=== PATIENT | female | born 1940 | race Caucasian/White ===

== ENCOUNTER 2022-04-14 18:50 | Outpatient (CLI) | payer MEDICARE, OTHER, SELFPAY ==
[2022-04-14 19:52] LABS: Chloride* 100 mmol/L (96-114); Sodium* 134 mmol/L (135-149)
[2022-04-14 19:53] LABS: Potassium* 4.1 mmol/L (3.6-5.1)
[2022-04-14 19:55] LABS: Alanine Aminotransferase* 27 U/L (4-35); Alkaline Phosphatase* 158 U/L (40-150); Aspartate Amino Transferase* 36 U/L (12-35); Bilirubin Total* 0.8 mg/dL (0.1-1.5); Blood Urea Nitrogen* 21 mg/dL (7-30); Carbon Dioxide* 28 mmol/L (20-32); Creatinine* 0.9 mg/dL (0.5-1.5); Estimated Glomerular Filt Rate 64.63; Glucose* 101 mg/dL (60-115); Total Protein* 6.2 g/dL (6.0-8.3)
[2022-04-17 05:49] LABS: Cancer Antigen 125 56 U/mL (<=38)
[2022-04-17 16:12] LABS: Hematocrit 25.9 % (33.0-51.0); Hemoglobin* 8.8 gm/dL (12.0-16.0); Mean Corpuscular HGB Conc 34 gm/dL (32-36); Mean Corpuscular Hemoglobin 44 pg (26-34); Mean Corpuscular Volume 130 fL (80-100); Platelet Count* 246 K/uL (140-440); White Blood Count* 3.37 K/uL (4.50-11.00)
[2022-04-17 16:13] LABS: Basophils Percent Auto 1.8 % (0.0-3.0); Eosinophils Percent Auto 1.2 % (0.0-7.0); Lymphocytes Percent Auto 10.7 % (20-44); Monocytes Percent Auto 12.2 % (0.0-11.0); Neutrophils Percent Auto 74.1 % (42.0-72.0); Slide Review Reflex No
== END 2022-04-14 18:51 | disposition home or self-care (01) ==
DX: C56.9 Malignant neoplasm of unspecified ovary (principal)
CPT/HCPCS: 36415; 80053; 85025; 86304

== ENCOUNTER 2022-07-28 12:20 | Outpatient (RCR) | payer MEDICARE, OTHER, SELFPAY ==
[2022-06-05 13:44] LABS: Albumin* 3.7 g/dL (3.3-5.0); Chloride* 100 mmol/L (96-114); Sodium* 134 mmol/L (135-149)
[2022-06-05 13:46] LABS: Bilirubin Total* 0.6 mg/dL (0.1-1.5); Carbon Dioxide* 27 mmol/L (20-32); Creatinine* 0.7 mg/dL (0.5-1.5); Estimated Glomerular Filt Rate 87 ml/min
[2022-06-05 13:47] LABS: Alanine Aminotransferase* 37 U/L (4-35); Alkaline Phosphatase* 164 U/L (40-150); Aspartate Amino Transferase* 45 U/L (12-35); Blood Urea Nitrogen* 18 mg/dL (7-30); Glucose* 92 mg/dL (60-115); Total Protein* 6.3 g/dL (6.0-8.3)
[2022-06-05 14:00] LABS: Basophils Absolute Auto 0.02 K/uL (0.00-0.30); Basophils Percent Auto 0.4 % (0.0-3.0); Eosinophils Absolute Auto 0.02 K/uL (0.00-0.50); Eosinophils Percent Auto 0.4 % (0.0-7.0); Hematocrit 30.9 % (33.0-51.0); Hemoglobin* 10.1 gm/dL (12.0-16.0); Immature Granulocytes Abs Auto 0.02 K/uL (0.00-0.30); Lymphocytes Percent Auto 6.2 % (20-44); Mean Corpuscular HGB Conc 33 gm/dL (32-36); Mean Corpuscular Hemoglobin 43 pg (26-34); Mean Corpuscular Volume 133 fL (80-100); Monocytes Percent Auto 14.6 % (0.0-11.0); Platelet Count* 263 K/uL (140-440); RDW Coefficient of Variation % 16.1 % (11.5-15.5); Red Blood Count 2.33 m/uL (4.00-5.20)
[2022-06-05 14:02] LABS: Slide Review Reflex No
[2022-06-06 22:27] LABS: Cancer Antigen 125 52 U/mL (<=38)
[2022-07-02 13:37] LABS: Basophils Absolute Auto 0.03 K/uL (0.00-0.30); Basophils Percent Auto 0.6 % (0.0-3.0); Eosinophils Absolute Auto 0.06 K/uL (0.00-0.50); Eosinophils Percent Auto 1.2 % (0.0-7.0); Hematocrit 34.8 % (33.0-51.0); Hemoglobin* 11.4 gm/dL (12.0-16.0); Immature Granulocytes Abs Auto 0.01 K/uL (0.00-0.30); Mean Corpuscular HGB Conc 33 gm/dL (32-36); Mean Corpuscular Hemoglobin 41 pg (26-34); Mean Corpuscular Volume 125 fL (80-100); Monocytes Percent Auto 13.1 % (0.0-11.0); Neutrophils Percent Auto 74.9 % (42.0-72.0); Platelet Count* 241 K/uL (140-440); RDW Coefficient of Variation % 15.8 % (11.5-15.5); Red Blood Count 2.78 m/uL (4.00-5.20); White Blood Count* 4.88 K/uL (4.50-11.00)
[2022-07-02 13:40] LABS: Slide Review Reflex No
[2022-07-02 13:52] LABS: Chloride* 102 mmol/L (96-114); Potassium* 4.2 mmol/L (3.6-5.1); Sodium* 137 mmol/L (135-149)
[2022-07-02 13:54] LABS: Creatinine* 0.6 mg/dL (0.5-1.5); Estimated Glomerular Filt Rate 91 ml/min
[2022-07-02 13:55] LABS: Alanine Aminotransferase* 33 U/L (4-35); Alkaline Phosphatase* 205 U/L (40-150); Aspartate Amino Transferase* 43 U/L (12-35); Bilirubin Total* 0.4 mg/dL (0.1-1.5); Blood Urea Nitrogen* 21 mg/dL (7-30); Carbon Dioxide* 28 mmol/L (20-32); Glucose* 105 mg/dL (60-115); Total Protein* 6.3 g/dL (6.0-8.3)
[2022-07-02 13:56] LABS: Calcium* 9.3 mg/dL (8.4-10.6)
[2022-07-03 19:03] LABS: Cancer Antigen 125 51 U/mL (<=38)
[2022-07-28 12:58] LABS: Albumin* 4.1 g/dL (3.3-5.0)
[2022-07-28 12:59] LABS: Chloride* 102 mmol/L (96-114); Potassium* 4.2 mmol/L (3.6-5.1); Sodium* 137 mmol/L (135-149)
[2022-07-28 13:01] LABS: Alanine Aminotransferase* 29 U/L (4-35); Alkaline Phosphatase* 172 U/L (40-150); Aspartate Amino Transferase* 43 U/L (12-35); Bilirubin Total* 0.5 mg/dL (0.1-1.5); Blood Urea Nitrogen* 24 mg/dL (7-30); Carbon Dioxide* 30 mmol/L (20-32); Cholesterol* 130 mg/dL (90-199); Creatinine* 0.7 mg/dL (0.5-1.5); Estimated Glomerular Filt Rate 87 ml/min; Glucose* 78 mg/dL (60-115); Total Protein* 6.5 g/dL (6.0-8.3); Triglycerides* 58 mg/dL (40-149)
[2022-07-28 13:02] LABS: Calcium* 8.3 mg/dL (8.4-10.6); HDL Cholesterol* 57 mg/dL (>=50); LDL Cholesterol Calculated 61 mg/dL (<100); Magnesium* 1.8 mg/dL (1.5-2.6)
== END 2023-07-03 06:26 | disposition home or self-care (01) ==
LOC: LAB 12:20
DX: C56.9 Malignant neoplasm of unspecified ovary (principal); I10 Essential (primary) hypertension
CPT/HCPCS: 36415; 80048; 80053; 80061; 80076; 83735; 84443; 85025; 86304

== ENCOUNTER 2022-07-28 13:18 | Outpatient (REF) | payer MEDICARE, OTHER, SELFPAY ==
--- OUTSIDE RECORDS SUMMARY | 2022-07-28 13:35 | XMS_ITS | Referral Summary ---
:1940 Author Organization [facility] nter Address [address] [place] [address]- Care Team Providers Name Role Phone Carol Ruff MD Primary Care Physician Encounter EVSA_FIN [id number] Date(s): 11/04/19 - 11/05/19 [facility] [address] [address] [address] [phone] Encounter Diagnosis Embolic stroke (Discharge Diagnosis) - 11/04/19 History of CVA (cerebrovascular accident) (Discharge Diagnosis) - 11/04/19 Popliteal DVT (deep venous thrombosis) (Discharge Diagnosis) - 11/04/19 Hypertension (Discharge Diagnosis) - 11/04/19 Headache in front of head (Discharge Diagnosis) - 11/05/19 Elevated troponin (Discharge Diagnosis) - 11/05/19 Vision changes (Discharge Diagnosis) - 11/05/19 Cerebral infarction due to embolism of unspecified cerebral artery (Discharge Diagnosis) - Metabolic encephalopathy (Discharge Diagnosis) - Chronic embolism and thrombosis of left popliteal vein (Discharge Diagnosis) - Embolism and thrombosis of superficial veins of left lower extremity (Discharge Diagnosis) - Unspecified atrial fibrillation (Discharge Diagnosis) - Migraine, unspecified, not intractable, without status migrainosus (Discharge Diagnosis) - Hyperlipidemia, unspecified (Discharge Diagnosis) - Essential (primary) hypertension (Discharge Diagnosis) - Obstructive sleep apnea (adult) (pediatric) (Discharge Diagnosis) - NIHSS score 0 (Discharge Diagnosis) - Other specified abnormal findings of blood chemistry (Discharge Diagnosis) - Atherosclerotic heart disease of [place] coronary artery without angina pectoris (Discharge Diagnosis) - Presence of right artificial knee joint (Discharge Diagnosis) - Personal history of nicotine dependence (Discharge Diagnosis) - Personal history of transient ischemic attack (TIA), and cerebral infarction without residual deficits (Discharge Diagnosis) - 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 (Discharge Diagnosis) - Discharge Disposition: Home/self care Attending Physician: Aaron Delarosa MD Admitting Physician: Tito Saunders MD Vital Signs Most recent to 1 2 3 4 5 6 7 8 9 oldest [Reference Range]: Living Lives alone Lives alone Lives with children Situation (11/05/19 10:43 AM) (11/05/19 12:15 AM) (11/04/19 8:17 PM) Sensory None None Deficits (11/05/19 12:15 AM) (11/04/19 8:17 PM) Eating Self (11/05/19 12:15 AM) Bathing Self (11/05/19 12:15 AM) Dressing Self (11/05/19 12:15 AM) Transferring Self (11/05/19 12:15 AM) Toileting Self (11/05/19 12:15 AM) Walking Self (11/05/19 12:15 AM) Balancing Self (11/05/19 12:15 AM) Bed alarm on No No (11/05/19 12:57 PM) (11/05/19 8:00 AM) Pain Scale Used Numeric Rating Scale Numeric Rating Scale Numeric Rat ing Scale (11/05/19 12:57 PM) (11/05/19 8:00 AM) (11/04/19 8:17 PM) Face NVPS 1 = Occasional grimace, tearing, frowning, wrinkled forehead (11/05/19 8:00 AM) Temperature PO 36.7 deg C 37 deg C 36.9 deg C 36.6 deg C [36-37.5 deg C] (11/05/19 8:05 AM) (11/05/19 3:05 AM) (11/05/19 12:15 AM) (11/04/19 8:17 PM) Heart Rate 91 bpm 90 bpm 89 bpm 82 bpm 80 bpm 86 bpm 80 bpm 82 bpm 79 bpm [51-119 bpm] (11/05/19 5:00 PM) (11/05/19 11:00 AM) (11/05/19 8:05 AM) ( 3:05 AM) (11/05/19 12:15 AM) (11/04/19 11:00 PM) (11/04/19 10:00 PM) (11/04/19 9:00 PM) (11/04/19 8:17 PM) Blood Pressure 148/90 mm Hg 148/80 mm Hg 153/82 mm Hg 146/82 mm Hg 150 /85 mm Hg 148/60 mm Hg 156/81 mm Hg 158/81 mm Hg 159/88 mm Hg [91-139/50-90 *H* *H* *H* *H* *H* *H* *H* *H* *H* mm Hg] (11/05/19 5:00 PM) (11/05/19 11:00 AM) (11/05/19 8:05 AM) ( 0 3:05 AM) (11/05/19 12:15 AM) (11/04/19 11:00 PM) (11/04/19 10:00 PM) (11/04/19 9:00 PM) (11/04/19 8:17 PM) Resp Rate 16 Breaths/Min 16 Breaths/Min 16 Breaths/Min 18 Breaths/Mi n 18 Breaths/Min 16 Breaths/Min 18 Breaths/Min 16 Breaths/Min 16 Breaths/Min (Monitor) (11/05/19 5:00 PM) (11/05/19 11:00 AM) (11/05/19 8:05 AM) ( 0 3:05 AM) (11/05/19 12:15 AM) (11/04/19 11:00 PM) (11/04/19 10:00 PM) (11/04/19 9:00 PM) (11/04/19 8:17 PM) [13-20 Breaths/Min] SPO2 [87-100 %] 98 % 98 % 98 % 98 % 96 % 97 % 99 % 98 % 9 7 % (11/05/19 5:00 PM) (11/05/19 11:00 AM) (11/05/19 8:05 AM) ( 0 3:05 AM) (11/05/19 12:15 AM) (11/04/19 11:00 PM) (11/04/19 10:00 PM) (11/04/19 9:00 PM) (11/04/19 8:1 7 PM) Oxygen Method Room air Room air (11/05/19 5:00 PM) (11/05/19 11:00 AM) Glucose Level 96 mg/dL [70-99 mg/dL] (11/04/19 8:14 PM) Glucose (POCT) 87 mg/dL 1 Automated (11/04/19 7:59 PM) [70-110 mg/dL] Height 165 cm 165.1 cm (11/05/19 12:15 AM) (11/04/19 8:17 PM) Drug Calc 72.9 kg 73 kg Weight (kg) (11/05/19 12:15 AM) (11/04/19 8:17 PM) Weight Method Actual Actual (11/05/19 12:15 AM) (11/04/19 8:17 PM) BMI 26.78 kg/m2 26.78 kg/m2 (11/05/19 12:15 AM) (11/04/19 8:17 PM) 1Result Comment: Manager Banquet: [id number] FRANCINE VALERA Problem List Condition Effective Dates Status Health Status Informant Stroke(Confirmed) Active Acute embolic stroke(Confirmed) Active Shingles(Confirmed) Active Elevated troponin(Confirmed) Active 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(Confirmed) Acute superficial venous thrombosis of Active left lower extremity(Confirmed) Deep venous thrombosis of left Active popliteal vein(Confirmed) Allergies, Adverse Reactions, Alerts No Known Allergies Medications amLODIPine 2.5 mg oral tablet 1 Tab Tab, PO, qDay, 0, Maintenance Start Date: 10/24/19 Status: Orderedatorvastatin 20 mg oral tablet 1 Tab Tab, PO, qDay, 0, Maintenance Start Date: 10/24/19 Status: OrderedCalcium 600 +D Tab 1 Tab Tab, PO, TID, 0, Maintenance Start Date: 10/25/19 Status: OrderedEliquis 5 mg oral tablet 1 Tab Tab, PO, BID, 0, Maintenance Start Date: 11/05/19 Status: OrderedVitamin B12 50 mcg oral tablet 1 Tab Tab, PO, qDay, 0, Maintenance Start Date: 10/25/19 Status: OrderedVitamin D3 5,000 Unit oral capsule 1 Cap Cap, PO, qDay, 0, with food, Maintenance Start Date: 10/25/19 Status: Ordered Results Most recent to oldest 1 2 3 [Reference Range]: CBC Scan Auto Diff (11/04/19 8:14 PM) Lymphs [10.0-55.0 %] 9.7 % *L* (11/04/19 8:14 PM) Monos. [0.0-15.0 %] 9.3 % (11/04/19 8:14 PM) Baso. [0.0-3.0 %] 1.0 % (11/04/19 8:14 PM) Neuts [35.0-80.0 %] 78.9 % (11/04/19 8:14 PM) Eos. [0.0-9.0 %] 1.1 % (11/04/19 8:14 PM) Glucose Level [70-99 mg/dL] 96 mg/dL (11/04/19 8:14 PM) AST [5-34 Units/L] 36 Units/L *H* (11/04/19 8:14 PM) ABS Neut [1.7-8.6 thousand/uL] 8.8 thousand/uL *H* (11/04/19 8:14 PM) eGFR Non- Am >60 mL/min/1.73m2 *NA* (11/04/19 8:14 PM) eGFR Afr/Amer >60 mL/min/1.73m2 *NA* (11/04/19 8:14 PM) A/G Ratio [0.8-1.6] 1.3 (11/04/19 8:14 PM) ABS Baso [0.0-0.3 thousand/uL] 0.1 thousand/uL (11/04/19 8:14 PM) ABS Eos [0.0-1.0 thousand/uL] 0.1 thousand/uL (11/04/19 8:14 PM) ABS Lymph [0.5-5.9 1.1 thousand/uL thousand/uL] (11/04/19 8:14 PM) ABS [place] [0.0-1.6 thousand/uL] 1.0 thousand/uL (11/04/19 8:14 PM) Albumin [3.4-5.0 gm/dL] 3.5 gm/dL (11/04/19 8:14 PM) Alkphos [40-150 Units/L] 110 Units/L (11/04/19 8:14 PM) ALT [0-55 Units/L] 22 Units/L (11/04/19 8:14 PM) Anion Gap [5-15] 15 (11/04/19 8:14 PM) Bili Total [0.2-1.2 mg/dL] 0.6 mg/dL (11/04/19 8:14 PM) BUN [10-20 mg/dL] 9 mg/dL *L* (11/04/19 8:14 PM) Chloride [98-107 mmol/L] 101 mmol/L (11/04/19 8:14 PM) CO2 [23-31 mmol/L] 25 mmol/L (11/04/19 8:14 PM) Creatinine [0.57-1.11 mg/dL] 0.66 mg/dL (11/04/19 8:14 PM) Globulin [2.5-4.1 gm/dL] 2.7 gm/dL (11/04/19 8:14 PM) Hct [37.0-47.0 %] 38.8 % (11/04/19 8:14 PM) Hgb [11.5-16.0 gm/dL] 13.1 gm/dL (11/04/19 8:14 PM) MCH [27.0-34.0 pg] 31.6 pg (11/04/19 8:14 PM) MCHC [32.0-37.0 gm/dL] 33.7 gm/dL (11/04/19 8:14 PM) MCV [80.0-100.0 fL] 93.9 fL (11/04/19 8:14 PM) Mg [1.6-2.6 mg/dL] 1.6 mg/dL (11/05/19 6:14 AM) Plt [130-400 thousand/uL] 154 thousand/uL (11/04/19 8:14 PM) Protein, Total [6.4-8.3 gm/dL] 6.2 gm/dL *L* (11/04/19 8:14 PM) RBC [4.00-5.40 million/uL] 4.14 million/uL (11/04/19 8:14 PM) RDW [11.5-16.0 %] 13.0 % (11/04/19 8:14 PM) Sodium [134-144 mmol/L] 137 mmol/L (11/04/19 8:14 PM) Troponin I [<=0.30 ng/mL] 0.72 ng/mL 1 0.87 ng/mL 2 0.90 n g/mL 3 *CRIT* *CRIT* *CRIT* (11/05/19 11:34 AM) (11/05/19 6:14 AM) (11/04/19 8:14 PM) WBC [4.8-10.8 thousand/uL] 11.2 thousand/uL *H* (11/04/19 8:14 PM) Potassium [3.5-5.1 mmol/L] 3.7 mmol/L 3.7 mmol/L (11/05/19 6:14 AM) (11/04/19 8:14 PM) Calcium [8.4-10.2 mg/dL] 8.8 mg/dL (11/04/19 8:14 PM) 1Result Comment: Previous critical Troponin called.2Result Comment: Previous critical Troponin called.3Result Comment: Patient Name and Critical test results read back for verification. Critical value called to: RO, @ 11/04/2019 20:47:07 [facility], by DEBORAH. Procedures Procedure Date Related Diagnosis Body Site Status Bladder operation Completed Carcinoma Completed Hysterectomy Completed Knee replacement Completed Plantar fascia1 Completed Rectal fistula Completed Sclerotherapy of varicose vein2 Completed 1Left [id number] Social History Social History Type Response Smoking Status Former smoker, quit more tarik n 30 days ago; Stopped at age: [age]; entered on: 11/04/19 Assessment and Plan Extracted from: Title: neurology Author: Gaurav Rod DO Date: 0 Elevated troponin ?? R79.89 Embolic stroke ?? I63.9 ??New acute showered embolic infarcts c learly cardioembolic this is A. fib??or thrombus??we discussed CVA risk factor management the patient is already maximally treated with Eliquis she started about a week ago ?? Transesophageal echo was recommended to rule out possibility of structural cause??patient is already had a very recent echocardiogram showing a PFO ?? Screen for DVT??for paradoxical embolus with known PFO ?? High intensity statin??blood pressure g oal less than 140/90 Long-term monitor recommended??eval for A. fib ?? Outpatient follow-up with neurology wit h SARAH study ?? CVA order set Headache in front of head ?? R51 History of CVA (cerebrovascular acciden t) ?? Z86.73 Hypertension ?? I10 Neurologic problem ?? [id number] Popliteal DVT (deep venous thrombosis) ?? I82.439 Vision changes ?? H53.9 Orders: atorvastatin, 40 mg, PO, Tab, qHS Routi ne, Start: 11/05/19 21:00:00 MST Extracted from: Title: Cardiology Author: Fili Ness MD Date: 0 #[id number] Seen and examined consult dictated. Extracted from: Title: Discharge Summary Note Author: Aaron Delarosa MD Date: 11/05/19 ?Medications to Continue?? 1. apixaban(Eliquis 5 mg oral tablet) 5 mg= 1 Tab By mouth Tab twice daily?? 2. cyclobenzaprine(cyclobenzaprine 10 mg oral tablet) Special Instructions: TK 1 T PO TID PRN?? 3. atorvastatin(atorvastatin 20 mg oral tablet) 20 mg= 1 Tab By mouth Tab once daily?? 4. amLODIPine(amLODIPine 2.5 mg oral tab let) 2.5 mg= 1 Tab By mouth Tab once daily?? 5. SUMAtriptan(SUMAtriptan 25 mg oral ta blet) 25 mg= 1 Tab By mouth Tab once daily as needed for migraine headache Special Instructions: may repeat dose after 2 hours up to a maximum of 200 mg in 24 hours?? 6. cholecalciferol(Vitamin D3 5,000 Unit oral capsule) 5,000 Unit= 1 Cap By mouth Cap once daily Special Instructions: with food?? 7. calcium-vitamin D(Calcium 600 +D Tab) 1 Tab By mouth Tab three times daily?? 8. cyanocobalamin(Vitamin B12 50 mcg ora l tablet) 50 mcg= 1 Tab By mouth Tab once daily?Discontinued Meds ?Discharge ? Order Details: ?11/05/19 10:05:0 0 MST, Today, Home or self care ?Discharge Diet ? Order Details: ?11/05/19 10:05:0 0 MST, Regular diet ?Discharge Activity ? Order Details: ?11/05/19 10:05:0 0 MST, As tolerated ?Follow-Up Details: ?? Provider/Org Name: ??Carol Ruff MD ?? Within: ??1 to 3 days?? Address: ?;[id number]; ? Provider/Org Name: ??Wilson Mccall MD ?? Within: ??1 week?? Address: ?;[id number]; ? Extracted from: Title: Admission H & P Author: Tito Saunders MD Date: 11/04/19 Acute metabolic encephalopathy with rec ent CVA Troponin leak ?Migraine headache Recent CVA Superficial venous thrombosis Left Popliteal DVT PFO ?? PLAN ?? Recent CVA requiring hospitaliz ation, will?continue Eliquis, statin?? \ Given her hx of CAD and elevated tropon ins?? Given her recent stroke will order a re peat MRI and consult neurology Cardiology consult, Cardiology felt tarik t this was a troponin leak and not related to cardiac in nature.?? ER physician spoke with Dr. Ness, who felt this her baseline Fioricet as needed for migraine headach es she has elevated troponins, and takes sumatriptan will need to hold at this time as it is contraindicated if there is underlying CAD Resume home medications once reconciled . ?? Hospital Discharge Instructions Patient Bjpwuvurf38/01/2020 18:50:55Fall Prevention in the Home, AdultFall Prevention in the Home, Adult Falls can cause injuries and can affect people from all age groups. There are many simple things that you can do to make your home safe and to help prevent falls. Ask for help when making these changes, if needed. What actions can I take to prevent falls? General instructions ??? Use good lighting in all rooms. Replace any light bulbs that burn out. ??? Turn on lights if it is dark. Use night-lights. ??? Place frequently used items in [id number]-[id number] places. Lower the shelves around your home if necessary. ??? Set up furniture so that there are clear paths around it. Avoid moving your furniture around. ??? Remove throw rugs and other tripping hazards from the floor. ??? Avoid walking on wet floors. ??? Fix any uneven floor surfaces. ??? Add color or contrast paint or tape to grab bars and handrails in your home. Place contrasting color strips on the first and last steps of stairways. ??? When you use a stepladder, make sure that it is completely opened and that the sides are firmly locked. Have someone hold the ladder while you are using it. Do not climb a closed stepladder. ??? Be aware of any and all pets. What can I do in the bathroom? Keep the floor dry. Immediately clean up any water that spills onto the floor. ??? Remove soap buildup in the tub or shower on a regular basis. ??? Use non-skid mats or decals on the floor of the tub or shower. ??? Attach bath mats securely with double-sided, non-slip rug tape. ??? If you need to sit down while you are in the shower, use a plastic, non-slip stool. ??? Install grab bars by the toilet and in the tub and shower. Do not use towel bars as grab bars. What can I do in the bedroom? Make sure that a bedside light is easy to reach. ??? Do not use oversized bedding that drapes onto the floor. ??? Have a firm chair that has side arms to use for getting dressed. What can I do in the kitchen? Clean up any spills right away. ??? If you need to reach for something above you, use a sturdy step stool that has a grab bar. ??? Keep electrical cables out of the way. ??? Do not use floor czech or wax that makes floors slippery. If you must use wax, make sure that it is non-skid floor wax. What can I do in the stairways? Do not leave any items on the stairs. ??? Make sure that you have a light switch at the top of the stairs and the bottom of the stairs. Have them installed if you do not have them. ??? Make sure that there are handrails on both sides of the stairs. Fix handrails that are broken orloose. Make sure that handrails are as long as the stairways. ??? Install non-slip stair treads on all stairs in your home. ??? Avoid having throw rugs at the top or bottom of stairways, or secure the rugs with carpet tape to prevent them from moving. ??? Choose a carpet design that does not hide the edge of steps on the stairway. ??? Check any carpeting to make sure that it is firmly attached to the stairs. Fix any carpet that is loose or worn. What can I do on the outside of my home? Use bright outdoor lighting. ??? Regularly repair the edges of walkways and driveways and fix any cracks. ??? Remove high doorway thresholds. ??? Trim any shrubbery on the main path into your home. ??? Regularly check that handrails are securely fastened and in good repair. Both sides of any stepsshould have handrails. ??? Install guardrails along the edges of any raised decks or porches. ??? Clear walkways of debris and clutter, including tools and rocks. ??? Have leaves, snow, and ice cleared regularly. ??? Use sand or salt on walkways during winter months. ??? In the garage, clean up any spills right away, including grease or oil spills. What other actions can I take? Wear closed-toe shoes that fit well and support your feet. Wear shoes that have rubber soles or low heels. ??? Use mobility aids as needed, such as canes, walkers, scooters, and crutches. ??? Review your medicines with your health care provider. Some medicines can cause dizziness or changes in blood pressure, which increase your risk of falling. Talk with your health care provider about other ways that you can decrease your risk of falls. This may include working with a physical therapist or show dog trainer to improve your strength, balance, and endurance. Where to find more information ??? Centers for Disease Control and Prevention, [place]: https://www.cdc.gov ??? [employer]: https://zb9ilbm.guzman.nih.gov Contact a health care provider if: ??? You are afraid of falling at home. ??? You feel weak, drowsy, or dizzy at home. ??? You fall at home. Summary ??? There are many simple things that you can do to make your home safe and to help prevent falls. ??? Ways to make your home safe include removing tripping hazards and installing grab bars in the bathroom. ??? Ask for help when making these changes in your home. This information is not intended to replace advice given to you by your health care provider. Make sure you discuss any questions you have with your health care provider. Document Released: 09/10/2003 Document Revised: 05/05/2018 Document Reviewed: 05/05/2018 [employer] Interactive Patient Education ?? 2019 [employer] Hand Washing, [id number] Washing Germs such as bacteria, viruses, and parasites are found everywhere. They can be in the air and water. They can also be on surfaces like food, door handles, and your skin. Every day, your hands touch germs. Many of these germs can make you and your family sick. Washing your hands is one of the best ways to lower your risk of getting and sharing germs. When should I wash my hands? You should wash your hands whenever you think they are dirty. You should also wash your hands: ??? Before: ? Visiting a baby or anyone with a weakened disease-fighting system (immunesystem). ? Putting in and taking out contact lenses. ??? After: ? Using the bathroom or helping someone else use the bathroom. ? Working or playing outside. ? Touching or taking out the garbage. ? Touching anything dirty around your home. ? Sneezing, coughing, or blowing your nose. ? Using a phone, including your mobile phone. ? Touching an animal, animal food, animal poop, or its toys or leash. ? Touching money. ? Using household inside steward/stewardess or poisonous chemicals. ? Handling dirty clothes, bedding, or rags. ? Using public transportation. ? Going shopping, especially if you use a shopping cart or basket. ? Shaking hands. ? Handling livestock, such as cows or sheep. ??? Before and after: ? Preparing food. ? Eating. ? Visiting or taking care of someone who is sick. This includes touching used tissues, toys, and clothes. ? Changing a bandage (dressing). ? Taking care of an injury or wound. ? Giving or taking medicine. ? Preparing a bottle for a baby. ? Feeding a baby or young child. ? Changing a diaper. What is the right way to wash my hands? 1. Wet your hands with clean, running water. Turn off the water or move your hands out of the running water. 2. Apply liquid soap or bar soap to your hands. 3. Rub your hands together quickly to create lather. 4. Keep rubbing your hands together for at least 20 seconds. Thoroughly scrub all parts of your hands. This includes scrubbing under your fingernails and between your fingers. 5. Rinse your hands with clean, running water. Do this until all the soap is gone. 6. Dry your hands using an air dryer or a clean paper or cloth towel, or let your hands air-dry. Do not use your clothing or a dirty towel to dry your hands. If you are in a public restroom, use your towel: ??? To turn off the water faucet. ??? To open the bathroom door. How can I clean my hands if I do not have soap and water? If soap and clean water are not available, use a hand-washing wipe, spray, or gel (hand hog driver). Use one that contains at least 60% alcohol. If you are handling food, gels are not recommended as a replacement for hand washing with soap and water. To use these products, follow the directions on the product, and: ??? Apply enough product to cover your hands. ??? Make sure you wipe, rub, or spray the product so that it reaches every part of your hands and wrists. Include the backs of your hands, between your fingers, and under your fingernails. ??? Rub the product onto your hands until it dries. Summary ??? Every day, your hands touch germs. Many of these germs can make you and your family sick. ??? Washing your hands is one of the best ways to lower your risk of getting and sharing germs. ??? If soap and clean water are not available, use a hand-washing wipe, spray, or gel. This information is not intended to replace advice given to you by your health care provider. Make sure you discuss any questions you have with your health care provider. Document Released: 09/02/2009 Document Revised: 06/29/2018 Document Reviewed: 06/29/2018 [employer] Interactive Patient Education ?? 2019 [employer]. Smoking Tobacco Information, AdultSmoking Tobacco Information, Adult Smoking tobacco can be harmful to your health. Tobacco contains a poisonous (toxic), colorless chemical called nicotine. Nicotine is addictive. It changes the brain and can make it hard to stop smoking. Tobacco also has other toxic chemicals that can hurt your body and raise your risk of many cancers. How can smoking tobacco affect me? Smoking tobacco puts you at risk for: ??? Cancer. Smoking is most commonly associated with lung cancer, but can also lead to cancer in other parts of the body. ??? Chronic obstructive pulmonary disease (COPD). This is a long-term lung condition that makes it hard to breathe. It also gets worse over time. ??? High blood pressure (hypertension), heart disease, stroke, or heart attack. ??? Lung infections, such as pneumonia. ??? Cataracts. This is when the lenses in the eyes become clouded. ??? Digestive problems. This may include peptic ulcers, heartburn, and gastroesophageal reflux disease (GERD). ??? Oral health problems, such as gum disease and tooth loss. ??? Loss of taste and smell. Smoking can affect your appearance by causing: ??? Wrinkles. ??? Yellow or stained teeth, fingers, and fingernails. Smoking tobacco can also affect your social life, because: ??? It may be challenging to find places to smoke when away from home. Many workplaces, restaurants,hotels, and public places are tobacco-free. ??? Smoking is expensive. This is due to the cost of tobacco and the long-term costs of treating health problems from smoking. ??? Secondhand smoke may affect those around you. Secondhand smoke can cause lung cancer, breathing problems, and heart disease. Children of smokers have a higher risk for: ? Sudden infant syndrome (SIDS). ? Ear infections. ? Lung infections. If you currently smoke tobacco, quitting now can help you: ??? Lead a longer and healthier life. ??? Look, smell, breathe, and feel better over time. ??? Save money. ??? Protect others from the harms of secondhand smoke. What actions can I take to prevent health problems? Quit smoking ??? Do not start smoking. Quit if you already do. ??? Make a plan to quit smoking and commit to it. Look for programs to help you and ask your health care provider for recommendations and ideas. ??? Set a date and write down all the reasons you want to quit. ??? Let your friends and family know you are quitting so they can help and support you. Consider finding friends who also want to quit. It can be easier to quit with someone else, so that you can support each other. ??? Talk with your health care provider about using nicotine replacement medicines to help you quit,such as gum, lozenges, patches, sprays, or pills. ??? Do not replace cigarette smoking with electronic cigarettes, which are commonly called e-cigarettes. The safety of e-cigarettes is not known, and some may contain harmful chemicals. ??? If you try to quit but return to smoking, stay positive. It is common to slip up when you first quit, so take it one day at a time. ??? Be prepared for cravings. When you feel the urge to smoke, chew gum or suck on hard candy. Lifestyle ??? Stay busy and take care of your body. ??? Drink enough fluid to keep your urine pale yellow. ??? Get plenty of exercise and eat a healthy diet. This can help prevent weight gain after quitting. ??? Monitor your eating habits. Quitting smoking can cause you to have a larger appetite than when you smoke. ??? Find ways to relax. Go out with friends or family to a movie or a restaurant where people do notsmoke. ??? Ask your health care provider about having regular tests (screenings) to check for cancer. This may include blood tests, imaging tests, and other tests. ??? Find ways to manage your stress, such as meditation, yoga, or exercise. Where to find support To get support to quit smoking, consider: ??? Asking your health care provider for more information and resources. ??? Taking classes to learn more about quitting smoking. ??? Looking for local organizations that offer resources about quitting smoking. ??? Joining a support group for people who want to quit smoking in your local community. ??? Calling the [employer] [place] counselor helpline: 6-518-Lhfl-Now ( ) Where to find more information You may find more information about quitting smoking from: ??? [employer]org: www.[employer].org ??? Smokefree.gov: smokefree.gov ??? [place] [employer] Association: www.lung.org Contact a health care provider if you: ??? Have problems breathing. ??? Notice that your lips, nose, or fingers turn blue. ??? Have chest pain. ??? Are coughing up blood. ??? Feel faint or you pass out. ??? Have other health changes that cause you to worry. Summary ??? Smoking tobacco can negatively affect your health, the health of those around you, your finances, and your social life. ??? Do not start smoking. Quit if you already do. If you need help quitting, ask your health care provider. ??? Think about joining a support group for people who want to quit smoking in your local community.There are many effective programs that will help you to quit this behavior. This information is not intended to replace advice given to you by your health care provider. Make sure you discuss any questions you have with your health care provider. Document Released: 10/05/2017 Document Revised: 11/09/2018 Document Reviewed: 10/05/2017 [employer] Interactive Patient Education ?? 2019 [employer] Stroke Prevention, [id number] Prevention Some medical conditions and lifestyle choices can lead to a higher risk for a stroke. You can help to prevent a stroke by making nutrition, lifestyle, and other changes. What nutrition changes can be made? Eat healthy foods. ? Choose foods that are high in fiber. These include: ? Fresh fruits. ? Fresh vegetables. ? Whole grains. ? Eat at least 5 or more servings of fruits and vegetables each day. Try to fill half of your plate at each meal with fruits and vegetables. ? Choose lean protein foods. These include: ? Lowfat (lean) cuts of meat. ? Chicken without skin. ? Fish. ? Tofu. ? Beans. ? Nuts. ? Eat low-fat dairy products. ? Avoid foods that: ? Are high in salt (sodium). ? Have saturated fat. ? Have trans fat. ? Have cholesterol. ? Are processed. ? Are premade. ??? Follow eating guidelines as told by your doctor. These may include: ? Reducing how many calories you eat and drink each day. ? Limiting how much salt you eat or drink each day to 1,500 milligrams (mg). ? Using only healthy fats for cooking. These include: ? [place] oil. ? Canola oil. ? [place] oil. ? Counting how many carbohydrates you eat and drink each day. What lifestyle changes can be made? Try to stay at a healthy weight. Talk to your doctor about what a good weight is for you. ??? Get at least 30 minutes of moderate physical activity at least 5 days a week. This can include: ? Fast walking. ? Biking. ? Swimming. ??? Do not use any products that have nicotine or tobacco. This includes cigarettes and e-cigarettes. If you need help quitting, ask your doctor. Avoid being around tobacco smoke in general. ??? Limit how much alcohol you drink to no more than 1 drink a day for non women and 2 drinks a day for men. One drink equals 12 oz of beer, 5 oz of wine, or 1?? oz of hard liquor. ??? Do not use drugs. ??? Avoid taking control pills. Talk to your doctor about the risks of taking control pills if: ? You are over 35 years old. ? You smoke. ? You get migraines. ? You have had a blood clot. What other changes can be made? Manage your cholesterol. ? It is important to eat a healthy diet. ? If your cholesterol cannot be managed through your diet, you may also need to take medicines. Takemedicines as told by your doctor. ??? Manage your diabetes. ? It is important to eat a healthy diet and to exercise regularly. ? If your blood sugar cannot be managed through diet and exercise, you may need to take medicines. Take medicines as told by your doctor. ??? Control your high blood pressure (hypertension). ? Try to keep your blood pressure below 130/80. This can help lower your risk of stroke. ? It is important to eat a healthy diet and to exercise regularly. ? If your blood pressure cannot be managed through diet and exercise, you may need to take medicines. Take medicines as told by your doctor. ? Ask your doctor if you should check your blood pressure at home. ? Have your blood pressure checked every year. Do this even if your blood pressure is normal. ??? Talk to your doctor about getting checked for a sleep disorder. Signs of this can include: ? Snoring a lot. ? Feeling very tired. ??? Take [id number]-[id number] and prescription medicines only as told by your doctor. These may include aspirin or blood thinners (antiplatelets or anticoagulants). ??? Make sure that any other medical conditions you have are managed. Where to find more information ??? [place] [employer] Association: www.strokeassociation.org ??? National Stroke Association: www.stroke.org Get help right away if: ??? You have any symptoms of stroke. BE FAST is an easy way to remember the main warning signs: ? B - Balance. Signs are dizziness, sudden trouble walking, or loss of balance. ? E - Eyes. Signs are trouble seeing or a sudden change in how you see. ? F - Face. Signs are sudden weakness or loss of feeling of the face, or the face or eyelid droopingon one side. ? A - Arms. Signs are weakness or loss of feeling in an arm. This happens suddenly and usually on one side of the body. ? S - Speech. Signs are sudden trouble speaking, slurred speech, or trouble understanding what people say. ? T - Time. Time to call emergency services. Write down what time symptoms started. ??? You have other signs of stroke, such as: ? A sudden, very bad headache with no known cause. ? Feeling sick to your stomach (nausea). ? Throwing up (vomiting). ? Jerky movements you cannot control (seizure). These symptoms may represent a serious problem that is an emergency. Do not wait to see if the symptoms will go away. Get medical help right away. Call your local emergency services (911 in the [place] Do not drive yourself to the hospital. Summary ??? You can prevent a stroke by eating healthy, exercising, not smoking, drinking less alcohol, and treating other health problems, such as diabetes, high blood pressure, or high cholesterol. ??? Do not use any products that contain nicotine or tobacco, such as cigarettes and e-cigarettes. ??? Get help right away if you have any signs or symptoms of a stroke. This information is not intended to replace advice given to you by your health care provider. Make sure you discuss any questions you have with your health care provider. Document Released: 03/21/2013 Document Revised: 12/22/2017 Document Reviewed: 12/22/2017 [employer] Interactive Patient Education ?? 2019 [employer]. Follow Up Care11/04/2019 18:50:55With:Wilson Mccall MD Address: [phone] When:1 weekWith:Carol Ruff MD Address: [phone] When:1 to 3 days
--- OUTSIDE RECORDS SUMMARY | 2022-07-28 13:35 | XMS_ITS | Referral Summary ---
:1940 Author Organization [facility] nter Address [address] [place] [address]- Care Team Providers Name Role Phone Carol Ruff MD Primary Care Physician Encounter EVSA_FIN [id number] Date(s): 10/24/19 - 10/26/19 [facility] [address] [place] [address] [phone] Encounter Diagnosis HLD (hyperlipidemia) (Discharge Diagnosis) - 10/25/19 Stroke (Discharge Diagnosis) - 10/25/19 Elevated troponin (Discharge Diagnosis) - 10/25/19 HTN (hypertension) (Discharge Diagnosis) - 10/25/19 Dysarthria (Discharge Diagnosis) - 10/25/19 Acute embolic stroke (Discharge Diagnosis) - 10/25/19 Acute superficial venous thrombosis of left lower extremity (Discharge Diagnosis) - 10/26/19 Deep venous thrombosis of left popliteal vein (Discharge Diagnosis) - 10/26/19 Discharge Disposition: Home/self care Attending Physician: Isaiah Rossi MD Admitting Physician: Isaiah Rossi MD Vital Signs Most recent to 1 2 3 4 5 6 7 8 9 10 oldest [Reference Range]: Living Lives alone Lives alone Lives alone Situation (10/26/19 2:10 PM) (10/25/19 9:45 AM) (10/25/19 1:02 AM) Current Home None Treatments (10/26/19 10:27 AM) Sensory None None None Deficits (10/26/19 10:27 AM) (10/25/19 1:02 AM) (10/24/19 8:08 PM) Eating Self Self (10/26/19 10:27 AM) (10/25/19 1:02 AM) Bathing Self Self (10/26/19 10:27 AM) (10/25/19 1:02 AM) Dressing Self Self (10/26/19 10:27 AM) (10/25/19 1:02 AM) Transferring Self Self (10/26/19 10:27 AM) (10/25/19 1:02 AM) Toileting Self Self (10/26/19 10:27 AM) (10/25/19 1:02 AM) Walking Self Self (10/26/19 10:27 AM) (10/25/19 1:02 AM) Balancing Self Self (10/26/19 10:27 AM) (10/25/19 1:02 AM) Current Living Home/Independent Environment (10/26/19 10:27 AM) Lives In (SW) Single level home (10/26/19 10:27 AM) Lives With (SW) Alone (10/26/19 10:27 AM) Bed alarm on No No No (10/26/19 4:00 AM) (10/26/19 12:00 AM) (10/25/19 8:00 PM) Pain Scale Used Numeric Rating Scale (10/24/19 8:08 PM) Temperature PO 36.5 deg C 36.6 deg C 36.8 deg C 36.5 deg C 36.8 deg C 36.4 deg C 37.0 deg C 36.6 deg C 36.5 deg C 36.7 deg C [36-37.5 deg C] (10/26/19 12:00 PM) (10/26/19 7:00 AM) (10/26/19 3:29 AM) (10/25/19 11:18 PM) (10/25/19 7:54 PM) (10/25/19 5:00 PM) (10/25/19 7:00 AM) (10/25/19 4 :00 AM) (10/25/19 1:00 AM) (10/24/19 8:08 PM) Heart Rate 82 bpm 92 bpm 79 bpm 87 bpm 86 bpm 94 bpm 87 bpm 89 bpm 91 bpm 90 bpm [51-119 bpm] (10/26/19 7:00 AM) (10/26/19 4:00 AM) (10/26/19 3:29 AM) (10/25/19 11:18 PM) (10/25/19 7:54 PM) (10/25/19 5:00 PM) (10/25/19 1:30 PM) (10/25/19 1 :00 PM) (10/25/19 12:30 PM) (10/25/19 12:00 PM) Blood Pressure 132/76 mm Hg 154/82 mm Hg 127/76 mm Hg 141/74 mm Hg 149 /87 mm Hg 167/85 mm Hg 140/86 mm Hg 142/89 mm Hg 145/87 mm Hg 141/83 mm Hg [91-139/50-90 (10/26/19 12:00 PM) *H* (10/26/19 3:29 AM) *H* *H* *H* *H* *H* *H* *H* mm Hg] (10/26/19 7:00 AM) (10/25/19 11:18 PM) ( 7:54 PM) (10/25/19 5:00 PM) (10/25/19 1:30 PM) (10/25/19 1:00 PM) (10/25/19 12:30 PM) (10/25/19 12:00 PM) Resp Rate 18 Breaths/Min 18 Breaths/Min 18 Breaths/Min 18 Breaths/Mi n 18 Breaths/Min 16 Breaths/Min 16 Breaths/Min 18 Breaths/Min 18 Breaths/Min 17 Breaths/Min (Monitor) (10/26/19 12:00 PM) (10/26/19 7:00 AM) (10/26/19 3:29 AM) (10/25/19 11:18 PM) (10/25/19 7:54 PM) (10/25/19 7:00 AM) (10/25/19 4:00 AM) (10/25/19 1:00 AM) (10/24/19 10:38 PM) (10/24/19 9:26 PM) [13-20 Breaths/Min] SPO2 [87-100 %] 97 % 98 % 100 % 96 % 95 % 99 % 96 % 98 % 99 % 98 % (10/26/19 12:00 PM) (10/26/19 7:00 AM) (10/26/19 4:00 AM) ( 3:29 AM) (10/25/19 11:18 PM) (10/25/19 7:54 PM) (10/25/19 5:00 PM) (10/25/19 1:30 PM) (10/25/19 1:00 PM) (10/25/19 12:30 PM) Oxygen Method Room air Room air Room air Room air Room air Room air Room air Room air Room air Room air (10/26/19 12:00 PM) (10/26/19 7:00 AM) (10/26/19 3:29 AM) ( 11:18 PM) (10/25/19 7:54 PM) (10/25/19 5:00 PM) (10/25/19 1:30 PM) (10/25/19 1:00 PM) (10/25/19 12:30 PM) (10/25/19 12:00 PM) Glucose Level 102 mg/dL 86 mg/dL [70-99 mg/dL] *H* (10/24/19 9:47 PM) (10/25/19 1:53 AM) Glucose (POCT) 113 mg/dL 1 101 mg/dL 2 102 mg/dL 3 Automated *H* (10/25/19 4:32 AM) (10/25/19 1:08 AM) [70-110 mg/dL] (10/25/19 9:45 PM) Height 165.1 cm 165.1 cm (10/25/19 1:02 AM) (10/24/19 8:08 PM) Drug Calc 72.93 kg 72.93 kg Weight (kg) (10/25/19 1:02 AM) (10/24/19 8:08 PM) Weight Method Actual Actual (10/25/19 1:02 AM) (10/24/19 8:08 PM) BMI 26.76 kg/m2 26.76 kg/m2 (10/25/19 1:02 AM) (10/24/19 8:08 PM) 1Result Comment: NOTIFIED KIM OCONNOR MD~Pediatric Neurologist: [id number] GIPP [id number] Comment: Pediatric Neurologist: [id number] GIPP [id number] Comment: Pediatric Neurologist: [id number] GIPP SOLITARIO Problem List Condition Effective Dates Status Health Status Informant Stroke(Confirmed) Active Acute embolic stroke(Confirmed) Active Elevated troponin(Confirmed) Active Acute superficial venous thrombosis of Active left lower extremity(Confirmed) Deep venous thrombosis of left Active popliteal vein(Confirmed) Allergies, Adverse Reactions, Alerts No Known Allergies Medications amLODIPine 2.5 mg oral tablet 1 Tab Tab, PO, qDay, Qty: 30 Tab, 0, Maintenance Start Date: 10/24/19 Status: Orderedatorvastatin 20 mg oral tablet 1 Tab Tab, PO, qDay, Qty: 30 Tab, 0, Maintenance Start Date: 10/24/19 Status: OrderedCalcium 600 +D Tab 1 Tab Tab, PO, TID, 90 Tab, 0, Maintenance Start Date: 10/25/19 Status: Orderedcyclobenzaprine 10 mg oral tablet TK 1 T PO TID PRN Start Date: 10/24/19 Status: OrderedEliquis 5 mg oral tablet See Instructions, Tab, Qty: 70 Tab, 0, 2 Tab PO BID x 7 days then 1 PO BID thereafter, Maintenance, Route to Pharmacy Electronically, [id number] Start Date: 10/26/19 Status: OrderedOutpatient ST Outpatient ST, See Instructions, 1 Each, 0, 0, 10/26/19 14:02:00 MST, ST eval and tx for aphasia, cognition 3 x per week for 4 weeks, [id number], Maintenance, Print Requisition Start Date: 10/26/19 Status: OrderedSUMAtriptan 25 mg oral tablet 1 Tab Tab, PO, qDay, PRN, as needed for migraine headache, Qty: 18 Tab, 0, may repeat dose after 2 hours up to a maximum of 200 mg in 24 hours, Maintenance Start Date: 10/24/19 Status: OrderedVitamin B12 50 mcg oral tablet 1 Tab Tab, PO, qDay, Qty: 30 Tab, 0, Maintenance Start Date: 10/25/19 Status: OrderedVitamin D3 5,000 Unit oral capsule 1 Cap Cap, PO, qDay, Qty: 100 Cap, 0, with food, Maintenance Start Date: 10/25/19 Status: Ordered Results Most recent to oldest [Reference Range]: 1 2 CBC Scan Auto Diff Auto Diff (10/25/19 1:53 AM) (10/24/19 9:47 PM) Lymphs [10.0-55.0 %] 17.0 % 17.3 % (10/25/19 1:53 AM) (10/24/19 9:47 PM) Monos. [0.0-15.0 %] 11.8 % 11.9 % (10/25/19 1:53 AM) (10/24/19 9:47 PM) Baso. [0.0-3.0 %] 1.1 % 0.9 % (10/25/19 1:53 AM) (10/24/19 9:47 PM) Neuts [35.0-80.0 %] 67.2 % 67.3 % (10/25/19 1:53 AM) (10/24/19 9:47 PM) Eos. [0.0-9.0 %] 2.9 % 2.6 % (10/25/19 1:53 AM) (10/24/19 9:47 PM) Glucose Level [70-99 mg/dL] 102 mg/dL 86 mg/dL *H* (10/24/19 9:47 PM) (10/25/19 1:53 AM) Estimated Average Glucose 105 mg/dL *NA* (10/25/19 1:53 AM) AST [5-34 Units/L] 30 Units/L (10/24/19 9:47 PM) ABS Neut [1.7-8.6 thousand/uL] 4.5 thousand/uL 4.9 thous and/uL (10/25/19 1:53 AM) (10/24/19 9:47 PM) TSH [0.350-4.940 uIU/mL] 3.569 uIU/mL (10/25/19 1:53 AM) eGFR Non- Am >60 mL/min/1.73m2 >60 mL/min/1.73m2 *NA* *NA* (10/25/19 1:53 AM) (10/24/19 9:47 PM) eGFR Afr/Amer >60 mL/min/1.73m2 >60 mL/min/1.73m2 *NA* *NA* (10/25/19 1:53 AM) (10/24/19 9:47 PM) A/G Ratio [0.8-1.6] 1.1 (10/24/19 9:47 PM) ABS Baso [0.0-0.3 thousand/uL] 0.1 thousand/uL 0.1 thous and/uL (10/25/19 1:53 AM) (10/24/19 9:47 PM) ABS Eos [0.0-1.0 thousand/uL] 0.2 thousand/uL 0.2 thousa nd/uL (10/25/19 1:53 AM) (10/24/19 9:47 PM) ABS Lymph [0.5-5.9 thousand/uL] 1.1 thousand/uL 1.3 thou sand/uL (10/25/19 1:53 AM) (10/24/19 9:47 PM) ABS [place] [0.0-1.6 thousand/uL] 0.8 thousand/uL 0.9 thous and/uL (10/25/19 1:53 AM) (10/24/19 9:47 PM) Albumin [3.4-5.0 gm/dL] 3.4 gm/dL (10/24/19 9:47 PM) Alkphos [40-150 Units/L] 111 Units/L (10/24/19 9:47 PM) ALT [0-55 Units/L] 20 Units/L (10/24/19 9:47 PM) Anion Gap [5-15] 12 13 (10/25/19 1:53 AM) (10/24/19 9:47 PM) Bili Total [0.2-1.2 mg/dL] 0.4 mg/dL (10/24/19 9:47 PM) BUN [10-20 mg/dL] 8 mg/dL 10 mg/dL *L* (10/24/19 9:47 PM) (10/25/19 1:53 AM) Chloride [98-107 mmol/L] 104 mmol/L 101 mmol/L (10/25/19 1:53 AM) (10/24/19 9:47 PM) CO2 [23-31 mmol/L] 25 mmol/L 27 mmol/L (10/25/19 1:53 AM) (10/24/19 9:47 PM) Creatinine [0.57-1.11 mg/dL] 0.59 mg/dL 0.62 mg/dL (10/25/19 1:53 AM) (10/24/19 9:47 PM) Globulin [2.5-4.1 gm/dL] 3.0 gm/dL (10/24/19 9:47 PM) Hct [37.0-47.0 %] 35.9 % 38.9 % *L* (10/24/19 9:47 PM) (10/25/19 1:53 AM) Hgb [11.5-16.0 gm/dL] 12.2 gm/dL 13.3 gm/dL (10/25/19 1:53 AM) (10/24/19 9:47 PM) HgbA1C [4.5-6.2 %] 5.3 % (10/25/19 1:53 AM) MCH [27.0-34.0 pg] 32.0 pg 32.3 pg (10/25/19 1:53 AM) (10/24/19 9:47 PM) MCHC [32.0-37.0 gm/dL] 34.1 gm/dL 34.3 gm/dL (10/25/19 1:53 AM) (10/24/19 9:47 PM) MCV [80.0-100.0 fL] 93.8 fL 94.1 fL (10/25/19 1:53 AM) (10/24/19 9:47 PM) Mg [1.6-2.6 mg/dL] 1.9 mg/dL (10/24/19 9:47 PM) Plt [130-400 thousand/uL] 171 thousand/uL 181 thousand/u L (10/25/19 1:53 AM) (10/24/19 9:47 PM) Protein, Total [6.4-8.3 gm/dL] 6.4 gm/dL (10/24/19 9:47 PM) RBC [4.00-5.40 million/uL] 3.82 million/uL 4.13 million/ uL *L* (10/24/19 9:47 PM) (10/25/19 1:53 AM) RDW [11.5-16.0 %] 13.5 % 13.2 % (10/25/19 1:53 AM) (10/24/19 9:47 PM) Sodium [134-144 mmol/L] 137 mmol/L 137 mmol/L (10/25/19 1:53 AM) (10/24/19 9:47 PM) Troponin I [<=0.30 ng/mL] 0.77 ng/mL 1 0.83 ng/mL 2 *CRIT* *CRIT* (10/25/19 1:53 AM) (10/24/19 9:47 PM) WBC [4.8-10.8 thousand/uL] 6.7 thousand/uL 7.3 thousand/ uL (10/25/19 1:53 AM) (10/24/19 9:47 PM) Potassium [3.5-5.1 mmol/L] 3.9 mmol/L 4.0 mmol/L (10/25/19 1:53 AM) (10/24/19 9:47 PM) Calcium [8.4-10.2 mg/dL] 8.6 mg/dL 9.2 mg/dL (10/25/19 1:53 AM) (10/24/19 9:47 PM) 1Result Comment: Previous critical Troponin called.2Result Comment: Patient Name and Critical test results read back for verification. Critical value called to: Jigna, @ 10/24/2019 22:23:23 MST, by josé. Procedures Procedure Date Related Diagnosis Body Site Status Bladder operation Completed Carcinoma Completed Hysterectomy Completed Knee replacement Completed Plantar fascia1 Completed Rectal fistula Completed Sclerotherapy of varicose vein2 Completed 1Left [id number] Social History Social History Type Response Smoking Status Former smoker, quit more tarik n 30 days ago; Stopped at age: [age]; entered on: 10/24/19 Assessment and Plan Extracted from: Title: Neuro Consultation Author: Gaurav Sharma DO Date: 10/25/19 Patient: JOSEPH VALDIVIA MRN: [id number](EV) Age: 79 years Sex: F : 1940 Associated Diagnoses: None Author: Gaurav Sharma DO Admission Information Date of Service: 10/25/2019 13:48. 10/25/2019 1:02 MST Several strokes in v arious parts of brain. Source of history: Self, nursing, chart review and participating physicians. Analytical Lab Technician: Gaurav Sharma DO. History of Present Illness This is a very pleasant 79 yo RH Cauc[place] an female that presents to the hospital due to an abnormal MRI of the brain. The patient states that she was having some difficulty at the end of last week with w ord finding and fluency of speech. She h ad an outpatient MRI of the brain that showed an embolic stroke in the left MCA territory. Patient states that she had a headache in the bifrontal region that was moderate in intensity. This is been int ermittent she has had most of the time headache free. She denies any chest pain, palpitations, shortness of breath, nausea, vomiting or abdominal pain. She is exp eriencing lightheadedness, vertigo, jacques ges in vision, problems swallowing or any focal weakness, numbness or tingling in her arms or legs. No reports of loss of consciousness or seizure-like activity. No recent sick contacts, fever, chills o r night sweats. She was [facility] by [facility] He recommended for her to come to the emergency room for urgent chelle luation for embolic stroke of undetermin ed source. Histories Past Medical History: Basal cell carcino ma, hypertension, migraine, hyperlipidemia Procedure history: Bladder operation (9509910014). Plantar fascia ([id number]). Comments: 10/25/2019 2:14 Reuben Lomas RN Tr aveler Left foot Sclerotherapy of varicose vein ([id number]). Comments: 10/25/2019 2:15 Reuben Lomas RN Tr aveler Bilateral Knee replacement ([id number]). Rectal fistula ([id number]). Hysterectomy (511387086). Carcinoma (303343760). Family History: Negative for stroke or a ny other neurological disorders Social History Denies alcohol, tobacco and drug use. She quit smoking back in 1979. Health Status Allergies: Allergies (1) Active Reaction NKA None Documented Current medications: Home Meds Home Medications (9) Active amLODIPine 2.5 mg oral tablet 2.5 mg = 1 Tab, PO, qDay atorvastatin 20 mg oral tablet 20 mg = 1 Tab, PO, qDay biotin , PO, Daily Calcium 600 +D Tab 1 Tab, PO, TID cyclobenzaprine 10 mg oral tablet glucosamine hydrochloride 1500 mg oral t ablet 1,500 mg = 1 Tab, PO, qDay SUMAtriptan 25 mg oral tablet 25 mg = 1 Tab, PRN, PO, qDay Vitamin B12 50 mcg oral tablet 50 mcg = 1 Tab, PO, qDay Vitamin D3 5,000 Unit oral capsule 5,000 Unit = 1 Cap, PO, qDay VS/Measurements Last Documented Vital Signs Vital Signs (Most Recent ) Temp PO Heart Rate Resp Rate 37.0 90 16 (10/25 07:00) (10/25 12:00) (10/25 07:00 ) Non Invasive BP NIBP Mean AdmitWeight C urrentWeight BMI 141 / 83 103 72.93 72.93 26.76 (10/25 12:00) (10/25 04:00) (10/24 20:0 8) (10/25 01:02) (10/25 01:02) Ventilation SaO2 97 (10/25 12:00) Review of Systems 10 point review of systems was completed and is negative excluding the ones mentioned in the HPI. Physical Examination General: No acute distress. Orientation: To person, To place, To ti me, situation, Alert. Eye: Fundoscopic examination attempted t issac unable to visualize optic disc OU.. Respiratory: Lungs are clear to ausculta tion. Cardiovascular: Regular rate and rhythm. No carotid bruits auscultated.. Gastrointestinal: Soft, Non-tender, Non- distended, Normal bowel sounds. Musculoskeletal: Full range of motion wi th passive movement in all four extremities.. Neurologic: Mental Status: Memory and la nguage are intact. The patient has a good fund of knowledge and is appropriate. Cranial Nerves: CN 2 - 12 intact excluding slight flattening of the nasolabial fol d on the left. No facial asymmetry with sensory testing. Hearing is intact to conversational tones. Motor: Strength is full and symmetric. Tone and bulk are normal. There is no pronator drift. Sensory: Pinprick and light touch are full and sy mmetric. Coordination: There is no dysmetria or tremor. Reflexes: DTR 1+ upper and lower extremities bilaterally. No abnormal plantar responses. Gait: Normal. Oth er: There are no visual field deficits, nystagmus or dysarthria. Psychiatric: Cooperative, Appropriate mo od & affect, Patient does not appear anxious. . Review / Management Results Review: Lab results 10/25/2019 4:32 MST Glucose (POCT) Automated 101 mg/dL Normal 10/25/2019 1:53 MST WBC 6.7 thousand/uL Normal RBC 3.82 million/uL L Hgb 12.2 gm/dL Normal Hct 35.9 % L MCV 93.8 fL Normal MCH 32.0 pg Normal MCHC 34.1 gm/dL Normal RDW 13.5 % Normal Plt 171 thousand/uL Normal Neuts 67.2 % Normal Lymphs 17.0 % Normal Monos. 11.8 % Normal Eos. 2.9 % Normal Baso. 1.1 % Normal ABS Neut 4.5 thousand/uL Normal ABS Lymph 1.1 thousand/uL Normal ABS [place] 0.8 thousand/uL Normal ABS Eos 0.2 thousand/uL Normal ABS Baso 0.1 thousand/uL Normal CBC Scan Auto Diff Sodium 137 mmol/L Normal Potassium 3.9 mmol/L Normal Chloride 104 mmol/L Normal CO2 25 mmol/L Normal Anion Gap 12 Normal Glucose Level 102 mg/dL H BUN 8 mg/dL L Creatinine 0.59 mg/dL Normal eGFR Non- Am >60 mL/min/1.73m2 NA eGFR Afr/Amer >60 mL/min/1.73m2 NA Calcium 8.6 mg/dL Normal Troponin I 0.77 ng/mL CRIT Cholesterol 198 mg/dL Normal Triglycerides 122 mg/dL Normal HDL 52 mg/dL L LDL 122 mg/dL Normal VLDL 24 mg/dL Normal LDL/HDL 2 NA Chol/Trig 1.62 NA %HDL 26.3 % NA Cholesterol/HDL 4 NA TSH 3.569 uIU/mL Normal HgbA1C 5.3 % Normal Estimated Average Glucose 105 mg/dL NA 10/25/2019 1:08 [facility] Glucose (POCT) Automated 102 mg/dL Normal 10/24/2019 21:47 MST WBC 7.3 thousand/uL Normal RBC 4.13 million/uL Normal Hgb 13.3 gm/dL Normal Hct 38.9 % Normal MCV 94.1 fL Normal MCH 32.3 pg Normal MCHC 34.3 gm/dL Normal RDW 13.2 % Normal Plt 181 thousand/uL Normal Neuts 67.3 % Normal Lymphs 17.3 % Normal Monos. 11.9 % Normal Eos. 2.6 % Normal Baso. 0.9 % Normal ABS Neut 4.9 thousand/uL Normal ABS Lymph 1.3 thousand/uL Normal ABS [place] 0.9 thousand/uL Normal ABS Eos 0.2 thousand/uL Normal ABS Baso 0.1 thousand/uL Normal CBC Scan Auto Diff INR 1.24 NA PT 14.1 sec H PTT 29.9 sec Normal Sodium 137 mmol/L Normal Potassium 4.0 mmol/L Normal Chloride 101 mmol/L Normal CO2 27 mmol/L Normal Anion Gap 13 Normal Glucose Level 86 mg/dL Normal BUN 10 mg/dL Normal Creatinine 0.62 mg/dL Normal eGFR Non- Am >60 mL/min/1.73m2 NA eGFR Afr/Amer >60 mL/min/1.73m2 NA Calcium 9.2 mg/dL Normal Mg 1.9 mg/dL Normal Protein, Total 6.4 gm/dL Normal Albumin 3.4 gm/dL Normal Globulin 3.0 gm/dL Normal A/G Ratio 1.1 Normal Bili Total 0.4 mg/dL Normal ALT 20 Units/L Normal AST 30 Units/L Normal Alkphos 111 Units/L Normal Troponin I 0.83 ng/mL CRIT . Radiology Results Radiologist's interpretation Name: JOSEPH VALDIVIA Account: [id number] : 1940 Result Date: 10/24/19 20:54 Verified By: Des Ace MD at 10/25/19 09:43 Report : XR Chest 1 View Portable IMPRESSION:No acute cardiopulmonary abno rmality. 10/25/19 09:42 ++++++++++++++++++++++++++++++++++++++++ +++++++++++++++ Impression and Plan Diagnosis Acute embolic stroke ([id number] I63.9, Bri escalera, Medical). Plan: The patients history, neurological examination, and neuroimaging are all consistent with an acute embolic stroke from an undetermined source. I discussed the case with the patients outpatient neur ologist last night. He informed me of th e MRI findings. I have ordered a CTA head and neck to evaluate for potential thromboembolic source. The patient had a AMBER. There was no intracardiac thrombus iden tified. She has a small PFO. I have adde d lower extremity venous duplex. The patient does not have a history of PAF but will need to follow with cardiology for prolonged cardiac monitoring if there is n ot any evidence of an arrhythmia during the hospital stay. ESUS alone is not an indication for anticoagulation. The patient will be given ASA 325mg daily for now. She will continue with statin. LDL goal is less then 70. I recommend to treat b lood pressure according to the current JNC guidelines for comorbidities. Blood glucose will need to be tightly monitored. Goal HbA1c < 7. PT, OT, ST evaluate a nd treat. SCDs for DVT prophylaxis. The patient will need to be evaluated by Sleep Medicine for SARAH. This has been shown to be an independent risk factor for ischemic strokes. I discussed the case with admitting physician and nursing. I will continue to follow the patient with serial neurological examinations during her hospital stay. I will review the work up once complete and give further recommenda tions if indicated at that time. I discu ssed the plan in detail with the patient and answered her questions at bedside. Thank you for allowing me to participate in the care of this patient. Gaurav Sharma D.O. Neurohospitalist [facility]. Pt Care Time: [id number]-[id number] time with the patient including history of present illness, physical examination, reviewing labs and neuroimaging, and discussing the options and plan with the patient, flyin g and participating physicians > 65 aliya marcelle. Greater than 50% of this time was spent in direct patient counseling and coordination of care (end time 1355). Problem list: All Problems Stroke / [id number] / Confirmed Elevated troponin / [id number] / Confirme d. Addendum by Gaurav Sharma DO on October The patient has a DVT. I discussed the case 2019 13:58 MST with the admitting physician . I have recommended for her to be di scharge home on a NOAC and discontinue antip latelet therapy. She will follow up with her neurologist Dr. Mccall next week. Extracted from: Title: Cardiology Author: Fili Ness MD Date: #[id number] AMBER today. Extracted from: Title: Admission H & P Author: Sylvia Ackerman NP Date: 1. Acute CVA - asa, statin - MRI brain completed + for multiple ar eas of stroke (concern for embolic in nature) - U/S carotid done as an OP on 10/22/19 - no significant stenosis - lipid panel - check TSH - ECHO + bubble in AM - Neuro checks - NIHSS - Neuro consult in AM - routine - Regular diet - passed swallow exam - PT/OT/ST in am - event occurred 4 days ago- keep systo lic under 150 ?? 2. Migraines - sumatriptan ?? 3. HLD - statin ?? 4. HTN - amlodipine ?? 5. Elevated troponin level - 12 lead EKG - no chest pain - replace lytes.?? Keep K+ 4.0 and Mg 2 .0 - trend troponin - consult cardiology in AM - ECHO in AM - keep NPO after MN ?? 6. VTE - SCDs ? Code status: Full Code 1123F/G8427 ?? ALOS >2 midnights, neuro consult, ca rdiology consult, trend troponins, ECHO in AM.?? May need cath? Addendum by Celso Kee DO on October 25, 2019 04:11:16 MST Pt presented with headache, confusion, and expressive aphasia. Outside MRI by Dr. Mccall confirmed bilateral stroke. PMH: skin cancer A: Bilateral stroke, concern ing for embolic type, elevated trop, HTN/HLP P: Continue aspirin and stat in. Tele monitoring for afib. Cs Neuro. I have read the medical charles rd of this patient. I approve the care and treatment provided to this patient by the Nurse Practitioner. I also approve any history & physical, discharge summary, and all verbal and written orders f or the patient provided by the Nurse Practitioner. Hospital Discharge Instructions Patient Rstnflpno66/21/2020 18:17:57Fall Prevention in the Home, Adult, Sehq-ke-MutvRxeh Prevention in the Home, Adult Falls can cause injuries. They can happen to people of all ages. There are many things you can do tomake your home safe and to help prevent falls. Ask for help when making these changes, if needed. What actions can I take to prevent falls? General Instructions ??? Use good lighting in all rooms. Replace any light bulbs that burn out. ??? Turn on the lights when you go into a dark area. Use night-lights. ??? Keep items that you use often in gfid-ab-rvvgv places. Lower the shelves around your home if necessary. ??? Set up your furniture so you have a clear path. Avoid moving your furniture around. ??? Do not have throw rugs and other things on the floor that can make you trip. ??? Avoid walking on wet floors. ??? If any of your floors are uneven, fix them. ??? Add color or contrast paint or tape to clearly pepe and help you see: ? Any grab bars or handrails. ? First and last steps of stairways. ? Where the edge of each step is. ??? If you use a stepladder: ? Make sure that it is fully opened. Do not climb a closed stepladder. ? Make sure that both sides of the stepladder are locked into place. ? Ask someone to hold the stepladder for you while you use it. ??? If there are any pets around you, be aware of where they are. What can I do in the bathroom? Keep the floor dry. Clean up any water that spills onto the floor as soon as it happens. ??? Remove soap buildup in the tub or shower regularly. ??? Use non-skid mats or decals on the floor of the tub or shower. ??? Attach bath mats securely with double-sided, non-slip rug tape. ??? If you need to sit down in the shower, use a plastic, non-slip stool. ??? Install grab bars by the toilet and in the tub and shower. Do not use towel bars as grab bars. What can I do in the bedroom? Make sure that you have a light by your bed that is easy to reach. ??? Do not use any sheets or blankets that are too big for your bed. They should not hang down onto the floor. ??? Have a firm chair that has side arms. You can use this for support while you get dressed. What can I do in the kitchen? Clean up any spills right away. ??? If you need to reach something above you, use a strong step stool that has a grab bar. ??? Keep electrical cords out of the way. ??? Do not use floor greek or wax that makes floors slippery. If you must use wax, use non-skid floor wax. What can I do with my stairs? Do not leave any items on the stairs. ??? Make sure that you have a light switch at the top of the stairs and the bottom of the stairs. Ifyou do not have them, ask someone to add them for you. ??? Make sure that there are handrails on both sides of the stairs, and use them. Fix handrails thatare broken or loose. Make sure that handrails are as long as the stairways. ??? Install non-slip stair treads on all stairs in your home. ??? Avoid having throw rugs at the top or bottom of the stairs. If you do have throw rugs, attach them to the floor with carpet tape. ??? Choose a carpet that does not hide the edge of the steps on the stairway. ??? Check any carpeting to make sure that it is firmly attached to the stairs. Fix any carpet that is loose or worn. What can I do on the outside of my home? Use bright outdoor lighting. ??? Regularly fix the edges of walkways and driveways and fix any cracks. ??? Remove anything that might make you trip as you walk through a door, such as a raised step or threshold. ??? Trim any bushes or trees on the path to your home. ??? Regularly check to see if handrails are loose or broken. Make sure that both sides of any steps have handrails. ??? Install guardrails along the edges of any raised decks and porches. ??? Clear walking paths of anything that might make someone trip, such as tools or rocks. ??? Have any leaves, snow, or ice cleared regularly. ??? Use sand or salt on walking paths during winter. ??? Clean up any spills in your garage right away. This includes grease or oil spills. What other actions can I take? Wear shoes that: ? Have a low heel. Do not wear high heels. ? Have rubber bottoms. ? Are comfortable and fit you well. ? Are closed at the toe. Do not wear open-toe sandals. ??? Use tools that help you move around (mobility aids) if they are needed. These include: ? Canes. ? Walkers. ? Scooters. ? Crutches. ??? Review your medicines with your doctor. Some medicines can make you feel dizzy. This can increase your chance of falling. Ask your doctor what other things you can do to help prevent falls. Where to find more information ??? Centers for Disease Control and Prevention, [place]: https://cdc.gov ??? National [place] on Aging: https://rx0msli.guzman.nih.gov Contact a doctor if: ??? You are afraid of falling [...] with your health care provider. Document Released: 07/17/2010 Document Revised: 05/05/2018 Document Reviewed: 05/05/2018 [employer] Interactive Patient Education ?? 2019 [employer] Hemorrhagic StrokeHemorrhagic Stroke A hemorrhagic stroke is the sudden of brain tissue that occurs when a blood vessel in the brain leaks or bursts (ruptures). When this happens, certain areas of the brain do not get enough oxygen,and blood builds up and presses on certain areas of the brain (hemorrhage). Lack of oxygen and pressure from hemorrhaging can lead to brain damage. There are two major types of hemorrhagic stroke, depending on where bleeding occurs. If bleeding occurs within the brain tissue, the condition is called an intracerebral hemorrhage. If bleeding occurs in the area between the brain and the membrane that covers the brain (subarachnoid space), the condition is called a subarachnoid hemorrhage. Hemorrhagic stroke is a medical emergency. It can cause temporary or permanent brain damage and loss of brain function. What are the causes? This condition is caused by a blood vessel leaking or rupturing, which may be the result of: ??? Part of a weakened blood vessel wall bulging or ballooning out (cerebral aneurysm). ??? A hardened, thin blood vessel cracking open and allowing blood to leak out. Blood vessels may become hardened and thin due to plaque buildup. ??? Tangled blood vessels in the brain (brain arteriovenous malformation). ??? Protein buildup on artery napier in the brain (amyloid angiopathy). ??? Inflamed blood vessels (vasculitis). ??? A tumor in the brain. ??? High blood pressure (hypertension). What increases the risk? The following factors may make you more likely to develop this condition: ??? Hypertension. ??? Having abnormal blood vessels present since (congenital abnormality). ??? Bleeding disorders, such as hemophilia, sickle cell disease, or liver disease. ??? The blood becoming too thin while taking blood thinners (anticoagulants). ??? Aging. ??? Moderate or heavy alcohol use. ??? Using drugs, such as cocaine or methamphetamines. What are the signs or symptoms? Symptoms of this condition usually appear suddenly, and may include: ??? Weakness or numbness of the face, arm, or leg, especially on one side of the body. ??? Confusion. ??? Difficulty speaking (aphasia) or understanding speech. ??? Difficulty seeing out of one or both eyes. ??? Difficulty walking or moving the arms or legs. ??? Dizziness. ??? Loss of balance or coordination. ??? Seizures. ??? A severe headache with no known cause. This headache may feel like the worst headache ever experienced. How is this diagnosed? This condition may be diagnosed based on: ??? Your symptoms. ??? Your medical history. ??? A physical exam. ??? Tests, including: ? Blood tests. ? CT scan. ? MRI. ??? Angiogram. In this procedure, dye is injected through a long, thin tube (catheter) into one of your arteries. Then, X-rays are taken. The X-rays will show whether there is a blockage or a problem in a blood vessel. How is this treated? This condition is a medical emergency that must be treated in a hospital immediately. The goals of treatment are to stop bleeding, reduce pressure on the brain, and relieve symptoms. Treatment may include: ??? Medicines that: ? Lower blood pressure (antihypertensives). ? Relieve pain (analgesics). ? Relieve nausea or vomiting. ? Stop or prevent seizures (anticonvulsants). ? Relieve fever. ? Prevent blood vessels in the brain from spasming in response to bleeding. ? Control bleeding in the brain. ??? Assisted breathing (ventilation). This involves using a machine to help you breathe (ventilator). ??? Receiving donated blood products through an IV tube (transfusion). You will receive cells that help your blood clot. ??? Placement of a tube (shunt) in the brain to relieve pressure. ??? Physical, speech, or occupational therapy. ??? Surgery to stop bleeding, remove a blood clot or tumor, or reduce pressure. Treatment depends on the cause, severity, and duration of symptoms. Medicines and changes to your diet may be used to help treat and manage risk factors for stroke, such as diabetes and high blood pressure. Follow these instructions at home: Activity ??? Return to your normal activities as told by your health care provider. Ask your health care provider what activities are safe for you. ??? Rest. Rest helps the brain to heal. Make sure you: ? Get plenty of sleep. Avoid staying up late at night. ? Keep a consistent sleep schedule. Try to go to sleep and wake up at about the same time every day. ? Avoid activities that cause physical or mental stress. General instructions ??? Take ukeb-vyo-grczsnp and prescription medicines only as told by your health care provider. ??? Do not drive or operate heavy machinery until your health care provider approves. ??? Limit alcohol intake to no more than 1 drink per day for non women and 2 drinks per day for men. One drink equals 12 oz of beer, 5 oz of wine, or 1?? oz of hard liquor. ??? Use a walker or a cane as told by your health care provider. ??? Keep all follow-up visits as told by your health care provider, including visits with therapists. This is important. How is this prevented? Your risk of stroke can be decreased by working with your health care provider to treat high blood pressure, high cholesterol, diabetes, heart disease, and obesity. Your risk of stroke can also be decreased by quitting smoking, limiting alcohol, and staying physically active. If you take the blood thinner warfarin, have your bloodwork monitored frequently by your health careprovider. Contact a health care provider if: You develop any of the following symptoms: ??? Headaches that keep coming back (chronic headaches). ??? Nausea. ??? Vision problems. ??? Increased sensitivity to noise or light. ??? Depression or mood swings. ??? Anxiety or irritability. ??? Memory problems. ??? Difficulty concentrating or paying attention. ??? Sleep problems. ??? Feeling tired all of the time. Recovery from hemorrhagic stroke varies widely. Talk with your health care provider about what to expect during your recovery. Get help right away if: ??? You develop symptoms of a hemorrhagic stroke. ??? You have a partial or total loss of consciousness. ??? You are taking blood thinners and you fall or you experience minor injury (trauma) to the head. ??? You have a bleeding disorder and you fall or you experience minor trauma to the head. These symptoms may represent a serious problem that is an emergency. Do not wait to see if the symptoms will go away. Get medical help right away. Call your local emergency services (911 in the [place] Do not drive yourself to the hospital. This information is not intended to replace advice given to you by your health care provider. Make sure you discuss any questions you have with your health care provider. Document Released: 03/10/2011 Document Revised: 02/25/2017 Document Reviewed: 09/13/2016 [employer] Interactive Patient Education ?? 2019 [employer] Stroke Prevention, Uisb-cp-ZthbLvcrfu Prevention Some medical conditions and lifestyle choices [...] healthy fats for cooking. These include: ? [place] oil. ? Canola oil. ? Lyman oil. ? Counting how many carbohydrates you [...] lot. ? Feeling very tired. ??? Take zhgy-kad-mvuepsg and prescription medicines only as told by your doctor. These may include aspirin or blood thinners (antiplatelets or anticoagulants). ??? Make sure that any other medical conditions you have are managed. Where to find more information ??? [place] Stroke Association: www.strokeassociation.org ??? National Stroke Association: [...] 03/21/2013 Document Revised: 12/22/2017 Document Reviewed: 12/22/2017 [employer] Interactive Patient Education ?? 2019 [employer] Transesophageal EchocardiogramTransesophageal Echocardiogram Transesophageal echocardiogram (AMBER) is a test that uses sound waves (echocardiogram) to produce very clear, detailed images of the heart. AMBER is done by passing a flexible tube down the esophagus. Theheart is located in front of the esophagus. AMBER may be done: ??? To check how well your heart valves are working. ??? To check for any abnormal growth or tumor ??? To look for blood clots ??? To check for infection of the lining of the heart (endocarditis). ??? To evaluate the dividing wall (septum) of the heart and check for a hole that did not close after (patent foramen ovale or atrial septal defect). ??? To help diagnose a tear in the wall of the blood vessels (aortic dissection). ??? To look at the heart shape, size, and function. Any changes can be associated with certain conditions, including heart failure, aneurysm, and coronary heart disease, CAD. ??? During cardiac valve surgery. This allows the surgeon to assess the valve repair before closing the chest. ??? During a variety of other cardiac procedures to guide positioning of catheters. ??? To monitor your heart's response to IV fluids or medicine. AMBER is usually not a painful procedure. You may feel the probe press against the back of the throat.The probe does not enter the trachea and does not affect your breathing. Tell a health care provider about: ??? Any allergies you have. ??? All medicines you are taking, including vitamins, herbs, eye drops, creams, and duoy-slb-icyvtdiefqhdqouq. ??? Any problems you or family members have had with anesthetic medicines. ??? Any blood disorders you have. ??? Any surgeries you have had. ??? Any medical conditions you have. ??? Any swallowing difficulties. ??? Whether you have or have had a blockage of the esophagus (esophageal obstruction). ??? Whether you are or may be . What are the risks? Generally, this is a safe procedure. However, problems may occur, including: ??? Damage to other structures or organs. ??? A tear of the esophagus (esophageal rupture). ??? Irregular heart beat (arrhythmia). ??? Hoarse voice or difficulty swallowing. ??? Bleeding (hemorrhage). What happens before the procedure? Staying hydrated Follow instructions from your health care provider about hydration, which may include: ??? Up to 3 hours before the procedure ??? you may continue to drink clear liquids, such as water, clear fruit juice, black coffee, and plain tea. Eating and drinking Follow instructions from your health care provider about eating and drinking, which may include: ??? 8 hours before the procedure ??? stop eating heavy meals or foods such as meat, fried foods, or fatty foods. ??? 6 hours before the procedure ??? stop eating light meals or foods, such as toast or cereal. ??? 6 hours before the procedure ??? stop drinking milk or drinks that contain milk. ??? 3 hours before the procedure ??? stop drinking clear liquids. General instructions ??? You will need to remove any dentures or dental retainers. ??? Plan to have someone take you home from the hospital or clinic. ??? Plan to have a responsible adult care for you for at least 24 hours after you leave the hospitalor clinic. This is important. ??? Ask your health care provider about: ? Changing or stopping your normal medicines. This is important if you take diabetes medicines or blood thinners. ? Taking eulk-czo-wgffcaw medicines, vitamins, herbs, and supplements. ? Taking medicines such as aspirin and ibuprofen. These medicines can thin your blood. Do not take these medicines unless your health care provider tells you to take them. What happens during the procedure? To reduce your risk of infection: ? Your health care team will wash or sanitize their hands. ? Hair may be removed from the surgical area. ? Your skin will be washed with soap. ??? An IV will be inserted into one of your veins. ??? You will be given one or both of the following: ? A medicine to help you relax (sedative). ? A medicine to be sprayed or gargled in order to numb the back of your throat (local anesthetic). ??? Your blood pressure, heart rate, and breathing (vital signs) will be monitored during the procedure. ??? You may be asked to lay on your left side. ??? A bite block will be placed in your mouth to keep you from biting the tube during the procedure. ??? The tip of the AMBER probe will be placed into the back of your mouth. You will be asked to swallow. This helps to pass the tip of the probe into the esophagus. ??? Once the tip of the probe is in the correct area, your health care provider will take pictures of the heart. ??? The probe and bite block will be removed when the procedure is done. The procedure may vary among health care providers and hospitals What happens after the procedure? Your blood pressure, heart rate, breathing rate, and blood oxygen level will be monitored until the medicines you were given have worn off. ??? When you first wake up, your throat may feel slightly sore and will probably still feel numb. This will improve slowly over time. You will not be allowed to eat or drink until the numbness has goneaway. ??? Do not drive for 24 hours if you received a sedative. Summary ??? Transesophageal echocardiogram (AMBER) is a test that uses sound waves (echocardiogram) to producevery clear, detailed images of the heart. ??? AMBER is done by passing a flexible tube down the esophagus. ??? Generally, this is a safe procedure. However, problems may occur, including damage to other structures or organs, bleeding, irregular heart beat, and a hoarse voice or trouble swallowing. ??? Tell your health care provider about any medicines and medical conditions you may have, as some conditions may increase your risk of complications. This information is not intended to replace advice given to you by your health care provider. Make sure you discuss any questions you have with your health care provider. Document Released: 12/11/2003 Document Revised: 12/17/2017 Document Reviewed: 12/17/2017 [employer] Interactive Patient Education ?? 2019 [email or web address]. Follow Up Care10/24/2019 18:17:57With:Fili Ness MD Address: [phone] When:As soon as possible Comments:cardiology f/u for loop recorder Call for follow up appointment Take all medications as prescribedWith:Wilson Mccall MD Address: [phone] When:2 to 3 weeks Comments:Call for follow up appointment Take all medications as prescribedWith: Carol Ruff MD Address: [phone] When:1 to 3 days
--- OUTSIDE RECORDS SUMMARY | 2022-07-28 13:35 | XMS_ITS | Continuity of Care Document ---
:1940 Author Organization [facility] Address [address] [place] [address]- Care Team Providers Name Role Phone Carol Ruff MD Primary Care Physician Encounter EVSA_FIN [id number] Date(s): 05/31/20 - 06/03/20 [facility] [address] [place] [address]- [facility] [phone] Encounter Diagnosis Ovarian cancer (Discharge Diagnosis) - 06/03/20 Discharge Disposition: Home/self care Attending Physician: Carrie Franks MD Admitting Physician: Carrie Franks MD Allergies, Adverse Reactions, Alerts No Known Allergies Assessment and Plan Extracted from: Title: Discharge Summary Note Author: Carrie Franks MD Date: 06/03/20 ?Medications to Continue?? 1. amLODIPine(amLODIPine) 2.5 mg By mout h every morning?? 2. famotidine(famotidine) 20 mg By mouth every bedtime?? 3. atorvastatin(atorvastatin) 20 mg By m outh every bedtime?? 4. warfarin.(warfarin) 5 mg By mouth raz ry Wednesday?? 5. aspirin(aspirin) 81 mg By mouth every morning?? 6. carvedilol(carvedilol) 6.25 mg By susi th twice daily with meals?? 7. gabapentin(gabapentin) 100 mg By mout h every bedtime?? 8. melatonin(melatonin) 9 mg By mouth ev amira bedtime?? 9. enoxaparin(enoxaparin) 60 mg subcutan eously twice daily with meals?? 10. multivitamin with minerals(Centrum S ilver Women's oral tablet) 1 Tab By mouth once daily?? 11. warfarin.(warfarin) 10 mg By mouth o nce daily Special Instructions: DAILY EXCEPT WEDNESDAY?? 12. citalopram(citalopram) 10 mg By mout h every morning?? 13. senna(senna) 17.2 mg By mouth once d aily as needed for constipation?? 14. guaiFENesin(guaiFENesin 600 mg oral tablet, extended release) 600 mg= 1 Tab By mouth twice daily with meals as needed for Cough?? 15. saccharomyces boulardii(Florastor) 2 50 mg By mouth twice daily with meals?? 16. cholecalciferol(Vitamin D3 5,000 Uni t oral capsule) 5,000 Unit= 1 Cap By mouth Cap once daily Special Instructions: with food?? 17. calcium-vitamin D(Calcium 600 +D Tab ) 1 Tab By mouth Tab three times daily?? 18. cyanocobalamin(Vitamin B12 50 mcg or al tablet) 50 mcg= 1 Tab By mouth Tab every morning?Discontinued Meds ? Home ?? Reg diet ?? No lifting over 10 lb No baths or swimming Pelvic rest ? 1-[address] Franks Diagnostic Tests PendingPathology Tissue Request SO 05/31/20 Future Scheduled TestsRadiologyXR L Spine 2-3 Views 11/09/19XR Wrist 2 Views Lt 11/21/19IR IVC Filter Placement Percutaneous 11/11/19 Medications acetaminophen-oxycodone 325 mg-5 mg oral tablet 1-2 tab, PO, q4hr Routine PRN Pain Moderate to Severe (4-10), FIRST DOSE INSTRUCTIONS: Start with 1 tab, assess response after 30 minutes., Start: 05/31/20 17:02:00 [facility] Notes: NTE 4 gms of Acetaminophen in 24 hrs. C: Narcotic Pain Medication; I: Pain; SE: constipation;dizziness, drowsiness, nausea. Start Date: 05/31/20 Stop Date: 06/03/20 Status: DiscontinuedamLODIPine 2.5 mg, PO, Tab, Start: 06/02/20 9:00:00 [facility] [place] Start Date: 06/02/20 Stop Date: 06/02/20 Status: Completedaspirin 81 mg, PO, qAM, Refills: 0, Maintenance Start Date: 05/28/20 Status: Orderedatorvastatin 20 mg, PO, qHS, Refills: 0, Maintenance Start Date: 05/28/20 Status: OrderedCalcium 600 +D Tab 1 Tab Tab, PO, TID, 0, Maintenance Start Date: 10/25/19 Status: Orderedcarvedilol 6.25 mg, PO, Tab, Start: 06/02/20 9:00:00 [facility] [place] Start Date: 06/02/20 Stop Date: 06/02/20 Status: Completedcarvedilol 6.25 mg, PO, BID, Refills: 0, Maintenance Start Date: 05/28/20 Status: OrderedCentrum Silver Women's oral tablet 1 Tab, PO, Daily, Refills: 0, Maintenance Start Date: 05/28/20 Status: Orderedcitalopram 10 mg, PO, qAM, Refills: 0, Maintenance Start Date: 11/15/19 Status: Orderedenoxaparin 60 mg, SUBCUT, BID, Refills: 0, Maintenance Start Date: 05/28/20 Status: Orderedfamotidine 20 mg, PO, qHS, Refills: 0, Maintenance Start Date: 05/28/20 Status: OrderedFlorastor 250 mg, PO, BID, 0, Maintenance Start Date: 11/15/19 Status: Orderedgabapentin 100 mg, PO, qHS, Refills: 0, Maintenance Start Date: 05/28/20 Status: OrderedguaiFENesin 600 mg oral tablet, extended release 1 Tab, PO, BID, PRN, Cough, 0, Maintenance Start Date: 11/15/19 Status: Orderedmelatonin 9 mg, PO, qHS, Refills: 0, Maintenance Start Date: 05/28/20 Status: Orderedsenna 17.2 mg, PO, Daily, PRN, as needed for constipation, 0, Maintenance Start Date: 11/15/19 Status: OrderedToradol 15 mg, IV Push, INJ, ATC while awake. For pts greater than 65 yo, less than 50 kg, or renal dysfunction (Scr greater than 1.5 mg/dL), Start: 06/02/20 15:00:00 [facility] [place], Stop: 06/02/20 15:00:00 [facility] [place] Start Date: 06/02/20 Stop Date: 06/02/20 Status: CompletedTylenol oral TABLET 1,000 mg, PO, Tab, q8hr Priority: Routine PRN Pain Mild (1-3), Start: 05/31/20 16:52:00 [facility] Notes: NTE 4 gms of Acetaminophen in 24 hrs C: Pain Medication; I: Pain; SE: hypotension Start Date: 05/31/20 Stop Date: 06/03/20 Status: DiscontinuedVitamin B12 50 mcg oral tablet 1 Tab Tab, PO, qAM, Refills: 0, Maintenance Start Date: 10/25/19 Status: OrderedVitamin D3 5,000 Unit oral capsule 1 Cap Cap, PO, qDay, 0, with food, Maintenance Start Date: 10/25/19 Status: Orderedwarfarin 5 mg, PO, qWed, Refills: 0, Maintenance Start Date: 05/28/20 Status: Orderedwarfarin 10 mg, PO, Daily, Refills: 0, DAILY EXCEPT WEDNESDAY, Maintenance Start Date: 05/28/20 Status: Ordered Problem List Condition Effective Dates Status Health Status Informant ASD (atrial septal Active defect)(Confirmed) Stroke(Confirmed)1 Active Depression(Confirmed) Active Acute embolic stroke(Confirmed)2 Resolved ESBL(Confirmed)3 12/15/19 Active Shingles(Confirmed) Resolved HTN (hypertension)(Confirmed) Active Skin cancer(Confirmed)4 Active Ovarian cancer(Confirmed)5 Active Neuropathy(Confirmed)6 Active Elevated troponin(Confirmed) Resolved 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 PER POLICY, CONSULT YOUR INFECTION CONTROL PRACTITIONER IF YOU FEEL THIS CONDITION SHOULD BE MARKED [id number] CELL AND SQUAMOUS REMOVED5 TREATED WITH CHEMO.6FINGERS AND TOES FROM [id number] Procedures Procedure Date Related Diagnosis Body Site Status ivc filter 11/14/19 Completed Bladder operation1 10/1990 Completed BLEPHROPLASTY Completed Carcinoma2 Completed CATARACTS REMOVED Completed Hysterectomy Completed Knee replacement3 Completed Plantar fascia4 Completed PORTACATH LEFT CHEST Complet ed Rectal fistula Completed Sclerotherapy of varicose vein5 Completed 1BLADDER [id number] SKIN CANCERS [id number] Results Laboratory List Name Date Basic Metabolic Panel (BMP (Lytes, Glucose, Bun, Creat , & CA)) 06/02/20 CBC w/Diff* (man diff if indicated) 06/02/20 [facility] Auto 05/31/20 Antibody Screen AutoSP 05/31/20 Coronavirus Surveillance/Non-PUI COVID19 05/24/20 Most recent to oldest [Reference Range]: 1 CBC Scan Auto Diff (06/02/20 7:02 AM) Lymphs [10.0-55.0 %] 14.9 % (06/02/20 7:02 AM) Monos. [0.0-15.0 %] 11.2 % (06/02/20 7:02 AM) Baso. [0.0-3.0 %] 0.3 % (06/02/20 7:02 AM) Neuts [35.0-80.0 %] 71.0 % (06/02/20 7:02 AM) Eos. [0.0-9.0 %] 2.6 % (06/02/20 7:02 AM) [facility] O POS *Unknown* (05/31/20 9:45 AM) Glucose Level [70-99 mg/dL] 101 mg/dL *H* (06/02/20 7:02 AM) ABS Neut [1.7-8.6 thousand/uL] 3.9 thousand/uL (06/02/20 7:02 AM) eGFR Non- Am >60 mL/min/1.73m2 *NA* (06/02/20 7:02 AM) eGFR Afr/Amer >60 mL/min/1.73m2 *NA* (06/02/20 7:02 AM) COVID19 Source Nasal washing *Unknown* (05/24/20 3:30 PM) COVID19/SARS-CoV-2 Result [Negative] Negative (05/24/20 3:30 PM) Ab Screen Neg (05/31/20 9:45 AM) ABS Baso [0.0-0.3 thousand/uL] 0.0 thousand/uL (06/02/20 7:02 AM) ABS Eos [0.0-1.0 thousand/uL] 0.1 thousand/uL (06/02/20 7:02 AM) ABS Lymph [0.5-5.9 thousand/uL] 0.8 thousand/uL (06/02/20 7:02 AM) ABS [place] [0.0-1.6 thousand/uL] 0.6 thousand/uL (06/02/20 7:02 AM) Anion Gap [5-15] 10 (06/02/20 7:02 AM) BUN [10-20 mg/dL] 13 mg/dL (06/02/20 7:02 AM) Chloride [98-107 mmol/L] 101 mmol/L (06/02/20 7:02 AM) CO2 [23-31 mmol/L] 26 mmol/L (06/02/20 7:02 AM) Creatinine [0.57-1.11 mg/dL] 0.63 mg/dL (06/02/20 7:02 AM) Hct [37.0-47.0 %] 28.2 % *L* (06/02/20 7:02 AM) Hgb [11.5-16.0 gm/dL] 9.2 gm/dL *L* (06/02/20 7:02 AM) MCH [27.0-34.0 pg] 32.7 pg (06/02/20 7:02 AM) MCHC [32.0-37.0 gm/dL] 32.7 gm/dL (06/02/20 7:02 AM) MCV [80.0-100.0 fL] 99.9 fL (06/02/20 7:02 AM) Plt [130-400 thousand/uL] 159 thousand/uL (06/02/20 7:02 AM) RBC [4.00-5.40 million/uL] 2.83 million/uL *L* (06/02/20 7:02 AM) RDW [11.5-16.0 %] 15.8 % (06/02/20 7:02 AM) Sodium [134-144 mmol/L] 133 mmol/L *L* (06/02/20 7:02 AM) WBC [4.8-10.8 thousand/uL] 5.5 thousand/uL (06/02/20 7:02 AM) Potassium [3.5-5.1 mmol/L] 4.1 mmol/L (06/02/20 7:02 AM) Calcium [8.4-10.2 mg/dL] 8.0 mg/dL *L* (06/02/20 7:02 AM) Vital Signs Most recent 1 2 3 4 5 6 7 8 9 10 to oldest [Reference Range]: Pain Scale Numeric Rating Scale Numeric Rating Scale Numeric Rati ng Scale Numeric Rating Scale Numeric Rating Scale Numeric Rating Scale Numeric Rating Scale Numeric Rating Scale Numeric Rating Scale Numeric Rating Sca le Used (06/03/20 10:27 AM) (06/03/20 2:32 AM) (06/03/20 2:02 AM) ( 11:08 PM) (06/02/20 8:00 PM) (06/02/20 6:37 PM) (06/02/20 4:00 PM) (06/02/20 3:45 PM) (06/02/20 1:43 PM) (06/02/20 1:13 PM) Temperature 36.3 deg C 37 deg C 36.5 deg C 36.8 deg C 36.9 deg C 36.7 de g C 36.7 deg C 37.3 deg C 37.1 deg C 37.2 deg C PO [36-37.5 (06/03/20 8:52 AM) (06/02/20 8:57 PM) (06/02/20 8:00 AM) (06/02/20 4:15 AM) (06/01/20 9:06 PM) (06/01/20 4:51 PM) (06/01/20 12:00 PM) (06/01/20 9:0 2 AM) (06/01/20 4:20 AM) (06/01/20 12:24 AM) deg C] Temperature 36.7 deg C 36.2 deg C Temporal (05/31/20 12:25 PM) *L* Artery (05/31/20 8:59 AM) [36.4-37.5 deg C] Heart Rate 66 bpm 63 bpm 63 bpm 63 bpm 63 bpm 68 bpm 70 bpm 63 bpm 74 bpm 65 bpm [51-119 bpm] (06/03/20 8:52 AM) (06/02/20 8:57 PM) (06/02/20 9:35 AM) (06/02/20 9:35 AM) (06/02/20 8:00 AM) (06/02/20 4:15 AM) (06/01/20 9:06 PM) (06/01/20 4:51 PM) (06/01/20 12:00 PM) (06/01/20 9:02 AM) Blood 115/60 mm Hg 97/57 mm Hg 115/66 mm Hg 115/66 mm Hg 115/66 mm Hg 105/57 mm Hg 97/52 mm Hg 109/55 mm Hg 107/50 mm Hg 92/53 mm Hg Pressure (06/03/20 8:52 AM) (06/02/20 8:57 PM) (06/02/20 9:35 AM) (06/02/20 9:35 AM) (06/02/20 8:00 AM) (06/02/20 4:15 AM) (06/01/20 9:06 PM) (06/01/20 4:51 PM) (06/01/20 12:00 PM) (06/01/20 9:02 AM) [91-139/50-90 mm Hg] NIBP Mean 79 mm Hg 77 mm Hg 84 mm Hg 80 mm Hg 75 mm Hg 82 mm Hg 74 mm Hg 95 mm Hg 94 mm Hg 105 mm Hg (05/31/20 2:45 PM) (05/31/20 2:30 PM) (05/31/20 2:00 PM) (05/05 05/23 1:30 PM) (05/31/20 1:15 PM) (05/31/20 1:00 PM) (05/31/20 12:45 PM) (05/31/20 12:35 PM) (05/31/20 12:30 PM) (05/31/20 12:25 PM) Resp Rate 17 Breaths/Min 18 Breaths/Min 17 Breaths/Min 16 Breaths/Mi n 16 Breaths/Min 18 Breaths/Min 16 Breaths/Min 16 Breaths/Min 18 Breaths/Min 18 Breaths/Min (Monitor) (06/03/20 8:52 AM) (06/02/20 8:57 PM) (06/02/20 8:00 AM) (06/02/20 4:15 AM) (06/01/20 9:06 PM) (06/01/20 4:51 PM) (06/01/20 12:00 PM) (06/01/20 9:0 2 AM) (06/01/20 4:20 AM) (06/01/20 12:24 AM) [13-20 Breaths/Min] SPO2 [87-100 91 % 94 % 95 % 95 % 94 % 95 % 95 % 97 % 96 % 97 % %] (06/03/20 8:52 AM) (06/02/20 8:57 PM) (06/02/20 8:00 AM) (05/06 0 4:15 AM) (06/01/20 9:06 PM) (06/01/20 4:51 PM) (06/01/20 12:00 PM) (06/01/20 9:02 AM) (06/01/20 4:20 AM) (06/01/20 12:24 AM) Oxygen Amount 2 L/min 2 L/min 2 L/min 2 L/min 8 L/min (06/01/20 12:00 PM) (06/01/20 9:02 AM) (05/31/20 8:35 PM) ( 12:40 PM) (05/31/20 12:25 PM) Oxygen Method Room air Room air Room air Room air Room air Room air Nasa l cannula Nasal cannula Nasal cannula Nasal cannula (06/03/20 8:52 AM) (06/02/20 8:57 PM) (06/02/20 8:00 AM) (05/06 4:15 AM) (06/01/20 9:06 PM) (06/01/20 4:51 PM) (06/01/20 12:00 PM) (06/01/20 9:02 AM) (05/31/20 8:35 PM) (05/31/20 12:40 PM) Glucose Level 101 mg/dL [70-99 mg/dL] *H* (06/02/20 7:02 AM) Height 165.1 cm 165.1 cm 165.1 cm (05/31/20 3:31 PM) (05/31/20 8:59 AM) (05/28/20 4:33 PM) Drug Calc 63.4 kg 63.447 kg 61.678 kg Weight (kg) (05/31/20 3:31 PM) (05/31/20 8:59 AM) (05/28/20 4:33 PM) Weight Method Stated Actual Stated (05/31/20 3:31 PM) (05/31/20 8:59 AM) (05/28/20 4:33 PM) BMI 23.26 kg/m2 23.28 kg/m2 22.63 kg/m2 (05/31/20 3:31 PM) (05/31/20 8:59 AM) (05/28/20 4:33 PM) Living Lives with children Lives with children Situation (06/03/20 9:35 AM) (05/31/20 3:31 PM) Current Home Home health Treatments (06/03/20 9:35 AM) Sensory None None None Deficits (06/03/20 9:35 AM) (06/03/20 9:35 AM) (05/31/20 3:31 PM) Eating Self Self (06/03/20 9:35 AM) (05/31/20 3:31 PM) Bathing Self With 1 person assist/assistive device (06/03/20 9:35 AM) (05/31/20 3:31 PM) Dressing Self With 1 person assist/assistive device (06/03/20 9:35 AM) (05/31/20 3:31 PM) Transferring Self With 1 person assist/assistive device (06/03/20 9:35 AM) (05/31/20 3:31 PM) Toileting Self With 1 person assist/assistive device (06/03/20 9:35 AM) (05/31/20 3:31 PM) Walking With 1 person assist/assistive device Wi th 1 person assist/assistive device (06/03/20 9:35 AM) (05/31/20 3:31 PM) Balancing With 1 person assist/assistive device Wi th 1 person assist/assistive device (06/03/20 9:35 AM) (05/31/20 3:31 PM) Current Home/Independent Living (06/03/20 9:35 AM) Environment Lives In (SW) Single level home (06/03/20 9:35 AM) Lives With Child(ulises) (SW) (06/03/20 9:35 AM) Bed alarm on No No No (06/03/20 8:52 AM) (06/03/20 3:00 AM) (06/02/20 11:08 PM) Social History Social History Type Response Smoking Status Former smoker, quit more tarik n 30 days ago; Number of years: 8; entered on: 05/31/20 Sex Medical Equipment Implanted Date:11/14/19 Target Site:Unknown Description Quantity MRI Company Model IVC Filter 1 Unknown BONNIE: No Information Assigning Authority: [facility] Hospital Discharge Instructions Patient [id number]/31/2020 12:33:05EV [facility] (Eng) Admission Orientation (CUSTOM) [facility] [address] [place] [address] Admission Orientation Welcome to [facility]. You are a very important part of your care. While you are here, we will work together to get you ready for discharge and teach you how to care for yourself when you are discharged. We will explain what to expect before, during and after your treatments and p rocedures. You will also be receiving education specific to your disease and treatments. Please let us know if you have questions or concerns. Here are some important things that everyone needs to know about upon admission to our unit: CALL LIGHT The call light is located on the TV Remote Control and also on each of the side rails of your bed. ??? Use the call light to call your nurse when you have a question, concern, need help or need pain medication. ??? There is also an Emergency Call Light in the Bathroom next to the toilet that you should use if you need help or assistance. You may also call the nurse caring for you directly. The phone number is written on the white board in your room. BED CONTROLS The bed controls are located on each of the upper side rails of your bed. You can move your head andfeet up or down to make yourself more comfortable. Push the up or down arrow with the picture of thehead to raise or lower the position of the head. Push the up or down arrow with the picture of the foot to raise or lower the position of the foot of the bed. While in the hospital, REMEMBER to change your position frequently to keep your skin healthy. TELEPHONE The telephone is located on the nightstand next to your bed. You must first dial 9 and then the number you wish to call. If you need to make a long distance call, you must dial ?? 0??? for the hospital recovery operator helper to assist you. TELEVISION The TV controls are also located on the TV Remote Control. To turn it on, change channels or turn itoff, press the button with the TV on it or the green on/off button. Use the up and down arrows to change the volume. VISITING HOURS We understand you want to visit your loved ones when it is convenient for you. ??? The hospital is open to visitors 24 hours a day, 7 days a week. ??? In the Intensive Care Units, patient???s health information is discussed by the healthcare team from 10:00 AM to 11:00 AM; visitors must stay in the patient rooms with doors closed due to privacy issues. ??? Family members wishing to be with the patient throughout the night may sleep in the room except in the Intensive Care Units. ??? In the Intensive Care Units, family members wishing to be with the patient throughout the night are asked to sleep in the waiting room and check on the patient through the night. Speak to the patient's nurse for more information. ??? During cold and flu season, we restrict visitors as needed. RAISING CONCERNS/COMPLAINTS REGARDING YOUR CARE OR SAFETY You and your family are encouraged to raise concerns or complaints if you have them. Exercising the right to do this will not affect your healthcare services in any way. ??? If at anytime you have concerns about patient care or safety, please speak to the fabrication operator or Greenhouse Laborer. ??? If they are unable to resolve your concern/complaint, you can call the Customer Communication line at [phone]. ??? If your concerns are not satisfactorily resolved through the hospital, you may contact the [facility] or the Department of Health Services: ?? The Joint Commission: Call or email: complaint@[email or web address] sale to [email or web address] ?? [place] Dept of Health Services: [address] [place] [address] Website: https://[facility].gov/ls/online_complaint/MEDComplaint.aspx FAMILY RAPID RESPONSE is a lifeline to immediate help when a patient or loved one feels the patient???s condition has worsened and immediate medical attention is needed. Dial [phone] from any hospital phone. PREVENTING INFECTION Five things you can do to prevent infection (such as colds, flu and strep throat). A Speak Up safety initiative by Joint Commission on Accreditation of Healthcare Organizations 1. Clean your hands. ??? Use soap and warm water. Wet hands and apply soap. Rub your hands really well for at least 15 seconds. Rinse and dry. Use paper towel to turn water off. ??? Or, if your hands do not look dirty, clean them with alcohol-based hand sanitizers. Rub the brush finisher all over your hands, especially under your nails and between your fingers, until your hands aredry. Children should be supervised when using this product. ??? Clean your hands before touching or eating food. Clean them after you use the bathroom, take outthe trash, change a diaper, visit someone who is ill, or play with a pet. Visitors and family members of patients should wash/clean their hands before entering the room to visit and any time they leavethe room. 2. Make sure health care providers clean their hands and wear gloves. ??? Doctors, nurses, dentists and other health care providers come into contact with lots of bacteria and viruses. So before they treat you, ask them if they've cleaned their hands. ??? Health care providers should wear clean gloves when they perform tasks such as taking throat cultures, pulling teeth, taking blood, touching wounds or body fluids, and examining your private parts.Don't be afraid to gently remind them to wear gloves. 3. In the hospital, health care workers use ???barriers?? like gloves to protect the patients and themselves. ??? While in the hospital a patient may have a specific germ that can be spread to others. These germs can be viruses or bacteria that cause illness. ??? Some diseases and/or conditions require the use of additional barriers, like gowns and/or masks and Isolation Precautions. ??? Comply with additional isolation precautions. ??? Signs are posted on/at patient doors when additional precautions are needed. ??? All patients, visitors and staff are asked to follow the instructions posted on/at the patient door. ??? Please ask your nurse if you have additional questions. ??? Patients and families in isolation should not use the common kitchen area, but should ask healthcare workers for items that they need. 4. Cover your mouth and nose. Many diseases are spread through sneezes and coughs. When you sneeze or cough, the germs can travel 3 feet or more! Cover your mouth and nose to prevent the spread of infection to others. ??? Use a tissue! Keep tissues handy at home, at work and in your pocket. Be sure to throw away usedtissues and then clean your hands. ??? If you don't have a tissue, cover your mouth and nose with the bend of your elbow or hands. If you use your hands, wash/clean them right away. 5. If you are sick, avoid close contact. ??? If you are sick, stay away from other people. Stay home if you have a fever. Call work or schooland tell them you are sick. ??? When you go for medical treatment, call ahead and ask if there's anything you can do to avoid infecting people in the waiting room. These steps can help prevent the spread of colds, the flu, and diseases like pneumonia, and strep throat. Remember to stay current on your immunizations. Fall Prevention Guidelines for Patient & Family As a patient in the hospital, your condition and the treatments you receive can increase your risk for falls. Our desire is to minimize any fall risk for patients. It is important that you learn how todecrease fall risks during your stay at the hospital. Let your caregiver know if you have a history of falls or any conditions that make you feel weak, unsteady or light-headed. Also, let your caregiver know if you have any problems with your vision, or need to put on your glasses before getting up. FALLS MAY OCCUR IN THE HOSPITAL BECAUSE . . . ??? Medications such as tranquilizers, sleeping pills, pain relievers, blood pressure pills, water pills and insulin, among others, all may make you dizzy, dazed and/or confused. ??? Your illness, enemas, laxatives, long periods without food, tests or surgery may leave you weakand unsteady. ??? You may have to use the restroom more than usual while in the hospital. ??? Lying down in bed for long periods of time can cause you to be dizzy and unsteady when you first get up. ??? Your treatment requires medical equipment with electrical cords and tubing, all of which can cause you to get tangled or to trip. ??? The hospital is a new and unfamiliar environment for you. This is worse at night. Falls can cause serious injuries and often can be prevented if fall precautions are observed. If we think you are at a risk for falls, we may place a fall risk band on your wrist. This band immediatelyalerts all staff that you are at a risk for falls. That way, they can work with you to take steps toprevent you from experiencing a fall. We may also place a sign in your room notifying your healthcare team that you have a condition or a past history that increases your risk of falls. If you are at high risk of a fall, or have had a fall before, we may put a bed alarm or ringer on your bed to notifyyour caregiver when you are getting up so that they can come and assist you. Patients with a fall history may also be given hip protectors and/or helmets to prevent fall injuries. Below are the most important steps you can take to prevent a fall: SAFETY GUIDELINES FOR PREVENTING FALLS ??? Your caregiver will tell you if it is safe for you to get out of bed by yourself or if you should always call for help before getting out of bed. Your caregiver may also offer to assist you in getting safely to the toilet whenever he/she is in your room. ??? Call for help if you feel dizzy or weak before getting out of bed. This is usually worse after sitting or lying for long periods. If you must get up without waiting for help, sit up in bed awhile before standing. Then get up carefully, and slowly begin to walk. If you feel dizzy or unsure of yourfooting, return to bed and wait for assistance. ??? Generally, you should remain lying or seated, rather than standing, while waiting for help. Be patient; someone will come to assist you as soon as possible. ??? Wear rubber-soled or crepe-soled slippers or shoes whenever you walk in the hospital. Check with your caregiver if you do not have any. A mat may be placed on the floor next to your bed to reduce the chance of slipping on the floor. ??? Do not remove restraints or tamper with side rails that may be in use. Side rails and restraints are reminders to stay in bed and are used to keep you safe. ??? When you need help, use your call light by your bed or in the bathroom. Wait for one of your caregivers to help you. ??? Walk slowly and carefully when out of bed. Do not lean or support yourself on rolling objects such as intravenous poles or bedside tables. ??? Ask your caregiver for help if your telephone, bedside table or call light are not within your easy reach. Falls can occur when reaching from bed and not just getting up. ??? Ask your caregiver to put the side rails of your bed up to prevent you from accidentally rolling out of bed. ??? If you use a walker, be sure that it is placed right beside your bed before your caregiver leaves your room. ??? If you do not feel you are strong enough to safely make it to the bathroom, ask your caregiver for a bedside commode instead. ??? Let your caregiver know if there is a spill on the floor. ??? If your caregiver determines you can get out of bed by yourself safely, always pay careful attention to the medical equipment, electrical cords and tubes around you. If you cannot get by the equipment, call your caregiver for assistance. ??? Always turn on the light at nighttime before getting out of bed. ??? When getting up from and into bed, avoid being distracted by the TV, telephone, or another person in your room. ? Falls often occur when a person is distracted when moving from the bed or around their room. A SPECIAL NOTE FOR FAMILY MEMBERS AND FRIENDS Hospital staff members cannot remain constantly at a patient's side. If necessary, make arrangementsfor a private-duty nurse, family member, or sitter to stay with your loved one. You may ask your caregivers if they have suggestions for times when a sitter would be most beneficial to the patient's comfort or peace of mind. Pain Management Pain is a sensation that hurts. It can be described as stabbing, pinching or aching, causing discomfort, distress or agony. It may be steady or it may come and go. Pain may be acute or chronic. Acute pain, such as the pain caused by surgery may, at times, be very painful, but will gradually lessen as the body heals. Chronic pain, such as pain caused by arthritis or cancer, may be less painful but maylast for long periods of time. When you are injured, pain warns you to protect yourself and to avoid further injury. However, when your pain is unrelieved it can be harmful, especially when you are sick or after surgery. Pain can make it difficult to take a deep breath and may interfere with your ability to move and walk. It is important to know that with the treatments available today, most pain can be well controlled no matter the type and the amount of pain you feel. When your pain is well controlled, you can be more active, sleep better, eat better, and feel great. If you are recovering from surgery, controlling your pain can help you get well faster. Do the following: Be familiar with the pain scale. A pain scale is a number scale to measure your pain. A rating of 0 means you feel no pain at all, 5 means you feel a moderate amount of pain, and 10 means you feel the worst pain you can imagine. Your nurse or physician will teach you to describe the type and amount ofpain you are having. 0 1 2 3 4 5 6 7 8 9 10 No Moderate Worst Pain Pain Pain If you know your pain may worsen with an activity, take pain medicine first to prevent the pain. If pain does occur, don???t wait for it to get worse before asking for pain medicine. The best time to manage pain is when it first starts. Report any changes in pain or new pain to your physician or nurse. If you have any concerns about addiction, talk to your doctor or nurse. Drug addiction is very rare in a person who is taking pain medicine for pain management. Taking pain medicine for pain managementis not the same thing as addiction. Report the following side effects to your nurse or physician: ??? Itching - Itching is not an allergic reaction but a fairly common side effect of pain medicine. Ask the nurse for medicine to relieve the itching when necessary. ??? Nausea - Nausea can occur from pain medicine, and it can also be treated with medicine. ??? Constipation - Pain medicine slows the bowel and can cause constipation. If your condition allows, the nurse will give you medicine to prevent constipation. ??? Excessive drowsiness and respiratory depression - These are the most serious but least common side effects of pain medicine. Less than 1% of patients experience these effects. These two side effects develop slowly. Nurses will be checking your sedation and breathing frequently. If detected, both are easily treated and corrected by decreasing the dose of pain medicine. Talk to your doctor or nurse if: ??? You are experiencing pain ??? You have questions about controlling your pain ??? You have taken pain medicine and it is not working At [facility], we will work with you and your family to manage your pain. We believe that managing your pain is an important part of your care. PREVENTING BLOOD CLOTS AND VENOUS THOMBOEMBOLISM (VTE) What is thromboembolism? Blood flow is slower when the body is not active. This can cause clots to form in the blood. A bloodclot in a blood vessel is called a thrombus. If the clot breaks loose and plugs another vessel, it is called thromboembolism. The blood clot can cause permanent injury to your body if it is not treated. Deep vein thrombosis (DVT) is a blood clot in one of the deep veins of the body, such as the leg or pelvis. This kind of clot can occur after surgery or long periods of bed rest. What are the signs and symptoms of deep vein thrombosis? Pain felt deep in the leg ??? Swelling and discoloration of the skin ??? Sudden onset of pain ??? Fever Pulmonary embolism (PE) is a serious condition where the arteries from the heart to the lungs are blocked. This happens when a blood clot travels to the lungs. Pulmonary embolism can be deadly, but quick treatment with anti-clotting medications can reduce the risk of . Preventing blood clots in your legs can help protect you against pulmonary embolism. What are the signs and symptoms of pulmonary embolism? Chest pain: May get worse with deep breathing, coughing, eating, and bending. ??? Cough: Begins suddenly, may cough up blood or blood-streaked sputum ??? Rapid breathing ??? Rapid heart rate ??? Shortness of breath, may occur at rest or during activity, starts suddenly Why is prevention important? Preventing clots is easier than treating them after they have happened. A blood clot can break off from the deep vein and travel to the lungs or other important organs. A blood clot can block blood flow to the tissues and ulcers or sores can result. How are deep vein thrombosis (DVT) and pulmonary embolus (PE) prevented? Wear compression stockings (JUDI hose) if your doctor recommends them. These keep blood from pooling in your veins. ??? Wear a sleeve-like device on your legs (SCDs) after surgery to squeeze your legs and keep blood flowing through your veins. The squeezing motion is similar to how your muscles squeeze your veins during normal walking. ??? Elevate the foot of your bed. ??? Get up and move as soon as you can after surgery, or after you've been ill. The quicker you get moving, the less likely blood clots will develop. ??? Take pain medicine as prescribed to make it easier to move around. ??? If you're having surgery, such as orthopedic surgery, you may be given blood thinners or anticoagulant (anti-clotting) medicines. These medicines make the blood less able to clot and are sometimes called ???blood thinners???. They can block the formation of new clots and stop existing clots from getting bigger. ??? Exercise your muscles if you'll be sitting a long time. Whenever possible, get up and walk around. If you can't get up to walk around, try to exercise the feet by flexing, extending and rotating the foot. ??? Make lifestyle changes. Lose weight, quit smoking and control your blood pressure. Obesity, smoking and high blood pressure all increase your risk of deep vein thrombosis. ??? Limit the amount of salt you eat. Eat a high protein, low fat diet. ??? Do not wear constrictive clothing or stockings Call your doctor if you have: ??? Pain in the leg ??? Tenderness in the calf (this is one of the most important signs) ??? Swelling of the leg ??? Increased warmth of the leg ??? Redness in the leg ??? Bluish skin discoloration ??? Discomfort when the foot is pulled upward ??? Chest pain and/or cough ??? Rapid breathing ??? Rapid heart rate ??? Shortness of breath FROM THE MEDICAL CHIEF TECHNICIAN Spiritual Care Services providing emotional and spiritual support At [facility], we are committed to providing comprehensive care by embracing the whole person inbody, mind and spirit. Board certified chaplains are available Wednesday - Wednesday 8 a.m.- 10:30 p.m. and Weekends 8 a.m. ??? 4:30 p.m. to all patients and their families to offer support across a wide array of diverse tracie traditions. Call Spiritual Care Services ??? To help you cope with feelings associated with diagnosis and treatment ??? If you find yourself asking ???why?? questions ??? For Sacramental needs, ritual and prayer ??? For grief and bereavement counseling ??? If you have discovered new possibilities in your life ??? During time of /loss ??? When you are struggling with forgiveness ??? To coordinate and collaborate with your tracie leader ??? To assist in decision making ??? To assist with advanced health care planning To contact a rivet machine operator, ask your nurse to call Spiritual Care Services Department: [facility]: [phone] Director: [phone] We???re here to support your tracie, beliefs and values. STROKE/TIA(TRANSISCHEMIC ATTACK) INFORMATION If you have been diagnosed with a Stroke or TIA: 1. Call 911 immediately if you experience signs or symptoms of stroke as: ??? Sudden weakness or numbness of face, arms and leg usually on one side of the body. ??? Loss of vision, particularly in only one eye. ??? Sudden severe headache with no known cause. ??? Sudden trouble walking, dizziness, loss of balance or coordination, slurred speech. 2. Risk factors for stroke: ??? Age: The older you get the more likely you are to have a stroke. ??? Sex: and English English men have a higher risk. ??? Prior Stroke: Already having a stroke makes you more likely to have another. ??? Family history: Family (parent, grandparents, brother, sister) with a history of stroke increases your risk. ??? You can control, treat or prevent some conditions to reduce your likelihood of stroke. High blood pressure, cigarette smoking, high cholesterol, Lack of regular physical activity, overweight, diabetes are all risk factors that can be changed. Cigarette Smoking Do you or someone you??live with??smoke??? If so, this is one of your??greatest health risk!?? This is a risk that you can control. The facts are clear that cigarette smoking will shorten your life. Smoking can cause many illnesses along the way. If you or someone you live with need help to quit smoking, talk to your regular doctor. Please contact one or more of the following agencies for smoking-cessation information or classes: ??? [facility] Tobacco Use Prevention Program- Telephone number: [phone] ??? [place] Smokers' Helpline:[phone] or access via website: WWW.[employer] ??? [employer] Telephone number: ([phone] ??? [employer] 06/03/2020 11:47:00Ovarian CancerOvarian Cancer Ovarian cancer is an abnormal growth of cells that forms a mass (malignant tumor) on one or both ovaries. The ovaries are the parts of the female reproductive system that produce eggs. Women have two ovaries. They are located on either side of the uterus. What are the causes? The cause of ovarian cancer is not known. What increases the risk? You are more likely to develop this condition if you: ??? Are 50 or older. ??? Have a personal or family history of endometrial, colon, breast, or ovarian cancer. ??? Have the genes associated with breast and ovarian cancer (BRCA1 and BRCA2). ??? Have used fertility medicines. ??? Started menstruating before age 12. ??? Started menopause when you were older than 50. ??? Became for the first time at age 35 or older. ??? Have never been . ??? Have had hormone replacement therapy. ??? Are overweight. ??? Have certain inherited genetic conditions that raise the risk of cancer, such as Pugh syndrome. ??? Have a history of polycystic ovarian syndrome. ??? Have tissues from the uterus growing outside of the uterus (endometriosis). What are the signs or symptoms? In the early stages, ovarian cancer often does not cause symptoms. As the cancer grows, symptoms mayinclude: ??? Unexplained weight loss. ??? Pain, swelling, and bloating in the abdomen. ??? Pain and pressure in your back and pelvis. ??? Abnormal bleeding from the vagina. ??? Loss of appetite. ??? Passing urine often. ??? Pain during sex. ??? Fatigue. How is this diagnosed? This condition may be diagnosed based on: ??? Your medical history and a physical exam. ??? A pelvic and abdominal exam to check your ovaries, uterus, vulva, cervix, vagina, bladder, rectum, and fallopian tubes. ??? Tests, such as: ??? An imaging test that uses sound waves to take pictures of your uterus, bladder, ovaries, and fallopian tubes (transvaginal ultrasound). For this test, a sound wave probe is inserted into your vagina. ??? CT scan, PET scan, or MRI. ??? X-rays of the colon and rectum. ??? Blood tests. ??? Taking a small piece of tissue to examine it under a microscope (biopsy). ??? Removing built-up fluid from the abdomen (ascites) to be examined under a microscope (paracentesis). Your cancer will be assessed (staged) based on how severe it is and how much it has spread. How is this treated? This condition may be treated with one or more of the following: ??? Surgery to remove one ovary and its fallopian tube (oophorectomy). This may be done to treat cancer in its early stages. ??? Surgery to remove the uterus, cervix, fallopian tubes, and ovaries (hysterectomy with bilateral salpingo-oophorectomy). Lymph tissue (lymph nodes) near the tumor and some tissue and fluid from the abdomen may also be removed and analyzed for cancer cells. This is done to treat advanced cancer. ??? Chemotherapy. This uses medicines to kill the cancer cells. Chemotherapy may be used before or after surgery. ??? Intraperitoneal chemotherapy (IP chemotherapy). Chemotherapy is given directly into the abdomen (peritoneum) through a special tube. ??? Targeted therapy. This uses drugs to attack specific areas within cancer cells to kill the cellsor stop them from growing. Follow these instructions at home: Lifestyle ??? Do not use any products that contain nicotine or tobacco, such as cigarettes and e-cigarettes. If you need help quitting, ask your health care provider. ??? Do moderate exercise regularly, as told by your health care provider. ??? Try to eat regular, healthy meals. Some of your treatments might affect your appetite. If you are having problems eating or with your appetite, ask to meet with a food and livestock nutritionist (dietitian). ??? Consider joining a support group with others who have cancer. A support group may help you with resources and information to help you cope with your cancer. General instructions ??? Take kkif-tyj-isuejvb and prescription medicines only as told by your health care provider. ??? Do not drive or use heavy machinery while taking prescription pain medicine. ??? If you are taking prescription pain medicine, take actions to prevent or treat constipation. Your health care provider may recommend that you: ??? Drink enough fluid to keep your urine pale yellow. ??? Eat foods that are high in fiber, such as fresh fruits and vegetables, whole grains, and beans. ??? Limit foods that are high in fat and processed sugars, such as fried or sweet foods. ??? Take an myri-uyn-sioetgd or prescription medicine for constipation. ??? You may need to have regular blood tests and imaging tests to monitor your response to treatment. ??? Keep all follow-up visits as told by your health care provider. This is important. Where to find more information ??? [employer]: www.cancer.org ??? National Cancer [place]: www.cancer.gov Contact a health care provider if you: ??? Are not able to follow a prescribed treatment plan or take a medicine. ??? Have any symptoms or changes that concern you. ??? Have changes in your bowel or bladder habits. Get help right away if you have: ??? A fever or chills. ??? Serious side effects or an allergic reaction to a treatment or medicine. ??? Back pain that is new. ??? Increased pain, swelling, or bloating in your abdomen. Summary ??? Ovarian cancer is an abnormal growth of cells that forms a mass (malignant tumor) on one or bothovaries. ??? Symptoms of ovarian cancer may include pain in the abdomen, back, or pelvis. You may also have aloss of appetite and swelling or bloating in the abdomen. ??? You are more likely to develop ovarian cancer if you are older than 50, but it can affect younger women, particularly those with the BRCA1 or BRCA2 genes. These genes are associated with breast andovarian cancer. ??? Treatment may include a combination of surgery and medicines that kill cancer cells (chemotherapy). ??? You may need to have regular blood tests and imaging tests to monitor your response to treatment. This information is not intended to replace advice given to you by your health care provider. Make sure you discuss any questions you have with your health care provider. Document Released: 08/10/2005 Document Revised: 01/11/2020 Document Reviewed: 10/12/2018 [employer] Patient Education ?? 2019 [employer]. 06/03/2020 11:47:00Bilateral Salpingo-OophorectomyBilateral Salpingo-Oophorectomy Bilateral salpingo-oophorectomy is the surgical removal of both fallopian tubes and both ovaries. The ovaries are reproductive organs that produce eggs in women. The fallopian tubes allow eggs to move from the ovaries to the uterus. You may need this procedure if you: ??? Have had your uterus removed. This procedure is usually done after the uterus is removed. ??? Have cancer of the fallopian tubes or ovaries. ??? Have a high risk of cancer of the fallopian tubes or ovaries. There are three different techniques that can be used for this procedure: ??? Open. One large incision will be made in your abdomen. ??? Laparoscopic. A thin, lighted tube with a small camera on the end (laparoscope) will be used to help perform the procedure. The laparoscope will allow your surgeon to make several small incisions in the abdomen instead of one large incision. ??? Robot-assisted. A computer will be used to control surgical instruments that are attached to robotic arms. A laparoscope may also be used with this technique. As a result of this procedure, you will become sterile (unable to become ), and you will go into menopause (no longer able to have menstrual periods). You may develop symptoms of menopause suchas hot flashes, night sweats, and mood changes. Your sex drive may also be affected. Tell a health care provider about: ??? Any allergies you have. ??? All medicines you are taking, including vitamins, herbs, eye drops, creams, and qaeo-nmv-ixsybgfriadblqoz. ??? Any problems you or family members have had with anesthetic medicines. ??? Any blood disorders you have. ??? Any surgeries you have had. ??? Any medical conditions you have. ??? Whether you are or may be . What are the risks? Generally, this is a safe procedure. However, problems may occur, including: ??? Infection. ??? Bleeding. ??? Allergic reactions to medicines. ??? Damage to other structures or organs. ??? Blood clots in the legs or lungs. What happens before the procedure? Staying hydrated Follow instructions from your health care provider about hydration, which may include: ??? Up to 2 hours before the procedure ??? you may continue to drink clear liquids, such as water, clear fruit juice, black coffee, and plain tea. Eating and drinking restrictions Follow instructions from your health care provider [...] milk or drinks that contain milk. ??? 2 hours before the procedure ??? stop drinking clear liquids. Medicines ??? Ask your health care provider about: ??? Changing or stopping your regular medicines. This is especially important if you are taking diabetes medicines or blood thinners. ??? Taking medicines such as aspirin and ibuprofen. These medicines can thin your blood. Do not takethese medicines before your procedure if your health care provider instructs you not to. ??? You may be given antibiotic medicine to help prevent infection. General instructions ??? Do not smoke for at least 2 weeks before your procedure or as told by your health care provider. ??? You may have an exam or testing. ??? You may have a blood or urine sample taken. ??? Ask your health care provider how your surgical site will be marked or identified. ??? Plan to have someone take you home from the hospital. ??? If you will be going home right after the procedure, plan to have someone with you for 24 hours. What happens during the procedure? To reduce your risk of infection: ??? Your health care team will wash or sanitize their hands. ??? Your skin will be washed with soap. ??? Hair may be removed from the surgical area. ??? An IV tube will be inserted into one of your veins. ??? You will be given one or more of the following: ??? A medicine to help you relax (sedative). ??? A medicine to make you fall asleep (general anesthetic). ??? A thin tube (catheter) will be inserted through your urethra and into your bladder. The catheterdrains urine during your procedure. ??? Depending on the type of surgery you are having, your surgeon will do one of the following: ??? Make one incision in your abdomen (open surgery). ??? Make two small incisions in your abdomen (laparoscopic surgery). The laparoscope will be passed through one incision, and surgical instruments will be passed through the other. ??? Make several small incisions in your abdomen (robot-assisted surgery). A laparoscope and other surgical instruments may be passed through the incisions. ??? Your fallopian tubes and ovaries will be cut away from the uterus and removed. ??? Your blood vessels will be clamped and tied to prevent too much bleeding. ??? The incision(s) in your abdomen will be closed with stitches (sutures) or oma. ??? A bandage (dressing) may be placed over your incision(s). The procedure may vary among health care providers and hospitals. What happens after the procedure? Your blood pressure, heart rate, breathing rate, and blood oxygen level will be monitored until the medicines you were given have worn off. ??? You may continue to receive fluids and medicines through an IV tube. ??? You may continue to have a catheter draining your urine. ??? You may have to wear compression stockings. These stockings help to prevent blood clots and reduce swelling in your legs. ??? You will be given pain medicine as needed. ??? Do not drive for 24 hours if you received a sedative. Summary ??? Bilateral salpingo-oophorectomy is a procedure to remove both fallopian tubes and both ovaries. ??? There are three different techniques that can be used for this procedure, including open, laparoscopic, and robotic. Talk with your health care provider about how your procedure will be done. ??? As a result of this procedure, you will become sterile and you will go into menopause. ??? Plan to have someone take you home from the hospital. This information is not intended to replace advice given to you by your health care provider. Make sure you discuss any questions you have with your health care provider. Document Released: 09/20/2006 Document Revised: 11/24/2019 Document Reviewed: 10/25/2017 Elsevier Patient Education ?? 2019 [employer] 05/31/2020 08:48:03EV (Eng) Preventing Surgical Site Infections (SSI) (CUSTOM) [address] [address] [place] [address] FREQUENTLY ASKED QUESTIONS ABOUT SURGICAL SITE INFECTIONS What is a Surgical Site Infection (SSI)? A surgical site infection is an infection that occurs after surgery in the part of the body where the surgery took place. Most patients who have surgery do not develop an infection. However, infectionsdevelop in about 1 to 3 out of every 100 patients who have surgery. Some of the common symptoms of a surgical site infection are: ??? Redness and pain around the area where you had surgery ??? Drainage of cloudy fluid from your surgical wound ??? Fever Can SSIs be treated? Yes. Most surgical site infections can be treated with antibiotics. The antibiotic given to you depends on the bacteria (germs) causing the infection. Sometimes patients with SSIs also need another surgery to treat the infection. What are some of the things that hospitals are doing to prevent SSIs? To prevent SSIs, doctors, nurses, and other healthcare providers: ??? Clean their hands and arms up to their elbows with an antiseptic agent just before the surgery. ??? Clean their hands with soap and water or an alcohol-based hand rub before and after caring for each patient. ??? May remove some of your hair immediately before your surgery using electric clippers if the hairis in the same area where the procedure will occur. They should not shave you with a razor. ??? Wear special hair covers, masks, gowns, and gloves during surgery to keep the surgery area clean. ??? Give you antibiotics before your surgery starts. In most cases, you should get antibiotics within 60 minutes before the surgery starts and the antibiotics should be stopped within 24 hours after surgery. ??? Clean the skin at the site of your surgery with a special soap that kills germs. What can I do to help prevent SSIs? Before your surgery: ??? Tell your doctor about other medical problems you may have. Health problems such as allergies, diabetes, and obesity could affect your surgery and your treatment. ??? Quit smoking. Patients who smoke get more infections. Talk to your doctor about how you can quitbefore your surgery. ??? Do not shave near the area where you will have surgery. Shaving with a razor can irritate your skin, making it easier to develop an infection. At the time of your surgery: ??? Speak up if someone tries to shave you with a razor before surgery. Ask why you need to be shaved and talk with your surgeon if you have any concerns. ??? Ask if you will receive antibiotics before surgery. After your surgery: ??? Make sure that your healthcare providers clean their hands before examining you, either with soap and water or an alcohol-based hand rub. ??? If you do not see your providers clean their hands, please ask them to do so. ??? Family and friends who visit you should not touch the surgical wound or dressings. ??? Family and friends should clean their hands with soap and water or an alcohol-based hand rub before and after visiting you. If you do not see them clean their hands, ask them to clean their hands. What do I need to do when I go home from the hospital? Before you go home, your doctor or nurse should explain everything you need to know about takingcare of your wound. Make sure you understand how to care for your wound before you leave the hospital. ??? Always clean your hands before and after caring for your wound. ??? Before you go home, make sure you know who to contact if you have questions or problems after you get home. ??? If you have any symptoms of an infection, such as redness and pain at the surgery site, drainage, or fever, call your doctor immediately. If you have questions, please ask your doctor or nurse. 05/31/2020 08:48:03EV (Eng) How we make your Surgery Safe (CUSTOM)[facility] [address] [place] [id number] [place] [address] HOW DO WE MAKE YOUR SURGERY SAFE? Every year millions of people have surgery. Every surgery has risks but we know there are some risksthat can be decreased or prevented. Don???t be afraid to ask about safety. Your health is too important to worry about being embarrassed if you don???t understand something that your surgeon, nurse or other health manager respiratory care tells you. Your care team includes your surgeon, your anesthesiologistand your perioperative nurses. While in the perioperative area, the following topics will be covered with you prior to going into surgery. HOW WE PREVENT INFECTIONS 1. In certain cases, antibiotics can lower chances of infection after surgery. Your surgeon may order an IV antibiotic, to be given prior to the start of your surgery. IV antibiotics may continue for up to 24 hours after surgery. 2. To prevent infection, health team members wash their hands before and after caring for each patient. The surgical team follows sterile technique for all procedures. 3. Depending on the type and location of your surgery, it may be necessary to use a clipper to remove some of your hair in the area surrounding the incision site. Razors are not used as they can leave small cuts on the skin and increase the chance of infection. HOW WE PREVENT BLOOD CLOTS 1. Because your body does not move while under anesthesia you are at greater risk of developing a blood clot. Your surgeon will assess your risk and the appropriate preventative steps will be taken through use of medication, special stockings among others. HOW WE PREVENT SURGICAL ERRORS 1.The surgical team will ask you to state your name and medical record number multiple times and compare your response to the information in your chart. All x-rays, implants and equipmentneeded for your surgery will be verified before and after you enter the operating room. 2.You will be asked to verify what procedure you are having done and where on your body. If the procedure involves a side, left/right or a specific finger or toe, the surgeon will use a marker and write a ???yes?? at the site being operated on. 3.After you have been moved into the operating room and before your surgery begins, the surgical staff will check your identity, verify the procedure and site (if applicable), supplies and equipment needed for your procedure. SPEAK UP if you have questions or concerns, and if you don???t understand something, please ask again. It???s your body and you have a right to know. Follow Up Care05/08/2020 06:23:41With:Carrie Franks MD Address: [address] [place] [address] [place] [id number] [phone] When:1 to 2 weeks
--- OUTSIDE RECORDS SUMMARY | 2022-07-28 13:35 | XMS_ITS | Referral Summary ---
:1940 Author Organization [facility] Address [address] [place] [address]- Care Team Providers Name Role Phone Carol Ruff MD Primary Care Physician Encounter EVSA_FIN [id number] Date(s): 11/17/19 - 11/15/19 [facility] [address] [place] [address]- [facility] Discharge Disposition: Home/self care Attending Physician: Ed Huitron MD Vital Signs Most recent 1 2 3 4 5 6 7 8 9 10 to oldest [Reference Range]: Sensory None Deficits (11/15/19 8:14 AM) Pain Scale Numeric Rating Scale Numeric Rating Scale Numeric Rati ng Scale Numeric Rating Scale Numeric Rating Scale Numeric Rating Scale Numeric Rating Scale Numeric Rating Scale Numeric Rating Scale Numeric Rating Sca le Used (11/15/19 10:51 AM) (11/15/19 10:51 AM) (11/15/19 10:10 A M) (11/15/19 10:05 AM) (11/15/19 10:03 AM) (11/15/19 9:55 AM) (11/15/19 9:50 AM) (11/15/19 9:4 7 AM) (11/15/19 9:40 AM) (11/15/19 8:14 AM) Temperature 36.6 deg C Temporal (11/15/19 8:14 AM) Artery [36.4-38.1 deg C] Heart Rate 76 bpm 74 bpm 76 bpm 78 bpm 80 bpm 78 bpm 78 bpm 78 bpm 78 bpm 82 bpm [51-119 bpm] (11/15/19 11:15 AM) (11/15/19 11:00 AM) (11/15/19 10:45 A M) (11/15/19 10:30 AM) (11/15/19 10:15 AM) (11/15/19 10:10 AM) (11/15/19 10:05 AM) ( 0 10:00 AM) (11/15/19 9:55 AM) (11/15/19 9:50 AM) Blood 149/82 mm Hg 139/83 mm Hg 150/77 mm Hg 148/74 mm Hg 132/75 m m Hg 138/77 mm Hg 139/77 mm Hg 139/77 mm Hg 142/79 mm Hg 166/91 mm Hg Pressure *H* (11/15/19 11:00 AM) *H* *H* (11/15/19 10:15 AM) ( 11/15/19 10:10 AM) (11/15/19 10:05 AM) (11/15/19 10:00 AM) *H* *H* [91-139/50-9 (11/15/19 11:15 AM) (11/15/19 10:45 AM) (11/15/19 10:30 AM) (11/15/19 9:55 AM) (11/15/19 9:50 AM) 0 mm Hg] NIBP Mean 108 mm Hg 106 mm Hg 106 mm Hg 105 mm Hg (11/15/19 11:15 AM) (11/15/19 11:00 AM) (11/15/19 10:45 AM) ( 0 10:30 AM) Resp Rate 20 Breaths/Min 25 Breaths/Min 26 Breaths/Min 16 Breaths/Mi n 14 Breaths/Min 14 Breaths/Min 17 Breaths/Min 17 Breaths/Min 18 Breaths/Min 15 Breaths/Min (Monitor) (11/15/19 11:15 AM) *H* *H* (11/15/19 10:30 AM) ( 10:15 AM) (11/15/19 10:10 AM) (11/15/19 10:05 AM) (11/15/19 10:00 AM) (11/15/19 9:55 AM) (11/15/19 9:50 AM) [13-20 (11/15/19 11:00 AM) (11/15/19 10:45 AM) Breaths/Min] SPO2 [87-100 97 % 97 % 97 % 94 % 94 % 97 % 97 % 97 % 96 % 100 % %] (11/15/19 11:15 AM) (11/15/19 11:00 AM) (11/15/19 10:45 AM) ( 11/15/19 10:30 AM) (11/15/19 10:15 AM) (11/15/19 10:10 AM) (11/15/19 10:05 AM) (11/15/19 10:00 AM) (11/15/19 9:55 AM) (11/15/19 9:50 AM) Oxygen 2 L/min 2 L/min 2 L/min 2 L/min 2 L/min 2 L/min Amount (11/15/19 10:24 AM) (11/15/19 10:10 AM) (11/15/19 10:05 A M) (11/15/19 10:00 AM) (11/15/19 9:55 AM) (11/15/19 9:50 AM) Oxygen Room air Room air Room air Room air Room air Nasal cannula Room air Nasal cannula Nasal cannula Nasal cannula Method (11/15/19 11:15 AM) (11/15/19 11:00 AM) (11/15/19 10:51 A M) (11/15/19 10:45 AM) (11/15/19 10:30 AM) (11/15/19 10:24 AM) (11/15/19 10:15 AM) (11/15/19 1 0:10 AM) (11/15/19 10:05 AM) (11/15/19 10:00 AM) FIO2 - pt 98 % care (11/15/19 9:45 AM) Glucose 112 mg/dL Level *H* [83-110 (11/15/19 8:33 AM) mg/dL] Height 167.64 cm (11/15/19 8:14 AM) Drug Calc 68.027 kg Weight (kg) (11/15/19 8:14 AM) Weight Stated Method (11/15/19 8:14 AM) BMI 24.21 kg/m2 (11/15/19 8:14 AM) Problem List Condition Effective Dates Status Health [...] qDay, 0, Maintenance Start Date: 10/24/19 Status: Orderedamoxicillin-clavulanate 875 mg-125 mg oral tablet 875 mg, PO, q12hr, 0, Maintenance Start Date: 11/15/19 Status: Orderedatorvastatin 20 mg oral tablet 1 Tab Tab, PO, qDay, 0, Maintenance Start Date: 10/24/19 Status: Orderedbethanechol 10 mg, PO, TID, 0, Maintenance Start Date: 11/15/19 Status: OrderedCalcium 600 +D Tab 1 Tab Tab, PO, TID, 0, Maintenance Start Date: 10/25/19 Status: Orderedcitalopram 10 mg, PO, Daily, 0, Maintenance Start Date: 11/15/19 Status: OrderedColace 100 mg, PO, BID, 0, Maintenance Start Date: 11/15/19 Status: OrderedEliquis 5 mg oral tablet 1 Tab Tab, PO, BID, 0, Maintenance Start Date: 11/05/19 Status: OrderedfentaNYL INJ 25-50 mcg, IV Push, INJ, q5min Priority: Routine PRN Sedation, For light (RASS of -2) or moderate (RASS of -3) sedation. Start 25-50mcg/5 min until level of sedation is achieved and/or dose of 250mcg/hr is reached. May redose for longer procedure to... Notes: C: Narcotic Pain Medication; I: Pain; SE: constipation; dizziness, drowsiness, nausea Start Date: 11/15/19 Stop Date: 11/15/19 Status: DiscontinuedFioricet 325/50/40 1 Tab, PO, 0, Maintenance Start Date: 11/15/19 Status: OrderedFlorastor 250 mg, PO, BID, 0, Maintenance Start Date: 11/15/19 Status: OrderedguaiFENesin 600 mg oral tablet, extended release 1 Tab, PO, BID, 0, Maintenance Start Date: 11/15/19 Status: Orderedondansetron 4 mg oral tablet 1 Tab, PO, q4hr, PRN, Nausea, 0, Maintenance Start Date: 11/15/19 Status: OrderedoxyCODONE 5 mg oral capsule 1 Cap, PO, q4hr, PRN, as needed for pain, 0, Maintenance Start Date: 11/15/19 Status: Orderedsenna 17.2 mg, PO, Daily, 0, Maintenance Start Date: 11/15/19 Status: OrderedVitamin B12 50 mcg oral tablet 1 Tab Tab, PO, qDay, 0, Maintenance Start Date: 10/25/19 Status: OrderedVitamin D3 5,000 Unit oral capsule 1 Cap Cap, PO, qDay, 0, with food, Maintenance Start Date: 10/25/19 Status: Ordered Results Most recent to oldest [Reference Range]: 1 CBC Scan Manual Diff (11/15/19 8:33 AM) Glucose Level [83-110 mg/dL] 112 mg/dL *H* (11/15/19 8:33 AM) Neut Abs Man [1.7-8.6 thousand/uL] 12.5 thousand/uL *H* (11/15/19 8:33 AM) Eos Abs Man [0.0-1.0 thousand/uL] 0.2 thousand/uL (11/15/19 8:33 AM) eGFR Non- Am >60 mL/min/1.73m2 *NA* (11/15/19 8:33 AM) Lymph Abs Man [0.5-5.9 thousand/uL] 0.5 thousand/uL (11/15/19 8:33 AM) Rooks Abs Man [0.0-1.6 thousand/uL] 2.1 thousand/uL *H* (11/15/19 8:33 AM) eGFR Afr/Amer >60 mL/min/1.73m2 *NA* (11/15/19 8:33 AM) Anion Gap [10-20] 15 (11/15/19 8:33 AM) BUN [10-20 mg/dL] 13 mg/dL (11/15/19 8:33 AM) Chloride [98-107 mmol/L] 98 mmol/L (11/15/19 8:33 AM) CO2 [23-31 mmol/L] 25 mmol/L (11/15/19 8:33 AM) Creatinine [0.57-1.25 mg/dL] 0.71 mg/dL (11/15/19: AM) Hct [37.0-47.0 %] 35.6 % *L* (11/15/19 AM) Hgb [11.5-16.0 gm/dL] 12.4 gm/dL (11/15/19 AM) MCH [27.0-34.0 pg] 31.0 pg (11/15/19: AM) MCHC [32.0-37.0 gm/dL] 34.8 gm/dL (11/15/19: AM) MCV [80.0-100.0 fL] 89.0 fL (11/15/19 AM) Man Bands [0-5 %] 2 % (11/15/19: AM) Man Eos [0-9 %] 1 % (11/15/19 AM) Man Lymphs [10-55 %] 3 % *L* (11/15/19 AM) Man Monos [0-15 %] 14 % (11/15/19: AM) Man Segs [35-80 %] 80 % (11/15/19: AM) Plt [130-400 thousand/uL] 149 thousand/uL (11/15/19:33 AM) Plt Est [Adequate] Adequate (11/15/19: AM) RBC [4.00-5.40 million/uL] 4.00 million/uL (11/15/19: AM) RBC Morph Normal (11/15/19: AM) RDW [11.5-16.0 %] 13.1 % (11/15/19: AM) Sodium [136-145 mmol/L] 134 mmol/L *L* (11/15/19 AM) WBC [4.8-10.8 thousand/uL] 15.3 thousand/uL *H* (11/15/19 AM) Potassium [3.5-5.1 mmol/L] 3.6 mmol/L (2/12/20 8:33 AM) Calcium [8.4-10.2 mg/dL] 8.8 mg/dL (11/15/19 8:33 AM) Procedures Procedure Date Related Diagnosis Body Site Status Bladder operation Completed Carcinoma Completed Hysterectomy Completed Knee replacement Completed Plantar fascia1 Completed Rectal fistula Completed Sclerotherapy of varicose vein2 Completed 1Left [id number] Social History Social History Type Response Smoking Status Former smoker, quit more tarik n 30 days ago entered on: 11/15/19 Hospital Discharge Instructions Patient Izumfvsbz69/10/2020 08:25:34Inferior Vena Cava Filter Insertion, Care AfterInferior Vena Cava Filter Insertion, Care After This sheet gives you information about how to care for yourself after your procedure. Your health care provider may also give you more specific instructions. If you have problems or questions, contact your health care provider. What can I expect after the procedure? After your procedure, it is common to have: ??? Mild pain in the area where the filter was inserted. ??? Mild bruising in the area where the filter was inserted. Follow these instructions at home: Insertion site care ??? Follow instructions from your health care provider about how to take care of the site where a catheter was inserted at your neck or groin (insertion site). Make sure you: ? Wash your hands with soap and water before you change your bandage (dressing). If soap and water are not available, use hand chief procurement officer. ? Change your dressing as told by your health care provider. ??? Check your insertion site every day for signs of infection. Check for: ? More redness, swelling, or pain. ? More fluid or blood. ? Warmth. ? Pus or a bad smell. ??? Keep the insertion site clean and dry. ??? Do not shower, bathe, use a hot tub, or let the dressing get wet until your health care providerapproves. General instructions ??? Take gyph-mnn-sijotih and prescription medicines only as told by your health care provider. ??? Avoid heavy lifting or hard activities for 48 hours after the procedure or as told by your health care provider. ??? Do not drive for 24 hours if you were given a medicine to help you relax (sedative). ??? Do not drive or use heavy machinery while taking prescription pain medicine. ??? Do not go back to school or work until your health care provider approves. ??? Keep all follow-up visits as told by your health care provider. This is important. Contact a health care provider if: ??? You have more redness, swelling, or pain around your insertion site. ??? You have more fluid or blood coming from your insertion site. ??? Your insertion site feels warm to the touch. ??? You have pus or a bad smell coming from your insertion site. ??? You have a fever. ??? You are dizzy. ??? You have nausea and vomiting. ??? You develop a rash. Get help right away if: ??? You develop chest pain, a cough, or difficulty breathing. ??? You develop shortness of breath, feel faint, or pass out. ??? You cough up blood. ??? You have severe pain in your abdomen. ??? You develop swelling and discoloration or pain in your legs. ??? Your legs become pale and cold or blue. ??? You develop weakness, difficulty moving your arms or legs, or balance problems. ??? You develop problems with speech or vision. These symptoms may represent a serious problem that is an emergency. Do not wait to see if the symptoms will go away. Get medical help right away. Call your local emergency services (911 in the [place] Do not drive yourself to the hospital. Summary ??? After your insertion procedure, it is common to have mild pain and bruising. ??? Do not shower, bathe, use a hot tub, or let the dressing get wet until your health care providerapproves. ??? Every day, check for signs of infection where a catheter was inserted at your neck or groin (insertion site). This information is not intended to replace advice given to you by your health care provider. Make sure you discuss any questions you have with your health care provider. Document Released: 07/11/2014 Document Revised: 08/11/2017 Document Reviewed: 08/11/2017 [employer] Interactive Patient Education ?? 2019 [employer] Monitored Anesthesia CareMonitored Anesthesia Care Anesthesia is a term that refers to techniques, procedures, and medicines that help a person stay safe and comfortable during a medical procedure. Monitored anesthesia care, or sedation, is one type ofanesthesia. Your anesthesia specialist may recommend sedation if you will be having a procedure thatdoes not require you to be unconscious, such as: ??? Cataract surgery. ??? A dental procedure. ??? A biopsy. ??? A colonoscopy. During the procedure, you may receive a medicine to help you relax (sedative). There are three levels of sedation: ??? Mild sedation. At this level, you may feel awake and relaxed. You will be able to follow directions. ??? Moderate sedation. At this level, you will be sleepy. You may not remember the procedure. ??? Deep sedation. At this level, you will be asleep. You will not remember the procedure. The more medicine you are given, the deeper your level of sedation will be. Depending on how you respond to the procedure, the anesthesia specialist may change your level of sedation or the type of anesthesia to fit your needs. An anesthesia specialist will monitor you closely during the procedure. Let your health care provider know about: ??? Any allergies you have. ??? All medicines you are taking, including vitamins, herbs, eye drops, creams, and sfnc-hmx-paiykcdskzknvqtm. ??? Any use of steroids (by mouth or as a cream). ??? Any problems you or family members have had with sedatives and anesthetic medicines. ??? Any blood disorders you have. ??? Any surgeries you have had. ??? Any medical conditions you have, such as sleep apnea. ??? Whether you are or may be . ??? Any use of cigarettes, alcohol, or street drugs. What are the risks? Generally, this is a safe procedure. However, problems may occur, including: ??? Getting too much medicine (oversedation). ??? Nausea. ??? Allergic reaction to medicines. ??? Trouble breathing. If this happens, a breathing tube may be used to help with breathing. It willbe removed when you are awake and breathing on your own. ??? Heart trouble. ??? Lung trouble. Before the procedure Staying hydrated Follow instructions from your health [...] procedure ??? stop drinking clear liquids. Medicines Ask your health care provider about: ??? Changing or stopping your regular medicines. This is especially important if you are taking diabetes medicines or blood thinners. ??? Taking medicines such as aspirin and ibuprofen. These medicines can thin your blood. Do not takethese medicines before your procedure if your health care provider instructs you not to. Tests and exams ??? You will have a physical exam. ??? You may have blood tests done to show: ? How well your kidneys and liver are working. ? How well your blood can clot. General instructions ??? Plan to have someone take you home from the hospital or clinic. ??? If you will be going home right after the procedure, plan to have someone with you for 24 hours. What happens during the procedure? Your blood pressure, heart rate, breathing, level of pain and overall condition will be monitored. ??? An IV tube will be inserted into one of your veins. ??? Your anesthesia specialist will give you medicines as needed to keep you comfortable during the procedure. This may mean changing the level of sedation. ??? The procedure will be performed. After the procedure ??? Your blood pressure, heart rate, breathing rate, and blood oxygen level will be monitored until the medicines you were given have worn off. ??? Do not drive for 24 hours if you received a sedative. ??? You may: ? Feel sleepy, clumsy, or nauseous. ? Feel forgetful about what happened after the procedure. ? Have a sore throat if you had a breathing tube during the procedure. ? Vomit. This information is not intended to replace advice given to you by your health care provider. Make sure you discuss any questions you have with your health care provider. Document Released: 06/16/2006 Document Revised: 02/26/2017 Document Reviewed: 01/10/2017 [employer] Interactive Patient Education ?? 2019 [employer] Surgical Site Infections - Vietnamese (Custom) (DPARRISH)FREQUENTLY ASKED QUESTIONS ABOUT Surgical Site Infections What is a Surgical Site Infection (SSI)? [...] symptoms of a surgical site infection are: ?? Redness and pain around the area where you had surgery ?? Drainage of cloudy fluid from your surgical wound ?? Fever Can SSIs be treated? Yes. Most surgical site infections can be treated with antibiotics. The antibiotic given to you depends on the bacteria (germs) causing the infection. Sometimes patients with SSIs also need another surgery to treat the infection. What are some of the things that hospitals are doing to prevent SSIs? To prevent SSIs, doctors, nurses, and other healthcare providers: ?? Clean their hands and arms up to their elbows with an antiseptic agent just before the surgery. ?? Clean their hands with soap and water or an alcohol-based hand rub before and after caring for each patient. ?? May remove some of your hair immediately before your surgery using electric clippers if the hair is in the same area where the procedure will occur. They should not shave you with a razor. ?? Wear special hair covers, masks, gowns, and gloves during surgery to keep the surgery area clean. ?? Give you antibiotics before your surgery starts. In most cases, you should get antibiotics [id number] minutes before the surgery starts and the antibiotics should be stopped within 24 hours after surgery. ?? Clean the skin at the site of your surgery with a special soap that kills germs. What can I do to help prevent SSIs? Before your surgery: ?? Tell your doctor about other medical problems you may have. Health problems such as allergies, diabetes, and obesity could affect your surgery and your treatment. ?? Quit smoking. Patients who smoke get more infections. Talk to your doctor about how you can quit before your surgery. ?? Do not shave near the area where you will have surgery. Shaving with a razor can irritate your skin, making it easier to develop an infection. At the time of your surgery: ?? Speak up if someone tries to shave you with a razor before surgery. Ask why you need to be shavedand talk with your surgeon if you have any concerns. ?? Ask if you will receive antibiotics before surgery. After your surgery: ?? Make sure that your healthcare providers clean their hands before examining you, either with soapand water or an alcohol-based hand rub. ?? If you do not see your providers clean their hands, please ask them to do so. ?? Family and friends who visit you should not touch the surgical wound or dressings. ?? Family and friends should clean their hands with soap and water or an alcohol-based hand rub before and after visiting you. If you do not see them clean their hands, ask them to clean their hands. What do I need to do when I go home from the hospital? ?? Before you go home, your doctor or nurse should explain everything you need to know about taking care of your wound. Make sure you understand how to care for your wound before you leave the hospital. ?? Always clean your hands before and after caring for your wound. ?? Before you go home, make sure you know who to contact if you have questions or problems after youget home. ?? If you have any symptoms of an infection, such as redness and pain at the surgery site, drainage,or fever, call your doctor immediately. If you have questions, please ask your doctor or nurse. Follow Up Care11/13/2019 08:25:34With:Ed Huitron Address: [address] [place] [address] [phone] Business (1) When:1 to 3 daysWith:Carol Ruff Address:Unknown When:1 to 3 days
--- OUTSIDE RECORDS SUMMARY | 2022-07-28 13:35 | XMS_ITS | Referral Summary ---
:1940 Author Organization [facility] nter Address [address] [place] [address]- Care Team Providers Name Role Phone Carol Ruff MD Primary Care Physician Encounter EVSA_FIN [id number] Date(s): 11/06/19 - 11/08/19 [facility] [address] [place] [address]- [facility] [phone] Encounter Diagnosis Acute embolic stroke (Discharge Diagnosis) - 11/06/19 Deep venous thrombosis of left popliteal vein (Discharge Diagnosis) - 11/06/19 Encephalopathy (Discharge Diagnosis) - 11/06/19 Elevated troponin (Discharge Diagnosis) - 11/06/19 Discharge Disposition: Home/self care Attending Physician: Aaron Delarosa MD Admitting Physician: Aaron Delarosa MD Vital Signs Most recent 1 2 3 4 5 6 7 8 9 10 to oldest [Reference Range]: Living Lives alone Lives alone Lives alone Situation (11/08/19 2:17 PM) (11/07/19 9:46 AM) (11/07/19 9:46 AM) Sensory None Deficits (11/06/19 2:14 PM) Eating Self (11/06/19 2:14 PM) Bathing Self (11/06/19 2:14 PM) Dressing Self (11/06/19 2:14 PM) Transferring Self (11/06/19 2:14 PM) Toileting Self (11/06/19 2:14 PM) Walking Self (11/06/19 2:14 PM) Balancing Self (11/06/19 2:14 PM) Bed alarm on Yes Yes Yes (11/08/19 4:00 PM) (11/08/19 12:00 PM) (11/08/19 8:00 AM) Pain Scale Numeric Rating Scale Numeric Rating Scale Numeric Rati ng Scale Numeric Rating Scale Numeric Rating Scale Numeric Rating Scale Numeric Rating Scale Numeric Rating Scale Numeric Rating Scale Numeric Rating Sca le Used (11/08/19 4:46 PM) (11/08/19 4:31 PM) (11/08/19 4:00 PM) (11/08/19 12:00 PM) (11/08/19 8:03 AM) (11/08/19 8:00 AM) (11/08/19 4:00 AM) (11/07/19 11:00 PM) (11/07/19 8:21 PM) (11/07/19 8:06 PM) Temperature 37.0 deg C 36.9 deg C 37.0 deg C 37 deg C 36.6 deg C 36.4 de g C 36.5 deg C 36.8 deg C 37.1 deg C 36.7 deg C PO [36-37.5 (11/08/19 4:00 PM) (11/08/19 12:00 PM) (11/08/19 8:00 AM) ( 5:00 AM) (11/07/19 11:00 PM) (11/07/19 8:00 PM) (11/07/19 4:00 PM) (11/07/19 11:15 A M) (11/07/19 7:45 AM) (11/07/19 3:00 AM) deg C] Heart Rate 84 bpm 85 bpm 91 bpm 92 bpm 83 bpm 84 bpm 97 bpm 96 bpm 88 bpm 90 bpm [51-119 bpm] (11/08/19 4:00 PM) (11/08/19 12:00 PM) (11/08/19 8:00 AM) ( 5:00 AM) (11/07/19 11:00 PM) (11/07/19 8:00 PM) (11/07/19 4:00 PM) (11/07/19 11:15 A M) (11/07/19 7:45 AM) (11/07/19 3:00 AM) Blood 126/76 mm Hg 130/79 mm Hg 151/79 mm Hg 130/85 mm Hg 132/80 m m Hg 138/83 mm Hg 134/83 mm Hg 135/79 mm Hg 148/82 mm Hg Pressure (11/08/19 4:00 PM) (11/08/19 12:00 PM) *H* (11/08/19 5:00 AM) (11/07/19 11:00 PM) (11/07/19 8:00 PM) (11/07/19 11:15 AM) (11/07/19 7:45 AM) *H* [91-139/50-90 (11/08/19 8:00 AM) ( 11/07/19 3:00 AM) mm Hg] NIBP Systolic 143 mm Hg [91-139 mm *H* Hg] (11/07/19 4:00 PM) NIBP 88 mm Hg Diastolic (11/07/19 4:00 PM) [50-90 mm Hg] Resp Rate 16 Breaths/Min 16 Breaths/Min 16 Breaths/Min 16 Breaths/Mi n 16 Breaths/Min 16 Breaths/Min 16 Breaths/Min 16 Breaths/Min 16 Breaths/Min 16 Breaths/Min (Monitor) (11/08/19 4:00 PM) (11/08/19 12:00 PM) (11/08/19 8:00 AM) ( 0 5:00 AM) (11/07/19 11:00 PM) (11/07/19 8:00 PM) (11/07/19 4:00 PM) (11/07/19 11:15 AM) (11/07/19 7:45 AM) (11/07/19 3:00 AM) [13-20 Breaths/Min] SPO2 [87-100 95 % 96 % 95 % 96 % 94 % 96 % 98 % 98 % 93 % 97 % %] (11/08/19 4:00 PM) (11/08/19 12:00 PM) (11/08/19 8:00 AM) ( 0 5:00 AM) (11/07/19 11:00 PM) (11/07/19 8:00 PM) (11/07/19 4:00 PM) (11/07/19 11:15 AM) (11/07/19 7:45 AM ) (11/07/19 3:00 AM) Oxygen Method Room air Room air Room air Room air Room air Room air Room air Room air Room air Room air (11/08/19 4:00 PM) (11/08/19 12:00 PM) (11/08/19 8:00 AM) ( 0 5:00 AM) (11/07/19 11:00 PM) (11/07/19 8:00 PM) (11/07/19 4:00 PM) (11/07/19 11:15 AM) (11/07/19 7:45 AM ) (11/07/19 3:00 AM) Glucose Level 111 mg/dL [70-99 mg/dL] *H* (11/07/19 7:14 AM) Glucose 114 mg/dL 1 144 mg/dL 2 107 mg/dL 3 114 mg/dL 4 102 mg/dL 5 115 mg/dL 6 94 mg/dL 7 (POCT) *H* *H* (11/07/19 8:01 AM) *H* (11/06/19 11:48 PM) *H* (11/06/19 5:39 PM) Automated (11/07/19 5:06 PM) (11/07/19 11:52 AM) (11/07/19 3:56 AM ) (11/06/19 8:03 PM) [70-110 mg/dL] Height 165.1 cm (11/06/19 2:14 PM) Drug Calc 72.9 kg Weight (kg) (11/06/19 2:14 PM) Weight Method Stated (11/06/19 2:14 PM) BMI 26.74 kg/m2 (11/06/19 2:14 PM) 1Result Comment: Investigator Internal Revenue: [id number] DEMETRIUS [id number] Comment: Investigator Internal Revenue: [id number] DEMETRIUS [id number] Comment: Investigator Internal Revenue: [id number] DEMETRIUS [id number] Result Comment: Investigator Internal Revenue: [id number] COPPLOE [id number] Comment: Investigator Internal Revenue: [id number] COPPLOE [id number] Comment: Investigator Internal Revenue: [id number] COPPLOE [id number] Comment: Investigator Internal Revenue: [id number] DEMETRIUSWANDA DUFF Problem List Condition Effective Dates Status Health [...] Range]: 1 2 CBC Scan Auto Diff (11/07/19 7:14 AM) Lymphs [10.0-55.0 %] 5.1 % *L* (11/07/19 7:14 AM) Monos. [0.0-15.0 %] 10.8 % (11/07/19 7:14 AM) Baso. [0.0-3.0 %] 0.4 % (11/07/19 7:14 AM) Neuts [35.0-80.0 %] 83.6 % *H* (11/07/19 7:14 AM) Eos. [0.0-9.0 %] 0.1 % (11/07/19 7:14 AM) Glucose Level [70-99 mg/dL] 111 mg/dL *H* (11/07/19 7:14 AM) ABS Neut [1.7-8.6 thousand/uL] 14.0 thousand/uL *H* (11/07/19 7:14 AM) eGFR Non- Am >60 mL/min/1.73m2 *NA* (11/07/19 7:14 AM) eGFR Afr/Amer >60 mL/min/1.73m2 *NA* (11/07/19 7:14 AM) ABS Baso [0.0-0.3 thousand/uL] 0.1 thousand/uL (11/07/19 7:14 AM) ABS Eos [0.0-1.0 thousand/uL] 0.0 thousand/uL (11/07/19 7:14 AM) ABS Lymph [0.5-5.9 thousand/uL] 0.9 thousand/uL (11/07/19 7:14 AM) ABS Ray [0.0-1.6 thousand/uL] 1.8 thousand/uL *H* (11/07/19 7:14 AM) Anion Gap [5-15] 14 (11/07/19 7:14 AM) BUN [10-20 mg/dL] 11 mg/dL (11/07/19 7:14 AM) Chloride [98-107 mmol/L] 100 mmol/L (11/07/19 7:14 AM) CO2 [23-31 mmol/L] 22 mmol/L *L* (11/07/19 7:14 AM) Creatinine [0.57-1.11 mg/dL] 0.65 mg/dL (11/07/19 7:14 AM) Hct [37.0-47.0 %] 37.9 % (11/07/19 7:14 AM) Hgb [11.5-16.0 gm/dL] 13.1 gm/dL (11/07/19 7:14 AM) MCH [27.0-34.0 pg] 31.9 pg (11/07/19 7:14 AM) MCHC [32.0-37.0 gm/dL] 34.5 gm/dL (11/07/19 7:14 AM) MCV [80.0-100.0 fL] 92.6 fL (11/07/19 7:14 AM) Mg [1.6-2.6 mg/dL] 2.0 mg/dL 1.9 mg/dL (11/08/19 7:15 AM) (11/07/19 7:14 AM) Plt [130-400 thousand/uL] 113 thousand/uL *L* (11/07/19 7:14 AM) RBC [4.00-5.40 million/uL] 4.09 million/uL (11/07/19 7:14 AM) RDW [11.5-16.0 %] 12.9 % (11/07/19 7:14 AM) Sodium [134-144 mmol/L] 132 mmol/L *L* (11/07/19 7:14 AM) WBC [4.8-10.8 thousand/uL] 16.8 thousand/uL *H* (11/07/19 7:14 AM) Potassium [3.5-5.1 mmol/L] 3.7 mmol/L (11/07/19 7:14 AM) Calcium [8.4-10.2 mg/dL] 8.2 mg/dL *L* (11/07/19 7:14 AM) Procedures Procedure Date Related Diagnosis Body Site Status Bladder operation Completed Carcinoma Completed Hysterectomy Completed Knee replacement Completed Plantar fascia1 Completed Rectal fistula Completed Sclerotherapy of varicose vein2 Completed 1Left [id number] Social History Social History Type Response Smoking Status Former smoker, quit more tarik n 30 days ago; Stopped at age: [age]; entered on: 11/04/19 Assessment and Plan Extracted from: Title: Discharge Summary Author: Aaron Delarosa MD Date: Discharge Information Admit Date: 11/06/19 12:50 Current Date/Time 11/08/2019 14:30 Diagnosis this visit: Acute embolic stroke (I63.9) 11/06/2019 14:39 Discharge Deep venous thrombosis of left popliteal vein (I82.432) 11/06/2019 14:39 Discharge Encephalopathy (G93.40) 11/06/2019 14:39 Discharge Elevated troponin (R79.89) 11/06/2019 14 :39 Discharge Discharge Plan Allergies Allergies (1) Active Reaction NKA None Documented . Discharge Medications Med Reconciliation Medications to Continue 1. apixaban(Eliquis 5 mg oral tablet) 5 mg= 1 Tab By mouth Tab twice daily 2. atorvastatin(atorvastatin 20 mg oral tablet) 20 mg= 1 Tab By mouth Tab once daily 3. amLODIPine(amLODIPine 2.5 mg oral tab let) 2.5 mg= 1 Tab By mouth Tab once daily 4. cholecalciferol(Vitamin D3 5,000 Unit oral capsule) 5,000 Unit= 1 Cap By mouth Cap once daily Special Instructions: with food 5. calcium-vitamin D(Calcium 600 +D Tab) 1 Tab By mouth Tab three times daily 6. cyanocobalamin(Vitamin B12 50 mcg ora l tablet) 50 mcg= 1 Tab By mouth Tab once daily Discontinued Meds cyclobenzaprine (cyclobenzaprine 10 mg oral tablet) SUMAtriptan (SUMAtriptan 25 mg oral tab let) 1 Tab By mouth Tab once daily as needed for migraine headache . Discharge Disposition [facility] facility. Education and Follow-up Counseled: family. Discharge Planning: Follow-Up Details: Provider/Org Name: Carol Ruff MD Within: 2 to 3 weeks Address: ;[id number]; Provider/Org Name: Wilson Mccall MD Within: 2 to 3 weeks Address: ;[id number]; Provider/Org Name: Fili Ness MD Within: 1 to 2 weeks Address: ;[id number]; , . Extracted from: Title: Discharge Summary Author: Aaron Delarosa MD Date: Discharge Information Admit Date: 11/06/19 12:50 Current Date/Time 11/07/2019 10:46 Diagnosis this visit: Acute embolic stroke (I63.9) 11/06/2019 14:39 Discharge Deep venous thrombosis of left popliteal vein (I82.432) 11/06/2019 14:39 Discharge Encephalopathy (G93.40) 11/06/2019 14:39 Discharge Elevated troponin (R79.89) 11/06/2019 14 :39 Discharge Discharge Plan Allergies Allergies (1) Active Reaction NKA None Documented . Education and Follow-up Discharge Planning: Follow-Up Details: Provider/Org Name: Carol Ruff MD Within: 2 to 3 weeks Address: ;[id number]; Provider/Org Name: Wilson Mccall MD Within: 2 to 3 weeks Address: ;[id number]; Provider/Org Name: Fili Ness MD Within: 1 to 2 weeks Address: ;[id number]; , . Extracted from: Title: Admission H & P Author: Aaron Delarosa MD Date: 11/06/19 New??multiple embolic??infarcts Recent CVA??10 days ago Suspect occult arrhythmia History of PFO Chronic left lower extremity DVT Encephalopathy related to CVA Chronic elevation of troponin ?? Plan: [facility] Neurochecks per protocol PT/OT/speech therapy?? Repeat CT of the head MRI of the brain was done yesterday estuardo wing the multiple infarcts AMBER was done on the last admission Roly bowers ??which revealed small PFO??but no thrombus Discussed with cardiology. ??No further work-up needed on their end.?? No intervention needed for the chronic elevation of troponins. Suspect patient need acute rehab Further orders based on clinical course , lab findings, and discussion consultants Ordered: Tylenol oral TABLET, 650 mg, PO, Tab, q 4hr Priority: Routine PRN Pain Mild (1- 3), Start: 11/06/19 13:30:00 MST amLODIPine, 2.5 mg, PO, Tab, qDay Routi ne, Start: 11/06/19 13:31:00 MST Eliquis, 5 mg, PO, Tab, BID Routine, St art: 11/06/19 13:31:00 MST atorvastatin, 20 mg, PO, Tab, qDay Rout ine, Start: 11/06/19 21:00:00 MST cyanocobalamin, 50 mcg, PO, Tab, qDay R outine, Start: 11/06/19 13:31:00 MST hydrALAZINE, 10 mg, IV Push, INJ, q4hr Priority: Routine PRN Other (see Comments), for systolic blood pressure greater than 180, Start: 11/06/19 13:30:00 MST magnesium oxide, 400 mg, PO, Tab, Per P arameter Routine PRN Hypomagnesemia, Start: 11/06/19 13:30:00 MST magnesium sulfate 2gm/50 mL SW, 2 gm, I V, Bag, Per Parameter Routine PRN Hypomagnesemia, Infuse over: 2 hr, Start: 11/06/19 13:30:00 MST magnesium sulfate 4gm/100 mL SW, 4 gm, IV, Bag, Per Parameter Routine PRN Hypomagnesemia, Infuse over: 4 hr, Start: 11/06/19 13:30:00 MST Zofran, 4 mg, IV Push, INJ, q4hr Priori ty: Routine PRN Nausea / Vomiting 1st Choice, Start: 11/06/19 13:30:00 MST Effer-K, 20 mEq, PO, Tab, Per Parameter Priority: Routine PRN Hypokalemia, Per KCl Replacement to 4 Powerplan, Start: 11/06/19 13:30:00 MST Effer-K, 40 mEq, PO, Tab, Per Parameter Priority: Routine PRN Hypokalemia, Per KCl Replacement to 4 Powerplan, Start: 11/06/19 13:30:00 MST KCL 10 mEq/100 mL IVPB, 10 mEq, IV, Bag , Per Parameter Routine PRN Hypokalemia, Per KCl Replacement to 4 Powerplan, Infuse over: 60 min, Start: 11/06/19 13:30:00 MST Senokot, 8.6 mg, PO, Tab, qHS Routine P RN Constipation, Start: 11/06/19 13:30:00 MST temazepam, 7.5 mg, PO, Cap, qHS Routine PRN Insomnia, May repeat x 1 in 1 hr, Start: 11/06/19 13:30:00 MST Advance Activity as Tolerated Assess pain level BMP (Lytes, Glucose, Bun, Creat, & CA) CBC w/Diff* (man diff if indicated) Consulting Physician DVT/VTE reference text Elevate Head of Bed Equianalgesic Dose Chart Reference EV Skin and Wound Care Protocol Extrem Lower Venous Duplx Bilat US Heart Healthy Diet (Cardiac) Magnesium (Mg) Level Magnesium Replacement Monitoring Neuro Check Notify MD if Notify MD if Nursing Communication OT Initial Evaluation & Treatment Oxygen per protocol Patient Placement Patient Placement Potassium Level Potassium Replacement Monitoring to 4.0 Present on Admission PT Initial Evaluation & Treatment Pulse Oximetry Saline Lock Speech Language Cognition Evaluation & Treatment Video Education: Hospital Visit Kristin chou Video Education: Pain Management VTE Moderate Risk Hospital Discharge Instructions Patient Kdrkfvkxr65/03/2020 09:15:14Emotional Health After StrokeEmotional Health After Stroke Your emotional health may change after a stroke. You may have fear, anxiety, anger, sadness, and other feelings. Some of these changes happen because a stroke can damage your brain and nervous system. You may also have these feelings because coping with a change in your health can feel overwhelming. Depression and other emotional changes can slow your recovery after a stroke. It is important to recognize the symptoms so that you can take steps to strengthen your emotional health. What are some common emotions after a stroke? You may have: ??? Fear. ??? Anxiety. ??? Anger. ??? Frustration. ??? Sadness. ??? Feelings of loss or grief. ??? Depression. ??? Crying or laughing at the wrong time or wrong situation (pseudobulbar affect, orPBA). What are the symptoms of depression? Depression after a stroke can happen right away, or it can show up later. Symptoms of depression mayinclude: ??? Sleep problems. ??? Changes in normal eating habits, such as eating too much or too little. ??? Weight gain or weight loss. ??? Not having energy or enthusiasm (lethargy). ??? Feeling very tired (fatigue). ??? Avoiding people and activities (social withdrawal). ??? Irritability. ??? Crying more than usual. ??? Mood swings. ??? Not being able to concentrate. ??? Feeling hopeless. ??? Hating yourself. ??? Having suicidal thoughts. If you ever feel like you may hurt yourself or others, or have thoughts about taking your own life, get help right away. You can go to your nearest emergency department or call: ??? Your local emergency services (911 in the [place] ??? A suicide crisis helpline, such as the National Suicide Prevention Lifeline at . This is open 24 hours a day. What increases my risk of depression? Having a stroke raises the risk of depression. The risk also goes up if you: ??? Are socially isolated. ??? Have a family history of depression. ??? Have a history of depression or other mental health problems before the stroke. ??? Are unable to work or do activities that you previously enjoyed. ??? Need help from others for daily activities. ??? Use drugs or drink alcohol. ??? Take certain medicines, such as sleeping pills or high blood pressure medicines. What are some coping methods I can use? Ask your health care provider for help. Your health care provider may recommend treatments for depression, such as: ??? Talk therapy or counseling with a mental health professional. This may include cognitive behavioral therapy (CBT) to help change your patterns of thinking. ??? Medical therapies, such as brain stimulation or light therapy. ??? Lifestyle changes, such as eating a healthy diet and avoiding alcohol. ??? Antidepressant medicines. ??? Alternative therapies, such as acupuncture, music therapy, or pet therapy. Other coping strategies you may try include: ??? Physical therapy or exercises. Try to do some exercise every day. ??? Writing your thoughts in a journal. An example might be keeping track of unrealistic thoughts orkeeping a log of things you are thankful for. ??? Practicing good sleep habits, such as getting up at the same time every day. ??? Following a predictable routine each day. ??? Participating in activities that make you laugh. ??? Mindfulness therapy. This may include meditation and other techniques to lower your stress. ??? Joining a support group for people who are recovering from a stroke. These groups provide socialinteraction and help you feel connected to others. Your health care team can help you find a supportgroup in your area. Summary ??? Your emotional health may change after a stroke. You may have fear, anxiety, anger, sadness, andother feelings. ??? It is important to recognize the symptoms of depression and other emotional problems. ??? If you experience emotional changes, let your loved ones know and contact your health care provider. This information is not intended to replace advice given to you by your health care provider. Make sure you discuss any questions you have with your health care provider. Document Released: 12/24/2017 Document Revised: 12/24/2017 Document Reviewed: 12/24/2017 [employer] Interactive Patient Education ?? 2019 [employer] EV (Eng) Preventing Infection ([facility])[place] [address] [address] [place] [address] PREVENTING INFECTION Five things you can do [...] them with alcohol-based hand sanitizers. Rub the return clerk all over your hands, especially under your [...] diseases are spread through sneezes and coughs. ??? When you sneeze or cough, the germs [...] Remember to stay current on your immunizations. EV [facility] (Eng) Admission Orientation (Custom)[facility] [address] [place] [address] Admission Orientation Welcome to [facility]. You are a very important part of [...] must dial ?? 0??? for the hospital gas compressor turbine operator to assist you. TELEVISION The TV controls [...] care or safety, please speak to the highway patrol commander or Maintenance Pipefitter. ??? If they are unable to resolve your concern/complaint, you can call the Customer Communication line at [phone]. ??? If your concerns are not satisfactorily resolved through the hospital, you may contact the [facility] or the Department of Health Services: ?? The Joint Commission: Call or email: [email or web address] ?? [place] Dept of Health Services: [address] [place] [address] Website: https://rafi.[facility].gov/ls/online_complaint/MEDComplaint.aspx FAMILY RAPID RESPONSE is a lifeline to immediate help when a patient or loved one feels the patient???s condition has worsened and immediate medical attention is needed. Dial [phone] from any hospital phone. PREVENTING INFECTION Five [...] them with alcohol-based hand sanitizers. Rub the return clerk all over your hands, especially under your [...] medicine and it is not working At [facility], we will work with you and your [...] rate ??? Shortness of breath FROM THE HIGH SPEED PRINTER OPERATOR Spiritual Care Services providing emotional and spiritual support At [facility], we are committed to providing comprehensive care [...] advanced health care planning To contact a discovery guide, ask your nurse to call Spiritual Care Services Department: Gymnastic Teacher: [phone] Director: [phone] We???re here to support your tracie, beliefs and values. Cigarette Smoking Do you or someone you??live [...] agencies for smoking-cessation information or classes: ??? [facility] Tobacco Use Prevention Program- Telephone number: [phone] ??? [place] Smokers' Helpline:275.837.2189 or access via website: WWW.ASHLINE.ORG ??? [place] [employer] Telephone number: (102)-568-6251 ??? [place] [employer] Fall Prevention in the Home, AdultFall Prevention in [...] night-lights. ??? Place frequently used items in mxjp-kj-blfzh places. Lower the shelves around your home [...] the way. ??? Do not use floor lao or wax that makes floors slippery. If [...] include working with a physical therapist or application trainer to improve your strength, balance, and endurance. Where to find more information ??? Centers for Disease Control and Prevention, STEADI: https://www.cdc.gov ??? National [place] on Aging: https://cx6tait.guzman.nih.gov Contact a health care provider if: ??? [...] 09/10/2003 Document Revised: 05/05/2018 Document Reviewed: 05/05/2018 [employer] Interactive Patient Education ?? 2019 [employer] Hand Washing, Kguz-zo-WvxpJrxe Washing Germs such as bacteria, viruses, and [...] leash. ? Touching money. ? Using household phd intern or poisonous chemicals. ? Handling dirty clothes, [...] a hand-washing wipe, spray, or gel (hand return clerk). Use one that contains at least 60% [...] 09/02/2009 Document Revised: 06/29/2018 Document Reviewed: 06/29/2018 [employer] Interactive Patient Education ?? 2019 [employer] Ischemic StrokeIschemic Stroke An ischemic stroke (cerebrovascular accident, or CVA) is the sudden of brain tissue that occurs when an area of the brain does not get enough oxygen. It is a medical emergency that must be treated right away. An ischemic stroke can cause permanent loss of brain function. This can cause problems with how different parts of your body function. What are the causes? This condition is caused by a decrease of oxygen supply to an area of the brain, which may be the result of: ??? A small blood clot (embolus) or a buildup of plaque in the blood vessels (atherosclerosis) that blocks blood flow in the brain. ??? An abnormal heart rhythm (atrial fibrillation). ??? A blocked or damaged artery in the head or neck. Sometimes the cause of stroke is not known (cryptogenic). What increases the risk? Certain factors may make you more likely to develop this condition. Some of these factors are thingsthat you can change, such as: ??? Obesity. ??? Smoking cigarettes. ??? Taking oral control, especially if you also use tobacco. ??? Physical inactivity. ??? Excessive alcohol use. ??? Use of illegal drugs, especially cocaine and methamphetamine. Other risk factors include: ??? High blood pressure (hypertension). ??? High cholesterol. ??? Diabetes mellitus. ??? Heart disease. ??? Being , , , or . ??? Being over age 60. ??? Family history of stroke. ??? Previous history of blood clots, stroke, or transient ischemic attack (TIA). ??? Sickle cell disease. ??? Being a woman with a history of preeclampsia. ??? Migraine headache. ??? Sleep apnea. ??? Irregular heartbeats, such as atrial fibrillation. ??? Chronic inflammatory diseases, such as rheumatoid arthritis or lupus. ??? Blood clotting disorders (hypercoagulable state). What are the signs or symptoms? Symptoms of this condition usually develop suddenly, or you may notice them after waking up from sleep. Symptoms may include sudden: ??? Weakness or numbness in your face, arm, or leg, especially on one side of your body. ??? Trouble walking or difficulty moving your arms or legs. ??? Loss of balance or coordination. ??? Confusion. ??? Slurred speech (dysarthria). ??? Trouble speaking, understanding speech, or both (aphasia). ??? Vision changes???such as double vision, blurred vision, or loss of vision???in one or both eyes. ??? Dizziness. ??? Nausea and vomiting. ??? Severe headache with no known cause. The headache is often described as the worst headache ever experienced. If possible, make note of the exact time that you last felt like your normal self and what time yoursymptoms started. Tell your health care provider. If symptoms come and go, this could be a sign of a warning stroke, or TIA. Get help right away, evenif you feel better. How is this diagnosed? This condition may be diagnosed based on: ??? Your symptoms, your medical history, and a physical exam. ??? CT scan of the brain. ??? MRI. ??? CT angiogram. This test uses a computer to take X-rays of your arteries. A dye may be injected into your blood to show the inside of your blood vessels more clearly. ??? MRI angiogram. This is a type of MRI that is used to evaluate the blood vessels. ??? Cerebral angiogram. This test uses X-rays and a dye to show the blood vessels in the brain and neck. You may need to see a health care provider who specializes in stroke care. A stroke specialist can be seen in person or through communication using telephone or television technology (telemedicine). Other tests may also be done to find the cause of the stroke, such as: ??? Electrocardiogram (ECG). ??? Continuous heart monitoring. ??? Echocardiogram. ??? Transesophageal echocardiogram (AMBER). ??? Carotid ultrasound. ??? A scan of the brain circulation. ??? Blood tests. ??? Sleep study to check for sleep apnea. How is this treated? Treatment for this condition will depend on the duration, severity, and cause of your symptoms and on the area of the brain affected. It is very important to get treatment at the first sign of stroke symptoms. Some treatments work better if they are done within 3???6 hours of the onset of stroke symptoms. These initial treatments may include: ??? Aspirin. ??? Medicines to control blood pressure. ??? Medicine given by injection to dissolve the blood clot (thrombolytic). ??? Treatments given directly to the affected artery to remove or dissolve the blood clot. Other treatment options may include: ??? Oxygen. ??? IV fluids. ??? Medicines to thin the blood (anticoagulants or antiplatelets). ??? Procedures to increase blood flow. Medicines and changes to your diet may be used to help treat and manage risk factors for stroke, such as diabetes, high cholesterol, and high blood pressure. After a stroke, you may work with physical, speech, mental health, or occupational therapists to help you recover. Follow these instructions at home: Medicines ??? Take [id number] and prescription medicines only as told by your health care provider. ??? If you were told to take a medicine to thin your blood, such as aspirin or an anticoagulant, take it exactly as told by your health care provider. ? Taking too much blood-thinning medicine can cause bleeding. ? If you do not take enough blood-thinning medicine, you will not have the protection that you need against another stroke and other problems. ??? Understand the side effects of taking anticoagulant medicine. When taking this type of medicine,make sure you: ? Hold pressure over any cuts for longer than usual. ? Tell your dentist and other health care providers that you are taking anticoagulants before you have any procedures that may cause bleeding. ? Avoid activities that may cause trauma or injury. Eating and drinking ??? Follow instructions from your health care provider about diet. ??? Eat healthy foods. ??? If your ability to swallow was affected by the stroke, you may need to take steps to avoid choking, such as: ? Taking small bites when eating. ? Eating foods that are soft or pureed. Safety ??? Follow instructions from your health care team about physical activity. ??? Use a walker or cane as told by your health care provider. ??? Take steps to create a safe home environment in order to reduce the risk of falls. This may include: ? Having your home looked at by specialists. ? Installing grab bars in the bedroom and bathroom. ? Using safety equipment, such as raised toilets and a seat in the shower. General instructions ??? Do not use any tobacco products, such as cigarettes, chewing tobacco, and e- cigarettes. If you need help quitting, ask your health care provider. ??? Limit alcohol intake to no more than 1 drink a day for non women and 2 drinks a day for men. One drink equals 12 oz of beer, 5 oz of wine, or 1?? oz of hard liquor. ??? If you need help to stop using drugs or alcohol, ask your health care provider about a referral to a program or specialist. ??? Maintain an active and healthy lifestyle. Get regular exercise as told by your health care provider. ??? Keep all follow-up visits as told by your health care provider, including visits with all specialists on your health care team. This is important. How is this prevented? Your risk of another stroke can be decreased by managing high blood pressure, high cholesterol, diabetes, heart disease, sleep apnea, and obesity. It can also be decreased by quitting smoking, limitingalcohol, and staying physically active. Your health care provider will continue to work with you on measures to prevent short-term and long-term complications of stroke. Get help right away if: ??? You have any symptoms of a stroke. BE FAST is an easy way to remember the main warning signs of a stroke: ? B - Balance. Signs are dizziness, sudden trouble walking, or loss of balance. ? E - Eyes. Signs are trouble seeing or a sudden change in vision. ? F - Face. Signs are sudden weakness or numbness of the face, or the face or eyelid drooping on oneside. ? A - Arms. Signs are weakness or numbness in an arm. This happens suddenly and usually on one side of the body. ? S - Speech. Signs are sudden trouble speaking, slurred speech, or trouble understanding what people say. ? T - Time. Time to call emergency services. Write down what time symptoms started. ??? You have other signs of a stroke, such as: ? A sudden, severe headache with no known cause. ? Nausea or vomiting. ? Seizure. ??? These symptoms may represent a serious problem that is an emergency. Do not wait to see if the symptoms will go away. Get medical help right away. Call your local emergency services (911 in the [place] Do not drive yourself to the hospital. Summary ??? An ischemic stroke (cerebrovascular accident, or CVA) is the sudden of brain tissue that occurs when an area of the brain does not get enough oxygen. ??? Symptoms of this condition usually develop suddenly, or you may notice them after waking up fromsleep. ??? It is very important to get treatment at the first sign of stroke symptoms. Stroke is a medical emergency that must be treated right away. This information is not intended to replace advice given to you by your health care provider. Make sure you discuss any questions you have with your health care provider. Document Released: 09/20/2006 Document Revised: 06/09/2019 Document Reviewed: 12/16/2016 [employer] Patient Education ?? 2019 [employer] Preventing Exposure to Secondhand Smoke, AdultPreventing Exposure to Secondhand Smoke, Adult Secondhand smoke is smoke that comes from burning tobacco. It includes smoke from cigarettes, pipes,or cigars. Being exposed to secondhand smoke is as dangerous as smoking. Common places you may be exposed to secondhand smoke include: ??? Work. ??? Public places, like restaurants, shopping centers, and [place]. ??? Home, especially if you live in an apartment building. How can secondhand smoke affect me? There is no safe level of secondhand smoke. Smoke from cigarettes contains thousands of chemicals, including chemicals that are known to cause cancer. Secondhand smoke can cause many health problems, such as: ??? Cancer. ??? Heart disease. ??? Stroke. ??? problems, such as loss (miscarriage), low weight, and early (premature). What actions can I take to prevent exposure to secondhand smoke? Do not smoke. ??? Keep your home smoke-free. ??? Do not allow smoking in your car. ??? Avoid public places where smoking is allowed. ??? Talk to your employer about your company's policies on smoking. ? Your workplace should have a policy smoking areas from nonsmoking areas. ? Smoking areas should have a system for ventilating and cleaning the air. Where to find more information Centers for Disease Control and Prevention (CDC): https://www.cdc.gov/tobacco/ [place] [employer]: https://www.cancer.org [place] [employer]: https://www.heart.org Summary ??? Secondhand smoke is smoke that comes from burning tobacco. Secondhand smoke exposes you to the dangers of smoking, even if you are not the one smoking. ??? There is no safe level of secondhand smoke. Several chemicals in secondhand smoke are known to cause cancer. Secondhand smoke can also cause many other health problems. ??? To prevent exposure to secondhand smoke, do not smoke, discourage others from smoking, keep yourhome and car smoke-free, and avoid places where smoking is allowed. This information is not intended to replace advice given to you by your health care provider. Make sure you discuss any questions you have with your health care provider. Document Released: 10/28/2005 Document Revised: 10/27/2018 Document Reviewed: 10/27/2018 [employer] Patient Education ?? 2019 [employer] Rehabilitation After a Stroke, AdultRehabilitation After a Stroke, Adult A stroke causes damage to the brain cells, which can affect your ability to walk, talk, or remember things. The impact of a stroke is different for everyone, and so is recovery. Some people have progress during the first few days after treatment. Others may take weeks or longer to make progress. Stroke rehabilitation includes a variety of treatments to help you recover and promote your independence after a stroke. You may not be able do everything that you did before the stroke, but you can learn ways to manage your lifestyle and be as independent as possible. Rehabilitation will start as soon as you are able to participate after your stroke, and it involves care from a team that may include: ??? Family and friends. Your loved ones know you best and can be very helpful in your recovery. ??? Physicians. ??? Nurses. ??? Physical and occupational therapists. ??? Speech-language therapists. ??? A cadd drafter. ??? A psychologist. ??? A older adult social work specialist. Keep open communication with all members of your care team. Share your medical records if needed, and take notes about each provider's recommendations. What is physical therapy? Physical therapists (PTs) help you to improve your coordination, balance, and muscle strength. Physical therapy may involve: ??? Range of motion exercises. ??? Help to move between lying, sitting, and standing positions. ??? Walking with a cane or walker, if needed. ??? Help using stairs. What is occupational therapy? Occupational therapists (OTs) help you rebuild your ability to do everyday tasks, such as brushing your teeth, going to the bathroom, eating, and getting dressed. Occupational therapy may also help with: ??? Vision. Visual scanning is a technique that is used to prevent falls. ??? Memory and cognitive training. This therapy includes problem-solving techniques and relearning tasks like making a phone call. ??? Fine muscle movements such as buttoning a shirt or picking up small objects. What is speech therapy? Speech-language therapists help you communicate. After a stroke, you may have problems understandingwhat people are saying, or you may have trouble writing, speaking, or finding the right word for what you want to say. You may also need speech therapy if you have difficulty swallowing while eating and drinking. Examples of speech-language therapies include: ??? Techniques to strengthen muscles used in swallowing. ??? Naming objects or describing pictures. This helps retrain the brain to recognize and remember words. ??? Exercises to strengthen the muscles involved in talking, including your tongue and lips. ??? Exercises to retrain your brain in understanding what you read and hear. How often will I need therapy? Therapy will begin as soon as you are able to participate, which is often within the first few days after a stroke. Sessions will be frequent at first. For example, you may have therapy 2???3 hours a day on most days of the week during the first few months. The intensity depends on the type and severity of your stroke. You may need therapy for several months. Therapy may take place in the hospital, at a rehabilitation center, or in your home. Are there any side effects of therapy? Therapy is safe and is usually well-tolerated. You may feel physically and mentally tired after therapy, especially during the first few weeks. Rest before therapy sessions if you need to so you can get the most out of your rehabilitation. Follow these instructions at home: ??? Involve your family and friends in your recovery, if possible. Having another person to encourage you is beneficial. ??? Follow instructions from your speech-language therapist, cadd drafter, or health care provider about what you can safely eat and drink. Eat healthy foods. If your ability to swallow was affected bythe stroke, you may need to take steps to avoid choking, such as: ? Taking small bites when eating. ? Eating foods that are soft or pureed. ? Drinking liquids that have been thickened. ??? Maintain social connections and interactions with friends, family, and community groups. This isan important part of your recovery. Communication challenges and physical challenges may cause you to feel isolated after a stroke. ??? Consider joining a support group that allows you to talk about the impact of stroke on your life. A psychologist or counselor may be recommended. Your emotional recovery from stroke is just as important as your physical recovery. ??? Keep all follow-up visits as told by your health care providers. This is important. Summary ??? Stroke rehabilitation includes a variety of treatments to help you recover and promote your independence after a stroke. ??? Rehabilitation will start as soon as you are able to participate after your stroke, and it includes care from a team of experts. ??? The intensity of therapy depends on the type and severity of your stroke. You may need therapy for several months. This information is not intended to replace advice given to you by your health care provider. Make sure you discuss any questions you have with your health care provider. Document Released: 10/09/2008 Document Revised: 06/10/2019 Document Reviewed: 09/21/2017 [employer] Patient Education ?? 2019 [employer] Speech-Language Therapy After a StrokeSpeech-Language Therapy After a Stroke You may have many physical changes after a stroke, and some of them may affect your ability to communicate. You may have problems talking, putting your thoughts into words, or using and understanding words. Speech-language therapy is a common treatment after a stroke. How are speech and language affected by a stroke? A stroke can damage your brain and nervous system. In most people, the left side of the brain controls language and speech, so damage to that area can affect those functions. You may have problems with: ??? Understanding spoken or written words. ??? Sharing your thoughts by talking. You may have trouble: ? Speaking clearly. ? Saying what you mean to say. What is aphasia? Aphasia is a condition that affects your ability to communicate with others. A stroke often causes aphasia because of damage to the left side of the brain. This is typically the side that controls the ability to talk and understand language. Symptoms of aphasia include: ??? Struggling to think of words and names of people, places, and objects. ??? Using the wrong words while talking. ??? Making up new words (without knowing it) that do not make sense to other people. ??? Problems putting words together into a sentence. ??? Difficulty understanding others while they talk. ??? Problems with listening, reading, writing, using numbers, or doing math. How can therapy help? Speech-language therapy is a common treatment during stroke recovery. It may include doing communication activities, exercising your speech muscles, and practicing speech. It may help you: ??? Learn to talk and communicate again. ??? Have conversations. ??? Use the right words to express ideas. ??? Put words together into sentences. ??? Learn to speak more clearly so others can understand you. ??? Use gestures, sign language, symbols, or other methods to express yourself (aided communication). These can be used in place of speech or to add to what you are able to say. Some aided communication may involve use of electronic devices. When will therapy start and where will I have therapy? Your health care provider will decide when it is best for you to start therapy. Some people start rehabilitation, including speech-language therapy, as soon as they are medically stable. This may be 24???48 hours after a stroke. Rehabilitation can take place in a few different places, based on your needs. It may take place in: ??? The hospital or an in-patient rehabilitation hospital. ??? An outpatient rehabilitation facility. ??? A long-term care facility. ??? A community rehabilitation clinic. ??? Your home. How can my family and friends support my recovery? Your family and friends can help by: ??? Being open about your problems. ??? Creating or modifying daily routines to make talking and communicating easier. ??? Lowering background noise. ??? Being patient when you are trying to express your thoughts or understand other people. ??? Getting your attention before talking to you. ??? Using short and simple sentences and giving you extra time to talk or to respond to questions. ??? Talking to you in a normal voice. ??? Keeping eye contact with you during conversation. ??? Paying attention to your body language. ??? Using pictures, written words, or symbols to help you understand. ??? Helping you to use aided communication. ??? Asking yes or no questions. ??? Praising your speech and progress. Summary ??? Since a stroke results from damage to your brain and nervous system, it can affect your speech and ability to use and understand language ??? Aphasia is a condition that affects your ability to communicate with others. A stroke often causes aphasia because of damage to the left side of the brain. ??? Speech-language therapy is a common treatment after a stroke. ??? Your family and friends can help by being open about your problems, giving you time to form words and sentences, and speaking in short, simple sentences. This information is not intended to replace advice given to you by your health care provider. Make sure you discuss any questions you have with your health care provider. Document Released: 01/07/2018 Document Revised: 01/07/2018 Document Reviewed: 01/07/2018 [employer] Patient Education ?? 2019 [employer] Follow Up [facility]11/06/2019 09:15:14With:Fili Ness MD Address: [phone] When:1 to 2 weeksWith:Wilson Mccall MD Address: [phone] When:2 to 3 weeksWith:Carol Ruff MD Address: [phone] When:2 to 3 weeks
--- OUTSIDE RECORDS SUMMARY | 2022-07-28 13:35 | XMS_ITS | Referral Summary ---
:1940 Author Organization [facility] nter Address [address] [place] [address]- Care Team Providers Name Role Phone Carol Ruff MD Primary Care Physician Encounter EVSA_FIN [id number] Date(s): 11/13/19 - 11/13/19 [facility] [address] [place], [place] [address] [phone] Discharge Disposition: Home/self care Attending Physician: Ed Huitron MD Problem List Condition Effective Dates Status Health [...] food, Maintenance Start Date: 10/25/19 Status: Ordered Procedures Procedure Date Related Diagnosis Body Site Status Bladder operation Completed Carcinoma Completed Hysterectomy Completed Knee replacement Completed Plantar fascia1 Completed Rectal fistula Completed Sclerotherapy of varicose vein2 Completed 1Left [id number] Social History Social History Type Response Smoking Status Former smoker, quit more tarik n 30 days ago; Stopped at age: 1979; entered on: 11/04/19
--- OUTSIDE RECORDS SUMMARY | 2022-07-28 13:35 | XMS_ITS | Clinical Summary ---
:1940 Author Organization [facility] Address [place] [address] Care Team Providers Name Role Phone Clinic, No Pcp Or Primary Care Provider Unavailable Allergies No known active allergies Medications Medication Sig Dispensed Refills Start Date End Date Status mirabegron Take 50 mg by mouth 0 Active EXTENDED-release once daily. (MYRBETRIQ) 50 mg tablet aspirin (ECOTRIN) 81 0 Active mg enteric coated tablet atorvastatin atorvastatin 20 mg tablet 0 11/17/2021 Active (LIPITOR) 20 mg TAKE 1 TABLET BY MOUTH EVERY DAY FOR 90 DAYS tablet calcium as directed 0 Active carbonate/vitamin D3 (CALCIUM + D ORAL) lidocaine/me-pedro pablo/men as directed 0 Active thol/camph (CBD-KINGS WITH LIDOCAINE TOP) olaparib (Lynparza) Lynparza 150 mg tablet 0 Active 150 mg tablet Take 2 tablets twice a day by oral route. midodrine TAKE 1 TABLET BY 0 01/03/2022 Ac tive (PROAMATINE) 2.5 mg MOUTH TWICE A DAY tablet FOR 90 DAYS multivitamins-minera as directed 0 Active ls-lutein (Complete MV Adult 50 Plus) 0.4 mg-300 mcg- 250 mcg tab Lactobac as directed 0 Active no.41/Bifidobact no.7 (PROBIOTIC-10 ORAL) atracurium 1 tablet 0 Active (TRACRIUM) 10 mg/mL injection warfarin (COUMADIN) Take 10 mg by mouth. 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 12/01/2021 History of cerebrovascular accident 12/01/2021 Orthostatic hypotension 12/01/2021 Peripheral vascular disease 12/01/2021 Malignant tumor of ovary 12/01/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 Senile purpura 12/01/2021 BRCA1 gene mutation positive 11/29/2021 Iron deficiency anemia 11/29/2021 Anxiety state 09/16/2020 Mixed hyperlipidemia 09/16/2020 Malignant essential hypertension 07/03/2020 Cerebellar stroke syndrome 10/24/2019 Cerebrovascular accident 10/04/2019 Encounters Date Type Specialty Care Team Description 06/01/2022 Telephone Alecia Waters PA Form (Faxed summary ) from Last 3 Months Immunizations Name Administration Dates Next Due COVID-19 vaccine (Go Kin Packs 03/20/2021 30mcg/0.3mL) PF, MDV Influenza Virus, Unspecified 06/28/2017 Influenza, High-dose Inactivated 06/30/2014 Influenza, IIV3 (Age >=3 years) 08/07/2013, 08/11/2012, 08/04 Social History Tobacco Use Types Packs/Day Years Used Date Former Smoker Cigarettes Smokeless Tobacco: Never Used Alcohol Use Standard Drinks/Week Comments Not Currently 0 (1 standard drink = 0.6 oz pure alcoho l) Sex Assigned at Date Recorded Not on file Obstetrics History Last Filed Vital Signs Vital Sign Reading Time Taken Comments Blood Pressure 106/68 03/24/2022 4:27 PM CDT Pulse 76 03/24/2022 4:27 PM CDT Temperature 36.4 ??C (97.5 ??F) 04/05/2018 8:22 AM CDT Respiratory Rate 18 04/05/2018 8:22 AM CDT Oxygen Saturation 97% 03/24/2022 4:27 PM CDT Inhaled Oxygen Concentration - - Weight 58.8 kg (129 lb 9.6 oz) 03/24/2022 4:27 PM CDT Height 165.1 cm (5' 5) 04/05/2018 8:22 AM CDT Body Mass Index 21.57 04/05/2018 8:22 AM CDT Plan of Treatment Health Maintenance Due Date Last Done Comments Tdap 1952 Depression screening for age 12+ 1953 BMI (ht and wt on same day) for 1959 age 18+ Zoster (shingles) series for age 1007/14/1960 50+ (1 of 2) Tetanus booster 1961 DEXA/DXA scan for age 65+ 2006 Medicare Wellness for age 65+ 2006 Pneumococcal series for age 65+ (1 2006 - PCV) COVID-19 vaccine series (2 - 04/10/2021 03/20/2021 Pfizer risk series) Influenza for age 65+ 06/04/2022 06/28/2017, 06/30/2014, 08/07/2013, Additional history exists Results Not on filefrom Last 3 Months Insurance Payer Benefit Plan / Subscriber ID Effective Phone Address T ype Group Dates MEDICARE - MEDICARE PB [id number] 2006-Pres ATTN: CLAIMS USE ONLY ONLY ent [address] [place] [address] MEDICARE - PB MEDICARE PB [id number] 2006-Pres ATTN: CLAIMS USE ONLY ONLY ent [address] [place] [address] COMMERCIAL COMMERCIAL [id number] 2018-Prese [phone] [address] [place] [address] Care Teams Crown Blocker Relationship Specialty Start Date End Date Clinic, No Pcp Or PCP - General 04/05/18 .
--- OUTSIDE RECORDS SUMMARY | 2022-07-28 13:35 | XMS_ITS | Referral Summary ---
:1940 Author Organization [facility] nter Address [address] [place] [address]- Care Team Providers Name Role Phone Carol Ruff MD Primary Care Physician Encounter EVSA_FIN [id number] Date(s): 11/06/19 - 11/08/19 [facility] ([facility] [address] 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 (Discharge Diagnosis) - Encephalopathy, unspecified (Discharge Diagnosis) - Chronic embolism and thrombosis of left popliteal vein (Discharge Diagnosis) - Embolism and thrombosis of superficial veins of left lower extremity (Discharge Diagnosis) - Acute embolism and thrombosis of left calf muscular vein (Discharge Diagnosis) - Personal history of transient ischemic attack (TIA), and cerebral infarction without residual deficits (Discharge Diagnosis) - Abnormal levels of other serum enzymes (Discharge Diagnosis) - Unspecified visual disturbance (Discharge Diagnosis) - Pain in left wrist (Discharge Diagnosis) - Other specified disorders of bone density and structure, unspecified site (Discharge Diagnosis) - NIHSS score 2 (Discharge Diagnosis) - 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 (Discharge Diagnosis) - Essential (primary) hypertension (Discharge Diagnosis) - Hyperlipidemia, unspecified (Discharge Diagnosis) - Discharge Disposition: Disch/Transfer to In Rehab Facility Attending Physician: Aaron Delarosa MD Admitting Physician: [...] 26.74 kg/m2 (11/06/19 2:14 PM) 1Result Comment: Spectrographic Analyst: [id number] DEMETRIUS [id number] Comment: Spectrographic Analyst: [id number] DEMETRIUS DUFF3Result Comment: Spectrographic Analyst: [id number] DEMETRIUS DUFF4 Result Comment: Spectrographic Analyst: [id number] COPPLOE [id number] Comment: Spectrographic Analyst: [id number] COPPLOE [id number] Comment: Spectrographic Analyst: [id number] COPPLOE [id number] Comment: Spectrographic Analyst: [id number] DEMETRIUS DUFF Problem List Condition Effective Dates Status [...] BID, 0, Maintenance Start Date: 11/05/19 Status: OrderedFioricet 325/50/40 1 Tab, PO, 0, Maintenance Start [...] Daily, 0, Maintenance Start Date: 11/15/19 Status: OrderedToradol 15 mg, IV Push, INJ, q8hr NOW PRN Pain, pts greater than 65 yo, less than 50 kg, or renal dysfunction (Scr greater than 1.5 mg/dL), for 3 Dose/Time, Start: 11/07/19 19:05:00 MST, Stop: Limited # of times Notes: Note dose, age, renal function, duration C: Anti-inflammatory (NSAID); I: Pain Control; SE: heartburn, nausea Start Date: 11/07/19 Stop Date: 11/08/19 Status: CompletedVitamin B12 50 mcg oral tablet 1 Tab [...] thousand/uL] 0.9 thousand/uL (11/07/19 7:14 AM) [facility] [place] [0.0-1.6 thousand/uL] 1.8 thousand/uL *H* (11/07/19 7:14 [...] Completed Sclerotherapy of varicose vein2 Completed 1Left [id number] Social History Social History Type Response Smoking Status Former smoker, quit more tarik n 30 days ago entered on: 11/15/19 Assessment and Plan Extracted from: Title: Discharge [...] needed for migraine headache . [facility]charge Disposition [facility]. Education and Follow-up Counseled: family. Discharge Planning: Follow-Up Details: Provider/Org Name: Carol Ruff MD Within: 2 to 3 weeks Address: ;[id number]; Provider/Org Name: Wilson Mccall MD Within: 2 to 3 weeks Address: ;[id number]; Provider/Org Name: Fili Ness MD Within: 1 to 2 weeks Address: ;[id number]; , . Extracted from: Title: Discharge Summary [...] MD Within: 2 to 3 weeks Address: ;[id number]; Provider/Org Name: Wilson Mccall MD Within: 2 to 3 weeks Address: ;[id number]; Provider/Org Name: Fili Ness MD Within: 1 to 2 weeks Address: ;[id number]; , . Extracted from: Title: Admission H & P Author: Aaron Delarosa MD Date: 11/06/19 New??multiple embolic??infarcts Recent CVA??10 days ago Suspect occult arrhythmia History of PFO Chronic left lower extremity DVT Encephalopathy related to CVA Chronic elevation of troponin ?? Plan: Continue Eliquis Neurochecks per protocol PT/OT/speech therapy?? Repeat CT of the head MRI of the brain was done yesterday estuardo wing the multiple infarcts AMBER was done on the last admission ??which revealed small PFO??but no thrombus Discussed [...] VTE Moderate Risk Hospital Discharge Instructions Patient Bvlngljtr50/03/2020 09:15:14Emotional Health After StrokeEmotional Health After Stroke [...] 12/24/2017 Document Revised: 12/24/2017 Document Reviewed: 12/24/2017 Elsevier Interactive Patient Education ?? 2019 Elsevier Inc. EV (Eng) Preventing Infection (CUSTOM)[facility] [address] [place] [id number] [place] [address] PREVENTING INFECTION Five things you [...] them with alcohol-based hand sanitizers. Rub the slot editor all over your hands, especially under your [...] to stay current on your immunizations. EV [facility] ([facility]) Admission Orientation (Custom)[facility] [address] [place] [address] Admission Orientation Welcome to [facility] ([facility]). You are a very important part of [...] must dial ?? 0??? for the hospital brim pouncer machine operator to assist you. TELEVISION The TV [...] care or safety, please speak to the charge account clerk or Property Management Supervisor. ??? If they are unable to resolve your concern/complaint, you can call the Customer Communication line at [phone]. ??? If your concerns are not satisfactorily resolved through the hospital, you may contact the [facility] or the Department of Health Services: ?? The Joint Commission: Call or email: [email or web address] ?? [place] [facility] Services: [address] [place] [address] Website: https://rafi.N2N Commerce.gov/ls/online_complaint/MEDComplaint.aspx FAMILY RAPID RESPONSE is a lifeline to immediate help when a patient or loved one feels the patient???s condition has worsened and immediate medical attention is needed. Dial [phone] from any hospital phone. PREVENTING INFECTION Five [...] them with alcohol-based hand sanitizers. Rub the slot editor all over your hands, especially under your [...] medicine and it is not working At [facility] ([facility]), we will work with you and your [...] rate ??? Shortness of breath FROM THE [employer]OT[employer] TIPPER Spiritual Care Services providing emotional and spiritual support At [facility], we are committed to providing comprehensive care by embracing the whole person inbody, mind and spirit. Board certified chaplains are available Wednesday - Wednesday 8 a.m.- 10:30 p.m. and s 8 a.m. ??? 4:30 p.m. to all [...] advanced health care planning To contact a calculation clerk, ask your nurse to call Spiritual Care Services Department: Member Of Technical Staff: [phone] Director: [phone] We???re here to support your tracie, beliefs [...] agencies for smoking-cessation information or classes: ??? [facility] Tobacco Use Prevention Program- Telephone number: (621)-571-3740 ??? [place] Smokers' Helpline:652.375.5545 or access via website: WWW.Youcruit.VDI Laboratory ??? [place] [employer] Telephone number: (912)-051-3811 ??? [place] Cancer Society Fall Prevention in the Home, [...] night-lights. ??? Place frequently used items in ukwh-df-pwdwx places. Lower the shelves around your home [...] the way. ??? Do not use floor paraguayan or wax that makes floors slippery. If [...] include working with a physical therapist or sap trainer to improve your strength, balance, and endurance. Where to find more information ??? Centers for Disease Control and Prevention, STEADI: https://www.cdc.gov ??? National [place] on Aging: https://qg3fdii.guzman.nih.gov Contact a health care provider if: ??? [...] 09/10/2003 Document Revised: 05/05/2018 Document Reviewed: 05/05/2018 Verdezyne Interactive Patient Education ?? 2019 [employer] Inc. Hand Washing, Blsn-su-QgeoZrer Washing Germs such as bacteria, viruses, and [...] leash. ? Touching money. ? Using household tactical air control party manager or poisonous chemicals. ? Handling dirty clothes, [...] a hand-washing wipe, spray, or gel (hand slot editor). Use one that contains at least 60% [...] 09/02/2009 Document Revised: 06/29/2018 Document Reviewed: 06/29/2018 [employer]de[employer]ne Interactive Patient Education ?? 2019 [employer]. Ischemic StrokeIschemic Stroke An ischemic stroke [...] these instructions at home: Medicines ??? Take dhze-qra-bxkkjnp and prescription medicines only as told by [...] 09/20/2006 Document Revised: 06/09/2019 Document Reviewed: 12/16/2016 [employer]ne Interactive Patient Education ?? 2019 [employer]. Preventing Exposure to Secondhand Smoke, AdultPreventing [...] for Disease Control and Prevention (CDC): https://www.cdc.gov/tobacco/ [place] Cancer Society: https://www.cancer.org [place] Heart Association: https://www.heart.org Summary ??? Secondhand smoke [...] 10/28/2005 Document Revised: 10/27/2018 Document Reviewed: 10/27/2018 ElseDome9 Security Interactive Patient Education ?? 2019 [employer]. Rehabilitation After a Stroke, AdultRehabilitation After [...] occupational therapists. ??? Speech-language therapists. ??? A physical education professor. ??? A psychologist. ??? A social media marketing specialist. Keep open communication with all members [...] ??? Follow instructions from your speech-language therapist, physical education professor, or health care provider about what you [...] 10/09/2008 Document Revised: 06/10/2019 Document Reviewed: 09/21/2017 [employer]ne Interactive Patient Education ?? 2019 [employer]. Speech-Language Therapy After a StrokeSpeech-Language Therapy [...] 01/07/2018 Document Revised: 01/07/2018 Document Reviewed: 01/07/2018 [employer] Interactive Patient Education ?? 2019 [employer]. Follow Up Care11/06/2019 09:15:14With:Fili Ness MD Address: [phone] When:1 to 2 weeksWith:Wilson Mccall MD Address: [phone] When:2 to 3 weeksWith:Carol Ruff MD Address: [phone] When:2 to 3 weeks
--- OUTSIDE RECORDS SUMMARY | 2022-07-28 13:35 | XMS_ITS | Referral Summary ---
:1940 Author Organization [facility] Address [address] [place] [address]- Care Team Providers Name Role Phone Carol Ruff MD Primary Care Physician Encounter EVSA_FIN [id number] Date(s): 10/24/19 - 10/26/[address] [address] [phone] Encounter Diagnosis HLD (hyperlipidemia) (Discharge Diagnosis) - 10/25/19 Stroke (Discharge Diagnosis) - 10/25/19 Elevated troponin (Discharge Diagnosis) - 10/25/19 HTN (hypertension) (Discharge Diagnosis) - 10/25/19 Dysarthria (Discharge Diagnosis) - 10/25/19 Acute embolic stroke (Discharge Diagnosis) - 10/25/19 Acute superficial venous thrombosis of left lower extremity (Discharge Diagnosis) - 10/26/19 Deep venous thrombosis of left popliteal vein (Discharge Diagnosis) - 10/26/19 Cerebral infarction, unspecified (Discharge Diagnosis) - Chronic embolism and thrombosis of left popliteal vein (Discharge Diagnosis) - Atrial septal defect (Discharge Diagnosis) - Embolism and thrombosis of superficial veins of left lower extremity (Discharge Diagnosis) - Aphasia (Discharge Diagnosis) - Personal history of malignant neoplasm of bladder (Discharge Diagnosis) - Personal history of nicotine dependence (Discharge Diagnosis) - Migraine, unspecified, not intractable, without status migrainosus (Discharge Diagnosis) - Dysarthria and anarthria (Discharge Diagnosis) - Essential (primary) hypertension (Discharge Diagnosis) - Hyperlipidemia, unspecified (Discharge Diagnosis) - Presence of right artificial knee joint (Discharge Diagnosis) - NIHSS score 1 (Discharge Diagnosis) - Other specified abnormal findings of blood chemistry (Discharge Diagnosis) - Abnormal electrocardiogram [ECG] [EKG] (Discharge Diagnosis) - Personal history of other malignant neoplasm of skin (Discharge Diagnosis) - Discharge Disposition: Home/self care Attending Physician: Celso Kee DO Admitting Physician: Celso Kee DO Vital Signs Most recent to 1 2 [...] 8:08 PM) 1Result Comment: NOTIFIED KIM OCONNOR MD~Food Manager: [id number] GIPP [id number] Comment: Food Manager: [phone] GIPP [id number] Comment: Food Manager: [id number] GIPP SOLITARIO Problem List Condition Effective Dates [...] BID thereafter, Maintenance, Route to Pharmacy Electronically, [id number] Start Date: 10/26/19 Status: OrderedOutpatient ST Outpatient ST, See Instructions, 1 Each, 0, 0, 10/26/19 14:02:00 MST, ST eval and tx for aphasia, cognition 3 x per week for 4 weeks, [id number], Maintenance, Print Requisition Start Date: 10/26/19 Status: [...] (10/25/19 1:53 AM) (10/24/19 9:47 PM) ABS [place] [0.0-1.6 thousand/uL] 0.8 thousand/uL 0.9 thous and/uL [...] Completed Sclerotherapy of varicose vein2 Completed 1Left [id number] Social History Social History Type Response Smoking Status Former smoker, quit more tarik n 30 days ago; Stopped at age: [age]; entered on: 10/24/19 Assessment and Plan Extracted from: Title: Discharge Summary Note Author: Isaiah Rossi MD Date : 10/27/19 ??1. apixaban(Eliquis 5 mg oral tablet) See Instructions Tab Special Instructions: 2 Tab PO BID x 7 days then 1 PO BID thereafter?? New Prescriptions ?? 2. TNF Medication(Outpatient ST) See Ins tructions Special Instructions: ST eval and tx for aphasia, cognition3 x per week for 4 weeks?Medications to Continue?? 3. cyclobenzaprine(cyclobenzaprine 10 mg oral tablet) Special Instructions: TK 1 T PO TID PRN?? 4. atorvastatin(atorvastatin 20 mg oral tablet) 20 mg= 1 Tab By mouth Tab once daily?? 5. amLODIPine(amLODIPine 2.5 mg oral tab let) 2.5 mg= 1 Tab By mouth Tab once daily?? 6. SUMAtriptan(SUMAtriptan 25 mg oral ta blet) 25 mg= 1 Tab By mouth Tab once daily as needed for migraine headache Special Instructions: may repeat dose after 2 hours up to a maximum of 200 mg in 24 hours?? 7. cholecalciferol(Vitamin D3 5,000 Unit oral capsule) 5,000 Unit= 1 Cap By mouth Cap once daily Special Instructions: with food?? 8. calcium-vitamin D(Calcium 600 +D Tab) 1 Tab By mouth Tab three times daily?? 9. cyanocobalamin(Vitamin B12 50 mcg ora l tablet) 50 mcg= 1 Tab By mouth Tab once daily?Discontinued Meds ?glucosamine (glucosamine hydrochloride 1500 mg oral tablet) 1 Tab By mouth Tab once daily?biotin By mouth once daily?Discharge ? Order Details: ?10/26/19 14:01:0 0 MST, Now, Home or self care ?Discharge Diet ? Order Details: ?10/26/19 14:01:0 0 MST, Regular diet ?Discharge Activity ? Order Details: ?10/26/19 14:01:0 0 MST, As tolerated ?Follow-Up Details: ?? Provider/Org Name: ??Carol Ruff MD ?? Within: ??1 to 3 days?? Address: ?;[id number]; ? Provider/Org Name: ??Wilson Mccall MD ?? Within: ??2 to 3 weeks?? Address: ?;[id number]; ?? Comments: ??Call for follow up appointme nt Take all medications as prescribed ? Provider/Org Name: ??Fili Ness ?? Within: ??As soon as possible?? Address: ?;[id number]; ?? Comments: ??cardiology f/u for loop charles rder Call for follow up appointment Take all medications as prescribed ? Extracted from: Title: Neuro Consultation Author: Gaurav Sharma DO Date: 10/25/19 Patient: JOSEPH VALDIVIA MRN: [id number](EV) Age: 79 years Sex: F : 1940 Associated Diagnoses: None Author: Gaurav Sharma DO Admission Information Date of Service: 10/25/2019 13:48. 10/25/2019 1:02 MST Several strokes in v arious parts of brain. Source of history: Self, nursing, chart review and participating physicians. Customer Training Specialist: Gaurav Sharma DO. History of Present Illness [...] hypertension, migraine, hyperlipidemia Procedure history: Bladder operation (4484678984). Plantar fascia (321694259). Comments: 10/25/2019 2:14 Reuben Lomas RN Tr aveler Left foot Sclerotherapy of varicose vein (26613083 6). Comments: 10/25/2019 2:15 Reuben Lomas RN Tr aveler Bilateral Knee replacement (851224817). 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 Hysterectomy (174526875). Carcinoma (800421549). Family History: Negative for stroke or a [...] Normal ABS Lymph 1.1 thousand/uL Normal ABS Haywood 0.8 thousand/uL Normal ABS Eos 0.2 thousand/uL [...] Average Glucose 105 mg/dL NA 10/25/2019 1:08 MST Glucose (POCT) Automated 102 mg/dL Normal 10/24/2019 [...] Normal ABS Lymph 1.3 thousand/uL Normal ABS [place] 0.9 thousand/uL Normal ABS Eos 0.2 thousand/uL [...] Results Radiologist's interpretation Name: JOSEPH VALDIVIA Account: [id number] : 1940 Result Date: 10/24/19 20:54 Verified By: Des Ace MD at 10/25/19 09:43 Report : XR Chest 1 View Portable IMPRESSION:No acute cardiopulmonary abno rmality. 10/25/19 09:42 ++++++++++++++++++++++++++++++++++++++++ +++++++++++++++ Impression and Plan Diagnosis Acute embolic stroke (OBG65-DN I63.9, Symone Piedra). Plan: The patients history, neurological examination, and neuroimaging are all consistent with an acute embolic stroke from an undetermined source. I discussed the case with the patients outpatient neur ologist last night. He informed me of e MRI findings. I have ordered a [...] of this patient. Gaurav Sharma D.O. Neurohospitalist [facility]. Pt Care Time: Zvoc-ff-ipry time with the patient including history of present illness, physical examination, reviewing labs and neuroimaging, and discussing the options and plan with the patient, flyin g and participating physicians > 65 aliya marcelle. Greater than 50% of this time was spent in direct patient counseling and coordination of care (end time 1355). Problem list: All Problems Stroke / [id number] / Confirmed Elevated troponin / [id number] / Confirme d. Addendum by Gaurav Sharma [...] Title: Cardiology Author: Fili Ness MD Date: #[id number] AMBER today. Extracted from: Title: Admission H [...] the Nurse Practitioner. Hospital Discharge Instructions Patient Wpqblqfnx71/21/2020 18:17:57Fall Prevention in the Home, Adult, Uqxp-ek-NiyeEfzy Prevention in the Home, Adult Falls can [...] Keep items that you use often in ppcq-ff-sbyrs places. Lower the shelves around your home [...] the way. ??? Do not use floor british virgin islander or wax that makes floors slippery. If [...] ??? Centers for Disease Control and Prevention, [place]: https://cdc.gov ??? National Prue on Aging: https://oa1tejp.guzman.nih.gov Contact a doctor if: ??? You are [...] 07/17/2010 Document Revised: 05/05/2018 Document Reviewed: 05/05/2018 HowGood Interactive Patient Education ?? 2019 [employer]. Hemorrhagic StrokeHemorrhagic Stroke A hemorrhagic stroke [...] or mental stress. General instructions ??? Take vvnc-sjj-elkqeid and prescription medicines only as told by [...] 03/10/2011 Document Revised: 02/25/2017 Document Reviewed: 09/13/2016 HowGood Interactive Patient Education ?? 2019 [employer]. Stroke Prevention, Havq-so-WhqeAmwonk Prevention Some medical conditions and lifestyle choices [...] healthy fats for cooking. These include: ? [place] oil. ? Canola oil. ? [place] oil. ? Counting how many carbohydrates you [...] lot. ? Feeling very tired. ??? Take ftmg-rxh-vrdaftp and prescription medicines only as told by your doctor. These may include aspirin or blood thinners (antiplatelets or anticoagulants). ??? Make sure that any other medical conditions you have are managed. Where to find more information ??? Indian Stroke Association: www.strokeassociation.org ??? National Stroke Association: [...] 12/22/2017 Elsevier Interactive Patient Education ?? 2019 [employer] Transesophageal EchocardiogramTransesophageal Echocardiogram Transesophageal echocardiogram (AMBER) [...] including vitamins, herbs, eye drops, creams, and qblr-kwc-nmsdvnqmrsdqipcm. ??? Any problems you or family members [...] diabetes medicines or blood thinners. ? Taking njja-zva-bqfljvb medicines, vitamins, herbs, and supplements. ? Taking [...] 12/11/2003 Document Revised: 12/17/2017 Document Reviewed: 12/17/2017 HowGood Interactive Patient Education ?? 2019 [employer]. Follow Up Care10/24/2019 18:17:57With:Fili Ness MD Address: [id number] When:As soon as possible Comments:cardiology f/u for loop recorder Call for follow up appointment Take all medications as prescribedWith:Wilson Mccall MD Address: [phone] When:2 to 3 weeks Comments:Call for follow up appointment Take all medications as prescribedWith: Carol Ruff MD Address: [phone] When:1 to 3 days
--- OUTSIDE RECORDS SUMMARY | 2022-07-28 13:36 | XMS_ITS | Referral Summary ---
:1940 Author Organization [facility] Address [address] [place] [address]- Care Team Providers Name Role Phone Carol Ruff MD Primary Care Physician Encounter EVSA_FIN [id number] Date(s): 11/17/19 - 11/15/19 [facility] [address] [place] [address]- [facility] Encounter Diagnosis Acute embolism and thrombosis of left popliteal vein (Discharge Diagnosis) - Cerebral infarction due to embolism of unspecified cerebral artery (Discharge Diagnosis) - Essential (primary) hypertension (Discharge Diagnosis) - Hyperlipidemia, unspecified (Discharge Diagnosis) - Other encephalopathy (Discharge Diagnosis) - alf (current) use of anticoagulants (Discharge Diagnosis) - Personal history of nicotine dependence (Discharge Diagnosis) - Discharge Disposition: Home/self care Attending Physician: Rolando Ortiz MD Vital Signs Most recent 1 2 [...] [0.5-5.9 thousand/uL] 0.5 thousand/uL (11/15/19 8:33 AM) [place] Abs Man [0.0-1.6 thousand/uL] 2.1 thousand/uL *H* (11/15/19 8:33 AM) eGFR Afr/Amer >60 mL/min/1.73m2 *NA* (11/15/19 AM) Anion Gap [10-20] 15 (11/15/19 8:33 AM) BUN [10-20 mg/dL] 13 mg/dL (11/15/19 AM) Chloride [98-107 mmol/L] 98 mmol/L (11/15/19: AM) CO2 [23-31 mmol/L] 25 mmol/L (11/15/19 AM) Creatinine [0.57-1.25 mg/dL] 0.71 mg/dL (11/15/19 AM) Hct [37.0-47.0 %] 35.6 % *L* (11/15/19 AM) Hgb [11.5-16.0 gm/dL] 12.4 gm/dL (11/15/19 AM) MCH [27.0-34.0 pg] 31.0 pg (11/15/19: AM) MCHC [32.0-37.0 gm/dL] 34.8 gm/dL (11/15/19: AM) MCV [80.0-100.0 fL] 89.0 fL (11/15/19: AM) Man Bands [0-5 %] 2 % (11/15/19 AM) Man Eos [0-9 %] 1 % (11/15/19: AM) Man Lymphs [10-55 %] 3 % *L* (11/15/19 AM) Man Monos [0-15 %] 14 % (11/15/19: AM) Man Segs [35-80 %] 80 % (11/15/19: AM) Plt [130-400 thousand/uL] 149 thousand/uL (11/15/19: AM) Plt Est [Adequate] Adequate (11/15/19 AM) RBC [4.00-5.40 million/uL] 4.00 million/uL (11/15/19: AM) RBC Morph Normal (11/15/19 AM) RDW [11.5-16.0 %] 13.1 % (11/15/19 AM) Sodium [136-145 mmol/L] 134 mmol/L *L* (11/15/19 8:33 AM) WBC [4.8-10.8 thousand/uL] 15.3 thousand/uL *H* (11/15/19 8:33 AM) Potassium [3.5-5.1 mmol/L] 3.6 mmol/L (11/15/19 8:33 AM) Calcium [8.4-10.2 mg/dL] 8.8 mg/dL (11/15/19 8:33 AM) Procedures Procedure Date Related Diagnosis Body Site Status Bladder operation Completed Carcinoma Completed Hysterectomy Completed Knee replacement Completed Plantar fascia1 Completed Rectal fistula Completed Sclerotherapy of varicose vein2 Completed 1Left zbaz4Ngrhcnrvl Social History Social History Type Response Smoking Status Former smoker, quit more tarik n 30 days ago entered on: 11/15/19 Hospital Discharge Instructions Patient Oozpgcmbw61/10/2020 08:25:34Inferior Vena Cava Filter Insertion, Care AfterInferior [...] and water are not available, use hand ornamental metal worker apprentice. ? Change your dressing as told by [...] health care providerapproves. General instructions ??? Take gxwp-uuw-wbzgcvu and prescription medicines only as told by [...] 07/11/2014 Document Revised: 08/11/2017 Document Reviewed: 08/11/2017 [employer] Interactive Patient Education ?? 2019 [employer]. Monitored Anesthesia CareMonitored Anesthesia Care Anesthesia is [...] including vitamins, herbs, eye drops, creams, and hehe-xjd-dbzlpcrqqhcreupg. ??? Any use of steroids (by mouth [...] 06/16/2006 Document Revised: 02/26/2017 Document Reviewed: 01/10/2017 [employer] Interactive Patient Education ?? 2019 [employer]. Surgical Site Infections - Bahraini (Custom) (DPARRISH)FREQUENTLY ASKED QUESTIONS ABOUT Surgical Site [...] In most cases, you should get antibiotics zzwran98 minutes before the surgery starts and the [...] ask your doctor or nurse. [facility] 08:25:34With:Ed Huitron Address: [address] [address] [phone] Business (1) When:1 to 3 daysWith:Carol Ruff Address:Unknown When:1 to 3 days
--- OUTSIDE RECORDS SUMMARY | 2022-07-28 13:36 | XMS_ITS | Referral Summary ---
:1940 Author Organization [facility] Address [address] [facility] [place] [address]- Care Team Providers Name Role Phone Carol Ruff MD Primary Care Physician Encounter EVSA_FIN [id number] Date(s): 11/08/19 - 11/25/[address] [place] [facility] [id number]- [facility] Encounter Diagnosis Acute embolic stroke (Discharge Diagnosis) - 11/19/19 HTN (hypertension) (Discharge Diagnosis) - 11/19/19 Depression (Discharge Diagnosis) - 11/19/19 Deep venous thrombosis of left popliteal vein (Discharge Diagnosis) - 11/19/19 Discharge Disposition: Home/self care Attending Physician: Jonathan Taylor MD Admitting Physician: Jonathan Taylor MD Vital Signs Most recent 1 2 3 4 5 6 7 8 9 10 to oldest [Reference Range]: Bed alarm on Yes Yes Yes (11/25/19 4:00 AM) (11/25/19 2:00 AM) (11/25/19 12:00 AM) Pain Scale Numeric Rating Scale Numeric Rating Scale Non-ve rbal Pain Scale (NVPS) Numeric Rating Scale Numeric Rating Scale Numeric Rating Scale N umeric Rating Scale Numeric Rating Scale Numeric Rating Scale Numeric Rating Sca le Used (11/25/19 1:35 AM) (11/25/19 1:05 AM) (11/23/19 7:00 PM) (11/05 2:00 AM) (11/21/19 8:00 PM) (11/21/19 8:00 AM) (11/20/19 12:00 PM) (11/19/19 8:00 PM) (11/19/19 8:12 AM) (11/15/19 6:00 PM) Temperature 36.4 deg C 36.6 deg C 36.3 deg C 37.1 deg C 36.8 deg C 36.5 deg C 36.6 deg C 35.6 deg C 36.4 deg C 36.8 deg C PO [36-37.5 (11/25/19 4:00 AM) (11/24/19 8:00 PM) (11/24/19 2:00 PM) (11/24/19 4:15 AM) (11/23/19 7:15 PM) (11/23/19 2:00 PM) (11/23/19 4:00 AM) *L* (11/22/19 12:00 PM) (11/22/19 4:00 AM) deg C] (11/22/19 8:00 PM) Temp 35.7 deg C Tympanic *L* [36.2-38.1 (11/19/19 2:20 PM) deg C] Heart Rate 80 bpm 80 bpm 80 bpm 80 bpm 91 bpm 89 bpm 95 bpm 90 bpm 100 bpm 97 bpm [51-119 bpm] (11/25/19 10:40 AM) (11/25/19 7:45 AM) (11/25/19 4:00 AM) (11/24/19 8:00 PM) (11/24/19 2:00 PM) (11/24/19 4:15 AM) (11/23/19 7:15 PM) (11/23/19 2 :00 PM) (11/23/19 4:00 AM) (11/22/19 8:00 PM) Blood 130/72 mm Hg 130/72 mm Hg 130/72 mm Hg 142/85 mm Hg 121/70 m m Hg 114/60 mm Hg 104/62 mm Hg 119/58 mm Hg 128/70 mm Hg 122/63 mm Hg Pressure (11/25/19 10:40 AM) (11/25/19 7:45 AM) (11/25/19 4:00 AM) *H* (11/24/19 2:00 PM) (11/24/19 4:15 AM) (11/23/19 7:15 PM) (11/23/19 2:00 PM) (11/23/19 4 :00 AM) (11/22/19 8:00 PM) [91-139/50-9 (11/24/19 8:00 PM) 0 mm Hg] Resp Rate 18 Breaths/Min 18 Breaths/Min 18 Breaths/Min 18 Breaths/Mi n 18 Breaths/Min 18 Breaths/Min 16 Breaths/Min 16 Breaths/Min 16 Breaths/Min 16 Breaths/Min (Monitor) (11/25/19 4:00 AM) (11/24/19 8:00 PM) (11/24/19 2:00 PM) (11/24/19 4:15 AM) (11/23/19 7:15 PM) (11/23/19 2:00 PM) (11/23/19 4:00 AM) (11/22/19 8:00 PM) (11/22/19 12:00 PM) (11/22/19 4:00 AM) [13-20 Breaths/Min] SPO2 [87-100 96 % 98 % 95 % 92 % 96 % 95 % 93 % 95 % 94 % 91 % %] (11/25/19 4:00 AM) (11/24/19 8:00 PM) (11/24/19 2:00 PM) (11/05 10/23 4:15 AM) (11/23/19 7:15 PM) (11/23/19 2:00 PM) (11/23/19 4:00 AM) (11/22/19 8:00 PM) (11/22/19 12:00 PM) (11/22/19 4:00 AM) Oxygen 99 L/min Amount (11/12/19 2:00 PM) Oxygen Room air Room air Room air Room air Room air Room air Room air Maribeth m air Room air Room air Method (11/25/19 4:00 AM) (11/24/19 8:00 PM) (11/24/19 2:00 PM) (11/05 10/23 4:15 AM) (11/23/19 7:15 PM) (11/23/19 2:00 PM) (11/22/19 8:00 PM) (11/22/19 12:00 PM) (11/21/19 9:00 PM) (11/21/19 1:00 PM) Blood 130 mg/dL 109 mg/dL 111 mg/dL 96 mg/dL 111 mg/dL 152 mg/dL 115 m g/dL 137 mg/dL 122 mg/dL 109 mg/dL Glucose, (11/24/19 8:00 PM) (11/23/19 11:09 PM) (11/22/19 8:00 AM) (11/21/19 7:00 AM) (11/20/19 8:00 AM) *H* (11/18/19 7:00 AM) *H* (11/16/19 7: 10 PM) (11/16/19 8:00 AM) Point of (11/18/19 8:34 PM) (11/17/19 9: 00 AM) Care [70-130 mg/dL] Glucose 95 mg/dL 102 mg/dL 106 mg/dL 91 mg/dL Level [70-99 (11/24/19 4:32 AM) *H* *H* (11/09/19 4:49 AM) mg/dL] (11/23/19 5:13 AM) (11/16/19 5:13 AM) Height 165.1 cm (11/08/19 11:55 PM) Drug Calc 70.5 kg Weight (kg) (11/08/19 11:55 PM) Daily Weight 72.4 kg (11/19/19 11:00 AM) Weight Actual Actual Method (11/19/19 11:00 AM) (11/08/19 11:55 PM) BMI 25.86 kg/m2 (11/08/19 11:55 PM) Problem List Condition Effective Dates Status Health Status Informant Stroke(Confirmed) Active Acute embolic stroke(Confirmed) Active Shingles(Confirmed) Active Elevated troponin(Confirmed) Active 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(Confirmed) Acute superficial venous thrombosis of Active left lower extremity(Confirmed) Deep venous thrombosis of left Active popliteal vein(Confirmed) Allergies, Adverse Reactions, Alerts No Known Allergies Medications acetaminophen oral TABLET 650 mg, PO, Tab, q6hr Priority: Routine PRN Pain Mild (1-3), Start: 11/09/19 15:29:00 MST Notes: NTE 4 gms of Acetaminophen in 24 hrs C: Pain Medication; I: Pain; SE: hypotension Start Date: 11/09/19 Stop Date: 11/25/19 Status: DiscontinuedamLODIPine 5 mg, PO, Tab, Start: 11/25/19 7:00:00 MST Start Date: 11/25/19 Stop Date: 11/25/19 Status: CompletedamLODIPine 2.5 mg oral tablet 1 Tab Tab, PO, qDay, Qty: 30 Tab, 0, Maintenance Start Date: 11/27/19 Status: Orderedatorvastatin 20 mg, PO, qDay, Qty: 90 Tab, 0, Maintenance Start Date: 11/27/19 Status: Orderedbethanechol 10 mg, Tab, PO, TID, Qty: 90 Tab, 0, x14 days (started 11/26/19)[id number]----- , Maintenance Start Date: 11/27/19 Status: OrderedCalcium 600 +D Tab 1 Tab Tab, PO, TID, 0, Maintenance Start Date: 10/25/19 Status: Orderedcitalopram 10 mg, PO, Daily, 0, Maintenance Start Date: 11/15/19 Status: OrderedColace 100 mg, PO, BID, 0, Maintenance Start Date: 11/15/19 Status: OrderedEliquis 5 mg oral tablet 1 Tab Tab, PO, BID, Qty: 60 Tab, 0, Maintenance Start Date: 11/27/19 Status: OrderedFlorastor 250 mg, PO, BID, 0, Maintenance Start Date: 11/15/19 Status: OrderedguaiFENesin 600 mg oral tablet, extended release 1 Tab, PO, BID, PRN, Cough, 0, Maintenance Start Date: 11/15/19 Status: Orderedondansetron 4 mg oral tablet 1 Tab, PO, q4hr, PRN, Nausea, 0, Maintenance Start Date: 11/15/19 Status: Orderedsenna 17.2 mg, PO, Daily, PRN, as needed for constipation, 0, Maintenance Start Date: 11/15/19 Status: OrderedVitamin B12 50 mcg oral tablet 1 Tab Tab, PO, qDay, 0, Maintenance Start Date: 10/25/19 Status: OrderedVitamin D3 5,000 Unit oral capsule 1 Cap Cap, PO, qDay, 0, with food, Maintenance Start Date: 10/25/19 Status: Ordered Results Most recent 1 2 3 4 5 6 7 8 9 10 11 to oldest [Reference Range]: Urine WBCs 5-10 per HPF [None per *ABN* HPF] (11/09/19 12:49 AM) CBC Scan Auto Diff Auto Diff Auto Diff (11/23/19 5:13 AM) (11/16/19 5:13 AM) (11/09/19 4:49 AM) Lymphs 5.9 % 5.4 % 10.4 % [10.0-55.0 %] *L* *L* (11/09/19 4:49 AM) (11/23/19 5:13 AM) (11/16/19 5:13 AM) Monos. 12.9 % 8.7 % 12.3 % [0.0-15.0 %] (11/23/19 5:13 AM) (11/16/19 5:13 AM) (11/09/19 4:49 AM) Baso. 0.7 % 0.5 % 0.8 % [0.0-3.0 %] (11/23/19 5:13 AM) (11/16/19 5:13 AM) (11/09/19 4:49 AM) Neuts 79.3 % 85.1 % 75.3 % [35.0-80.0 %] (11/23/19 5:13 AM) *H* (11/09/19 4:49 AM) (11/16/19 5:13 AM) Eos. [0.0-9.0 1.2 % 0.3 % 1.2 % %] (11/23/19 5:13 AM) (11/16/19 5:13 AM) (11/09/19 4:49 AM) Glucose Level 95 mg/dL 102 mg/dL 106 mg/dL 91 mg/dL [70-99 mg/dL] (11/24/19 4:32 AM) *H* *H* (11/09/19 4:49 AM) (11/23/19 5:13 AM) (11/16/19 5:13 AM) UA Squam 0-10 per HPF Epithelial *NA* [0-10 per (11/09/19 12:49 AM) HPF] Urine Culture Not Indicated 1 if Indicated *NA* (11/09/19 12:49 AM) AST [5-34 71 Units/L 33 Units/L 76 Units/L 196 Units/L Units/L] *H* (11/16/19 5:13 AM) *H* *H* (11/23/19 5:13 AM) (11/10/19 5:17 AM) (11/09/19 4:49 AM) ABS Neut 12.1 thousand/uL 15.0 thousand/uL 8.7 thousand/uL [1.7-8.6 *H* *H* *H* thousand/uL] (11/23/19 5:13 AM) (11/16/19 5:13 AM) (11/09/19 4:49 AM) eGFR >60 mL/min/1.73m2 >60 mL/min/1.73m2 >60 mL/min/1.73m2 >60 mL/min/1.73m2 >60 mL/min/1.73m2 Non- *NA* *NA* *NA* *NA* *NA* Am (11/24/19 4:32 AM) (11/23/19 5:13 AM) (11/16/19 5:13 AM) (11/04 11/23 4:05 AM) (11/09/19 4:49 AM) eGFR Afr/Amer >60 mL/min/1.73m2 >60 mL/min/1.73m2 >60 mL/min/1.73m2 >60 mL/min/1.73m2 >60 mL/min/1.73m2 *NA* *NA* *NA* *NA* *NA* (11/24/19 4:32 AM) (11/23/19 5:13 AM) (11/16/19 5:13 AM) (11/04 11/23 4:05 AM) (11/09/19 4:49 AM) A/G Ratio 0.8 1.0 0.9 [0.8-1.6] (11/23/19 5:13 AM) (11/16/19 5:13 AM) (11/09/19 4:49 AM) ABS Baso 0.1 thousand/uL 0.1 thousand/uL 0.1 thousand/uL [0.0-0.3 (11/23/19 5:13 AM) (11/16/19 5:13 AM) (11/09/19 4:49 AM) thousand/uL] ABS Eos 0.2 thousand/uL 0.1 thousand/uL 0.1 thousand/uL [0.0-1.0 (11/23/19 5:13 AM) (11/16/19 5:13 AM) (11/09/19 4:49 AM) thousand/uL] ABS Lymph 0.9 thousand/uL 0.9 thousand/uL 1.2 thousand/uL [0.5-5.9 (11/23/19 5:13 AM) (11/16/19 5:13 AM) (11/09/19 4:49 AM) thousand/uL] ABS [place] 2.0 thousand/uL 1.5 thousand/uL 1.4 thousand/uL [0.0-1.6 *H* (11/16/19 5:13 AM) (11/09/19 4:49 AM) thousand/uL] (11/23/19 5:13 AM) Albumin 2.4 gm/dL 2.7 gm/dL 2.8 gm/dL [3.4-5.0 *L* *L* *L* gm/dL] (11/23/19 5:13 AM) (11/16/19 5:13 AM) (11/09/19 4:49 AM) Alkphos 290 Units/L 153 Units/L 250 Units/L 285 Units/L [40-150 *H* *H* *H* *H* Units/L] (11/23/19 5:13 AM) (11/16/19 5:13 AM) (11/10/19 5:17 AM) (11/09/19 4:49 AM) ALT [0-55 74 Units/L 28 Units/L 104 Units/L 180 Units/L Units/L] *H* (11/16/19 5:13 AM) *H* *H* (11/23/19 5:13 AM) (11/10/19 5:17 AM) (11/09/19 4:49 AM) Anion Gap 13 14 11 14 [5-15] (11/24/19 4:32 AM) (11/23/19 5:13 AM) (11/16/19 5:13 AM) (11/09/19 4: 49 AM) Appearance Clear [Clear] (11/09/19 12:49 AM) Bili Total 0.5 mg/dL 0.5 mg/dL 0.5 mg/dL [0.2-1.2 (11/23/19 5:13 AM) (11/16/19 5:13 AM) (11/09/19 4:49 AM) mg/dL] BUN [10-20 12 mg/dL 13 mg/dL 14 mg/dL 13 mg/dL 11 mg/dL mg/dL] (11/24/19 4:32 AM) (11/23/19 5:13 AM) (11/16/19 5:13 AM) (11/04 11/23 4:05 AM) (11/09/19 4:49 AM) Chloride 96 mmol/L 95 mmol/L 97 mmol/L 101 mmol/L [98-107 *L* *L* *L* (11/09/19 4:49 AM) mmol/L] (11/24/19 4:32 AM) (11/23/19 5:13 AM) (11/16/19 5:13 AM) CO2 [23-31 29 mmol/L 29 mmol/L 30 mmol/L 25 mmol/L mmol/L] (11/24/19 4:32 AM) (11/23/19 5:13 AM) (11/16/19 5:13 AM) ( 0 4:49 AM) Color Straw [Yellow] (11/09/19 12:49 AM) Creatinine 0.63 mg/dL 0.59 mg/dL 0.71 mg/dL 0.69 mg/dL 0.67 mg/dL [0.57-1.11 (11/24/19 4:32 AM) (11/23/19 5:13 AM) (11/16/19 5:13 AM) (11/15/19 4:05 AM) (11/09/19 4:49 AM) mg/dL] Globulin 2.9 gm/dL 2.7 gm/dL 3.1 gm/dL [2.5-4.1 (11/23/19 5:13 AM) (11/16/19 5:13 AM) (11/09/19 4:49 AM) gm/dL] Hct 30.7 % 33.3 % 36.3 % [37.0-47.0 %] *L* *L* *L* (11/23/19 5:13 AM) (11/16/19 5:13 AM) (11/09/19 4:49 AM) Hgb 10.5 gm/dL 11.3 gm/dL 12.4 gm/dL [11.5-16.0 *L* *L* (11/09/19 4:49 AM) gm/dL] (11/23/19 5:13 AM) (11/16/19 5:13 AM) MCH 30.7 pg 31.1 pg 31.6 pg [27.0-34.0 (11/23/19 5:13 AM) (11/16/19 5:13 AM) (11/09/19 4:49 AM) pg] MCHC 34.1 gm/dL 34.0 gm/dL 34.1 gm/dL [32.0-37.0 (11/23/19 5:13 AM) (11/16/19 5:13 AM) (11/09/19 4:49 AM) gm/dL] MCV 90.0 fL 91.5 fL 92.6 fL [80.0-100.0 (11/23/19 5:13 AM) (11/16/19 5:13 AM) (11/09/19 4:49 AM) fL] Mg [1.6-2.6 1.9 mg/dL 1.7 mg/dL 1.7 mg/dL 2.0 mg/dL mg/dL] (11/24/19 4:32 AM) (11/23/19 5:13 AM) (11/16/19 5:13 AM) (11/09/19 4: 49 AM) Plt [130-400 268 thousand/uL 122 thousand/uL 141 thousand/uL 147 thousan d/uL thousand/uL] (11/23/19 5:13 AM) *L* (11/15/19 4:05 AM) (11/09/19 4:49 AM) (11/16/19 5:13 AM) Protein, 5.3 gm/dL 5.4 gm/dL 5.9 gm/dL Total *L* *L* *L* [6.4-8.3 (11/23/19 5:13 AM) (11/16/19 5:13 AM) (11/09/19 4:49 AM) gm/dL] RBC 3.41 million/uL 3.65 million/uL 3.93 million/uL [4.00-5.40 *L* *L* *L* million/uL] (11/23/19 5:13 AM) (11/16/19 5:13 AM) (11/09/19 4:49 AM) RDW 13.3 % 13.0 % 12.9 % [11.5-16.0 %] (11/23/19 5:13 AM) (11/16/19 5:13 AM) (11/09/19 4:49 AM) Sodium 134 mmol/L 134 mmol/L 134 mmol/L 136 mmol/L [134-144 (11/24/19 4:32 AM) (11/23/19 5:13 AM) (11/16/19 5:13 AM) (11/09 4:49 AM) mmol/L] Specific 1.008 [place] (11/09/19 12:49 AM) [1.008-1.020] UBacteria 1+ per HPF [None per *ABN* HPF] (11/09/19 12:49 AM) UBilirubin Negative [Negative] (11/09/19 12:49 AM) UBlood 1+ [Negative] *ABN* (11/09/19 12:49 AM) UGlucose Negative [Negative] (11/09/19 12:49 AM) UKetones Negative [Negative] (11/09/19 12:49 AM) ULeukocyte Negative Esterase (11/09/19 12:49 AM) [Negative] UMucous Rare per LPF *ABN* (11/09/19 12:49 AM) UNitrite Negative [Negative] (11/09/19 12:49 AM) UpH [5.0-8.0] 6.0 (11/09/19 12:49 AM) UProtein Negative [Negative] (11/09/19 12:49 AM) URBC [0-4 per 0-4 per HPF HPF] *NA* (11/09/19 12:49 AM) WBC [4.8-10.8 15.3 thousand/uL 17.6 thousand/uL 11.5 thousand/uL thousand/uL] *H* *H* *H* (11/23/19 5:13 AM) (11/16/19 5:13 AM) (11/09/19 4:49 AM) Blood 130 mg/dL 109 mg/dL 111 mg/dL 96 mg/dL 111 mg/dL 152 mg/dL 115 m g/dL 137 mg/dL 137 mg/dL 122 mg/dL 109 mg/dL Glucose, (11/24/19 8:00 PM) (11/23/19 11:09 PM) (11/22/19 8:00 AM) (11/21/19 7:00 AM) (11/20/19 8:00 AM) *H* (11/18/19 7:00 AM) *H* *H* (11/04 12/21 7:10 PM) (11/16/19 8:00 AM) Point of Care (11/18/19 8:34 PM) ( 9:00 AM) (11/17/19 9:00 AM) [70-130 mg/dL] Potassium 3.9 mmol/L 3.7 mmol/L 3.8 mmol/L 4.3 mmol/L [3.5-5.1 (11/24/19 4:32 AM) (11/23/19 5:13 AM) (11/16/19 5:13 AM) (11/09 4:49 AM) mmol/L] Calcium 8.3 mg/dL 8.5 mg/dL 8.6 mg/dL 8.5 mg/dL [8.4-10.2 *L* (11/23/19 5:13 AM) (11/16/19 5:13 AM) (11/09/19 4:49 AM) mg/dL] (11/24/19 4:32 AM) 1Result Comment: Urine Culture not ordered as both of the following conditions exist: UA Blood is FEWER THAN 3+ or Large UA WBC < 10 Procedures Procedure Date Related Diagnosis Body Site Status ivc filter 11/14/19 Completed Bladder operation Completed Carcinoma Completed Hysterectomy Completed Knee replacement Completed Plantar fascia1 Completed Rectal fistula Completed Sclerotherapy of varicose vein2 Completed 1Left [id number] Social History Social History Type Response Smoking Status Former smoker, quit more tarik n 30 days ago; Stopped at age: [age]; entered on: 11/27/19 Assessment and Plan Extracted from: Title: Clinical Document Author: Cristofer Morris MD Date: 11/09/19 See consult note Extracted from: Title: Dr. Taylor Acute Rehab History & Author: Estevan Taylor MD Date: 11/09/19 Physical/ASHLEE Impression and Plan Problem list: All Problems Stroke / [id number] / Confirmed Acute embolic stroke / [id number] / Conf irmed Shingles / [id number] / Confirmed Elevated troponin / [id number] / Confirme d 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 / 072156840 / Confirmed Acute superficial venous thrombosis of l eft lower extremity / [id number] / Confirmed Deep venous thrombosis of left popliteal vein / [id number] / Confirmed. Extracted from: Title: Consultation Author: Cristofer Morris MD Date: 11/09/19 Gait instability with ADL dysfunction d ue to recent CVA. New acute multi-embolic cerebrovascular accident. Recent??cognitive impairment secondary to above. Left popliteal vein deep venous thrombo sis Recent Elevated troponin, appears chron ic. Recent cerebrovascular accident 020. Left wrist pain, likely strain from a f all. ?? HTN HLP h/o Migraine Transaminitis PLAN: - Admit under the service of Dr. Diana Dixon in - For PT/OT/ST eval. - Resume atorvastatin for CVA. Also for ??good BP control. Patient is also on e liquis. - Amlodipine for HTN. - Atorvastatin for HLP. - Eliquis for DVT. - Trend AST/ALT/Alk phos levels. - To f/u with Cardio and Neuro as an OP . - DVT ppx - on eliquis. Hospital Discharge Instructions Patient Skaizeaqp10/05/2020 16:52:55Deep Vein ThrombosisDeep Vein Thrombosis Deep vein thrombosis (DVT) is a condition in which a blood clot forms in a deep vein, such as a lower leg, thigh, or arm vein. A clot is blood that has thickened into a gel or solid. This condition is dangerous. It can lead to serious and even life-threatening complications if the clot travels to the lungs and causes a blockage (pulmonary embolism). It can also damage veins in the leg. This can result in leg pain, swelling, discoloration, and sores (post-thrombotic syndrome). What are the causes? This condition may be caused by: ??? A slowdown of blood flow. ??? Damage to a vein. ??? A condition that causes blood to clot more easily, such as an inherited clotting disorder. What increases the risk? The following factors may make you more likely to develop this condition: ??? Being overweight. ??? Being older, especially over age 60. ??? Sitting or lying down for more than four hours. ??? Being in the hospital. ??? Lack of physical activity (sedentary lifestyle). ??? , being in childbirth, or having recently given . ??? Taking medicines that contain estrogen, such as medicines to prevent . ??? Smoking. ??? A history of any of the following: ? Blood clots or a blood clotting disease. ? Peripheral vascular disease. ? Inflammatory bowel disease. ? Cancer. ? Heart disease. ? Genetic conditions that affect how your blood clots, such as Factor V Leiden mutation. ? Neurological diseases that affect your legs (leg paresis). ? A recent injury, such as a car accident. ? Major or lengthy surgery. ? A central line placed inside a large vein. What are the signs or symptoms? Symptoms of this condition include: ??? Swelling, pain, or tenderness in an arm or leg. ??? Warmth, redness, or discoloration in an arm or leg. If the clot is in your leg, symptoms may be more noticeable or worse when you stand or walk. Some people may not develop any symptoms. How is this diagnosed? This condition is diagnosed with: ??? A medical history and physical exam. ??? Tests, such as: ? Blood tests. These are done to check how well your blood clots. ? Ultrasound. This is done to check for clots. ? Venogram. For this test, contrast dye is injected into a vein and X-rays are taken to check for any clots. How is this treated? Treatment for this condition depends on: ??? The cause of your DVT. ??? Your risk for bleeding or developing more clots. ??? Any other medical conditions that you have. Treatment may include: ??? Taking a blood thinner (anticoagulant). This type of medicine prevents clots from forming. It may be taken by mouth, injected under the skin, or injected through an IV (catheter). ??? Injecting clot-dissolving medicines into the affected vein (catheter- directed thrombolysis). ??? Having surgery. Surgery may be done to: ? Remove the clot. ? Place a filter in a large vein to catch blood clots before they reach the lungs. Some treatments may be continued for up to six months. Follow these instructions at home: If you are taking blood thinners: ??? Take the medicine exactly as told by your health care provider. Some blood thinners need to be taken at the same time every day. Do not skip a dose. ??? Talk with your health care provider before you take any medicines that contain aspirin or NSAIDs. These medicines increase your risk for dangerous bleeding. ??? Ask your health care provider about foods and drugs that could change the way the medicine works(may interact). Avoid those things if your health care provider tells you to do so. ??? Blood thinners can cause easy bruising and may make it difficult to stop bleeding. Because of this: ? Be very careful when using knives, scissors, or other sharp objects. ? Use an electric razor instead of a blade. ? Avoid activities that could cause injury or bruising, and follow instructions about how to preventfalls. ??? Wear a medical alert bracelet or carry a card that lists what medicines you take. General instructions ??? Take hhdz-ofh-cazkfos and prescription medicines only as told by your health care provider. ??? Return to your normal activities as told by your health care provider. Ask your health care provider what activities are safe for you. ??? Wear compression stockings if recommended by your health care provider. ??? Keep all follow-up visits as told by your health care provider. This is important. How is this prevented? To lower your risk of developing this condition again: ??? For 30 or more minutes every day, do an activity that: ? Involves moving your arms and legs. ? Increases your heart rate. ??? When traveling for longer than four hours: ? Exercise your arms and legs every hour. ? Drink plenty of water. ? Avoid drinking alcohol. ??? Avoid sitting or lying for a long time without moving your legs. ??? If you have surgery or you are hospitalized, ask about ways to prevent blood clots. These may include taking frequent walks or using anticoagulants. ??? Stay at a healthy weight. ??? If you are a woman who is older than age 35, avoid unnecessary use of medicines that contain estrogen, such as some control pills. ??? Do not use any products that contain nicotine or tobacco, such as cigarettes and e-cigarettes. This is especially important if you take estrogen medicines. If you need help quitting, ask your health care provider. Contact a health care provider if: ??? You miss a dose of your blood thinner. ??? Your menstrual period is heavier than usual. ??? You have unusual bruising. Get help right away if: ??? You have: ? New or increased pain, swelling, or redness in an arm or leg. ? Numbness or tingling in an arm or leg. ? Shortness of breath. ? Chest pain. ? A rapid or irregular heartbeat. ? A severe headache or confusion. ? A cut that will not stop bleeding. ??? There is blood in your vomit, stool, or urine. ??? You have a serious fall or accident, or you hit your head. ??? You feel light-headed or dizzy. ??? You cough up blood. These symptoms may represent a serious problem that is an emergency. Do not wait to see if the symptoms will go away. Get medical help right away. Call your local emergency services (911 in the [place] Do not drive yourself to the hospital. Summary ??? Deep vein thrombosis (DVT) is a condition in which a blood clot forms in a deep vein, such as a lower leg, thigh, or arm vein. ??? Symptoms can include swelling, warmth, pain, and redness in your leg or arm. ??? This condition may be treated with a blood thinner (anticoagulant medicine), medicine that is injected to dissolve blood clots,compression stockings, or surgery. ??? If you are prescribed blood thinners, take them exactly as told. This information is not intended to replace advice given to you by your health care provider. Make sure you discuss any questions you have with your health care provider. Document Released: 09/20/2006 Document Revised: 02/18/2018 Document Reviewed: 02/18/2018 [employer] Interactive Patient Education ?? 2019 [employer] Fall Prevention in the Home, Adult, [id number] Prevention in the Home, Adult Falls can [...] Keep items that you use often in [id number] places. Lower the shelves around your home [...] the way. ??? Do not use floor macedonian or wax that makes floors slippery. If [...] Control and Prevention, [place]AD[place]: https://cdc.gov ??? [place] on Aging: https://ny9slim.guzman.nih.gov Contact a doctor if: ??? You are [...] 07/17/2010 Document Revised: 05/05/2018 Document Reviewed: 05/05/2018 [employer] Interactive Patient Education ?? 2019 [employer] Hand WashingHand Washing Germs such as bacteria, viruses, and parasites are found everywhere. They can be in the air and water, and they can be on surfaces like food, door handles, and your skin. Every day, your hands come into contact with germs. Many of these germs can make you and your family sick. Washing your hands is one of the easiest and most effective ways to lower your risk of getting and sharing germs. When should I wash my hands? You should wash your hands whenever you think they are dirty. You should also wash your hands: ??? Before: ? Visiting a baby or anyone with a weakened disease-fighting system (immunesystem). ? Putting in or taking out contact lenses. ??? After: ? Using the bathroom or helping someone else use the bathroom. ? Working or playing outside. ? Touching or taking out the garbage. ? Touching anything dirty around your home. ? Sneezing, coughing, or blowing your nose. ? Using a phone, including your mobile phone. ? Touching an animal, animal food, animal waste, or its toys or leash. ? Touching money. ? Using household student teaching coordinator or toxic chemicals. ? Handling soiled clothes, bedding, or rags. ? Using public transportation. ? Going shopping, especially if you use a shopping cart or basket. ? Shaking hands. ? Handling livestock. ??? Before and after: ? Preparing food. ? Eating. ? Visiting or taking care of someone who is sick. This includes touching used tissues, toys, and clothes. ? Changing a bandage (dressing) or taking care of an injury or wound. ? Giving or taking medicine. ? Preparing a bottle for a baby. ? Feeding a baby or young child. ? Changing a diaper. What is the correct way to wash my hands? 1. Wet your hands with clean, running water. Turn off the water or move your hands out of the running water. 2. Apply liquid soap or bar soap to your hands. 3. Rub your hands together quickly to create lather. 4. Keep rubbing your hands together for at least 20 seconds. Thoroughly scrub all parts of your hands, including under your fingernails and between your fingers. 5. Rinse your hands with clean, running water until all the soap is gone. 6. Dry your hands using an air dryer or a clean paper or cloth towel, or let your hands air-dry. Do not use your clothing or a soiled towel to dry your hands. If you are in a public restroom, use a paper towel: ??? To turn off the water faucet. ??? To open the bathroom door. How can I clean my hands if I do not have soap and water? If soap and clean water are not available, use an alcohol-based wipe, spray, or hand gel. Use a hand-sanitizing agent that contains at least 60% alcohol. If you are preparing food, hand sanitizers are not recommended as a replacement for hand washing with soap and water. To use a hand record pressman, follow the directions on the product, and: ??? Apply enough product to cover your hands. ??? Make sure you wipe, rub, or spray the product so that it reaches every part of your hands and wrists. Include the backs of your hands, between your fingers, and under your fingernails. ??? Rub the product onto your hands until it dries. Summary ??? Germs such as bacteria, viruses, and parasites are found everywhere. ??? Your hands come into contact with germs every day. Many of these germs can make you and your family sick. ??? Washing your hands is one of the easiest and most effective ways to lower your risk of getting and sharing germs. This information is not intended to replace advice given to you by your health care provider. Make sure you discuss any questions you have with your health care provider. Document Released: 05/11/2006 Document Revised: 06/29/2018 Document Reviewed: 06/29/2018 [employer] Patient Education ?? 2019 [employer] Hypertension, AdultHypertension, Adult High blood pressure (hypertension) is when the force of blood pumping through the arteries is too strong. The arteries are the blood vessels that carry blood from the heart throughout the body. Hypertension forces the heart to work harder to pump blood and may cause arteries to become narrow or stiff.Untreated or uncontrolled hypertension can cause a heart attack, heart failure, a stroke, kidney disease, and other problems. A blood pressure reading consists of a higher number over a lower number. Ideally, your blood pressure should be below 120/80. The first (top) number is called the systolic pressure. It is a measure of the pressure in your arteries as your heart beats. The second (bottom) number is called the diastolic pressure. It is a measure of the pressure in your arteries as the heart relaxes. What are the causes? The exact cause of this condition is not known. There are some conditions that result in or are related to high blood pressure. What increases the risk? Some risk factors for high blood pressure are under your control. The following factors may make youmore likely to develop this condition: ??? Smoking. ??? Having type 2 diabetes mellitus, high cholesterol, or both. ??? Not getting enough exercise or physical activity. ??? Being overweight. ??? Having too much fat, sugar, calories, or salt (sodium) in your diet. ??? Drinking too much alcohol. Some risk factors for high blood pressure may be difficult or impossible to change. Some of these factors include: ??? Having chronic kidney disease. ??? Having a family history of high blood pressure. ??? Age. Risk increases with age. ??? Race. You may be at higher risk if you are . ??? Gender. Men are at higher risk than women before age 45. After age 65, women are at higher risk than men. ??? Having obstructive sleep apnea. ??? Stress. What are the signs or symptoms? High blood pressure may not cause symptoms. Very high blood pressure (hypertensive crisis) may cause: ??? Headache. ??? Anxiety. ??? Shortness of breath. ??? Nosebleed. ??? Nausea and vomiting. ??? Vision changes. ??? Severe chest pain. ??? Seizures. How is this diagnosed? This condition is diagnosed by measuring your blood pressure while you are seated, with your arm resting on a flat surface, your legs uncrossed, and your feet flat on the floor. The cuff of the blood pressure monitor will be placed directly against the skin of your upper arm at the level of your heart. It should be measured at least twice using the same arm. Certain conditions can cause a difference in blood pressure between your right and left arms. Certain factors can cause blood pressure readings to be lower or higher than normal for a short period of time: ??? When your blood pressure is higher when you are in a health care provider's office than when youare at home, this is called white coat hypertension. Most people with this condition do not need medicines. ??? When your blood pressure is higher at home than when you are in a health care provider's office,this is called masked hypertension. Most people with this condition may need medicines to control blood pressure. If you have a high blood pressure reading during one visit or you have normal blood pressure with other risk factors, you may be asked to: ??? Return on a different day to have your blood pressure checked again. ??? Monitor your blood pressure at home for 1 week or longer. If you are diagnosed with hypertension, you may have other blood or imaging tests to help your health care provider understand your overall risk for other conditions. How is this treated? This condition is treated by making healthy lifestyle changes, such as eating healthy foods, exercising more, and reducing your alcohol intake. Your health care provider may prescribe medicine if lifestyle changes are not enough to get your blood pressure under control, and if: ??? Your systolic blood pressure is above 130. ??? Your diastolic blood pressure is above 80. Your personal target blood pressure may vary depending on your medical conditions, your age, and other factors. Follow these instructions at home: Eating and drinking ??? Eat a diet that is high in fiber and potassium, and low in sodium, added sugar, and fat. An example eating plan is called the DASH (Dietary Approaches to Stop Hypertension) diet. To eat this way: ? Eat plenty of fresh fruits and vegetables. Try to fill one half of your plate at each meal with fruits and vegetables. ? Eat whole grains, such as whole-wheat pasta, brown rice, or whole-grain bread. Fill about one fourth of your plate with whole grains. ? Eat or drink low-fat dairy products, such as skim milk or low-fat yogurt. ? Avoid fatty cuts of meat, processed or cured meats, and poultry with skin. Fill about one fourth of your plate with lean proteins, such as fish, chicken without skin, beans, eggs, or tofu. ? Avoid pre-made and processed foods. These tend to be higher in sodium, added sugar, and fat. ??? Reduce your daily sodium intake. Most people with hypertension should eat less than 1,500 mg of sodium a day. ??? Do not drink alcohol if: ? Your health care provider tells you not to drink. ? You are , may be , or are planning to become . ??? If you drink alcohol: ? Limit how much you use to: ? 0???1 drink a day for women. ? 0???2 drinks a day for men. ? Be aware of how much alcohol is in your drink. In the [place] one drink equals one 12 oz bottle of beer (355 mL), one 5 oz glass of wine (148 mL), or one 1?? oz glass of hard liquor (44 mL). Lifestyle ??? Work with your health care provider to maintain a healthy body weight or to lose weight. Ask what an ideal weight is for you. ??? Get at least 30 minutes of exercise most days of the week. Activities may include walking, swimming, or biking. ??? Include exercise to strengthen your muscles (resistance exercise), such as Pilates or lifting weights, as part of your weekly exercise routine. Try to do these types of exercises for 30 minutes at least 3 days a week. ??? Do not use any products that contain nicotine or tobacco, such as cigarettes, e-cigarettes, and chewing tobacco. If you need help quitting, ask your health care provider. ??? Monitor your blood pressure at home as told by your health care provider. ??? Keep all follow-up visits as told by your health care provider. This is important. Medicines ??? Take gutq-hck-ftefbbs and prescription medicines only as told by your health care provider. Follow directions carefully. Blood pressure medicines must be taken as prescribed. ??? Do not skip doses of blood pressure medicine. Doing this puts you at risk for problems and can make the medicine less effective. ??? Ask your health care provider about side effects or reactions to medicines that you should watchfor. Contact a health care provider if you: ??? Think you are having a reaction to a medicine you are taking. ??? Have headaches that keep coming back (recurring). ??? Feel dizzy. ??? Have swelling in your ankles. ??? Have trouble with your vision. Get help right away if you: ??? Develop a severe headache or confusion. ??? Have unusual weakness or numbness. ??? Feel faint. ??? Have severe pain in your chest or abdomen. ??? Vomit repeatedly. ??? Have trouble breathing. Summary ??? Hypertension is when the force of blood pumping through your arteries is too strong. If this condition is not controlled, it may put you at risk for serious complications. ??? Your personal target blood pressure may vary depending on your medical conditions, your age, andother factors. For most people, a normal blood pressure is less than 120/80. ??? Hypertension is treated with lifestyle changes, medicines, or a combination of both. Lifestyle changes include losing weight, eating a healthy, low-sodium diet, exercising more, and limiting alcohol. This information is not intended to replace advice given to you by your health care provider. Make sure you discuss any questions you have with your health care provider. Document Released: 09/20/2006 Document Revised: 05/31/2019 Document Reviewed: 05/31/2019 [employer] Patient Education ?? 2019 [employer] [place]. Ischemic Stroke, Tjhj-cw-JglfXygbfwtl Stroke An ischemic stroke is the sudden of brain tissue. Blood carries oxygen to all areas of the body. This type of stroke happens when your blood does not flow to your brain like normal. Your brain cannot get the oxygen it needs. This is an emergency. It must be treated right away. Symptoms of a stroke usually happen all of a sudden. You may notice them when you wake up. They can include: ??? Weakness or loss of feeling in your face, arm, or leg. This often happens on one side of the body. ??? Trouble walking. ??? Trouble moving your arms or legs. ??? Loss of balance or coordination. ??? Feeling confused. ??? Trouble talking or understanding what people are saying. ??? Slurred speech. ??? Trouble seeing. ??? Seeing two of one object (double vision). ??? Feeling dizzy. ??? Feeling sick to your stomach (nauseous) and throwing up (vomiting). ??? A very bad headache for no reason. Get help as soon as any of these problems start. This is important. Some treatments work better if they are given right away. These include: ??? Aspirin. ??? Medicines to control blood pressure. ??? A shot (injection) of medicine to break up the blood clot. ??? Treatments given in the blood vessel (artery) to take out the clot or break it up. Other treatments may include: ??? Oxygen. ??? Fluids given through an IV tube. ??? Medicines to thin out your blood. ??? Procedures to help your blood flow better. What increases the risk? Certain things may make you more likely to have a stroke. Some of these are things that you can change, such as: ??? Being very overweight (obesity). ??? Smoking. ??? Taking control pills. ??? Not being active. ??? Drinking too much alcohol. ??? Using drugs. Other risk factors include: ??? High blood pressure. ??? High cholesterol. ??? Diabetes. ??? Heart disease. ??? Being , , , or . ??? Being over age 60. ??? Family history of stroke. ??? Having had blood clots, stroke, or warning stroke (transient ischemic attack, TIA) in the past. ??? Sickle cell disease. ??? Being a woman with a history of high blood pressure in (preeclampsia). ??? Migraine headache. ??? Sleep apnea. ??? Having an irregular heartbeat (atrial fibrillation). ??? Long-term (chronic) diseases that cause soreness and swelling (inflammation). ??? Disorders that affect how your blood clots. Follow these instructions at home: Medicines ??? Take ymvl-vzb-qhyueqz and prescription medicines only as told by your doctor. ??? If you were told to take aspirin or another medicine to thin your blood, take it exactly as toldby your doctor. ? Taking too much of the medicine can cause bleeding. ? If you do not take enough, it may not work as well. ??? Know the side effects of your medicines. If you are taking a blood thinner, make sure you: ? Hold pressure over any cuts for longer than usual. ? Tell your dentist and other doctors that you take this medicine. ? Avoid activities that may cause damage or injury to your body. Eating and drinking ??? Follow instructions from your doctor about what you cannot eat or drink. ??? Eat healthy foods. ??? If you have trouble with swallowing, do these things to avoid choking: ? Take small bites when eating. ? Eat foods that are soft or pureed. Safety ??? Follow instructions from your health care team about physical activity. ??? Use a walker or cane as told by your doctor. ??? Keep your home safe so you do not fall. This may include: ? Having experts look at your home to make sure it is safe. ? Putting grab bars in the bedroom and bathroom. ? Using raised toilets. ? Putting a seat in the shower. General instructions ??? Do not use any tobacco products. ? Examples of these are cigarettes, chewing tobacco, and e-cigarettes. ? If you need help quitting, ask your doctor. ??? Limit how much alcohol you drink. This means no more than 1 drink a day for non women and 2 drinks a day for men. One drink equals 12 oz of beer, 5 oz of wine, or 1?? oz of hard liquor. ??? If you need help to stop using drugs or alcohol, ask your doctor to refer you to a program or specialist. ??? Stay active. Exercise as told by your doctor. ??? Keep all follow-up visits as told by your doctor. This is important. Get help right away if: ??? You have any signs of a stroke. BE FAST is an easy way to remember the main warning signs: ? B - Balance. Signs are dizziness, sudden trouble walking, or loss of balance. ? E - Eyes. Signs are trouble seeing or a change in how you see. ? F [...] a stroke, such as: ? A sudden, very bad headache with no known cause. ? Feeling sick to your stomach (nausea). ? Throwing up (vomiting). ? Jerky movements you cannot control (seizure). These symptoms may be an emergency. Do not wait to see if the symptoms will go away. Get medical help right away. Call your local emergency services (911 in the [place] Do not drive yourself to the hospital. Summary ??? An ischemic stroke is the sudden of brain tissue. ??? Symptoms of a stroke usually happen all of a sudden. You may notice them when you wake up. ??? Get help if you have any warning signs of a stroke. This is important. Some treatments work better if they are given right away. This information is not intended to replace advice given to you by your health care provider. Make sure you discuss any questions you have with your health care provider. Document Released: 09/08/2012 Document Revised: 03/01/2019 Document Reviewed: 12/16/2016 [employer] Patient Education ?? 2019 [employer] [place]. Living With DepressionLiving With Depression Everyone experiences occasional disappointment, sadness, and loss in their lives. When you are feeling down, blue, or sad for at least 2 weeks in a row, it may mean that you have depression. Depressioncan affect your thoughts and feelings, relationships, daily activities, and physical health. It is caused by changes in the way your brain functions. If you receive a diagnosis of depression, your health care provider will tell you which type of depression you have and what treatment options are available to you. If you are living with depression, there are ways to help you recover from it and also ways to prevent it from coming back. How to cope with lifestyle changes Coping with stress Stress is your body???s reaction to life changes and events, both good and bad. Stressful situationsmay include: ??? Getting . ??? The of a spouse. ??? Losing a job. ??? Retiring. ??? Having a baby. Stress can last just a few hours or it can be ongoing. Stress can play a major role in depression, so it is important to learn both how to cope with stress and how to think about it differently. Talk with your health care provider or a counselor if you would like to learn more about stress reduction. He or she may suggest some stress reduction techniques, such as: ??? Music therapy. This can include creating music or listening to music. Choose music that you enjoy and that inspires you. ??? Mindfulness-based meditation. This kind of meditation can be done while sitting or walking. It involves being aware of your normal breaths, rather than trying to control your breathing. ??? Centering prayer. This is a kind of meditation that involves focusing on a spiritual word or phrase. Choose a word, phrase, or sacred image that is meaningful to you and that brings you peace. ??? Deep breathing. To do this, expand your stomach and inhale slowly through your nose. Hold your breath for 3???5 seconds, then exhale slowly, allowing your stomach muscles to relax. ??? Muscle relaxation. This involves intentionally tensing muscles then relaxing them. Choose a stress reduction technique that fits your lifestyle and personality. Stress reduction techniques take time and practice to develop. Set aside 5???15 minutes a day to do them. Therapists can offer training in these techniques. The training may be covered by some insurance plans. Other things you can do to manage stress include: ??? Keeping a stress diary. This can help you learn what triggers your stress and ways to control your response. ??? Understanding what your limits are and saying no to requests or events that lead to a schedule that is too full. ??? Thinking about how you respond to certain situations. You may not be able to control everything,but you can control how you react. ??? Adding humor to your life by watching funny films or TV shows. ??? Making time for activities that help you relax and not feeling guilty about spending your time this way. Medicines Your health care provider may suggest certain medicines if he or she feels that they will help improve your condition. Avoid using alcohol and other substances that may prevent your medicines from working properly (may interact). It is also important to: ??? Talk with your pharmacist or health care provider about all the medicines that you take, their possible side effects, and what medicines are safe to take together. ??? Make it your goal to take part in all treatment decisions (shared decision- making). This includes giving input on the side effects of medicines. It is best if shared decision-making with your health care provider is part of your total treatment plan. If your health care provider prescribes a medicine, you may not notice the full benefits of it for 4???8 weeks. Most people who are treated for depression need to be on medicine for at least 6???12 months after they feel better. If you are taking medicines as part of your treatment, do not stop takingmedicines without first talking to your health care provider. You may need to have the medicine slowly decreased (tapered) over time to decrease the risk of harmful side effects. Relationships Your health care provider may suggest family therapy along with individual therapy and drug therapy.While there may not be family problems that are causing you to feel depressed, it is still importantto make sure your family learns as much as they can about your mental health. Having your family???ssupport can help make your treatment successful. How to recognize changes in your condition Everyone has a different response to treatment for depression. Recovery from major depression happens when you have not had signs of major depression for two months. This may mean that you will start to: ??? Have more interest in doing activities. ??? Feel less hopeless than you did 2 months ago. ??? Have more energy. ??? Overeat less often, or have better or improving appetite. ??? Have better concentration. Your health care provider will work with you to decide the next steps in your recovery. It is also important to recognize when your condition is getting worse. Watch for these signs: ??? Having fatigue or low energy. ??? Eating too much or too little. ??? Sleeping too much or too little. ??? Feeling restless, agitated, or hopeless. ??? Having trouble concentrating or making decisions. ??? Having unexplained physical complaints. ??? Feeling irritable, angry, or aggressive. Get help as soon as you or your family members notice these symptoms coming back. How to get support and help from others How to talk with friends and family members about your condition Talking to friends and family members about your condition can provide you with one way to get support and guidance. Reach out to trusted friends or family members, explain your symptoms to them, and let them know that you are working with a health care provider to treat your depression. Financial resources Not all insurance plans cover mental health care, so it is important to check with your insurance carrier. If paying for co-pays or counseling services is a problem, search for a local or [facility] mental[facility] care center. They may be able to offer public mental health care services at low or no cost when you are not able to see a private health care provider. If you are taking medicine for depression, you may be able to get the generic form, which may be less expensive. Some makers of prescription medicines also offer help to patients who cannot afford the medicines they need. Follow these instructions at home: ??? Get the right amount and quality of sleep. ??? Cut down on using caffeine, tobacco, alcohol, and other potentially harmful substances. ??? Try to exercise, such as walking or lifting small weights. ??? Take wdvb-lne-mmcqefi and prescription medicines only as told by your health care provider. ??? Eat a healthy diet that includes plenty of vegetables, fruits, whole grains, low-fat dairy products, and lean protein. Do not eat a lot of foods that are high in solid fats, added sugars, or salt. ??? Keep all follow-up visits as told by your health care provider. This is important. Contact a health care provider if: ??? You stop taking your antidepressant medicines, and you have any of these symptoms: ? Nausea. ? Headache. ? Feeling lightheaded. ? Chills and body aches. ? Not being able to sleep (insomnia). ??? You or your friends and family think your depression is getting worse. Get help right away if: ??? You have thoughts of hurting yourself or others. If you ever feel like you may hurt yourself or others, or have thoughts about taking your own life, get help right away. You can go to your nearest emergency department or call: ??? Your local emergency services (911 in the [place] ??? A suicide crisis helpline, such as the National Suicide Prevention Lifeline at . This is open 24-hours a day. Summary ??? If you are living with depression, there are ways to help you recover from it and also ways to prevent it from coming back. ??? Work with your health care team to create a management plan that includes counseling, stress management techniques, and healthy lifestyle habits. This information is not intended to replace advice given to you by your health care provider. Make sure you discuss any questions you have with your health care provider. Document Released: 08/23/2017 Document Revised: 08/23/2017 Document Reviewed: 08/23/2017 [employer] Interactive Patient Education ?? 2019 [employer] [place]. Smoking Cessation (HYANG)Smoking Cessation This document explains the best ways for you to quit smoking as well as new treatments to help. It lists new medications that can double or triple your chances of quitting and quitting for good. It also tells about ways to avoid relapses and talks about concerns you may have about quitting, including weight gain. NICOTINE: A POWERFUL ADDICTION If you have tried to quit smoking, you know how hard it can be. It is hard because nicotine is a very addictive drug. For some people, it can be as addictive as heroin or cocaine. Quitting is hard. Usually people make 2 or 3 tries, or more, before finally being able to quit. Each time you try to quit,you can learn about what helps and what hurts. Quitting takes hard work and a lot of effort, but youcan quit smoking. QUITTING SMOKING IS ONE OF THE MOST IMPORTANT THINGS YOU WILL EVER DO: ?? You will live longer and live better. ?? Quitting will lower your chance of having a heart attack, stroke, or cancer. ?? If you are , quitting smoking will improve your chances of having a healthy baby. ?? The people you live with, especially your children, will be healthier. ?? You will have extra money to spend on things other than cigarettes. FIVE KEYS FOR QUITTING Studies have shown that these five steps will help you quit and quit for good. You have the best chances of quitting if you use them together: 1. Get ready. 2. Get support. 3. Learn new skills and behaviors. 4. Get medication and use it correctly. 5. Be prepared for relapse or difficult situations. 1. GET READY ?? Set a quit date. ?? Change your environment. l Get rid of ALL cigarettes and ashtrays in your home, car, and place of work. l Do not let people smoke in your home. ?? Review your past attempts to quit. Think about what worked and what did not. ?? Once you quit, do not smoke, NOT EVEN A PUFF! 2. GET SUPPORT AND ENCOURAGEMENT Studies have shown that you have a better chance of being successful if you have help. You can get support in many ways: ?? Tell your family, friends, and coworkers that you are going to quit and need their support. Ask them not to smoke around you. ?? Talk to your health care provider (for example, doctor, dentist, nurse, pharmacist, psychologist,or smoking counselor). ?? Get individual, group or telephone counseling. The more counseling you have, the better your chances are of quitting. Programs are available at local hospitals and health centers. Call your local health department for information about programs in your area. 3. LEARN NEW SKILLS AND BEHAVIORS ?? Try to distract yourself from urges to smoke. Talk to someone, go for a walk, or occupy your timewith a task. ?? When you first try to quit, change your routine; use a different route to work. Drink tea insteadof coffee. Eat breakfast in a different place. ?? Do something to reduce your stress. Take a hot bath, exercise or read a book. ?? Plan something enjoyable to do every day. ?? Drink a lot of water and other fluids. 4. GET MEDICATION AND USE IT CORRECTLY Medications can help you stop smoking and lessen the urge to smoke. ?? The U.S. Food and Drug Administration (FDA) has approved five medications to help you quit smoking: l Bupropion SR - Available by prescription. l Nicotine gum - Available xxlb-syo-cthmmpd. l Nicotine inhaler - Available by prescription. l Nicotine nasal spray - Available by prescription. l Nicotine patch - Available by prescription and rvtl-trt-vgrohrn. ?? Ask your health care provider for advice and carefully read the information on the package. ?? All of these medications will more or less double your chances of quitting and quitting for good. ?? Everyone who is trying to quit may benefit from using a medication. If you are or tryingto become , nursing, under age 18, smoking fewer than 10 cigarettes per day, or have a medical condition, talk to your doctor or other health care provider before taking medications. 5. BE PREPARED FOR RELAPSE OR DIFFICULT SITUATIONS Most relapses occur within the first 3 months after quitting. Do not be discouraged if you start smoking again. Remember, most people try several times before they finally quit. Here are some difficultsituations to watch for: ?? Alcohol. Avoid drinking alcohol. Drinking lowers your chances of success. ?? Other smokers. Being around smoking can make you want to smoke. ?? Weight gain. Many smokers will gain weight when they quit, usually less than 10 pounds. Eat a healthy diet and stay active. Do not let weight gain distract you from your main goal, quitting smoking.Some quit-smoking medications may help delay weight gain. ?? Bad mood or depression. There are a lot of ways to improve your mood other than smoking. If you are having problems with any of these situations, talk to your doctor or other health care provider. SPECIAL SITUATIONS OR CONDITIONS Studies suggest that everyone can quit smoking. Your situation or condition can give you a special reason to quit. ?? women/new mothers: By quitting, you protect your baby's health and your own. ?? Hospitalized patients: By quitting, you reduce health problems and help healing. ?? Heart attack patients: By quitting, you reduce your risk of a second heart attack. ?? Lung, head, and neck cancer patients: By quitting, you reduce your chance of a second cancer. ?? Parents of children and adolescents: By quitting, you protect your children and adolescents from illnesses caused by second-hand smoke. QUESTIONS TO THINK ABOUT Think about the following questions before you try to stop smoking. You may want to talk about your answers with your health care provider. 1. Why do you want to quit? 2. If you tried to quit in the past, what helped and what did not? 3. What will be the most difficult situations for you after you quit? How will you plan to handle them? 4. Who can help you through the tough times? Your family? Friends? Health care provider? 5. What pleasures do you get from smoking? What ways can you still get pleasure if you quit? Here are some questions to ask your health care provider. 1. How can you help me to be successful at quitting? 2. What medication do you think would be best for me and how should I take it? 3. What should I do if I need more help? 4. What is smoking withdrawal like? How can I get information on withdrawal? QUITTING TAKES HARD WORK AND A LOT OF EFFORT, BUT YOU CAN QUIT SMOKING. Additional Resources You may want to contact these organizations for further information on smoking and how to quit. [place] [facility] [employer] [address] [place] [address] (478) [facility] ([phone]) [place] [employer] [address] [place] [address] [place] [employer] [address] [place] [address] [place] [id number] [place] [address] [phone] ([phone]) For women: [place] [employer] [address] [place] [address], [place] [address] FOR MORE INFORMATION The information was taken from Treating Tobacco Use and Dependence, a U.S. Public Health Service-sponsored Clinical Practice Guideline. This guideline was developed by a non-Federal panel of experts sponsored by a consortium consisting of Federal Government and nonprofit organizations: ?? Agency for Healthcare Research and Quality (AHRQ). ?? Centers for Disease Control and Prevention (CDC). ?? National Cancer [place] (NCI). ?? National Heart, Lung, and Blood [place] (NHLBI). ?? National [place] on Drug Abuse (LINDY). ?? [employer] [place] [employer] (RWJF). ?? University of [employer]'s Center for Tobacco Research and Intervention (CTRI). For information about the guideline or to get more copies of this information, call: 918.452.2487, or write: Publications Clearinghouse, [address], [place] [address] U.S. Department of Health and Human Services, Public Health Service Document Released: 09/14/2002 Document Re-Released: 12/17/2009 ExitCare?? Patient Information ??2010 [employer]. Urinary Tract Infection, Adult, Sflc-so-IiiaJnlihsc Tract Infection, Adult A urinary tract infection (UTI) is an infection of any part of the urinary tract. The urinary tract includes: ??? The kidneys. ??? The ureters. ??? The bladder. ??? The urethra. These organs make, store, and get rid of pee (urine) in the body. What are the causes? This is caused by germs (bacteria) in your genital area. These germs grow and cause swelling (inflammation) of your urinary tract. What increases the risk? You are more likely to develop this condition if: ??? You have a small, thin tube (catheter) to drain pee. ??? You cannot control when you pee or poop (incontinence). ??? You are female, and: ? You use these methods to prevent : ? A medicine that kills sperm (spermicide). ? A device that blocks sperm (diaphragm). ? You have low levels of a female hormone (estrogen). ? You are . ??? You have genes that add to your risk. ??? You are sexually active. ??? You take antibiotic medicines. ??? You have trouble peeing because of: ? A prostate that is bigger than normal, if you are male. ? A blockage in the part of your body that drains pee from the bladder (urethra). ? A kidney stone. ? A nerve condition that affects your bladder (neurogenic bladder). ? Not getting enough to drink. ? Not peeing often enough. ??? You have other conditions, such as: ? Diabetes. ? A weak disease-fighting system (immune system). ? Sickle cell disease. ? Gout. ? Injury of the spine. What are the signs or symptoms? Symptoms of this condition include: ??? Needing to pee right away (urgently). ??? Peeing often. ??? Peeing small amounts often. ??? Pain or burning when peeing. ??? Blood in the pee. ??? Pee that smells bad or not like normal. ??? Trouble peeing. ??? Pee that is cloudy. ??? Fluid coming from the vagina, if you are female. ??? Pain in the belly or lower back. Other symptoms include: ??? Throwing up (vomiting). ??? No urge to eat. ??? Feeling mixed up (confused). ??? Being tired and grouchy (irritable). ??? A fever. ??? Watery poop (diarrhea). How is this treated? This condition may be treated with: ??? Antibiotic medicine. ??? Other medicines. ??? Drinking enough water. Follow these instructions at home: Medicines ??? Take gbxv-oxb-fhrwpqb and prescription medicines only as told by your doctor. ??? If you were prescribed an antibiotic medicine, take it as told by your doctor. Do not stop taking it even if you start to feel better. General instructions ??? Make sure you: ? Pee until your bladder is empty.?? ? Do not hold pee for a long time. ? Empty your bladder after sex. ? Wipe from front to back after pooping if you are a female. Use each tissue one time when you wipe. ??? Drink enough fluid to keep your pee pale yellow. ??? Keep all follow-up visits as told by your doctor. This is important. Contact a doctor if: ??? You do not get better after 1???2 days. ??? Your symptoms go away and then come back. Get help right away if: ??? You have very bad back pain. ??? You have very bad pain in your lower belly. ??? You have a fever. ??? You are sick to your stomach (nauseous). ??? You are throwing up. Summary ??? A urinary tract infection (UTI) is an infection of any part of the urinary tract. ??? This condition is caused by germs in your genital area. ??? There are many risk factors for a UTI. These include having a small, thin tube to drain pee and not being able to control when you pee or poop. ??? Treatment includes antibiotic medicines for germs. ??? Drink enough fluid to keep your pee pale yellow. This information is not intended to replace advice given to you by your health care provider. Make sure you discuss any questions you have with your health care provider. Document Released: 03/08/2009 Document Revised: 03/30/2019 Document Reviewed: 03/30/2019 [employer] Interactive Patient Education ?? 2019 [employer] [place]. Follow Up Care11/08/2019 16:52:55With:Fili Ness Address: [address] [place] [phone] Business (1) When:As needed Comments:interventional cardiologistWith:Wilson Mccall Address: [address] [facility] [place] [address] [phone] Business (1) When:1 to 2 weeks Comments:NeurologistWith:Carol Ruff Address: [address] [place] [address] [phone] Business (1) When:1 to 2 weeks Comments:PCP
--- OUTSIDE RECORDS SUMMARY | 2022-07-28 13:36 | XMS_ITS | Referral Summary ---
:1940 Author Organization [facility] nter Address [address] [place] [address]- Care Team Providers Name Role Phone Carol Ruff MD Primary Care Physician Encounter EVSA_FIN [id number] Date(s): 11/13/19 - 11/13/19 [facility] [address] [place] [address]- [facility] [phone] Encounter Diagnosis Cerebral infarction, unspecified (Discharge Diagnosis) - Encephalopathy, unspecified (Discharge Diagnosis) - Headache (Discharge Diagnosis) - Acute embolism and thrombosis of unspecified deep veins of left lower extremity (Discharge Diagnosis) - Discharge Disposition: Home/self care Attending Physician: Ed [...] Completed Sclerotherapy of varicose vein2 Completed 1Left kocv9Uvnlvpgxk Social History Social History Type Response Smoking Status Former smoker, quit more tarik n 30 days ago entered on: 11/15/19
--- OUTSIDE RECORDS SUMMARY | 2022-07-28 13:36 | XMS_ITS | Referral Summary ---
:1940 Author Organization [facility] Address [address] [facility] [place] [address]- Care Team Providers Name Role Phone Carlo Ruff MD Primary Care Physician Encounter EVSA_FIN [id number] Date(s): 11/08/19 - 11/25/[address] [facility] [place]- [facility] Encounter Diagnosis Acute embolic stroke (Discharge Diagnosis) [...] Tab, PO, qDay, Qty: 30 Tab, 0, Maintenance, Route to Pharmacy Electronically, [id number] Start Date: 11/24/19 Status: Orderedatorvastatin 20 mg oral tablet 1 Tab Tab, PO, qDay, Qty: 30 Tab, 0, Maintenance, Route to Pharmacy Electronically, [facility][id number] Start Date: 11/24/19 Status: Orderedbethanechol 10 mg oral tablet 1 Tab Tab, PO, TID, 14 Day, Qty: 42 Tab, 0, 12/08/19 22:27:00 MST, Acute, Route to Pharmacy Electronically, [facility][id number] Start Date: 11/24/19 Stop Date: 12/08/19 Status: OrderedCalcium 600 +D Tab 1 Tab Tab, PO, TID, 0, Maintenance Start Date: 10/25/19 Status: Orderedcitalopram 10 mg, PO, Daily, 0, Maintenance Start Date: 11/15/19 Status: OrderedColace 100 mg, PO, BID, 0, Maintenance Start Date: 11/15/19 Status: OrderedEliquis 5 mg oral tablet 1 Tab Tab, PO, BID, Qty: 60 Tab, 0, Maintenance, Route to Pharmacy Electronically, [facility][id number] Start Date: 11/24/19 Status: OrderedFlorastor 250 mg, PO, BID, 0, Maintenance Start Date: 11/15/19 Status: OrderedguaiFENesin 600 mg oral tablet, extended release 1 Tab, PO, BID, 0, Maintenance Start Date: 11/15/19 Status: Orderedondansetron 4 mg oral tablet 1 Tab, PO, q4hr, PRN, Nausea, 0, Maintenance Start Date: 11/15/19 Status: OrderedoxyCODONE 5 mg oral capsule 1 Cap Cap, PO, q6hr, PRN, as needed for pain, 5 Day, Qty: 10 Cap, 0, 11/29/19 22:27:00 MST, Acute, Route to Pharmacy Electronically, [facility] #[id number] Start Date: 11/24/19 Stop Date: 11/29/19 Status: Orderedsenna 17.2 mg, PO, Daily, 0, [...] 5:13 AM) (11/09/19 4:49 AM) thousand/uL] ABS Gooding 2.0 thousand/uL 1.5 thousand/uL 1.4 thousand/uL [0.0-1.6 [...] AM) (11/09 4:49 AM) mmol/L] Specific 1.008 [place] (11/09/19 12:49 AM) [1.008-1.020] UBacteria 1+ per [...] Completed Sclerotherapy of varicose vein2 Completed 1Left ognb2Tuwopanho Social History Social History Type Response Smoking Status Former smoker, quit more tarik n 30 days ago entered on: 11/15/19 Assessment and Plan Extracted from: Title: Clinical Document Author: Cristofer Morris MD Date: 11/09/19 See consult note Extracted from: Title: Dr. 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 Extracted from: Title: Consultation Author: [...] - on eliquis. Hospital Discharge Instructions Patient Vxbdichxp20/05/2020 16:52:55Deep Vein ThrombosisDeep Vein Thrombosis Deep vein [...] medicines you take. General instructions ??? Take ibxn-onw-becyimr and prescription medicines only as told by [...] 09/20/2006 Document Revised: 02/18/2018 Document Reviewed: 02/18/2018 [employer] Interactive Patient Education ?? 2019 [employer]. Fall Prevention in the Home, Adult, Evxb-io-HomoSqcc Prevention in the Home, Adult Falls can [...] Keep items that you use often in wast-wd-eunpr places. Lower the shelves around your home [...] the way. ??? Do not use floor citizen of [place] or wax that makes floors slippery. If [...] Control and Prevention, STE[place]: https://cdc.gov ??? National [place] on Aging: https://tz2ltjz.guzman.nih.gov Contact a doctor if: ??? You are [...] 07/17/2010 Document Revised: 05/05/2018 Document Reviewed: 05/05/2018 [employer] Interactive Patient Education ?? 2019 [employer]. Hand WashingHand Washing Germs such as bacteria, [...] leash. ? Touching money. ? Using household exchange mechanic or toxic chemicals. ? Handling soiled clothes, [...] soap and water. To use a hand housing officer, follow the directions on the product, and: [...] 05/11/2006 Document Revised: 06/29/2018 Document Reviewed: 06/29/2018 [employer] Interactive Patient Education ?? 2019 [employer]. Hypertension, AdultHypertension, Adult High blood pressure [...] provider. This is important. Medicines ??? Take vblw-uib-lbhpomg and prescription medicines only as told by [...] 09/20/2006 Document Revised: 05/31/2019 Document Reviewed: 05/31/2019 [employer] Interactive Patient Education ?? 2019 [employer]. Ischemic Stroke, Isck-oa-WcuuRplokbfa Stroke An ischemic stroke is the sudden [...] these instructions at home: Medicines ??? Take pupo-uhy-vpzgtyn and prescription medicines only as told by [...] 09/08/2012 Document Revised: 03/01/2019 Document Reviewed: 12/16/2016 [employer] Interactive Patient Education ?? 2019 [employer]. Living With DepressionLiving With Depression Everyone experiences [...] a problem, search for a local or [facility] care center. They may be able to [...] walking or lifting small weights. ??? Take zcif-wzn-xwgsusr and prescription medicines only as told by [...] 08/23/2017 Document Revised: 08/23/2017 Document Reviewed: 08/23/2017 [employer] Interactive Patient Education ?? 2019 [employer]. Smoking Cessation (HYANG)Smoking Cessation This document explains [...] by prescription. l Nicotine gum - Available chnp-agp-nlbsnan. l Nicotine inhaler - Available by prescription. l Nicotine nasal spray - Available by prescription. l Nicotine patch - Available by prescription and gjmv-lfb-icohssh. ?? Ask your health care provider for [...] information on smoking and how to quit. [place] [address] [place] [address] [phone]) AHA-USA1 ([phone]) [employer] [address] [place] [address] [employer] [address] [place] [address] [phone] National [place] [address] [phone] ([phone]) For women: [employer] [address] [place] [phone] FOR MORE INFORMATION The information was taken from Treating Tobacco Use and Dependence, a U.S. Public Health Service-sponsored Clinical Practice Guideline. This guideline was developed by a non-Federal panel of experts sponsored by a consortium consisting of Federal Government and nonprofit organizations: ?? Agency for Healthcare Research and Quality (AHRQ). ?? Centers for Disease Control and Prevention (CDC). ?? National Cancer [place] (NCI). ?? National Heart, Lung, and Blood [place] (NHLBI). ?? National [place] on Drug Abuse (LINDY). ?? [employer] [place] [employer] Foundation (RWF). ?? University of [employer]'s Center for Tobacco Research and Intervention (CTRI). For information about the guideline or to get more copies of this information, call: 163.730.2488, or write: Publications Clearinghouse, [address], [place] [address] U.S. Department of Health and Human Services, Public Health Service Document Released: 09/14/2002 Document Re-Released: 12/17/2009 ExitCare?? Patient Information ??2009 [employer]. Urinary Tract Infection, Adult, Bcou-ae-UjtbRmfcrji Tract Infection, Adult A urinary tract infection [...] these instructions at home: Medicines ??? Take bujz-whh-stoltbz and prescription medicines only as told by [...] 03/08/2009 Document Revised: 03/30/2019 Document Reviewed: 03/30/2019 Else[employer] Interactive Patient Education ?? 2019 [employer]. Follow Up Care11/08/2019 16:52:55With:Fili Ness Address: [address] [place] [phone] Business (1) When:As needed Comments:interventional cardiologistWith:Wilson Mccall Address: [address] [facility] [place] [phone] Business (1) When:1 to 2 weeks Comments:NeurologistWith:Carol Ruff Address: [address] [place] [phone] Business (1) When:1 to 2 weeks Comments:PCP
--- OUTSIDE RECORDS SUMMARY | 2022-07-28 13:36 | XMS_ITS | Referral Summary ---
:1940 Author Organization [facility] nter Address [address] [place] [address]- Care Team Providers Name Role Phone Carol Ruff MD Primary Care Physician Encounter EVSA_FIN [id number] Date(s): 11/27/19 - 12/16/19 [facility] [address] [place] 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 Fever (Discharge Diagnosis) - 12/13/19 Discharge Disposition: Home/self care Attending Physician: Tito Saunders MD Admitting Physician: Tito Saunders MD Vital Signs Most recent 1 2 3 4 5 6 7 8 9 10 to oldest [Reference Range]: Living Lives with family Lives with family Lives with family Situation (12/15/19 3:45 PM) (12/12/19 3:05 PM) (12/12/19 12:20 PM) Current Home None Treatments (11/28/19 3:30 PM) Sensory None None None Deficits (11/28/19 3:30 PM) (11/27/19 9:41 PM) (11/27/19 10:35 AM) Eating With 1 person assist/assistive device Wi th 1 person assist/assistive device (11/28/19 3:30 PM) (11/27/19 9:41 PM) Bathing With 1 person assist/assistive device Wi th 1 person assist/assistive device (11/28/19 3:30 PM) (11/27/19 9:41 PM) Dressing With 1 person assist/assistive device Wi th 1 person assist/assistive device (11/28/19 3:30 PM) (11/27/19 9:41 PM) Transferring With 1 person assist/assistive device Wi th 1 person assist/assistive device (11/28/19 3:30 PM) (11/27/19 9:41 PM) Toileting With 1 person assist/assistive device Wi th 1 person assist/assistive device (11/28/19 3:30 PM) (11/27/19 9:41 PM) Walking With 1 person assist/assistive device Wi th 1 person assist/assistive device (11/28/19 3:30 PM) (11/27/19 9:41 PM) Balancing With 1 person assist/assistive device Wi th 1 person assist/assistive device (11/28/19 3:30 PM) (11/27/19 9:41 PM) Current Home with assistance Living (11/28/19 3:30 PM) Environment Lives In () Single level home (11/28/19 3:30 PM) Lives With Child(ulises) (SW) (11/28/19 3:30 PM) Bed alarm on Yes No No (12/16/19 8:00 AM) (12/16/19 4:00 AM) (12/16/19 3:30 AM) Pain Scale Numeric Rating Scale Numeric Rating Scale Numeric Rati ng Scale Hickman-Epps/FACES Hickman-Epps/FACES Hickman-Epps/FACES Hickman-Epps/FACES Numeric Rating Scale Numeric Rating Scale Numeric Rating Scale Used (12/16/19 4:00 PM) (12/16/19 12:00 PM) (12/16/19 8:00 AM) ( 4:00 PM) (12/15/19 12:00 PM) (12/15/19 8:00 AM) (12/15/19 4:00 AM) (12/15/19 12:00 AM) (12/14/19 8:00 PM) (12/14/19 4:00 PM) Face NVPS 2 = Frequent grimace, tearing, frowning, wrinkled forehead 1 = Occasional grimace, tearing, frowning, wrinkled forehead (12/07/19 8:17 PM) (12/05/19 9:00 PM) Activity NVPS 1 = Seeks attention with movement or slo w cautious movement 1 = Seeks attention with movement or slow cautious movement (12/07/19 8:17 PM) (12/05/19 9:00 PM) Guarding NVPS 0 = Lies quietly, no positioning of hand s over areas of body 1 = Splinting areas of the body, tense (12/07/19 8:17 PM) (12/05/19 9:00 PM) Physiology 0 = Stable vital signs 0 = Stable vital signs NVPS (12/07/19 8:17 PM) (12/05/19 9:00 PM) Respiratory 0 = Baseline RR/Sp02 compliant with vent ilator 0 = Baseline RR/Sp02 compliant with ventilator NVPS (12/07/19 8:17 PM) (12/05/19 9:00 PM) NVPS Score 3 (12/07/19 8:17 PM) Temperature 36.5 deg C 36.4 deg C 36.5 deg C 36.7 deg C 36.7 deg C 36.9 deg C 36.5 deg C 36.9 deg C 36.8 deg C 37.1 deg C PO [36-37.5 (12/16/19 5:00 PM) (12/16/19 12:00 PM) (12/16/19 9:00 AM) (12/16/19 3:30 AM) (12/15/19 10:00 PM) (12/15/19 7:00 PM) (12/15/19 4:00 PM) (12/15/19 12: 00 PM) (12/15/19 7:00 AM) (12/14/19 9:00 PM) deg C] Temperature 37.1 deg C Axillary (12/08/19 5:41 AM) [36.2-38.1 deg C] Heart Rate 72 bpm 77 bpm 84 bpm 82 bpm 77 bpm 79 bpm 83 bpm 77 bpm 78 bpm 78 bpm [51-119 bpm] (12/16/19 5:00 PM) (12/16/19 12:00 PM) (12/16/19 9:00 AM) (12/16/19 3:30 AM) (12/16/19 12:10 AM) (12/15/19 11:30 PM) (12/15/19 11:00 PM) ( 0 10:00 PM) (12/15/19 12:00 PM) (12/15/19 7:00 AM) Blood 125/72 mm Hg 136/79 mm Hg 120/76 mm Hg 125/74 mm Hg 115/70 m m Hg 114/69 mm Hg 102/65 mm Hg 118/75 mm Hg 108/69 mm Hg 119/70 mm Hg Pressure (12/16/19 5:00 PM) (12/16/19 12:00 PM) (12/16/19 9:00 AM) (12/16/19 3:30 AM) (12/16/19 12:10 AM) (12/15/19 11:30 PM) (12/15/19 11:00 PM) (12/15/19 1 0:00 PM) (12/15/19 7:00 PM) (12/15/19 4:00 PM) [91-139/50-90 mm Hg] NIBP Mean 94 mm Hg 105 mm Hg (11/27/19 1:00 PM) (11/27/19 12:00 PM) Resp Rate 18 Breaths/Min 16 Breaths/Min 16 Breaths/Min 18 Breaths/Mi n 16 Breaths/Min 18 Breaths/Min 18 Breaths/Min 18 Breaths/Min 16 Breaths/Min 16 Breaths/Min (Monitor) (12/16/19 5:00 PM) (12/16/19 12:00 PM) (12/16/19 9:00 AM) (12/16/19 3:30 AM) (12/16/19 12:10 AM) (12/15/19 11:30 PM) (12/15/19 11:00 PM) (12/15/19 1 0:00 PM) (12/15/19 7:00 PM) (12/15/19 4:00 PM) [13-20 Breaths/Min] SPO2 [87-100 97 % 98 % 97 % 93 % 93 % 95 % 95 % 97 % 96 % 98 % %] (12/16/19 5:00 PM) (12/16/19 12:00 PM) (12/16/19 9:00 AM) ( 3:30 AM) (12/16/19 12:10 AM) (12/15/19 11:30 PM) (12/15/19 11:00 PM) (12/15/19 10:00 PM) (12/15/19 7:00 PM) (12/15/19 4:00 PM) Oxygen Amount 1 L/min 2 L/min 2 L/min 2 L/min 2 L/min 2 L/min 1 L/min 2 L /min 2 L/min 2 L/min (12/11/19 3:00 AM) (12/10/19 11:11 PM) (12/10/19 7:00 PM) ( 0 3:00 PM) (12/10/19 12:25 PM) (12/10/19 8:14 AM) (12/10/19 12:00 AM) (12/09/19 8:00 PM) (12/07/19 2:30 PM ) (12/07/19 1:45 PM) Oxygen Method Room air Room air Room air Room air Room air Room air Room air Room air Room air Room air (12/16/19 5:00 PM) (12/16/19 12:00 PM) (12/16/19 9:00 AM) ( 3:30 AM) (12/16/19 12:10 AM) (12/15/19 11:30 PM) (12/15/19 11:00 PM) (12/15/19 10:00 PM) (12/15/19 7:00 PM) (12/15/19 4:00 PM) FIO2 - pt 21 % care (11/27/19 11:20 PM) Glucose Level 114 mg/dL 107 mg/dL 102 mg/dL 129 mg/dL 110 mg/dL 102 mg/d L 89 mg/dL 91 mg/dL 94 mg/dL 108 mg/dL [70-99 mg/dL] *H* *H* *H* *H* *H* *H* (12/06/19 4:19 AM) (12/05/19 2:50 AM) (12/04/19 3:55 AM) *H* (12/16/19 2:54 AM) (12/15/19 4:27 AM) (12/14/19 8:34 AM) (12/02 10/23 1:06 PM) (12/12/19 11:23 AM) (12/07/19 5:22 AM) ( 3:13 AM) Glucose 135 mg/dL 1 95 mg/dL 2 98 mg/dL 3 109 mg/dL 4 (POCT) *H* (11/30/19 5:43 AM) (11/30/19 2:13 AM) (11/29/19 10:38 PM) Automated (12/10/19 2:05 PM) [70-110 mg/dL] Height 65.98 Inch (12/14/19 6:29 PM) Height 167.6 cm 167.6 cm 167.6 cm 165 cm 165 cm 167.6 cm 167.64 cm (12/14/19 3:00 PM) (12/12/19 12:16 PM) (12/07/19 3:53 PM) (12/03 2:26 PM) (11/29/19 5:05 PM) (11/27/19 9:41 PM) (11/27/19 10:35 AM) Drug Calc 73.1 kg 72.562 kg Weight (kg) (11/27/19 9:41 PM) (11/27/19 10:35 AM) Daily Weight 70 kg 70.2 kg 70.2 kg 69.4 kg 70.6 kg 69.3 kg 71.8 kg 71.6 kg 73.5 kg 74 kg (12/16/19 3:42 AM) (12/15/19 5:25 AM) (12/15/19 5:00 AM) (12/02 11/23 3:32 AM) (12/11/19 2:00 AM) (12/10/19 3:00 AM) (12/08/19 4:00 AM) (12/07/19 3:00 AM) (12/06/19 5:12 AM) (12/04/19 7:30 AM) Weight Method Actual Actual Actual Stated (12/08/19 4:00 AM) (12/02/19 6:00 AM) (11/27/19 9:41 PM) (11/27/19 10:35 AM) BMI 26.02 kg/m2 25.82 kg/m2 (11/27/19 9:41 PM) (11/27/19 10:35 AM) 1Result Comment: Coil Cleaner: [id number] JONATHAN [id number] Comment: Coil Cleaner: [id number] MATT [id number] Comment: Coil Cleaner: [id number] MATT SETH4Result Comment: Coil Cleaner: [id number] MATT SETH Problem List Condition Effective Dates Status Health Status Informant Stroke(Confirmed) Active Acute embolic stroke(Confirmed) Active ESBL(Confirmed)1 12/15/19 Active Shingles(Confirmed) Active Elevated troponin(Confirmed) Active 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 PER POLICY, CONSULT YOUR INFECTION CONTROL PRACTITIONER IF YOU FEEL THIS CONDITION SHOULD BE MARKED RESOLVED Allergies, Adverse Reactions, Alerts No Known Allergies Medications amLODIPine 5 mg oral tablet 1 Tab Tab, PO, qDay, 0, Maintenance Start Date: 12/16/19 Status: Orderedaspirin 81 mg oral tablet, chewable 1 Tab Tab, Chew, PO, Daily, Qty: 30 Tab, 0, Maintenance, Route to Pharmacy Electronically, [facility] #[id number] Start Date: 12/16/19 Status: Orderedatorvastatin 40 mg oral tablet 1 Tab Tab, PO, qDay, 0, Maintenance Start Date: 12/16/19 Status: OrderedCalcium 600 +D Tab 1 Tab Tab, PO, TID, 0, Maintenance Start Date: 10/25/19 Status: Orderedcitalopram 10 mg, PO, Daily, 0, Maintenance Start Date: 11/15/19 Status: OrderedColace 100 mg, PO, BID, 0, Maintenance Start Date: 11/15/19 Status: OrderedCoreg 6.25 mg oral tablet 1 Tab Tab, PO, BID, Qty: 60 Tab, 0, Maintenance, Route to Pharmacy Electronically, [facility] #[id number] Start Date: 12/16/19 Status: Orderedertapenem 1 gm injection 1 gm, Pwd, IV, qDay, 7 Day, Qty: 1 Kit, 0, 12/23/19 12:54:00 MST, Acute, Print Requisition Start Date: 12/16/19 Stop Date: 12/23/19 Status: OrderedFioricet 325/50/40 1 Tab, PO, q6hr, PRN, Headache, 5 Day, Qty: 24 Tab, 0, 12/21/19 13:02:00 MST, Acute, Route to Pharmacy Electronically, [facility] #[id number], Tab Start Date: 12/16/19 Stop Date: 12/21/19 Status: OrderedFlorastor 250 mg, PO, BID, 0, Maintenance Start Date: 11/15/19 Status: OrderedguaiFENesin 600 mg oral tablet, extended release 1 Tab, PO, BID, PRN, Cough, 0, Maintenance Start Date: 11/15/19 Status: Orderedondansetron 4 mg oral tablet 1 Tab Tab, PO, q4hr, PRN, Nausea, Qty: 20 Tab, 0, Maintenance, Route to Pharmacy Electronically, [facility] #[id number] Start Date: 12/06/19 Stop Date: 12/11/19 Status: Orderedsenna 17.2 mg, PO, Daily, PRN, as needed for constipation, 0, Maintenance Start Date: 11/15/19 Status: OrderedVitamin B12 50 mcg oral tablet 1 Tab Tab, PO, qDay, 0, Maintenance Start Date: 10/25/19 Status: OrderedVitamin D3 5,000 Unit oral capsule 1 Cap Cap, PO, qDay, 0, with food, Maintenance Start Date: 10/25/19 Status: Orderedwarfarin 2.5 mg oral tablet 1 Tab Tab, PO, qDay, Qty: 30 Tab, 0, Maintenance, Route to Pharmacy Electronically, [facility] #[id number] Start Date: 12/16/19 Stop Date: 01/15/20 Status: Ordered Results Most recent to 1 2 3 4 5 6 7 8 9 10 oldest [Reference Range]: Urine WBCs >150 per HPF [None per HPF] *ABN* (12/13/19 7:51 PM) CBC Scan Auto Diff Auto Diff Auto Diff Auto Diff Auto Diff Auto Diff Aut o Diff Auto Diff Auto Diff Auto Diff (12/16/19 2:54 AM) (12/15/19 4:27 AM) (12/14/19 8:34 AM) (12/06 5:22 AM) (12/06/19 4:19 AM) (12/05/19 2:50 AM) (12/04/19 3:55 AM) (12/03/19 3:13 AM) (12/02/19 7:44 AM ) (12/01/19 2:44 AM) Lymphs 4.8 % 9.7 % 7.2 % 7.7 % 12.6 % 16.2 % 12.8 % 8.0 % 10.6 % 12.2 % [10.0-55.0 %] *L* *L* *L* *L* (12/06/19 4:19 AM) (12/05/19 2 :50 AM) (12/04/19 3:55 AM) *L* (12/02/19 7:44 AM) (12/01/19 2:44 AM) (12/16/19 2:54 AM) (12/15/19 4:27 AM) (12/14/19 8:34 AM) (12/07/19 5: 22 AM) (12/03/19 3:13 AM) Monos. 5.6 % 15.0 % 14.4 % 9.3 % 10.0 % 10.4 % 10.1 % 12.4 % 10.5 % 10.6 % [0.0-15.0 %] (12/16/19 2:54 AM) (12/15/19 4:27 AM) (12/14/19 8:34 AM) (12/07/19 5:22 AM) (12/06/19 4:19 AM) (12/05/19 2:50 AM) (12/04/19 3:55 AM) (12/03/19 3:13 AM) (12/02/19 7:44 AM) (12/01/19 2:44 AM) Baso. [0.0-3.0 0.5 % 0.7 % 0.5 % 0.5 % 0.6 % 0.8 % 1.0 % 0.8 % 0.9 % 0.9 % %] (12/16/19 2:54 AM) (12/15/19 4:27 AM) (12/14/19 8:34 AM) (12/06 5:22 AM) (12/06/19 4:19 AM) (12/05/19 2:50 AM) (12/04/19 3:55 AM) (12/03/19 3:13 AM) (12/02/19 7:44 AM) (12/01/19 2:44 AM) Neuts 88.8 % 73.3 % 77.3 % 81.8 % 75.6 % 71.1 % 74.1 % 77.2 % 76.1 % 73.5 % [35.0-80.0 %] *H* (12/15/19 4:27 AM) (12/14/19 8:34 AM) *H* (12/06/19 4:19 AM) (12/05/19 2:50 AM) (12/04/19 3:55 AM) (12/03/19 3:13 AM) (12/02/19 7:44 AM) (12/01/19 2:44 AM) (12/16/19 2:54 AM) (12/07/19 5:22 AM) Eos. [0.0-9.0 0.3 % 1.3 % 0.6 % 0.7 % 1.2 % 1.5 % 2.0 % 1.6 % 1.9 % 2.8 % %] (12/16/19 2:54 AM) (12/15/19 4:27 AM) (12/14/19 8:34 AM) (12/06 5:22 AM) (12/06/19 4:19 AM) (12/05/19 2:50 AM) (12/04/19 3:55 AM) (12/03/19 3:13 AM) (12/02/19 7:44 AM) (12/01/19 2:44 AM) Strep Pneumo Negative 1 Ag, Urine. *NA* [Negative] (11/28/19 12:56 AM) HSV 1/2 Ab <0.34 IV 2 Screen IgG, *NA* CSF. [<=0.89 (11/29/19 1:53 PM) IV] Glucose Level 114 mg/dL 107 mg/dL 102 mg/dL 129 mg/dL 110 mg/dL 102 mg/d L 89 mg/dL 91 mg/dL 94 mg/dL 108 mg/dL [70-99 mg/dL] *H* *H* *H* *H* *H* *H* (12/06/19 4:19 AM) (12/05/19 2:50 AM) (12/04/19 3:55 AM) *H* (12/16/19 2:54 AM) (12/15/19 4:27 AM) (12/14/19 8:34 AM) (12/02 10/23 1:06 PM) (12/12/19 11:23 AM) (12/07/19 5:22 AM) ( 3:13 AM) UA Squam 0-10 per HPF Epithelial *NA* [0-10 per HPF] (12/13/19 7:51 PM) PLT Morph Normal (11/29/19 9:40 AM) Urine Culture Culture Ordered 3 if Indicated *NA* (12/13/19 7:51 PM) AST [5-34 45 Units/L 44 Units/L 64 Units/L 40 Units/L Units/L] *H* *H* *H* *H* (11/30/19 2:54 AM) (11/29/19 9:40 AM) (11/28/19 10:05 AM) (11/27/19 10:4 5 AM) ABS Neut 8.1 thousand/uL 6.9 thousand/uL 8.9 thousand/uL 9.9 thousa nd/uL 7.7 thousand/uL 6.9 thousand/uL 7.1 thousand/uL 7.7 thousand/uL 6.5 thousand/uL 7.1 thousand/uL [1.7-8.6 (12/16/19 2:54 AM) (12/15/19 4:27 AM) *H* *H* (12/05 4:19 AM) (12/05/19 2:50 AM) (12/04/19 3:55 AM) (12/03/19 3:13 AM) (12/02/19 7:44 AM) (12/01/19 2:4 4 AM) thousand/uL] (12/14/19 8:34 AM) (12/07/19 5:22 AM) CSF Volume 8.0 mL 4 *NA* (11/29/19 1:53 PM) CSF Eos [0-0 %] 1 % *H* (11/29/19 1:53 PM) Heparin 0.37 Int Unit/mL 0.33 Int Unit/mL 0.33 Int Unit/mL 0.37 In t Unit/mL 0.42 Int Unit/mL 0.54 Int Unit/mL 0.57 Int Unit/mL Anti-Xa, UFH (12/10/19 5:28 AM) (12/09/19 7:31 AM) (12/09/19 5:50 AM) (12/08/19 4:52 AM) (12/07/19 2:07 AM) (12/06/19 7:37 PM) (12/06/19 2:55 PM) [0.30-0.70 Int Unit/mL] UA WBC Clumps Present per HPF *ABN* (12/13/19 7:51 PM) Procalcitonin 0.08 ng/mL [0.05-0.15 (11/27/19 3:15 PM) ng/mL] CSF Number of 4 Tubes *NA* (11/29/19 1:53 PM) Hepatitis Bs Ag Non-Reactive [Non-Reactive] (11/27/19 3:15 PM) CSF RBC Count, 51661 /uL add [0-5] *NA* (11/29/19 1:53 PM) CSF Source. Lumbar Puncture (11/29/19 1:53 PM) CSF Tube 3 Counted *NA* (11/29/19 1:53 PM) CRP High Sens 62.34 mg/L [0.00-5.00 *H* mg/L] (11/28/19 10:05 AM) Hepatitis Bc Non-Reactive Ab, IgM (11/27/19 3:15 PM) [Non-Reactive] CSF RBC Count 68683 /uL [0-5] *NA* (11/29/19 1:53 PM) CSF Additional 1 Tube Counted *NA* (11/29/19 1:53 PM) CSF Polys. [0-0 99 % %] *H* (11/29/19 1:53 PM) Hepatitis A AB, Non-Reactive IgM (11/27/19 3:15 PM) [Non-Reactive] CSF Lymphs 0 % *NA* (11/29/19 1:53 PM) CSF Nucleated 114 /uL Count [0-5] *NA* (11/29/19 1:53 PM) Hepatitis C Ab Non-Reactive [Non-Reactive] (11/27/19 3:15 PM) Strep A, Rapid Negative Test (11/27/19 2:45 PM) HSV 1 and/or 2 0.24 IV 5 Antibodies IgM, *NA* CSF. [<=0.89 (11/29/19 1:53 PM) IV] Cocci IgG Negative Negative [Negative] (12/16/19 2:54 AM) (11/27/19 3:15 PM) Cocci IgM Negative Negative [Negative] (12/16/19 2:54 AM) (11/27/19 3:15 PM) CSF Color - No Xantho Spun (11/29/19 1:53 PM) RSV, PCR Negative [Negative] (11/27/19 2:45 PM) Influenza A, Negative PCR [Negative] (11/27/19 2:45 PM) Influenza B, Negative PCR [Negative] (11/27/19 2:45 PM) eGFR >60 mL/min/1.73m2 >60 mL/min/1.73m2 >60 mL/min/1.73m2 >60 mL/min/1.73m2 >60 mL/min/1.73m2 >60 mL/min/1.73m2 >60 mL/min/1.73m2 53 mL/min/1.73m2 42 mL/min/1.73m2 54 mL/min/1.73m2 Non- Am *NA* *NA* *NA* *NA* *NA* *NA* *NA* *NA* *NA* *NA* (12/16/19 2:54 AM) (12/15/19 4:27 AM) (12/14/19 8:34 AM) (12/02 10/23 1:06 PM) (12/12/19 11:23 AM) (12/07/19 5:22 AM) (12/06/19 4:19 AM) (12/05/19 2:50 AM) (12/04/19 3:55 AM) (12/03/19 3:13 AM) CSF Slide See Comment 6 Comment (11/29/19 1:53 PM) VZV PCR Source CSF *NA* (11/29/19 1:53 PM) VZV Not Detected 7 Real-TimePCR *NA* (11/29/19 1:53 PM) Degmacytes 1+ (Bite Cells) (11/29/19 9:40 AM) eGFR Afr/Amer >60 mL/min/1.73m2 >60 mL/min/1.73m2 >60 mL/min/1.73m2 >60 mL/min/1.73m2 >60 mL/min/1.73m2 >60 mL/min/1.73m2 >60 mL/min/1.73m2 >60 mL/min/1.73m2 51 mL/min/1.73m2 >60 mL/min/1.73m2 *NA* *NA* *NA* *NA* *NA* *NA* *NA* *NA* *NA* *NA* (12/16/19 2:54 AM) (12/15/19 4:27 AM) (12/14/19 8:34 AM) (12/02 10/23 1:06 PM) (12/12/19 11:23 AM) (12/07/19 5:22 AM) (12/06/19 4:19 AM) (12/05/19 2:50 AM) (12/04/19 3:55 AM) (12/03/19 3:13 AM) A/G Ratio 0.9 0.9 0.9 0.9 [0.8-1.6] (11/30/19 2:54 AM) (11/29/19 9:40 AM) (11/28/19 10:05 AM) (11/27/19 10:45 AM) ABS Baso 0.0 thousand/uL 0.1 thousand/uL 0.1 thousand/uL 0.1 thousa nd/uL 0.1 thousand/uL 0.1 thousand/uL 0.1 thousand/uL 0.1 thousand/uL 0.1 thousand/uL 0.1 thousand/uL [0.0-0.3 (12/16/19 2:54 AM) (12/15/19 4:27 AM) (12/14/19 8:34 AM) (12/06 5:22 AM) (12/06/19 4:19 AM) (12/05/19 2:50 AM) (12/04/19 3:55 AM) (12/03/19 3:13 AM) (12/02/19 7:44 AM) (12/01/19 2:44 AM) thousand/uL] ABS Eos 0.0 thousand/uL 0.1 thousand/uL 0.1 thousand/uL 0.1 thousa nd/uL 0.1 thousand/uL 0.1 thousand/uL 0.2 thousand/uL 0.2 thousand/uL 0.2 thousand/uL 0.3 thousand/uL [0.0-1.0 (12/16/19 2:54 AM) (12/15/19 4:27 AM) (12/14/19 8:34 AM) (12/06 5:22 AM) (12/06/19 4:19 AM) (12/05/19 2:50 AM) (12/04/19 3:55 AM) (12/03/19 3:13 AM) (12/02/19 7:44 AM) (12/01/19 2:44 AM) thousand/uL] ABS Lymph 0.4 thousand/uL 0.9 thousand/uL 0.8 thousand/uL 0.9 thousa nd/uL 1.3 thousand/uL 1.6 thousand/uL 1.2 thousand/uL 0.8 thousand/uL 0.9 thousand/uL 1.2 thousand/uL [0.5-5.9 *L* (12/15/19 4:27 AM) (12/14/19 8:34 AM) (12/07/19 5:2 2 AM) (12/06/19 4:19 AM) (12/05/19 2:50 AM) (12/04/19 3:55 AM) (12/03/19 3:13 AM) (12/02/19 7:44 AM ) (12/01/19 2:44 AM) thousand/uL] (12/16/19 2:54 AM) ABS [place] 0.5 thousand/uL 1.4 thousand/uL 1.6 thousand/uL 1.1 thousa nd/uL 1.0 thousand/uL 1.0 thousand/uL 1.0 thousand/uL 1.2 thousand/uL 0.9 thousand/uL 1.0 thousand/uL [0.0-1.6 (12/16/19 2:54 AM) (12/15/19 4:27 AM) (12/14/19 8:34 AM) (12/06 5:22 AM) (12/06/19 4:19 AM) (12/05/19 2:50 AM) (12/04/19 3:55 AM) (12/03/19 3:13 AM) (12/02/19 7:44 AM) (12/01/19 2:44 AM) thousand/uL] Albumin 2.4 gm/dL 2.6 gm/dL 2.6 gm/dL 2.9 gm/dL [3.4-5.0 gm/dL] *L* *L* *L* *L* (11/30/19 2:54 AM) (11/29/19 9:40 AM) (11/28/19 10:05 AM) (11/27/19 10:4 5 AM) Alkphos [40-150 166 Units/L 186 Units/L 204 Units/L 258 Units/L Units/L] *H* *H* *H* *H* (11/30/19 2:54 AM) (11/29/19 9:40 AM) (11/28/19 10:05 AM) (11/27/19 10:4 5 AM) ALT [0-55 22 Units/L 25 Units/L 28 Units/L 34 Units/L Units/L] (11/30/19 2:54 AM) (11/29/19 9:40 AM) (11/28/19 10:05 AM) (11/27/19 10:45 AM) Anion Gap 12 12 14 14 13 10 10 12 13 12 [5-15] (12/16/19 2:54 AM) (12/15/19 4:27 AM) (12/14/19 8:34 AM) (12/02 10/23 1:06 PM) (12/12/19 11:23 AM) (12/07/19 5:22 AM) (12/06/19 4:19 AM) (12/05/19 2:50 AM) (12/04/19 3:55 AM) (12/03/19 3:13 AM) Appearance Cloudy [Clear] *ABN* (12/13/19 7:51 PM) Bili Total 0.5 mg/dL 0.5 mg/dL 0.5 mg/dL 0.5 mg/dL [0.2-1.2 mg/dL] (11/30/19 2:54 AM) (11/29/19 9:40 AM) (11/28/19 10:05 AM) (11/27/19 10:45 AM) BUN [10-20 8 mg/dL 8 mg/dL 10 mg/dL 9 mg/dL 10 mg/dL 9 mg/dL 10 mg/dL 9 m g/dL 10 mg/dL 9 mg/dL mg/dL] *L* *L* (12/14/19 8:34 AM) *L* (12/12/19 11:23 AM) *L* (12/06/19 4:19 AM) *L* (12/04/19 3:55 AM) *L* (12/16/19 2:54 AM) (12/15/19 4:27 AM) (12/13/19 1:06 PM) (12/07/19 5:22 AM) (12/05/19 2:50 AM) (12/03/19 3:13 AM) CA 125 468.4 Units/mL 496.0 Units/mL [0.0-34.9 *H* *H* Units/mL] (12/03/19 9:13 AM) (12/03/19 3:13 AM) Chloride 103 mmol/L 101 mmol/L 99 mmol/L 98 mmol/L 100 mmol/L 101 mmol/L 102 mmol/L 104 mmol/L 106 mmol/L 106 mmol/L [98-107 mmol/L] (12/16/19 2:54 AM) (12/15/19 4:27 AM) (12/14/19 8:34 A M) (12/13/19 1:06 PM) (12/12/19 11:23 AM) (12/07/19 5:22 AM) (12/06/19 4:19 AM) (12/05/19 2:50 A M) (12/04/19 3:55 AM) (12/03/19 3:13 AM) CK [29-168 243 Units/L 226 Units/L 151 Units/L Units/L] *H* *H* (11/27/19 3:15 PM) (11/28/19 10:05 AM) (11/27/19 9:47 PM) CO2 [23-31 26 mmol/L 28 mmol/L 27 mmol/L 26 mmol/L 26 mmol/L 29 mmol/L 2 9 mmol/L 27 mmol/L 25 mmol/L 23 mmol/L mmol/L] (12/16/19 2:54 AM) (12/15/19 4:27 AM) (12/14/19 8:34 AM) (12/02 10/23 1:06 PM) (12/12/19 11:23 AM) (12/07/19 5:22 AM) (12/06/19 4:19 AM) (12/05/19 2:50 AM) (12/04/19 3:55 AM) (12/03/19 3:13 AM) Color [Yellow] Yellow (12/13/19 7:51 PM) Creatinine 0.63 mg/dL 0.68 mg/dL 0.78 mg/dL 0.78 mg/dL 0.69 mg/dL 0.81 m g/dL 0.82 mg/dL 1.01 mg/dL 1.24 mg/dL 0.99 mg/dL [0.57-1.11 (12/16/19 2:54 AM) (12/15/19 4:27 AM) (12/14/19 8:34 AM) (12/13/19 1:06 PM) (12/12/19 11:23 AM) (12/07/19 5:22 AM) (12/06/19 4:19 AM) (12/05/19 2:50 AM) *H* (12/03/19 3:13 AM) mg/dL] (12/04/19 3:55 AM) CSF Glucose 52 mg/dL [40-70 mg/dL] (11/29/19 1:53 PM) CSF Protein 72 mg/dL [15-45 mg/dL] *H* (11/29/19 1:53 PM) Globulin 2.6 gm/dL 2.8 gm/dL 2.9 gm/dL 3.3 gm/dL [2.5-4.1 gm/dL] (11/30/19 2:54 AM) (11/29/19 9:40 AM) (11/28/19 10:05 AM) (11/27/19 10:45 AM) Hct [37.0-47.0 28.3 % 27.4 % 30.5 % 30.8 % 30.1 % 32.2 % 28.6 % 28.5 % 28. 2 % 28.0 % %] *L* *L* *L* *L* *L* *L* *L* *L* *L* *L* (12/16/19 2:54 AM) (12/15/19 4:27 AM) (12/14/19 8:34 AM) (12/02 10/23 4:28 AM) (12/12/19 8:45 AM) (12/11/19 8:26 AM) (12/10/19 5:28 AM) (12/09/19 5:50 AM) (12/08/19 4:52 AM) (12/07/19 5:22 AM) Hgb [11.5-16.0 9.4 gm/dL 9.0 gm/dL 9.9 gm/dL 10.2 gm/dL 10.2 gm/dL 10.6 gm/dL 9.2 gm/dL 9.5 gm/dL 9.4 gm/dL 9.2 gm/dL gm/dL] *L* *L* *L* *L* *L* *L* *L* *L* *L* *L* (12/16/19 2:54 AM) (12/15/19 4:27 AM) (12/14/19 8:34 AM) (12/02 10/23 4:28 AM) (12/12/19 8:45 AM) (12/11/19 8:26 AM) (12/10/19 5:28 AM) (12/09/19 5:50 AM) (12/08/19 4:52 AM) (12/07/19 5:22 AM) Lactic Acid 1.1 mmol/L 1.0 mmol/L 1.0 mmol/L [0.5-2.0 (12/13/19 11:15 AM) (11/29/19 9:40 AM) (11/28/19 10:05 AM) mmol/L] MCH [27.0-34.0 30.4 pg 30.6 pg 29.5 pg 30.8 pg 30.6 pg 30.7 pg 30.6 pg 31 .3 pg 31.3 pg 29.9 pg pg] (12/16/19 2:54 AM) (12/15/19 4:27 AM) (12/14/19 8:34 AM) (12/02 10/23 4:28 AM) (12/12/19 8:45 AM) (12/11/19 8:26 AM) (12/10/19 5:28 AM) (12/09/19 5:50 AM) (12/08/19 4:52 AM) (12/07/19:22 AM) MCHC [32.0-37.0 33.2 gm/dL 32.8 gm/dL 32.5 gm/dL 33.1 gm/dL 33.7 gm/dL 32.9 gm/dL 32.4 gm/dL 33.2 gm/dL 33.4 gm/dL 33.0 gm/dL gm/dL] (12/16/19 2:54 AM) (12/15/19 4:27 AM) (12/14/19 8:34 AM) (12/02 10/23 4:28 AM) (12/12/19 8:45 AM) (12/11/19 8:26 AM) (12/10/19 5:28 AM) (12/09/19 5:50 AM) (12/08/19 4:52 AM) (12/07/19 5:22 AM) MCV [80.0-100.0 91.4 fL 93.1 fL 90.9 fL 93.1 fL 90.6 fL 93.4 fL 94.5 fL 9 4.2 fL 93.8 fL 90.6 fL fL] (12/16/19 2:54 AM) (12/15/19 4:27 AM) (12/14/19 8:34 AM) (12/02 10/23 4:28 AM) (12/12/19 8:45 AM) (12/11/19 8:26 AM) (12/10/19 5:28 AM) (12/09/19 5:50 AM) (12/08/19 4:52 AM) (12/07/19 5:22 AM) Mg [1.6-2.6 1.8 mg/dL 1.7 mg/dL 1.7 mg/dL 1.8 mg/dL mg/dL] (11/30/19 2:54 AM) (11/29/19 9:40 AM) (11/28/19 10:05 AM) (11/27/19 10:45 AM) Plt [130-400 297 thousand/uL 273 thousand/uL 300 thousand/uL 310 thou sand/uL 327 thousand/uL 377 thousand/uL 283 thousand/uL 270 thousand/uL 265 thousand/uL 307 thousand/uL thousand/uL] (12/16/19 2:54 AM) (12/15/19 4:27 AM) (12/14/19 8:34 AM) (12/13/19 4:28 AM) (12/12/19 8:45 AM) (12/11/19 8:26 AM) (12/10/19 5:28 AM) (12/09/19 5:50 AM ) (12/08/19 4:52 AM) (12/07/19 5:22 AM) Plt Est Adequate [Adequate] (11/29/19 9:40 AM) Protein, Total 5.0 gm/dL 5.4 gm/dL 5.5 gm/dL 6.2 gm/dL [6.4-8.3 gm/dL] *L* *L* *L* *L* (11/30/19 2:54 AM) (11/29/19 9:40 AM) (11/28/19 10:05 AM) (11/27/19 10:4 5 AM) RBC [4.00-5.40 3.09 million/uL 2.95 million/uL 3.36 million/uL 3.30 m illion/uL 3.33 million/uL 3.45 million/uL 3.02 million/uL 3.03 million/uL 3.00 million/uL 3.09 million/uL million/uL] *L* *L* *L* *L* *L* *L* *L* *L* *L* *L* (12/16/19 2:54 AM) (12/15/19 4:27 AM) (12/14/19 8:34 AM) (12/02 10/23 4:28 AM) (12/12/19 8:45 AM) (12/11/19 8:26 AM) (12/10/19 5:28 AM) (12/09/19 5:50 AM) (12/08/19 4:52 AM) (12/07/19 5:22 AM) RBC Morph See Morphology (11/29/19 9:40 AM) RDW [11.5-16.0 15.2 % 15.1 % 15.4 % 14.9 % 14.9 % 14.6 % 14.8 % 14.3 % 14. 1 % 14.2 % %] (12/16/19 2:54 AM) (12/15/19 4:27 AM) (12/14/19 8:34 AM) (12/02 10/23 4:28 AM) (12/12/19 8:45 AM) (12/11/19 8:26 AM) (12/10/19 5:28 AM) (12/09/19 5:50 AM) (12/08/19 4:52 AM) (12/07/19 5:22 AM) Sodium [134-144 137 mmol/L 137 mmol/L 137 mmol/L 134 mmol/L 136 mmol/L 136 mmol/L 137 mmol/L 139 mmol/L 140 mmol/L 138 mmol/L mmol/L] (12/16/19 2:54 AM) (12/15/19 4:27 AM) (12/14/19 8:34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 anxiety, or mood swings. ??? Memory changes. How can I help manage my side effects? Medicines ??? Take ymen-qih-gdwvcaj and prescription medicines only as told by your health care provider. ??? Talk with your health care provider before taking vitamins, supplements, and cxky-taq-hvegeru medicines. Some of these can interfere with chemotherapy. Activity ??? Get plenty of rest. ??? Get regular exercise by doing activities such as walking, gentle yoga, or neno chi. ??? Return to your normal activities as told by your health care provider. Ask your health care provider what activities are safe for you. Eating and drinking ??? Talk to a dietitian about what you should eat and drink during cancer treatment. ??? Drink enough fluid to keep your urine pale yellow. ??? If you have side effects that affect eating, these tips may help: ? Eat smaller meals and snacks often. ? Drink high-nutrition and high-calorie shakes or supplements. ? Eat bland and soft foods that are easy to eat. ? Do not eat foods that are hot, spicy, or hard to swallow. ??? Do not eat raw or undercooked meat, eggs, or seafood. ??? Always wash fresh fruits and vegetables well before eating them. General instructions ??? Learn as much as you can about your condition. ??? Keep all follow-up visits as told by your health care provider. This is important. ??? Use mouth rinse only as told by your health care provider. ??? Protect your skin from the sun by using sunscreen or wearing protective clothing and a hat. ??? If you have sore or itchy skin: ? Wear soft, comfortable clothing. ? Apply creams and ointments to your skin as told by your health care provider. ??? If you lose your hair, wear a wig, hat, or scarf to cover your head. You may want to have someone shave your head as you start to lose hair. ??? Meet with a hair and contract law specialist for makeup and skin care tips. How can I prevent infection and bleeding? Chemotherapy may lower your blood counts and put you at risk for infection and bleeding. Here are some ways to help prevent problems. Vaccines ??? Talk to your health care provider about vaccines. You should not get any live vaccines, such as the polio, MMR, chicken pox, and shingles vaccines. Do not be around people who have had live vaccines. ??? Make sure you get a yearly flu shot. People who will be near you should also get a yearly flu shot. Social activity ??? Stay away from crowded places where you could be exposed to germs. ??? Do not be around people who may be sick. ??? Do not share food or utensils with other people. ??? Wear a mask when outside the home if your blood counts are low. Cleanliness ??? Wash your hands often. Also make sure that other members of your household wash their hands often. ??? [place] your teeth daily using a soft toothbrush. General tips ??? Take your temperature regularly, especially if you have chills or feel warm. ??? Check with your health care provider before you: ? Travel. ? Have a dental procedure. ??? If you get chemotherapy through an IV or port, check the site every day for signs of infection. Check for redness, swelling, pain, fluid, and warmth. ??? Avoid activities that put you at risk for injury. ??? Use an electric razor to shave instead of a blade. Questions to ask your health care provider ??? What are the most common side effects of my treatment? How will they affect my daily life? What can I do to manage them? When can I expect them to end? What are some possible long-term side effects? What are possible complications? What support services are available? When should I contact my cancer care provider? What number can I call with questions or concerns? Where to find support Cancer affects the entire family. Find out what family support resources are available from your cancer treatment center. For more support, turn to: ??? Your cancer care team. ??? Friends and family. ??? Your jainism community. ??? Other people with cancer. ??? Online support groups. Where to find more information ??? National Cancer [place]: www.cancer.gov ??? [place] [employer]: www.cancer.org Contact a health care provider if: ??? You bleed or bruise often. ??? You have: ? A skin rash or dry or itchy skin. ? A headache or stiff neck. ? Cold or flu symptoms. ? A cough. ? Nausea or vomiting. ? Diarrhea. ? Frequent urination, burning when passing urine, or foul-smelling urine. ? Blood in your urine or stool. ??? You cannot eat because of mouth or throat pain. ??? You are sad, confused, anxious, or depressed. Get help right away if: ??? You have: ? A fever. ? Redness, swelling, pain, fluid, or warmth near an IV site. ? Bleeding that you cannot stop. ? A seizure. ??? You cannot swallow. ??? You have chest pain. ??? You have trouble breathing. Summary ??? Chemotherapy is a treatment that uses medicine to kill cancer cells. Chemotherapy causes side effects. The specific side effects depend on the specific medicines used. ??? Learn as much as you can about your condition. Ask about side effects to watch for and how to treat them. ??? Seek out support and resources from others. Find out what family support resources are availablefrom your cancer treatment center. ??? Let your health care provider know if you notice any new or unusual symptoms. This information is not intended to replace advice given to you by your health care provider. Make sure you discuss any questions you have with your health care provider. Document Released: 12/15/2018 Document Revised: 12/15/2018 Document Reviewed: 12/15/2018 [employer] Interactive Patient Education ?? 2019 [employer]. Ovarian CancerOvarian Cancer Ovarian cancer is an abnormal [...] and fallopian tubes. ??? Tests, such as: ? An imaging test that uses sound waves to take pictures of your uterus, bladder, ovaries, and fallopian tubes (transvaginal ultrasound). For this test, a sound wave probe is inserted into your vagina. ? CT scan, PET scan, or MRI. ? X-rays of the colon and rectum. ? Blood tests. ? Taking a small piece of tissue to examine it under a microscope (biopsy). ? Removing built-up fluid from the abdomen (ascites) [...] ask to meet with a food and nutrition helper (dietitian). ??? Consider joining a support group with others who have cancer. A support group may help you with resources and information to help you cope with your cancer. General instructions ??? Take ntdy-voe-xrzirxt and prescription medicines only as told by your health care provider. ??? Do not drive or use heavy machinery while taking prescription pain medicine. ??? If you are taking prescription pain medicine, take actions to prevent or treat constipation. Your health care provider may recommend that you: ? Drink enough fluid to keep your urine pale yellow. ? Eat foods that are high in fiber, such as fresh fruits and vegetables, whole grains, and beans. ? Limit foods that are high in fat and processed sugars, such as fried or sweet foods. ? Take an jyvk-mkr-sctmije or prescription medicine for constipation. ??? You may need to have regular blood tests and imaging tests to monitor your response to treatment. ??? Keep all follow-up visits as told by your health care provider. This is important. Where to find more information ??? [place] [employer]: www.cancer.org ??? National Cancer [place]: www.cancer.gov Contact a health care provider if [...] care provider. Document Released: 08/10/2005 Document Revised: 10/12/2018 Document Reviewed: 10/12/2018 [employer] Interactive Patient Education ?? 2019 [employer]. Follow Up [facility]11/27/2019 09:39:11With:Wilson Mccall MD Address: [address] [place] [address] [phone] When:1 to 2 weeksWith:Shiva Randall MD Address: [address] [facility] [address] [place] [address] [phone] When:1 to 2 weeksWith:Carrie Franks MD Address: [address] [place] [address] [phone] When:1 weekWith:Carol Ruff MD Address: [phone] When:1 to 3 days
--- OUTSIDE RECORDS SUMMARY | 2022-07-28 13:36 | XMS_ITS | Continuity of Care Document ---
:1940 Author Organization [facility] nter Address [address] [place] [address]- Care Team Providers Name Role Phone Carol Ruff MD Primary Care Physician Encounter EVSA_FIN [id number] Date(s): 05/31/20 - 06/03/[address] [facility] [address] [place] [address]- [place] [phone] Encounter Diagnosis Ovarian cancer (Discharge Diagnosis) - 06/03/20 Malignant neoplasm of right ovary (Discharge Diagnosis) - Essential (primary) hypertension (Discharge Diagnosis) - Personal history of transient ischemic attack (TIA), and cerebral infarction without residual deficits (Discharge Diagnosis) - Personal history of other malignant neoplasm of skin (Discharge Diagnosis) - Personal history of antineoplastic chemotherapy (Discharge Diagnosis) - Major depressive disorder, single episode, unspecified (Discharge Diagnosis) - Personal history of other venous thrombosis and embolism (Discharge Diagnosis) - Discharge Disposition: Home/self care Attending Physician: Carrie [...] 4. warfarin.(warfarin) 5 mg By mouth raz wednesday?? 5. aspirin(aspirin) 81 mg By mouth every morning?? 6. carvedilol(carvedilol) 6.25 mg By susi twice daily with meals?? 7. gabapentin(gabapentin) 100 [...] rest ? 1-[address] Franks Future Scheduled TestsRadiologyXR L Spine 2-3 Views 11/09/19XR Wrist 2 Views Lt 11/21/19IR IVC Filter Placement Percutaneous 11/11/19 Medications acetaminophen-oxycodone 325 mg-5 mg oral tablet 1-2 tab, PO, q4hr Routine PRN Pain Moderate to Severe (4-10), FIRST DOSE INSTRUCTIONS: Start with 1 tab, assess response after 30 minutes., Start: 05/31/20 17:02:00 MST Notes: NTE 4 gms of Acetaminophen in 24 hrs. C: Narcotic Pain Medication; I: Pain; SE: constipation;dizziness, drowsiness, nausea. Start Date: 05/31/20 Stop Date: 06/03/20 Status: DiscontinuedamLODIPine 2.5 mg, PO, Tab, Start: 06/02/20 9:00:00 MST Start Date: 06/02/20 Stop Date: 06/02/20 Status: Completedaspirin 81 mg, PO, qAM, Refills: 0, Maintenance Start Date: 05/28/20 Status: Orderedatorvastatin 20 mg, PO, qHS, Refills: 0, Maintenance Start Date: 05/28/20 Status: OrderedCalcium 600 +D Tab 1 Tab Tab, PO, TID, 0, Maintenance Start Date: 10/25/19 Status: Orderedcarvedilol 6.25 mg, PO, Tab, Start: 06/02/20 9:00:00 MST Start Date: 06/02/20 Stop Date: 06/02/20 Status: [...] greater than 1.5 mg/dL), Start: 06/02/20 15:00:00 MST, Stop: 06/02/20 15:00:00 MST Start Date: 06/02/20 Stop Date: 06/02/20 Status: CompletedTylenol oral TABLET 1,000 mg, PO, Tab, q8hr Priority: Routine PRN Pain Mild (1-3), Start: 05/31/20 16:52:00 [facility] Notes: NTE 4 gms of Acetaminophen in [...] vein(Confirmed) 1right sided weakness- uses walker to [id number] WEAKNESS RIGHT SIDE, USES WALKER, MEMORY DEFICITS,3This problem was added by Discern Expert for Lab confirmed ESBL. PER POLICY, CONSULT YOUR INFECTION CONTROL PRACTITIONER IF YOU FEEL THIS CONDITION SHOULD BE MARKED LOJIGYVE4DYPON CELL AND SQUAMOUS REMOVED5 TREATED WITH CHEMO.6FINGERS AND TOES FROM [id number] Procedures Procedure Date Related Diagnosis Body Site Status ivc filter 11/14/19 Completed Bladder operation1 10/1990 Completed BLEPHROPLASTY Completed Carcinoma2 Completed CATARACTS REMOVED Completed Hysterectomy Completed Knee replacement3 Completed Plantar fascia4 Completed PORTACATH LEFT CHEST Complet ed Rectal fistula Completed Sclerotherapy of varicose vein5 Completed 1BLADDER [id number] SKIN CANCERS [id number] Results Laboratory List Name Date Basic Metabolic [...] thousand/uL] 0.8 thousand/uL (06/02/20 7:02 AM) ABS [facility] [0.0-1.6 thousand/uL] 0.6 thousand/uL (06/02/20 7:02 AM) [...] 1 Unknown BONNIE: No Information Assigning Authority: FDA Hospital Discharge Instructions Patient Pxvdkmeum18/31/2020 12:33:05EV [facility] (Eng) Admission Orientation (CUSTOM) [facility] [address] [place] [address] Admission Orientation Welcome to [facility]. You are a very important part [...] must dial ?? 0??? for the hospital sodium methylate operator to assist you. TELEVISION The TV [...] care or safety, please speak to the health administration teacher or Bindery Machine Feeder Offbearer. ??? If they are unable to resolve your concern/complaint, you can call the Customer Communication line at [phone]. ??? If your concerns are not satisfactorily resolved through the hospital, you may contact the [facility] or the Department of Health Services: ?? The Joint Commission: Call or email: ?? [place] Dept of Health Services: [address] [place] [address] Website: https://rafi.[facility].gov/ls/online_complaint/MEDComplaint.aspx FAMILY RAPID RESPONSE is a lifeline to immediate help when a patient or loved one feels the patient???s condition has worsened and immediate medical attention is needed. Dial [phone] from any hospital phone. PREVENTING INFECTION Five [...] them with alcohol-based hand sanitizers. Rub the apron operator all over your hands, especially under your [...] medicine and it is not working At [facility], we will work with you and [...] rate ??? Shortness of breath FROM THE PRINT SUPPORT SPECIALIST Spiritual Care Services providing emotional and spiritual [...] advanced health care planning To contact a mobile architect, ask your nurse to call Spiritual Care Services Department: Processing Engineer: [phone] Director: [phone] We???re here to support your tracie, beliefs [...] to have a stroke. ??? Sex: and [place] Nigerien men have a higher risk. ??? Prior [...] agencies for smoking-cessation information or classes: ??? [facility] Tobacco Use Prevention Program- Telephone number: ([phone] ??? [place] Smokers' Helpline:425.625.2877 or access via website: WWW.Medityplus ??? [place] [employer] Association Telephone number: (090)-197-1720 ??? [place] Cancer Society 06/03/2020 11:47:00Ovarian CancerOvarian Cancer Ovarian [...] to meet with a food and nutrition professor (dietitian). ??? Consider joining a support group with others who have cancer. A support group may help you with resources and information to help you cope with your cancer. General instructions ??? Take jjwd-zxi-gqcgfwm and prescription medicines only as told by [...] fried or sweet foods. ??? Take an weka-swt-mtqkgft or prescription medicine for constipation. ??? You may need to have regular blood tests and imaging tests to monitor your response to treatment. ??? Keep all follow-up visits as told by your health care provider. This is important. Where to find more information ??? [place] Cancer Society: www.cancer.org ??? National Cancer [place]: www.cancer.gov Contact a health care provider if [...] 08/10/2005 Document Revised: 01/11/2020 Document Reviewed: 10/12/2018 [employer] Patient Education ?? 2020 [employer] 06/03/2020 11:47:00Bilateral Salpingo-OophorectomyBilateral Salpingo-Oophorectomy Bilateral salpingo-oophorectomy is [...] including vitamins, herbs, eye drops, creams, and zzak-czh-hlolspnjjupmfrqh. ??? Any problems you or family members [...] Document Reviewed: 10/25/2017 Elsevier Patient Education ?? 2020 [employer]. 05/31/2020 08:48:03EV (Eng) Preventing Surgical Site Infections (SSI) (CUSTOM) [address] [address] [place] [address] FREQUENTLY ASKED QUESTIONS ABOUT SURGICAL [...] (Eng) How we make your Surgery Safe (CUSTOM)[facility] [address] [place] [address] [place] [address] HOW DO WE MAKE YOUR SURGERY SAFE? Every year millions of people have surgery. Every surgery has risks but we know there are some risksthat can be decreased or prevented. Don???t be afraid to ask about safety. Your health is too important to worry about being embarrassed if you don???t understand something that your surgeon, nurse or other health resident care technician tells you. Your care team includes your [...] have a right to know. Follow Up [facility]05/08/2020 06:23:41With:Carrie Franks MD Address: [address] [place] [phone] When:1 to 2 weeks
--- OUTSIDE RECORDS SUMMARY | 2022-07-28 13:37 | XMS_ITS | Continuity of Care Document ---
:1940 Author Organization [facility] Address [address] [place] [address]- Care Team Providers Name Role Phone Carol Ruff MD Primary Care Physician Encounter ABEL_DWIGHT [id number] Date(s): 01/29/21 - 01/29/21 [facility] [address] [place] [address]- [facility] Discharge Disposition: Home/self care Attending Physician: Carrie Franks MD Allergies, Adverse Reactions, Alerts No Known Allergies Medications aspirin 81 mg, PO, qAM, Refills: 0, Maintenance Start Date: 05/28/20 Status: OrderedCalcium 600 +D Tab 1 Tab Tab, PO, TID, 0, Maintenance Start Date: 10/25/19 Status: OrderedCentrum Silver Women's oral tablet 1 Tab, PO, Daily, Refills: 0, Maintenance Start Date: 05/28/20 Status: Orderedenoxaparin 60 mg, SUBCUT, BID, Refills: 0, Maintenance Start Date: 05/28/20 Status: OrderedfentaNYL INJ 25-50 mcg, IV Push, INJ, q5min Priority: Routine PRN Sedation, For light (RASS of -2) or moderate (RASS of -3) sedation. Start 25-50mcg/5 min until level of sedation is achieved and/or dose of 250mcg/hr is reached. May redose for longer procedure to... Notes: C: Narcotic Pain Medication; I: Pain; SE: constipation; dizziness, drowsiness, nausea Start Date: 01/29/21 Stop Date: 01/29/21 Status: DiscontinuedFlorastor 250 mg, PO, BID, 0, Maintenance Start Date: 11/15/19 Status: OrderedLynparza 100 mg oral tablet 2 Tab Tab, PO, BID, Qty: 120 Tab, Refills: 0, Maintenance Start Date: 01/29/21 Status: Orderedmelatonin 9 mg, PO, qHS, Refills: 0, Maintenance Start Date: 05/28/20 Status: OrderedVitamin B12 50 mcg oral tablet [...] vein(Confirmed) 1right sided weakness- uses walker to [id number] WEAKNESS RIGHT SIDE, USES WALKER, MEMORY DEFICITS,3This problem was added by Discern Expert for Lab confirmed ESBL. PER POLICY, CONSULT YOUR INFECTION CONTROL PRACTITIONER IF YOU FEEL THIS CONDITION SHOULD BE MARKED [id number] CELL AND SQUAMOUS REMOVED5 TREATED WITH CHEMO.6FINGERS AND TOES FROM [id number] Procedures Procedure Date Related Diagnosis Body Site Status ivc filter 11/14/19 Completed Bladder operation1 10/1990 Completed BLEPHROPLASTY Completed Carcinoma2 Completed CATARACTS REMOVED Completed Hysterectomy Completed Knee replacement3 Completed Plantar fascia4 Completed PORTACATH LEFT CHEST Complet ed Rectal fistula Completed Sclerotherapy of varicose vein5 Completed 1BLADDER [id number] SKIN CANCERS [id number] [id number] Results Laboratory List Name Date Basic Metabolic Panel (BMP (Lytes, Glucose, Bun, Creat , & CA)) 01/29/21 CBC w/Diff* (man diff if indicated) 01/29/21 Pathologist Review Request GL 01/29/21 Most recent to oldest [Reference Range]: 1 CBC Scan Scan/Morph (01/29/21 8:31 AM) Lymphs [10.0-55.0 %] 11.4 % (01/29/21 8:31 AM) Monos. [0.0-15.0 %] 12.2 % (01/29/21 8:31 AM) Baso. [0.0-3.0 %] 1.3 % (01/29/21 8:31 AM) Neuts [35.0-80.0 %] 72.5 % (01/29/21 8:31 AM) Eos. [0.0-9.0 %] 2.6 % (01/29/21 8:31 AM) Glucose Level [83-110 mg/dL] 98 mg/dL (01/29/21 8:31 AM) ABS Neut [1.7-8.6 thousand/uL] 2.4 thousand/uL (01/29/21 8:31 AM) Teardrop Cell 1+ (01/29/21 8:31 AM) eGFR Non- Am >60 mL/min/1.73m2 *NA* (01/29/21 8:31 AM) Poikilocytosis 2+ (01/29/21 8:31 AM) eGFR Afr/Amer >60 mL/min/1.73m2 *NA* (01/29/21 8:31 AM) Fragmented RBC (Schistocytes) 1+ *ABN* (01/29/21 8:31 AM) ABS Baso [0.0-0.3 thousand/uL] 0.0 thousand/uL (01/29/21 8:31 AM) ABS Eos [0.0-1.0 thousand/uL] 0.1 thousand/uL (01/29/21 8:31 AM) ABS Lymph [0.5-5.9 thousand/uL] 0.4 thousand/uL *L* (01/29/21 8:31 AM) ABS [place] [0.0-1.6 thousand/uL] 0.4 thousand/uL (01/29/21 8:31 AM) Anion Gap [10-20] 14 (01/29/21 8: AM) Anisocytosis 2+ (01/29/21 AM) BUN [10-20 mg/dL] 16 mg/dL (01/29/21: AM) Chloride [98-107 mmol/L] 103 mmol/L (01/29/21 AM) CO2 [23-31 mmol/L] 24 mmol/L (01/29/21 AM) Creatinine [0.57-1.25 mg/dL] 0.85 mg/dL (01/29/21: AM) Hct [37.0-47.0 %] 30.0 % *L* (01/29/21 AM) Hgb [11.5-16.0 gm/dL] 10.3 gm/dL *L* (01/29/21 AM) Macrocytes 3+ (01/29/21 AM) MCH [27.0-34.0 pg] 44.2 pg *H* (01/29/21 AM) MCHC [32.0-37.0 gm/dL] 34.5 gm/dL (01/29/21 8:31 AM) MCV [80.0-100.0 fL] 128.3 fL *H* (01/29/21 8 AM) Ovalocytes 1+ (01/29/21: AM) Plt [130-400 thousand/uL] 220 thousand/uL (01/29/21 831 AM) Plt Est [Adequate] Adequate (01/29/21: AM) Polychromasia 1+ (01/29/21 AM) RBC [4.00-5.40 million/uL] 2.34 million/uL *L* (01/29/21 AM) RBC Morph See Morphology (01/29/21 AM) RDW [11.5-16.0 %] 16.5 % *H* (01/29/21:31 AM) Smear Review RBC, WBC, and platelet morph ology appear normal. Js Monet M.D. *NA* (01/29/21 8:31 AM) Sodium [136-145 mmol/L] 137 mmol/L (01/29/21 8:31 AM) WBC [4.8-10.8 thousand/uL] 3.3 thousand/uL *L* (01/29/21 8:31 AM) Potassium [3.5-5.1 mmol/L] 4.0 mmol/L (01/29/21 8:31 AM) Calcium [8.4-10.2 mg/dL] 9.0 mg/dL (01/29/21 8:31 AM) Vital Signs Most recent 1 2 3 4 5 6 7 8 9 10 to oldest [Reference Range]: Pain Scale Numeric Rating Scale Numeric Rating Scale Non-ve rbal Pain Scale (NVPS) Non-verbal Pain Scale (NVPS) Non-verbal Pain Scale (NVPS) No n-verbal Pain Scale (NVPS) Non-verbal Pain Scale (NVPS) Non-verbal Pain Scale (NVPS) No n- verbal Pain Scale (NVPS) Non-verbal Pain Scale (NVPS) Used (01/29/21 12:30 PM) (01/29/21 11:15 AM) (01/29/21 10:50 A M) (01/29/21 10:45 AM) (01/29/21 10:40 AM) (01/29/21 10:38 AM) (01/29/21 10:30 AM) (01/29/21 1 0:25 AM) (01/29/21 10:24 AM) (01/29/21 10:15 AM) Heart Rate 68 bpm 68 bpm 56 bpm 56 bpm 58 bpm 66 bpm 66 bpm 64 bpm 64 bpm 64 bpm [51-119 bpm] (01/29/21 12:30 PM) (01/29/21 12:00 PM) (01/29/21 11:45 A M) (01/29/21 11:30 AM) (01/29/21 11:15 AM) (01/29/21 11:00 AM) (01/29/21 10:55 AM) ( 1 10:50 AM) (01/29/21 10:45 AM) (01/29/21 10:40 AM) Blood 110/60 mm Hg 108/58 mm Hg 118/58 mm Hg 108/56 mm Hg 97/70 mm Hg 108/56 mm Hg 100/53 mm Hg 103/56 mm Hg 104/55 mm Hg 117/51 mm Hg Pressure (01/29/21 12:30 PM) (01/29/21 12:00 PM) (01/29/21 11:45 A M) (01/29/21 11:30 AM) (01/29/21 11:15 AM) (01/29/21 11:00 AM) (01/29/21 10:55 AM) (01/29/21 1 0:50 AM) (01/29/21 10:45 AM) (01/29/21 10:40 AM) [91-139/50-9 0 mm Hg] NIBP Mean 81 mm Hg 83 mm Hg 79 mm Hg 80 mm Hg (01/29/21 12:00 PM) (01/29/21 11:45 AM) (01/29/21 11:30 AM) ( 1 11:15 AM) Resp Rate 16 Breaths/Min 16 Breaths/Min 16 Breaths/Min 16 Breaths/Mi n 16 Breaths/Min 16 Breaths/Min 16 Breaths/Min 16 Breaths/Min 16 Breaths/Min 16 Breaths/Min (Monitor) (01/29/21 11:00 AM) (01/29/21 10:55 AM) (01/29/21 10:50 A M) (01/29/21 10:45 AM) (01/29/21 10:40 AM) (01/29/21 10:35 AM) (01/29/21 10:30 AM) ( 1 10:25 AM) (01/29/21 10:20 AM) (01/29/21 10:15 AM) [13-20 Breaths/Min] SPO2 [87-100 96 % 96 % 97 % 100 % 94 % 92 % 97 % 97 % 97 % 96 % %] (01/29/21 12:30 PM) (01/29/21 11:45 AM) (01/29/21 11:30 AM) ( 01/29/21 11:15 AM) (01/29/21 11:00 AM) (01/29/21 10:55 AM) (01/29/21 10:50 AM) (01/29/21 10:45 AM) (01/29/21 10:40 AM) (01/29/21 10:35 AM) Oxygen 2 L/min 4 L/min 4 L/min 4 L/min 4 L/min 4 L/min 4 L/min 4 L/min Amount (01/29/21 11:00 AM) (01/29/21 10:40 AM) (01/29/21 10:35 A M) (01/29/21 10:30 AM) (01/29/21 10:25 AM) (01/29/21 10:20 AM) (01/29/21 10:15 AM) (01/29/21 1 0:10 AM) Oxygen Room air Room air Room air Room air Room air Nasal cannula Room air Room air Room air Nasal cannula Method (01/29/21 12:30 PM) (01/29/21 12:00 PM) (01/29/21 11:45 A M) (01/29/21 11:30 AM) (01/29/21 11:15 AM) (01/29/21 11:00 AM) (01/29/21 10:55 AM) (01/29/21 1 0:50 AM) (01/29/21 10:45 AM) (01/29/21 10:40 AM) Glucose 98 mg/dL Level (01/29/21 8:31 AM) [83-110 mg/dL] Height 165.1 cm (01/29/21 8:37 AM) Drug Calc 59.864 kg Weight (kg) (01/29/21 8:37 AM) Weight Stated Method (01/29/21 8:37 AM) BMI 21.96 kg/m2 (01/29/21 8:37 AM) Sensory None Deficits (01/29/21 8:37 AM) Bed alarm on No (01/29/21 11:15 AM) Social History Social History Type Response Smoking Status Former smoker, quit more tarik n 30 days ago entered on: 01/29/21 Sex Medical Equipment Implanted Date:11/14/19 Target Site:Unknown Description Quantity MRI Company Model IVC Filter 1 Unknown BONNIE: No Information Assigning Authority: [facility] Hospital Discharge Instructions Patient Mfnhlzegn78/28/2021 12:36:09MSJ Sedation or Anesthesia, Aftercare, Adult, Surgical Site Infections(CUSTOM)Discharge Instructions After Sedation/Anesthesia, Adult The medicines you received during the procedure or test today can sometimes cause you to be confused, sleepy, dizzy, and clumsy. You need to be extra careful for the next 24 hours. HOME CARE INSTRUCTIONS: Do not engage in any activity that requires you to be alert or coordinated for the next 24 hours. This includes driving, operating heavy machinery, using power tools, cooking, climbing, or riding a bicycle. No swimming, hot tubs, or baths for the next 24 hours. Stay with family, friends, or a caregiver for the next 24 hours. Do not make any important decisions in the next 24 hours such as signing contracts, important commitments, or making expensive purchases. Do not drink alcohol for 24 hours. Avoid solid food if you have nausea (feeling sick to your stomach) or vomiting. Drink plenty of fluids. Take only medications prescribed by your caregiver in the dose prescribed. Call your caregiver for persistent nausea and/or if you vomit more than once. If you cannot reach your caregiver, go to or contact the Emergency Department. FREQUENTLY ASKED QUESTIONS ABOUT Surgical Site Infections What [...] questions, please ask your doctor or nurse. 01/29/2021 12:35:33Implanted Port Removal, Care AfterImplanted Port Removal, Care After This sheet gives you information about how to care for yourself after your procedure. Your health care provider may also give you more specific instructions. If you have problems or questions, contact your health care provider. What can I expect after the procedure? After the procedure, it is common to have: ??? Soreness or pain near your incision. ??? Some swelling or bruising near your incision. Follow these instructions at home: Medicines ??? Take uvub-aqx-qfqzzag and prescription medicines only as told by your health care provider. ??? If you were prescribed an antibiotic medicine, take it as told by your health care provider. Do not stop taking the antibiotic even if you start to feel better. Bathing ??? Do not take baths, swim, or use a hot tub until your health care provider approves. Ask your health care provider if you can take showers. You may only be allowed to take sponge baths. Incision care ??? Follow instructions from your health care provider about how to take care of your incision. Makesure you: ??? Wash your hands with soap and water before you change your bandage (dressing). If soap and waterare not available, use hand informatics consultant. ??? Change your dressing as told by your health care provider. ??? Keep your dressing dry. ??? Leave stitches (sutures), skin glue, or adhesive strips in place. These skin closures may need to stay in place for 2 weeks or longer. If adhesive strip edges start to loosen and curl up, you may trim the loose edges. Do not remove adhesive strips completely unless your health care provider tells you to do that. ??? Check your incision area every day for signs of infection. Check for: ??? More redness, swelling, or pain. ??? More fluid or blood. ??? Warmth. ??? Pus or a bad smell. Driving ??? Do not drive for 24 hours if you were given a medicine to help you relax (sedative) during your procedure. ??? If you did not receive a sedative, ask your health care provider when it is safe to drive. Activity ??? Return to your normal activities as told by your health care provider. Ask your health care provider what activities are safe for you. ??? Do not lift anything that is heavier than 10 lb (4.5 kg), or the limit that you are told, until your health care provider says that it is safe. ??? Do not do activities that involve lifting your arms over your head. General instructions ??? Do not use any products that contain nicotine or tobacco, such as cigarettes and e-cigarettes. These can delay healing. If you need help quitting, ask your health care provider. ??? Keep all follow-up visits as told by your health care provider. This is important. Contact a health care provider if: ??? You have more redness, swelling, or pain around your incision. ??? You have more fluid or blood coming from your incision. ??? Your incision feels warm to the touch. ??? You have pus or a bad smell coming from your incision. ??? You have pain that is not relieved by your pain medicine. Get help right away if you have: ??? A fever or chills. ??? Chest pain. ??? Difficulty breathing. Summary ??? After the procedure, it is common to have pain, soreness, swelling, or bruising near your incision. ??? If you were prescribed an antibiotic medicine, take it as told by your health care provider. Do not stop taking the antibiotic even if you start to feel better. ??? Do not drive for 24 hours if you were given a sedative during your procedure. ??? Return to your normal activities as told by your health care provider. Ask your health care provider what activities are safe for you. This information is not intended to replace advice given to you by your health care provider. Make sure you discuss any questions you have with your health care provider. Document Revised: 11/03/2018 Document Reviewed: 11/03/2018 [employer] Patient Education ?? 2020 [employer] Follow Up [facility]01/21/2021 12:01:44With:Carrie Fransk MD, Med - Oncology, OB - Gynecology / Oncology Address: [facility] [address] [place] [phone] When:As scheduled
--- OUTSIDE RECORDS SUMMARY | 2022-07-28 13:37 | XMS_ITS | Continuity of Care Document ---
:1940 Author Organization [facility] Address [address] [place] [address]- Care Team Providers Name Role Phone Carol Ruff MD Primary Care Physician Encounter ABEL_DWIGHT [id number] Date(s): 01/29/21 - 01/29/21 [facility] [address] [place] [address]- [facility] Discharge Disposition: Home/self care Attending Physician: Carrie [...] vein(Confirmed) 1right sided weakness- uses walker to [id number] WEAKNESS RIGHT SIDE, USES WALKER, MEMORY DEFICITS,3This problem was added by Discern Expert for Lab confirmed ESBL. PER POLICY, CONSULT YOUR INFECTION CONTROL PRACTITIONER IF YOU FEEL THIS CONDITION SHOULD BE MARKED [id number] CELL AND SQUAMOUS REMOVED5 TREATED WITH CHEMO.6FINGERS AND TOES FROM [id number] Procedures Procedure Date Related Diagnosis Body Site Status ivc filter 11/14/19 Completed Bladder operation1 10/1990 Completed BLEPHROPLASTY Completed Carcinoma2 Completed CATARACTS REMOVED Completed Hysterectomy Completed Knee replacement3 Completed Plantar fascia4 Completed PORTACATH LEFT CHEST Complet ed Rectal fistula Completed Sclerotherapy of varicose vein5 Completed 1BLADDER [id number] SKIN CANCERS [id number] yrdw4Eouwovsgr Results Laboratory List Name Date Basic Metabolic [...] 0.4 thousand/uL *L* (01/29/21 8:31 AM) ABS [place] [0.0-1.6 thousand/uL] 0.4 thousand/uL (01/29/21 8:31 AM) [...] 1 Unknown BONNIE: No Information Assigning Authority: [facility] Hospital Discharge Instructions Patient Lndkdxnfg34/28/2021 12:36:09MSJ Sedation or Anesthesia, Aftercare, Adult, Surgical [...] these instructions at home: Medicines ??? Take lekt-adg-jvphmax and prescription medicines only as told by [...] soap and waterare not available, use hand mechanic foreman. ??? Change your dressing as told by [...] provider. Document Revised: 11/03/2018 Document Reviewed: 11/03/2018 [employer] Patient Education ?? 2020 [employer] Follow Up [facility]01/21/2021 12:01:44With:Carrie Franks MD, Med - Oncology, OB - Gynecology / Oncology Address: [facility] [address] [place] [phone] When:As scheduled
--- OUTSIDE RECORDS SUMMARY | 2022-07-28 13:37 | XMS_ITS | Continuity of Care Document ---
:[address] 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 Discharge Disposition: Routine discharge Attending Physician: Js Monet MD Admitting Physician: Js Monet MD Referring Physician: Js Monet MD Allergies, Adverse Reactions, Alerts No Known Allergies Assessment and Plan Future Scheduled TestsRadiologyXR L Spine 2-3 Views 11/09/19XR Wrist 2 Views Lt 11/21/19IR IVC Filter Placement Percutaneous 11/11/19 Medications aspirin 81 mg, PO, qAM, Refills: 0, Maintenance Start Date: 05/28/20 Status: Orderedatorvastatin 20 mg, PO, qHS, Refills: 0, Maintenance Start Date: 05/28/20 Status: OrderedCalcium 600 +D Tab 1 Tab Tab, PO, TID, 0, Maintenance Start Date: 10/25/19 Status: Orderedcarvedilol 6.25 mg, PO, BID, Refills: 0, Maintenance [...] vein(Confirmed) 1right sided weakness- uses walker to [id number] WEAKNESS RIGHT SIDE, USES WALKER, MEMORY DEFICITS,3This problem was added by Discern Expert for Lab confirmed ESBL. PER POLICY, CONSULT YOUR INFECTION CONTROL PRACTITIONER IF YOU FEEL THIS CONDITION SHOULD BE MARKED [id number] CELL AND SQUAMOUS REMOVED5 TREATED WITH CHEMO.6FINGERS AND TOES FROM [id number] Procedures Procedure Date Related Diagnosis Body Site Status ivc filter 11/14/19 Completed Bladder operation1 10/1990 Completed BLEPHROPLASTY Completed Carcinoma2 Completed CATARACTS REMOVED Completed Hysterectomy Completed Knee replacement3 Completed Plantar fascia4 Completed PORTACATH LEFT CHEST Complet ed Rectal fistula Completed Sclerotherapy of varicose vein5 Completed 1BLADDER [id number] SKIN CANCERS [id number] upxl4Diibdhkjx Social History Social History Type Response Smoking Status Former smoker, quit more tarik n 30 days ago; Number of years: 8; entered on: 05/31/20 Sex Medical Equipment Implanted Date:11/14/19 Target Site:Unknown Description Quantity MRI Company Model IVC Filter 1 Unknown BONNIE: No Information Assigning Authority: FDA
--- OUTSIDE RECORDS SUMMARY | 2022-07-28 13:37 | XMS_ITS | Continuity of Care Document ---
:1940 Author Organization [facility] nter Address [address] [place] [address]- Care Team Providers Name Role Phone Carol Ruff MD Primary Care Physician Encounter EVSA_FIN [id number] Date(s): 01/01/22 - 01/01/[address] [facility] [address] [place], [place] [address] [phone] Encounter Diagnosis PAD (peripheral artery disease) (Discharge Diagnosis) - 01/01/22 Discharge Disposition: Home/self care Attending Physician: Jg Frye MD Allergies, Adverse Reactions, Alerts No Known Allergies Medications aspirin 81 mg, PO, Daily, Refills: 0, Maintenance Start Date: 05/28/20 Status: Orderedatorvastatin 20 mg, PO, Daily, Refills: 0, Maintenance Start Date: 12/04/21 Status: [id number] Vitamin Supplement 500 mcg, PO, Daily, Refills: 0, Maintenance Start Date: 12/31/21 Status: OrderedCalcium 600 +D Tab 1 Tab Tab, PO, TID, Refills: 0, Maintenance Start Date: 10/25/19 Status: OrderedCentrum Silver Women's oral tablet 1 Tab, PO, Daily, Refills: 0, Maintenance Start Date: 05/28/20 Status: Ordereddocusate sodium 100 mg, PO, Daily, PRN, as needed for constipation, Refills: 0, Maintenance Start Date: 12/31/21 Status: OrderedLynparza 150 mg oral tablet 300 mg, PO, BID, Refills: 0, Maintenance Start Date: 12/31/21 Status: Orderedmidodrine 2.5 mg, PO, BID, Refills: 0, Maintenance Start Date: 12/04/21 Status: Orderedsaccharomyces boulardii 250 mg, PO, BID, Refills: 0, Maintenance Start Date: 12/31/21 Status: OrderedVitamin D3 125 mcg, PO, Daily, Refills: 0, Maintenance Start Date: 12/31/21 Status: Orderedwarfarin 10 mg, PO, Daily, Refills: 0, DAILY EXCEPT WEDNESDAY, Maintenance Start Date: 05/28/20 Status: Ordered Problem List Condition Effective Dates Status Health Status Informant ASD (atrial septal Active defect)(Confirmed) Stroke(Confirmed)1 Active CAD (coronary artery Active disease)(Confirmed) Depression(Confirmed) Active Carotid artery disease(Confirmed) Active Acute embolic stroke(Confirmed)2 Resolved ESBL(Confirmed)3 12/15/19 Active Shingles(Confirmed) Resolved Hyperlipidemia(Confirmed) Active HTN (hypertension)(Confirmed) Active Hypotension(Confirmed) Active Skin cancer(Confirmed)4 Active Ovarian cancer(Confirmed)5 Active Non-ST elevation SD Active (NSTEMI)(Confirmed) Neuropathy(Confirmed)6 Active PAD (peripheral artery Active disease)(Confirmed) Elevated troponin(Confirmed) Resolved 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 PER POLICY, CONSULT YOUR INFECTION CONTROL PRACTITIONER IF YOU FEEL THIS CONDITION SHOULD BE MARKED [id number] CELL AND SQUAMOUS REMOVED5 TREATED WITH CHEMO.6FINGERS AND TOES FROM [id number] Procedures Procedure Date Related Diagnosis Body Site Status ivc filter 11/14/19 Completed Bladder operation1 10/1990 Completed BLEPHROPLASTY Completed Carcinoma2 Completed CATARACTS REMOVED Completed Hysterectomy Completed Knee replacement3 Completed Plantar fascia4 Completed PORTACATH LEFT CHEST Complet ed Rectal fistula Completed Sclerotherapy of varicose vein5 Completed 1BLADDER [id number] SKIN CANCERS [id number] Results Laboratory List Name Date Activated Clot Time iSTAT (POCT) 01/01/22 Activated Clot Time iSTAT (POCT) 01/01/22 Basic Metabolic Panel (BMP (Lytes, Glucose, Bun, Creat , & CA)) 01/01/22 CBC w/Diff* (man diff if indicated) 01/01/22 PT (PT (includes INR)) 01/01/22 PTT 01/01/22 Coronavirus Surveillance/Non-PUI COVID19 12/30/21 Most recent to oldest [Reference Range]: 1 2 CBC Scan Auto Diff (01/01/22 7:30 AM) Lymphs [10.0-55.0 %] 14.4 % (01/01/22 7:30 AM) Monos. [0.0-15.0 %] 10.8 % (01/01/22 7:30 AM) Baso. [0.0-3.0 %] 2.2 % (01/01/22 7:30 AM) Neuts [35.0-80.0 %] 70.8 % (01/01/22 7:30 AM) Eos. [0.0-9.0 %] 1.8 % (01/01/22 7:30 AM) Glucose Level [70-99 mg/dL] 99 mg/dL (01/01/22 7:30 AM) ABS Neut [1.7-8.6 thousand/uL] 2.3 thousand/uL (01/01/22 7:30 AM) Activated Clot Time iSTAT (POCT) [74-137 sec] 202 sec 1 <50 sec 2 *H* *L* (01/01/22 10:04 AM) (01/01/22 9:53 AM) eGFR Non- Am >60 mL/min/1.73m2 *NA* (01/01/22 7:30 AM) eGFR Afr/Amer >60 mL/min/1.73m2 *NA* (01/01/22 7:30 AM) COVID19 Source Nasal *NA* (12/30/21 10:41 AM) COVID19/SARS-CoV-2 PCR Result [Negative] Negative *NA* (12/30/21 10:41 AM) ABS Baso [0.0-0.3 thousand/uL] 0.1 thousand/uL (01/01/22 7:30 AM) ABS Eos [0.0-1.0 thousand/uL] 0.1 thousand/uL (01/01/22 7:30 AM) ABS Lymph [0.5-5.9 thousand/uL] 0.5 thousand/uL (01/01/22 7:30 AM) ABS Towns [0.0-1.6 thousand/uL] 0.4 thousand/uL (01/01/22 7:30 AM) Anion Gap [5-15] 15 (01/01/22 7:30 AM) BUN [10-20 mg/dL] 12 mg/dL (01/01/22 7:30 AM) Chloride [98-107 mmol/L] 102 mmol/L (01/01/22 7:30 AM) CO2 [23-31 mmol/L] 24 mmol/L (01/01/22 7:30 AM) Creatinine [0.57-1.11 mg/dL] 0.77 mg/dL (01/01/22 7:30 AM) Hct [37.0-47.0 %] 27.4 % *L* (01/01/22 7:30 AM) Hgb [11.5-16.0 gm/dL] 9.4 gm/dL *L* (01/01/22 7:30 AM) INR 1.00 *NA* (01/01/22 7:30 AM) MCH [27.0-34.0 pg] 39.0 pg *H* (01/01/22 7:30 AM) MCHC [32.0-37.0 gm/dL] 34.2 gm/dL (01/01/22 7:30 AM) MCV [80.0-100.0 fL] 114.0 fL *H* (01/01/22 7:30 AM) Plt [130-400 thousand/uL] 288 thousand/uL (01/01/22 7:30 AM) PT [10.0-12.3 sec] 11.5 sec (01/01/22 7:30 AM) PTT [25.5-36.0 sec] 36.0 sec (01/01/22 7:30 AM) RBC [4.00-5.40 million/uL] 2.40 million/uL *L* (01/01/22 7:30 AM) RDW [11.5-16.0 %] 23.4 % *H* (01/01/22 7:30 AM) Sodium [134-144 mmol/L] 137 mmol/L (01/01/22 7:30 AM) WBC [4.8-10.8 thousand/uL] 3.3 thousand/uL *L* (01/01/22 7:30 AM) Potassium [3.5-5.1 mmol/L] 3.7 mmol/L (01/01/22 7:30 AM) Calcium [8.4-10.2 mg/dL] 9.2 mg/dL (01/01/22 7:30 AM) 1Result Comment: Supervisor/Port Director: [id number] SJ KEENE2Result Comment: Supervisor/Port Director: [id number] SJ KEENE Vital Signs Most recent to 1 2 3 4 5 6 7 8 9 10 oldest [Reference Range]: Temperature PO 36.5 deg C 36.5 deg C 36.6 deg C [36-37.5 deg (01/01/22 1:17 PM) (01/01/22 12:28 PM) (01/01/22 7:38 AM) C] Heart Rate 72 bpm 86 bpm 68 bpm 80 bpm 68 bpm 68 bpm 68 bpm 66 bpm 68 bpm 70 bpm [51-119 bpm] (01/01/22 1:17 PM) (01/01/22 12:47 PM) (01/01/22 12:28 PM ) (01/01/22 11:58 AM) (01/01/22 11:28 AM) (01/01/22 11:13 AM) (01/01/22 10:59 AM) ( 2 10:44 AM) (01/01/22 10:28 AM) (01/01/22 7:38 AM) Blood Pressure 98/51 mm Hg 99/53 mm Hg 98/50 mm Hg 90/50 mm Hg 99/63 m m Hg 110/56 mm Hg 115/61 mm Hg 108/58 mm Hg 111/59 mm Hg 110/59 mm Hg [91-139/51-89 (01/01/22 1:17 PM) (01/01/22 12:47 PM) (01/01/22 12:28 PM) *L* (01/01/22 11:28 AM) (01/01/22 11:13 AM) (01/01/22 10:59 AM) (01/01/22 10:44 AM) (01/01/22 10:28 AM) (01/01/22 7:38 AM) mm Hg] (01/01/22 11:58 AM) Resp Rate 20 Breaths/Min 20 Breaths/Min 15 Breaths/Min 20 Breaths/Mi n 17 Breaths/Min 18 Breaths/Min 18 Breaths/Min 20 Breaths/Min 18 Breaths/Min 18 Breaths/Min (Monitor) (01/01/22 1:17 PM) (01/01/22 12:47 PM) (01/01/22 12:28 PM ) (01/01/22 11:58 AM) (01/01/22 11:28 AM) (01/01/22 11:13 AM) (01/01/22 10:59 AM) (01/01/22 1 0:44 AM) (01/01/22 10:28 AM) (01/01/22 7:38 AM) [13-20 Breaths/Min] Oxygen Method Room air Room air Room air Room air Room air Room air Room air Room air Room air Room air (01/01/22 1:17 PM) (01/01/22 12:47 PM) (01/01/22 12:28 PM) ( 11:58 AM) (01/01/22 11:28 AM) (01/01/22 11:13 AM) (01/01/22 10:59 AM) (01/01/22 10:44 AM) (01/01/22 10:28 AM) (01/01/22 7:38 AM) Glucose Level 99 mg/dL [70-99 mg/dL] (01/01/22 7:30 AM) Height 165.1 cm (01/01/22 7:27 AM) Drug Calc 58.05 kg Weight (kg) (01/01/22 7:27 AM) Weight Method Stated (01/01/22 7:27 AM) BMI 21.3 kg/m2 (01/01/22 7:27 AM) Sensory None Deficits (01/01/22 7:27 AM) Bed alarm on Yes Yes (01/01/22 12:40 PM) (01/01/22 10:28 AM) Social History Social History Type Response Smoking Status Former smoker, quit more tarik n 30 days ago1 entered on: 01/01/22 Sex [id number]'s Medical Equipment Implanted Date:11/14/19 Target Site:Unknown Description Quantity MRI Company Model IVC Filter 1 Unknown BONNIE: No Information Assigning Authority: [facility] Hospital Discharge Instructions Patient Sowcjbppk74/31/2022 11:43:53Moderate Conscious Sedation, Adult, Care AfterModerate Conscious Sedation, Adult, Care After This sheet gives you information about how to care for yourself after your procedure. Your health care provider may also give you more specific instructions. If you have problems or questions, contact your health care provider. What can I expect after the procedure? After the procedure, it is common to have: ??? Sleepiness for several hours. ??? Impaired judgment for several hours. ??? Difficulty with balance. ??? Vomiting if you eat too soon. Follow these instructions at home: For the time period you were told by your health care provider: ??? Rest. ??? Do not participate in activities where you could fall or become injured. ??? Do not drive or use machinery. ??? Do not drink alcohol. ??? Do not take sleeping pills or medicines that cause drowsiness. ??? Do not make important decisions or sign legal documents. ??? Do not take care of children on your own. Eating and drinking ??? Follow the diet recommended by your health care provider. ??? Drink enough fluid to keep your urine pale yellow. ??? If you vomit: ??? Drink water, juice, or soup when you can drink without vomiting. ??? Make sure you have little or no nausea before eating solid foods. General instructions ??? Take lerv-mee-okrkpph and prescription medicines only as told by your health care provider. ??? Have a responsible adult stay with you for the time you are told. It is important to have someone help care for you until you are awake and alert. ??? Do not smoke. ??? Keep all follow-up visits as told by your health care provider. This is important. Contact a health care provider if: ??? You are still sleepy or having trouble with balance after 24 hours. ??? You feel light-headed. ??? You keep feeling nauseous or you keep vomiting. ??? You develop a rash. ??? You have a fever. ??? You have redness or swelling around the IV site. Get help right away if: ??? You have trouble breathing. ??? You have new-onset confusion at home. Summary ??? After the procedure, it is common to feel sleepy, have impaired judgment, or feel nauseous if you eat too soon. ??? Rest after you get home. Know the things you should not do after the procedure. ??? Follow the diet recommended by your health care provider and drink enough fluid to keep your urine pale yellow. ??? Get help right away if you have trouble breathing or new-onset confusion at home. This information is not intended to replace advice given to you by your health care provider. Make sure you discuss any questions you have with your health care provider. Document Revised: 01/17/2021 Document Reviewed: 08/15/2020 Elsevier Patient Education ?? 2020 [employer] 01/01/2022 11:43:53EV (Eng) SMC (Suture Medicated Closure) PERCLOSE (Custom) [address] [address] [place] [address] SMC (Suture Medicated Closure) PERCLOSE SMC (Suture Medicated Closure) is a procedure which prevents bleeding from the groin immediately following catheterization procedure. The SMC Device places a surgical stitch in the artery to reliably stop arterial bleeding. After your Procedure: Please talk to your doctor about limitations in your activities and how to take care of your groin area after your procedure. Here are some general guidelines after you leave the hospital: ??? Inspect the site and re-apply a clean, dry band-aid every day for 5 days or until a scab has formed at the site. ??? Keep the site clean and dry. If the bandage becomes wet, remove it and replace it with a new one. ??? You may shower 24 hours after the procedure, but do not bathe or use a pool until the wound has completely closed (at least 5 days). Gently clean your puncture site with soap and water. ??? After showering, gently pat-dry the site with a clean towel, then let the site air-dry before covering with a band-aid. A square adhesive bandage seals well. ??? Limit tight fitting clothes or underwear that may irritate the puncture site until the site has healed. ??? No driving on the day of discharge. ??? You may resume normal activity in 2 days: NO heavy lifting (more than 10 pounds) for a week. NO pushing NO vigorous activity NORMAL OBSERVATIONS: ??? mild oozing from the incision site ??? discomfort or soreness lasting 1 week ??? some bruising lasting 2 weeks ??? a small lump in your groin area lasting up to 6 weeks Please contact your doctor immediately if you experience any of the following signs and symptoms: ??? Persistent tenderness or swelling at the puncture site ??? Significant pain at the puncture site or leg ??? Bleeding/oozing at the puncture site ??? Increasing redness, warmth, bruising or swelling at the puncture site ??? Numbness or tingling in the leg ??? Drainage from the puncture site ??? Non-healing wound ??? Fever or chills ??? Any other unusual symptoms 01/01/2022 11:43:53AngiogramAngiogram An angiogram is a procedure used to examine the blood vessels. In this procedure, contrast dye is injected through a long, thin tube (catheter) into an artery. X-rays are then taken, which show if there is a blockage or problem in a blood vessel. The catheter may be inserted in: ??? The groin area. This is the most common. ??? The fold of the arm, near the elbow. ??? The wrist. Tell a health care provider about: ??? Any allergies you have, including allergies to medicines, shellfish, contrast dye, or iodine. ??? All medicines you are taking, including vitamins, herbs, eye drops, creams, and emtb-zon-tbrkinvgvflwoofl. ??? Any problems you or family members have had with anesthetic medicines. ??? Any blood disorders you have. ??? Any surgeries you have had. ??? Any medical conditions you have or have had, including any kidney problems or kidney failure. ??? Whether you are or may be . ??? Whether you are . What are the risks? Generally, this is a safe procedure. However, problems may occur, including: ??? Infection. ??? Bleeding and bruising. ??? Allergic reactions to medicines or dyes, including the contrast dye used. ??? Damage to nearby structures or organs, including damage to blood vessels and kidney damage from the contrast dye. ??? Blood clots that can lead to a stroke or heart attack. What happens before the procedure? Staying hydrated [...] procedure ??? stop eating heavy meals or foods, such as meat, fried foods, orfatty foods. ??? 6 hours before the procedure ??? stop eating light meals or foods, such as toast or cereal. ??? 2 hours before the procedure ??? stop drinking clear liquids. Medicines Ask your health care provider about: ??? Changing or stopping your regular medicines. This is especially important if you are taking diabetes medicines or blood thinners. ??? Taking medicines such as aspirin and ibuprofen. These medicines can thin your blood. Do not takethese medicines unless your health care provider tells you to take them. ??? Taking dxof-fbe-jpbecqt medicines, vitamins, herbs, and supplements. Surgery safety Ask your health care provider: ??? How your insertion site will be marked. ??? What steps will be taken to help prevent infection. These may include: ??? Removing hair at the insertion site. ??? Washing skin with a germ-killing soap. ??? Taking antibiotic medicine. General instructions ??? Do not use any products that contain nicotine or tobacco for at least 4 weeks before the procedure. These products include cigarettes, e-cigarettes, and chewing tobacco. If you need help quitting, ask your health care provider. ??? You may have blood samples taken. ??? Plan to have someone take you home from the hospital or clinic. ??? If you will be going home right after the procedure, plan to have someone with you for 24 hours. What happens during the procedure? You will lie on your back on an X-ray table. You may be strapped to the table if it is tilted. ??? An IV will be inserted into one of your veins. ??? Electrodes may be placed on your chest to monitor your heart rate during the procedure. ??? You will be given one or both of the following: ??? A medicine to help you relax (sedative). ??? A medicine to numb the area where the catheter will be inserted (local anesthetic). ??? A small incision will be made for catheter insertion. ??? The catheter will be inserted into an artery using a guide wire. An X-ray procedure (fluoroscopy) will be used to help guide the catheter to the blood vessel to be examined. ??? A contrast dye will then be injected into the catheter, and X-rays will be taken. The contrast will help to show where any narrowing or blockages are located in the blood vessels. You may feel flushed as the contrast dye is injected. ??? Tell your health care provider if you develop chest pain or trouble breathing. ??? After the fluoroscopy is complete, the catheter will be removed. ??? A bandage (dressing) will be placed over the site where the catheter was inserted. Pressure willbe applied to help stop any bleeding. ??? The IV will be removed. The procedure may vary among health care providers and hospitals. What happens after the procedure? Your blood pressure, heart rate, breathing rate, and blood oxygen level will be monitored until you leave the hospital or clinic. ??? You will be kept in bed lying flat for 6 hours. If the catheter was inserted through your leg, you will be instructed not to bend or cross your legs. ??? The insertion area and the pulse in your feet or wrist will be checked frequently. ??? You will be instructed to drink plenty of fluids. This will help wash the contrast dye out of your body. ??? You may have more blood tests and X-rays. You may also have a test that records the electrical activity of your heart (electrocardiogram, or ECG). ??? Do not drive for 24 hours if you were given a sedative during your procedure. ??? It is up to you to get the results of your procedure. Ask your health care provider, or the department that is doing the procedure, when your results will be ready. Summary ??? An angiogram is a procedure used to examine the blood vessels. ??? Before the procedure, follow your health care provider's instructions about eating and drinking restrictions. You may be asked to stop eating and drinking several hours before the procedure. ??? During the procedure, contrast dye is injected through a thin tube (catheter) into an artery. X-rays are then taken. ??? After the procedure, you will need to drink plenty of fluids and lie flat for 6 hour. This information is not intended to replace advice given to you by your health care provider. Make sure you discuss any questions you have with your health care provider. Document Revised: 04/03/2020 Document Reviewed: 04/03/2020 [employer] Patient Education ?? 2020 [employer] 12/31/2021 07:56:43EV [facility] (Eng) Admission Orientation (CUSTOM)[facility] [address] [place] [address] Admission Orientation Welcome to [facility]. You are a very important part [...] must dial ?? 0??? for the hospital glue mill operator to assist you. TELEVISION The TV [...] care or safety, please speak to the shipfitter helper or Ironworker Apprentice. ??? If they are unable to resolve your concern/complaint, you can call the Customer Communication line at [phone]. ??? If your concerns are not satisfactorily resolved through the hospital, you may contact the [facility] or the Department of Health Services: ?? The Joint Commission: Call or email: [email or web address] ?? [place] Dept of Health Services: [address] [place] [address] Website: https://rafi.[facility].gov/ls/online_complaint/MEDComplaint.aspx FAMILY RAPID RESPONSE is a lifeline to immediate help when a patient or loved one feels the patient???s condition has worsened and immediate medical attention is needed. Dial [phone] from any hospital phone. PREVENTING INFECTION Five [...] them with alcohol-based hand sanitizers. Rub the spacecraft systems engineer all over your hands, especially under your [...] medicine and it is not working At [facility], we will work with you and [...] rate ??? Shortness of breath FROM THE POLICE COMMUNICATIONS DISPATCHER Spiritual Care Services providing emotional and spiritual support At [facility], we are committed to providing comprehensive care [...] advanced health care planning To contact a jinriksha driver, ask your nurse to call Spiritual Care Services Department: Gum Machine Filler: [phone] Director: [phone] We???re here to support your tracie, beliefs [...] to have a stroke. ??? Sex: and [place] men have a higher risk. ??? Prior [...] agencies for smoking-cessation information or classes: ??? [facility] Tobacco Use Prevention Program- Telephone number: [phone] ??? [place] Smokers' Helpline:[phone] or access via website: WWW.[employer].Frogmetrics ??? [place] [employer] Telephone number: [phone] ??? [place] [employer] Follow Up [facility]12/16/2021 13:15:41With:Jg Frye MD, Card - Interventional Address: [facility] [address] [address]- When:1 to 3 days
--- OUTSIDE RECORDS SUMMARY | 2022-07-28 13:37 | XMS_ITS | Continuity of Care Document ---
:1940 Author Organization [facility] nter Address [address] [place] [address]- Care Team Providers Name Role Phone Carol Ruff MD Primary Care Physician Encounter EVSA_FIN [id number] Date(s): 12/05/21 - 12/05/21 [facility] [address] [place], [place] [address] [phone] Encounter Diagnosis PAD (peripheral artery disease) (Discharge Diagnosis) - 12/05/21 Discharge Disposition: Home/self care Attending Physician: Jg Frye MD Allergies, Adverse Reactions, Alerts No Known Allergies Medications aspirin 81 mg, PO, qAM, Refills: 0, Maintenance Start Date: 05/28/20 Status: Orderedatorvastatin 20 mg, PO, qDay, Refills: 0, Maintenance Start Date: 12/04/21 Status: OrderedCalcium 600 +D Tab 1 Tab Tab, PO, TID, 0, Maintenance Start Date: 10/25/19 Status: OrderedCentrum Silver Women's oral tablet 1 Tab, PO, Daily, Refills: 0, Maintenance Start Date: 05/28/20 Status: OrderedLynparza 100 mg oral tablet 2 Tab Tab, PO, BID, Refills: 0, Maintenance Start Date: 01/29/21 Status: Orderedmidodrine 2.5 mg, PO, Daily, Refills: 0, Maintenance Start Date: 12/04/21 Status: OrderedVitamin B12 50 mcg oral tablet 1 Tab Tab, PO, qAM, Refills: 0, Maintenance Start Date: 10/25/19 Status: OrderedVitamin D3 5,000 Unit oral capsule 1 Cap Cap, PO, qDay, 0, with food, Maintenance Start Date: 10/25/19 Status: Orderedwarfarin 10 mg, PO, Daily, Refills: [...] vein(Confirmed) 1right sided weakness- uses walker to [id number] WEAKNESS RIGHT SIDE, USES WALKER, MEMORY DEFICITS,3This problem was added by Discern Expert for Lab confirmed ESBL. PER POLICY, CONSULT YOUR INFECTION CONTROL PRACTITIONER IF YOU FEEL THIS CONDITION SHOULD BE MARKED [id number] CELL AND SQUAMOUS REMOVED5 TREATED WITH CHEMO.6FINGERS AND TOES FROM [id number] Procedures Procedure Date Related Diagnosis Body Site Status ivc filter 11/14/19 Completed Bladder operation1 10/1990 Completed BLEPHROPLASTY Completed Carcinoma2 Completed CATARACTS REMOVED Completed Hysterectomy Completed Knee replacement3 Completed Plantar fascia4 Completed PORTACATH LEFT CHEST Complet ed Rectal fistula Completed Sclerotherapy of varicose vein5 Completed 1BLADDER [id number] SKIN CANCERS [id number] Results Laboratory List Name Date Activated Clot Time iSTAT (POCT) 12/05/21 Basic Metabolic Panel (BMP (Lytes, Glucose, Bun, Creat , & CA)) 12/05/21 CBC w/Diff* (man diff if indicated) 12/05/21 PT (PT (includes INR)) 12/05/21 PTT 12/05/21 Most recent to oldest [Reference Range]: 1 CBC Scan Auto Diff 1 *NA* (12/05/21 12:55 PM) Lymphs [10.0-55.0 %] 10.9 % (12/05/21 12:55 PM) Monos. [0.0-15.0 %] 16.4 % *H* (12/05/21 12:55 PM) Baso. [0.0-3.0 %] 1.2 % (12/05/21 12:55 PM) Neuts [35.0-80.0 %] 70.4 % (12/05/21 12:55 PM) Eos. [0.0-9.0 %] 1.1 % (12/05/21 12:55 PM) Glucose Level [70-99 mg/dL] 98 mg/dL (12/05/21 12:55 PM) ABS Neut [1.7-8.6 thousand/uL] 2.3 thousand/uL (12/05/21 12:55 PM) Activated Clot Time iSTAT (POCT) [74-137 sec] 225 sec 2 *H* (12/05/21 3:19 PM) eGFR Non- Am >60 mL/min/1.73m2 *NA* (12/05/21 12:55 PM) eGFR Afr/Amer >60 mL/min/1.73m2 *NA* (12/05/21 12:55 PM) ABS Baso [0.0-0.3 thousand/uL] 0.0 thousand/uL (12/05/21 12:55 PM) ABS Eos [0.0-1.0 thousand/uL] 0.0 thousand/uL (12/05/21 12:55 PM) ABS Lymph [0.5-5.9 thousand/uL] 0.4 thousand/uL *L* (12/05/21 12:55 PM) ABS [place] [0.0-1.6 thousand/uL] 0.5 thousand/uL (12/05/21 12:55 PM) Anion Gap [5-15] 14 (12/05/21 12:55 PM) BUN [10-20 mg/dL] 12 mg/dL (12/05/21 12:55 PM) Chloride [98-107 mmol/L] 104 mmol/L (12/05/21 12:55 PM) CO2 [23-31 mmol/L] 24 mmol/L (12/05/21 12:55 PM) Creatinine [0.57-1.11 mg/dL] 0.71 mg/dL (12/05/21 12:55 PM) Hct [37.0-47.0 %] 26.0 % *L* (12/05/21 12:55 PM) Hgb [11.5-16.0 gm/dL] 9.0 gm/dL *L* (12/05/21 12:55 PM) INR 1.08 *NA* (12/05/21 12: PM) MCH [27.0-34.0 pg] 38.9 pg *H* (12/05/21 12:55 PM) MCHC [32.0-37.0 gm/dL] 34.6 gm/dL (12/05/21 12: PM) MCV [80.0-100.0 fL] 112.5 fL *H* (12/05/21 12:55 PM) Plt [130-400 thousand/uL] 291 thousand/uL (12/05/21 12: PM) PT [10.0-12.3 sec] 12.4 sec *H* (12/05/21 12: PM) PTT [25.5-36.0 sec] 30.9 sec (12/05/21 12: PM) RBC [4.00-5.40 million/uL] 2.31 million/uL *L* (12/05/21 12:55 PM) RDW [11.5-16.0 %] 21.2 % *H* (12/05/21 12:55 PM) Sodium [134-144 mmol/L] 138 mmol/L (12/05/21 12:55 PM) WBC [4.8-10.8 thousand/uL] 3.2 thousand/uL *L* (12/05/21 12: PM) Potassium [3.5-5.1 mmol/L] 3.8 mmol/L (12/05/21 12:55 PM) Calcium [8.4-10.2 mg/dL] 9.1 mg/dL (12/05/21 12:55 PM) 1Result Comment: Verified by [id number] Comment: Care Technician: [id number] GISSELLE BRANHAM Vital Signs Most recent to 1 2 3 4 5 6 7 8 9 10 oldest [Reference Range]: Pain Scale Numeric Rating Scale Used (12/05/21 1:06 PM) Heart Rate 76 bpm 74 bpm 76 bpm 72 bpm 76 bpm 70 bpm 76 bpm 72 bpm 68 bpm 74 bpm [51-119 bpm] (12/05/21 8:00 PM) (12/05/21 7:00 PM) (12/05/21 6:00 PM) (12/05/21 5:45 PM) (12/05/21 5:27 PM) (12/05/21 4:57 PM) (12/05/21 4:45 PM) (12/05/21 4:30 PM) (12/05/21 4:27 PM) (12/05/21 4:12 PM) Blood Pressure 99/54 mm Hg 101/54 mm Hg 94/50 mm Hg 95/53 mm Hg 109/51 mm Hg 94/58 mm Hg 96/55 mm Hg 101/53 mm Hg 101/53 mm Hg 108/58 mm Hg [91-139/51-89 (12/05/21 8:00 PM) (12/05/21 7:00 PM) (12/05/21 6:00 PM) ( 5:45 PM) (12/05/21 5:27 PM) (12/05/21 4:57 PM) (12/05/21 4:45 PM) (12/05/21 4:30 PM) (12/05/21 4:27 PM) (12/05/21 4:12 PM) mm Hg] NIBP Mean 70 mm Hg 74 mm Hg 69 mm Hg 71 mm Hg 74 mm Hg 70 mm Hg 73 mm Hg 74 mm Hg 74 mm Hg 80 mm Hg (12/05/21 8:00 PM) (12/05/21 7:00 PM) (12/05/21 6:00 PM) (12/05/21 5:45 PM) (12/05/21 5:27 PM) (12/05/21 4:57 PM) (12/05/21 4:45 PM) (12/05/21 4:30 PM) (12/05/21 4:27 PM) (12/05/21 4:12 PM) Resp Rate 17 Breaths/Min 13 Breaths/Min 18 Breaths/Min 15 Breaths/Mi n 20 Breaths/Min 18 Breaths/Min 14 Breaths/Min 12 Breaths/Min 15 Breaths/Min 14 Breaths/Min (Monitor) (12/05/21 8:00 PM) (12/05/21 7:00 PM) (12/05/21 6:00 PM) (12/05/21 5:45 PM) (12/05/21 5:27 PM) (12/05/21 4:57 PM) (12/05/21 4:45 PM) *L* (12/05/21 4:27 PM) (12/05/21 4:12 PM) [13-20 (12/05/21 4:30 PM) Breaths/Min] SPO2 [92 %] 98 % 97 % 97 % 99 % 98 % 97 % 99 % 98 % 97 % 97 % (12/05/21 8:00 PM) (12/05/21 7:00 PM) (12/05/21 6:00 PM) (12/05/21 5:45 PM) (12/05/21 5:27 PM) (12/05/21 4:57 PM) (12/05/21 4:45 PM) (12/05/21 4:30 PM) (12/05/21 4:27 PM) (12/05/21 4:12 PM) Oxygen Method Room air Room air Room air Room air Room air Room air Room air Room air (12/05/21 7:00 PM) (12/05/21 6:00 PM) (12/05/21 5:45 PM) (12/05/21 4:45 PM) (12/05/21 4:30 PM) (12/05/21 4:15 PM) (12/05/21 4:00 PM) (12/05/21 1:00 PM) Glucose Level 98 mg/dL [70-99 mg/dL] (12/05/21 12:55 PM) Height 165.1 cm (12/05/21 1:06 PM) Drug Calc 58.05 kg Weight (kg) (12/05/21 1:06 PM) Weight Method Stated (12/05/21 1:06 PM) BMI 21.3 kg/m2 (12/05/21 1:06 PM) Sensory None Deficits (12/05/21 1:06 PM) Social History Social History Type Response Smoking Status Former smoker, quit more tarik n 30 days ago; Number of years: 8; entered on: 12/05/21 Sex Medical Equipment Implanted Date:11/14/19 Target Site:Unknown Description Quantity MRI Company Model IVC Filter 1 Unknown BONNIE: No Information Assigning Authority: FDA Hospital Discharge Instructions Patient Poyvftwje13/04/2022 15:31:30EV (Eng) Hemostasis by Angio-Seal (Custom) [facility] [address] [place] [id number] [place] [address] HEMOSTASIS BY ANGIO-SEAL HOME CARE INSTRUCTIONS ??? Do not drive for 24 hours ??? Keep dressing dry. No tub baths. You may take a shower.? Leave small dressing on for the next 24 hours. Tomorrow morning in the shower remove both dressings, wash the area with warm soapy water, pat dry and leave open to air. ??? No heavy lifting for the next 72 hours.? A small amount of bruising is ok, and expected. ??? Read the Angioseal brochure that you received. ??? Carry Angioseal card in your wallet for 60-90 days. ??? If there is any continuous bleeding or swelling at puncture site, apply firm pressure with your hand above the puncture site, and return to the hospital immediately. IF BLEEDING IS PROFUSE, DIAL 911 IMMEDIATELY. You may have a small blood spot (dime to half-dollar size) on your dressing when you leave the hospital, or by the time you get home. This amount is normal. ??? Resume all medications unless otherwise instructed by your Mosaic Tile Maker. If you take Glucophage for diabetes, do not take it for the next 48 hours. If you are concerned about this, please contact your primary care physician. ??? If you have any questions regarding limitations or activities following your procedure please contact your physician. 12/05/2021 15:31:30Femoral Site CareFemoral Site Care This sheet gives you information about how to care for yourself after your procedure. Your health care provider may also give you more specific instructions. If you have problems or questions, contact your health care provider. What can I expect after the procedure? After the procedure, it is common to have: ??? Bruising that usually fades within 1???2 weeks. ??? Tenderness at the site. Follow these instructions at home: Wound care ??? Follow instructions from your health care provider about how to take care of your insertion site. Make sure you: ??? Wash your hands with soap and water before you change your bandage (dressing). If soap and waterare not available, use hand seed mill superintendent. ??? Change your dressing as told by your health care provider. ??? Leave stitches (sutures), skin glue, or adhesive strips in place. These skin closures may need to stay in place for 2 weeks or longer. If adhesive strip edges start to loosen and curl up, you may trim the loose edges. Do not remove adhesive strips completely unless your health care provider tells you to do that. ??? Do not take baths, swim, or use a hot tub until your health care provider approves. ??? You may shower 24-48 hours after the procedure or as told by your health care provider. ??? Gently wash the site with plain soap and water. ??? Pat the area dry with a clean towel. ??? Do not rub the site. This may cause bleeding. ??? Do not apply powder or lotion to the site. Keep the site clean and dry. ??? Check your femoral site every day for signs of infection. Check for: ??? Redness, swelling, or pain. ??? Fluid or blood. ??? Warmth. ??? Pus or a bad smell. Activity ??? For the first 2???3 days after your procedure, or as long as directed: ??? Avoid climbing stairs as much as possible. ??? Do not squat. ??? Do not lift anything that is heavier than 10 lb (4.5 kg), or the limit that you are told, until your health care provider says that it is safe. ??? Rest as directed. ??? Avoid sitting for a long time without moving. Get up to take short walks every 1???2 hours. ??? Do not drive for 24 hours if you were given a medicine to help you relax (sedative). General instructions ??? Take dkzn-ktw-oklegwa and prescription medicines only as told by your health care provider. ??? Keep all follow-up visits as told by your health care provider. This is important. Contact a health care provider if you have: ??? A fever or chills. ??? You have redness, swelling, or pain around your insertion site. Get help right away if: ??? The catheter insertion area swells very fast. ??? You pass out. ??? You suddenly start to sweat or your skin gets clammy. ??? The catheter insertion area is bleeding, and the bleeding does not stop when you hold steady pressure on the area. ??? The area near or just beyond the catheter insertion site becomes pale, cool, tingly, or numb. These symptoms may represent a serious problem that is an emergency. Do not wait to see if the symptoms will go away. Get medical help right away. Call your local emergency services (911 in the [place] Do not drive yourself to the hospital. Summary ??? After the procedure, it is common to have bruising that usually fades within 1???2 weeks. ??? Check your femoral site every day for signs of infection. ??? Do not lift anything that is heavier than 10 lb (4.5 kg), or the limit that you are told, until your health care provider says that it is safe. This information is not intended to replace advice given to you by your health care provider. Make sure you discuss any questions you have with your health care provider. Document Revised: 05/23/2021 Document Reviewed: 05/23/2021 [employer] Patient Education ?? 2020 [employer]. 12/05/2021 15:31:30Moderate Conscious Sedation, Adult, Care AfterModerate Conscious Sedation, [...] eating solid foods. General instructions ??? Take czma-hwp-bbrxdqs and prescription medicines only as told by [...] provider. Document Revised: 01/17/2021 Document Reviewed: 08/15/2020 [employer] Patient Education ?? 2020 [employer]. 12/05/2021 15:31:30Angiogram, Care AfterAngiogram, Care After This sheet gives you information about how to care for yourself after your procedure. Your health care provider may also give you more specific instructions. If you have problems or questions, contact your health care provider. What can I expect after the procedure? After the procedure, it is common to have: ??? Bruising and tenderness at the catheter insertion area. ??? A collection of blood (hematoma) at the insertion area. This may feel like a small lump under the skin at the insertion site. Follow these instructions at home: Insertion site care ??? Follow instructions from your health care provider about how to take care of your insertion site. Make sure you: ??? Wash your hands with soap and water before and after you change your bandage (dressing). If soapand water are not available, use hand seed mill superintendent. ??? Change your dressing as told by your health care provider. ??? Do not take baths, swim, or use a hot tub until your health care provider approves. ??? You may shower 24???48 hours after the procedure, or as told by your health care provider. To clean the insertion site: ??? Gently wash the area with plain soap and water. ??? Pat the area dry with a clean towel. ??? Do not rub the site. This may cause bleeding. ??? Check your insertion site every day for signs of infection. Check for: ??? Redness, swelling, or pain. ??? Fluid or blood. ??? Warmth. ??? Pus or a bad smell. ??? Do not apply powder or lotion to the site. Keep the site clean and dry. Activity ??? Do not drive for 24 hours if you were given a sedative during your procedure. ??? Rest as told by your health care provider, usually for 1???2 days. ??? Do not lift anything that is heavier than 10 lb (4.5 kg), or the limit that you are told, until your health care provider says that it is safe. ??? If the insertion site was in your leg, try to avoid stairs for a few days. ??? Return to your normal activities as told by your health care provider, usually in about a week. Ask your health care provider what activities are safe for you. General instructions ??? If your insertion site starts bleeding, lie flat and put pressure on the site. If the bleeding does not stop, get help right away. This is a medical emergency. ??? Take pnfk-axz-qrryytt and prescription medicines only as told by your health care provider. ??? Drink enough fluid to keep your urine pale yellow. This helps flush the contrast dye from your body. ??? Keep all follow-up visits as told by your health care provider. This is important. Contact a health care provider if: ??? You have a fever or chills. ??? You have redness, swelling, or pain around your insertion site. ??? You have fluid or blood coming from your insertion site. ??? Your insertion site feels warm to the touch. ??? You have pus or a bad smell coming from your insertion site. ??? You have more bruising around the insertion site. Get help right away if you have: ??? A problem with the insertion area, such as: ??? The area swells fast or bleeds even after you apply pressure. ??? The area becomes pale, cool, tingly, or numb. ??? Chest pain. ??? Trouble breathing. ??? A rash. ??? Any symptoms of a stroke. BE FAST is an easy way to remember the main warning signs of a stroke: ??? B - Balance. Signs are dizziness, sudden trouble walking, or loss of balance. ??? E - Eyes. Signs are trouble seeing or a sudden change in vision. ??? F - Face. Signs are sudden weakness or loss of feeling of the face, or the face or eyelid drooping on one side. ??? A - Arms. Signs are weakness or loss of feeling in an arm. This happens suddenly and usually on one side of the body. ??? S - Speech. Signs are sudden trouble speaking, slurred speech, or trouble understanding what people say. ??? T - Time. Time to call emergency services. Write down what time symptoms started. ??? You have other signs of a stroke, such as: ??? A sudden, severe headache with no known cause. ??? Nausea or vomiting. ??? Seizure. These symptoms may represent a serious problem that is an emergency. Do not wait to see if the symptoms will go away. Get medical help right away. Call your local emergency services (911 in the [place] Do not drive yourself to the hospital. Summary ??? It is common to have bruising and tenderness at the catheter insertion area. ??? Do not take baths, swim, or use a hot tub until your health care provider approves. You may shower 24???48 hours after the procedure or as told. ??? It is important to rest and drink plenty of fluids. ??? If the insertion site bleeds, lie flat and put pressure on the site. If the bleeding continues, get help right away. This is a medical emergency. This information is not intended to replace advice given to you by your health care provider. Make sure you discuss any questions you have with your health care provider. Document Revised: 07/24/2020 Document Reviewed: 07/24/2020 [employer] Patient Education ?? 2020 [employer]. 12/04/2021 07:33:18EV [facility] (Eng) Admission Orientation (CUSTOM)[facility] [address] [id number] Admission Orientation Welcome to [facility]. You are a very important part [...] must dial ?? 0??? for the hospital centerless grinder set up operator to assist you. TELEVISION The TV [...] care or safety, please speak to the spring clipper or Plant Operations Coordinator. ??? If they are unable to resolve your concern/complaint, you can call the Customer Communication line at [phone]. ??? If your concerns are not satisfactorily resolved through the hospital, you may contact the [facility] or the Department of Health Services: ?? The PharmMD Commission: Call or email: ?? [place] Dept of Health Services: [address] [place] [address] Website: https://rafi.[employer].gov/ls/online_complaint/MEDComplaint.aspx FAMILY RAPID RESPONSE is a lifeline to immediate help when a patient or loved one feels the patient???s condition has worsened and immediate medical attention is needed. Dial [address] from any hospital phone. PREVENTING INFECTION Five [...] them with alcohol-based hand sanitizers. Rub the seed mill superintendent all over your hands, especially under your [...] medicine and it is not working At [facility], we will work with you and [...] rate ??? Shortness of breath FROM THE [facility] providing emotional and spiritual support At [facility], we are committed to providing comprehensive [...] advanced health care planning To contact a health care attorney, ask your nurse to call Spiritual Care Services Department: Tube Sizer Operator: [phone] Director: [phone] We???re here to support your tracie, beliefs [...] to have a stroke. ??? Sex: and [place] men have a higher risk. ??? Prior [...] agencies for smoking-cessation information or classes: ??? [facility] Tobacco Use Prevention Program- Telephone number: (343)-694-0354 ??? [place] Smokers' Helpline:219.667.2650 or access via website: WWW.[employer].ORG ??? [place] [employer] Telephone number: [phone])-[phone] ??? [place] Follow Up Care11/20/2021 12:45:26With:Jg Frye MD, Card - Interventional Address: [facility] [address] [address]- When:1 to 3 days
--- OUTSIDE RECORDS SUMMARY | 2022-07-28 13:37 | XMS_ITS | Continuity of Care Document ---
:1940 Author Organization [facility] nter Address [address] [place] [address]- Care Team Providers Name Role Phone Carol Ruff MD Primary Care Physician Encounter EVSA_FIN [id number] Date(s): 01/01/22 - 01/01/22 [facility] [address], [place] [address] [phone] Encounter Diagnosis PAD (peripheral artery disease) (Discharge Diagnosis) - 01/01/22 Atherosclerosis of [place] arteries of extremities with rest pain, left leg (Discharge Diagnosis) - Chronic total occlusion of artery of the extremities (Discharge Diagnosis) - Atherosclerotic heart disease of [place] coronary artery without angina pectoris (Discharge Diagnosis) - Old myocardial infarction (Discharge Diagnosis) - Hypotension, unspecified (Discharge Diagnosis) - Hyperlipidemia, unspecified (Discharge Diagnosis) - Personal history of transient ischemic attack (TIA), and cerebral infarction without residual deficits (Discharge Diagnosis) - Personal history of other venous thrombosis and embolism (Discharge Diagnosis) - manager long term care (current) use of anticoagulants (Discharge Diagnosis) - Personal history of nicotine dependence (Discharge Diagnosis) - Contact with and (suspected) exposure to COVID-19 (Discharge Diagnosis) - Discharge Disposition: Home/self care Attending Physician: Jg Frye MD Allergies, Adverse Reactions, Alerts No Known Allergies Medications aspirin 81 mg, PO, Daily, Refills: 0, Maintenance Start Date: 05/28/20 Status: Orderedatorvastatin 20 mg, PO, Daily, Refills: 0, Maintenance Start Date: 12/04/21 Status: [id number] Vitamin Supplement 500 mcg, PO, Daily, Refills: [...] cancer(Confirmed)4 Active Ovarian cancer(Confirmed)5 Active Non-ST elevation HI Active (NSTEMI)(Confirmed) Neuropathy(Confirmed)6 Active PAD (peripheral artery Active disease)(Confirmed) Elevated troponin(Confirmed) Resolved 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 PER POLICY, CONSULT YOUR INFECTION CONTROL PRACTITIONER IF YOU FEEL THIS CONDITION SHOULD BE MARKED [id number] CELL AND SQUAMOUS REMOVED5 TREATED WITH CHEMO.6FINGERS AND TOES FROM [id number] Procedures Procedure Date Related Diagnosis Body Site Status ivc filter 11/14/19 Completed Bladder operation1 10/1990 Completed BLEPHROPLASTY Completed Carcinoma2 Completed CATARACTS REMOVED Completed Hysterectomy Completed Knee replacement3 Completed Plantar fascia4 Completed PORTACATH LEFT CHEST Complet ed Rectal fistula Completed Sclerotherapy of varicose vein5 Completed 1BLADDER [id number] SKIN CANCERS [id number] wrbw6Jgdqeuyfl Results Laboratory List Name Date Activated Clot [...] thousand/uL] 0.5 thousand/uL (01/01/22 7:30 AM) ABS [place] [0.0-1.6 thousand/uL] 0.4 thousand/uL (01/01/22 7:30 AM) [...] 9.2 mg/dL (01/01/22 7:30 AM) 1Result Comment: Manager College: [id number] SJ KEENE2Result Comment: Manager College: [id number] SJ KEENE Vital Signs Most recent to [...] 30 days ago1 entered on: 01/01/22 Sex [id number]'s Medical Equipment Implanted Date:11/14/19 Target Site:Unknown Description Quantity MRI Company Model IVC Filter 1 Unknown BONNIE: No Information Assigning Authority: [facility] Hospital Discharge Instructions Patient Kqzzvnapf58/31/2022 11:43:53Moderate Conscious Sedation, Adult, Care AfterModerate Conscious [...] eating solid foods. General instructions ??? Take ptyz-bcd-mnfvcud and prescription medicines only as told by [...] provider. Document Revised: 01/17/2021 Document Reviewed: 08/15/2020 [employer] Patient Education ?? 2020 Pro Breath MD. 01/01/2022 11:43:53EV (Eng) SMC (Suture Medicated Closure) PERCLOSE (Custom) [address] [address] [place] [address] SMC (Suture Medicated Closure) PERCLOSE [...] including vitamins, herbs, eye drops, creams, and uulk-aha-dybhcjlvhwxrukah. ??? Any problems you or family members [...] tells you to take them. ??? Taking kfyj-rud-tlsfqdt medicines, vitamins, herbs, and supplements. Surgery safety [...] provider. Document Revised: 04/03/2020 Document Reviewed: 04/03/2020 VoiceObjects Patient Education ?? 2020 Pro Breath MD. 12/31/2021 07:56:43EV [facility] (Eng) Admission Orientation (CUSTOM)[facility] [address] [place] [address] Admission Orientation Welcome to [facility]. You are a very important [...] must dial ?? 0??? for the hospital tumbling machine operator to assist you. TELEVISION The [...] care or safety, please speak to the barrel coater or In File Operator. ??? If they are unable to resolve your concern/complaint, you can call the Customer Communication line at [phone]. ??? If your concerns are not satisfactorily resolved through the hospital, you may contact the [facility] or the Department of [facility] Services: ?? The [facility]: Call or email: [email or web address] ?? [place] [facility]: [address], [place] [address] Website: https://rafi.Fieldwire.gov/ls/online_complaint/MEDComplaint.aspx FAMILY RAPID RESPONSE is a lifeline to immediate help when a patient or loved one feels the patient???s condition has worsened and immediate medical attention is needed. Dial [phone] from any hospital phone. PREVENTING INFECTION Five [...] them with alcohol-based hand sanitizers. Rub the surgical rn all over your hands, especially under your [...] medicine and it is not working At [facility], we will work with you [...] rate ??? Shortness of breath FROM THE ENAMEL BUFFER Spiritual Care Services providing emotional and spiritual support At [facility], we are committed to providing comprehensive [...] health care planning To contact a health sciences manager, ask your nurse to call Spiritual Care Services Department: Hydrogen Treater: [phone] Director: [phone] We???re here to support your tracie, beliefs [...] to have a stroke. ??? Sex: and Belgian Iranian men have a higher risk. ??? Prior [...] agencies for smoking-cessation information or classes: ??? [facility] Tobacco Use Prevention Program- Telephone number: [phone])-[phone] ??? [place] Smokers' Helpline:[phone] or access via website: WWW.Frankly.ORG ??? [employer] Telephone number: [phone] ??? [employer] Follow Up [facility]12/16/2021 13:15:41With:Jg Frye MD, Card - Interventional Address: [facility] [address] [address]- When:1 to 3 days
--- OUTSIDE RECORDS SUMMARY | 2022-07-28 13:37 | XMS_ITS | Continuity of Care Document ---
:1940 Author Organization [facility] nter Address [address] [place] [address]- Care Team Providers Name Role Phone Carol Ruff MD Primary Care Physician Encounter EVSA_FIN [id number] Date(s): 12/05/21 - 12/05/21 [facility] [address] [place], [place] [address] [phone] Encounter Diagnosis PAD (peripheral artery disease) (Discharge Diagnosis) - 12/05/21 Atherosclerosis of [place] arteries of extremities with rest pain, bilateral legs (Discharge Diagnosis) - Chronic total occlusion of artery of the extremities (Discharge Diagnosis) - Essential (primary) hypertension (Discharge Diagnosis) - Hyperlipidemia, unspecified (Discharge Diagnosis) - Personal history of transient ischemic attack (TIA), and cerebral infarction without residual deficits (Discharge Diagnosis) - Atherosclerotic heart disease of [place] coronary artery without angina pectoris (Discharge Diagnosis) - FDC (current) use of anticoagulants (Discharge Diagnosis) - Hypotension, unspecified (Discharge Diagnosis) - Personal history of nicotine dependence (Discharge Diagnosis) - Personal history of other venous thrombosis and embolism (Discharge Diagnosis) - Old myocardial infarction (Discharge Diagnosis) - FDC (current) use of aspirin (Discharge Diagnosis) - Discharge Disposition: Home/self care [...] vein(Confirmed) 1right sided weakness- uses walker to [id number] WEAKNESS RIGHT SIDE, USES WALKER, MEMORY DEFICITS,3This problem was added by Discern Expert for Lab confirmed ESBL. PER POLICY, CONSULT YOUR INFECTION CONTROL PRACTITIONER IF YOU FEEL THIS CONDITION SHOULD BE MARKED [id number] CELL AND SQUAMOUS REMOVED5 TREATED WITH CHEMO.6FINGERS AND TOES FROM [id number] Procedures Procedure Date Related Diagnosis Body Site Status ivc filter 11/14/19 Completed Bladder operation1 10/1990 Completed BLEPHROPLASTY Completed Carcinoma2 Completed CATARACTS REMOVED Completed Hysterectomy Completed Knee replacement3 Completed Plantar fascia4 Completed PORTACATH LEFT CHEST Complet ed Rectal fistula Completed Sclerotherapy of varicose vein5 Completed 1BLADDER [id number] SKIN CANCERS [id number] nfzn8Syoxkyhll Results Laboratory List Name Date Activated Clot [...] 0.4 thousand/uL *L* (12/05/21 12:55 PM) ABS [place] [0.0-1.6 thousand/uL] 0.5 thousand/uL (12/05/21 12:55 PM) Anion Gap [5-15] 14 (12/05/21 12:55 PM) BUN [10-20 mg/dL] 12 mg/dL (12/05/21 12 PM) Chloride [98-107 mmol/L] 104 mmol/L (12/05/21 12 PM) CO2 [23-31 mmol/L] 24 mmol/L (12/05/21 PM) Creatinine [0.57-1.11 mg/dL] 0.71 mg/dL (12/05/21 PM) Hct [37.0-47.0 %] 26.0 % *L* (12/05/21 PM) Hgb [11.5-16.0 gm/dL] 9.0 gm/dL *L* (12/05/21 PM) INR 1.08 *NA* (12/05/21 PM) MCH [27.0-34.0 pg] 38.9 pg *H* (12/05/21 PM) MCHC [32.0-37.0 gm/dL] 34.6 gm/dL (12/05/21: PM) MCV [80.0-100.0 fL] 112.5 fL *H* (12/05/21 PM) Plt [130-400 thousand/uL] 291 thousand/uL (12/05/21: PM) PT [10.0-12.3 sec] 12.4 sec *H* (12/05/21 PM) PTT [25.5-36.0 sec] 30.9 sec (12/05/21: PM) RBC [4.00-5.40 million/uL] 2.31 million/uL *L* (12/05/21 PM) RDW [11.5-16.0 %] 21.2 % *H* (12/05/21 PM) Sodium [134-144 mmol/L] 138 mmol/L (12/05/21: PM) WBC [4.8-10.8 thousand/uL] 3.2 thousand/uL *L* (12/05/21 PM) Potassium [3.5-5.1 mmol/L] 3.8 mmol/L (12/05/21 12:55 PM) Calcium [8.4-10.2 mg/dL] 9.1 mg/dL (12/05/21 12:55 PM) 1Result Comment: Verified by [id number] Comment: Horseshoer: [id number] GISSELLE BRANHAM Vital Signs Most recent to [...] 1 Unknown BONNIE: No Information Assigning Authority: [facility] Hospital Discharge Instructions Patient Hzugtyldc77/04/2022 15:31:30EV (Eng) Hemostasis by Angio-Seal (Custom) [facility] [place] [address] [place] [address] [place] [address] HEMOSTASIS BY ANGIO-SEAL HOME CARE [...] all medications unless otherwise instructed by your Stage Setting Painter Apprentice. If you take Glucophage for diabetes, do [...] soap and waterare not available, use hand sterile instrument technician. ??? Change your dressing as told by [...] you relax (sedative). General instructions ??? Take knar-bhs-dwqnltn and prescription medicines only as told by [...] provider. Document Revised: 05/23/2021 Document Reviewed: 05/23/2021 [employer] Patient Education ?? 2020 [employer]. 12/05/2021 15:31:30Moderate Conscious Sedation, Adult, Care AfterModerate [...] eating solid foods. General instructions ??? Take drfs-tdc-vtfobia and prescription medicines only as told by [...] provider. Document Revised: 01/17/2021 Document Reviewed: 08/15/2020 [employer]InVivioLink Patient Education ?? 2020 [employer]. 12/05/2021 15:31:30Angiogram, Care AfterAngiogram, Care After This [...] soapand water are not available, use hand sterile instrument technician. ??? Change your dressing as told by [...] This is a medical emergency. ??? Take mgaw-zrt-foagdbb and prescription medicines only as told by [...] provider. Document Revised: 07/24/2020 Document Reviewed: 07/24/2020 [employer]InVivioLink Patient Education ?? 2020 [employer]. 12/04/2021 07:33:18EV [facility] (Eng) Admission Orientation (CUSTOM)[facility] [address] [place], [place] [id number] Admission Orientation [facility] [...] must dial ?? 0??? for the hospital substation operator transforming to assist you. TELEVISION The TV controls [...] care or safety, please speak to the tour agent or Residential Solar Consultant. ??? If they are unable to resolve your concern/complaint, you can call the Customer Communication line at [phone]. ??? If your concerns are not satisfactorily resolved through the hospital, you may contact the [facility] or the Department of [facility] Services: ?? The [facility]: Call or email: [email or web address] ?? [place] Dept of Health Services: [address] [place] [address] Website: https://rafi.Attivio.gov/ls/online_complaint/MEDComplaint.aspx FAMILY RAPID RESPONSE is a lifeline to immediate help when a patient or loved one feels the patient???s condition has worsened and immediate medical attention is needed. Dial [phone] from any hospital phone. PREVENTING INFECTION Five [...] them with alcohol-based hand sanitizers. Rub the sterile instrument technician all over your hands, especially under your [...] rate ??? Shortness of breath FROM THE FIELD RECORDER Spiritual Care Services providing emotional and spiritual support At [facility], we are committed to providing [...] advanced health care planning To contact a auto mechanic apprentice, ask your nurse to call Spiritual Care Services Department: Private Branch Exchange Operator: [phone] Director: [phone] We???re here to support your tracie, beliefs [...] to have a stroke. ??? Sex: and British Pakistani men have a higher risk. ??? Prior [...] agencies for smoking-cessation information or classes: ??? [facility] Tobacco Use Prevention Program- Telephone number: (318)-[phone] ??? [place] Smokers' Helpline:[phone] or access via website: WWW.GreenBytes.ORG ??? [employer] Telephone number: ([phone])-[phone] ??? [employer] Cancer [employer] Follow Up Care11/20/2021 12:45:26With:Jg Frye MD, Card - Interventional Address: [facility] [address] [address]- When:1 to 3 days
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
--- OUTSIDE RECORDS SUMMARY | 2022-07-28 13:38 | XMS_ITS | Continuity of Care Document ---
:1940 Author Organization [facility] Address [address] [place] [address]- Care Team Providers Name Role Phone PCP, Unknown Primary Care Physician Unavailable [id number] Date(s): 06/18/20 - 06/18/20 [facility] [address] [place] [address] [facility] Allergies, Adverse Reactions, Alerts No Known Allergies [...] vein(Confirmed) 1right sided weakness- uses walker to [id number] WEAKNESS RIGHT SIDE, USES WALKER, MEMORY DEFICITS,3This problem was added by Discern Expert for Lab confirmed ESBL. PER POLICY, CONSULT YOUR INFECTION CONTROL PRACTITIONER IF YOU FEEL THIS CONDITION SHOULD BE MARKED [id number] CELL AND SQUAMOUS REMOVED5 TREATED WITH CHEMO.6FINGERS AND TOES FROM CYATR4HOZGECA Procedures Procedure Date Related Diagnosis Body Site Status ivc filter 11/14/19 Completed Bladder operation1 10/1990 Completed BLEPHROPLASTY Completed Carcinoma2 Completed CATARACTS REMOVED Completed Hysterectomy Completed Knee replacement3 Completed Plantar fascia4 Completed PORTACATH LEFT CHEST Complet ed Rectal fistula Completed Sclerotherapy of varicose vein5 Completed 1BLADDER GWMAR5SFFDKTHP SKIN CANCERS STNOHMA9VWYYF6Crqf fhsr0Jmbczisxt Social History Social History Type Response Smoking Status Former smoker, quit more tarik n 30 days ago; Number of years: 8; entered on: 05/31/20 Sex Medical Equipment Implanted Date:11/14/19 Target Site:Unknown Description Quantity MRI Company Model IVC Filter 1 Unknown BONNIE: No Information Assigning Authority: FDA
--- OUTSIDE RECORDS SUMMARY | 2022-07-28 13:38 | XMS_ITS | Continuity of Care Document ---
:1940 Author Organization [facility] [place] [facility] Address [address] [place] [address]- Care Team Providers Name Role Phone PCP, Unknown Primary Care Physician Unavailable Encounter AZSACLIN_FIN [id number] Date(s): 10/04/99 - 06/28/20 [facility] [place] - [place] [address] [place], [employer] [address]- [facility] Allergies, Adverse Reactions, Alerts No Known Allergies [...] vein(Confirmed) 1right sided weakness- uses walker to [id number] WEAKNESS RIGHT SIDE, USES WALKER, MEMORY DEFICITS,3This problem was added by Discern Expert for Lab confirmed ESBL. PER POLICY, CONSULT YOUR INFECTION CONTROL PRACTITIONER IF YOU FEEL THIS CONDITION SHOULD BE MARKED [id number] CELL AND SQUAMOUS REMOVED5 TREATED WITH CHEMO.6FINGERS AND TOES FROM [id number] Procedures Procedure Date Related Diagnosis Body Site Status ivc filter 11/14/19 Completed Bladder operation1 10/1990 Completed BLEPHROPLASTY Completed Carcinoma2 Completed CATARACTS REMOVED Completed Hysterectomy Completed Knee replacement3 Completed Plantar fascia4 Completed PORTACATH LEFT CHEST Complet ed Rectal fistula Completed Sclerotherapy of varicose vein5 Completed 1BLADDER OUMKV6FKWIMDRS SKIN CANCERS ITTXBHS4IEFCE3Nwxk ohhe5Abgmwcqbg Social History Social History Type Response Smoking Status Former smoker, quit more tarik n 30 days ago; Number of years: 8; entered on: 05/31/20 Sex Medical Equipment Implanted Date:11/14/19 Target Site:Unknown Description Quantity MRI Company Model IVC Filter 1 Unknown BONNIE: No Information Assigning Authority: FDA
--- OUTSIDE RECORDS SUMMARY | 2022-07-28 13:38 | XMS_ITS | Referral Summary ---
:1940 Author Organization [facility] - Internal Medicine - [facility] Address [address] [place] [address]- Care Team Providers Name Role Phone Carol Ruff MD Primary Care Physician Encounter TATUM [id number] Date(s): 10/04/99 - 03/12/20 [facility] - Internal Medicine - [place] [address] [place] [address]- [facility] Problem List Condition Effective Dates Status Health [...] Tab, 0, Maintenance, Route to Pharmacy Electronically, [facility] #[id number] Start Date: 12/16/19 Status: Orderedatorvastatin 40 mg [...] Tab, 0, Maintenance, Route to Pharmacy Electronically, [facility] #[id number] Start Date: 12/16/19 Status: OrderedFlorastor 250 mg, PO, BID, 0, Maintenance Start Date: 11/15/19 Status: OrderedguaiFENesin 600 mg oral tablet, extended release 1 Tab, PO, BID, PRN, Cough, 0, Maintenance Start Date: 11/15/19 Status: Orderedondansetron 4 mg oral tablet 1 Tab Tab, PO, q4hr, PRN, Nausea, Qty: 20 Tab, 0, Maintenance, Route to Pharmacy Electronically, [facility] #[id number] Start Date: 12/06/19 Stop Date: 12/11/19 Status: [...] Tab, 0, Maintenance, Route to Pharmacy Electronically, [facility] #[id number] Start Date: 12/16/19 Stop Date: 01/15/20 Status: Ordered Procedures Procedure Date Related Diagnosis Body Site Status ivc filter 11/14/19 Completed Bladder operation Completed Carcinoma Completed Hysterectomy Completed Knee replacement Completed Plantar fascia1 Completed Rectal fistula Completed Sclerotherapy of varicose vein2 Completed 1Left rpuj2Ckrwwphqj Social History Social History Type Response Smoking Status Former smoker, quit more tarik n 30 days ago; Stopped at age: [age]; entered on: 11/27/19
--- OUTSIDE RECORDS SUMMARY | 2022-07-28 13:38 | XMS_ITS | Continuity of Care Document ---
:1940 Author Organization [facility] [place] - [facility] Address [address] [place] [address]- Care Team Providers Name Role Phone PCP, Unknown Primary Care Physician Unavailable Encounter AZSACLIN_FIN [id number] Date(s): 10/04/99 - 06/13/20 [facility] [place] - [facility] [address] [place] [address]- [facility] Allergies, Adverse Reactions, Alerts No Known Allergies [...] vein(Confirmed) 1right sided weakness- uses walker to [id number] WEAKNESS RIGHT SIDE, USES WALKER, MEMORY DEFICITS,3This problem was added by Discern Expert for Lab confirmed ESBL. PER POLICY, CONSULT YOUR INFECTION CONTROL PRACTITIONER IF YOU FEEL THIS CONDITION SHOULD BE MARKED [id number] CELL AND SQUAMOUS REMOVED5 TREATED WITH CHEMO.6FINGERS AND TOES FROM [id number] Procedures Procedure Date Related Diagnosis Body Site Status ivc filter 11/14/19 Completed Bladder operation1 10/1990 Completed BLEPHROPLASTY Completed Carcinoma2 Completed CATARACTS REMOVED Completed Hysterectomy Completed Knee replacement3 Completed Plantar fascia4 Completed PORTACATH LEFT CHEST Complet ed Rectal fistula Completed Sclerotherapy of varicose vein5 Completed 1BLADDER TGOIK8AEYSUKAM SKIN CANCERS XEJVKRL6YSJVK7Tlhy yiiz9Eladpfzyh Social History Social History Type Response Smoking Status Former smoker, quit more tarik n 30 days ago; Number of years: 8; entered on: 05/31/20 Sex Medical Equipment Implanted Date:11/14/19 Target Site:Unknown Description Quantity MRI Company Model IVC Filter 1 Unknown BONNIE: No Information Assigning Authority: FDA
--- OUTSIDE RECORDS SUMMARY | 2022-07-28 13:38 | XMS_ITS | Continuity of Care Document ---
:1940 Author Organization [facility] [place] [facility] Address [address] [place] [address]- Care Team Providers Name Role Phone PCP, Unknown Primary Care Physician Unavailable Encounter AZSACLIN_FIN [id number] Date(s): 10/04/99 - 06/18/20 [facility] [place] - [facility] [address] [place], [place] [address]- [facility] Allergies, Adverse Reactions, Alerts No Known Allergies [...] vein(Confirmed) 1right sided weakness- uses walker to nlxbbhnx6BLFAAEUM WEAKNESS RIGHT SIDE, USES WALKER, MEMORY DEFICITS,3This problem was added by Discern Expert for Lab confirmed ESBL. PER POLICY, CONSULT YOUR INFECTION CONTROL PRACTITIONER IF YOU FEEL THIS CONDITION SHOULD BE MARKED DDAQRBHE2TGPFM CELL AND SQUAMOUS REMOVED5 TREATED WITH CHEMO.6FINGERS AND TOES FROM [id number] Procedures Procedure Date Related Diagnosis Body Site Status ivc filter 11/14/19 Completed Bladder operation1 10/1990 Completed BLEPHROPLASTY Completed Carcinoma2 Completed CATARACTS REMOVED Completed Hysterectomy Completed Knee replacement3 Completed Plantar fascia4 Completed PORTACATH LEFT CHEST Complet ed Rectal fistula Completed Sclerotherapy of varicose vein5 Completed 1BLADDER EDRMA4WMFPTALD SKIN CANCERS NIBKMJV5GTURB2Tkxe btlq0Aobeqypjr Social History Social History Type Response Smoking Status Former smoker, quit more tarik n 30 days ago; Number of years: 8; entered on: 05/31/20 Sex Medical Equipment Implanted Date:11/14/19 Target Site:Unknown Description Quantity MRI Company Model IVC Filter 1 Unknown BONNIE: No Information Assigning Authority: FDA
--- OUTSIDE RECORDS SUMMARY | 2022-07-28 13:42 | XMS_ITS | Continuity of Care Document ---
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 Embolic stroke Resolved RESIDUAL Bonilla ler (disorder) 2 WEAKNESS Regional RIGHT SIDE, Medical USES WALKER, [place], [facility] [place] - MEMORY Internal DEFICITS, Medicine - [facility], esthela [place] [facility] Herpes zoster Resolved Chandl er (disorder) 2 [facility] - Internal Medicine [facility], esthela [place] [facility] Finding of protein Resolved C handler level (finding) 2 [facility] - Internal Medicine [facility], esthela [place] [facility] Squamous cell Active REMOVED Chandl er carcinoma of skin 2 Re gional of face (disorder) [facility] - Internal Medicine - [facility],Gracie [place]regon Va dical [place],[facility] Thrombosis of Active Chandl er superficial vein 2 Reg ional of lower limb Medica l (disorder) Center,[facility] Internal Medicine - [facility], esthela [place] [facility] dical [place],[facility] 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 Coronary Active Chaptio arteriosclerosis 2 Reg ional (disorder) Medical C enter Depressive Active [place] disorder 2 Regional (disorder) Medical [place],[facility] Internal Medicine [facility],Gracie [facility] 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 PER Medicine - [facility] FrankieGracie CONSULT YOUR [facility] INFECTION Center,[facility] PRACTITIONER Hospita l and IF YOU FEEL Medical THIS Center, CONDITION [facility] SHOULD BE [facility] MARKED Centers RESOLVED Hyperlipidemia Active Bonilla ler (disorder) 2 Regional Medical Ce nter Hypertensive Active Chandle r disorder, systemic 2 R egional arterial Medical (disorder) Center,[facility] - Internal Medicine - [facility], esthela [place] [facility] dical [place],[facility] Low blood pressure Active C handler (disorder) 2 Regional Medical Ce nter Malignant neoplasm Active BASAL CELL [place] of skin (disorder) 2 AND SQUAM S [facility] REMOVED [facility] Internal Medicine [facility], 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 [facility] Internal Medicine [facility] Myocardial Active [place] infarction 2 Regional (disorder) Medical C enter Neuropathy Active FINGERS AND Chandle r (disorder) 2 TOES FROM [facility] CHEMO [facility] Internal Medicine [facility], [facility] Peripheral Active [place] arterial disease 2 Reg ional Medical Ce nter Swelling - edema - Active C handler symptom (finding) 2 Re giatrium health Medical Ce nter Cerebral [place] infarction, 0 Regional unspecified Medical Center Encephalopathy, Jacques dler unspecified 0 Regional Medical Ce nter Headache [place] 0 Regional Medical Ce nter Acute embolism and C handler thrombosis of 0 Region al unspecified deep Med ical Center veins of left lower extremity Acute embolism and [facility] thrombosis of left 0 E ast [place] popliteal vein [facility] Cerebral [facility] ert infarction due to 0 Me dical Center embolism of unspecified cerebral artery Essential [place] (primary) 0 Regional hypertension Medical Center Hyperlipidemia, Jacques dler unspecified 0 Regional Medical Ce nter Other [facility] ert encephalopathy 0 Medic al 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) use of 0 Reg ional anticoagulants Medic al Center Personal history Rachel ndler of nicotine 0 Regional dependence Medical C enter Personal history Rachel ndler of transient 0 Regiona l ischemic attack [facility] (TIA), and cerebral infarction without residual deficits Acute embolism and C handler thrombosis of 0 Region al unspecified Medical Center popliteal vein Other specified Jacques dler abnormal findings 0 Re gional of blood chemistry [facility] Unspecified visual C handler disturbance 0 Regional Medical Ce nter Metabolic [place] encephalopathy 0 Regio nal Medical Ce nter 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 Re gional left popliteal Medic al Center vein Embolism and Chandle r thrombosis of 0 Region al superficial veins Me dical Center of left lower extremities Unspecified atrial C handler fibrillation 0 Regiona l Medical Ce nter Migraine, [place] unspecified, not 0 Reg ional intractable, Medical Center without status migrainosus Obstructive sleep Ch andler apnea (adult) 0 Region al (pediatric) Medical Center NIHSS score 0 Chandl er 0 Regional Medical Ce nter Atherosclerotic Jacques dler heart disease of 0 Reg ional [place] coronary [facility] artery without angina pectoris 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 0 [place] onal joint Medical Ce nter Peripheral [place] vascular disease 2 Reg ional (disorder) Medical C enter Pain at rest of Jacques dler left lower limb 2 [place] onal co-occurrent and Med ical Center due to atherosclerosis (disorder) Chronic occlusion Ch andler of artery of 2 Regiona l extremity Medical Ce nter (disorder) Atherosclerosis of C handler coronary artery 2 [place] onal (disorder) Medical C enter Old myocardial Bonilla ler infarction 2 Regional (disorder) Medical C enter History of - TIA Rachel ndler (context-dependent 2 R egional category) Medical Ce nter History of [place] thromboembolism of 2 R egional vein (situation) [facility] Long-term current Ch andler use of 2 Regional anticoagulant Medica l Center (situation) History of - Chandle r Disorder 2 Regional (context-dependent edical Center category) Exposure to 2019 Rachel ndler novel coronavirus 2 Re gional Medical Ce nter Dysarthria and Bonilla ler anarthria 0 Regional Medical Ce nter Atrial septal [facility] Ce [facility] Aphasia [place] 0 Regional Medical Ce nter Personal history Rachel ndler 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 NIHSS score 1 Chandl er 0 Regional Medical Ce nter Abnormal [place] electrocardiogram 0 Re gional [ECG] [EKG] Medical Center Personal history Rachel ndler of other malignant 0 R egional neoplasm of skin [facility] Cerebral [place] infarction due to 0 Re gional embolism of Medical Center unspecified cerebellar artery Acute embolism and C handler thrombosis of left 0 R egional calf [facility] [place] Abnormal levels of C handler other serum 0 Regional enzymes Medical Ce nter Pain in left wrist C handler 0 Regional Medical Ce nter Other specified Jacques dler disorders of bone 0 Re gional density and Medical Center structure, unspecified site NIHSS score 2 Chandl er 0 Regional Medical Ce nter Essential [place] hypertension 2 Regiona l (disorder) Medical C enter History of [place] malignant neoplasm 0 R egional of skin Medical Ce nter (situation) History of - Chandle r chemotherapy 0 Regiona l (context-dependent edical Center category) Major depression, Ch andler single episode 0 Regio nal (disorder) Medical C enter Major depressive [facility] disorder, single 0 Eas t [place] episode, Rehabilita tion unspecified Hospital Bilateral lower Jacques dler limb 2 Regional atherosclerosis [facility] Center pain at rest co-occurrent and due to atherosclerosis Long-term current Ch andler use of aspirin 2 Regio nal (situation) Medical Center Pain in [place] unspecified lower 0 Re gional leg Medical Ce nter Pain in right Chandl er toe(s) 0 Regional Medical Ce nter Noninfective Chandle r gastroenteritis 0 Conc[place] onal and colitis, Medical Center unspecified Blindness, one Bonilla ler eye, unspecified 0 Reg ional eye Medical Ce nter Visual discomfort, C handler bilateral 0 Regional Medical Ce nter Unspecified [place] abdominal pain 0 Regio nal Medical Ce nter Malignant neoplasm C handler of unspecified 0 Regio nal ovary Medical Ce nter Fever, unspecified C handler 0 Regional Medical Ce nter Cerebral [place] infarction due to 0 Re gional embolism of right Me dical Center cerebellar artery Nonpyogenic [place] meningitis 0 Regional Medical Ce nter NIHSS score 3 Chandl er 0 Regional Medical Ce nter Non-ST elevation Rachel ndler (NSTEMI) 0 Regional myocardial Medical C enter infarction Acute pancreatitis C handler without necrosis 0 Reg ional or infection, Medica l Center unspecified Pleural effusion, Ch andler not elsewhere 0 Region al classified Medical C enter Acute kidney Chandle r failure, 0 Regional unspecified Medical Center Malignant neoplasm C handler of right ovary 0 Regio nal Medical Ce nter Other ascites Chandl er 0 Regional Medical Ce nter Other primary Chandl er thrombophilia 0 Region al Medical Ce nter Other forms of Bonilla ler acute ischemic 0 Regio nal heart disease Medica l Center Celiac artery Chandl er compression 0 Regional syndrome Medical Ce nter Tubulo-interstitia C handler l nephritis, not 0 Reg ional specified as acute [facility] Center or chronic Cerebral [place] infarction due to 0 Re gional embolism of other Va dicnm Center cerebral artery Unspecified [place] atherosclerosis of 0 R egional [place] arteries of [facility] extremities, bilateral legs 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 0 R egional l disease, Medical C enter unspecified Anemia in [place] neoplastic disease 0 R egional Medical Ce nter Anemia in other Jacques dler chronic diseases 0 Reg ional classified Medical C enter elsewhere Unqualified visual C handler loss, right eye, 0 Reg ional normal vision left [facility] eye Infarction of [facility] spleen 0 Regional Medical Ce nter Solitary pulmonary C handler nodule 0 Regional Medical Ce nter Elevated white [facility] blood cell count, 0 Re gional unspecified Medical Center Torticollis [place] 0 Regional Medical Ce nter Ingrowing nail [facility] 0 Regional Medical Ce nter Retention of [facility] r urine, unspecified 0 R egional Medical Ce nter Unspecified [facility] Escherichia coli 0 Reg ional [E. 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 of 0 Reg ional aspirin Medical Ce nter Medications Medication Details Route Status Patient Ordering Order Source Instructions Provider Date docusate sodium 100 mg, PO, Active Jacques dler Daily, PRN, as 2021 Regional needed for Medical constipation, Center Refills: 0, Maintenance Saccharomyces 250 mg, PO, Active [facility] er boulardii BID, Refills: 2021 Regional 0, Maintenance Medical Center olaparib 150 MG 300 mg, PO, Active [facility] dler Oral Tablet BID, Refills: 2021 Region al [Lynparza] 0, Maintenance [facility] Vitamin D3 125 mcg, PO, Active Daily, 2021 Regional Refills: 0, [facility] B-12 Resin 500 mcg, PO, Active Daily, 2021 Regional Refills: 0, [facility] Midodrine 2.5 mg, PO, Active BID, Refills: 2021 [facility] 0, [facility] atorvastatin 20 mg, PO, Active Daily, 2021 Regional Refills: 0, [facility] olaparib 100 MG 2 Tab Tab, PO, Active 01/29/ C handler Oral Tablet BID, Refills: 2020 [facility] [Lynparza] 0, [facility] Fentanyl 25-50 mcg, IV Inactive 01/29/ [facility] Push, INJ, 2020 [place] q5min Medical Priority: Center Routine PRN Sedation, For light (RASS of -2) or moderate (RASS of -3) sedation. Start 25-50mcg/5 min until level of sedation is achieved and/or dose of 250mcg/hr is reached. May redose for longer procedure to...Notes: C: Narcotic Pain Medication; I: Pain; SE: constipation; dizziness, drowsiness, nausea Toradol 15 mg, IV Inactive 06/02/ [place] Push, INJ, ATC 2019 [facility] while awake. Medical For pts Center greater than 65 yo, less than 50 kg, or renal dysfunction (Scr greater than 1.5 mg/dL), Start: 06/02/20 15:00:00 [facility], Stop: 06/02/20 15:00:00 [facility] Amlodipine 2.5 mg, PO, Inactive 06/02/ [place] Tab, Start: 2019 [facility] 06/02/20 Medical 9:00:00 [facility] carvedilol 6.25 mg, PO, Inactive 06/02/ [place] r Tab, Start: 2019 [facility] 06/02/20 Medical 9:00:00 [facility] Acetaminophen 1-2 tab, PO, Inactive 06/01/ Jacques dler 325 MG / q4hr Routine 2019 [facility] Oxycodone PRN Pain Medical Hydrochloride 5 Moderate to Cent er MG Oral Tablet Severe (4-10), FIRST DOSE INSTRUCTIONS: Start with 1 tab, assess response after 30 minutes., Start: 05/31/20 17:02:00 MSTNotes: NTE 4 gms of Acetaminophen in 24 hrs. C: Narcotic Pain Medication; I: Pain; SE: constipation; dizziness, drowsiness, nausea. Tylenol 1,000 mg, PO, Inactive [place] Tab, q8hr 2019 Regional Priority: Medical Routine PRN Center Pain Mild (1-3), Start: 05/31/20 16:52:00 MSTNotes: NTE 4 gms of Acetaminophen in 24 hrs C: Pain Medication; I: Pain; SE: hypotension Enoxaparin 60 mg, SUBCUT, Active Chandl er BID, Refills: [address] Internal [facility] Melatonin 9 mg, PO, qHS, Active [place] r Refills: 2019 [facility] Internal [facility] gabapentin 100 mg, PO, Active [place] qHS, Refills: [address] Internal [facility] and Medical [place],[facility] Warfarin 10 mg, PO, Active [place] Daily, 2019 Regional Refills: 0, Medical DAILY [facility] WEDNESDAY, - Internal Maintenance Medicine [facility] and Medical [place],[facility] Famotidine 20 mg, PO, Active [place] qHS, Refills: [address] Internal Medicine [facility] and Medical [place],[facility] atorvastatin 20 mg, PO, Active [place] qHS, Refills: [address] Internal Medicine - [facility] and [facility] Centrum Silver 1 Tab, PO, Active 05/28/ Chandl er Women's oral Daily, 2020 Regional tablet Refills: 0, [facility] - Internal Medicine - [facility] and [facility] carvedilol 6.25 mg, PO, Active 05/28/ [place] BID, Refills: 2020 Regional 0, [facility] - Internal Medicine - [facility] and [facility] Aspirin 81 mg, PO, Active 05/28/ [place] Daily, 2019 Regional Refills: 0, [facility] - Internal Medicine - [facility] and [facility] carvedilol 6.25 1 Tab Tab, PO, Active 12/15/ C handler MG Oral Tablet BID, Qty: 60 2019 [place] onal [Coreg] Tab, 0, [facility] Route to - Internal Pharmacy Medicine - Electronically [facility] #[id number] Aspirin 81 MG 1 Tab Tab, Active 12/15/ Chandle r Chewable Tablet Chew, PO, 2020 Region al Daily, Qty: 30 Medical Tab, , [facility], - Internal Route to Medicine - Pharmacy [facility] Electronically , [facility][id number] warfarin 2.5 mg 1 Tab Tab, PO, Active 12/15/ C handler oral tablet qDay, Qty: 30 2020 Region al Tab, 0, [facility] Route to - Internal Pharmacy Medicine - Electronically [facility] #[id number] Acetaminophen 1 Tab, PO, Active 12/15/ Chandle r 325 MG / q6hr, PRN, 2019 Regional butalbital 50 MG Headache, 5 Med ical / Caffeine 40 MG Day, Qty: 24 Ce nter Oral Tablet Tab, 0, [Fioricet] 12/21/19 13:02:00 MST, Acute, Route to Pharmacy Electronically , [facility] #[id number], Tab atorvastatin 40 1 Tab Tab, PO, Active 12/15/ C handler mg oral tablet qDay, 02019 [facility] [place] - Internal Medicine - [facility] amLODIPine 5 mg 1 Tab Tab, PO, Active 12/15/ C handler oral tablet qDay, 02019 [facility] - Internal Medicine - [facility] ertapenem 1 gm 1 gm, Pwd, IV, Active 12/15/ Ch andler injection qDay, 7 Day, 2019 [facility] Qty: 1 Kit, 0, Medical 12/23/19 [place] 12:54:00 MST, Acute, Print Requisition ondansetron 4 mg 1 Tab Tab, PO, Active 12/05/ [place] oral tablet q4hr, PRN, 2019 [facility] Nausea, Qty: Medical 20 Tab, 0, [facility] Maintenance, - Internal Route to Medicine - Pharmacy [facility] Electronically , [facility] #[id number] apixaban 5 MG 1 Tab Tab, PO, Active 11/27/ Dig nity Oral Tablet BID, Qty: 60 2019 [facility] [Eliquis] Tab, 0, [place] Maintenance [facility] amLODIPine 2.5 1 Tab Tab, PO, Active 11/27/ Di gnity mg oral tablet qDay, Qty: 30 2019 [facility] Tab, 0, [place] Maintenance Rehabil[facility] on Hospital atorvastatin 20 mg, PO, Active 11/27/ Dignity qDay, Qty: 90 2019 [facility] Tab, 0, [place] Maintenance Rehabil[facility] on Hospital Bethanechol 10 mg, Tab, Active 11/27/ Dignity PO, TID, Qty: 2019 [facility] t 90 Tab, 0, x14 [place] days (started Rehabilita ti 11/26/19)[id number] on Hospit al [id number] , Maintenance Amlodipine 5 mg, PO, Tab, Active 11/25/ Dignit y Start: 2019 [facility] 11/25/19 [place] 7:00:00 [facility] Rehabilitati on Hospital amLODIPine 2.5 1 Tab Tab, PO, Active 11/25/ Di gnity mg oral tablet qDay, Qty: 30 2019 [facility] Tab, 0, [place] Maintenance, Rehabilitat i Route to on Hospital Pharmacy Electronically , [facility] #[id number] atorvastatin 20 1 Tab Tab, PO, Active 11/25/ D ignity mg oral tablet qDay, Qty: 30 2019 [facility] Tab, 0, [place] Maintenance, Rehabilitat i Route to on Hospital Pharmacy Electronically , [facility] #[id number] Oxycodone 1 Cap Cap, PO, Active 11/25/ Dignity Hydrochloride 5 q6hr, PRN, as 2019 [facility] Oral Capsule needed for Olivas y pain, 5 Day, Rehabilitat i Qty: 10 Cap, on Hospital 0, 11/29/19 22:27:00 MST, Acute, Route to Pharmacy Electronically , [facility] #[id number] apixaban 5 MG 1 Tab Tab, PO, Active 11/25/ Dig nity Oral Tablet BID, Qty: 60 2019 [facility] [Eliquis] Tab, 0, [place] Maintenance, Rehabilitat i Route to on Hospital Pharmacy Electronically , [facility] #[id number] bethanechol 10 1 Tab Tab, PO, Active 11/25/ Di gnity mg oral tablet TID, 14 Day, 2019 [facility] Qty: 42 Tab, Valley 0, 12/08/19 Rehabilitati 22:27:00 [facility], on Hospita l Acute, Route to Pharmacy Electronically , [facility] #[id number] Amoxicillin 875 875 mg, PO, Active 11/15/ Jacques dler MG / Clavulanate q12hr, 02019 Regio nal 125 MG Oral Maintenance Medical Tablet Center,[facility] Florastor 250 mg, PO, Active 11/15/ [place] BID, 02019 [facility] [place] - Internal Medicine - [facility],Dig nity [facility] Rehabil[facility]ati on Hospital,[facility] 12 HR 1 Tab, PO, Active [place] Guaifenesin 600 BID, PRN, 2020 Region al MG Extended Cough, 0, Medical Release Tablet Maintenance Cente r,[facility] [place] - Internal Medicine - [facility] and Medical [place],[facility] Oxycodone 1 Cap, PO, Active [place] Hydrochloride 5 q4hr, PRN, as 2019 Re gional MG Oral Capsule needed for Medic al pain, 0, [facility] Colace 100 mg, PO, Active [place] BID, 0, 2019 [facility] Internal Medicine [facility] Bethanechol 10 mg, PO, Active [place] TID, 0, 2019 [facility] ondansetron 4 mg 1 Tab, PO, Active Lalo dler oral tablet q4hr, PRN, 2019 Regional Nausea, 0, Medical [facility]issa [facility] sennosides, HALF-WAY 17.2 mg, PO, Active Rachel ndler Daily, PRN, as 2019 Regional needed for Medical constipation, [place],[facility] G 0, Maintenance - Interna l Medicine [facility] [place] [facility] Acetaminophen 1 Tab, PO, 0, Active Lalo dler 325 MG / Maintenance 2020 Regional butalbital 50 MG Medical / Caffeine 40 MG [facility] Oral Tablet [place] [Fioricet] [facility] Citalopram 10 mg, PO, Active [place] qAM, Refills: [address],[facility] [place] - Internal Medicine - [facility] & [place] [facility] Fentanyl 25-50 mcg, IV Active 11/15/ [facility] Push, INJ, 2019 [place] q5min Medical Priority: Center Routine PRN Sedation, For light (RASS of -2) or moderate (RASS of -3) sedation. Start 25-50mcg/5 min until level of sedation is achieved and/or dose of 250mcg/hr is reached. May redose for longer procedure to...Notes: C: Narcotic Pain Medication; I: Pain; SE: constipation; dizziness, drowsiness, nausea Acetaminophen 650 mg, PO, Active 11/09/ Dignit y Tab, q6hr 2019 [facility] Priority: Benjamin Routine PRN Rehabilitati Pain Mild on Hospital (1-3), Start: 11/09/19 15:29:00 MSTNotes: NTE 4 gms of Acetaminophen in 24 hrs C: Pain Medication; I: Pain; SE: hypotension Toradol 15 mg, IV Active 11/08/ [place] Push, INJ, 2019 [facility] q8hr NOW PRN Medical Pain, pts Center greater than 65 yo, less than 50 kg, or renal dysfunction (Scr greater than 1.5 mg/dL), for 3 Dose/Time, Start: 11/07/19 19:05:00 MST, Stop: Limited # of timesNotes: Note dose, age, renal function, duration C: Anti-inflammat ory (NSAID); I: Pain Control; SE: heartburn, nausea apixaban 5 MG 1 Tab Tab, PO, Active 11/05/ Rachel lee Oral Tablet BID, 0, 2019 [facility] [Eliqu] [facility] Outpatient ST Outpatient ST, Active 10/26/ Rachel lee See 2019 [facility] Instructions, Medical 1 Each, 0, 0, Center 10/26/19 14:02:00 MST, ST eval and tx for aphasia, cognition 3 x per week for 4 weeks, [id number] cure, Maintenance, Print Requisition apixaban 5 MG See Active 10/26/ [place] Oral Tablet Instructions, [address] [place] [address] al [Eliquis] Tab, Qty: 70 Medical Tab, 0, 2 Tab Center PO BID x 7 days then 1 PO BID thereafter, Maintenance, Route to Pharmacy Electronically , [id number] Vitamin D3 5,000 1 Cap Cap, PO, Active [place] Unit oral qDay, 0, with 2020 Regional capsule food, Medical Maintenance Center,[facility] Internal [facility] [place],[facility] Vitamin B12 50 1 Tab Tab, PO, Active andler mcg oral tablet qAM, Refills: 2019 Re gional 0, [facility] Internal [facility] [place],[facility] Calcium 600 +D 1 Tab Tab, PO, Active Ch andler Tab TID, Refills: 2019 [place] [id number], [facility] [place],[facility] atorvastatin 20 1 Tab Tab, PO, Active C handler mg oral tablet qDay, 0, 2019 [facility] amLODIPine 2.5 1 Tab Tab, PO, Active andler mg oral tablet qDay, 0, 2019 [facility] Cyclobenzaprine TK 1 T PO TID Active andler hydrochloride 10 PRN [facility]t [facility] Sumatriptan 25 1 Tab Tab, PO, Active Ch andler MG Oral Tablet qDay, PRN, as 2019 Reg ional needed for Medical migraine Center headache, Qty: 18 Tab, 0, may repeat dose after 2 hours up to a maximum of 200 mg in 24 hours, Maintenance Results Order Name Results Value Reference Date Interpretation Comments Norma rce Range ACT iSTAT Activated 202 74 - 137 01/01 H District Customs Director: [id number] SJ Uriarte (POCT) Clot Time /2021 [facility] iSTA (POCT) [facility] ACT iSTAT Activated <50 74 - 137 01/01 L District Customs Director: [id number] JS Uriarte (POCT) Clot Time /2021 [facility] (POCT) [facility] POC Activated <50 74 - 137 01/01 Result [facility] Coagulatio Clot Time /2021 Comment: [facility] iSTAT (POCT) District Customs Director: Medical [id number] [place] [facility] KEENE BMP Sodium 137 134 - 144 01/01 [place] (Basic) /2021 [facility] BMP Potassium 3.7 3.5 - 5.1 01/01 [place] (Basic) /2021 [facility] BMP Chloride 102 98 - 107 01/01 [place] (Basic) /2021 [facility] BMP CO2 24 23 - 31 01/01 [facility] (Basic) /2021 [facility] BMP Glucose 99 70 - 99 01/01 [place] [employer] (ADA) Guidelines: [facility] (Basic) Level /2021 Optimal fa sting blood glucose is below 100 mg/dL. A person with pre-diabetes has a fasting blood glucose of 100-125. [facility] BMP BUN 12 10 - 20 01/01 [place] (Basic) /2021 [facility] BMP Creatinine 0.77 0.57 - 01/01 Result is ID-GC/MS st andardized [facility] (Basic) 1.11 /2021 [facility] BMP Calcium 9.2 8.4 - 10.2 01/01 [facility] (Basic) /2021 [facility] BMP Anion Gap 15 5 - 15 01/01 [facility] (Basic) /2021 [facility] BMP eGFR >60 01/01 NORMALIZED FOR ID-GC/MS STANDARDIZED CREATININE [facility] (Basic) Non- /2021 (NON-AF AMR=NON-, AF AMR=) Regional Am KIDNEY DAMAGE STAGES FRO [facility] Center STAGE 1 and 2 >60 mL/min /1.73 square meters STAGE 3 30-59 mL/min/1.7 3 square meters STAGE 4 15-29 mL/min/1.7 3 square meters STAGE 5 <14 mL/min/1.73 square meters BMP eGFR >60 01/01 NORMALIZED FOR ID-GC/MS STANDARDIZED CREATININE [place] (Basic) Afr/Amer /2021 (NON-AF AM R=NON-, AF AMR=) Regional KIDNEY DAMAGE STAGES FRO M [facility] Medical Center STAGE 1 and 2 >60 mL/min /1.73 square meters STAGE 3 30-59 mL/min/1.7 3 square meters STAGE 4 15-29 mL/min/1.7 3 square meters STAGE 5 <14 mL/min/1.73 square meters BMP Drug Calc 58.050 01/01 [place] (Basic) Weight (kg) /2021 [facility] BMP Height (cm) 165.100 01/01 [place] (Basic) /2021 [facility] CBC w/Diff WBC 3.3 4.8 - 10.8 01/01 L [place] /2021 [facility] CBC w/Diff RBC 2.40 4.00 - 01/01 L [place] 5.40 /2021 [facility] CBC w/Diff Hgb 9.4 11.5 - 01/01 L [place] 16.0 [facility] CBC w/Diff Hct 27.4 37.0 - 01/01 L [place] 47.0 [facility] CBC w/Diff MCV 114.0 80.0 - 01/01 H [place] 100.0 /2021 [facility] CBC w/Diff MCH 39.0 27.0 - 01/01 H [place] 34.0 /2021 [facility] CBC w/Diff MCHC 34.2 32.0 - 01/01 [place] 37.0 /2021 [facility] CBC w/Diff RDW 23.4 11.5 - 01/01 H [place] 16.0 [facility] CBC w/Diff Plt 288 130 - 400 01/01 [place] /2021 [facility] CBC w/Diff Neuts 70.8 35.0 - 01/01 [place] 80.0 [facility] CBC w/Diff Lymphs 14.4 10.0 - 01/01 [place] 55.0 /2021 [facility] CBC w/Diff Monos. 10.8 0.0 - 15.0 01/01 [place] CBC w/Diff Eos. 1.8 0.0 - 9.0 01/01 [place] CBC w/Diff Baso. 2.2 0.0 - 3.0 01/01 [place] CBC w/Diff ABS Neut 2.3 1.7 - 8.6 01/01 [place] CBC w/Diff ABS Lymph 0.5 0.5 - 5.9 01/01 [place] CBC w/Diff ABS [place] 0.4 0.0 - 1.6 01/01 [place] CBC w/Diff ABS Eos 0.1 0.0 - 1.0 01/01 [place] [facility] CBC w/Diff ABS Baso 0.1 0.0 - 0.3 01/01 [place] [facility] CBC w/Diff CBC Scan Auto Diff 01/01 [facility] CBC w/Diff Instr Flag2 DNV 01/01 ABN [facility] PT PT 11.5 10.0 - 01/01 [facility] 12.3 [facility] PT INR 1.00 01/01 INR THERAPEUTIC RANGE: C handler Use of the INR should b e limited to therapeutic monitoring Regional of patients on stable lo ng-term warfarin therapy. Medical Prophylaxis/treatment of venous thromboembolism .. INR 2-3 Center Prophylaxis/treatment of pulmonary embolism ...... INR 2-3 Prevention of systemic e mbolism from atrial fibrillation, myocardial infarction, t issue heart valves, valvular heart disease, and recurrent s ystemic embolism ...........INR 2-3 Prevention of systemic e mbolism from mechanical prosthetic heart valv es ................................. .........................INR 2.5-3.5 PTT PTT 36.0 25.5 - 01/01 Interpretive data for PT T-APTT: [facility] 36.0 For patien ts receiving unfractionated heparin the therapeutic range is 65.2-86.8 seconds as measured by the APTT which roughly corresponds to the recommended heparin concentration of 0.3-0.7 IU/mL as measured by the anti Xa-assay. Regional For patien ts on direct thrombin inhibitors, the APTT therapeutic range is 46.2-77.0 seconds. Medical Center CBC CBC Scan Auto Diff 01/01 [place] (01/01/22 7:30 AM) /2021 [facility] CBC WBC 3.3 4.8 - 10.8 01/01 [facility] CBC RBC 2.40 4.00 - 01/01 [place] 5.40 /2021 [facility] CBC Hgb 9.4 11.5 - 01/01 [place] 16.0 [facility] CBC Hct 27.4 37.0 - 01/01 [place] 47.0 [facility] CBC MCV 114.0 80.0 - 01/01 [place] 100.0 [facility] CBC MCH 39.0 27.0 - 01/01 [place] 34.0 [facility] CBC MCHC 34.2 32.0 - 01/01 [place] 37.0 [facility] CBC RDW 23.4 11.5 - 01/01 [place] 16.0 [facility] CBC Plt 288 130 - 400 01/01 [place] [facility] CBC Neuts 70.8 35.0 - 01/01 [place] 80.0 [facility] CBC Lymphs 14.4 10.0 - 01/01 [place] 55.0 [facility] CBC Monos. 10.8 0.0 - 15.0 01/01 [place] [facility] CBC Eos. 1.8 0.0 - 9.0 01/01 [place] [facility] CBC Baso. 2.2 0.0 - 3.0 01/01 [place] [facility] CBC ABS Neut 2.3 1.7 - 8.6 01/01 [place] [facility] CBC ABS Lymph 0.5 0.5 - 5.9 01/01 [place] [facility] CBC ABS [place] 0.4 0.0 - 1.6 01/01 [facility] CBC ABS Eos 0.1 0.0 - 1.0 01/01 [facility] CBC ABS Baso 0.1 0.0 - 0.3 01/01 [facility] [address] [place] [address] Coag PTT 36.0 25.5 - 01/01 [facility] 36.0 [facility] Coag PT 11.5 10.0 - 01/01 [facility] 12.3 [facility] Coag INR 1.00 01/01 [facility] [address] [place] [address] General eGFR >60 01/01 [facility] Chemistry Afr/Amer [facility] General eGFR >60 01/01 [facility] Chemistry Non- [facility] General Glucose 99 70 - 99 01/01 [facility] Chemistry Level [facility] General BUN 12 10 - 20 01/01 [facility] [address] [place] [address] General Creatinine 0.77 0.57 - 01/01 [facility] Chemistry 1.11 [facility] General Sodium 137 134 - 144 01/01 [facility] [address] [place] [address] General Potassium 3.7 3.5 - 5.1 01/01 [facility] [address] [place] [address] General Chloride 102 98 - 107 01/01 [facility] [address] [place] [address] General CO2 24 - 01/01 [facility] [address] [place] [address] General Calcium 9.2 8.4 - 10.2 01/01 [facility] [address] [place] [address] General Anion Gap 15 5 - 15 01/01 [facility] [address] [place] [address] COVID19 COVID19 Nasal 12/31 [facility] NonPUI Source [facility] COVID19 COVID19/SARS Negative Negative 12/31 The Apt karolina SARS-CoV-2 Assay combines the technologies of TMA (Care Transitions Manager Mediated Amplification) and DKA (Dual Kinetic Assay). It is a qualitative test used for the detection of nucleic acids from [facility] NonPUI -CoV-2 PCR RS-CoV-2 extracted from nasopharyngeal swabs, throat swabs, nasal and nasal washes. Negative test results may occur in spite of active virus infection. This test was developed by [employer] and its an Regional Result alytical p erformance characteristics have been validated by the [facility] pursuant to CLIA regulations. This test has EUA authorization from the Food and Drug Administrati Medical (Hologic Aptima SARS- CoV-2 Assay on the [place]). Center COVID19 COVID19 Intake 12/31 [place] NonPUI Reason for Screening /2021 Regional Test: (non-PUI) [facility] Microbiolo Microbiology NasalNegative 12/30 jean-pierre gy/Serolog /Serology *NA* /2021 Regional y (12/30/21 10:41 AM)
Medical Center ACT iSTAT Activated 225 74 - 137 12/05 H District Customs Director: [id number] PHOMMAVONGSA CARROL Uriarte (POCT) Clot Time /2021 [facility] iSTAT (POCT) [facility] BMP Sodium 138 134 - 144 12/05 [place] (Basic) /2021 [facility] BMP Potassium 3.8 3.5 - 5.1 12/05 [place] (Basic) /2021 [facility] BMP Chloride 104 98 - 107 12/05 [place] (Basic) /2021 [facility] BMP CO2 24 23 - 31 12/05 [place] (Basic) /2021 [facility] BMP Glucose 98 70 - 99 12/05 [place] [employer] at[employer] (ADA) Guidelines: [place] (Basic) Level /2021 Optimal fa sting blood glucose is below 100 mg/dL. A person with pre-diabetes has a fasting blood glucose of 100-125. [facility] BMP BUN 12 10 - 20 12/05 [place] (Basic) /2021 [facility] BMP Creatinine 0.71 0.57 - 12/05 Result is ID-GC/MS st andardized [place] (Basic) 1.11 /2021 [facility] BMP Calcium 9.1 8.4 - 10.2 12/05 [place] (Basic) /2021 [facility] BMP Anion Gap 14 5 - 15 12/05 [place] (Basic) /2021 [facility] BMP eGFR >60 12/05 NORMALIZED FOR ID-GC/MS STANDARDIZED CREATININE [place] (Basic) Non- /2021 (NON-AF AMR=NON-, AF AMR=) Regional Am KIDNEY DAMAGE STAGES FRO M [facility] Medical Center STAGE 1 and 2 >60 mL/min /1.73 square meters STAGE 3 30-59 mL/min/1.7 3 square meters STAGE 4 15-29 mL/min/1.7 3 square meters STAGE 5 <14 mL/min/1.73 square meters BMP eGFR >60 03/ NORMALIZED FOR ID-GC/MS STANDARDIZED CREATININE [place] (Basic) Afr/Amer (NON-AF AM R=NON-, AF AMR=) Regional KIDNEY DAMAGE STAGES FRO M [facility] Medical Center STAGE 1 and 2 >60 mL/min /1.73 square meters STAGE 3 30-59 mL/min/1.7 3 square meters STAGE 4 15-29 mL/min/1.7 3 square meters STAGE 5 <14 mL/min/1.73 square meters BMP Drug Calc 58.050 12/05 [place] (Basic) Weight (kg) /2021 [facility] BMP Height (cm) 165.100 12/05 [place] (Basic) /2021 [facility] CBC w/Diff WBC 3.2 4.8 - 10.8 03/04 L [place] /2021 [facility] CBC w/Diff RBC 2.31 4.00 - 03/04 L [place] 5.40 /2021 [facility] CBC w/Diff Hgb 9.0 11.5 - 03/04 L [place] 16.0 [facility] CBC w/Diff Hct 26.0 37.0 - 03/04 L [place] 47.0 [facility] CBC w/Diff MCV 112.5 80.0 - 03/04 H [place] 100.0 [facility] CBC w/Diff MCH 38.9 27.0 - 03/04 H [place] 34.0 [facility] CBC w/Diff MCHC 34.6 32.0 - 03/04 [place] 37.0 [facility] CBC w/Diff RDW 21.2 11.5 - 03/04 H [place] 16.0 [facility] CBC w/Diff Plt 291 130 - 400 03 [facility] CBC w/Diff Neuts 70.4 35.0 - 12/05 [place] 80.0 [facility] CBC w/Diff Lymphs 10.9 10.0 - 03/ [place] 55.0 [facility] CBC w/Diff Monos. 16.4 0.0 - 15.0 03/04 H [facility] CBC w/Diff Eos. 1.1 0.0 - 9.0 03 [facility] CBC w/Diff Baso. 1.2 0.0 - 3.0 12/05 [facility] CBC w/Diff ABS Neut 2.3 1.7 - 8.6 12/05 [facility] CBC w/Diff ABS Lymph 0.4 0.5 - 5.9 03/ L [facility] CBC w/Diff ABS [place] 0.5 0.0 - 1.6 12/05 [facility] CBC w/Diff ABS Eos 0.0 0.0 - 1.0 12/05 [facility] CBC w/Diff ABS Baso 0.0 0.0 - 0.3 12/05 [facility] CBC w/Diff CBC Scan Auto Diff 12/05 Verified by Discer n [facility] PT PT 12.4 10.0 - 03/04 H [facility] 12.3 [facility] PT INR 1.08 12/05 INR THERAPEUTIC RANGE: C handler Use of the INR should b e limited to therapeutic monitoring Regional of patients on stable lo ng-term warfarin therapy. Medical Prophylaxis/treatment of venous thromboembolism .. INR 2-3 Center Prophylaxis/treatment of pulmonary embolism ...... INR 2-3 Prevention of systemic e mbolism from atrial fibrillation, myocardial infarction, t issue heart valves, valvular heart disease, and recurrent s ystemic embolism ...........INR 2-3 Prevention of systemic e mbolism from mechanical prosthetic heart valv es ................................. .........................INR 2.5-3.5 PTT PTT 30.9 25.5 - 03/ Interpretive data for PT T-APTT: [place] 36.0 /2021 For patien ts receiving unfractionated heparin the therapeutic range is 65.2-86.8 seconds as measured by the APTT which roughly corresponds to the recommended heparin concentration of 0.3-0.7 IU/mL as measured by the anti Xa-assay. Regional For patien ts on direct thrombin inhibitors, the APTT therapeutic range is 46.2-77.0 seconds. [facility] Reason for MCV > 115 01/29 [facility] Request /2020 [facility] Smear Review RBC, WBC, 01/[address] [facility] [place] platelet Medical morphology Center appear normal. Js Monet M.D. CBC w/Diff WBC 3.3 4.8 - 10.8 01/29 L [facility] /2020 [facility] CBC w/Diff RBC 2.34 4.00 - 01/29 L [facility] 5.40 /2020 [facility] CBC w/Diff Hgb 10.3 11.5 - 01/29 L [facility] 16.0 /2020 [facility] CBC w/Diff Hct 30.0 37.0 - 01/29 L [facility] 47.0 /2020 [facility] CBC w/Diff MCV 128.3 80.0 - 01/29 H [facility] 100.0 /2020 [facility] CBC w/Diff MCH 44.2 27.0 - 01/29 H [facility] 34.0 /2020 [facility] CBC w/Diff MCHC 34.5 32.0 - 01/29 [facility] 37.0 /2020 [facility] CBC w/Diff RDW 16.5 11.5 - 01/29 H [facility] 16.0 /2020 [facility] CBC w/Diff Plt 220 130 - 400 01/29 [facility] /2020 [facility] CBC w/Diff Neuts 72.5 35.0 - 01/29 [facility] 80.0 /2020 [facility] CBC w/Diff Lymphs 11.4 10.0 - 01/29 [facility] 55.0 [facility] CBC w/Diff Monos. 12.2 0.0 - 15.0 01/29 [facility] CBC w/Diff Eos. 2.6 0.0 - 9.0 01/29 [facility] CBC w/Diff Baso. 1.3 0.0 - 3.0 01/29 [facility] CBC w/Diff ABS Neut 2.4 1.7 - 8.6 01/[address] [facility] CBC w/Diff ABS Lymph 0.4 0.5 - 5.9 01/29 L [facility] CBC w/Diff ABS [place] 0.4 0.0 - 1.6 01/29 [facility] CBC w/Diff ABS Eos 0.1 0.0 - 1.0 01/29 [facility] CBC w/Diff ABS Baso 0.0 0.0 - 0.3 01/29 [facility] [address] [place] [address] CBC w/Diff CBC Scan Scan/Morph 01/29 [facility] [address] [place] [address] CBC w/Diff RBC Morph See 01/29 [facility] Morphology [facility] CBC w/Diff Plt Est Adequate Adequate 01/29 [facility] [address] [place] [address] CBC w/Diff Polychromasi 1+ 01/29 [facility] a [address] [place] [address] CBC w/Diff Macrocytes 3+ 01/29 [facility] [address] [place] [address] CBC w/Diff Anisocytosis 2+ 01/29 [facility] [address] [place] [address] CBC w/Diff Ovalocytes 1+ 01/29 [facility] [address] [place] [address] CBC w/Diff Fragmented 1+ 01/29 ABN [facility] RBC [place] ([facility]) [place] CBC w/Diff Teardrop 1+ 01/29 [facility] Cell [address] [place] [address] CBC w/Diff Poikilocytos 2+ 01/29 [facility] is [facility] BMP Sodium 137 136 - 145 01/29 [facility] (Basic) [facility] BMP Potassium 4.0 3.5 - 5.1 01/29 [facility] (Basic) /2020 [facility] BMP Chloride 103 98 - 107 01/29 [facility] (Basic) /2020 [facility] BMP CO2 24 23 - 31 01/29 [facility] (Basic) /2020 [facility] BMP Glucose 98 83 - 110 01/29 [place] [employer] (ADA) Guidelines: [facility] (Basic) Level /2020 Optimal fa sting blood glucose is below 100 mg/dL. A person with pre-diabetes has a fasting blood glucose of 100-125. [facility] BMP BUN 16 10 - 01/29 [facility] (Basic) /2020 [facility] BMP Creatinine 0.85 0.57 - 01/29 Result is ID-GC/MS st andardized [facility] (Basic[facility] 1.25 [facility] BMP Calcium 9.0 8.4 - 10.2 01/29 [facility] (Basic) /2020 [facility] BMP Anion Gap 14 - 01/29 [facility] (Basic) /2020 [facility] BMP eGFR >60 01/29 NORMALIZED FOR ID-GC/MS STANDARDIZED CREATININE [facility] (Basic) Non- (NON-AF AMR=NON-, AF AMR=) [place] KIDNEY DAMAGE STAGES FRO [facility] STAGE 1 and 2 >60 mL/min /1.73 square meters STAGE 3 30-59 mL/min/1.7 3 square meters STAGE 4 15-29 mL/min/1.7 3 square meters STAGE 5 <14 mL/min/1.73 square meters BMP eGFR >60 01/29 NORMALIZED FOR ID-GC/MS STANDARDIZED CREATININE [facility] (Basic) Afr/Amer (NON-AF AM R=NON-, AF AMR=) [place] KIDNEY DAMAGE STAGES FRO [facility] STAGE 1 and 2 >60 mL/min /1.73 square meters STAGE 3 30-59 mL/min/1.7 3 square meters STAGE 4 15-29 mL/min/1.7 3 square meters STAGE 5 <14 mL/min/1.73 square meters BMP Heme Index Negative 01/29 [facility] (Basic) /2020 [facility] BMP Lipemia Negative 01/29 [facility] (Basic) Index /2020 [facility] BMP Drug Calc 59.864 01/29 [facility] (Basic) Weight (kg) /2020 [facility] BMP Height (cm) 165.100 01/29 [facility] (Basic) /2020 [facility] PT PT 12.0 10.0 - 01/29 [facility] 12.3 /2020 [facility] PT INR 1.08 01/29 INR THERAPEUTIC RANGE: M ercy Use of the INR should be limited to therapeutic monitoring [place] of patients on stable lo ng-term warfarin therapy. Medical Prophylaxis/treatment of venous thromboembolism .. INR 2-3 Center Prophylaxis/treatment of pulmonary embolism .......... INR 2-3 Prevention of systemic e mbolism from atrial fibrillation, myocardial infarction, t issue heart valves, valvular heart disease, and recurrent s ystemic embolism .................INR 2-3 Prevention of systemic e mbolism from mechanical prosthetic heart valv es ................................. ............................INR 2.5-3.5 PTT PTT 29.7 25.5 - 01/29 Interpretive data for PT T-APTT: [facility] 36.0 For patien ts receiving unfractionated heparin the therapeutic range is 65.2-86.8 seconds as measured by the APTT which roughly corresponds to the recommended heparin concentration of 0.3-0.7 IU/mL as measured by the anti Xa-assay. [place] For patien ts on direct thrombin inhibitors, the APTT therapeutic range is 46.2-77.0 seconds. [facility] [facility] CBC Smear Review RBC, WBC, 01/29 [facility] and /2020 [facility] Medical morphology Center appear normal. Js Monet M.D. CBC WBC 3.3 4.8 - 10.8 01/29 [facility] [address] [place] [address] CBC RBC 2.34 4.00 - 01/29 [facility] 5.40 /[address] [place] [address] CBC Hgb 10.3 11.5 - 01/29 [facility] 16.[address] [place] [address] CBC Hct 30.0 37.0 - 01/29 [facility] 47.[address] [place] [address] CBC MCV 128.3 80.0 - 01/29 [facility] 100.[address] [place] [address] CBC MCH 44.2 27.0 - 01/29 [facility] 34.0 [facility] CBC MCHC 34.5 32.0 - 01/29 [facility] 37.[address] [place] [address] CBC RDW 16.5 11.5 - 01/29 [facility] 16.[address] [place] [address] CBC Plt 220 130 - 400 01/29 [facility] [address] [place] [address] CBC CBC Scan Scan/Morph 01/29 [facility] (01/29/21 8:31 AM) /2020 [facility] CBC Neuts 72.5 35.0 - 01/29 [facility] 80.[address] [place] [address] CBC Lymphs 11.4 10.0 - 01/29 [facility] 55.[address] [place] [address] CBC Monos. 12.2 0.0 - 15.0 01/29 [facility] [address] [place] [address] CBC Eos. 2.6 0.0 - 9.0 01/29 [facility] [address] [place] [address] CBC Baso. 1.3 0.0 - 3.0 01/29 [facility] [address] [place] [address] CBC ABS Neut 2.4 1.7 - 8.6 01/29 [facility] [address] [place] [address] CBC ABS Lymph 0.4 0.5 - 5.9 01/29 [facility] [address] [place] [address] CBC ABS [place] 0.4 0.0 - 1.6 01/29 [facility] [address] [place] [address] CBC ABS Eos 0.1 0.0 - 1.0 01/29 [facility] [address] [place] [address] CBC ABS Baso 0.0 0.0 - 0.3 01/29 [facility] /2020 [facility] CBC RBC Morph See Morphology 01/29 [facility] (01/29/21 8:31 AM) /2020 [facility] CBC Plt Est Adequate 01/29 [facility] (01/29/21 8:31 AM) /2020 [facility] CBC Anisocytosis 2+ 01/29 [facility] (01/29/21 8:31 AM) /2020 [facility] CBC Poikilocytos 2+ 01/29 [facility] (01/29/21 8:31 AM) /2020 [facility] CBC Polychromasi 1+ 01/29 [facility] (01/29/21 8:31 AM) /2020 [facility] CBC Macrocytes 3+ 01/29 [facility] (01/29/21 8:31 AM) /2020 [facility] CBC Ovalocytes 1+ 01/29 [facility] (01/29/21 8:31 AM) /2020 [facility] CBC Fragmented 1+ 01/[address] [facility] RBC *ABN* /2020 [place] (Schistocyte (01/29/21 8:31 AM) M edical s) [place] CBC Teardrop 1+ 01/29 [facility] Cell (01/29/21 8:31 AM) /2020 [facility] General Glucose 98 83 - 110 01/29 [facility] Chemistry Level /2020 [facility] General BUN 16 10 - 20 01/[address] [facility] Chemistry /2020 [facility] General Creatinine 0.85 0.57 - 01/29 [facility] Chemistry 1.25 /2020 [facility] General eGFR >60 01/29 [facility] Chemistry Non- /2020 [facility] General eGFR >60 01/29 [facility] Chemistry Afr/Amer /2020 [facility] General Sodium 137 136 - 145 01/[address] [facility] Chemistry /2020 [facility] General Potassium 4.0 3.5 - 5.1 01/29 [facility] Chemistry /2020 [facility] General Chloride 103 98 - 107 01/29 [facility] Chemistry /2020 [facility] General CO2 24 23 - 31 01/29 [facility] Chemistry /2020 [facility] General Anion Gap 14 10 - 20 01/29 [facility] Chemistry /2020 [facility] General Calcium 9.0 8.4 - 10.2 01/29 [facility] Chemistry [facility] BMP Sodium 133 134 - 144 06/02 L [place] (Basic) [facility] BMP Potassium 4.1 3.5 - 5.1 06/02 [place] (Basic) [facility] BMP Chloride 101 98 - 107 06/02 [place] (Basic) [facility] BMP CO2 26 23 - 31 06/02 [place] (Basic) [facility] BMP Glucose 101 70 - 99 08/30 [facility] [place] [employer] (ADA) Guidelines: [place] (Basic) Level /2019 Optimal fa sting blood glucose is below 100 mg/dL. A person with pre-diabetes has a fasting blood glucose of 100-125. [facility] BMP BUN 13 10 - 20 06/02 [place] (Basic) [facility] BMP Creatinine 0.63 0.57 - 06/02 Result is ID-GC/MS st andardized [facility] (Basic) 1. [facility] BMP Calcium 8.0 8.4 - 10.2 06/02 L [place] (Basic) [facility] BMP Anion Gap 10 5 - 15 06/02 [place] (Basic) [facility] BMP eGFR >60 30 NA NORMALIZED FOR ID-GC/MS STANDARDIZED CREATININE [place] (Basic) Non- (NON-AF AMR=NON-, AF AMR=) Regional Am KIDNEY DAMAGE STAGES [facility] STAGE 1 and 2 >60 mL/min /1.73 square meters STAGE 3 30-59 mL/min/1.7 3 square meters STAGE 4 15-29 mL/min/1.7 3 square meters STAGE 5 <14 mL/min/1.73 square meters BMP eGFR >60 08/30 NA NORMALIZED FOR ID-GC/MS STANDARDIZED CREATININE [place] (Basic) Afr/Amer (NON-AF AM R=NON-, AF AMR=) Regional KIDNEY DAMAGE STAGES [facility] Medical Center STAGE 1 and 2 >60 mL/min /1.73 square meters STAGE 3 30-59 mL/min/1.7 3 square meters STAGE 4 15-29 mL/min/1.7 3 square meters STAGE 5 <14 mL/min/1.73 square meters BMP Drug Calc 63.400 06/02 [place] (Basic) Weight (kg) [facility] BMP Height (cm) 165.100 06/02 [place] (Basic) Unless david chavira noted, tests performed at the following location: [facility] CBC w/Diff WBC 5.5 4.8 - 10.8 06/02 [facility] CBC w/Diff RBC 2.83 4.00 - 08 L [place] 5.40 [facility] CBC w/Diff Hgb 9.2 11.5 - 0830 L [place] 16.0 [facility] CBC w/Diff Hct 28.2 37.0 - 08 L [place] 47.0 [facility] CBC w/Diff MCV 99.9 80.0 - 06/02 [place] 100.0 [facility] CBC w/Diff MCH 32.7 27.0 - 08 [place] 34.0 [facility] CBC w/Diff MCHC 32.7 32.0 - 08ler 37.0 [facility] CBC w/Diff RDW 15.8 11.5 - 08 [place] 16.0 [facility] CBC w/Diff Plt 159 130 - 400 06/02 [facility] CBC w/Diff Neuts 71.0 35.0 - 06/02ler 80.0 [facility] CBC w/Diff Lymphs 14.9 10.0 - 06/02 [place] 55.0 [facility] CBC w/Diff Monos. 11.2 0.0 - 15.0 06/02 [place] [facility] CBC w/Diff Eos. 2.6 0.0 - 9.0 06/02 [place] [facility] CBC w/Diff Baso. 0.3 0.0 - 3.0 06/02 [facility] CBC w/Diff ABS Neut 3.9 1.7 - 8.6 06/02 [facility] CBC w/Diff ABS Lymph 0.8 0.5 - 5.9 06/02 [place] [facility] CBC w/Diff ABS [place] 0.6 0.0 - 1.6 06/02 [place] [facility] CBC w/Diff ABS Eos 0.1 0.0 - 1.0 06/02 [place] [facility] CBC w/Diff ABS Baso 0.0 0.0 - 0.3 06/02 [place] [facility] CBC w/Diff CBC Scan Auto Diff 06/02 Unless otherwise noted, tests performed at the following location: [facility] PRBC LR Special None 05/31 NA [facility] Re [facility] PRBC LR File Check No 05/3105/31/2020 11:50 ACHU [id number] [place] PRBCs on hold for surge ry [facility] PRBC LR Quantity 2 Units 05/31 NA [place] [facility] PRBC LR Date Needed 05/31/202005/31 [place] [facility] PRBC LR PRBC Surgery/Pr 05/31 NA [place] Indications ocedu Unless o hortenciawise noted, tests performed at the following location: [facility] Spec Chk Spec ID Yes 05/3105/31/2020 11:11 VELVET Ferguson HX checked [facility] Unless otherwise noted, tests performed at the following location: Center ABSC Ab Screen Neg 05/31 [place] Unless oth fan noted, tests performed at the following location: [facility] ABORH Auto ABORH O POS 05/31 --------- Unless otherwise noted, tests performed at the following location: [facility] PT PT 12.5 10.0 - 05/31 H [place] 12. [facility] PT INR 1.09 05/31 NA INR THERAPEUTIC RANGE: C Use of the INR should be limited to therapeutic monitoring Regional of patients on stable lo ng-term warfarin therapy. Medical Prophylaxis/treatment of venous thromboembolism .. INR 2-3 Center Prophylaxis/treatment of pulmonary embolism .......... INR 2-3 Prevention of systemic e mbolism from atrial fibrillation, myocardial infarction, t issue heart valves, valvular heart disease, and recurrent s ystemic embolism .................INR 2-3 Prevention of systemic e mbolism from mechanical prosthetic heart valv es ................................. ............................INR 2.5-3.5 Unless otherwise noted, tests performed at the following location: Blood Bank Interp ABORH O POS 05/31 [facility] Blood Bank Ab Screen Neg 05/31 [place] (05/31/20 9:45 AM) [facility] Type/Scree File Check No 05/31 [place] floyd (RN-O) [facility] Type/Scree Test Wanted ABORH 05/31 [place] floyd (RN-O) Au/ Unless ot herwise noted, tests performed at the following location: Regional w/Flex [facility] COVID19 COVID19 Nasal 05/26 [place] NonPUI Source washing [facility] COVID19 COVID19/SARS Negative Negative 05/26 The Apt karolina SARS-CoV-2 Assay, is a qualitative test used for the detection of nucleic acids from SARS-CoV-2 extracted from nasal pharyngeal swabs, throat swabs, nasal and bronchial washes. Negative test [facility] NonPUI -CoV-2 results y occur in spite of active virus infection. This test was developed by [employer]. and its analytical performance characteristics have been validated by the Molecular Medicine Laboratory, [facility] pursuant to CLIA regulations. This test has EUA authorization from the Food and Drug Administration ([employer] SARS-CoV-2 Assay on the [place]). 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
Negative Medical (05/24/20 3:30 PM)
C enter Cocci Cocci IgG Negative Negative 12/15 Specimens with Positive results for Cocci IgG will be sent to reference laboratory for Cocci Comp Fix Testing. Additional testing may be requested if clinically indicated. [facility] IgM/IgG Specimens with Positive results for Cocci IgM will be sent to Reference Laboratory for Immunodiffusion Testing. Results may not correlate between EIA and Immunodiffusion due to difference in methodology [facility] w[facility] health system . Additional testing may be requested if clinically indicated. Medical It is charles mmended that a new specimen be obtained and retested in 2-3 weeks for a specimen with an indeterminate result. [place] Cocci Cocci IgM Negative Negative 12/15 Specimens with Positive results for Cocci IgG will be sent to reference laboratory for Cocci Comp Fix Testing. Additional testing may be requested if clinically indicated. [facility] IgM/IgG Specimens with Positive results for Cocci IgM will be sent to Reference Laboratory for Immunodiffusion Testing. Results may not correlate between EIA and Immunodiffusion due to difference in methodology [facility] w/[facility] health system . Additional testing may be requested if clinically indicated. Medical It is charles mmended that a new specimen be obtained and retested in 2-3 weeks for a specimen with an indeterminate result. Center Unless otherwise noted, tests performed at the following location: [facility] Sodium 137 134 - 144 12/15 [place] (Basic) [facility] BMP Potassium 4.0 3.5 - 5.1 12/15 [place] (Basic) [facility] BMP Chloride 103 98 - 107 12/15 [facility] (Basic) [facility] BMP CO2 26 23 - 31 12/15 [facility] (Basic) /2019 [facility] Glucose 114 70 - 99 12/15 [facility] [place] [employer] (ADA) Guidelines: [facility] (Basic) /2019 Optimal fa sting blood glucose is below 100 mg/dL. A person with pre-diabetes has a fasting blood glucose of 100-125. [facility] BUN 8 10 - 20 12/15 L [facility] (Basic) /2019 [facility] Creatinine 0.63 0.57 - 12/15 Result is ID-GC/MS st andardized [facility] (Basic) 1.11 [facility] BMP Calcium 8.5 8.4 - 10.2 12/15 [place] (Basic) /2019 [facility] BMP Anion Gap 12 5 - 15 12/15 [place] (Basic) [facility] BMP eGFR >60 12/15 NA NORMALIZED FOR ID-GC/MS STANDARDIZED CREATININE [place] (Basic) Non- (NON-AF AMR=NON-, AF AMR=) Regional Am KIDNEY DAMAGE STAGES FRO M [facility] KIDNEY [facility] Center STAGE 1 and 2 >60 mL/min /1.73 square meters STAGE 3 30-59 mL/min/1.7 3 square meters STAGE 4 15-29 mL/min/1.7 3 square meters STAGE 5 <14 mL/min/1.73 square meters BMP eGFR >60 12/15 NA NORMALIZED FOR ID-GC/MS STANDARDIZED CREATININE [place] (Basic) Afr/Amer (NON-AF AM R=NON-, AF AMR=) Regional KIDNEY DAMAGE STAGES FRO M [facility] KIDNEY [facility] Center STAGE 1 and 2 >60 mL/min /1.73 square meters STAGE 3 30-59 mL/min/1.7 3 square meters STAGE 4 15-29 mL/min/1.7 3 square meters STAGE 5 <14 mL/min/1.73 square meters BMP Drug Calc 73.100 12/15 [place] (Basic) Weight (kg) [facility] BMP Height (cm) 167.600 12/15 [place] (Basic) Unless david chavira noted, tests performed at the following location: [facility] CBC w/Diff WBC 9.1 4.8 - 10.8 03 [facility] [address] [place] [address] CBC w/Diff RBC 3.09 4.00 - 12/15 L [place] 5.40 /2019 [facility] CBC w/Diff Hgb 9.4 11.5 - 03 L [facility] 16.0 [facility] CBC w/Diff Hct 28.3 37.0 - 03 L [facility] 47.0 [facility] CBC w/Diff MCV 91.4 80.0 - 12/15 [place] 100.0 [facility] CBC w/Diff MCH 30.4 27.0 - 03 [facility] 34.0 [facility] CBC w/Diff MCHC 33.2 32.0 - 12/15 [facility] 37.0 [facility] CBC w/Diff RDW 15.2 11.5 - 12/15 [facility] 16.0 [facility] CBC w/Diff Plt 297 130 - 400 12/[address] CBC w/Diff Neuts 88.8 35.0 - 12/15 H [facility] 80.0 [facility] CBC w/Diff Lymphs 4.8 10.0 - 03 L [facility] 55.0 [facility] CBC w/Diff Monos. 5.6 0.0 - 15.0 12/[address] CBC w/Diff Eos. 0.3 0.0 - 9.0 12/[address] CBC w/Diff Baso. 0.5 0.0 - 3.0 12/15 [facility] [address] [place] [address] CBC w/Diff ABS Neut 8.1 1.7 - 8.6 12/[address] CBC w/Diff ABS Lymph 0.4 0.5 - 5.9 12/[address] CBC w/Diff ABS [place] 0.5 0.0 - 1.6 12/[address] CBC w/Diff ABS Eos 0.0 0.0 - 1.0 12/[address] CBC w/Diff ABS Baso 0.0 0.0 - 0.3 12/15 [facility] CBC w/Diff CBC Scan Auto Diff 12/15 Unless otherwise noted, tests performed at the following location: Regional [facility] PT PT 27.0 10.0 - 12/15 H 09.05 [facility] PT INR 2.37 12/15 NA INR THERAPEUTIC RANGE: C Use of the INR should be limited to therapeutic monitoring Regional of patients on stable lo ng-term warfarin therapy. Medical Prophylaxis/treatment of venous thromboembolism .. INR 2-3 Center Prophylaxis/treatment of pulmonary embolism .......... INR 2-3 Prevention of systemic e mbolism from atrial fibrillation, myocardial infarction, t issue heart valves, valvular heart disease, and recurrent s ystemic embolism .................INR 2-3 Prevention of systemic e mbolism from mechanical prosthetic heart valv es ................................. ............................INR 2.5-3.5 Unless otherwise noted, tests performed at the following location: CBC CBC Scan Auto Diff 12/15 [place] (12/16/19 2:54 AM) [facility] CBC WBC 9.1 4.8 - 10.8 03 [facility] [address] [place] [address] CBC RBC 3.09 4.00 - 12/15 [facility] 5.40 [facility] CBC Hgb 9.4 11.5 - 12/15 [facility] 16.0 [facility] CBC Hct 28.3 37.0 - 12/15 [facility] 47.0 [facility] CBC MCV 91.4 80.0 - 12/15 [place] 100.0 [facility] CBC MCH 30.4 27.0 - 12/15 [facility] 34.0 [facility] CBC MCHC 33.2 32.0 - 12/15 [facility] 37.0 [facility] CBC RDW 15.2 11.5 - 12/15 [facility] 16.0 [facility] CBC Plt 297 130 - 400 12/[address] CBC Neuts 88.8 35.0 - 12/15 [facility] 80.0 [facility] CBC Lymphs 4.8 10.0 - 12/15 [place] 55.0 [facility] CBC Monos. 5.6 0.0 - 15.0 12/[address] CBC Eos. 0.3 0.0 - 9.0 12/[address] CBC Baso. 0.5 0.0 - 3.0 12/[address] CBC ABS Neut 8.1 1.7 - 8.6 12/[address] CBC ABS Lymph 0.4 0.5 - 5.9 12/[address] CBC ABS [place] 0.5 0.0 - 1.6 12/[address] CBC ABS Eos 0.0 0.0 - 1.0 12/[address] CBC ABS Baso 0.0 0.0 - 0.3 12/[address] General eGFR >60 12/15 [facility] Chemistry Non- /2019 [facility] General Glucose 114 70 - 99 12/15 [facility] Chemistry Level /[address] [place] [address] General BUN 8 10 - 20 12/15 [facility] Chemistry /[address] [place] [address] General Creatinine 0.63 0.57 - 03 [facility] Chemistry 1.11 [facility] General Sodium 137 134 - 144 12/15 [facility] Chemistry [facility] General Potassium 4.0 3.5 - 5.1 12/15 [facility] Chemistry [facility] General Chloride 103 98 - 107 12/15 [facility] Chemistry [facility] General CO2 26 23 - 31 12/15 [facility] Chemistry [facility] General Calcium 8.5 8.4 - 10.2 12/15 [facility] Chemistry [facility] General Anion Gap 12 5 - 15 12/15 [facility] Chemistry [facility] General eGFR >60 12/15 [facility] Chemistry Afr/Amer [facility] Serology/I Cocci IgM Negative Negative 12/15 [facility] mmunology (12/16/19 2:54 AM) [facility] Serology/I Cocci IgG Negative Negative 12/15 [facility] mmunology (12/16/19 2:54 AM) [facility] CBC w/Diff WBC 9.4 4.8 - 10.8 12/14 [facility] CBC w/Diff RBC 2.95 4.00 - 12/14 L [place] 5.40 /2019 [facility] CBC w/Diff Hgb 9.0 11.5 - 12/14 L [place] 16.0 [facility] CBC w/Diff Hct 27.4 37.0 - 12/14 L [place] 47.0 [facility] CBC w/Diff MCV 93.1 80.0 - 12/14 [place] 100.0 [facility] CBC w/Diff MCH 30.6 27.0 - 12/14 [place] 34.0 [facility] CBC w/Diff MCHC 32.8 32.0 - 12/14 [place] 37.0 [facility] CBC w/Diff RDW 15.1 11.5 - 12/14 [place] 16.0 [facility] CBC w/Diff Plt 273 130 - 400 12/14 [facility] CBC w/Diff Neuts 73.3 35.0 - 12/14 [place] 80.0 [facility] CBC w/Diff Lymphs 9.7 10.0 - 12/14 L [place] 55.0 [facility] CBC w/Diff Monos. 15.0 0.0 - 15.0 12/14 [facility] CBC w/Diff Eos. 1.3 0.0 - 9.0 12/14 [facility] CBC w/Diff Baso. 0.7 0.0 - 3.0 12/14 [facility] CBC w/Diff ABS Neut 6.9 1.7 - 8.6 12/14 [facility] CBC w/Diff ABS Lymph 0.9 0.5 - 5.9 12/14 [facility] CBC w/Diff ABS [place] 1.4 0.0 - 1.6 12/14 [facility] CBC w/Diff ABS Eos 0.1 0.0 - 1.0 12/14 [place] [facility] CBC w/Diff ABS Baso 0.1 0.0 - 0.3 12/14 [place] [facility] CBC w/Diff CBC Scan Auto Diff 12/14 Unless otherwise noted, tests performed at the following location: [facility] BMP Sodium 137 134 - 144 12/[place] (Basic) [facility] BMP Potassium 3.7 3.5 - 5.1 12/14 (Basic) [facility] BMP Chloride 101 98 - 107 12/14 (Basic) [facility] BMP CO2 28 23 - 31 12/14 [facility] (Basic) [facility] BMP Glucose 107 70 - 99 12/14 [facility] [place] [employer] (ADA) Guidelines: [place] (Basic) Optimal fa sting blood glucose is below 100 mg/dL. A person with pre-diabetes has a fasting blood glucose of 100-125. [facility] BMP BUN 8 10 - 20 12/14 L [place] (Basic) [facility] BMP Creatinine 0.68 0.57 - 12/14 Result is ID-GC/MS st andardized [place] (Basic) 1.11 [facility] BMP Calcium 8.3 8.4 - 10.2 12/14 L [place] (Basic) [facility] BMP Anion Gap 12 5 - 15 12/14 [place] (Basic) [facility] BMP eGFR >60 12/14 NA NORMALIZED FOR ID-GC/MS STANDARDIZED CREATININE [facility] [place] (Basic) Non- (NON-AF AMR=NON-, AF AMR=) Regional Am KIDNEY DAMAGE STAGES FRO M [facility] KIDNEY [facility] Center STAGE 1 and 2 >60 mL/min /1.73 square meters STAGE 3 30-59 mL/min/1.7 3 square meters STAGE 4 15-29 mL/min/1.7 3 square meters STAGE 5 <14 mL/min/1.73 square meters BMP eGFR >60 12/14 NA NORMALIZED FOR ID-GC/MS STANDARDIZED CREATININE [facility] (Basic) Afr/Amer (NON-AF AM R=NON-, AF AMR=) Regional KIDNEY DAMAGE STAGES FRO M [facility] KIDNEY [facility] Center STAGE 1 and 2 >60 mL/min /1.73 square meters STAGE 3 30-59 mL/min/1.7 3 square meters STAGE 4 15-29 mL/min/1.7 3 square meters STAGE 5 <14 mL/min/1.73 square meters [facility] Drug Calc 73.100 12/14 [place] (Basic) Weight (kg) [facility] BMP Height (cm) 167.600 12/14 [place] (Basic) Unless oth erwise noted, tests performed at the following location: [facility] [place] PT PT 22.1 10.0 - 12/14 H [place] 12.3 [facility] PT INR 1.94 12/14 NA INR THERAPEUTIC RANGE: C handler Use of the INR should be limited to therapeutic monitoring Regional of patients on stable lo ng-term warfarin therapy. Medical Prophylaxis/treatment of venous thromboembolism .. INR 2-3 Center Prophylaxis/treatment of pulmonary embolism .......... INR 2-3 Prevention of systemic e mbolism from atrial fibrillation, myocardial infarction, t issue heart valves, valvular heart disease, and recurrent s ystemic embolism .................INR 2-3 Prevention of systemic e mbolism from mechanical prosthetic heart valv es ................................. ............................INR 2.5-3.5 Unless otherwise noted, tests performed at the following location: CBC CBC Scan Auto Diff 12/14 [place] (12/15/19 4:27 AM) [facility] CBC WBC 9.4 4.8 - 10.8 12/14 [facility] CBC RBC 2.95 4.00 - 12/14 [place] 5.40 [facility] CBC Hgb 9.0 11.5 - 12/14 [place] 16.0 [facility] CBC Hct 27.4 37.0 - 12/14 [place] 47.0 [facility] CBC MCV 93.1 80.0 - 03 [place] 100.0 [facility] CBC MCH 30.6 27.0 - 03 [place] 34.0 [facility] CBC MCHC 32.8 32.0 - 12/14 [place] 37.0 [facility] CBC RDW 15.1 11.5 - 12/14 [place] 16.0 [facility] CBC Plt 273 130 - 400 03 [place] [facility] CBC Neuts 73.3 35.0 - 03 [place] 80.0 [facility] CBC Lymphs 9.7 10.0 - 12/14 [place] 55.0 [facility] CBC Monos. 15.0 0.0 - 15.0 12/14 [facility] [address] [place] [address] CBC Eos. 1.3 0.0 - 9.0 12/14 [facility] [address] [place] [address] CBC Baso. 0.7 0.0 - 3.0 12/14 [facility] [address] [place] [address] CBC ABS Neut 6.9 1.7 - 8.6 12/14 [place] [facility] CBC ABS Lymph 0.9 0.5 - 5.9 12/14 [facility] [address] [place] [address] CBC ABS [place] 1.4 0.0 - 1.6 12/14 [facility] [address] [place] [address] CBC ABS Eos 0.1 0.0 - 1.0 12/14 [facility] [address] [place] [address] CBC ABS Baso 0.1 0.0 - 0.3 12/14 [facility] [address] [place] [address] General Glucose 107 70 - 99 12/14 [facility] Chemistry Level [facility] General BUN 8 10 - 20 12/14 [facility] Chemistry [facility] General Creatinine 0.68 0.57 - 03 [facility] Chemistry 1.11 [facility] General Sodium 137 134 - 144 12/14 [facility] Chemistry [address] [place] [address] General Potassium 3.7 3.5 - 5.1 12/14 [facility] [address] [place] [address] General Chloride 101 98 - 107 03 [facility] [address] [place] [address] General CO2 28 23 - 31 03 [facility] [address] [place] [address] General Calcium 8.3 8.4 - 10.2 12/14 [facility] Chemistry /[address] [place] [address] General Anion Gap 12 5 - 15 12/14 [facility] Chemistry [facility] General eGFR >60 12/14 [facility] Chemistry Non- [facility] General eGFR >60 12/14 [facility] Chemistry Afr/Amer [facility] BMP Sodium 137 134 - 144 12/13 [facility] (Basic) [facility] BMP Potassium 3.3 3.5 - 5.1 12/13 L [facility] (Basic) [facility] BMP Chloride 99 98 - 107 12/13 [facility] (Basic) [facility] BMP CO2 27 23 - 31 12/13 [facility] (Basic) [facility] BMP Glucose 102 70 - 99 12/13 [facility] [place] [employer] (ADA) Guidelines: [facility] (Basic) Level Optimal fa sting blood glucose is below 100 mg/dL. A person with pre-diabetes has a fasting blood glucose of 100-125. [facility] BMP BUN 10 10 - 20 12/13 [facility] (Basic) [facility] BMP Creatinine 0.78 0.57 - 12/13 Result is ID-GC/MS st andardized [facility] (Basic) 1.11 [facility] BMP Calcium 8.4 8.4 - 10.2 12/13 [facility] (Basic) [facility] BMP Anion Gap 14 5 - 15 12/13 [facility] (Basic) [address] [place] [address] BMP eGFR >60 12/13 NA NORMALIZED FOR ID-GC/MS STANDARDIZED CREATININE [facility] (Basic) Non- (NON-AF AMR=NON-, AF AMR=) [facility] STAGE 1 and 2 >60 mL/min /1.73 square meters STAGE 3 30-59 mL/min/1.7 3 square meters STAGE 4 15-29 mL/min/1.7 3 square meters STAGE 5 <14 mL/min/1.73 square meters BMP eGFR >60 12/13 NA NORMALIZED FOR ID-GC/MS STANDARDIZED CREATININE [facility] (Basic) Afr/Amer (NON-AF AM R=NON-, AF AMR=) [facility] KIDNEY DAMAGE STAGES FRO M [facility] Medical Center STAGE 1 and 2 >60 mL/min /1.73 square meters STAGE 3 30-59 mL/min/1.7 3 square meters STAGE 4 15-29 mL/min/1.7 3 square meters STAGE 5 <14 mL/min/1.73 square meters BMP Drug Calc 73.100 12/13 [place] (Basic) Weight (kg) [facility] BMP Height (cm) 167.600 12/13 [place] ([facility]) Unless david chavira noted, tests performed at the following location: Regional [facility] PT PT 20.5 10.0 - 12/13 H [place] 12. [facility] PT INR 1.80 12/13 NA INR THERAPEUTIC RANGE: C handler Use of the INR should be limited to therapeutic monitoring Regional of patients on stable lo ng-term warfarin therapy. Medical Prophylaxis/treatment of venous thromboembolism .. INR 2-3 Center Prophylaxis/treatment of pulmonary embolism .......... INR 2-3 Prevention of systemic e mbolism from atrial fibrillation, myocardial infarction, t issue heart valves, valvular heart disease, and recurrent s ystemic embolism .................INR 2-3 Prevention of systemic e mbolism from mechanical prosthetic heart valv es ................................. ............................INR 2.5-3.5 Unless otherwise noted, tests performed at the following location: CBC w/Diff WBC 11.5 4.8 - 10.8 03/ H [facility] CBC w/Diff RBC 3.36 4.00 - 12/13 L [place] 5.40 /2019 [facility] CBC w/Diff Hgb 9.9 11.5 - 03 L [place] 16.0 [facility] CBC w/Diff Hct 30.5 37.0 - 03 L [place] 47.0 [facility] CBC w/Diff MCV 90.9 80.0 - 12/13 [place] 100.0 [facility] CBC w/Diff MCH 29.5 27.0 - 03 [place] 34.0 [facility] CBC w/Diff MCHC 32.5 32.0 - 12/13ler 37.0 [facility] CBC w/Diff RDW 15.4 11.5 - 03 [place] 16.0 [facility] CBC w/Diff Plt 300 130 - 400 03 [facility] CBC w/Diff Neuts 77.3 35.0 - 12/13 [place] 80.0 [facility] CBC w/Diff Lymphs 7.2 10.0 - 0312 L [place] 55.0 [facility] CBC w/Diff Monos. 14.4 0.0 - 15.0 12/13 [facility] CBC w/Diff Eos. 0.6 0.0 - 9.0 12/13 [facility] CBC w/Diff Baso. 0.5 0.0 - 3.0 12/13 [facility] CBC w/Diff ABS Neut 8.9 1.7 - 8.6 12/13 H [facility] CBC w/Diff ABS Lymph 0.8 0.5 - 5.9 12/13 [facility] CBC w/Diff ABS [place] 1.6 0.0 - 1.6 12/13 [facility] CBC w/Diff ABS Eos 0.1 0.0 - 1.0 12/13 [facility] CBC w/Diff ABS Baso 0.1 0.0 - 0.3 12/13 [facility] CBC w/Diff CBC Scan Auto Diff 12/13 Unless otherwise noted, tests performed at the following location: [facility] CBC Scan Auto Diff 12/13 (12/14/19 8:34 AM) [facility] CBC WBC 11.5 4.8 - 10.8 12/13 [facility] CBC RBC 3.36 4.00 - 12/13 5.40 [facility] CBC Hgb 9.9 11.5 - 12/13 16.0 [facility] CBC Hct 30.5 37.0 - 12/13 [place] 47.0 [facility] CBC MCV 90.9 80.0 - 12/13 100.0 [facility] CBC MCH 29.5 27.0 - 12/13ler 34.0 [facility] CBC MCHC 32.5 32.0 - 12/13 37.0 [facility] CBC RDW 15.4 11.5 - 12/13 16.0 [facility] CBC Plt 300 130 - 400 12/13 [facility] CBC Neuts 77.3 35.0 - 12/13 [place] 80.0 [facility] CBC Lymphs 7.2 10.0 - 03 [place] 55.0 [facility] CBC Monos. 14.4 0.0 - 15.0 12/13 [facility] [address] [place] [address] CBC Eos. 0.6 0.0 - 9.0 12/13 [facility] [address] [place] [address] CBC Baso. 0.5 0.0 - 3.0 12/[address] CBC ABS Neut 8.9 1.7 - 8.6 12/13 [facility]2019 [facility] CBC ABS Lymph 0.8 0.5 - 5.9 12/13 [facility] CBC ABS [place] 1.6 0.0 - 1.6 12/13 [facility]2019 [facility] CBC ABS Eos 0.1 0.0 - 1.0 12/13 [facility] CBC ABS Baso 0.1 0.0 - 0.3 12/13 [facility] [address] [place] [address] General Glucose 102 70 - 99 12/13 [facility] Chemistry Level [facility] General BUN 10 10 - 20 12/13 [facility] Chemistry [address] [place] [address] General Creatinine 0.78 0.57 - 12/13 [facility] Chemistry 1.11 [facility] General Sodium 137 134 - 144 12/13 [facility] Chemistry [address] General Potassium 3.3 3.5 - 5.1 12/13 [facility] Chemistry [address] [place] [address] General Chloride 99 98 - 107 12/13 [facility] Chemistry [address] [place] [address] General CO2 27 23 - 31 12/[address] General Calcium 8.4 8.4 - 10.2 12/13 [facility] Chemistry [address] [place] [address] General Anion Gap 14 5 - 15 12/13 [facility] [address] [place] [address] General eGFR >60 12/13 [facility] Chemistry Non- /2019 [facility] General eGFR >60 12/13 [facility] Chemistry Afr/Amer [address] [place] [address] UA Appearance CLOUDY Clear 12/13 ABN [facility] RfMicCIF [facility] UA Color YELLOW Yellow 12/13 [facility] RfMicCIF [address] [place] [address] UA Specific 1.043 1.008 - 12/13 H [facility] RfMicCIF [place] 1.020 [facility] UA UpH 6.0 5.0 - 8.0 12/13 [facility] RfMicCIF [facility] UA UBlood 2+ Negative 12/13 ABN [place] RfMicCIF [facility] UA UBilirubin NEG Negative 12/13 [place] RfMicCIF [facility] UA UGlucose NEG Negative 12/13 [facility] RfMicCIF [facility] UA UKetones NEG Negative 12/13 [facility] RfMicCIF [facility] UA ULeukocyte 3+ Negative 12/13 ABN [facility] RfMicCIF [facility] UA UNitrite NEG Negative 12/13 [facility] RfMicCI [facility] UA UProtein 1+ Negative 12/13 ABN [facility] RfMicCIF [facility] UA Urine Culture 12/13 NA Urine Cult ure reflexed as one or more of the following conditions exist: [facility] RfMicCIF Culture if Blood WBC <= 0.4 Re gional Indicated Patient Age < 2 Medic al UA Blood is 3+ or Large Center UA WBC >= 10 Unless otherwise noted, tests performed at the following location: UA URBC 11-40 0-4 12/13 ABN [place] Microscopi [facility] UA Urine WBCs >150 None 12/13 ABN [place] Microscopi [facility] UA UA Squam 0-10 0-10 12/13 NA [place] Microscopi Epithelial [facility] UA UMucous RARE 12/13 ABN [facility] Microscopi [facility] UA UA WBC PRESENT 12/13 ABN [place] Microscopi Clumps Unless ot herwise noted, tests performed at the following location: [facility] Urinalysis URBC 11-40 per 0 - 4 12/13 [place] HPF [facility] Urinalysis Urine WBCs >150 per None per 12/13 [place] HPF HPF [facility] Urinalysis UA WBC Present 12/13 [place] Clumps per HPF [facility] Urinalysis UA Squam 0-10 per 0 - 10 12/13 [place] Epithelial HPF [facility] Urinalysis UMucous Rare per 12/13 [place] LPF [facility] Urinalysis Color Yellow Yellow 12/13 [place] (12/13/19 7:51 PM) [facility] Urinalysis Appearance Cloudy Clear 12/13 [place] *ABN* (12/13/19 7:51 PM) [facility] Urinalysis UGlucose Negative Negative 12/13 [place] (12/13/19 7:51 PM) [facility] Urinalysis UBilirubin Negative Negative 12/13 (12/13/19 7:51 PM) [facility] Urinalysis UKetones Negative Negative 12/13 [place] (12/13/19 7:51 PM) [facility] Urinalysis Specific 1.043 1.008 - 12/13 [place] 1.020 [facility] Urinalysis UBlood 2+ Negative 12/13 [place] *ABN* (12/13/19 7:51 PM) [facility] Urinalysis UpH 6.0 5.0 - 8.0 12/13 [facility] Urinalysis UProtein 1+ Negative 12/13 [place] *ABN* (12/13/19 7:51 PM) [facility] Urinalysis UNitrite Negative Negative 12/13 [place] (12/13/19 7:51 PM) [facility] Urinalysis ULeukocyte 3+ Negative 12/13 [place] Esterase *ABN* (12/13/19 7:51 PM) [facility] Urinalysis UCIF Yes/No Culture Ordered 3 12/13 Result Comment: Urine Culture reflexed as one or more of the following conditions exist: [place] *NA* Blood WBC <= 0.4 Region al (12/13/19 7:51 PM) Patient Age < 2 Medical UA Blood is 3+ or Large Center UA WBC >= 10 Urine Cult Urine Cult 12/13 Lalo rodriges Final: Regional Multi-drug re sistant organism 10,000-49,000 CFU/mL ESBL- Escherichia coli Unusual resistance: Highly Transmissable. This organism produces an extended spectrum beta Lactamase (ESBL) and is Medical resistant to all Pen icillins, first, second and third generation Cephalosporins and Aztreonam. Consider Infectious Disease Consult. Results called to and read back by: VASQUEZ Cote 12/15/2019 13:12:23 [place] ORGANISM: EC ESBL Culture Culture Multi-drug resistant organism 12/02 2 [facility] Urine Urine 10,000-49,000 CFU/mL ESBL-Escherichia coli [facility] Unusual resistance: Highly Transmissable. Medical This organism produc es an extended spectrum beta Lactamase (ESBL) and is resistant to all Penicillins, first, second and third generation Cephalosporins and Aztreonam. Center Consider Infectious Disease Consult. Results called to an d read back by: VASQUEZ Cote 12/15/2019 13:12:23
Multi-drug resistant organism 10,000-49,000 CFU/mL ESBL-Escherichia coli Unusual resistance: Highly Transmissable. This organism produc es an extended spectrum beta Lactamase (ESBL) and is resistant to all Penicillins, first, second and third generation Cephalosporins and Aztreonam. Consider Infectious Disease Consult. Results called to an d read back by: VASQUEZ Cote 12/15/2019 13:12:23
ESBL- Escherichia coli
ESBL-Escherichia coli
Asymptomatic bacteriuria is not an indication for antimicrobial treatment. When performed, MONSE values are reported in mcg/ml.
BMP Sodium 134 134 - 144 12/12 [facility] (Basic) [facility] BMP Potassium 3.5 3.5 - 5.1 12/12 [facility] (Basic) [facility] BMP Chloride 98 98 - 107 12/12 [facility] (Basic) [facility] BMP CO2 26 23 - 31 12/12 [facility] (Basic) [facility] BMP Glucose 129 70 - 99 12/12 [facility] [place] [employer] (ADA) Guidelines: [facility] (Basic) Optimal fa sting blood glucose is below 100 mg/dL. A person with pre-diabetes has a fasting blood glucose of 100-125. [facility] BMP BUN 9 10 - 20 12/12 L [facility] ([facility]) [facility] BMP Creatinine 0.78 0.57 - 12/12 Result is ID-GC/MS st andardized [facility] ([facility]) 1. [facility] BMP Calcium 8.3 8.4 - 10.2 12/12 L [facility] ([facility]) [facility] BMP Anion Gap 14 5 - 15 12/12 [facility] (Basic) [facility] BMP eGFR >60 12/12 NA NORMALIZED FOR ID-GC/MS STANDARDIZED CREATININE [facility] ([facility]) Non- (NON-AF AMR=NON-, AF AMR=) Regional Am KIDNEY DAMAGE STAGES [facility] Center STAGE 1 and 2 >60 mL/min /1.73 square meters STAGE 3 30-59 mL/min/1.7 3 square meters STAGE 4 15-29 mL/min/1.7 3 square meters STAGE 5 <14 mL/min/1.73 square meters BMP eGFR >60 12/12 NA NORMALIZED FOR ID-GC/MS STANDARDIZED CREATININE [facility] (Basic) Afr/Amer (NON-AF AM R=NON-, AF AMR=) Regional KIDNEY DAMAGE STAGES [facility] KIDNEY [facility] [place] STAGE 1 and 2 >60 mL/min /1.73 square meters STAGE 3 30-59 mL/min/1.7 3 square meters STAGE 4 15-29 mL/min/1.7 3 square meters STAGE 5 <14 mL/min/1.73 square meters BMP Drug Calc 73.100 12/12 [place] (Basic) Weight (kg) [facility] Height (cm) 167.600 12/12 [facility] ([facility]) Unless david chavira noted, tests performed at the following location: Regional [facility] General Glucose 129 70 - 99 12/12 [place] Chemistry Level [facility] General BUN 9 10 - 20 12/12 [facility] Chemistry [address] [place] [address] General Creatinine 0.78 0.57 - 12/12 [place] Chemistry 1. [facility] General Sodium 134 134 - 144 12/12 [facility] Chemistry [address] [place] [address] General Potassium 3.5 3.5 - 5.1 12/12 [facility] Chemistry [address] [place] [address] General Chloride 98 98 - 107 12/12 [place] Chemistry 2020 [facility] General CO2 26 23 - 31 12/12 [place] Chemistry 2020 [facility] General Calcium 8.3 8.4 - 10.2 12/12 [place] Chemistry [address] [place] [address] General Anion Gap 14 5 - 15 12/12 [facility] Chemistry 2020 [facility] General eGFR >60 12/12 [place] Chemistry Non- [facility] General eGFR >60 12/12 [place] Chemistry Afr/Amer [address] [place] [address] Lactic Lactic Acid 1.1 0.5 - 2.0 12/12 [facility] Rflx Unless david chavira noted, tests performed at the following location: [facility] Blood Cult Blood Cult 12/12 Lalo rodriges Final: Regional No growth at 5 days. -- Medical Center Culture Culture No growth 12/12 [facility] Blood Blood at Regional days.
N [facility] growth Center at 5 days.
W hen performed, MONSE values are reported in mcg/ml.
General Lactic Acid 1.1 0.5 - 2.0 12/12 [facility] Chemistry [facility] Blood Cult Blood Cult 12/12 Lalo rodriges Final: Regional No growth at 5 days. -- Medical Center Culture Culture No growth 12/12 [facility] Blood Blood at Regional days.
N [facility] o growth Center at 5 days.
W hen performed, MONSE values are reported in mcg/ml.
PT PT 19.3 10.0 - 12/12 H [facility] 12.3 [facility] PT INR 1.69 12/12 NA INR THERAPEUTIC RANGE: C Use of the INR should be limited to therapeutic monitoring Regional of patients on stable lo ng-term warfarin therapy. Medical Prophylaxis/treatment of venous thromboembolism .. INR 2-3 Center Prophylaxis/treatment of pulmonary embolism .......... INR 2-3 Prevention of systemic e mbolism from atrial fibrillation, myocardial infarction, t issue heart valves, valvular heart disease, and recurrent s ystemic embolism .................INR 2-3 Prevention of systemic e mbolism from mechanical prosthetic heart valv es ................................. ............................INR 2.5-3.5 Unless otherwise noted, tests performed at the following location: Hemogram WBC 11.6 4.8 - 10.8 12/12 H [facility] Hemogram RBC 3.30 4.00 - 12/12 L [place] 5.40 [facility] Hemogram Hgb 10.2 11.5 - 12/12 L [place] 16.0 [facility] Hemogram Hct 30.8 37.0 - 12/12 L [place] 47.0 [facility] Hemogram MCV 93.1 80.0 - 12/12 [place] 100.0 [facility] Hemogram MCH 30.8 27.0 - 12/12 [place] 34.0 [facility] Hemogram MCHC 33.1 32.0 - 12/12 [place] 37.0 [facility] Hemogram RDW 14.9 11.5 - 12/12 [place] 16.0 [facility] Hemogram Plt 310 130 - 400 12/12 Unless otherwise noted, tests performed at the following location: [facility] CBC WBC 11.6 4.8 - 10.8 03 [facility] CBC RBC 3.30 4.00 - 12/12 [place] 5.40 /2019 [facility] CBC Hgb 10.2 11.5 - 12/12 [place] 16.0 [facility] CBC Hct 30.8 37.0 - 12/12 [place] 47.0 [facility] CBC MCV 93.1 80.0 - 12/12 [place] 100.0 [facility] CBC MCH 30.8 27.0 - 03 [place] 34.0 [facility] CBC MCHC 33.1 32.0 - 03 [place] 37.0 [facility] CBC RDW 14.9 11.5 - 12/12 [place] 16.0 [facility] CBC Plt 310 130 - 400 12/12 [place] [facility] BMP Sodium 136 134 - 144 12/11 [place] (Basic) [facility] BMP Potassium 3.4 3.5 - 5.1 12/11 L [place] (Basic) [facility] BMP Chloride 100 98 - 107 12/11 [place] (Basic) [facility] BMP CO2 26 23 - 31 12/11 [place] (Basic) [facility] BMP Glucose 110 70 - 99 12/11 [facility] [place] [employer] (ADA) Guidelines: [place] (Basic) Optimal fa sting blood glucose is below 100 mg/dL. A person with pre-diabetes has a fasting blood glucose of 100-125. [facility] BMP BUN 10 10 - 20 12/11 [place] (Basic) [facility] BMP Creatinine 0.69 0.57 - 12/11 Result is ID-GC/MS st andardized [facility] (Basic) 1.11 [facility] BMP Calcium 8.4 8.4 - 10.2 12/11 [place] (Basic) [facility] BMP Anion Gap 13 5 - 15 12/11 [place] (Basic) [facility] BMP eGFR >60 12/11 NA NORMALIZED FOR ID-GC/MS STANDARDIZED CREATININE [place] (Basic) Non- (NON-AF AMR=NON-, AF AMR=) Regional Am KIDNEY DAMAGE STAGES [facility] Center STAGE 1 and 2 >60 mL/min /1.73 square meters STAGE 3 30-59 mL/min/1.7 3 square meters STAGE 4 15-29 mL/min/1.7 3 square meters STAGE 5 <14 mL/min/1.73 square meters BMP eGFR >60 12/11 NA NORMALIZED FOR ID-GC/MS STANDARDIZED CREATININE [place] (Basic) Afr/ (NON-AF AM R=NON-, AF AMR=) Regional KIDNEY DAMAGE STAGES FRO M [facility] Center STAGE 1 and 2 >60 mL/min /1.73 square meters STAGE 3 30-59 mL/min/1.7 3 square meters STAGE 4 15-29 mL/min/1.7 3 square meters STAGE 5 <14 mL/min/1.73 square meters BMP Drug Calc 73.100 12/11 [place] (Basic) Weight (kg) [facility] BMP Height (cm) 167.600 12/11 [place] (Basic) Unless david chavira noted, tests performed at the following location: Regional [facility] General eGFR >60 12/11 [place] Chemistry Non- [facility] General eGFR >60 12/11 [place] Chemistry Afr/Amer [facility] General Glucose 110 70 - 99 12/11 [place] Chemistry Level [facility] General BUN 10 10 - 20 03 Chemistry [facility] General Creatinine 0.69 0.57 - 12/11ler Chemistry 1.11 [facility] General Sodium 136 134 - 144 12/11 [facility] General Potassium 3.4 3.5 - 5.1 12/11 Chemistry [facility] General Chloride 100 98 - 107 03 Chemistry [facility] General CO2 26 23 - 31 12/11 Chemistry [facility] General Calcium 8.4 8.4 - 10.2 12/11 Chemistry [facility] General Anion Gap 13 5 - 15 12/11 Chemistry [facility] Hemogram WBC 11.6 4.8 - 10.8 12/11 H [facility] Hemogram RBC 3.33 4.00 - 12/11 L [place] 5.40 /2019 [facility] Hemogram Hgb 10.2 11.5 - 12/11 L [place] 16.0 [facility] Hemogram Hct 30.1 37.0 - 0310 L [place] 47.0 [facility] Hemogram MCV 90.6 80.0 - 12/11 [place] 100.0 [facility] Hemogram MCH 30.6 27.0 - 12/11 [place] 34.0 [facility] Hemogram MCHC 33.7 32.0 - 12/11 [place] 37.0 [facility] Hemogram RDW 14.9 11.5 - 12/11ler 16.0 [facility] Hemogram Plt 327 130 - 400 12/11 Unless otherwise noted, tests performed at the following location: [facility] Medical [place] PT PT 14.9 10.0 - 12/11 H [place] 12.3 [facility] PT INR 1.31 0310 NA INR THERAPEUTIC RANGE: C Use of the INR should be limited to therapeutic monitoring Regional of patients on stable lo ng-term warfarin therapy. Medical Prophylaxis/treatment of venous thromboembolism .. INR 2-3 Center Prophylaxis/treatment of pulmonary embolism .......... INR 2-3 Prevention of systemic e mbolism from atrial fibrillation, myocardial infarction, t issue heart valves, valvular heart disease, and recurrent s ystemic embolism .................INR 2-3 Prevention of systemic e mbolism from mechanical prosthetic heart valv es ................................. ............................INR 2.5-3.5 Unless otherwise noted, tests performed at the following location: CBC WBC 11.6 4.8 - 10.8 12/11 [facility] CBC RBC 3.33 4.00 - 12/11 [place] 5.40 [facility] CBC Hgb 10.2 11.5 - 12/11ler 16.0 [facility] CBC Hct 30.1 37.0 - 12/11 [place] 47.0 [facility] CBC MCV 90.6 80.0 - 12/11 [place] 100.0 [facility] CBC MCH 30.6 27.0 - 12/11ler 34.0 [facility] CBC MCHC 33.7 32.0 - 12/11 [place] 37.0 [facility] CBC RDW 14.9 11.5 - 12/11 [place] 16.0 [facility] CBC Plt 327 130 - 400 12/11 [facility] Hemogram WBC 12.1 4.8 - 10.8 03/ H [facility] Hemogram RBC 3.45 4.00 - 12/10 L [place] 5.40 /2019 [facility] Hemogram Hgb 10.6 11.5 - / L [place] 16.0 [facility] Hemogram Hct 32.2 37.0 - 12/10 L [place] 47.0 [facility] Hemogram MCV 93.4 80.0 - 12/10 [place] 100.0 [facility] Hemogram MCH 30.7 27.0 - 12/10 [place] 34.0 [facility] Hemogram MCHC 32.9 32.0 - 12/10ler 37.0 [facility] Hemogram RDW 14.6 11.5 - 12/10 16.0 [facility] Hemogram Plt 377 130 - 400 12/10 Unless otherwise noted, tests performed at the following location: Regional [facility] PT PT 13.6 10.0 - 12/10 H 12.3 [facility] PT INR 1.19 12/10 NA INR THERAPEUTIC RANGE: C handler Use of the INR should be limited to therapeutic monitoring Regional of patients on stable lo ng-term warfarin therapy. Medical Prophylaxis/treatment of venous thromboembolism .. INR 2-3 Center Prophylaxis/treatment of pulmonary embolism .......... INR 2-3 Prevention of systemic e mbolism from atrial fibrillation, myocardial infarction, t issue heart valves, valvular heart disease, and recurrent s ystemic embolism .................INR 2-3 Prevention of systemic e mbolism from mechanical prosthetic heart valv es ................................. ............................INR 2.5-3.5 Unless otherwise noted, tests performed at the following location: CBC WBC 12.1 4.8 - 10.8 12/10 [facility] CBC RBC 3.45 4.00 - 12/10 [place] 5.40 [facility] CBC Hgb 10.6 11.5 - 12/10 [place] 16.0 [facility] CBC Hct 32.2 37.0 - 12/10 [place] 47.0 [facility] [facility] CBC MCV 93.4 80.0 - 12/10 [place] 100.0 [facility] CBC MCH 30.7 27.0 - 03 [place] 34.0 [facility] CBC MCHC 32.9 32.0 - 12/10 [place] 37.0 [facility] CBC RDW 14.6 11.5 - 12/10 [place] 16.0 [facility] CBC Plt 377 130 - 400 12/10 [facility] Gluc Glucose 135 70 - 110 03/08 H [employer] Director: [id number] RASHAAD Uriarte (POCT) (POCT) Regional Automated Unless oth erwise noted, tests performed at the following location: [facility] PT PT 15.0 10.0 - 12/09 H [place] 12.3 [facility] PT INR 1.32 12/09 NA INR THERAPEUTIC RANGE: C Use of the INR should be limited to therapeutic monitoring Regional of patients on stable lo ng-term warfarin therapy. Medical Prophylaxis/treatment of venous thromboembolism .. INR 2-3 Center Prophylaxis/treatment of pulmonary embolism .......... INR 2-3 Prevention of systemic e mbolism from atrial fibrillation, myocardial infarction, t issue heart valves, valvular heart disease, and recurrent s ystemic embolism .................INR 2-3 Prevention of systemic e mbolism from mechanical prosthetic heart valv es ................................. ............................INR 2.5-3.5 Unless otherwise noted, tests performed at the following location: Anti-Xa Heparin 0.37 0.30 - 12/09 [place] UFH Anti-Xa, UFH 0.70 Unless otherwise noted, tests performed at the following location: [facility] Center Hemogram WBC 11.0 4.8 - 10.8 12/09 H [facility] Hemogram RBC 3.02 4.00 - 08 L [place] 5.40 [facility] Hemogram Hgb 9.2 11.5 - 12/09 L [place] 16.0 [facility] Hemogram Hct 28.6 37.0 - 12/09 L [place] 47.0 [facility] Hemogram MCV 94.5 80.0 - 12/09ler 100.0 [facility] Hemogram MCH 30.6 27.0 - 12/09ler 34.0 [facility] Hemogram MCHC 32.4 32.0 - 12/09 37.0 [facility] Hemogram RDW 14.8 11. - 12/09 16. [facility] Hemogram Plt 283 130 - 400 12/09 Unless otherwise noted, tests performed at the following location: [facility] CBC WBC 11.0 4.8 - 10.8 12/09 [facility] CBC RBC 3.02 4.00 - 12/09ler .40 [facility] CBC Hgb 9.2 11.5 - 12/09ler 16.0 [facility] CBC Hct 28.6 37.0 - 12/09ler 47.0 [facility] CBC MCV 94.5 80.0 - 12/09ler 100.0 [facility] CBC MCH 30.6 27.0 - 12/09ler 34.0 [facility] CBC MCHC 32.4 32.0 - 12/09 [place] 37.0 [facility] CBC RDW 14.8 11.5 - 12/09 [place] 16.0 [facility] CBC Plt 283 130 - 400 12/09 [facility] Coagulatio Heparin 0.37 0.30 - 12/09 [place] n Anti-Xa, UFH 0. [facility] Anti-Xa Heparin 0.33 0.30 - 12/08 [place] UFH Anti-Xa, UFH 0.70 Unless otherwise noted, tests performed at the following location: [facility] Hemogram WBC 9.8 4.8 - 10.8 12/08 [facility] Hemogram RBC 3.03 4.00 - 12/08 L [place] 5.40 [facility] Hemogram Hgb 9.5 11.5 - 12/08 L [place] 16.0 [facility] Hemogram Hct 28.5 37.0 - 12/08 L [place] 47.0 [facility] Hemogram MCV 94.2 80.0 - 12/08 [place] 100.0 [facility] Hemogram MCH 31.3 27.0 - 12/08 [place] 34.0 [facility] Hemogram MCHC 33.2 32.0 - 12/08 [place] 37.0 [facility] Hemogram RDW 14.3 11.5 - 12/08ler 16.0 [facility] Hemogram Plt 270 130 - 400 12/08 [place] Unless otherwise noted, tests performed at the following location: [facility] Anti-Xa Heparin 0.33 0.30 - 12/08 [place] UFH Anti-Xa, UFH 0.70 Unless otherwise noted, tests performed at the following location: [facility] Coagulatio Heparin 0.33 0.30 - 12/08 [place] n Anti-Xa, UFH 0.70 [facility] CBC WBC 9.8 4.8 - 10.8 12/08 [facility] CBC RBC 3.03 4.00 - 12/08 [place] 5.40 [facility] CBC Hgb 9.5 11.5 - 12/08 [place] 16.0 [facility] CBC Hct 28.5 37.0 - 12/08 [place] 47.0 [facility] CBC MCV 94.2 80.0 - 12/08 [place] 100.0 [facility] CBC MCH 31.3 27.0 - 12/08 [place] 34.0 [facility] CBC MCHC 33.2 32.0 - 12/08 [place] 37.0 [facility] CBC RDW 14.3 11.5 - 12/08 [place] 16.0 [facility] CBC Plt 270 130 - 400 12/08 [facility] Coagulatio Heparin 0.33 0.30 - 12/08 [place] n Anti-Xa, UFH 0.70 [facility] Anti-Xa Heparin 0.37 0.30 - 12/07 [place] UFH Anti-Xa, UFH 0.70 Unless otherwise noted, tests performed at the following location: [facility] Hemogram WBC 10.5 4.8 - 10.8 12/07 [facility] Hemogram RBC 3.00 4.00 - 12/07 L . [facility] Hemogram Hgb 9.4 11.5 - 12/07 L [place] 16. [facility] Hemogram Hct 28.2 37.0 - 12/07 L [place] 47. [facility] Hemogram MCV 93.8 80.0 - 12/07ler 100. [facility] Hemogram MCH 31.3 27.0 - 12/07ler 34. [facility] Hemogram MCHC 33.4 32.0 - 12/07 37. [facility] Hemogram RDW 14.1 11.5 - 12/07 16 [facility] Hemogram Plt 265 130 - 400 12/07 Unless otherwise noted, tests performed at the following location: [facility] CBC WBC 10.5 4.8 - 10.8 12/07 [facility] CBC RBC 3.00 4.00 - 12/07. [facility] CBC Hgb 9.4 11.5 - 12/07ler 16.0 [facility] CBC Hct 28.2 37.0 - 12/07ler 47.0 [facility] CBC MCV 93.8 80.0 - 12/07ler 100. [facility] CBC MCH 31.3 27.0 - 12/07ler 34. [facility] CBC MCHC 33.4 32.0 - 12/07ler 37. [facility] CBC RDW 14.1 11.5 - 03/06 [place] 16.0 /2019 [facility] CBC Plt 265 130 - 400 03/06 [facility] Coagulatio Heparin 0.37 0.30 - 03/06 [place] n Anti-Xa, UFH 0.70 /2019 [facility] CBC w/Diff WBC 12.1 4.8 - 10.8 03/05 H [place] [facility] CBC w/Diff RBC 3.09 4.00 - 03/05 L [place] 5.40 /2019 [facility] CBC w/Diff Hgb 9.2 11.5 - 03/05 L [place] 16.0 /2019 [facility] CBC w/Diff Hct 28.0 37.0 - 03/05 L [place] 47.0 [facility] CBC w/Diff MCV 90.6 80.0 - 03/05 [place] 100.0 [facility] CBC w/Diff MCH 29.9 27.0 - 03/05 [place] 34.0 [facility] CBC w/Diff MCHC 33.0 32.0 - 03/05 [place] 37.0 [facility] CBC w/Diff RDW 14.2 11.5 - 03/05 [place] 16.0 [facility] CBC w/Diff Plt 307 130 - 400 0305 [place] [facility] CBC w/Diff Neuts 81.8 35.0 - 03/05 H [place] 80.0 /2019 [facility] CBC w/Diff Lymphs 7.7 10.0 - 03/05 L [place] 55.0 [facility] CBC w/Diff Monos. 9.3 0.0 - 15.0 03/05 [place] [facility] CBC w/Diff Eos. 0.7 0.0 - 9.0 03/05 [place] /[address] [place] [address] CBC w/Diff Baso. 0.5 0.0 - 3.0 03/ [place] [facility] CBC w/Diff ABS Neut 9.9 1.7 - 8.6 03/05 H [place] [facility] CBC w/Diff ABS Lymph 0.9 0.5 - 5.9 03/ [place] [facility] CBC w/Diff ABS [place] 1.1 0.0 - 1.6 03 [place] [facility] CBC w/Diff ABS Eos 0.1 0.0 - 1.0 12/06 [facility] CBC w/Diff ABS Baso 0.1 0.0 - 0.3 12/06 [place] [facility] CBC w/Diff CBC Scan Auto Diff 12/06 [place] Unless otherwise noted, tests performed at the following location: [facility] BMP Sodium 136 134 - 144 12/06 [facility] (Basic) [facility] BMP Potassium 4.0 3.5 - 5.1 12/06 [facility] (Basic) [facility] BMP Chloride 101 98 - 107 12/06 [facility] (Basic) [facility] BMP CO2 29 23 - 31 12/06 [facility] (Basic) [facility] BMP Glucose 102 70 - 99 12/06 H [place] [employer] (ADA) Guidelines: [facility] (Basic) Level Optimal fa sting blood glucose is below 100 mg/dL. A person with pre-diabetes has a fasting blood glucose of 100-125. [facility] BUN 9 10 - 20 12/06 L [facility] (Basic) [facility] BMP Creatinine 0.81 0.57 - 12/06 Result is ID-GC/MS st andardized [facility] (Basic) 1.11 [facility] BMP Calcium 8.4 8.4 - 10.2 12/06 [facility] (Basic) [facility] BMP Anion Gap 10 5 - 15 12/06 [facility] (Basic) [facility] BMP eGFR >60 12/06 NA NORMALIZED FOR ID-GC/MS STANDARDIZED CREATININE [facility] (Basic) Non- (NON-AF AMR=NON-, AF AMR=) [facility] Am KIDNEY DAMAGE STAGES FRO M [facility] STAGE 1 and 2 >60 mL/min /1.73 square meters STAGE 3 30-59 mL/min/1.7 3 square meters STAGE 4 15-29 mL/min/1.7 3 square meters STAGE 5 <14 mL/min/1.73 square meters BMP eGFR >60 12/06 NA NORMALIZED FOR ID-GC/MS STANDARDIZED CREATININE [place] (Basic) Afr/Amer (NON-AF AM R=NON-, AF AMR=) Regional KIDNEY DAMAGE STAGES FRO M [facility] Medical Center STAGE 1 and 2 >60 mL/min /1.73 square meters STAGE 3 30-59 mL/min/1.7 3 square meters STAGE 4 15-29 mL/min/1.7 3 square meters STAGE 5 <14 mL/min/1.73 square meters BMP Drug Calc 73.100 12/06 [place] (Basic) Weight (kg) [facility] BMP Height (cm) 167.600 12/06 [place] (Basic) Unless oth erwise noted, tests performed at the following location: [facility] PT PT 13.3 10.0 - 12/06 H [place] 12.3 [facility] PT INR 1.17 12/06 NA INR THERAPEUTIC RANGE: C handler Use of the INR should b e limited to therapeutic monitoring Regional of patients on stable lo ng-term warfarin therapy. Medical Prophylaxis/treatment of venous thromboembolism .. INR 2-3 Center Prophylaxis/treatment of pulmonary embolism ...... INR 2-3 Prevention of systemic e mbolism from atrial fibrillation, myocardial infarction, t issue heart valves, valvular heart disease, and recurrent s ystemic embolism ...........INR 2-3 Prevention of systemic e mbolism from mechanical prosthetic heart valv es ................................. .........................INR 2.5-3.5 Unless otherwise noted, tests performed at the following location: PTT PTT 53.4 25.5 - 12/06 H Interpretive data for PT T-APTT: [place] For patien ts receiving unfractionated heparin the therapeutic range is 65.2-86.8 seconds as measured by the APTT which roughly corresponds to the recommended heparin concentration of 0.3-0.7 IU/mL as measured by the anti Xa-assay. Regional For patien ts on direct thrombin inhibitors, the APTT therapeutic range is 46.2-77.0 seconds. Medical Center Unless otherwise noted, tests performed at the following location: CBC CBC Scan Auto Diff 12/06 [place] (12/07/19 5:22 AM) [facility] CBC Neuts 81.8 35.0 - 03/05 [place] 80.0 /2019 [facility] CBC Lymphs 7.7 10.0 - 03/05 [place] 55.0 [facility] CBC Monos. 9.3 0.0 - 15.0 03/ [facility] [address] [place] [address] CBC Eos. 0.7 0.0 - 9.0 03/[address] CBC Baso. 0.5 0.0 - 3.0 03/[address] CBC ABS Neut 9.9 1.7 - 8.6 03/05 [facility] CBC ABS Lymph 0.9 0.5 - 5.9 03 [facility] [address] [place] [address] CBC ABS [place] 1.1 0.0 - 1.6 12/06 [facility] CBC ABS Eos 0.1 0.0 - 1.[address] CBC ABS Baso 0.1 0.0 - 0.3 03 [facility] [address] [place] [address] CBC WBC 12.1 4.8 - 10.8 03/05 [facility] [address] [place] [address] CBC RBC 3.09 4.00 - 0305 [place] 5.40 [facility] CBC Hgb 9.2 11.5 - 0305 [facility] 16.0 [facility] CBC Hct 28.0 37.0 - 03/ [place] 47.0 [facility] CBC MCV 90.6 80.0 - 03/05 [place] 100.0 [facility] CBC MCH 29.9 27.0 - 03/05 [place] 34.0 [facility] CBC MCHC 33.0 32.0 - 03/05 [place] 37.0 [facility] CBC RDW 14.2 11.5 - 0305 [place] 16.0 [facility] CBC Plt 307 130 - 400 03/[address] General eGFR >60 03 [facility] Chemistry Afr/Amer [facility] General Glucose 102 70 - 99 03/ [facility] Chemistry Level /2019 [facility] General BUN 9 10 - 20 03 [facility] Chemistry /2019 [facility] General Creatinine 0.81 0.57 - 03 [facility] Chemistry 1.11 [facility] General Sodium 136 134 - 144 03/05 [place] Chemistry [facility] General Potassium 4.0 3.5 - 5.1 12/06 [place] Chemistry [facility] General Chloride 101 98 - 107 12/06ler Chemistry [facility] General CO2 29 23 - 31 12/06 Chemistry [facility] General Calcium 8.4 8.4 - 10.2 12/06ler Chemistry [facility] General Anion Gap 10 5 - 15 12/06ler Chemistry [facility] General eGFR >60 12/06 [place] Chemistry Non- [facility] Anti-Xa Heparin 0.42 0.30 - 12/06 [place] UFH Anti-Xa, UFH 0.70 Unless otherwise noted, tests performed at the following location: [facility] Coagulatio Heparin 0.42 0.30 12/06 [place] n Anti-Xa, UFH 0. [facility] Anti-Xa Heparin 0.54 0.30 12/06 [place] UFH Anti-Xa, UFH 0.70 Unless otherwise noted, tests performed at the following location: [facility] Medical Center Coagulatio Heparin 0.54 0.30 - 12/06 [place] n Anti-Xa, UFH 0.70 [facility] Anti-Xa Heparin 0.57 0.30 - 12/05 [place] UFH Anti-Xa, UFH 0. Unless otherwise noted, tests performed at the following location: [facility] Coagulatio Heparin 0.57 0.30 - 12/05 [place] n Anti-Xa, UFH 0.70 [facility] [id number] HSV 1/2 Ab <0.34 <=0.89 12/05 NA The CSF specimen shows evidence of blood contamination and is, [place] lx GlycoG Screen IgG, therefor e, likely contaminated with serum antibodies. Antibody Regional IgG/M CSF. testing from this specim en is not recommended, as the blood may Medical [id number] interfere, causing a fal se-positive result that does not represent Center intrathecally produced a ntibodies. False-negative results are also possible. It is highly r ecommended that serum testing for the same analyte also be performe d in order to aid in interpreting the CSF test result. INTERPRETIVE INFORMATION : Herpes Simplex Virus Type 1 and/or 2 Antibodies, IgG CSF 0.89 IV or Less ....... ... Negative: No significant level of detectable HSV IgG antibody. 0.90 - 1.09 IV ........ ... Equivocal: Questionable presence of IgG antibod ies. Repeat testing in 10-14 days may be helpful. 1.10 IV or Greater .... ... Positive: IgG antibody to HSV detected, which may ind icate a current or past HSV infection. The detection of antibod ies to herpes simplex virus in CSF may indicate central nervous system infection. However, consideration must be given to possibl e contamination by blood or transfer of serum antibodies across the blood-brain barrier. Fourfold or greater rise in CSF antibodies to herpes on specimens at least 4 weeks apart a re found in 74-94 % of patients with herpes encephalitis. Spe cificity of the test based on a single CSF testing is not establish ed. Presently PCR is the primary means of establishing a diagnosis of herpes encephalitis. Test developed and arnoldo cteristics determined by [employer]. See Compli ance Statement B: [employer]/CS [id number] HSV 1 and/or 0.24 <=0.89 12/05 NA [place] lx GlycoG 2 Antibodies /2020 The CSF specimen shows evidence of blood contamination and is, Regional IgG/M IgM, CSF. therefore, likely contaminated with serum antibodies. Antibody Medical [id number] testing from this specim en is not recommended, as the blood may Center interfere, causing a fal se-positive result that does not represent intrathecally produced a ntibodies. False-negative results are also possible. It is highly r ecommended that serum testing for the same analyte also be performe d in order to aid in interpreting the CSF test result. INTERPRETIVE INFORMATION : Herpes Simplex Virus Type 1 and/or 2 Antibod ies, IgM by BUNNY, CSF 0.89 IV or Less ....... ... Negative: No significant level of detectable HSV IgM antibody. 0.90 - 1.09 IV ........ ... Equivocal: Questionable presence of IgM antibod ies. Repeat testing in 10-14 days may be helpful. 1.10 IV or Greater .... ... Positive: IgM antibody to HSV detected, which may ind icate a current or recent infec tion. However, low levels of IgM antibodies may occasion ally persist for more than 1 2 months post-infection. The detection of antibod ies to herpes simplex virus in CSF may indicate central nervous system infection. However, consideration must be given to possibl e contamination by blood or transfer of serum antibodies across the blood-brain barrier. Fourfold or greater rise in CSF antibodies to herpes on specimens at least 4 weeks apart a re found in 74-94 % of patients with herpes encephalitis. Spe cificity of the test based on a single CSF testing is not establish ed. Presently PCR is the primary means of establishing a diagnosis of herpes encephalitis. Test developed and arnoldo cteristics determined by [employer]. See Compli ance Statement B: [employer]/CS Performed by [email or web address] Jarrod trevino, [address] [place] [address] [email or web address], Kurt mccoy MD, Lab. Director Unless otherwise noted, tests performed at the following location: BMP Sodium 137 134 - 144 12/05 [place] (Basic) [facility] BMP Potassium 3.7 3.5 - 5.1 12/05 [place] (Basic) [facility] BMP Chloride 102 98 - 107 12/05 [place] (Basic) [facility] BMP CO2 29 23 - 31 12/05 [place] (Basic) [facility] BMP Glucose 89 70 - 99 12/05 [place] [employer] (ADA) Guidelines: [place] (Basic) Level /2019 Optimal fa sting blood glucose is below 100 mg/dL. A person with pre-diabetes has a fasting blood glucose of 100-125. [facility] BMP BUN 10 10 - 20 12/05 [facility] (Basic) [facility] BMP Creatinine 0.82 0.57 - 12/05 Result is ID-GC/MS st andardized [facility] (Basic) 1.11 [facility] BMP Calcium 8.6 8.4 - 10.2 12/05 [facility] (Basic) [facility] BMP Anion Gap 10 5 - 15 12/05 [place] (Basic) /2019 [facility] BMP eGFR >60 12/05 NA NORMALIZED FOR ID-GC/MS STANDARDIZED CREATININE [place] (Basic) Non- (NON-AF AMR=NON-, AF AMR=) [facility] Am KIDNEY DAMAGE STAGES FRO M [facility] Medical Center STAGE 1 and 2 >60 mL/min /1.73 square meters STAGE 3 30-59 mL/min/1.7 3 square meters STAGE 4 15-29 mL/min/1.7 3 square meters STAGE 5 <14 mL/min/1.73 square meters BMP eGFR >60 12/05 NA NORMALIZED FOR ID-GC/MS STANDARDIZED CREATININE [place] (Basic) Afr/Amer (NON-AF AM R=NON-, AF AMR=) Regional KIDNEY DAMAGE STAGES FRO M [facility] Medical Center STAGE 1 and 2 >60 mL/min /1.73 square meters STAGE 3 30-59 mL/min/1.7 3 square meters STAGE 4 15-29 mL/min/1.7 3 square meters STAGE 5 <14 mL/min/1.73 square meters BMP Drug Calc 73.100 12/05 [place] (Basic) Weight (kg) [facility] BMP Height (cm) 167.600 12/05 [place] (Basic) Unless david chavira noted, tests performed at the following location: [facility] CBC w/Diff WBC 10.2 4.8 - 10.8 12/05 [facility] CBC w/Diff RBC 3.01 4.00 - 03/04 L [place] 5.40 [facility] CBC w/Diff Hgb 9.2 11.5 - 03/04 L [place] 16.0 [facility] CBC w/Diff Hct 27.5 37.0 - 03/04 L [place] 47.0 [facility] CBC w/Diff MCV 91.2 80.0 - 12/05 [place] 100.0 [facility] CBC w/Diff MCH 30.6 27.0 - 03 [place] 34.0 [facility] CBC w/Diff MCHC 33.6 32.0 - 12/05 37.0 [facility] CBC w/Diff RDW 13.9 11.5 - 12/05 16.0 [facility] CBC w/Diff Plt 274 130 - 400 12/05 [facility] CBC w/Diff Neuts 75.6 35.0 - 12/05 80.0 [facility] CBC w/Diff Lymphs 12.6 10.0 - 12/05 55.0 [facility] CBC w/Diff Monos. 10.0 0.0 - 15.0 12/05 [facility] CBC w/Diff Eos. 1.2 0.0 - 9.0 12/05 [facility] CBC w/Diff Baso. 0.6 0.0 - 3.0 12/05 [facility] CBC w/Diff ABS Neut 7.7 1.7 - 8.6 12/05 [facility] CBC w/Diff ABS Lymph 1.3 0.5 - 5.9 12/05 [facility] CBC w/Diff ABS [place] 1.0 0.0 - 1.6 12/05 [facility] CBC w/Diff ABS Eos 0.1 0.0 - 1.0 12/05 [facility] CBC w/Diff ABS Baso 0.1 0.0 - 0.3 12/05 [facility] CBC w/Diff CBC Scan Auto Diff 12/05 Unless otherwise noted, tests performed at the following location: [facility] CBC CBC Scan Auto Diff 12/05 [place] (12/06/19 4:19 AM) [facility] CBC Neuts 75.6 35.0 - [place] 80.0 [facility] CBC Lymphs 12.6 10.0 - 03/ [place] 55.0 [facility] CBC Monos. 10.0 0.0 - 15.0 03/ [place] [facility] CBC Eos. 1.2 0.0 - 9.0 03/ [place] [address] [place] [address] CBC Baso. 0.6 0.0 - 3.0 / [place] [facility] CBC ABS Neut 7.7 1.7 - 8.6 03/ [place] [facility] CBC ABS Lymph 1.3 0.5 - 5.9 12/05 [facility] [address] [place] [address] CBC ABS [place] 1.0 0.0 - 1.6 12/05 [place] [facility] CBC ABS Eos 0.1 0.0 - 1.0 12/[address] [place] [address] [place] [address] CBC ABS Baso 0.1 0.0 - 0.3 12/05 [facility] [address] [place] [address] General Glucose 89 70 - 99 03 [facility] Chemistry Level [facility] General BUN 10 10 - 20 03 [facility] Chemistry [address] [place] [address] General Creatinine 0.82 0.57 - 03 [facility] Chemistry 1.11 [facility] General Sodium 137 134 - 144 03 [facility] Chemistry [facility] General Potassium 3.7 3.5 - 5.1 12/05 [facility] Chemistry [address] [place] [address] General Chloride 102 98 - 107 03 [facility] Chemistry [address] [place] [address] General CO2 29 23 - 31 03 [facility] Chemistry [facility] General Calcium 8.6 8.4 - 10.2 12/05 [facility] Chemistry [address] [place] [address] General Anion Gap 10 5 - 15 03/ [facility] Chemistry [address] [place] [address] General eGFR >60 03 [facility] Chemistry Afr/Amer /2019 [facility] General eGFR >60 12/05 [facility] Chemistry Non- [facility] BMP Sodium 139 134 - 144 03 [place] (Basic) [facility] BMP Potassium 4.0 3.5 - 5.1 03 [place] (Basic) /2019 [facility] BMP Chloride 104 98 - 107 12/04 [place] (Basic) [facility] BMP CO2 27 23 - 31 12/04 [place] (Basic) [facility] BMP Glucose 91 70 - 99 12/04 [place] [employer] (ADA) Guidelines: [place] (Basic) Optimal fa sting blood glucose is below 100 mg/dL. A person with pre-diabetes has a fasting blood glucose of 100-125. [facility] BMP BUN 9 10 - 20 12/04 L [facility] (Basic) [facility] BMP Creatinine 1.01 0.57 - 12/04 Result is ID-GC/MS st andardized [place] (Basic) 1.11 [facility] BMP Calcium 8.6 8.4 - 10.2 12/04 [place] (Basic) [facility] BMP Anion Gap 12 5 - 15 12/04 [place] (Basic) [facility] BMP eGFR 53 12/04 NA NORMALIZED FOR ID-GC/MS STANDARDIZED CREATININE [facility] (Basic) Non- (NON-AF AMR=NON-, AF AMR=) Regional Am KIDNEY DAMAGE STAGES FRO M [facility] STAGE 1 and 2 >60 mL/min /1.73 square meters STAGE 3 30-59 mL/min/1.7 3 square meters STAGE 4 15-29 mL/min/1.7 3 square meters STAGE 5 <14 mL/min/1.73 square meters BMP eGFR >60 12/04 NA NORMALIZED FOR ID-GC/MS STANDARDIZED CREATININE [place] (Basic) Afr/Amer (NON-AF AM R=NON-, AF AMR=) Regional KIDNEY DAMAGE STAGES FRO M [facility] STAGE 1 and 2 >60 mL/min /1.73 square meters STAGE 3 30-59 mL/min/1.7 3 square meters STAGE 4 15-29 mL/min/1.7 3 square meters STAGE 5 <14 mL/min/1.73 square meters BMP Drug Calc 73.100 12/04 [place] (Basic) Weight (kg) [facility] BMP Height (cm) 167.600 12/04 [place] (Basic) Unless oth erwise noted, tests performed at the following location: [facility] CBC w/Diff WBC 9.7 4.8 - 10.8 12/04 [facility] CBC w/Diff RBC 3.04 4.00 - 12/04 L [place] 5.40 [facility] CBC w/Diff Hgb 9.2 11.5 - 03 L [place] 16.0 [facility] CBC w/Diff Hct 28.5 37.0 - 03/ L [place] 47.0 [facility] CBC w/Diff MCV 93.9 80.0 - 12/04 [place] 100.0 [facility] CBC w/Diff MCH 30.4 27.0 - 12/04 [place] 34.0 [facility] CBC w/Diff MCHC 32.4 32.0 - 12/04 [place] 37.0 [facility] CBC w/Diff RDW 13.9 11.5 - 12/04 [place] 16.0 [facility] CBC w/Diff Plt 279 130 - 400 03 [facility] CBC w/Diff Neuts 71.1 35.0 - 03 [place] 80.0 [facility] [facility] CBC w/Diff Lymphs 16.2 10.0 - 03 [place] 55.0 [facility] CBC w/Diff Monos. 10.4 0.0 - 15.0 12/04 [facility] CBC w/Diff Eos. 1.5 0.0 - 9.0 12/04 [facility] CBC w/Diff Baso. 0.8 0.0 - 3.0 12/04 [facility] CBC w/Diff ABS Neut 6.9 1.7 - 8.6 12/04 [facility] CBC w/Diff ABS Lymph 1.6 0.5 - 5.9 12/04 [facility] CBC w/Diff ABS [place] 1.0 0.0 - 1.6 12/04 [facility] CBC w/Diff ABS Eos 0.1 0.0 - 1.0 12/04 [facility] CBC w/Diff ABS Baso 0.1 0.0 - 0.3 12/04 [facility] CBC w/Diff CBC Scan Auto Diff 12/04 Unless otherwise noted, tests performed at the following location: [facility] CBC CBC Scan Auto Diff 12/04 (12/05/19 2:50 AM) [facility] CBC Neuts 71.1 35.0 - 12/04 80.0 [facility] CBC Lymphs 16.2 10.0 - 12/04 55.0 [facility] CBC Monos. 10.4 0.0 - 15.0 12/04 [facility] CBC Eos. 1.5 0.0 - 9.0 12/04 [facility] CBC Baso. 0.8 0.0 - 3.0 12/04 [facility] CBC ABS Neut 6.9 1.7 - 8.6 12/04 [facility] CBC ABS Lymph 1.6 0.5 - 5.9 12/04 [facility] CBC ABS [place] 1.0 0.0 - 1.6 12/04 [facility] CBC ABS Eos 0.1 0.0 - 1.0 12/04 [facility] [address] [place] [address] CBC ABS Baso 0.1 0.0 - 0.3 12/[address] General eGFR 53 12/04 [facility] Non- [facility] General eGFR >60 12/04 [facility] Afr/Amer [facility] General Glucose 91 70 - 99 12/04 [facility] Level [address] [place] [address] General BUN 9 10 - 20 12/04 [facility] [address] [place] [address] General Creatinine 1.01 0.57 - 12/04 [facility] Chemistry 1.11 [facility] General Sodium 139 134 - 144 12/[address] General Potassium 4.0 3.5 - 5.1 12/[address] General Chloride 104 98 - 107 12/[address] General CO2 27 23 - 31 12/[address] General Calcium 8.6 8.4 - 10.2 12/[address] General Anion Gap 12 5 - 15 12/[address] VZV PCR VZV PCR CSF 12/03 NA [facility] [id number] Source /[address] [place] [address] VZV PCR VZV Not 12/03 NA This test was developed and its performance [place] [id number] Real-TimePCR charact eristics determined by [facility] Clinical [facility]. It has not been cleared or approved by Medical the FDA. The laboratory is regulated under CLIA as Center qualified to perform hig h-complexity testing. This test is used for clinica l purposes. It should not be regarded as investigatio nal or for research. Test performed at: [facility] Clinical Lab A [facility] of [facility] [address] [address] CLIA # [id number] Grading Supervisor: Yen Howard M.D. Unless otherwise noted, tests performed at the following location: CA 125 CA 125 496.0 0.0 - 34.9 03/02 H Testing p erformed on [employer] [email or web address].Values obtained with different assay methods cannot be used interchangeably due to differences in assay methods and reagent specificity. Regional Unless otherwise noted, tests performed at the following location: Medical Center CA 125 CA 125 468.4 0.0 - 34.9 03/02 H Testing p erformed on [employer] [email or web address].Values obtained with different assay methods cannot be used interchangeably due to differences in assay methods and reagent specificity. [facility] Unless otherwise noted, tests performed at the following location: [facility] Center BMP Sodium 140 134 - 144 12/03 [place] (Basic) [facility] BMP Potassium 3.7 3.5 - 5.1 12/03 [place] (Basic) [facility] BMP Chloride 106 98 - 107 12/03 [place] (Basic) [facility] BMP CO2 25 23 - 31 12/03 [place] (Basic) /2019 [facility] BMP Glucose 94 70 - 99 12/03 [place] [employer] (ADA) Guidelines: [place] (Basic) Optimal fa sting blood glucose is below 100 mg/dL. A person with pre-diabetes has a fasting blood glucose of 100-125. [facility] BMP BUN 10 10 - 20 12/03 [place] (Basic) [facility] BMP Creatinine 1.24 0.57 - 12/03 H Result is ID-GC/MS st andardized [place] (Basic) 1.11 [facility] BMP Calcium 8.2 8.4 - 10.2 12/03 L [place] (Basic) [facility] BMP Anion Gap 13 5 - 15 12/03 [place] (Basic) [facility] BMP eGFR 42 12/03 NA NORMALIZED FOR ID-GC/MS STANDARDIZED CREATININE [place] (Basic) Non- (NON-AF AMR=NON-, AF AMR=) Regional Am KIDNEY DAMAGE STAGES FRO M [facility] STAGE 1 and 2 >60 mL/min /1.73 square meters STAGE 3 30-59 mL/min/1.7 3 square meters STAGE 4 15-29 mL/min/1.7 3 square meters STAGE 5 <14 mL/min/1.73 square meters BMP eGFR 51 12/03 NA NORMALIZED FOR ID-GC/MS STANDARDIZED CREATININE [place] (Basic) Afr/Amer (NON-AF AM R=NON-, AF AMR=) Regional KIDNEY DAMAGE STAGES FRO M [facility] STAGE 1 and 2 >60 mL/min /1.73 square meters STAGE 3 30-59 mL/min/1.7 3 square meters STAGE 4 15-29 mL/min/1.7 3 square meters STAGE 5 <14 mL/min/1.73 square meters BMP Drug Calc 73.100 12/03 [place] (Basic) Weight (kg) [facility] BMP Height (cm) 167.600 12/03 [place] ([facility]) Unless david chavira noted, tests performed at the following location: [facility] CBC w/Diff WBC 9.6 4.8 - 10.8 03 [facility] CBC w/Diff RBC 3.08 4.00 - 03 L [place] 5.40 /2019 [facility] CBC w/Diff Hgb 9.5 11.5 - 03 L [place] 16.0 [facility] CBC w/Diff Hct 28.1 37.0 - 03 L [place] 47.0 [facility] CBC w/Diff MCV 91.1 80.0 - 12/03 [place] 100.0 [facility] CBC w/Diff MCH 30.9 27.0 - 03 [place] 34.0 [facility] CBC w/Diff MCHC 33.9 32.0 - 03 [place] 37.0 [facility] CBC w/Diff RDW 13.8 11.5 - 03 [place] 16.0 [facility] CBC w/Diff Plt 251 130 - 400 03 [place] [facility] CBC w/Diff Neuts 74.1 35.0 - 12/03 [place] 80.0 [facility] CBC w/Diff Lymphs 12.8 10.0 - 03 [place] 55.0 [facility] CBC w/Diff Monos. 10.1 0.0 - 15.0 12/03 [facility] CBC w/Diff Eos. 2.0 0.0 - 9.0 12/03 [facility] CBC w/Diff Baso. 1.0 0.0 - 3.0 12/03 [facility] CBC w/Diff ABS Neut 7.1 1.7 - 8.6 12/03 [facility] CBC w/Diff ABS Lymph 1.2 0.5 - 5.9 12/03 [facility] CBC w/Diff ABS [place] 1.0 0.0 - 1.6 12/03 [facility] CBC w/Diff ABS Eos 0.2 0.0 - 1.0 12/03 [facility] CBC w/Diff ABS Baso 0.1 0.0 - 0.3 12/03 [place] [facility] CBC w/Diff CBC Scan Auto Diff 12/03 Unless otherwise noted, tests performed at the following location: Regional [facility] CBC CBC Scan Auto Diff 12/03 [facility] (12/04/19 3:55 AM) [facility] CBC Neuts 74.1 35.0 - 12/03 [facility] 80.0 [facility] CBC Lymphs 12.8 10.0 - 12/03 [place] 55.0 [facility] CBC Monos. 10.1 0.0 - 15.0 12/03 [facility] [address] [place] [address] CBC Eos. 2.0 0.0 - 9.0 12/[address] CBC Baso. 1.0 0.0 - 3.0 12/03 [place] [facility] CBC ABS Neut 7.1 1.7 - 8.6 12/03 [place] [facility] CBC ABS Lymph 1.2 0.5 - 5.9 12/03 [facility] CBC ABS [place] 1.0 0.0 - 1.6 12/03 [facility] CBC ABS Eos 0.2 0.0 - 1.0 12/03 [facility] CBC ABS Baso 0.1 0.0 - 0.3 12/03 [facility] [address] [place] [address] General eGFR 42 12/03 [facility] Chemistry Non- [facility] General eGFR 51 03 [place] Chemistry Afr/Amer /2019 [facility] General Glucose 94 70 - 99 03 [place] Chemistry Level /2020 [facility] General BUN 10 10 - 20 03 [place] Chemistry /2020 [facility] General Creatinine 1.24 0.57 - 03 [place] Chemistry 1. [facility] General Sodium 140 134 - 144 03 [place] Chemistry /2020 [facility] General Potassium 3.7 3.5 - 5.1 12/03 [place] Chemistry /2020 [facility] General Chloride 106 98 - 107 03 [place] Chemistry /2020 [facility] General CO2 25 23 - 31 12/03 [place] Chemistry /2020 [facility] General Calcium 8.2 8.4 - 10.2 12/03 [place] Chemistry /2020 [facility] General Anion Gap 13 5 - 15 12/03 [place] Chemistry /2020 [facility] Special [place] 125 468.4 0.0 - 34.9 12/02 [place] Chemistry /2020 [facility] BMP Sodium 138 134 - 144 12/02 [place] (Basic) /2019 [facility] BMP Potassium 3.5 3.5 - 5.1 12/02 [place] (Basic) [facility] BMP Chloride 106 98 - 107 12/02 [place] (Basic) /2019 [facility] BMP CO2 23 23 - 31 12/02 [place] (Basic) /2019 [facility] BMP Glucose 108 70 - 99 03/ H [place] [employer] (ADA) Guidelines: [place] (Basic) Level Optimal fa sting blood glucose is below 100 mg/dL. A person with pre-diabetes has a fasting blood glucose of 100-125. [facility] BMP BUN 9 10 - 20 03 L [place] (Basic) [facility] BMP Creatinine 0.99 0.57 - 03 Result is ID-GC/MS st andardized [place] (Basic) 1. [facility] BMP Calcium 8.3 8.4 - 10.2 12/02 L [place] (Basic) [facility] BMP Anion Gap 12 5 - 15 12/02 [place] (Basic) [facility] BMP eGFR 54 03 NA NORMALIZED FOR ID-GC/MS STANDARDIZED CREATININE [place] (Basic) Non- (NON-AF AMR=NON-, AF AMR=) [facility] Am KIDNEY DAMAGE STAGES FRO M [facility] STAGE 1 and 2 >60 mL/min /1.73 square meters STAGE 3 30-59 mL/min/1.7 3 square meters STAGE 4 15-29 mL/min/1.7 3 square meters STAGE 5 <14 mL/min/1.73 square meters BMP eGFR >60 12/02 NA NORMALIZED FOR ID-GC/MS STANDARDIZED CREATININE [place] (Basic) Afr/Amer (NON-AF AM R=NON-, AF AMR=) Regional KIDNEY DAMAGE STAGES FRO M [facility] KIDNEY [facility] Center STAGE 1 and 2 >60 mL/min /1.73 square meters STAGE 3 30-59 mL/min/1.7 3 square meters STAGE 4 15-29 mL/min/1.7 3 square meters STAGE 5 <14 mL/min/1.73 square meters BMP Drug Calc 73.100 12/02 [place] (Basic) Weight (kg) [facility] BMP Height (cm) 167.600 12/02 [place] (Basic) Unless david chavira noted, tests performed at the following location: [facility] Medical [place] CBC w/Diff WBC 10.0 4.8 - 10.8 12/02 [facility] CBC w/Diff RBC 3.03 4.00 - 12/02 L [place] 5.40 [facility] CBC w/Diff Hgb 9.3 11.5 - 03/ L [place] 16.0 /2019 [facility] CBC w/Diff Hct 27.5 37.0 - 03/ L [place] 47.0 [facility] CBC w/Diff MCV 90.7 80.0 - 03 [place] 100.0 /2019 [facility] CBC w/Diff MCH 30.6 27.0 - 03 [place] 34.0 /2019 [facility] CBC w/Diff MCHC 33.7 32.0 - 03 [place] 37.0 [facility] CBC w/Diff RDW 13.7 11.5 - 03 [place] 16.0 [facility] CBC w/Diff Plt 250 130 - 400 03 [place] [facility] CBC w/Diff Neuts 77.2 35.0 - 03 [place] 80.0 /2019 [facility] CBC w/Diff Lymphs 8.0 10.0 - 03 L [place] 55.0 [facility] CBC w/Diff Monos. 12.4 0.0 - 15.0 03 [place] [facility] CBC w/Diff Eos. 1.6 0.0 - 9.0 03 [place] [facility] CBC w/Diff Baso. 0.8 0.0 - 3.0 12/02 [place] [facility] CBC w/Diff ABS Neut 7.7 1.7 - 8.6 12/02 [place] [facility] CBC w/Diff ABS Lymph 0.8 0.5 - 5.9 12/02 [place] [facility] CBC w/Diff ABS [place] 1.2 0.0 - 1.6 12/02 [place] [facility] CBC w/Diff ABS Eos 0.2 0.0 - 1.0 12/02 [facility]2019 [facility] CBC w/Diff ABS Baso 0.1 0.0 - 0.3 12/02 [facility]2019 [facility] CBC w/Diff CBC Scan Auto Diff 12/02 [place] Unless otherwise noted, tests performed at the following location: [facility] CBC CBC Scan Auto Diff 12/02 [place] (12/03/19 3:13 AM) [facility] CBC Neuts 77.2 35.0 - 12/02 80.0 [facility] CBC Lymphs 8.0 10.0 - 03 55.0 [facility] CBC Monos. 12.4 0.0 - 15.0 12/[address] CBC Eos. 1.6 0.0 - 9.0 12/02 [facility] [address] [place] [address] CBC Baso. 0.8 0.0 - 3.0 12/[address] CBC ABS Neut 7.7 1.7 - 8.6 12/[address] CBC ABS Lymph 0.8 0.5 - 5.9 12/02 [facility] [address] [place] [address] CBC ABS [place] 1.2 0.0 - 1.6 12/[address] CBC ABS Eos 0.2 0.0 - 1.0 12/[address] CBC ABS Baso 0.1 0.0 - 0.3 12/[address] General eGFR 54 03 [facility] Chemistry Non- [facility] General eGFR >60 12/02 [facility] Chemistry Afr/Amer [facility] General Glucose 108 70 - 99 12/02 [facility] Chemistry Level [facility] General BUN 9 10 - 20 12/02 [facility] Chemistry [facility] General Creatinine 0.99 0.57 - 03 [facility] Chemistry 1.11 [facility] General Sodium 138 134 - 144 12/02 [facility] General Potassium 3.5 3.5 - 5.1 12/02 [facility] [address] [place] [address] General Chloride 106 98 - 107 12/02 [facility] [address] [place] [address] General CO2 23 23 - 31 12/02 [facility] Chemistry [address] [place] [address] General Calcium 8.3 8.4 - 10.2 0301 [facility] Chemistry [facility] General Anion Gap 12 5 - 15 12/02 [facility] Chemistry [facility] Special [place] 125 496.0 0.0 - 34.9 12/02 [facility] Chemistry [facility] BMP Sodium 139 134 - 144 [facility] (Basic) [facility] BMP Potassium 4.1 3.5 - 5.1 [facility] (Basic) [facility] BMP Chloride 106 98 - 107 [place] (Basic) [facility] BMP CO2 27 23 - 31 [facility] (Basic) [facility] BMP Glucose 95 70 - 99 [place] [employer] (ADA) Guidelines: [facility] (Basic) Level Optimal fa sting blood glucose is below 100 mg/dL. A person with pre-diabetes has a fasting blood glucose of 100-125. [facility] BMP BUN 8 10 - 20 L [facility] (Basic) [facility] BMP Creatinine 0.78 0.57 - Result is ID-GC/MS st andardized [facility] (Basic) 1.11 [facility] BMP Calcium 8.5 8.4 - 10.2 [facility] (Basic) [facility] BMP Anion Gap 10 5 - 15 [facility] (Basic) [facility] BMP eGFR >60 NA NORMALIZED FOR ID-GC/MS STANDARDIZED CREATININE [facility] (Basic) Non- (NON-AF AMR=NON-, AF AMR=) [facility] Am KIDNEY DAMAGE STAGES FRO M [facility] Medical Center STAGE 1 and 2 >60 mL/min /1.73 square meters STAGE 3 30-59 mL/min/1.7 3 square meters STAGE 4 15-29 mL/min/1.7 3 square meters STAGE 5 <14 mL/min/1.73 square meters BMP eGFR >60 NA NORMALIZED FOR ID-GC/MS STANDARDIZED CREATININE [facility] (Basic) Afr/Amer (NON-AF AM R=NON-, AF AMR=) Regional KIDNEY DAMAGE STAGES FRO M [facility] Medical Center STAGE 1 and 2 >60 mL/min /1.73 square meters STAGE 3 30-59 mL/min/1.7 3 square meters STAGE 4 15-29 mL/min/1.7 3 square meters STAGE 5 <14 mL/min/1.73 square meters BMP Drug Calc 73.100 [place] (Basic) Weight (kg) [facility] BMP Height (cm) 167.600 [place] (Basic) Unless david chavira noted, tests performed at the following location: [facility] CBC w/Diff WBC 8.5 4.8 - 10.8 [facility] CBC w/Diff RBC 3.17 4.00 - L [place] 5.40 [facility] CBC w/Diff Hgb 9.6 11.5 - L [place] 16.0 [facility] CBC w/Diff Hct 28.7 37.0 - L [place] 47.0 [facility] CBC w/Diff MCV 90.5 80.0 - [place] 100.0 [facility] CBC w/Diff MCH 30.4 27.0 - [place] 34.0 [facility] CBC w/Diff MCHC 33.5 32.0 - [place] 37.0 [facility] CBC w/Diff RDW 13.7 11.5 - [place] 16.0 [facility] CBC w/Diff Plt 261 130 - 400 [facility] CBC w/Diff Neuts 76.1 35.0 - 80. [facility] CBC w/Diff Lymphs 10.6 10.0 - . [facility] CBC w/Diff Monos. 10.5 0.0 - 15.0 [facility] CBC w/Diff Eos. 1.9 0.0 - 9.0 [facility] CBC w/Diff Baso. 0.9 0.0 - 3.0 [facility] CBC w/Diff ABS Neut 6.5 1.7 - 8.6 [facility] CBC w/Diff ABS Lymph 0.9 0.5 - 5.9 [facility] CBC w/Diff ABS [place] 0.9 0.0 - 1.6 [facility] CBC w/Diff ABS Eos 0.2 0.0 - 1.0 [facility] CBC w/Diff ABS Baso 0.1 0.0 - 0.3 [facility] CBC w/Diff CBC Scan Auto Diff Unless otherwise noted, tests performed at the following location: [facility] CBC CBC Scan Auto Diff (12/02/19 7:44 AM) [facility] CBC Neuts 76.1 35.0 - 80. [facility] CBC Lymphs 10.6 10.0 - . [facility] CBC Monos. 10.5 0.0 - 15.0 [facility] CBC Eos. 1.9 0.0 - 9.0 [place] /[address] [place] [address] CBC Baso. 0.9 0.0 - 3.0 [facility] CBC ABS Neut 6.5 1.7 - 8.6 [place] [facility] CBC ABS Lymph 0.9 0.5 - 5.9 [facility]2019 [facility] CBC ABS [place] 0.9 0.0 - 1.6 [facility]2019 [facility] CBC ABS Eos 0.2 0.0 - 1.0 [facility] CBC ABS Baso 0.1 0.0 - 0.[address] BMP Sodium 136 134 - 144 12/01 [facility] (Basic) [address] BMP Potassium 3.6 3.5 - 5.1 12/01 [facility] ([facility]) [address] BMP Chloride 104 98 - 107 12/01 [facility] ([facility]) [address] BMP CO2 23 23 - 31 12/01 [facility] (Basic) [address] BMP Glucose 105 70 - 99 12/01 H [place] [employer] (ADA) Guidelines: [facility] ([facility]) [facility] Optimal fa sting blood glucose is below 100 mg/dL. A person with pre-diabetes has a fasting blood glucose of 100-125. [facility] BMP BUN 10 10 - 20 12/01 [facility] ([facility]) [address] BMP Creatinine 0.74 0.57 - 12/01 Result is ID-GC/MS st andardized [facility] ([facility]) 1.11 [facility] BMP Calcium 8.0 8.4 - 10.2 12/01 L [facility] (Basic) [address] [place] [address] BMP Anion Gap 13 5 - 15 12/01 [facility] (Basic) [address] BMP eGFR >60 12/01 NA NORMALIZED FOR ID-GC/MS STANDARDIZED CREATININE [facility] ([facility]) Non- (NON-AF AMR=NON-, AF AMR=) [facility] Am KIDNEY DAMAGE STAGES FRO M [facility] Medical Center STAGE 1 and 2 >60 mL/min /1.73 square meters STAGE 3 30-59 mL/min/1.7 3 square meters STAGE 4 15-29 mL/min/1.7 3 square meters STAGE 5 <14 mL/min/1.73 square meters BMP eGFR >60 12/01 NA NORMALIZED FOR ID-GC/MS STANDARDIZED CREATININE [place] (Basic) Afr/Amer (NON-AF AM R=NON-, AF AMR=) [facility] KIDNEY DAMAGE STAGES FRO M [facility] Medical Center STAGE 1 and 2 >60 mL/min /1.73 square meters STAGE 3 30-59 mL/min/1.7 3 square meters STAGE 4 15-29 mL/min/1.7 3 square meters STAGE 5 <14 mL/min/1.73 square meters BMP Drug Calc 73.100 12/01 [place] (Basic) Weight (kg) [facility] BMP Height (cm) 167.600 12/01 [place] (Basic) Unless david chavira noted, tests performed at the following location: [facility] Medical Center CBC w/Diff WBC 9.6 4.8 - 10.8 12/01 [facility] CBC w/Diff RBC 2.95 4.00 - 12/01 L [place] 5.40 [facility] CBC w/Diff Hgb 9.1 11.5 - 12/01 L [place] 16.0 [facility] CBC w/Diff Hct 26.5 37.0 - 12/01 L [place] 47.0 [facility] CBC w/Diff MCV 89.8 80.0 - 12/01 [place] 100.0 [facility] CBC w/Diff MCH 30.8 27.0 - 12/01ler 34.0 [facility] CBC w/Diff MCHC 34.3 32.0 - 12/01ler 37.0 [facility] CBC w/Diff RDW 13.4 11.5 - 12/01ler 16.0 [facility] CBC w/Diff Plt 204 130 - 400 12/01 [facility] CBC w/Diff Neuts 73.5 35.0 - 12/01ler 80.0 [facility] CBC w/Diff Lymphs 12.2 10.0 - 12/01ler 55.0 [facility] CBC w/Diff Monos. 10.6 0.0 - 15.0 12/01 [facility] CBC w/Diff Eos. 2.8 0.0 - 9.0 12/01 [facility] CBC w/Diff Baso. 0.9 0.0 - 3.0 12/01 [facility] CBC w/Diff ABS Neut 7.1 1.7 - 8.6 12/01 [facility] CBC w/Diff ABS Lymph 1.2 0.5 - 5.9 12/01 [facility] CBC w/Diff ABS [place] 1.0 0.0 - 1.6 12/01 [facility] CBC w/Diff ABS Eos 0.3 0.0 - 1.0 12/01 [facility] CBC w/Diff ABS Baso 0.1 0.0 - 0.3 12/01 [facility] CBC w/Diff CBC Scan Auto Diff 12/01 Unless otherwise noted, tests performed at the following location: [facility] CBC CBC Scan Auto Diff 12/01 [place] (12/01/19 2:44 AM) [facility] CBC Neuts 73.5 35.0 - 12/01 80.0 [facility] CBC Lymphs 12.2 10.0 - 12/01 55.0 [facility] CBC Monos. 10.6 0.0 - 15.0 12/01 [facility] [address] [place] [address] CBC Eos. 2.8 0.0 - 9.0 12/01 [place] [facility] CBC Baso. 0.9 0.0 - 3.0 12/01 [facility] [address] [place] [address] CBC ABS Neut 7.1 1.7 - 8.6 12/01 [place] [facility] CBC ABS Lymph 1.2 0.5 - 5.9 12/01 [facility] [address] [place] [address] CBC ABS [place] 1.0 0.0 - 1.6 12/01 [facility] [address] [place] [address] CBC ABS Eos 0.3 0.0 - 1.0 12/01 [place] /[address] [place] [address] CBC ABS Baso 0.1 0.0 - 0.3 12/01 [facility] [address] [place] [address] Gluc Glucose 95 70 - 110 11/30 District Customs Director: [id number] LINDEN Uriarte (POCT) (POCT) [facility] Automated Unless oth erwise noted, tests performed at the following location: [facility] Center CBC w/Diff WBC 11.6 4.8 - 10.8 11/30 H [place] /[address] [place] [address] CBC w/Diff RBC 3.19 4.00 - 11/30 L [place] 5.40 [facility] CBC w/Diff Hgb 9.7 11.5 - 11/30 L [place] 16.0 [facility] CBC w/Diff Hct 29.6 37.0 - 11/30 L [place] 47.0 /2019 [facility] CBC w/Diff MCV 92.7 80.0 - 11/30ler 100.0 [facility] CBC w/Diff MCH 30.3 27.0 - 11/30 34.0 [facility] CBC w/Diff MCHC 32.7 32.0 - 11/30 37.0 [facility] CBC w/Diff RDW 13.5 11.5 - 11/30 16.0 [facility] CBC w/Diff Plt 198 130 - 400 11/30 [facility] CBC w/Diff Neuts 79.9 35.0 - 11/30 80.0 [facility] CBC w/Diff Lymphs 7.8 10.0 - 11/30 L [place] 55.0 /2019 [facility] CBC w/Diff Monos. 9.7 0.0 - 15.0 11/30 [facility] CBC w/Diff Eos. 1.7 0.0 - 9.0 11/30 [facility] CBC w/Diff Baso. 0.9 0.0 - 3.0 11/30 [facility] CBC w/Diff ABS Neut 9.3 1.7 - 8.6 11/30 H [facility] CBC w/Diff ABS Lymph 0.9 0.5 - 5.9 11/30 [facility] CBC w/Diff ABS [place] 1.1 0.0 - 1.6 11/30 [facility] CBC w/Diff ABS Eos 0.2 0.0 - 1.0 11/30 [facility] CBC w/Diff ABS Baso 0.1 0.0 - 0.3 11/30 [facility] CBC w/Diff CBC Scan Auto Diff 11/30 Unless otherwise noted, tests performed at the following location: [facility] [place] Lipid Cholesterol 115 - <=200 11/30 CHOLESTEROL RESULTS : [facility] <200 DESIRABLE Regional 200 - 239 BORDERLINE Me dical >= 240 HIGH Center (The National Cholestero l Education (NCEP) recommendation) Lipid Triglyceride 82 0 - 150 11/30 [facility] s [facility] Lipid HDL 33 >=60 11/30 L National C holesterol Education Program (NCEP) Guidelines: [facility] < 40 mg/dL: low HDL cho lesterol (major risk factor for CHD) Regional >= 60 mg/dL: high HDL c holesterol ('negative' risk factor for CHD) [facility] Lipid LDL 66 0 - 129 11/[address] Lipid VLDL 16 0 - 40 [address] Lipid LDL/HDL 2 11/[address] Lipid Chol/Trig 1.40 11/[address] Lipid %HDL 28.7 11/[address] Lipid Cholesterol/ 3 11/30 NA ------- [facility] HDL /[facility] [place][note 2] Unless david chavira noted, tests performed at the following location: [facility] [place] CMP Sodium 136 134 - 144 11/[address] CMP Potassium 3.9 3.5 - 5.1 11/[address] CMP Chloride 102 98 - 107 11/[address] CMP CO2 28 23 - 31 11/[address] CMP Glucose 98 70 - 99 11/30 [place] [employer]ion (ADA) Guidelines: [facility] Optimal fa sting blood glucose is below 100 mg/dL. A person with pre-diabetes has a fasting blood glucose of 100-125. [facility] CMP BUN 11 10 - 20 11/30 [place] [facility] CMP Creatinine 0.80 0.57 - 11/30 Result is ID-GC/MS st andardized [place] 1. [facility] CMP Anion Gap 10 5 - 15 11/30 [place] [facility] CMP Calcium 8.1 8.4 - 10.2 11/30 L [place] [facility] CMP Protein, 5.0 6.4 - 8.3 11/30 L [place] Total [facility] CMP Albumin 2.4 3.4 - 5.0 11/30 L [place] [facility] CMP Alkphos 166 40 - 150 11/[address] CMP ALT 22 0 - 55 11/[address] CMP AST 45 5 - 34 11/[address] CMP Bili Total 0.5 0.2 - 1.2 11/30 [place] [facility] CMP eGFR >60 11/30 NA NORMALIZED FOR ID-GC/MS STANDARDIZED CREATININE [facility] (NON-AF AMR=NON-, AF AMR=) [facility] Am KIDNEY DAMAGE STAGES FRO [facility] STAGE 1 and 2 >60 mL/min /1.73 square meters STAGE 3 30-59 mL/min/1.7 3 square meters STAGE 4 15-29 mL/min/1.7 3 square meters STAGE 5 <14 mL/min/1.73 square meters CMP eGFR >60 11/30 NA NORMALIZED FOR ID-GC/MS STANDARDIZED CREATININE [facility]/ (NON-AF AMR=NON-, AF AMR=) Regional KIDNEY DAMAGE STAGES FRO [facility] KIDNEY [facility] Center STAGE 1 and 2 >60 mL/min /1.73 square meters STAGE 3 30-59 mL/min/1.7 3 square meters STAGE 4 15-29 mL/min/1.7 3 square meters STAGE 5 <14 mL/min/1.73 square meters CMP Globulin 2.6 2.5 - 4.1 11/30 [facility] CMP A/G Ratio 0.9 0.8 - 1.6 11/30 [facility] CMP Drug Calc 73.100 11/30ler Weight (kg) [facility] Height (cm) 167.600 11/30 [place] Unless otherwise noted, tests performed at the following location: Regional [facility] Mg Mg 1.8 1.6 - 2.6 11/30 [place] Unless otherwise noted, tests performed at the following location: Regional [facility] Gluc Glucose 98 70 - 110 11/30 District Customs Director: [id number] LINDEN Uriarte (POCT) (POCT) Regional Automated Unless oth erwise noted, tests performed at the following location: Medical [place] General Mg 1.8 1.6 - 2.6 11/30 [place] Chemistry [facility] General Protein, 5.0 6.4 - 8.3 11/30 [place] Chemistry Total [facility] General Albumin 2.4 3.4 - 5.0 11/30ler Chemistry [facility] General AST 45 5 - 34 11/30 Chemistry [facility] General ALT 22 0 - 55 11/30ler Chemistry [facility] General Alkphos 166 40 - 150 11/30 [place] Chemistry [facility] General Bili Total 0.5 0.2 - 1.2 11/30 [place] Chemistry [facility] General Globulin 2.6 2.5 - 4.1 11/30[facility] General A/G Ratio 0.9 0.8 - 1.6 11/30 [facility] Gluc Glucose 109 70 - 110 11/30 District Customs Director: [id number] LINDEN Uriarte (POCT) (POCT) Regional Automated Unless oth erwise noted, tests performed at the following location: Medical [place] Troponin-I Troponin I 5.99 - <=0.30 11/30 CRIT Previous critical Troponin called. Regional Unless otherwise noted, tests performed at the following location: Medical Center U SpneumAg Strep Pneumo Negative Negative 11/30 NA INTERP RETIVE INFORMATION: Streptococcus pneumoniae Ag, Urine [place] [id number] Ag, Urine. False-pos itives may occur because of cross-reactivity with other [facility] members of the S. mitis group. Clinical correlation is Medical recommended. Center Performed by [employer], [address] [facility], [place] [address] www.[email or web address], Kurt mccoy MD, Lab. Director Unless otherwise noted, tests performed at the following location: Cardiac Troponin I 5.99 <=0.30 11/30 Result [place] ng/mL Comment: [facility] critical Center Troponin called. CSFCOUNT1 CSF Number 4 11/29 NA [place] of Tubes [facility] CSFCOUNT1 CSF Source. Lumbar 11/29ler Puncture [facility] CSFCOUNT1 CSF Volume 8.0 11/29 NA CSF Volum e: Tube#1 2.5mL Tube #2 2mL Tube #3 1.5mL Tube #4 2.0mL. CSF Color: Tube#1 pink T ube #2 pink Tube #3 pink Tube #4 pink. [facility] CSF Clarity: Tube#1 clou dy Tube #2 cloudy Tube #3 cloudy Tube #[address] [facility] CSFCOUNT1 CSF Color - No Xantho 11/29 [place] Spun [facility] CSFCOUNT1 CSF Tube 3 11/29 NA [place] Counted [facility] CSFCOUNT1 CSF 114 /uL 0 - 5 11/29 NA NUCLEATED CELL COUNT INCLUDES WHITE BLOOD CELLS. [place] Nucleated [facility] CSFCOUNT1 CSF RBC [id number] /uL 0 - 11/29 NA [place] Count [facility] CSFCOUNT1 CSF Polys. 99 0 - 0 11/29 H [facility] CSFCOUNT1 CSF Lymphs 0 11/29 NA [facility] CSFCOUNT1 CSF Eos 1 0 - 0 11/29 H [facility] CSFCOUNT1 Internal QC See 11/29 Ratio of cells on cytospin correlates with cell count. [place] Slide [facility] CSFCOUNT1 CSF Slide See 11/29 No abnorma l cells seen on Cytospin prepared slide. [place] Comment Regional Unless otherwise noted, tests performed at the following location: Medical [place] RBC Cell CSF 1 11/29 NA [place] Cnt CSF Additional Regional Add Tube [facility] RBC Cell CSF RBC 11573 /uL 0 - 5 11/29 NA [place] Cnt CSF Count, Unless ot herwise noted, tests performed at the following location: Regional Add [facility] CSF CSF Glucose 52 40 - 70 11/29 [place] Glucose Unless oth erwise noted, tests performed at the following location: Regional [facility] CSF CSF Protein 72 15 - 45 11/29 H [place] Protein /2019 Unless david chavira noted, tests performed at the following location: Regional [facility] CSF Cult CSF Cult 11/29 [place] Final: [facility] No growth Medical [place] Gram Stain Gram Stain 11/29 Lalo rodriges Gram Stain: [facility] al White Blood Cells seen No organisms seen. Medical [place] Serology/I HSV 1/2 Ab <0.34 <=0.89 IV 11/29 Result C omment: The CSF specimen shows evidence of blood contamination and is, [place] mmunology Screen IgG, therefor e, likely contaminated with serum antibodies. Antibody Regional CSF. testing from this specim en is not recommended, as the blood may Medical interfere, causing a fal se-positive result that does not represent [place] intrathecally produced a ntibodies. False-negative results are also possible. It is highly r ecommended that serum testing for the same analyte also be performe d in order to aid in interpreting the CSF test result. INTERPRETIVE INFORMATION : Herpes Simplex Virus Type 1 and/or 2 Antibodies, IgG CSF 0.89 IV or Less ....... ... Negative: No significant level of detectable HSV IgG antibody. 0.90 - 1.09 IV ........ ... Equivocal: Questionable presence of IgG antibod ies. Repeat testing in 10-14 days may be helpful. 1.10 IV or Greater .... ... Positive: IgG antibody to HSV detected, which may ind icate a current or past HSV infection. The detection of antibod ies to herpes simplex virus in CSF may indicate central nervous system infection. However, consideration must be given to possibl e contamination by blood or transfer of serum antibodies across the blood-brain barrier. Fourfold or greater rise in CSF antibodies to herpes on specimens at least 4 weeks apart a re found in 74-94 % of patients with herpes encephalitis. Spe cificity of the test based on a single CSF testing is not establish ed. Presently PCR is the primary means of establishing a diagnosis of herpes encephalitis. Test developed and arnoldo cteristics determined by [employer]. See Compli ance Statement B: [email or web address] Serology/I HSV 1 and/or 0.24 <=0.89 IV 11/29 Result Comment : [place] mmunology 2 Antibodies /2020 The CSF specimen shows evidence of blood contamination and is, Regional IgM, CSF. therefore, likely cont aminated with serum antibodies. Antibody Medical testing from this specim en is not recommended, as the blood may Center interfere, causing a fal se-positive result that does not represent intrathecally produced a ntibodies. False-negative results are also possible. It is highly r ecommended that serum testing for the same analyte also be performe d in order to aid in interpreting the CSF test result. INTERPRETIVE INFORMATION : Herpes Simplex Virus Type 1 and/or 2 Antibod ies, IgM by BUNNY, CSF 0.89 IV or Less ....... ... Negative: No significant level of detectable HSV IgM antibody. 0.90 - 1.09 IV ........ ... Equivocal: Questionable presence of IgM antibod ies. Repeat testing in 10-14 days may be helpful. 1.10 IV or Greater .... ... Positive: IgM antibody to HSV detected, which may ind icate a current or recent infec tion. However, low levels of IgM antibodies may occasion ally persist for more than 1 2 months post-infection. The detection of antibod ies to herpes simplex virus in CSF may indicate central nervous system infection. However, consideration must be given to possibl e contamination by blood or transfer of serum antibodies across the blood-brain barrier. Fourfold or greater rise in CSF antibodies to herpes on specimens at least 4 weeks apart a re found in 74-94 % of patients with herpes encephalitis. Spe cificity of the test based on a single CSF testing is not establish ed. Presently PCR is the primary means of establishing a diagnosis of herpes encephalitis. Test developed and arnoldo cteristics determined by [employer]. See Compli ance Statement B: [employer]/CS Performed by [employer] Jarrod trevino, [address] [facility] [place] [address] www.[employer], Kurt mccoy MD, Lab. Director Spinal [place] [address] /uL 0 - 5 11/29 [place] Fluids Count, add [facility] Spinal CSF 1 11/29 [place] Fluids Additional [facility] Spinal CSF Source. Lumbar Puncture 11/29 Jacques dler Fluids (11/29/19 1:53 PM) /2019 [facility] Spinal CSF Number 4 11/29 [place] Fluids of Tubes /2019 [facility] Spinal CSF Volume 8.0 11/29 Result Co mment: CSF Volume: Tube#1 2.5mL Tube #2 2mL Tube #3 1.5mL Tube #4 2.0mL. [place] Fluids /2019 CSF Color: Tube#1 pink T ube #2 pink Tube #3 pink Tube #4 pink. [facility] CSF Clarity: Tube#1 clou dy Tube #2 cloudy Tube #3 cloudy Tube #[address] [facility] Spinal CSF Tube 3 11/29 [place] Fluids Counted /2019 [facility] Spinal CSF RBC 94394 /uL 0 - 5 11/29 [place] Fluids Count /2019 [facility] Spinal CSF 114 /uL 0 - 5 11/29 [place] Fluids Nucleated /2019 [facility] Spinal CSF Color - No Xantho 11/29 [place] Fluids Spun (11/29/19 1:53 PM) /2019 [facility] Spinal CSF Polys. 99 0 - 0 11/29 [place] Fluids /2019 [facility] Spinal CSF Eos 1 0 - 0 11/29 [place] Fluids /2019 [facility] Spinal CSF Slide See Comment 6 11/29 Result [place] Fluids Comment (11/29/19 1:53 PM) Comment: No Re gional abnormal Medical cells seen on Center Cytospin prepared slide. Spinal CSF Lymphs 0 11/29 [place] Fluids /2019 [facility] Spinal CSF Glucose 52 40 - 70 11/29 [place] Fluids [facility] Spinal CSF Protein 72 15 - 45 11/29 [place] Fluids [facility] Microbiolo Microbiology CSF 11/29 [place] gy/Serolog /Serology *NA* /2019 [facility] y (11/29/19 1:53 PM)
CSFNot Detected 7 Medical *NA* [place] (11/29/19 1:53 PM)
Not Detected Gram Stain Gram Stain White Blood Cells seen 11/29 [place] No organisms seen.
White Blood Cells seen / [facility] No organisms seen.
[facility] Culture Culture CSF No 11/29 [place] CSF growth
/2019 [facility] No Medical growth
[place] When performed, MONSE values are reported in mcg/ml.
Gram Stain Gram Stain White Blood Cells seen 11/29 [place] No organisms seen.
White Blood Cells seen / [facility] No organisms seen.
[facility] CBC w/Diff WBC 12.6 4.8 - 10.8 11/29 H [place] /2019 [facility] CBC w/Diff RBC 3.35 4.00 - 11/29 L [place] 5.40 [facility] CBC w/Diff Hgb 10.1 11.5 - 11/29 L [place] 16.0 [facility] CBC w/Diff Hct 30.0 37.0 - 11/29 L [place] 47.0 [facility] CBC w/Diff MCV 89.6 80.0 - 11/29 [place] 100.0 [facility] CBC w/Diff MCH 30.2 27.0 - 11/29 [place] 34.0 /2019 [facility] CBC w/Diff MCHC 33.8 32.0 - 11/29 [place] 37.0 [facility] CBC w/Diff RDW 13.6 11.5 - 11/29 [place] 16.0 [facility] CBC w/Diff Plt 198 130 - 400 11/29 [place] /[address] [place] [address] CBC w/Diff Neuts 82.3 35.0 - 11/29 H [place] 80.0 [facility] CBC w/Diff Lymphs 6.2 10.0 - 11/29 L [place] 55.0 [facility] CBC w/Diff Monos. 8.6 0.0 - 15.0 11/[address] CBC w/Diff Eos. 2.0 0.0 - 9.0 11/29 [place] [facility] CBC w/Diff Baso. 0.9 0.0 - 3.0 11/[address] CBC w/Diff ABS Neut 10.4 1.7 - 8.6 11/29 H [place] /[address] [place] [address] CBC w/Diff ABS Lymph 0.8 0.5 - 5.9 11/[address] CBC w/Diff ABS [place] 1.1 0.0 - 1.6 11/[address] CBC w/Diff ABS Eos 0.2 0.0 - 1.0 11/[address] CBC w/Diff ABS Baso 0.1 0.0 - 0.3 11/[address] CBC w/Diff CBC Scan Scan/Morph 11/29 [place] [address] [place] [address] CBC w/Diff RBC Morph See 11/29 [facility] CBC w/Diff PLT Morph Normal 11/[address] CBC w/Diff Plt Est Adequate Adequate 11/[address] CBC w/Diff Degmacytes 1+ 11/29 [place] (Bite Cells) Unless otherwise noted, tests performed at the following location: Regional [facility] CMP Sodium 134 134 - 144 11/29 [place] [address] [place] [address] CMP Potassium 3.7 3.5 - 5.1 11/[address] CMP Chloride 100 98 - 107 11/[address] CMP CO2 26 23 - 31 11/[address] CMP Glucose 100 70 - 99 11/29 H [place] [employer] at[employer] (ADA) Guidelines: [place] Optimal fa sting blood glucose is below 100 mg/dL. A person with pre-diabetes has a fasting blood glucose of 100-125. [facility] CMP BUN 9 10 - 20 11/[address] CMP Creatinine 0.65 0.57 - 11/29 Result is ID-GC/MS st andardized [place] 1. [facility] CMP Anion Gap 12 5 - 15 11/29 [facility]2019 [facility] CMP Calcium 8.0 8.4 - 10.2 11/29 L [facility]2019 [facility] CMP Protein, 5.4 6.4 - 8.3 11/29 L [place] Total [facility] CMP Albumin 2.6 3.4 - 5.0 11/[address] CMP Alkphos 186 40 - 150 11/[address] CMP ALT 25 0 - 55 11/[address] CMP AST 44 5 - 34 11/[address] CMP Bili Total 0.5 0.2 - 1.2 11/[address] CMP eGFR >60 11/29 NA NORMALIZED FOR ID-GC/MS STANDARDIZED CREATININE [facility] (NON-AF AMR=NON-, AF AMR=) [facility] KIDNEY [facility] Center STAGE 1 and 2 >60 mL/min /1.73 square meters STAGE 3 30-59 mL/min/1.7 3 square meters STAGE 4 15-29 mL/min/1.7 3 square meters STAGE 5 <14 mL/min/1.73 square meters CMP eGFR >60 11/29 NA NORMALIZED FOR ID-GC/MS STANDARDIZED CREATININE [place] Afr/Am (NON-AF AMR=NON-, AF AMR=) Regional KIDNEY DAMAGE STAGES FRO [facility] KIDNEY [facility] [place] STAGE 1 and 2 >60 mL/min /1.73 square meters STAGE 3 30-59 mL/min/1.7 3 square meters STAGE 4 15-29 mL/min/1.7 3 square meters STAGE 5 <14 mL/min/1.73 square meters CMP Globulin 2.8 2.5 - 4.1 11/29 [facility] CMP A/G Ratio 0.9 0.8 - 1.6 11/29 [facility] CMP Drug Calc 73.100 11/29ler Weight (kg) [facility] Height (cm) 167.600 11/29 Unless otherwise noted, tests performed at the following location: Regional [facility] Mg Mg 1.7 1.6 - 2.6 11/29 Unless otherwise noted, tests performed at the following location: Regional [facility] Lactic Lactic Acid 1.0 0.5 - 2.0 11/29 [place] Unless oth erwise noted, tests performed at the following location: [facility] CBC RBC Morph See Morphology 11/[facility] 9[facility]40 AM[facility] CBC PLT Morph Normal 11/29 [place] (11/29/19 9:40 AM) [facility] CBC Plt Est Adequate Adequate 11/29 [place] (11/29/19 9:40 AM) [facility] CBC Degmacytes 1+ 11/29 [place] (Bite Cells) (11/29/19 9:40 AM) [facility] General Mg 1.7 1.6 - 2.6 11/29 [place] Chemistry [address] [place] [address] General Protein, 5.4 6.4 - 8.3 11/29 [place] Chemistry Total [facility] General Albumin 2.6 3.4 - 5.0 11/29 [place] Chemistry [address] [place] [address] General AST 44 5 - 34 11/29 [place] Chemistry [address] General ALT 25 0 - 55 11/[address] General Alkphos 186 40 - 150 11/[address] General Bili Total 0.5 0.2 - 1.2 11/[address] General Globulin 2.8 2.5 - 4.1 11/[address] General A/G Ratio 0.9 0.8 - 1.6 11/[address] General Lactic Acid 1.0 0.5 - 2.0 11/[address] Troponin-I Troponin I 9.24 - <=0.30 11/28 CRIT Previous critical Troponin called. [place] [facility] Unless otherwise noted, tests performed at the following location: Medical [place] CK CK 243 29 - 168 02 H [place] Unless otherwise noted, tests performed at the following location: [facility] CMP Sodium 135 134 - 144 11/28 [place] 2019 [facility] CMP Potassium 3.6 3.5 - 5.1 11/[address] CMP Chloride 101 98 - 107 11/[address] CMP CO2 23 23 - 31 11/[address] CMP Glucose 100 70 - 99 11/28 H [place] [employer]ion (ADA) Guidelines: Optimal fa sting blood glucose is below 100 mg/dL. A person with pre-diabetes has a fasting blood glucose of 100-125. [facility] CMP BUN 9 10 - 20 11/[address] CMP Creatinine 0.64 0.57 - 11/28 Result is ID-GC/MS st andardized [place] 1.11 [facility] CMP Anion Gap 15 5 - 15 11/[address] CMP Calcium 8.0 8.4 - 10.2 [address] CMP Protein, 5.5 6.4 - 8.3 25 L [place] [facility] CMP Albumin 2.6 3.4 - 5.0 /[address] CMP Alkphos 204 40 - 150 02/[address] CMP ALT 28 0 - 55 11/[address] CMP AST 64 5 - 34 02/[address] CMP Bili Total 0.5 0.2 - 1.2 02/[address] [place] [address] CMP eGFR >60 11/28 NA NORMALIZED FOR ID-GC/MS STANDARDIZED CREATININE [place] Non- (NON-AF AMR=NON-, AF AMR=) Regional Am KIDNEY DAMAGE STAGES FRO [facility] Center STAGE 1 and 2 >60 mL/min /1.73 square meters STAGE 3 30-59 mL/min/1.7 3 square meters STAGE 4 15-29 mL/min/1.7 3 square meters STAGE 5 <14 mL/min/1.73 square meters CMP eGFR >60 11/28 NA NORMALIZED FOR ID-GC/MS STANDARDIZED [facility] (NON-AF AMR=NON-, AF AMR=) Regional KIDNEY DAMAGE STAGES FRO [facility] Center STAGE 1 and 2 >60 mL/min /1.73 square meters STAGE 3 30-59 mL/min/1.7 3 square meters STAGE 4 15-29 mL/min/1.7 3 square meters STAGE 5 <14 mL/min/1.73 square meters CMP Globulin 2.9 2.5 - 4.1 11/28 [facility] CMP A/G Ratio 0.9 0.8 - 1.6 11/28 [facility] CMP Drug Calc 73.100 11/28 [place] Weight (kg) [facility] Height (cm) 167.600 11/28 [place] Unless otherwise noted, tests performed at the following location: [facility] CRP High CRP High 62.34 0.00 - 11/28 H [place] Sens Sens 5. Unless david chavira noted, tests performed at the following location: [facility] Mg Mg 1.7 1.6 - 2.6 11/28 Unless otherwise noted, tests performed at the following location: [facility] CBC w/Diff WBC 14.2 4.8 - 10.8 11/28 H [facility] CBC w/Diff RBC 3.36 4.00 - 11/28 L [place] 5.40 [facility] CBC w/Diff Hgb 10.1 11.5 - 11/28 L [place] 16.0 [facility] CBC w/Diff Hct 30.5 37.0 - 11/28 L [place] 47.0 [facility] CBC w/Diff MCV 90.7 80.0 - 11/28 [place] 100.0 [facility] CBC w/Diff MCH 30.0 27.0 - 11/28 [place] 34.0 [facility] CBC w/Diff MCHC 33.1 32.0 - 11/28 [place] 37.0 [facility] CBC w/Diff RDW 13.5 11.5 - 11/28 [place] 16.0 [facility] CBC w/Diff Plt 211 130 - 400 11/28 [facility] CBC w/Diff Neuts 84.9 35.0 - 11/28 H 80.0 [facility] CBC w/Diff Lymphs 4.9 10.0 - 11/28 L 55.0 [facility] CBC w/Diff Monos. 8.7 0.0 - 15.0 11/28 [facility] CBC w/Diff Eos. 0.7 0.0 - 9.0 11/28 [facility] CBC w/Diff Baso. 0.8 0.0 - 3.0 11/28 [facility] CBC w/Diff ABS Neut 12.0 1.7 - 8.6 11/28 H [facility] CBC w/Diff ABS Lymph 0.7 0.5 - 5.9 11/28 [facility] CBC w/Diff ABS [place] 1.2 0.0 - 1.6 11/28 [facility] CBC w/Diff ABS Eos 0.1 0.0 - 1.0 11/28 [facility] CBC w/Diff ABS Baso 0.1 0.0 - 0.3 11/28 [facility] CBC w/Diff CBC Scan Auto Diff 11/28 Unless otherwise noted, tests performed at the following location: Regional [facility] Lactic Lactic Acid 1.0 0.5 - 2.0 11/28 Unless oth erwise noted, tests performed at the following location: Regional Medical [place] Cardiac CRP High 62.34 0.00 - 11/28 [place] Sens 5.00 [facility] Cardiac Troponin I 9.24 <=0.30 11/28 Result [place] ng/mL Comment: [facility] Previous [facility] Center Troponin called. Cardiac CK 243 29 - 168 11/28 [place] [facility] General Mg 1.7 1.6 - 2.6 11/28 [place] Chemistry [facility] General Lactic Acid 1.0 0.5 - 2.0 11/28 [place] Chemistry 2019 [facility] General Protein, 5.5 6.4 - 8.3 11/28 [place] Chemistry Total [facility] General Albumin 2.6 3.4 - 5.0 11/28 [place] Chemistry [address] General AST 64 5 - 34 11/28 [place] Chemistry [facility] General ALT 28 0 - 55 11/28 [place] Chemistry [address] [place] [address] General Alkphos 204 40 - 150 11/28 [place] Chemistry [address] General Bili Total 0.5 0.2 - 1.2 11/28 [place] Chemistry [address] General Globulin 2.9 2.5 - 4.1 11/28 [place] Chemistry [address] General A/G Ratio 0.9 0.8 - 1.6 11/[address] Cocci Cocci IgG Negative Negative 11/28 Specimens with Positive results for Cocci IgG will be sent to reference laboratory for Cocci Comp Fix Testing. Additional testing may be requested if clinically indicated. [place] IgM/IgG Specimens with Positive results for Cocci IgM will be sent to Reference Laboratory for Immunodiffusion Testing. Results may not correlate between EIA and Immunodiffusion due to difference in methodology [facility] w/[facility] . Additional testing may be requested if clinically indicated. Medical It is charles mmended that a new specimen be obtained and retested in 2-3 weeks for a specimen with an indeterminate result. [place] Cocci Cocci IgM Negative Negative 11/28 Specimens with Positive results for Cocci IgG will be sent to reference laboratory for Cocci Comp Fix Testing. Additional testing may be requested if clinically indicated. [place] IgM/IgG Specimens with Positive results for Cocci IgM will be sent to Reference Laboratory for Immunodiffusion Testing. Results may not correlate between EIA and Immunodiffusion due to difference in methodology Regional w/rflx . Additional testing may be requested if clinically indicated. Medical It is charles mmended that a new specimen be obtained and retested in 2-3 weeks for a specimen with an indeterminate result. Center Unless otherwise noted, tests performed at the following location: Serology/I Strep Pneumo Negative Negative 11/28 Result Comment: INTERPRETIVE INFORMATION: Streptococcus pneumoniae Ag, Urine [place] mmunology Ag, Urine. False-pos itives may occur because of cross- reactivity with other Regional members of the S. mitis group. Clinical correlation is Medical recommended. Center Performed by KEERTHI trevino, [address] [place] [address] [email or web address], Kurt mccoy MD, Lab. Director Troponin-I Troponin I 5.86 - <=0.30 11/28 CRIT Previous critical Troponin called. Regional Unless otherwise noted, tests performed at the following location: Medical [place] CK CK 226 29 - 168 11/28 H Unless otherwise noted, tests performed at the following location: [facility] Cardiac Troponin I 5.86 <=0.30 11/28 Result ng/mL Comment: [facility] Troponin called. Cardiac CK 226 29 - 168 11/28 [facility] Acute Hepatitis Bs Non-Reacti Non-Reacti 11/28 The u se of the assay is for clinical diagnosis purposes only. Not intended for use in screening blood, plasma, or tissue donors. [facility] Hepatitis Ag ve ve [facility] Acute Hepatitis A Non-Reacti Non-Reacti 11/28 The us e of the assay is for clinical diagnosis purposes only. Not intended for use in screening blood, plasma, or tissue donors. [facility] Hepatitis AB, IgM ve ve It is charles mmended that a new specimen be obtained and tested in one week for a specimen with a Borderline result for Hepatitis A Ab, IgM. [facility] Acute Hepatitis Bc Non-Reacti Non-Reacti 11/28 The u se of the assay is for clinical diagnosis purposes only. Not intended for use in screening blood, plasma, or tissue donors. [facility] Hepatitis Ab, IgM ve ve It is charles mmended that a new specimen be obtained and tested in one week for a specimen with an indeterminate result for Hepatitis Bc Ab, IgM. [facility] Acute Hepatitis C Non-Reacti Non-Reacti 11/28 The us e of this assay is for clinical diagnostic purposes only. Not intended for use in screening blood, plasma, or tissue donors. [facility] Hepatitis Ab ve ve Any ?Preli m Reactive? or ?Reactive? result will be sent to Reference Lab for confirmatory testing. [facility] It is charles mmended that a new specimen be obtained and tested in one week for a specimen with an indeterminate result for Hepatitis C Ab. Medical Center Unless otherwise noted, tests performed at the following location: PCT Procalcitoni 0.08 0.05 - 11/28 Prematu re and infants have different reference ranges. [place] floyd 0. Interpretations below ar e for adult patients only. Regional Medical SYSTEMIC B ACTERIAL INFECTION PCT REFERENCE RANGE/INTERPRETATION FOR ADULTS ONLY: Center <0.50 ng/mL Sepsis not l ikely. Local bacterial infection possible. Low risk of progression . >=0.50-2.0 0 ng/mL Sepsis possible. Correlate with condition. Moderate risk. >=2.00-10.00 ng/mL Sepsi s likely. High risk of progression. >10.00 ng/mL High likeli garay of severe sepsis. DECISION M AKING ON ANTIBIOTIC THERAPY FOR PATIENTS WITH SUSPECTED OR CONFINED LRTI <0.10 ng/mL Antibiotic t herapy strongly discouraged. 0.10-0.25 ng/mL Antibiot ic therapy discouraged. 0.26-0.50 ng/mL Antibiot ic therapy encouraged. >0.50 ng/mL Antibiotic t herapy strongly encouraged. False posi tives include: Trauma, pancreatitis, thyroid cancer, cardiogenic shock, surgery, and receipt of immunomodulatory agents. Patients with liver failure and chronic hemodialysis have higher baseli ne levels. Patient may have false negatives for abscesses or other contained infections. If PCT mayela surement is done early after systemic infection has started (usually <6 hours), these values may still be low. Unless otherwise noted, tests performed at the following location: Troponin-I Troponin I 2.00 - <=0.30 11/28 [facility] Unless otherwise noted, tests performed at the following location: Medical Center FluAB RSV Influenza A, Negative Negative 11/28 [facility] FluAB RSV Influenza B, Negative Negative 11/28 [place] [facility] PCR PCR /2019 [facility] FluAB RSV RSV, PCR Negative Negative 11/28 [place] PCR [facility] FluAB RSV Influ/RSV Valid Valid 11/28 [place] PCR Internal [facility] FluAB RSV Influ/RSV 42006 11/28 NA [place] PCR Kit Lot# [facility] FluAB RSV Influ/RSV [id number] 11/28 NA [place] PCR Kit Exp Unless otherwise noted, tests performed at the following location: Regional [facility] CK CK 151 29 - 168 11/27 Unless otherwise noted, tests performed at the following location: Regional [facility] Rapid Strep A, Negative 11/27 Specimens with negative results should be confirmed by culture. [place] Strep Rapid Test [facility] Rapid Strep A Kit [id number] 11/27 NA [place] Strep Exp Date [facility] Rapid Strep A Kit [id number] 11/27 NA [place] Strep Lot # [facility] Rapid Strep A Neg Negative Negative 11/27 [place] Strep Control [facility] Rapid Strep A Pos Positive Positive 11/27 [place] Strep Control Unless oth erwise noted, tests performed at the following location: [facility] Cardiac Troponin I 2.00 <=0.30 11/27 Result [facility] ng/mL Comment: [facility] Center called. Cardiac CK 151 29 - 168 11/27 [facility] Serology/I Cocci IgM Negative Negative 11/27 [facility] mmunology (11/27/19 3:15 PM) [facility] Serology/I Cocci IgG Negative Negative 11/27 [facility] mmunology (11/27/19 3:15 PM) [facility] Serology/I Hepatitis Bs Non-Reactive 11/27 [facility] Ag (11/27/19 3:15 PM) [facility] Serology/I Hepatitis A Non-Reactive 11/27 Jacques dler mmunology AB, IgM (11/27/19 3:15 PM) [facility] Serology/I Hepatitis Bc Non-Reactive 11/27 Rachel ndler mmunology Ab, IgM (11/27/19 3:15 PM) [facility] Serology/I Hepatitis C Non-Reactive 11/27 Jacques dler mmunology Ab (11/27/19 3:15 PM) [facility] Special Procalcitoni 0.08 0.05 - 11/27 [facility] Chemistry n 0.15 Regional Other Medical Center Serology/I Strep A, Negative 11/27 [facility] mmunology Rapid Test (11/27/19 2:45 PM) R [facility] Microbiolo Microbiology Negative 11/27 [facility] r gy/Serolog /Serology (11/27/19 2:45 PM)
Negative [facility] y (11/27/19 2:45 PM)
Negative Medical (11/27/19 2:45 PM)
Negative [place] (11/27/19 2:45 PM)
Negative (11/27/19 2:45 PM)
Negative (11/27/19 2:45 PM)
Troponin-I Troponin I 1.21 - <=0.30 11/27 CRIT Patient Name and Critical test results read back for verification. Critical value called to: Eulalia Saavedra, @ 11/27/2019 11:33:18 [facility], by Eulalia Vital. Regional Unless otherwise noted, tests performed at the following location: Medical Center CMP Sodium 138 134 - 144 11/27 [place] [facility] CMP Potassium 3.8 3.5 - 5.1 11/27 [facility]2019 [facility] CMP Chloride 101 98 - 107 11/27 [facility] [address] [place] [address] CMP CO2 25 23 - 31 11/[address] CMP Glucose 123 70 - 99 11/27 H [place] [employer]ion (ADA) Guidelines: [place] Optimal fa sting blood glucose is below 100 mg/dL. A person with pre-diabetes has a fasting blood glucose of 100-125. [facility] CMP BUN 9 10 - 20 11/27 L [facility] [address] [place] [address] CMP Creatinine 0.72 0.57 - 11/27 Result is ID-GC/MS st andardized [facility] 1.11 [facility] CMP Anion Gap 16 5 - 15 24 H [place] [facility] CMP Calcium 8.8 8.4 - 10.2 11/27 [facility] CMP Protein, 6.2 6.4 - 8.3 11/27 L [facility] Total [facility] CMP Albumin 2.9 3.4 - 5.0 / L [facility] [address] [place] [address] CMP Alkphos 258 40 - 150 02/24 H [facility] CMP ALT 34 0 - 55 11/27 [place] [facility] CMP AST 40 5 - 34 /24 H [place] [facility] CMP Bili Total 0.5 0.2 - 1.2 11/27 [facility] [address] [place] [address] CMP eGFR >60 11/27 NA NORMALIZED FOR ID-GC/MS STANDARDIZED CREATININE [facility] (NON-AF AMR=NON-, AF AMR=) [facility] Am [facility] Center STAGE 1 and 2 >60 mL/min /1.73 square meters STAGE 3 30-59 mL/min/1.7 3 square meters STAGE 4 15-29 mL/min/1.7 3 square meters STAGE 5 <14 mL/min/1.73 square meters CMP eGFR >60 11/27 NA NORMALIZED FOR ID-GC/MS STANDARDIZED CREATININE [facility] / (NON-AF AMR=NON-, AF AMR=) Regional KIDNEY DAMAGE STAGES [facility] KIDNEY [facility] Center STAGE 1 and 2 >60 mL/min /1.73 square meters STAGE 3 30-59 mL/min/1.7 3 square meters STAGE 4 15-29 mL/min/1.7 3 square meters STAGE 5 <14 mL/min/1.73 square meters CMP Globulin 3.3 2.5 - 4.1 02/24 [place] /2020 [facility] CMP A/G Ratio 0.9 0.8 - 1.6 11/27 [facility] CMP Drug Calc 72.562 11/27ler Weight (kg) [facility] CMP Height (cm) 167.640 11/27 Unless otherwise noted, tests performed at the following location: Regional [facility] Mg Mg 1.8 1.6 - 2.6 11/27 Unless otherwise noted, tests performed at the following location: Regional [facility] CBC w/Diff WBC 14.1 4.8 - 10.8 11/27 H [facility] CBC w/Diff RBC 3.82 4.00 - 11/27 L [place] 5.40 [facility] CBC w/Diff Hgb 11.6 11.5 - 11/27 [place] 16.0 [facility] CBC w/Diff Hct 34.6 37.0 - 11/27 L [place] 47.0 [facility] CBC w/Diff MCV 90.5 80.0 - 11/27ler 100.0 [facility] CBC w/Diff MCH 30.3 27.0 - 11/27 [place] 34.0 [facility] CBC w/Diff MCHC 33.5 32.0 - 11/27 [place] 37.0 [facility] CBC w/Diff RDW 13.5 11.5 - 11/27 16.0 [facility] CBC w/Diff Plt 244 130 - 400 11/27 [facility] CBC w/Diff Neuts 89.9 35.0 - 11/27 H 80.0 [facility] CBC w/Diff Lymphs 4.1 10.0 - 11/27 L [place] 55.0 [facility] CBC w/Diff Monos. 5.3 0.0 - 15.0 11/27 [facility] CBC w/Diff Eos. 0.2 0.0 - 9.0 11/27 [facility] CBC w/Diff Baso. 0.5 0.0 - 3.0 11/27 [facility] CBC w/Diff ABS Neut 12.7 1.7 - 8.6 11/27 H [facility] CBC w/Diff ABS Lymph 0.6 0.5 - 5.9 11/27 [facility] CBC w/Diff ABS [place] 0.8 0.0 - 1.6 11/27 [facility] CBC w/Diff ABS Eos 0.0 0.0 - 1.0 11/27 [facility] CBC w/Diff ABS Baso 0.1 0.0 - 0.3 11/27 [facility] CBC w/Diff CBC Scan Auto Diff 11/27 Unless otherwise noted, tests performed at the following location: Regional [facility] PT PT 16.6 10.0 - 11/27 H 12. [facility] PT INR 1.46 11/27 NA INR THERAPEUTIC RANGE: C Use of the INR should be limited to therapeutic monitoring Regional of patients on stable lo ng-term warfarin therapy. Medical Prophylaxis/treatment of venous thromboembolism .. INR 2-3 Center Prophylaxis/treatment of pulmonary embolism .......... INR 2-3 Prevention of systemic e mbolism from atrial fibrillation, myocardial infarction, t issue heart valves, valvular heart disease, and recurrent s ystemic embolism .................INR 2-3 Prevention of systemic e mbolism from mechanical prosthetic heart valv es ................................. ............................INR 2.5-3.5 Unless otherwise noted, tests performed at the following location: PTT PTT 29.5 25.5 - 11/27 Interpretive data for PT T-APTT: [place] 36.0 For patien ts receiving unfractionated heparin the therapeutic range is 65.2-86.8 seconds as measured by the APTT which roughly corresponds to the recommended heparin concentration of 0.3-0.7 IU/mL as measured by the anti Xa-assay. Regional For patien ts on direct thrombin inhibitors, the APTT therapeutic range is 46.2-77.0 seconds. Medical Center Unless otherwise noted, tests performed at the following location: Cardiac Troponin I 1.21 <=0.30 02/24 Result [place] ng/mL Comment: Regional Patient Name Medical and Critical Center test results read back for verification. Critical value called to: Eulalia Saavedra, @ 11/27/2019 11:33:18 [facility], by Eulalia Vital. General Protein, 6.2 6.4 - 8.3 11/27 [facility] Chemistry Total [facility] General Albumin 2.9 3.4 - 5.0 11/27 [place] [facility] 2020 [facility] General AST 40 5 - 34 11/27 [place] [facility] 2020 [facility] General ALT 34 0 - 55 11/27ler Chemistry 2020 [facility] General Alkphos 258 40 - 150 11/27ler Chemistry 2020 [facility] General Bili Total 0.5 0.2 - 1.2 11/27 [place] Chemistry [facility] General Globulin 3.3 2.5 - 4.1 11/27 [place] Chemistry [facility] General A/G Ratio 0.9 0.8 - 1.6 11/27 [place] Chemistry [facility] General Mg 1.8 1.6 - 2.6 11/27 [place] Chemistry [facility] General Blood 130 70 - 130 11/25 [facility] Chemistry Glucose, [facility] General Mg 1.9 1.6 - 2.6 11/24 [facility] Chemistry [facility] General eGFR >60 11/24 [facility] Chemistry Non- [facility] General eGFR >60 11/24 [facility] Chemistry Afr/Amer /2019 [facility] General Glucose 95 70 - 99 11/24 [facility] Chemistry Level [facility] General BUN 12 10 - 20 11/24 [facility] Chemistry [facility] General Creatinine 0.63 0.57 - 11/24 [facility] Chemistry 1.11 [facility] General Sodium 134 134 - 144 11/24 [facility] Chemistry [facility] General Potassium 3.9 3.5 - 5.1 11/24 [facility] Chemistry [facility] General Chloride 96 98 - 107 11/24 [facility] Chemistry /2019 [facility] General CO2 29 23 - 31 11/24 [facility] Chemistry /2019 [facility] General Calcium 8.3 8.4 - 10.2 11/24 [facility] Chemistry /2019 [facility] General Anion Gap 13 5 - 15 11/24 [facility] Chemistry /2019 [facility] General Blood 109 70 - 130 11/24 [facility] Chemistry Glucose, /2019 [facility] CBC CBC Scan Auto Diff 11/23 [facility] (11/23/19 5:13 AM) /2019 [facility] CBC WBC 15.3 4.8 - 10.8 11/23 [facility] /2019 [facility] CBC RBC 3.41 4.00 - 11/23 [facility] 5.40 /2019 [facility] CBC Hgb 10.5 11.5 - 11/23 [facility] 16.0 /2019 [facility] CBC Hct 30.7 37.0 - 02 [facility] 47.0 /2019 [facility] CBC MCV 90.0 80.0 - 11/23 [facility] 100.0 /2019 [facility] CBC MCH 30.7 27.0 - 11/23 [facility] 34.0 /2019 [facility] CBC MCHC 34.1 32.0 - 11/23 [facility] 37.0 /2019 [facility] CBC RDW 13.3 11.5 - 02 [facility] 16.0 /2020 [facility] CBC Plt 268 130 - 400 11/23 [facility] /2020 [facility] CBC Neuts 79.3 35.0 - 11/23 [facility] 80.0 /2020 [facility] CBC Lymphs 5.9 10.0 - 11/23 [facility] 55.0 /2019 [facility] CBC Monos. 12.9 0.0 - 15.0 11/23 [facility] /2019 [facility] CBC Eos. 1.2 0.0 - 9.0 02/20 [facility] /2019 [facility] CBC Baso. 0.7 0.0 - 3.0 11/23 [facility] /2019 [facility] CBC ABS Neut 12.1 1.7 - 8.6 11/23 [facility] /2019 [facility] CBC ABS Lymph 0.9 0.5 - 5.9 11/23 [facility] CBC ABS [place] 2.0 0.0 - 1.6 11/23 [facility] /2019 [facility] CBC ABS Eos 0.2 0.0 - 1.0 11/23 [facility] /2019 [facility] CBC ABS Baso 0.1 0.0 - 0.3 11/23 [facility] /2019 [facility] General Mg 1.7 1.6 - 2.6 11/23 [facility] Chemistry /2019 [facility] General Glucose 102 70 - 99 11/23 [facility] Chemistry Level /2019 [facility] General BUN 13 10 - 20 11/23 [facility] Chemistry /2019 [facility] General Creatinine 0.59 0.57 - 02 [facility] 1.11 [facility] General Sodium 134 134 - 144 11/23 [facility] Chemistry /2019 [facility] General Potassium 3.7 3.5 - 5.1 11/23 [facility] Chemistry /2019 [facility] General Chloride 95 98 - 107 11/23 [facility] Chemistry /2019 [facility] General CO2 29 23 - 31 20 [facility] Chemistry /2019 [facility] General Calcium 8.5 8.4 - 10.2 11/23 [facility] Chemistry /2019 [facility] General Protein, 5.3 6.4 - 8.3 20 [facility] Total /2019 [facility] General Albumin 2.4 3.4 - 5.0 20 [facility] Chemistry [facility] General AST 71 5 - 34 11/23 [facility] Chemistry [facility] General ALT 74 0 - 55 11/23 [facility] Chemistry [facility] General Alkphos 290 40 - 150 11/23 [facility] Chemistry /2019 [facility] General Bili Total 0.5 0.2 - 1.2 11/23 [facility] Chemistry [facility] General Anion Gap 14 5 - 15 11/23 [facility] Chemistry /2019 [facility] General Globulin 2.9 2.5 - 4.1 11/23 [facility] Chemistry /2019 [facility] General A/G Ratio 0.8 0.8 - 1.6 11/23 [facility] Chemistry [facility] General eGFR >60 11/23 [facility] Afr/Amer /2019 [facility] General eGFR >60 11/23 [facility] Chemistry Non- /2019 [facility] General Blood 111 70 - 130 11/22 [facility] Chemistry Glucose, /2019 [facility] General Blood 96 70 - 130 11/21 [facility] Chemistry Glucose, /2019 [facility] General Blood 111 70 - 130 11/20 [facility] Chemistry Glucose, /2019 [facility] General Blood 152 70 - 130 11/19 [facility] Chemistry Glucose, /2019 [facility] General Blood 115 70 - 130 11/18 [facility] Chemistry Glucose, /2019 [facility] General Blood 137 70 - 130 11/17 [facility] Chemistry Glucose, /2020 [facility] General Blood 122 70 - 130 11/17 [facility] Chemistry Glucose, /2020 [facility] General Blood 109 70 - 130 11/16 [facility] Chemistry Glucose, /2019 [facility] CBC CBC Scan Auto Diff 11/16 [facility] (11/16/19 5:13 AM) /2019 [facility] CBC WBC 17.6 4.8 - 10.8 11/16 [facility] /2019 [facility] CBC RBC 3.65 4.00 - 0213 [facility] 5.40 /2020 [facility] CBC Hgb 11.3 11.5 - 02 [facility] 16.0 /2020 [facility] CBC Hct 33.3 37.0 - 02 [facility] 47.0 /2020 [facility] CBC MCV 91.5 80.0 - 02 [facility] 100.0 /2020 [facility] CBC MCH 31.1 27.0 - 02 [facility] 34.0 /2020 [facility] CBC MCHC 34.0 32.0 - 02 [facility] 37.0 /2020 [facility] CBC RDW 13.0 11.5 - 02 [facility] 16.0 /2020 [facility] CBC Plt 122 130 - 400 11/16 [facility] /2019 [facility] CBC Neuts 85.1 35.0 - 02 [facility] 80.0 /2020 [facility] CBC Lymphs 5.4 10.0 - 02 [facility] 55.0 /2020 [facility] CBC Monos. 8.7 0.0 - 15.0 11/16 [facility] /2019 [facility] CBC Eos. 0.3 0.0 - 9.0 11/16 [facility] /2019 [facility] CBC Baso. 0.5 0.0 - 3.0 11/16 [facility] /2019 [facility] CBC ABS Neut 15.0 1.7 - 8.6 11/16 [facility] /2020 [facility] CBC ABS Lymph 0.9 0.5 - 5.9 11/16 [facility] CBC ABS [place] 1.5 0.0 - 1.6 11/16 [facility] CBC ABS Eos 0.1 0.0 - 1.0 11/16 [facility] CBC ABS Baso 0.1 0.0 - 0.3 0213 [facility] /2019 [facility] General Glucose 106 70 - 99 11/16 [facility] Chemistry Level /2020 [facility] General BUN 14 10 - 20 11/16 [facility] Chemistry /2019 [facility] General Creatinine 0.71 0.57 - 02 [facility] Chemistry 1.11 /2019 [facility] General Sodium 134 134 - 144 11/16 [facility] Chemistry /2019 [facility] General Potassium 3.8 3.5 - 5.1 11/16 [facility] Chemistry /2019 [facility] General Chloride 97 98 - 107 11/16 [facility] Chemistry /2019 [facility] General CO2 30 23 - 31 11/16 [facility] Chemistry /2019 [facility] General Calcium 8.6 8.4 - 10.2 11/16 [facility] Chemistry /2019 [facility] General Protein, 5.4 6.4 - 8.3 11/16 [facility] Chemistry Total /2019 [facility] General Albumin 2.7 3.4 - 5.0 11/16 [facility] Chemistry /2019 [facility] General AST 33 5 - 34 11/16 [facility] Chemistry /2019 [facility] General ALT 28 0 - 55 11/16 [facility] Chemistry /2019 [facility] General Alkphos 153 40 - 150 11/16 [facility] Chemistry /2019 [facility] General Bili Total 0.5 0.2 - 1.2 11/16 [facility] Chemistry /2019 [facility] General Anion Gap 11 5 - 15 11/16 [facility] Chemistry /2019 [facility] General Globulin 2.7 2.5 - 4.1 11/16 [facility] Chemistry /2019 [facility] General A/G Ratio 1.0 0.8 - 1.6 11/16 [facility] Chemistry /2019 [facility] General eGFR >60 11/16 [facility] Chemistry Non- /2019 [facility] General eGFR >60 11/16 [facility] Chemistry Afr/Amer [facility] General Mg 1.7 1.6 - 2.6 11/16 [facility] Chemistry [facility] CBC w/Diff WBC 15.3 4.8 - 10.8 02/[address] [facility] CBC w/Diff RBC 4.00 4.00 - 11/15 [facility] 5.40 /2019 [facility] CBC w/Diff Hgb 12.4 11.5 - 02 [facility] 16.0 [facility] CBC w/Diff Hct 35.6 37.0 - 02 L [facility] 47.0 [facility] CBC w/Diff MCV 89.0 80.0 - 11/[address] [facility] 100.0 [facility] CBC w/Diff MCH 31.0 27.0 - 11/[address] [facility] 34.0 [facility] CBC w/Diff MCHC 34.8 32.0 - 11/[address] [facility] 37.0 [facility] CBC w/Diff RDW 13.1 11.5 - [address] [facility] 16.0 [facility] CBC w/Diff Plt 149 130 - 400 11/[address] [facility] [address] [place] [address] CBC w/Diff CBC Scan Manual 11/15 [facility] Diff [facility] CBC w/Diff Man Bands 2 0 - 5 11/[address] CBC w/Diff Neut Abs Man 12.5 1.7 - 8.6 11/[address] [facility] [address] [place] [address] CBC w/Diff Lymph Abs 0.5 0.5 - 5.9 11/[address] [facility] Man [address] [place] [address] CBC w/Diff [place] Abs Man 2.1 0.0 - 1.6 11/15 H [facility] [address] [place] [address] CBC w/Diff Eos Abs Man 0.2 0.0 - 1.0 11/15 [facility] [address] [place] [address] CBC w/Diff RBC Morph Normal 11/15 [facility] [address] [place] [address] CBC w/Diff Plt Est Adequate Adequate 11/[address] [facility] [address] [place] [address] CBC w/Diff Man Segs 80 35 - 80 11/15 [facility] [address] [place] [address] CBC w/Diff Man Lymphs 3 10 - 55 11/[address] [facility] CBC w/Diff Man Monos 14 0 - 15 11/[address] [facility] CBC w/Diff Man Eos 1 0 - 9 11/15 [facility] Unless otherwise noted, tests performed at the following location: [place] [facility] Sodium 134 136 - 145 11/[address] [facility] (Basic) [facility] BMP Potassium 3.6 3.5 - 5.1 11/[address] [facility] (Basic) [facility] BMP Chloride 98 98 - 107 11/15 [facility] (Basic) [facility] BMP CO2 25 23 - 31 11/[address] [facility] (Basic) [address] [place] [address] BMP Glucose 112 83 - 110 11/15 H [place] D [employer]abetic Association (ADA) Guidelines: [facility] (Basic) Level Optimal fa sting blood glucose is below 100 mg/dL. A person with pre-diabetes has a fasting blood glucose of 100-125. [facility] BMP BUN 13 10 - 20 11/[address] [facility] (Basic) [address] [place] [address] BMP Creatinine 0.71 0.57 - 11/15 Result is ID-GC/MS st andardized [facility] (Basic) 1.25 [facility] BMP Calcium 8.8 8.4 - 10.2 11/15 [facility] (Basic) [address] [place] [address] BMP Anion Gap 15 10 - 20 11/[address] [facility] (Basic) [address] [place] [address] BMP eGFR >60 11/15 NA NORMALIZED FOR ID-GC/MS STANDARDIZED CREATININE [facility] (Basic) Non- (NON-AF AMR=NON-, AF AMR=) [place] Am KIDNEY DAMAGE STAGES FRO [facility] STAGE 1 and 2 >60 mL/min /1.73 square meters STAGE 3 30-59 mL/min/1.7 3 square meters STAGE 4 15-29 mL/min/1.7 3 square meters STAGE 5 <14 mL/min/1.73 square meters BMP eGFR >60 11/15 NA NORMALIZED FOR ID-GC/MS STANDARDIZED CREATININE [facility] ([facility]) Afr/Amer (NON-AF AM R=NON-, AF AMR=) [place] KIDNEY DAMAGE STAGES FRO [facility] STAGE 1 and 2 >60 mL/min /1.73 square meters STAGE 3 30-59 mL/min/1.7 3 square meters STAGE 4 15-29 mL/min/1.7 3 square meters STAGE 5 <14 mL/min/1.73 square meters BMP Drug Calc 68.027 11/15 [facility] (Basic) Weight (kg) [facility] Height (cm) 167.640 11/15 [facility] ([facility]) Unless oth fan noted, tests performed at the following location: [place] [facility] PT PT 15.0 10.0 - 11/15 H [facility] . [facility] PT INR 1.33 11/15 NA INR THERAPEUTIC RANGE: [facility] Use of the INR should be limited to therapeutic monitoring [place] of patients on stable lo ng-term warfarin therapy. Medical Prophylaxis/treatment of venous thromboembolism .. INR 2-3 Center Prophylaxis/treatment of pulmonary embolism .......... INR 2-3 Prevention of systemic e mbolism from atrial fibrillation, myocardial infarction, t issue heart valves, valvular heart disease, and recurrent s ystemic embolism .................INR 2-3 Prevention of systemic e mbolism from mechanical prosthetic heart valv es ................................. ............................INR 2.5-3.5 Unless otherwise noted, tests performed at the following location: PTT PTT 29.3 25.5 - 11/15 Interpretive data for PT T-APTT: [facility] For patien ts receiving unfractionated heparin the therapeutic range is 65.2-86.8 seconds as measured by the APTT which roughly corresponds to the recommended heparin concentration of 0.3-0.7 IU/mL as measured by the anti Xa-assay. [place] For patien ts on direct thrombin inhibitors, the APTT therapeutic range is 46.2-77.0 seconds. Medical Center Unless otherwise noted, tests performed at the following location: CBC WBC 15.3 4.8 - 10.8 11/[address] [facility] CBC RBC 4.00 4.00 - [address] [facility] 5.40 /2019 [facility] CBC Hgb 12.4 11.5 - 02 [facility] 16.0 [facility] CBC Hct 35.6 37.0 - [address] [facility] 47.0 [facility] CBC MCV 89.0 80.0 - 11/[address] [facility] 100.0 [facility] CBC MCH 31.0 27.0 - [address] [facility] 34.0 [facility] CBC MCHC 34.8 32.0 - [address] [facility] 37.0 [facility] CBC RDW 13.1 11.5 - 02 [facility] 16.0 [facility] CBC Plt 149 130 - 400 11/15 [facility] CBC CBC Scan Manual Diff 11/15 [facility] (11/15/19 8:33 AM) [facility] CBC Neut Abs Man 12.5 1.7 - 8.6 11/15 [facility] [address] [place] [address] CBC Lymph Abs 0.5 0.5 - 5.9 11/15 [facility] Man [facility] CBC [place] Abs Man 2.1 0.0 - 1.6 11/15 [facility] [address] [place] [address] CBC Eos Abs Man 0.2 0.0 - 1.0 11/15 [facility] [address] [place] [address] CBC Man Segs 80 35 - 80 11/[address] CBC Man Lymphs 3 10 - 55 11/[address] CBC Man Monos 14 0 - 15 11/15 [facility] /[address] [place] [address] CBC Man Eos 1 0 - 9 11/[address] CBC Man Bands 2 0 - 5 11/15 [facility] /[address] [place] [address] CBC RBC Morph Normal 11/15 [facility] (11/15/19 8:33 AM) [facility] CBC Plt Est Adequate Adequate 11/15 [facility] (11/15/19 8:33 AM) [facility] General Glucose 112 83 - 110 11/15 [facility] Chemistry Level [facility] General BUN 13 10 - 20 11/15 [facility] Chemistry [facility] General Creatinine 0.71 0.57 - 11/15 [facility] 1. [facility] General eGFR >60 11/15 [facility] Non- /2019 [facility] General eGFR >60 11/15 [facility] Afr/Amer /2019 [facility] General Sodium 134 136 - 145 11/15 [facility] /2020 [facility] General Potassium 3.6 3.5 - 5.1 11/15 [facility] /2020 [facility] General Chloride 98 98 - 107 11/15 [facility] /2020 [facility] General CO2 25 23 - 31 11/15 [facility] /2020 [facility] General Anion Gap 15 10 - 20 11/15 [facility] Chemistry [facility] General Calcium 8.8 8.4 - 10.2 11/15 [facility] /2019 [facility] CBC Plt 141 130 - 400 11/15 [facility] General BUN 13 10 - 20 11/15 [facility] Chemistry [facility] General eGFR >60 11/15 [facility] Non- /2019 [facility] General Creatinine 0.69 0.57 - 11/15 [facility] Chemistry 1. [facility] General eGFR >60 11/15 [facility] Chemistry Afr/Amer /2019 [facility] General AST 76 5 - 34 11/10 [facility] Chemistry /2019 [facility] General ALT 104 0 - 55 11/10 [facility] Chemistry [facility] General Alkphos 250 40 - 150 11/10 [facility] Chemistry /2019 [facility] CBC CBC Scan Auto Diff 11/09 [facility] (11/09/19 4:49 AM) /2019 [facility] CBC WBC 11.5 4.8 - 10.8 02 [facility] /2019 [facility] CBC RBC 3.93 4.00 - 02 [facility] 5.40 /2019 [facility] CBC Hgb 12.4 11.5 - 02 [facility] 16.0 /2019 [facility] CBC Hct 36.3 37.0 - 02/06 [facility] 47.0 /2020 [facility] CBC MCV 92.6 80.0 - 02/06 [facility] 100.0 /2020 [facility] CBC MCH 31.6 27.0 - 02/06 [facility] 34.0 /2020 [facility] CBC MCHC 34.1 32.0 - 02/06 [facility] 37.0 /2020 [facility] CBC RDW 12.9 11.5 - 02/06 [facility] 16.0 /2020 [facility] CBC Plt 147 130 - 400 02/06 [facility] /2020 [facility] CBC Neuts 75.3 35.0 - 02/06 [facility] 80.0 /2020 [facility] CBC Lymphs 10.4 10.0 - 02 [facility] 55.0 /2020 [facility] CBC Monos. 12.3 0.0 - 15.0 02/ [facility] /2020 [facility] CBC Eos. 1.2 0.0 - 9.0 02/06 [facility] /2020 [facility] CBC Baso. 0.8 0.0 - 3.0 02/ [facility] /2020 [facility] CBC ABS Neut 8.7 1.7 - 8.6 02 [facility] /2019 [facility] CBC ABS Lymph 1.2 0.5 - 5.9 02 [facility] 2020 [facility] CBC ABS [place] 1.4 0.0 - 1.6 02/06 [facility] /2020 [facility] CBC ABS Eos 0.1 0.0 - 1.0 02/ [facility] 2020 [facility] CBC ABS Baso 0.1 0.0 - 0.3 02 D[facility] 2020 [facility] General Mg 2.0 1.6 - 2.6 11/09 [facility] Chemistry /2019 [facility] General eGFR >60 11/09 [facility] Chemistry Afr/Amer /2019 [facility] General Glucose 91 70 - 99 02 [facility] Chemistry Level /2020 [facility] General BUN 11 10 - 20 02 [facility] Chemistry /2020 [facility] General Creatinine 0.67 0.57 - 02/06 [facility] Chemistry 1.11 /2019 [facility] General Sodium 136 134 - 144 02/ [facility] Chemistry /2019 [facility] General Potassium 4.3 3.5 - 5.1 02 [facility] Chemistry /2020 [facility] General Chloride 101 98 - 107 02 [facility] Chemistry /2020 [facility] General CO2 25 23 - 31 02 [facility] Chemistry /2019 [facility] General Calcium 8.5 8.4 - 10.2 02 [facility] Chemistry /2019 [facility] General Protein, 5.9 6.4 - 8.3 11/09 [facility] Chemistry Total /2019 [facility] General Albumin 2.8 3.4 - 5.0 11/09 [facility] Chemistry /2019 [facility] General AST 196 5 - 34 11/09 [facility] Chemistry /2019 [facility] General ALT 180 0 - 55 02 [facility] Chemistry /2019 [facility] General Alkphos 285 40 - 150 02 [facility] Chemistry /2019 [facility] General Bili Total 0.5 0.2 - 1.2 11/09 [facility] Chemistry /2019 [facility] General Anion Gap 14 5 - 15 11/09 [facility] Chemistry /2020 [facility] General Globulin 3.1 2.5 - 4.1 11/09 [facility] Chemistry /2020 [facility] General A/G Ratio 0.9 0.8 - 1.6 02 [facility] Chemistry /2019 [facility] General eGFR >60 11/09 [facility] Chemistry Non- /2019 [facility] Urinalysis URBC 0-4 per 0 - 4 11/09 [facility] HPF /2019 [facility] Urinalysis Urine WBCs 5-10 per None per 11/09 [facility] HPF HPF /2019 [facility] Urinalysis UBacteria 1+ per HPF None per 11/09 [facility] HPF /2019 [facility] Urinalysis UA Squam 0-10 per 0 - 10 11/09 [facility] Epithelial HPF /2019 [facility] Urinalysis UMucous Rare per 11/09 [facility] LPF /2019 [facility] Urinalysis Color Straw Yellow 11/09 [facility] (11/09/19 12:49 AM) /2019 [facility] Urinalysis Appearance Clear Clear 11/09 [facility] (11/09/19 12:49 AM) /2019 [facility] Urinalysis UGlucose Negative Negative 11/09 [facility] (11/09/19 12:49 AM) /2019 [facility] Urinalysis UBilirubin Negative Negative 11/09 [facility] (11/09/19 12:49 AM) /2019 [facility] Urinalysis UKetones Negative Negative 11/09 [facility] (11/09/19 12:49 AM) /2019 [facility] Urinalysis Specific 1.008 1.008 - 02 [facility] [place] 1.020 /2019 [facility] Urinalysis UBlood 1+ Negative 11/09 [facility] *ABN* /2019 [facility] (11/09/19 12:49 AM) [facility] Urinalysis UpH 6.0 5.0 - 8.0 11/09 [facility] /2019 [facility] Urinalysis UProtein Negative Negative 11/09 [facility] (11/09/19 12:49 AM) /2019 [facility] Urinalysis UNitrite Negative Negative 11/09 [facility] (11/09/19 12:49 AM) /2019 [facility] Urinalysis ULeukocyte Negative Negative 11/09 [facility] Esterase (11/09/19 12:49 AM) /2019 [facility] Urinalysis UCIF Yes/No Not Indicated 1 11/09 Phyllis abbasi Comment: Urine Culture not ordered as both of the following conditions exist: [facility] *NA* UA Blood is FEWER THAN 3+ or [facility] (11/09/19 12:49 AM) UA WBC < 10 E [facility] Mg Mg 2.0 1.6 - 2.6 11/08 Unless otherwise noted, tests performed at the following location: [facility] [place] General Mg 2.0 1.6 - 2.6 11/08 Chemistry [facility] Gluc Glucose 114 70 - 110 /05 H District Customs Director: [id number] ARLINE Uriarte (POCT) (POCT) Regional Automated Unless oth erwise noted, tests performed at the following location: [facility] [place] Gluc Glucose 144 70 - 110 02/04 H District Customs Director: [id number] ARLINE Uriarte (POCT) (POCT) Regional Automated Unless oth erwise noted, tests performed at the following location: [facility] BMP Sodium 132 134 - 144 11/07 L [place] (Basic) [facility] BMP Potassium 3.7 3.5 - 5.1 11/07 [place] (Basic) [facility] BMP Chloride 100 98 - 107 11/07 [place] (Basic) [facility] BMP CO2 22 23 - 31 11/07 L [place] [facility] (Basic) [facility] BMP Glucose 111 70 - 99 11/07 H [place] [employer]abetic Associ ation (ADA) Guidelines: [facility] (Basic) Level /2019 Optimal fa sting blood glucose is below 100 mg/dL. A person with pre-diabetes has a fasting blood glucose of 100-125. [facility] BMP BUN 11 10 - 20 11/07 [facility] (Basic) [facility] BMP Creatinine 0.65 0.57 - 11/07 Result is ID-GC/MS st andardized [place] (Basic) 1.11 [facility] BMP Calcium 8.2 8.4 - 10.2 11/07 L [place] (Basic) [facility] BMP Anion Gap 14 5 - 15 11/07 [facility] (Basic) [address] [place] [address] BMP eGFR >60 11/07 NA NORMALIZED FOR ID-GC/MS STANDARDIZED CREATININE [facility] (Basic) Non- (NON-AF AMR=NON-, AF AMR=) [facility] Am KIDNEY DAMAGE STAGES FRO [facility] [place] STAGE 1 and 2 >60 mL/min /1.73 square meters STAGE 3 30-59 mL/min/1.7 3 square meters STAGE 4 15-29 mL/min/1.7 3 square meters STAGE 5 <14 mL/min/1.73 square meters BMP eGFR >60 /04 NA NORMALIZED FOR ID-GC/MS STANDARDIZED CREATININE [facility] (Basic) Afr/Amer (NON-AF AM R=NON-, AF AMR=) [facility] KIDNEY DAMAGE STAGES [facility]O [facility] STAGE 1 and 2 >60 mL/min /1.73 square meters STAGE 3 30-59 mL/min/1.7 3 square meters STAGE 4 15-29 mL/min/1.7 3 square meters STAGE 5 <14 mL/min/1.73 square meters BMP Drug Calc 72.900 11/07 [place] (Basic) Weight (kg) [facility] BMP Height (cm) 165.100 11/07 [place] ([facility]) Unless oth erwise noted, tests performed at the following location: [facility] [place] Mg Mg 1.9 1.6 - 2.6 11/07 Unless otherwise noted, tests performed at the following location: [facility] CBC w/Diff WBC 16.8 4.8 - 10.8 11/07 H [facility] CBC w/Diff RBC 4.09 4.00 - 11/07 [place] 5.40 [facility] CBC w/Diff Hgb 13.1 11.5 - 11/07 [place] 16.0 [facility] CBC w/Diff Hct 37.9 37.0 - 11/07 [place] 47.0 [facility] CBC w/Diff MCV 92.6 80.0 - 02 [place] 100.0 [facility] CBC w/Diff MCH 31.9 27.0 - 11/07 [place] 34.0 [facility] CBC w/Diff MCHC 34.5 32.0 - 11/07ler 37.0 [facility] CBC w/Diff RDW 12.9 11.5 - 11/07ler 16.0 [facility] CBC w/Diff Plt 113 130 - 400 02/ L [place] /[address] [place] [address] CBC w/Diff Neuts 83.6 35.0 - 02/ H [place] 80.0 [facility] CBC w/Diff Lymphs 5.1 10.0 - 02 L [place] 55.0 [facility] CBC w/Diff Monos. 10.8 0.0 - 15.0 11/[address] [place] [address] [place] [address] CBC w/Diff Eos. 0.1 0.0 - 9.0 11/[address] CBC w/Diff Baso. 0.4 0.0 - 3.0 11/07 [place] /[address] [place] [address] CBC w/Diff ABS Neut 14.0 1.7 - 8.6 / H [address] CBC w/Diff ABS Lymph 0.9 0.5 - 5.9 11/07 [facility] [address] [place] [address] CBC w/Diff ABS [place] 1.8 0.0 - 1.6 / H [address] CBC w/Diff ABS Eos 0.0 0.0 - 1.0 11/[address] CBC w/Diff ABS Baso 0.1 0.0 - 0.3 11/[address] CBC w/Diff CBC Scan Auto Diff 11/07 [place] Unless otherwise noted, tests performed at the following location: Regional [facility] Gluc Glucose 107 70 - 110 11/07 District Customs Director: [id number] ARLINE DUFF [place] (POCT) (POCT) [facility] Automated Unless oth erwise noted, tests performed at the following location: Medical Center CBC CBC Scan Auto Diff 11/07 [place] (11/07/19 7:14 AM) [facility] CBC WBC 16.8 4.8 - 10.8 11/[address] [place] [address] [place] [address] CBC RBC 4.09 4.00 - 11/07 [place] 5.40 [facility] CBC Hgb 13.1 11.5 - 11/07 [place] 16.0 [facility] CBC Hct 37.9 37.0 - 11/07 [place] 47.0 [facility] CBC MCV 92.6 80.0 - 11/07 [place] 100.0 [facility] CBC MCH 31.9 27.0 - 11/07 [place] 34.0 [facility] CBC MCHC 34.5 32.0 - 11/07 [facility] [address] [place] [address] CBC RDW 12.9 11.5 - 11/07 [place] 16.0 [facility] CBC Plt 113 130 - 400 11/07 [facility] [address] [place] [address] CBC Neuts 83.6 35.0 - 11/07 [place] 80.0 [facility] CBC Lymphs 5.1 10.0 - 02 [facility] 55.0 [facility] CBC Monos. 10.8 0.0 - 15.0 11/07 [facility] [address] [place] [address] CBC Eos. 0.1 0.0 - 9.0 11/07 [facility] [address] [place] [address] CBC Baso. 0.4 0.0 - 3.0 11/07 [facility] [address] [place] [address] CBC ABS Neut 14.0 1.7 - 8.6 11/07 [facility] [address] [place] [address] CBC ABS Lymph 0.9 0.5 - 5.9 11/[address] CBC ABS [place] 1.8 0.0 - 1.6 11/[address] CBC ABS Eos 0.0 0.0 - 1.0 11/[address] CBC ABS Baso 0.1 0.0 - 0.3 11/[address] General Glucose 111 70 - 99 11/07 [facility] Chemistry Level [address] [place] [address] General BUN 11 10 - 20 11/07 [facility] [address] [place] [address] General Creatinine 0.65 0.57 - 02 [facility] Chemistry 1.11 [facility] General Sodium 132 134 - 144 11/[address] General Potassium 3.7 3.5 - 5.1 11/[address] General Chloride 100 98 - 107 11/[address] General CO2 22 23 - 31 11/[address] General Calcium 8.2 8.4 - 10.2 11/[address] General Anion Gap 14 5 - 15 11/[address] General eGFR >60 11/07 [facility] Non- [facility] General eGFR >60 11/07 [facility] Chemistry Afr/Amer [address] [place] [address] General Mg 1.9 1.6 - 2.6 11/[address] Gluc Glucose 114 70 - 110 02 H District Customs Director: [id number] [employer] LISA Uriarte (POCT) (POCT) [facility] Autom[facility] Unless oth erwise noted, tests performed at the following location: [facility] [place] Gluc Glucose 102 70 - 110 02 District Customs Director: [id number] STEFANIE EVERETTCHI LEANA [place] (POCT) (POCT) [facility] Automated Unless ot fan noted, tests performed at the following location: Medical Center Gluc Glucose 115 70 - 110 / H District Customs Director: [id number] STEFANIE EVERETTCHI LEANA [place] (POCT) (POCT) [facility] Autom[facility] Unless oth fan noted, tests performed at the following location: [facility] Center Gluc Glucose 94 70 - 110 11/07 District Customs Director: [id number] ARLINE Uriarte (POCT) (POCT) [facility] Automated Unless ot fan noted, tests performed at the following location: Medical Center Troponin-I Troponin I 0.72 - <=0.30 11/05 [facility] Previous critical Troponin called. [place] [facility] Unless otherwise noted, tests performed at the following location: [facility] [place] Cardiac Troponin I 0.72 <=0.30 11/05 Result [place] ng/mL Comment: Regional Previous Medical critical Center Troponin called. Troponin-I Troponin I 0.87 - <=0.30 11/05 [facility] Previous critical Troponin called. Regional Unless otherwise noted, tests performed at the following location: [facility] [place] Mg Mg 1.6 1.6 - 2.6 11/05 Unless otherwise noted, tests performed at the following location: [facility] Potassium Potassium 3.7 3.5 - 5.1 11/05 Unless otherwise noted, tests performed at the following location: [facility] Cardiac Troponin I 0.87 <=0.30 11/05 Result [facility] ng/mL Comment: [facility] Previous [facility] critical Center Troponin called. General Potassium 3.7 3.5 - 5.1 11/05 [facility] Chemistry [facility] General Mg 1.6 1.6 - 2.6 11/05 [facility] Chemistry [address] [place] [address] Troponin-I Troponin I 0.90 - <=0.30 11/05 [facility] Patient Name and Critical test results read back for verification. Critical value called to: RO, @ 11/04/2019 20:47:07 [facility], by DEBORAH. Regional Unless otherwise noted, tests performed at the following location: Medical Center CMP Sodium 137 134 - 144 11/[address] CMP Potassium 3.7 3.5 - 5.1 11/[address] CMP Chloride 101 98 - 107 11/[address] CMP CO2 25 23 - 31 11/[address] CMP Glucose 96 70 - 99 11/05 [place] [employer] (ADA) Guidelines: [facility] Optimal fa sting blood glucose is below 100 mg/dL. A person with pre-diabetes has a fasting blood glucose of 100-125. [facility] CMP BUN 9 10 - 20 11/[address] CMP Creatinine 0.66 0.57 - 11/05 Result is ID-GC/MS st andardized [facility] 1.11 [facility] CMP Anion Gap 15 5 - 15 11/[address] CMP Calcium 8.8 8.4 - 10.2 11/[address] CMP Protein, 6.2 6.4 - 8.3 02 L [facility] Total [facility] CMP Albumin 3.5 3.4 - 5.0 11/05 [facility] [address] [place] [address] CMP Alkphos 110 40 - 150 11/[address] CMP ALT 22 0 - 55 11/[address] CMP AST 36 5 - 34 11/[address] CMP Bili Total 0.6 0.2 - 1.2 11/[address] CMP eGFR >60 11/05 NA NORMALIZED FOR ID-GC/MS STANDARDIZED CREATININE [facility] Non- (NON-AF AMR=NON-, AF AMR=) Regional Am KIDNEY DAMAGE STAGES FR[facility] K[facility] STAGE 1 and 2 >60 mL/min /1.73 square meters STAGE 3 30-59 mL/min/1.7 3 square meters STAGE 4 15-29 mL/min/1.7 3 square meters STAGE 5 <14 mL/min/1.73 square meters CMP eGFR >60 11/05 NA NORMALIZED FOR ID-GC/MS STANDARDIZED CREATININE [facility] Afr/Am (NON-AF AMR=NON-, AF AMR=) Regional KIDNEY DAMAGE STAGES FRO [facility] STAGE 1 and 2 >60 mL/min /1.73 square meters STAGE 3 30-59 mL/min/1.7 3 square meters STAGE 4 15-29 mL/min/1.7 3 square meters STAGE 5 <14 mL/min/1.73 square meters CMP Globulin 2.7 2.5 - 4.1 11/05 [facility] [address] [place] [address] CMP A/G Ratio 1.3 0.8 - 1.6 11/[address] CMP Drug Calc 73.000 11/05 [facility] Weight (kg) [facility] Height (cm) 165.100 11/05 Unless otherwise noted, tests performed at the following location: Regional [facility] PT PT 20.1 10.0 - 11/05 H [place] 12. [facility] PT INR 1.76 11/05 NA INR THERAPEUTIC RANGE: C handle Use of the INR should b e limited to therapeutic monitoring Regional of patients on stable lo ng-term warfarin therapy. Medical Prophylaxis/treatment of venous thromboembolism .. INR 2-3 Center Prophylaxis/treatment of pulmonary embolism ...... INR 2-3 Prevention of systemic e mbolism from atrial fibrillation, myocardial infarction, t issue heart valves, valvular heart disease, and recurrent s ystemic embolism ...........INR 2-3 Prevention of systemic e mbolism from mechanical prosthetic heart valv es ................................. .........................INR 2.5-3.5 Unless otherwise noted, tests performed at the following location: PTT PTT 31.8 25.5 - 11/05 Interpretive data for PT T-APTT: [place] 36.0 For patien ts receiving unfractionated heparin the therapeutic range is 65.2-86.8 seconds as measured by the APTT which roughly corresponds to the recommended heparin concentration of 0.3-0.7 IU/mL as measured by the anti Xa-assay. Regional For patien ts on direct thrombin inhibitors, the APTT therapeutic range is 46.2-77.0 seconds. Medical Center Unless otherwise noted, tests performed at the following location: CBC w/Diff WBC 11.2 4.8 - 10.8 02/ H [facility] CBC w/Diff RBC 4.14 4.00 - 02 [place] 5.40 [facility] CBC w/Diff Hgb 13.1 11.5 - 02 [place] 16.0 [facility] CBC w/Diff Hct 38.8 37.0 - 02 [place] 47.0 [facility] CBC w/Diff MCV 93.9 80.0 - 02 [place] 100.0 [facility] CBC w/Diff MCH 31.6 27.0 - 02 [place] 34.0 [facility] CBC w/Diff MCHC 33.7 32.0 - 02ler 37.0 [facility] CBC w/Diff RDW 13.0 11.5 - 02 [place] 16.0 [facility] CBC w/Diff Plt 154 130 - 400 02 [facility] CBC w/Diff Neuts 78.9 35.0 - 02 [place] 80.0 [facility] CBC w/Diff Lymphs 9.7 10.0 - 02 L [place] 55.0 [facility] CBC w/Diff Monos. 9.3 0.0 - 15.0 02 [place] /[address] [place] [address] CBC w/Diff Eos. 1.1 0.0 - 9.0 02 [facility] CBC w/Diff Baso. 1.0 0.0 - 3.0 11/05 [facility] CBC w/Diff ABS Neut 8.8 1.7 - 8.6 11/05 H [facility] CBC w/Diff ABS Lymph 1.1 0.5 - 5.9 11/05 [facility] CBC w/Diff ABS [place] 1.0 0.0 - 1.6 11/05 [facility] CBC w/Diff ABS Eos 0.1 0.0 - 1.0 11/05 [facility] CBC w/Diff ABS Baso 0.1 0.0 - 0.3 11/05 [facility] CBC w/Diff CBC Scan Auto Diff 11/05 Unless otherwise noted, tests performed at the following location: [facility] Gluc Glucose 87 70 - 110 11/05 District Customs Director: [id number] MEREDITH Uriarte (POCT) (POCT) Regional Automated Unless oth erwise noted, tests performed at the following location: Medical Center Cardiac Troponin I 0.90 <=0.30 11/05 Result [place] ng/mL Comment: Regional Patient Name Medical and Critical Center test results read back for verification. Critical value called to: RO, @ 11/04/2019 20:47:07 [facility], by C.LEONARD. CBC CBC Scan Auto Diff 11/05 [facility] (11/04/19 8:14 PM) [facility] CBC WBC 11.2 4.8 - 10.[address] CBC RBC 4.14 4.00 - 02/ [facility] 5.40 [facility] CBC Hgb 13.1 11.5 - 02/ [facility] 16.0 [facility] CBC Hct 38.8 37.0 - 02 [place] 47.0 [facility] CBC MCV 93.9 80.0 - 02 [facility] 100.0 [facility] CBC MCH 31.6 27.0 - 02 [facility] 34.0 [facility] CBC MCHC 33.7 32.0 - 02 [facility] 37.0 [facility] CBC RDW 13.0 11.5 - 02 [facility] 16.0 [facility] CBC Plt 154 130 - [address] CBC Neuts 78.9 35.0 - 02 [facility] 80.0 [facility] CBC Lymphs 9.7 10.0 - 02 [facility] 55.0 [facility] CBC Monos. 9.3 0.0 - 15.[address] CBC Eos. 1.1 0.0 - 9.[address] CBC Baso. 1.0 0.0 - 3.[address] CBC ABS Neut 8.8 1.7 - 8.6 11/[address] CBC ABS Lymph 1.1 0.5 - 5.[address] CBC ABS [place] 1.0 0.0 - 1.6 11/[address] CBC ABS Eos 0.1 0.0 - 1.0 11/[address] CBC ABS Baso 0.1 0.0 - 0.[address] General Glucose 96 70 - 99 02 [facility] Chemistry Level [facility] General BUN 9 10 - 20 02 [facility] Chemistry /[address] [place] [address] General Creatinine 0.66 0.57 - 02 [place] Chemistry 1.11 [facility] General Sodium 137 134 - 144 11/05 [facility] [address] [place] [address] General Potassium 3.7 3.5 - 5.1 11/05 [place] [facility] [address] [place] [address] General Chloride 101 98 - 107 11/05 [facility] [address] [place] [address] General CO2 25 23 - 31 11/05 [facility] [address] [place] [address] General Calcium 8.8 8.4 - 10.2 11/05 [facility] Chemistry [facility] General Protein, 6.2 6.4 - 8.3 11/05 [place] Chemistry Total [facility] General Albumin 3.5 3.4 - 5.0 11/05 [place] Chemistry [facility] General AST 36 5 - 34 11/05 [place] Chemistry [facility] General ALT 22 0 - 55 11/05 [facility] [address] [place] [address] General Alkphos 110 40 - 150 11/05 [facility] [address] [place] [address] General Bili Total 0.6 0.2 - 1.2 11/05 [facility] [address] [place] [address] General Anion Gap 15 5 - 15 11/05 [facility] [address] [place] [address] General Globulin 2.7 2.5 - 4.1 11/05 [facility] [address] [place] [address] General A/G Ratio 1.3 0.8 - 1.6 11/05 [facility] [address] [place] [address] General eGFR >60 11/05 [place] Chemistry Afr/Amer [facility] General eGFR >60 11/05 [facility] Non- [facility] Gluc Glucose 113 70 - 110 10/26 H NOTIFIED Phyllis OCONNOR MD~District Customs Director: [id number] FRANCINE Uriarte (POCT) (POCT) Regional Automated Unless oth erwise noted, tests performed at the following location: Medical [place] Gluc Glucose 101 70 - 110 10/25 District Customs Director: [id number] JONNY Barron SOLITARIO [place] (POCT) (POCT) Regional Automated Unless oth erwise noted, tests performed at the following location: Medical Center BMP Sodium 137 134 - 144 10/25 [place] (Basic) /2019 [facility] BMP Potassium 3.9 3.5 - 5.1 10/25 [place] (Basic) /2019 [facility] BMP Chloride 104 98 - 107 10/25 [place] (Basic) /2019 [facility] BMP CO2 25 23 - 31 10/25 [place] (Basic) /2019 [facility] BMP Glucose 102 70 - 99 10/25 H [place] Diabetic Associ ation (ADA) Guidelines: [place] (Basic) Level Optimal fa sting blood glucose is below 100 mg/dL. A person with pre-diabetes has a fasting blood glucose of 100-125. [facility] BMP BUN 8 10 - 20 10/25 L [place] (Basic) [facility] BMP Creatinine 0.59 0.57 - 10/25 Result is ID-GC/MS st andardized [facility] (Basic) 1.11 [facility] BMP Calcium 8.6 8.4 - 10.2 10/25 [place] (Basic) [facility] BMP Anion Gap 12 5 - 15 10/25 [place] (Basic) /[address] [place] [address] BMP eGFR >60 10/25 NA NORMALIZED FOR ID-GC/MS STANDARDIZED CREATININE [facility] (Basic) Non- (NON-AF AMR=NON-, AF AMR=) Regional Am KIDNEY DAMAGE STAGES FRO M [facility] Medical Center STAGE 1 and 2 >60 mL/min /1.73 square meters STAGE 3 30-59 mL/min/1.7 3 square meters STAGE 4 15-29 mL/min/1.7 3 square meters STAGE 5 <14 mL/min/1.73 square meters BMP eGFR >60 10/25 NA NORMALIZED FOR ID-GC/MS STANDARDIZED CREATININE [place] Em) Afr/Amer (NON-AF AM R=NON-, AF AMR=) Regional KIDNEY DAMAGE STAGES FRO M [facility] Medical [place] STAGE 1 and 2 >60 mL/min /1.73 square meters STAGE 3 30-59 mL/min/1.7 3 square meters STAGE 4 15-29 mL/min/1.7 3 square meters STAGE 5 <14 mL/min/1.73 square meters BMP Drug Calc 72.930 10/25 [place] (Basic) Weight (kg) [facility] BMP Height (cm) 165.100 10/25 [place] (Basic) Unless david chavira noted, tests performed at the following location: [facility] TSH TSH 3.569 0.350 - 10/25 [place] 4.940 Unless david chavira noted, tests performed at the following location: Regional [facility] Lipid Cholesterol 198 - <=200 10/25 CHOLESTEROL RESULTS : [place] <200 DESIRABLE Regional 200 - 239 BORDERLINE Me dical >= 240 HIGH Center (The National Cholestero l Education (NCEP) recommendation) Lipid Triglyceride 122 0 - 150 10/25 [facility] s [facility] Lipid HDL 52 >=60 10/25 L National C holesterol Education Program (NCEP) Guidelines: [place] Panel < 40 mg/dL: low HDL cho lesterol (major risk factor for CHD) Regional >= 60 mg/dL: high HDL c holesterol ('negative' risk factor for CHD) [facility] Lipid LDL 122 0 - 129 10/25 [facility] Panel [facility] Lipid VLDL 24 0 - 40 10/25 [facility] Lipid LDL/HDL 2 10/[address] Lipid Chol/Trig 1.62 10/[address] Lipid %HDL 26.3 10/25 [facility] Lipid Cholesterol/ 4 10/25 NA ------- [facility] Unless oth bluewise noted, tests performed at the following location: Regional [facility] Troponin-I Troponin I 0.77 - <=0.30 10/25 CRIT Previous critical Troponin called. Regional Unless otherwise noted, tests performed at the following location: Medical [place] HgbA1C HgbA1C 5.3 4.5 - 6.2 10/25 [facility] HgbA1C Estimated 105 10/25 NA Estimated Mean Blood Glucose reported per the recommendation of the [place] D iabetes Association. Not a measured value. Result reflects an Regional Glucose average glucose over bonilla e. Medical Center Unless otherwise noted, tests performed at the following location: CBC w/Diff WBC 6.7 4.8 - 10.8 10/25 [facility] CBC w/Diff RBC 3.82 4.00 - 10/25 L [place] 5.40 [facility] CBC w/Diff Hgb 12.2 11.5 - 10/25 [place] 16.0 [facility] CBC w/Diff Hct 35.9 37.0 - 10/25 L [place] 47.0 [facility] CBC w/Diff MCV 93.8 80.0 - 10/25ler 100.0 [facility] CBC w/Diff MCH 32.0 27.0 - 10/25ler 34.0 [facility] CBC w/Diff MCHC 34.1 32.0 - 10/25 [place] 37.0 [facility] CBC w/Diff RDW 13.5 11.5 - 10/25 [place] 16.0 [facility] CBC w/Diff Plt 171 130 - 400 10/25 [facility] CBC w/Diff Neuts 67.2 35.0 - 10/25 [place] 80.0 [facility] CBC w/Diff Lymphs 17.0 10.0 - 10/25 [place] 55.0 [facility] CBC w/Diff Monos. 11.8 0.0 - 15.0 10/25 [facility] CBC w/Diff Eos. 2.9 0.0 - 9.0 10/25 [facility] CBC w/Diff Baso. 1.1 0.0 - 3.0 10/25 [facility] CBC w/Diff ABS Neut 4.5 1.7 - 8.6 10/25 [facility] CBC w/Diff ABS Lymph 1.1 0.5 - 5.9 10/25 [facility] CBC w/Diff ABS [place] 0.8 0.0 - 1.6 10/25 [facility] CBC w/Diff ABS Eos 0.2 0.0 - 1.0 10/25 [facility] CBC w/Diff ABS Baso 0.1 0.0 - 0.3 10/25 [facility] CBC w/Diff CBC Scan Auto Diff 10/25 Unless otherwise noted, tests performed at the following location: Regional [facility] Mg Mg 1.9 1.6 - 2.6 10/25 Unless otherwise noted, tests performed at the following location: Regional [facility] Lab Add Add on Test magnesium 10/25 MARY Uriarte On* [facility] Lab Add Lab Add On* Yes 10/25 [place] On Unless oth fan noted, tests performed at the following location: [facility] Gluc Glucose 102 70 - 110 10/25 District Customs Director: [id number] JONNY Uriarte (POCT) (POCT) Regional Automated Unless oth erwise noted, tests performed at the following location: Medical Center Cardiac Troponin I 0.77 <=0.30 10/25 Result [place] ng/mL Comment: [facility] critical Center Troponin called. CBC CBC Scan Auto Diff 10/25 (10/25/19 1:53 AM) [facility] CBC WBC 6.7 4.8 - 10.8 10/25 [facility] CBC RBC 3.82 4.00 - 10/25 [place] 5.40 [facility] CBC Hgb 12.2 11.5 - 10/25 [place] 16.0 [facility] CBC Hct 35.9 37.0 - 10/25 [place] 47.0 [facility] CBC MCV 93.8 80.0 - 10/25 [place] 100.0 [facility] CBC MCH 32.0 27.0 - 10/25 [place] 34.0 [facility] CBC MCHC 34.1 32.0 - 10/25 [place] 37.0 [facility] CBC RDW 13.5 11.5 - 10/25 [place] 16.0 [facility] CBC Plt 171 130 - 400 10/25 [facility] CBC Neuts 67.2 35.0 - 10/25 [place] 80.0 [facility] CBC Lymphs 17.0 10.0 - 10/25 [place] 55.0 [facility] CBC Monos. 11.8 0.0 - 15.0 10/[address] CBC Eos. 2.9 0.0 - 9.0 10/[address] CBC Baso. 1.1 0.0 - 3.0 10/[address] CBC ABS Neut 4.5 1.7 - 8.6 10/[address] CBC ABS Lymph 1.1 0.5 - 5.9 10/25 [facility] [address] [place] [address] CBC ABS [place] 0.8 0.0 - 1.6 10/[address] CBC ABS Eos 0.2 0.0 - 1.0 10/[address] CBC ABS Baso 0.1 0.0 - 0.3 10/[address] General eGFR >60 10/25 [facility] Chemistry Non- [facility] General Glucose 102 70 - 99 10/25 [facility] Chemistry Level [address] [place] [address] General BUN 8 10 - 20 10/25 [facility] Chemistry [address] [place] [address] General Creatinine 0.59 0.57 - 10/25 [facility] Chemistry 1.11 [facility] General Sodium 137 134 - 144 10/[address] General Potassium 3.9 3.5 - 5.1 10/[address] General Chloride 104 98 - 107 10/[address] General CO2 25 23 - 31 10/[address] General Calcium 8.6 8.4 - 10.2 10/25 [facility] Chemistry [address] General Anion Gap 12 5 - 15 10/25 [facility] Chemistry [address] General eGFR >60 10/25 [facility] Chemistry Afr/Amer [facility] Special HgbA1C 5.3 4.5 - 6.2 10/25 [facility] Chemistry /[address] [place] [address] Special Estimated 105 10/25 [facility] Chemistry Average [facility] Special TSH 3.569 0.350 - 10/25 [facility] Chemistry 4.940 [facility] Troponin-I Troponin I 0.83 - <=0.30 10/25 CRIT Patient Name and Critical test results read back for verification. Critical value called to: Jigna, @ 10/24/2019 22:23:23 [facility], by josé. Regional Unless otherwise noted, tests performed at the following location: Medical Center CMP Sodium 137 134 - 144 10/[address] CMP Potassium 4.0 3.5 - 5.1 10/[address] CMP Chloride 101 98 - 107 10/[address] CMP CO2 27 23 - 31 10/[address] CMP Glucose 86 70 - 99 10/25 [place] [employer]abetic [employer]ion (ADA) Guidelines: Optimal fa sting blood glucose is below 100 mg/dL. A person with pre-diabetes has a fasting blood glucose of 100-125. [facility] CMP BUN 10 10 - 20 10/[address] CMP Creatinine 0.62 0.57 - 10/25 Result is ID-GC/MS st andardized [facility] 1. [facility] CMP Anion Gap 13 5 - 15 10/[address] CMP Calcium 9.2 8.4 - 10.2 10/[address] CMP Protein, 6.4 6.4 - 8.3 10/25 [facility] Total [facility] CMP Albumin 3.4 3.4 - 5.0 10/[address] CMP Alkphos 111 40 - 150 10/[address] CMP ALT 20 0 - 55 10/[address] CMP AST 30 5 - 34 10/[address] CMP Bili Total 0.4 0.2 - 1.2 10/[address] CMP eGFR >60 10/25 NA NORMALIZED FOR ID-GC/MS STANDARDIZED CREATININE [facility] Non- (NON-AF AMR=NON-, AF AMR=) [facility] KIDNEY DAMAGE STAGES FRO M [facility] KIDNEY [facility] Center STAGE 1 and 2 >60 mL/min /1.73 square meters STAGE 3 30-59 mL/min/1.7 3 square meters STAGE 4 15-29 mL/min/1.7 3 square meters STAGE 5 <14 mL/min/1.73 square meters CMP eGFR >60 10/25 NA NORMALIZED FOR ID-GC/MS STANDARDIZED CREATININE [facility] (NON-AF AMR=NON-, AF AMR=) Regional KIDNEY DAMAGE STAGES FRO M [facility] Center STAGE 1 and 2 >60 mL/min /1.73 square meters STAGE 3 30-59 mL/min/1.7 3 square meters STAGE 4 15-29 mL/min/1.7 3 square meters STAGE 5 <14 mL/min/1.73 square meters CMP Globulin 3.0 2.5 - 4.1 10/25 [facility] CMP A/G Ratio 1.1 0.8 - 1.6 10/25 [facility] CMP Drug Calc 72.930 10/25 [facility] Weight (kg) [facility] Height (cm) 165.100 10/25 [place] Unless otherwise noted, tests performed at the following location: Regional [facility] PT PT 14.1 10.0 - 10/25 H [place] 12. [facility] PT INR 1.24 10/25 NA INR THERAPEUTIC RANGE: C handle Use of the INR should b e limited to therapeutic monitoring Regional of patients on stable lo ng-term warfarin therapy. Medical Prophylaxis/treatment of venous thromboembolism .. INR 2-3 Center Prophylaxis/treatment of pulmonary embolism ...... INR 2-3 Prevention of systemic e mbolism from atrial fibrillation, myocardial infarction, t issue heart valves, valvular heart disease, and recurrent s ystemic embolism ...........INR 2-3 Prevention of systemic e mbolism from mechanical prosthetic heart valv es ................................. .........................INR 2.5-3.5 Unless otherwise noted, tests performed at the following location: PTT PTT 29.9 25.5 10/25 Interpretive data for PT T-APTT: [place] . For patien ts receiving unfractionated heparin the therapeutic range is 65.2-86.8 seconds as measured by the APTT which roughly corresponds to the recommended heparin concentration of 0.3-0.7 IU/mL as measured by the anti Xa-assay. [facility] For patien ts on direct thrombin inhibitors, the APTT therapeutic range is 46.2-77.0 seconds. Medical Center Unless otherwise noted, tests performed at the following location: CBC w/Diff WBC 7.3 4.8 - 10.8 10/25 [place] [facility] CBC w/Diff RBC 4.13 4.00 - 10/25 [place] 5.40 [facility] CBC w/Diff Hgb 13.3 11.5 - 10/25 [place] 16.0 [facility] CBC w/Diff Hct 38.9 37.0 - 10/25 [place] 47.0 [facility] CBC w/Diff MCV 94.1 80.0 - 10/25 [place] 100.0 [facility] CBC w/Diff MCH 32.3 27.0 - 10/25 [facility] 34.0 [facility] CBC w/Diff MCHC 34.3 32.0 - 10/25 [place] 37.0 [facility] CBC w/Diff RDW 13.2 11.5 - 10/25 [place] 16.0 [facility] CBC w/Diff Plt 181 130 - 400 10/[address] CBC w/Diff Neuts 67.3 35.0 - 10/25 [place] 80.0 [facility] CBC w/Diff Lymphs 17.3 10.0 - 10/25 [place] 55.0 [facility] CBC w/Diff Monos. 11.9 0.0 - 15.0 10/25 [place] [facility] CBC w/Diff Eos. 2.6 0.0 - 9.0 10/25 [place] [facility] CBC w/Diff Baso. 0.9 0.0 - 3.0 10/25 [place] [facility] CBC w/Diff ABS Neut 4.9 1.7 - 8.6 10/25 [place] 2019 [facility] CBC w/Diff ABS Lymph 1.3 0.5 - 5.9 10/25 [place] [facility] CBC w/Diff ABS [place] 0.9 0.0 - 1.6 10/25 [place] [facility] CBC w/Diff ABS Eos 0.2 0.0 - 1.0 10/25 [facility] CBC w/Diff ABS Baso 0.1 0.0 - 0.3 10/25 [facility] CBC w/Diff CBC Scan Auto Diff 10/25 Unless otherwise noted, tests performed at the following location: Regional [facility] Cardiac Troponin I 0.83 <=0.30 10/25 Result ng/mL Comment: Regional Patient Name Medical and Critical Center test results read back for verification. Critical value called to: Jigna, @ 10/24/2019 22:23:23 [facility], by josé. CBC CBC Scan Auto Diff 10/25 (10/24/19 9:47 PM) [facility] CBC WBC 7.3 4.8 - 10.8 10/25 [facility] CBC RBC 4.13 4.00 - 10/25 [place] 5.40 [facility] CBC Hgb 13.3 11.5 - 10/25ler 16.0 [facility] CBC Hct 38.9 37.0 - 10/25 [place] 47.0 [facility] CBC MCV 94.1 80.0 - 10/25 [place] 100.0 [facility] CBC MCH 32.3 27.0 - 10/25 [place] 34.0 [facility] CBC MCHC 34.3 32.0 - 10/25 [place] 37.0 [facility] CBC RDW 13.2 11.5 - 10/25 [place] 16.0 [facility] CBC Plt 181 130 - 400 10/25 [facility] CBC Neuts 67.3 35.0 - 10/25 [place] 80.0 [facility] CBC Lymphs 17.3 10.0 - 10/25 [place] 55.0 [facility] CBC Monos. 11.9 0.0 - 15.0 10/25 [facility] /2020 [facility] CBC Eos. 2.6 0.0 - 9.0 10/25 [facility] CBC Baso. 0.9 0.0 - 3.0 10/25 [facility]2019 [facility] CBC ABS Neut 4.9 1.7 - 8.6 10/25 [facility] /[address] [place] [address] CBC ABS Lymph 1.3 0.5 - 5.9 10/25 [facility] CBC ABS [place] 0.9 0.0 - 1.6 10/[address] CBC ABS Eos 0.2 0.0 - 1.0 10/[address] CBC ABS Baso 0.1 0.0 - 0.3 10/25 [facility] [address] [place] [address] General Glucose 86 70 - 99 10/25 [facility] Chemistry Level [facility] General BUN 10 10 - 20 10/25 [facility] Chemistry /[address] [place] [address] General Creatinine 0.62 0.57 - 10/25 [facility] Chemistry 1. [facility] General Sodium 137 134 - 144 10/25 [facility] Chemistry /[address] [place] [address] General Potassium 4.0 3.5 - 5.1 10/25 [facility] Chemistry /[address] [place] [address] General Chloride 101 98 - 107 10/25 [facility] Chemistry /[address] [place] [address] General CO2 27 23 - 31 10/25 [facility] Chemistry [address] General Calcium 9.2 8.4 - 10.2 10/25 [facility] Chemistry [address] General Protein, 6.4 6.4 - 8.3 10/25 [facility] Chemistry Total [facility] General Albumin 3.4 3.4 - 5.0 10/25 [facility] Chemistry /[address] [place] [address] General AST 30 5 - 34 10/25 [facility] Chemistry /2020 [facility] General ALT 20 0 - 55 10/25 [facility] Chemistry /[address] [place] [address] General Alkphos 111 40 - 150 10/25 [facility] Chemistry /[address] [place] [address] General Bili Total 0.4 0.2 - 1.2 10/25 [facility] Chemistry /[address] [place] [address] General Anion Gap 13 5 - 15 10/25 [facility] Chemistry /[address] [place] [address] General Globulin 3.0 2.5 - 4.1 10/25 [facility] General A/G Ratio 1.1 0.8 - 1.6 10/25 [facility] General eGFR >60 10/25 [facility] Afr/Amer [facility] General eGFR >60 10/25 [facility] Non- [facility] General Mg 1.9 1.6 - 2.6 10/25 [facility] [address] [place] [address] Pathology Reports Report Value Date Source Pathology Tissue SEE REPORT FOR MORE INFORMATION 05/31/2020 [facility] Request [facility] Surgical Pathology . 05/31/2020 [facility] Report and Medical Cent er COLLECTED DATE/TIME: RECEIVED DATE/TIME: ACCESS ION NUMBER: 05/31/2020 09:28 MST 06/13/2020 09:28 [facility] [id number] Surgical Pathology Report Diagnosis 1. [id number] - Right ovarian biopsies: - Ovarian mucinous adenocarcinoma 2. [id number]: - Omentum, omentectomy: - Negative for neoplasm - Irregular lobular adipose tissue consistent w ith omentum - Ovary and fallopian tube, right salpingo-ooph orectomy: - Ovarian poorly differentiated mucinous adenoc arcinoma - Maximal tumor diameter 1.6 cm - Treatment effect with nucleocytomegaly, CRS s core 1-2 - Prominent lymphovascular invasion - Focal fallopian tube involvement by poorly di fferentiated mucinous ovarian adenocarcinoma - Tumor positive for MLH1, PMS2, MSH2 and MSH6 - No loss of nuclear expression of MMR proteins : Low probability of microsatellite instability-high - Pathologic stage (pTNM[FIGO]): pT3[III], pN0 - Ovary and fallopian tube, left salpingo-oopho rectomy: - Atrophic ovary negative for neoplasm - Multiple ovarian benign glandular inclusions - Atrophic fallopian tube, negative for neoplas m - Lymph node, left pelvic, lymphadenectomy: - One lymph node negative for neoplasm Comment: Additional special stains are performed on the paraffin block received. A mucicarmine stain is negative for mucin . A PAS with diastase highlights focal cytoplasmic mucin. The neoplasm is negative for vi mentin. The neoplasm has variable positivity for PAX8 and CEA. A microsatellite instability panel has results as listed above. Special stains received from the referring institution demon strated negativity for WT-1 antigen, Napsin A, estrogen receptor, progesterone receptor, SATB 2 and CK 20. P53 was expressed in greater than 50 percent of cells as was a Ki-67 labeling ind ex. P16 was only expressed focally and was mottled where positive. The tumor was also positive for CK7 and CDX-2. Clinical consultation is held with Dr. Black who relates a history of a BRCA 1 mutation and interval chemotherapy. While most ovarian carcinomas in this setting are those o f a high grade serous variety, borderline mucinous neoplasms as well as mucinous carcinomas have also been described in this setting. 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 are 44 glass slides and a paraffin block with 19 slides numbered [id number] a nd 25 slides numbered [id number]. Also received is a paraffin block, [id number] and copies of c orresponding surgical pathology reports. The slides are designated as right ovarian needle cor e biopsies, omental resection, right fallopian tube and ovary, left fallopian tube and ovary and left pelvic lymph node. . COLLECTED DATE/TIME: RECEIVED DATE/TIME: ACCESS ION NUMBER: 05/31/2020 09:28 MST 06/13/2020 09:28 [facility] [id number] Microscopic Description Microscopic performed CYTO NG SO See Report 12/07/2019 [facility] Diagnostic Reports Report Value Date Source Electrocardiogram Stationary ECG Study 01/01/[address] [address] Test Date: 2022-01-01 Pat Name: JOSEPH VALDIVIA Department: Room: 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 : 1940 Requested By: Jg Frye Order Number: [id number] Reading MD: Jesús reddy MD Measurements Intervals [place] Rate: 68 P: 72 OH: 175 QRS: -26 QRSD: 74 T: 25 QT: 351 QTc: 369 Severity: Abnormal ECG Interpretive Statements SINUS RHYTHM LOW QRS VOLTAGE SEPTAL MYOCARDIAL INFARCTION , PROBABLY OLD Abnormal ECG Compared to ECG 12/05/2021 14:36:27 Myocardial infarct finding now present Electronically Signed On 01-01-2022 18:42:25 MST by Jesús Lopez MD Electrocardiogram Stationary ECG Study 12/05/2021 [address] [place] [address] Test Date: 2021-12-05 Pat Name: JOSEPH VALDIVIA Department: Room: [facility] Gender: F Chief Airport Guide: Stephanie : 1940 Requested By: Jg Frye Order Number: [id number] Reading MD: Frank Dwyer MD Measurements Intervals [place] Rate: 68 P: 76 OH: 166 QRS: -4 QRSD: 86 T: 60 QT: 374 QTc: 392 Severity: Borderline ECG Interpretive Statements SINUS RHYTHM WITH OCCASIONAL ECTOPIC PREMATURE C OMPLEXES LOW QRS VOLTAGE IN EXTREMITY LEADS Borderline ECG Compared to ECG 11/27/2019 10:39:52 Low QRS voltage now present Sinus tachycardia no longer present Electronically Signed On 12-07-2021 9:22:52 MST by Frank Dwyer MD IR Remove Tunneled CVAD w Reason For Exam 01/29/2021 [facility] Port/Pump [facility] EXAM: IR Remove Tunneled CVAD w Port/Pump CLINICAL HISTORY: ADENOCARCINOMA a port line tod coarl needed PROCEDURE: Removal of left chest port line Discussion: Consent was obta ined after examination of the procedure, risks, benefits, and alternatives. The left upper chest was prepped in usual sterile fashion. Local anesthetic was used. A small inci gurpreet was made. The subcutane ous tissues were bluntly dissected. The port line and port reservoir were successfully removed without complication. There were no immediate complications. The patient was tr ansferred to the recovery room in stable conditi on. The procedure was performed utilizing universal sterile technique which includes sterile gloves and gown, surgical hat and mask. The procedure was performed utilizing IV conscious sedation which included 2 mg IV Versed, 100 mg IV fentanyl and 50 mg IV Benadryl. Procedure start time of 1005 hours with an end t cy at 1050 hours. The total fluoroscopy time for the procedures 0. 1 minutes. DAP- [id number] IMPRESSION: 1. Successful removal of the right chest port francoise bella. * * * F I N A L * * * Dictated by: Gaurav Talbot MD Electronically signed by: Gaurav Talbot MD Transcribed by:PU , D: 01/29 15:40, , S: 01/29/2021 15:42 * * * F I N A L * * * IR Retr IVC Filter Reason For Exam 01/29/2021 [place] [facility] EXAM: IR Retr IVC Filter [facility] CLINICAL HISTORY: ADENOCARCINOMA resolved DVT, r equest removal IVC filter PROCEDURE: Removal of IVC filter and inferior ve nacavogram Discussion: Consent was obta ined after explanation of the procedure, risks, benefits, and alternatives. A right jugular approach was used. The right lower neck was prepped in usual sterile fashion. Loca l anesthetic was used. A monse ropuncture needle was inserted into the right internal jugular vein utilizing ultrasound guidance. The right internal jugular vein is patent. An ultrasound image was obtained . A micropuncture wire and s giuliana were inserted. The micropuncture wire was exchanged for a Glidewire. The Glidewire was inserted and directed into the inferior vena cava utilized fluoroscopic guidance. The tract was dilated over the Glidewire. A 10 Citizen [place] sheath was inserted over the Glidewire and directed over the Glidewire into the lower aspects of the inferior vena cava. An inferior venacavogram w as performed. This demonstra jose a the IVC to be patent. The IVC filter is visualized in the mid to lower IVC. An inferior vena cava filter removal snare was inserted. The hook of the IVC filter was snared and the sheath was brought over the IVC filter. The IVC filter was successfully removed without complication. A post IVC gram demonstrated the IVC to be patent and intact. The patient tolerated procedu re well. There were no immed iate complications. The patient was transferred to the recovery room in stable condition. The procedure was performed utilizing universal sterile technique which includes sterile gloves and gown, surgical hat and mask. The procedure was performed utilizing IV conscious sedation which included 2 mg IV Versed, 100 mg IV fentanyl and 50 mg IV Benadryl. Procedure sedation start time at 1005 hours with an end time at 1050 hours. The total fluoroscopy time for the proce dure was 6.5 minutes. DAP- [id number] IMPRESSION: 1. Successful removal of the IVC filter utilizing ultrasound and fluoroscopic guidance as discussed. 2. Pre and post inferior matteo acavograms demonstrated the inferior vena cava be patent with no evidence of thrombus. * * * F I N A L * * * Dictated by: Gaurav Talbot MD Electronically signed by: Gaurav Talbot MD Transcribed by:MERRILL , D: 01/29 14:23, , S: 01/29/2021 14:26 * * * F I N A L * * * XR Chest 2 Views Reason For Exam 05/24/2020 [place] [facility] PRE [facility]: XR Chest 2 Views Center CLINICAL HISTORY: PRE OP TECHNIQUE: PA and lateral view(s) of the chest COMPARISON : November 27, 2019 FINDINGS: LUNGS: 1.3 cm left lower lob e pulmonary nodule is again demonstrated. 8 mm left upper lobe pulmonary nodule projecting left posterior sixth rib. No regional airspace consolidation. Decreased pulmonary vascular congestion compared to the previous exam PLEURA: Sharp costophrenic sulci. HEART: Normal size cardiac silhouette MEDIASTINUM: Normal contours . Left subclavian Mediport catheter terminates at the distal superior vena cava. BONES: Generalized degenerative disc disease in the thoracic spine OTHER: Negative. IMPRESSION: There is a new 8 mm left upp er lobe pulmonary nodule that was not clearly demonstrated on prior exams. Differential diagnosis includes developing granuloma versus soft tissue mass. Consider chest CT for further evaluation 1.3 cm previously seen left lower lobe pulmonary nodule appears similar to reference exam Interval placement of left subclavian Mediport * * * F I N A L * * * Dictated by: Rolando Ortiz MD, MD Electronically signed by: Rolando Ortiz MD Transcribed by:MERRILL , D: 05/24 15:26, , S: 05/24/2020 15:34 * * * F I N A L * * * BRAIN W & W/O CONTRAST MR - BRAIN W and W/O CONTRAST 05/02/2020 [facility] Patient Name: Shea Hemphill Patient : 1940 DOS: May 02, 2020 Patient Ref. Physician: Cathleen Almonte [facility] Exam # [id number] - May 02 2020 - MRI 3T - BRAIN W and W/O CONTRAST Exam Performed at [facility] CLINICAL HISTORY: Stroke. TECHNIQUE: Sagittal T1, Axial diffusion, FLAIR, GRE and T2-weighted images were obtained of the brain. Additional a xial and coronal T1 post contrast sequences were obtained following the intravenous administration of 10 mL of Dotarem (0.5 mmol/mL ) single-use vial with 0 mL discarded. COMPARISON: MRI of the brain from October 23. FINDINGS: Global cerebral volume loss, with pro minence of the ventricles and sulci, is within normal limits f or patient's age. The degree of ventricular enlargement is commensura te with the degree of volume loss. Multifocal bilateral periventricul ar, central pontine, and subcortical white matter T2/FLAIR hyperintensit ies are likely the result of chronic white matter microvascular ischemia. Scattered foci of susceptibility artifact within the frontal lobe s and basal ganglia. Chronic appearing infarcts within the cerebella r hemispheres, the posterior aspect of the left temporal lobe, and left occipital lobe, involves from prior. The cerebellar tonsils are in normal position. There are no masses, mass effect or midline joann ft. No abnormal enhancement. The pituitary gland is normal in s ize. There is no evidence for intracranial hemorrhage or acute c erebral, brainstem or cerebellar infarction. No diffusion-weighted ab normalities are identified. There are no extra-axial fluid anna ections or subdural hematomas. Flow voids are present within the ma ashwini vessels indicating patency. Peripherally enhancing T1 hyperintense lesion within the right frontoethmoid recess is unchanged from prior. IMPRESSION: Interval evolution of previously seen subacute infarcts within the cerebellar hemispheres, left temporal lobe, and left occipital lobe, now demonstrating multiple small areas of encephalo malacia and gliosis. Unchanged right frontoethmoid mucocele and righ t maxillary sinus mucosal thickening. Unchanged age-appropriate global cerebral volum e loss. Multiple scattered foci of susceptibility artif act within the supratentorial brain, likely representing hemos iderin staining from chronic hypertensive microhemorrhages. ELECTRONICALLY SIGNED BY: Acacia Almonte M.D. on May 06, 2020 CT Abdomen+Pelvis w IV Con Reason For Exam 12/13/2019 [place] abdominal pain [facility]AM: CT Abdomen+Pelvis w IV Con Center CLINICAL HISTORY: abdominal pain. Nausea vomitin g diarrhea. TECHNIQUE:Axial CT Images of the abdomen and pelvis were obtained. 100 cc Isovue 370 intravenous contrast was administered. Data was reconstructed in the coronal and sagittal planes. All CT scans at [facility] employ automatic and/or manual dose reduction techniques to keep radiation dose as low as reasonably achievable. COMPARISON: 11/28/2019 FINDINGS: Lung bases: Moderate right p leural effusion. Trace left pleural effusion. Associated atelectasis of the bilateral lower lobes. Liver: The liver is slightly lobulated contour w ithout underlying gross mass. Gallbladder: Slight wall thi ckening noted which is nonspecific with slight increased enhancement of the napier. The gallbladder does not appear to be dilated. No pericholecystic fluid is seen. Pancreas: Mild process of th e pancreatic head and uncinate process which could relate to underlying acute pancreatitis. 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 Prior infarct seen of the left kidney. There is mild prominence the right renal collectin g system with slight uroepithelial thickening wh ich is nonspecific.. Adrenal Glands: Mildly thickened on the left as well as on the right. Spleen: Multiple infarcts or contusion noted of the spleen which have been involvement since the prior exam. There is no active bleeding associated with these lesions. Bowel: No evidence for bowel obstruction. There is mild thickening of the colon especially of the right which is felt most likely to represent colitis. The appendix is not well-visualized. No significan t pericecal inflammatory rachel nges demonstrated to suggest acute appendicitis. No significant colonic diverticulosis is demonstrated. Urinary Bladder: Mildly thickened. Pelvis: Trace ascites noted. There is a large multicompartmentalized cystic mass seen within the right adnexa as seen on the prior exam with felt most likely to represent an ovarian cystic neoplasm. The uterus is surgically absent. Bones:The visualized osseous structures appear intact without destructive lesions. Soft Tissues:The soft tissue s appear unremarkable. The aorta is normal in caliber. No significant lymphadenopathy. IVC filter noted within the infrarenal IVC. IMPRESSION: Mild colitis may present. Th ere also appears be mild cystitis with findings concerning for involvement of the right renal collecting system is well. Interval evolution of bilate ral renal infarcts as well as the splenic infarcts. Likely a large right ovarian complex cystic neop lasm again noted. Small amount abdominal ascit es.. Increased enhancement of the gallbladder which may be related to varices. Trace abdominal ascites as well as small right pleural effusion trace left pleural effusion. Mild prominence of the pancr eatic head and uncinate process which may represent mild acute pancreatitis. Consider follow-up in 6 months to ensure resolution/stability. * * * F I N A L * * * Dictated by: Nelson Hurt MD, Physician Electronically signed by: Nelson Hurt MD Transcribed by:PU , D: 12/12 12:11, , S: 12/13/2019 12:26 * * * F I N A L * * * MR Brain wo+w Con Reason For Exam 12/12/2019 [place] aphasia, neoplasia [facility] Final Report Clinical History and Study Details: aphasia, lauren plasia Contrast Information: 15CC PROHANCE TECHNIQUE: Clinical Event : Neuro follo wing. 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 No associated hemor rhage.' S/p lumbar puncture 11/29. CSF fluid negative. ID following. VZV was negative, HSV negative. Acyclovir stopped. Patient has been having waxing and waning expressive aphasia 12/09. Will follow up MRI results -Gastroenteritis. supportive care. Multiplanar multisequence MR imaging of the brain obtained with and without contrast administration. 15 mL ProHance contrast was intravenously administered. FINDINGS: Comparison made to previous study dated 12/10/2019 Multifocal scattered punctat e multiple scattered punctate subcentimeter acute infarcts within the watershed regions of the cerebral hemispheres, right greater than left, and cerebellum. There is also focal infarction of the left hippocampus. Interval development of T2/F LAIR hyperintensity of the left medial temporal lobe. Scattered punctate low signa l foci of the cerebral hemispheres on gradient echo imaging suggestive for cerebral amyloid angiopathy. Focal encephalomalacia of th e left cerebellar hemisphere consistent with encephalomalacia. No abnormal contrast enhancement of the cerebrum or cerebellum. Generalized cerebral volume loss. Chronic white matter microvascular ischemic change. No extra-axial collections. No midline shift. Th e basal cisterns are patent. Expansile mucous retention cyst of the right fro ntal sinus noted. IMPRESSION: Multifocal punctate acute in farcts of the cerebral anterior middle cerebral arterymiddle cerebral artery watershed regions which may be related to significant carotid disease. Punctate infarcts of the c erebellum are also noted.Foc al infarction of the left hippocampus. Signal change of the mesial left temporal lobe region may be related to edema from infarction but this presentation can also be associa jose a with herpes encephalitis . Clinical correlation is recommended.Chronic white matter microvascular ischemic change.Focal encephalomalacia of the left cerebral hemisphere related to remote infarct. Scattered punctate low signa l foci of the cerebral hemispheres on gradient echo imaging suggestive for cerebral amyloid angiopathy.Expansile mucous retention cyst of the right frontal sinus. Findings were discussed with Nurse Pop 0 9:58 pm. CALLBACK at Dec 11 2019 11:02 PM PST by teressa:IN Patient: Dr Zepeda discussed with Nurse Peace HOWE at 10:58 PM PDT Report Dictated by Radiologist: GRAHAM DIAZ M.D. Diplomate [place] [employer] [facility] Requisition#: [id number] Electronically Signed by MEENA DIAZ 2019-12-11 23:07:07.22Transcribed by: [id number] * * * F I N A L * * * Dictated by: Graham Diaz MD, Electronically signed by: Graham Diaz MD Transcribed by:CHAN , D: 12/10 23:07, , S: 12/11/2019 23:07 * * * F I N A L * * * CT Head wo Con Reason For Exam 12/10/2019 [place] recent strokes, aphasia, on AC, check for [facility]AM: CT Head wo Con Center CLINICAL HISTORY: recent strokes, aphasia, on AC , check for [facility] Volumetric axial acquisition was obtained noncontrast. Correlation is made with the study dated 05 December 2019. Widening and deepening of th e cortical sulci is seen diffusely in association with prominence of the lateral and third ventricles. Some periventricular white matter low density is seen. No hyperdense ar eas are seen to suggest an a cute hemorrhage. No midline shift or mass effect is seen. Focal encephalomalacia is seen in the left cerebellum posteriorly. No abnormal extracerebral fluid collections are i dentified. Some vascular nilo cifications are present. The calvarium is unremarkable. Some fluid and/or mucosal thickening is seen in the frontal, ethmoid, and sphenoid sinuses. There does appear to be so me thinning of the bone in the right frontal sin us region. IMPRESSION: 1. Probable old left cerebellar infarct 2. Atrophy 3. Nonspecific white matter changes 4. Atherosclerosis 5. Probable sinusitis of the frontal, ethmoid, and sphenoid sinuses. The thinning of the bone in the frontal region should be assessed to exclude an underlying neoplasia. * * * F I N A L * * * Dictated by: Daren Richard DO Electronically signed by: Daren Richard DO Transcribed by:MERRILL , D: 12/09 12:04, , S: 12/10/2019 12:11 * * * F I N A L * * * CT Drainage Visceral/Organ Reason For Exam 12/07/2019 [place] ovarian mass [facility] EXAM: CT Drainage Visceral/Organ Center CLINICAL HISTORY: ovarian ma ss. History of multiple CVAs. Appearance concerning for malignancy with possible metastatic disease. Patient is a poor operative candidate. Request biopsy PROCEDURE: CT guided right ovarian cystic mass b iopsy INTERVENTIONAL RADIOLOGIST: Rolando Ortiz MD COMPLICATIONS: No immediate or apparent ESTIMATED BLOOD LOSS: None MEDICATIONS: 1 mg intravenou s Versed, 25 mcg intravenous fentanyl . 4 mL local 1% lidocaine DLP: 818.32 mGy*cm CTDI: 15.6 mGy START TIME/END TIME: 30 minutes TECHNIQUE: Following discuss ion of risks, benefits, and alternatives, the patient provide written informed consent. Dose reduction techniques in cluding iterative reconstruction, Automated exposure control, adjustment of mA and/or kV according to patient size, and dose modulation utilizing ALARA (As low as reasonably achievable) exposure principles. 1 mg IV Versed and 25 mcg IV Fentanyl were used for moderate sedation monitored under my direct supervision and the interventional radiology nurse who had no other clinical responsibilities. Total intra service time of sedation was approximately 30 minutes. The patient's vital signs were monitored throughout the procedure and recorded in the patient's medical record by the nurse. CT localized the lesion. A 1 7 gauge guide needle was advanced under CT guidance to the margin of the lesion. 4 x 18 gauge core biopsy specimens were obtained and provided to the pathologist. The biopsy was considered completed whe n the pathologist indicated a satisfactory specimen. As the guide needle was withdrawn, manual hemostasis was obtained. Repeat CT of the abdomen was performed to evaluate for any complication. The patient tolerated the pr ocedure well. There were no immediate or apparent complications. Following a period of observation, the patient was discharged from the department in good condition FINDINGS: CT images confirm satisfacto ry needle placement at the margin of the lesion. No periprocedural hematoma following guiding needle removal IMPRESSION: Uncomplicated CT-guided right ovarian cystic mas s biopsy. Final pathology results pending at the time of t his dictation * * * F I N A L * * * Dictated by: Rolando Ortiz MD, MD Electronically signed by: Rolando Oritz MD Transcribed by:MERRILL , D: 12/06 14:16, , S: 12/07/2019 14:20 * * * F I N A L * * * CT Head wo Con Reason For Exam 12/06/2019 [place] severe [facility]OZ- previous strokes [facility]: CT head without IV contrast Center CLINICAL HISTORY: Severe headache and previous s trokes. COMPARISON: MRI brain 11/29/2019 TECHNIQUE: Serial axial CT s can of the head are obtained without intravenous contrast. Coronal reconstructed images were submitted. The protocol utilizes one or more the following dose reduction techniq ues: Automated exposure cont rol, adjustment of the mA and/or kV according to patient size, and/or use of iterative reconstruction technique. FINDINGS: Normal connelly-white matter differentiation. No abnormal shift of the midline structures. Basal cisterns are patent. Mild to moderate periventricular white matter hypodensities are seen most sugg estive of chronic microvascular ischemic changes . Mild to moderate generalized cerebral volume loss, central and peripheral. No hydrocephalus is seen. No focal mass, mass effect, hemorrhage, infarct or abnormal extra-axial fluid collections are noted r ight frontal sinus marked op acification again seen.. Included rest of the paranasal sinuses and mastoids appear clear. Calvarium intact. IMPRESSION: 1. No acute intracranial abn ormality. No CT evidence of intracranial hemorrhage. No CT evidence of acute intracranial injury. 2. Generalized cerebral volu me loss and chronic microvascular ischemic changes as above. * * * F I N A L * * * Dictated by: Otoniel Martin MD, Physician Electronically signed by: Otoniel Martin MD Transcribed by:MERRILL D: 12/04 17:39, , S: 12/05/2019 17:43 * * * F I N A L * * * US Pelvic Non OB Reason For Exam 12/02/2019 [place] ovarian cyst [facility]AM: US Pelvic Non OB Center CLINICAL HISTORY: ovarian cyst Pelvic sonogram was performed. Note is a prior C T examination of 11/28/2019 A complex mass is seen in th e pelvis with diffuse cystic components and multiple irregular internal soft tissue densities. This mass measures 14.5 x 9.1 x 14.8 cm. There is evidence of vascular flow within this mass on Doppler exam. There also may be some free fluid in the pelvis. IMPRESSION: Complex primarily cystic mass pelvis. Neoplasm m ust be excluded. * * * F I N A L * * * Dictated by: Greg Turpin MD Electronically signed by: Greg Turpin MD Transcribed by:MERRILL D: 12/02 07:38, , S: 12/03/2019 07:40 * * * F I N A L * * * XR Lumbar Puncture Reason For Exam 11/29/2019 [place] Diagnostic w Guide [facility] light sensitive [facility]: XR Lumbar Puncture Diagnostic w Guide Center CLINICAL HISTORY: Headache, light sensitive COMPARISONS: None. FINDINGS: Informed consent was obtaine d from the the patient after discussing procedure, risks, benefits and alternatives. Sterile technique, local ane sthesia and fluoroscopic guidance was utilized to place a 22 gauge spinal needle posteriorly at the L3-4 level. Approximately 8 ml of clear CSF fluid is obtained. The patient tolerated proced ure without immediate complications. The fluid sample was sent for laboratory analysis as per request of the ordering physician. Fluoroscopy time: 8 seconds. DAP 121.6 IMPRESSION: Technically successful fluor oscopic guided lumbar puncture without immediate postprocedural complications. * * * F I N A L * * * Dictated by: Otoniel Martin MD, Physician Electronically signed by: Otoniel Martin MD Transcribed by:MERRILL D: 11/29 15:18, , S: 11/29/2019 15:21 * * * F I N A L * * * MR Brain wo Con Reason For Exam 11/29/2019 [facility] Medical EXAM: MR Brain wo Con, MR Orb/Face/Neck wo Con Center CLINICAL HISTORY: blindness. Acute embolic strok e. COMPARISON: MRI brain 11/05/2019, CT head 0 TECHNIQUE: Multiplanar, mult isequence imaging of the brain was performed without contrast. In addition, multiplanar noncontrast thin section imaging through the orbits was performed. FINDINGS: Innumerable scattered foci r estricted diffusion are present, many are new compared to the prior exam throughout the brain. A few of the foci are residual restriction from the prior embolic infarcts from 11/23/2019. The largest area s of new infarct involves the right occipital lobe (although there are some of the left occipital lobe as well) and patchy areas of restriction within bilateral cerebellar he mispheres. In addition, ther e is a new infarct within the right caudate head. There is no associated hemorrhage. Scattered areas of T2 prolon gation are probably due to chronic small vessel ischemic change and partly due to edema from the infarcts. The rest of the signal within the brain parenchyma has a normal rafi earance. The ventricles and sulci are mildly enlarged consistent with volume loss. No evidence of hemorrhage. No abnormal extra-axial fluid collections. Normal-appearing major vascular flow voids. Midline structures are intact. Soft tissues have a normal a ppearance. Inspissated mucus within the right frontal sinus with mild to moderate mucoperiosteal thickening in the rest the paranasal sinuses. Mastoids are clear. No calvarial lesions are seen. Orbits have a normal symmetr ic appearance bilaterally. Optic nerves are symmetric. Extraocular muscles have a normal appearance. No evidence of a mass. Normal signal within the globes. IMPRESSION: 1. Innumerable acute embolic infarcts most prominent in the right occipital lobe and bilateral cerebellum, new compared to 11/05/2019. No associated hemorrhage. 2. Normal MRI orbits. * * * F I N A L * * * Dictated by: Barbra Calvert DO Electronically signed by: Barbra Calvert DO Transcribed by:MERRILL , D: 11/29 08:47, , S: 11/29/2019 09:02 * * * F I N A L * * * MR Orb/Face/Neck wo Con Reason For Exam 11/29/2019 [facility] Medical EXAM: MR Brain wo Con, MR Orb/Face/Neck wo Con Center CLINICAL HISTORY: blindness. Acute embolic strok e. COMPARISON: MRI brain 11/05/2019, CT head 0 TECHNIQUE: Multiplanar, mult isequence imaging of the brain was performed without contrast. In addition, multiplanar noncontrast thin section imaging through the orbits was performed. FINDINGS: Innumerable scattered foci r estricted diffusion are present, many are new compared to the prior exam throughout the brain. A few of the foci are residual restriction from the prior embolic infarcts from 11/23/2019. The largest area s of new infarct involves the right occipital lobe (although there are some of the left occipital lobe as well) and patchy areas of restriction within bilateral cerebellar he mispheres. In addition, ther e is a new infarct within the right caudate head. There is no associated hemorrhage. Scattered areas of T2 prolon gation are probably due to chronic small vessel ischemic change and partly due to edema from the infarcts. The rest of the signal within the brain parenchyma has a normal rafi earance. The ventricles and sulci are mildly enlarged consistent with volume loss. No evidence of hemorrhage. No abnormal extra-axial fluid collections. Normal-appearing major vascular flow voids. Midline structures are intact. Soft tissues have a normal a ppearance. Inspissated mucus within the right frontal sinus with mild to moderate mucoperiosteal thickening in the rest the paranasal sinuses. Mastoids are clear. No calvarial lesions are seen. Orbits have a normal symmetr ic appearance bilaterally. Optic nerves are symmetric. Extraocular muscles have a normal appearance. No evidence of a mass. Normal signal within the globes. IMPRESSION: 1. Innumerable acute embolic infarcts most prominent in the right occipital lobe and bilateral cerebellum, new compared to 11/05/2019. No associated hemorrhage. 2. Normal MRI orbits. * * * F I N A L * * * Dictated by: Barbra Calvert DO Electronically signed by: Barbra Calvert DO Transcribed by:MERRILL , D: 11/29 08:47, , S: 11/29/2019 09:02 * * * F I N A L * * * Vasc Dplx Matteo Low Ext Reason For Exam 11/28/2019 [facility]: US Vas Dplx Matteo Low Ext [facility] HISTORY: Bilateral leg swelling. COMPARISON: 11/06/2019. TECHNIQUE: Duplex venous ult rasound examination of both lower extremities was performed using color Doppler imaging. Evaluation of flow dynamics, compressibility and augmentation. FINDINGS: Right lower extremity venous system real-time imaging performed and static images were reviewed. Images demonstrate no filling defects within the common femoral, femoral, saphenofemoral junction, poplit eal, peroneal or posterior t ibial venous systems. Spontaneous phasic waveforms were demonstrated. Vessels were also compressed. Left lower extremity venous system real-time imaging performed and static images were reviewed. Images demonstrate no filling defects within the common femoral, femoral, saphenofemoral junction, poplite al, peroneal or posterior ti bial venous systems. Spontaneous phasic waveforms were demonstrated. Vessels were also compressed. IMPRESSION: No evidence of deep venous thrombosis within the bilateral lower extremities. * * * F I N A L * * * Dictated by: Javi Rangel DO Electronically signed by: Javi Rangel DO Transcribed by:MERRILL , D: 11/28 16:07, , S: 11/28/2019 16:10 * * * F I N A L * * * [facility] Dplx Art Low Ext Reason For Exam 11/28/2019 [place] [facility] calf [facility] EXAM: US [facility] Dplx Art Low Ext [facility] HISTORY: Bilateral leg/calf pain. COMPARISON: None. TECHNIQUE: Sonographic asses sment of the arterial system right and left lower extremity performed using connelly scale, duplex and color Doppler imaging. FINDINGS: Mild scattered bilateral arterial atherotic calc ifications noted. RIGHT LEG: Common femoral artery = 82 cm/sec, triphasic wav eform Origin profunda femoris artery = 17 cm/sec, mono phasic Proximal femoral artery = 54 cm/sec, triphasic Mid femoral artery = 62 cm/sec, triphasic Distal femoral artery = 70 cm/sec, triphasic Popliteal artery = 60 cm/sec, triphasic Posterior tibial artery = 25 cm/sec, monophasic Dorsalis pedis artery = 38 cm/sec, monophasic LEFT LEG: Common femoral artery = 73 cm/sec, triphasic wav eform Origin profunda femoris artery = 29 cm/sec, trip hasic Proximal femoral artery = 87 cm/sec, triphasic Mid femoral artery = 80 cm/sec, triphasic Distal femoral artery = 57 cm/sec, triphasic Popliteal artery = 66 cm/sec, monophasic Posterior tibial artery = 15 cm/sec, monophasic Dorsalis pedis artery = 18 cm/sec, monophasic IMPRESSION: Arterial findings compatible with bilateral mild peripheral arterial disease. No evidence of high-grade stenosis or occlusion. * * * F I N A L * * * Dictated by: Jaiv Rangel DO Electronically signed by: Javi Rangel DO Transcribed by:MERRILL , D: 11/28 16:18, , S: 11/28/2019 16:22 * * * F I N A L * * * CT Abdomen+Pelvis w IV Con Reason For Exam 11/28/2019 [facility] abdominal pain [facility] EXAM: CT Abdomen+Pelvis w IV Con Center CLINICAL HISTORY: All quadrant abdominal pain wi th nausea and vomiting. COMPARISON: CT abdomen pelvis 11/27/2019 TECHNIQUE: CT of the abdomen and pelvis with IV contrast. 100 ml Isovue 370 IV was administered. Transaxial images were obtained from the lung bases through the pubic symphysis with reformatted images i n the coronal and sagittal p jailene. All CT scans at this hospital employ automatic and/or manual dose reduction techniques to keep radiation dose as low as reasonably achievable. FINDINGS: Redemonstration of a large o varian complex cystic neoplasm with multiple septations and apparent eccentric solid nodular components are appreciated, highly concerning for malignancy. This appears overall stable in size. There is mild ascites seen w ithin the peritoneal cavity more pronounced at the pelvis. No free intraperitoneal air. Infrarenal IVC filter again seen in place. The appears of the kidneys i s overall stable with several triangular and striated areas of hypoattenuation similar to the prior exam. Again differential considerations includes bilateral changes of pyel onephritis versus sequela of bilateral renal infarcts. No perinephric mass- producing collections are seen. The rest of the kidneys appear otherwise unremarkable with normal enhancement. No hydronephrosis in bilaterally. No abdominal aortic aneurysm . Atherosclerosis again seen. The SMA appears patent. The liver appears unremarkab le and stable. Portal vein appears patent. Spleen again demonstrates several peripheral hypodensities consistent with areas of hypoattenuation. Again this could represent foc al splenic infarcts, however underlying infiltrative lesions cannot be excluded. The stomach is decompressed limiting its evaluation. Pancreas appears grossly unremarkable. Adrenal glands appear grossly unremarkable. Gallbladder appears unremarkable. No hydronephrosis in bilaterally . The bladder is partially d ecompressed limiting its evaluation. Bladder wall thickening is seen which could be artifactual or suggestive of cystitis or other mucosal abnormality. No jorge alberto lymphadenopat hy appreciated. Adrenal glands appear unremarkab le. The appendix appears within normal limits. No CT evidence of appendicitis. Portions of the left splenic flexure and the left descending colon demonstrates areas of underlying mucosal thickening which co uld be suggestive of nonspec ific colitis. Similar findings are seen also within the sigmoid colon as well as the rectosigmoid. No focal osseous aggressive lesions. Small bowel loops appear unremarkable with no inflammatory nor obstructive changes. No abdominal aortic aneurysm. IMPRESSION: 1. Redemonstration of large ovarian complex cystic lesion which appears overall stable in size measuring up to 12 x 11 cm. This is indeterminate and a malignancy cannot be excluded. 2. Changes of nonspecific co litis are seen about the left colon and sigmoid colon down to the rectosigmoid. Mild ascites. 3. Stable abnormal appearanc e of the kidneys without evidence of hydronephrosis. Differential considerations again include the sequela of pyelonephritis versus bilateral renal infarcts. 4. Appendix appears within normal limits. No CT evidence of appendicitis. 5.Other findings as detailed above. ER CT 11/27/2019 12:59:30 MST 18 g ac started po @ 11/28/2019 09:06:38 MST * * * F I N A L * * * Dictated by: Otoniel Martin MD, Physician Electronically signed by: Otoniel Martin MD Transcribed by:MERRILL D: 11/28 15:36, , S: 11/28/2019 15:53 * * * F I N A L * * * CT Angio Abdomen+Pelvis w Reason For Exam 11/28/2019 [facility] er Con abdominal pain [facility] Exam: CTA Abdomen and pelvis with IV contrast. Center INDICATION: abdominal pain r ight lower quadrant left lower quadrant abdominal pain distention claudication to the lower extremities. COMPARISON: No TECHNIQUE: Axial images acqu ired from of the abdomen and pelvis following 100ml [id number] cc Isovue 370 intravenous contrast with sagittal and coronal reconstruction imaging. 3-D multirotational MIP recons truction imaging performed o f the aortic vasculature, generated at a separate workstation by technologist. All CT scans at this hospital employ automatic and/or manual dose reduction techniques to keep radiation dose as low as reasonably achievable. FINDINGS: The abdominal aort a is normal in caliber and contour with moderate atherosclerotic calcifications. No underlying dissection is demonstrated. The aortic bifurcation is normal in caliber without underlying stenosis. 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 The celiac artery branch vessels appear grossly patent. The SMA demonstrates coarse calcifications without significant stenosis. The S MA branch vessels appear grossly patent throughout. The [place] appears to be moderately narrowed at its origin but otherwise appears grossly unremarkable. The bilateral renal ar teries appear to be grossly patent with mild to mild atherosclerotic calcifications. Mild peribronchial thickenin g noted within the bilateral lower lobes which could be chronic in nature with diffuse interlobular septal thickening as well as underlying emphysematous changes. The liver appears grossly un remarkable. As a part from slightly nodular appearance. Gallbladder is unremarkable as well. There is a focal low- attenuation lesion at the lower pole of the spleen which dem onstrates wedge-shaped appea osman with preservation of the capsule which may represent prior infarct. Additional areas of decreased attenuation seen at the upper pole likely related to additional areas of infarcts probable scarrin g related to the inferior pole of the spleen. Mild thickening of bilateral adrenal glands. There is decreased attenuation the right kidney with moderate surrounding fat stran ding. Striated appearance th e bilateral kidneys with more wedge-shaped appearance of decreased attenuation the right kidney which may be related to pyelonephritis without jorge alberto focal collection. Especia lly on the left. However, un derlying infarct could also be of consideration no hydronephrosis is demonstrated. No structural caval left renal vein noted. The IVC filter is seen with low the renal veins in place. There are bladder appears to be mildly thickened anteriorly. Trace free fluid within the pelvis. Mild colonic diverticulosis is noted without evidence for diverticulitis. Mild thickening of th e transverse colon as well a s the right colon is noted. The appendix is unremarkable. There is a right adnexal cystic mass noted measuring 11.9 x 12.6 cm with thickened napier and nodular components jose angel uring up to 1.6 x 2.4 cm lik kenji related to a cystic neoplasm arising from the right ovary. The uterus is surgically absent. There is a dense lesion seen within a small bowel loop within the midabdomen a t the midline which appears to be somewhat stable on delayed imaging seen in the loop further beyond and may be related to enteric material. Rather than hemorrhage. The visualized osseous struc tures demonstrate mild diffuse osteopenia. There is slight heterogeneity of the bones. Which could be due to osteopenia. However, infiltrating process cannot be entirely excluded. IMPRESSION: No aortic aneurysm or dissec tion. 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 Additionally, there is moderate narrowing of the SMA at the origin and proximally without jorge alberto stenosis. There are striated appearanc e the bilateral kidneys which may reflect pyelonephritis. However, underlying infarct could also be of consideration especially on the right side. No focal collection identif ied. 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 * * * F I N A L * * * Dictated by: Nelson Hurt MD, Physician Electronically signed by: Nelson Hurt MD Transcribed by:PU , D: 11/27 19:54, , S: 11/27/2019 20:10 * * * F I N A L * * * XR Foot 3+ Views Rt Reason For Exam 11/27/2019 [place] toe pain [facility] EXAM: XR Foot 3+ Views Rt Center CLINICAL HISTORY: toe pain TECHNIQUE: 3 views of the right foot COMPARISON: None FINDINGS: No acute fracture or subluxa tion. Congruent forefoot and midfoot junction is noted. Cystic change at the base of the second metatarsal. Degenerative changes throughout the right foot are noted. Prominent plantar calcaneal spur. No sig nificant soft tissue swelling is seen. IMPRESSION: Degenerative changes. No acute fracture or sublu xation. * * * F I N A L * * * Dictated by: Osbaldo Everett DO Electronically signed by: Osbaldo Everett DO Transcribed by:MERRILL , D: 11/28 09:10, , S: 11/28/2019 09:11 * * * F I N A L * * * XR Chest 1 View Portable Reason For Exam 11/27/2019 [place] [facility] Atypical Chest Pain [facility] EXAM: XR Chest 1 View Portable C enter INDICATION: Atypical Chest Pain TECHNIQUE: Single projection of the chest. COMPARISON: CT 11/04/2019 FINDINGS: The heart size is normal. The hilar shadows are normal Lungs show no consolidation or effusion 1.8 cm nodular density in the left lower lung is noted Hemidiaphragms are unremarka ble. Costophrenic angles are sharp. Osseous structures show no acute abnormalities. IMPRESSION: Nodular density in the left lower lung measuring 1.5 cm. Findings are present on prior CT from 11/04/2019. Continued follow-up is recommended. 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 : 1940 Requested By: Vikas Holley Order Number: [id number] Reading MD: Jimmie johnson MD Measurements Intervals [place] Rate: 103 P: 60 [place]: 152 QRS: -2 QRSD: 86 T: 36 QT: 326 QTc: 428 Severity: No Severity Defined Interpretive Statements SINUS TACHYCARDIA No Severity Defined Electronically Signed On 11-27-2019 18:22:02 MST by Jimmie Coe MD IR IVC Filter Placement Reason For Exam 11/15/2019 [place] [facility] Percutaneous PARADOXYCAL THROMBOEMBOLISM DESPITE ANTICOAGULAT [facility] EXAM: IR IVC Filter Placement Percutaneous CLINICAL HISTORY: PARADOXYCAL THROMBOEMBOLISM DE SPITE ANTICOAGULATION PROCEDURES: Ultrasound of the right internal jugular vein Ultrasound guided access right internal jugular vein Guidewire and catheter selection of the inferio r vena cava Inferior venacavography Inferior vena cava filter placement. Manual compression.hemostasis Conscious sedation INDICATION: Pulmonary emboli sm prophylaxis. History of patent foramen ovale and stroke and DVT. INTERVENTIONAL RADIOLOGIST: Rolando Ortiz MD FLUOROSCOPY TIME: 0.9 Minutes DAP: 2.735 mGy*cm^2 AIR KERMA: 104 mGy CONTRAST: 25 mL Isovue-370. SEDATION: None ESTIMATED BLOOD LOSS: Scant COMPLICATIONS: None START TIME/END TIME: 6008-7459 TECHNIQUE: Following discussion of risk s, benefits, and alternatives the patient by written informed consent for the procedure. The patient was brought into the procedure suite and appropriately identified. The pr ocedure was reviewed with th e patient and the team per standard timeout protocol. 2 mg IV Versed and 100 mcg I V Fentanyl were used for moderate sedation monitored under my direct supervision and the interventional radiology nurse who had no other clinical responsibilities. Total intr aservice time of sedation wa s approximately 30 minutes. The patient's vital signs were monitored throughout the procedure and recorded in the patient's medical record by the nurse. Right internal jugular vein was sonographically localized and deemed appropriate for venipuncture. The overlying skin was sterilely dressed and prepped in the usual fashion including 2% chlorhexidine an d a sterile drape. Maximal s terile precautions were utilized including sterile gloves, hat, mask, and gown. 1% lidocaine was subcutaneously infused. Utilizing real-time ultrasound, micropuncture access was obtained into the right internal jugular vein. An 0.35 guidewire was passed followed by advancement of a 6 [place] sheath. Inferior venacavography was performed through the 6 [place] sheath. The sheath was positioned be low the renal veins in the inferior vena cava and an Argon IVC filter was uneventfully deployed and appropriately positioned in the infrarenal IVC. Repeat inferior venacavography was then performed. The sheath was subsequently removed. Manual compression was applied for approximately 5 minutes and hemostasis was achieved. The patient tolerated the procedure well. There were no immediate or apparent complications. The patient was subseque ntly discharged without further event. FINDINGS: Right internal jugular vein is compressible with out thrombus. The inferior vena cava is pa tent with a gentle left convex curvature. There is an accessory left renal vein inserting at the level of the mid L3 vertebral body.. Final image confirms inferio r vena cava filter placement below the renal vein inflow. IMPRESSION: UNCOMPLICATED INFERIOR VENA CAVA FILTER PLACEME NT. * * * F I N A L * * * Dictated by: Rolando Ortiz MD, MD Electronically signed by: Rolando Ortiz MD Transcribed by:MERRILL , D: 11/15 15:43, , S: 11/15/2019 15:47 * * * F I N A L * * * CT Head wo Con Reason For Exam 11/14/2019 [facility] F/U CVA, severe headache [facility] Medical CLINICAL HISTORY: Center F/U CVA, severe headache COMPARISON: 11/07/2019 TECHNIQUE: Unenhanced helical CT images were acquired throu gh the head. All CT scans at [facility] automatic and/or manual dose reduction techniques to keep radiation dose as low as reasonably achievable. FINDINGS: Generalized atrophy. No midl ine shift or mass effect. No intra or extra-axial mass, fluid collection, or hemorrhage. Subacute infarct in the left occipital and tempo ral lobe is seen. Mild nonspecific low-density periventricular whi te matter changes are noted. Remote left cerebellar infarct. Connelly-white differentiation is well preserved. The mastoid air cells are cl ear. Mucosal thickening in the left sphenoid right maxillary sinus. Complete opacification of the right frontal sinus is seen. The bony calvarium is intact. IMPRESSION: Subacute infarcts in the left occipital and temp oral lobes. Stable sinus disease as discussed. * * * F I N A L * * * Dictated by: Osbaldo Everett DO Electronically signed by: Osbaldo Everett DO Transcribed by:MERRILL , D: 11/13 17:02, , S: 11/13/2019 17:07 * * * F I N A L * * * CT Head wo Con Reason For Exam 11/07/2019 [place] [facility] Medical EXAM: CT Head wo Con Center CLINICAL HISTORY: Visual changes. Multiple cereb ral infarcts, follow-up exam. COMPARISON: MRI 11/05/2019. CT 11/04/2019. TECHNIQUE: Transaxial images were obtained from the skull base to the vertex without contrast. All CT scans at this hospital employ automatic and/or manual dose reduction techniques to keep radiation dose as low as reasonably achievable. FINDINGS: Scattered left occipital lob e and left posterior medial temporal lobe hypodense changes are now present (not visualized on CT 11/04/2019) compatible with subacute infarctions identified on MRI to 0. There is no evidence of a cute intracranial hemorrhage, midline shift, abnormal extra-axial fluid collection, or mass lesion. The ventricles are nondilated. The cortical sulci are normal for patient's age. Right frontal sinus opacific ation again noted. Remaining visualized paranasal sinuses and mastoid air cells are unremarkable. Calvarium is grossly intact. IMPRESSION: Scattered small hypodense ch anges present compatible with multiple subacute infarcts (described above), as identified on MRI 11/23/2019. * * * F I N A L * * * Dictated by: Javi Rangel DO Electronically signed by: Javi Rangel DO Transcribed by:MERRILL , D: 11/07 09:28, , S: 11/07/2019 09:37 * * * F I N A L * * * US Vasc Dplx Matteo Low Ext Reason For Exam 11/07/2019 [place] [facility] dvt, pfo, new cva [facility] EXAM: US Vasc Dplx Matteo Low Ext [facility]at Center HISTORY: New CVA, stroke. Calf tenderness. Histo ry of DVT. COMPARISON: Duplex venous ultrasound lower extre mities 10/25/2019 TECHNIQUE: Duplex venous exa mination of both lower extremities was performed from the groin through the calf using color Doppler imaging. Evaluation of flow dynamics, compressibility and augmentation. FINDINGS: Left leg peroneal veins demo nstrate abnormal echo pattern most suggestive of small DVT. The right and left leg deep venous systems appear otherwise patent. The left popliteal vein appears patent on this exam with no evidence of DVT. IMPRESSION: The exam is POSITIVE for lef t calf DVT on this patient with history of recent DVT. No additional DVTs about the left leg as above. The right deep venous system is patent with no a pparent DVT. * * * F I N A L * * * Dictated by: Otoniel Martin MD, Physician Electronically signed by: Otoniel Martin MD Transcribed by:MERRILL , D: 11/06 22:35, , S: 11/06/2019 22:39 * * * F I N A L * * * XR Wrist 3+ Views Lt Reason For Exam 11/07/2019 [place] pain [facility] Medical EXAM: XR Wrist 3+ Views Lt Cente r CLINICAL HISTORY: Left wrist pain FINDINGS: Frontal, lateral, and obliqu e views of the left wrist were performed without prior exams for comparison. There is no evidence of fracture or malalignment. Soft tissues are unremarkable. No osseous lesio ns are seen. The bones are o steopenic. Well-corticated osseous fragment distal to the ulnar styloid may be from remote trauma. Mild first carpal metacarpal degenerative changes with mild hypertrophic changes. Atherosclerotic calcifications. IMPRESSION: No evidence of acute fracture or malalignment of the left wrist. Osteopenia. * * * F I N A L * * * Dictated by: Barbra Calvert DO Electronically signed by: Barbra Calvert DO Transcribed by:MERRILL , D: 11/07 07:29, , S: 11/07/2019 07:31 * * * F I N A L * * * MR Brain wo Con Reason For Exam 11/05/2019 [place] [facility] EXAM: MR Brain wo Con Center CLINICAL HISTORY: Worsening headache, light sensitivity, memory difficulties, Stroke COMPARISON: CT head 11/04/2019 TECHNIQUE: Multiplanar and m ultisequence MRI of the brain was performed without IV gadolinium contrast. FINDINGS: Mild T2/FLAIR hyperintense f oci are seen within the periventricular white matter most suggestive of chronic microvascular ischemic changes. The brain demonstrates no ev idence of intracranial hemorrhage, mass, mass effect, hydrocephalus, or extra-axial fluid collections. No abnormal shift of the midline structures. Several multiple small mainl y punctate foci of restricted diffusion are seen within both cerebellar hemispheres infratentorially and supratentorially about both cerebral hemispheres at the frontal, evan etal and bilateral occipital lobes, most consistent with multiple small acute infarcts. The largest area of involvement about the mesial left temporal lobe measures approximately 1.1 x 1.7 cm on image 1 7 series 304. The rest of th e punctate foci are mainly subcentimeter. There is a conglomerate of cortical based curvilinear restricted diffusion by the left occipital lobe consistent with additional acu te infarct. The distribution and multiplicity of abnormalities suggests a potential embolic etiology. Correlate clinically. Normal connelly-white matter differentiation is note d. The normal expected flow-voids are seen. No MR evidence of segmental infarct. The basal cisterns are patent. The sella/pituitary area appears unremarkable. The mastoids appear clear by MRI. Right frontal and anterior ethmoid mucosal thickening and opacities are seen. Moderate right maxillary sinus opacities. The marrow signal intensity is unremarkable. IMPRESSION: 1. Several multiple supra an d infratentorial small mainly punctate areas of restricted diffusion most consistent WITH MULTIPLE ACUTE INFARCTS are seen within the cerebellar hemispheres and as well as sanjuanita th cerebral lobes as detaile d above. The largest of these foci measures up to 1.1 x 1.7 cm about the left mesial temporal lobe. The rest of the punctate foci are mainly subcentimeter. Given the multipli city and distribution of acu te infarcts, this suggests a potential embolic etiology. 2. No MR evidence of intracranial hemorrhage or extra-axial hematomas. 3. Minimal chronic microvascular ischemic change s. 4. No midline shift. No mass effect. * * * F I N A L * * * Dictated by: Otoniel Martin MD, Physician Electronically signed by: Otoniel Martin MD Transcribed by:PU , D: 11/05 18:10, , S: 11/05/2019 18:21 * * * F I N A L * * * CT Angio Chest w Con Reason For Exam 11/05/2019 [place] elevated trop, SOB [facility] Final Report Clinical History and Study Details: elevated tro p, SOB Contrast Information: isovue 370 75cc's TECHNIQUE: Clinical Event : ELEVATED TROP, SOB HX STROKE Thin section axial images fr om thoracic inlet to upper abdomen during injection of intravenous contrast. 3D reformatted MIP images obtained. FINDINGS: Comparison made to previous study dated 0 Evaluation of pulmonary prachi asher and distal branches show no evidence of pulmonary embolus. The thoracic aorta shows no dissection or aneurysm. 1.4 cm nodule in superior segment of LLL with central calc ification. Micronodular infi ltrates in RUL and RLL adjacent to major fissure. No axillary or mediastinal adenopathy seen. Visualized portion of upper abdomen show no significant abnormalities. IMPRESSION: No PE. No aortic dissection. Micronodular infiltrates in RUL and RLL. Follow up. Probable granuloma or hamartoma in LLL. Report Dictated by Radiologist: ACACIA HADDAD M.D. 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: : 1940 Requested By: Lalit Wilson Order Number: [id number] Reading MD: Jesús reddy MD Measurements Intervals [place] Rate: 78 P: 73 OH: 161 QRS: -24 QRSD: 85 T: 12 QT: 356 QTc: 407 Severity: Abnormal ECG Interpretive Statements SINUS RHYTHM INFERIOR MYOCARDIAL INFARCTION , PROBABLY OLD Reviewed by Abnormal ECG Compared to ECG 10/24/2019 20:29:31 No significant changes Electronically Signed On 11-05-2019 12:29:[address] Code Stroke Head Reason For Exam 11/05/2019 [place] 2/Bleed MUNOZ, recent cva, vision changes [facility] EXAM: CT Code Stroke Head 2/Bleed Center CLINICAL HISTORY: MUNOZ, recent cva, vision changes . COMPARISON: 10/25/2019 TECHNIQUE: Transaxial images were obtained from the skull base to the vertex without contrast. All CT scans at this hospital employ automatic and/or manual dose reduction techniques to keep radiation dose as low as reasonably achievable. FINDINGS: There is no evidence of acut e intracranial hemorrhage, midline shift, abnormal extra-axial fluid collection, or mass lesion. The ventricles and sulci are normal for patient's age. The connelly-white matter differentiation is preserved. Mild mucosal thickening of t he right maxillary sinus with sclerotic appearance of the right maxillary sinus napier. Mild mucosal thickening the ethmoid air cells. Near-complete opacification the right fr ontal sinus with thinning of the right lateral wall. Mastoid air cells appear well aerated. Calvarium is grossly intact. IMPRESSION: No radiographic acute intrac ranial abnormality. Possible mucocele within the right frontal sinus. * * * F I N A L * * * Dictated by: Nelson Hurt MD, Physician Electronically signed by: Nelson Hurt MD Transcribed by:PU , D: 11/04 20:14, , S: 11/04/2019 20:16 * * * F I N A L * * * CT Head wo Con Reason For Exam 10/26/2019 [place] embolic acute stroke. [facility] EXAM: CT Head wo Con Center CLINICAL HISTORY: embolic acute stroke. COMPARISON: None TECHNIQUE: Transaxial images were obtained from the skull base to the vertex without contrast. Coronal reconstruction imaging is generated. The technique utilizes dose reduction adjustment of the mA and/or kV optimized per protocol for the targeted examination and matched to the indication. Dose reduction techniques to keep radiation dose as low as reasonably achievable. FINDINGS: The ventricles, sulci, and cisterns are age appr opriate. There is prominent patchy hy podensity involving the periventricular and subcortical white matter. In the peripheral aspect of the left cerebellum inferiorly is a small area of encephalomalacia has the appearance of old infarct. No focal mass, mass effect, hemorrhage, infarct or abnormal extra-axial fluid collections are noted. The bony calvarium is intact . Mucosal thickening and prominent hyperostosis involves the visualized portions of the right maxillary sinus. Complete opacification of the right frontal sinus, somewhat exp anded with smooth bony remod eling. No soft tissue extension beyond the sinus. The mastoid air cells are relatively clear. IMPRESSION: Prominent patchy hypodensity involving the periventricular and subcortical white matter most compatible with small vessel ischemic change. No acute infarct or bleed identified on current examination. Chronic appearing small left inferior cerebellar infarct. Chronic appearing right fron jenna and right maxillary sinus disease. The right frontal sinus is somewhat expansile with smooth bony remodeling. Could represent mucocele. There is thickening of the wall though no extension beyond the wall. * * * F I N A L * * * Dictated by: Cristofer Sanchez DO, DO Electronically signed by: Cristofer Sanchez DO Transcribed by:MERRILL , D: 10/25 19:32, , S: 10/25/2019 19:35 * * * F I N A L * * * CT Angio Head+Neck w Reason For Exam 10/26/2019 [place] Contrast embolic acute stroke on outside neuroimaging [facility] Exam: CTA Neck and head with IV contrast. Center INDICATION: embolic acute stroke on outside neur oimaging COMPARISON: Noncontrast head CT from the same da y TECHNIQUE: Axial CT images w ere acquired through the neck and head following intravenous contrast with multiplanar reconstruction imaging. 3-D multirotational MIP reconstruction imaging was performed of the aortic arch, neck and h ead vasculature was generated at a separate workstation by a technologist to aid in evaluation. CT dose reduction technique utilized: Automated exposure control and/or manual dose reduction techniques to keep radiation dose as low as reasonably achievable. Estimation of percent mba internship al carotid arterial stenosis, when present, takes into account estimated diameter at the point of maximum narrowing compared to the diameter of the more distal, normal ICA (based on NASCET criteria). Intravenous contrast: 75CC ISOVUE 370 cc Isovue 370 Findings: Aortic arch and origins cephalic vessels is unre markable. Patent right common carotid artery. The right internal carotid a rtery bulb demonstrates mild intimal thickening and plaque with less than 20 % stenosis. Antegrade flow right internal carotid artery wit hout stenosis or occlusion. Patent cavernous portion right distal internal c arotid artery. Normal antegrade flow into a patent [place]. Patent left common carotid artery. The left internal carotid ar abdirizak bulb demonstrates mild calcified and noncalcified plaque with estimated stenosis of 20-30%. Antegrade flow patent left internal carotid prachi ry. Patent cavernous portion right distal internal c arotid artery. Normal antegrade flow into a patent [place]. The right vertebral artery i s dominant and shows no areas of atherosclerosis or narrowing. The left vertebral artery is hypoplastic. Portions of the lower left vertebral artery are obscured by the venou s contamination. Along the c ourse of the cervical spine it maintains a normal caliber without visualized narrowing. The distal left vertebral ar abdirizak as it enters the foramen magnum appears to predominantly terminate as the posterior inferior cerebellar artery. A small branch continues on to join the dominant right ve rtebral artery. Basilar prachi ry is normal in caliber without stenosis or aneurysm. The left posterior cerebral artery is intact without narrowing. The right originates from the anterior circulation, norm al variant also without sten osis. Tiny posterior communicating artery seen on the left. The middle and anterior cerebral arteries are intact. Mild hypoplastic right A1 segment likely normal variant. Ant erior communicating artery i s intact without aneurysm. Draining venous sinuses are intact. Degenerative changes of the cervical spine with mild bony encroachment seen onto the right C6-C7 neural foramen. Unremarkable appearance to the skull and skull b ases. Complete opacification of th e right frontal sinus with surrounding bony thinning but without visualized extension beyond the sinus. Chronic appearance to the right maxillary sinus IMPRESSION: Right and left carotid arteries with mild plaque and less than 30% stenosis. Intact intracranial circulat ion without evidence of any arterial occlusion, stenosis, dissection or aneurysm. Normal antegrade flow in bot h vertebral and the basilar artery. Normal posterior fossa circulation. Normal variant partial termi nation of the right vertebral artery is the posterior inferior cerebellar artery normal variant origin of the right posterior cerebral artery. * * * F I N A L * * * Dictated by: Cristofer Sanchez DO, DO Electronically signed by: Cristofer Sanchez DO Transcribed by:MERRILL , D: 10/25 19:22, , S: 10/25/2019 19:32 * * * F I N A L * * * Vas Dplx Matteo Low Ext Reason For Exam 10/26/2019 [facility] thromboembolic event [facility] EXAM: Vas Dplx Matteo Low Ext Bilat Center CLINICAL HISTORY: thromboembolic event TECHNIQUE: Duplex venous exa mination of both lower extremities was performed using color Doppler imaging. Evaluation of flow dynamics, compressibility and augmentation. FINDINGS: The right leg deep venous systems appear patent. Normal compressibility and flow dynamics are seen bilaterally. No evidence of intraluminal thrombus. The greater saphenous veins bilaterally appear patent. In the left popliteal vein t here is an echogenic area of thrombus. The vein wall appears thickened. There appears to be some flow along the distal aspect of the thrombus which is nonocclusive. Occlusive superficial thrombophlebitis is seen within the saphenous vein. IMPRESSION: 1. Nonocclusive small focus of deep venous thrombosis in the left popliteal vein. The findings suggest chronic deep venous thrombosis though there may be superimposed small focus of free floating thrombus along the cephalad portion. 2. Occlusive superficial thrombophlebitis in the left saphenous vein. The patient's nurse will be contacted regarding the above findings. * * * F I N A L * * * Dictated by: Cristofer Sanchez DO, DO Electronically signed by: Cristofer Sanchez DO Transcribed by:MERRILL D: 10/25 17:40, , S: 10/25/2019 17:52 * * * F I N A L * * * XR Chest 1 View Portable Reason For Exam 10/25/2019 [facility] TIA / Stroke [facility] Medical EXAM: Center XR Chest 1 View Portable CLINICAL HISTORY: TIA / Stroke; mental status changes. COMPARISON: No previous studies for comparison TECHNIQUE: Frontal View of the Chest FINDINGS: Heart size is normal. Pulmon elissa vasculature is within normal limits. No confluent pneumonia. No pleural effusion. No pneumothorax. IMPRESSION: No acute cardiopulmonary abnormality. 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: : 1940 Requested By: Yariel Jeffrey Order Number: [id number] Zechariah MD: Luc green MD Measurements Intervals [place] Rate: 74 P: 63 OH: 167 QRS: -25 QRSD: 77 T: -7 QT: 329 QTc: 367 Severity: Abnormal ECG Interpretive Statements SINUS RHYTHM POSSIBLE LEFT ATRIAL ENLARGEMENT LOW QRS VOLTAGE IN PRECORDIAL LEADS SEPTAL MYOCARDIAL INFARCTION , OF INDETERMINATE AGE INFERIOR MYOCARDIAL INFARCTION , OF INDETERMINAT E AGE Reviewed by Abnormal ECG No previous ECG available for comparison Electronically Signed On 10-24-2019 22:17:09 [facility] by Luc Irving MD Consultation Notes Results Value Date Source Discharge Instructions [facility] 01/02/20 [facility] Document [address] [place] [address] SHEA JOSEPH MOR :1940 (EV) Visit Date:01/01/2022 Inpatient Discharge Instructions Your Care Team Attending Physician - Jg Frye MD Lifetime Physician(PCP) - Carol Ruff MD Your Diagnosis PAD (peripheral artery disease) Discharge Vitals Temperature 36.5 ?C (Oral) TMIN 36.5 ?C (Oral) TMAX 36.6 ?C (Oral) Heart Rate 72 Respiratory Rate 20 Blood Pressure 98/51 Height 165.1 cm Weight 58.05 kg BMI 21.3 What to do next You May Need to Schedule the Following Appointm ents Follow Up with Sharif Frye MD, Card - Interventional When Within 1 to 3 days Where: [address] [place] [address]- We encourage you to sign up for My Portal, where you can easily access your medical records and test results from all [facility]. Please sign up in one of the following ways: 1. Email invitation. You ma y have a message in your inbox. Please click the link provided to create an account. OR 2. Request an invitation at your next clinic or hospital visit. Please ask a staff member and they will be happy to assist you. Medications What How Much When Instructions Next Dose Unchanged aspirin 81 Milligram By mouth Once da pascale 01/02/2022 at 8 am Unchanged atorvastatin 20 Milligram By mouth On ce daily 01/01/2022 at 9 pm Unchanged calcium-vitamin D (Calcium 600 +D Tab) 1 tab(s) By mouth Three times daily 01/01/2022 at 3 pm Unchanged cholecalciferol ( Vitamin D3) 125 Microgram By mouth Once daily 01/01/2022 at 9 pm Unchanged cyanocobalamin (B 12 Vitamin Supplement) 500 Microgram By mouth Once daily 01/01/2022 at 9 pm Unchanged docusate (docusat e sodium) 100 Milligram By mouth Once daily as needed for as needed for constipation Unchanged midodrine 2.5 Milligram By mouth Twic e daily 01/01/2022 at 9 pm Unchanged multivitamin with minerals (Centrum Silver Women's oral tablet) 1 tab(s) By mouth Once daily Unchanged olaparib (Lynparz a 150 mg oral tablet) 300 Milligram By mouth Twice daily 01/01/2022 at 9 pm Unchanged saccharomyces tahir lardii 250 Milligram By mouth Twice daily 01/01/2022 at 9 pm Unchanged warfarin. (warfar in) 10 Milligram By mouth Once daily DAILY EXCEPT Wednesday01/01/2022 at 9 pm Discharge Orders Discharge Orders: Discharge Today, Home or self care Education Materials Moderate Conscious Sedation, Adult, Care After This sheet gives you inform ation about how to care for yourself after your procedure. Your health care provider may also give you more specific instructions. If you have problems or questions, contact your health care provider. What can I expect after the procedure After the procedure, it is common to have: ? Sleepiness for several hours. ? Impaired judgment for several hours. ? Difficulty with balance. ? Vomiting if you eat too soon. Follow these instructions at home: For the time period you were told by your [facility] care provider: ? Rest. ? Do not participate in activities where you coul d fall or become injured. ? Do not drive or use machinery. ? Do not drink alcohol. ? Do not take sleeping pills or medicines that ca use drowsiness. ? Do not make important decisions or sign legal d ocuments. ? Do not take care of children on your own. Eating and drinking ? Follow the diet recommended by your health care provider. ? Drink enough fluid to keep your urine pale yell ow. ? If you vomit: Drink water, juice, or soup when you can drink without vomiting. Make sure you have little or no nausea before e ating solid foods. General instructions ? Take ushe-fxz-cecfurf and p rescription medicines only as told by your health care provider. ? Have a responsible adult st ay with you for the time you are told. It is important to have someone help care for you until you are awake and alert. ? Do not smoke. ? Keep all follow-up visits a s told by your health care provider. This is important. Contact a health care provider if: ? You are still sleepy or having trouble with bal ance after 24 hours. ? You feel light-headed. ? You keep feeling nauseous or you keep vomiting. ? You develop a rash. ? You have a fever. ? You have redness or swelling around the IV site . Get help right away if: ? You have trouble breathing. ? You have new-onset confusion at home. Summary ? After the procedure, it is common to feel sleepy, have impaired judgment, or feel nauseous if you eat too soon. ? Rest after you get home. Kn ow the things you should not do after the procedure. ? Follow the diet recommended by your health care provider and drink enough fluid to keep your urine pale yellow. ? Get help right away if you have trouble breathing or new-onset confusion at home. This information is not int ended to replace advice given to you by your health care provider. Make sure you discuss any questions you have with your health care provider. Document Revised: 1 Document Reviewed: 08/15/2020 [employer] Patient Education ? 2020 [employer]. [address] [address] [place] [address] SMC (Suture Medicated Closure) PERCLOSE SMC (Suture Medicated Closu re) is a procedure which prevents bleeding from the groin immediately following catheterization procedure. The SMC Device places a surgical stitch in the artery to reliably stop arterial bleeding. After your Procedure: Please talk to your doctor about limitations in your activities and how to take care of your groin area after your procedure. Here are some general guidelines after you leave the hospital: ? Inspect the site and re-a pply a clean, dry band-aid every day for 5 days or until a scab has formed at the site. ? Keep the site clean and d ry. If the bandage becomes wet, remove it and replace it with a new one. ? You may shower 24 hours a fter the procedure, but do not bathe or use a pool until the wound has completely closed (at least 5 days). Gently clean your puncture site with soap and water. ? After showering, gently p at-dry the site with a clean towel, then let the site air-dry before covering with a band-aid. A square adhesive bandage seals well. ? Limit tight fitting cloth es or underwear that may irritate the puncture site until the site has healed. ? No driving on the day of discharge. ? You may resume normal activity in 2 days: NO heavy lifting (more than 10 pounds) for a we ek. NO pushing NO vigorous activity NORMAL OBSERVATIONS: ? mild oozing from the incision site ? discomfort or soreness lasting 1 week ? some bruising lasting 2 weeks ? a small lump in your groin area lasting up to 6 weeks Please contact your doctor immediately if you experience any of the following signs and symptoms: ? Persistent tenderness or swelling at the punc ture site ? Significant pain at the puncture site or leg ? Bleeding/oozing at the puncture site ? Increasing redness, warmth, bruising or swell ing at the puncture site ? Numbness or tingling in the leg ? Drainage from the puncture site ? Non-healing wound ? Fever or chills ? Any other unusual symptoms Angiogram An angiogram is a procedure used to examine the blood vessels. In this procedure, contrast dye is injected through a long, thin tube (catheter) into an artery. X-rays are then taken, which show if there is a blockage or problem in a blood vessel. The catheter may be inserted in: ? The groin area. This is the most common. ? The fold of the arm, near the elbow. ? The wrist. Tell a health care provider about: ? Any allergies you have, inc luding allergies to medicines, shellfish, contrast dye, or iodine. ? All medicines you are takin g, including vitamins, herbs, eye drops, creams, and xhtj-ygt-nozsrnj medicines. ? Any problems you or family members have had wit h anesthetic medicines. ? Any blood disorders you have. ? Any surgeries you have had. ? Any medical conditions you have or have had, including any kidney problems or kidney failure. ? Whether you are or may be . ? Whether you are . What are the risks Generally, this is a safe procedure. However, p roblems may occur, including: ? Infection. ? Bleeding and bruising. ? Allergic reactions to medicines or dyes, includ ing the contrast dye used. ? Damage to nearby structures or organs, including damage to blood vessels and kidney damage from the contrast dye. ? Blood clots that can lead to a stroke or heart attack. What happens before the procedure Staying hydrated Follow instructions from [facility] health care provider about hydration, which may include: ? Up to 2 hours before the pr ocedure ? you may continue to drink clear liquids, such as water, clear fruit juice, black coffee, and plain tea. Eating and drinking restrictions Follow instructions from [facility] health care provider about eating and drinking, which may include: ? 8 hours before the procedur e ? stop eating heavy meals or foods, such as meat, fried foods, or fatty foods. ? 6 hours before the procedur e ? stop eating light meals or foods, such as toast or cereal. ? 2 hours before the procedure ? stop drinking cl ear liquids. Medicines Ask your health care provider about: ? Changing or stopping your r egular medicines. This is especially important if you are taking diabetes medicines or blood thinners. ? Taking medicines such as as pirin and ibuprofen. These medicines can thin your blood. Do not take these medicines unless your health care provider tells you to take them. ? Taking xfuw-xnw-kktpdzi medicines, vitamins, he rbs, and supplements. Surgery safety Ask your health care provider: ? How your insertion site will be marked. ? What steps will be taken to help prevent infect ion. These may include: Removing hair at the insertion site. Washing skin with a germ-killing soap. Taking antibiotic medicine. General instructions ? Do not use any products tarik t contain nicotine or tobacco for at least 4 weeks before the procedure. These products include cigarettes, e-cigarettes, and chewing tobacco. If you need help quitting, ask your health care provider. ? You may have blood samples taken. ? Plan to have someone take you home from the [facility] or clinic. ? If you will be going home r ight after the procedure, plan to have someone with you for 24 hours. What happens during the procedure ? You will lie on your back o n an X-ray table. You may be strapped to the table if it is tilted. ? An IV will be inserted into one of your veins. ? Electrodes may be placed on your chest to monitor your heart rate during the procedure. ? You will be given one or both of the following: A medicine to help you relax (sedative). A medicine to numb the area where the catheter will be inserted (local anesthetic). ? A small incision will be made for catheter inse rtion. ? The catheter will be insert ed into an artery using a guide wire. An X-ray procedure (fluoroscopy) will be used to help guide the catheter to the blood vessel to be examined. ? A contrast dye will then be injected into the catheter, and X-rays will be taken. The contrast will help to show where any narrowing or blockages are located in the blood vessels. You may feel flushed as the contrast dye is injected. ? Tell your health care provi aruna if you develop chest pain or trouble breathing. ? After the fluoroscopy is complete, the catheter will be removed. ? A bandage (dressing) will b e placed over the site where the catheter was inserted. Pressure will be applied to help stop any bleeding. ? The IV will be removed. The procedure may vary among health care provid ers and hospitals. What happens after the procedure ? Your blood pressure, heart rate, breathing rate, and blood oxygen level will be monitored until you leave the hospital or clinic. ? You will be kept in bed lyi ng flat for 6 hours. If the catheter was inserted through your leg, you will be instructed not to bend or cross your legs. ? The insertion area and the pulse in your feet or wrist will be checked frequently. ? You will be instructed to d rink plenty of fluids. This will help wash the contrast dye out of your body. ? You may have more blood marcelle ts and X-rays. You may also have a test that records the electrical activity of your heart (electrocardiogram, or ECG). ? Do not drive for 24 hours if you were g iven a sedative during your procedure. ? It is up to you to get the results of your procedure. Ask your health care provider, or the department that is doing the procedure, when your results will be ready. Summary ? An angiogram is a procedure used to examine the blood vessels. ? Before the procedure, citlali w your health care provider's instructions about eating and drinking restrictions. You may be asked to stop eating and drinking several hours before the procedure. ? During the procedure, contr ast dye is injected through a thin tube (catheter) into an artery. X-rays are then taken. ? After the procedure, you wi ll need to drink plenty of fluids and lie flat for 6 hour. This information is not int ended to replace advice given to you by your health care provider. Make sure you discuss any questions you have with your health care provider. Document Revised: 0 Document Reviewed: 04/03/2020 [employer] Patient Education ? 2020 [employer]. [address] [place] [address] Admission Orientation Welcome to [facility]. You are a very important part of your care. While you are here, we will work together to get you ready for discharge and teach you how to care for yourself when you are discharged. We will explain what to expect before, during and after your treatments and procedures. You will also be receiving education specific to your disease and treatments. Please let us know if you have questions or concerns. Here are some important thi ngs that everyone needs to know about upon admission to our unit: CALL LIGHT The call light is located o n the TV Remote Control and also on each of the side rails of your bed. ? Use the call light to nilo l your nurse when you have a question, concern, need help or need pain medication. ? There is also an Emergenc y Call Light in the Bathroom next to the toilet that you should use if you need help or assistance. You may also call the nurse caring for you directly. The phone number is written on the white board in your room. BED CONTROLS The bed controls are locate d on each of the upper side rails of your bed. You can move your head and feet up or down to make yourself more comfortable. Push the up or down arrow with the picture of the head to raise or lower the position of the head. Push the up or down arrow with the picture of the foot to raise or lower the position of the foot of the bed. While in the hospital, REMEMBER to change your position frequently to keep your skin healt hy. TELEPHONE The telephone is located on the nightstand next to your bed. You must first dial '9' and then the number you wish to call. If you need to make a long distance call, you must dial ?[id number] for the hospital bin operator to assist you. TELEVISION The TV controls are also lo cated on the TV Remote Control. To turn it on, change channels or turn it off, press the button with the TV on it or the green on/off button. Use the up and down arrows to change the volume. VISITING HOURS We understand you want to v isit your loved ones when it is convenient for you. ? The hospital is open to visitors 24 hours a d ay, 7 days a week. ? In the Intensive Care [facility], patient?s health information is discussed by the healthcare team from 10:00 AM to 11:00 AM; visitors must stay in the patient rooms with doors closed due to privacy issues. ? Family members wishing to be with the patient throughout the night may sleep in the room except in the Intensive Care Units. ? In the Intensive Care Uni , family members wishing to be with the patient throughout the night are asked to sleep in the waiting room and check on the patient through the night. Speak to the patient's nurse for more information. ? During cold and flu season, we restrict visit ors as needed. RAISING CONCERNS/COMPLAINTS REGARDING YOUR CARE OR SAFETY You and your family are enc ouraged to raise concerns or complaints if you have them. Exercising the right to do this will not affect your healthcare services in any way. ? If at anytime you have co ncerns about patient care or safety, please speak to the echo vasc tech or [employer] Specialist. ? If they are unable to res olve your concern/complaint, you can call the Customer Communication line at [phone]. ? If your concerns are not satisfactorily resolved through the hospital, you may contact the Joint Commission or the Department of Health Services: The Joint Commission: Call or email: [place] Dept of Health Services: [address] [place] [address] Website: https://rafi.[employer].gov/ls/online_compla int/MEDComplaint.aspx FAMILY RAPID RESPONSE is a lifeline to immediate help when a patient or loved one feels the patients condition has worsened and immediate medical attention is needed. Dial [phone] from any hospital phone. PREVENTING INFECTION Five things you can do to p revent infection (such as colds, flu and strep throat). A 'Speak Up' safety initiative by Joint Commission on Accreditation of Healthcare Organizations 1. Clean your hands. ? Use soap and warm water. Wet hands and apply soap. Rub your hands really well for at least 15 seconds. Rinse and dry. Use paper towel to turn water off. ? Or, if your hands do not look dirty, clean them with alcohol-based hand sanitizers. Rub the documentation liaison all over your hands, especially under your nails and between your fingers, until your hands are dry. Children should be supervised whe n using this product. ? Clean your hands before t ouching or eating food. Clean them after you use the bathroom, take out the trash, change a diaper, visit someone who is ill, or play with a pet. Visitors and fami ly members of patients shoul d wash/clean their hands before entering the room to visit and any time they leave the room. 2. Make sure health care providers clean their hands and wear gloves. ? Doctors, nurses, dentists and other health care providers come into contact with lots of bacteria and viruses. So before they treat you, ask them if they've cleaned their hands. ? Health care providers estuardo uld wear clean gloves when they perform tasks such as taking throat cultures, pulling teeth, taking blood, touching wounds or body fluids, and examining your priva te parts. Don't be afraid to gently remind them to wear gloves. 3. In the hospital, health care workers use ?barriers? like gloves to protect the patients and themselves. ? While in the hospital a p atient may have a specific germ that can be spread to others. These germs can be viruses or bacteria that cause illness. ? Some diseases and/or cond itions require the use of additional barriers, like gowns and/or masks and Isolation Precautions. ? Comply with additional isolation precautions. ? Signs are posted on/at pa tient doors when additional precautions are needed. ? All patients, visitors an d staff are asked to follow the instructions posted on/at the patient door. ? Please ask your nurse if you have additional questions. ? Patients and families in isolation should not use the common kitchen area, but should ask health care workers for items that they need. 4. Cover your mouth and nos e. Many diseases are spread through sneezes and coughs. When you sneeze or cough, the germs can travel 3 feet or more! Cover your mouth and nose to prevent the spread of infection to others. ? Use a tissue! Keep tissue s handy at home, at work and in your pocket. Be sure to throw away used tissues and then clean your hands. ? If you don't have a tissu e, cover your mouth and nose with the bend of your elbow or hands. If you use your hands, wash/clean them right away. 5. If you are sick, avoid close contact. ? If you are sick, stay bonita y from other people. Stay home if you have a fever. Call work or school and tell them you are sick. ? When you go for medical t reatment, call ahead and ask if there's anything you can do to avoid infecting people in the waiting room. These steps can help preven t the spread of colds, the flu, and diseases like pneumonia, and strep throat. Remember to stay current on your immunizations. Fall Prevention Guidelines for Patient and Fami ly As a patient in the [facility], your condition and the treatments you receive can increase your risk for falls. Our desire is to minimize any fall risk for patients. It is important that you learn how to decrease fall risks during your stay at the hospital. Let your caregiver know if you have a history of falls or any conditions that make you feel weak, unsteady or light-headed. Also, let your caregive r know if you have any probl ems with your vision, or need to put on your glasses before getting up. FALLS MAY OCCUR IN THE HOSPITAL BECAUSE . . . ? Medications such as tranq uilizers, sleeping pills, pain relievers, blood pressure pills, water pills and insulin, among others, all may make you dizzy, dazed and/or confused. ? Your illness, enemas, lax atives, long periods without food, tests or surgery may leave you weak and unsteady. ? You may have to use the restroom more than us ual while in the hospital. ? Lying down in bed for tod g periods of time can cause you to be dizzy and unsteady when you first get up. ? Your treatment requires m edical equipment with electrical cords and tubing, all of which can cause you to get tangled or to trip. ? The hospital is a new and unfamiliar environment for you. This is worse at night. Falls can cause serious inj uries and often can be prevented if fall precautions are observed. If we think you are at a risk for falls, we may place a fall risk band on your wrist. This band immediately alerts all staff that you a re at a risk for falls. That way, they can work with you to take steps to prevent you from experiencing a fall. We may also place a sign in your room notifying your healthcar e team that you have a condi tion or a past history that increases your risk of falls. If you are at high risk of a fall, or have had a fall before, we may put a bed alarm or ringer on your bed to notify your caregiver when you are getting up so that they can come and assist you. Patients with a fall history may also be given hip protectors and/or helmets to prevent fall injuries. Below are the most important steps you can take to prevent a fall: SAFETY GUIDELINES FOR PREVENTING FALLS ? Your caregiver will tell you if it is safe for you to get out of bed by yourself or if you should always call for help before getting out of bed. Your caregiver may also offer to assist yo u in getting safely to the toilet whenever he/sh e is in your room. ? Call for help if you feel dizzy or weak before getting out of bed. This is usually worse after sitting or lying for long periods. If you must get up without waiting for help, sit up in bed awhile before standing. The n get up carefully, and slowly begin to walk. If you feel dizzy or unsure of your footing, return to bed and wait for assistance. ? Generally, you should rem ain lying or seated, rather than standing, while waiting for help. Be patient; someone will come to assist you as soon as possible. ? Wear rubber-soled or crep e-soled slippers or shoes whenever you walk in the hospital. Check with your caregiver if you do not have any. A mat may be placed on the floor next to your bed to reduce the chance of slipping on the floor. ? Do not remove restraints or tamper with side rails that may be in use. Side rails and restraints are reminders to stay in bed and are used to keep you safe. ? When you need help, use y our call light by your bed or in the bathroom. Wait for one of your caregivers to help you. ? Walk slowly and carefully when out of bed. Do not lean or support yourself on rolling objects such as intravenous poles or bedside tables. ? Ask your caregiver for he lp if your telephone, bedside table or call light are not within your easy reach. Falls can occur when reaching from bed and not just getting up. ? Ask your caregiver to put the side rails of your bed up to prevent you from accidentally rolling out of bed. ? If you use a walker, be s ure that it is placed right beside your bed before your caregiver leaves your room. ? If you do not feel you ar e strong enough to safely make it to the bathroom, ask your caregiver for a bedside commode instead. ? Let your caregiver know if there is a spill o n the floor. ? If your caregiver determi jen you can get out of bed by yourself safely, always pay careful attention to the medical equipment, electrical cords and tubes around you. If you cannot get by the equipment, call your caregiver for assistance. ? Always turn on the light at nighttime before getting out of bed. ? When getting up from and into bed, avoid being distracted by the TV, telephone, or another person in your room. ? ? Falls often occur when a person is distracted when moving from the bed or around their room. A SPECIAL NOTE FOR FAMILY MEMBERS AND FRIENDS Hospital staff members mckayla ot remain constantly at a patient's side. If necessary, make arrangements for a private-duty nurse, family member, or sitter to stay with your loved one. You may ask your caregivers if they hav e suggestions for times when a sitter would be most beneficial to the patient's comfort or peace of mind. Pain Management Pain is a sensation that hu rts. It can be described as stabbing, pinching or aching, causing discomfort, distress or agony. It may be steady or it may come and go. Pain may be acute or chronic. Acute p ain, such as the pain caused by surgery may, at times, be very painful, but will gradually lessen as the body heals. Chronic pain, such as pain caused by arthritis or cancer, may be less painful but may last for long periods of time. When you are injured, pain warns you to protect yourself and to avoid further injury. However, when your pain is unrelieved it can be harmful, especially when you are sick or after surgery. Pain can ma ke it difficult to take a de ep breath and may interfere with your ability to move and walk. It is important to know that with the treatments available today, most pain can be well controlled no matter t he type and the amount of pa in you feel. When your pain is well controlled, you can be more active, sleep better, eat better, and feel great. If you are recovering from surgery, controlling your pain can help you get well faster. Do the following: Be familiar with the pain s alethea. A pain scale is a number scale to measure your pain. A rating of 0 means you feel no pain at all, 5 means you feel a moderate amount of pain, and 10 means you feel the worst pain you can imagine. Your nurse or physician will teach you to describe the type and amount of pain you are having. 0 1 2 3 4 5 6 7 8 9 10 No Moderate Worst Pain Pain Pain If you know your pain may w orsen with an activity, take pain medicine first to prevent the pain. If pain does occur, don?t wait for it to get worse before asking for pain medicine. The best time to manage pain is when it first starts. Report any changes in pain or new pain to your physician or nurse. If you have any concerns ab out addiction, talk to your doctor or nurse. Drug addiction is very rare in a person who is taking pain medicine for pain management. Taking pain medicine for pain management is not the same thing as addiction. Report the following side effects to your nurse or physician: ? Itching - Itching is not an allergic reaction but a fairly common side effect of pain medicine. Ask the nurse for medicine to relieve the itching when necessary. ? Nausea - Nausea can occur from pain medicine, and it can also be treated with medicine. ? Constipation - Pain medic ine slows the bowel and can cause constipation. If your condition allows, the nurse will give you medicine to prevent constipation. ? Excessive drowsiness and respiratory depression - These are the most serious but least common side effects of pain medicine. Less than 1% of patients experience these effects. These two si de effects develop slowly. N urses will be checking your sedation and breathing frequently. If detected, both are easily treated and corrected by decreasing the dose of pain medicine. Talk to your doctor or nurse if: ? You are experiencing pain ? You have questions about controlling your zandra n ? You have taken pain medicine and it is not wo rking At [facility], we will work with you and your family to manage your pain. We believe that managing your pain is an important part of your care. PREVENTING BLOOD CLOTS AND VENOUS THOMBOEMBOLIS M (VTE) What is thromboembolism Blood flow is slower when t he body is not active. This can cause clots to form in the blood. A blood clot in a blood vessel is called a thrombus. If the clot breaks loose and plugs another vessel, it i s called thromboembolism. Th e blood clot can cause permanent injury to your body if it is not treated. Deep vein thrombosis (DVT) is a blood clot in one of the deep veins of the body, such as the leg or pelvis. This kind of clot can occur after surgery or long periods of bed rest. What are the signs and symptoms of deep vein th rombosis ? Pain felt deep in the leg ? Swelling and discoloration of the skin ? Sudden onset of pain ? Fever Pulmonary embolism (PE) is a serious condition where the arteries from the heart to the lungs are blocked. This happens when a blood clot travels to the lungs. Pulmonary embolism can be deadly, but michaelle ck treatment with anti-clott ing medications can reduce the risk of . Preventing blood clots in your legs can help protect you against pulmonary embolism. What are the signs and symptoms of pulmonary em bolism ? Chest pain: May get worse with deep breathing, coughing, eating, and bending. ? Cough: Begins suddenly, may cough up blood or blood-streaked sputum ? Rapid breathing ? Rapid heart rate ? Shortness of breath, may occur at rest or dur ing activity, starts suddenly Why is prevention important Preventing clots is easier than treating them after they have happened. A blood clot can break off from the deep vein and travel to the lungs or other important organs. A blood clot can block blood flow to the tissues and ulcers or sores can result. How are deep vein thrombosis (DVT) and pulmonar y embolus (PE) prevented ? Wear compression stocking s (JOSE A hose) if your doctor recommends them. These keep blood from pooling in your veins. ? Wear a sleeve-like device on your legs (SCDs) after surgery to squeeze your legs and keep blood flowing through your veins. The squeezing motion is similar to how your muscles squeeze your veins during normal walking. ? Elevate the foot of your bed. ? Get up and move as soon a s you can after surgery, or after you've been ill. The quicker you get moving, the less likely blood clots will develop. ? Take pain medicine as prescribed to make it e asier to move around. ? If you're having surgery, such as orthopedic surgery, you may be given blood thinners or anticoagulant (anti-clotting) medicines. These medicines make the blood less able to clot and are sometimes called ?bl ood thinners?. They can block the formation of new clots and stop existing clots from getting bigger. ? Exercise your muscles if you'll be sitting a long time. Whenever possible, get up and walk around. If you can't get up to walk around, try to exercise the feet by flexing, extending and rotating the foot. ? Make lifestyle changes. L ose weight, quit smoking and control your blood pressure. Obesity, smoking and high blood pressure all increase your risk of deep vein thrombosis. ? Limit the amount of salt you eat. Eat a high protein, low fat diet. ? Do not wear constrictive clothing or stocking s Call your doctor if you have: ? Pain in the leg ? Tenderness in the calf (this is one of the mo st important signs) ? Swelling of the leg ? Increased warmth of the leg ? Redness in the leg ? Bluish skin discoloration ? Discomfort when the foot is pulled upward ? Chest pain and/or cough ? Rapid breathing ? Rapid heart rate ? Shortness of breath FROM THE SOIL SURVEYOR Spiritual Care Services providing emotional and spiritual support At [facility], we are c ommitted to providing comprehensive care by embracing the whole person in body, mind and spirit. Board certified chaplains are available Wednesday - Wednesday 8 a.m.- 10:30 p.m. an d s 8 a.m. ? 4:30 p.m . to all patients and their families to offer support across a wide array of diverse tracie traditions. Call Spiritual Care Services ? To help you cope with feelings associated wit h diagnosis and treatment ? If you find yourself asking ?why? questions ? For Sacramental needs, ritual and prayer ? For grief and bereavement counseling ? If you have discovered new possibilities in y our life ? During time of /loss ? When you are struggling with forgiveness ? To coordinate and collaborate with your tracie leader ? To assist in decision making ? To assist with advanced health care planning To contact a marketing information analyst, ask your nurse to call Spiritual Care Services Department: Story Teller: [phone] Director: [phone] We?re here to support your tracie, beliefs and v alues. STROKE/TIA(TRANSISCHEMIC ATTACK) INFORMATION If you have been diagnosed with a Stroke or TIA : 1. Call 911 immediately if you experience signs or symptoms of stroke as: ? Sudden weakness or numbne ss of face, arms and leg usually on one side of the body. ? Loss of vision, particularly in only one eye. ? Sudden severe headache with no known cause. ? Sudden trouble walking, d izziness, loss of balance or coordination, slurred speech. 2. Risk factors for stroke: ? Age: The older you get the more likely you ar e to have a stroke. ? Sex: and [place]ese [place] me n have a higher risk. ? Prior Stroke: Already hav ing a stroke makes you more likely to have another. ? Family history: Family (p arent, grandparents, brother, sister) with a history of stroke increases your risk. ? You can control, treat or prevent some conditions to reduce your likelihood of stroke. High blood pressure, cigarette smoking, high cholesterol, Lack of regular physical activity, overweight, diabetes are all risk factors that can be changed. Cigarette Smoking Do you or someone you live with smoke If so, this is one of your greatest health risk! This is a risk that you can control. The facts are clear that cigarette smoking will shorten your life. Smoking ca n cause many illnesses along the way. If you or someone you live with need help to quit smoking, talk to your regular doctor. Please contact one or more of the following agencies for smoking-cessation information or classes: ? [facility] Tobacco U se Prevention Program- Telephone number: (431)-390-3072 ? [place] Smokers' Helpline :354.111.8929 or access via website: WWW.[employer].ORG ? [place] [employer] Telephone number: ? [place] Telephone Number: Medication Education Clothes at Bedside: Pants, Shirt, Slippers Clothes Sent Home: Pants, Shirt, Slippers Electronics at Bedside: Cell phone Electronics Sent Home: Cell phone Jewelry at Bedside: Earring(s) Jewelry Sent Home: Earring(s) Miscellaneous Items at Bedside: None Miscellaneous Items Sent Home: None Personal Devices at Bedside: Dentures, lower, D entures, upper Personal Devices Sent Home: Dentures, lower, De ntures, upper I understand that [facility] not [facility] for any personal belongings/effects or valuables that have not been identified on the valuables and belongings list. Any personal effects brought int o the facility and not recor ded on the valuables and belongings form are the responsibility of the patient/family/significant other.I have received the indicated patient education materials/instructions and medication list and have verbalized underst anding. 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 [address] JOSEPH VALDIVIA :1940 (EV) Visit Date:01/01/2022 Inpatient Discharge Instructions Your Care Team Attending Physician - Jg Frye MD Lifetime Physician(PCP) - Carol Ruff MD Your Diagnosis PAD (peripheral artery disease) Discharge Vitals Temperature 36.5 ?C (Oral) TMIN 36.5 ?C (Oral) TMAX 36.6 ?C (Oral) Heart Rate 86 Respiratory Rate 20 Blood Pressure 99/53 Height 165.1 cm Weight 58.05 kg BMI 21.3 What to do next You May Need to Schedule the Following Appointme nts Follow Up with Sharif Frye MD, Card - Interventional When Within 1 to 3 days Where: [address] [place] [address]- We encourage you to sign up for My Portal, where you can easily access your medical records and test results from all [facility]. Please sign up in one of the following ways: 1. Email invitation. You may have a message in your inbox. Please click the link provided to create an account. OR 2. Request an invitation at your next clinic or hospital visit. Please ask a staff member and they will be happy to assist you. Medications What How Much When Instructions Next Dose Unchanged aspirin 81 Milligram By mouth Once da pascale Unchanged atorvastatin 20 Milligram By mouth On ce daily Unchanged calcium-vitamin D (Calcium 600 +D Tab) 1 tab(s) By mouth Three times daily Unchanged cholecalciferol (Vitamin D3) 125 Micr ogram By mouth Once daily Unchanged cyanocobalamin (B 12 Vitamin Supplement) 500 Microgram By mouth Once daily Unchanged docusate (docusat e sodium) 100 Milligram By mouth Once daily as needed for as needed for constipation Unchanged midodrine 2.5 Milligram By mouth Twic e daily Unchanged multivitamin with minerals (Centrum Silver Women's oral tablet) 1 tab(s) By mouth Once daily Unchanged olaparib (Lynparz a 150 mg oral tablet) 300 Milligram By mouth Twice daily Unchanged saccharomyces boulardii 250 Milligram By mouth Twice daily Unchanged warfarin. (warfar in) 10 Milligram By mouth Once daily DAILY EXCEPT WEDNESDAY Discharge Orders Discharge Orders: Discharge Today, Home or self care Education Materials Moderate Conscious Sedation, Adult, Care After This sheet gives you inform ation about how to care for yourself after your procedure. Your health care provider may also give you more specific instructions. If you have problems or questions, contact your health care provider. What can I expect after the procedure After the procedure, it is common to have: ? Sleepiness for several hours. ? Impaired judgment for several hours. ? Difficulty with balance. ? Vomiting if you eat too soon. Follow these instructions at home: For the time period you were told by your [facility] care provider: ? Rest. ? Do not participate in activities where you coul d fall or become injured. ? Do not drive or use machinery. ? Do not drink alcohol. ? Do not take sleeping pills or medicines that ca use drowsiness. ? Do not make important decisions or sign legal d ocuments. ? Do not take care of children on your own. Eating and drinking ? Follow the diet recommended by your health care provider. ? Drink enough fluid to keep your urine pale yell ow. ? If you vomit: Drink water, juice, or soup when you can drink without vomiting. Make sure you have little or no nausea before e ating solid foods. General instructions ? Take yhfz-cax-haeiaej and p rescription medicines only as told by your health care provider. ? Have a responsible adult st ay with you for the time you are told. It is important to have someone help care for you until you are awake and alert. ? Do not smoke. ? Keep all follow-up visits a s told by your health care provider. This is important. Contact a health care provider if: ? You are still sleepy or having trouble with bal ance after 24 hours. ? You feel light-headed. ? You keep feeling nauseous or you keep vomiting. ? You develop a rash. ? You have a fever. ? You have redness or swelling around the IV site . Get help right away if: ? You have trouble breathing. ? You have new-onset confusion at home. Summary ? After the procedure, it is common to feel sleepy, have impaired judgment, or feel nauseous if you eat too soon. ? Rest after you get home. Kn ow the things you should not do after the procedure. ? Follow the diet recommended by your health care provider and drink enough fluid to keep your urine pale yellow. ? Get help right away if you have trouble breathing or new-onset confusion at home. This information is not int ended to replace advice given to you by your health care provider. Make sure you discuss any questions you have with your health care provider. Document Revised: Document Reviewed: 08/15/2020 [employer] Patient Education ? 2020 [employer]. [address] [address] [place] [address] SMC (Suture Medicated Closure) PERCLOSE SMC (Suture Medicated Closu re) is a procedure which prevents bleeding from the groin immediately following catheterization procedure. The SMC Device places a surgical stitch in the artery to reliably stop arterial bleeding. After your Procedure: Please talk to your doctor about limitations in your activities and how to take care of your groin area after your procedure. Here are some general guidelines after you leave the hospital: ? Inspect the site and re-a pply a clean, dry band-aid every day for 5 days or until a scab has formed at the site. ? Keep the site clean and d ry. If the bandage becomes wet, remove it and replace it with a new one. ? You may shower 24 hours a fter the procedure, but do not bathe or use a pool until the wound has completely closed (at least 5 days). Gently clean your puncture site with soap and water. ? After showering, gently p at-dry the site with a clean towel, then let the site air-dry before covering with a band-aid. A square adhesive bandage seals well. ? Limit tight fitting cloth es or underwear that may irritate the puncture site until the site has healed. ? No driving on the day of discharge. ? You may resume normal activity in 2 days: NO heavy lifting (more than 10 pounds) for a we ek. NO pushing NO vigorous activity NORMAL OBSERVATIONS: ? mild oozing from the incision site ? discomfort or soreness lasting 1 week ? some bruising lasting 2 weeks ? a small lump in your groin area lasting up to 6 weeks Please contact your doctor immediately if you experience any of the following signs and symptoms: ? Persistent tenderness or swelling at the punc ture site ? Significant pain at the puncture site or leg ? Bleeding/oozing at the puncture site ? Increasing redness, warmth, bruising or swell ing at the puncture site ? Numbness or tingling in the leg ? Drainage from the puncture site ? Non-healing wound ? Fever or chills ? Any other unusual symptoms Angiogram An angiogram is a procedure used to examine the blood vessels. In this procedure, contrast dye is injected through a long, thin tube (catheter) into an artery. X-rays are then taken, which show if there is a blockage or problem in a blood vessel. The catheter may be inserted in: ? The groin area. This is the most common. ? The fold of the arm, near the elbow. ? The wrist. Tell a health care provider about: ? Any allergies you have, inc luding allergies to medicines, shellfish, contrast dye, or iodine. ? All medicines you are takin g, including vitamins, herbs, eye drops, creams, and jldd-jqm-xfkctne medicines. ? Any problems you or family members have had wit h anesthetic medicines. ? Any blood disorders you have. ? Any surgeries you have had. ? Any medical conditions you have or have had, including any kidney problems or kidney failure. ? Whether you are or may be . ? Whether you are . What are the risks Generally, this is a safe procedure. However, p roblems may occur, including: ? Infection. ? Bleeding and bruising. ? Allergic reactions to medicines or dyes, includ ing the contrast dye used. ? Damage to nearby structures or organs, including damage to blood vessels and kidney damage from the contrast dye. ? Blood clots that can lead to a stroke or heart attack. What happens before the procedure Staying hydrated Follow instructions from yo health care provider about hydration, which may include: ? Up to 2 hours before the pr ocedure ? you may continue to drink clear liquids, such as water, clear fruit juice, black coffee, and plain tea. Eating and drinking restrictions Follow instructions from yo ur health care provider about eating and drinking, which may include: ? 8 hours before the procedur e ? stop eating heavy meals or foods, such as meat, fried foods, or fatty foods. ? 6 hours before the procedur e ? stop eating light meals or foods, such as toast or cereal. ? 2 hours before the procedure ? stop drinking cl ear liquids. Medicines Ask your health care provider about: ? Changing or stopping your r egular medicines. This is especially important if you are taking diabetes medicines or blood thinners. ? Taking medicines such as as pirin and ibuprofen. These medicines can thin your blood. Do not take these medicines unless your health care provider tells you to take them. ? Taking kpat-kco-jskykcq medicines, vitamins, he rbs, and supplements. Surgery safety Ask your health care provider: ? How your insertion site will be marked. ? What steps will be taken to help prevent infect ion. These may include: Removing hair at the insertion site. Washing skin with a germ-killing soap. Taking antibiotic medicine. General instructions ? Do not use any products tarik t contain nicotine or tobacco for at least 4 weeks before the procedure. These products include cigarettes, e-cigarettes, and chewing tobacco. If you need help quitting, ask your health care provider. ? You may have blood samples taken. ? Plan to have someone take you home from the [facility] or clinic. ? If you will be going home r ight after the procedure, plan to have someone with you for 24 hours. What happens during the procedure ? You will lie on your back o n an X-ray table. You may be strapped to the table if it is tilted. ? An IV will be inserted into one of your veins. ? Electrodes may be placed on your chest to monitor your heart rate during the procedure. ? You will be given one or both of the following: A medicine to help you relax (sedative). A medicine to numb the area where the catheter will be inserted (local anesthetic). ? A small incision will be made for catheter inse rtion. ? The catheter will be insert ed into an artery using a guide wire. An X-ray procedure (fluoroscopy) will be used to help guide the catheter to the blood vessel to be examined. ? A contrast dye will then be injected into the catheter, and X-rays will be taken. The contrast will help to show where any narrowing or blockages are located in the blood vessels. You may feel flushed as the contrast dye is injected. ? Tell your health care provi aruna if you develop chest pain or trouble breathing. ? After the fluoroscopy is complete, the catheter will be removed. ? A bandage (dressing) will b e placed over the site where the catheter was inserted. Pressure will be applied to help stop any bleeding. ? The IV will be removed. The procedure may vary among health care provid ers and hospitals. What happens after the procedure ? Your blood pressure, heart rate, breathing rate, and blood oxygen level will be monitored until you leave the hospital or clinic. ? You will be kept in bed lyi ng flat for 6 hours. If the catheter was inserted through your leg, you will be instructed not to bend or cross your legs. ? The insertion area and the pulse in your feet or wrist will be checked frequently. ? You will be instructed to d rink plenty of fluids. This will help wash the contrast dye out of your body. ? You may have more blood marcelle ts and X-rays. You may also have a test that records the electrical activity of your heart (electrocardiogram, or ECG). ? Do not drive for 24 hours if you were g iven a sedative during your procedure. ? It is up to you to get the results of your procedure. Ask your health care provider, or the department that is doing the procedure, when your results will be ready. Summary ? An angiogram is a procedure used to examine the blood vessels. ? Before the procedure, citlali w your health care provider's instructions about eating and drinking restrictions. You may be asked to stop eating and drinking several hours before the procedure. ? During the procedure, contr ast dye is injected through a thin tube (catheter) into an artery. X-rays are then taken. ? After the procedure, you wi ll need to drink plenty of fluids and lie flat for 6 hour. This information is not int ended to replace advice given to you by your health care provider. Make sure you discuss any questions you have with your health care provider. Document Revised: 0 Document Reviewed: 04/03/2020 Elsevier Patient Education ? 2020 [employer] Clothes at Bedside: Pants, Shirt, Slippers Clothes Sent Home: Pants, Shirt, Slippers Electronics at Bedside: Cell phone Electronics Sent Home: Cell phone Jewelry at Bedside: Earring(s) Jewelry Sent Home: Earring(s) Miscellaneous Items at Bedside: None Miscellaneous Items Sent Home: None Personal Devices at Bedside: Dentures, lower, D entures, upper Personal Devices Sent Home: Dentures, lower, De ntures, upper I understand that [facility] is not responsible for any personal belongings/effects or valuables that have not been identified on the valuables and belongings list. Any personal effects brought into the facility and not record ed on the valuables and belongings form are the responsibility of the patient/family/significant other.I have received the indicated patient education materials/instructions and medication list and have verbalized understa nding. 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 [facility] [place] [address] JOSEPH VALDIVIA :1940 (EV) Visit Date:01/01/2022 Inpatient Discharge Instructions Your Care Team Attending Physician - Jg Frye MD Lifetime Physician(PCP) - Carol Ruff MD Your Diagnosis PAD (peripheral artery disease) What to do next You May Need to Schedule the Following Appointm ents Follow Up with Sharif Frye MD, Card - Interventional When Within 1 to 3 days Where: [address] [place] [address]- We encourage you to sign up for My Portal, where you can easily access your medical records and test results from all [facility]. Please sign up in one of the following ways: 1. Email invitation. You ma y have a message in your inbox. Please click the link provided to create an account. OR 2. Request an invitation at your next clinic or hospital visit. Please ask a staff member and they will be happy to assist you. Medications What How Much When Instructions Next Dose Unchanged aspirin 81 Milligram By mouth Once da pascale 01/02/2022 at 8 am Unchanged atorvastatin 20 Milligram By mouth On ce daily 01/01/2022 at 9 pm Unchanged calcium-vitamin D (Calcium 600 +D Tab) 1 tab(s) By mouth Three times daily 01/01/2022 at 3 pm Unchanged cholecalciferol ( Vitamin D3) 125 Microgram By mouth Once daily at 9 pm Unchanged cyanocobalamin (B 12 Vitamin Supplement) 500 Microgram By mouth Once daily 01/01/2022 at 9 pm Unchanged docusate (docusat e sodium) 100 Milligram By mouth Once daily as needed for as needed for constipation Unchanged midodrine 2.5 Milligram By mouth Twic e daily 01/01/2022 at 9 pm Unchanged multivitamin with minerals (Centrum Silver Women's oral tablet) 1 tab(s) By mouth Once daily 01/01/2022 at 9 pm Unchanged olaparib (Lynparz a 150 mg oral tablet) 300 Milligram By mouth Twice daily 01/01/2022 at 9 pm Unchanged saccharomyces tahir lardii 250 Milligram By mouth Twice daily 01/01/2022 at 9 pm Unchanged warfarin. (warfar in) 10 Milligram By mouth Once daily DAILY EXCEPT Wednesday01/01/2022 at 9 pm Discharge Orders Discharge Orders: Discharge Today, Home or self care Medication Education Clothes at Bedside: Pants, Shirt, Slippers Clothes Sent Home: Pants, Shirt, Slippers Electronics at Bedside: Cell phone Electronics Sent Home: Cell phone Jewelry at Bedside: Earring(s) Jewelry Sent Home: Earring(s) Miscellaneous Items at Bedside: None Miscellaneous Items Sent Home: None Personal Devices at Bedside: Dentures, lower, D entures, upper Personal Devices Sent Home: Dentures, lower, De ntures, upper I understand that [facility] is not responsible for any personal belongings/effects or valuables that have not been identified on the valuables and belongings list. Any personal effects brought int o the facility and not recor ded on the valuables and belongings form are the responsibility of the patient/family/significant other.I have received the indicated patient education materials/instructions and medication list and have verbalized underst anding. 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 Signature: Relationship to Patient: Witness Signature: Date/Time: [facility] [place] [place] [facility] [address] [place] [address] Patient Discharge Instructions Name: JOSEPH VALDIVIA Current Date: 01/01/2022 11:44:03 : 1940 (EV) [facility]: [id number] Patient Address: [address] [place] [address] Patient Primary Care Provider Name: Carol Ruff MD Phone: [phone] Reason for Visit: Discharge Diagnosis: 1:PAD (peripheral artery disease) [facility] nter would like to thank you for allowing us to assist with your healthcare needs. Advance Directive: POLST Tracking: In EMR Patient has an Advance Directive: At home Follow-up Instructions: With: Address: When: Jg Frye MD, Card - Interventional [address] [place] [address] Within 1 to 3 days No Prescheduled Appointments Found Immunizations No Immunizations Documented This Visit Additional Patient Instructions: No qualifying d layton available Comment: Medication Information: Continue Home Meds Other Medications aspirin 81 Milligram By mouth once daily. Last Dose Given: Next Dose Du e: atorvastatin 20 Milligram By mouth once daily. Last Dose Given: Next Dose Du e: calcium-vitamin D (Calcium 600 +D Tab) 1 tab(s) By mouth three times daily. Last Dose Given: Next Dose Du e: cholecalciferol (Vitamin D3) 125 Microgram By mo uth once daily. Last Dose Given: Next Dose Du e: cyanocobalamin (B12 Vitamin Supplement) 500 Micr ogram By mouth once daily. Last Dose Given: Next Dose Du e: docusate (docusate sodium) 1 00 Milligram By mouth once daily as needed as needed for constipation. Last Dose Given: Next Dose Du e: midodrine 2.5 Milligram By mouth twice daily. Last Dose Given: Next Dose Du e: multivitamin with minerals ( Centrum Silver Women's oral tablet) 1 tab(s) By mouth once daily. Last Dose Given: Next Dose Du e: olaparib (Lynparza 150 mg oral tablet) 300 Raina gram By mouth twice daily. Last Dose Given: Next Dose Du e: saccharomyces boulardii 250 Milligram By mouth t wice daily. Last Dose Given: Next Dose Du e: warfarin. (warfarin) 10 Milligram By susi once daily. DAILY EXCEPT WEDNESDAY. Last Dose Given: Next Dose Du e: Discharge Information (if applicable): Discharge Comment: The patient/caregiver has be en advised to give the list of medications to his or her primary care physician. Weight at Discharge: K.05 kg JOSEPH VALDIVIA has b een given the following list of follow-up instructions, prescriptions, patient education materials, and valuables/belongings: Discharge Checklist: Education Topics: Valuables and Belongings: Clothes at Bedside: Pants, Shirt, Slippers Clothes Sent Home: Clothes Description: Electronics at Bedside:Cell phone Electronics Sent Home: Jewelry at Bedside: Earring(s) Jewelry Sent Home: Jewelry Description: Miscellaneous Items:None Miscellaneous Items Sent Home: Personal Devices:Dentures, lower, Dentures, uppe r Personal Devices Sent Home: Additional Discharge Instructions: Level of daily activity - yo u may need to change your daily routine to avoid behavior that will make your symptoms worse. Follow your doctor?s recommendations regarding your activity level. Diet - follow your doctors r ecommended diet. If no restrictions apply you may improve your condition by eating more healthful foods. Moderate restrictions on salt, for example, sometimes apply. Instruction about medication s - Take your medications as prescribed. Do not stop taking prescribed medicines even if you start to feel better, unless your doctor tells you to. Give a copy of the medicat ion information you received to your primary care physician. Carry a medication list with you and keep the list up-to-date. An appointment for a follow- up exam - Schedule a follow-up appointment, where you can confirm that your medications are working and detect early warning signs of new problems. If you have been diagnosed with heart failure - 1. Call your doctor, or seek immediate medical attention if your symptoms worsen: - Your ankles or feet swell more than usual. - You start coughing at night or have a frequent dry cough. - Breathing becomes difficult. 2. At home, you should weigh yourself every morning at the same time on the same scale. Keep a daily record of your weight. Call your doctor if you gain two or more pounds overnight or five pounds in a week. If you have been diagnosed with a stroke or TIA - Call 911 immediately for: - Sudden weakness or numbnes s of face, arm and leg usually on one side of the body. - Loss of vision, particularly in only one eye. - Sudden severe headache with no known cause. - Sudden trouble walking, di zziness, loss of balance or coordination, slurred speech. Risk factors for stroke: - Age: the older you get, the more likely you ar e to have a stroke. - Men, -Americans and [place]yanese-Americans h ave a higher risk. - Already having had a stroke makes you more lik kenji to have another. - Family history of stroke ( parent, grandparent, brother/sister) increases your risk. - You can control, treat or prevent some conditions to reduce your likelihood of stroke. High blood pressure, cigaret te smoking, high cholesterol, lack of regular physical activity, overweight, diabetes are all risk factors that can be changed. Additional information for s ruthkers - STOP SMOKING. Tobacco product use in any form can be hazardous to your health and to the health of those around you. If you smoke or chew tobacco consider quitting. Smoking cessation is particu larly important if you were hospitalized for pneumonia, congestive heart failure, stroke or heart attack. Refer to admission packet for more information. Patient Education and Medication Handouts, if an y, will display below Moderate Conscious Sedation, Adult, Care After This sheet gives you informa tion about how to care for yourself after your procedure. Your health care provider may also give you more specific instructions. If you have problems or questions, contact your health care provider. What can I expect after the procedure After the procedure, it is common to have: ? Sleepiness for several hours. ? Impaired judgment for several hours. ? Difficulty with balance. ? Vomiting if you eat too soon. Follow these instructions at home: For the time period you were told by your health care provider: ? Rest. ? Do not participate in activities where you cou ld fall or become injured. ? Do not drive or use machinery. ? Do not drink alcohol. ? Do not take sleeping pills or medicines that c ause drowsiness. ? Do not make important decisions or sign legal documents. ? Do not take care of children on your own. Eating and drinking ? Follow the diet recommended by your health car e provider. ? Drink enough fluid to keep your urine pale yel low. ? If you vomit: Drink water, juice, or soup when you can drink without vomiting. Make sure you have little or no nausea before e ating solid foods. General instructions ? Take bagw-kpt-vazfmnq and prescription medicines only as told by your health care provider. ? Have a responsible adult s iron with you for the time you are told. It is important to have someone help care for you until you are awake and alert. ? Do not smoke. ? Keep all follow-up visits as told by your health care provider. This is important. Contact a health care provider if: ? You are still sleepy or having trouble with ba catalina after 24 hours. ? You feel light-headed. ? You keep feeling nauseous or you keep vomiting . ? You develop a rash. ? You have a fever. ? You have redness or swelling around the IV sit e. Get help right away if: ? You have trouble breathing. ? You have new-onset confusion at home. Summary ? After the procedure, it is common to feel sleepy, have impaired judgment, or feel nauseous if you eat too soon. ? Rest after you get home. K now the things you should not do after the procedure. ? Follow the diet recommende d by your health care provider and drink enough fluid to keep your urine pale yellow. ? Get help right away if you have trouble breathing or new-onset confusion at home. This information is not inte nded to replace advice given to you by your health care provider. Make sure you discuss any questions you have with your health care provider. Document Revised: 01/17/2021 Document Reviewed: 08/15/2020 [employer] Patient Education 2020 [employer]. [address] [address] [place] [address] SMC (Suture Medicated Closure) PERCLOSE SMC (Suture Medicated Closur e) is a procedure which prevents bleeding from the groin immediately following catheterization procedure. The SMC Device places a surgical stitch in the artery to reliably stop arterial bleeding. After your Procedure: Please talk to your doctor a bout limitations in your activities and how to take care of your groin area after your procedure. Here are some general guidelines after you leave the hospital: ? Inspect the site and re-ap ply a clean, dry band-aid every day for 5 days or until a scab has formed at the site. ? Keep the site clean and dr y. If the bandage becomes wet, remove it and replace it with a new one. ? You may shower [address] the procedure, but do not bathe or use a pool until the wound has completely closed (at least 5 days). Gently clean your puncture site with soap and water. ? After showering, gently pa t-dry the site with a clean towel, then let the site air-dry before covering with a band-aid. A square adhesive bandage seals well. ? Limit tight fitting clothe s or underwear that may irritate the puncture site until the site has healed. ? No driving on the day of discharge. ? You may resume normal activity in 2 days: NO heavy lifting (more than 10 pounds) for a we ek. NO pushing NO vigorous activity NORMAL OBSERVATIONS: ? mild oozing from the incision site ? discomfort or soreness lasting 1 week ? some bruising lasting 2 weeks ? a small lump in your groin area lasting up to 6 weeks Please contact your doctor i mmediately if you experience any of the following signs and symptoms: ? Persistent tenderness or swelling at the punct ure site ? Significant pain at the puncture site or leg ? Bleeding/oozing at the puncture site ? Increasing redness, warmth, bruising or swelli ng at the puncture site ? Numbness or tingling in the leg ? Drainage from the puncture site ? Non-healing wound ? Fever or chills ? Any other unusual symptoms Angiogram An angiogram is a procedure used to examine the blood vessels. In this procedure, contrast dye is injected through a long, thin tube (catheter) into an artery. X-rays are then taken, which show if there is a blockage or problem in a blood vessel. The catheter may be inserted in: ? The groin area. This is the most common. ? The fold of the arm, near the elbow. ? The wrist. Tell a health care provider about: ? Any allergies you have, in cluding allergies to medicines, shellfish, contrast dye, or iodine. ? All medicines you are taki ng, including vitamins, herbs, eye drops, creams, and xnfm-vdo-ctpclwp medicines. ? Any problems you or family members have had wi th anesthetic medicines. ? Any blood disorders you have. ? Any surgeries you have had. ? Any medical conditions you have or have had, including any kidney problems or kidney failure. ? Whether you are or may be . ? Whether you are . What are the risks Generally, this is a safe procedure. However, pr oblems may occur, including: ? Infection. ? Bleeding and bruising. ? Allergic reactions to medicines or dyes, inclu ding the contrast dye used. ? Damage to nearby structure s or organs, including damage to blood vessels and kidney damage from the contrast dye. ? Blood clots that can lead to a stroke or heart attack. What happens before the procedure Staying hydrated Follow instructions from you r health care provider about hydration, which may include: ? Up to 2 hours before the p rocedure you may continue to drink clear liquids, such as water, clear fruit juice, black coffee, and plain tea. Eating and drinking restrictions Follow instructions from you r health care provider about eating and drinking, which may include: ? 8 hours before the procedu re stop eating heavy meals or foods, such as meat, fried foods, or fatty foods. ? 6 hours before the procedu re stop eating light meals or foods, such as toast or cereal. ? 2 hours before the procedure stop drinking akil ar liquids. Medicines Ask your health care provider about: ? Changing or stopping your regular medicines. This is especially important if you are taking diabetes medicines or blood thinners. ? Taking medicines such as a spirin and ibuprofen. These medicines can thin your blood. Do not take these medicines unless your health care provider tells you to take them. ? Taking bkhd-jzw-gnopzbi medicines, vitamins, h erbs, and supplements. Surgery safety Ask your health care provider: ? How your insertion site will be marked. ? What steps will be taken to help prevent infec tion. These may include: Removing hair at the insertion site. Washing skin with a germ-killing soap. Taking antibiotic medicine. General instructions ? Do not use any products th at contain nicotine or tobacco for at least 4 weeks before the procedure. These products include cigarettes, e-cigarettes, and chewing tobacco. If you need help quitting, ask your health care provider. ? You may have blood samples taken. ? [facility] ? If you will be going home right after the procedure, plan to have someone with you for 24 hours. What happens during the procedure ? You will lie on your back on an X-ray table. You may be strapped to the table if it is tilted. ? An IV will be inserted into one of your veins. ? Electrodes may be placed o n your chest to monitor your heart rate during the procedure. ? You will be given one or both of the following : A medicine to help you relax (sedative). A medicine to numb the area where the catheter will be inserted (local anesthetic). ? A small incision will be made for catheter ins ertion. ? The catheter will be inser jose a into an artery using a guide wire. An X-ray procedure (fluoroscopy) will be used to help guide the catheter to the blood vessel to be examined. ? A contrast dye will then b e injected into the catheter, and X-rays will be taken. The contrast will help to show where any narrowing or blockages are located in the blood vessels. You may feel flushed as the contrast dye is injected. ? Tell your health care prov ider if you develop chest pain or trouble breathing. ? After the fluoroscopy is complete, the cathete r will be removed. ? A bandage (dressing) will be placed over the site where the catheter was inserted. Pressure will be applied to help stop any bleeding. ? The IV will be removed. The procedure may vary among health care provide rs and hospitals. What happens after the procedure ? Your blood pressure, heart rate, breathing rate, and blood oxygen level will be monitored until you leave the hospital or clinic. ? You will be kept in bed ly ing flat for 6 hours. If the catheter was inserted through your leg, you will be instructed not to bend or cross your legs. ? The insertion area and the pulse in your feet or wrist will be checked frequently. ? You will be instructed to drink plenty of fluids. This will help wash the contrast dye out of your body. ? You may have more blood te sts and X-rays. You may also have a test that records the electrical activity of your heart (electrocardiogram, or ECG). ? Do not drive for 24 hours if you were given a sedative during your procedure. ? It is up to you to get the results of your procedure. Ask your health care provider, or the department that is doing the procedure, when your results will be ready. Summary ? An angiogram is a procedure used to examine th e blood vessels. ? Before the procedure, foll ow your health care provider's instructions about eating and drinking restrictions. You may be asked to stop eating and drinking several hours before the procedure. ? During the procedure, cont rast dye is injected through a thin tube (catheter) into an artery. X-rays are then taken. ? After the procedure, you w ill need to drink plenty of fluids and lie flat for 6 hour. This information is not inte nded to replace advice given to you by your health care provider. Make sure you discuss any questions you have with your health care provider. Document Revised: 04/03/2020 Document Reviewed: 04/03/2020 [employer] Patient Education 2020 [employer]. [facility] [address] [id number] Admission Orientation Welcome to [facility]. You are a very important part of your care. While you are here, we will work together to get you ready for discharge and teach you how to care for yourself w hen you are discharged. We w ill explain what to expect before, during and after your treatments and procedures. You will also be receiving education specific to your disease and treatments. Please let us know if you have questions or concerns. Here are some important thin gs that everyone needs to know about upon admission to our unit: CALL LIGHT The call light is located on the TV Remote Control and also on each of the side rails of your bed. ? Use the call light to call your nurse when you have a question, concern, need help or need pain medication. ? There is also an Emergency Call Light [...] your bed. You can move your head and feet up or down to make yourself more comfortable. Push the up or down arrow with the picture of the head to raise or lower the p osition of the head. Push the up or down arrow with the picture of the foot to raise or lower the position of the foot of the bed. While in the hospital, REMEMBER to change y our position frequently to keep your skin health y. TELEPHONE The telephone is located on the nightstand next to your bed. You must first dial '9' and then the number you wish to call. If you need to make a long distance call, you must dial ?[id number] for the hospital bin operator to assist you. TELEVISION The TV controls are also loc ated on the TV Remote Control. To turn it on, change channels or turn it off, press the button with the TV on it or the green on/off button. Use the up and down arrows to change the volume. VISITING HOURS We understand you want to visit your starr ed ones when it is convenient for you. ? The hospital is open to visitors 24 hours a da y, 7 days a week. ? In the Intensive Care Unit s, patient?s health information is discussed by the healthcare team from 10:00 AM to 11:00 AM; visitors must stay in the patient rooms with doors closed due to privacy issues. ? Family members wishing to be with the patient throughout the night may sleep in the room except in the Intensive Care Units. ? In the Intensive Care Unit s, family members wishing to be with the patient throughout the night are asked to sleep in the waiting room and check on the patient through the night. Speak to the patient's nurse for more information. ? During cold and flu season, we restrict visito rs as needed. RAISING CONCERNS/COMPLAINTS REGARDING YOUR CARE OR SAFETY You and your family are enco uraged to raise concerns or complaints if you have them. Exercising the right to do this will not affect your healthcare services in any way. ? If at anytime you have con cerns about patient care or safety, please speak to the echo vasc tech or Micro[employer] Specialist. ? If they are unable to reso lve your concern/complaint, you can call the Customer Communication line at [phone]. ? If your concerns are not s atisfactorily resolved through the hospital, you may contact the Joint Commission or the Department of Health Services: ? The Joint Commission: Call or email: ? [place] Dept of Health Services : [address] [place] [address] Website: https://rafi.[employer].gov/ls/online_compla int/MEDComplaint.aspx FAMILY RAPID RESPONSE is a l ifeline to immediate help when a patient or loved one feels the patientᛵs condition has worsened and immediate medical attention is needed. Dial [phone] from any hospital phone. PREVENTING INFECTION Five things you can do to pr event infection (such as colds, flu and strep throat). A 'Speak Up' safety initiative by Joint Commission on Accreditation of Healthcare Organizations 1. Clean your hands. ? Use soap and warm water. W et hands and apply soap. Rub your hands really well for at least 15 seconds. Rinse and dry. Use paper towel to turn water off. ? Or, if your hands do not l ook dirty, clean them with alcohol-based hand sanitizers. Rub the documentation liaison all over your hands, especially under your nails and between your fingers, until your h ands are dry. Children should be supervised when using this product. ? Clean your hands before to uching or eating food. Clean them after you use the bathroom, take out the trash, change a diaper, visit someone who is ill, or play with a pet. Visitors and famil y members of patients should wash/clean their hands before entering the room to visit and any time they leave the room. 2. Make sure health care providers clean their h ands and wear gloves. ? Doctors, nurses, dentists and other health care providers come into contact with lots of bacteria and viruses. So before they treat you, ask them if they've cleaned their hands. ? Health care providers shou ld wear clean gloves when they perform tasks such as taking throat cultures, pulling teeth, taking blood, touching wounds or body fluids, and examining your privat e parts. Don't be afraid to gently remind them t o wear gloves. 3. In the hospital, health c are workers use ?barriers? like gloves to protect the patients and themselves. ? While in the hospital a pa tient may have a specific germ that can be spread to others. These germs can be viruses or bacteria that cause illness. ? Some diseases and/or condi tions require the use of additional barriers, like gowns and/or masks and Isolation Precautions. ? Comply with additional isolation precautions. ? Signs are posted on/at patient doors w hen additional precautions are needed. ? All patients, visitors and staff are asked to follow the instructions posted on/at the patient door. ? Please ask your nurse if you have additional q uestions. ? Patients and families in i solation should not use the common kitchen area, but should ask health care workers for items that they need. 4. Cover your mouth and nose . Many diseases are spread through sneezes and coughs. When you sneeze or cough, the germs can travel 3 feet or more! Cover your mouth and nose to prevent the spread of infection to others. ? Use a tissue! Keep tissues handy at home, at work and in your pocket. Be sure to throw away used tissues and then clean your hands. ? If you don't have a tissue , cover your mouth and nose with the bend of your elbow or hands. If you use your hands, wash/clean them right away. 5. If you are sick, avoid close contact. ? If you are sick, stay away from other people. Stay home if you have a fever. Call work or school and tell them you are sick. ? When you go for medical tr eatment, call ahead and ask if there's anything you can do to avoid infecting people in the waiting room. These steps can help prevent the spread of colds, the flu, and diseases like pneumonia, and strep throat. Remember to stay current on your immunizations. Fall Prevention Guidelines for Patient and Famil y As a patient in the hospital , your condition and the treatments you receive can increase your risk for falls. Our desire is to minimize any fall risk for patients. It is important that you learn how to decrease fall risks during y our stay at the hospital. Let your caregiver know if you have a history of falls or any conditions that make you feel weak, unsteady or light-headed. Also, let your caregiver know if you have any proble ms with your vision, or need to put on your glasses before getting up. FALLS MAY OCCUR IN THE HOSPITAL BECAUSE . . . ? Medications such as tranq uilizers, sleeping pills, pain relievers, blood pressure pills, water pills and insulin, among others, all may make you dizzy, dazed and/or confused. ? Your illness, enemas, lax atives, long periods without food, tests or surgery may leave you weak and unsteady. ? You may have to use the restroom more than us ual while in the hospital. ? Lying down in bed for tod g periods of time can cause you to be dizzy and unsteady when you first get up. ? Your treatment requires m edical equipment with electrical cords and tubing, all of which can cause you to get tangled or to trip. ? The hospital is a new and unfamiliar environment for you. This is worse at night. Falls can cause serious inju asher and often can be prevented if fall precautions are observed. If we think you are at a risk for falls, we may place a fall risk band on your wrist. This band immediately alerts all staff that you ar e at a risk for falls. That way, they can work with you to take steps to prevent you from experiencing a fall. We may also place a sign in your room notifying your healthcare team that you have a condit ion or a past history that increases your risk of falls. If you are at high risk of a fall, or have had a fall before, we may put a bed alarm or ringer on your bed to notify your caregiver when you are getting up so that they can come and assist you. Patients with a fall history may also be given hip protectors and/or helmets to prevent fall injuries. Below are the most important steps you can take to prevent a fall: SAFETY GUIDELINES FOR PREVENTING FALLS ? Your caregiver will tell you if it is safe for you to get out of bed by yourself or if you should always call for help before getting out of bed. Your caregiver may also offer to assist yo u in getting safely to the toilet whenever he/sh e is in your room. ? Call for help if you feel dizzy or weak before getting out of bed. This is usually worse after sitting or lying for long periods. If you must get up without waiting for help, sit up in bed awhile before standing. The n get up carefully, and slowly begin to walk. If you feel dizzy or unsure of your footing, return to bed and wait for assistance. ? Generally, you should rem ain lying or seated, rather than standing, while waiting for help. Be patient; someone will come to assist you as soon as possible. ? Wear rubber-soled or crep e-soled slippers or shoes whenever you walk in the hospital. Check with your caregiver if you do not have any. A mat may be placed on the floor next to your bed to reduce the chance of slipping on the floor. ? Do not remove restraints or tamper with side rails that may be in use. Side rails and restraints are reminders to stay in bed and are used to keep you safe. ? When you need help, use y our call light by your bed or in the bathroom. Wait for one of your caregivers to help you. ? Walk slowly and carefully when out of bed. Do not lean or support yourself on rolling objects such as intravenous poles or bedside tables. ? Ask your caregiver for he lp if your telephone, bedside table or call light are not within your easy reach. Falls can occur when reaching from bed and not just getting up. ? Ask your caregiver to put the side rails of your bed up to prevent you from accidentally rolling out of bed. ? If you use a walker, be s ure that it is placed right beside your bed before your caregiver leaves your room. ? If you do not feel you ar e strong enough to safely make it to the bathroom, ask your caregiver for a bedside commode instead. ? Let your caregiver know if there is a spill o n the floor. ? If your caregiver determi jen you can get out of bed by yourself safely, always pay careful attention to the medical equipment, electrical cords and tubes around you. If you cannot get by the equipment, call your caregiver for assistance. ? Always turn on the light at nighttime before getting out of bed. ? When getting up from and into bed, avoid being distracted by the TV, telephone, or another person in your room. ? ? Falls often occur when a person is distracted when moving from the bed or around their room. A SPECIAL NOTE FOR FAMILY MEMBERS AND FRIENDS Hospital staff members canno t remain constantly at a patient's side. If necessary, make arrangements for a private-duty nurse, family member, or sitter to stay with your loved one. You may ask your caregivers if they have suggestions for times when a sitter would be most beneficial to the patient's comfort or peace of mind. Pain Management Pain is a sensation that pauline ts. It can be described as stabbing, pinching or aching, causing discomfort, distress or agony. It may be steady or it may come and go. Pain may be acute or chronic. Acute pa in, such as the pain caused by surgery may, at times, be very painful, but will gradually lessen as the body heals. Chronic pain, such as pain caused by arthritis or cancer, may be less painful but may last for long periods of time. When you are injured, pain w arns you to protect yourself and to avoid further injury. However, when your pain is unrelieved it can be harmful, especially when you are sick or after surgery. Pain can madeleine e it difficult to take a marguerite p breath and may interfere with your ability to move and walk. It is important to know that with the treatments available today, most pain can be well controlled no matter th e type and the amount of zandra n you feel. When your pain is well controlled, you can be more active, sleep better, eat better, and feel great. If you are recovering from surgery, controlling your pain can help you get well faster. Do the following: Be familiar with the pain sc tavares. A pain scale is a number scale to measure your pain. A rating of 0 means you feel no pain at all, 5 means you feel a moderate amount of pain, and 10 means you feel the w orst pain you can imagine. Y our nurse or physician will teach you to describe the type and amount of pain you are having. 0 1 2 3 4 5 6 7 8 9 10 No Moderate Worst Pain Pain Pain If you know your pain may wo rsen with an activity, take pain medicine first to prevent the pain. If pain does occur, don?t wait for it to get worse before asking for pain medicine. The best time to manage pain is when it first starts. Report any changes in pain or new pain to your p hysician or nurse. If you have any concerns abo ut addiction, talk to your doctor or nurse. Drug addiction is very rare in a person who is taking pain medicine for pain management. Taking pain medicine for pain management is not the same thing as addiction. Report the following side effects to your nurse or physician: ? Itching - Itching is not a n allergic reaction but a fairly common side effect of pain medicine. Ask the nurse for medicine to relieve the itching when necessary. ? Nausea - Nausea can occur from pain medicine, and it can also be treated with medicine. ? Constipation - Pain medici ne slows the bowel and can cause constipation. If your condition allows, the nurse will give you medicine to prevent constipation. ? Excessive drowsiness and r espiratory depression - These are the most serious but least common side effects of pain medicine. Less than 1% of patients experience these effects. These two antonio e effects develop slowly. Nu rses will be checking your sedation and breathing frequently. If detected, both are easily treated and corrected by decreasing the dose of pain medicine. Talk to your doctor or nurse if: ? You are experiencing pain ? You have questions about controlling your pain ? You have taken pain medicine and it is not wor barry At [facility], we will work with you and your family to manage your pain. We believe that managing your pain is an important part of your care. PREVENTING BLOOD CLOTS AND VENOUS THOMBOEMBOLISM (VTE) What is thromboembolism Blood flow is slower when th e body is not active. This can cause clots to form in the blood. A blood clot in a blood vessel is called a thrombus. If the clot breaks loose and plugs another vessel, it is called thromboembolism. The blood clot can cause permanent injury to your body if it is not treated. Deep vein thrombosis (DVT) i s a blood clot in one of the deep veins of the body, such as the leg or pelvis. This kind of clot can occur after surgery or long periods of bed rest. What are the signs and symptoms of deep vein thr ombosis ? Pain felt deep in the leg ? Swelling and discoloration of the skin ? Sudden onset of pain ? Fever Pulmonary embolism (PE) is a serious condition where the arteries from the heart to the lungs are blocked. This happens when a blood clot travels to the lungs. Pulmonary embolism can be deadly, but quic k treatment with anti-clotti ng medications can reduce the risk of . Preventing blood clots in your legs can help protect you against pulmonary embolism. What are the signs and symptoms of pulmonary emb olism ? Chest pain: May get worse with deep breathing, coughing, eating, and bending. ? Cough: Begins suddenly, may cough up blood or blood-streaked sputum ? Rapid breathing ? Rapid heart rate ? Shortness of breath, may occur at rest or duri ng activity, starts suddenly Why is prevention important Preventing clots is easier t garza treating them after they have happened. A blood clot can break off from the deep vein and travel to the lungs or other important organs. A blood clot can block blood flow to the tissues and ulcers or sores can result. How are deep vein thrombosis (DVT) and pulmonary embolus (PE) prevented ? Wear compression stockings (JOSE A hose) if your doctor recommends them. These keep blood from pooling in your veins. ? Wear a sleeve-like device on your legs (SCDs) after surgery to squeeze your legs and keep blood flowing through your veins. The squeezing motion is similar to how your muscles squeeze your veins during normal walking. ? Elevate the foot of your bed. ? Get up and move as soon as you can after surgery, or after you've been ill. The quicker you get moving, the less likely blood clots will develop. ? Take pain medicine as prescribed to make it ea sier to move around. ? If you're having surgery, such as orthopedic surgery, you may be given blood thinners or anticoagulant (anti-clotting) medicines. These medicines make the blood less able to clot a nd are sometimes called ?blo od thinners?. They can block the formation of new clots and stop existing clots from getting bigger. ? Exercise your muscles if y ou'll be sitting a long time. Whenever possible, get up and walk around. If you can't get up to walk around, try to exercise the feet by flexing, extending and rotating the foot. ? Make lifestyle changes. Lo se weight, quit smoking and control your blood pressure. Obesity, smoking and high blood pressure all increase your risk of deep vein thrombosis. ? Limit the amount of salt you eat. Eat a high p rotein, low fat diet. ? Do not wear constrictive clothing or stockings Call your doctor if you have: ? Pain in the leg ? Tenderness in the calf (this is one of the mos t important signs) ? Swelling of the leg ? Increased warmth of the leg ? Redness in the leg ? Bluish skin discoloration ? Discomfort when the foot is pulled upward ? Chest pain and/or cough ? Rapid breathing ? Rapid heart rate ? Shortness of breath FROM THE SOIL SURVEYOR Spiritual Care Services providing emotional and spiritual support At [facility], we are co mmitted to providing comprehensive care by embracing the whole person in body, mind and spirit. Board certified chaplains are available Wednesday - Wednesday 8 a.m.- 10:30 p.m. and Weekends 8 a.m. ? 4:30 p.m. to all patients and their families to offer support across a wide array of diverse tracie traditions. Call Spiritual Care Services ? To help you cope with feelings associated with diagnosis and treatment ? If you find yourself asking ?why? questions ? For Sacramental needs, ritual and prayer ? For grief and bereavement counseling ? If you have discovered new possibilities in yo ur life ? During time of /loss ? When you are struggling with forgiveness ? To coordinate and collaborate with your tracie leader ? To assist in decision making ? To assist with advanced health care planning To contact a marketing information analyst, ask y our nurse to call Spiritual Care Services Department: Story Teller: [phone] Director: [phone] We?re here to support your tracie, beliefs and va lues. STROKE/TIA(TRANSISCHEMIC ATTACK) INFORMATION If you have been diagnosed with a Stroke or TIA: 1. Call 911 immediately if you experience signs or symptoms of stroke as: ? Sudden weakness or numbne ss of face, arms and leg usually on one side of the body. ? Loss of vision, particularly in only one eye. ? Sudden severe headache with no known cause. ? Sudden trouble walking, d izziness, loss of balance or coordination, slurred speech. 2. Risk factors for stroke: ? Age: The older you get the more likely you are to have a stroke. ? Sex: and [place]ese [place] men have a higher risk. ? Prior Stroke: Already having a stroke makes you more likely to have another. ? Family history: Family (pa rent, grandparents, brother, sister) with a history of stroke increases your risk. ? You can control, treat or prevent some conditions to reduce your likelihood of stroke. High blood pressure, cigarette smoking, high cholesterol, Lack of regular physical activity, overweight, diabetes are all risk factors that can be changed. Cigarette Smoking Do you or someone you live w ith smoke If so, this is one of your greatest health risk! This is a risk that you can control. The facts are clear that cigarette smoking will shorten your life. Smoking can cause many illnesses along the way. If you or someone you live with need help to quit smoking, talk to your regular doctor. Please contact one or more of the following agencies for smoking-cessation information or classes: ? [facility] Tobacco U se Prevention Program- Telephone number: (403)-052-5954 ? [place] Smokers' Helpline :302.426.8249 or access via website: WWW.[employer].ORG ? [place] [employer] Telephone number: ( 295)-183-4885 ? [place] [employer] Telephone Number: IJOSEPH underst and that [facility] is not responsible for any personal belongings/effects or valuables that have not been identified on the valuable and belonging list . Any personal effects broug ht into the facility and not recorded on the valuables and belongings form are the responsibility of the patient/family/significant other. Discharge Education: Education Handouts: Moderate Conscious Sedation, Adult, Care After; EV (Eng) SMC (Suture Medicated Closure) PERCLOSE (Custom); Angiogram; EV [facility] (Eng) Admission Orientation (CUSTOM) Medication Handouts: I have received the indicate d patient education materials/instructions and medication list and have verbalized understanding. _ Patient Signature Provider Signature Date and Time Date and Time Clinical Summary [facility] 01/01/2022 Chapito tillman [facility] [address] [place] [address] Transfer of Care Summary Please take with you to your follow-up appointment with your regular physician. Person Information Name:SHEAWILBERTJOSEPHMAYRA BARRETO :1940 81 Ye ars SEX:F (EV) Address and Phone:[address] [place] [address] Language:Tunisian Race:White Ethnicity:Non-Hispan ic Visit Information Date of Discharge: LOS:000 11:44 Reason for Visit: Diagnosis:1:PAD (peripheral artery disease) Comment: Providers Primary Care Provider:Carol Ruff [id number] Care Team Providers: Attending Physician: Jg Frye MD MEDICAL INFORMATION Height 165.1 cm Weight 58.05 kg BMI 21.3 kg/m2 Smoking Status Blood Pressure 99 mm Hg / 63 mm Hg Cognitive and Functional Status Allergies NKA The following Tests Were Performed During Your V isit: Laboratory or Other Results This Visit (last charted value for your 01/01/2022 visit) WBC 01/01/2022 7:30 AM WBC: 3.3 thousand/uL -- Normal range between ( 4.8 and 10.8 ) RBC 01/01/2022 7:30 AM RBC: 2.40 million/uL -- Normal range between ( 4.00 and 5.40 ) Hgb 01/01/2022 7:30 AM Hgb: 9.4 gm/dL -- Normal range between ( 11.5 a nd 16.0 ) Hct 01/01/2022 7:30 AM Hct: 27.4 % -- Normal range between ( 37.0 and 47.0 ) Platelets 01/01/2022 7:30 AM Plt: 288 thousand/uL -- Normal range between ( 130 and 400 ) MCV 01/01/2022 7:30 AM MCV: 114.0 fL -- Normal range between ( 80.0 an d 100.0 ) MCH 01/01/2022 7:30 AM MCH: 39.0 pg -- Normal range between ( 27.0 and 34.0 ) MCHC 01/01/2022 7:30 AM MCHC: 34.2 gm/dL -- Normal range between ( 32.0 and 37.0 ) RDW 01/01/2022 7:30 AM RDW: 23.4 % -- Normal range between ( 11.5 and 16.0 ) ABS Neut 01/01/2022 7:30 AM ABS Neut: 2.3 thousand/uL -- Normal range betwe en ( 1.7 and 8.6 ) ABS Lymph 01/01/2022 7:30 AM ABS Lymph: 0.5 thousand/uL -- Normal range betw een ( 0.5 and 5.9 ) ABS [place] 01/01/2022 7:30 AM ABS [place]: 0.4 thousand/uL -- Normal range betwe en ( 0.0 and 1.6 ) ABS Eos 01/01/2022 7:30 AM ABS Eos: 0.1 thousand/uL -- Normal range betwee n ( 0.0 and 1.0 ) ABS Baso 01/01/2022 7:30 AM ABS Baso: 0.1 thousand/uL -- Normal range betwe en ( 0.0 and 0.3 ) Neuts 01/01/2022 7:30 AM Neuts: 70.8 % -- Normal range between ( 35.0 an d 80.0 ) Lymphs 01/01/2022 7:30 AM Lymphs: 14.4 % -- Normal range between ( 10.0 a nd 55.0 ) Monos 01/01/2022 7:30 AM Monos.: 10.8 % -- Normal range between ( 0.0 an d 15.0 ) Eos 01/01/2022 7:30 AM Eos.: 1.8 % -- Normal range between ( 0.0 and 9 .0 ) Baso 01/01/2022 7:30 AM Baso.: 2.2 % -- Normal range between ( 0.0 and 3.0 ) CBC Scan 01/01/2022 7:30 AM CBC Scan: Auto Diff Sodium 01/01/2022 7:30 AM Sodium: 137 mmol/L -- Normal range between ( 13 4 and 144 ) Potassium 01/01/2022 7:30 AM Potassium: 3.7 mmol/L -- Normal range between ( 3.5 and 5.1 ) Chloride 01/01/2022 7:30 AM Chloride: 102 mmol/L -- Normal range between ( 98 and 107 ) CO2 01/01/2022 7:30 AM CO2: 24 mmol/L -- Normal range between ( 23 and 31 ) BUN 01/01/2022 7:30 AM BUN: 12 mg/dL -- Normal range between ( 10 and 20 ) Creatinine 01/01/2022 7:30 AM Creatinine: 0.77 mg/dL -- Normal range between ( 0.57 and 1.11 ) Calcium 01/01/2022 7:30 AM Calcium: 9.2 mg/dL -- Normal range between ( 8. 4 and 10.2 ) Anion Gap 01/01/2022 7:30 AM Anion Gap: 15 -- Normal range between ( 5 and 1 5 ) Glucose 01/01/2022 7:30 AM Glucose Level: 99 mg/dL -- Normal range between ( 70 and 99 ) eGFR Non- Am 01/01/2022 7:30 AM eGFR Non- Am: >60 mL/min/1.73m2 eGFR Am 01/01/2022 7:30 AM eGFR Afr/Amer: >60 mL/min/1.73m2 COVID19 Source 12/30/2021 10:41 AM COVID19 Source: Nasal COVID19/SARS-CoV-2 PCR Result 12/30/2021 10:41 AM COVID19/SARS-CoV-2 PCR Result: Negative Activated Clot Time iSTAT (POCT) 01/01/2022 10:04 AM Activated Clot Time iSTAT ( POCT): 202 sec -- Normal range between ( 74 and 137 ) PT 01/01/2022 7:30 AM PT: 11.5 sec -- Normal range between ( 10.0 and 12.3 ) INR 01/01/2022 7:30 AM INR: 1.00 PTT 01/01/2022 7:30 AM PTT: 36.0 sec -- Normal range between ( 25.5 an d 36.0 ) Medication List: aspirin 81 Milligram By mouth once daily. atorvastatin 20 Milligram By mouth once daily. calcium-vitamin D (Calcium 600 +D Tab) 1 tab(s) By mouth three times daily. cholecalciferol (Vitamin D3) 125 Microgram By mo uth once daily. cyanocobalamin (B12 Vitamin Supplement) 500 Micr ogram By mouth once daily. docusate (docusate sodium) 1 00 Milligram By mouth once daily as needed as needed for constipation. midodrine 2.5 Milligram By mouth twice daily. multivitamin with minerals ( Centrum Silver Women's oral tablet) 1 tab(s) By mouth once daily. olaparib (Lynparza 150 mg oral tablet) 300 Raina gram By mouth twice daily. saccharomyces boulardii 250 Milligram By mouth t wice daily. warfarin. (warfarin) 10 Milligram By susi th once daily. DAILY EXCEPT WEDNESDAY. 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 ( 7) ESBL (12/15/2019) Deep venous thrombosis of left popliteal vein Acute superficial venous thrombosis of left low er extremity Resolved Shingles Elevated troponin Acute embolic stroke Procedures No Procedures Documented Immunizations No Immunizations Documented This Visit Additional Patient Instructions: No qualifying d layton available Patient Education Information: Instructions Assigned: Moderate Conscious Sedation, Adult, Care After; EV (Eng) SMC (Suture Medicated Closure) PERCLOSE (Custom); Angiogram; EV [facility] (Eng) Admission Orientation (CUSTOM) Prescription List: Continue Home Meds Other Medications aspirin 81 Milligram By mouth once daily. Last Dose Given: Next Dose Du e: atorvastatin 20 Milligram By mouth once daily. Last Dose Given: Next Dose Du e: calcium-vitamin D (Calcium 600 +D Tab) 1 tab(s) By mouth three times daily. Last Dose Given: Next Dose Du e: cholecalciferol (Vitamin D3) 125 Microgram By mo uth once daily. Last Dose Given: Next Dose Du e: cyanocobalamin (B12 Vitamin Supplement) 500 Micr ogram By mouth once daily. Last Dose Given: Next Dose Du e: docusate (docusate sodium) 1 00 Milligram By mouth once daily as needed as needed for constipation. Last Dose Given: Next Dose Du e: midodrine 2.5 Milligram By mouth twice daily. Last Dose Given: Next Dose Du e: multivitamin with minerals ( Centrum Silver Women's oral tablet) 1 tab(s) By mouth once daily. Last Dose Given: Next Dose Du e: olaparib (Lynparza 150 mg oral tablet) 300 Raina gram By mouth twice daily. Last Dose Given: Next Dose Du e: saccharomyces boulardii 250 Milligram By mouth t wice daily. Last Dose Given: Next Dose Du e: warfarin. (warfarin) 10 Milligram By susi th once daily. DAILY EXCEPT WEDNESDAY. Last Dose Given: Next Dose Du e: Advance Directive: POLST Tracking: In EMR Patient has an Advance Directive: At home Follow up: With: Address: When: Jg Frye MD, Card - Interventional [address] [place] [address] Within 1 to 3 days No Prescheduled Appointments Found Physician Documentation/Notes: Procedure Note Patient: JOSEPH VALDIVIA MRN: [id number] 01/01/2022 [facility] Age: 81 years Sex: F : 1940 Active Insu osman: MEDICARE [phone] [facility] Center Admitting MD: Location: [facility] A2: OFA2: 14 PCP: Carol Godinez MD Author: Jg Frye MD Procedure: Left leg Peripheral Angiogram IVUS And Angioplasty of the Popliteal artery. Indication for the procedure: Rest claudication Procedure: The patient underwent aortog tanmay with peripheral angiogram. Informed consent was obtained prior to the procedure. The patient was brought to the Catheterization lab and placed on the table in supine position. Right groin was prepped and draped in sterile fashion. Arterial access was obtained under fluoroscopy using micropuncture catheter. Angiogram was performed which showed stick in the common femoral arter y. 5F sheath was then placed using modified Seld marie technique. Advantage pro glide wire was then placed using RIM catheter over the iliac arteries and in to the contralateral SFA. Angiogram was then performed. Intervention: Using 0.018' N avicross, Popliteal artery occlusion was crossed using V-18 wire (command wire failed initially).. Angioplasty was performed with a 2.5 x 80 mm balloon. IVUS was then performed. Angioplasty of the left popl iteal artery was then performed with 4.0 x60 mm followed by 5.0 x 100 mm Lutonix PERRI. Final angiogram showed excellent results with lesion reduced to < 10%. non-flow limiting dissection noted At the end of the procedure, Perclose was used t o achieve local hemostasis. complications: none EBL: < 10 cc Conscious Sedation time: The patient was monitored with RN during and after the procedure for respiratory status. Conscious sedation was administered. Total monitoring time is: 60 minutes Findings: Left: Superficial femoral artery: patent without any significant stenosis. distal focal 80% disease noted Profunda femoris artery: patent with distal 50% disease Popliteal artery: Mid 100% occluded Anterior tibialis artery: Patent. TPT trunk: Patent Posterior tibial artery: Patent Peroneal artery: Patent Impression: Left popliteal artery occlus ion s/p Successful angioplasty of the left popliteal artery with lesion reduced to less than 10%. Plan: maximize medical management Lifestyle modifications Dual antiplatelet therapy High intensity statin Electronically Signed By: Jg Frye MD On 01/01/22 10:22 Co Signature By: Modify Signature By: Non Cardiac AO with RO 01/01/[address] [facility] l Catheterization PATIENT INFORMATION Medical Betito ter Patient Name JOSEPH VALDIVIA Study Date 01/01/2022 Study Number [id number] Date of 1940 Age 81 Years Gender Female Race Unknown Height 165.00 cm (5 ft. 5 in.) Weight 58.00 kg (128 lbs) BSA 1.63 m2 STAFF Duty Name IN OUT -- -------- -------- Dia Production Assembly Supervisor Jg Frye MD 08:35:57 Cell Stripper Barbra Cristobal RN 08:35:58 Monitor Barbra Cristobal RN 08:35:59 Scrub Gaurav Ramirez, 08:36:05 X-Ray Tech irina mcgill, 08:36:06 PROCEDURES Time Procedure -------- 08:59:14 Case done by Anisha EDWARDS Code 1: [id number] Code 2: Code 3: Code 4: :59:14 Scheduled Code 1: Code 2: Code 3: Code 4: 08:59:16 Out Patient Code 1: Code 2: Code 3: Code 4: :59:17 Moderate Sedation, initial 30 min Code 1: [id number] Code 2: Code 3: Code 4: 08:59:19 Art Access - R femoral artery* Code 1: Code 2: Code 3: Code 4: 10:15:44 Long leg runoff to feet Code 1: [id number] Code 2: Code 3: Code 4: 10:16:33 CEPHALOMETRIC ANALYST Fem/Pop Code 1: [id number] Code 2: Code 3: Code 4: Pressure Summary (mmHg) Baseline Time Site Sys Marshall End Mean A Wave V Wave Max dp /dt HR (BPM) -------- ---- ---- ---- ---- ---- ------ ------ --------- ------- 09:31:01 AO 123 41 0 66 62 09:37:09 AO 107 50 0 70 71 Pressures Used in Calculation (mmHg) Baseline Time Site Sys Marshall End Mean A Wave V Wave Max dp /dt HR (BPM) -------- ---- ---- ---- ---- ---- ------ ------ --------- ------- 09:37:09 AO 107 50 0 70 71 Cardiac Output Results-M Phase Manual C.O. Manual C.I. TDCO TDCI Manuela C.O . Manuela C.I. HR (l/min) (l/min/m2) (l/min) (l/min/m2) (l/min) ( l/min/m2)(BPM) -------- ------- ------- --- --------- ---- Baseline Blood Flow Results-M Baseline Group Sat (%) Content (ml/dl) ----- ------- PV SA PA MV VO2 VO2 (ml/min): VO2 Source: Manuela CO (l/min): Manuela CI (l/min/m2): A-VO2 Diff (ml/dl): Shunt Results Indexed Indexed Values Values (l/min/m2) (l/min/m2) Qp per Qs: EPBF (l/min): L->R Flow (l/min): Qp (l/min): R->L Flow (l/min): Qs (l/min): Resistance Results (Metric Units) Phase PVR SVR PVR-I SVR-I TPR TVR TPR-I TVR-I PV R/ TPR/ SVR TVR -------- ---- ----- ----- ----- ---- ----- ----- ----- ---- ---- Baseline Resistance Results (Wood Units) Phase PVR SVR PVR-I SVR-I TPR TVR TPR-I TVR-I PV R/ TPR/ SVR TVR -------- ---- ----- ----- ----- ---- ----- ----- ----- ---- ---- Baseline Stroke Work Results-M Phase RVSW LVSW RVSW-I LVSW-I (gm*m) (gm*m) (gm*m/m2) (gm*m/m2) -------- ----- ----- --------- --------- Baseline Intervention Summary Intervention Type:Peripheral Lesion Number: 1 Coronary Segment: Popliteal Initial Stenosis (%): Residual Stenosis (%): Pre JAYDEN Flow: Post JAYDEN Flow: Previously Treated Lesion: Lesion Complexity: In graft to cited segment: Perforation: Significant Dissection: No Acute Closure: Guidewire Crossing: Successful Reopening: Treatment: 1 Treatment Type: Balloon Primary Indication: Success Indication: Time Attempt Attributes Duration -------- -------- 09:48:23 Reggie: 10 120 Supply Name Usage ----- MONI SL [id number] OTW, 2.5X80X1 Treatment: 2 Treatment Type: IVUS Primary Indication: Success Indication: Time Attempt Attributes Duration -------- -------- 09:49:51 Reggie: 0 -1 Supply Name Usage ----- [employer] L[employer] PINE, Treatment: 3 Treatment Type: Balloon Primary Indication: Success Indication: Time Attempt Attributes Duration -------- -------- 09:54:04 Reggie: 10 120 Supply Name Usage ----- COYOTE [id number] OTW, [id number] Treatment: 4 Treatment Type: Balloon Primary Indication: Success Indication: Time Attempt Attributes Duration -------- -------- 10:02:30 Reggie: 8 300 Supply Name Usage ----- Lutonix 018 Drug Coated Balloon 5 X Conscious Sedation Pre-Study Conscious Sedation Assessments Activity: 2 - Able to move 4 extremities volunt arily or on command Respirations: 2 - Able to breathe deeply and co ugh freely Circulation: 2 - BP +/- 20% of pre-anesthetic l evel Consciousness: 2 - Fully Awake O2 Saturation: 2 - Able to maintain O2 saturati on greater than 92% on room air Pre-study Totals: 10 Comment: Post-Study Conscious Sedation Assessments Activity: 2 - Able to move 4 extremities volunt arily or on command Respirations: 2 - Able to breathe deeply and co ugh freely Circulation: 2 - BP +/- 20% of pre-anesthetic l evel Consciousness: 2 - Fully Awake O2 Saturation: 2 - Able to maintain O2 saturati on greater than 92% on room air Post-study Totals: 10 Comment: Medication Events-M Start Stop Medication Amount Route -------- -------- ------ ----- 09:08:00 Fentanyl 25 mcg IV Ordered By: Jg Frye MD Given By: Barbra Cristobal RN Type: Opioid Billing Code: 09:08:06 Versed 1 mg IV Ordered By: Jg Frye MD Given By: Barbra Cristobal RN Type: Sedative Billing Code: 09:09:17 1% Lidocaine 5 ml Subcut Ordered By: Jg Frye MD Given By: Jg Frye MD Type: Local Anesthetic Billing Code: 09:24:03 1% Lidocaine 10 ml Subcut Ordered By: Jg Frye MD Given By: Jg Frye MD Type: Local Anesthetic Billing Code: 09:25:21 Fentanyl 25 mcg IV Ordered By: Jg Frye MD Given By: Barbra Cristobal RN Type: Opioid Billing Code: 09:25:26 Versed 1 mg IV Ordered By: Jg Frye MD Given By: Barbra Cristobal RN Type: Sedative Billing Code: 09:32:34 Heparin 4000 units IV Ordered By: Jg Frye MD Given By: Barbra Cristobal RN Type: Anticoagulant Billing Code: 09:42:58 Fentanyl 25 mcg IV Ordered By: Jg Frye MD Given By: Barbra Cristobal RN Type: Opioid Billing Code: 10:06:36 Fentanyl 25 mcg IV Ordered By: Jg Frye MD Given By: Barbra Cristobal RN Type: Opioid Billing Code: 10:11:08 Aspirin 243 mg PO Ordered By: Jg Frye MD Given By: Barbra Cristobal RN Type: Antiplatelet Billing Code: 10:11:20 Plavix 300 mg PO Ordered By: Jg Frye MD Given By: Jg Frye MD Type: Antiplatelet Billing Code: VITALS Insp Exp SpO2 HR BP CO2 CO2 RR Temp Time (%) (BPM) (mmHg) (mmHg) (mmHg) (/min) (deg C) LOC -------- ----- ----- ----- ----- --- -- ------ ----- 09:00:13 100 76 137/62/89 0.0 31. 18 2 09:05:12 100 65 123/60/86 0.0 26. 23 2 09:10:10 100 66 113/54/78 0.0 27. 10 2 09:15:12 100 67 105/61/78 0.0 27. 16 2 09:19:52 100 64 102/55/74 0.0 28. 16 2 09:24:49 100 64 102/55/73 0.0 31. 13 2 09:29:46 99 66 100/56/73 0.0 31. 15 2 09:34:59 100 70 100/57/75 0.0 30. 10 2 09:39:49 100 69 104/56/76 0.0 27. 15 1 09:44:47 100 66 108/57/79 0.0 29. 12 2 09:49:48 100 69 113/59/82 0.0 27. 15 1 09:54:53 100 66 106/56/78 0.0 31. 17 1 09:59:48 100 64 105/55/75 0.0 33. 14 10:05:01 100 64 115/53/77 0.0 29. 16 2 10:10:08 100 66 119/56/81 0.0 29. 13 2 10:15:17 100 70 130/60/86 0.0 29. 16 Event Log-M Time Summary/Comment -------- 08:35:44 Phase: Baseline 08:35:53 Pre Case Documentation 08:36:08 Case Event Type:Diagnostic PV,Physician :Jg Frye A 08:36:14 Pre-Procedure Immediately Prior to [facility] Room 08:36:14 Verify Patient's Identity Using Two Pat ient Identifiers 08:36:14 Consent Signed and On Chart 08:36:14 Verbally Verify Site and Side with the Patient or Designee 08:36:14 Verify All Relevant Documentation prese nt, i.e. H&P 08:36:14 Verify Availability of Properly Labeled drugs and Radiology Resu 08:36:14 Verify Availability of blood/products, Devices, Equipment Neede 08:36:14 Pre-procedure Teaching Performed Includ ing Conscious Sedation 08:36:14 Pre-procedure Teaching Performed Includ ing Invasive Line Placeme 08:36:14 Patient Verbalized Understanding Of Pro cedure 08:36:14 Pre-Procedure Immediately Prior to Proc edure Room 08:36:14 Verbally Verify Site and Side with the Patient or Designee 08:36:14 Armband Checked and On Patient 08:59:12 Patient Arrives From 08:59:14 Procedure: Case done by Cath 08:59:14 Procedure: Scheduled 08:59:16 Procedure: Out Patient 08:59:17 Procedure: Moderate Sedation, initial 3 0 min 08:59:19 Procedure: Art Access - R femoral arter y* 08:59:25 Patient on Table 08:59:26 Patient Placed on 02 by NC at 3L 08:59:32 pre case ekg 08:59:59 Pre-Case: Conscious Sedation/Ignacio 09:00:06 ETCO2 Waveform Assessment wnl +0ss +sr 09:00:13 SpO2 100%; HR 76 bpm; 137/62/89 NBP; LO C 2; RR 18/min INSP: 0 mmHg; EXP: 31 mmHg; 09:00:52 Patient Allergies: See Custom Form. 09:01:02 Stop Bang Score = 1 09:01:03 MD informed of STOP BANG Score 09:01:03 Fire Risk Assessment= 1 09:01:08 Lab Results Checked and Documented 09:01:42 Pre-Procedure Pulses Checked and Docume nted 09:01:50 Heparinized Saline 2units/ml 500mls 09:01:50 Patient educated re: groin/wrist prepar ation. 09:01:50 Patient states understanding of prep an d agrees to proceed 09:01:50 Patient prepped using sterile technique 09:01:50 ___Heparinized saline added to sterile field 09:01:53 Physician Arrived 09:01:53 ASA ASSESSMENT FORM 09:05:12 SpO2 100%; HR 65 bpm; 123/60/86 NBP; LO C 2; RR 23/min INSP: 0 mmHg; EXP: 26 mmHg; 09:07:52 Time Out Taken 09:07:52 Pre Procedural Pause with all staff and Physician present 09:07:52 Correct Patient Name Verified 09:07:52 Correct Patient Birthdate Identified 09:07:[birth year] Correct Procedure Verified 09:07:52 Correct Physician Verified 09:07:52 Correct Site Verified 09:08:00 Fentanyl IV 25 mcg 09:08:06 Versed IV 1 mg 09:08:07 MANIFOLD KIT ANGIO CUSTOM 09:08:07 Case Start 09:09:13 1% Lidocaine Administered To: left peda l 09:09:17 1% Lidocaine Subcut 5 ml 09:09:21 Percutaneous Puncture To: left pedal 09:10:10 SpO2 100%; HR 66 bpm; 113/54/78 NBP; LO C 2; RR 10/min INSP: 0 mmHg; EXP: 27 mmHg; 09:15:12 SpO2 100%; HR 67 bpm; 105/61/78 NBP; LO C 2; RR 16/min INSP: 0 mmHg; EXP: 27 mmHg; 09:19:52 SpO2 100%; HR 64 bpm; 102/55/74 NBP; LO C 2; RR 16/min INSP: 0 mmHg; EXP: 28 mmHg; 09:23:47 unable to access pedal artery 09:23:58 1% Lidocaine Administered To: right michel in 09:24:03 1% Lidocaine Subcut 10 ml 09:24:04 Percutaneous Puncture To: rfa 09:24:40 Sheath Inserted Into: rfa 09:24:49 SpO2 100%; HR 64 bpm; 102/55/73 NBP; LO C 2; RR 13/min INSP: 0 mmHg; EXP: 31 mmHg; 09:25:21 Fentanyl IV 25 mcg 09:25:26 Versed IV 1 mg 09:27:59 [id number] 5Fr Micro Puncture Kit 09:28:03 Guidewire Inserted 09:29:04 Catheter Inserted 09:29:37 5F X 65CM OMNI FLUSH 09:29:40 omniflush removed 09:29:46 SpO2 99%; HR 66 bpm; 100/56/73 NBP; LOC 2; RR 15/min INSP: 0 mmHg; EXP: 31 mmHg; 09:29:48 glidewire inserted 09:29:55 PV Intervention 09:29:56 Case Event Type:Interventional PV,Physi neil:Jg Frye A 09:30:01 INDEFLATOR KIT 09:30:07 Sheath Exchanged By Guidewire 09:30:15 RSR13 6Fr x 45cm DESTINATION GUIDING [facility] 09:31:01 AO : 123//66, HR = 62, aVL 09:31:01 Snapshot: AO : 123/41/66 09:32:34 Heparin IV 4,000 units 09:34:35 0.014 x 300cm Command ES Guidewire 0.01 4 x 300cm 09:34:39 .018 NAVICROSS 150CM 09:34:59 SpO2 100%; HR 70 bpm; 100/57/75 NBP; LO C 2; RR 10/min INSP: 0 mmHg; EXP: 30 mmHg; 09:35:06 Power Injection Of: left leg 09:35:38 Guidewire Inserted 09:37:08 Catheter Inserted 09:37:09 AO : 107/50/70, HR = 71, aVL 09:37:09 Snapshot: AO : 107/50/70 09:39:49 SpO2 100%; HR 69 bpm; 104/56/76 NBP; LO C 1; RR 15/min INSP: 0 mmHg; EXP: 27 mmHg; 09:40:07 V18 CONTROL WIRE [id number] STRAIGHT TIP 09:40:11 wire removed, v18 inserted 09:42:58 Fentanyl IV 25 mcg 09:43:56 PTA Balloon 09:43:59 navicross removed 09:44:31 [id number] OTW MONI SL [id number] O TW 09:44:36 Balloon Catheter Inserted 09:44:47 SpO2 100%; HR 66 bpm; 108/57/79 NBP; LO C 2; RR 12/min INSP: 0 mmHg; EXP: 29 mmHg; 09:48:23 Balloon inflated for 120 sec @ 10 reggie i n the Popliteal. 09:48:31 Post Injection 09:48:32 CEPHALOMETRIC ANALYST Balloon Removed 09:48:34 command wire remvoed 09:48:44 [employer] 09:49:23 IVUS 09:49:30 IVUS Catheter Flushed and Prepped 09:49:31 Wire Across Target Lesion 09:49:31 IVUS Catheter Inserted 09:49:48 SpO2 100%; HR 69 bpm; 113/59/82 NBP; LO C 1; RR 15/min INSP: 0 mmHg; EXP: 27 mmHg; 09:49:51 IVUS. 09:49:53 Coronary Vessel Visualized 09:49:53 IVUS Pullback Initiated 09:49:53 IVUS Images Recorded 09:49:54 Physician Reviewing IVUS Images 09:49:58 IVUS Catheter Removed 09:49:59 Coronary/Peripheral Vessel Visualized 09:53:04 [id number] COYOTE [id number] OTW 09:53:18 act running 09:53:24 BALLOON ANGIOPLASTY 09:53:24 PTCA Balloon Inserted 09:54:04 Balloon inflated for 120 sec @ 10 reggie i n the Popliteal. 09:54:53 SpO2 100%; HR 66 bpm; 106/56/78 NBP; LO C 1; RR 17/min INSP: 0 mmHg; EXP: 31 mmHg; 09:58:46 Post Injection 09:58:47 CEPHALOMETRIC ANALYST Balloon Removed 09:58:48 Artery Visualized 09:59:48 SpO2 100%; HR 64 bpm; 105/55/75 NBP; RR 14/min INSP: 0 mmHg; EXP: 33 mmHg; 10:02:16 5 x 100 x 130cm Lutonix 018 Drug Coated Balloon 5 X 100 X130cm 10:02:21 Balloon Catheter Inserted 10:02:30 Balloon inflated for 300 sec @ 8 reggie in the Popliteal. 10:05:01 SpO2 100%; HR 64 bpm; 115/53/77 NBP; LO C 2; RR 16/min INSP: 0 mmHg; EXP: 29 mmHg; 10:06:36 Fentanyl IV 25 mcg 10:08:02 act 202 md aware 10:08:23 Post Injection 10:08:24 CEPHALOMETRIC ANALYST Balloon Removed 10:09:29 Guidecath and Guidewire Removed 10:10:08 SpO2 100%; HR 66 bpm; 119/56/81 NBP; LO C 2; RR 13/min INSP: 0 mmHg; EXP: 29 mmHg; 10:11:08 Aspirin PO 243 mg 10:11:20 Plavix PO 300 mg 10:11:33 Groin Management 10:11:33 Injection Of Iliac For Possible Closure Device 10:11:36 [id number] PERCLOSE PROGLIDE 10:11:41 Sheath removed, manual pressure applied for 5 minutes 10:11:48 Post Procedure Pulses Checked and Docum ented 10:13:32 Contrast: Isovue 300 65 ml 10:13:46 Complication: No complications 10:13:47 Complication: No Sedation Complications 10:15:17 SpO2 100%; HR 70 bpm; 130/60/86 NBP; RR 16/min INSP: 0 mmHg; EXP: 29 mmHg; 10:15:44 Procedure: Long leg runoff to feet 10:16:28 post case ekg 10:16:33 Procedure: CEPHALOMETRIC ANALYST Fem/Pop 10:16:59 Post Case Ignacio 10:17:05 Case End 10:17:06 Post Case Documentation ____ 10:17:07 Hemostasis Obtained 10:17:07 Sterile Dressing Applied To Site 10:17:07 Post Procedure Teaching Performed 10:17:07 Patient Verbalizes Understanding Of Tea kike 10:17:07 Final EtCO2 Waveform Assessment same as Baseline 10::07 . 10:17:08 SBAR Report Called To: rn 10:17:08 Discharge Conscious Sedation/Ignacio Pr ior to Transfer 10:17:23 Patient Transferred to: [facility] 14 Supplies Summary Time Product Line Manager Item Name (Model) -------- 09:01:50 Heparinized Saline 2units/ml 500mls Size: Serial #: Lot #: Part Number: [id number] Billing Code: 09:08:07 [employer] MANIFOLD KIT ANGIO CUSTOM Size: Serial #: Lot #: Part Number: [id number] Billing Code: [id number] 09:27:59 [employer] 5Fr Micro Puncture Kit Size: [id number] Serial #: Lot #: Part Number: [id number] Billing Code: [id number] 09:29:37 [employer] OMNI FLUSH Size: 5F X 65CM Serial #: Lot #: Part Number: [id number] Billing Code: [id number] 09:30:01 [facility] Medical INDEFLATOR KIT Size: Serial #: Lot #: Part Number: [id number] Billing Code: [id number] 09:30:15 [employer] 6Fr x 45cm DESTINATION G UIDING SHEATH Size: [id number] Serial #: Lot #: Part Number: [id number] Billing Code: [id number] 09:34:35 [employer] Command ES Guidewire 0. 014 x 300cm Size: 0.014 x 300cm Serial #: Lot #: Part Number: [id number] Billing Code: [id number] 09:34:39 .018 NAVICROSS 150CM Size: Serial #: Lot #: Part Number: [id number] Billing Code: [id number] 09:40:07 [employer] V18 CONTROL WIRE [id number] STRAIGHT TIP Size: Serial #: Lot #: Part Number: [id number] Billing Code: [id number] 09:44:31 MONI SL [id number] OTW Size: [id number] OTW Serial #: Lot #: Part Number: [id number] Billing Code: [id number] 09:48:44 [place] [employer] LONE PINE Size: Serial #: Lot #: Part Number: [id number] Billing Code: [id number] 09:53:04 COYOTE [id number] OTW Size: [id number] Serial #: Lot #: Part Number: [id number] Billing Code: [id number] 10:02:16 Bard Peripheral Vas cular Lutonix 018 Drug Coated Balloon 5 X 100 X130cm Size: 5 x 100 x 130cm Serial #: Lot #: Part Number: [id number] Billing Code: [id number] 10:11:36 [employer] PERCLOSE PROGLIDE Size: [id number] Serial #: Lot #: Part Number: [id number] Billing Code: [id number] Contrast-M Time Contrast Amount (ml) -------- 10:13:32 Isovue 300 65 Radiology Summary Total Runs: 68 Total Cine Frames: Cine Archive CD Identification (ID): Diagnostic Interventional Total Fluoro Time (minutes): 8.60 Exam Record Exam Fluoro Exam Total DAP DAP DAP Dose Area Product (cGycm2): 238.31 274.82 513.13 Complications Time Complication -------- - 10:13:46 No complications 10:13:47 No Sedation Complications Custom Forms Pre Procedure Labs -- WBC: 3.3 Pre Procedure Labs -- Platelets: 288 Pre Procedure Labs -- Max Con: 212 Pre Procedure Labs -- Time of Labwork 09:01:08 Pre Procedure Labs -- Potassium 3.7 Pre Procedure Labs -- Cr Cl: 53 Pre Procedure Labs -- Date of Labwork 01/01/2022 Pre Procedure Labs -- Hct: 9.4 Pre Procedure Labs -- Bun: 12 Pre Procedure Labs -- Creatinine .77 Pre Procedure Labs -- Hgb: 9.4 Discharge Ignacio -- Time: 10:17:08 Discharge Ignacio -- Total 12 Discharge Ignacio -- O2 Saturation: 2: Has level >90% when breathing room air Discharge Ignacio -- Activity: 2:Moves 4 extremities Voluntarily/Comm and Discharge Ignacio -- Consciousness: 2: Fully awake, alert and orienta jose a Discharge Ignacio -- Circulation: 2: BP is 0-20mmHG from pre-sedation level Discharge Ignacio -- Resirations: 2: Breathes deeply and coughs freel y Discharge Ignacio -- Pain Level: 2:None, or minimal Discharge Ignacio -- Date: 01/01/2022 Pre/Post Procedure Pulses -- RDP: Doppler Pre/Post Procedure Pulses -- RDP: Doppler Pre/Post Procedure Pulses -- LDP: Doppler Pre/Post Procedure Pulses -- R Radial: Normal Pre/Post Procedure Pulses -- R Radial: Normal Pre/Post Procedure Pulses -- Date 01/01/2022 Pre/Post Procedure Pulses -- LDP: Doppler Pre/Post Procedure Pulses -- L Radial: Normal Pre/Post Procedure Pulses -- L Radial: Normal Pre/Post Procedure Pulses -- Time Pre- Pulses Checked 09:01:42 IV Information -- IV Location #1 right fa IV Information -- Rate (ml per hour) 100 IV Information -- IV Fluids ns Allergies -- Allergies: NKDA ASA Form -- Mallampati Airway Class Class II ASA Form -- Pain Assessment per pain scale 0-10 0 ASA Form -- NPO Since 000 ASA Form -- Time 09:01:53 ASA Form -- Allergies: nkda ASA Form -- Plan for Sedation Moderate ASA Form -- History on Chart Between 1-30 days with updated signature, date and time ASA Form -- ASA SCORE ASA II - Mild systemic disease that do es not limit function ASA Form -- Airway Assessment Normal ASA Form -- Date 01/01/2022 Discharge Instructions [facility] 12/07/19 [facility] Document [address] [place] [address] SHEA JOSEPH BARRETO :1940 (EV) Visit Date:12/05/2021 Inpatient Discharge Instructions Your Care Team Attending Physician - Jg Frye MD Lifetime Physician(PCP) - Carol Ruff MD Your Diagnosis PAD (peripheral artery disease) Discharge Vitals Heart Rate 72 Respiratory R ate 15 Blood Pressure 95/53 Height 165.1 cm Weight 58.05 kg BMI 21.3 What to do next You May Need to Schedule the Following Appointme nts Follow Up with Sharif Frye MD, Card - Interventional When Within 1 to 3 days Where: [address] [place] [address]- We encourage you to sign up for My Portal, where you can easily access your medical records and test results from all [facility]. Please sign up in one of the following ways: 1. Email invitation. You may have a message in your inbox. Please click the link provided to create an account. OR 2. Request an invitation at your next clinic or hospital visit. Please ask a staff member and they will be happy to assist you. Medications What How Much When Instructions Next Dose Unchanged aspirin 81 Milligram By mouth Every m orning Unchanged atorvastatin 20 Milligram By mouth On ce daily Unchanged calcium-vitamin D (Calcium 600 +D Tab) 1 tab(s) By mouth Three times daily Unchanged cholecalciferol ( Vitamin D3 5,000 Unit oral capsule) 1 cap By mouth Once daily with food Unchanged cyanocobalamin (V itamin B12 50 mcg oral tablet) 1 tab(s) By mouth Every morning Unchanged midodrine 2.5 Milligram By mouth Once daily Unchanged multivitamin with minerals (Centrum Silver Women's oral tablet) 1 tab(s) By mouth Once daily Unchanged olaparib (Lynparz a 100 mg oral tablet) 2 tab(s) By mouth Twice daily Unchanged warfarin. (warfar in) 10 Milligram By mouth Once daily DAILY EXCEPT WEDNESDAY Discharge Orders Discharge Orders: Discharge Today, Home or self care, home at 200 0 if HD stable [employer] [facility] [address] [place] [address] [place] [address] HEMOSTASIS BY ANGIO-SEAL HOME CARE INSTRUCTIONS ? Do not drive for 24 hours ?Keep dressing dry. No tub baths. You may take a shower.? ?Leave small dressing on fo r the next 24 hours. Tomorrow morning in the shower remove both dressings, wash the area with warm soapy water, pat dry and leave open to air. ?No heavy lifting for the next 72 hours.? ?A small amount of bruising is ok, and expected . ?Read the Angioseal brochure that you received. ?Carry Angioseal card in your wallet for 60-90 days. ?If there is any continuou s bleeding or swelling at puncture site, apply firm pressure with your hand above the puncture site, and return to the hospital immediately. IF BLEEDING IS PROFUSE , DIAL 911 IMMEDIATELY. You may have a small blood spot (dime to half-dollar size) on your dressing when you leave the hospital, or by the time you get home. This amount is normal. ?Resume all medications unl ess otherwise instructed by your Production Assembly Supervisor. If you take Glucophage for diabetes, do not take it for the next 48 hours. If you are concerned about this, please contact your primary care physician. ?If you have any questions regarding limitations or activities following your procedure please contact your physician. Femoral Site Care This sheet gives you inform ation about how to care for yourself after your procedure. Your health care provider may also give you more specific instructions. If you have problems or questions, contact your health care provider. What can I expect after the procedure After the procedure, it is common to have: ? Bruising that usually fades within 1?2 weeks. ? Tenderness at the site. Follow these instructions at home: Wound care ? Follow instructions from yo health care provider about how to take care of your insertion site. Make sure you: Wash your hands with soap a nd water before you change your bandage (dressing). If soap and water are not available, use hand documentation liaison. Change your dressing as told by your health car e provider. Leave stitches (sutures), s kin glue, or adhesive strips in place. These skin closures may need to stay in place for 2 weeks or longer. If adhesive strip edges start to loosen and curl up, you may trim the loose edges. Do not mitali ve adhesive strips completely unless your health care provider tells you to do that. ? Do not take baths, swim, or use a hot tub until your health care provider approves. ? You may shower 24-48 hours after the procedure or as told by your health care provider. Gently wash the site with plain soap and water. Pat the area dry with a clean towel. Do not rub the site. This may cause bleeding. ? Do not apply powder or lotion to the site. Keep the site clean and dry. ? Check your femoral site every day for signs of infection. Check for: Redness, swelling, or pain. Fluid or blood. Warmth. Pus or a bad smell. Activity ? For the first 2?3 days after your procedure, or as long as directed: Avoid climbing stairs as much as possible. Do not squat. ? Do not lift anything that i s heavier than 10 lb (4.5 kg), or the limit that you are told, until your health care provider says that it is safe. ? Rest as directed. Avoid sitting for a long ti me without moving. Get up to take short walks every 1?2 hours. ? Do not drive for 24 hours i f you were given a medicine to help you relax (sedative). General instructions ? Take [id number] and p rescription medicines only as told by your health care provider. ? Keep all follow-up visits a s told by your health care provider. This is important. Contact a health care provider if you have: ? A fever or chills. ? You have redness, swelling, or pain around your insertion site. Get help right away if: ? The catheter insertion area swells very fast. ? You pass out. ? You suddenly start to sweat or your skin gets c lammy. ? The catheter insertion area is bleeding, and the bleeding does not stop when you hold steady pressure on the area. ? The area near or just beyon d the catheter insertion site becomes pale, cool, tingly, or numb. These symptoms may represen t a serious problem that is an emergency. Do not wait to see if the symptoms will go away. Get medical help right away. Call your local emergency services (911 in the [place] Do not drive yourself to the hospital. Summary ? After the procedure, it is common to have bruising that usually fades within 1?2 weeks. ? Check your femoral site every day for signs of infection. ? Do not lift anything that i s heavier than 10 lb (4.5 kg), or the limit that you are told, until your health care provider says that it is safe. This information is not int ended to replace advice given to you by your health care provider. Make sure you discuss any questions you have with your health care provider. Document Revised: Document Reviewed: 05/23/2021 [employer] Patient Education ? 2020 [employer] Moderate Conscious Sedation, Adult, Care After This sheet gives you inform ation about how to care for yourself after your procedure. Your health care provider may also give you more specific instructions. If you have problems or questions, contact your health care provider. What can I expect after the procedure After the procedure, it is common to have: ? Sleepiness for several hours. ? Impaired judgment for several hours. ? Difficulty with balance. ? Vomiting if you eat too soon. Follow these instructions at home: For the time period you were told by your [facility] care provider: ? Rest. ? Do not participate in activities where you coul d fall or become injured. ? Do not drive or use machinery. ? Do not drink alcohol. ? Do not take sleeping pills or medicines that ca use drowsiness. ? Do not make important decisions or sign legal d ocuments. ? Do not take care of children on your own. Eating and drinking ? Follow the diet recommended by your health care provider. ? Drink enough fluid to keep your urine pale yell ow. ? If you vomit: Drink water, juice, or soup when you can drink without vomiting. Make sure you have little or no nausea before e ating solid foods. General instructions ? Take wfnv-bcg-vgpnhwh and p rescription medicines only as told by your health care provider. ? Have a responsible adult st ay with you for the time you are told. It is important to have someone help care for you until you are awake and alert. ? Do not smoke. ? Keep all follow-up visits a s told by your health care provider. This is important. Contact a health care provider if: ? You are still sleepy or having trouble with bal ance after 24 hours. ? You feel light-headed. ? You keep feeling nauseous or you keep vomiting. ? You develop a rash. ? You have a fever. ? You have redness or swelling around the IV site . Get help right away if: ? You have trouble breathing. ? You have new-onset confusion at home. Summary ? After the procedure, it is common to feel sleepy, have impaired judgment, or feel nauseous if you eat too soon. ? Rest after you get home. Kn ow the things you should not do after the procedure. ? Follow the diet recommended by your health care provider and drink enough fluid to keep your urine pale yellow. ? Get help right away if you have trouble breathing or new-onset confusion at home. This information is not int ended to replace advice given to you by your health care provider. Make sure you discuss any questions you have with your health care provider. Document Revised: 1 Document Reviewed: 08/15/2020 [employer] Patient Education ? 2020 [employer] Angiogram, Care After This sheet gives you inform ation about how to care for yourself after your procedure. Your health care provider may also give you more specific instructions. If you have problems or questions, contact your health care provider. What can I expect after the procedure After the procedure, it is common to have: ? Bruising and tenderness at the catheter inserti on area. ? A collection of blood (candice giovanny) at the insertion area. This may feel like a small lump under the skin at the insertion site. Follow these instructions at home: Insertion site care ? Follow instructions from yo health care provider about how to take care of your insertion site. Make sure you: Wash your hands with soap a nd water before and after you change your bandage (dressing). If soap and water are not available, use hand documentation liaison. Change your dressing as told by your health car e provider. ? Do not take baths, swim, or use a hot tub until your health care provider approves. ? You may shower 24?48 hours after the procedure, or as told by your health care provider. To clean the insertion site: Gently wash the area with plain soap and water. Pat the area dry with a clean towel. Do not rub the site. This may cause bleeding. ? Check your insertion site every day for signs o f infection. Check for: Redness, swelling, or pain. Fluid or blood. Warmth. Pus or a bad smell. ? Do not apply powder or lotion to the site. Keep the site clean and dry. Activity ? Do not drive for 24 hours if you were g iven a sedative during your procedure. ? Rest as told by your health care provider, kaye lly for 1?2 days. ? Do not lift anything that i s heavier than 10 lb (4.5 kg), or the limit that you are told, until your health care provider says that it is safe. ? If the insertion site was in your leg, try to a void stairs for a few days. ? Return to your normal activ ities as told by your health care provider, usually in about a week. Ask your health care provider what activities are safe for you. General instructions ? If your insertion site star ts bleeding, lie flat and put pressure on the site. If the bleeding does not stop, get help right away. This is a medical emergency. ? Take dqws-fhf-ydfqczv and p rescription medicines only as told by your health care provider. ? Drink enough fluid to keep your urine pale yellow. This helps flush the contrast dye from your body. ? Keep all follow-up visits a s told by your health care provider. This is important. Contact a health care provider if: ? You have a fever or chills. ? You have redness, swelling, or pain around your insertion site. ? You have fluid or blood coming from your insert ion site. ? Your insertion site feels warm to the touch. ? You have pus or a bad smell coming from your in sertion site. ? You have more bruising around the insertion sit e. Get help right away if you have: ? A problem with the insertion area, such as: The area swells fast or bleeds even after you a pply pressure. The area becomes pale, cool, tingly, or numb. ? Chest pain. ? Trouble breathing. ? A rash. ? Any symptoms of a stroke. ' BE FAST' is an easy way to remember the main warning signs of a stroke: B - Balance. Signs are dizziness, sudde n trouble walking, or loss of balance. E - Eyes. Signs are trouble seeing or a sudden change in vision. F - Face. Signs are sudden weakness or loss of feeling of the face, or the face or eyelid drooping on one side. A - Arms. Signs are weaknes s or loss of feeling in an arm. This happens suddenly and usually on one side of the body. S - Speech. Signs are sudde n trouble speaking, slurred speech, or trouble understanding what people say. T - Time. [facility]. Write down what time symptoms started. ? You have other signs of a stroke, such as: A sudden, severe headache with no known cause. Nausea or vomiting. Seizure. These symptoms may represen t a serious problem that is an emergency. Do not wait to see if the symptoms will go away. Get medical help right away. Call your local emergency services (911 in the [place] Do not drive yourself to the hospital. Summary ? It is common to have bruising and tenderness at the catheter insertion area. ? Do not take baths, swim, or use a hot tub until your health care provider approves. You may shower 24?48 hours after the procedure or as told. ? It is important to rest and drink plenty of flu ids. ? If the insertion site bleed s, lie flat and put pressure on the site. If the bleeding continues, get help right away. This is a medical emergency. This information is not int ended to replace advice given to you by your health care provider. Make sure you discuss any questions you have with your health care provider. Document Revised: 0 Document Reviewed: 07/24/2020 [employer] Patient Education ? 2020 [employer] Clothes at Bedside: Pants, Shirt, Shoes, Socks, Undergarments Clothes Sent Home: Pants, Shirt, Shoes, Socks, Undergarments Electronics at Bedside: None Electronics Sent Home: None Jewelry at Bedside: None Jewelry Sent Home: None Miscellaneous Items at Bedside: None Miscellaneous Items Sent Home: None Personal Devices at Bedside: Dentures, lower, D entures, upper Personal Devices Sent Home: Dentures, lower, De ntures, upper I understand that [facility] is not responsible for any personal belongings/effects or valuables that have not been identified on the valuables and belongings list. Any personal effects brought into the facility and not record ed on the valuables and belongings form are the responsibility of the patient/family/significant other.I have received the indicated patient education materials/instructions and medication list and have verbalized understa nding. 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 Signature: Relationship to Patient: Witness Signature: Date/Time: Procedure Note Patient: JOSEPH VALDIVIA MRN: [id number] 12/05/2021 [facility] Age: 81 years Sex: F : 1940 Active Insu osman: MEDICARE [phone] [facility] Admitting MD: Location: [facility] A2: OFA2: 15 PCP: Carol Godinez MD Author: Jg Frye MD Procedure: Peripheral Angiogram Angioplasty of the right ant erior tibialis artery, popliteal artery, posterior tibialis artery and tibioperoneal trunk. Indication for the procedure: Rest claudication Procedure: The patient underwent aortog tanmay with peripheral angiogram. Informed consent was obtained prior to the procedure. The patient was brought to the Catheterization lab and placed on the table in supine position. Left groin was prepped and d raped in sterile fashion. Arterial access was obtained under fluoroscopy using micropuncture catheter. Angiogram was performed which showed stick in the common femoral artery . 5F sheath was then placed using modified Seldi nger technique. Left lower extremity selective angiogram was per formed from the sheath. Advantage pro glide wire was then placed using RIM catheter over the iliac arteries and in to the contralateral SFA. Angiogram was then performed. Intervention: Once occluded vessels were identified. Pedal access approach was applied. Right anterior tibialis artery pedal access was obtained using ultrasound and a 4/5 Citizen Of [place] sheath was placed. Usin g command wire and 018 [place] cross, lesion was crossed. Angioplasty was performed with a 3.0 x 100 mm balloon. Angiogram after the new plasty showed excellent result with lesion reduced to less than 10%. Posterior tibialis artery a ccess within obtained using ultrasound. Same wire and balloon were advanced. Lesion was crossed and angioplasty was performed. Lesion was reduced to less than 10%. Intra-prachi rial nitroglycerin was used prior to final angio gram. Angioplasty of the right dis jenna popliteal artery, anterior tibialis artery, TP trunk and posterior tibialis artery were performed. At the end of the procedure, Angio-Seal was used to achieve local hemostasis. complications: none EBL: < 10 cc Conscious Sedation time: The patient was monitored with RN during and after the procedure for respiratory status. Conscious sedation was administered. Total monitoring time is: 60 minutes Findings: Right: Common femoral artery: patent without any signif icant stenosis Superficial femoral artery: patent without any s ignificant stenosis Profunda femoris artery: patent without any sign ificant stenosis Popliteal artery: patent without any sig nificant stenosis distal 100% occluded Anterior tibialis artery: Pr oximal 100% occluded, mid to distal patent without any significant stenosis TPT trunk: 100% occluded Posterior tibial artery: Proximal to 100% occlud ed mid to distal is patent Peroneal artery: Proximal 100% occluded Left: Common Iliac artery: patent without any signific ant stenosis External Iliac artery: patent without any signif icant stenosis Internal Iliac artery: patent without any signif icant stenosis Common femoral artery: patent without any signif icant stenosis Superficial femoral artery: patent without any significant stenosis. distal focal 80% disease noted Profunda femoris artery: patent without any sign ificant stenosis Popliteal artery: Mid 100% occluded Anterior tibialis artery: Patent. 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 Successful angioplasty of the right distal popliteal artery, anterior tibia lis artery, TP trunk and pos terior tibialis artery with lesion reduced to less than 10%. Plan: maximize medical management Lifestyle modifications Dual antiplatelet therapy High intensity statin Staged angioplasty/intervention of the left lowe r extremity. Electronically Signed By: Jg Frye MD On 12/05/21 15:49 Co Signature By: Modify Signature By: Non Cardiac AO with RO - RIGHT LEG INTERVENTION VIA LEFT MICHEL IN 12/05/2021 [facility] Catheterization PATIENT INFORMATION Medical Bet[address] ter Patient Name JOSEPH VALDIVIA Study Date 12/05/2021 Study Number [id number] Date of 1940 Age 81 Years Gender Female Race Height 165.00 cm (5 ft. 5 in.) Weight 58.00 kg (128 lbs) BSA 1.63 m2 STAFF Duty Name IN OUT -- -------- -------- Smith Production Assembly Supervisor Jg Frye MD 13:51:44 Cell Stripper Leroy Crum RN 13:51:47 Monitor Leroy Crum RN 13:51:49 Scrub Juan Antonio Pacheco, FINANCIAL QUANTITATIVE ANALYST 13:52:02 X-Ray Tech Rafael Ye, RT 13:52:05 PROCEDURES Time Procedure -------- 13:52:07 Case done by Cath Code 1: [id number] Code 2: Code 3: Code 4: 13:52:09 Scheduled Code 1: Code 2: Code 3: Code 4: 13:52:10 Out Patient Code 1: Code 2: Code 3: Code 4: 13:52:11 Moderate Sedation, initial 30 min Code 1: [id number] Code 2: Code 3: Code 4: 14:40:16 US guidance for access Code 1: [id number] Code 2: Code 3: Code 4: 14:40:18 Art Access - L femoral artery* Code 1: Code 2: Code 3: Code 4: 14:58:39 Art Access - R pedal Artery Code 1: Code 2: Code 3: Code 4: 14:58:40 US guidance for access Code 1: [id number] Code 2: Code 3: Code 4: 15:45:15 Long leg runoff to feet Code 1: [id number] Code 2: Code 3: Code 4: 15:45:17 Closure Device Placement Code 1: [id number] Code 2: Code 3: Code 4: 15:45:20 Angio, selective, add'l vessel study Code 1: [id number] Code 2: Code 3: Code 4: 15:45:49 CEPHALOMETRIC ANALYST Tib Trunk Code 1: [id number] Code 2: Code 3: Code 4: Pressure Summary (mmHg) Baseline Time Site Sys Marshall End Mean A Wave V Wave Max dp /dt HR (BPM) -------- ---- ---- ---- ---- ---- ------ ------ --------- ------- 14:43:59 AO 128 52 0 80 71 Pressures Used in Calculation (mmHg) Baseline Time Site Sys Marshall End Mean A Wave V Wave Max dp /dt HR (BPM) -------- ---- ---- ---- ---- ---- ------ ------ --------- ------- 14:43:59 AO 128 52 0 80 71 Cardiac Output Results-M Phase Manual C.O. Manual C.I. TDCO TDCI Manuela C.O . Manuela C.I. HR (l/min) (l/min/m2) (l/min) (l/min/m2) (l/min) ( l/min/m2)(BPM) -------- ------- ------- --- --------- ---- Baseline Blood Flow Results-M Baseline Group Sat (%) Content (ml/dl) ----- ------- PV SA PA MV VO2 VO2 (ml/min): VO2 Source: Manuela CO (l/min): Manuela CI (l/min/m2): A-VO2 Diff (ml/dl): Shunt Results Indexed Indexed Values Values (l/min/m2) (l/min/m2) Qp per Qs: EPBF (l/min): L->R Flow (l/min): Qp (l/min): R->L Flow (l/min): Qs (l/min): Resistance Results (Metric Units) Phase PVR SVR PVR-I SVR-I TPR TVR TPR-I TVR-I PV R/ TPR/ SVR TVR -------- ---- ----- ----- ----- ---- ----- ----- ----- ---- ---- Baseline Resistance Results (Wood Units) Phase PVR SVR PVR-I SVR-I TPR TVR TPR-I TVR-I PV R/ TPR/ SVR TVR -------- ---- ----- ----- ----- ---- ----- ----- ----- ---- ---- Baseline Stroke Work Results-M Phase RVSW LVSW RVSW-I LVSW-I (gm*m) (gm*m) (gm*m/m2) (gm*m/m2) -------- ----- ----- --------- --------- Baseline Intervention Summary Intervention Type:Peripheral Lesion Number: 1 Coronary Segment: Anterior tibial Initial Stenosis (%): Residual Stenosis (%): Pre JAYDEN Flow: Post JAYDEN Flow: Previously Treated Lesion: Lesion Complexity: In graft to cited segment: Perforation: Significant Dissection: No Acute Closure: Guidewire Crossing: Successful Reopening: Treatment: 1 Treatment Type: Balloon Primary Indication: Success Indication: Time Attempt Attributes Duration -------- -------- 15:13:24 Reggie: 12 120 15:14:07 Reggie: 12 60 15:28:49 Reggie: 12 180 15:37:16 Reggie: 10 240 Supply Name Usage ----- COYOTE [id number] OTW, [id number] OTW Conscious Sedation Pre-Study Conscious Sedation Assessments Activity: 2 - Able to move 4 extremities volunt arily or on command Respirations: 2 - Able to breathe deeply and co ugh freely Circulation: 2 - BP +/- 20% of pre-anesthetic l evel Consciousness: 2 - Fully Awake O2 Saturation: 2 - Able to maintain O2 saturati on greater than 92% on room air Pre-study Totals: 10 Comment: Post-Study Conscious Sedation Assessments Activity: 2 - Able to move 4 extremities volunt arily or on command Respirations: 2 - Able to breathe deeply and co ugh freely Circulation: 2 - BP +/- 20% of pre-anesthetic l evel Consciousness: 2 - Fully Awake O2 Saturation: 2 - Able to maintain O2 saturati on greater than 92% on room air Post-study Totals: 10 Comment: Medication Events-M Start Stop Medication Amount Route -------- -------- ------ ----- 14:36:30 Fentanyl 25 mcg IV Ordered By: Jg Frye MD Given By: Leroy Crum RN Type: Opioid Billing Code: 14:36:36 Versed 1 mg IV Ordered By: Jg Frye MD Given By: Leroy Crum RN Type: Sedative Billing Code: 14:37:59 1% Lidocaine 20 ml Subcut Ordered By: Jg Frye MD Given By: Jg Frye MD Type: Local Anesthetic Billing Code: 14:48:08 Fentanyl 25 mcg IV Ordered By: Jg Frye MD Given By: Leroy Crum RN Type: Opioid Billing Code: 14:48:18 Versed 1 mg IV Ordered By: Jg Frye MD Given By: Leroy Crum RN Type: Sedative Billing Code: 14:57:20 1% Lidocaine 2 ml Subcut Ordered By: Jg Frye MD Given By: Jg Frye MD Type: Local Anesthetic Billing Code: 15:02:43 Heparin 5000 units IV Ordered By: Jg Frye MD Given By: Leroy Crum RN Type: Anticoagulant Billing Code: 15:32:38 Nitroglycerin 500 mcg IA Ordered By: Jg Frye MD Given By: Jg Frye MD Type: Direct Vasodilator Billing Code: 15:36:21 Heparin 2000 units IV Ordered By: Jg Frye MD Given By: Leroy Crum RN Type: Anticoagulant Billing Code: 15:36:45 Fentanyl 25 mcg IV Ordered By: Jg Frye MD Given By: Leroy Crum RN Type: Opioid Billing Code: 15:37:35 Nitroglycerin 500 mcg IA Ordered By: Jg Frye MD Given By: Jg Frye MD Type: Direct Vasodilator Billing Code: 15:47:01 Aspirin 325 mg PO Ordered By: Jg Frye MD Given By: Leroy Crum RN Type: Antiplatelet Billing Code: 15:47:09 Plavix 300 mg PO Ordered By: Jg Frye MD Given By: Leroy Crum RN Type: Antiplatelet Billing Code: VITALS Insp Exp SpO2 HR BP CO2 CO2 RR Temp Time (%) (BPM) (mmHg) (mmHg) (mmHg) (/min) (deg C) LOC -------- ----- ----- ----- ----- --- -- ------ ----- 14:35:09 100 72 125/58/84 0.0 0.0 22 2 14:39:59 100 73 109/54/78 0.0 0.0 10 2 14:44:56 99 71 122/58/83 0.0 0.0 14 1 14:50:01 96 72 104/52/74 0.0 0.0 14 1 14:54:41 99 77 110/58/79 0.0 0.0 16 1 14:59:41 100 72 109/57/79 0.0 0.0 16 1 15:04:56 99 74 113/56/80 0.0 0.0 19 1 15:09:48 100 75 103/55/75 0.0 0.0 18 1 15:14:43 100 72 100/56/74 0.0 0.0 17 1 15:19:53 100 78 115/55/79 0.0 0.0 15 1 15:24:43 100 72 117/58/81 0.0 0.0 16 1 15:29:55 100 72 118/58/83 0.0 0.0 17 1 15:34:56 100 78 99/58/76 0.0 0.0 20 1 15:39:43 100 77 98/53/73 0.0 0.0 19 2 15:44:54 99 79 101/55/74 0.0 0.0 16 2 15:48:01 100 76 95/57/72 0.0 0.0 10 2 15:50:22 100 69 99/57/75 0.0 0.0 16 2 Event Log-M Time Summary/Comment -------- 13:46:22 Phase: Baseline 13:51:37 Pre Case Documentation 13:52:07 Procedure: Case done by Anisha EDWARDS 13:52:09 Procedure: Scheduled 13:52:10 Procedure: Out Patient 13:52:11 Procedure: Moderate Sedation, initial 3 0 min 13:52:15 Case Event Type:Diagnostic PV,Physician :Jg Frye A 13:52:22 [facility] 13:52:22 Verify Patient's Identity Using Two Pat ient Identifiers 13:: Consent Signed and On Chart 13:52:22 Verbally Verify Site and Side with the Patient or Designee 13:52:22 Verify All Relevant Documentation prese nt, i.e. H&P 13::22 Verify Availability of Properly Labeled drugs and Radiology Resu 13:52:22 Verify Availability of blood/products, Devices, Equipment Neede 13:52:22 Pre-procedure Teaching Performed Includ ing Conscious Sedation 13:52:22 Pre-procedure Teaching Performed Includ ing Invasive Line Placeme 13:52:22 Patient Verbalized Understanding Of Pro cedure 13:52:22 Pre-Procedure Immediately Prior to [facility] Room 13:52:22 Verbally Verify Site and Side with the Patient or Designee 13:52:22 Armband Checked and On Patient 13:52:25 Lab Results Checked and Documented 14:34:21 Patient on Table 14:34:22 Patient Placed on 02 by NC at 3L 14:34:34 Physician Arrived 14:34:35 ASA ASSESSMENT FORM 14:35:04 PRE CASE EKG 14:35:09 SpO2 100%; HR 72 bpm; 125/58/84 NBP; LO C 2; RR 22/min INSP: 0 mmHg; EXP: 0 mmHg; 14:36:24 Time Out Taken 14:36:24 Pre Procedural Pause with all staff and Physician present 14:36:24 Correct Patient Name Verified 14:36:24 Correct Patient Birthdate Identified 14:36:24 Correct Procedure Verified 14:36:24 Correct Physician Verified 14:36:24 Correct Site Verified 14:36:30 Fentanyl IV 25 mcg 14:36:36 Versed IV 1 mg 14:37:54 Case Start 14:37:54 MANIFOLD KIT ANGIO CUSTOM 14:37:55 1% Lidocaine Administered To: LEFT GROI N 14:37:59 1% Lidocaine Subcut 20 ml 14:39:31 Pre-Case: Conscious Sedation/Ignacio 14:39:36 ETCO2 Waveform Assessment + 14:39:38 Patient Allergies: See Custom Form. 14:39:51 Stop Bang Score = 1 14:39:53 MD informed of STOP BANG Score 14:39:53 Fire Risk Assessment= 3 14:39:59 SpO2 100%; HR 73 bpm; 109/54/78 NBP; LO C 2; RR 10/min INSP: 0 mmHg; EXP: 0 mmHg; 14:40:01 Patient educated re: groin/wrist prepar ation. 14:40:02 Heparinized Saline 2units/ml 500mls 14:40:02 Patient states understanding of prep an d agrees to proceed 14:40:02 Patient prepped using sterile technique 14:40:02 ___Heparinized saline added to sterile field 14:40:13 Percutaneous Puncture To: 14:40:16 Procedure: US guidance for access 14:40:18 Procedure: Art Access - L femoral arter y* 14:43:41 Sheath Inserted Into: 14:43:51 DES099 5Fr x 10cm [place] 14:43:59 AO : 128/52/80, HR = 71, II 14:43:59 Snapshot: AO : 128/52/80 14:44:04 Hand Injection of: LLE 14:44:16 5F X 65CM OMNI FLUSH 14:44:20 GLIDEWIRE ADVANTAGE ANGLED .[id number] 14:44:56 SpO2 99%; HR 71 bpm; 122/58/83 NBP; LOC 1; RR 14/min INSP: 0 mmHg; EXP: 0 mmHg; 14:45:53 OMNI FLUSH Catheter Inserted 14:46:56 GLIDEWIRE ADVANTAGE Guidewire Inserted 14:48:08 Fentanyl IV 25 mcg 14:48:18 Versed IV 1 mg 14:48:24 Hand Injection of: RLE 14:50:01 SpO2 96%; HR 72 bpm; 104/52/74 NBP; LOC 1; RR 14/min INSP: 0 mmHg; EXP: 0 mmHg; 14:54:41 SpO2 99%; HR 77 bpm; 110/58/79 NBP; LOC 1; RR 16/min INSP: 0 mmHg; EXP: 0 mmHg; 14:55:55 RIGHT FOOT PREPPED AND DRAPED 14:57:14 1% Lidocaine Administered To: R DP 14:57:20 1% Lidocaine Subcut 2 ml 14:58:36 Percutaneous Puncture To: 14:58:39 Procedure: Art Access - R pedal Artery 14:58:40 Procedure: US guidance for access 14:59:41 SpO2 100%; HR 72 bpm; 109/57/79 NBP; LO C 1; RR 16/min INSP: 0 mmHg; EXP: 0 mmHg; 15:01:41 0.014 x 300 AimetisORBramasol Command Guidewire 0. [id number] 15:02:43 Heparin IV 5,000 units 15:02:53 Sheath Inserted Into: 15:02:59 4Fr x 10cm [place] Sheath 15:03:06 .018 NAVICROSS 150CM 15:03:16 NAVICROSS INSERTED OVER THE COMMAND WIR E 15:04:56 SpO2 99%; HR 74 bpm; 113/56/80 NBP; LOC 1; RR 19/min INSP: 0 mmHg; EXP: 0 mmHg; 15:09:48 SpO2 100%; HR 75 bpm; 103/55/75 NBP; LO C 1; RR 18/min INSP: 0 mmHg; EXP: 0 mmHg; 15:12:27 Balloon Catheter Inserted 15:13:16 [id number] OTW COYOTE [id number] OTW 15:13:24 Balloon inflated for 120 sec @ 12 reggie i n the Anterior tibial. 15:14:07 Balloon inflated for 60 sec @ 12 reggie in the Anterior tibial. 15:14:43 SpO2 100%; HR 72 bpm; 100/56/74 NBP; LO C 1; RR 17/min INSP: 0 mmHg; EXP: 0 mmHg; 15:16:23 Post Injection 15:17:12 CEPHALOMETRIC ANALYST Balloon Removed 15:17:56 ACT DRAWN 15:19:53 SpO2 100%; HR 78 bpm; 115/55/79 NBP; LO C 1; RR 15/min INSP: 0 mmHg; EXP: 0 mmHg; 15:22:42 ACT 225 15:24:43 SpO2 100%; HR 72 bpm; 117/58/81 NBP; LO C 1; RR 16/min INSP: 0 mmHg; EXP: 0 mmHg; 15:28:31 Balloon Catheter Inserted 15:28:49 Balloon inflated for 180 sec @ 12 reggie i n the Anterior tibial. 15:29:55 SpO2 100%; HR 72 bpm; 118/58/83 NBP; LO C 1; RR 17/min INSP: 0 mmHg; EXP: 0 mmHg; 15:32:38 Nitroglycerin IA 500 mcg 15:34:56 SpO2 100%; HR 78 bpm; 99/58/76 NBP; LOC 1; RR 20/min INSP: 0 mmHg; EXP: 0 mmHg; 15:36:21 Heparin IV 2,000 units 15:36:45 Fentanyl IV 25 mcg 15:37:16 Balloon inflated for 240 sec @ 10 reggie i n the Anterior tibial. 15:37:35 Nitroglycerin IA 500 mcg 15:38:17 CEPHALOMETRIC ANALYST Balloon Removed 15:38:18 Artery Visualized 15:39:08 GUIDEWIRE REMOVED 15:39:14 Guidecath and Guidewire Removed 15:39:43 SpO2 100%; HR 77 bpm; 98/53/73 NBP; LOC 2; RR 19/min INSP: 0 mmHg; EXP: 0 mmHg; 15:41:01 Groin Management 15:44:15 Closure Device Deployed in: 15:44:18 ANGIOSEAL VIP 6FR 15:44:54 SpO2 99%; HR 79 bpm; 101/55/74 NBP; LOC 2; RR 16/min INSP: 0 mmHg; EXP: 0 mmHg; 15:44:58 TR Band Applied __10___cc's 15:45:01 TR BAND REG 15:45:15 Procedure: Long leg runoff to feet 15:45:17 Procedure: Closure Device Placement 15:45:20 Procedure: Angio, selective, add'l vess el study 15:45:49 Procedure: CEPHALOMETRIC ANALYST Tib Trunk 15:45:53 Complication: No complications 15:45:53 Complication: No Sedation Complications 15:45:57 Contrast: Isovue 300 45 ml 15:46:35 POST CASE EKG 15:47:01 Aspirin PO 325 mg 15:47:09 Plavix PO 300 mg 15:47:20 Case End 15:48:01 SpO2 100%; HR 76 bpm; 95/57/72 NBP; LOC 2; RR 10/min INSP: 0 mmHg; EXP: 0 mmHg; 15:50:22 SpO2 100%; HR 69 bpm; 99/57/75 NBP; LOC 2; RR 16/min INSP: 0 mmHg; EXP: 0 mmHg; 15:50:35 Post Case Documentation ____ 15:50:36 Hemostasis Obtained 15:50:36 Sterile Dressing Applied To Site 15:50:36 Post Procedure Teaching Performed 15:50:36 Patient Verbalizes Understanding Of Tea kike 15:50:36 Final EtCO2 Waveform Assessment same as Baseline 15:50:36 . 15:51:34 SBAR Report Called To: FERNANDO 15:51:34 Discharge Conscious Sedation/Ignacio Pr ior to Transfer 15:55:45 Patient Transferred to: [facility] 4 Supplies Summary Time Product Line Manager Item Name (Model) -------- 14:37:54 [facility] Headstrong MANIFOLD KIT ANGIO CUSTOM Size: Serial #: Lot #: Part Number: [id number] Billing Code: [id number] 14:40:02 Heparinized Saline 2units/ml 500mls Size: Serial #: Lot #: Part Number: [id number] Billing Code: 14:43:51 sailsquare 5Fr x 10cm [place] Size: [id number] Serial #: Lot #: Part Number: [id number] Billing Code: [id number] 14:44:16 [employer] OMNI FLUSH Size: 5F X 65CM Serial #: Lot #: Part Number: [id number] Billing Code: [id number] 14:44:20 sailsquare GLIDEWIRE ADVANTAGE ANGL ED .[id number] Size: Serial #: Lot #: Part Number: [id number] Billing Code: [id number] 15:01:41 [employer] HITORQ Command Guidewir e [id number] Size: 0.014 x 300 Serial #: Lot #: Part Number: [id number] Billing Code: [id number] 15:02:59 [employer] 4Fr x 10cm [place] Queen th Size: Serial #: Lot #: Part Number: [id number] Billing Code: [id number] 15:03:06 .018 NAVICROSS 150CM Size: Serial #: Lot #: Part Number: [id number] Billing Code: [id number] 15:13:16 COYOTE [id number] OTW Size: [id number] OTW Serial #: Lot #: Part Number: [id number] Billing Code: [id number] 15:44:18 [employer] ANGIOSEAL VIP 6FR Size: Serial #: Lot #: Part Number: [id number] Billing Code: [id number] 15:45:01 [employer] TR BAND REG Size: Serial #: Lot #: Part Number: [id number] Billing Code: [id number] Contrast-M Time Contrast Amount (ml) -------- 15:45:57 Isovue 300 45 Radiology Summary Total Runs: Total Cine Frames: Cine Archive CD Identification (ID): Diagnostic Interventional Total Fluoro Time (minutes): 4.00 4.00 Exam Record Exam Fluoro Exam Total DAP DAP DAP Dose Area Product (cGycm2): 24618.00 92110.00 Complications Time Complication -------- - 15:45:53 No complications 1545:53 No Sedation Complications Custom Forms Pre Procedure Labs -- WBC: 3.2 Pre Procedure Labs -- Platelets: 291 Pre Procedure Labs -- PT: 12.4 Pre Procedure Labs -- Max Con: 272 Pre Procedure Labs -- Potassium 3.8 Pre Procedure Labs -- Cr Cl: 68 Pre Procedure Labs -- Date of Labwork 12/05/2021 Pre Procedure Labs -- Hct: 26 Pre Procedure Labs -- Bun: 12 Pre Procedure Labs -- INR: 1.08 Pre Procedure Labs -- Creatinine 0.71 Pre Procedure Labs -- Hgb: 9 Pre Procedure Labs -- PTT: 30.9 Discharge Ignacio -- Time: 15:51:35 Discharge Ignacio -- Total 12 Discharge Ignacio -- O2 Saturation: 2: Has level >90% when breathing room air Discharge Ignacio -- Activity: 2:Moves 4 extremities Voluntarily/Comm and Discharge Ignacio -- Consciousness: 2: Fully awake, alert and orienta jose a Discharge Ignacio -- Circulation: 2: BP is 0-20mmHG from pre-sedation level Discharge Ignacio -- Resirations: 2: Breathes deeply and coughs freel y Discharge Ignacio -- Pain Level: 2:None, or minimal Discharge Ignacio -- Date: 12/05/2021 IV Information -- IV Location #1 R AC IV Information -- Rate (ml per hour) 100 IV Information -- IV Fluids NS Allergies -- Allergies: NKDA ASA Form -- Mallampati Airway Class Class II ASA Form -- Pain Assessment per pain scale 0-10 0 ASA Form -- NPO Since MIDNIGT ASA Form -- Time 14:34:35 ASA Form -- Allergies: NKDA ASA Form -- Plan for Sedation Moderate ASA Form -- History on Chart Between 1-30 days with updated signature, date and time ASA Form -- ASA SCORE ASA II - Mild systemic disease that do es not limit function ASA Form -- Airway Assessment Normal ASA Form -- Date 12/05/2021 Discharge Instructions [facility] 01/29/2021 [facility] Document [address] [place] [address] JOSEPH VALDIVIA :1940 (EV) Visit Date:01/29/2021 Inpatient Discharge Instructions Your Care Team Attending Physician - Helen Black MD Lifetime Physician(PCP) - Devineni, Carol J MD Discharge Vitals Heart Rate 68 Respiratory R ate 16 Blood Pressure 108/58 Height 165.1 cm Weight 59.864 kg BMI 21.96 What to do next You May Need to Schedule the Following Appointme nts Follow Up with Helen Black MD, Med - Oncology, OB - Gynecology / Oncology When Within As scheduled Where: [address] [place] [address] [phone] We encourage you to sign up for My Portal, where you can easily access your medical records and test results from all [facility]. Please sign up in one of the following ways: 1. Email invitation. You may have a message in your inbox. Please click the link provided to create an account. OR 2. Request an invitation at your next clinic or hospital visit. Please ask a staff member and they will be happy to assist you. Medications What How Much When Instructions Next Dose Unchanged aspirin 81 Milligram By mouth Every m orning Unchanged calcium-vitamin D (Calcium 600 +D Tab) 1 tab(s) By mouth Three times daily Unchanged cholecalciferol ( Vitamin D3 5,000 Unit oral capsule) 1 cap By mouth Once daily with food Unchanged cyanocobalamin (V itamin B12 50 mcg oral tablet) 1 tab(s) By mouth Every morning Unchanged enoxaparin 60 Milligram subcutaneousl y Twice daily Unchanged melatonin 9 Milligram By mouth Every bedtime Unchanged multivitamin with minerals (Centrum Silver Women's oral tablet) 1 tab(s) By mouth Once daily Unchanged olaparib (Lynparz a 100 mg oral tablet) 2 tab(s) By mouth Twice daily Unchanged saccharomyces tahir lardii (Florastor) 250 Milligram By mouth Twice daily Unchanged warfarin. (warfarin) 5 Milligram By m outh Every Wednesday Unchanged warfarin. (warfar in) 10 Milligram By mouth Once daily DAILY EXCEPT WEDNESDAY Discharge Orders Discharge Orders: Discharge Today, Home or self care, may dc in 1 -2 hours if stable Education Materials Discharge Instructions After Sedation/Anesthesia, Adult The medicines you received during the procedure or test today can sometimes cause you to be confused, sleepy, dizzy, and clumsy. You need to be extra careful for the next 24 hours. HOME CARE INSTRUCTIONS: Do not engage in any activi ty that requires you to be alert or coordinated for the next 24 hours. This includes driving, operating heavy machinery, using power tools, cooking, climbing, or riding a bicycle. No swimming, hot tubs, or baths for the next 24 hours. Stay with family, friends, or a caregiver for t he next 24 hours. Do not make any important d ecisions in the next 24 hours such as signing contracts, important commitments, or making expensive purchases. Do not drink alcohol for 24 hours. Avoid solid food if you hav e nausea (feeling sick to your stomach) or vomiting. Drink plenty of fluids. Take only medications prescribed by your caregi tamara in the dose prescribed. Call your caregiver for persistent naus ea and/or if you vomit more than once. If you cannot reach your ca regiver, go to or contact the Emergency Department. FREQUENTLY ASKED QUESTIONS ABOUT Surgical Site Infections What is a Surgical Site Infection (SSI) A surgical site infection i s an infection that occurs after surgery in the part of the body where the surgery took place. Most patients who have surgery do not develop an infection. However, infections develop in about 1 to 3 out of every 100 patien ts who have surgery. Some of the common symptoms of a surgical site infection are: ? Redness and pain around the area where you had surgery ? Drainage of cloudy fluid from your surgical wou nd ? Fever Can SSIs be treated Yes. Most surgical site inf ections can be treated with antibiotics. The antibiotic given to you depends on the bacteria (germs) causing the infection. Sometimes patients with SSIs also need another surgery to treat the infection. What are some of the things that hospitals are doing to prevent SSIs To prevent SSIs, doctors, nurses, and other [facility] lthcare providers: ? Clean their hands and arms up to their elbows with an antiseptic agent just before the surgery. ? Clean their hands with soap and water or an alcohol-based hand rub before and after caring for each patient. ? May remove some of your saundra r immediately before your surgery using electric clippers if the hair is in the same area where the procedure will occur. They should not shave you with a razor. ? Wear special hair covers, m asks, gowns, and gloves during surgery to keep the surgery area clean. ? Give you antibiotics before your surgery starts. In most cases, you should get antibiotics within 60 minutes before the surgery starts and the antibiotics should be stopped within 24 hours after surgery. ? Clean the skin at the site of your surgery with a special soap that kills germs. What can I do to help prevent SSIs Before your surgery: ? Tell your doctor about othe r medical problems you may have. Health problems such as allergies, diabetes, and obesity could affect your surgery and your treatment. ? Quit smoking. Patients who smoke get more infections. Talk to your doctor about how you can quit before your surgery. ? Do not shave near the area where you will have surgery. Shaving with a razor can irritate your skin, making it easier to develop an infection. At the time of your surgery: ? Speak up if someone tries t o shave you with a razor before surgery. Ask why you need to be shaved and talk with your surgeon if you have any concerns. ? Ask if you will receive antibiotics before surg amira. After your surgery: ? Make sure that your healthc are providers clean their hands before examining you, either with soap and water or an alcohol-based hand rub. ? If you do not see your providers clean their hands, please ask them to do so. ? Family and friends who visi t you should not touch the surgical wound or dressings. ? Family and friends should c lean their hands with soap and water or an alcohol- based hand rub before and after visiting you. If you do not see them clean their hands, ask them to clean their hands. What do I need to do when I go home from the [facility] ? Before you go home, your do ctor or nurse should explain everything you need to know about taking care of your wound. Make sure you understand how to care for your wound before you leave the hospital. ? Always clean your hands before and after caring for your wound. ? Before you go home, make vela re you know who to contact if you have questions or problems after you get home. ? If you have any symptoms of an infection, such as redness and pain at the surgery site, drainage, or fever, call your doctor immediately. If you have questions, please ask your doctor o r nurse. Implanted Port Removal, Care After This sheet gives you inform ation about how to care for yourself after your procedure. Your health care provider may also give you more specific instructions. If you have problems or questions, contact your health care provider. What can I expect after the procedure After the procedure, it is common to have: ? Soreness or pain near your incision. ? Some swelling or bruising near your incision. Follow these instructions at home: Medicines ? Take jrtb-lom-wvralfr and p rescription medicines only as told by your health care provider. ? If you were prescribed an a ntibiotic medicine, take it as told by your health care provider. Do not stop taking the antibiotic even if you start to feel better. Bathing ? Do not take baths, swim, or use a hot tub until your health care provider approves. Ask your health care provider if you can take showers. You may only be allowed to take sponge baths. Incision care ? Follow instructions from yo health care provider about how to take care of your incision. Make sure you: Wash your hands with soap a nd water before you change your bandage (dressing). If soap and water are not available, use hand documentation liaison. Change your dressing as told by your health car e provider. Keep your dressing dry. Leave stitches (sutures), s kin glue, or adhesive strips in place. These skin closures may need to stay in place for 2 weeks or longer. If adhesive strip edges start to loosen and curl up, you may trim the loose edges. Do not mitali ve adhesive strips completely unless your health care provider tells you to do that. ? Check your incision area every day for signs of infection. Check for: More redness, swelling, or pain. More fluid or blood. Warmth. Pus or a bad smell. Driving ? Do not drive for 24 hours i f you were given a medicine to help you relax (sedative) during your procedure. ? If you did not receive a se dative, ask your health care provider when it is safe to drive. Activity ? Return to your normal activ ities as told by your health care provider. Ask your health care provider what activities are safe for you. ? Do not lift anything that i s heavier than 10 lb (4.5 kg), or the limit that you are told, until your health care provider says that it is safe. ? Do not do activities that involve lifting your arms over your head. General instructions ? Do not use any products tarik t contain nicotine or tobacco, such as cigarettes and e-cigarettes. These can delay healing. If you need help quitting, ask your health care provider. ? Keep all follow-up visits a s told by your health care provider. This is important. Contact a health care provider if: ? You have more redness, swelling, or pain around your incision. ? You have more fluid or blood coming from your i ncision. ? Your incision feels warm to the touch. ? You have pus or a bad smell coming from your in cision. ? You have pain that is not relieved by your pain medicine. Get help right away if you have: ? A fever or chills. ? Chest pain. ? Difficulty breathing. Summary ? After the procedure, it is common to have pain, soreness, swelling, or bruising near your incision. ? If you were prescribed an a ntibiotic medicine, take it as told by your health care provider. Do not stop taking the antibiotic even if you start to feel better. ? Do not drive for 24 hours if you were g iven a sedative during your procedure. ? Return to your normal activ ities as told by your health care provider. Ask your health care provider what activities are safe for you. This information is not int ended to replace advice given to you by your health care provider. Make sure you discuss any questions you have with your health care provider. Document Revised: 11/03/2018 Document Reviewed: 11/03/2018 [employer] Patient Education ? 2020 [employer]. Clothes at Bedside: Pants, Shirt, Shoes, Socks, Undergarments Electronics at Bedside: Cell phone Jewelry at Bedside: None Miscellaneous Items at Bedside: None Personal Devices at Bedside: Dentures, lower, D entures, upper I understand that [facility] is not responsible for any personal belongings/effects or valuables that have not been identified on the valuables and belongings list. Any personal effects brought into the facility and not record ed on the valuables and belongings form are the responsibility of the patient/family/significant other.I have received the indicated patient education materials/instructions and medication list and have verbalized understa nding. 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 Signature: Relationship to Patient: Witness Signature: Date/Time: Operative Report 01/29/2021 [place] Patient: JOSEPH VALDIVIA ( EV) [facility] Age: 80 years Sex: F : 1940 Associated Diagnoses: None Author: Gaurav Talbot MD Operative Information Procedure: Procedure: removal of IVC filter and left chest port line. Preoperative Diagnosis: resolved DVT, port line no longer needed. Postoperative Diagnosis: Same. Performed by: Gaurav Talbot MD. Process Improvement Engineer: N/A. Findings: successful removal of the IVC filter,, and left chest port line. Specimens Removed: None. Estimated Blood Loss: None. Anesthesia Type: Local, IV Sedation. Complications: None. Notes: observe for 1-2 hours, full report to [facility]. Disposition: PACU. Patient status at the end of procedure:: Stable. Electronically Signed By: Gaurav Talbot MD On 01/29/21 10:48 Co Signature By: Modify Signature By: Discharge Instructions [facility] 06/03/20 [facility] Document [address] [facility] [place] [address] JOSEPH VALDIVIA :1940 (EV) Visit Date:05/31/2020 Inpatient Discharge Instructions Your Care Team Admitting Physician - Helen Black MD Attending Physician - Helen Black MD Lifetime Physician(PCP) - Carol Ruff MD Your Diagnosis Ovarian cancer Discharge Vitals Temperature 36.3 C (Oral) T MIN 36.3 C (Oral) TMAX 37 C (Oral) Heart Rate 66 Respiratory Rate 17 Blood Pressure 115/60 What to do next You May Need to Schedule the Following Appointm ents Follow Up with Helen Black MD When Within 1 t o 2 weeks Where: [address] [place] [address] [phone] We encourage you to sign up for My Portal, where you can easily access your medical records and test results from all [facility]. Please sign up in one of the following ways: 1. Email invitation. You ma y have a message in your inbox. Please click the link provided to create an account. OR 2. Self-enrollment. Please go to [email or web address] and fill out your information. Well send you a verification code to complete the process. OR 3. Request an invitation at your next clinic or hospital visit. Please ask a staff member and they will be happy to assist you. Medications What How Much When Instructions Next Dose Unchanged aspirin 81 Milligram By mouth Every m orning Unchanged atorvastatin 20 Milligram By mouth Ev amira bedtime Unchanged calcium-vitamin D (Calcium 600 +D Tab) 1 tab(s) By mouth Three times daily Unchanged carvedilol 6.25 Milligram By mouth Tw ice daily with meals Unchanged cholecalciferol ( Vitamin D3 5,000 Unit oral capsule) 1 cap By mouth Once daily with food Unchanged citalopram 10 Milligram By mouth Ever y morning Unchanged cyanocobalamin (V itamin B12 50 mcg oral tablet) 1 tab(s) By mouth Every morning Unchanged enoxaparin 60 Milligram subcutaneousl y Twice daily with meals Unchanged famotidine 20 Milligram By mouth Ever y bedtime Unchanged gabapentin 100 Milligram By mouth Fátima ry bedtime Unchanged guaiFENesin (guai FENesin 600 mg oral tablet, extended release) 1 tab(s) By mouth Twice daily with meals as needed for Cough Unchanged melatonin 9 Milligram By mouth Every bedtime Unchanged multivitamin with minerals (Centrum Silver Women's oral tablet) 1 tab(s) By mouth Once daily Unchanged saccharomyces tahir lardii (Florastor) 250 Milligram By mouth Twice daily with meals Unchanged senna 17.2 Millig tanmay By mouth Once daily as needed for as needed for constipation Unchanged warfarin. (warfarin) 5 Milligram By m outh Every Wednesday Unchanged warfarin. (warfar in) 10 Milligram By mouth Once daily DAILY EXCEPT WEDNESDAY Discharge Orders Discharge Orders: Discharge Today, Home or self care Discharge Activity Lifting limit < 10 lbs Discharge Diet Regular diet Education Materials [facility] [address] [place] [address] Admission Orientation Welcome to [facility]. You are a very important part of your care. While you are here, we will work together to get you ready for discharge and teach you how to care for yourself when you are discharged. We will explain what to expect before, during and after your treatments and procedures. You will also be receiving education specific to your disease and treatments. Please let us know if you have questions or concerns. Here are some important thi ngs that everyone needs to know about upon admission to our unit: CALL LIGHT The call light is located o n the TV Remote Control and also on each of the side rails of your bed. Use the call light to call your nurse when you have a question, concern, need help or need pain medication. There is also an Emergency Call Light in the Bathroom next to the toilet that you should use if you need help or assistance. You may also call the nurse caring for you directly. The phone number is written on the white board in your room. BED CONTROLS The bed controls are locate d on each of the upper side rails of your bed. You can move your head and feet up or down to make yourself more comfortable. Push the up or down arrow with the picture of the head to raise or lower the position of the head. Push the up or down arrow with the picture of the foot to raise or lower the position of the foot of the bed. While in the hospital, REMEMBER to change your position frequently to keep your skin healt hy. TELEPHONE The telephone is located on the nightstand next to your bed. You must first dial '9' and then the number you wish to call. If you need to make a long distance call, you must dial 0 for the hospital bin operator to assist you. TELEVISION The TV controls are also lo cated on the TV Remote Control. To turn it on, change channels or turn it off, press the button with the TV on it or the green on/off button. Use the up and down arrows to change the volume. VISITING HOURS We understand you want to v isit your loved ones when it is convenient for you. The hospital is open to visitors 24 hours a day , 7 days a week. In the Intensive Care Units , patients health information is discussed by the healthcare team from 10:00 AM to 11:00 AM; visitors must stay in the patient rooms with doors closed due to privacy issues. Family members wishing to b e with the patient throughout the night may sleep in the room except in the Intensive Care Units. In the Intensive Care Units , family members wishing to be with the patient throughout the night are asked to sleep in the waiting room and check on the patient through the night. Speak to the patient's nurse for more information. During cold and flu season, we restrict visitor s as needed. RAISING CONCERNS/COMPLAINTS REGARDING YOUR CARE OR SAFETY You and your family are enc ouraged to raise concerns or complaints if you have them. Exercising the right to do this will not affect your healthcare services in any way. If at anytime you have conc erns about patient care or safety, please speak to the echo vasc tech or Microarray Specialist. If they are unable to resol ve your concern/complaint, you can call the Customer Communication line at [phone]. If your concerns are not sa tisfactorily resolved through the hospital, you may contact the Joint Commission or the Department of Health Services: The Joint Commission: Call or email: [facility]: [address] [place] [address] Website: https://rafi.[place].gov/ls/online_compla int/MEDComplaint.aspx FAMILY RAPID RESPONSE is a lifeline to immediate help when a patient or loved one feels the patients condition has worsened and immediate medical attention is needed. Dial [id number] from any hospital phone. PREVENTING INFECTION Five things you can do to p revent infection (such as colds, flu and strep throat). A 'Speak Up' safety initiative by [employer] of [employer] Organizations 1. Clean your hands. Use soap and warm water. We t hands and apply soap. Rub your hands really well for at least 15 seconds. Rinse and dry. Use paper towel to turn water off. Or, if your hands do not lo ok dirty, clean them with alcohol-based hand sanitizers. Rub the documentation liaison all over your hands, especially under your nails and between your fingers, until your hands are dry . Children should be supervised when using this product. Clean your hands before ford kike or eating food. Clean them after you use the bathroom, take out the trash, change a diaper, visit someone who is ill, or play with a pet. Visitors and family members of patients should wash/clean their hands before entering the room to visit and any time they leave the room. 2. Make sure health care providers clean their hands and wear gloves. Doctors, nurses, dentists a nd other health care providers come into contact with lots of bacteria and viruses. So before they treat you, ask them if they've cleaned their hands. Health care providers shoul d wear clean gloves when they perform tasks such as taking throat cultures, pulling teeth, taking blood, touching wounds or body fluids, and examining your private parts. Don 't be afraid to gently remind them to wear glove s. 3. In the hospital, health care workers use barriers like gloves to protect the patients and themselves. While in the hospital a pat ient may have a specific germ that can be spread to others. These germs can be viruses or bacteria that cause illness. Some diseases and/or condit ions require the use of additional barriers, like gowns and/or masks and Isolation Precautions. Comply with additional isolation precautions. Signs are posted on/at patient doors when addit ional precautions are needed. All patients, visitors and staff are asked to follow the instructions posted on/at the patient door. Please ask your nurse if you have additional qu estions. Patients and families in [facility] should not use the common kitchen area, but should ask health care workers for items that they need. 4. Cover your mouth and nos e. Many diseases are spread through sneezes and coughs. When you sneeze or cough, the germs can travel 3 feet or more! Cover your mouth and nose to prevent the spread of infection to others. Use a tissue! Keep tissues handy at home, at work and in your pocket. Be sure to throw away used tissues and then clean your hands. If you don't have a tissue, cover your mouth and nose with the bend of your elbow or hands. If you use your hands, wash/clean them right away. 5. If you are sick, avoid close contact. If you are sick, stay away from other people. Stay home if you have a fever. Call work or school and tell them you are sick. When you go for medical ida atment, call ahead and ask if there's anything you can do to avoid infecting people in the waiting room. These steps can help preven t the spread of colds, the flu, and diseases like pneumonia, and strep throat. Remember to stay current on your immunizations. Fall Prevention Guidelines for Patient and Noei ly As a patient in the [facility], your condition and the treatments you receive can increase your risk for falls. Our desire is to minimize any fall risk for patients. It is important that you learn how to decrease fall risks during your stay at the hospital. Let your caregiver know if you have a history of falls or any conditions that make you feel weak, unsteady or light-headed. Also, let your caregive r know if you have any probl ems with your vision, or need to put on your glasses before getting up. FALLS MAY OCCUR IN THE HOSPITAL BECAUSE . . . Medications such as tranqui lizers, sleeping pills, pain relievers, blood pressure pills, water pills and insulin, among others, all may make you dizzy, dazed and/or confused. Your illness, enemas, laxat clint, long periods without food, tests or surgery may leave you weak and unsteady. You may have to use the restroom more than usua l while in the hospital. Lying down in bed for long periods of time can cause you to be dizzy and unsteady when you first get up. Your treatment requires med ical equipment with electrical cords and tubing, all of which can cause you to get tangled or to trip. The hospital is a new and u nfamiliar environment for you. This is worse at night. Falls can cause serious inj uries and often can be prevented if fall precautions are observed. If we think you are at a risk for falls, we may place a fall risk band on your wrist. This band immediately alerts all staff that you a re at a risk for falls. That way, they can work with you to take steps to prevent you from experiencing a fall. We may also place a sign in your room notifying your healthcar e team that you have a condi tion or a past history that increases your risk of falls. If you are at high risk of a fall, or have had a fall before, we may put a bed alarm or ringer on your bed to notify your caregiver when you are getting up so that they can come and assist you. Patients with a fall history may also be given hip protectors and/or helmets to prevent fall injuries. Below are the most important steps you can take to prevent a fall: SAFETY GUIDELINES FOR PREVENTING FALLS Your caregiver will tell yo u if it is safe for you to get out of bed by yourself or if you should always call for help before getting out of bed. Your caregiver may also offer to assist you in getting safely to the toilet whenever he/she is in your room. Call for help if you feel d princess or weak before getting out of bed. This is usually worse after sitting or lying for long periods. If you must get up without waiting for help, sit up in bed awhile befor e standing. Then get up care fully, and slowly begin to walk. If you feel dizzy or unsure of your footing, return to bed and wait for assistance. Generally, you should remai n lying or seated, rather than standing, while waiting for help. Be patient; someone will come to assist you as soon as possible. Wear rubber-soled or crepe- soled slippers or shoes whenever you walk in the hospital. Check with your caregiver if you do not have any. A mat may be placed on the floor next to your bed to reduce the chance of slipping on the floor. Do not remove restraints or tamper with side rails that may be in use. Side rails and restraints are reminders to stay in bed and are used to keep you safe. When you need help, use you r call light by your bed or in the bathroom. Wait for one of your caregivers to help you. Walk slowly and carefully w hen out of bed. Do not lean or support yourself on rolling objects such as intravenous poles or bedside tables. Ask your caregiver for help if your telephone, bedside table or call light are not within your easy reach. Falls can occur when reaching from bed and not just getting up. Ask your caregiver to put t he side rails of your bed up to prevent you from accidentally rolling out of bed. If you use a walker, be erin e that it is placed right beside your bed before your caregiver leaves your room. If you do not feel you are strong enough to safely make it to the bathroom, ask your caregiver for a bedside commode instead. Let your caregiver know if there is a spill on the floor. If your caregiver determine s you can get out of bed by yourself safely, always pay careful attention to the medical equipment, electrical cords and tubes around you. If you cannot get by the equipment, call your caregiver for assistance. Always turn on the light at nighttime before ge tting out of bed. When getting up from and in to bed, avoid being distracted by the TV, telephone, or another person in your room. Falls often occur when a person is distracted when moving from the bed or around their room. A SPECIAL NOTE FOR FAMILY MEMBERS AND FRIENDS Hospital staff members mckayla ot remain constantly at a patient's side. If necessary, make arrangements for a private-duty nurse, family member, or sitter to stay with your loved one. You may ask your caregivers if they hav e suggestions for times when a sitter would be most beneficial to the patient's comfort or peace of mind. Pain Management Pain is a sensation that hu rts. It can be described as stabbing, pinching or aching, causing discomfort, distress or agony. It may be steady or it may come and go. Pain may be acute or chronic. Acute p ain, such as the pain caused by surgery may, at times, be very painful, but will gradually lessen as the body heals. Chronic pain, such as pain caused by arthritis or cancer, may be less painful but may last for long periods of time. When you are injured, pain warns you to protect yourself and to avoid further injury. However, when your pain is unrelieved it can be harmful, especially when you are sick or after surgery. Pain can ma ke it difficult to take a de ep breath and may interfere with your ability to move and walk. It is important to know that with the treatments available today, most pain can be well controlled no matter t he type and the amount of pa in you feel. When your pain is well controlled, you can be more active, sleep better, eat better, and feel great. If you are recovering from surgery, controlling your pain can help you get well faster. Do the following: Be familiar with the pain s alethea. A pain scale is a number scale to measure your pain. A rating of 0 means you feel no pain at all, 5 means you feel a moderate amount of pain, and 10 means you feel the worst pain you can imagine. Your nurse or physician will teach you to describe the type and amount of pain you are having. 0 1 2 3 4 5 6 7 8 9 10 No Moderate Worst Pain Pain Pain If you know your pain may w orsen with an activity, take pain medicine first to prevent the pain. If pain does occur, dont wait for it to get worse before asking for pain medicine. The best time to manage pain is when it first starts. Report any changes in pain or new pain to your physician or nurse. If you have any concerns ab out addiction, talk to your doctor or nurse. Drug addiction is very rare in a person who is taking pain medicine for pain management. Taking pain medicine for pain management is not the same thing as addiction. Report the following side effects to your nurse or physician: Itching - Itching is not an allergic reaction but a fairly common side effect of pain medicine. Ask the nurse for medicine to relieve the itching when necessary. Nausea - Nausea can occur f rom pain medicine, and it can also be treated with medicine. Constipation - Pain medicin e slows the bowel and can cause constipation. If your condition allows, the nurse will give you medicine to prevent constipation. Excessive drowsiness and re spiratory depression - These are the most serious but least common side effects of pain medicine. Less than 1% of patients experience these effects. These two side effects de velop slowly. Nurses will be checking your sedation and breathing frequently. If detected, both are easily treated and corrected by decreasing the dose of pain medicine. Talk to your doctor or nurse if: You are experiencing pain You have questions about controlling your pain You have taken pain medicine and it is not work ing At [facility], we will work with you and your family to manage your pain. We believe that managing your pain is an important part of your care. PREVENTING BLOOD CLOTS AND VENOUS THOMBOEMBOLIS M (VTE) What is thromboembolism Blood flow is slower when t he body is not active. This can cause clots to form in the blood. A blood clot in a blood vessel is called a thrombus. If the clot breaks loose and plugs another vessel, it i s called thromboembolism. Th e blood clot can cause permanent injury to your body if it is not treated. Deep vein thrombosis (DVT) is a blood clot in one of the deep veins of the body, such as the leg or pelvis. This kind of clot can occur after surgery or long periods of bed rest. What are the signs and symptoms of deep vein th rombosis Pain felt deep in the leg Swelling and discoloration of the skin Sudden onset of pain Fever Pulmonary embolism (PE) is a serious condition where the arteries from the heart to the lungs are blocked. This happens when a blood clot travels to the lungs. Pulmonary embolism can be deadly, but michaelle ck treatment with anti-clott ing medications can reduce the risk of . Preventing blood clots in your legs can help protect you against pulmonary embolism. What are the signs and symptoms of pulmonary em bolism Chest pain: May get worse with deep bartolome athing, coughing, eating, and bending. Cough: Begins suddenly, may cough up blood or b lood-streaked sputum Rapid breathing Rapid heart rate Shortness of breath, may occur at rest or durin g activity, starts suddenly Why is prevention important Preventing clots is easier than treating them after they have happened. A blood clot can break off from the deep vein and travel to the lungs or other important organs. A blood clot can block blood flow to the tissues and ulcers or sores can result. How are deep vein thrombosis (DVT) and pulmonar y embolus (PE) prevented Wear compression stockings (JOSE A hose) if your doctor recommends them. These keep blood from pooling in your veins. Wear a sleeve-like device o n your legs (SCDs) after surgery to squeeze your legs and keep blood flowing through your veins. The squeezing motion is similar to how your muscles squeeze your veins during normal walking. Elevate the foot of your bed. Get up and move as soon as you can after surgery, or after you've been ill. The quicker you get moving, the less likely blood clots will develop. Take pain medicine as prescribed to make it eas ier to move around. If you're having surgery, s uch as orthopedic surgery, you may be given blood thinners or anticoagulant (anti-clotting) medicines. These medicines make the blood less able to clot and are somet imes called blood thinners. They can block the formation of new clots and stop existing clots from getting bigger. Exercise your muscles if yo u'll be sitting a long time. Whenever possible, get up and walk around. If you can't get up to walk around, try to exercise the feet by flexing, extending and rotating the foot. Make lifestyle changes. Los e weight, quit smoking and control your blood pressure. Obesity, smoking and high blood pressure all increase your risk of deep vein thrombosis. Limit the amount of salt you eat. Eat a high pr otein, low fat diet. Do not wear constrictive clothing or stockings Call your doctor if you have: Pain in the leg Tenderness in the calf (this is one of the most important signs) Swelling of the leg Increased warmth of the leg Redness in the leg Bluish skin discoloration Discomfort when the foot is pulled upward Chest pain and/or cough Rapid breathing Rapid heart rate Shortness of breath FROM THE SOIL SURVEYOR Spiritual Care Services providing emotional and spiritual support At [facility], we are c ommitted to providing comprehensive care by embracing the whole person in body, mind and spirit. Board certified chaplains are available Wednesday - Wednesday 8 a.m.- 10:30 p.m. an d 8 a.m. 4:30 p.m. to all patients and their families to offer support across a wide array of diverse tracie traditions. Call Spiritual Care Services To help you cope with feelings associated with diagnosis and treatment If you find yourself asking why questions For Sacramental needs, ritual and prayer For grief and bereavement counseling If you have discovered new possibilities in you r life During time of /loss When you are struggling with forgiveness To coordinate and collaborate with your tracie rupa baldwin To assist in decision making To assist with advanced health care planning To contact a marketing information analyst, ask your nurse to call Spiritual Care Services Department: Story Teller: [phone] Director: [phone] Were here to support your tracie, beliefs and va lues. STROKE/TIA(TRANSISCHEMIC ATTACK) INFORMATION If you have been diagnosed with a Stroke or TIA : 1. Call 911 immediately if you experience signs or symptoms of stroke as: Sudden weakness or numbness of face, arms and leg usually on one side of the body. Loss of vision, particularly in only one eye. Sudden severe headache with no known cause. Sudden trouble walking, diz ziness, loss of balance or coordination, slurred speech. 2. Risk factors for stroke: Age: The older you get the more likely you are to have a stroke. Sex: and [place] men have a higher risk. Prior Stroke: Already having a stroke makes you more likely to have another. Family history: Family (par ent, grandparents, brother, sister) with a history of stroke increases your risk. You can control, treat or p revent some conditions to reduce your likelihood of stroke. High blood pressure, cigarette smoking, high cholesterol, Lack of regular physical activity, overweight, diabetes are all risk factors that can be changed. Cigarette Smoking Do you or someone you live with smoke If so, this is one of your greatest health risk! This is a risk that you can control. The facts are clear that cigarette smoking will shorten your life. Smoking ca n cause many illnesses along the way. If you or someone you live with need help to quit smoking, talk to your regular doctor. Please contact one or more of the following agencies for smoking-cessation information or classes: [facility] Tobacco Use Prevention Program- Telephone number: [phone] [place] Smokers' Helpline:[phone] or access via website: WWW.ASHLINE.ORG [place] [employer] Telephone number: [place] [employer] Ovarian Cancer Ovarian cancer is an abnorm al growth of cells that forms a mass (malignant tumor) on one or both ovaries. The ovaries are the parts of the female reproductive system that produce eggs. Women have two o varies. They are located on either side of the u terus. What are the causes The cause of ovarian cancer is not known. What increases the risk You are more likely to develop this condition i f you: Are 50 or older. Have a personal or family h istory of endometrial, colon, breast, or ovarian cancer. Have the genes associated with breast and ovari an cancer (BRCA1 and BRCA2). Have used fertility medicines. Started menstruating before age 12. Started menopause when you were older than 50. Became for the first time at age 35 or older. Have never been . Have had hormone replacement therapy. Are overweight. Have certain inherited gene tic conditions that raise the risk of cancer, such as Pugh syndrome. Have a history of polycystic ovarian syndrome. Have tissues from the uterus growing outside of the uterus (endometriosis). What are the signs or symptoms In the early stages, ovaria n cancer often does not cause symptoms. As the cancer grows, symptoms may include: Unexplained weight loss. Pain, swelling, and bloating in the abdomen. Pain and pressure in your back and pelvis. Abnormal bleeding from the vagina. Loss of appetite. Passing urine often. Pain during sex. Fatigue. How is this diagnosed This condition may be diagnosed based on: Your medical history and a physical exam. A pelvic and abdominal exam to check your ovaries, uterus, vulva, cervix, vagina, bladder, rectum, and fallopian tubes. Tests, such as: An imaging test that uses s ound waves to take pictures of your uterus, bladder, ovaries, and fallopian tubes (transvaginal ultrasound). For this test, a sound wave probe is inserted into your vagina. CT scan, PET scan, or MRI. X-rays of the colon and rectum. Blood tests. Taking a small piece of tissue to examine it un aruna a microscope (biopsy). Removing built-up fluid fro m the abdomen (ascites) to be examined under a microscope (paracentesis). Your cancer will be assesse d (staged) based on how severe it is and how much it has spread. How is this treated This condition may be treated with one or more of the following: Surgery to remove one ovary and its fallopian tube (oophorectomy). This may be done to treat cancer in its early stages. Surgery to remove the uteru s, cervix, fallopian tubes, and ovaries (hysterectomy with bilateral salpingo-oophorectomy). Lymph tissue (lymph nodes) near the tumor and some tissue and fluid from the abdo men may also be removed and analyzed for cancer cells. This is done to treat advanced cancer. Chemotherapy. This uses med icines to kill the cancer cells. Chemotherapy may be used before or after surgery. Intraperitoneal chemotherap y (IP chemotherapy). Chemotherapy is given directly into the abdomen (peritoneum) through a special tube. Targeted therapy. This uses drugs to attack specific areas within cancer cells to kill the cells or stop them from growing. Follow these instructions at home: Lifestyle Do not use any products tarik t contain nicotine or tobacco, such as cigarettes and e-cigarettes. If you need help quitting, ask your health care provider. Do moderate exercise regularly, as told by your health care provider. Try to eat regular, healthy meals. Some of your treatments might affect your appetite. If you are having problems eating or with your appetite, ask to meet with a food and rehabilitation specialist (dietitian). Consider joining a support group with others who have cancer. A support group may help you with resources and information to help you cope with your cancer. General instructions Take lavz-vkw-diygogz and p rescription medicines only as told by your health care provider. Do not drive or use heavy machinery while takin g prescription pain medicine. If you are taking prescript ion pain medicine, take actions to prevent or treat constipation. Your health care provider may recommend that you: Drink enough fluid to keep your urine pale yell ow. Eat foods that are high in fiber, such as fresh fruits and vegetables, whole grains, and beans. Limit foods that are high i n fat and processed sugars, such as fried or sweet foods. Take an dedu-myr-nsyzysi or prescription medici ne for constipation. You may need to have regula r blood tests and imaging tests to monitor your response to treatment. Keep all follow-up visits a s told by your health care provider. This is important. Where to find more information [place] [employer]: www.cancer.org National Cancer [place]: www.cancer.gov Contact a health care provider if you: Are not able to follow a prescribed treatment p feder[place] or take a medicine. Have any symptoms or changes that concern you. Have changes in your bowel or bladder habits. Get help right away if you have: A fever or chills. Serious side effects or an allergic reaction to a treatment or medicine. Back pain that is new. Increased pain, swelling, or bloating in your a bdomen. Summary Ovarian cancer is an abnorm al growth of cells that forms a mass (malignant tumor) on one or both ovaries. Symptoms of ovarian cancer may include pain in the abdomen, back, or pelvis. You may also have a loss of appetite and swelling or bloating in the abdomen. You are more likely to deve lop ovarian cancer if you are older than 50, but it can affect younger women, particularly those with the BRCA1 or BRCA2 genes. These genes are associated with breast and ovarian cancer. Treatment may include a com bination of surgery and medicines that kill cancer cells (chemotherapy). You may need to have regula r blood tests and imaging tests to monitor your response to treatment. This information is not int ended to replace advice given to you by your health care provider. Make sure you discuss any questions you have with your health care provider. Document Released: 08/10/20 Document Revised: 01/11/2020 Document Reviewed: 10/12/2018 [employer] Patient Education 2020 [employer]. Bilateral Salpingo-Oophorectomy Bilateral salpingo-oophorec josselyn is the surgical removal of both fallopian tubes and both ovaries. The ovaries are reproductive organs that produce eggs in women. The fallopian tubes allow eggs to move from the ovaries to the uterus. You may need this procedure if you: Have had your uterus remove d. This procedure is usually done after the uterus is removed. Have cancer of the fallopian tubes or ovaries. Have a high risk of cancer of the fallopian tub es or ovaries. There are three different techniques that can b e used for this procedure: Open. One large incision will be made in your a bdomen. Laparoscopic. A thin, light ed tube with a small camera on the end (laparoscope) will be used to help perform the procedure. The laparoscope will allow your surgeon to make several small incisions in the abdomen instead of one large incision. Robot-assisted. A computer will be used to control surgical instruments that are attached to robotic arms. A laparoscope may also be used with this technique. As a result of this procedu re, you will become sterile (unable to become ), and you will go into menopause (no longer able to have menstrual periods). You may develop symptoms of menopause such as hot flashes, night sweat s, and mood changes. Your sex drive may also be affected. Tell a health care provider about: Any allergies you have. All medicines you are takin g, including vitamins, herbs, eye drops, creams, and ncak-zlj-reluywi medicines. Any problems you or family members have had wit h anesthetic medicines. Any blood disorders you have. Any surgeries you have had. Any medical conditions you have. Whether you are or may be . What are the risks Generally, this is a safe procedure. However, p roblems may occur, including: Infection. Bleeding. Allergic reactions to medicines. Damage to other structures or organs. Blood clots in the legs or lungs. What happens before the procedure Staying hydrated Follow instructions from [facility] health care provider about hydration, which may include: Up to 2 hours before the pr ocedure you may continue to drink clear liquids, such as water, clear fruit juice, black coffee, and plain tea. Eating and drinking restrictions Follow instructions from [facility] health care provider about eating and drinking, which may include: 8 hours before the procedur e stop eating heavy meals or foods such as meat, fried foods, or fatty foods. 6 hours before the procedur e stop eating light meals or foods, such as toast or cereal. 6 hours before the procedure stop drinking milk or drinks that contain milk. 2 hours before the procedure stop drinking emmanuel r liquids. Medicines Ask your health care provider about: Changing or stopping your r egular medicines. This is especially important if you are taking diabetes medicines or blood thinners. Taking medicines such as as pirin and ibuprofen. These medicines can thin your blood. Do not take these medicines before your procedure if your health care provider instructs you not to. You may be given antibiotic medicine to help pr event infection. General instructions Do not smoke for at least 2 weeks before your procedure or as told by your health care provider. You may have an exam or testing. You may have a blood or urine sample taken. Ask your health care provid er how your surgical site will be marked or identified. Plan to have someone take you home from the [facility]. If you [facility], plan to have someone with you for 24 hours. What happens during the procedure To reduce your risk of infection: Your health care team will wash or sanitize the ir hands. Your skin will be washed with soap. Hair may be removed from the surgical area. An IV tube will be inserted into one of your ve ins. You will be given one or more of the following: A medicine to help you relax (sedative). A medicine to make you fall asleep (general ane sthetic). A thin tube (catheter) will be inserted through your urethra and into your bladder. The catheter drains urine during your procedure. Depending on the type of vela rgery you are having, your surgeon will do one of the following: Make one incision in your abdomen (open surgery ). Make two small incisions in your abdomen (laparoscopic surgery). The laparoscope will be passed through one incision, and surgical instruments will be passed through the other. Make several small incision s in your abdomen (robot-assisted surgery). A laparoscope and other surgical instruments may be passed through the incisions. Your fallopian tubes and ov pito will be cut away from the uterus and removed. Your blood vessels will be clamped and tied to prevent too much bleeding. The incision(s) in your abd omen will be closed with stitches (sutures) or oma. A bandage (dressing) may be placed over your in cision(s). The procedure may vary among health care [facility] and hospitals. What happens after the procedure Your blood pressure, heart rate, breathing rate, and blood oxygen level will be monitored until the medicines you were given have worn off. You may continue to receive fluids and medicine s through an IV tube. You may continue to have a catheter draining yo ur urine. You may have to wear compre ssion stockings. These stockings help to prevent blood clots and reduce swelling in your legs. You will be given pain medicine as needed. Do not drive for 24 hours if you received a sed ative. Summary Bilateral salpingo-oophorec josselyn is a procedure to remove both fallopian tubes and both ovaries. There are three different t echniques that can be used for this procedure, including open, laparoscopic, and robotic. Talk with your health care provider about how your procedure will be done. As a result of this procedu re, you will become sterile and you will go into menopause. Plan to have someone take you home from the [facility]. This information is not int ended to replace advice given to you by your health care provider. Make sure you discuss any questions you have with your health care provider. Document Released: 09/20/20 06 Document Revised: 11/24/2019 Document Reviewed: 10/25/2017 [employer] Patient Education 2019 [employer]. [facility] [address] [place] [id number] [place] [address] FREQUENTLY ASKED QUESTIONS ABOUT SURGICAL SITE INFECTIONS What is a Surgical Site Infection (SSI) A surgical site infection i s an infection that occurs after surgery in the part of the body where the surgery took place. Most patients who have surgery do not develop an infection. However, infections develop in about 1 to 3 out of every 100 patien ts who have surgery. Some of the common symptoms of a surgical site infection are: Redness and pain around the area where you had surgery Drainage of cloudy fluid from your surgical wou nd Fever Can SSIs be treated Yes. Most surgical site inf ections can be treated with antibiotics. The antibiotic given to you depends on the bacteria (germs) causing the infection. Sometimes patients with SSIs also need another surgery to treat the infection. What are some of the things that hospitals are doing to prevent SSIs To prevent SSIs, doctors, nurses, and other [facility]: Clean their hands and arms up to their elbows with an antiseptic agent just before the surgery. Clean their hands with soap and water or an alcohol-based hand rub before and after caring for each patient. May remove some of your saundra r immediately before your surgery using electric clippers if the hair is in the same area where the procedure will occur. They should not shave you with a razor. Wear special hair covers, m asks, gowns, and gloves during surgery to keep the surgery area clean. Give you antibiotics before your surgery starts. In most cases, you should get antibiotics within 60 minutes before the surgery starts and the antibiotics should be stopped within 24 hours after surgery. Clean the skin at the site of your surgery with a special soap that kills germs. What can I do to help prevent SSIs Before your surgery: Tell your doctor about othe r medical problems you may have. Health problems such as allergies, diabetes, and obesity could affect your surgery and your treatment. Quit smoking. Patients who smoke get more infections. Talk to your doctor about how you can quit before your surgery. Do not shave near the area where you will have surgery. Shaving with a razor can irritate your skin, making it easier to develop an infection. At the time of your surgery: Speak up if someone tries t o shave you with a razor before surgery. Ask why you need to be shaved and talk with your surgeon if you have any concerns. Ask if you will receive antibiotics before surg amira. After your surgery: Make sure that your healthc are providers clean their hands before examining you, either with soap and water or an alcohol-based hand rub. If you do not see your providers clean their hands, please ask them to do so. Family and friends who visi t you should not touch the surgical wound or dressings. Family and friends should c lean their hands with soap and water or an alcohol- based hand rub before and after visiting you. If you do not see them clean their hands, ask them to clean their hands. What do I need to do when I go home from the [facility] Before you go home, your do ctor or nurse should explain everything you need to know about taking care of your wound. Make sure you understand how to care for your wound before you leave the hospital. Always clean your hands before and after caring for your wound. Before you go home, make vela re you know who to contact if you have questions or problems after you get home. If you have any symptoms of an infection, such as redness and pain at the surgery site, drainage, or fever, call your doctor immediately. If you have questions, please ask your doctor o r nurse. [address] [address] [place] [address] HOW DO WE MAKE YOUR SURGERY SAFE Every year millions of peop le have surgery. Every surgery has risks but we know there are some risks that can be decreased or prevented. Dont be afraid to ask about safety. Your health is too important to worry about being embarr assed if you dont understand something that your surgeon, nurse or other health post anesthesia care unit nurse tells you. Your care team includes your surgeon, your anesthesiologist and your perioperative nurses. While in the perioperative area, the following topics will be covered with you prior to going into surgery. HOW WE PREVENT INFECTIONS 1. In certain cases, antibi otics can lower chances of infection after surgery. Your surgeon may order an IV antibiotic, to be given prior to the start of your surgery. IV antibiotics may continue for up to 24 hours after surgery. 2. To prevent infection, he alth team members wash their hands before and after caring for each patient. The surgical team follows sterile technique for all procedures. 3. Depending on the type an d location of your surgery, it may be necessary to use a clipper to remove some of your hair in the area surrounding the incision site. Razors are not used as they can leave small cuts on the skin and increase the chance o f infection. HOW WE PREVENT BLOOD CLOTS 1. Because your body does n ot move while under anesthesia you are at greater risk of developing a blood clot. Your surgeon will assess your risk and the appropriate preventative steps will be taken thr ough use of medication, special stockings among others. HOW WE PREVENT SURGICAL ERRORS 1.The surgical team will as k you to state your name and medical record number multiple times and compare your resp onse to the information in your chart. All x-rays, implants and equipment needed for your surgery will be verified before and after you enter the operating room. 2.You will be asked to veri fy what procedure you are having done and where on your body. If the procedure involves a side, left/right or a specific finger or toe, the surgeon will use a marker and write a yes at the site being operated on. 3.After you have been moved into the operating room and before your surgery begins, the surgical staff will check your identity, verify the procedure and site (if applicable), supplies and equipment needed for your procedure. SPEAK UP if you have questi ons or concerns, and if you dont understand something, please ask again. Its your body and you have a right to know. Medication Education [Image Removed: page] [Image Removed: page] [Image Removed: page] Clothes at Bedside: Pants, Shirt, Shoes, Underg arments Electronics at Bedside: None Jewelry at Bedside: None Miscellaneous Items at Bedside: None Personal Devices at Bedside: Dentures, lower, D entures, upper I understand that [facility] is not responsible for any personal belongings/effects or valuables that have not been identified on the valuables and belongings list. Any personal effects brought int o the facility and not recor ded on the valuables and belongings form are the responsibility of the patient/family/significant other.I have received the indicated patient education materials/instructions and medication list and have verbalized underst anding. 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 A: 1. left hallux- Per patient, has ingrown toenail. Nails were trimmed by his son days ago. Medial side slightly swollen and with very mild erythema. No active drainage noted. (+) tenderness when stepping on it. R: - left hallux: Recommend painting with Betadine daily. 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 Son arrived at bedside and agreed with instructions and wound recommendations. Informed Laureen ALVAREZ. Electronically Signed By: Zheng Gutierres RN On 06/03/20 12:21 Co Signature By: Modify Signature By: Transition Planning Readmission risk moderate 4. Interview completed with patient at bedside. Lives with son in a H. Demographics verified. PLOF ADL/I, ambulates with a FWW, drives. Son provides assistance as needed and 06/03/2020 [facility]. Patient reports that she was on service with a HH company, cannot recall name. [facility] ADC home with son and resumption of HH. HH order sent via [employer] to [facility] per last visit patient was on staff with HH agency. [facility] is currently not on service with patient. Clerk Carrier called patients son, per son the patient is on service with [facility]. [facility] is accepting and booked for resumption of care. SOC 06/04. Staff notified Progress Note Patient: JOSEPH VALDIVIA MRN: [id number] 06/02/2020 [facility] Age: 79 years Sex: F : 1940 Active Ins urance: MEDICARE [phone] [facility] Admitting MD: Helen Black MD Location: [facility] C5A: C528: 01 PCP: Carol Ruff MD Author: Skylar Bentley BALANCE ENGINEER Subjective Ms. Valdivia reports doing well this morning. Has some pain but overall feels pain pills are helping. Tolerating oral intake without nausea and vomiting. Ambulating. Voiding, denies BM and still not passing gas yet. Objective Vitals and Measurements T: 36.8 C (Oral) TMIN: 36.7 C (Oral) TMAX: 37.3 C (Oral) HR: 68 RR: 16 BP: 105/57 SpO2: 95% Oxygen Amount: 2 Oxygen Method: Room air Physical Exam GEN: No acute distress, alert and oriented x 3 HEENT: oropharynx clear, mucous membranes moist NECK: supple, no jugular venous distention CV: regular rate and rhythm, no rubs or gallops PULM: clear to auscultation bilaterally, normal respiratory excursion ABD: soft, nontender, nondi stended, hypoactive bowel sounds, no guarding or rebound. ecchymosis to upper right quadrant; incision c/d/i EXTR: no cyanosis, clubbing or edema; swollen l eft great toe NEURO: Non-focal, moves all extremities Lab Results Common Labs - This Encounter, Most Recent, Last 24 hours Last 24 Hours Hematology-CBC 06/02/20 WBC: 5.5 RBC:2.83 (L) Hgb:9.2 (L) Hct:28.2 (L) MCV: 99.9 MCH: 32.7 MCHC: 32.7 RDW: 15.8 Plt: 159 Neuts: 71.0 Lymphs: 14.9 Monos.: 11.2 Eos.: 2.6 Baso.: 0.3 ABS Neut: 3.9 ABS Lymph: 0.8 ABS [place]: 0.6 ABS Eos: 0.1 ABS Baso: 0.0 CBC Scan: Auto Diff Assessment/Plan is a 79 y/o G2P 2 with R ovarian high grade mullarian adenocarcinoma. Completed 6 cycles of carbo/taxol (last given 03/29/20. Now POD 2 s/p exploratory laparotomy, bilateral salpingo-oophore ctomy, omentectomy, lysis of adhesions and lymph node biopsy (patient had a prior hysterectomy). Previously on warfarin however Lovenox to continue then bridge to warfarin. Patient was started on NS due to low urine output and dec lining blood pressure. Will d/c IVF. Encouraged IS use and ambulation. Will continue with current pain regimen and docusate. Simethicone added to help relief gas pain. Will call son (Pepe) to review plan of care. Electronically Signed By: Skylar Bentley NP On 06/02/20 07:58 Co Signature By: Modify Signature By: Attending Note Pt seen and examined. Agree with above assessmen t and plan. Electronically Signed By: Sigrid Chappell MD On 06/02/20 13:24 Co Signature By: Modify Signature By: Sigrid Chappell MD On 06/02/20 13:24 Progress Note Patient: JOSEPH VALDIVIA MRN: [id number] 06/01/2020 [facility] Age: 79 years Sex: F : 1940 Active Ins urance: MEDICARE [phone] [facility] Admitting MD: Helen Black MD Location: [facility] C5A: C528: 01 PCP: Carol Ruff MD Author: Skylar Benltey NP Subjective Ms. Valdivia reports doing well this morning. Has some pain but overall feels ok. Drinking without nausea and vomiting. Ambulating. Not passing gas yet. Objective Vitals and Measurements T: 37.1 C (Oral) TMIN: 36.2 C (Temporal Artery) TMAX: 37.7 C (Oral) HR: 61 RR: 18 BP: 99/58 SpO2: 96% Oxygen Amount: 2 Oxygen Method: Nasal cannula WT: 63.4 kg Physical Exam GEN: No acute distress, alert and oriented x 3 HEENT: oropharynx clear, mucous membranes moist NECK: supple, no jugular venous distention CV: regular rate and rhythm, no rubs or gallops PULM: clear to auscultation bilaterally, normal respiratory excursion ABD: soft, nontender, nondi stended, hypoactive bowel sounds, no guarding or rebound. ecchymosis to upper right quadrant; incision c/d/i : Taylor with clear yellow urine output. EXTR: no cyanosis, clubbing or edema; swollen l eft great toe NEURO: Non-focal, moves all extremities Lab Results Common Labs - This Encounter, Most Recent, Last 24 hours Last 24 Hours Coag 06/01/20 Blood Bank 06/01/20 INR: 1.09 ABORH: O POS PT:12.5 (H) Ab Screen: Neg XM Interp: Compatible Crossmatch Performed: Performed Additional IS: 0 B Cells Auto: 3+ File Check: No Previous History Assessment/Plan is a 79 y/o G2P 2 with R ovarian high grade mullarian adenocarcinoma. Completed 6 cycles of carbo/taxol (last given 03/29/20. Now POD 1 s/p exploratory laparotomy, bilateral salpingo-oophore ctomy, omentectomy, lysis of adhesions and lymph node biopsy (patient had a prior hysterectomy). Previously on warfarin however lovenox to continue then bridge to warfarin. Will plan to d/c Taylor. Encou raged IS use and ambulation. Will continue with current pain regimen and docusate. Electronically Signed By: Skylar Bentley NP On 06/01/20 08:32 Co Signature By: Modify Signature By: Agree with above assessment and plan. Attending Note Electronically Signed By: Sigrid Chappell MD On 06/02/20 13:24 Co Signature By: Modify Signature By: Sigrid Chappell MD On 06/02/20 13:24 Patient Placement Prefer C5 05/31/2020 [facility] Infection Control/Safety Education Topics Enter ed On: 05/31/2020 17:20 [facility] Performed On: 05/31/2020 17:20 [facility] by Hannah Woody RN Infection Control Education Infection Control/Safety [facility] Topics : Hand hygiene, Respiratory hygiene, Surgical/invasive procedure site infection prevention, Fall prevention, Oral Care Hannah Woodall RN - 05/31/2020 17:2 0 [facility] Post-Op Note 05/31/2020 [facility] Patient: JOSEPH VALDIVIA ( EV) [facility] Age: 79 years Sex: F : 1940 Associated Diagnoses: None Author: Elsa Sanchez MD Postoperative Information Procedure: Exploratory laparotomy, bila teral salpingo-oophorectomy, omentectomy, lysis of adhesions and lymph node biopsy Preoperative Diagnosis: Right ovarian high grade mullarian adenocarcinoma. Postoperative Diagnosis: Right ovarian high grad e mullarian adenocarcinoma Adhesive disease. Performed by: Helen Black MD. Process Improvement Engineer: Elsa Sanchez MD. Process Improvement Engineer: Teddy Oh. Anesthesiologist: Nelson Feliciano MD. Findings: Enlarged right ova ry, with adhesive disease between colon and abdominal side napier, pelvic side napier.. Specimens Removed: Right ovary and fallopian tub e Left fallopian tube and ovary Omentum Omental adhesion Left pelvic lymph node . Estimated Blood Loss: 100 ml. Anesthesia Type: General. Complications: None. Procedure Details: Surgical pause per universal protocol. Intake and Output: OR Intake: IV lactated ringers 1300 ml. Operating Room Output: Urinary catheter 100 ml. Medications: Medication List (ST) Medication List Active Medications Ordered acetaminophen-HYDROcodone: 1 Tab, PO, x1, PRN: Pain Scale (See Comments). acetaminophen-oxyCODONE: 1 Tab, PO, x1, PRN: Pa in Scale (See Comments). albuterol: 5 mg, 1 mL, NEB - inhalation, q4hwa. ceFAZolin: 2 gm, IV Push, oncall. fentaNYL: 25 mcg, IV Push, q3min, PRN: PACU Zandra n 1st Choice. hydrALAZINE: 5 mg, IV Push, q10min, PRN: Other (see Comments). HYDROmorphone: 0.4 mg, IV Push, q3min, PRN: PAC U Pain 2nd Choice. ipratropium: 0.5 mg, 2.5 mL, NEB - inhalation, q4hwa. labetalol: 5 mg, IV Push, q5min, PRN: Other (se e Comments). Lactated Ringers Injection 1,000 mL: 50 mL/hr, IV, Stop: 06/30/20 8:48:00 MST. Lactated Ringers Injection 1,000 mL: 50 mL/hr, IV, Stop: 05/31/20 22:38:00 MST. meperidine: 12.5 mg, IV Push, q10min, PRN: Shiv ering. metoclopramide: 10 mg, IV Push, once, PRN: Naus ea / Vomiting 3rd Choice. metoclopramide: 10 mg, IV Push, once, PRN: Naus ea / Vomiting 4th Choice. morphine: 1 mg, IV Push, q5min, PRN: PACU Pain 3rd Choice. oxyCODONE: 5 mg, PO, x1, PRN: Pain Scale (See C omments). prochlorperazine: 5 mg, IV Push, q10min, PRN: N ausea / Vomiting 2nd Choice. Sodium Chloride 0.9% 250 mL: 20 mL/hr, IV, Stop : 06/03/20 8:49:00 MST. Documented amLODIPine: 2.5 mg, PO, qAM, 0 Refill(s). aspirin: 81 mg, PO, qAM, 0 Refill(s). atorvastatin: 20 mg, PO, qHS, 0 Refill(s). calcium-vitamin D: 1 Tab, PO, TID, 0 Refill(s). carvedilol: 6.25 mg, PO, BID, 0 Refill(s). cholecalciferol: 1 Cap, PO, qDay, with food, 0 Refill(s). citalopram: 10 mg, PO, qAM, 0 Refill(s). cyanocobalamin: 1 Tab, PO, qAM, 0 Refill(s). enoxaparin: 60 mg, SUBCUT, BID, 0 Refill(s). famotidine: 20 mg, PO, qHS, 0 Refill(s). gabapentin: 100 mg, PO, qHS, 0 Refill(s). guaiFENesin: 1 Tab, PO, BID, PRN: Cough, 0 Refi ll(s). melatonin: 9 mg, PO, qHS, 0 Refill(s). multivitamin with minerals: 1 Tab, PO, Daily, 0 Refill(s). saccharomyces boulardii: 250 mg, PO, BID, 0 Ref ill(s). senna: 17.2 mg, PO, Daily, PRN: as needed for c onstipation, 0 Refill(s). warfarin.: 5 mg, PO, qWed, 0 Refill(s). warfarin.: 10 mg, PO, Daily, DAILY EXCEPT SDAY, 0 Refill(s). Medications Inactivated in the Last 72 Hours amLODIPine: 1 Tab, PO, qDay, 0 Refill(s). aspirin: 1 Tab, PO, Daily, 30 Tab, 0 Refill(s). atorvastatin: 1 Tab, PO, qDay, 0 Refill(s). bupivacaine: ADM, x1. bupivacaine liposome: ADM, x1. carvedilol: 1 Tab, PO, BID, 60 Tab, 0 Refill(s) . docusate: 100 mg, PO, BID, 0 Refill(s). fentaNYL: ADM, x1. fibrinolysis inhibitor-thrombin topical: ADM, x 1. Lactated Ringers Injection: ADM, x1. ondansetron: 1 Tab, PO, q4hr, for 5 Day, PRN: N ausea, 20 Tab, 0 Refill(s). ondansetron: 4 mg, IV Push, once, PRN: PACU Rigoberto sea / Vomiting 1st Choice. warfarin.: 1 Tab, PO, qDay, for 30 Day, 30 Tab, 0 Refill(s). . Correct Counts: Yes. Disposition: PACU. Patient status at the end of procedure:: Stable. Electronically Signed By: Elsa Sanchez MD On 05/31/20 12:59 Co Signature By: Helen Black MD On 06/03/20 10:36 Modify Signature By: Anesthesia Physician Note 05/31/2020 [facility] Patient: JOSEPH VALDIVIA ( EV) [facility] Age: 79 years Sex: F : 1940 Associated Diagnoses: None Author: Nelson Feliciano MD Postoperative Information Post Operative Note: Post Anesthesia Care Unit. Anesthetic utilized: General. Health Status Intake and Output Allergies: Allergic Reactions (All) NKA Current medications: Antibiotic Info Ordered ceFAZolin: 2 gm, IV Push, oncal 05/31/20 08:48 - Active ( 1 days ) , Scheduled albuterol (0.5%) 2.5 mg/ 0.5mL 5 mg, 1 mL, NEB - inhalation, q4hwa ipratropium 0.02% 2.5mL Inh So 0.5 mg, 2.5 mL, N EB - inhalation, q4hwa PRN Meds fentaNYL 50 mcg/mL 2 mL Inj: 25 mcg, IV Push, q3min, PRN: PACU Pain 1st Choice hydrALAZINE 20 mg/mL 1mL Inj: 5 mg, IV P ush, q10min, PRN: Other (see Comments) HYDROcod/acetamin (5/325) mg T 1 Tab, PO, x1, OH N: Pain Scale (See Comments) HYDROmorphone 0.5 mg/0.5 mL In 0.4 mg, IV Push, q3min, PRN: PACU Pain 2nd Choice labetalol 5 mg/mL 4mL Inj: 5 mg, IV Push, q5min, PRN: Other (see Comments) meperidine 25 mg/mL 1mL Inj: 12.5 mg, IV Push, q 10min, PRN: Shivering metoclopramide 5 mg/mL 2mL I nj 10 mg, IV Push, once, PRN: Nausea / Vomiting 3rd Choice metoclopramide 5 mg/mL 2mL I nj 10 mg, IV Push, once, PRN: Nausea / Vomiting 4th Choice morphine 2 mg/mL 1mL Inj: 1 mg, IV Push, q5min, PRN: PACU Pain 3rd Choice ondansetron 2 mg/mL Inj 2mL: 4 mg, IV Push, once, PRN: PACU Nausea / Vomiting 1st Choice oxyCODONE 5 mg Tab Immediate R 5 mg, PO, x1, PRN : Pain Scale (See Comments) oxyCODONE/acetaminophen (5/325 1 Tab, PO, x1, OH N: Pain Scale (See Comments) prochlorperazine 5 mg/mL 2 m L 5 mg, IV Push, q10min, PRN: Nausea / Vomiting 2nd Choice Unscheduled ceFAZolin 1,000 mg Inj: 2 gm, IV Push, oncall IV Medications lactated ringers: 50 mL/hr, IV, Stop: 06/30/20 8 :48:00 MST lactated ringers: 50 mL/hr, IV, Stop: 05/31/20 2 2:38:00 MST NaCl 0.9%: 20 mL/hr, IV, Stop: 06/03/20 8:49:00 MST . VS/Measurements 24 hr vital signs (All documented values resulted over the prior 24 hours) Low High Last 36.2 36.7 36.7 (05/31 08:59) (05/31 12:25) (05/31 12:25) Temperature Temporal Artery Temperature Temporal Artery Temperature Temporal Artery HR 52 68 52 (05/31 12:35) (05/31 08:59) (05/31 12:35) RR 14 17 17 (05/31 12:30) (05/31 12:35) (05/31 12:35) NIBP 110/77 157/73 145/61 (05/31 08:59) (05/31 12:25) (05/31 12:35) NIBP Mean 94 105 95 (05/31 12:30) (05/31 12:25) (05/31 12:35) Weight (kg) Admit 61.68 (05/28 16:33) Current 63.45 (05/31 08:59) Previous 61.68 (05/28 16:33) Gain/Loss 1.77 BMI = 23.28 05/31/20 08:59 BMI Ventilation Low High Last SaO2 95 100 99 (05/31 08:59) (05/31 12:30) (05/31 12:35) == Physical Examination Respiratory Function: Airway patent, Respiratory rate within expected parameters, Oxygenation within expected parameters. Cardiovascular Function: Pul se within expected parameters, Blood pressure within expected parameters. Mental Status: Arousable and able to follow simple commands or returned to pre-status. Temperature: Within expected parameters. Pain: Within expected parameters. Nausea and Vomiting: No acute nausea or vomiting . Hydration: Appears adequately hydrated. Review / Management Results Review: 24 hr Labs Labs (All documented values resulted over the p rior 24 hours..) Coagulation PT 12.50H INR 1.09 . Condition: Stable. Assessment Anesthetic outcome No anesthetic complications noted. Plan Transfer/ Discharge: Patient can be discharged f [facility] PACU when criteria met. Condition good. Electronically Signed By: Nelson Feliciano MD On 05/31/20 12:40 Co Signature By: Modify Signature By: Operative Report 05/31/2020 [facility] DATE OF PROCEDURE: 05/31/2020 [facility] PREOPERATIVE DIAGNOSES: Ovarian cancer, status p ost neoadjuvant chemotherapy. POSTOPERATIVE DIAGNOSES: Ovarian cancer, status post neoadjuvant chemotherapy. PROCEDURE: Exploratory lapar otomy, bilateral salpingo-oophorectomy, omentectomy, tumor debulking with lysis of adhesions for 30 minutes. SURGEON: Helen Black MD. CUPROUS CHLORIDE OPERATOR: Nydia Tamez. ANESTHESIA: General endotracheal anesthesia with Dr. Fleiciano. FINDINGS: There was an ovari an mass approximately 10 cm in size which was adherent to the small bowel mesentery and right pelvic sidewall. There were no obvious tumor implants in any part of the abdomen . There was some scarring in volving the epiploic of the descending colon where it was attached to the omentum. This was debulked, but did not appear to be active cancer. COMPLICATIONS: None. CONDITION: Stable. ESTIMATED BLOOD LOSS: 100. IV FLUIDS: 1300 mL. URINE OUTPUT: 500 mL. DESCRIPTION OF PROCEDURE: patient was taken to the operating room where general endotracheal anesthesia was placed. The patient was placed in dorsal lithotomy position using Valdo stirrups. The arianne ent was then prepped and pacheco ped in usual sterile fashion. We began the procedure by making a vertical skin incision with the scalpel and carrying it down to the underlying layer of fascia with the Bovie . The fascia was incised and the incision carried superiorly and inferiorly using the Bovie. We entered the peritoneal cavity bluntly and extended the incision superiorly and inferiorly using the Bovie. At this point, we assembled Bookwalter retractor and began lysis of adhesions. There was adhesion noted between the omentum and several areas of the epiploica and bowel mesentery. These adhesions were taken down with gentle tract ion and the Bovie as well as the LigaSure device. We then completed an omentectomy infracolic using the Bovie and the LigaSure device with care to avoid the transverse colon serosa at all times. There w ere some adhesions that needed to be taken down. We additionally developed an area of nodularity where it was attached to the omentum and the epiploica of the descending colo n. No active tumor appeared to be present. At this point, after doing a complete infracolic omentectomy, we turned our attention to the pelvis. There was a small bowel loop that was adherent to the righ t pelvic mass. These adhesio ns were taken down using the Bovie and gentle traction. There was no nodularity noted within the small bowel mesentery. We entered the retroperitoneal space on the right. We identified the ureter deep w ithin the medial leaf of the broad ligament and came across the IP ligament on the right using LigaSure device above the pelvic brim. The ureter was identified and noted at a ll times. We then skeletoniz ed the adnexa where it was adherent to the right pelvic sidewall. We did have to debulk some of the right pelvic sidewall in order to get the right adnexa removed. Once this was complete, we did also of note take down some adhesions between the bladder peritoneum and the small bowel mesentery. Once this was complete, we entered the retroperitoneal space on the left. We iden tified the ureter deep withi n the broad ligament and took the IP ligament above the pelvic brim using LigaSure device. The adnexa was then skeletonized. It was adherent to the mesentery of the rectosigm oid, but we did remove the a dnexa with care to avoid the ureter at all times and skeletonized it from its attachments to the peritoneal surfaces in the bladder peritoneum. At this point, we reexamined t he ureter which was vermicul ating and intact. We noted some lymphadenopathy overlying the external iliac vein. We removed this lymph node using the Bovie and gentle traction. At this point, we irrigated the abdomen and cleared of all clots and debris. We did place Exparel within all layers of the abdominal wall closure. The fascia was closed with #1 looped PDS in a modified Smead-Davis manner. The ski n was closed with 3-0 PDS, 4 -0 Monocryl and Dermabond. The patient tolerated the procedure well. Sponge, lap, needle counts correct x2. The patient was taken to recovery room in stable condition. Dictated by: HELEN BLACK MD /[facility] Doc: [id number] Job: [id number] cc: Electronically Signed By: Helen Black MD On 06/03/20 10:35 Co Signature By: Modify Signature By: Anesthesia Physician Note 05/31/2020 [facility] Patient: JOSEPH VALDIVIA ( EV) [facility] Age: 79 years Sex: F : 1940 Associated Diagnoses: None Author: Nelson Feliciano MD Basic Information Proposed Surgery: Ex-Lap, tumor debulking, BSO . 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 Cardiovascular: Negative. Pulmonary: Negative. Gastrointestinal: Negative. Renal: Negative. Metabolic: Negative. Neurologic: Negative. Illness/Bleeding: Negative. Reproductive: Noncontributory. Social History Procedure History: Procedure Hx Bladder operation 10/14/1990 Knee replacement Sclerotherapy of varicose vein Plantar fascia Carcinoma Rectal fistula Hysterectomy ivc filter 11/15/2019 PORTACATH LEFT CHEST CATARACTS REMOVED BLEPHROPLASTY Prior Anesthetics Family History Anesthesia: Relevant Family History: Health Status Current medications: Antibiotic Info Ordered ceFAZolin: 2 gm, IV Push, oncal 05/31/20 08:48 - Active ( 1 days ) , Current Medications by History : citalopram 10 mg, PO, qAM, Refills: 0, Maintenan ce Last Dose(home): amLODIPine 2.5 mg, PO, qAM, Refills: 0, Maintena nce Last Dose(home): enoxaparin 60 mg, SUBCUT, BID, Refills: 0, Maint enance Last Dose(home): aspirin 81 mg, PO, qAM, Refills: 0, Maintenance Last Dose(home): carvedilol 6.25 mg, PO, BID, Refills: 0, Mainten ance Last Dose(home): atorvastatin 20 mg, PO, qHS, Refills: 0, Mainten ance Last Dose(home): famotidine 20 mg, PO, qHS, Refills: 0, Maintenan ce Last Dose(home): gabapentin 100 mg, PO, qHS, Refills: 0, Maintena nce Last Dose(home): melatonin 9 mg, PO, qHS, Refills: 0, Maintenance Last Dose(home): senna 17.2 mg, PO, Daily, OH N, as needed for constipation, 0, Maintenan Last Dose(home): guaiFENesin 600 mg oral tabl et 1 Tab, PO, BID, PRN, Cough, 0, Maintenance Last Dose(home): Vitamin B12 50 mcg oral tabl et 1 Tab Tab, PO, qAM, Refills: 0, Maintenance Last Dose(home): Florastor 250 mg, PO, BID, 0, Maintenance Last D ose(home): Calcium 600 +D Tab 1 Tab Tab, PO, TID, 0, Mainte nance Last Dose(home): Centrum Silver Women's oral ta 1 Tab, PO, Daily, Refills: 0, Maintenance Last Dose(home): Vitamin D3 5,000 Unit oral c ap 1 Cap Cap, PO, qDay, 0, with food, Maintenance Last Dose(home): warfarin 5 mg, PO, qWed, Refills: 0, Maintenance Last Dose(home): Current ABX Orders and Last Documented Doses ceFAZolin (Ancef) for IV Pus h Ordered 2 gm, IV Push, INJ, oncall Routine, Indication: Prophylaxis (medi Last Given: Allergies: Allergic Reactions (All) NKA VS/Measurements 24 hr vital signs (All documented values resulted over the prior 24 hours) Low High Last 36.2 36.2 36.2 (05/31 08:59) (05/31 08:59) (05/31 08:59) Temperature Temporal Artery Temperature Temporal Artery Temperature Temporal Artery HR 68 68 68 (05/31 08:59) (05/31 08:59) (05/31 08:59) RR 17 17 17 (05/31 08:59) (05/31 08:59) (05/31 08:59) NIBP 110/77 110/77 110/77 (05/31 08:59) (05/31 08:59) (05/31 08:59) Weight (kg) Admit 61.68 (05/28 16:33) Current 63.45 (05/31 08:59) Previous 61.68 (05/28 16:33) Gain/Loss 1.77 BMI = 23.28 05/31/20 08:59 BMI Ventilation Low High Last SaO2 95 95 95 (05/31 08:59) (05/31 08:59) (05/31 08:59) == , Last Documented Vital Signs Vital Signs (Most Recent ) Temp TA Heart Rate Resp Rate 36.2 68 17 (05/31 08:59) (05/31 08:59) (05/31 08:59) Non Invasive BP AdmitWeight CurrentWeight BMI 110 / 77 61.68 63.45 23.28 (05/31 08:59) (05/28 16:33) (05/31 08:59) (05/05 08:59) Ventilation SaO2 95 (05/31 08:59) , BMI: 23.28 (05/31/20 08:59) Physical Examination NPO Status: Greater than 8 hours. General: No acute distress. Airway: Mallampati classification: II-soft palate, fauc es, portion of uvula. Teeth: Normal. Mouth Opening: Good. Neck: Within normal limits. Heart: Within normal limits. Lungs: Within normal limits. Neurologic: Awake. Review / Management Results Review: Current Labs Current Lab Results (with date and time): Coagulation , 2 wk Labs Labs (All documented values resulted over the l ast two weeks ) Coagulation PT 12.50 INR 1.09 . Radiology Results Radiologist's interpretation Name: JOSEPH VALDIVIA Account: [id number] : 1940 Result Date: 05/24/20 15:21 Verified By: Rolando Ortiz MD at 05/24/20 15: 34 Report : XR Chest 2 Views IMPRESSION: There is a new 8 mm left upper lobe pulmonary nodule that was not clearly demonstrated on prior exams. Differential diagnosis includes developing granuloma versus soft tissue mass. Consider chest CT for further evaluat ion 1.3 cm previously seen left lower lobe pulmonary nodule appears similar to reference exam Interval placement of left subclavian Mediport 05/24/20 15:26 ++++++++++++++++++++++++++++++++++++++++++++++++ +++++++ Assessment Pain and Nausea Pain Intensity: 0 . [place] [employer] Anesthesiologists (ASA) phys ical status classification Class 3. Plan Anesthesia Plan Anesthesia: General. The ris ks, benefits, and alternatives of anesthetic plan and post op pain plan have been discussed and consent has been obtained. All questions answered. Electronically Signed By: Nelson Feliciano MD On 05/31/20 11:01 Co Signature By: Modify Signature By: Discharge Instructions [facility] 12/17/19 [facility] Document [address] [place] [address] JOSEPH VALDIVIA :1940 (EV) Visit Date:11/27/2019 Inpatient Discharge Instructions Your Care Team Admitting Physician - Tito Saunders MD Attending Physician - Tito Saunders MD Consulting Physician - Kaley, Kamaljit Bardales MD, Dana M MD Ghandhari, Vanousheh S DPM Shiva Echeverria MD, Mustafa MD Markabawi, Bashar MD Nguyen, Jimmy D MD Reynolds, David K DO Segireddy, Madhuri MD Lifetime Physician(PCP) - Carol Ruff MD Your Diagnosis Abdominal pain Fever Adenocarcinoma (epithelial) of ovary Aphasia Blindness of right eye Calf pain CVA (cerebral vascular accident) Elevated troponin I level Gastroenteritis Headache Photophobia of both eyes Toe pain, right Discharge Vitals Temperature 36.4 C (Oral) T MIN 36.4 C (Oral) TMAX 36.9 C (Oral) Heart Rate 77 Respiratory Rate 16 Blood Pressure 136/79 Weight 70 kg What to do next You May Need to Schedule the Following Appointm ents Follow Up with Wilson Mccall MD When Within 1 to 2 weeks Where: [address] [place] [address] [phone] Follow Up with Shiva Echeverria MD When Within 1 t o 2 weeks Where: [address] [place] [address]- [phone] Follow Up with Helen Black MD When Within 1 w tonto apache Where: [address] [place] [address]- [phone] Follow Up with Carol Ruff MD When Within 1 to 3 days Where: [phone] We encourage you to sign up for My Portal, where you can easily access your medical records and test results from all [facility]. Please sign up in one of the following ways: 1. Email invitation. You ma y have a message in your inbox. Please click the link provided to create an account. OR 2. Self-enrollment. Please go to [email or web address] and fill out your information. Well send you a verification code to complete the process. OR 3. Request an invitation at your next clinic or hospital visit. Please ask a staff member and they will be happy to assist you. Medications What How Much When Instructions Next Dose New APAP/ butalbital/ caffe ine (Fioricet 325/ 50/ 40) 1 tab(s) By mouth Every 6 hours as needed for Headache Duration: 5 Days Pickup at [facility] #[id number] NEEDED New aspirin (aspirin 81 mg oral tablet, chewable) 1 tab(s) By mouth Once daily Pickup at [facility] #[id number] 12/16 AM New carvedilol (Coreg 6.25 mg oral tablet) 1 tab(s) By mouth Twice daily Pickup at [email or web address][id number] 12/15 PM New ertapenem (ertapenem 1 gm injection) 1 gram Intravenous Once daily Duration: 7 Days Printed Prescription 12/16 AM New warfarin. (warfarin 2.5 mg oral tablet) 1 tab(s) By mouth Once daily Duration: 30 Days Pickup at [email or web address] #[id number] 12/16 PM Changed amLODIPine (amLODIP ine 5 mg oral tablet) 1 tab(s) By mouth Once daily 12/16 AM Changed atorvastatin (atorv astatin 40 mg oral tablet) 1 tab(s) By mouth Once daily 12/15 PM Changed guaiFENesin (guaiFE Nesin 600 mg oral tablet, extended release) 1 tab(s) By mouth Twice daily as needed for Cough NEEDED Changed ondansetron (ondans etron 4 mg oral tablet) 1 tab(s) By mouth Every 4 hours as needed for Nausea Duration: 5 Days Pickup at [email or web address] #[id number] NEEDED Changed senna 17.2 Milligra m By mouth Once daily as needed for as needed for constipation NEEDED Unchanged calcium-vitamin D (Calcium 600 +D Tab) 1 tab(s) By mouth Three times daily 12/15 PM Unchanged cholecalciferol ( Vitamin D3 5,000 Unit oral capsule) 1 cap By mouth Once daily with food 12/16 AM Unchanged citalopram 10 Milligram By mouth Once daily 12/16 AM Unchanged cyanocobalamin (V itamin B12 50 mcg oral tablet) 1 tab(s) By mouth Once daily 12/16 AM Unchanged docusate (Colace) 100 Milligram By mo uth Twice daily 12/15 PM Unchanged saccharomyces tahir lardii (Florastor) 250 Milligram By mouth Twice daily 12/15 PM Pharmacy Information [email or web address] #[id number] : [address] [place], [place] [phone] What How Much When Comments Stop Taking apixaban (Eliquis 5 mg oral tablet) 1 tab(s) By mouth Twice daily Stop Taking bethanechol 10 Milligram By mouth Three times daily x14 days (started )[id number] Discharge Orders Discharge Orders: Discharge Today, Home with Home Health, once picc and IV abx therapy arranged Case Management Instructions Final Transition Plan Additional Discharge Detail s: [facility] will service your needs after discharge from hospital, start of care requested date 12/11/2019. Please call [phone]. Discharge Arrangements: Patient Post-Acute Information Patient Name: JOSEPH VALDIVIA (EV) Gender: F : [birth year] Age: 79 Years Juan Referral(s): Service: Organization: Business Address: Phone Number: [facility] [employer] [facility] [place] [facility] [address], [facility] [address], [place], [address] [facility] [address], [phone] Education Materials Managing Chemotherapy Side Effects, Adult Chemotherapy is a [...] your side effects. What are common side effects Tiredness (fatigue). Increased risk of infections, bruising, or blee ding. Nausea and vomiting. Constipation or diarrhea. Appetite loss. Hair loss. Mouth or throat sores. Tingling, pain, or numbness in the hands and fe et. Dry, sensitive, itchy, or sore skin. Confusion, anxiety, or mood swings. Memory changes. How can I help manage my side effects Medicines Take bzgv-qxh-lnwzvnn and p rescription medicines only as told by your health care provider. Talk with your health care provider before taking vitamins, supplements, and bqno-aqw-llbbqvi medicines. Some of these can interfere with chemotherapy. Activity Get plenty of rest. Get regular exercise by doi ng activities such as walking, gentle yoga, or neno chi. Return to your normal activ ities as told by your health care provider. Ask your health care provider what activities are safe for you. Eating and drinking Talk to a dietitian about w hat you should eat and drink during cancer treatment. Drink enough fluid to keep your urine pale yell ow. If you have side effects that affect eating, th robi tips may help: Eat smaller meals and snacks often. Drink high-nutrition and high-calorie shakes or supplements. Eat bland and soft foods that are easy to eat. Do not eat foods that are hot, spicy, or hard t o swallow. Do not eat raw or undercooked meat, eggs, or se afood. Always wash fresh fruits and vegetables well be fore eating them. General instructions Learn as much as you can about your condition. Keep all follow-up visits a s told by your health care provider. This is important. Use mouth rinse only as told by your health car e provider. Protect your skin from the sun by using sunscreen or wearing protective clothing and a hat. If you have sore or itchy skin: Wear soft, comfortable clothing. Apply creams and ointments to your skin as told by your health care provider. If you lose your hair, wear a wig, hat, or scarf to cover your head. You may want to have someone shave your head as you start to lose hair. Meet with a hair and lean manufacturing specialist for m akeup and skin care tips. How can I prevent infection and bleeding Chemotherapy may lower your blood counts and put you at risk for infection and bleeding. Here are some ways to help prevent problems. Vaccines Talk to your health care pr ovider about vaccines. You should not get any live vaccines, such as the polio, MMR, chicken pox, and shingles vaccines. Do not be around people who have had live vaccines. Make sure you get a yearly flu shot. People who will be near you should also get a yearly flu shot. Social activity Stay away from crowded places where you could b e exposed to germs. Do not be around people who may be sick. Do not share food or utensils with other people . Wear a mask when outside the home if your blood counts are low. Cleanliness Wash your hands often. Also make sure that other members of your household wash their hands often. Minturn your teeth daily using a soft toothbrush. General tips Take your temperature regularly, especially if you have chills or feel warm. Check with your health care provider before you : Travel. Have a dental procedure. If you get chemotherapy thr ough an IV or port, check the site every day for signs of infection. Check for redness, swelling, pain, fluid, and warmth. Avoid activities that put you at risk for injur y. Use an electric razor to shave instead of a matilda de. Questions to ask your health care provider What are the most common side effects of my ida atment How will they affect my daily life What can I do to manage them When can I expect them to end What are some possible long-term side effects What are possible complications What support services are available When should I contact my cancer care provider What number can I call with questions or concer ns Where to find support Cancer affects the entire f amily. Find out what family support resources are available from your cancer treatment center. For more support, turn to: Your cancer care team. Friends and family. Your congregational community. Other people with cancer. Online support groups. Where to find more information National Cancer [place]: www.cancer.gov [place] [employer]: www.cancer.org Contact a health care provider if: You bleed or bruise often. You have: A skin rash or dry or itchy skin. A headache or stiff neck. Cold or flu symptoms. A cough. Nausea or vomiting. Diarrhea. Frequent urination, burning when passing urine, or foul-smelling urine. Blood in your urine or stool. You cannot eat because of mouth or throat pain. You are sad, confused, anxious, or depressed. Get help right away if: You have: A fever. Redness, swelling, pain, fluid, or warmth near an IV site. Bleeding that you cannot stop. A seizure. You cannot swallow. You have chest pain. You have trouble breathing. Summary Chemotherapy is a treatment that uses medicine to kill cancer cells. Chemotherapy causes side effects. The specific side effects depend on the specific medicines used. Learn as much as you can ab out your condition. Ask about side effects to watch for and how to treat them. Seek out support and resour indy from others. Find out what family support resources are available from your cancer treatment center. Let your health care provider know if y ou notice any new or unusual symptoms. This information is not int ended to replace advice given to you by your health care provider. Make sure you discuss any questions you have with your health care provider. Document Released: 12/16/19 Document Revised: 12/15/2018 Document Reviewed: 12/15/2018 [employer] Interactive Patient Education 2019 [employer]. Chemotherapy Chemotherapy is a cancer tr eatment. It uses medicines to slow down or stop the growth of cancer. You may have chemotherapy to: Cure your cancer. Prevent the cancer from growing or spreading (m etastasizing). Ease symptoms and improve your quality of life (palliative care). Improve the effects of radiation treatment. Shrink a tumor before surgery. Rid the body of cancer cell s that remain after having a tumor surgically removed. The length of chemotherapy treatment depends on many factors, including: The type and stage of your cancer. How you respond to the chemotherapy. Your side effects. What are the risks Generally, this is a safe treatment. However, p roblems may occur, including: Infection. Bleeding at the IV site. Allergic reactions to medicines. You may have side effects f rom chemotherapy. What side effects you have depends on a variety of factors, including: The type of chemotherapy medicine used. Your dosage. How long the medicine is used for. Your overall health. What happens before treatment You will meet with your cancer care team to dis cuss: How your chemotherapy medicine will be given. Common side effects and how to manage them. Your treatment schedule. You may have blood tests. You may be given medicine to help prevent commo n side effects. What happens during treatment Chemotherapy may be given c ontinuously over time, or it may be given in cycles. Some common ways chemotherapy may be given include: As a pill or capsule. As an injection. As a skin (topical) cream. As a special wafer that is put in your body whe re the cancer is. As an injection into the ce rebrospinal fluid (CSF) in the brain or spinal cord (intraventricular or intrathecal chemotherapy). Through a small, thin tube (catheter). There are different kinds of catheters. You might have one that: Goes into a vein (intravenous catheter). Connects to a device (port) that is inserted under the skin of your chest (port catheter). A port catheter connects the port to a large vein in your chest or upper arm. The port may stay in place for many weeks or months. Goes into a vein near your elbow (PICC line). This may be used for weeks or months. Goes into a vein in your ne ck that leads to your heart (non-tunneled catheter). This catheter has a risk of infection, so it is used for only a short time. Goes through the skin of yo ur chest and into a large vein that leads to your heart (tunneled catheter). This catheter can stay in your body for months or years. While you are receiving you r medicine, your cancer care team will monitor your blood pressure, heart rate, breathing rate, and blood oxygen level (vital signs) and watch for any problems. Some types of chemotherapy medicine are given only one time. Others are given for months, years, or for life. What can I expect after treatment After chemotherapy, you may have side effects, such as: Nausea and vomiting. Appetite loss. Constipation or diarrhea. Fatigue. Increased risk of infections, bruising, or blee ding. Hair loss. Mouth or throat sores. Tingling, pain, or numbness in the hands and fe et. Dry, sensitive, itchy, or sore skin. Memory changes. Follow these instructions at home: General instructions If you get chemotherapy thr ough an IV, PICC line, or port, check the site every day for signs of infection. Check for redness, swelling, pain, fluid, or warmth. Wash your hands frequently with soap and water. If soap and water are not available, use hand documentation liaison. Have other members of your household wash their hands often. Chemotherapy medicines leav e the body through urine, but they can also be present in other body fluids including stool (feces), saliva, sweat, tears, vaginal fluids, and semen. You must carefully follo w some safety precautions to prevent harm to others while you are taking these medicines: Wash any clothes, towels, a nd linens that may have your bodily fluids on them twice in a washing machine. Use very hot water. Use a condom during vaginal , anal, and oral sex while you are taking chemotherapy medicines and for 48 hours after your last dose. Practice good bathroom hygiene: Always sit when using the toilet. Close the toilet seat lid before you flush. Wash your hands thoroughly with soap and water after each time you use the toilet. Keep all follow-up visits a s told by your cancer care team. This is important. Eating and drinking Talk with a dietitian about what you should eat and drink during cancer treatment. Always wash fresh fruits and vegetables well be fore eating them. Drink enough fluid to keep urine pale yellow. Do not share food or utensils with others. Medicines Take pwly-bgh-iatgdvl and p rescription medicines only as told by your health care provider. Talk with your health care provider before taking vitamins and supplements. Some can interfere with chemotherapy. Activity Get plenty of rest. Get regular exercise such as walking, gentle yo ga, or neno chi. Return to your normal activ ities as told by your health care provider. Ask your health care provider what activities are safe for you. Contact a health care provider if: You have: A skin rash that does not go away. A headache. A stiff neck. A cough. Cold or flu symptoms. A burning feeling when urinating. Urine that smells bad. Diarrhea. Nausea. Vomiting. Blood in your urine or stool. You bleed or bruise often. You urinate more frequently than usual. You cannot eat because of mouth or throat pain. Get help right away if: You have: A fever. Redness, swelling, pain, fluid, or warmth near your IV site. Bleeding that does not stop. A seizure. Chest pain. Difficulty breathing. You cannot swallow. Summary Chemotherapy is a way to tr eat cancer. It uses medicines to slow down or stop the growth of cancer. Before treatment, you and y our cancer care team will discuss common side effects and how to manage them. The way that you will get chemotherapy medicine s depends on your condition. Take gtgw-gao-sgcszuq and p rescription medicines only as told by your health care provider. This information is not int ended to replace advice given to you by your health care provider. Make sure you discuss any questions you have with your health care provider. Document Released: 07/17/20 08 Document Revised: 07/07/2018 Document Reviewed: 07/07/2018 [employer] Interactive Patient Education 2019 Danielle Lara. Ovarian Cancer Ovarian cancer is an abnorm al growth of cells that forms a mass (malignant tumor) on one or both ovaries. The ovaries are the parts of the female reproductive system that produce eggs. Women have two o varies. They are located on either side of the u terus. What are the causes The cause of ovarian cancer is not known. What increases the risk You are more likely to develop this condition i f you: Are 50 or older. Have a personal or family h istory of endometrial, colon, breast, or ovarian cancer. Have the genes associated with breast and ovari an cancer (BRCA1 and BRCA2). Have used fertility medicines. Started menstruating before age 12. Started menopause when you were older than 50. Became for the first time at age 35 or older. Have never been . Have had hormone replacement therapy. Are overweight. Have certain inherited gene tic conditions that raise the risk of cancer, such as Pugh syndrome. Have a history of polycystic ovarian syndrome. Have tissues from the uterus growing outside of the uterus (endometriosis). What are the signs or symptoms In the early stages, ovaria n cancer often does not cause symptoms. As the cancer grows, symptoms may include: Unexplained weight loss. Pain, swelling, and bloating in the abdomen. Pain and pressure in your back and pelvis. Abnormal bleeding from the vagina. Loss of appetite. Passing urine often. Pain during sex. Fatigue. How is this diagnosed This condition may be diagnosed based on: Your medical history and a physical exam. A pelvic and abdominal exam to check your ovaries, uterus, vulva, cervix, vagina, bladder, rectum, and fallopian tubes. Tests, such as: An imaging test that uses s ound waves to take pictures of your uterus, bladder, ovaries, and fallopian tubes (transvaginal ultrasound). For this test, a sound wave probe is inserted into your vagina. CT scan, PET scan, or MRI. X-rays of the colon and rectum. Blood tests. Taking a small piece of tissue to examine it un aruna a microscope (biopsy). Removing built-up fluid fro m the abdomen (ascites) to be examined under a microscope (paracentesis). Your cancer will be assesse d (staged) based on how severe it is and how much it has spread. How is this treated This condition may be treated with one or more of the following: Surgery to remove one ovary and its fallopian tube (oophorectomy). This may be done to treat cancer in its early stages. Surgery to remove the uteru s, cervix, fallopian tubes, and ovaries (hysterectomy with bilateral salpingo-oophorectomy). Lymph tissue (lymph nodes) near the tumor and some tissue and fluid from the abdo men may also be removed and analyzed for cancer cells. This is done to treat advanced cancer. Chemotherapy. This uses med icines to kill the cancer cells. Chemotherapy may be used before or after surgery. Intraperitoneal chemotherap y (IP chemotherapy). Chemotherapy is given directly into the abdomen (peritoneum) through a special tube. Targeted therapy. This uses drugs to attack specific areas within cancer cells to kill the cells or stop them from growing. Follow these instructions at home: Lifestyle Do not use any products tarik t contain nicotine or tobacco, such as cigarettes and e-cigarettes. If you need help quitting, ask your health care provider. Do moderate exercise regularly, as told by your health care provider. Try to eat regular, healthy meals. Some of your treatments might affect your appetite. If you are having problems eating or with your appetite, ask to meet with a food and rehabilitation specialist (dietitian). Consider joining a support group with others who have cancer. A support group may help you with resources and information to help you cope with your cancer. General instructions Take izhr-hoi-zzfspkt and p rescription medicines only as told by your health care provider. Do not drive or use heavy machinery while takin g prescription pain medicine. If you are taking prescript ion pain medicine, take actions to prevent or treat constipation. Your health care provider may recommend that you: Drink enough fluid to keep your urine pale yell ow. Eat foods that are high in fiber, such as fresh fruits and vegetables, whole grains, and beans. Limit foods that are high i n fat and processed sugars, such as fried or sweet foods. Take an dsdl-yen-fdhqiff or prescription medici ne for constipation. You may need to have regula r blood tests and imaging tests to monitor your response to treatment. Keep all follow-up visits a s told by your health care provider. This is important. Where to find more information [place] [employer]: www.cancer.org National Cancer [place]: www.cancer.gov Contact a health care provider if you: Are not able to follow a prescribed treatment p [place] or take a medicine. Have any symptoms or changes that concern you. Have changes in your bowel or bladder habits. Get help right away if you have: A fever or chills. Serious side effects or an allergic reaction to a treatment or medicine. Back pain that is new. Increased pain, swelling, or bloating in your a bdomen. Summary Ovarian cancer is an abnorm al growth of cells that forms a mass (malignant tumor) on one or both ovaries. Symptoms of ovarian cancer may include pain in the abdomen, back, or pelvis. You may also have a loss of appetite and swelling or bloating in the abdomen. You are more likely to deve lop ovarian cancer if you are older than 50, but it can affect younger women, particularly those with the BRCA1 or BRCA2 genes. These genes are associated with breast and ovarian cancer. Treatment may include a com bination of surgery and medicines that kill cancer cells (chemotherapy). You may need to have regula r blood tests and imaging tests to monitor your response to treatment. This information is not int ended to replace advice given to you by your health care provider. Make sure you discuss any questions you have with your health care provider. Document Released: 08/10/20 Document Revised: 10/12/2018 Document Reviewed: 10/12/2018 [employer] Interactive Patient Education 2019 [employer]. Medication Education [Image Removed: page] [Image Removed: page] ondansetron (ondansetron 4 mg oral tablet) Use as needed for nausea. How to take medicine Take the medicine by mouth every 4 hours. Take one (1) pill each time. Use the medicine for a total of 5 days. IMPORTANT: These are your s pecific instructions. If they differ from any other information you receive, including the instructions below, talk to your prescriber or pharmacist. Instructions Keep the medicine at room temperature. Avoid he at and direct light. If you are using this medic ine regularly, it is important to take each dose of medicine on time. Keep taking the medicine even if you feel well. If you forget to take a dos e on time, take it as soon as you remember. If it is almost time for the next dose, do not take the missed dose. Return to your normal dosing schedule. Do not take 2 doses of this medicine at one time. Please tell your doctor and pharmacist about all the medicines you take. Include both prescription and giwn-rrk-bdhuudh medicines. Also tell them about any vitamins, herbal medicines, or anything else you take for your health. If your symptoms do not imp rove or they worsen while on this medicine, contact your doctor. It is very important that y ou keep all appointments for medical exams and tests while on this medicine. Cautions Tell your doctor and pharma cist if you ever had an allergic reaction to a medicine. Symptoms of an allergic reaction can include trouble breathing, skin rash, itching, swelling, or severe dizziness. Some patients taking this m edicine have experienced serious side effects. Please speak with your doctor to understand the risks and benefits associated with this medicine. Do not use the medication any more than instruc jose a. Please check with your doctor before dr inking alcohol while on this medicine. Call the doctor if there ar e any signs of confusion or unusual changes in behavior. Tell the doctor or pharmaci st if you are , planning to be , or . Do not take [place]'s wort while on this medic ine. Ask your pharmacist if this medicine can interact with any of your other medicines. Be sure to tell them about all the medicines you take. Please tell all your doctor s and dentists that you are on this medicine before they provide care. Do not start or stop any ot her medicines without first speaking to your doctor or pharmacist. Do not share this medicine with anyone who has not been prescribed this medicine. Always keep medicine out of reach of children a nd pets. Side Effects The following is a list of some common side effects from this medicine. Please speak with your doctor about what you should do if you experience these or other side effects. constipation dizziness drowsiness or sedation lack of energy and tiredness headaches Call your doctor or get med ical help right away if you notice any of these more serious side effects: agitated feeling or trouble sleeping loss of balance diarrhea fever hallucinations (unusual thoughts, seein g or hearing things that are not real) fast or irregular heart beats muscle aches, spasms or abnormal movements muscle trembling stomach pain blurring or changes of vision severe or persistent vomiting A few people may have an al lergic reactions to this medicine. Symptoms can include difficulty breathing, skin rash, itching, swelling, or severe dizziness. If you notice any of these symptoms, seek medical help quickly. Please speak with your doct or, nurse, or pharmacist if you have any questions about this medicine. [Image Removed: qrurl=[email or web address] [email or web address]&Type=V2.0] IMPORTANT NOTE: This docume nt tells you briefly how to take your medicine, but it does not tell you all there is to know about it. Your doctor or pharmacist may give you other documents about your medi cine. Please talk to them if you have any questions. Always follow their advice. There is a more complete description of this medicine available in [place]. Scan this code on your smartphone or tablet o r use the web address below. You can also ask your pharmacist for a printout. If you have any questions, please ask your pharmacist. [email or web address] aspirin (aspirin 81 mg oral tablet, chewable) This medicine is used for the following purpose s: prevent stroke prevent blood clots prevent heart attack How to take medicine Take the medicine by mouth once a day. Take one (1) pill each time. [Image Removed: sunrise_L.[email or web address]] Morning [Image Removed: noon_L.png] Noon [Image Removed: sunset_L.png] Evening [Image Removed: moonrise_L.png] Bedtime 1 pill IMPORTANT: These are your s pecific instructions. If they differ from any other information you receive, including the instructions below, talk to your prescriber or pharmacist. Instructions Chew the pill and swallow. Take the medicine with 250 mL (1 cup) of water. Sit or stand upright for 10 minutes after taking the medicine. Do not lie down. Keep the medicine at room temperature. Avoid he at and direct light. If you are using this medic ine regularly, it is important to take each dose of medicine on time. Keep taking the medicine even if you feel well. If you forget to take a dos e on time, take it as soon as you remember. If it is almost time for the next dose, do not take the missed dose. Return to your normal dosing schedule. Do not take 2 doses of this medicine at one time. Please tell your doctor and pharmacist about all the medicines you take. Include both prescription and aols-ztb-unjuaud medicines. Also tell them about any vitamins, herbal medicines, or anything else you take for your health. Cautions IMPORTANT: Children and amber nagers should not use medications containing aspirin for cold and flu symptoms or chickenpox. Tell your doctor and pharma cist if you ever had an allergic reaction to a medicine. Symptoms of an allergic reaction can include trouble breathing, skin rash, itching, swelling, or severe dizziness. There is an increased risk of bleeding while on this medicine, please tell your doctor or nurse if you notice any excessive bleeding or bruising. Do not use the medication any more than instruc jose a. If you drink more than a fe w alcoholic beverages each day, ask your doctor whether you should be on this medicine. Contact your doctor if you notice a change in the amount or darkening of your urine. Tell the doctor or pharmaci st if you are , planning to be , or . This medicine can hurt a ne w baby in the womb. If you become while on this medicine, tell your doctor immediately. Your doctor may switch you to a different medicine. Ask your pharmacist if this medicine can interact with any of your other medicines. Be sure to tell them about all the medicines you take. Please tell all your doctor s and dentists that you are on this medicine before they provide care. Do not start or stop any ot her medicines without first speaking to your doctor or pharmacist. Always keep medicine out of reach of children a nd pets. Side Effects The following is a list of some common side effects from this medicine. Please speak with your doctor about what you should do if you experience these or other side effects. drowsiness or sedation headaches nausea stomach upset or abdominal pain vomiting If you have any of the foll owing side effects, you may be getting too much medicine. Please contact your doctor to let them know about these side effects. ringing in the ears Call your doctor or get med ical help right away if you notice any of these more serious side effects: increased risk of bleeding coughing up blood or vomit that looks like coff ee grounds shortness of breath dark, tarry stool A few people may have an al lergic reactions to this medicine. Symptoms can include difficulty breathing, skin rash, itching, swelling, or severe dizziness. If you notice any of these symptoms, seek medical help quickly. Please speak with your doct or, nurse, or pharmacist if you have any questions about this medicine. [Image Removed: qrurl=[email or web address] Fpem&Type=[email or web address]] IMPORTANT NOTE: This docume nt tells you briefly how to take your medicine, but it does not tell you all there is to know about it. Your doctor or pharmacist may give you other documents about your medi cine. Please talk to them if you have any questions. Always follow their advice. There is a more complete description of this medicine available in [place]. Scan this code on your smartphone or tablet o r use the web address below. You can also ask your pharmacist for a printout. If you have any questions, please ask your pharmacist. [email or web address]/is/[email or web address]/[email or web address] carvedilol (Coreg 6.25 mg oral tablet) This medicine is used for the following purpose s: high blood pressure irregular heart beat heart failure How to take medicine Take the medicine by mouth twice a day. Take one (1) pill each time. [Image Removed: sunrise_L.png] Morning [Image Removed: noon_L.png] Noon [Image Removed: sunset_L.png] Evening [Image Removed: moonrise_L.png] Bedtime 1 pill 1 pill IMPORTANT: These are your s pecific instructions. If they differ from any other information you receive, including the instructions below, talk to your prescriber or pharmacist. Instructions Take the medicine with food. It is very important that y ou take the medicine at about the same time every day. It will work best if you do this. Keep the medicine at room temperature. Avoid he at and direct light. It is important that you ke ep taking each dose of this medicine on time even if you are feeling well. If you forget to take a dos e on time, take it as soon as you remember. If it is almost time for the next dose, do not take the missed dose. Return to your normal dosing schedule. Do not take 2 doses of this medicine at one time. Please tell your doctor and pharmacist about all the medicines you take. Include both prescription and yiuw-kkm-jrsrkwf medicines. Also tell them about any vitamins, herbal medicines, or anything else you take for your health. If you have diabetes, this medicine may hide some signs of low blood sugar, such as fast heartbeat. Check your blood sugar regularly and for other signs of low blood sugar. Symptoms of low blood sugar may include nausea, shaking, sweating, cold skin, fast heartbeat, hunger, and irritability. Do not suddenly stop taking this medicine. Check with your doctor before stopping. Cautions Tell your doctor and pharma cist if you ever had an allergic reaction to a medicine. Symptoms of an allergic reaction can include trouble breathing, skin rash, itching, swelling, or severe dizziness. Do not use the medication any more than instruc jose a. Your ability to stay alert or to react quickly may be impaired by this medicine. Do not drive or operate machinery until you know how this medicine will affect you. Contact your doctor if you notice a change in the amount or darkening of your urine. Tell the doctor or pharmaci st if you are , planning to be , or . Ask your pharmacist if this medicine can interact with any of your other medicines. Be sure to tell them about all the medicines you take. Please tell all your doctor s and dentists that you are on this medicine before they provide care. Do not start or stop any ot her medicines without first speaking to your doctor or pharmacist. Do not share this medicine with anyone who has not been prescribed this medicine. Always keep medicine out of reach of children a nd pets. Side Effects The following is a list of some common side effects from this medicine. Please speak with your doctor about what you should do if you experience these or other side effects. diarrhea dizziness drowsiness or sedation impotence Call your doctor or get med ical help right away if you notice any of these more serious side effects: swelling of the legs, feet, and hands lack of energy and tiredness slow heartbeat low blood pressure shortness of breath sudden or unexplained weight gain A few people may have an al lergic reactions to this medicine. Symptoms can include difficulty breathing, skin rash, itching, swelling, or severe dizziness. If you notice any of these symptoms, seek medical help quickly. Please speak with your doct or, nurse, or pharmacist if you have any questions about this medicine. [Image Removed: qrurl=[email or web address]%[email or web address]%[email or web address]-api.[email or web address] Fpem&Type=V2.0] IMPORTANT NOTE: This docume nt tells you briefly how to take your medicine, but it does not tell you all there is to know about it. Your doctor or pharmacist may give you other documents about your medi cine. Please talk to them if you have any questions. Always follow their advice. There is a more complete description of this medicine available in [place]. Scan this code on your smartphone or tablet o r use the web address below. You can also ask your pharmacist for a printout. If you have any questions, please ask your pharmacist. [email or web address]/[email or web address]/is/[email or web address]/pem warfarin. (warfarin 2.5 mg oral tablet) This medicine is used for the following purpose s: blood clot prevent blood clots How to take medicine Take the medicine by mouth once a day. Take one (1) pill each time. [Image Removed: sunrise_L.png] Morning [Image Removed: noon_L.png] Noon [Image Removed: sunset_L.png] Evening [Image Removed: moonrise_L.png] Bedtime 1 pill Use the medicine for a total of 30 days. IMPORTANT: These are your s pecific instructions. If they differ from any other information you receive, including the instructions below, talk to your prescriber or pharmacist. Instructions This medicine may be taken with or without food . It is very important that y ou take the medicine at about the same time every day. It will work best if you do this. Keep the medicine at room temperature. Avoid he at and direct light. It is important that you ke ep taking each dose of this medicine on time even if you are feeling well. If you forget to take a dos e on time, take it as soon as you remember. If you don't remember until the next day, please call your doctor for instructions. Never take a double dose or skip a dose unless your provider tells you to do so. Please tell your doctor and pharmacist about all the medicines you take. Include both prescription and nsnj-qjd-razfoyz medicines. Also tell them about any vitamins, herbal medicines, or anything else you take for your health. Information about Coumadin / Jantoven / Warfari n Coumadin and Jantoven are t he brand names for the generic drug warfarin. The names Coumadin, Jantoven and warfarin refer to the same medication. Warfarin is used to reduce the risk of harm cau sed by blood clots. Blood clots can sometimes c ause heart attacks, strokes, and other serious conditions. Warfarin belongs to a group of drugs called anti-coagulants. This means that the drug keeps the blood from thickening and forming clots. Anti-coagulants are often called blood thinners. Reducing the th ickening of the blood helps the blood to flow mo re freely through the body. Taking warfarin requires a careful balance because too much medication can cause bruising, bleeding that wont stop, and even . Taking too little will reduce its benefits. Follow-up and Lab Tests There is a simple blood marcelle t called INR (International Normalized Ratio) that checks to see how quickly your blood takes to form a clot. Your doctor will adjust the amount of medication you take based on this test result. You will need to follow you r doctors recommendations and have the INR test regularly. The INR will need to be checked more often when you first start taking warfarin to make sure that you are on the right amount of medication. If you are being discharged from the hospital, its very important to follow up with your primary care doctor immediately to schedule your next INR test. Foods and Alcohol Different foods can interac t with warfarin and change how well the medication works. Foods containing high amounts of vitamin K can work against warfarin and affect your INR. Your doctor or nurse can p rovide a list of foods that can affect this medi cation. Some of these foods include asparagus, broccoli, brussel sprouts, cabbage, plums, rhubarb, and dark green leafy vegetables. Dark green leafy vegetables include collards, turnip greens, mustard greens, spinach and salad greens. Some vegetable oils, such a s soybean and canola oil, can also affect warfarin. You can still eat these foods but try to eat the same amount of these foods regularly. Try to be consistent with y our intake of vitamin K containing foods. Do not eat a lot at one time and not at all at other times. This will cause the INR levels to go up and down. Alcohol can also affect war farin. Avoid drinking more than usual during holiday parties or weekends. Do not make any major mccrary es in your diet. Talk with your doctor before starting a weight loss plan. Other Medicines When warfarin is taken with other medicines, it can change the way other medicines work or the way warfarin works and change your INR. It is very important to jenna k with your healthcare provider about all the other medications you are taking including ljiy-xfh-jnrepwf medicines, antibiotics, vitamins, and herbal products. Some common noqi-tyo-ohgizj r medicines (such as aspirin) can interact with warfarin. Safety Tips You are at increased risk f or bleeding. Its important to remember that you can bleed inside your body without seeing any blood. If you fall, you may bleed inside and just see a purple bruise or no brui se at all. Its important tarik t you see a doctor right away if you fall and hurt yourself. Here are some simple safety tips: Use a soft toothbrush. Use an electric razor. Do not use open razor wi th a sharp blade. Avoid activities/sports where you can hurt your self. Use wax dental floss. Do not use toothpicks. Be careful near knives, scissors or sharp tools . Before your appointment, al ways tell your dentist or doctor that you are taking a blood thinner. Wear shoes or slippers with non-slip soles. Be careful when trimming your toe nails. Do not trim corns or calluses yourself. Call your doctor or go to [facility] immediately if you have taken a bad fall, even if you are not bleeding. Cautions Tell your doctor and pharma cist if you ever had an allergic reaction to a medicine. Symptoms of an allergic reaction can include trouble breathing, skin rash, itching, swelling, or severe dizziness. Do not use the medication any more than instruc jose a. Contact your doctor if you notice a change in the amount or darkening of your urine. Tell the doctor or pharmaci st if you are , planning to be , or . Women who are or i n their childbearing years should not touch or handle this medicine. This medicine can be absorbed through the woman's skin and harm the unborn baby. Call your doctor right away if you notice any u nusual bleeding or bruising. Do not share this medicine with anyone who has not been prescribed this medicine. Always keep medicine out of reach of children a nd pets. Side Effects The following is a list of some common side effects from this medicine. Please speak with your doctor about what you should do if you experience these or other side effects. increased risk of bruising and bleeding liver problems nausea skin irritation such as redness, itching, rash, or burning stomach upset or abdominal pain Call your doctor or get med ical help right away if you notice any of these more serious side effects: loss of balance bleeding that is severe or takes longer to stop unusual bruising or discoloration on skin chest pain coughing up blood or vomit that looks like coff ee grounds dizziness fainting severe or persistent headache sudden leg pain, swelling, warmth or redness symptoms of liver damage (s uch as yellowing of skin or eyes, dark urine, unusual tiredness or weakness; severe stomach or back pain) pale or blue skin, lips or fingernails blood in stool light colored stool dark, tarry stool symptoms of stroke (such as one-sided weakness, slurred speech, confusion) blood in urine A few people may have an al lergic reactions to this medicine. Symptoms can include difficulty breathing, skin rash, itching, swelling, or severe dizziness. If you notice any of these symptoms, seek medical help quickly. Please speak with your doct or, nurse, or pharmacist if you have any questions about this medicine. [Image Removed: qrurl=[email or web address]%3A%2F%2F[employer].[email or web address] Fpem&Type=V2.0] IMPORTANT NOTE: This docume nt tells you briefly how to take your medicine, but it does not tell you all there is to know about it. Your doctor or pharmacist may give you other documents about your medi cine. Please talk to them if you have any questions. Always follow their advice. There is a more complete description of this medicine available in [place]. Scan this code on your smartphone or tablet o r use the web address below. You can also ask your pharmacist for a printout. If you have any questions, please ask your pharmacist. https://[employer].[facility]/V2.0/is/42CE [email or web address]/pem ertapenem (ertapenem 1 gm injection) This medicine is used to treat an infection cau sed by bacteria. How to take medicine This medicine is used by injecting directly int o the vein. Use the medicine once a day. Use 1 gram each time. [Image Removed: sunrise_L.png] Morning [Image Removed: noon_L.png] Noon [Image Removed: sunset_L.png] Evening [Image Removed: moonrise_L.png] Bedtime 1 g Use the medicine for a total of 7 days. IMPORTANT: These are your s pecific instructions. If they differ from any other information you receive, including the instructions below, talk to your prescriber or pharmacist. Instructions Carefully follow the instru ctions for preparing this medicine before injection. The medicine needs to be mixed before being inj ected. Do not dilute the medicine until ready to use. If using the vial, do not r emove the medicine from the vial until ready to use. Do not mix this medicine with other solutions. Do not mix this medicine with solutions contain ing dextrose. Check the medicine before e ach use. If the liquid medicine has any particles in it, appears discolored, or if the vial appears damaged, do not use it. Keep at room temperature un til mixing. Refrigerate any extra mixed medicine until ready to use it. Store this medicine at room temperature - below 77 degrees F (25 degrees C). Protect medicine from light. Inject the medicine immediately after mixing. Never use any medicine that has . Ask your doctor, nurse or p harmacist to show you how to use this medicine correctly. It is important that you ke ep taking each dose of this medicine on time even if you are feeling well. If you miss a dose, contact your doctor for ins tructions. Please tell your doctor and pharmacist about all the medicines you take. Include both prescription and stcd-ihj-cjyblro medicines. Also tell them about any vitamins, herbal medicines, or anything else you take for your health. If your symptoms do not imp rove or they worsen while on this medicine, contact your doctor. Do not suddenly stop taking this medicine. Check with your doctor before stopping. It is very important that y ou continue using this medicine for the full number of days that it is prescribed. Please do not stop the medicine even if you start to feel better after the first few days. It is very important that y ou follow your doctor's instructions for all blood tests. It is very important that y ou keep all appointments for medical exams and tests while on this medicine. Cautions Tell your doctor and pharma cist if you ever had an allergic reaction to a medicine. Symptoms of an allergic reaction can include trouble breathing, skin rash, itching, swelling, or severe dizziness. Do not use the medication a ny more than instructed. Please tell your doctor if you have moderate to severe diarrhea while on this medicine. Do not treat the diarrhea with pyhw-njd-rjwzgga diarrhea medicine. Tell the doctor or pharmaci st if you are , planning to be , or . Ask your pharmacist if this medicine can interact with any of your other medicines. Be sure to tell them about all the medicines you take. Please tell all your doctor s and dentists that you are on this medicine before they provide care. Do not start or stop any ot her medicines without first speaking to your doctor or pharmacist. Used needles and syringes s hould be thrown away properly in a medical waste container. Ask your doctor or pharmacist if you need help. Do not share this medicine with anyone who has not been prescribed this medicine. Always keep medicine out of reach of children a nd pets. Side Effects The following is a list of some common side effects from this medicine. Please speak with your doctor about what you should do if you experience these or other side effects. diarrhea headaches reaction at the area of the injection (pain, re dness, swelling) nausea pain near injection site stomach upset or abdominal pain yeast infection of mouth vaginal itching or yeast infection vomiting Call your doctor or get med ical help right away if you notice any of these more serious side effects: severe allergic reaction severe, watery or bloody diarrhea swelling of the face, mouth, tongue or throat seizures severe stomach or bowel pain blood in stool symptoms of stroke (such as one-sided weakness, slurred speech, confusion) unusual or unexplained tiredness or weakness A few people may have an al lergic reactions to this medicine. Symptoms can include difficulty breathing, skin rash, itching, swelling, or severe dizziness. If you notice any of these symptoms, seek medical help quickly. Please speak with your doct or, nurse, or pharmacist if you have any questions about this medicine. [Image Removed: qrurl=https%3A%2F%2Fdignity-api.[facility]%[email or web address] Fpem&Type=V2.0] IMPORTANT NOTE: This docume nt tells you briefly how to take your medicine, but it does not tell you all there is to know about it. Your doctor or pharmacist may give you other documents about your medi cine. Please talk to them if you have any questions. Always follow their advice. There is a more complete description of this medicine available in [place]. Scan this code on your smartphone or tablet o r use the web address below. You can also ask your pharmacist for a printout. If you have any questions, please ask your pharmacist. [email or web address]://[email or web address].[facility]/V2.0/is/42CE [email or web address]/pem APAP/butalbital/caffeine (Fioricet 325/50/40) Use as needed for headaches. How to take medicine Take the medicine by mouth every 6 hours. Take one (1) pill each time. Use the medicine for a total of 5 days. IMPORTANT: These are your s pecific instructions. If they differ from any other information you receive, including the instructions below, talk to your prescriber or pharmacist. Instructions This medicine may be taken with or without food . Keep the medicine at room temperature. Avoid he at and direct light. Please tell your doctor and pharmacist about all the medicines you take. Include both prescription and upoq-abj-lfozrus medicines. Also tell them about any vitamins, herbal medicines, or anything else you take for your health. This medicine may decrease the effectiveness of some controls which use hormones (such as control pills and patches). Use an extra form of control, such as condoms, while on this medicine. Do not take more than 6 pills in a day. Cautions This medicine can be habit- forming. If you use this medicine regularly for a long time, it can lead to withdrawal symptoms when you stop. Please use this medicine only as directed. Tell your doctor and pharma cist if you ever had an allergic reaction to a medicine. Symptoms of an allergic reaction can include trouble breathing, skin rash, itching, swelling, or severe dizziness. Do not use the medication any more than instruc jose a. Your ability to stay alert or to react quickly may be impaired by this medicine. Do not operate machinery or drive while on this medicine. Do not drink beverages with alcohol while on th is medicine. Tell the doctor or pharmaci st if you are , planning to be , or . Ask your pharmacist if this medicine can interact with any of your other medicines. Be sure to tell them about all the medicines you take. Please tell all your doctor s and dentists that you are on this medicine before they provide care. Do not start or stop any ot her medicines without first speaking to your doctor or pharmacist. Do not share this medicine with anyone who has not been prescribed this medicine. This medicine contains acet aminophen. There are many medicines with acetaminophen. Taking these medicines together can cause you to get too much acetaminophen. This can cause serious liver problems. Lo ok carefully on the package of all your medicines to see if acetaminophen is included. Ask your pharmacist which medicines you can take safely. Always keep medicine out of reach of children a nd pets. Side Effects The following is a list of some common side effects from this medicine. Please speak with your doctor about what you should do if you experience these or other side effects. constipation dizziness drowsiness or sedation dry mouth nausea shortness of breath stomach upset or abdominal pain vomiting If you have any of the foll owing side effects, you may be getting too much medicine. Please contact your doctor to let them know about these side effects. decreased appetite lack of energy and tiredness Call your doctor or get med ical help right away if you notice any of these more serious side effects: changes in memory, mood, or thinking depression or feeling sad symptoms of liver damage (s uch as yellowing of skin or eyes, dark urine, unusual tiredness or weakness; severe stomach or back pain) A few people may have an al lergic reactions to this medicine. Symptoms can include difficulty breathing, skin rash, itching, swelling, or severe dizziness. If you notice any of these symptoms, seek medical help quickly. Please speak with your doct or, nurse, or pharmacist if you have any questions about this medicine. [Image Removed: qrurl=https%3A%2F%2Fdignity-api.[facility]%[email or web address]%[email or web address] Fpem&Type=V2.0] IMPORTANT NOTE: This docume nt tells you briefly how to take your medicine, but it does not tell you all there is to know about it. Your doctor or pharmacist may give you other documents about your medi cine. Please talk to them if you have any questions. Always follow their advice. There is a more complete description of this medicine available in [place]. Scan this code on your smartphone or tablet o r use the web address below. You can also ask your pharmacist for a printout. If you have any questions, please ask your pharmacist. [email or web address]/is/[email or web address]/pem Clothes at Bedside: Undergarments Jewelry at Bedside: None Miscellaneous Items at Bedside: None Personal Devices at Bedside: None I understand that [facility] is not responsible for any personal belongings/effects or valuables that have not been identified on the valuables and belongings list. Any personal effects brought int o the facility and not recor ded on the valuables and belongings form are the responsibility of the patient/family/significant other.I have received the indicated patient education materials/instructions and medication list and have verbalized underst anding. 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 Signature: Relationship to Patient: Witness Signature: Date/Time: Physical Therapy Daily Patient: JOSEPH VALDIVIA MA 12/15/2019 [facility] Progress Note Age: 79 years Sex: F : 1 Active Insurance: MEDICARE [id number] [facility] Admitting MD: Tito Saunders MD Location: [facility] B3A: [id number]: [id number] PCP: Carol Ruff MD Author: Bisi Taylor PT, DPT Rehab Potential and Diagnosis Assessment Precautions/Contraindicatio ns: Fall risk - supervision with [facility] Contact Isolation - ESBL Rehabilitation Potential: Good Treatment Diagnosis for PT: unsteadiness on fee t Medical Necessity Justification (PT): weakness, deconditioning Narratives Subjective Patient awake, supine in be d upon arrival, identified with 2-person identification, and agreeable to participate with therapy; 'My legs cramp up if I walk too far'. Patient sitting in bedside chair at end of session, call light within reach, son present, and RN aware of status. Objective Chart reviewed, spoke with RN and reported patient stable to participate, and pt. seen bedside from 1545 to 1610 for gait training. Assessment Patient is very pleasant an d cooperative; upon arrival she states, 'I guess I rested so I can walk now'. She tolerated increased ambulation this date however demonstrates a flexed trunk posture requiri ng frequent verbal/tactile c ues to remain upright. After second bout of 100 feet she complained of 'pain and cramping' in bilateral lower legs and requires a standing rest break. Once recovered she walk ed a short distance to her r oom and recovered in sitting; she tolerated static stretches of lower leg and demonstrated understanding to complete on own (son present to ensure compliance). Patient will b e safe to discharge home whe n medically ready with family supervision for high- level balance activities. Home health PT recommended for continued mobility and high-level balance training. 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 Historical Rehab Info Historic Info (rehab) Primary Diagnosis: nausea, vomiting History of Present Illness: Pt is a 79 year old female admitted to [facility] for nausea, vomiting, and diarrhea. Pt with recent hx of multiple infarcts. Past Medical History - Reha b: 1. Hypertension. 2. Hyperlipidemia. 3. Migraine headaches. 4. Cerebrovascular accident, recent. Multiple surgeries includin. Total right knee replacement. 2. Hernia repair. 3. Hysterectomy. Date/Onset of Injury/Limitation: 11/27/2019 00: 00 Social History (rehab) Patient's Responsibilities: Driving, Hobbies, Housework, Laundry, Meal preparation, Yardwork Lives In: Single level home Living Situation: Lives with family Preferred Language for Healthcare: Tunisian Objective Assessments Functional Mobility Bed Mobility: Modified independent Bed Mobility Assistive Device: Bed rails Bed Mobility Details: HOB elevated to 60 degree s supine to sitting left EOB. General Transfers: Supervision General Transfers Assistive Device: Front wheel walker General Transfer Details: Sit to/from stand. Toilet Transfers: Supervision Toilet Transfers Assistive Device: Front wheel walker Toilet Transfer Details: Sit to/from stand. Ambulation (PT): Supervision Ambulation Assistive Devices: Front wheel walke r Ambulation Details: Pt. amb ulated 2 bouts of 100 feet and 1 bout of 20 feet with FWW; mechanics include decreased speed, flexed trunk/hip posture, short/inconsistent step lengths, minimal single-limb s upport time, and limited foot clearance during s wing phase. Ambulation Ambulation Distance: 100 ft Ambulation Time (RT): 5 min Functional Balance Functional Sitting Balance (Static): Independen t Functional Sitting Balance (Dynamic): Supervisi on Functional Standing Balance (Static): Supervisi on Functional Standing Balance (Dynamic): Supervis ion Dynamic Standing Balance Details: Bilat UE on F WW. Balance Details: No losses of balance noted as pt. depended on UE support of FWW. Wide base of support noted and narrow center of balance as she was limited in reach outside frame of FWW. Activity Tolerance: Activit y limited by fatigue/decreased endurance and bilateral LE 'cramping' and pain. Treatment Treatment PT TX Plan/Goals Est w Patient/Caregiver: Yes PT Treatment Frequency: 4 days per week PT Treatment Duration: Two weeks Pt/Caregiver Expressed Goal for PT: Improve mobility/balance and return to PLOF. Patient Family Preferences PT: Discharge home w ith HHPT. PT Intervention(s): Balance training, Bed mobility training, Body mechanics training, Caregiver training, Energy conservation, Ergonomics training, Gait training, Heat, Individual instruction, Neuromus cular re-education, Pain man agement, Patient education, Safety education, Therapeutic activity, Therapeutic exercise, Transfer training Plan for Next Session Increase functional mobilit y; standing balance activities without FWW. LE strengthening exercises standing. 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 PT Senior Care Goal Goal: Pt to perform ambulat ion c FWW 50' Mod I by 01/12/2020 00:00. Status: Progressing PT Short Term Goal Goal: Pt to perform bed mobility Mod I by 12/14 00:00. Status: Goal Met Goal: Pt to perform transfers c FWW SPV by 12/15/2019 00:00. Status: Goal Met Goal: Pt to perform ambulat ion c FWW ~50' SPV by 12/15/2019 00:00. Status: Goal Met Goal: Pt. will perform all bed mobility from flat surface indepdently. by 12/22/2019 00:00. Status: Active Goal: Pt. will perform all transfers from multiple height surfaces modified independently. by 12/22/2019 00:00. Status: Active PT Exercise Exercise: Long-sitting PROM gastroc stretch with gait belt. Sets: 1 Reps: 2 Notes: 30 second holds; each LE. Education PT Education Provided For: Activity precautions, Assistive devices, Body mechanics, Energy conservation, Ergonomics, Functional mobility training, Home exercise program, Joint protection, Positioning, Posture, Safety, Symptom management, Therapy carmen n of care Individuals Taught by PT: Patient Teaching Method: Demonstration, Explanation Response to Teaching: Communicated understandin g, Demonstrated understanding Preferences to Learning: Any/all Readiness to Learn: Accepting Barriers to Learning: Acuity of Illness, Cognit gisella deficit, Physical Teach Back: Yes Additional PT Education Inf ormation: Discussed importance of mobility during hospital stay and recovery including progressive/frequent out of bed activity and ambulation. Reviewed discharge recommendations including home with home health PT. This note contains the most recent documentation, from this therapist, over the last 12 hours. It may contain documentation from multiple sessions documented independently. Electronically Signed By: Bisi Taylor PT, DPT On 12/15/19 16:31 Co Signature By: Modify Signature By: Progress Note Patient: JOSEPH VALDIVIA MRN: [id number] 12/12/2019 [facility] Age: 79 years Sex: F : 1940 Active Insu osman: MEDICARE [id number] [facility] Admitting MD: Saad Yoo DO Location: [facility] B3A: B331: 01 PCP: Carol Ruff MD Author: Helen Black MD Reviewed path report. Malign shankar noted. Patient will need chemo. Need to discuss with family and patient. Could give first dose in hospital depending on family wishes. Dr Helen Black Posting Clerk Onc Attending [facility] [phone] (cell) Electronically Signed By: Helen Black MD On 12/12/19 16:08 Co Signature By: Modify Signature By: Physical Therapy Initial Patient: JOSEPH VALDIVIA MA 12/12/2019 [facility] Age: 79 years Sex: F : 1 Active Insurance: MEDICARE [id number] [facility] Admitting MD: Dennys Yoo DO Location: [facility] B3A: B331: 01 PCP: Carol Ruff MD Author: Alvaro Guillermo PT Rehab Potential and Diagnosis Assessment Precautions/Contraindications: fall risk Treatment Diagnosis for PT: unsteadiness on fee t Medical Necessity Justification (PT): weakness, deconditioning Narratives Subjective Pt is identified by MRN and . RN Dayami permits treatment. Pt states, 'I'm just upset because I have cancer.' Pt consents to PT evaluation. Private caregiver is present in room for duration of session. Caregiver reporting this is her 1st day with patient. Objective Orders received, chart revi ewed, PT eval complete. OT present to maximize safety and for optimal therapeutic intervention. Face evaluation time from 1220- 1300with total minutes for entire evaluation in cluding documentation and co mmunication with RN of 70minutes. Pt is in room B331. Pt is found supine in bed and left up in chair. Call light is left in reach and RN made aware of patient status. Pt presents to PT as a mode rate complexity evaluation due to at least 2 personal factors and/or comorbidities that impact the plan of care, the clinical presentation is evolving and changing characteri stics as described in assess ment, and examinations of body systems using standardized tests and measures addressed 3 or greater elements involving the body structures and functions, activity limitations , and participation restrictions affecting safe functional mobility. Assessment Patient is a 79 year old fe male admitted to [facility] with nausea, vomiting, and diarrhea. Patient recently admitted at [facility] for multiple infarcts. She had been at rehab and then discharged home for a few d ays prior to returning to [facility]. Patient currently demonstrating some intermittent expressive aphasia, deconditioning, and impulsive decision making. PT spoke to son on this date who has arranged 26/04 ca regiving assistance at home in combination with home health therapies. Educated patient on safety while caregiver present. Patient would benefit from more rehab in the home setting to address safety at home and address all limitat ions to allow for safe return to prior level of function. We will continue to progress patient mobility to tolerance. RN aware. Historical Rehab Info Historic Info (rehab) Primary Diagnosis: nausea, vomiting History of Present Illness: Pt is a 79 year old female admitted to [facility] for nausea, vomiting, and diarrhea. Pt with recent hx of multiple infarcts. Past Medical History - Reha b: PAST MEDICAL HISTORY: 1. Hypertension. 2. Hyperlipidemia. 3. Migraine headaches. 4. Cerebrovascular accident, recent. PAST SURGICAL HISTORY: Multiple surgeries includin. Total right knee replacement. 2. Hernia repai r. 3. Hysterectomy. Date/Onset of Injury/Limitation: 11/27/2019 00: 00 Social History (rehab) Patient's Responsibilities: Driving, Hobbies, Housework, Laundry, Meal preparation, Yardwork Lives In: Single level home Living Situation: Lives with family Preferred Language for Healthcare: Tunisian PLOF (rehab) Bed Mobility-PLOF: Mod independent General Transfers-PLOF: Mod independent Car Transfers-PLOF: Mod independent Toilet Transfers-PLOF: Mod independent Tub/Shower Transfer-PLOF: Mod independent Ambulation at Home-PLOF: Mod independent Community Ambulation-PLOF: Mod independent Stairs-PLOF: Mod independent Bathing-PLOF: Mod independent Dressing-PLOF: Mod independent Toileting-PLOF: Mod independent Grooming-PLOF: Mod independent Kepv-Ziebhdk-ECGW: Mod independent Swallowing-PLOF: Mod independent Communication-PLOF: Mod independent Objective Assessments Functional Mobility Bed Mobility: Minimal assistance Bed Mobility Details: supine>sit Chente. cues for sequencing. General Transfers: Minimal assistance General Transfers Assistive Device: Front wheel walker General Transfer Details: s it>stand c FWW CGA. transfer c FWW to toilet. sit>stand c FWW. transfer to chair CGA. Cues for sequencing. Ambulation (PT): Minimal assistance Ambulation Assistive Devices: Front wheel walke r Ambulation Details: CGA; 20' x 2 Ambulation Ambulation Distance: 20 ft Functional Balance Functional Sitting Balance (Static): Supervisio n Functional Sitting Balance (Dynamic): Minimal a ssistance Functional Standing Balance (Static): Minimal a ssistance Static Standing Balance Details: CGA c FWW Functional Standing Balance (Dynamic): Minimal assistance Dynamic Standing Balance Details: CGA c FWW Balance Details: No LOB Activity Tolerance: decreased Cognition/Vision/Perception Cognitive Status: Impaired orientation, Impaired problem solving and reasoning, Impaired safety and judgment, Impaired sequencing, Impaired sustained attention, Impaired divided attention, Easily distracted UE Status UE Status: Intact BUE, Other: L wrist painful LE Status LE Status: Intact BLE, ROM WFL, MMT WFL LE MMT Right Right Hip Flexion Strength: 3+ Right Hip Abduction Strength: 4- Right Hip Adduction Strength: 4- Right Knee Flexion Strength: 4+ Right Knee Extension Strength: 5 LE MMT Left Left Hip Flexion Strength: 4 Left Hip Abduction Strength: 4+ Left Hip Adduction Strength: 4+ Left Knee Flexion Strength: 4 Left Knee Extension Strength: 4+ Treatment Treatment PT TX Plan/Goals Est w Patient/Caregiver: Yes PT Treatment Frequency: 4 days per week PT Treatment Duration: Two weeks PT Intervention(s): Balance training, Bed mobility training, Body mechanics training, Gait training, Neuromuscular re-education, Pain management, Patient education, Safety education, Therapeutic activity, Therapeutic exercise, Transfer training Plan for Next Session PT or CEPHALOMETRIC ANALYST may treat. Address increasing all fun ctional mobility. Therapy Discharge Recommendations PT DC Recommendations: home with HHPT and 26/04 caregiving PT Senior Care Goal Goal: Pt to perform ambulat ion c FWW 50' Mod I by 01/12/2020 00:00. Status: Active PT Short Term Goal Goal: Pt to perform bed mobility Mod I. Status: Active Goal: Pt to perform transfers c FWW SPV. Status : Active Goal: Pt to perform ambulation c FWW ~50' SPV. Status: Active Education PT Education Provided For: Anatomy, Assistive devices, Body mechanics, Energy conservation, Functional mobility training, Safety, Symptom management, Therapy plan of care Individuals Taught by PT: Patient Teaching Method: Demonstration, Explanation Response to Teaching: Communicated understandin g, Needs reinforcement Preferences to Learning: Any/all Readiness to Learn: Accepting Barriers to Learning: Acuity of Illness, Cognit gisella deficit Teach Back: Yes Pain Pain Intensity: 0 This note contains the most recent documentation, from this therapist, over the last 12 hours. It may contain documentation from multiple sessions documented independently. Electronically Signed By: Alvaro Guillermo PT On 12/12/19 15:34 Co Signature By: Modify Signature By: Palliative Care Note Chart reviewed, spoke with Phyllis Bass, met with pt. and pt.'s son Pepe at bedside for follow up. Clerk Carrier introduced self and role to Pepe. Pt. alert, pleasant, and denied discomfort and denied h 12/11/2019 [facility] any interventions requ ests at time of visit. Pepe explained plan is for pt. to have an MRI (MRI Brain order noted), voiced they are waiting for biopsy results, and continued plan will be to follow [facility] up with Dr. Black out patie nt for further treatment options based on biopsy results. Education provided regarding community palliative care including philosophy and services. Printed resources provided . Pepe voiced understanding and spoke of pt. already having PT, OT, home health, and private duty caregivers 'lined up.' Clerk Carrier acknowledged and encouraged [facility] for extra layer of support. Pepe voiced un derstanding and explained he would further review at a later time. Pt. and Pepe voiced appreciation for visit. Electronically Signed By: Andreas Morris RN On 12/11/19 17:07 Co Signature By: Modify Signature By: Andreas Morris RN On 12/11/19 17:07 Cardiology Report 12/10/2019 [facility] DATE OF PROCEDURE: 12/09/2019 [facility] PROCEDURE: Nuclear portion of Lexiscan nuclear s tress test. INDICATION: Abnormal troponin. PROCEDURE DETAILS: Lexiscan stress nuclear was performed per protocol. The patient received 11 mCi of Cardiolite at rest followed by 33 mCi of Cardiolite at stress. The SPECT and gated SPECT imaging wer e obtained. EKG portion has been dictated separa janice. FINDINGS: The quality of the study is good. There is no evidence of abnormal lung activity. SPECT imaging showed moderate in size, severe in intensity, mid and apical inferior wall fixed defect. No sign ificant reversible defect wa s seen. Gated SPECT imaging showed mid and apical inferior wall hypokinesis. EKG portion has been dictated separately. CONCLUSION: 1. No significant reversible defect was seen. 2. Moderate in size, severe in intensity, mid and apical inferior wall fixed defect was seen. 3. Gated SPECT imaging showed hypokinesis of mid and apical inferior wall. 4. EKG portion has been dictated separately. Dictated by: JONATHAN GORE MD PHD /[facility] /[facility] Doc: [id number] Job: [id number] cc: Electronically Signed By: Jonathan Gore MD PHD On 01/17/20 08:12 Co Signature By: Modify Signature By: Cardiology Report 12/09/2019 [facility] DATE OF PROCEDURE: 12/09/2019 [facility] EKG PORTION OF LEXISCAN STRESS TEST INDICATION: Abnormal troponin. PROCEDURE: Lexiscan stress n uclear was performed per protocol. Baseline heart rate was 77 beats per minute and pankaj to a maximum of 99 beats per minute. Baseline blood pressure was 147/87 mmHg, at the t cy of the maximum stress wa s 119/73 mmHg. Baseline EKG was sinus rhythm. It did not show any ST-T segment changes indicating of ischemia. No significant arrhythmia noted. Very short period of abdominal discomfort reported that re solved by itself. Nuclear portion will be dictated separately. CONCLUSIONS: 1. No ST-T segment changes indicating of ischemi a was seen. 2. No significant arrhythmia noted. 3. Very mild epigastric discomfort reported that resolved by itself. 4. Normal blood pressure response. 5. Nuclear portion will be dictated separately. Dictated by: JONATHAN GORE MD PHD /[facility] /[facility] Doc: [id number] Job: [id number] cc: Electronically Signed By: Jonathan Gore MD PHD On 01/17/20 08:11 Co Signature By: Modify Signature By: Procedure Note Patient: JOSEPH VALDIVIA MRN: [id number] 12/07/2019 [facility] Age: 79 years Sex: F : 1940 Active Insu osman: MEDICARE [id number] [facility] Admitting MD: Saad Yoo DO Location: [facility] B3A: B331: 01 PCP: Carol Ruff MD Author: Rolando Ortiz MD Postoperative Information Procedure: Imaging Guided Cystic Ovarian Mass biopsy Modality: CT Preoperative Diagnosis: Malignancy Postoperative Diagnosis: Same. Performed by: Rolando Ortiz MD. Process Improvement Engineer: N/A. Findings: 17 G Biopsy needle localizing mid pelvis mass. No post procedural hematoma Anesthesiologist: N/A. Specimens Removed: 4 x 18 G cores, 5 ml aspirate d blood-tinged fluid Estimated Blood Loss: scant. Anesthesia Type: 5 ml 1% Local lidocaine. Sedation:1mgIV Versed, 25 mcg IV Fentanyl Complications: None. Patient status at the end of procedure: Stable. Disposition: Patient returne d to hospital room for continued monitoring, recovery, and care. (Please see dictated Radiology Report for proced ural details) Electronically Signed By: Rolando Ortiz MD On 12/07/19 14:08 Co Signature By: Modify Signature By: Palliative Care Note Chart reviewed, spoke with Phyllis Oreilly about plan, cardiology consult for cardiac clearance noted to be pending, and met with pt. and pt.'s caregiver Emilee at bedside for follow up. Emilee repor 12/05/2019 [facility] pt.'s son Pepe had recen tly left to knot picker cloth dinner for all of them and would be returning later tonight. Pt. did not remember health technical writer from previous visit 12/01/2019. Clerk Carrier asked pt. about co Medical Betito ter mfort. Pt. stated 'I feel ok ' and denied pain and denied having any interventions requests at time of visit. This RN asked about plan with pt. stating 'I guess a procedure later' and noted to have rathe r flat affect. Clerk Carrier acknow ledged and spoke words of encouragement and normalized feelings. Pt. smiled and voiced appreciation for visit. Palliative care contact information provided at bedside and Lesvia na reported she would give u pdate to pt.'s son Pepe. Pt. and Emilee voiced appreciation for visit. Palliative care will continue to follow to provide support. Electronically Signed By: Andreas Morris RN On 12/04/19 18:12 Co Signature By: Modify Signature By: Consultation Patient: JOSEPH VALDIVIA MRN: [id number] 12/03/2019 [facility] Age: 79 years Sex: F : 1940 Active Ins urance: MEDICARE [phone] Medical Center Admitting MD: Tito Saunders MD Location: [facility] B3A: B331: 01 PCP: Carol Ruff MD Author: Jael Rzio NP Reason for Consultation Pelvic mass Chief Complaint Abdominal pain, weakness. History of Present Illness Ms Valdivia is a pleasant [age] year old female who has a history of CVA, DVT s/p IVC filter who was in her normal state of health when she developed increased abdominal pain and weakness. She currently l clint at home with a caregive r and her son, Pepe due to recent CVA, ongoing in nature. She was brought to the ED via EMS where she had a II, III and AVF ST elevation with positive troponin. She underwent abdominal imaging, both CT and US, and was found to have a 14cm x 14cm pelvic mass with associated free fluid. Per patient, who is mildly confused, she had no symptoms of nausea, emesis or abdominal pa in. She does report early sa tiety, but is having daily bowel movements and urination. She also reports a history of hysterectomy, but is unaware if she still had her ovaries. Review of Systems Constitutional: No fevers, chills, sweats Eye: No recent visual problems ENMT: No ear pain, nasal congestion, sore throa t Respiratory: No shortness of breath,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 Body surface area: BSA: 1.82m^2. Body mass index: BMI: 26kg/m^2. Cardiac Anatomy Left ventricle: The cavity size was normal. Wall thickness was normal. Systolic function was normal. The estima jose a ejection fraction was 55%. Regional wall motion abnormali ties: Mild hypokinesis of the inferior myocardium. Doppler parameters are consistent with abnormal left ventricular relaxa tion (grade 1 diastolic dysfunction). Right ventricle: The cavity size was normal. Wal l thickness was normal. Systolic function was normal. Left atrium: The LA volume normal. The atrium wa s normal in size. Right atrium: The atrium was normal in size. Mitral valve: Moderately thickened leaflets. . M obility was not restricted. Doppler: Transvalvular velocity was within the normal range. There was no evidence for stenosis. Mild regurgitation. Tricuspid valve: Structurally normal valve. Dopp ler: Transvalvular velocity was within the normal ran ge. Trivial regurgitation. Aortic valve: Trileaflet; mildly thickened, mild ly calcified leaflets. Mobility was not restricted. Doppler: Transvalvular velocity was within the normal range. There was no stenosis. Mild regurgitation. Pulmonic valve: Structurally normal valve. Doppl er: Transvalvular velocity was within the normal ran ge. There was no evidence for stenosis. Aorta: Aortic root: The aortic root was normal i n size. Pulmonary artery: Systolic pressure was within t he normal range, estimated to be 30mm Hg. Systemic veins: Inferior vena cava: The vessel was normal in siz e. The respirophasic diameter changes were in the diamond l range (>= 50%), consistent with normal central venous pressure. Pericardium: The pericardium was normal in appea osman. There was no pericardial effusion. Measurements Left ventricle Value Reference LV ID, ED, PLAX (L) 3.6 cm 3.8 - 5.2 LV ID, ES, PLAX 2.7 cm 2.2 - 3.5 LV fx shortening, PLAX (L) 25 % 27 - 45 LV ID, major axis, ED, A4C 8.2 cm --------- LV ID, major axis, ES, A4C 6.9 cm --------- LV area, ED, A4C 29 cm^2 --------- LV area, ES, A4C 19 cm^2 --------- LV fx area change, A4C 35 % --------- LV ID, major axis, ED, A2C 7.0 cm --------- LV ID, major axis, ES, A2C 7.3 cm --------- LV area, ED, A2C 26 cm^2 --------- LV area, ES, A2C 18 cm^2 --------- LV fx area change, A2C 30 % --------- LV PW thickness, ED 0.9 cm 0.6 - 0.9 IVS/LV PW ratio, ED 0.71 --------- LV ejection fraction (L) 51 % 54 - 74 LV end-diastolic volume, 1-p A2C 80 ml 41 - 133 LV end-systolic volume, 1-p A2C 38 ml 10 - 54 LV ejection fraction, 1-p A2C 52 % 52 - 76 LV end-diastolic volume, 1-p A4C 87 ml 48 - 140 LV end-systolic volume, 1-p A4C 45 ml 12 - 60 LV ejection fraction, 1-p A4C 48 % 46 - 78 Stroke volume, 1-p A4C 42 ml --------- LV end-diastolic volume/bsa, 1-p 48 ml/m^2 30 - 82 A4C LV end-systolic volume/bsa, 1-p 25 ml/m^2 7 - 3 5 A4C Stroke volume/bsa, 1-p A4C 23 ml/m^2 --------- LV end-diastolic volume, 2-p 90 ml 46 - 106 LV end-systolic volume, 2-p 42 ml 14 - 42 LV ejection fraction, 2-p (L) 53 % 54 - 74 LV end-diastolic volume/bsa, 2-p 49 ml/m^2 29 - 61 LV end-systolic volume/bsa, 2-p 23 ml/m^2 8 - 2 4 Stroke volume/bsa, 2-p 23 ml/m^2 --------- LV end-diastolic volume, (L) 55 ml 56 - 104 Teichholz MM LV end-diastolic volume/bsa, (L) 30 ml/m^2 35 - 75 Teichholz MM LV e', lateral 0.086 m/sec --------- LV E/e', lateral 15 --------- LV e', medial 0.049 m/sec --------- LV E/e', medial 26 --------- LV e', average 0.067 m/sec --------- LV E/e', average 19 --------- Ventricular septum Value Reference IVS thickness, ED 0.7 cm 0.6 - 0.9 LVOT Value Reference LVOT ID, S 2.0 cm --------- LVOT area 3 cm^2 --------- LVOT peak velocity, S 1.08 m/sec --------- LVOT mean velocity, S 0.69 m/sec --------- LVOT VTI, S 26.4 cm --------- LVOT peak gradient, S 5 mm Hg --------- LVOT mean gradient, S 2 mm Hg --------- Aortic valve Value Reference Aortic valve peak velocity, S 1.6 m/sec ------- -- Aortic valve mean velocity, S 1.32 m/sec ------ --- Aortic valve VTI, S 33.8 cm --------- Aortic mean gradient, S 7 mm Hg --------- Aortic peak gradient, S 10 mm Hg --------- VTI ratio, LVOT/AV 0.78 --------- Aortic valve area, VTI 2.45 cm^2 --------- Aortic valve area/bsa, VTI 1.35 cm^2/m^2 ------ --- Velocity ratio, peak, LVOT/AV 0.69 --------- Aortic valve area, peak velocity 2.17 cm^2 ---- ----- Aortic valve area/bsa, peak 1.19 cm^2/m^2 ----- ---- velocity Velocity ratio, mean, LVOT/AV 0.52 --------- Aortic valve area, mean velocity 1.64 cm^2 ---- ----- Aortic valve area/bsa, mean 0.9 cm^2/m^2 ------ --- velocity Aortic regurg peak velocity 3.82 m/sec -------- - Aortic regurg deceleration 20377 cm/s^2 ------- -- Aortic regurg pressure half-time 455 ms ------- -- Aortic regurg peak gradient 58 mm Hg --------- Aorta Value Reference Aortic root ID 2.3 cm <4.0 Ascending aorta ID, A-P, S 2.7 cm 1.9 - 3.5 Left atrium Value Reference LA ID, A-P, ES 3.0 cm 2.7 - 3.8 LA ID/bsa, A-P 1.6 cm/m^2 1.5 - 2.3 LA area, ES, A4C 14 cm^2 <=20 LA area, ES, A2C 10 cm^2 --------- LA ID, S-I, A2C 3.5 cm --------- LA volume, ES, 1-p A4C 33 ml 22 - 52 LA volume/bsa, ES, 1-p A4C 18 ml/m^2 11 - 40 LA volume, ES, 1-p A2C 25 ml 22 - 52 LA volume/bsa, ES, 1-p A2C 14 ml/m^2 13 - 40 LA volume, ES, 2-p 31 ml --------- LA volume/bsa, ES, 2-p 17 ml/m^2 16 - 34 LA/aortic root ratio 1.3 --------- Mitral valve Value Reference Mitral E-wave peak velocity 1.25 m/sec -------- - Mitral A-wave peak velocity 1.51 m/sec -------- - Mitral mean velocity, D 1.04 m/sec --------- Mitral deceleration slope 413 cm/s^2 --------- Mitral deceleration time 176 ms --------- Mitral pressure half-time 88 ms --------- Mitral mean gradient, D 5 mm Hg --------- Mitral peak gradient, D 11 mm Hg --------- Mitral E/A ratio, peak 0.8 --------- Mitral E-wave VTI 30.8 cm --------- Mitral valve area, PHT, DP 2.5 cm^2 --------- Mitral valve area/bsa, PHT, DP 1.37 cm^2/m^2 -- ------- Mitral valve area, LVOT 2.7 cm^2 --------- continuity Mitral valve area/bsa, LVOT 1.48 cm^2/m^2 ----- ---- continuity Mitral annulus VTI, D 30.8 cm --------- Pulmonary arteries Value Reference PA pressure, S, DP 27 mm Hg --------- PA pressure, ED, DP 14 mm Hg --------- Tricuspid valve Value Reference Tricuspid regurg peak velocity 2.6 m/sec ------ --- Tricuspid peak RV-RA gradient 27 mm Hg -------- - Systemic veins Value Reference Estimated CVP 5 mm Hg --------- Right ventricle Value Reference RV ID, ED, PLAX 3.4 cm --------- RV ID, ED 3.4 cm --------- RV pressure, S, DP 32 mm Hg --------- Pulmonic valve Value Reference Pulmonic valve peak velocity, S 1 m/sec ------- -- Pulmonic acceleration time 127 ms --------- Pulmonic regurg velocity, ED 1.47 m/sec ------- -- Pulmonic regurg gradient, ED 9 mm Hg --------- Legend: (L) and (H) pepe values outside specified refere nce range. SHIVA ECHEVERRIA MD [id number] Post-Op Note 11/29/2019 [place] gooed Patient: JOSEPH VALDIVIA ( EV) [facility] Age: 79 years Sex: F : 1940 Associated Diagnoses: None Author: Otoniel Martin MD Postoperative Information Procedure: Lumbar Puncture Preoperative Diagnosis: Headaches. Postoperative Diagnosis: Same. Performed by: Otoniel Martin MD. Process Improvement Engineer: N/A. Anesthesiologist: N/A. Findings (Not documented) Specimens Removed: Clear CSF was obtained. , Please see dictated report for volume .. Estimated Blood Loss: None. Anesthesia Type: Local. Complications: None. Patient status at the end of procedure:: Stable. Electronically Signed By: Otoniel Martin MD On 11/29/19 14:12 Co Signature By: Modify Signature By: MR Orb/Face/Neck wo Con MRI Metal Screening V2 Entered On: 0 11/27/2019 15:34 MST 11/28/2019 [facility] Performed On: 11/27/2019 15:29 MST by Lisa Stringer RN [facility] MRI Screening V2 Additional Information MRI : Screening sheet rev iewed and clear Verified by Technologist : Yes Claribel Mili - 11/28/2019 7:10 [facility] Mili Sanford - 11/28/2019 7:10 [facility] DCP GENERIC CODE Respiratory Problems : No Is patient claustrophobic : Yes Is patient in pain : No Sedation Medication Ordered : No Does patient have Sleep Apnea : No Is patient on a Ventilator : No Is the patient NPO : No Can the patient lie flat : Yes Lisa Stringer RN - 11/27/2019 15:29 [facility] IV Patent : Yes Lisa Stringer RN - 11/27/2019 15:29 [facility] DCP GENERIC CODE NeuroPace RNS System : No PA Catheter (aka Soper-Carly) : No Pacemaker wires : No Pill Cam (M2A) Capsule : No Lisa Stringer RN - 11/27/2019 15:29 [facility] Status : N/A Todays Date : 11/27/2019 MST Has patient ever worked with metal : No Treated medically for metal or FB in eye : No Bullets, shrapnel, pellets, BB's : No Phone number Person Providing Info : joseph Name of Person Providing Information : joseph Nursing Unit Extension : [id number] Lisa Stringer RN - 11/27/2019 15:29 [facility] MRI Implants and Devices V2 DCP GENERIC CODE Aortic stents/Graft : No Bone Stimulator : No Brain Aneurysm Clips : No Brain Aneurysm Coils : No Breast Tissue Secured Entrance Monitor : No Carotid Stents/Graft : No Cardiac Loop Recorder : No Cochlear Implant/other inner ear implant : No Deep Brain Stimulator : No Internal Cardiac Defibrillator : No Internal Cardiac Pacemaker : No Internal Continuous Glucose Monitor : No Internal Drug Infusion Pump : No Intrauterine Device : No IVC Filter : Yes Joint Replacement : Yes Mechanical Heart Valve : No Non programmable EXECUTIVE MEETING MANAGER shunt : No Ocular device or implant : No Orthopedic device or implant : Yes Penile Implant : No Port-a-cath : No Programmable EXECUTIVE MEETING MANAGER Shunt : No Retained Acupuncture Needle : No Spinal Stimulator : No Vagal Nerve Stimulator : No Vascular Embolization Coils : Lisa Montanez - 11/27/2019 15:29 MST DCP GENERIC CODE Codman Microsensor ICP Monitor : No External Cardiac pacemaker : No External Drug Infusion Pump : No External Fixator or Traction : No External Glucose Monitor : No Halo Vest : No Surgical Stpls, Clips, Metallic Sutures : Lisa Montanez - 11/27/2019 15:29 MST Ventricular Drain Closed : Lisa Montanez RN - 11/27/2019 15:29 MST Health History (v5) New 11/20 Previous Medical History : Patient Has Medical H istory History of mental illness : Lisa Montanez - 11/27/2019 15:29 MST (As Of: 11/28/2019 07:12:07 MST) Problems(Active) Acute embolic stroke (SNOMED CT :6585981360 ) Name of Proble m: Acute embolic stroke ; Recorder: Lindsay Bautista RN Traveler; Confirmation: Confirmed ; Classification: Medical ; Code: 3379147201 ; Contributor System: UlaolaChart ; Last Updated: 10/26/2019 15:[address] ; Life Cycle Date: 10/26/2019 ; Life Cycle Status: Active ; Responsible Provider: Lindsay Bautista RN Traveler; Vocabulary: SNOMED CT Acute superficial venous thrombosis of left lowe r extremity (SNOMED CT :1515842476 ) Name of Proble m: Acute superficial venous thrombosis of left lower extremity ; Recorder: Lindsay Bautista RN Traveler; Confirmation: Confirmed ; Classification: Medical ; Code: 5296391751 ; Contributor System: Colto ; Last Updated: 10/26/2019 15:37 MST ; Life Cycle Date: 10/26/2019 ; Life Cycle Status: Active ; Responsible Provider: Lindsay Bautista RN Traveler; Vocabulary: SNOMED CT Deep venous thrombosis of left popliteal vein (S NOMED CT :1675981964 ) Name of Proble m: Deep venous thrombosis of left popliteal vein ; Recorder: Lindsay Bautista RN Traveler; Confirmation: Confirmed ; Classification: Medical ; Code: 3070630165 ; Contributor System: PowerChart ; Last Up dated: 10/26/2019 15:37 MST ; Life Cycle Date: 10/26/2019 ; Life Cycle Status: Active ; Responsible Provider: Lindsay Bautista RN Traveler; Vocabulary: SNOMED CT Elevated troponin (SNOMED CT :649657540 ) Name of Problem : Elevated troponin ; Recorder: Sylvia Ackerman BALANCE ENGINEER; Confirmation: Confirmed ; Classification: Medical ; Code: [id number] ; Contributor System: PowerChart ; Last Updated: 3:58 MST ; Life Cycl e Date: 10/25/2019 ; Life Cycle Status: Active ; Responsible Provider: Sylvia Ackerman BALANCE ENGINEER; Vocabulary: SNOMED CT Shingles (SNOMED CT :8507107 ) Name of Problem: Shingles ; Recorder: Loni Bill RN; Confirmation: Confirmed ; Classification: Medical ; Code: 3409402 ; Contributor System: PowerChart ; Last Updated: 11/06/2019 14:17 MST ; Life Cycle Date: 11/06/19 20 ; Life Cycle Status: Active ; Vocabulary: SNOMED CT 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 (SNOMED CT :5407499591 ) Name of Proble m: 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 ; Onset Date: 01/02/1997 ; Recorder: Loni Bill RN; Confirmation: Confirmed ; Classification: Medical ; Code: 7472877237 ; Contribu tor System: PowerChart ; Las t Updated: 11/06/2019 14:16 MST ; Life Cycle Date: 11/06/2019 ; Life Cycle Status: Active ; Vocabulary: SNOMED CT Stroke (SNOMED CT :035533595 ) Name of Problem : Stroke ; Recorder: Sylvia Ackerman BALANCE ENGINEER; Confirmation: Confirmed ; Classification: Medical ; Code: 713543452 ; Contributor System: PowerChart ; Last Updated: 10/25/2019 3:5 8 MST ; Life Cycle Date: ; Life Cycle Status: Active ; Responsible Provider: Sylvia Ackerman NP; Vocabulary: SNOMED CT Diagnoses(Active) Blindness of right eye Date: 11/27/2019 ; Diagnosis Type: Discharge ; Confirmation: Confirmed ; Clinical Dx: Blindness of right eye ; Classification: Medical ; Clinical Service: Non-Specified ; Code: IC D-10-CM ; Probability: 0 ; Diagnosis Code: H54.4 0 Calf pain Date: 11/27/2019 ; Diagnosis Type: Discharge ; Confirmation: Confirmed ; Clinical Dx: Calf pain ; Classification: Medical ; Clinical Service: Non-Specified ; Code: ICD-10-CM ; Probability: 0 ; Diagnosis Code: M79.669 Elevated troponin I level Da te: 11/27/2019 ; Diagnosis Type: Discharge ; Confirmation: Confirmed ; Clinical Dx: Elevated troponin I level ; Classification: Medical ; Clinical Service: Non-Specified ; Co de: ICD-10-CM ; Probability: 0 ; Diagnosis Code: R79.89 Gastroenteritis Date: 2019 ; Diagnosis Type: Discharge ; Confirmation: Confirmed ; Clinical Dx: Gastroenteritis ; Classification: Medical ; Clinical Service: Non-Specified ; Code: ICD-10-CM ; Probability: 0 ; Diagnosis Code: K52.9 Headache Date: 11/27/2019 ; Diagnosis Type: Discharge ; Confirmation: Confirmed ; Clinical Dx: Headache ; Classification: Medical ; Clinical Service: Non- Specified ; Code: ICD-10-CM ; Probability: 0 ; Diagnosis Code: R51 Photophobia of both eyes Jasper e: 11/27/2019 ; Diagnosis Type: Discharge ; Confirmation: Confirmed ; Clinical Dx: Photophobia of both eyes ; Classification: Medical ; Clinical Service: Non-Specified ; Code : ICD-10-CM ; Probability: 0 ; Diagnosis Code: H 53.143 Toe pain, right Date: 2019 ; Diagnosis Type: Discharge ; Confirmation: Confirmed ; Clinical Dx: Toe pain, right ; Classification: Medical ; Clinical Service: Non-Specified ; Code: ICD-10-CM ; Probability: 0 ; Diagnosis Code: M79.674 - Procedure History (As Of: 11/28/2019 07:12:07 [facility]) Anesthesia Minutes: 0 ; Pro cedure Name: Bladder operation ; Procedure Minutes: 0 Anesthesia Minutes: 0 ; Pro cedure Name: Knee replacement ; Procedure Minutes: 0 Anesthesia Minutes: 0 ; Pro cedure Name: Sclerotherapy of varicose vein ; Procedure Minutes: 0 ; Comments: 10/25/2019 2:15 Reuben Lomas RN Traveler Bilateral Anesthesia Minutes: 0 ; Pro cedure Name: Plantar fascia ; Procedure Minutes: 0 ; Comments: 10/25/2019 2:14 Reuben Lomas RN Traveler Left foot Anesthesia Minutes: 0 ; Procedure Name: Carcino ma ; Procedure Minutes: 0 Anesthesia Minutes: 0 ; Procedure Name: Rectal fistula ; Procedure Minutes: 0 Anesthesia Minutes: 0 ; Procedure Name: Hystere ctomy ; Procedure Minutes: 0 Procedure Dt/Tm: 11/15/2019 ; Anesthesia Minutes: 0 ; Procedure Name: ivc filter ; Procedure Minutes: 0 Consultation Patient: JOSEPH VALDIVIA MRN: [id number] 11/28/2019 [facility] Age: 79 years Sex: F : 1940 Active Ins urance: MEDICARE [phone] [facility] Admitting MD: Contreras Pepe DO Location: [facility] EDIP: 07: 01 PCP: Carol Ruff MD Author: Gaurav Rod DO Chief Complaint Headache light sensitivity neck stiffness nause a vomiting History of Present Illness Patient is a 79-year-old fe male history of stroke just seen on the here with multiple embolic shower emboli has a PFO was put on Eliquis has had placement of Varun filter was at home he just returned from rehab had been doing fairly well this morning woke and was lethargic vomiting nauseated and light sensitive complaining of a headache and neck stiffness which she is not had prior reports some emotional lability sinc e her strokes but otherwise was recovering well had visual deficits which were known of those have not changed some blurriness of vision notes new no new focal weakness senso ry loss change in speech or vision otherwise has not had any belly pains no shortness of breath some chest pain is been evaluated by cardiology for possible coronary syndrome pt has no migraine hx per son and pt Review of Systems Constitutional: No fevers, chills, sweats Eye: As above ENMT: No ear pain, nasal congestion, sore throa t Respiratory: No shortness of breath, cough Cardiovascular: Chest pain Gastrointestinal: nausea, vomiting, diarrhea Genitourinary: No hematuria Candice/Lymph: Negative for bruising tendency, swo llen lymph glands Endocrine: Negative for excessive thirst, exces sive hunger Musculoskeletal: Neck pain as above Integumentary: No rash, pruritus, abrasions Psychiatric: No anxiety, emotional lability lik e above Objective Vitals and Measurements T: 36.9 C (Oral) TMIN: 36.7 C (Oral) TMAX: 36.9 C (Oral) HR: 90 RR: 18 BP: 143/77 SpO2: 96% Oxygen Method: Room air, OxyMask WT: 72.562 kg WT: 160 lbs Physical Exam MS awake aware alert and responsive appropriate 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 recent remote poor attention span and concentration somewhat impai red names repeats fund of knowledge normal Obviously light sensitive k eeps her eyes shut during exam when she opens them quickly shuts them No involuntary movements or tremor. F-N intact, no dysmetria no drift no hand rolling asymmetry. Motor: 5/5 proximal and distal upper and lower ext. DTR: 1/4 throughout prox and distal uppers and lowers Sensory : pin to [address] no sensory level intact vibratory at ankles compared to sternum. CN tested serially: PERRLA EOMI facial intact V123 to pin, face symmetric, tongue midline palate symmetric, shoulder shrug 5/5. Hearing intact to finger rub. Cabezas mildly restricted to the right carotids no bruit no bruit at confucianist heart no abn regular rate Gait and station not tested due to safety TMs clear panophthalmoscope exam no papilledema Gen no distress alert Heent oropharynx clear mucous membranes moist neck supple no JVD CV RRR pulm no distress resp, normal excursion abd soft NT no guarding ext no cyanosis clubbing Lab Results Common Labs - All Encounters, All Results, Last 1 month Last Month Basic Metabolic Panel: Hematology: Sodium: 138 (11/27/19) Hgb: 11.6 (11/27/19) Potassium: 3.8 (11/27/19) HgbA1C: ------ Phosphorus: ------ WBC: 14.1 (11/27/19) M.8 (11/27/19) Plt: 244 (11/27/19) BUN: 9 (11/27/19) INR: 1.46 (11/27/19) Creatinine: 0.72 (11/27/19) Creatinine Clearance: ------ Additional - Last Month A/G Ratio: 0.9 (11/27/19) ABS Baso: 0.1 (11/27/19) ABS Eos: 0.0 (11/27/19) ABS Lymph: 0.6 (11/27/19) ABS Macon: 0.8 (11/27/19) ABS Neut: 12.7 (11/27/19) Albumin: 2.9 (11/27/19) Alkphos: 258 (11/27/19) ALT: 34 (11/27/19) Anion Gap: 16 (11/27/19) Appearance: Clear (11/09/19) AST: 40 (11/27/19) Baso.: 0.5 (11/27/19) Bili Total: 0.5 (11/27/19) Blood Glucose, Point of Care: 130 mg/dL () Calcium: 8.8 (11/27/19) CBC Scan: Auto Diff (11/27/19) Chloride: 101 (11/27/19) CK: 151 (11/27/19) CO2: 25 (11/27/19) Color: Straw (11/09/19) eGFR Afr/Amer: >60 (11/27/19) eGFR Non- Am: >60 (11/27/19) Eos Abs Man: 0.2 (11/15/19) Eos.: 0.2 (11/27/19) Globulin: 3.3 (11/27/19) Glucose (POCT) Automated: 114 (11/07/19) Glucose Level: 123 (11/27/19) Hct: 34.6 (11/27/19) Hepatitis A AB, IgM: Non-Reactive (11/27/19) Hepatitis Bc Ab, IgM: Non-Reactive (11/27/19) Hepatitis Bs Ag: Non-Reactive (11/27/19) Hepatitis C Ab: Non-Reactive (11/27/19) Influenza A, PCR: Negative (11/27/19) Influenza B, PCR: Negative (11/27/19) Lymph Abs Man: 0.5 (11/15/19) Lymphs: 4.1 (11/27/19) Man Bands: 2 (11/15/19) Man Eos: 1 (11/15/19) Man Lymphs: 3 (11/15/19) Man Monos: 14 (11/15/19) Man Segs: 80 (11/15/19) MCH: 30.3 (11/27/19) MCHC: 33.5 (11/27/19) MCV: 90.5 (11/27/19) Macon Abs Man: 2.1 (11/15/19) Monos.: 5.3 (11/27/19) Neut Abs Man: 12.5 (11/15/19) Neuts: 89.9 (11/27/19) Plt Est: Adequate (11/15/19) Procalcitonin: 0.08 (11/27/19) Protein, Total: 6.2 (11/27/19) PT: 16.6 (11/27/19) PTT: 29.5 (11/27/19) RBC: 3.82 (11/27/19) RBC Morph: Normal (11/15/19) RDW: 13.5 (11/27/19) RSV, PCR: Negative (11/27/19) Specific Jasper: 1.008 (11/09/19) Strep A, Rapid Test: Negative (11/27/19) Troponin I: 2.00 (11/27/19) UA Squam Epithelial: 0-10 (11/09/19) UBacteria: 1+ (11/09/19) UBilirubin: Negative (11/09/19) UBlood: 1+ (11/09/19) UGlucose: Negative (11/09/19) UKetones: Negative (11/09/19) ULeukocyte Esterase: Negative (11/09/19) UMucous: Rare (11/09/19) UNitrite: Negative (11/09/19) UpH: 6.0 (11/09/19) UProtein: Negative (11/09/19) URBC: 0-4 (11/09/19) Urine Culture if Indicated: Not Indicated ( 03/23) Urine WBCs: 5-10 (11/09/19) Diagnostic Results Radiology - Full Interpretation, Last 24 hrs Name: JOSEPH VALDIVIA Account: [id number] : 1940 Result Date: 11/27/19 11:21 Verified By: Osbaldo Everett DO at 11/27/19 14:45 Report : XR Chest 1 View Portable EXAM: XR Chest 1 View Portable INDICATION: Atypical Chest Pain TECHNIQUE: Single projection of the chest. COMPARISON: CT 11/04/2019 FINDINGS: The heart size is normal. The hilar shadows are normal Lungs show no consolidation or effusion 1.8 cm nodular density in the left lower lung i s noted Hemidiaphragms are unremark able. Costophrenic angles are sharp. Osseous structures show no acute abnormalities. IMPRESSION: Nodular density in the left lower lung measuring 1.5 cm. Findings are present on prior CT from 11/04/2019. Continued follow-up is recommended. Over read 11/27/19 14:42 +++++++++++++++++++++++++++++++++++++++++++++++ ++++++++ Assessment/Plan Acute headache photophobia neck stiffness nausea vomiting recent stroke embolic in nature MRI is pending to rule out additional CVA CT is already been completed no acute changes are seen meningitis estuardo uld be ruled out we discusse d risks and benefits of LP patient is on Eliquis and at reasonably high risk of stroke we discussed those risks with family and the patient they are all in agreement LP shoul d be completed even with hol ding the Eliquis until such time as IR agreed to do the study risks again were discussed at length however in agreement we discussed case also with Dr. Pepe CVA risk factor management patient is a non-smoker non-diabetic she should have her blood pressure control less than 140/90 is a goal she is already on high intensity statin aspirin and anticoagulation Possible paradoxical emboli as a source Greenfi eld filter now in place 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 Calf pain M79.669 Elevated troponin I level R79.89 Gastroenteritis K52.9 Toe pain, right M79.674 Orders: Cell Count w/ Diff, CSF CSF Glucose CSF Protein Culture CSF Gram Stain XR Lumbar Puncture Diagnostic w Guide Problem List/Past Medical History Ongoing Acute embolic stroke Acute superficial venous thrombosis of left low er extremity Deep venous thrombosis of left popliteal vein Elevated troponin Shingles 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 Stroke Historical No qualifying data Procedure/Surgical History ivc filter (11/15/2019) Bladder operation Carcinoma Hysterectomy Knee replacement Plantar fascia Rectal fistula Sclerotherapy of varicose vein Medications Inpatient albuterol 0.083% NEB, 2.5 mg= 3 mL, NEB - inhal ation, q4hr, PRN aspirin, 81 mg= 1 Tab, PO, qDay Ativan, 0.5 mg= 0.25 mL, IV Push, once atorvastatin, 40 mg= 1 Tab, PO, qDay calcium carbonate/vit D (500mg/200 unit) Tab, 1 Tab, PO, BID citalopram, 10 mg= 1 Tab, PO, Daily Compazine, 5 mg= 1 mL, IV Push, q4hr, PRN Coreg, 3.125 mg= 1 Tab, PO, BID cyanocobalamin, 50 mcg= 0.5 Tab, PO, qDay docusate-senna 50/8.6, 2 Tab, PO, qHS Effer-K, 20 mEq= 1 Tab, PO, Per Parameter, PRN Effer-K, 40 mEq= 2 Tab, PO, Per Parameter, PRN hydrALAZINE, 5 mg= 0.25 mL, IV Push, q4hr, PRN Isovue-370, 100 mL, IV Push, x1 KCL 10 mEq/100 mL IVPB, 10 mEq= 100 mL, IV, Per Parameter, PRN magnesium oxide, 400 mg= 1 Tab, PO, Per Paramet er, PRN magnesium sulfate 2gm/50 mL SW, 2 gm= 50 mL, IV , Per Parameter, PRN magnesium sulfate 4gm/100 mL SW, 4 gm= 100 mL, IV, Per Parameter, PRN morphine INJ, 2 mg= 1 mL, IV Push, q4hr, PRN nalOXone, 0.2 mg= 0.5 mL, IV Push, q2min, PRN oxyCODONE immediate release tablet, 5 mg= 1 Tab , PO, q6hr, PRN Pepcid, 20 mg= 1 Tab, PO, Daily Restoril, 7.5 mg= 1 Cap, PO, qHS, PRN saline flush 0.9%, 10 mL, IV Push, q12hr saline flush 0.9%, 10 mL, IV Push, Per Paramete r, PRN Sodium Chloride 0.9% 1,000 mL, 1000 mL, IV Tylenol oral TABLET, 500 mg= 1 Tab, PO, q6hr, P RN Zofran, 4 mg= 2 mL, IV Push, q4hr, PRN Home amLODIPine 2.5 mg oral tablet, 2.5 mg= 1 Tab, P O, qDay atorvastatin, 20 mg, PO, qDay bethanechol, 10 mg, PO, TID , x14 days (started 11/26/19)[id number] Calcium 600 +D Tab, 1 Tab, PO, TID citalopram, 10 mg, PO, Daily Colace, 100 mg, PO, BID Eliquis 5 mg oral tablet, 5 mg= 1 Tab, PO, BID Florastor, 250 mg, PO, BID guaiFENesin 600 mg oral tablet, extende d release, 600 mg= 1 Tab, PO, BID, PRN ondansetron 4 mg oral tablet, 4 mg= 1 Tab, PO, q4hr, PRN senna, 17.2 mg, PO, Daily, PRN Vitamin B12 50 mcg oral tablet, 50 mcg= 1 Tab, PO, qDay Vitamin D3 5,000 Unit oral capsule, 5000 Unit= 1 Cap, PO, qDay, with food Allergies NKA Reaction: None Documented Social History Alcohol Current, Wine, 1-2 times per month, 11/27/2019 Home/Environment Congregation restrictions/conc erns: None. Lives with Alone. Living situation: Home/Independent., 11/27/2019 Substance Abuse Denies, 11/27/2019 Tobacco Former smoker, quit more th an 30 days ago, Stopped age [age] Years., 11/27/2019 Electronically Signed By: Gaurav Rod DO On 11/27/19 17:32 Co Signature By: Modify Signature By: Consultation 11/27/2019 [place] goode DATE OF CONSULTATION: 11/27/[address] [facility] REASON FOR CONSULTATION: Elevated troponin, leg cramps. REQUESTING PHYSICIAN: Dr. Kamaljit Pepe. PRIMARY [employer]ADEM[employer] AFFAIRS DEAN: Dr. Shiva Echeverria. HISTORY OF PRESENT ILLNESS: I am seeing Mrs. Valdivia upon the request of Dr. Pepe. Joseph is a 79-year-old lady with established history of hypertension, hyperlipidemia, migraine headaches who had ce rebellar infarcts recently a nd has been in rehab. She has been having significant lower extremity cramps, but recently developed significant diarrhea with nausea and vomiting. The patient was brought to the hospital for further as sessment. EKG was suspicious for the paramedics; however, upon arrival, was nonconclusive. The patient's troponin was elevated at 1.2 which is known to have some zunilda vation in troponin for all h er prior admissions, around 0.7. The patient denies any chest discomfort or heaviness. She has some mild shortness of breath, but unchanged from last admission. Denies any sy ncope or passing out, mainly complaining of lower extremity cramps and the abdominal pain with some diarrhea without blood. Occasional nausea and vomiting. REVIEW OF SYSTEMS: Review of all other 14 system s otherwise unremarkable. PAST MEDICAL HISTORY: 1. Hypertension. 2. Hyperlipidemia. 3. Migraine headache. 4. Cerebrovascular accident. 5. Cerebellar infarcts. PAST SURGICAL HISTORY: 1. Total right knee replacement. 2. Hernia repair and hysterectomy. 3. Inferior vena cava filter for DVT. ALLERGIES: She has no known allergies to medicat ions. MEDICATIONS: At home reviewe d and reconciled at the rehab including amlodipine 5 mg daily, atorvastatin 20 mg daily, oxycodone, apixaban, Eliquis 5 mg b.i.d., cholecalciferol, citalopram 10 mg daily, guaifenesin and Zofran. FAMILY HISTORY: No history o f premature coronary artery disease or sudden cardiac . SOCIAL HISTORY: She used to live independently in [facility] and currently was in rehabilitation. She quit smoking in the . PHYSICAL EXAMINATION: GENERAL: Elderly, in no apparent respiratory dis tress. VITAL SIGNS: Temperature of 36.7 degrees centigrade, heart rate of 94, blood pressure 141/75, earlier was 166/97. HEENT: Normocephalic, atraumatic. HEART: Regular with normal S 1, S2. There is an S4 at the apex. No gallops. There is I-II/ apical murmur. LUNGS: Clear. ABDOMEN: Somewhat tender. Bowel sounds present. EXTREMITIES: Trace pitting e emilie. There is calf tenderness bilaterally. Unable to detect tibialis posterior pulses bilaterally. NEUROLOGICAL: Awake, alert, oriented. De tailed exam was deferred to neurology. LABORATORY TESTS: White cell s of 14,100, hemoglobin 11.6, hematocrit of 34. Sodium of 138, potassium 3.8, BUN 9, creatinine of 0.72, AST 40, alkaline phosphatase of 258. Troponin of 1.2. EKG showed no ST elevations. ASSESSMENT AND PLAN: 1. Elevated troponin, nonspecific, and most like ly demand ischemia. 2. Acute cerebrovascular accident with multiple location, possibly embolic. 3. History of PFO present. 4. DVT with prior inferior vena cava. 5. Hypertension, reasonably well controlled. RECOMMENDATIONS: 1. Evaluate lower extremity for arterial occlusions unlikely. May consider ultrasound for venous system. 2. Continue anticoagulation with Eliquis. 3. May repeat echocardiogram for wall motion abnormalities. At this point, there is no indication for angiography or further aggressive treatment. The family agrees on this as well. I would like to thank Dr. Pepe for consultatio n. Dictated by: KRISTIE CARLISLE MD /BM T : 11/27/2019 21:05:47 /NTS Doc: [id number] Job: [id number] cc: Electronically Signed By: Kristie Carlisle MD On 11/28/19 06:36 Co Signature By: Modify Signature By: Consultation #[id number] 11/27/2019 Chapito goode D/W Dr Pepe [facility] Electronically Signed By: Kristie Carlisle MD On 11/27/19 13:02 Co Signature By: Modify Signature By: Patient Placement Infection Control/Safety Edu cation Topics Entered On: 11/27/2019 17:53 MST 11/27/2019 Chapito [facility] Performed On: 11/27/2019 17:53 MST by Lisa Stringer RN [facility] Infection Control Education Infection Control/Safety Edu cation Topics : Hand hygiene, Respiratory hygiene, How to report safety concerns, How to request additional assistance when concerned about worsening condition, Fall prevention Lisa Stringer RN - 11/27/2019 17:53 MST ED Physician Notes 11/27/2019 Chapito courtney Patient: [facility] Age: 79 years Sex: F : 1940 Associated Diagnoses: None Author: Vikas Holley DO Basic Information Time seen: Provider Initial Contact Time 11/27/2019 10:40. History source: Patient, EMS. Arrival mode: Ambulance. History limitation: None. Additional information: Arianne ent's physician(s): Shiva Echeverria MD (cardiology), Chief Complaint (ST) nausea, vomiting, and diarrhea. History of Present Illness The patient presents with nausea, vomiting, and diarrhea. This patient is a 79 year-ol d female with a history of strokes, who presents to the emergency department via EMS for evaluation of nausea, vomiting, and diarrhea. Patient's family reportedly co ntacted EMS this morning aft er a sudden onset of generalized weakness, nausea, vomiting, and diarrhea about 3 hours ago. Per EMS, her field EKG showed ST elevations in 2, 3, and aVF. She is currently ta barry Eliquisand was given As pirin and Zofran en route which fully alleviated her nausea. Her service station equipment mechanic is Dr. Echeverria. Denies any chest pain or shortness fo breath. No abdominal pain. Upon initial evaluation, she is complaining of lightheadedness. Review of Systems Constitutional symptoms: No fever, no chills. Skin symptoms: No jaundice, no rash. Eye symptoms: No icterus, ENMT symptoms: No sore throat, Respiratory symptoms: No shortness of breath, no cough. Cardiovascular symptoms: No chest pain, no synco pe. Gastrointestinal symptoms: Nausea, vomiting, lesvia rrhea, No abdominal pain, Genitourinary symptoms: No dysuria, Neurologic symptoms: No altered level of conscio usness, Psychiatric symptoms: No anxiety, no depression. Hematologic/Lymphatic symptoms: Bleeding tendenc y negative, no swollen nodes. Health Status Allergies: Allergic Reactions (All) NKA. Medications: (Selected) Prescriptions Prescribed Eliquis 5 mg oral tablet: 1 Tab, PO, BID, 60 Tab , 0 Refill(s) amLODIPine 2.5 mg oral tablet: 1 Tab, PO, qDay, 30 Tab, 0 Refill(s) atorvastatin 20 mg oral tablet: 1 Tab, PO, qDay, 30 Tab, 0 Refill(s) bethanechol 10 mg oral tablet: 1 Tab, PO , TID, for 14 Day, 42 Tab, 0 Refill(s) oxyCODONE 5 mg oral capsule: 1 Cap, PO, q6hr, for 5 Day, PRN: as needed for pain, 10 Cap, 0 Refill(s) Documented Medications Documented Calcium 600 +D Tab: 1 Tab, PO, TID, 0 Refill(s) Colace: 100 mg, PO, BID, 0 Refill(s) Florastor: 250 mg, PO, BID, 0 Refill(s) Vitamin B12 50 mcg oral tablet: 1 Tab, PO, qDay, 0 Refill(s) Vitamin D3 5,000 Unit oral capsule: 1 Cap, PO, q Day, with food, 0 Refill(s) citalopram: 10 mg, PO, Daily, 0 Refill(s) guaiFENesin 600 mg oral tablet, extended release : 1 Tab, PO, BID, 0 Refill(s) ondansetron 4 mg oral tablet: 1 Tab, PO, q4hr, P RN: Nausea, 0 Refill(s) senna: 17.2 mg, PO, Daily, 0 Refill(s), per nurs e's notes. 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 Surgical history: Bladder operation (3310400145). Plantar fascia ([id number]). Comments: 10/25/2019 2:14 Reuben Lomas RN Travel[employer] Left foot Sclerotherapy of varicose vein ([id number]). Comments: 10/25/2019 2:15 Reuben Lomas RN Travel[employer] Bilateral Knee replacement ([id number]). 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 Hysterectomy ([id number]). Carcinoma ([id number]).. Social history: Family/socia l situation: Lives with relative(s) (son), Alcohol use: Occasionally, Tobacco use: former smoker, Drug use: Denies. Medical history Surgical history. Physical Examination Vital Signs Vital-Signs 11/27/2019 10:35 MST Pain Intensity 0 Pain Scale Used Numeric Rating Scale Temperature PO 36.7 deg C Normal Heart Rate 94 bpm Normal NIBP Systolic 166 mm Hg H NIBP Diastolic 97 mm Hg H Resp Rate (Monitor) 16 Breaths/Min Normal SPO2 99 % Normal Oxygen Method Room air . Oxygen saturation. General: Alert, moderate distress. Skin: Warm, dry, pale, Petechiae bilateral lower extremities. Head: Normocephalic, atraumatic. Neck: Trachea midline, no JVD, No Meningismus. Eye: Extraocular movements are intact, normal co njunctiva. Ears, nose, mouth and throat: Oral mucosa moist. Cardiovascular: Regular rate and rhythm, Normal peripheral perfusion, Edema: Bilateral, pedal, 2+. Respiratory: Lungs are clear to auscultation, respirations are non-labored, breath sounds are equal. Chest wall: No tenderness. Back: Nontender. Musculoskeletal: Normal ROM, Moving all extremit ies with coordination. Gastrointestinal: Soft, Nontender, Normal bowel sounds. Neurological: Alert and orie nted to person, place, time, and situation, No focal neurological deficit observed, CN II-XII intact, normal motor observed, normal speech observed, normal coordination observed, Tearful, emotional. Psychiatric: Cooperative, appropriate mood and a ffect. Medical Decision Making Differential Diagnosis: Dehy dration, electrolyte imbalance, Acute coronary syndrome, cardiac ischemia, gastritis, gastroenteritis. Electrocardiogram: EP Interp , Sinus rhythm 103 bpm. Irregular baseline appears to be nonpathologic ST elevation in leads II, III, aVF without reciprocal changes.. Results review: Lab results : Laboratory 11/27/2019 10:45 MST WBC 14.1 thousand/uL H RBC 3.82 million/uL L Hgb 11.6 gm/dL Normal Hct 34.6 % L MCV 90.5 fL Normal MCH 30.3 pg Normal MCHC 33.5 gm/dL Normal RDW 13.5 % Normal Plt 244 thousand/uL Normal Neuts 89.9 % H Lymphs 4.1 % L Monos. 5.3 % Normal Eos. 0.2 % Normal Baso. 0.5 % Normal ABS Neut 12.7 thousand/uL H ABS Lymph 0.6 thousand/uL Normal ABS [place] 0.8 thousand/uL Normal ABS Eos 0.0 thousand/uL Normal ABS Baso 0.1 thousand/uL Normal CBC Scan Auto Diff INR 1.46 NA PT 16.6 sec H PTT 29.5 sec Normal Sodium 138 mmol/L Normal Potassium 3.8 mmol/L Normal Chloride 101 mmol/L Normal CO2 25 mmol/L Normal Anion Gap 16 H Glucose Level 123 mg/dL H BUN 9 mg/dL L Creatinine 0.72 mg/dL Normal eGFR Non- Am >60 mL/min/1.73m2 NA eGFR Afr/Amer >60 mL/min/1.73m2 NA Calcium 8.8 mg/dL Normal Mg 1.8 mg/dL Normal Protein, Total 6.2 gm/dL L Albumin 2.9 gm/dL L Globulin 3.3 gm/dL Normal A/G Ratio 0.9 Normal Bili Total 0.5 mg/dL Normal ALT 34 Units/L Normal AST 40 Units/L H Alkphos 258 Units/L H Troponin I 1.21 ng/mL CRIT . Chest X-Ray: Normal cardiac and mediastinal silhouettes, no signs of cardiomegaly, no effusions pneumonia or pneumothorax. Perihilar lymph node predominance of unknown significance. Will send to radiologist to read. Radiology results: Procedure Critical care note Total time: 30-74 minutes sp ent engaged in work directly related to patient care and/ or available for direct patient care, exclusive of procedure time, 40 minutes. Critical condition(s) addres sed for impending deterioration include: cardiovascular, central nervous system. Associated risk factors: EKG changes. Management: bedside assessme nt, supervision of care, Interpretation (chest x- ray, electrocardiogram, blood pressure), Case review medical science liaison, Alternate history emergency medical services. Treatment response: ER cours e: EMS had past regarding this patient prior to arrival. Was able to review the field EKG there was some subtle ischemic changes in the inferior leads but no signs of acute S T elevation PA. Discussed ca se with Dr. Echeverria patient's service station equipment mechanic who evaluated the EKG and elected not to move forward with a STEMI activation. On patient arrival she was noted to be feelin g much better, EKG on arriva l is unchanged from the field EKG that had been performed. Continues to show borderline ST elevation has been reviewed by cardiology. Patient is currently on Eliquis, has sandra en aspirin, added nitroglyce rin paste. She is feeling much better after receiving the Zofran. Laboratories evaluated CBC showing leukocytosis white count 14 hemoglobin 11.6 hematocrit 34.6 platelets are 244 slight neutrophilic pre dominance 89.9%. The PT is 16.6 INR is 1.46 PTT of 29.5 CMP sodium 138 potassium 3.8 chloride of 101 CO2 is 25 BUN and creatinine normal at 9 and 0.72 with a glucose bumped a t 123. Patient also was note d to have bumped alk phos at 258 AST is 40 ALT and bilirubin are normal. Troponin is elevated at 1.21. Patient's previous records have been evaluated patient showing a baseline troponin somewhe re around 0.7. She has bumped slightly at 1.21 today, she has been seen by Dr. Pepe bower in the emergency department. Current plan is to continue current management, IV fluids for the fluid los ses secondary to her nausea and vomiting, I will admit to telemetry floor, suspect troponins. Today's EKG showed borderline ST elevation inferiorly, this was compare d to a October 23 EKG shows inverted T waves in leads III and aVF. Possible ischemic changes today secondary to a demand ischemia with her nausea, vomiting and diarrhea.. Impression and Plan 1. Nausea and vomiting 2. Diarrhea suspect gastroenteritis 3. Abnormal EKG with clear ischemic changes 4. Troponin bumped above bas michi-suspect indeterminate value secondary to demand ischemia and patient on Eliquis nitro and aspirin Plan Counseled: Patient. Notes: Zainab Boucher sc ribe, halie scribing for, and in the presence of, Vikas Holley DO. This chart is electronically signed by myself, Zainab Hassan, Vikas Sosa DO, personall y performed the services described in this documentation, as scribed by Zainab Hassan in my presence, and it is accurate and complete. Electronically Signed By: Vikas Holley DO On 12/05/19 13:07 Co Signature By: Modify Signature By: Vikas Holley DO On 11/27/19 12:10 [facility] [address] [address] Patient Discharge Instructions Name: SHEA JOSEPH MOR Current Date: 11/15/2019 14:02:53 : 1940 ([id number]) [id number] Patient Address: [address] [place] [address] Patient Primary Care Provider Name: Carol Ruff MD Phone: [phone] Reason for Visit: Discharge Diagnosis: [facility] would like to thank you for allowing us to assist with your healthcare needs. Advance Directive: Follow-up Instructions: With: Address: When: Ed Huitron [address], [address] [place] [phone] Business (1) Within 1 to 3 days With: Address: When: Carol Ruff Within 1 to 3 days No Prescheduled Appointments Found Immunizations No Immunizations Documented This Visit Additional Patient Instructions: No qualifying d layton available Comment: Medication Information: Continue Home Meds Other Medications amLODIPine (amLODIPine 2.5 mg oral tablet) 1 tab (s) By mouth once daily. Last Dose Given: Next Dose Du e: amoxicillin-clavulanate (anthony xicillin-clavulanate 875 mg-125 mg oral tablet) 875 Milligram By mouth every 12 hours. Last Dose Given: Next Dose Du e: APAP/butalbital/caffeine (Fioricet 325/50/40) 1 tab(s) By mouth. Last Dose Given: Next Dose Du e: apixaban (Eliquis 5 mg oral tablet) 1 tab(s) By mouth twice daily. Last Dose Given: Next Dose Du e: atorvastatin (atorvastatin 20 mg oral tablet) 1 tab(s) By mouth once daily. Last Dose Given: Next Dose Du e: bethanechol 10 Milligram By mouth three times da pascale. Last Dose Given: Next Dose Du e: calcium-vitamin D (Calcium 600 +D Tab) 1 tab(s) By mouth three times daily. Last Dose Given: Next Dose Du e: cholecalciferol (Vitamin D3 5,000 Unit oral capsule) 1 cap By mouth once daily. with food. Last Dose Given: Next Dose Du e: citalopram 10 Milligram By mouth once daily. Last Dose Given: Next Dose Du e: cyanocobalamin (Vitamin B12 50 mcg oral tablet) 1 tab(s) By mouth once daily. Last Dose Given: Next Dose Du e: docusate (Colace) 100 Milligram By mouth twice d aily. Last Dose Given: Next Dose Du e: guaiFENesin (guaiFENesin 600 mg oral tablet, extended release) 1 tab(s) By mouth twice daily. Last Dose Given: Next Dose Du e: ondansetron (ondansetron 4 m g oral tablet) 1 tab(s) By mouth every 4 hours as needed Nausea. Last Dose Given: Next Dose Du e: oxyCODONE (oxyCODONE 5 mg or al capsule) 1 cap By mouth every 4 hours as needed as needed for pain. Last Dose Given: Next Dose Du e: saccharomyces boulardii (Florastor) 250 Milligra m By mouth twice daily. Last Dose Given: Next Dose Du e: senna 17.2 Milligram By mouth once daily. Last Dose Given: Next Dose Du e: Discharge Information (if applicable): Discharge MAY DISCHARGE IN 1-2 HOURS WHEN STABLE Comment: The patient/caregiver has be en advised to give the list of medications to his or her primary care physician. Weight at Discharge: K.027 kg JOSEPH VALDIVIA has ratna barrientos given the following list of follow-up instructions, prescriptions, patient education materials, and valuables/belongings: Discharge Checklist: Education Topics: Valuables and Belongings: Clothes at Bedside: Pants, Shirt, Shoes, Socks, Undergarments Clothes Sent Home:Pants, Shirt, Shoes, Socks, Un dergarments Clothes Description: Electronics at Bedside: Electronics Sent Home:None Jewelry at Bedside: Jewelry Sent Home:None Jewelry Description: Miscellaneous Items: Miscellaneous Items Sent Home: None Personal Devices: Personal Devices Sent Home:None Additional Discharge Instructions: Level of daily activity - yo u may need to change your daily routine to avoid behavior that will make your symptoms worse. Follow your doctors recommendations regarding your activity level. Diet - follow your doctors r ecommended diet. If no restrictions apply you may improve your condition by eating more healthful foods. Moderate restrictions on salt, for example, sometimes apply. Instruction about medication s - Take your medications as prescribed. Do not stop taking prescribed medicines even if you start to feel better, unless your doctor tells you to. Give a copy of the medicat ion information you received to your primary care physician. Carry a medication list with you and keep the list up-to-date. An appointment for a follow- up exam - Schedule a follow-up appointment, where you can confirm that your medications are working and detect early warning signs of new problems. If you have been diagnosed with heart failure - 1. Call your doctor, or seek immediate medical attention if your symptoms worsen: - Your ankles or feet swell more than usual. - You start coughing at night or have a frequent dry cough. - Breathing becomes difficult. 2. At home, you should weigh yourself every morning at the same time on the same scale. Keep a daily record of your weight. Call your doctor if you gain two or more pounds overnight or five pounds in a week. If you have been diagnosed with a stroke or TIA - Call 911 immediately for: - Sudden weakness or numbnes s of face, arm and leg usually on one side of the body. - Loss of vision, particularly in only one eye. - Sudden severe headache with no known cause. - Sudden trouble walking, di zziness, loss of balance or coordination, slurred speech. Risk factors for stroke: - Age: the older you get, the more likely you ar e to have a stroke. - Men, -Americans and Guyanese-Americans h ave a higher risk. - Already having had a stroke makes you more lik kenji to have another. - Family history of stroke ( parent, grandparent, brother/sister) increases your risk. - You can control, treat or prevent some conditions to reduce your likelihood of stroke. High blood pressure, cigaret te smoking, high cholesterol, lack of regular physical activity, overweight, diabetes are all risk factors that can be changed. Additional information for s mokers - STOP SMOKING. Tobacco product use in any form can be hazardous to your health and to the health of those around you. If you smoke or chew tobacco consider quitting. Smoking cessation is particu larly important if you were hospitalized for pneumonia, congestive heart failure, stroke or heart attack. Refer to admission packet for more information. Patient Education and Medication Handouts, if an y, will display below Inferior Vena Cava Filter Insertion, Care After This sheet gives you informa tion about how to care for yourself after your procedure. Your health care provider may also give you more specific instructions. If you have problems or questions, contact your health care provider. What can I expect after the procedure After your procedure, it is common to have: Mild pain in the area where the filter was inse rted. Mild bruising in the area where the filter was inserted. Follow these instructions at home: Insertion site care Follow instructions from [facility] health care provider about how to take care of the site where a catheter was inserted at your neck or groin (insertion site). Make sure you: Wash your hands with soap a nd water before you change your bandage (dressing). If soap and water are not available, use hand documentation liaison. Change your dressing as told by your health car e provider. Check your insertion site every day for signs o f infection. Check for: More redness, swelling, or pain. More fluid or blood. Warmth. Pus or a bad smell. Keep the insertion site clean and dry. Do not shower, bathe, use a hot tub, or let the dressing get wet until your health care provider approves. General instructions Take vmxo-trm-saolzuh and p rescription medicines only as told by your health care provider. Avoid heavy lifting or hard activities for 48 hours after the procedure or as told by your health care provider. Do not drive for 24 hours i f you were given a medicine to help you relax (sedative). Do not drive or use heavy machinery while takin g prescription pain medicine. Do not go back to school or work until your [facility] care provider approves. Keep all follow-up visits a s told by your health care provider. This is important. Contact a health care provider if: You have more redness, swelling, or pain around your insertion site. You have more fluid or blood coming from your i nsertion site. Your insertion site feels warm to the touch. You have pus or a bad smell coming from your in sertion site. You have a fever. You are dizzy. You have nausea and vomiting. You develop a rash. Get help right away if: You develop chest pain, a cough, or difficulty breathing. You develop shortness of breath, feel faint, or pass out. You cough up blood. You have severe pain in your abdomen. You develop swelling and discoloration or pain in your legs. Your legs become pale and cold or blue. You develop weakness, diffi culty moving your arms or legs, or balance problems. You develop problems with speech or vision. These symptoms may represent a serious problem that is an emergency. Do not wait to see if the symptoms will go away. Get medical help right away. Call your local emergency services (911 in the [place] Do not drive yourself to the hospital. Summary After your insertion procedure, it is common to have mild pain and bruising. Do not shower, bathe, use a hot tub, or let the dressing get wet until your health care provider approves. Every day, check for signs of infection where a catheter was inserted at your neck or groin (insertion site). This information is not inte nded to replace advice given to you by your health care provider. Make sure you discuss any questions you have with your health care provider. Document Released: 4 Document Revised: 08/11/2017 Document Reviewed: 08/11/2017 [employer] Interactive Patient Education 2019 Virtual View App. Monitored Anesthesia Care Anesthesia is a term that re fers to techniques, procedures, and medicines that help a person stay safe and comfortable during a medical procedure. Monitored anesthesia care, or sedation, is one type of anesthesia. Your anesthesia specialist may recommend sedation if you will be having a procedure that does not require you to be unconscious, such as: Cataract surgery. A dental procedure. A biopsy. A colonoscopy. During the procedure, you ma y receive a medicine to help you relax (sedative). There are three levels of sedation: Mild sedation. At this leve l, you may feel awake and relaxed. You will be able to follow directions. Moderate sedation. At this level, you will be sleepy. You may not remember the procedure. Deep sedation. At this leve l, you will be asleep. You will not remember the procedure. The more medicine you are gi matteo, the deeper your level of sedation will be. Depending on how you respond to the procedure, the anesthesia specialist may change your level of sedation or the type of anes thesia to fit your needs. An anesthesia specialist will monitor you closely during the procedure. Let your health care provider know about: Any allergies you have. All medicines you are takin g, including vitamins, herbs, eye drops, creams, and soes-fos-rgpzoxp medicines. Any use of steroids (by mouth or as a cream). Any problems you or family members have had with sedatives and anesthetic medicines. Any blood disorders you have. Any surgeries you have had. Any medical conditions you have, such as sleep apnea. Whether you are or may be . Any use of cigarettes, alcohol, or street drugs . What are the risks Generally, this is a safe procedure. However, pr oblems may occur, including: Getting too much medicine (oversedation). Nausea. Allergic reaction to medicines. Trouble breathing. If this happens, a breathing tube may be used to help with breathing. It will be removed when you are awake and breathing on your own. Heart trouble. Lung trouble. Before the procedure Staying hydrated Follow instructions from you r health care provider about hydration, which may include: Up to 2 hours before the pr ocedure you may continue to drink clear liquids, such as water, clear fruit juice, black coffee, and plain tea. Eating and drinking restrictions Follow instructions from you r health care provider about eating and drinking, which may include: 8 hours before the procedur e stop eating heavy meals or foods such as meat, fried foods, or fatty foods. 6 hours before the procedur e stop eating light meals or foods, such as toast or cereal. 6 hours before the procedure stop drinking milk or drinks that contain milk. 2 hours before the procedure stop drinking emmanuel r liquids. Medicines Ask your health care provider about: Changing or stopping your r egular medicines. This is especially important if you are taking diabetes medicines or blood thinners. Taking medicines such as as pirin and ibuprofen. These medicines can thin your blood. Do not take these medicines before your procedure if your health care provider instructs you not to. Tests and exams You will have a physical exam. You may have blood tests done to show: How well your kidneys and liver are working. How well your blood can clot. General instructions Plan to have someone take you home from the [facility] or clinic. If you will be going home r ight after the procedure, plan to have someone with you for 24 hours. What happens during the procedure Your blood pressure, heart rate, breathing, level of pain and overall condition will be monitored. An IV tube will be inserted into one of your ve ins. Your anesthesia specialist will give you medicines as needed to keep you comfortable during the procedure. This may mean changing the level of sedation. The procedure will be performed. After the procedure Your blood pressure, heart rate, breathing rate, and blood oxygen level will be monitored until the medicines you were given have worn off. Do not drive for 24 hours if you received a sed ative. You may: Feel sleepy, clumsy, or nauseous. Feel forgetful about what happened after the pr ocedure. Have a sore throat if you had a breathing tube during the procedure. Vomit. This information is not inte nded to replace advice given to you by your health care provider. Make sure you discuss any questions you have with your health care provider. Document Released: 6 Document Revised: 02/26/2017 Document Reviewed: 01/10/2017 [employer] Interactive Patient Education 2019 Virtual View App. FREQUENTLY ASKED QUESTIONS ABOUT Surgical Site Infections What is a Surgical Site Infection (SSI) A surgical site infection is an infection that occurs after surgery in the part of the body where the surgery took place. Most patients who have surgery do not develop an infection. However, infections develop in about 1 to 3 out of every 100 patient s who have surgery. Some of the common symptoms of a surgical site i nfection are: Redness and pain around the area where you had surgery Drainage of cloudy fluid from your surgical wou nd Fever Can SSIs be treated Yes. Most surgical site infe ctions can be treated with antibiotics. The antibiotic given to you depends on the bacteria (germs) causing the infection. Sometimes patients with SSIs also need another surgery to treat the infection. What are some of the things that hospitals are d oing to prevent SSIs To prevent SSIs, doctors, nurses, and other heal thcare providers: Clean their hands and arms up to their elbows with an antiseptic agent just before the surgery. Clean their hands with soap and water or an alcohol-based hand rub before and after caring for each patient. May remove some of your saundra r immediately before your surgery using electric clippers if the hair is in the same area where the procedure will occur. They should not shave you with a razor. Wear special hair covers, m asks, gowns, and gloves during surgery to keep the surgery area clean. Give you antibiotics before your surgery starts. In most cases, you should get antibiotics within 60 minutes before the surgery starts and the antibiotics should be stopped within 24 hours after surgery. Clean the skin at the site of your surgery with a special soap that kills germs. What can I do to help prevent SSIs Before your surgery: Tell your doctor about othe r medical problems you may have. Health problems such as allergies, diabetes, and obesity could affect your surgery and your treatment. Quit smoking. Patients who smoke get more infections. Talk to your doctor about how you can quit before your surgery. Do not shave near the area where you will have surgery. Shaving with a razor can irritate your skin, making it easier to develop an infection. At the time of your surgery: Speak up if someone tries t o shave you with a razor before surgery. Ask why you need to be shaved and talk with your surgeon if you have any concerns. Ask if you will receive antibiotics before surg amira. After your surgery: Make sure that your healthc are providers clean their hands before examining you, either with soap and water or an alcohol-based hand rub. If you do not see your providers clean their hands, please ask them to do so. Family and friends who visi t you should not touch the surgical wound or dressings. Family and friends should c lean their hands with soap and water or an alcohol- based hand rub before and after visiting you. If you do not see them clean their hands, ask them to clean their hands. What do I need to do when I go home from the [facility] Before you go home, your do ctor or nurse should explain everything you need to know about taking care of your wound. Make sure you understand how to care for your wound before you leave the hospital. Always clean your hands before and after caring for your wound. Before you go home, make vela re you know who to contact if you have questions or problems after you get home. If you have any symptoms of an infection, such as redness and pain at the surgery site, drainage, or fever, call your doctor immediately. If you have questions, please ask your doctor or nurse. IJOSEPH SHEA maci and that [facility] is not responsible for any personal belongings/effects or valuables that have not been identified on the valuable and belonging list. An y personal effects brought i nto the facility and not recorded on the valuables and belongings form are the responsibility of the patient/family/significant other. Discharge Education: Education Handouts: Inferior Vena Cava Filter Insertion, Care After; Monitored Anesthesia Care; Surgical Site Infections - Tunisian (Custom) (DPARRISH) Medication Handouts: I have received the indicate d patient education materials/instructions and medication list and have verbalized understanding. _ Patient Signature Provider Signature Date and Time Date and Time Clinical Summary [facility] 11/15/2019 [facility] [address] [address] Transfer of Care Summary Please take with you to your follow-up appointment with your regular physician. Person Information Name:JOSEPH VALDIVIA :1940 79 Ye ars SEX:F (EV) Address and Phone:[address] [place] [address] Language:Tunisian Race: Ethnicity:Non-Hi spanic Visit Information Date of Discharge: LOS:0 Reason for Visit: Diagnosis: Comment: Providers Primary Care Provider:Carol Ruff [id number] Care Team Providers: Attending Physician: Ed Huitron MD MEDICAL INFORMATION Height 167.64 cm Weight 68.027 kg BMI 24.21 kg/m2 Smoking Status Blood Pressure 149 mm Hg / 82 mm Hg Cognitive and Functional Status Allergies NKA The following Tests Were Performed During Your V isit: Laboratory or Other Results This Visit (last charted value for your 11/15/2019 visit) WBC 11/15/2019 8:33 AM WBC: 15.3 thousand/uL -- Normal range between ( 4.8 and 10.8 ) RBC 11/15/2019 8:33 AM RBC: 4.00 million/uL -- Normal range between ( 4.00 and 5.40 ) Hgb 11/15/2019 8:33 AM Hgb: 12.4 gm/dL -- Normal range between ( 11.5 and 16.0 ) Hct 11/15/2019 8:33 AM Hct: 35.6 % -- Normal range between ( 37.0 and 47.0 ) Platelets 11/15/2019 8:33 AM Plt: 149 thousand/uL -- Normal range between ( 130 and 400 ) MCV 11/15/2019 8:33 AM MCV: 89.0 fL -- Normal range between ( 80.0 and 100.0 ) MCH 11/15/2019 8:33 AM MCH: 31.0 pg -- Normal range between ( 27.0 and 34.0 ) MCHC 11/15/2019 8:33 AM MCHC: 34.8 gm/dL -- Normal range between ( 32.0 and 37.0 ) RDW 11/15/2019 8:33 AM RDW: 13.1 % -- Normal range between ( 11.5 and 16.0 ) Man Neut 11/15/2019 8:33 AM Man Segs: 80 % -- Normal range between ( 35 and 80 ) Man Bands 11/15/2019 8:33 AM Man Bands: 2 % -- Normal range between ( 0 and 5 ) Man Lymphs 11/15/2019 8:33 AM Man Lymphs: 3 % -- Normal range between ( 10 an d 55 ) Man Macon 11/15/2019 8:33 AM Man Monos: 14 % -- Normal range between ( 0 and 15 ) Man Eos 11/15/2019 8:33 AM Man Eos: 1 % -- Normal range between ( 0 and 9 ) Plt Est 11/15/2019 8:33 AM Plt Est: Adequate RBC Morph 11/15/2019 8:33 AM RBC Morph: Normal Neut Abs Man 11/15/2019 8:33 AM Neut Abs Man: 12.5 thousand/uL -- Normal range between ( 1.7 and 8.6 ) Eos Abs Man 11/15/2019 8:33 AM Eos Abs Man: 0.2 thousand/uL -- Normal range be tween ( 0.0 and 1.0 ) CBC Scan 11/15/2019 8:33 AM CBC Scan: Manual Diff Macon Abs Man 11/15/2019 8:33 AM [place]on Abs Man: 2.1 thousand/uL -- Normal range b etween ( 0.0 and 1.6 ) Lymph Abs Man 11/15/2019 8:33 AM Lymph Abs Man: 0.5 thousand/uL -- Normal range between ( 0.5 and 5.9 ) Sodium 11/15/2019 8:33 AM Sodium: 134 mmol/L -- Normal range between ( 13 6 and 145 ) Potassium 11/15/2019 8:33 AM Potassium: 3.6 mmol/L -- Normal range between ( 3.5 and 5.1 ) Chloride 11/15/2019 8:33 AM Chloride: 98 mmol/L -- Normal range between ( 9 8 and 107 ) CO2 11/15/2019 8:33 AM CO2: 25 mmol/L -- Normal range between ( 23 and 31 ) BUN 11/15/2019 8:33 AM BUN: 13 mg/dL -- Normal range between ( 10 and 20 ) Creatinine 11/15/2019 8:33 AM Creatinine: 0.71 mg/dL -- Normal range between ( 0.57 and 1.25 ) Calcium 11/15/2019 8:33 AM Calcium: 8.8 mg/dL -- Normal range between ( 8. 4 and 10.2 ) Anion Gap 11/15/2019 8:33 AM Anion Gap: 15 -- Normal range between ( 10 and 20 ) Glucose 11/15/2019 8:33 AM Glucose Level: 112 mg/dL -- Normal range betwee n ( 83 and 110 ) eGFR Non- Am 11/15/2019 8:33 AM eGFR Non- Am: >60 mL/min/1.73m2 eGFR Am 11/15/2019 8:33 AM eGFR Afr/Amer: >60 mL/min/1.73m2 PT 11/15/2019 8:33 AM PT: 15.0 sec -- Normal range between ( 10.0 and 12.3 ) INR 11/15/2019 8:33 AM INR: 1.33 PTT 11/15/2019 8:33 AM PTT: 29.3 sec -- Normal range between ( 25.5 an d 36.0 ) Medication List: amLODIPine (amLODIPine 2.5 mg oral tablet) 1 tab (s) By mouth once daily. amoxicillin-clavulanate (anthony xicillin-clavulanate 875 mg-125 mg oral tablet) 875 Milligram By mouth every 12 hours. APAP/butalbital/caffeine (Fioricet 325/50/40) 1 tab(s) By mouth. apixaban (Eliquis 5 mg oral tablet) 1 tab(s) By mouth twice daily. atorvastatin (atorvastatin 20 mg oral tablet) 1 tab(s) By mouth once daily. bethanechol 10 Milligram By mouth three times da pascale. calcium-vitamin D (Calcium 600 +D Tab) 1 tab(s) By mouth three times daily. cholecalciferol (Vitamin D3 5,000 Unit oral capsule) 1 cap By mouth once daily. with food. citalopram 10 Milligram By mouth once daily. cyanocobalamin (Vitamin B12 50 mcg oral tablet) 1 tab(s) By mouth once daily. docusate (Colace) 100 Milligram By mouth twice d aily. guaiFENesin (guaiFENesin 600 mg oral tablet, extended release) 1 tab(s) By mouth twice daily. ondansetron (ondansetron 4 m g oral tablet) 1 tab(s) By mouth every 4 hours as needed Nausea. oxyCODONE (oxyCODONE 5 mg or al capsule) 1 cap By mouth every 4 hours as needed as needed for pain. saccharomyces boulardii (Florastor) 250 Milligra m By mouth twice daily. senna 17.2 Milligram By mouth once daily. 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 ( 7) Deep venous thrombosis of left popliteal vein Acute superficial venous thrombosis of left low er extremity Acute embolic stroke Elevated troponin Stroke Procedures No Procedures Documented Immunizations No Immunizations Documented This Visit Additional Patient Instructions: No qualifying d layton available Patient Education Information: Instructions Assigned: Inferior Vena Cava Filter In sertion, Care After; Monitored Anesthesia Care; Surgical Site Infections - Tunisian (Custom) (DPARRISH) Prescription List: Continue Home Meds Other Medications amLODIPine (amLODIPine 2.5 mg oral tablet) 1 tab (s) By mouth once daily. Last Dose Given: Next Dose Du e: amoxicillin-clavulanate (anthony xicillin-clavulanate 875 mg-125 mg oral tablet) 875 Milligram By mouth every 12 hours. Last Dose Given: Next Dose Du e: APAP/butalbital/caffeine (Fioricet 325/50/40) 1 tab(s) By mouth. Last Dose Given: Next Dose Du e: apixaban (Eliquis 5 mg oral tablet) 1 tab(s) By mouth twice daily. Last Dose Given: Next Dose Du e: atorvastatin (atorvastatin 20 mg oral tablet) 1 tab(s) By mouth once daily. Last Dose Given: Next Dose Du e: bethanechol 10 Milligram By mouth three times da pascale. Last Dose Given: Next Dose Du e: calcium-vitamin D (Calcium 600 +D Tab) 1 tab(s) By mouth three times daily. Last Dose Given: Next Dose Du e: cholecalciferol (Vitamin D3 5,000 Unit oral capsule) 1 cap By mouth once daily. with food. Last Dose Given: Next Dose Du e: citalopram 10 Milligram By mouth once daily. Last Dose Given: Next Dose Du e: cyanocobalamin (Vitamin B12 50 mcg oral tablet) 1 tab(s) By mouth once daily. Last Dose Given: Next Dose Du e: docusate (Colace) 100 Milligram By mouth twice d aily. Last Dose Given: Next Dose Du e: guaiFENesin (guaiFENesin 600 mg oral tablet, extended release) 1 tab(s) By mouth twice daily. Last Dose Given: Next Dose Du e: ondansetron (ondansetron 4 m g oral tablet) 1 tab(s) By mouth every 4 hours as needed Nausea. Last Dose Given: Next Dose Du e: oxyCODONE (oxyCODONE 5 mg or al capsule) 1 cap By mouth every 4 hours as needed as needed for pain. Last Dose Given: Next Dose Du e: saccharomyces boulardii (Florastor) 250 Milligra m By mouth twice daily. Last Dose Given: Next Dose Du e: senna 17.2 Milligram By mouth once daily. Last Dose Given: Next Dose Du e: Advance Directive: Follow up: With: Address: When: Ed Huitron [address], [facility] [address] [place] [address] [phone] Business (1) Within 1 to 3 days With: Address: When: Carol Ruff Within 1 to 3 days No Prescheduled Appointments Found Physician Documentation/Notes: Inpatient Discharge Note - Inpatient Discharge/Transfe r Note (v3) Entered On: 11/15/2019 14:02 MST 11/15/2019 [place] Text Performed On: 11/15/2019 14:01 MST by Daily, Renetta Sales RN [facility] Inpatient Discharge Note Date/Time Discharged : 11/15/2019 12:18 MST Disposition : Home/Self care Via : Wheelchair Accompanied By : Patient, Other: son Discharge From SNF : No Escorted to Exit By : Other: [place] Transportation : Medical Transport Valuables/Belongings signed by patient : Yes Sent With : Belongings Equipment : None Community Resource Information : None Daily, Hannah Sales RN - 11/15/2019 14:01 MST Procedure Note Patient: JOSEPH VALDIVIA MRN: [id number] 11/15/2019 Zurinegrito Marlonisaac Age: 79 years Sex: F : Active Insurance: CLIENT BILLING [id number] [facility] Admitting MD: [place] [facility] [place] : PCP: Carol Mason i, MD Author: Rolando Ortiz MD Postoperative Information Procedure: IVC Filter Placement Modality: Fluoroscopy/Ultrasound Preoperative Diagnosis: _DVT_. Postoperative Diagnosis: Same. Performed by: Rolando Ortiz MD. 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 Estimated Blood Loss: scant. Anesthesia Type: 2 ml Local 1% lidocaine. Sedation: 2 mg IV Versed, 100 mcg IV Fentanyl. Meds: 1 Gm IV Ancef Complications: No immediate or apparent Patient status at the end of procedure:: Stable. Disposition: _ Patient returned to [facility] for recov amira prior to discharge home. (Please see dictated Radiology Report for proced ural details) Electronically Signed By: Rolando Ortiz MD On 11/15/19 10:16 Co Signature By: Modify Signature By: Discharge Instructions [facility] 11/08/19 [facility] Document [address] [place] [address] JOSEPH VALDIVIA :1940 (EV) Visit Date:11/06/2019 Discharge to External Facility Patient Information Name:JOSEPH VALDIVIA Address: [address] [place] [address] Sex:F Date of :1940 Emergency Contact:LAMAR GONZÁLES Your Care Team Admitting Physician - Aaron Miller MD Attending Physician - Aaron Miller MD Consulting Physician - Aaron Miller MD, Jimmy D MD Lifetime Physician(PCP) - Carol Ruff MD Discharge Diagnosis Acute embolic stroke Deep venous thrombosis of left popliteal vein Elevated troponin Encephalopathy Follow-up Instructions We would like to thank you for allowing us to assist you with your healthcare needs. The following includes follow-up information and discharge to external facility order information. You May Need to Schedule the Following Appointm ents Follow Up with Kristie Carlisle MD When Within 1 to 2 weeks Where: [phone] Follow Up with Wilson Mccall MD When Within 2 to 3 weeks Where: [phone] Follow Up with Carol Ruff MD When Within 2 to 3 weeks Where: [phone] External Facility Discharge Orders Discharge Orders: Discharge: Electronically S igned By: Aaron Miller MD, When: Today, Disposition: Half-Way Facility, vs Acute Rehab Discharge TB Status: Electr onically Signed By: Aaron Miller MD, Special Instructions: The patient is free from signs of active pulmonary TB Discharge Communication: El ectronically Signed By: Aaron Miller MD, Enter verbatim order: Provide written instructions specific to diagnosis Order Comments: angely edwards to follow at [facility] External Facility Discharge Diet: Electronically Signed By: Aaron Miller MD, Diet Type: Cardiac Order Comments: see speech tx recs Discharge Lab Orders: Elect ronically Signed By: Aaron Miller MD, Labs to be ordered: Other Discharge Therapies: Electr onically Signed By: Aaron Miller MD, Physical Therapy Eval and Treat, ST/OT eval and treat Discharge Planning-Case Man agement Consult: Electronically Signed By: Aaron Miller MD, Reason for Case Mgmt Consult: SNF Placement Allergies NKA Medications Patient has received the in dicated patient education materials/instructions and medication list and has verbalized understanding. Education Materials Ischemic Stroke An ischemic stroke (cerebro vascular accident, or CVA) is the sudden of brain tissue that occurs when an area of the brain does not get enough oxygen. It is a medical emergency that must be treate d right away. An ischemic st roke can cause permanent loss of brain function. This can cause problems with how different parts of your body function. What are the causes This condition is caused by a decrease of oxygen supply to an area of the brain, which may be the result of: A small blood clot (embolus ) or a buildup of plaque in the blood vessels (atherosclerosis) that blocks blood flow in the brain. An abnormal heart rhythm (atrial fibrillation). A blocked or damaged artery in the head or neck . Sometimes the cause of stroke is not known (cry ptogenic). What increases the risk Certain factors may make yo u more likely to develop this condition. Some of these factors are things that you can change, such as: Obesity. Smoking cigarettes. Taking oral control, especially if you al so use tobacco. Physical inactivity. Excessive alcohol use. Use of illegal drugs, especially cocaine and me thamphetamine. Other risk factors include: High blood pressure (hypertension). High cholesterol. Diabetes mellitus. Heart disease. Being , , Hispan ic, or . Being over age 60. Family history of stroke. Previous history of blood clots, stroke, or tra nsient ischemic attack (TIA). Sickle cell disease. Being a woman with a history of preeclampsia. Migraine headache. Sleep apnea. Irregular heartbeats, such as atrial fibrillati on. Chronic inflammatory diseases, such as rheumato id arthritis or lupus. Blood clotting disorders (hypercoagulable state ). What are the signs or symptoms Symptoms of this condition usually develop suddenly, or you may notice them after waking up from sleep. Symptoms may include sudden: Weakness or numbness in you r face, arm, or leg, especially on one side of your body. Trouble walking or difficulty moving your arms or legs. Loss of balance or coordination. Confusion. Slurred speech (dysarthria). Trouble speaking, understanding speech, or both (aphasia). Vision changessuch as doubl e vision, blurred vision, or loss of visionin one or both eyes. Dizziness. Nausea and vomiting. Severe headache with no kno wn cause. The headache is often described as the worst headache ever experienced. If possible, make note of t he exact time that you last felt like your normal self and what time your symptoms started. Tell your health care provider. If symptoms come and go, th is could be a sign of a warning stroke, or TIA. Get help right away, even if you feel better. How is this diagnosed This condition may be diagnosed based on: Your symptoms, your medical history, and a phys ical exam. CT scan of the brain. MRI. CT angiogram. This test use s a computer to take X-rays of your arteries. A dye may be injected into your blood to show the inside of your blood vessels more clearly. MRI angiogram. This is a ty pe of MRI that is used to evaluate the blood vessels. Cerebral angiogram. This te st uses X-rays and a dye to show the blood vessels in the brain and neck. You may need to see a [facility] care provider who specializes in stroke care. A stroke specialist can be seen in person or through communication using telephone or television technology (telemedicine). Other tests may also be done to find the cause of the stroke, such as: Electrocardiogram (ECG). Continuous heart monitoring. Echocardiogram. Transesophageal echocardiogram (AMBER). Carotid ultrasound. A scan of the brain circulation. Blood tests. Sleep study to check for sleep apnea. How is this treated Treatment for this conditio n will depend on the duration, severity, and cause of your symptoms and on the area of the brain affected. It is very important to get treatment at the first sign of stroke s ymptoms. Some treatments wor k better if they are done within 36 hours of the onset of stroke symptoms. These initial treatments may include: Aspirin. Medicines to control blood pressure. Medicine given by injection to dissolve the blo od clot (thrombolytic). Treatments given directly t o the affected artery to remove or dissolve the blood clot. Other treatment options may include: Oxygen. IV fluids. Medicines to thin the blood (anticoagulants or antiplatelets). Procedures to increase blood flow. Medicines and changes to yo ur diet may be used to help treat and manage risk factors for stroke, such as diabetes, high cholesterol, and high blood pressure. After a stroke, you may wor k with physical, speech, mental health, or occupational therapists to help you recover. Follow these instructions at home: Medicines Take dccp-mot-gyqufsv and p rescription medicines only as told by your health care provider. If you were told to take a medicine to thin your blood, such as aspirin or an anticoagulant, take it exactly as told by your health care provider. Taking too much blood-thinning medicine can cau se bleeding. If you do not take enough b lood-thinning medicine, you will not have the protection that you need against another stroke and other problems. Understand the side effects of taking anticoagulant medicine. When taking this type of medicine, make sure you: Hold pressure over any cuts for longer than usu al. Tell your dentist and other health care providers that you are taking anticoagulants before you have any procedures that may cause bleeding. Avoid activities that may cause trauma or injur y. Eating and drinking Follow instructions from your health care provi aruna about diet. Eat healthy foods. If your ability to swallow was affected by the stroke, you may need to take steps to avoid choking, such as: Taking small bites when eating. Eating foods that are soft or pureed. Safety Follow instructions from your health care team about physical activity. Use a walker or cane as told by your health car e provider. Take steps to create a safe home environment in order to reduce the risk of falls. This may include: Having your home looked at by specialists. Installing grab bars in the bedroom and bathroo m. Using safety equipment, such as raised toilets and a seat in the shower. General instructions Do not use any tobacco prod ucts, such as cigarettes, chewing tobacco, and e- cigarettes. If you need help quitting, ask your health care provider. Limit alcohol intake to no more than 1 drink a day for non women and 2 drinks a day for men. One drink equals 12 oz of beer, 5 oz of wine, or 1 oz of hard liquor. If you need help to stop us ing drugs or alcohol, ask your health care provider about a referral to a program or specialist. Maintain an active and heal thy lifestyle. Get regular exercise as told by your health care provider. Keep all follow-up visits a s told by your health care provider, including visits with all specialists on your health care team. This is important. How is this prevented Your risk of another stroke can be decreased by managing high blood pressure, high cholesterol, diabetes, heart disease, sleep apnea, and obesity. It can also be decreased by quitting smoking, limiting alcohol, and staying physically active. Your health care provider w ill continue to work with you on measures to prevent short-term and long-term complications of stroke. Get help right away if: You have any symptoms of a stroke. 'BE FAST' is an easy way to remember the main warning signs of a stroke: B - Balance. Signs are dizziness, sudde n trouble walking, or loss of balance. E - Eyes. Signs are trouble seeing or a sudden change in vision. F - Face. Signs are sudden weakness or numbness of the face, or the face or eyelid drooping on one side. A - Arms. Signs are weaknes s or numbness in an arm. This happens suddenly and usually on one side of the body. S - Speech. Signs are sudde n trouble speaking, slurred speech, or trouble understanding what people say. T - Time. Time to call [facility] services. Write down what time symptoms started. You have other signs of a stroke, such as: A sudden, severe headache with no known cause. Nausea or vomiting. Seizure. These symptoms may represen t a serious problem that is an emergency. Do not wait to see if the symptoms will go away. Get medical help right away. Call your local emergency services (911 in the [place] Do not drive yourself to the hospital. Summary An ischemic stroke (cerebro vascular accident, or CVA) is the sudden of brain tissue that occurs when an area of the brain does not get enough oxygen. Symptoms of this condition usually develop suddenly, or you may notice them after waking up from sleep. It is very important to get treatment at the first sign of stroke symptoms. Stroke is a medical emergency that must be treated right away. This information is not int ended to replace advice given to you by your health care provider. Make sure you discuss any questions you have with your health care provider. Document Released: 09/20/20 Document Revised: 06/09/2019 Document Reviewed: 12/16/2016 [employer] Interactive Patient Education 2019 [employer]. Emotional Health After Stroke Your emotional health may c hange after a stroke. You may have fear, anxiety, anger, sadness, and other feelings. Some of these changes happen because a stroke can damage your brain and nervous system. You may also have these feel ings because coping with a change in your health can feel overwhelming. Depression and other emotio nal changes can slow your recovery after a stroke. It is important to recognize the symptoms so that you can take steps to strengthen your emotional health. What are some common emotions after a stroke You may have: Fear. Anxiety. Anger. Frustration. Sadness. Feelings of loss or grief. Depression. Crying or laughing at the w jasiel time or wrong situation (pseudobulbar affect, orPBA). What are the symptoms of depression Depression after a stroke c an happen right away, or it can show up later. Symptoms of depression may include: Sleep problems. Changes in normal eating habits, such as eating too much or too little. Weight gain or weight loss. Not having energy or enthusiasm (lethargy). Feeling very tired (fatigue). Avoiding people and activities (social withdraw al). Irritability. Crying more than usual. Mood swings. Not being able to concentrate. Feeling hopeless. Hating yourself. Having suicidal thoughts. If you ever feel like you m ay hurt yourself or others, or have thoughts about taking your own life, get help right away. You can go to your nearest emergency department or call: Your local emergency services (911 in the [place] . A suicide crisis helpline, such as the National Suicide Prevention Lifeline at . This is open 24 hours a day. What increases my risk of depression Having a stroke raises the risk of depression. The risk also goes up if you: Are socially isolated. Have a family history of depression. Have a history of depressio n or other mental health problems before the stroke. Are unable to work or do activities that you pr eviously enjoyed. Need help from others for daily activities. Use drugs or drink alcohol. Take certain medicines, suc h as sleeping pills or high blood pressure medicines. What are some coping methods I can use Ask your health care provid er for help. Your health care provider may recommend treatments for depression, such as: Talk therapy or counseling with a mental health professional. This may include cognitive behavioral therapy (CBT) to help change your patterns of thinking. Medical therapies, such as brain stimulation or light therapy. Lifestyle changes, such as eating a healthy t and avoiding alcohol. Antidepressant medicines. Alternative therapies, such as acupuncture, mus ic therapy, or pet therapy. Other coping strategies you may try include: Physical therapy or exercises. Try to do some e xercise every day. Writing your thoughts in a journal. An example might be keeping track of unrealistic thoughts or keeping a log of things you are thankful for. Practicing good sleep habits, such as getting u p at the same time every day. Following a predictable routine each day. Participating in activities that make you laugh . Mindfulness therapy. This m ay include meditation and other techniques to lower your stress. Joining a support group for people who are recovering from a stroke. These groups provide social interaction and help you feel connected to others. Your health care team can help you find a support group in your area. Summary Your emotional health may c hange after a stroke. You may have fear, anxiety, anger, sadness, and other feelings. It is important to recogniz e the symptoms of depression and other emotional problems. If you experience emotional changes, let your loved ones know and contact your health care provider. This information is not int ended to replace advice given to you by your health care provider. Make sure you discuss any questions you have with your health care provider. Document Released: 12/25/19 18 Document Revised: 12/24/2017 Document Reviewed: 12/24/2017 [employer] Interactive Patient Education 2019 Danielle Eric Fall Prevention in the Home, Adult Falls can cause injuries an d can affect people from all age groups. There are many simple things that you can do to make your home safe and to help prevent falls. Ask for help when making these changes, if needed. What actions can I take to prevent falls General instructions Use good lighting in all rooms. Replace any lig ht bulbs that burn out. Turn on lights if it is dark. Use night-lights. Place frequently used items in [id number] places. Lower the shelves around your home if necessary. Set up furniture so that th ere are clear paths around it. Avoid moving your furniture around. Remove throw rugs and other tripping hazards fr om the floor. Avoid walking on wet floors. Fix any uneven floor surfaces. Add color or contrast paint or tape to grab bars and handrails in your home. Place contrasting color strips on the first and last steps of stairways. When you use a stepladder, make sure that it is completely opened and that the sides are firmly locked. Have someone hold the ladder while you are using it. Do not climb a closed stepladder. Be aware of any and all pets. What can I do in the bathroom Keep the floor dry. Immedia tely clean up any water that spills onto the floor. Remove soap buildup in the tub or shower on a r egular basis. Use non-skid mats or decals on the floor of the tub or shower. Attach bath mats securely with double-sided, no n-slip rug tape. If you need to sit down whi le you are in the shower, use a plastic, non-slip stool. Install grab bars by the to ilet and in the tub and shower. Do not use towel bars as grab bars. What can I do in the bedroom Make sure that a bedside light is easy to reach . Do not use oversized bedding that drapes onto t he floor. Have a firm chair that has side arms to use for getting dressed. What can I do in the kitchen Clean up any spills right away. If you need to reach for so mething above you, use a sturdy step stool that has a grab bar. Keep electrical cables out of the way. Do not use floor [place] or wax that makes floors slippery. If you must use wax, make sure that it is non-skid floor wax. What can I do in the stairways Do not leave any items on the stairs. Make sure that you have a l ight switch at the top of the stairs and the bottom of the stairs. Have them installed if you do not have them. Make sure that there are munoz ndrails on both sides of the stairs. Fix handrails that are broken or loose. Make sure that handrails are as long as the stairways. Install non-slip stair treads on all stairs in your home. Avoid having throw rugs at the top or bottom of stairways, or secure the rugs with carpet tape to prevent them from moving. Choose a carpet design that does not hide the e dge of steps on the stairway. Check any carpeting to make sure that it is firmly attached to the stairs. Fix any carpet that is loose or worn. What can I do on the outside of my home Use bright outdoor lighting. Regularly repair the edges of walkways and driv eways and fix any cracks. Remove high doorway thresholds. Trim any shrubbery on the main path into your h ome. Regularly check that handra ils are securely fastened and in good repair. Both sides of any steps should have handrails. Install guardrails along the edges of any raise d decks or porches. Clear walkways of debris and clutter, including tools and rocks. Have leaves, snow, and ice cleared regularly. Use sand or salt on walkways during winter abi hs. In the garage, clean up any spills right away, including grease or oil spills. What other actions can I take Wear closed-toe shoes that fit well and support your feet. Wear shoes that have rubber soles or low heels. Use mobility aids as needed, such as canes, wal kers, scooters, and crutches. Review your medicines with your health care provider. Some medicines can cause dizziness or changes in blood pressure, which increase your risk of falling. Talk with your health care provider about other ways that you can decrease your risk of falls. This may include working with a physical therapist or review trainer to improve your strength, balance, and endurance. Where to find more information Centers for Disease Control and Prevention, JJ MICHAEL: https://www.cdc.gov [employer] [place] [employer]: https://ka2wxyi.ni a.nih.gov Contact a health care provider if: You are afraid of falling at home. You feel weak, drowsy, or dizzy at home. You fall at home. Summary There are many simple thing s that you can do to make your home safe and to help prevent falls. Ways to make your home safe include removing tripping hazards and installing grab bars in the bathroom. Ask for help when making these changes in your home. This information is not int ended to replace advice given to you by your health care provider. Make sure you discuss any questions you have with your health care provider. Document Released: 09/10/20 03 Document Revised: 05/05/2018 Document Reviewed: 05/05/2018 [employer] Interactive Patient Education 2019 [facility] [employer] [facility]. Preventing Exposure to Secondhand Smoke, Adult Secondhand smoke is smoke t hat comes from burning tobacco. It includes smoke from cigarettes, pipes, or cigars. Being exposed to secondhand smoke is as dangerous as smoking. Common places you may be exposed to secondhand smoke include: Work. Public places, like restaurants, shopping cente rs, and [place]. Home, especially if you live [facility] an [facility]. How can secondhand smoke affect me There is no safe level of s econdhand smoke. Smoke from cigarettes contains thousands of chemicals, including chemicals that are known to cause cancer. Secondhand smoke can cause many health problems, such as: Cancer. Heart disease. Stroke. problems, such as loss (miscarriage), low weight, and early (premature). What actions can I take to prevent exposure to secondhand smoke Do not smoke. Keep your home smoke-free. Do not allow smoking in your car. Avoid public places where smoking is allowed. Talk to your employer about your company's kenia cies on smoking. Your workplace should have a policy smoking areas from nonsmoking areas. Smoking areas should have a system for ventilat ing and cleaning the air. Where to find more information Centers for Disease Control and Prevention (CDC): https://www.cdc.gov/tobacco/ [place] [employer]: https://www.cancer.org [place] [employer]: https://www.heart.o rg Summary Secondhand smoke is smoke t hat comes from burning tobacco. Secondhand smoke exposes you to the dangers of smoking, even if you are not the one smoking. There is no safe level of s econdhand smoke. Several chemicals in secondhand smoke are known to cause cancer. Secondhand smoke can also cause many other health problems. To prevent exposure to seco ndhand smoke, do not smoke, discourage others from smoking, keep your home and car smoke-free, and avoid places where smoking is allowed. This information is not int ended to replace advice given to you by your health care provider. Make sure you discuss any questions you have with your health care provider. Document Released: 10/28/19 06 Document Revised: 10/27/2018 Document Reviewed: 10/27/2018 [employer] Interactive Patient Education 2019 [facility] [employer]. Hand Washing Germs such as bacteria, vir uses, and parasites are found everywhere. They can be in the air and water. They can also be on surfaces like food, door handles, and your skin. Every day, your hands touch g erms. Many of these germs ca n make you and your family sick. Washing your hands is one of the best ways to lower your risk of getting and sharing germs. When should I wash my hands You should wash your hands whenever you think they are dirty. You should also wash your hands: Before: Visiting a baby or anyone w ith a weakened disease-fighting system (immunesystem). Putting in and taking out contact lenses. After: Using the bathroom or helping someone else use the bathroom. Working or playing outside. Touching or taking out the garbage. Touching anything dirty around your home. Sneezing, coughing, or blowing your nose. Using a phone, including your mobile phone. Touching an animal, animal food, animal poop, o r its toys or leash. Touching money. Using household rn pediatric [facility] or poisonous chemicals . Handling dirty clothes, bedding, or rags. Using public transportation. Going shopping, especially if you use a shoppin g cart or basket. Shaking hands. Handling livestock, such as cows or sheep. Before and after: Preparing food. Eating. Visiting or taking care of someone who is sick. This includes touching used tissues, toys, and clothes. Changing a bandage (dressing). Taking care of an injury or wound. Giving or taking medicine. Preparing a bottle for a baby. Feeding a baby or young child. Changing a diaper. What is the right way to wash my hands 1. Wet your hands with clean, running water. Turn off the water or move your hands out of the running water. 2. Apply liquid soap or bar soap to your hands. 3. Rub your hands together quickly to create lathe r. 4. Keep rubbing your hands tog ether for at least 20 seconds. Thoroughly scrub all parts of your hands. This includes scrubbing under your fingernails and between your fingers. 5. Rinse your hands with clean , running water. Do this until all the soap is gone. 6. Dry your hands using an air dryer or a clean paper or cloth towel, or let your hands air-dry. Do not use your clothing or a dirty towel to dry your hands. If you are in a public restroom, use your towel : To turn off the water faucet. To open the bathroom door. How can I clean my hands if I do not have soap and water If soap and clean water are not available, use a hand-washing wipe, spray, or gel (hand documentation liaison). Use one that contains at least 60% alcohol. If you are handling food, gels are not recommended as a replacement for hand washing with soap and water. To use these products, follow the directions on the product, and: Apply enough product to cover your hands. Make sure you wipe, rub, or spray the product so that it reaches every part of your hands and wrists. Include the backs of your hands, between your fingers, and under your fingernails. Rub the product onto your hands until it dries. Summary Every day, your hands touch germs. Many of these germs can make you and your family sick. Washing your hands is one o f the best ways to lower your risk of getting and sharing germs. If soap and clean water are not available, use a hand-washing wipe, spray, or gel. This information is not int ended to replace advice given to you by your health care provider. Make sure you discuss any questions you have with your health care provider. Document Released: 09/02/20 Document Revised: 06/29/2018 Document Reviewed: 06/29/2018 [employer] Interactive Patient Education 2019 [facility] [employer]. [address] [address] [place] [address] PREVENTING INFECTION Five things you can do to p revent infection (such as colds, flu and strep throat). A 'Speak Up' safety initiative by [employer] of Healthcare Organizations 1. Clean your hands. Use soap and warm water. We t hands and apply soap. Rub your hands really well for at least 15 seconds. Rinse and dry. Use paper towel to turn water off. Or, if your hands do not lo ok dirty, clean them with alcohol-based hand sanitizers. Rub the documentation liaison all over your hands, especially under your nails and between your fingers, until your hands are dry . Children should be supervised when using this product. Clean your hands before ford kike or eating food. Clean them after you use the bathroom, take out the trash, change a diaper, visit someone who is ill, or play with a pet. Visitors and family members of patients should wash/clean their hands before entering the room to visit and any time they leave the room. 2. Make sure health care providers clean their hands and wear gloves. Doctors, nurses, dentists a nd other health care providers come into contact with lots of bacteria and viruses. So before they treat you, ask them if they've cleaned their hands. Health care providers shoul d wear clean gloves when they perform tasks such as taking throat cultures, pulling teeth, taking blood, touching wounds or body fluids, and examining your private parts. Don 't be afraid to gently remind them to wear glove s. 3. In the hospital, health care workers use barriers like gloves to protect the patients and themselves. While in the hospital a pat ient may have a specific germ that can be spread to others. These germs can be viruses or bacteria that cause illness. Some diseases and/or condit ions require the use of additional barriers, like gowns and/or masks and Isolation Precautions. Comply with additional isolation precautions. Signs are posted on/at patient doors when addit ional precautions are needed. All patients, visitors and staff are asked to follow the instructions posted on/at the patient door. Please ask your nurse if you have additional qu estions. Patients and families in [facility] should not use the common kitchen area, but should ask health care workers for items that they need. 4. Cover your mouth and nos e. Many diseases are spread through sneezes and coughs. When you sneeze or cough, t he germs can travel 3 feet or more! Cover your mouth and nose to prevent the spread of infection to others. Use a tissue! Keep tissues handy at home, at work and in your pocket. Be sure to throw away used tissues and then clean your hands. If you don't have a tissue, cover your mouth and nose with the bend of your elbow or hands. If you use your hands, wash/clean them right away. 5. If you are sick, avoid close contact. If you are sick, stay away from other people. Stay home if you have a fever. Call work or school and tell them you are sick. When you go for medical ida atment, call ahead and ask if there's anything you can do to avoid infecting people in the waiting room. These steps can help preven t the spread of colds, the flu, and diseases like pneumonia, and strep throat. Remember to stay current on your immunizations. Rehabilitation After a Stroke, Adult A stroke causes damage to t he brain cells, which can affect your ability to walk, talk, or remember things. The impact of a stroke is different for everyone, and so is recovery. Some people have progre ss during the first few days after treatment. Others may take weeks or longer to make progress. Stroke rehabilitation includes a variety of treatments to help you recover and promote your independence a fter a stroke. You may not b e able do everything that you did before the stroke, but you can learn ways to manage your lifestyle and be as independent as possible. Rehabilitation will start as soon as y ou are able to participate a fter your stroke, and it involves care from a team that may include: Family and friends. Your lo jud ones know you best and can be very helpful in your recovery. Physicians. Nurses. Physical and occupational therapists. Speech-language therapists. A engineer technician. A psychologist. A social problems specialist. Keep open communication wit h all members of your care team. Share your medical records if needed, and take notes about each provider's recommendations. What is physical therapy Physical therapists (PTs) h elp you to improve your coordination, balance, and muscle strength. Physical therapy may involve: Range of motion exercises. Help to move between lying, sitting, and standi ng positions. Walking with a cane or walker, if needed. Help using stairs. What is occupational therapy Occupational therapists (OT s) help you rebuild your ability to do everyday tasks, such as brushing your teeth, going to the bathroom, eating, and getting dressed. Occupational therapy may also help with: Vision. Visual scanning is a technique that is used to prevent falls. Memory and cognitive traini ng. This therapy includes problem-solving techniques and relearning tasks like making a phone call. Fine muscle movements such as buttoning a shirt or picking up small objects. What is speech therapy Speech-language therapists help you communicate. After a stroke, you may have problems understanding what people are saying, or you may have trouble writing, speaking, or finding the right word for wha t you want to say. You may a lso need speech therapy if you have difficulty swallowing while eating and drinking. Examples of speech-language therapies include: Techniques to strengthen muscles used in sw[place] wing. Naming objects or describin g pictures. This helps retrain the brain to recognize and remember words. Exercises to strengthen the muscles involved in talking, including your tongue and lips. Exercises to retrain your brain in understandin g what you read and hear. How often will I need therapy Therapy will begin as soon as you are able to participate, which is often within the first few days after a stroke. Sessions will be frequent at first. For example, you may have therapy 23 hours a day on most days of the week dur ing the first few months. The intensity depends on the type and severity of your stroke. You may need therapy for several months. Therapy may take place in the hospital, at a rehabilitation center, or in your home. Are there any side effects of therapy Therapy is safe and is usua lly well-tolerated. You may feel physically and mentally tired after therapy, especially during the first few weeks. Rest before therapy sessions if you need to so you can get the most out of your rehabilitation. Follow these instructions at home: Involve your family and fri ends in your recovery, if possible. Having another person to encourage you is beneficial. Follow instructions from [facility] speech-language therapist, engineer technician, or health care provider about what you can safely eat and drink. Eat healthy foods. If your ability to swallow was affected by the stroke, you may need to take steps to avoid cho barry, such as: Taking small bites when eating. Eating foods that are soft or pureed. Drinking liquids that have been thickened. Maintain social connections and interactions with friends, family, and community groups. This is an important part of your recovery. Communication challenges and physical challenges may cause you to feel isolated after a stroke. Consider joining a support group that allows you to talk about the impact of stroke on your life. A psychologist or counselor may be recommended. Your emotional recovery from stroke is just as important as your physical recovery. Keep all follow-up visits a s told by your health care providers. This is important. Summary Stroke rehabilitation inclu twan a variety of treatments to help you recover and promote your independence after a stroke. Rehabilitation will start a s soon as you are able to participate after your stroke, and it includes care from a team of experts. The intensity of therapy de pends on the type and severity of your stroke. You may need therapy for several months. This information is not int ended to replace advice given to you by your health care provider. Make sure you discuss any questions you have with your health care provider. Document Released: 10/09/19 09 Document Revised: 06/10/2019 Document Reviewed: 09/21/2017 [employer] Interactive Patient Education 2019 [employer]. Speech-Language Therapy After a Stroke You may have many physical changes after a stroke, and some of them may affect your ability to communicate. You may have problems talking, putting your thoughts into words, or using and understanding w ords. Speech-language therapy is a common treatm ent after a stroke. How are speech and language affected by a strok e A stroke can damage your br ain and nervous system. In most people, the left side of the brain controls language and speech, so damage to that area can affect those functions. You may have problems with: Understanding spoken or written words. Sharing your thoughts by talking. You may have trouble: Speaking clearly. Saying what you mean to say. What is aphasia Aphasia is a condition that affects your ability to communicate with others. A stroke often causes aphasia because of damage to the left side of the brain. This is typically the side that controls the ability to talk and understand language. Symptom s of aphasia include: Struggling to think of words and names of peopl e, places, and objects. Using the wrong words while talking. Making up new words (withou t knowing it) that do not make sense to other people. Problems putting words together into a sentence . Difficulty understanding others while they talk . Problems with listening, reading, writing, usin g numbers, or doing math. How can therapy help Speech-language therapy is a common treatment during stroke recovery. It may include doing communication activities, exercising your speech muscles, and practicing speech. It may help you: Learn to talk and communicate again. Have conversations. Use the right words to express ideas. Put words together into sentences. Learn to speak more clearly so others can under stand you. Use gestures, sign language , symbols, or other methods to express yourself (aided communication). These can be used in place of speech or to add to what you are able to say. Some aided communication may involve use of electronic devices. When will therapy start and where will I have t herapy Your health care provider w ill decide when it is best for you to start therapy. Some people start rehabilitation, including speech-language therapy, as soon as they are medically stable. This may be 2448 hours after a stroke. Rehabilitation can take carmen ce in a few different places, based on your needs. It may take place in: The hospital or an in-patient rehabilitation [facility]. An outpatient rehabilitation facility. A long-term care facility. A community rehabilitation clinic. Your home. How can my family and friends support my recove ry Your family and friends can help by: Being open about your problems. Creating or modifying daily routines to make talking and communicating easier. Lowering background noise. Being patient when you are trying to express your thoughts or understand other people. Getting your attention before talking to you. Using short and simple sent ences and giving you extra time to talk or to respond to questions. Talking to you in a normal voice. Keeping eye contact with you during conversatio n. Paying attention to your body language. Using pictures, written words, or symbols to he lp you understand. Helping you to use aided communication. Asking 'yes' or 'no' questions. Praising your speech and progress. Summary Since a stroke results from damage to your brain and nervous system, it can affect your speech and ability to use and understand language Aphasia is a condition that affects your ability to communicate with others. A stroke often causes aphasia because of damage to the left side of the brain. Speech-language therapy is a common treatment a fter a stroke. Your family and friends can help by being open about your problems, giving you time to form words and sentences, and speaking in short, simple sentences. This information is not int ended to replace advice given to you by your health care provider. Make sure you discuss any questions you have with your health care provider. Document Released: 01/08/20 18 Document Revised: 01/07/2018 Document Reviewed: 01/07/2018 [employer] Interactive Patient Education 2019 [facility] [employer]. apixaban (a PIX a ban) Iris What is the most important information I should know about apixaban Apixaban increases your ris k of severe or fatal bleeding, especially if you take certain medicines at the same time (including some zcuu-jpp-nhgdkrh medicines). It is very important to tell your doctor about all medicines you have recently used. Call your doctor at once if you have signs of bleeding such as: swelling, pain, feeling very weak or dizzy, bleeding gums, nosebleeds, heavy menstrual periods or abnormal vaginal bleeding, blood in you r urine, bloody or tarry sto ols, coughing up blood or vomit that looks like coffee grounds, or any bleeding that will not stop. Apixaban can cause a very s erious blood clot around your spinal cord if you undergo a spinal tap or receive spinal anesthesia (epidural), especially if you have a genetic spinal defect, if you have a s elizabet catheter in place, if you have a history of spinal surgery or repeated spinal taps, or if you are also using other drugs that can affect blood clotting. This type of blood clot can lead to long-term or permanent paralysis. Get emergency medical help if you have symptoms of a spinal cord blood clot such as back pain, numbness or muscle weakness in your lower body, or loss of bladder or bowel control. Do not stop taking apixaban unless your doctor tells you to. Stopping suddenly can increase your risk of blood clot or stroke. What is apixaban Apixaban is used to lower t he risk of stroke caused by a blood clot in people with a heart rhythm disorder called atrial fibrillation. Apixaban is also used after hip or knee replacement surgery to prevent a type of blood clot called deep vein thrombosis (DVT), which can lead to blood clots in the lungs (pulmonary embolism). Apixaban is also used to tr eat DVT or pulmonary embolism (PE), and to lower your risk of having a repeat DVT or PE. Apixaban may also be used for purposes not list ed in this medication guide. What should I discuss with my healthcare provid er before taking apixaban You should not take apixaba n if you are allergic to it, or if you have active bleeding from a surgery, injury, or other cause. Apixaban may cause you to b leed more easily, especially if you have a bleeding disorder that is inherited or caused by disease. Tell your doctor if you hav e an artificial heart valve, or if you have ever had: liver or kidney disease; if you are older than 80; or if you weigh less than 132 pounds (60 kilograms ). Apixaban can cause a very s erious blood clot around your spinal cord if you undergo a spinal tap or receive spinal anesthesia (epidural). This type of blood clot could cause long-term paralysis, and may be more likely to occur if: you have a spinal catheter in place or if a catheter has been recently removed; you have a history of spinal surgery or repeate d spinal taps; you have recently had a spinal tap or epidural anesthesia; you are taking an NSAID (no nsteroidal anti-inflammatory drug)--aspirin, ibuprofen (Advil, Motrin), naproxen (Aleve), diclofenac, indomethacin, meloxicam, and others; or you are using other medicines to treat or preve nt blood clots. Taking apixaban may increas e the risk of bleeding while you are or during your delivery. Tell your doctor if you are or plan to become . You should not breast-feed while using this med icine. How should I take apixaban Follow all directions on yo ur prescription label and read all medication guides or instruction sheets. Your doctor may occasionally change your dose. Use the medicine exactly as directed. You may take apixaban with or without food. If you cannot swallow a tab let whole, crush and mix it with water, apple juice, or a spoonful of applesauce. Swallow the mixture right away without chewing. Do not save it for later use. A crushed tablet mixture ma y also be given through a nasogastric (NG) feeding tube. Read and carefully follow any Instructions for Use provided with your medicine. Ask your doctor or pharmacist if you do not understand these instructions. Apixaban can make it easier for you to bleed, even from a minor injury. Seek medical attention if you have bleeding that will not stop. If you need surgery or dent al work, tell the doctor or dentist ahead of time if you have taken apixaban within the past 24 hours. You may need to stop taking apixaban for a short time. Do not stop taking apixaban unless your doctor tells you to. Stopping suddenly can increase your risk of blood clot or stroke. If you stop taking apixaban for any reason, your doctor may prescribe another medication to prevent blood clots until you start taking apixaban again. Store at room temperature away from moisture an d heat. What happens if I miss a dose Take the missed dose on the same day you remember it. Take your next dose at the regular time and stay on your twice-daily schedule. Do not take two doses at one time. Get your prescription refilled before you run o ut of medicine completely. What happens if I overdose Seek emergency medical atte ntion or call the Poison Help line at . What should I avoid while taking apixaban Avoid activities that may i ncrease your risk of bleeding or injury. Use extra care to prevent bleeding while shaving or brushing your teeth. What are the possible side effects of apixaban Get emergency medical help if you have signs of an allergic reaction: hives; chest pain, wheezing, difficult breathing; feeling light-headed; swelling of your face, lips, tongue, or throat. Also seek emergency medical attention if you have symptoms of a spinal blood clot: back pain, numbness or muscle weakness in your lower body, or loss of bladder or bowel control. Call your doctor at once if you have: easy bruising, unusual blee ding (nose, mouth, vagina, or rectum), bleeding from wounds or needle injections, any bleeding that will not stop; heavy menstrual periods; headache, dizziness, weakness, feeling like you might pass out; urine that looks red, pink, or brown; or black or bloody stools, cou ghing up blood or vomit that looks like coffee grounds. This is not a complete list of side effects and others may occur. Call your doctor for medical advice about side effects. You may report side effects to FDA at 1-319-ZHR-7987. What other drugs will affect apixaban Sometimes it is not safe to use certain medications at the same time. Some drugs can affect your blood levels of other drugs you take, which may increase side effects or make the medications less effective. Many other drugs (including some fosn-yvk-sdkalur medicines) can increase your risk of bleeding or blood clots, or your risk of developing blood clots around the brain or spinal cord during a spinal ta p or epidural. It is very im portant to tell your doctor about all medicines you have recently used, especially: any other medicines to treat or prevent blood c lots; a blood thinner such as heparin or warfarin (Co umadin, Jantoven); an antidepressant; or an NSAID (nonsteroidal anti-inflammatory drug) used half-way. This list is not complete a nd many other drugs may affect apixaban. This includes prescription and ejcw-zby-fvfowav medicines, vitamins, and herbal products. Not all possible drug interactions are listed here. Where can I get more information Your pharmacist can provide more information ab out apixaban. Remember, keep this and all other medicines out of the reach of children, never share your medicines with others, and use this medication only for the indication prescribed. Every effort has been made to ensure that the information provided by [employer]. ('[employer]') is accurate, up-to-date, and complete, but no guarantee is made to that effect. Dr whitehead information contained her ein may be time sensitive. [employer] information has been compiled for use by healthcare practitioners and consumers in the [place] and therefore [employer] does not warrant t hat uses outside of the [facility] States are appropriate, unless specifically indicated otherwise. [employer]'s drug information does not endorse drugs, diagnose patients or recommend therapy. [employer] amp;ap[employer];s drug information is an informational resource designed to assist licensed healthcare practitioners in caring for their patients and/or to serve consumers viewing this service as a supplement to, and not a substitute for , the expertise, skill, knowledge and judgment of healthcare practitioners. The absence of a warning for a given drug or drug combination in no way should be construed to ind icate that the drug or drug combination is safe, effective or appropriate for any given patient. [employer] does not assume any responsibility for any aspect of healthcare administered with the aid of infor enid [employer] provides. The information contained herein is not intended to cover all possible uses, directions, precautions, warnings, drug interactions, allergic reactions, or adverse effects. If you have questions about the jerrell gs you are taking, check with your doctor, nurse or pharmacist. Copyright 5835-2358 [employer] Version: 4.01. Revision Date: 03/24/2019. Valuables and Belongings Clothes at Bedside: None Clothes Sent Home: None Electronics at Bedside: Cell phone, Other: Cell phone hospital admitting clerk Electronics Sent Home: Cell phone, Other: cell phone hospital admitting clerk Jewelry at Bedside: None Jewelry Sent Home: None Miscellaneous Items at Bedside: Cosmetic bag, O ther: clear backpack Miscellaneous Items Sent Home: Cosmetic bag Personal Devices at Bedside : Dentures, lower, Dentures, upper, Other: sunglasses Personal Devices Sent Home: Dentures, lower, Dentures, upper, Other: sunglasses I understand that [facility] is not responsible for any personal belongings/effects or valuables that have not been identified on the valuables and belongings list. Any personal effects brought int o the facility and not recor ded on the valuables and belongings form are the responsibility of the patient/family/significant other. I have received the indicated patient education materials/instructions and have verbalized understanding. 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 [address] Patient Discharge Inst[facility] Facility Name: JOSEPH VALDIVIA Current Date: 11/08/2019 10:03:16 : 1940 (EV) [facility] [id number] Patient Address: [address] [place] [address] [place] [address] Patient Primary Care Provider Name: Carol Ruff MD Phone: [phone] Discharge Diagnosis: Acute embolic stroke; Deep v enous thrombosis of left popliteal vein; Elevated troponin; Encephalopathy [facility] nter would like to thank you for allowing us to assist with your healthcare needs. The following includes foll ow-up information and discharge to external facility order information. Follow-up Instructions: With: Address: When: Kristie Carlisle MD [phone] Within 1 to 2 weeks With: Address: When: Wilson Mccall MD [phone] Within 2 to 3 weeks With: Address: When: Carol Ruff MD [phone] Within 2 to 3 weeks Comment: External Discharge Orders: Discharge Lab Orders Electronically Signed by:Aaron Colby am, MD Labs to be ordered Other External Facility Discharge Diet Electronically Signed by:Aaron Miller MD Diet Type Cardiac Order Comment: see speech tx recs Discharge Therapies Electronically Signed by:Aaron Sutton MD Physical Therapy Eval and Treat ST/OT eval and treat Discharge Communication Electronically Signed by :Aaron Miller MD Provide written instructions specific to diagnos is Order Comment: angely edwards to follow at facility Discharge TB Status Electronically Signed by:Aaron Sutton MD The patient is free from signs of active pulmona ry TB Medication Information Provided Separately Clinical Summary [facility] 11/08/2019 Chapito tillman [facility] [address] [place] [address] Transfer of Care Summary Please take with you to your follow-up appointment with your regular physician. Person Information Name:JOSEPH VALDIVIA :1940 79 Ye ars SEX:F (EV) Address and Phone:[address] [place] [address] Language:Tunisian Race: Ethnicity:Non-Hi spanic Visit Information Date of Discharge: LOS:002 10:03 Reason for Visit: Diagnosis:Acute embolic stro ke; Deep venous thrombosis of left popliteal vein; Elevated troponin; Encephalopathy Comment: Providers Primary Care Provider:Carol Ruff [id number] Care Team Providers: Admitting Physician: Aaron Miller MD Attending Physician: Aaron Miller MD Consulting Physician: Kevin Kee MD; Aaron Miller MD MEDICAL INFORMATION Height 165.1 cm Weight 72.9 kg BMI 26.74 kg/m2 Smoking Status Blood Pressure 151 mm Hg / 79 mm Hg Cognitive and Functional Status Allergies NKA The following Tests Were Performed During Your V isit: Laboratory or Other Results This Visit (last charted value for your 11/06/2019 visit) Micro - Misc 11/07/2019 9:28 AM Report: Report CT Head wo Con 11/07/2019 5:[address] Head wo Con: CT Head wo Con US Vasc Dplx Matteo Low Ext Bilat 11/06/2019 10:31 PM US Vasc Dplx Matteo Low Ext Bilat: US Vasc Dplx Ve n Low Ext Bilat WBC 11/07/2019 7:14 AM WBC: 16.8 thousand/uL -- Normal range between ( 4.8 and 10.8 ) RBC 11/07/2019 7:14 AM RBC: 4.09 million/uL -- Normal range between ( 4.00 and 5.40 ) Hgb 11/07/2019 7:14 AM Hgb: 13.1 gm/dL -- Normal range between ( 11.5 and 16.0 ) Hct 11/07/2019 7:14 AM Hct: 37.9 % -- Normal range between ( 37.0 and 47.0 ) Platelets 11/07/2019 7:14 AM Plt: 113 thousand/uL -- Normal range between ( 130 and 400 ) MCV 11/07/2019 7:14 AM MCV: 92.6 fL -- Normal range between ( 80.0 and 100.0 ) MCH 11/07/2019 7:14 AM MCH: 31.9 pg -- Normal range between ( 27.0 and 34.0 ) MCHC 11/07/2019 7:14 AM MCHC: 34.5 gm/dL -- Normal range between ( 32.0 and 37.0 ) RDW 11/07/2019 7:14 AM RDW: 12.9 % -- Normal range between ( 11.5 and 16.0 ) ABS Neut 11/07/2019 7:14 AM ABS Neut: 14.0 thousand/uL -- Normal range betw een ( 1.7 and 8.6 ) ABS Lymph 11/07/2019 7:14 AM ABS Lymph: 0.9 thousand/uL -- Normal range betw een ( 0.5 and 5.9 ) ABS [place] 11/07/2019 7:14 AM ABS [place]: 1.8 thousand/uL -- Normal range betwe en ( 0.0 and 1.6 ) ABS Eos 11/07/2019 7:14 AM ABS Eos: 0.0 thousand/uL -- Normal range betwee n ( 0.0 and 1.0 ) ABS Baso 11/07/2019 7:14 AM ABS Baso: 0.1 thousand/uL -- Normal range betwe en ( 0.0 and 0.3 ) Neuts 11/07/2019 7:14 AM Neuts: 83.6 % -- Normal range between ( 35.0 an d 80.0 ) Lymphs 11/07/2019 7:14 AM Lymphs: 5.1 % -- Normal range between ( 10.0 an d 55.0 ) Monos 11/07/2019 7:14 AM Monos.: 10.8 % -- Normal range between ( 0.0 an d 15.0 ) Eos 11/07/2019 7:14 AM Eos.: 0.1 % -- Normal range between ( 0.0 and 9 .0 ) Baso 11/07/2019 7:14 AM Baso.: 0.4 % -- Normal range between ( 0.0 and 3.0 ) CBC Scan 11/07/2019 7:14 AM CBC Scan: Auto Diff Sodium 11/07/2019 7:14 AM Sodium: 132 mmol/L -- Normal range between ( 13 4 and 144 ) Potassium 11/07/2019 7:14 AM Potassium: 3.7 mmol/L -- Normal range between ( 3.5 and 5.1 ) Chloride 11/07/2019 7:14 AM Chloride: 100 mmol/L -- Normal range between ( 98 and 107 ) CO2 11/07/2019 7:14 AM CO2: 22 mmol/L -- Normal range between ( 23 and 31 ) BUN 11/07/2019 7:14 AM BUN: 11 mg/dL -- Normal range between ( 10 and 20 ) Creatinine 11/07/2019 7:14 AM Creatinine: 0.65 mg/dL -- Normal range between ( 0.57 and 1.11 ) Calcium 11/07/2019 7:14 AM Calcium: 8.2 mg/dL -- Normal range between ( 8. 4 and 10.2 ) Magnesium 11/08/2019 7:15 AM M.0 mg/dL -- Normal range between ( 1.6 and 2.6 ) Anion Gap 11/07/2019 7:14 AM Anion Gap: 14 -- Normal range between ( 5 and 1 5 ) Glucose 11/07/2019 7:14 AM Glucose Level: 111 mg/dL -- Normal range betwee n ( 70 and 99 ) eGFR Non- Am 11/07/2019 7:14 AM eGFR Non- Am: >60 mL/min/1.73m2 eGFR Am 11/07/2019 7:14 AM eGFR Afr/Amer: >60 mL/min/1.73m2 XR Wrist 3+ Views Lt 11/06/2019 6:13 PM XR Wrist 3+ Views Lt: XR Wrist 3+ Views Lt Medication List: amLODIPine (amLODIPine 2.5 mg oral tablet) 1 tab (s) By mouth once daily. apixaban (Eliquis 5 mg oral tablet) 1 tab(s) By mouth twice daily. atorvastatin (atorvastatin 20 mg oral tablet) 1 tab(s) By mouth once daily. calcium-vitamin D (Calcium 600 +D Tab) 1 tab(s) By mouth three times daily. cholecalciferol (Vitamin D3 5,000 Unit oral capsule) 1 cap By mouth once daily. with food. cyanocobalamin (Vitamin B12 50 mcg oral tablet) 1 tab(s) By mouth once daily. 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 (Eng) Admission Orientation (Custom) Prescription List: Continue Home Meds Other Medications amLODIPine (amLODIPine 2.5 mg oral tablet) 1 tab (s) By mouth once daily. Last Dose Given: Next Dose Du e: apixaban (Eliquis 5 mg oral tablet) 1 tab(s) By mouth twice daily. Last Dose Given: Next Dose Du e: atorvastatin (atorvastatin 20 mg oral tablet) 1 tab(s) By mouth once daily. Last Dose Given: Next Dose Du e: calcium-vitamin D (Calcium 600 +D Tab) 1 tab(s) By mouth three times daily. Last Dose Given: Next Dose Du e: cholecalciferol (Vitamin D3 5,000 Unit oral capsule) 1 cap By mouth once daily. with food. Last Dose Given: Next Dose Du e: cyanocobalamin (Vitamin B12 50 mcg oral tablet) 1 tab(s) By mouth once daily. Last Dose Given: Next Dose Du e: Stop Meds cyclobenzaprine (cyclobenzaprine 10 mg oral tabl et) TK 1 T PO TID PRN. SUMAtriptan (SUMAtriptan 25 mg oral tablet) 1 tab(s) By mouth once daily as needed as needed for migraine headache. may repeat dose after 2 hours up to a maximum of 200 mg in 24 hours. Medication Leaflet Names: apixaban Advance Directive: Follow up: With: Address: When: Kristie Carlisle MD [phone] Within 1 to 2 weeks With: Address: When: Wilson Mccall MD [phone] Within 2 to 3 weeks With: Address: When: Carol Ruff MD [phone] Within 2 to 3 weeks No Prescheduled Appointments Found Physician Documentation/Notes: Physical Therapy Initial Patient: JOSEPH VALDIVIA MA 11/07/2019 [facility] Age: 79 years Sex: F : 1 Active Insurance: MEDICARE [id number] [facility] Center Admitting MD: Aaron Miller MD Location: [facility] B3B: B302: 01 PCP: Carol Ruff MD Author: Camden Hensley PT Rehab Potential and Diagnosis Assessment Precautions/Contraindicatio ns: Fall Risk, L wrist pain, L LE DVT cleared to work with PT/OT per Dr Miller. Rehabilitation Potential: Good Treatment Diagnosis for PT: impaired mobility Medical Necessity Justifica tion (PT): Impaired mobility d/t Acute Cerebellar infarcts Narratives Subjective Pt agreeable to PT assessme nt. 'I haven't been up much and this left wrist hurts if I move it at all.' Objective PT consult received, pt rachel rt reviewed. Pt cleared for initial PT evaluation by KIM Ivey. Pt ID'd by name and . PT evaluation completed in room with direct contact from [phone] and [facility] [phone] with session s plit to discuss DVT with RN prior to initiation of mobility and await clarification orders, and total evaluation time of 74 minutes to include extensive chart review to [facility] for clarification of DVT, documentation and care coordination. RN consults Dr Miller and pt is cleared for mobility per Dr Miller 'OK to work with PT/OT with DVE on Eliquis.' PT/OT co-evaluation. Co-evalu ation completed to optimize pt's functional mobility and safety. Pt supine in bed with bed alarm activated with needs in reach and RN aware. Vitals seated: 101 BPM, 96% on room air, 139/82 . Assessment Pt presents with decreased functional strength, balance and cardiovascular endurance which limits bed mobility, transfers and ambulation performance. Pt requires skilled PT to address deficits while at [facility]. Pt will require Post Acute Rehab services and multidisciplinary Therapy to address functional limitations in order to maximize functional limitations once D/C'd from Acute Hospitalizatio n. Pt can reasonably be expe cted to actively participate in, and benefit significantly from, 3 hrs/day intensive rehabilitation therapy program. CEPHALOMETRIC ANALYST appropriate per PT plan of Care. Pt presents to PT as a mode rate complexity evaluation due to at least 2 personal factors and/or comorbidities that impact the plan of care, the clinical presentation is evolving and changing characteri stics as described in assess ment, and examinations of body systems using standardized tests and measures addressed 3 or greater elements involving the body structures and functions, activity limitations , and participation restrictions affecting safe functional mobility. Historical Rehab Info Historic Info (rehab) Primary Diagnosis: Acute Cerebellar infarcts History of Present Illness: Patient is a 79 year old female with PMHx significant for recent CVA 2 weeks ago requiring hospitalization started on Eliquis, HTN and hyperlipidemia who presented to the ED on 11/04/2019 with complaints of increased fatigue and worsening headache, blurry vision beginning the morning of 11/06. Past Medical History - Rehab: CVA, HTN, Hyperli pidemia Date/Onset of Injury/Limitation: 11/06/2019 00: 00 Social History (rehab) Patient's Responsibilities: Driving, Hobbies, Housework, Laundry, Meal preparation, Yardwork Lives In: Single level home Living Situation: Lives alone Preferred Language for Healthcare: Tunisian PLOF (rehab) Additional PLOF Info (Rehab ): Pt had been living alone and has A FWW, but was not able to specifically state functional level Objective Assessments Functional Mobility Bed Mobility: Minimal assistance General Transfers: Minimal assistance Ambulation (PT): Minimal assistance Ambulation Details: Attempt ed FWW, but L wrist pain negates proper use. Used HEATING REPAIR TECHNICIAN with R hand. Cognition/Vision/Perception Cognitive Status: Able to follow 1-2 step comma nds LE Status LE Sensory Status Right: Intact LE Sensory Status: Intact Additional Lower Extremity Status Info: Bilateral ankle proprioception intact LE General ROM Lower Extremity ROM: Full AROM bilateral hips, knees and ankles LE MMT Right Right Hip Flexion Strength: 4+ Right Hip Extension Strength: 4+ Right Hip Abduction Strength: 4+ Right Knee Flexion Strength: 4+ Right Knee Extension Strength: 4+ Right Ankle Dorsiflexion Strength: 4+ LE MMT Left Left Hip Flexion Strength: 4+ Left Hip Extension Strength: 4+ Left Hip Abduction Strength: 4+ Left Knee Flexion Strength: 4+ Left Knee Extension Strength: 4+ Left Ankle Dorsiflexion Strength: 4+ Treatment Treatment PT TX Plan/Goals Est w Patient/Caregiver: Yes PT Treatment Frequency: Other: 5-6x/wk PT Treatment Duration: Length of stay PT Intervention(s): Patient education, Safety education, Therapeutic activity, Therapeutic exercise, Transfer training Plan for Next Session Bed mobility, Transfers, Functional mobility, G ait and Therapeutic Exercise. Therapy Discharge Recommendations PT DC Recommendations: Post Acute Rehab X 3 hrs/day multidisciplinary Therapy to address functional mobility impairment PT Senior Care Goal Goal: Pt demo bed mob, func tional transfer and gait of 80' with LRAD or HEATING REPAIR TECHNICIAN and SBA by 12/05/2019 00:00. Status: Active PT Short Term Goal Goal: Pt demo bed mob with CGA by 11/21/2019 00 :00. Status: Active Goal: Pt demo functional tr ansfers with CGA by 11/21/2019 00:00. Status: Active Goal: Pt demo gait of 50' w ith LRAD or HEATING REPAIR TECHNICIAN and CGA by 11/21/2019 00:00. Status: Active Education PT Education Provided For: Activity precautions, Assistive devices, Functional mobility training, Positioning, Posture, Safety, Therapy plan of care Individuals Taught by PT: Patient Response to Teaching: Communicated ethanin g, Needs reinforcement Preferences to Learning: Any/all Readiness to Learn: Accepting Barriers to Learning: None evident Pain Acceptable Pain Intensity: 3 Pain OT Additional Info - Pain: Pt wearing L wrist splint upon arrival of PT. Pt has significant L wrist pain with movement or attempted wt bearing. Attempted use of FWW, but pain prevents and transitioned to HEATING REPAIR TECHNICIAN with R hand for gait d/t L wrist pain. L wri st X ray on 11/07 w/ no Fx. This note contains the most recent documentation, from this therapist, over the last 12 hours. It may contain documentation from multiple sessions documented independently. Electronically Signed By: Camden Hensley PT On 11/07/19 11:47 Co Signature By: Modify Signature By: Consultation Patient: JOSEPH VALDIVIA MRN: [id number] 11/06/2019 [facility] Age: 79 years Sex: F : 1940 Active Ins urance: MEDICARE [id number] [facility] Admitting MD: Aaron Miller MD Location: [facility] EDIP: 52: 01 PCP: Carol Ruff MD Author: Gaurav Rod DO Chief Complaint Confusion History of Present Illness Patient is a 79-year-old fe male history of stroke about 1 week ago seen in this facility embolic eval did not reveal any etiology but CVA appeared to be cardioembolic and Eliquis was started reasonably she has a history of DVT an d screening tests were negative at the time she has a known PFO consideration was given the paradoxical embolus as it is now Patient was reportedly at h ome preparing meals and became confused family brought her and MRI showing multiple cerebral ischemic infarcts in different vascular distributions new from last study patient has no complaints of focal weakness changing vision she says she is had some difficulty concentrating and with word finding no numbness is reported no recent falls trauma headaches fevers rashes Review of Systems 14 item review of systems otherwise negative Objective Vitals and Measurements T: 36.7 C (Oral) TMIN: 36.6 C (Oral) TMAX: 37 C (Oral) HR: 91 RR: 16 BP: 148/90 SpO2: 98% Oxygen Method: Room air WT: 72.9 kg Physical Exam MS awake aware alert and responsive appropriate 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 recent remote poor attention span and concentration somewhat impai red names repeats fund of knowledge normal No involuntary movements or tremor. F-N intact, no dysmetria no drift no hand rolling asymmetry. Motor: 5/5 proximal and distal upper and lower ext. DTR: 1/4 throughout prox and distal uppers and lowers Sensory : pin to [address] no sensory level intact vibratory at ankles compared to sternum. CN tested serially: PERRLA EOMI facial intact V123 to pin, face symmetric, tongue midline palate symmetric, shoulder shrug 5/5. Hearing intact to finger rub. cabezas are full carotids no bruit no bruit at confucianist heart no abn regular rate Gait and station not tested due to safety TMs clear panophthalmoscope exam no papilledema Gen no distress alert Heent oropharynx clear mucous membranes moist neck supple no JVD CV RRR pulm no distress resp, normal excursion abd soft NT no guarding ext no cyanosis clubbing Lab Results Common Labs - All Encounters, All Results, Last 1 month Last Month Lipid Profile: Basic Metabolic Panel: Hematology: Triglyceride: ------ Sodium: 137 (11/04/19) Hgb: 13.1 (11/04/19) Cholesterol Total: ------ Potassium: 3.7 (11/05/19) HgbA1C: 5.3 (10/25/19) HDL Cholesterol: ------ Phosphorus: ------ WBC: 11.2 (11/04/19) LDL Ca (10/25/19) M.6 (11/05/19) Plt: 154 (11/04/19) BUN: 9 (11/04/19) INR: 1.76 (11/04/19) Creatinine: 0.66 (11/04/19) Creatinine Clearance: ------ Additional - Last Month %HDL: 26.3 (10/25/19) A/G Ratio: 1.3 (11/04/19) ABS Baso: 0.1 (11/04/19) ABS Eos: 0.1 (11/04/19) ABS Lymph: 1.1 (11/04/19) ABS [place]: 1.0 (11/04/19) ABS Neut: 8.8 (11/04/19) Albumin: 3.5 (11/04/19) Alkphos: 110 (11/04/19) ALT: 22 (11/04/19) Anion Gap: 15 (11/04/19) AST: 36 (11/04/19) Baso.: 1.0 (11/04/19) Bili Total: 0.6 (11/04/19) Calcium: 8.8 (11/04/19) CBC Scan: Auto Diff (11/04/19) Chloride: 101 (11/04/19) Chol/Tri.62 (10/25/19) Cholesterol: 198 (10/25/19) Cholesterol/HDL: 4 (10/25/19) CO2: 25 (11/04/19) eGFR Afr/Amer: >60 (11/04/19) eGFR Non- Am: >60 (11/04/19) Eos.: 1.1 (11/04/19) Estimated Average Glucose: 105 (10/25/19) Globulin: 2.7 (11/04/19) Glucose (POCT) Automated: 87 (11/04/19) Glucose Level: 96 (11/04/19) Hct: 38.8 (11/04/19) HDL: 52 (10/25/19) LDL/HDL: 2 (10/25/19) Lymphs: 9.7 (11/04/19) MCH: 31.6 (11/04/19) MCHC: 33.7 (11/04/19) MCV: 93.9 (11/04/19) Monos.: 9.3 (11/04/19) Neuts: 78.9 (11/04/19) Protein, Total: 6.2 (11/04/19) PT: 20.1 (11/04/19) PTT: 31.8 (11/04/19) RBC: 4.14 (11/04/19) RDW: 13.0 (11/04/19) Triglycerides: 122 (10/25/19) Troponin I: 0.72 (11/05/19) TSH: 3.569 (10/25/19) VLDL: 24 (10/25/19) Diagnostic Results Radiology - Full Interpretation, Last 24 hrs Name: JOSEPH VALDIVIA Account: [id number] : 1940 Result Date: 11/05/19 16:23 Verified By: Otoniel Martin MD at 11/05/19 18 :21 Report : MR Brain wo Con EXAM: MR Brain wo Con CLINICAL HISTORY: Worsening headache, light sensitivity, memory difficulties, Stroke COMPARISON: CT head 11/04/2019 TECHNIQUE: Multiplanar and multisequence MRI of the brain was performed without IV gadolinium contrast. FINDINGS: Mild T2/FLAIR hyperintense foci are seen within the periventricular white matter most suggestive of chronic microvascular ischemic changes. The brain demonstrates no e vidence of intracranial hemorrhage, mass, mass effect, hydrocephalus, or extra-axial fluid collections. No abnormal shift of the midline structures. Several multiple small main ly punctate foci of restricted diffusion are seen within both cerebellar hemispheres infratentorially and supratentorially about both cerebral hemispheres at the frontal, par ietal and bilateral occipita l lobes, most consistent with multiple small acute infarcts. The largest area of involvement about the mesial left temporal lobe measures approximately 1.1 x 1.7 cm on image 17 series 304. The rest of t he punctate foci are mainly subcentimeter. There is a conglomerate of cortical based curvilinear restricted diffusion by the left occipital lobe consistent with additional ac [place] infarct. The distributio n and multiplicity of abnormalities suggests a potential embolic etiology. Correlate clinically. Normal connelly-white matter differentiation is not ed. The normal expected flow-voids are seen. No MR evidence of segmental infarct. The basal cisterns are patent. The sella/pituitary area appears unremarkable. The mastoids appear clear b y MRI. Right frontal and anterior ethmoid mucosal thickening and opacities are seen. Moderate right maxillary sinus opacities. The marrow signal intensity is unremarkable. IMPRESSION: 1. Several multiple supra a nd infratentorial small mainly punctate areas of restricted diffusion most consistent WITH MULTIPLE ACUTE INFARCTS are seen within the cerebellar hemispheres and as well as b oth cerebral lobes as detail ed above. The largest of these foci measures up to 1.1 x 1.7 cm about the left mesial temporal lobe. The rest of the punctate foci are mainly subcentimeter. Given the multipl icity and distribution of ac [place] infarcts, this suggests a potential embolic etiology. 2. No MR evidence of intracranial hemorrhage or extra-axial hematomas. 3. Minimal chronic microvascular ischemic mccrary es. 4. No midline shift. No mass effect. 11/05/19 1 8:10 +++++++++++++++++++++++++++++++++++++++++++++++ ++++++++ Result Date: 11/04/19 21:35 Verified By: Acacia Haddad MD at 11/04/19 21:20 Report : CT Angio Chest w Con [facility] Final Report Clinical History and Study Details: elevated tr op, SOB Contrast Information: isovue 370 75cc's TECHNIQUE: Clinical Event : ELEVATED TROP, SOB HX STROKE Thin section axial images f rom thoracic inlet to upper abdomen during injection of intravenous contrast. 3D reformatted MIP images obtained. FINDINGS: Comparison made to previous study dated 10/24/19 Evaluation of pulmonary art eries and distal branches show no evidence of pulmonary embolus. The thoracic aorta shows no dissection or aneurysm. 1.4 cm nodule in superior segment of LLL with central nilo cification. Micronodular inf iltrates in RUL and RLL adjacent to major fissure. No axillary or mediastinal adenopathy seen. Visualized portion of upper abdomen show no significant abnormalities. IMPRESSION: No PE. No aortic dissection. Micronodular infiltrates in RUL and RLL. Follow up. Probable granuloma or hamartoma in LLL. Report Dictated by Radiologist: ACACIA HADDAD M.D. Diplomate [place] [employer] [facility] Requisition#: [id number] Electronically Signed by FOUZIA HADDAD 2019-11-04 21:20:48.33Transcribed by: [email or web address] 11/04/19 21:20 +++++++++++++++++++++++++++++++++++++++++++++++ ++++++++ Result Date: 11/04/19 20:07 Verified By: Nelson Hurt MD at 11/04/19 20:16 Report : CT Code Stroke Head 2/Bleed EXAM: CT Code Stroke Head 2/Bleed CLINICAL HISTORY: MUNOZ, recent cva, vision change s . COMPARISON: 10/25/2019 TECHNIQUE: Transaxial image s were obtained from the skull base to the vertex without contrast. All CT scans at this hospital employ automatic and/or manual dose reduction techniques to keep radiation dose as low as reasonably achievable. FINDINGS: There is no evidence of acu te intracranial hemorrhage, midline shift, abnormal extra-axial fluid collection, or mass lesion. The ventricles and sulci are normal for patient's age. The connelly-white matter differentiation is preserved. Mild mucosal thickening of the right maxillary sinus with sclerotic appearance of the right maxillary sinus napier. Mild mucosal thickening the ethmoid air cells. Near-complete opacification the right f rontal sinus with thinning o f the right lateral wall. Mastoid air cells appear well aerated. Calvarium is grossly intact. IMPRESSION: No radiographic acute intra cranial abnormality. Possible mucocele within the right frontal sinus. 11/04/19 20:14 +++++++++++++++++++++++++++++++++++++++++++++++ ++++++++ Assessment/Plan Elevated troponin R79.89 Embolic stroke I63.9 New acute showered embolic infarcts clearly cardioembolic this is A. fib or thrombus we discussed CVA risk factor management the patient is already maximally treated with Eliquis she started about a week ago Transesophageal echo was re commended to rule out possibility of structural cause patient is already had a very recent echocardiogram showing a PFO Screen for DVT for paradoxical embolus with kno wn PFO High intensity statin blood pressure goal less than 140/90 Long-term monitor recommended eval for A. fib Outpatient follow-up with neurology with SARAH st udy CVA order set Headache in front of head R51 History of CVA (cerebrovascular accident) Z86.7 3 Hypertension I10 Neurologic problem [id number] Popliteal DVT (deep venous thrombosis) I82.439 Vision changes H53.9 Orders: atorvastatin, 40 mg, PO, Tab, qHS Routine, Star t: 11/05/19 21:00:00 [facility] Problem List/Past Medical History Ongoing Acute embolic stroke Acute superficial venous thrombosis of left low er extremity Deep venous thrombosis of left popliteal vein Elevated troponin Stroke Historical No qualifying data Procedure/Surgical History Bladder operation Carcinoma Hysterectomy Knee replacement Plantar fascia Rectal fistula Sclerotherapy of varicose vein Medications Inpatient atorvastatin, 40 mg= 1 Tab, PO, qHS Effer-K, 20 mEq= 1 Tab, PO, Per Parameter, PRN Effer-K, 40 mEq= 2 Tab, PO, Per Parameter, PRN Eliquis, 5 mg= 1 Tab, PO, BID Fioricet 325/50/40, 1 Tab, PO, q4hr, PRN hydrALAZINE, 10 mg= 0.5 mL, IV Push, q20min, OH N KCL 10 mEq/100 mL IVPB, 10 mEq= 100 mL, IV, Per Parameter, PRN magnesium oxide, 400 mg= 1 Tab, PO, Per Paramet er, PRN magnesium sulfate 2gm/50 mL SW, 2 gm= 50 mL, IV , Per Parameter, PRN magnesium sulfate 4gm/100 mL SW, 4 gm= 100 mL, IV, Per Parameter, PRN saline flush 0.9%, 10 mL, IV Push, q12hr saline flush 0.9%, 10 mL, IV Push, Per Paramete r, PRN Home amLODIPine 2.5 mg oral tablet, 2.5 mg= 1 Tab, P O, qDay atorvastatin 20 mg oral tablet, 20 mg= 1 Tab, P O, qDay Calcium 600 +D Tab, 1 Tab, PO, TID cyclobenzaprine 10 mg oral tablet, TK 1 T PO TI D PRN Eliquis 5 mg oral tablet, 5 mg= 1 Tab, PO, BID SUMAtriptan 25 mg oral tabl et, 25 mg= 1 Tab, PO, qDay, PRN, may repeat dose after 2 hours up to a maximum of 200 mg in 24 hours Vitamin B12 50 mcg oral tablet, 50 mcg= 1 Tab, PO, qDay Vitamin D3 5,000 Unit oral capsule, 5000 Unit= 1 Cap, PO, qDay, with food Allergies NKA Reaction: None Documented Social History Alcohol Current, Wine, 1-2 times per month, 11/04/2019 Home/Environment Congregation restrictions/conc erns: None. Lives with Alone. Living situation: Home/Independent., 11/04/2019 Substance Abuse Denies, 11/04/2019 Tobacco Former smoker, quit more th an 30 days ago, Stopped age [age] Years., 11/04/2019 Electronically Signed By: Gaurav Rod DO On 11/05/19 18:52 Co Signature By: Modify Signature By: Discharge Instructions [facility] 11/06/19 [facility] Document [address] [facility] [place] [address] JOSEPH VALDIVIA MOR :1940 (EV) Visit Date:11/05/2019 Inpatient Discharge Instructions Your Care Team Admitting Physician - Aaron Miller MD, Mustafa MD Attending Physician - Aaron Miller MD, Rebecca J DO Khan, Mustafa MD Consulting Physician - Tito Saunders MD, Bashar MD Salvatore, David DO Lifetime Physician(PCP) - Carol Ruff MD Your Diagnosis Elevated troponin Embolic stroke Headache in front of head History of CVA (cerebrovascular accident) Hypertension Popliteal DVT (deep venous thrombosis) Vision changes Discharge Vitals Temperature 36.7 C (Oral) T MIN 36.6 C (Oral) TMAX 37 C (Oral) Heart Rate 90 Respiratory Rate 16 Blood Pressure 148/80 Height 165 cm Weight 72.9 kg BMI 26.78 What to do next You May Need to Schedule the Following Appointme nts Follow Up with Wilson Mccall MD When Within 1 week Where: [phone] Follow Up with Carol Ruff MD When Within 1 to 3 days Where: [phone] We encourage you to sign up for My Portal, where you can easily access your medical records and test results from all [facility]. Please sign up in one of the following ways: 1. Email invitation. You may have a message in your inbox. Please click the link provided to create an account. OR 2. Self-enrollment. Please g o to [email or web address] and fill out your information. Well send you a verification code to complete the process. OR 3. Request an invitation at your next clinic or hospital visit. Please ask a staff member and they will be happy to assist you. Medications What How Much When Instructions Next Dose Unchanged amLODIPine (amLOD IPine 2.5 mg oral tablet) 1 tab(s) By mouth Once daily tomorrow AM Unchanged apixaban (Eliquis 5 mg oral tablet) 1 tab(s) By mouth Twice daily Tonight Unchanged atorvastatin (alice rvastatin 20 mg oral tablet) 1 tab(s) By mouth Once daily Tomorrow AM Unchanged calcium-vitamin D (Calcium 600 +D Tab) 1 tab(s) By mouth Three times daily Tonight Unchanged cholecalciferol ( Vitamin D3 5,000 Unit oral capsule) 1 cap By mouth Once daily with food Tomorrow AM Unchanged cyanocobalamin (V itamin B12 50 mcg oral tablet) 1 tab(s) By mouth Once daily Tomorrow AM Unchanged cyclobenzaprine ( cyclobenzaprine 10 mg oral tablet) TK 1 T PO TID PRN needed Unchanged SUMAtriptan (PRERNA triptan 25 mg oral tablet) 1 tab(s) By mouth Once daily as needed for as needed for migraine headache may repeat dose after 2 hours up to a maximum of 200 mg in 24 hours As needed Discharge Orders Discharge Orders: Discharge Today, Home or self care Order Comments: if mri brain negative for acute findings Discharge Activity As tolerated Discharge Diet Regular diet Education Materials Stroke Prevention Some medical conditions and lifestyle choices can lead to a higher risk for a stroke. You can help to prevent a stroke by making nutrition, lifestyle, and other changes. What nutrition changes can be made Eat healthy foods. Choose foods that are high in fiber. These incl ude: Fresh fruits. Fresh vegetables. Whole grains. Eat at least 5 or more serv ings of fruits and vegetables each day. Try to fill half of your plate at each meal with fruits and vegetables. Choose lean protein foods. These include: Lowfat (lean) cuts of meat. Chicken without skin. Fish. Tofu. Beans. Nuts. Eat low-fat dairy products. Avoid foods that: Are high in salt (sodium). Have saturated fat. Have trans fat. Have cholesterol. Are processed. Are premade. Follow eating guidelines as told by your doctor . These may include: Reducing how many calories you eat and drink ea ch day. Limiting how much salt you eat or drink each da y to 1,500 milligrams (mg). Using only healthy fats for cooking. These incl ude: [place] oil. Canola oil. Loving oil. Counting how many carbohydrates you eat and dri nk each day. What lifestyle changes can be made Try to stay at a healthy we ight. Talk to your doctor about what a good weight is for you. Get at least 30 minutes of moderate physical activity at least 5 days a week. This can include: Fast walking. Biking. Swimming. Do not use any products tarik t have nicotine or tobacco. This includes cigarettes and e-cigarettes. If you need help quitting, ask your doctor. Avoid being around tobacco smoke in general. Limit how much alcohol you drink to no more than 1 drink a day for non women and 2 drinks a day for men. One drink equals 12 oz of beer, 5 oz of wine, or 1 oz of hard liquor. Do not use drugs. Avoid taking control pills. Talk to your doctor about the risks of taking control pills if: You are over 35 years old. You smoke. You get migraines. You have had a blood clot. What other changes can be made Manage your cholesterol. It is important to eat a healthy diet. If your cholesterol cannot be managed through your diet, you may also need to take medicines. Take medicines as told by your doctor. Manage your diabetes. It is important to eat a healthy diet and to ex ercise regularly. If your blood sugar cannot be managed through diet and exercise, you may need to take medicines. Take medicines as told by your doctor. Control your high blood pressure (hypertension) . Try to keep your blood pres sure below 130/80. This can help lower your risk of stroke. It is important to eat a healthy diet and to ex ercise regularly. If your blood pressure mckayla ot be managed through diet and exercise, you may need to take medicines. Take medicines as told by your doctor. Ask your doctor if you should check your blood pressure at home. Have your blood pressure ch ecked every year. Do this even if your blood pressure is normal. Talk to your doctor about g etting checked for a sleep disorder. Signs of this can include: Snoring a lot. Feeling very tired. Take aobr-ixh-jtgrysu and p rescription medicines only as told by your doctor. These may include aspirin or blood thinners (antiplatelets or anticoagulants). Make sure that any other medical conditions you have are managed. Where to find more information [place] St[employer] Association: www.strokeassociat ion.org National Stroke Association: www.stroke.org Get help right away if: You have any symptoms of st roke. 'BE FAST' is an easy way to remember the main warning signs: B - Balance. Signs are dizziness, sudde n trouble walking, or loss of balance. E - Eyes. Signs are trouble seeing or a sudden change in how you see. F - Face. Signs are sudden weakness or loss of feeling of the face, or the face or eyelid drooping on one side. A - Arms. Signs are weaknes s or loss of feeling in an arm. This happens suddenly and usually on one side of the body. S - Speech. Signs are sudde n trouble speaking, slurred speech, or trouble understanding what people say. T - Time. Time to call [facility] services. Write down what time symptoms started. You have other signs of stroke, such as: A sudden, very bad headache with no known cause . Feeling sick to your stomach (nausea). Throwing up (vomiting). Jerky movements you cannot control (seizure). These symptoms may represen t a serious problem that is an emergency. Do not wait to see if the symptoms will go away. Get medical help right away. Call your local emergency services (911 in the [place] Do not drive yourself to the hospital. Summary You can prevent a stroke by eating healthy, exercising, not smoking, drinking less alcohol, and treating other health problems, such as diabetes, high blood pressure, or high cholesterol. Do not use any products tarik t contain nicotine or tobacco, such as cigarettes and e-cigarettes. Get help right away if you have any signs or sy mptoms of a stroke. This information is not int ended to replace advice given to you by your health care provider. Make sure you discuss any questions you have with your health care provider. Document Released: 03/21/20 13 Document Revised: 12/22/2017 Document Reviewed: 12/22/2017 [employer] Interactive Patient Education 2019 [facility] [employer]. Hand Washing Germs such as bacteria, vir uses, and parasites are found everywhere. They can be in the air and water. They can also be on surfaces like food, door handles, and your skin. Every day, your hands touch g erms. Many of these germs ca n make you and your family sick. Washing your hands is one of the best ways to lower your risk of getting and sharing germs. When should I wash my hands You should wash your hands whenever you think they are dirty. You should also wash your hands: Before: Visiting a baby or anyone w ith a weakened disease-fighting system (immunesystem). Putting in and taking out contact lenses. After: Using the bathroom or helping someone else use the bathroom. Working or playing outside. Touching or taking out the garbage. Touching anything dirty around your home. Sneezing, coughing, or blowing your nose. Using a phone, including your mobile phone. Touching an animal, animal food, animal poop, o r its toys or leash. Touching money. Using household rn pediatric icu or poisonous chemicals . Handling dirty clothes, bedding, or rags. Using public transportation. Going shopping, especially if you use a [employer] g cart or basket. Shaking hands. Handling livestock, such as cows or sheep. Before and after: Preparing food. Eating. Visiting or taking care of someone who is sick. This includes touching used tissues, toys, and clothes. Changing a bandage (dressing). Taking care of an injury or wound. Giving or taking medicine. Preparing a bottle for a baby. Feeding a baby or young child. Changing a diaper. What is the right way to wash my hands 1. Wet your hands with clean, running water. Turn off the water or move your hands out of the running water. 2. Apply liquid soap or bar soap to your hands. 3. Rub your hands together quickly to create lathe r. 4. Keep rubbing your hands tog ether for at least 20 seconds. Thoroughly scrub all parts of your hands. This includes scrubbing under your fingernails and between your fingers. 5. Rinse your hands with clean , running water. Do this until all the soap is gone. 6. Dry your hands using an air dryer or a clean paper or cloth towel, or let your hands air-dry. Do not use your clothing or a dirty towel to dry your hands. If you are in a public restroom, use your towel : To turn off the water faucet. To open the bathroom door. How can I clean my hands if I do not have soap and water If soap and clean water are not available, use a hand-washing wipe, spray, or gel (hand documentation liaison). Use one that contains at least 60% alcohol. If you are handling food, gels are not recommended as a replacement for hand washing with soap and water. To use these products, follow the directions on the product, and: Apply enough product to cover your hands. Make sure you wipe, rub, or spray the product so that it reaches every part of your hands and wrists. Include the backs of your hands, between your fingers, and under your fingernails. Rub the product onto your hands until it dries. Summary Every day, your hands touch germs. Many of these germs can make you and your family sick. Washing your hands is one o f the best ways to lower your risk of getting and sharing germs. If soap and clean water are not available, use a hand-washing wipe, spray, or gel. This information is not int ended to replace advice given to you by your health care provider. Make sure you discuss any questions you have with your health care provider. Document Released: 09/02/20 09 Document Revised: 06/29/2018 Document Reviewed: 06/29/2018 [employer] Interactive Patient Education 2019 [facility] [employer] [facility]. Smoking Tobacco Information, Adult Smoking tobacco can be harm ful to your health. Tobacco contains a poisonous (toxic), colorless chemical called nicotine. Nicotine is addictive. It changes the brain and can make it hard to stop smoking . Tobacco also has other tox ic chemicals that can hurt your body and raise your risk of many cancers. How can smoking tobacco affect me Smoking tobacco puts you at risk for: Cancer. Smoking is most com monly associated with lung cancer, but can also lead to cancer in other parts of the body. Chronic obstructive pulmona ry disease (COPD). This is a long-term lung condition that makes it hard to breathe. It also gets worse over time. High blood pressure (hypertension), heart disea se, stroke, or heart attack. Lung infections, such as pneumonia. Cataracts. This is when the lenses in the eyes become clouded. Digestive problems. This ma y include peptic ulcers, heartburn, and gastroesophageal reflux disease (GERD). Oral health problems, such as gum disease and t ooth loss. Loss of taste and smell. Smoking can affect your appearance by causing: Wrinkles. Yellow or stained teeth, fingers, and fingernai ls. Smoking tobacco can also affect your social lif e, because: It may be challenging to fi nd places to smoke when away from home. Many workplaces, restaurants, hotels, and public places are tobacco-free. Smoking is expensive. This is due to the cost of tobacco and the long-term costs of treating health problems from smoking. Secondhand smoke may affect those around you. Secondhand smoke can cause lung cancer, breathing problems, and heart disease. Children of smokers have a higher risk for: Sudden syndrome (SIDS). Ear infections. Lung infections. If you currently smoke tobacco, quitting now ca n help you: Lead a longer and healthier life. Look, smell, breathe, and feel better over time . Save money. Protect others from the harms of secondhand smo ke. What actions can I take to prevent health probl ems Quit smoking Do not start smoking. Quit if you already do. Make a plan to quit smoking and commit to it. Look for programs to help you and ask your health care provider for recommendations and ideas. Set a date and write down all the reasons you w ant to quit. Let your friends and family know you are quitting so they can help and support you. Consider finding friends who also want to quit. It can be easier to quit with someone else, so that you can support each other. Talk with your health care provider about using nicotine replacement medicines to help you quit, such as gum, lozenges, patches, sprays, or pills. Do not replace cigarette sm oking with electronic cigarettes, which are commonly called e-cigarettes. The safety of e-cigarettes is not known, and some may contain harmful chemicals. If you try to quit but retu rn to smoking, stay positive. It is common to slip up when you first quit, so take it one day at a time. Be prepared for cravings. W hen you feel the urge to smoke, chew gum or suck on hard candy. Lifestyle Stay busy and take care of your body. Drink enough fluid to keep your urine pale yell ow. Get plenty of exercise and eat a healthy diet. This can help prevent weight gain after quitting. Monitor your eating habits. Quitting smoking can cause you to have a larger appetite than when you smoke. Find ways to relax. Go out with friends or family to a movie or a restaurant where people do not smoke. Ask your health care provid er about having regular tests (screenings) to check for cancer. This may include blood tests, imaging tests, and other tests. Find ways to manage your stress, such as medita tion, yoga, or exercise. Where to find support To get support to quit smoking, consider: Asking your health care provider for more infor mation and resources. Taking classes to learn more about quitting smo barry. Looking for local organizations that offer reso urces about quitting smoking. Joining a support group for people who want to quit smoking in your local community. Calling the smokefree.gov counselor rosario saleem: 9-677-Vauj-Now ( ) Where to find more information You may find more information about quitting sm oking from: HelpGuide.org: www.helpguide.org Smokefree.gov: smokefree.gov [place] Lung Association: www.lung.org Contact a health care provider if you: Have problems breathing. Notice that your lips, nose, or fingers turn bl ue. Have chest pain. Are coughing up blood. Feel faint or you pass out. Have other health changes that cause you to wor ry. Summary Smoking tobacco can negativ kenji affect your health, the health of those around you, your finances, and your social life. Do not start smoking. Quit if you already do. If you need help quitting, ask your health care provider. Think about joining a suppo rt group for people who want to quit smoking in your local community. There are many effective programs that will help you to quit this behavior. This information is not int ended to replace advice given to you by your health care provider. Make sure you discuss any questions you have with your health care provider. Document Released: 10/05/19 18 Document Revised: 11/09/2018 Document Reviewed: 10/05/2017 [employer] Interactive Patient Education 2019 [facility] [employer]. Fall Prevention in the Home, Adult Falls can cause injuries an d can affect people from all age groups. There are many simple things that you can do to make your home safe and to help prevent falls. Ask for help when making these changes, if needed. What actions can I take to prevent falls General instructions Use good lighting in all rooms. Replace any lig ht bulbs that burn out. Turn on lights if it is dark. Use night-lights. Place frequently used items in dteb-ow-wnimx places. Lower the shelves around your home if necessary. Set up furniture so that th ere are clear paths around it. Avoid moving your furniture around. Remove throw rugs and other tripping hazards fr om the floor. Avoid walking on wet floors. Fix any uneven floor surfaces. Add color or contrast paint or tape to grab bars and handrails in your home. Place contrasting color strips on the first and last steps of stairways. When you use a stepladder, make sure that it is completely opened and that the sides are firmly locked. Have someone hold the ladder while you are using it. Do not climb a closed stepladder. Be aware of any and all pets. What can I do in the bathroom Keep the floor dry. Immedia tely clean up any water that spills onto the floor. Remove soap buildup in the tub or shower on a r egular basis. Use non-skid mats or decals on the floor of the tub or shower. Attach bath mats securely with double-sided, no n-slip rug tape. If you need to sit down whi le you are in the shower, use a plastic, non-slip stool. Install grab bars by the to ilet and in the tub and shower. Do not use towel bars as grab bars. What can I do in the bedroom Make sure that a bedside light is easy to reach . Do not use oversized bedding that drapes onto t he floor. Have a firm chair that has side arms to use for getting dressed. What can I do in the kitchen Clean up any spills right away. If you need to reach for so mething above you, use a sturdy step stool that has a grab bar. Keep electrical cables out of the way. Do not use floor costa rican or wax that makes floors slippery. If you must use wax, make sure that it is non-skid floor wax. What can I do in the stairways Do not leave any items on the stairs. Make sure that you have a l ight switch at the top of the stairs and the bottom of the stairs. Have them installed if you do not have them. Make sure that there are munoz ndrails on both sides of the stairs. Fix handrails that are broken or loose. Make sure that handrails are as long as the stairways. Install non-slip stair treads on all stairs in your home. Avoid having throw rugs at the top or bottom of stairways, or secure the rugs with carpet tape to prevent them from moving. Choose a carpet design that does not hide the e dge of steps on the stairway. Check any carpeting to make sure that it is firmly attached to the stairs. Fix any carpet that is loose or worn. What can I do on the outside of my home Use bright outdoor lighting. Regularly repair the edges of walkways and driv eways and fix any cracks. Remove high doorway thresholds. Trim any shrubbery on the main path into your h ome. Regularly check that handra ils are securely fastened and in good repair. Both sides of any steps should have handrails. Install guardrails along the edges of any raise d decks or porches. Clear walkways of debris and clutter, including tools and rocks. Have leaves, snow, and ice cleared regularly. Use sand or salt on walkways during winter abi hs. In the garage, clean up any spills right away, including grease or oil spills. What other actions can I take Wear closed-toe shoes that fit well and support your feet. Wear shoes that have rubber soles or low heels. Use mobility aids as needed, such as canes, wal kers, scooters, and crutches. Review your medicines with your health care provider. Some medicines can cause dizziness or changes in blood pressure, which increase your risk of falling. Talk with your health care provider about other ways that you can decrease your risk of falls. This may include working with a physical therapist or review trainer to improve your strength, balance, and endurance. Where to find more information Centers for Disease Control and Prevention, JJ MICHAEL: https://www.cdc.gov [place] [employer]: https://rq0psxc.ni a.nih.gov Contact a health care provider if: You are afraid of falling at home. You feel weak, drowsy, or dizzy at home. You fall at home. Summary There are many simple thing s that you can do to make your home safe and to help prevent falls. Ways to make your home safe include removing tripping hazards and installing grab bars in the bathroom. Ask for help when making these changes in your home. This information is not int ended to replace advice given to you by your health care provider. Make sure you discuss any questions you have with your health care provider. Document Released: 09/10/20 Document Revised: 05/05/2018 Document Reviewed: 05/05/2018 [employer] Interactive Patient Education 2019 [facility] [employer] 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 Any personal effects brought into the facility and not record ed on the valuables and belongings form are the responsibility of the patient/family/significant other.I have received the indicated patient education materials/instructions and medication list and have verbalized understa nding. 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 [facility] Electronically Signed By: Kristie Carlisle MD On 11/05/19 12:19 Co Signature By: Modify Signature By: Consultation 11/05/2019 Chapito goode DATE OF CONSULTATION: 11/05/[address] [facility] REASON FOR CONSULTATION: Prior multiple stroke, cardioembolic hypertension. REQUESTING PHYSICIAN: Dr. Tito Saunders. [facility] DEAN: Dr. Shiva Echeverria. HISTORY OF PRESENT ILLNESS: I am seeing Mrs. Valdivia upon the request of Dr. Saunders. 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 The patient's AMBER showed small PFO, no other abnorma lities. The patient was at home, was found to have some headaches. Her son who is visiting from [place] was concerned and brought her to the Emergency Room. The patient d enies any chest discomfort o r heaviness or breathing difficulty. She was noticed by the nurses that she has significant memory lapses, although she was aware and oriented to time and place. REVIEW OF SYSTEMS: Review of all other 14 systems are unchanged from last evaluation of 10/25/2019. PAST MEDICAL HISTORY: 1. Hypertension. 2. Hyperlipidemia. 3. Migraine headaches. 4. Cerebrovascular accident, recent. PAST SURGICAL HISTORY: Multiple surgeries includ in. Total right knee replacement. 2. Hernia repair. 3. Hysterectomy. ALLERGIES: She has no known allergies to medicat ions. MEDICATIONS AT HOME: Reviewe d and reconciled including apixaban 5 mg b.i.d., atorvastatin-amlodipine 10 mg-2.5, sumatriptan 25 mg daily, cholecalciferol, calcium with vitamin D, cyanocobalamin, vitamin B12. ALLERGIES: No known allergies to medicines. FAMILY HISTORY: No history o f premature coronary artery disease, sudden cardiac . SOCIAL HISTORY: She lives in [facility]. Her son was visiting from [place], [place]. She quit smoking in the . PHYSICAL EXAMINATION: GENERAL: Elderly, in no apparent respiratory dis tress. VITAL SIGNS: Temperature of 36.7 degrees centigrade, heart rate of 90, blood pressure of 148/80. HEENT: Normocephalic, atraumatic. NECK: No thyromegaly. CARDIOVASCULAR: Carotid upst roke normal. Distal pulse symmetrical. The heart is regular with a normal S1, normally split S2. There is an S4 at the apex and apical systolic murmur of I/. LUNGS: Clear to auscultation. ABDOMEN: Benign. No masses. EXTREMITIES: No edema, cyanosis or clubbing. NEUROLOGICAL: Deferred to neurology. DIAGNOSTIC DATA: The ECG upo n presentation 11/04/2019 showed sinus rhythm, no significant ST elevation or depression, left atrial fascicular block was seen. The recent echocardiogram as mentioned showed no vegetations, there is sm all PFO. CT angio of the chest showed no pulmonary embolism, showed micronodular infiltrates of the right upper lung and right lower lung, probably a granuloma or hamartoma in the left lower lung seen. The code neuro upon presenta tion showed to have no significant abnormalities except for mucocele of the right frontal sinus. LABORATORY TESTS: Showed whi te cells of 11,200, hemoglobin 13.1. Sodium and potassium are normal. BUN and creatinine were normal. Troponin mildly elevated at 0.9 and 0.87. ASSESSMENT AND PLAN: 1. Elevated troponin, nonspe cific, possibly related to recent thromboembolic stroke. 2. Acute cerebrovascular accident with multiple locations, probably embolic. 3. PFO present. 4. Possible embolic event wi th anticoagulation of Eliquis, AFib has not been evaluated. 5. Hypertension, reasonably well controlled. 6. Headaches, multifactorial including migraine. 7. Elevated troponin, is at the same level as prior admission, unchanged. No ischemic changes on EKG and no anginal symptoms. RECOMMENDATIONS: 1. Continue current care wit h anticoagulation, specifically Eliquis. Keep LDL below 70 with atorvastatin. 2. Continue hypertension medication with amlodip ine. 3. Memory issues being addressed with neurology. From cardiac point of view, the patient can be discharged and follow up with Dr. Echeverria for outpatient Holter monitor for assessment of AFib. Dictated by: KRISTIE CARLISLE MD /BM T : 11/05/2019 12:52:49 /NTS Doc: [id number] Job: [id number] cc: Electronically Signed By: Kristie Carlisle MD On 11/05/19 13:22 Co Signature By: Modify Signature By: ED Physician Notes 11/05/2019 Chapitogertrudis courtney Patient: JOSEPH VALDIVIA ( EV) [facility] Age: 79 years Sex: F : 1940 Associated Diagnoses: None Author: Pierre Ceballos DO Basic Information Time seen: Provider Initial Contact Time 11/04/2019 20:46. History of Present Illness The patient presents with headache. This is a 79 year female wit h a history of stroke, presenting to the emergency department for evaluation of a worsening headache. Her son says that she has had a mild headache, which worsened today. She notes light sensitivity, he r son note that she slept most of the day, and upon waking was having difficulty using her phone and remote. Her son also notes that she has had some mild memory difficulties this past week, which also worsened tonight. She was seen here about 1 week ago for a stroke and was seen by neurology. She was put on Eliquis. She denies numbness or tingling to her legs. She denies c hest pain or shortness of br eath. No nausea, vomiting, or diarrhea. Her last dose of Eliquis was at 1820 this evening. Stated that she did go to a chiropractor but had no working on her neck. Leg swelling no chest pain no shortness of breath.. Review of Systems ROS Info: Greater than 10 re view of systems reviewed and otherwise negative unless as stated in HPI. Health Status Allergies: Allergic Reactions (Selected) NKA. Medications: Include Documented Meds (Selected) Prescriptions Prescribed Eliquis 5 mg oral tablet: Se e Instructions, 2 Tab PO BID x 7 days then 1 PO BID thereafter, 70 Tab, 0 Refill(s) Outpatient ST: See Instructi ons, ST eval and tx for aphasia, cognition 3 x per week for 4 weeks, 1 Each, 0 Refill(s) Documented Medications Documented Calcium 600 +D Tab: 1 Tab, PO, TID, 90 Tab, 0 Re fill(s) SUMAtriptan 25 mg oral table t: 1 Tab, PO, qDay, may repeat dose after 2 hours up to a maximum of 200 mg in 24 hours, PRN: as needed for migraine headache, 18 Tab, 0 Refill(s) Vitamin B12 50 mcg oral tablet: 1 Tab, PO, qDay, 30 Tab, 0 Refill(s) Vitamin D3 5,000 Unit oral c apsule: 1 Cap, PO, qDay, with food, 100 Cap, 0 Refill(s) amLODIPine 2.5 mg oral tablet: 1 Tab, PO, qDay, 30 Tab, 0 Refill(s) atorvastatin 20 mg oral tablet: 1 Tab, PO, qDay, 30 Tab, 0 Refill(s) cyclobenzaprine 10 mg oral tablet: TK 1 T PO TID PRN. Past Medical/ Family/ Social History Medical history Reviewed as documented in chart. Medical history: All Problems Stroke / [id number] / Confirmed Acute embolic stroke / [id number] / Confirmed Elevated troponin / [id number] / Confirmed Acute superficial venous thr ombosis of left lower extremity / [id number] / Confirmed Deep venous thrombosis of left popliteal vein / [id number] / Confirmed. Surgical history: Reviewed as documented in ney t. Surgical history: Bladder operation ([id number]). Plantar fascia ([id number]). Comments: 10/25/2019 2:14 Reuben Lomas RN Traveler Left foot Sclerotherapy of varicose vein ([id number]). Comments: 10/25/2019 2:15 Reuben Lomas RN Traveler Bilateral Knee replacement ([id number]). 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 Hysterectomy ([id number]). Carcinoma ([id number]).. Social history: Alcohol use: Occasionally, Tobacco use: Denies, former smoker, Drug use: Denies. Physical Examination Vital Signs Vital-Signs 11/04/2019 20:17 MST Pain Intensity 6 Pain Scale Used Numeric Rating Scale Temperature PO 36.6 deg C Normal Heart Rate 79 bpm Normal NIBP Systolic 159 mm Hg H NIBP Diastolic 88 mm Hg Normal Resp Rate (Monitor) 16 Breaths/Min Normal SPO2 97 % Normal . Oxygen saturation. General: Alert, no acute distress. Skin: Warm, dry, intact, no pallor, no rash. Head: Normocephalic, atraumatic. Neck: Supple, trachea midline, no tenderness. Eye: Normal conjunctiva. Ears, nose, mouth and throat : Oral mucosa moist, no pharyngeal erythema or exudate, No pain over the temporal arteries. Cardiovascular: Regular rate and rhythm, No murm ur. Respiratory: Lungs are clear to auscultation, respirations are non-labored, breath sounds are equal. Chest wall: No tenderness. Back: Nontender, Normal range of motion. Musculoskeletal: Normal ROM, no tenderness, no s welling. Gastrointestinal: Soft, Nontender, Non distended . Genitourinary Neurological: Alert and orie nted to person, place, time, and situation, No focal neurological deficit observed, normal motor observed, normal speech observed, Patient's face symmetrical. Extrao cular muscles are intact. To ngue is midline. Normal shoulder shrug. Negative pronator drift. Sensation grossly intact. Muscle strength 5 out of 5.. Lymphatics Psychiatric: Cooperative. Medical Decision Making Differential Diagnosis: Migr colt, tension headache, cerebral vascular accident, dehydration. Electrocardiogram: Time 10/2019 20:55:00, rate 78, normal sinus rhythm, No ST-T changes, normal OH and QRS intervals, EP Interp, Patient heart rate is 78 a OH 161 QRS 85 QTC of [address] elevations.. Results review: Lab results : Laboratory 11/04/2019 20:14 MST WBC 11.2 thousand/uL H RBC 4.14 million/uL Normal Hgb 13.1 gm/dL Normal Hct 38.8 % Normal MCV 93.9 fL Normal MCH 31.6 pg Normal MCHC 33.7 gm/dL Normal RDW 13.0 % Normal Plt 154 thousand/uL Normal Neuts 78.9 % Normal Lymphs 9.7 % L Monos. 9.3 % Normal Eos. 1.1 % Normal Baso. 1.0 % Normal ABS Neut 8.8 thousand/uL H ABS Lymph 1.1 thousand/uL Normal ABS [place] 1.0 thousand/uL Normal ABS Eos 0.1 thousand/uL Normal ABS Baso 0.1 thousand/uL Normal CBC Scan Auto Diff INR 1.76 NA PT 20.1 sec H PTT 31.8 sec Normal Sodium 137 mmol/L Normal Potassium 3.7 mmol/L Normal Chloride 101 mmol/L Normal CO2 25 mmol/L Normal Anion Gap 15 Normal Glucose Level 96 mg/dL Normal BUN 9 mg/dL L Creatinine 0.66 mg/dL Normal eGFR Non- Am >60 mL/min/1.73m2 NA eGFR Afr/Amer >60 mL/min/1.73m2 NA Calcium 8.8 mg/dL Normal Protein, Total 6.2 gm/dL L Albumin 3.5 gm/dL Normal Globulin 2.7 gm/dL Normal A/G Ratio 1.3 Normal Bili Total 0.6 mg/dL Normal ALT 22 Units/L Normal AST 36 Units/L H Alkphos 110 Units/L Normal Troponin I 0.90 ng/mL CRIT 11/04/2019 19:59 MST Glucose (POCT) Automated 87 mg/dL Normal . Chest X-Ray: Time reported 0 11/04/2019 23:49:00, no acute disease process, interpretation by Emergency Physician. Radiology results: Radiologist's interpretation Name: JOSEPH VALDIVIA Account: [id number] : 1940 Result Date: 11/04/19 20:07 Verified By: Nelson Hurt MD at 11/04/19 20:16 Report : CT Code Stroke Head 2/Bleed IMPRESSION:No radiographic a cute intracranial abnormality. Possible mucocele within the right frontal sinus. 11/04/19 20:14 ++++++++++++++++++++++++++++++++++++++++++++++++ +++++++ , Radiologist's interpretation Name: JOSEPH VALDIVIA Account: [id number] : 1940 Result Date: 11/04/19 21:35 Verified By: Acacia Haddad MD at 11/04/19 21:20 Report : CT Angio Chest w Con IMPRESSION:No PE. No aortic dissection.Micronodular infiltrates in RUL and RLL. Follow up.Probable granuloma or hamartoma in LLL.Report Dictated by Radiologist:ACACIA HADDAD M.D.Diplomate [place] [employer] o f RadiologyNexxRad Requisiti on#: [id number] Signed by ACACIA HADDAD 2019-11-04 21:20:48.33Transcribed by: [email or web address] 11/04/19 21:20 ++++++++++++++++++++++++++++++++++++++++++++++++ +++++++ Result Date: 11/04/19 20:07 Verified By: Nelson Hurt MD at 11/04/19 20:16 Report : CT Code Stroke Head 2/Bleed IMPRESSION:No radiographic a cute intracranial abnormality. Possible mucocele within the right frontal sinus. 11/04/19 20:14 ++++++++++++++++++++++++++++++++++++++++++++++++ +++++++ . Notes: Patient with a dull h eadache is not worse headache of life she has had some memory changes she has no pain over her temporal arteries normal neuro exam there is no focal abnormalities CT is negat gisella she had a recent CTA of the head and neck as well as her recent MRI she has an elevated troponin I did touch base with Dr. Pepe Olivas who is her service station equipment mechanic states that troponin is at her baseline no acute changes was seen. T roponin is mildly elevated she has no shortness of breath no chest pain a CT was done yesterday of the chest just rule out underlying PE that may cause a troponin leak there is no acute PE. She is on El iquis there is no signs of any head bleed patient will be admitted for continued evaluation she may need more help at home. Will have neurology consult again I did talk to Dr. Saba about in no acute change at this time.. Impression and Plan Headache Memory changes Elevated troponin Recent CVA Plan Counseled: Patient, Cierra g diagnosis, Regarding diagnostic results, Regarding treatment plan, Patient indicated understanding of instructions. Notes: Fei Boucher scri be, am scribing for, and in the presence of, Pierre Ceballos DO. This chart is electronically signed by myself, yayo Baeza. I, Pierre Ceballos DO, pe rsonally performed the services described in this documentation, as scribed by Fei Mason in my presence, and it is both accurate and complete , Patient was informed of t he reason for admission. Questions were answered. She verbalizes an understanding.. Electronically Signed By: Pierre Ceballos DO On 11/05/19 18:05 Co Signature By: Modify Signature By: Fei Mason On 11/04/19 21:08 Discharge Instructions [facility] 10/26/19 [facility] Document [address] [facility] [place] [address] SHEA JOSEPH MOR :1940 (EV) Visit Date:10/24/2019 Inpatient Discharge Instructions Your Care Team Admitting Physician - Rneata Vera MD, Steven P DO Nissen, Dustin MD Attending Physician - Renata Vera MD, Steven P DO Nissen, Dustin MD Wolff, Andrea MD Consulting Physician - Jg Frye MD, Ramprakash MD Kirvaitis, Kristie Hughes MD, MD, Georges Y MD Pandey, Hemant K MD Salvatore, David DO Lifetime Physician(PCP) - Carol Ruff MD Your Diagnosis Acute embolic stroke, Stroke Acute superficial venous thrombosis of left low er extremity Deep venous thrombosis of left popliteal vein Dysarthria Elevated troponin HLD (hyperlipidemia) HTN (hypertension) Discharge Vitals Temperature 36.5 C (Oral) T MIN 36.4 C (Oral) TMAX 36.8 C (Oral) Heart Rate 82 Respiratory Rate 18 Blood Pressure 132/76 What to do next You May Need to Schedule the Following Appointm ents Follow Up with Kristie Carlisle MD When Within As soon as possible Why: cardiology f/u for loop rec order Call for follow up appointment Take all medications as prescribed Where: [id number] Follow Up with Wilson Mccall MD When Within 2 to 3 weeks Why: Call for follow up appointment Take all medicat ions as prescribed Where: [id number] Follow Up with Carol Ruff MD When Within 1 to 3 days Where: [phone] We encourage you to sign up for My Portal, where you can easily access your medical records and test results from all [facility]. Please sign up in one of the following ways: 1. Email invitation. You sindy mahan have a message in your inbox. Please click the link provided to create an account. OR 2. Self-enrollment. Please go to [email or web address] and fill out your information. Well send you a verification code to complete the process. OR 3. Request an invitation at your next clinic or hospital visit. Please ask a staff member and they will be happy to assist you. Medications What How Much When Instructions Next Dose New apixaban (Eliquis 5 mg oral tablet) See instructions 2 Tab PO BID x 7 days then 1 PO BID thereafter Pickup at [id number] New TNF Medication (Outpati ent ST) See instructions ST eval and tx for aphasia, cognition 3 x per week for 4 weeks Printed Prescription Unchanged amLODIPine (amLOD IPine 2.5 mg oral tablet) 1 tab(s) By mouth Once daily Unchanged atorvastatin (alice rvastatin 20 mg oral tablet) 1 tab(s) By mouth Once daily Unchanged calcium-vitamin D (Calcium 600 +D Tab) 1 tab(s) By mouth Three times daily Unchanged cholecalciferol ( Vitamin D3 5,000 Unit oral capsule) 1 cap By mouth Once daily with food Unchanged cyanocobalamin (V itamin B12 50 mcg oral tablet) 1 tab(s) By mouth Once daily Unchanged cyclobenzaprine ( cyclobenzaprine 10 mg oral tablet) TK 1 T PO TID PRN Unchanged SUMAtriptan (PRERNA triptan 25 mg oral tablet) 1 tab(s) By mouth Once daily as needed for as needed for migraine headache may repeat dose after 2 hours up to a maximum of 200 mg in 24 hours Pharmacy Information [facility] #[id number] : [address], [place] [phone] What How Much When Comments Stop Taking biotin By mouth Once daily Stop Taking glucosamine (gl ucosamine hydrochloride 1500 mg oral tablet) 1 tab(s) By mouth Once daily Discharge Orders Discharge Orders: Discharge Now, Home or self care Discharge Activity As tolerated Discharge Diet Regular diet Education Materials Hemorrhagic Stroke A hemorrhagic stroke is the sudden of brain tissue that occurs when a blood vessel in the brain leaks or bursts (ruptures). When this happens, certain areas of the brain do not get enough oxygen, and blood builds up and pre sses on certain areas of the brain (hemorrhage). Lack of oxygen and pressure from hemorrhaging can lead to brain damage. There are two major types o f hemorrhagic stroke, depending on where bleeding occurs. If bleeding occurs within the brain tissue, the condition is called an intracerebral hemorrhage. If bleeding occurs in the area between the brai n and the membrane that covers the brain (subarachnoid space), the condition is called a subarachnoid hemorrhage. Hemorrhagic stroke is a medical emergency. It can cause temp orary or permanent brain damage and loss of brai n function. What are the causes This condition is caused by a blood vessel leaking or rupturing, which may be the result of: Part of a weakened blood ve ssel wall bulging or ballooning out (cerebral aneurysm). A hardened, thin blood vess el cracking open and allowing blood to leak out. Blood vessels may become hardened and thin due to plaque buildup. Tangled blood vessels in the brain (brain arter iovenous malformation). Protein buildup on artery napier in the brain (a myloid angiopathy). Inflamed blood vessels (vasculitis). A tumor in the brain. High blood pressure (hypertension). What increases the risk The following factors may make you more likely to develop this condition: Hypertension. Having abnormal blood vessels present since bir (congenital abnormality). Bleeding disorders, such as hemophilia, sickle cell disease, or liver disease. The blood becoming too thin while taking blood thinners (anticoagulants). Aging. Moderate or heavy alcohol use. Using drugs, such as cocaine or methamphetamine s. What are the signs or symptoms Symptoms of this condition usually appear sudde nly, and may include: Weakness or numbness of the face, arm, or leg, especially on one side of the body. Confusion. Difficulty speaking (aphasia) or understanding speech. Difficulty seeing out of one or both eyes. Difficulty walking or moving the arms or legs. Dizziness. Loss of balance or coordination. Seizures. A severe headache with no k nown cause. This headache may feel like the worst headache ever experienced. How is this diagnosed This condition may be diagnosed based on: Your symptoms. Your medical history. A physical exam. Tests, including: Blood tests. CT scan. MRI. Angiogram. In this procedur e, dye is injected through a long, thin tube (catheter) into one of your arteries. Then, X-rays are taken. The X-rays will show whether there is a blockage or a problem in a blood vessel. How is this treated This condition is a medical emergency that must be treated in a hospital immediately. The goals of treatment are to stop bleeding, reduce pressure on the brain, and relieve symptoms. Treatment may include: Medicines that: Lower blood pressure (antihypertensives). Relieve pain (analgesics). Relieve nausea or vomiting. Stop or prevent seizures (anticonvulsants). Relieve fever. Prevent blood vessels in the brain from spasmin g in response to bleeding. Control bleeding in the brain. Assisted breathing (ventila tion). This involves using a machine to help you breathe (ventilator). Receiving donated blood pro ducts through an IV tube (transfusion). You will receive cells that help your blood clot. Placement of a tube (shunt) in the brain to rel ieve pressure. Physical, speech, or occupational therapy. Surgery to stop bleeding, remove a blood clot o r tumor, or reduce pressure. Treatment depends on the cause, severity, and d uration of symptoms. Medicines and changes to yo ur diet may be used to help treat and manage risk factors for stroke, such as diabetes and high blood pressure. Follow these instructions at home: Activity Return to your normal activ ities as told by your health care provider. Ask your health care provider what activities are safe for you. Rest. Rest helps the brain to heal. Make sure y ou: Get plenty of sleep. [facility] Keep a consistent sleep pacheco edule. Try to go to sleep and wake up at about the same time every day. Avoid activities that cause physical or mental stress. General instructions Take obiz-awd-snawpvt and p rescription medicines only as told by your health care provider. Do not drive or operate Recombine machinery until your health care provider approves. Limit alcohol intake to no more than 1 drink per day for non women and 2 drinks per day for men. One drink equals 12 oz of beer, 5 oz of wine, or 1 oz of hard liquor. Use a walker or a cane as told by your health c are provider. Keep all follow-up visits a s told by your health care provider, including visits with therapists. This is important. How is this prevented Your risk of stroke can be decreased by working with your health care provider to treat high blood pressure, high cholesterol, diabetes, heart disease, and obesity. Your risk of stroke can also be decr eased by quitting smoking, limiting alcohol, and staying physically active. If you take the blood thinn er warfarin, have your bloodwork monitored frequently by your health care provider. Contact a health care provider if: You develop any of the following symptoms: Headaches that keep coming back (chronic headac hes). Nausea. Vision problems. Increased sensitivity to noise or light. Depression or mood swings. Anxiety or irritability. Memory problems. Difficulty concentrating or paying attention. Sleep problems. Feeling tired all of the time. Recovery from hemorrhagic s troke varies widely. Talk with your health care provider about what to expect during your recovery. Get help right away if: You develop symptoms of a hemorrhagic stroke. You have a partial or total loss of consciousne ss. You are taking blood thinne rs and you fall or you experience minor injury (trauma) to the head. You have a bleeding disorde r and you fall or you experience minor trauma to the head. These symptoms may represen t a serious problem that is an emergency. Do not wait to see if the symptoms will go away. Get medical help right away. Call your local emergency services (911 in the [place] Do not drive yourself to the hospital. This information is not int ended to replace advice given to you by your health care provider. Make sure you discuss any questions you have with your health care provider. Document Released: 03/10/20 11 Document Revised: 02/25/2017 Document Reviewed: 09/13/2016 [employer] Interactive Patient Education 2019 [facility] [employer]. Stroke Prevention Some medical conditions and lifestyle choices can lead to a higher risk for a stroke. You can help to prevent a stroke by making nutrition, lifestyle, and other changes. What nutrition changes can be made Eat healthy foods. Choose foods that are high in fiber. These incl ude: Fresh fruits. Fresh vegetables. Whole grains. Eat at least 5 or more serv ings of fruits and vegetables each day. Try to fill half of your plate at each meal with fruits and vegetables. Choose lean protein foods. These include: Lowfat (lean) cuts of meat. Chicken without skin. Fish. Tofu. Beans. Nuts. Eat low-fat dairy products. Avoid foods that: Are high in salt (sodium). Have saturated fat. Have trans fat. Have cholesterol. Are processed. Are premade. Follow eating guidelines as told by your doctor . These may include: Reducing how many calories you eat and drink ea ch day. Limiting how much salt you eat or drink each da y to 1,500 milligrams (mg). Using only healthy fats for cooking. These incl ude: [place] oil. Canola oil. Loving oil. Counting how many carbohydrates you eat and dri nk each day. What lifestyle changes can be made Try to stay at a healthy we ight. Talk to your doctor about what a good weight is for you. Get at least 30 minutes of moderate physical activity at least 5 days a week. This can include: Fast walking. Biking. Swimming. Do not use any products tarik t have nicotine or tobacco. This includes cigarettes and e-cigarettes. If you need help quitting, ask your doctor. Avoid being around tobacco smoke in general. Limit how much alcohol you drink to no more than 1 drink a day for non women and 2 drinks a day for men. One drink equals 12 oz of beer, 5 oz of wine, or 1 oz of hard liquor. Do not use drugs. Avoid taking control pills. Talk to your doctor about the risks of taking control pills if: You are over 35 years old. You smoke. You get migraines. You have had a blood clot. What other changes can be made Manage your cholesterol. It is important to eat a healthy diet. If your cholesterol cannot be managed through your diet, you may also need to take medicines. Take medicines as told by your doctor. Manage your diabetes. It is important to eat a healthy diet and to ex ercise regularly. If your blood sugar cannot be managed through diet and exercise, you may need to take medicines. Take medicines as told by your doctor. Control your high blood pressure (hypertension) . Try to keep your blood pres sure below 130/80. This can help lower your risk of stroke. It is important to eat a healthy diet and to ex ercise regularly. If your blood pressure mckayla ot be managed through diet and exercise, you may need to take medicines. Take medicines as told by your doctor. Ask your doctor if you should check your blood pressure at home. Have your blood pressure ch ecked every year. Do this even if your blood pressure is normal. Talk to your doctor about g etting checked for a sleep disorder. Signs of this can include: Snoring a lot. Feeling very tired. Take japo-tdu-oudkqpb and p rescription medicines only as told by your doctor. These may include aspirin or blood thinners (antiplatelets or anticoagulants). Make sure that any other medical conditions you have are managed. Where to find more information [place] [employer]: www.strokeassociat ion.org National Stroke Association: www.stroke.org Get help right away if: You have any symptoms of st roke. 'BE FAST' is an easy way to remember the main warning signs: B - Balance. Signs are dizziness, sudde n trouble walking, or loss of balance. E - Eyes. Signs are trouble seeing or a sudden change in how you see. F - Face. Signs are sudden weakness or loss of feeling of the face, or the face or eyelid drooping on one side. A - Arms. Signs are weaknes s or loss of feeling in an arm. This happens suddenly and usually on one side of the body. S - Speech. Signs are sudde n trouble speaking, slurred speech, or trouble understanding what people say. T - Time. Time to call [facility] services. Write down what time symptoms started. You have other signs of stroke, such as: A sudden, very bad headache with no known cause . Feeling sick to your stomach (nausea). Throwing up (vomiting). Jerky movements you cannot control (seizure). These symptoms may represen t a serious problem that is an emergency. Do not wait to see if the symptoms will go away. Get medical help right away. Call your local emergency services (911 in the [place] Do not drive yourself to the hospital. Summary You can prevent a stroke by eating healthy, exercising, not smoking, drinking less alcohol, and treating other health problems, such as diabetes, high blood pressure, or high cholesterol. Do not use any products tarik t contain nicotine or tobacco, such as cigarettes and e-cigarettes. Get help right away if you have any signs or sy mptoms of a stroke. This information is not int ended to replace advice given to you by your health care provider. Make sure you discuss any questions you have with your health care provider. Document Released: 03/21/20 13 Document Revised: 12/22/2017 Document Reviewed: 12/22/2017 [employer] Interactive Patient Education 2019 [facility] [employer]. Fall Prevention in the Home, Adult Falls can cause injuries. T hey can happen to people of all ages. There are many things you can do to make your home safe and to help prevent falls. Ask for help when making these changes, if needed. What actions can I take to prevent falls General Instructions Use good lighting in all rooms. Replace any lig ht bulbs that burn out. Turn on the lights when you go into a dark area . Use night-lights. Keep items that you use oft en in ikbc-dt-gbieo places. Lower the shelves around your home if necessary. Set up your furniture so yo u have a clear path. Avoid moving your furniture around. Do not have throw rugs and other things on the floor that can make you trip. Avoid walking on wet floors. If any of your floors are uneven, fix them. Add color or contrast paint or tape to clearly pepe and help you see: Any grab bars or handrails. First and last steps of stairways. Where the edge of each step is. If you use a stepladder: Make sure that it is fully opened. Do not climb a closed stepladder. Make sure that both sides of the stepladder are locked into place. Ask someone to hold the stepladder for you whil e you use it. If there are any pets around you, be aware of w here they are. What can I do in the bathroom Keep the floor dry. Clean u p any water that spills onto the floor as soon as it happens. Remove soap buildup in the tub or shower regula rly. Use non-skid mats or decals on the floor of the tub or shower. Attach bath mats securely with double-sided, no n-slip rug tape. If you need to sit down in the shower, use a pl astic, non-slip stool. Install grab bars by the to ilet and in the tub and shower. Do not use towel bars as grab bars. What can I do in the bedroom Make sure that you have a light by your bed tarik t is easy to reach. Do not use any sheets or bl ankets that are too big for your bed. They should not hang down onto the floor. Have a firm chair that has side arms. You can use this for support while you get dressed. What can I do in the kitchen Clean up any spills right away. If you need to reach someth ing above you, use a strong step stool that has a grab bar. Keep electrical cords out of the way. Do not use floor costa rican or wax that makes floors slippery. If you must use wax, use non-skid floor wax. What can I do with my stairs Do not leave any items on the stairs. Make sure that you have a l ight switch at the top of the stairs and the bottom of the stairs. If you do not have them, ask someone to add them for you. Make sure that there are munoz ndrails on both sides of the stairs, and use them. Fix handrails that are broken or loose. Make sure that handrails are as long as the stairways. Install non-slip stair treads on all stairs in your home. Avoid having throw rugs at the top or bottom of the stairs. If you do have throw rugs, attach them to the floor with carpet tape. Choose a carpet that does not hide the edge of the steps on the stairway. Check any carpeting to make sure that it is firmly attached to the stairs. Fix any carpet that is loose or worn. What can I do on the outside of my home Use bright outdoor lighting. Regularly fix the edges of walkways and drivewa ys and fix any cracks. Remove anything that might make you trip as you walk through a door, such as a raised step or threshold. Trim any bushes or trees on the path to your ho me. Regularly check to see if h andrails are loose or broken. Make sure that both sides of any steps have handrails. Install guardrails along the edges of any raise d decks and porches. Clear walking paths of anyt aaliyah that might make someone trip, such as tools or rocks. Have any leaves, snow, or ice cleared regularly . Use sand or salt on walking paths during winter . Clean up any spills in your garage right away. This includes grease or oil spills. What other actions can I take Wear shoes that: Have a low heel. Do not wear high heels. Have rubber bottoms. Are comfortable and fit you well. Are closed at the toe. Do not wear open-toe sandoval dals. Use tools that help you mov e around (mobility aids) if they are needed. These include: Canes. Walkers. Scooters. Crutches. Review your medicines with your doctor. Some medicines can make you feel dizzy. This can increase your chance of falling. Ask your doctor what other things you can do to help prevent falls. Where to find more information Centers for Disease Control and Prevention, JJ MICHAEL: https://cdc.gov [employer] [place] [employer]: https://px9xxmw.ni a.nih.gov Contact a doctor if: You are afraid of falling at home. You feel weak, drowsy, or dizzy at home. You fall at home. Summary There are many simple thing s that you can do to make your home safe and to help prevent falls. Ways to make your home safe include removing tripping hazards and installing grab bars in the bathroom. Ask for help when making these changes in your home. This information is not int ended to replace advice given to you by your health care provider. Make sure you discuss any questions you have with your health care provider. Document Released: 07/17/20 10 Document Revised: 05/05/2018 Document Reviewed: 05/05/2018 [employer] Interactive Patient Education 2019 [facility] [employer]. Transesophageal Echocardiogram Transesophageal echocardiog tanmay (AMBER) is a test that uses sound waves (echocardiogram) to produce very clear, detailed images of the heart. AMBER is done by passing a flexible tube down the esophagus. The heart is located in front of the esophagus. AMBER may be done: To check how well your heart valves are working . To check for any abnormal growth or tumor To look for blood clots To check for infection of the lining of the hea rt (endocarditis). To evaluate the dividing wa ll (septum) of the heart and check for a hole that did not close after (patent foramen ovale or atrial septal defect). To help diagnose a tear in the wall of the blood vessels (aortic dissection). To look at the heart shape, size, and function. Any changes can be associated with certain conditions, including heart failure, aneurysm, and coronary heart disease, CAD. During cardiac valve surger y. This allows the surgeon to assess the valve repair before closing the chest. During a variety of other c ardiac procedures to guide positioning of catheters. To monitor your heart's response to IV fluids o r medicine. AMBER is usually not a painfu l procedure. You may feel the probe press against the back of the throat. The probe does not enter the trachea and does not affect your breathing. Tell a health care provider about: Any allergies you have. All medicines you are takin g, including vitamins, herbs, eye drops, creams, and ugau-kmr-qpkjkge medicines. Any problems you or family members have had wit h anesthetic medicines. Any blood disorders you have. Any surgeries you have had. Any medical conditions you have. Any swallowing difficulties. Whether you have or have munoz d a blockage of the esophagus (esophageal obstruction). Whether you are or may be . What are the risks Generally, this is a safe procedure. However, p roblems may occur, including: Damage to other structures or organs. A tear of the esophagus (esophageal rupture). Irregular heart beat (arrhythmia). Hoarse voice or difficulty swallowing. Bleeding (hemorrhage). What happens before the procedure Staying hydrated Follow instructions from [facility] health care provider about hydration, which may include: Up to 3 hours before the pr ocedure you may continue to drink clear liquids, such as water, clear fruit juice, black coffee, and plain tea. Eating and drinking Follow instructions from [facility] health care provider about eating and drinking, which may include: 8 hours before the procedur e stop eating heavy meals or foods such as meat, fried foods, or fatty foods. 6 hours before the procedur e stop eating light meals or foods, such as toast or cereal. 6 hours before the procedure stop drinking milk or drinks that contain milk. 3 hours before the procedure stop drinking emmanuel r liquids. General instructions You will need to remove any dentures or dental retainers. Plan to have someone take you home from the hos pital or clinic. Plan to have a responsible adult care for you for at least 24 hours after you leave the hospital or clinic. This is important. Ask your health care provider about: Changing or stopping your n ormal medicines. This is important if you take diabetes medicines or blood thinners. Taking otpp-unv-zeetres medicines, vitamins, he rbs, and supplements. Taking medicines such as as pirin and ibuprofen. These medicines can thin your blood. Do not take these medicines unless your health care provider tells you to take them. What happens during the procedure To reduce your risk of infection: Your health care team will wash or sanitize the ir hands. Hair may be removed from the surgical area. Your skin will be washed with soap. An IV will be inserted into one of your veins. You will be given one or both of the following: A medicine to help you relax (sedative). A medicine to be sprayed or gargled in order to numb the back of your throat (local anesthetic). Your blood pressure, heart rate, and breathing (vital signs) will be monitored during the procedure. You may be asked to lay on your left side. A bite block will be placed in your mouth to keep you from biting the tube during the procedure. The tip of the AMBER probe wi ll be placed into the back of your mouth. You will be asked to swallow. This helps to pass the tip of the probe into the esophagus. Once the tip of the probe i s in the correct area, your health care provider will take pictures of the heart. The probe and bite block will be removed when t he procedure is done. The procedure may vary among health care provid ers and hospitals What happens after the procedure Your blood pressure, heart rate, breathing rate, and blood oxygen level will be monitored until the medicines you were given have worn off. When you first wake up, you r throat may feel slightly sore and will probably still feel numb. This will improve slowly over time. You will not be allowed to eat or drink until the numbness has gone away. Do not drive for 24 hours if you received a sed ative. Summary Transesophageal echocardiog tanmay (AMBER) is a test that uses sound waves (echocardiogram) to produce very clear, detailed images of the heart. AMBER is done by passing a flexible tube down the esophagus. Generally, this is a safe p rocedure. However, problems may occur, including damage to other structures or organs, bleeding, irregular heart beat, and a hoarse voice or trouble swallowing. Tell your health care provi aruna about any medicines and medical conditions you may have, as some conditions may increase your risk of complications. This information is not int ended to replace advice given to you by your health care provider. Make sure you discuss any questions you have with your health care provider. Document Released: 12/11/19 04 Document Revised: 12/17/2017 Document Reviewed: 12/17/2017 [employer] Interactive Patient Education 2019 [facility] [employer]. enoxaparin (ee NOX a PAR rin) Lovenox What is the most important information I should know about enoxaparin Enoxaparin can cause a very serious blood clot around your spinal cord if you undergo a spinal tap or receive spinal anesthesia (epidural), especially if you have a genetic spinal defect, a history of spinal surgery or repeated s elizabet taps, or if you are using other drugs that can affect blood clotting, including blood thinners or NSAIDs (ibuprofen, Advil, Aleve, and others). This type of blood clot can lead to long-term or permanent paralysis. Get emergency medical help if you have symptoms of a spinal cord blood clot such as back pain, numbness or muscle weakness in your lower body, or loss of bladder or bowel control. What is enoxaparin Enoxaparin is an anticoagul ant that helps prevent the formation of blood clots. Enoxaparin is used to treat or prevent a type of blood clot called deep vein thrombosis (DVT), which can lead to blood clots in the lungs (pulmonary embolism). A DVT can occur after certain types of vela rgery, or in people who are bed-ridden due to a prolonged illness. Enoxaparin is also used to prevent blood vessel complications in people with certain types of angina (chest pain) or heart attack. Enoxaparin may also be used for purpose s not listed in this medication guide. What should I discuss with my healthcare provid er before using enoxaparin You should not use this med icine if you are allergic to enoxaparin, heparin, benzyl alcohol, or pork products, or if you have: active or uncontrolled bleeding; or if you had decreased platel ets in your blood after testing positive for a certain antibody while using enoxaparin within the past 100 days. Enoxaparin may cause you to bleed more easily, especially if you have: a bleeding disorder that is inherited or caused by disease; hemorrhagic stroke; an infection of the lining of your heart (also called bacterial endocarditis); stomach or intestinal bleeding or ulcer; or recent brain, spine, or eye surgery. Enoxaparin can cause a very serious blood clot around your spinal cord if you undergo a spinal tap or receive spinal anesthesia (epidural). This type of blood clot could cause long-term or permanent paralysis, and may be more likely to occur if: you have a spinal cord injury; you have a spinal catheter in place or if a catheter has been recently removed; you have a history of spinal surgery or repeate d spinal taps; you have recently had a spinal tap or epidural anesthesia; you take aspirin or an NSAI D (nonsteroidal anti-inflammatory drug)--ibuprofen (Advil, Motrin), naproxen (Aleve), diclofenac, indomethacin, meloxicam, and others; or you are using a blood thinn er (warfarin, Coumadin) or other medicines to treat or prevent blood clots. Tell your doctor if you have ever had: a bleeding disorder such as hemophilia; kidney or liver disease; uncontrolled high blood pressure; eye problems caused by diabetes; a stomach ulcer; or low blood platelets after receiving heparin. Tell your doctor if you are . If you use enoxaparin during , make sure your doctor knows if you have a mechanical heart valve. It may not be safe to breas t-feed while using this medicine. Ask your doctor about any risk. How should I use enoxaparin Follow all directions on yo ur prescription label and read all medication guides or instruction sheets. Use the medicine exactly as directed. Enoxaparin is injected unde r the skin, or as an infusion into a vein. A healthcare provider may teach you how to properly use the medication by yourself. Read and carefully follow a ny Instructions for Use provided with your medicine. Do not use enoxaparin if you don't understand all instructions for proper use. Ask your doctor or pharmacist if you have questions. Prepare your injection only when you are ready to give it. Do not use if the medicine has changed colors, or has particles in it. Call your pharmacist for new medicine. You should be sitting or ly ing down during the injection. Do not inject enoxaparin into a muscle. Your care provider will estuardo dominik you where on your body to inject enoxaparin. Use a different place each time you give an injection. Do not inject into the same place two times in a row. You will need frequent medi nilo tests to help your doctor determine how long to treat you with enoxaparin. If you need surgery or dent al work, tell your surgeon or dentist you currently use this medicine. You may need to stop for a short time. Store at room temperature away from moisture an d heat. Each single-use prefilled s yringe is for one use only. Throw it away after one use, even if there is still medicine left inside. After your first use of an enoxaparin vial (bottle), you must use the medicine within 28 days. Throw away the vial after 28 days. Use a needle and syringe on ly once and then place them in a puncture-proof 'sharps' container. Follow state or local laws about how to dispose of this container. Keep it out of the reach of children and pets. What happens if I miss a dose Use the medicine as soon as you can, but skip the missed dose if it is almost time for your next dose. Do not use two doses at one time. What happens if I overdose Seek emergency medical atte ntion or call the Poison Help line at . Overdose may cause excessive bleeding. What should I avoid while using enoxaparin Avoid activities that may i ncrease your risk of bleeding or injury. Use extra care to prevent bleeding while shaving or brushing your teeth. What are the possible side effects of enoxapari n Get emergency medical help if you have signs of an allergic reaction: hives; itching or burning skin; difficult breathing; swelling of your face, lips, tongue, or throat. Also seek emergency medical attention if you have symptoms of a spinal blood clot: back pain, numbness or muscle weakness in your lower body, or loss of bladder or bowel control. Call your doctor at once if you have: unusual bleeding, or any bleeding that will not stop; easy bruising, purple or red spots under your s kin; nosebleeds, bleeding gums; abnormal vaginal bleeding, blood in your urine or stools; coughing up blood or vomit that looks like coff ee grounds; signs of bleeding in the br ain--sudden weakness (especially on one side of the body), sudden severe headache, problems with speech or vision; or low red blood cells (anemia )--pale skin, unusual tiredness, feeling light- headed or short of breath, cold hands and feet. Common side effects may include: nausea, diarrhea; anemia; confusion; or pain, bruising, redness, or irritation where th e medicine was injected. This is not a complete list of side effects and others may occur. Call your doctor for medical advice about side effects. You may report side effects to FDA at 2-109-NEU-8922. What other drugs will affect enoxaparin Tell your doctor about all your other medicines, especially other medicines to treat or prevent blood clots, such as: abciximab, anagrelide, cilo stazol, clopidogrel, dipyridamole, eptifibatide, ticlopidine, tirofiban; alteplase, reteplase, tenecteplase, urokinase; apixaban, argatroban, bival irudin, dabigatran, desirudin, fondaparinux, lepirudin, rivaroxaban, tinzaparin; or heparin. This list is not complete. Other drugs may affect enoxaparin, including prescription and yobj-ioj-gufxhug medicines, vitamins, and herbal products. Not all possible drug interactions are listed here. Where can I get more information Your doctor or pharmacist can provide more info rmation about enoxaparin. Remember, keep this and all other medicines out of the reach of children, never share your medicines with others, and use this medication only for the indication prescribed. Every effort has been made to ensure that the information provided by [employer]. ('[employer]') is accurate, up-to-date, and complete, but no guarantee is made to that effect. Dr whitehead information contained her ein may be time sensitive. [employer] information has been compiled for use by healthcare practitioners and consumers in the [place] and therefore [employer] does not warrant t hat uses outside of the [facility] States are appropriate, unless specifically indicated otherwise. [employer]'s drug information does not endorse drugs, diagnose patients or recommend therapy. [employer] amp;apos;s drug information is an informational resource designed to assist licensed healthcare practitioners in caring for their patients and/or to serve consumers viewing this service as a supplement to, and not a substitute for , the expertise, skill, knowledge and judgment of healthcare practitioners. The absence of a warning for a given drug or drug combination in no way should be construed to ind icate that the drug or drug combination is safe, effective or appropriate for any given patient. [employer] does not assume any responsibility for any aspect of healthcare administered with the aid of infor enid Jensen provides. The information contained herein is not intended to cover all possible uses, directions, precautions, warnings, drug interactions, allergic reactions, or adverse effects. If you have questions about the jerrell gs you are taking, check with your doctor, nurse or pharmacist. Copyright 4022-9177 [employer] Version: 08.06. Revision Date: 04/17/2019. Medication Education [Image Removed: page] [Image Removed: page] apixaban (Eliquis 5 mg oral tablet) This medicine is used for the following purpose s: blood clot prevent blood clots How to take medicine Take the medicine by mouth twice a day - mornin g and evening. Take two (2) pills each time. [Image Removed: sunrise_L.png] Morning [Image Removed: noon_L.png] Noon [Image Removed: sunset_L.png] Evening [Image Removed: moonrise_L.png] Bedtime 2 pills 2 pills IMPORTANT: These are your s pecific instructions. If they differ from any other information you receive, including the instructions below, talk to your prescriber or pharmacist. Instructions This medicine may be taken with or without food . It is very important that y ou take the medicine at about the same time every day. It will work best if you do this. Store at room temperature in a dry place. Do no t keep in the bathroom. Keep the medicine away from heat and light. Avoid grapefruit juice while on this medicine. It is important that you ke ep taking each dose of this medicine on time even if you are feeling well. If you forget to take a dos e on time, take it as soon as you remember. If it is almost time for the next dose, do not take the missed dose. Return to your normal dosing schedule. Do not take 2 doses of this medicine at one time. Please tell your doctor and pharmacist about all the medicines you take. Include both prescription and jgmg-trz-hqcvmdf medicines. Also tell them about any vitamins, herbal medicines, or anything else you take for your health. Do not suddenly stop taking this medicine. Check with your doctor before stopping. It is very important that y ou follow your doctor's instructions for all blood tests. Cautions This medicine may cause ser ious bleeding problems in patients taking blood thinner medications. Follow your doctor's instructions carefully to monitor your blood lab tests if you are on blood thinners. Tell your doctor and pharma cist if you ever had an allergic reaction to a medicine. Symptoms of an allergic reaction can include trouble breathing, skin rash, itching, swelling, or severe dizziness. Some patients taking this m edicine have experienced serious side effects. Please speak with your doctor to understand the risks and benefits associated with this medicine. This medicine may cause ser ious bleeding from the stomach or bowels. Stop this medicine and call your doctor immediately if you see any signs of bleeding. Bleeding can cause pain in the stomach, vomiti ng up liquid that looks like coffee grounds, and red or dark tarry stools. There is an increased risk of bleeding while on this medicine, please tell your doctor or nurse if you notice any excessive bleeding or bruising. Do not use the medication any more than instruc jose a. Speak with your doctor before taking any medici ne with aspirin. Please check with your doctor before dr inking alcohol while on this medicine. Tell the doctor or pharmaci st if you are , planning to be , or . Do not breastfeed while on this medicine. This medicine can hurt a ne w baby in the womb. If you become while on this medicine, tell your doctor immediately. Your doctor may switch you to a different medicine. Do not take Larissa's wort while on this medic ine. Ask your pharmacist if this medicine can interact with any of your other medicines. Be sure to tell them about all the medicines you take. Please tell all your doctor s and dentists that you are on this medicine before they provide care. Do not start or stop any ot her medicines without first speaking to your doctor or pharmacist. Call your doctor right away if you notice any u nusual bleeding or bruising. Do not share this medicine with anyone who has not been prescribed this medicine. This medicine can cause ser ious side effects in some patients. Important information from the U.S. Food and Drug Administration (FDA) is available from your pharmacist. Please review it carefully with your pharmacist to understand the risks associat ed with this medicine. Always refill this medicine before it runs out. Always keep medicine out of reach of children a nd pets. Side Effects The following is a list of some common side effects from this medicine. Please speak with your doctor about what you should do if you experience these or other side effects. increased risk of bleeding nosebleeds Call your doctor or get med ical help right away if you notice any of these more serious side effects: bleeding that is severe or takes longer to stop unusual bruising or discoloration on skin coughing up blood or vomit that looks like coff ee grounds fainting severe or persistent headache sudden leg pain, swelling, warmth or redness loss of movement anywhere on the body feeling of numbness or tingling in your hands a nd feet shortness of breath blood in stool dark, tarry stool symptoms of stroke (such as one-sided weakness, slurred speech, confusion) difficulty swallowing unusual or unexplained tiredness or weakness blood in urine blurring or changes of vision A few people may have an al lergic reactions to this medicine. Symptoms can include difficulty breathing, skin rash, itching, swelling, or severe dizziness. If you notice any of these symptoms, seek medical help quickly. Please speak with your doct or, nurse, or pharmacist if you have any questions about this medicine. [Image Removed: qrurl=[email or web address]%3A%2F%2F[employer].[email or web address] Fpem&Type=V2.0] IMPORTANT NOTE: This docume nt tells you briefly how to take your medicine, but it does not tell you all there is to know about it. Your doctor or pharmacist may give you other documents about your medi cine. Please talk to them if you have any questions. Always follow their advice. There is a more complete description of this medicine available in Tunisian. Scan this code on your smartphone or tablet o r use the web address below. You can also ask your pharmacist for a printout. If you have any questions, please ask your pharmacist. [email or web address] Clothes at Bedside: Pants, Shirt, Shoes, Socks, Undergarments Clothes Sent Home: None Electronics at Bedside: Cell phone Electronics Sent Home: None Jewelry at Bedside: Earring(s), Ring(s) Jewelry Sent Home: None Miscellaneous Items at Bedside: Purse/Wallet Miscellaneous Items Sent Home: None Personal Devices at Bedside: Dentures, lower, D entures, upper Personal Devices Sent Home: None I understand that [facility] is not responsible for any personal belongings/effects or valuables that have not been identified on the valuables and belongings list. Any personal effects brought int o the facility and not recor ded on the valuables and belongings form are the responsibility of the patient/family/significant other.I have received the indicated patient education materials/instructions and medication list and have verbalized underst anding. 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 Signature: Relationship to Patient: Witness Signature: Date/Time: Consultation 10/25/2019 Chapito goode Patient: JOSEPH VALDIVIA ( EV) [facility] Age: 79 years Sex: F : 1940 Associated Diagnoses: None Author: Gaurav Sharma DO Admission Information Date of Service: 10/25/2019 13:48. 10/25/2019 1:02 [facility] Several strokes in various p arts of brain. Source of history: Self, nursing, chart review a nd participating physicians. Accounting Instructor: Gaurav Sharam DO. History of Present Illness This is a very pleasant 79 y o RH female that presents to the hospital due to an abnormal MRI of the brain. The patient states that she was having some difficulty at the end of last week with w ord finding and fluency of s peech. 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 Patient states that she had a headache in the bifrontal region that was moderate in intensity. This is been intermittent she has had most of the time headache free. She denies any chest pain, palpitations, shortness of breath, nausea, vomiting or abdominal pain. She is exp eriencing lightheadedness, v ertigo, changes in vision, problems swallowing or any focal weakness, numbness or tingling in her arms or legs. No reports of loss of consciousness or seizure-like activity. No recent sick contacts, fev er, chills or night sweats. She was contacted by [facility] He recommended for her to come to the emergency room for urgent chelle luation for embolic stroke of undetermined sourc e. Histories Past Medical History: Basal cell carcinoma, hypertension, migraine, hyperlipidemia Procedure history: Bladder operation (7531303988). Plantar fascia ([id number]). Comments: 10/25/2019 2:14 Reuben Lomas RN Traveler Left foot Sclerotherapy of varicose vein ([id number]). Comments: 10/25/2019 2:15 Reuben Lomas RN Traveler Bilateral Knee replacement ([id number]). 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 Hysterectomy ([id number]). Carcinoma (710454553). Family History: Negative for stroke or any other neurological disorders Social History Denies alcohol, tobacco and drug use. She quit smoking back in 1979. Health Status Allergies: Allergies (1) Active Reaction NKA None Documented Current medications: Home Meds Home Medications (9) Active amLODIPine 2.5 mg oral tablet 2.5 mg = 1 Tab, PO , qDay atorvastatin 20 mg oral tablet 20 mg = 1 Tab, PO , qDay biotin , PO, Daily Calcium 600 +D Tab 1 Tab, PO, TID cyclobenzaprine 10 mg oral tablet glucosamine hydrochloride 1500 mg oral tablet 1, 500 mg = 1 Tab, PO, qDay SUMAtriptan 25 mg oral tablet 25 mg = 1 Tab, PRN , PO, qDay Vitamin B12 50 mcg oral tablet 50 mcg = 1 Tab, P O, qDay Vitamin D3 5,000 Unit oral capsule 5,000 Unit = 1 Cap, PO, qDay VS/Measurements Last Documented Vital Signs Vital Signs (Most Recent ) Temp PO Heart Rate Resp Rate 37.0 90 16 (10/25 07:00) (10/25 12:00) (10/25 07:00) Non Invasive BP NIBP Mean AdmitWeight CurrentWe ight BMI 141 / 83 103 72.93 72.93 26.76 (10/25 12:00) (10/25 04:00) (10/24 20:08) (10/05 01:02) (10/25 01:02) Ventilation SaO2 97 (10/25 12:00) Review of Systems 10 point review of systems w as completed and is negative excluding the ones mentioned in the HPI. Physical Examination General: No acute distress. Orientation: To person, To place, To time, situ ation, Alert. Eye: Fundoscopic examination attempted though unable to visualize optic disc OU.. Respiratory: Lungs are clear to auscultation. Cardiovascular: Regular rate and rhythm. No erazo tid bruits auscultated.. Gastrointestinal: Soft, Non-tender, Non-distende d, Normal bowel sounds. Musculoskeletal: Full range of motion with passive movement in all four extremities.. Neurologic: Mental Status: M jacquelin and language are intact. The patient has a good fund of knowledge and is appropriate. Cranial Nerves: CN 2 - 12 intact excluding slight flattening of the nasolabial fol d on the left. No facial asy mmetry with sensory testing. Hearing is intact to conversational tones. Motor: Strength is full and symmetric. Tone and bulk are normal. There is no pronator drift. Sensory: Pinprick and light touch are full and symmetric. Coordination: There is no dysmetria or tremor. Reflexes: DTR 1+ upper and lower extremities bilaterally. No abnormal plantar responses. Gait: Normal. Oth er: There are no visual field deficits, nystagmu s or dysarthria. Psychiatric: Cooperative, Ap propriate mood and affect, Patient does not appear anxious. . [...] Normal ABS Lymph 1.1 thousand/uL Normal ABS [place] 0.8 thousand/uL Normal ABS Eos 0.2 thousand/uL [...] Normal ABS Lymph 1.3 thousand/uL Normal ABS [place] 0.9 thousand/uL Normal ABS Eos 0.2 thousand/uL [...] Results Radiologist's interpretation Name: JOSEPH VALDIVIA Account: [id number] : 1940 Result Date: 10/24/19 20:54 Verified By: Des Ace MD at 10/25/19 09:43 Report : XR Chest 1 View Portable IMPRESSION:No acute cardiopulmonary abnormality. 10/25/19 09:42 ++++++++++++++++++++++++++++++++++++++++++++++++ +++++++ Impression and Plan Diagnosis Acute embolic stroke (JAO45-OH I63.9, Discharge, Medical). Plan: The patients history, neurological examination, and neuroimaging are all consistent with an acute embolic stroke from an undetermined source. I discussed the case with the patients outpatient neur ologist last night. He infor med me of the MRI findings. I have ordered a CTA head and neck to evaluate for potential thromboembolic source. The patient had a AMBER. There was no intracardiac thrombus iden tified. She has a small PFO. I have added lower extremity venous duplex. The patient does not have a history of PAF but will need to follow with cardiology for prolonged cardiac monitoring if there is n ot any evidence of an arrhyt hmia during the hospital stay. ESUS alone is not an indication for anticoagulation. The patient will be given ASA 325mg daily for now. She will continue with statin. LDL goal is less then 70. I recommen d to treat blood pressure according to the current [facility]NC guidelines for comorbidities. Blood glucose will need to be tightly monitored. Goal HbA1c < 7. PT, OT, ST evalua te and treat. SCDs for DVT p rophylaxis. The patient will need to be evaluated by Sleep Medicine for SARAH. This has been shown to be an independent risk factor for ischemic strokes. I discussed the case w [facility] admitting physician and nursing. I will continue to follow the patient with serial neurological examinations during her hospital stay. I will review the work up once complete and give further recomm endations if indicated at th at time. I discussed the plan in detail with the patient and answered her questions at bedside. Thank you for allowing me to participate in the care of this patient. Gaurav Sharma D.O. Neurohospitalist [facility]. Pt Care Time: Evea-ao-jksy t cy with the patient including history of present illness, physical examination, reviewing labs and neuroimaging, and discussing the options and plan with the patient, ab armstrong and participating physicia ns > 65 minutes. Greater than 50% of this time was spent in direct patient counseling and coordination of care (end time 1355). Problem list: All Problems Stroke / [id number] / Confirmed Elevated troponin / [id number] / Confirmed. Electronically Signed By: Gaurav Sharma DO On 10/25/19 14:06 Co Signature By: Modify Signature By: The patient has a DVT. I di scussed the case with the admitting physician. I have recommended for her to be discharge home on a NOAC and discontinue antiplatelet therapy. She will follow up with her neurologist Dr. Mccall next week. Electronically Signed By: Gaurav Sharma DO On 10/26/19 13:58 Co Signature By: Modify Signature By: Gaurav Sharma DO On 10/26/19 13:58 Echocardiogram amber 10/25/2019 [facility] *[facility]* Cardiopulmonary Services [address] [place] [address] Transesophageal Echocardiogram Patient: Joseph Valdivia MR #: [id number] Study Date: 10/25/2019 Age: 79 : 1940 Gender: F Height: 165.1cm Weight: 72.7kg BP: 189 / 82 Ordering MD: Kristie Carlisle MD Quality Engineer Medical Device: Bertha Beckham - [facility] Study Conclusions 1. Left ventricle: Systolic function was normal. Wall motion was normal; there were no regional wall motion abno rmalities. 2. Aortic valve: No evidence of vegetation. Mild regurgitation. 3. Mitral valve: No evidence of vegetation. Mild regurgitation. 4. Left atrium: No evidence of thrombus in the a trial cavity or appendage. 5. Right atrium: No evidence of thrombus in the atrial cavity or appendage. 6. Atrial septum: Agitated saline bubble study p ositive for PFO/ASD. 7. Tricuspid valve: No evidence of vegetation. 8. Pulmonic valve: No evidence of vegetation. Indications: stroke;amber STROKE. History: PMH: DYSARTHRIA,EMBOLIC STROKE. Study data: Study status: Routine. Patient statu s: Inpatient. Location: [facility]. Procedure: BUBBLE STUDY DONE. Transesophageal echocardiography was performed. Topical anesthes ia was obtained using viscous lidocaine. A transesophageal probe was inserted by the attending service station equipment mechanic. Image quality was ad equate. Intravenous contrast (agitated saline) was administered. Tony dy completion: The patient tolerated the procedure well. Body s urface area: BSA: 1.84m^2. Body mass index: BMI: 26.7kg/m^2. Cardiac Anatomy Left ventricle: Systolic function was normal. Wa ll motion was normal; there were no regional wall motion abnor malities. Wall motion score: 1.00. Right ventricle: The cavity size was normal. Wal l thickness was normal. Systolic function was normal. Left atrium: The atrium was normal in size. No e vidence of thrombus in the atrial cavity or appendage. The appendage was morphologically a left appendage, multilobulated , and of normal size. Emptying velocity was normal. Right atrium: The atrium was normal in size. No evidence of thrombus in the atrial cavity or appendage. The appendage was morphologically a right appendage. Atrial septum: Agitated saline bubble study posi tive for PFO/ASD. Mitral valve: Structurally normal valve. annulus . Structurally normal valve. Leaflet separation was normal. No evidence of vegetation. Doppler: Mild regurgitation. Tricuspid valve: Structurally normal valve. [place] let separation was normal. No evidence of vegetation. Doppler: No significant regurgitation. Aortic valve: Structurally normal valve. Trileaf let; normal thickness leaflets. Cusp separation was normal. No evidence of vegetation. Doppler: Mild regurgitation. Pulmonic valve: Structurally normal valve. No ev idence of vegetation. Aorta: There was no atheroma. There was no evide nce for dissection. Aortic root: The aortic root was not dilated. Ascending aorta: The ascending aorta was normal in size. Aortic arch: The aortic arch was normal in size. Descending aorta: The descending aorta was diamond l in size. Pulmonary artery: The main pulmonary artery was normal-sized. Pericardium: There was no pericardial effusion. Kristie Carlisle MD [id number] Post-Op Note 10/25/2019 Chapito goode Patient: JOSEPH VALDIVIA ( EV) [facility] Age: 79 years Sex: F : 1940 Associated Diagnoses: None Author: Kristie Carlisle MD Postoperative Information Procedure: AMBER Preoperative Diagnosis: CVA. Postoperative Diagnosis: Same. Performed by: Kristie Carlisle MD. Process Improvement Engineer: N/A. Anesthesiologist: N/A. Findings: AMBER: Mild MR. Very small PFO. Otherwise unremarkable. Specimens Removed: None. Estimated Blood Loss: minimal.. Anesthesia Type: Local, IV Sedation. Complications: None. Correct Counts: Yes. Patient status at the end of procedure:: Stable. Electronically Signed By: Kristie Carlisle MD On 10/25/19 11:28 Co Signature By: Modify Signature By: AMBER Cathlab Use Only amber 10/25/2019 Chapito Navarro [facility] PATIENT INFORMATION Medical [facility] Patient Name JOSEPH VALDIVIA Study Date 10/25/2019 Study Number [id number] Date of 1940 Age 79 Years Gender Female Race Height 165.00 cm (5 ft. 5 in.) Weight 72.60 kg (160 lbs) BSA 1.80 m2 STAFF Duty Name IN OUT -- -------- -------- Underwater Photographer Kristie Carlisle MD 10:39:26 RN Holding Room Syed Martinez RN 10:39:31 PROCEDURES Time Procedure -------- 10:39:42 Holding room count Code 1: [id number] Code 2: Code 3: Code 4: 10:39:43 Moderate Sedation, initial 30 min Code 1: [id number] Code 2: Code 3: Code 4: 10:39:46 Transesophageal Echocardiogram Code 1: [id number] Code 2: Code 3: Code 4: Cardiac Output Results-M Phase Manual C.O. Manual C.I. TDCO TDCI [place] C.O . Manuela C.I. HR (l/min) (l/min/m2) (l/min) (l/min/m2) (l/min) ( l/min/m2)(BPM) -------- ------- ------- --- --------- ---- Baseline Blood Flow Results-M Baseline Group Sat (%) Content (ml/dl) ----- ------- PV SA PA MV VO2 VO2 (ml/min): VO2 Source: Manuela CO (l/min): Manuela CI (l/min/m2): A-VO2 Diff (ml/dl): Shunt Results Indexed Indexed Values Values (l/min/m2) (l/min/m2) Qp per Qs: EPBF (l/min): L->R Flow (l/min): Qp (l/min): R->L Flow (l/min): Qs (l/min): Resistance Results (Metric Units) Phase PVR SVR PVR-I SVR-I TPR TVR TPR-I TVR-I PV R/ TPR/ SVR TVR -------- ---- ----- ----- ----- ---- ----- ----- ----- ---- ---- Baseline Resistance Results (Wood Units) Phase PVR SVR PVR-I SVR-I TPR TVR TPR-I TVR-I PV R/ TPR/ SVR TVR -------- ---- ----- ----- ----- ---- ----- ----- ----- ---- ---- Baseline Stroke Work Results-M Phase RVSW LVSW RVSW-I LVSW-I (gm*m) (gm*m) (gm*m/m2) (gm*m/m2) -------- ----- ----- --------- --------- Baseline Conscious Sedation Pre-Study Conscious Sedation Assessments Activity: 2 - Able to move 4 extremities volunt arily or on command Respirations: 2 - Able to breathe deeply and co ugh freely Circulation: 2 - BP +/- 20% of pre-anesthetic l evel Consciousness: 2 - Fully Awake O2 Saturation: 2 - Able to maintain O2 saturati on greater than 92% on room air Pre-study Totals: 10 Comment: Post-Study Conscious Sedation Assessments Activity: 2 - Able to move 4 extremities volunt arily or on command Respirations: 2 - Able to breathe deeply and co ugh freely Circulation: 2 - BP +/- 20% of pre-anesthetic l evel Consciousness: 2 - Fully Awake O2 Saturation: 2 - Able to maintain O2 saturati on greater than 92% on room air Post-study Totals: 10 Comment: Medication Events-M Start Stop Medication Amount Route -------- -------- ------ ----- 11:14:49 Versed 2 mg IV Ordered By: Kristie Carlisle MD Given By: Syed Martinez RN Type: Sedative Billing Code: 11:14:53 Fentanyl 25 mcg IV Ordered By: Kristie Carlisle MD Given By: Syed Martinez RN Type: Opioid Billing Code: VITALS Insp Exp SpO2 HR BP CO2 CO2 RR Temp Time (%) (BPM) (mmHg) (mmHg) (mmHg) (/min) (deg C) LOC -------- ----- ----- ----- ----- --- -- ------ ----- 10:44:56 98 77 189/82/118 11:16:04 97 83 179/86/124 16 11:19:02 96 79 171/89/122 16 11:24:55 96 80 156/85/113 16 11:30:47 96 76 150/79/108 16 1 11:45:47 96 73 148/74/103 16 1 11:48:49 96 73 143/71/101 16 Event Log-M Time Summary/Comment -------- 10:38:34 Phase: Baseline 10:38:51 Pre Case Documentation 10:38:51 Pre-Procedure Immediately Prior to Proc edure Room 10:38:51 Verify Patient's Identity Using 2 Pt Id entifiers 10:38:51 Consent Signed And On Chart 10:38:51 Verbally Verify Site and Side with the Patient or Designee 10:38:51 Verify All Relevant Documentation prese nt, i.e. H&P 10:38:51 Verify Availability of Properly Labeled Drugs and Radiology Resu 10:38:51 Verify Availability of blood/products, Devices, Equipment Needed 10:38:51 Pre-procedure Teaching Performed Includ ing Conscious Sedation 10:38:51 Patient Verbalized Understanding Of Pro cedure 10:39:33 Case Event Type:AMBER,Physician:Kristie Carlisle 10:39:38 Patient Arrives From 10:39:42 Procedure: Holding room count 10:39:43 Procedure: Moderate Sedation, initial 3 0 min 10:39:46 Procedure: Transesophageal Echocardiogr am 10:39:48 Patient Placed on 02 by NC at 3L 10:39:48 Suction Set up and ready at bedside 10:39:49 Patient Nursing Assessment 10:42:17 Pre-Case: Conscious Sedation/Ignacio 10:42:25 Stop Bang Score = 10:43:01 Physician informed of STOP BANG Score 10:43:28 ETCO2 Waveform + 10:43:29 Patient Allergies: See Custom Form 10:44:56 SpO2 98%; HR 77 bpm; 189/82/118 NBP; 11:12:18 Apparel Cutter at bedside: 11:12:19 Physician Called 11:12:19 TEE 11:12:20 Physician Arrived 11:12:20 ASA ASSESSMENT FORM 11:14:41 Viscous Lidocaine gargled by Patient 11:14:42 Cetacaine/Hurricaine [place] to Throat 11:14:43 Time Out Taken 11:14:43 Pre Procedural Pause with all staff and Physician present 11:14:43 Correct Patient Name Verified 11:14:43 Correct Patient Birthdate Verified 11:14:43 Correct Procedure Verified 11:14:43 Correct Physician Verified 11:14:43 Correct Site Verified 11:14:49 Versed IV 2 mg 11:14:53 Fentanyl IV 25 mcg 11:16:04 SpO2 97%; HR 83 bpm; 179/86/124 NBP; RR 16/min 11:17:21 Case Start 11:17:[address] 11:17:23 Patient Placed in Left Semi-Leblanc's Po sition 11:17:24 AMBER Probe Inserted 11:17:24 Multiple Views Taken and Recorded 11:19:02 SpO2 96%; HR 79 bpm; 171/89/122 NBP; RR 16/min 11:22:27 BP: 161/82 11:22:27 HR: 78 11:22:28 RESP RATE: 16 11:22:28 SPO2: 96 11:22:29 ETCO2 Waveform + 11:24:03 Bubble Study 11:24:03 8cc's IV Normal Saline afitated with 2c c's Air Injected IVP 11:24:03 Valsalva Maneuver Performed by Patient 11:24:03 Multiple Views Taken and Recorded 11:24:42 AMBER Probe removed 11:24:43 Patient Tolerated Procedure Well 11:24:55 SpO2 96%; HR 80 bpm; 156/85/113 NBP; RR 16/min 11:26:31 Case End 11:30:47 SpO2 96%; HR 76 bpm; 150/79/108 NBP; LO C 1; RR 16/min 11:45:47 SpO2 96%; HR 73 bpm; 148/74/103 NBP; LO C 1; RR 16/min 11:48:49 SpO2 96%; HR 73 bpm; 143/71/101 NBP; RR 16/min 12:26:25 Post Procedure 12:26:26 Vitals Set to Required Intervals: 12:26:27 Discharge Plan of Care/Goals 12:35:26 Walk Test Performed 12:35:37 SBAR Report Called to: RN 12:35:38 Patient Transferred by RN on monitor to : IPOA 8 12:35:38 Transferring RN Initials: JS Radiology Summary Total Runs: Total Cine Frames: Cine Archive CD Identification (ID): Diagnostic Interventional Total Fluoro Time (minutes): Exam Record Exam Fluoro Exam Total DAP DAP DAP Dose Area Product (cGycm2): Custom Forms Pre-Procedure Record 1 -- Color Normal Pre-Procedure Record 1 -- GI/ WNL Pre-Procedure Record 1 -- Circulation/Perfusion Skin Normal Pre-Procedure Record 1 -- Circulation/Perfusion Skin Warm Pre-Procedure Record 1 -- Respirations WNL Pre-Procedure Record 1 -- Abdomen WNL Pre-Procedure Record 1 -- Turgor Normal Pre-Procedure Record 1 -- Rhythm NSR Pre-Procedure Record 1 -- Comfort/Pain 0 Pre-Procedure Record 1 -- Temperature Warm Pre-Procedure Record 1 -- Cognition/Behavior A/O Pre-Procedure Record 1 -- Cognition/Behavior Cooperative Stop Bang -- 4: Blood Pressure: Do you munoz ve or are you being treated for high blood pressure No Stop Bang -- 5: BMI: BMI more than 32kg/m2 No Stop Bang -- 8: Gender: Gender Male No Stop Bang -- 3: Observed: Has Anyone ever observed you stop b reathing during your sleep No Stop Bang -- 6: Age: Age over 60 Yes Stop Bang -- MD notified of Score: 1 Stop Bang -- Total: 1 Stop Bang -- 1: Snoring: Do you snore loudly No Stop Bang -- 2: Tired: Do you often feel tired, fatigued, or fall asleep during the daytime No Stop Bang -- 7: Neck Circumference: Neck Circumference >40cm No Pre-Procedure Record 2 -- Barriers to Learning: None Pre-Procedure Record 2 -- Nickel: No Pre-Procedure Record 2 -- Permission to speak with Next of Kin: Yes Pre-Procedure Record 2 -- From: [email or web address] Pre-Procedure Record 2 -- Location: right knee Pre-Procedure Record 2 -- Procedure Scheduled: AMBER Pre-Procedure Record 2 -- Accompanied By: transport Pre-Procedure Record 2 -- Patient Teaching: Yes Pre-Procedure Record 2 -- Date: 10/25/2019 Pre-Procedure Record 2 -- NPO Status: mn Pre-Procedure Record 2 -- Beef Products: No Pre-Procedure Record 2 -- All Learning/Teaching and Pr ocedural Information given in Patient's Preferred Language for Learning; Tunisian Pre-Procedure Record 2 -- Side Rails Up: Yes Pre-Procedure Record 2 -- Safe at Home: Yes Pre-Procedure Record 2 -- Time 10:40:07 Pre-Procedure Record 2 -- Mode: bed Pre-Procedure Record 2 -- Metal In Body: Yes Pre-Procedure Record 2 -- Latex Reaction: No Pre-Procedure Record 2 -- Identiband on and Verified: Yes Pre-Procedure Record 2 -- Sleep Apnea No Pre-Procedure Record 2 -- Collagen Reaction No Pre-Procedure Record 2 -- Dept: [facility] Pre-Procedure Record 2 -- Pt: verbalizes Understanding: Yes Pre-Procedure Record 2 -- Pt. Status: In Patient Pre-Procedure Record 2 -- Physician: Ratna Carlisle Pre-Procedure Record 2 -- Loose Teeth Yes Pre-Procedure Record 2 -- Consent signed/ No Further Questions: Yes Pre-Procedure Record 3 -- Previous PCI No Pre-Procedure Record 3 -- Alcohol Hx Yes Pre-Procedure Record 3 -- Tobacco Hx Yes Pre-Procedure Record 3 -- CHF (Current Status) No Pre-Procedure Record 3 -- HTN No Pre-Procedure Record 3 -- Dyslipidemia No Pre-Procedure Record 3 -- Prev Cardiac Transplant No Pre-Procedure Record 3 -- Prev CABG No Pre-Procedure Record 3 -- Renal Failure No Pre-Procedure Record 3 -- Previous Valve Surgery No Pre-Procedure Record 3 -- CHF - Prev Hx No Pre-Procedure Record 3 -- PA (>7Days) No Pre-Procedure Record 3 -- Chronic Lung Disease No Pre-Procedure Record 3 -- Drug Hx No Pre-Procedure Record 3 -- CV Disease No Pre-Procedure Record 3 -- Comment quit 1980 Pre-Procedure Record 3 -- PVD No Pre-Procedure Record 3 -- Diabetes No Pre-Procedure Record 3 -- Cardiogenic Shock No Pre-Procedure Record 3 -- Family Hx No IV Information -- IV Location #1 left ac existing IV Information -- IV Fluids ns Allergies -- Allergies: NKDA Out Pt POC DC -- Goals: Met Out Pt POC DC -- Goals: Met Out Pt POC DC -- Goals: Met Out Pt POC DC -- Goals: Met Out Pt POC DC -- Goals: Met Out Pt POC DC -- Goals: Met ASA Form -- Mallampati Airway Class Class I ASA Form -- Pain Assessment per pain scale 0-10 0 ASA Form -- NPO Since mn ASA Form -- Time 11:12:21 ASA Form -- Allergies: nka ASA Form -- Plan for Sedation Mild ASA Form -- History on Chart Inpatient H&P on Chart ASA Form -- ASA SCORE ASA II - Mild systemic disease that do es not limit function ASA Form -- Airway Assessment Normal ASA Form -- Date 10/25/2019 Consultation #[id number] 10/25/2019 [facility] Electronically Signed By: Kristie Carlisle MD On 10/25/19 09:12 Co Signature By: Modify Signature By: Consultation 10/25/2019 [facility] DATE OF CONSULTATION: 10/25/[address] [facility] REASON FOR CONSULTATION: Mul tiple strokes, possible cardiac source of thromboembolism. REQUESTING PHYSICIAN: Renata Vera M.D. PRIMARY ACADEMIC AFFAIRS DEAN: Dr. Shiva Echeverria. HISTORY OF PRESENT ILLNESS: I am seeing Ms. Valdivia upon the request of Dr. Vera. Joseph Barreto is a 79-year-old lady with established history of hypertension, hyperlipidemia and migraine who has been having difficulty expressing herself with problem with speech and also have some balance problem. The patient was evaluated by Dr. Mccall neurologist who sent her to the hospital for further assessment since the MRI showed cerebel lar infarcts and posterior lobe infarct that seemed to be relatively recent. The patient denied any palpitation or fluttering. Denies any chest discomfort or heaviness. Denies any orthopnea or PND and no ankle edema. REVIEW OF SYSTEMS: Review of all other 14 systems relatively otherwise unremarkable. PAST MEDICAL HISTORY: 1. Hypertension. 2. Hyperlipidemia. 3. Migraine headaches. PAST SURGICAL HISTORY: Multi ple surgeries including hysterectomy, hernia repair, and total right knee replacement. ALLERGIES: She has no known allergies to medicat ions. MEDICATIONS: At home include amlodipine 2.5 mg daily, atorvastatin 20 mg daily, calcium with vitamin D, cyclobenzaprine and sumatriptan, vitamin B12 and vitamin D3. FAMILY HISTORY: Noncontributory to this admissio n. SOCIAL HISTORY: She lives [facility]. Son is visiting from [place]. She quit smoking in the . PHYSICAL EXAMINATION: GENERAL: This is an elderly lady in no apparent respiratory distress. VITAL SIGNS: Temperature of 37 degrees centigrade, heart rate of 78, blood pressure /81. HEENT: Normocephalic, atraumatic. NECK: No thyromegaly. CARDIOVASCULAR: Carotid upst roke normal. The heart is regular with a normal S1 and normally split S2. Loud S4 at the apex. Apical systolic murmur of I-II/. No S3 gallop. LUNGS: Clear. ABDOMEN: Benign. No masses. EXTREMITIES: No edema, cyanosis, or clubbing. NEUROLOGICAL: Deferred to neurology. LABORATORY TESTS: White cell s of 6700, hemoglobin 12.2, hematocrit 35.9. Sodium of 137, potassium 3.9, BUN 18, creatinine of 0.59. Troponin of 0.77. Cholesterol of 198, triglyceride of 122, HDL of 52, LDL of 122. TSH of 3.5 and hemoglobin A1c 5.3. MRI done on the outside showing multiple cerebel lar infarcts. ASSESSMENT AND PLAN: 1. Acute cerebrovascular acc ident at multiple locations raising the concern about possible cardiac source of thromboembolism. 2. Hyperlipidemia, uncontrolled. 3. Vascular disease. LDL needs to be below 70. 4. Hypertension, not optimally treated at this p oint. 5. Migraine headaches raises the concern that patient may have atrial septal defect/PFO. 6. Elevated troponin, nonspe cific, consistent with recent cerebrovascular accident. RECOMMENDATIONS: 1. Transesophageal echocardi ogram was recommended. Risks, benefits, and alternative discussed. It will have a better yield than a regular echocardiogram. 2. Dual antiplatelets. 3. Increase atorvastatin. 4. Increase amlodipine to 5 mg daily for hypertension management. Further recommendation depends on the findings of the AMBER outpatient. MCT will be necessary for assessment of atrial fibrillation. I would like to thank Dr. Vera for consultation . Dictated by: KRISTIE CARLISLE MD /BM T : 10/25/2019 10:03:21 /NTS Doc: [id number] Job: [id number] cc: CAROL RUFF MD Electronically Signed By: Kristie Carlisle MD On 10/25/19 10:47 Co Signature By: Modify Signature By: Physical Therapy Daily Patient: JOSEPH VALDIVIA MA 10/25/2019 [facility] Progress Note Age: 79 years Sex: F : Active Insurance: MEDICARE [id number] [facility] Admitting MD: Renata Vera MD Location: [facility] IPOA: IPOA: 08 PCP: Carol Ruff MD Author: Rudy Schilling PT Spoke with RN, Didi, pt w ith possible NSTEMI and elevated trops with pending cardiology consult. Pt schedule for AMBER at 11A. PT to hold until cards consult and per POC. PT to attempt later in PM as able or 10/26. Thank you. Electronically Signed By: Rduy Schilling PT On 10/25/19 11:35 Co Signature By: Modify Signature By: ED Physician Notes 10/25/2019 [facility] Patient: JOSEPH VALDIVIA ( EV) [facility] Age: 79 years Sex: F : 1940 Associated Diagnoses: None Author: Yariel Jeffrey MD Basic Information Time seen: Provider Initial Contact Time 10/24/2019 19:42. History source: Patient. Arrival mode: Private vehicle. History limitation: None. Additional information: Arianne ent's physician(s): Shiva Echeverria MD (Production Assembly Supervisor), Wilson Mccall MD (Neurologist), Carol Ruff MD (primary care provider), Chief Complaint (ST) Chief Complaint ED: speech problem and head pain 10/24/19 20:08, Subjective Nursing Assessme nt: pt reports intermittent expressive aphasia, confusion, and head pain x 4 days. pt has seen neurologist and was sent here for admission. pt denies hx of CVA or blood thinners. 10/24/19 20:08 . History of Present Illness The patient presents with neurological problems. This is a 79 year old female who presents to the emergency department with intermittent confusion, headache, memory loss, abnormal balance, and altered speech that started 4 days ago. She describes her speech problem as 'speaking gibberish.' The patient was evaluated by her primary care provider who ordered an ultra sound and an MRI for her which she received 1 day ago. The bilateral carotid duplex in dicated no hemodynamically s ignificant stenosis. The MRI indicated multiple bilateral punctate lesions suggestive of embolic strokes. The MRI was sent to her neurologist, Dr. Mccall, who instructed [facility]. She further reports that her speech has gradually improved for the past 2 days. She reports taking Aspirin today. She denies a history of cardiac p roblems. She denies numbness or weakness. She denies current problems with ambulation.. Review of Systems Constitutional symptoms: No fever, Skin symptoms: No jaundice, no rash. Eye symptoms: No icterus, ENMT symptoms: No ear pain, no sore throat. Respiratory symptoms: No shortness of breath, no cough. Cardiovascular symptoms: No chest pain, Gastrointestinal symptoms: No abdominal pain, Genitourinary symptoms: No dysuria, Musculoskeletal symptoms: No back pain, Neurologic symptoms: Headache, speech problem, m jacquelin loss. Psychiatric symptoms: No anxiety, Additional review of system s information: All other systems reviewed and otherwise negative. Health Status Allergies: Allergic Reactions (Selected) NKA. Medications: Multi vitamins, calcium, B-12, D3, Glucosamine, probiotics, Biotin, antihistamines as needed, Aleve as needed, Systane eye drops. Past Medical/ Family/ Social History Medical history Reviewed as documented in chart. Medical history: Squamous cell carcinoma, Basal cell carcinoma. Surgical history: Rectal vag inal fistula, Rectal repairs, hysterectomy, bladder repair, left foot plantar fascia release, bilateral tributary varicosities sclerotherapy, eye lid surgery, right knee repl acement, bilateral cataract surgery, carcinoma r emoval. Social history: Social and Psychosocial Habits Alcohol 10/24/2019 Use: Current Type: Wine Frequency: 1-2 times per month Home/Environment 10/24/2019 Congregation restrictions/concerns: None Lives with: Alone Living situation: Home/Independent Substance Abuse 10/24/2019 Use: Denies Tobacco 10/24/2019 Tobacco Use: Former smoker, quit more Stopped at age: [age] Years , Reviewed as documented in chart. Physical Examination Vital Signs Vital-Signs 10/24/2019 20:08 MST Pain Intensity 5 Pain Scale Used Numeric Rating Scale Temperature PO 36.7 deg C Normal Heart Rate 88 bpm Normal NIBP Systolic 161 mm Hg H NIBP Diastolic 94 mm Hg H Resp Rate (Monitor) 18 Breaths/Min Normal SPO2 97 % Normal Oxygen Method Room air . Oxygen saturation. General: Alert, no acute distress. Skin: Warm, dry, intact. Head: Normocephalic, atraumatic. Neck: Supple, trachea midline. Eye: Pupils are equal, round and reactive to light, extraocular movements are intact, normal conjunctiva. Ears, nose, mouth and throat: Oral mucosa moist. Cardiovascular: Regular rate and rhythm. Respiratory: Lungs are clear to auscultation. Chest wall: No tenderness. Back: Nontender, Normal range of motion. Musculoskeletal: Normal ROM, normal strength. Gastrointestinal: Soft, Nont jo, Non distended, Normal bowel sounds, No organomegaly. Neurological: Alert and orie nted to person, place, time, and situation, Mild dysarthria. See NIH stroke scale.. Lymphatics: No lymphadenopathy. Psychiatric: Cooperative, appropriate mood and a ffect. Medical Decision Making Electrocardiogram: Time 10/05 20:29:00, rate 74, normal sinus rhythm, No ST-T changes, no ectopy, normal OH and QRS intervals, EP Interp, Low QRS voltage in the precordial leads. Poor R wave progre ssion. Inferior Q waves. This is an abnormal EKG .. Results review: Lab results : Laboratory 10/24/2019 21:47 MST WBC 7.3 thousand/uL Normal [...] Normal ABS Lymph 1.3 thousand/uL Normal ABS [place] 0.9 thousand/uL Normal ABS Eos 0.2 thousand/uL [...] >60 mL/min/1.73m2 NA Calcium 9.2 mg/dL Normal Protein, Total 6.4 gm/dL Normal Albumin 3.4 gm/dL Normal Globulin 3.0 gm/dL Normal A/G Ratio 1.1 Normal Bili Total 0.4 mg/dL Normal ALT 20 Units/L Normal AST 30 Units/L Normal Alkphos 111 Units/L Normal Troponin I 0.83 ng/mL CRIT . Head Computed Tomography: Radiology results: Notes: Chest x-ray does not show any evidence of infiltrate, effusion or pneumothorax.. Procedure NIH Stroke Scale Time: 10/25/2019 19:45:00 . Level of consciousness: Alert = 0. Current month and age: Answers both correctly = 0. Open and close eyes/preforming machine operator release hand: Obeys bot h correctly = 0. Best gaze: Normal = 0. Visual field testing: No visual field loss = 0. Facial paresis: Normal symmetric movement = 0. Motor function left arm: Normal = 0. Motor function right arm: Normal = 0. Motor function left leg: Normal = 0. Motor function right leg: Normal = 0. Limb ataxia: No ataxia = 0. Sensory: Normal = 0. Best language: No aphasia = 0. Dysarthria: Mild to moderate slurring of words = 1. Extinction and inattention: Normal = 0. Total score: 1 . Notes: This patient is not a TPA candidate given duration of symptoms of greater than 24 hours.. Impression and Plan This patient had a work-up d one that included labs. Labs are most difficult for positive troponin of 0.83. I reviewed her outpatient MRI. It showed multiple lesions consistent with probable embolic stro kes. I placed a call to our neurologist corporate operations compliance manager and discussed the case with him. He will see the patient in consultation. I also discussed the case with Dr. Echeverria, the patient's service station equipment mechanic. T he patient will not be start ed on heparin given risk of bleeding. She reports no chest pain or discomfort of any type and has otherwise been hemodynamically stable here. Clinical impression: Embolic strokes Dysarthria Positive troponin, possible ACS Calls-Consults - Neurology, Dr. Sharma, recommends Hold Heparin for now to minimize risk. He will consult on patient.. Plan Notes: I yayo Pool, am scribing for, and in the presence of, Yariel Jeffrey MD. This chart is electronically signed by myself, yayo Pool Antonio Davila, MD person ally performed the services described in this documentation, as scribed by Jasper Chapman in my presence, and it is accurate and complete.. Electronically Signed By: Yariel Jeffrey MD On 10/25/19 01:48 Co Signature By: Modify Signature By: Jasper Chapman On 10/24/19 20:39 Discharge Summaries Results Value Date Source Discharge Summary Patient: JOSEPH VALDIVIA MA 06/03/2020 [facility] Age: 79 years Sex: F : 1940 Active Ins urance: MEDICARE [id number] [facility] Admitting MD: Helen Black MD Location: [facility] C5A: C528: 01 PCP: Carol Ruff MD Author: Helen Black MD Admission Information Admit Date: 05/31/20 08:15 Discharge/Transfer Date: Discharge Diagnosis Diagnosis this visit: Consultants None Procedures and Studies Ex lap BSO, omentectomy Reason for Admission ovarian cancer Hospital Course Tolerated procedure well. Significant Findings Common Labs - This Encounter, Most Recent, Last 24 hours No qualifying data available. Procedures and Treatment Provided surgery per above Objective Vitals and Measurements T: 36.3 C (Oral) TMIN: 36.3 C (Oral) TMAX: 37 C (Oral) HR: 66 RR: 17 BP: 115/60 SpO2: 91% Oxygen Method: Room air Physical Exam Gen NAD, AAO Abd NTND, incision cdi Ex no edema, NT Lab Results Common Labs - All Encounters, All Results, Last 1 month Last Month Basic Metabolic Panel: Hematology: Sodium: 133 (06/02/20) Hgb: 9.2 (06/02/20) Potassium: 4.1 (06/02/20) HgbA1C: ------ Phosphorus: ------ WBC: 5.5 (06/02/20) Mg: ------ Plt: 159 (06/02/20) BUN: 13 (06/02/20) INR: 1.09 (05/31/20) Creatinine: 0.63 (06/02/20) Creatinine Clearance: ------ Additional - Last Month Ab Screen: Neg (05/31/20) ABORH: O POS (05/31/20) ABS Baso: 0.0 (06/02/20) ABS Eos: 0.1 (06/02/20) ABS Lymph: 0.8 (06/02/20) ABS Macon: 0.6 (06/02/20) ABS Neut: 3.9 (06/02/20) Anion Gap: 10 (06/02/20) Baso.: 0.3 (06/02/20) Calcium: 8.0 (06/02/20) CBC Scan: Auto Diff (06/02/20) Chloride: 101 (06/02/20) CO2: 26 (06/02/20) COVID19 Source: Nasal washing (05/25/20) COVID19/SARS-CoV-2 Result: Negative (05/25/20) Crossmatch Performed: Performed (05/31/20) eGFR Afr/Amer: >60 (06/02/20) eGFR Non- Am: >60 (06/02/20) Eos.: 2.6 (06/02/20) Glucose Level: 101 (06/02/20) Hct: 28.2 (06/02/20) Lymphs: 14.9 (06/02/20) MCH: 32.7 (06/02/20) MCHC: 32.7 (06/02/20) MCV: 99.9 (06/02/20) Monos.: 11.2 (06/02/20) Neuts: 71.0 (06/02/20) PT: 12.5 (05/31/20) RBC: 2.83 (06/02/20) RDW: 15.8 (06/02/20) XM Interp: Compatible (05/31/20) Condition on Discharge stable Discharge Plan Discharge Medications Medications to Continue 1. amLODIPine(amLODIPine) 2.5 mg By mouth every morning 2. famotidine(famotidine) 20 mg By mouth every bedtime 3. atorvastatin(atorvastatin) 20 mg By mouth ev amira bedtime 4. warfarin.(warfarin) 5 mg By mouth every Wedn esday 5. aspirin(aspirin) 81 mg By mouth every mornin g 6. carvedilol(carvedilol) 6.25 mg By mouth twic e daily with meals 7. gabapentin(gabapentin) 100 mg By mouth every bedtime 8. melatonin(melatonin) 9 mg By mouth every bed time 9. enoxaparin(enoxaparin) 60 mg subcutaneously twice daily with meals 10. multivitamin with polygraph examiner als(Centrum Silver Women's oral tablet) 1 Tab By mouth once daily 11. warfarin.(warfarin) 10 mg By mouth once daily Special Instructions: DAILY EXCEPT WEDNESDAY 12. citalopram(citalopram) 10 mg By mouth every morning 13. senna(senna) 17.2 mg By mouth once daily as needed for constipation 14. guaiFENesin(guaiFENesin 600 mg oral tablet, extended release) 600 mg= 1 Tab By mouth twice daily with meals as needed for Cough 15. saccharomyces boulardii(Florastor) 250 mg By mouth twice daily with meals 16. cholecalciferol(Vitamin D3 5,000 Unit oral capsule) 5,000 Unit= 1 Cap By mouth Cap once daily Special Instructions: with food 17. calcium-vitamin D(Calci um 600 +D Tab) 1 Tab By mouth Tab three times daily 18. cyanocobalamin(Vitamin B12 50 mcg oral tablet) 50 mcg= 1 Tab By mouth Tab every morning Discontinued Meds Discharge Disposition Home Discharge Diet Reg diet Discharge Activity No lifting over 10 lb No baths or swimming Pelvic rest Discharge Follow-up Instructions 1-[address] Black Time spent with Patient 15 min Electronically Signed By: Helen Black MD On 06/03/20 10:46 Co Signature By: Modify Signature By: Discharge Summary Patient: JOSEPH VALDIVIA MA 12/16/2019 [facility] Age: 79 years Sex: F : 1940 Active Ins urance: MEDICARE [phone] 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 Black ID - Dr. Ibis marsh Neurology - Dr. Rod Cardiology - Dr. Carlisle Procedures and Studies Ovarian Mass Biopsy - 12/07/2019 Radiology - Full Interpretation, This Encounter Name: JOSEPH VALDIVIA Account: [id number] : 1940 Result Date: 12/13/19 12:02 Verified By: Nelson Hurt MD at 12/13/19 12:26 Report : CT Abdomen+Pelvis w IV Con EXAM: CT Abdomen+Pelvis w IV Con IMPRESSION: Mild colitis may present. T here also appears be mild cystitis with findings concerning for involvement of the right renal collecting system is well. Interval evolution of bilat eral renal infarcts as well as the splenic infarcts. Likely a large right ovarian complex cystic lauren plasm again noted. Small amount abdominal asci marcelle.. Increased enhancement of the gallbladder which may be related to varices. Trace abdominal ascites as well as small right pleural effusion trace left pleural effusion. Mild prominence of the panc reatic head and uncinate process which may represent mild acute pancreatitis. Consider follow-up in 6 months to ensure resolution/stability. 12/13/19 12:11 +++++++++++++++++++++++++++++++++++++++++++++++ ++++++++ Result Date: 12/11/19 22:09 Verified By: Graham Diaz MD at 12/11/19 23: 07 Report : MR Brain wo+w Con IMPRESSION: Multifocal punctate acute i nfarcts of the cerebral anterior middle cerebral arterymiddle cerebral artery watershed regions which may be related to significant carotid disease. Punctate infarcts of the cerebellum are also noted.Fo nilo infarction of the left hippocampus. Signal change of the mesial left temporal lobe region may be related to edema from infarction but this presentation can also be associ ated with herpes encephaliti s. Clinical correlation is recommended.Chronic white matter microvascular ischemic change.Focal encephalomalacia of the left cerebral hemisphere related to remote infarct. Scattered punctate low sign al foci of the cerebral hemispheres on gradient echo imaging suggestive for cerebral amyloid angiopathy.Expansile mucous retention cyst of the right frontal sinus. Findings were discussed with Nurse Pop 12/11/19 20 9:58 pm. CALLBACK at Dec 11 2019 11:0 2PM PST by teressa:IN Patient: Dr Zepeda discussed with Nurse Peace HOWE at 10:58 PM PDT Report Dictated by Radiologist: GRAHAM DIAZ M.D. Diplomate [place] [employer] Requisition#: [id number] Electronically Signed by WILBERT DIAZ 2019-12-11 23:07:07.22Transcribed by: [email or web address] 12/11/19 23:07 +++++++++++++++++++++++++++++++++++++++++++++++ ++++++++ Result Date: 12/10/19 11:58 Verified By: Daren Richard DO at 12/10/19 12:11 Report : CT Head wo Con EXAM: CT Head wo Con IMPRESSION: 1. Probable old left cerebellar infarct 2. Atrophy 3. Nonspecific white matter changes 4. Atherosclerosis 5. Probable sinusitis of th e frontal, ethmoid, and sphenoid sinuses. The thinning of the bone in the frontal region should be assessed to exclude an underlying neoplasia. 12/10/19 12:04 +++++++++++++++++++++++++++++++++++++++++++++++ ++++++++ Result Date: 12/05/19 17:33 Verified By: Rolando Ortiz MD at 12/07/19 14 :20 Report : CT Drainage Visceral/Organ EXAM: CT Drainage Visceral/Organ CLINICAL HISTORY: ovarian m ass. History of multiple CVAs. Appearance concerning for malignancy with possible metastatic disease. Patient is a poor operative candidate. Request biopsy PROCEDURE: CT guided right ovarian cystic mass biopsy INTERVENTIONAL RADIOLOGIST: Rolando Ortiz MD COMPLICATIONS: No immediate or apparent ESTIMATED BLOOD LOSS: None MEDICATIONS: 1 mg intraveno us Versed, 25 mcg intravenous fentanyl . 4 mL local 1% lidocaine DLP: 818.32 mGy*cm CTDI: 15.6 mGy START TIME/END TIME: 30 minutes IMPRESSION: Uncomplicated CT-guided right ovarian cystic ma ss biopsy. Final pathology results pending at the time of this dictation 12/07/19 14:16 +++++++++++++++++++++++++++++++++++++++++++++++ ++++++++ Result Date: 12/05/19 17:08 Verified By: Otoniel Martin MD at 12/05/19 17 :43 Report : CT Head wo Con EXAM: CT head without IV contrast IMPRESSION: 1. No acute intracranial ab normality. No CT evidence of intracranial hemorrhage. No CT evidence of acute intracranial injury. 2. Generalized cerebral vol ume loss and chronic microvascular ischemic changes as above. 12/05/19 17:39 +++++++++++++++++++++++++++++++++++++++++++++++ ++++++++ Result Date: 12/02/19 15:24 Verified By: Greg Turpin MD at 12/03/19 07 :40 Report : US Pelvic Non OB EXAM: US Pelvic Non OB IMPRESSION: Complex primarily cystic ma ss pelvis. Neoplasm must be excluded. 12/03/19 07:38 +++++++++++++++++++++++++++++++++++++++++++++++ ++++++++ Result Date: 11/29/19 14:10 Verified By: Otoniel Martin MD at 11/29/19 15 :21 Report : XR Lumbar Puncture Diagnostic w Guide EXAM: XR Lumbar Puncture Diagnostic w Guide Fluoroscopy time: 8 seconds. DAP 121.6 IMPRESSION: Technically successful fluo roscopic guided lumbar puncture without immediate postprocedural complications. 11/29/19 15:18 +++++++++++++++++++++++++++++++++++++++++++++++ ++++++++ Result Date: 11/29/19 08:25 Verified By: Barbra Calvert DO at 11/29/19 09:02 Report : MR Orb/Face/Neck wo Con EXAM: MR Brain wo Con, MR Orb/Face/Neck wo Con IMPRESSION: 1. Innumerable acute emboli c infarcts most prominent in the right occipital lobe and bilateral cerebellum, new compared to 11/05/2019. No associated hemorrhage. 2. Normal MRI orbits. 11/29/19 08:47 +++++++++++++++++++++++++++++++++++++++++++++++ ++++++++ Result Date: 11/29/19 08:25 Verified By: Barbra Calvert DO at 11/29/19 09:02 Report : MR Brain wo Con EXAM: MR Brain wo Con, MR Orb/Face/Neck wo Con IMPRESSION: 1. Innumerable acute emboli c infarcts most prominent in the right occipital lobe and bilateral cerebellum, new compared to 11/05/2019. No associated hemorrhage. 2. Normal MRI orbits. 11/29/19 08:47 +++++++++++++++++++++++++++++++++++++++++++++++ ++++++++ Result Date: 11/28/19 15:36 Verified By: Javi Rangel DO at 11/28/19 16:1 0 Report : US Vasc Dplx Matteo Low Ext Bilat EXAM: US Vasc Dplx Matteo Low Ext Bilat IMPRESSION: No evidence of deep venous thrombosis within the bilateral lower extremities. 11/28/19 16:07 +++++++++++++++++++++++++++++++++++++++++++++++ ++++++++ Result Date: 11/28/19 15:35 Verified By: Javi Rangel DO at 11/28/19 16:2 2 Report : US Vasc Dplx Art Low Ext Bilat EXAM: US Vasc Dplx Art Low Ext Bilat IMPRESSION: Arterial findings compatibl e with bilateral mild peripheral arterial disease. No evidence of high-grade stenosis or occlusion. 11/28/19 16:18 +++++++++++++++++++++++++++++++++++++++++++++++ ++++++++ Result Date: 11/28/19 13:56 Verified By: Otoniel Martin MD at 11/28/19 15 :53 Report : CT Abdomen+Pelvis w IV Con EXAM: CT Abdomen+Pelvis w IV Con IMPRESSION: 1. Redemonstration of large ovarian complex cystic lesion which appears overall stable in size measuring up to 12 x 11 cm. This is indeterminate and a malignancy cannot be excluded. 2. Changes of nonspecific c olitis are seen about the left colon and sigmoid colon down to the rectosigmoid. Mild ascites. 3. Stable abnormal appearan ce of the kidneys without evidence of hydronephrosis. Differential considerations again include the sequela of pyelonephritis versus bilateral renal infarcts. 4. Appendix appears within normal limits. No CT evidence of appendicitis. 5.Other findings as detailed above. 11/28/19 15 :36 +++++++++++++++++++++++++++++++++++++++++++++++ ++++++++ Result Date: 11/27/19 19:46 Verified By: Nelson Hurt MD at 11/27/19 20:10 Report : CT Angio Abdomen+Pelvis w Con Exam: CTA Abdomen and pelvis with IV contrast. IMPRESSION: No aortic aneurysm or disse ction. 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 Additionally, there is moderate narrowing of the SMA at t he origin and proximally without jorge alberto stenosis. There are striated appearan ce the bilateral kidneys which may reflect pyelonephritis. However, underlying infarct could also be of consideration especially on the right side. No focal collection identi fied. 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 11/27/19 19:54 +++++++++++++++++++++++++++++++++++++++++++++++ ++++++++ Result Date: 11/27/19 13:34 Verified By: Osbaldo Everett DO at 11/28/19 09:11 Report : XR Foot 3+ Views Rt EXAM: XR Foot 3+ Views Rt IMPRESSION: Degenerative changes. No acute fracture or subl uxation. 11/28/19 09:10 +++++++++++++++++++++++++++++++++++++++++++++++ ++++++++ Result Date: 11/27/19 11:21 Verified By: Osbaldo Everett DO at 11/27/19 14:45 Report : XR Chest 1 View Portable EXAM: XR Chest 1 View Portable IMPRESSION: Nodular density in the left lower lung measuring 1.5 cm. Findings are present on prior CT from 11/04/2019. Continued follow-up is recommended. Over read 11/27/19 14:42 +++++++++++++++++++++++++++++++++++++++++++++++ ++++++++ Reason for Admission CVA Hospital Course Patient is a 79 year old fe male with PMHx significant for previous stroke and DVT currently on Eliquis who presented to the ED on 11/27/2019 with complaints of generalized weakness, nausea, vomiting, an d diarrhea. Per EMS, her fie ld EKG showed ST elevations in 2, 3, and aVF. EMS administered Aspirin and Zofran with some relief. Patient follows with Dr. Echeverria as outpatient. She denies chest pain, abdom inal pain, sor hortness of b reath. Upon arrival patient was hypertensive 166/97. Labs showed WBC 14.1, PT 16.6, AST 40, Alkphos 258, troponin elevated, influenza negative. CTA abd on 11/27/19 showed 'No aortic aneurysm or dissectio n. 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 Additionally, there is moderate narrowing of the SMA at the o rigin and proximally without jorge alberto stenosis. There are striated appearance the bilateral kidneys which may reflect pyelonephritis. However, underlying infarct could also be of consideration especially o n the right side. No focal c ollection identified. Multiple probable infarcts are seen of the spleen which are of indeterminate age but may be chronic. Large cystic ovarian neoplasm noted arising from th e right.' Cardiology saw the patient and there was no indication for angiography or aggressive treatment, including cardiac cath as patient is high risk for repeat stroke. Venous US on 11/28/2019 was neg ative for DVT but there was mild bilateral PAD seen on the arterial doppler on 11/28/19. Neurology was consulted. Brain MRI on 11/29/2019 showed 'Innumerable acute embolic infarcts most prominent in the r ight occipital lobe and bila teral cerebellum, new compared to 11/05/2019. No associated hemorrhage.' There was concern for possible aseptic meningitis, therefore patient underwent lumbar puncture on and ID saw her. CT abd/pe lvis on 11/28/19 revealing large ovarian mass. Reviewed with ID. Posting Clerk onc saw the patient, there was some consideration for surgical debulking, but Cardiology recommended percu taneous biopsy of the mass p yakov to surgical intervention due to her cardiac risk. Follow-up pelvic US on 12/02/19 showed 'Complex primarily cystic mass pelvis. Neoplasm must be excluded'. [id number] measure d at 496. Patient underwent ovarian mass biopsy on 12/07/2019. Pathology revealing high grade mullerian adenocarcinoma. On 12/12 she spiked fevers overnight and had abdominal pain, with tenderness to palpa tion, and difficulty urinati ng. Repeat CT abdomen showing 'Mild colitis present. There also appears be mild cystitis with findings concerning for involvement of the right renal collecting system is well . Interval evolution of bila teral renal infarcts as well as the splenic infarcts. Likely a large right ovarian complex cystic neoplasm again noted. Small amount abdominal ascites. Increased enhancement of the gallbladder which may be related to varices. Trace abdominal ascites as well as small right pleural effusion and trace left pleural effusion. Mild prominence of the pancreatic head and uncinate p rocess which may represent m ild acute pancreatitis.' She was started on Zosyn, with initial improvement in her symptoms. The Patient and patient's sons ultimately decided to proceed with chemot herapy and she underwent her first round on 12/15/19, and tolerated it well, her next round will be in 3 weeks and she will need close follow-up with cytogenetic technician onc. She has remained afebrile but her urine cult ures did show ESBL and ID pl aced the patient on IV Envanz. PICC line was placed on 12/16/19 and she will need to continue IV antibiotics for 1 week as outpatient. Her Anticoagulation were changed from El iquis to To coumadin and her INR was therapeutic at discharge. Patient and patient's family verbalize understanding and are in agreement of discharge plan. She will follow up with Oncology as dominik beasley as cardiology and neurol tabitha as outpt. Family has arranged 24 hour care for the patient. Objective Vitals and Measurements T: 36.4 C (Oral) TMIN: 36.4 C (Oral) TMAX: 36.9 C (Oral) HR: 77 RR: 16 BP: 136/79 SpO2: 98% Oxygen Method: Room air WT: 70 kg Physical Exam GENERAL: Nontoxic HEENT: Normocephalic NECK: supple, no rigidity. LUNGS: No crackles or wheezes. CV: RRR, normal S1/S2, GI: soft, normoactive bowel sounds : no suprapubic or flank tenderness. BACK: no spinal or paraspinal tenderness EXT: no edema SKIN: warm and dry, no ulcerations. NEURO: Cranial nerves 2-12 grossly intact Lab Results Common Labs - All Encounters, All Results, Last 1 month Last Month Lipid Profile: Basic Metabolic Panel: Hematology: Triglyceride: ------ Sodium: 137 (12/16/19) Hgb: 9.4 (12/16/19) Cholesterol Total: ------ Potassium: 4.0 (12/16/19) HgbA1C: ------ HDL Cholesterol: ------ Phosphorus: ------ WBC: 9.1 (12/16/19) LDL Ca (11/30/19) M.8 (11/30/19) Plt: 297 (12/16/19) BUN: 8 (12/16/19) INR: 2.37 (12/16/19) Creatinine: 0.63 (12/16/19) Creatinine Clearance: ------ Additional - Last Month %HDL: 28.7 (11/30/19) A/G Ratio: 0.9 (11/30/19) ABS Baso: 0.0 (12/16/19) ABS Eos: 0.0 (12/16/19) ABS Lymph: 0.4 (12/16/19) ABS Mac[place]: 0.5 (12/16/19) ABS Neut: 8.1 (12/16/19) Albumin: 2.4 (11/30/19) Alkphos: 166 (11/30/19) ALT: 22 (11/30/19) Anion Gap: 12 (12/16/19) Appearance: Cloudy (12/13/19) AST: 45 (11/30/19) Baso.: 0.5 (12/16/19) Bili Total: 0.5 (11/30/19) Blood Glucose, Point of Care: 130 mg/dL () CA 125: 496.0 (12/04/19) Calcium: 8.5 (12/16/19) CBC Scan: Auto Diff (12/16/19) Chloride: 103 (12/16/19) Chol/Tri.40 (11/30/19) Cholesterol: 115 (11/30/19) Cholesterol/HDL: 3 (11/30/19) CK: 243 (11/28/19) CO2: 26 (12/16/19) Cocci IgG: Negative (12/16/19) Cocci IgM: Negative (12/16/19) Color: Yellow (12/13/19) CRP High Sens: 62.34 (11/28/19) CSF Additional Tube Counted: 1 (11/29/19) CSF Color - Spun: No Xantho (11/29/19) CSF Eos: 1 (11/29/19) CSF Glucose: 52 (11/29/19) CSF Lymphs: 0 (11/29/19) CSF Nucleated Count: 114 /uL (11/29/19) CSF Number of Tubes: 4 (11/29/19) CSF Polys.: 99 (11/29/19) CSF Protein: 72 (11/29/19) CSF RBC Count: 80747 /uL (11/29/19) CSF RBC Count, add: 42555 /uL (11/29/19) CSF Slide Comment: See Comment (11/29/19) CSF Source.: Lumbar Puncture (11/29/19) CSF Tube Counted: 3 (11/29/19) CSF Volume: 8.0 (11/29/19) Degmacytes (Bite Cells): 1+ (11/29/19) eGFR Afr/Amer: >60 (12/16/19) eGFR Non- Am: >60 (12/16/19) Eos.: 0.3 (12/16/19) Globulin: 2.6 (11/30/19) Glucose (POCT) Automated: 135 (12/10/19) Glucose Level: 114 (12/16/19) Hct: 28.3 (12/16/19) HDL: 33 (11/30/19) Heparin Anti-Xa, UFH: 0.37 (12/10/19) Hepatitis A AB, IgM: Non-Reactive (11/27/19) Hepatitis Bc Ab, IgM: Non-Reactive (11/27/19) Hepatitis Bs Ag: Non-Reactive (11/27/19) Hepatitis C Ab: Non-Reactive (11/27/19) HSV 1 and/or 2 Antibodies IgM, CSF.: 0.24 ( 01/21) HSV 1/2 Ab Screen IgG, CSF.: <0.34 (12/06/19) Influenza A, PCR: Negative (11/27/19) Influenza B, PCR: Negative (11/27/19) Lactic Acid: 1.1 (12/13/19) LDL/HDL: 2 (11/30/19) Lymphs: 4.8 (12/16/19) MCH: 30.4 (12/16/19) MCHC: 33.2 (12/16/19) MCV: 91.4 (12/16/19) Monos.: 5.6 (12/16/19) Neuts: 88.8 (12/16/19) Plt Est: Adequate (11/29/19) PLT Morph: Normal (11/29/19) Procalcitonin: 0.08 (11/27/19) Protein, Total: 5.0 (11/30/19) PT: 27.0 (12/16/19) PTT: 53.4 (12/07/19) RBC: 3.09 (12/16/19) RBC Morph: See Morphology (11/29/19) RDW: 15.2 (12/16/19) RSV, PCR: Negative (11/27/19) Specific Jasper: 1.043 (12/13/19) Strep A, Rapid Test: Negative (11/27/19) Strep Pneumo Ag, Urine.: Negative (11/29/19) Triglycerides: 82 (11/30/19) Troponin I: 5.99 (11/29/19) UA Squam Epithelial: 0-10 (12/13/19) UA WBC Clumps: Present (12/13/19) UBilirubin: Negative (12/13/19) UBlood: 2+ (12/13/19) UGlucose: Negative (12/13/19) UKetones: Negative (12/13/19) ULeukocyte Esterase: 3+ (12/13/19) UMucous: Rare (12/13/19) UNitrite: Negative (12/13/19) UpH: 6.0 (12/13/19) UProtein: 1+ (12/13/19) URBC: 11-40 (12/13/19) Urine Culture if Indicated: Culture Ordered () Urine WBCs: >150 (12/13/19) VLDL: 16 (11/30/19) VZV PCR Source: CSF (12/04/19) VZV Real-TimePCR: Not Detected (12/04/19) Condition on Discharge stable Discharge Plan Discharge Medications 1. ondansetron(ondansetron 4 mg oral tablet) 4 mg= 1 Tab By mouth Tab every 4 hours as needed for Nausea 5 Day Continued Prescriptions 2. ertapenem(ertapenem 1 gm injection) 1 gm Int ravenous Pwd once daily 7 Day 3. carvedilol(Coreg 6.25 mg oral tablet) 6.25 mg= 1 Tab By mouth Tab twice daily 4. APAP/butalbital/caffeine (Fioricet 325/50/40) 1 Tab By mouth Tab every 6 hours as needed for Headache 5 Day 5. aspirin(aspirin 81 mg or al tablet, chewable) 81 mg= 1 Tab By mouth Tab, Chew once daily 6. warfarin.(warfarin 2.5 m g oral tablet) 2.5 mg= 1 Tab By mouth Tab once daily 30 Day Medications to Continue 7. amLODIPine(amLODIPine 5 mg oral tablet) 5 mg= 1 Tab By mouth Tab once daily 8. atorvastatin(atorvastati n 40 mg oral tablet) 40 mg= 1 Tab By mouth Tab once daily 9. citalopram(citalopram) 10 mg By mouth once d aily 10. senna(senna) 17.2 mg By mouth once daily as needed for constipation 11. docusate(Colace) 100 mg By mouth twice mary jane y 12. guaiFENesin(guaiFENesin 600 mg oral tablet, extended release) 600 mg= 1 Tab By mouth twice daily as needed for Cough 13. saccharomyces boulardii(Florastor) 250 mg B y mouth twice daily 14. cholecalciferol(Vitamin D3 5,000 Unit oral capsule) 5,000 Unit= 1 Cap By mouth Cap once daily Special Instructions: with food 15. calcium-vitamin D(Calci um 600 +D Tab) 1 Tab By mouth Tab three times daily 16. cyanocobalamin(Vitamin B12 50 mcg oral tablet) 50 mcg= 1 Tab By mouth Tab once daily Discontinued Meds apixaban (Eliquis 5 mg oral tablet) 1 Tab By mo uth Tab twice daily bethanechol By mouth Tab three times daily amLODIPine (amLODIPine 2.5 mg oral tablet) 1 Ta b By mouth Tab once daily atorvastatin By mouth once daily Discharge Disposition Discharge Order Details: 12/16/19 13: 08:00 MST, Today, Home with Home Health, once picc and IV abx therapy arranged Discharge Diet Regular Diet Discharge Activity As tolerated Discharge Follow-up Instructions Follow-Up Details: Provider/Org Name: Carol Ruff MD Within: 1 to 3 days Address: ;[id number]; Provider/Org Name: Helen Black MD Within: 1 week Address: [address] [facility] [address] [place] [address];[id number]; Provider/Org Name: Shiva Echeverria MD Within: 1 to 2 weeks Address: [address] [facility] [phone];[phone]; Provider/Org Name: Wilson Mccall MD Within: 1 to 2 weeks Address: [address] [place] [address] [place] [address];[phone]; Time spent with Patient Greater than 34 minutes was spent on coordinating patient's discharge, including med reconciliation, discussing with hospital staff and face to face conversation with the patient and over 50% was spent on face to face with the patient. This document was transcrib ed by neginibbart Ramirez for Provider: Dr. Saunders on 12/16/19. ITito, have revie wed and agree with all documentation in this transcribed note. Electronically Signed By: Tito Saunders MD On 12/16/19 17:04 Co Signature By: Modify Signature By: Zee Ramirez On 12/16/19 13:08 Discharge Summary 11/08/2019 [place] her[place] Patient: JOSEPH VALDIVIA ( EV) [facility] Age: 79 years Sex: F : 1940 Associated Diagnoses: None Author: Aaron Miller MD Discharge Information Admit Date: 11/06/19 12:50 Current Date/Time 11/08/2019 14:30 Diagnosis this visit: Acute embolic stroke (I63.9) 11/06/2019 14:39 Di jw Deep venous thrombosis of le ft popliteal vein (I82.432) 11/06/2019 14:39 Discharge Encephalopathy (G93.40) 11/06/2019 14:39 Dischar ge Elevated troponin (R79.89) 11/06/2019 14:39 [facility] Hospital Course Condition on Discharge Stable. Chief Complaint/Reason for Hospitalization 11/07: DC SUMMARY DICTATED JOB# [id number] 11/08: ok for dc once ins. aut h complete. pt/ot/st recommend acute rehab. cognition still poor. please refer to dc summary from 11/07. please refer to final dc med rec. . Results Review 24 hr Labs Labs (All documented values resulted over the p rior 24 hours..) Chemistry . Objective VS/Measurements Last Documented Vital Signs Vital Signs (Most Recent ) Temp PO Heart Rate Resp Rate 36.9 85 16 (11/08 12:00) (11/08 12:00) (11/08 12:00) Non Invasive BP AdmitWeight CurrentWeight BMI 130 / 79 72.90 72.90 26.74 (11/08 12:00) (11/06 14:14) (11/06 14:14) ( 14:14) Ventilation SaO2 96 (11/08 12:00) General: No acute distress. Eye: Pupils are equal, round and reactive to light, Extraocular movements are intact. HENT: Normocephalic, Oral mucosa is moist. Neck: Supple, Non-tender, No jugular venous dist ention. Respiratory: Lungs are clear to auscultation, Respirations are non-labored, Breath sounds are equal. Cardiovascular: Normal rate, Regular rhythm, No murmur. Gastrointestinal: Soft, Non-tender, Non-distende d, Normal bowel sounds. Neurologic: Alert, Normal se nsory, Normal motor function, No focal defects, Cranial Nerves II-XII are grossly intact. Orientation: To person, To place, To time, poor cognition and short term memory. Psychiatric: Cooperative, Appropriate mood and a ffect. Discharge Plan Allergies Allergies (1) Active Reaction NKA None Documented . Discharge Medications Med Reconciliation Medications to Continue 1. apixaban(Eliquis 5 mg oral tablet) 5 mg= 1 Ta b By mouth Tab twice daily 2. atorvastatin(atorvastatin 20 mg oral tablet) 20 mg= 1 Tab By mouth Tab once daily 3. amLODIPine(amLODIPine 2.5 mg oral tablet) 2.5 mg= 1 Tab By mouth Tab once daily 4. cholecalciferol(Vitamin D 3 5,000 Unit oral capsule) 5,000 Unit= 1 Cap By mouth Cap once daily Special Instructions: with food 5. calcium-vitamin D(Calcium 600 +D Tab) 1 Tab B y mouth Tab three times daily 6. cyanocobalamin(Vitamin B1 2 50 mcg oral tablet) 50 mcg= 1 Tab By mouth Tab once daily Discontinued Meds cyclobenzaprine (cyclobenzaprine 10 mg oral tab let) SUMAtriptan (SUMAtriptan 25 mg oral tablet) 1 Tab By mouth Tab once daily as needed for migraine headache . Discharge Disposition half-way facility. Education and Follow-up Counseled: family. Discharge Planning: Follow-Up Details: Provider/Org Name: Carol Ruff MD Within: 2 to 3 weeks Address: ;[id number]; Provider/Org Name: Wilson Mccall MD Within: 2 to 3 weeks Address: ;[id number]; Provider/Org Name: Kristie Carlisle MD Within: 1 to 2 weeks Address: ;[id number]; , . Comments Time:: More than 30 minutes on discharge day man agement. Electronically Signed By: Aaron Miller MD On 11/08/19 14:32 Co Signature By: Modify Signature By: Discharge Summary 11/07/2019 [place] [facility] DATE OF ADMISSION: 11/06/2019 [facility] DATE OF DISCHARGE: DISCHARGE DIAGNOSES: 1. New acute multi-embolic cerebrovascular accid ent. 2. Acute cognitive impairment secondary to above . 3. Left popliteal vein deep venous thrombosis, a cute. 4. Elevated troponin, appears chronic. 5. Recent cerebrovascular accident 10/23/2019. 6. Left wrist pain, likely strain from a fall. CONSULTANTS: 1. Neurology, Kevin Kee MD. 2. Cardiology, Kristie Carlisle MD. DIAGNOSTIC STUDIES: 1. MRI of the brain without contrast. 2. Bilateral lower extremity venous ultrasound. 3. X-ray of the left wrist. 4. CT of the head without contrast. HOSPITAL COURSE: This is a enrico yanez 79-year-old female who was recently admitted on 10/24/2019 to [facility] for stroke-like symptoms and was diagnosed with acute CVA. She was seen by neurology and cardiology . She was diagnosed with embolic cerebrovascular accident. She had a AMBER, which showed a small PFO, no thrombus and initially lower extremity Doppler showed a chronic left po pliteal DVT and the left sap henous vein thrombus. She was started on Eliquis and discharged home on 10/27. She followed up with Dr. Mccall as an outpatient. She apparently had been doing better with her memory and vision; however, she started having vision issues and cognitive issues on 11/04, again was brought back into the hospital. Troponin was still mildly elevated. Cardiology saw the patient and felt this is a chronic issue and no acute intervention needed. She had a CT angiogram of the chest on 11/04, which was negative. CT of the head was unremarkable. MRI of the brain was done again on 11/05 , which showed several multi ple supra and infratentorial small punctate areas consistent with multiple acute infarcts seen within the cerebellar area. No evidence of hemorrhage or shift. Patient, after these findings for some reas on, was actually discharged home; following morning, we readmitted the patient as a direct admit to telemetry floor. She was having wrist pain. We obtained an x-ray of the wr ist that was negative for fr acture or malalignment, shows osteopenia. She likely had it on prior fall before this admission. Recommend a splint and rest, elevation. Lower extremity venous Dopplers were repeated, which showed posit gisella left calf DVT. Repeat CT of the head without contrast shows no new hemorrhage and stable infarcts. Discussed with neurology and cardiology. Cardiology does not feel that these new strokes were relat ed to a paradoxical embolus from the DVT in the PFO. They feel likely it is related to occult arrhythmia, such as atrial fibrillation. They did not feel it is failure of Eliq uis since she has been on it less than 5 days according to cardiology. At this point, we will continue her on the Eliquis, continue her on the statin, continue low-dose lisinopril. She was not doing wel l at home and she lives at [facility] alone. She has cognitive issues. I would recommend acute rehab for aggressive speech therapy for cognition, as well as continued PT and OT therapy. She will need outpatie nt followup with Dr. Chyna quiñonez from cardiology, as well as neurology, Dr. Wilson Mccall. PHYSICAL EXAMINATION: VITAL SIGNS: Today, temperat ure 37.1, pulse 88, respirations 16, blood pressure 135/79, O2 sat 92% on room air. CARDIOVASCULAR: S1, S2. PULMONARY: Clear to ausculta tion bilaterally. No wheezes, rales, or rhonchi noted. GASTROINTESTINAL: Soft, nontender, positive quang l sounds. NEUROLOGIC: She does have co gnitive impairment and short-term memory issues. Outpatient with cardiology, she will need a Holter monitor to evaluate for occult arrhythmia. Please refer to final discharge medication reconciliation list. Please refer to final discha rge instructions. Please note that greater than 30 minutes was spent in the coordination of this patient's discharge. Case discussed with the patient's son over the phone. Dictated by: AARON MILLER MD /FAA /NTS Doc: [id number] Job: [id number] cc: Electronically Signed By: Aaron Miller MD On 11/08/19 07:15 Co Signature By: Modify Signature By: Discharge Summary 11/07/2019 [place] her[place] Patient: JOSEPH VALDIVIA ( EV) [facility] Age: 79 years Sex: F : 1940 Associated Diagnoses: None Author: Aaron Miller MD Discharge Information Admit Date: 11/06/19 12:50 Current Date/Time 11/07/2019 10:46 Diagnosis this visit: Acute embolic stroke (I63.9) 11/06/2019 14:39 Di scharge Deep venous thrombosis of le ft popliteal vein (I82.432) 11/06/2019 14:39 Discharge Encephalopathy (G93.40) 11/06/2019 14:39 Dischar ge Elevated troponin (R79.89) 11/06/2019 14:39 Disc harge Hospital Course Chief Complaint/Reason for Hospitalization DC SUMMARY DICTATED JOB# [id number] . Results Review 24 hr Labs Labs (All documented values resulted over the p rior 24 hours..) Hematology WBC 16.80H Hgb 13.10 Hct 37.90 Plt 113.00L Chemistry Na 132.00L K 3.70 Cl 100.00 CO2 22.00L Gluc 111.00H Bun 11.00 Cr 0.65 Ca 8.20L Anion Anion Gap 14.00 (11/07 07:14) . Objective VS/Measurements Last Documented Vital Signs Vital Signs (Most Recent ) Temp PO Heart Rate Resp Rate 37.1 88 16 (11/07 07:45) (11/07 07:45) (11/07 07:45) Non Invasive BP AdmitWeight CurrentWeight BMI 135 / 79 72.90 72.90 26.74 (11/07 07:45) (11/06 14:14) (11/06 14:14) ( 3 14:14) Ventilation SaO2 93 (11/07 07:45) Discharge Plan Allergies Allergies (1) Active Reaction NKA None Documented . Education and Follow-up Discharge Planning: Follow-Up Details: Provider/Org Name: Carol Ruff MD Within: 2 to 3 weeks Address: ;[id number]; Provider/Org Name: Wilson Mccall MD Within: 2 to 3 weeks Address: ;[id number]; Provider/Org Name: Kristie Carlisle MD Within: 1 to 2 weeks Address: ;[id number]; , . Electronically Signed By: Aaron Miller MD On 11/07/19 10:46 Co Signature By: Modify Signature By: Discharge Summary Patient: JOSEPH VALDIVIA MA 11/05/2019 [facility] Age: 79 years Sex: F : 1940 Active Ins urance: MEDICARE [phone] 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) 11/04/2019 23:38 Dischar ge History of CVA (cerebrovascular acciden t) (Z86.73) 11/04/2019 23:33 Discharge Popliteal DVT (deep venous thrombosis) (I82.439 ) 11/04/2019 23:38 Discharge Hypertension (I10) 11/04/2019 23:33 Discharge Elevated troponin (R79.89) 11/05/2019 02:54 Dis charge Procedures and Studies MRI of the brain without contrast CT angiogram of the chest with contrast CT of the head without contrast Reason for Admission Headache and vision disturbances Hospital Course Patient is a 79 year old fe male with PMHx significant for recent CVA 2 weeks ago requiring hospitalization started on Eliquis, HTN and hyperlipidemia who presented to the ED on 11/04/2019 with complaints of increased fatigue and wo rsening headache, blurry vision beginning this morning. Patient was admitted by my partner on 10/24/2019 for stroke like symptoms and diagnosed with CVA. During that admission she was seen by Dr. Linnea navarro and Dr. Carlisle. She was diagnosed with Embolic stroke, PFO, chronic left popliteal DVT and left saphenous venous thrombosis and started on Eliquis. Pt was discharged on the 10/27/19 and followed up with Dr. Mccall since discharge. Family member reports since discharge on 10/27/2019 patient had been doing well with memory and vision up until this morning. Patients family member at bedside to assist with additional history. Patient was having vision changes and was unable to see the clock in her bedroom, difficulty using household items including the TV remote. Patient also notes decreased appetit e, as well as a headache. She states she usually doesnt get headaches but noticed this headache was worse with lights and better in the dark. Denies fever, chills, cough or s putum production. patient sa id she went to the chiropractor the day prior to admission, but states no manipulations were done. Upon arrival to ED, patient was hypertensive at 159/88. She had an elevated troponin of 0.90. She appea rs to have had elevated troponins during her last admission, she was seen by cardiology who felt it was not an NSTEMI but a noncardiac trop leak. The ER physician spoke with Dr. Carlisle, who felt this was likely her baseline. a CTA chest was ordered to rule out any PE or dissection which was negative. [1] 11/05/2019: Patient states he r vision is fine. No chest pain or shortness of breath. MRI of the brain is pending. If unremarkable for acute findings she can likely be discharged home. 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 Cardiology does not feel she is having acute cardiac event. Suspect residual troponin leak. Clinically stable. Please refer to final discharge medication recon ciliation list. Please for final discharge instr uctions below. Objective Vitals and Measurements T: 36.7 C (Oral) TMIN: 36.6 C (Oral) TMAX: 37 C (Oral) HR: 89 RR: 16 BP: 153/82 SpO2: 98% WT: 72.9 kg Physical Exam GEN: No acute distress, alert and oriented x 3 HEENT: oropharynx clear, mucous membranes moist NECK: supple, no jugular venous distention CV: regular rate and rhythm, no rubs or gallops PULM: clear to auscultation bilaterally, normal respiratory excursion ABD: soft, nontender, nondi stended, normoactive bowel sounds, no guarding or rebound. EXTR: no cyanosis, clubbing or edema NEURO: Non-focal, moves all extremities Lab Results Common Labs - This Encounter, Most Recent, Last 24 hours Last 24 Hours Hematology-CBC 11/05/19 Coag 11/05/19 General Chemistry 11/05/19 WBC:11.2 (H) INR: 1.76 Sodium: 137 RBC: 4.14 PT:20.1 (H) Potassium: 3.7 Hgb: 13.1 PTT: 31.8 Chloride: 101 Hct: 38.8 CO2: 25 MCV: 93.9 Anion Gap: 15 MCH: 31.6 Glucose Level: 96 MCHC: 33.7 BUN:9 (L) RDW: 13.0 Creatinine: 0.66 Plt: 154 eGFR Non- Am: >60 Neuts: 78.9 eGFR Afr/Amer: >60 Lymphs:9.7 (L) Calcium: 8.8 Monos.: 9.3 M.6 Eos.: 1.1 Protein, Total:6.2 (L) Baso.: 1.0 Albumin: 3.5 ABS Neut:8.8 (H) Globulin: 2.7 ABS Lymph: 1.1 A/G Ratio: 1.3 ABS [place]: 1.0 Bili Total: 0.6 ABS Eos: 0.1 ALT: 22 ABS Baso: 0.1 AST:36 (H) CBC Scan: Auto Diff Alkphos: 110 POC Glucose 11/05/19 Cardiac 11/05/19 Glucose (POCT) Automated: 87 Troponin I:0.87 (!) Additional No qualifying data available. Diagnostic Results Radiology - Full Interpretation, This Encounter Name: JOSEPH VALDIVIA Account: [id number] : 1940 Result Date: 11/04/19 21:35 Verified By: Acacia Haddad MD at 11/04/19 21:20 Report : CT Angio Chest w Con [facility] Final Report Clinical History and Study Details: elevated tr op, SOB Contrast Information: isovue 370 75cc's TECHNIQUE: Clinical Event : ELEVATED TROP, SOB HX STROKE Thin section axial images f rom thoracic inlet to upper abdomen during injection of intravenous contrast. 3D reformatted MIP images obtained. FINDINGS: Comparison made to previous study dated 10/24/19 20 Evaluation of pulmonary art eries and distal branches show no evidence of pulmonary embolus. The thoracic aorta shows no dissection or aneurysm. 1.4 cm nodule in superior segment of LLL with central nilo cification. Micronodular inf iltrates in RUL and RLL adjacent to major fissure. No axillary or mediastinal adenopathy seen. Visualized portion of upper abdomen show no significant abnormalities. IMPRESSION: No PE. No aortic dissection. Micronodular infiltrates in RUL and RLL. Follow up. Probable granuloma or hamartoma in LLL. Report Dictated by Radiologist: ACACIA HADDAD M.D. Diplomate [place] [employer] [facility] Requisition#: [id number] Electronically Signed by FOUZIA HADDAD 2019-11-04 21:20:48.33Transcribed by: [email or web address] 11/04/19 21:20 +++++++++++++++++++++++++++++++++++++++++++++++ ++++++++ Result Date: 02/01/20 20:07 Verified By: Nelson Hurt MD at 11/04/19 20:16 Report : CT Code Stroke Head 2/Bleed EXAM: CT Code Stroke Head 2/Bleed CLINICAL HISTORY: MUNOZ, recent cva, vision change s . COMPARISON: 10/25/2019 TECHNIQUE: Transaxial image s were obtained from the skull base to the vertex without contrast. All CT scans at this hospital employ automatic and/or manual dose reduction techniques to keep radiation dose as low as reasonably achievable. FINDINGS: There is no evidence of acu te intracranial hemorrhage, midline shift, abnormal extra-axial fluid collection, or mass lesion. The ventricles and sulci are normal for patient's age. The connelly-white matter differentiation is preserved. Mild mucosal thickening of the right maxillary sinus with sclerotic appearance of the right maxillary sinus napier. Mild mucosal thickening the ethmoid air cells. Near-complete opacification the right f rontal sinus with thinning o f the right lateral wall. Mastoid air cells appear well aerated. Calvarium is grossly intact. IMPRESSION: No radiographic acute intra cranial abnormality. Possible mucocele within the right frontal sinus. 11/04/19 20:14 +++++++++++++++++++++++++++++++++++++++++++++++ ++++++++ Condition on Discharge Stable Discharge Plan Discharge Medications Medications to Continue 1. apixaban(Eliquis 5 mg oral tablet) 5 mg= 1 T ab By mouth Tab twice daily 2. cyclobenzaprine(cycloben zaprine 10 mg oral tablet) Special Instructions: TK 1 T PO TID PRN 3. atorvastatin(atorvastati n 20 mg oral tablet) 20 mg= 1 Tab By mouth Tab once daily 4. amLODIPine(amLODIPine 2. 5 mg oral tablet) 2.5 mg= 1 Tab By mouth Tab once daily 5. SUMAtriptan(SUMAtriptan 25 mg oral tablet) 25 mg= 1 Tab By mouth Tab once daily as needed for migraine headache Special Instructions: may repeat dose after 2 hours up to a maximum of 200 mg in 24 hours 6. cholecalciferol(Vitamin D3 5,000 Unit oral capsule) 5,000 Unit= 1 Cap By mouth Cap once daily Special Instructions: with food 7. calcium-vitamin D(Calcium 600 +D Tab ) 1 Tab By mouth Tab three times daily 8. cyanocobalamin(Vitamin B 12 50 mcg oral tablet) 50 mcg= 1 Tab By mouth Tab once daily Discontinued Meds Discharge Disposition Discharge Order Details: 11/05/19 10:05:00 MST, Today, Ho me or self care Discharge Diet Discharge Diet Order Details: 11/05/19 10:05:00 MST, Regular d iet Discharge Activity Discharge Activity Order Details: 11/05/19 10:05:00 MST, Faina thompson jose a Discharge Follow-up Instructions Follow-Up Details: Provider/Org Name: Carol Ruff MD Within: 1 to 3 days Address: ;[id number]; Provider/Org Name: Wilson Mccall MD Within: 1 week Address: ;[id number]; Time spent with Patient Greater than 30 minutes [1] Admission H and P; Tito Saunders MD 11/04/19 23:17 MST Electronically Signed By: Aaron Miller MD On 11/05/19 10:51 Co Signature By: Modify Signature By: Discharge Summary Patient: JOSEPH VALDIVIA MA 10/27/2019 [facility] Age: 79 years Sex: F : 1940 Active Ins urance: MEDICARE [phone] [facility] Admitting MD: Cleopatra Larkin MD Location: [facility] IPOA: IPOA: 08 PCP: Carol Ruff MD Author: Isaiah Larkin MD Admission Information Admit Date: 10/24/19 22:47 Discharge/Transfer Date: 10/26/19 18:40 Discharge Diagnosis Diagnosis this visit: HLD (hyperlipidemia) (E78.5) 10/25/2019 03:58 D ischarge Stroke (I63.9) 10/25/2019 03:58 Discharge Elevated troponin (R79.89) 10/25/2019 03:58 Dis charge HTN (hypertension) (I10) 10/25/2019 03:58 Disch arge Dysarthria (R47.1) 10/25/2019 03:59 Discharge Acute embolic stroke (I63.9) 10/25/2019 13:56 D ischarge Acute superficial venous th rombosis of left lower extremity (I82.812) 10/26/2019 13:55 Discharge Deep venous thrombosis of l eft popliteal vein (I82.432) 10/26/2019 13:54 Discharge Consultants Cardiology: Dr. Thi Frye Neurology: Dr. Sharma Procedures and Studies Study Conclusions 1. Left ventricle: Systolic function was normal . Wall motion was normal; there were no regional wall motion abno rmalities. 2. Aortic valve: No evidence of vegetation. Mil d regurgitation. 3. Mitral valve: No evidence of vegetation. Mil d regurgitation. 4. Left atrium: No evidence of thrombus in the atrial cavity or appendage. 5. Right atrium: No evidence of thrombus in the atrial cavity or appendage. 6. Atrial septum: Agitated saline bubble study positive for PFO/ASD. 7. Tricuspid valve: No evidence of vegetation. 8. Pulmonic valve: No evidence of vegetation. [ 1] Reason for Admission Stroke Hospital Course This is a very pleasant 79- year-old female with a PMH of migraines, hypertension, and HLD. She reports that 4 days ago she was having some difficulty with word finding, and so she went to her PCP who o rdered a MRI of her brain as well as carotid ultrasound. Her carotid ultrasound showed no significant stenosis on the right or the left, her MRI brain showed positive for stroke in a couple of different areas. Her MRI brain was se nt to Dr. Mccall who is her neurologist, and he advised that she come into the hospital to [facility] for further evaluation as well as a head CT. The patient reports that she has had gradual improvement in h er speech and improvement with word finding. She denies any weakness on one side of her body or the other, facial droop, slurred speech, any changes in vision, any recent fal ls or head trauma. She state s that she was a smoker for about 20 years but quit in 1979. She also reports that her grandmother had a stroke. The patient reports that she did take a full aspirin at home today, but has not taken her statin. Course: Patient was evaluated by ne urology requested a cardiology evaluation for possible AMBER. This was performed and there was a PFO. Patient was also evaluated for DVTs which in the presence of the PFO could cause this multifocal embol ic stroke. There was a chronic appearing left popliteal DVT but with a question of superimposed small area of free-floating thrombus per radiology read. There is also left sa phenous superficial venous t hrombosis. Given the embolic appearance of her stroke, the presence of the PFO, and the presence of deep and superficial venous thromboses it was decided that her risk of fut ure stroke was best mitigate d via anticoagulation as opposed to antiplatelet treatment only. The patient was started on Eliquis and was discharged home in stable condition after evaluation by physical o ccupational and speech thera py. Speech therapy did recommend ongoing therapy as an outpatient for cognition as well as aphasia. The aphasia was probably significant lasting deficit related to the stroke that by the time of dischar ge. She will follow-up outpatient with cardiology for implanted loop recorder due to concern for paroxysms of A. fib and she will follow-up with her primary neurologist Dr. Mccall as well. Objective Vitals and Measurements T: 36.5 C (Oral) RR: 18 BP: 132/76 SpO2: 97% Ox ygen Method: Room air Physical Exam GEN: No acute distress, alert and oriented x 3 HEENT: oropharynx clear, mucous membranes moist NECK: supple, no jugular venous distention CV: regular rate and rhythm, no rubs or gallops PULM: clear to auscultation bilaterally, normal respiratory excursion ABD: soft, nontender, nondi stended, normoactive bowel sounds, no guarding or rebound. EXTR: no cyanosis, clubbing or edema NEURO: Subtle drooping at t he left side of the mouth, mild word finding difficulties, no other focal neurologic deficits Lab Results Common Labs - All Encounters, All Results, Last 1 month Last Month Lipid Profile: Basic Metabolic Panel: Hematology: Triglyceride: ------ Sodium: 137 (10/25/19) Hgb: 12.2 (10/25/19) Cholesterol Total: ------ Potassium: 3.9 (10/25/19) HgbA1C: 5.3 (10/25/19) HDL Cholesterol: ------ Phosphorus: ------ WBC: 6.7 (10/25/19) LDL Ca (10/25/19) M.9 (10/25/19) Plt: 171 (10/25/19) BUN: 8 (10/25/19) INR: 1.24 (10/24/19) Creatinine: 0.59 (10/25/19) Creatinine Clearance: ------ Additional - Last Month %HDL: 26.3 (10/25/19) A/G Ratio: 1.1 (10/24/19) ABS Baso: 0.1 (10/25/19) ABS Eos: 0.2 (10/25/19) ABS Lymph: 1.1 (10/25/19) ABS [place]: 0.8 (10/25/19) ABS Neut: 4.5 (10/25/19) Albumin: 3.4 (10/24/19) Alkphos: 111 (10/24/19) ALT: 20 (10/24/19) Anion Gap: 12 (10/25/19) AST: 30 (10/24/19) Baso.: 1.1 (10/25/19) Bili Total: 0.4 (10/24/19) Calcium: 8.6 (10/25/19) CBC Scan: Auto Diff (10/25/19) Chloride: 104 (10/25/19) Chol/Tri.62 (10/25/19) Cholesterol: 198 (10/25/19) Cholesterol/HDL: 4 (10/25/19) CO2: 25 (10/25/19) eGFR Afr/Amer: >60 (10/25/19) eGFR Non- Am: >60 (10/25/19) Eos.: 2.9 (10/25/19) Estimated Average Glucose: 105 (10/25/19) Globulin: 3.0 (10/24/19) Glucose (POCT) Automated: 113 (10/25/19) Glucose Level: 102 (10/25/19) Hct: 35.9 (10/25/19) HDL: 52 (10/25/19) LDL/HDL: 2 (10/25/19) Lymphs: 17.0 (10/25/19) MCH: 32.0 (10/25/19) MCHC: 34.1 (10/25/19) MCV: 93.8 (10/25/19) Monos.: 11.8 (10/25/19) Neuts: 67.2 (10/25/19) Protein, Total: 6.4 (10/24/19) PT: 14.1 (10/24/19) PTT: 29.9 (10/24/19) RBC: 3.82 (10/25/19) RDW: 13.5 (10/25/19) Triglycerides: 122 (10/25/19) Troponin I: 0.77 (10/25/19) TSH: 3.569 (10/25/19) VLDL: 24 (10/25/19) Diagnostic Results Radiology - Full Interpretation, This Encounter Name: JOSEPH VALDIVIA Account: [id number] : 1940 Result Date: 10/25/19 18:11 Verified By: Cristofer Sanchez DO at 10/25/19 19: 32 Report : CT Angio Head+Neck w Contrast Exam: CTA Neck and head with IV contrast. INDICATION: embolic acute stroke on outside juan roimaging COMPARISON: Noncontrast head CT from the same d ay TECHNIQUE: Axial CT images were acquired through the neck and head following intravenous contrast with multiplanar reconstruction imaging. 3-D multirotational MIP reconstruction imaging was performed o f the aortic arch, neck and head vasculature was generated at a separate workstation by a technologist to aid in evaluation. CT dose reduction technique utilized: Automated exposure control and/or manual dose reduction techniques to keep radiation dose as low as reasonably achievable. Estimation of percent inter nal carotid arterial stenosis, when present, takes into account estimated diameter at the point of maximum narrowing compared to the diameter of the more distal, normal ICA (based on NASCET criteria). Intravenous contrast: 75CC ISOVUE 370 cc Isovue 370 Findings: Aortic arch and origins cephalic vessels is unr emarkable. Patent right common carotid artery. The right internal carotid artery bulb demonstrates mild intimal thickening and plaque with less than 20 % stenosis. Antegrade flow right internal carotid artery wi thout stenosis or occlusion. Patent cavernous portion right distal internal carotid artery. Normal antegrade flow into a patent [place]. Patent left common carotid artery. The left internal carotid a rtery bulb demonstrates mild calcified and noncalcified plaque with estimated stenosis of 20-30%. Antegrade flow patent left internal carotid art amira. Patent cavernous portion right distal internal carotid artery. Normal antegrade flow into a patent [place]. The right vertebral artery is dominant and shows no areas of atherosclerosis or narrowing. The left vertebral artery is hypoplastic. Portions of the lower left vertebral artery are obscured by the veno us contamination. Along the course of the cervical spine it maintains a normal caliber without visualized narrowing. The distal left vertebral a rtery as it enters the foramen magnum appears to predominantly terminate as the posterior inferior cerebellar artery. A small branch continues on to join the dominant right v ertebral artery. Basilar art amira is normal in caliber without stenosis or aneurysm. The left posterior cerebral artery is intact without narrowing. The right originates from the anterior circulation, nor mal variant also without jj nosis. Tiny posterior communicating artery seen on the left. The middle and anterior cerebral arteries are intact. Mild hypoplastic right A1 segment likely normal variant. An terior communicating artery is intact without aneurysm. Draining venous sinuses are intact. Degenerative changes of the cervical spine with mild bony encroachment seen onto the right C6-C7 neural foramen. Unremarkable appearance to the skull and skull bases. Complete opacification of t he right frontal sinus with surrounding bony thinning but without visualized extension beyond the sinus. Chronic appearance to the right maxillary sinus IMPRESSION: Right and left carotid arteries with mild plaqu e and less than 30% stenosis. Intact intracranial circula tion without evidence of any arterial occlusion, stenosis, dissection or aneurysm. Normal antegrade flow in sanjuanita th vertebral and the basilar artery. Normal posterior fossa circulation. Normal variant partial term ination of the right vertebral artery is the posterior inferior cerebellar artery normal variant origin of the right posterior cerebral artery. 10/25/19 19:22 +++++++++++++++++++++++++++++++++++++++++++++++ ++++++++ Result Date: 10/25/19 18:04 Verified By: Cristofer Sanchez DO at 10/25/19 19: 35 Report : CT Head wo Con EXAM: CT Head wo Con CLINICAL HISTORY: embolic acute stroke. COMPARISON: None TECHNIQUE: Transaxial image s were obtained from the skull base to the vertex without contrast. Coronal reconstruction imaging is generated. The technique utilizes dose reduction adjustment of the mA and/or kV optimized per protocol for the targeted examination and matched to the indication. Dose reduction techniques to keep radiation dose as low as reasonably achievable. FINDINGS: The ventricles, sulci, and cisterns are age rafi ropriate. There is prominent patchy h ypodensity involving the periventricular and subcortical white matter. In the peripheral aspect of the left cerebellum inferiorly is a small area of encephalomalacia has the appearance of old infarct. No focal mass, mass effect, hemorrhage, infarct or abnormal extra-axial fluid collections are noted. The bony calvarium is intac t. Mucosal thickening and prominent hyperostosis involves the visualized portions of the right maxillary sinus. Complete opacification of the right frontal sinus, somewhat ex panded with smooth bony mitali deling. No soft tissue extension beyond the sinus. The mastoid air cells are relatively clear. IMPRESSION: Prominent patchy hypodensit y involving the periventricular and subcortical white matter most compatible with small vessel ischemic change. No acute infarct or bleed identified on current examination. Chronic appearing small left inferior cerebella r infarct. Chronic appearing right fro ntal and right maxillary sinus disease. The right frontal sinus is somewhat expansile with smooth bony remodeling. Could represent mucocele. There is thickening of the wall t issac no extension beyond the wall. 10/25/19 19: 32 +++++++++++++++++++++++++++++++++++++++++++++++ ++++++++ Result Date: 10/25/19 17:28 Verified By: Cristofer Sanchez DO at 10/25/19 17: 52 Report : US Vasc Dplx Matteo Low Ext Bilat EXAM: US Vasc Dplx Matteo Low Ext Bilat CLINICAL HISTORY: thromboembolic event TECHNIQUE: Duplex venous ex amination of both lower extremities was performed using color Doppler imaging. Evaluation of flow dynamics, compressibility and augmentation. FINDINGS: The right leg marguerite p venous systems appear patent. Normal compressibility and flow dynamics are seen bilaterally. No evidence of intraluminal thrombus. The greater saphenous veins bilaterally appear patent. In the left popliteal vein there is an echogenic area of thrombus. The vein wall appears thickened. There appears to be some flow along the distal aspect of the thrombus which is nonocclusive. Occlusiv e superficial thrombophlebitis is seen within th e saphenous vein. IMPRESSION: 1. Nonocclusive small focus of deep venous thrombosis in the left popliteal vein. The findings suggest chronic deep venous thrombosis though there may be superimposed small focus of free floating thrombus along the cephalad portion. 2. Occlusive superficial thrombophlebitis in th e left saphenous vein. The patient's nurse will be contacted regarding the above findings. 10/25/19 17:40 +++++++++++++++++++++++++++++++++++++++++++++++ ++++++++ Result Date: 10/24/19 20:54 Verified By: Des Ace MD at 10/25/19 09:43 Report : XR Chest 1 View Portable EXAM: XR Chest 1 View Portable CLINICAL HISTORY: TIA / Stroke; mental status changes. COMPARISON: No previous studies for comparison TECHNIQUE: Frontal View of the Chest FINDINGS: Heart size is normal. Pulmo nary vasculature is within normal limits. No confluent pneumonia. No pleural effusion. No pneumothorax. IMPRESSION: No acute cardiopulmonary abnormality. 10/25/19 09:42 +++++++++++++++++++++++++++++++++++++++++++++++ ++++++++ Condition on Discharge Stable Discharge Plan Discharge Medications 1. apixaban(Eliquis 5 mg or al tablet) See Instructions Tab Special Instructions: 2 Tab PO BID x 7 days then 1 PO BID thereafter New Prescriptions 2. TNF Medication(Outpatien t ST) See Instructions Special Instructions: ST eval and tx for aphasia, cognition3 x per week for 4 weeks Medications to Continue 3. cyclobenzaprine(cycloben zaprine 10 mg oral tablet) Special Instructions: TK 1 T PO TID PRN 4. atorvastatin(atorvastati n 20 mg oral tablet) 20 mg= 1 Tab By mouth Tab once daily 5. amLODIPine(amLODIPine 2. 5 mg oral tablet) 2.5 mg= 1 Tab By mouth Tab once daily 6. SUMAtriptan(SUMAtriptan 25 mg oral tablet) 25 mg= 1 Tab By mouth Tab once daily as needed for migraine headache Special Instructions: may repeat dose after 2 hours up to a maximum of 200 mg in 24 hours 7. cholecalciferol(Vitamin D3 5,000 Unit oral capsule) 5,000 Unit= 1 Cap By mouth Cap once daily Special Instructions: with food 8. calcium-vitamin D(Calcium 600 +D Tab ) 1 Tab By mouth Tab three times daily 9. cyanocobalamin(Vitamin B 12 50 mcg oral tablet) 50 mcg= 1 Tab By mouth Tab once daily Discontinued Meds glucosamine (glucosamine hy drochloride 1500 mg oral tablet) 1 Tab By mouth Tab once daily biotin By mouth once daily Discharge Disposition Discharge Order Details: 10/26/19 14:01:00 MST, Now, Home or self care Discharge Diet Discharge Diet Order Details: 10/26/19 14:01:00 MST, Regular d iet Discharge Activity Discharge Activity Order Details: 10/26/19 14:01:00 MST, As tolera jose a Discharge Follow-up Instructions Follow-Up Details: Provider/Org Name: Carol Ruff MD Within: 1 to 3 days Address: ;[id number]; Provider/Org Name: Wilson Mccall MD Within: 2 to 3 weeks Address: ;[id number]; Comments: Call for follow up appointment Take a ll medications as prescribed Provider/Org Name: Kristie Carlisle MD Within: As soon as possible Address: ;[id number]; Comments: cardiology f/u fo r loop recorder Call for follow up appointment Take all medications as prescribed Time spent with Patient 35 minutes spent day of discharge [1] Echocardiogram Transesophageal; Ratna Carlisle MD 10/25/2019 11:06 MST Electronically Signed By: Isaiah Larkin MD On 10/27/19 08:49 Co Signature By: Modify Signature By: Isaiah Larkin MD On 10/27/19 08:43 History and Physicals Results Value Date Source History and Physical Patient: JOSEPH VALDIVIA MRN: [id number] 06/18/2020 [facility] Age: 79 years Sex: F : 1940 Active Insu osman: [facility] Admitting MD: Location: [facility] Posting Clerk Onc: : PCP: PCP , Unknown Center Author: Bernice Reese MD Treatment Planning Conference Patient: Joseph Valdivia Date: 06/18/20 Attending Physician: Dr. Black Resident Physician: Dr. Reese Primary Site: Ovarian Histology: Mucinous Grade: Poorly differentiated, high grade Stage: III Pathological: 1.Right ovarian biopsies: - Ovarian mucinous adenocarcinoma 2. Omentum, omentectomy: - Negative for neoplasm - Irregular lobular adipose tissue consistent w ith omentum - Ovary and fallopian tube, right salpingo-ooph orectomy: - Ovarian poorly differentiated mucinous adenoc arcinoma - Maximal tumor diameter 1.6 cm - Treatment effect with nucleocytomegaly, CRS s core 1-2 - Prominent lymphovascular invasion - Focal fallopian tube involvement by poorly di fferentiated mucinous ovarian adenocarcinoma - Tumor positive for MLH1, PMS2, MSH2 and MSH6 - No loss of nuclear expression of MMR proteins : Low probability of microsatellite instability-high - Pathologic stage (pTNM[FIGO]): pT3[III], pN0 - Ovary and fallopian tube, left salpingo-oopho rectomy: - Atrophic ovary negative for neoplasm - Multiple ovarian benign glandular inclusions - Atrophic fallopian tube, negative for neoplas m - Lymph node, left pelvic, lymphadenectomy: - One lymph node negative for neoplasm Comment: Additional special stains are performed on the paraffin block received. A mucicarmine stain is negative for mucin. A PAS with diastase highlights focal cytoplasmic mucin. The neoplasm is negati ve for vimentin. The neoplas m has variable positivity for PAX8 and CEA. A microsatellite instability panel has results as listed above. Special stains received from the referring institution demonstrate d negativity for WT-1 antige n, Napsin A, estrogen receptor, progesterone receptor, SATB2 and CK 20. P53 was expressed in greater than 50 percent of cells as was a Ki-67 labeling index. P16 was only expr essed focally and was mottle d where positive. The tumor was also positive for CK7 and CDX-2. Clinical consultation is held with Dr. Black who relates a history of a BRCA1 mutation and interval chemother apy. While most ovarian carc inomas in this setting are those of a high grade serous variety, borderline mucinous neoplasms as well as mucinous carcinomas have also been described in this setting. Presenting Issues: 79yo who was found to have large complex cystic ovarian neoplasm on CT 12/2019 however due to poor performance status and recent thrombotic events, patient was offered neoadjuvant chemo with carbo/taxo. 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 Underwent e xploratory laparotomy, bilat eral salpingo-ophorectomy, omentecomy, tumor debulking at [facility] on 05/31/20. Notes: Patient had multiple thrombotic events and was unable to obtain medical clearance for sometime and thus neoadjuvant chemo was offered. CA 125 was initially 496>>> mostly rece ntly 33.2. Echo EF 55%, infe rior hypokinesis, mild AI/MR CT 04/19 with multiple new centrilobular nodules in upper lung lobes, right middle lobe and right lower lobe, more consistent with infectious etio logy versus metastatic. Mult ilocular cystic pelvic mass7.3x5.5cm. MRI Brain with multfocal punctate lacunar infarcts. Underwent hysterectomy in 1985 for benign reasons. Has BRCA1 gene deletion Recommendations: Because of BRCA1 gene deletion her genetic testing recommended PARP inhibitor (inhibitors of the enzyme poly ADP ribose polymerase) therapy with olaparib for enhanced progression disease-free survival. Will be placed on olaparib Electronically Signed By: Bernice Reese MD On 06/18/20 08:05 Co Signature By: Modify Signature By: History and Physical 12/16/2019 Chapito alvarez Patient: JOSEPH VALDIVIA ( EV) [facility] Age: 79 years Sex: F : 1940 Associated Diagnoses: None Author: Audra Villarreal MD Basic Information Date of Service: 12/16/2019 22:08, 12/16/2019 22:08. Admission Information: Admit Days = 20, Patient Type = Inpatient . Impression and Plan Diagnosis .. Subjective: Covering for . ID reconsulted because of ESBL E.coli UTI. Patient is feeling better. No fever or chills to day. She denies burning with urination, flank pain. Objective: Vital Signs reviewed and afebrile General: comfortable, non-toxic. HEENT: Anicteric, moist oral mucosa Cardiovascular: RRR, S1, S2 Chest: CTA bilaterally, no wheezing, no labored breathing at rest Abdomen: +BS, Nontender, nondistended, Soft. Extremities: no edema or cyanosis. Skin: no rash/petechia CBC,BMP, radiology and cultures were reviewed IMPRESSION: ESBL E.coli UTI Fever, secondary to above. Resolved. Leukocytosis Recurrent CVA. -elevated troponin -Hx of DVT -Large ovarian mass with zunilda vated cancer markers, path revealing high grade mullerian adenocarcinoma,on chemo, immunocompromised patient Aseptic meningitis PLAN: Recommend iv Ertapenem for 7 days. Ok to discharge from ID perspective. D/w . place picc for iv antibiotics. contact isolation Patient agreed with above plan. Also d/w her sons. D/w RN at bedside. Thank you. Will follow. Please call if any quest ions. . Health Status Allergies: Allergic Reactions (Selected) NKA Current medications: Antibiotic Info Ordered ertapenem: 1 gm, IV, qDay 12/16/19 12:54 - Acti ve ( 1 days ) ertapenem: 1,000 mg, IV Push, qDay 12/16/19 12: 51 - Active ( 1 days ) Inactive acyclovir: 720 mg, IV, q8hr 11/27/19 17:25 - 08:57 ( 8 days ) acyclovir: 370 mg, IV, q12hr 12/04/19 08:57 - 0 12/05/19 15:26 ( 2 days ) meropenem: 1,000 mg, IV, q8 hr(inter 12/15/19 18:04 - 12/16/19 12:51 ( 2 days ) piperacillin-tazobactam: 3. 375 gm, IV, q8hr 12/13/19 10:16 - 12/15/19 18:04 ( 3 days ) , Scheduled amLODIPine 2.5 mg Tab: 5 mg, PO, qDay aspirin 81 mg Chew Tab: 81 mg, PO, Daily atorvastatin 40 mg Tab: 40 mg, PO, qDay ca carb/vit D 500mg rosebud/200 I 1 Tab, PO, BID carvedilol 3.125 mg Tab: 6.25 mg, PO, BID citalopram 10 mg tab: 10 mg, PO, Daily cyanocobalamin 100 mcg Tab: 50 mcg, PO, qDay ertapenem: 1,000 mg, IV Push, qDay famotidine 20 mg Tab: 20 mg, PO, Daily sodium chloride: 10 mL, IV Push, q12hr warfarin 5 mg Tab: 2.5 mg, PO, qDay PRN Meds acetamin/butal/caff (325-50-40 1 Tab, PO, q6hr, PRN: Headache acetaminophen 325 mg Tab: 650 mg, PO, q4hr, PRN: Pain Mild (1-3) acetaminophen 500 mg Tab: 500 mg, PO, q6hr, PRN: Pain/Temperature albuterol (0.083%) 2.5 mg/3 mL 2.5 mg, 3 mL, NEB - inhalation, q4hr, PRN: Shortness of breath or wheezing diphenhydrAMINE 50 mg/mL 1mL I 50 mg, IV Push, Per Parameter, PRN: Other (see Comments) docusate/senna (50/8.6) mg Tab 2 Tab, PO, qHS, P RN: Constipation EPINEPHrine 1mg/mL 1mL Inj: 0.3 mg, IM, Per Parameter, PRN: Other (see Comments) fentaNYL 50 mcg/mL 2 mL Inj: 25 mcg, IV Push, once, PRN: Pain Moderate to Severe (4-10) hydrALAZINE 20 mg/mL 1mL Inj: 5 mg, IV Push, q4h r, PRN: Other (see Comments) HYDROcod/acetamin (5/325) mg T 1 - 2 Tab, PO, q4hr, PRN: Pain Moderate to Severe (4-10) hydrocortisone 100 mg/2 mL I nj 100 mg, IV Push, Per Parameter, PRN: Other (see Comments) lidocaine 1% MPF 5mL Inj: 50 mg, 5 mL, Subcut, Per Parameter, PRN: Other (see Comments) magnesium oxide 400 mg Tab: 400 mg, PO, Per Para meter, PRN: Hypomagnesemia magnesium sulf /SW: 2 gm, 50 mL, 25 mL/hr, IV, Per Parameter, PRN: Hypomagnesemia magnesium sulf /SW: 4 gm, 10 0 mL, 25 mL/hr, IV, Per Parameter, PRN: Hypomagnesemia methylPREDNISolone Na succ P F 125 mg, IV Push, Per Parameter, PRN: Other (see Comments) morphine 2 mg/mL 1mL Inj: 2 mg, IV Push, q4hr, P RN: Pain Scale (See Comments) nalOXone 0.4 mg/mL 1mL Inj: 0.2 mg, IV Push, q2min, PRN: Respiratory depression ondansetron 2 mg/mL Inj 2mL: 4 mg, IV Push, q4hr, PRN: Nausea / Vomiting 1st Choice oxyCODONE 5 mg Tab Immediate R 5 mg, PO, q6hr, P RN: Pain potassium bicarbonate 20 mEq E 20 mEq, PO, Per P arameter, PRN: Hypokalemia potassium bicarbonate 20 mEq E 40 mEq, PO, Per P arameter, PRN: Hypokalemia potassium Cl / SW Premix: 10 mEq, 100 mL, 100 mL/hr, IV, Per Parameter, PRN: Hypokalemia prochlorperazine 5 mg/mL 2 m L 5 mg, IV Push, q4hr, PRN: Nausea / Vomiting 2nd Choice sodium chloride: 10 mL, IV Push, Per Parameter, PRN: Other (see Comments) temazepam 7.5 mg Cap: 7.5 mg, PO, qHS, PRN: Inso mnia IV Medications NaCl 0.9%: 20 mL/hr, IV, Stop: 12/30/19 11:07:00 MST . VS/Measurements 24 hr vital signs (All documented values resulted over the prior 24 hours) Low High Last 36.4 36.7 36.5 (12/15 12:00) (12/14 22:00) (12/15 17:00) Temperature PO Temperature PO Temperature PO HR 72 84 72 (12/15 17:00) (12/15 09:00) (12/15 17:00) RR 16 18 18 (12/15 12:00) (12/15 17:00) (12/15 17:00) NIBP 102/65 136/79 125/72 (12/14 23:00) (12/15 12:00) (12/15 17:00) NIBP Mean 90 90 90 (12/15 17:00) (12/15 17:00) (12/15 17:00) Weight (kg) Admit 72.56 (11/27 10:35) Current 70.00 (12/15 03:42) Previous 70.20 (12/14 05:25) Gain/Loss -0.20 Ventilation Low High Last SaO2 93 98 97 (12/15 03:30) (12/15 12:00) (12/15 17:00) == , Last Documented Vital Signs Temperature PO: 36.5 deg C Heart Rate: 72 bpm Monitored Cardiac Rhythm: Other: medical Resp Rate (Monitor): 18 Breaths/Min Mean Arterial Pressure: 90 mm Hg NIBP Systolic: 125 mm Hg NIBP Diastolic: 72 mm Hg Oxygen Method: Room air SPO2: 97 % Review / Management Results Review: 24 hr Labs Labs (All documented values resulted over the p rior 24 hours..) Hematology WBC 9.10 Hgb 9.40L Hct 28.30L Plt 297.00 Chemistry Na 137.00 K 4.00 Cl 103.00 CO2 26.00 Gluc 114.00H Bun 8.00L Cr 0.63 Ca 8.50 Coagulation PT 27.00H INR 2.37 Anion Anion Gap 12.00 (12/15 02:54) . Electronically Signed By: Audra Villarreal MD On 12/16/19 22:11 Co Signature By: Modify Signature By: History and Physical Patient: JOSEPH VALDIVIA MA 12/16/2019 [facility] Age: 79 years Sex: F : 1940 Active Ins urance: MEDICARE [id number] [facility] Admitting MD: Tito Saunders MD Location: [facility] B3A: B331: 01 PCP: Carol Ruff MD Author: Sigrid Navarro NP Subjective sleeping soundly this am, easily arousable. no family at bedside tolerated chemo last evening. denies N/V tolerating PO voiding without issue reports BM a day or two ago no acute events overnight Objective Vitals and Measurements T: 36.7 C (Oral) TMIN: 36.5 C (Oral) TMAX: 36.9 C (Oral) HR: 82 RR: 18 BP: 125/74 SpO2: 93% Oxygen Method: Room air WT: 70 kg Physical Exam GEN: No acute distress, alert and oriented x 3 HEENT: oropharynx clear, mucous membranes moist NECK: supple, no jugular venous distention CV: regular rate and rhythm, no rubs or gallops PULM: clear to auscultation bilaterally, normal respiratory excursion ABD: soft, mild distention, palpable mass to LLQ, mild tenderness with palpation of bilateral lower quadrants EXTR: no cyanosis, clubbing. 2+BLE edema ( luciana ing ) NEURO: Non-focal, moves all extremities Lab Results Common Labs - This Encounter, Most Recent, Last 24 hours Last 24 Hours Hematology-CBC 12/16/19 Coag 12/16/19 General Chemistry 12/16/19 WBC: 9.1 INR: 2.37 Sodium: 137 RBC:3.09 (L) PT:27.0 (H) Potassium: 4.0 Hgb:9.4 (L) Chloride: 103 Hct:28.3 (L) CO2: 26 MCV: 91.4 Anion Gap: 12 MCH: 30.4 Glucose Level:114 (H) MCHC: 33.2 BUN:8 (L) RDW: 15.2 Creatinine: 0.63 Plt: 297 eGFR Non- Am: >60 Neuts:88.8 (H) eGFR Afr/Amer: >60 Lymphs:4.8 (L) Calcium: 8.5 Monos.: 5.6 Eos.: 0.3 Baso.: 0.5 ABS Neut: 8.1 ABS Lymph:0.4 (L) ABS [place]: 0.5 ABS Eos: 0.0 ABS Baso: 0.0 CBC Scan: Auto Diff Additional No qualifying data available. Antibiotics Ordered meropenem: 1,000 mg, IV, q8hr(inter 12/15/19 18 :04 - Active ( 2 days ) Inactive acyclovir: 720 mg, IV, q8hr 11/27/19 17:25 - 08:57 ( 8 days ) acyclovir: 370 mg, IV, q12hr 12/04/19 08:57 - 0 12/05/19 15:26 ( 2 days ) piperacillin-tazobactam: 3. 375 gm, IV, q8hr 12/13/19 10:16 - 12/15/19 18:04 ( 3 days ) Assessment/Plan Ms Valdivia is a pleasant [age] year old female admitted initially for abdominal pain and weakness, found to have a pelvic mass, 14.[address] and US imaging with CT-guided biopsy results showing high grade adenocarcinoma of ovarian origin. -s/p guided biopsy and rajiv wall of cystic contents with cytology which revealed the above diagnosis. -given her current clinical status she is not a stable candidate for surgery. She is a candidate for chemotherapy. 1. High grade adenocarcimona of ovarian origin: - Pelvic US findings: Compl ex, diffuse cystic components; multiple irregular internal soft tissue densities. 14.5 x 9.1 x 14.8 cm. +vascular flow. +free fluid. Origin R ovary from CT. - No lymphadenopathy noted on CT C/A/P during admission although there is mild ascites, primarily in the pelvis. -Potential (but very unlike ly) metastasis with 1.5 cm nodular density in the left lower lung and within the spleen and kidneys with notable hypodensities (but also read as potentially infarcts). - [id number] 496 on 12/03/19 -C1D1 Carbo/Taxol 12/15/2019 at 1900 -subsequent chemo planned as outpatient given q 3 weeks. 2. Anemia - Chronic VS malignancy related - Continue to trend labs - Transfuse if less than 7. Today hgb is 9.4g/d L 3. Recent NSTEMI - Cardiology following. Appreciative of recomme ndations. 4. 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 - Neurology following - Expressive aphasia as seq uelae- difficulty communication emotions and understanding of plan 5. Recent h/o DVT - IVC filter in place - Eliquis transitioned to l ovenox on 12/03/19 (80mg q12 hrs), warfarin 5 mg, ASA -on bridge. INR today 2.3 Plan: - Tentative discharge plann ed after administration per primary team's discretion - Will follow up for subsequent chemo cycles as out patient at [facility]. Electronically Signed By: Sigrid Navarro NP On 12/16/19 07:53 Co Signature By: Modify Signature By: Posting Clerk Oncology Patient tolerated chemotherapy cycle#1 last even ing without difficulty. Plans are in progress for d/c to home with [facility] w graeme [facility] plans are finalized. Ryley Ashraf md cell: [phone] Electronically Signed By: Ryley Ashraf MD On 12/16/19 13:20 Co Signature By: Modify Signature By: Ryley Ashraf MD On 12/16/19 13:20 History and Physical 12/15/2019 Chapito alvarez Patient[facility] Age: 79 years Sex: F : 1940 Associated Diagnoses: None Author: Audra Villarreal MD Basic Information Date of Service: 12/15/2019 20:46, 12/15/2019 20:46. Admission Information: Admit Days = 19, Patient Type = Inpatient . Impression and Plan Diagnosis .. Subjective: Covering for . ID reconsulted because of ESBL E.coli UTI. Patient is feeling better. N o fever or chills today but had fever couple of days ago. She denies burning with urination, flank pain. Objective: Vital Signs reviewed and afebrile General: comfortable, non-toxic. HEENT: Anicteric, moist oral mucosa Cardiovascular: RRR, S1, S2 Chest: CTA bilaterally, no wheezing, no labored breathing at rest Abdomen: +BS, Nontender, nondistended, Soft. Extremities: no edema or cyanosis. Skin: no rash/petechia CBC,BMP, radiology and cultures were reviewed IMPRESSION: ESBL E.coli UTI Fever, secondary to above Leukocytosis Recurrent CVA. -elevated troponin -Hx of DVT -Large ovarian mass with zunilda vated cancer markers, path revealing high grade mullerian adenocarcinoma,on chemo, immunocompromised patient Aseptic meningitis PLAN: stop Zosyn Start iv Meropenem to cover ESBL E.coli, patient is on chemo contact isolation Patient agreed with above plan. Also d/w her sons. D/w RN at bedside. Thank you. Will follow. Please call if any quest ions. . Review of Systems Constitutional: No fever, No chills. Respiratory: No shortness of breath, No cough. Cardiovascular: No chest pain, No peripheral caro ma. Gastrointestinal: No vomiting, No diarrhea. Genitourinary: No dysuria, No hematuria. Integumentary: No rash, No skin lesion. Neurologic: No confusion, No headache. Review / Management Results Review: 24 hr Labs Labs (All documented values resulted over the p rior 24 hours..) Hematology WBC 9.40 Hgb 9.00L Hct 27.40L Plt 273.00 Chemistry Na 137.00 K 3.70 Cl 101.00 CO2 28.00 Gluc 107.00H Bun 8.00L Cr 0.68 Ca 8.30L Coagulation PT 22.10H INR 1.94 Anion Anion Gap 12.00 (12/14 04:27) . Health Status Intake and Output VS/Measurements 24 hr vital signs (All documented values resulted over the prior 24 hours) Low High Last 36.5 37.1 36.5 (12/14 16:00) (12/13 21:00) (12/14 16:00) Temperature PO Temperature PO Temperature PO HR 77 83 78 (12/14 00:00) (12/13 21:00) (12/14 12:00) RR 16 20 16 (12/14 16:00) (12/14 12:00) (12/14 16:00) NIBP 90/56 119/70 119/70 (12/13 21:00) (12/14 16:00) (12/14 16:00) Weight (kg) Admit 72.56 (11/27 10:35) Current 70.20 (12/14 05:25) Previous 70.20 (12/14 05:00) Gain/Loss 0.00 Ventilation Low High Last SaO2 94 98 98 (12/14 00:00) (12/14 16:00) (12/14 16:00) == , Last Documented Vital Signs Vital Signs (Most Recent ) Temp PO Heart Rate Resp Rate 36.5 78 16 (12/14 16:00) (12/14 12:00) (12/14 16:00) Non Invasive BP NIBP Mean AdmitWeight CurrentWe ight BMI 119 / 70 79 72.56 70.20 26.02 (12/14 16:00) (12/13 00:00) (11/27 10:35) (12/02 3 05:25) (11/27 21:41) Ventilation SaO2 FiO2 98 21 (12/14 16:00) (11/27 23:20) Allergies: Allergic Reactions (All) NKA Current medications: Antibiotic Info Ordered meropenem: 1,000 mg, IV, q8hr(inter 12/15/19 18 :04 - Active ( 1 days ) Inactive acyclovir: 720 mg, IV, q8hr 11/27/19 17:25 - 08:57 ( 8 days ) acyclovir: 370 mg, IV, q12hr 12/04/19 08:57 - 0 12/05/19 15:26 ( 2 days ) piperacillin-tazobactam: 3. 375 gm, IV, q8hr 12/13/19 10:16 - 12/15/19 18:04 ( 3 days ) , Scheduled amLODIPine 2.5 mg Tab: 5 mg, PO, qDay aprepitant 130 mg/18 mL Inj: 130 mg, IV Push, on ce aspirin 81 mg Chew Tab: 81 mg, PO, Daily atorvastatin 40 mg Tab: 40 mg, PO, qDay ca carb/vit D 500mg rosebud/200 I 1 Tab, PO, BID CARBOplatin + NaCl 0.9%: 430 mg, 43 mL, 293 mL/h r, IV, once carvedilol 3.125 mg Tab: 6.25 mg, PO, BID citalopram 10 mg tab: 10 mg, PO, Daily cyanocobalamin 100 mcg Tab: 50 mcg, PO, qDay diphenhydrAMINE 50 mg/mL 1mL I 25 mg, IV Push, o nce enoxaparin 80 mg/0.8 mL Inj: 70 mg, SUBCUT, q12h r famotidine 10 mg/mL 2 mL Inj: 20 mg, IV Push, on ce famotidine 20 mg Tab: 20 mg, PO, Daily meropenem + NS for Premix: 1,000 mg, 33.33 mL/hr , IV, q8hr(interval) ondansetron + dexamethasone + 8 mg, 4 mL, 220 mL /hr, IV, once sodium chloride: 10 mL, IV Push, q12hr warfarin 5 mg Tab: 5 mg, PO, qDay PRN Meds acetamin/butal/caff (325-50-40 1 Tab, PO, q6hr, PRN: Headache acetaminophen 325 mg Tab: 650 mg, PO, q4hr, PRN: Pain Mild (1-3) acetaminophen 500 mg Tab: 500 mg, PO, q6hr, PRN: Pain/Temperature albuterol (0.083%) 2.5 mg/3 mL 2.5 mg, 3 mL, NEB - inhalation, q4hr, PRN: Shortness of breath or wheezing diphenhydrAMINE 50 mg/mL 1mL I 50 mg, IV Push, Per Parameter, PRN: Other (see Comments) docusate/senna (50/8.6) mg Tab 2 Tab, PO, qHS, P RN: Constipation EPINEPHrine 1mg/mL 1mL Inj: 0.3 mg, IM, Per Parameter, PRN: Other (see Comments) fentaNYL 50 mcg/mL 2 mL Inj: 25 mcg, IV Push, once, PRN: Pain Moderate to Severe (4-10) hydrALAZINE 20 mg/mL 1mL Inj: 5 mg, IV Push, q4h r, PRN: Other (see Comments) HYDROcod/acetamin (5/325) mg T 1 - 2 Tab, PO, q4hr, PRN: Pain Moderate to Severe (4-10) hydrocortisone 100 mg/2 mL I nj 100 mg, IV Push, Per Parameter, PRN: Other (see Comments) magnesium oxide 400 mg Tab: 400 mg, PO, Per Para meter, PRN: Hypomagnesemia magnesium sulf /SW: 2 gm, 50 mL, 25 mL/hr, IV, Per Parameter, PRN: Hypomagnesemia magnesium sulf /SW: 4 gm, 10 0 mL, 25 mL/hr, IV, Per Parameter, PRN: Hypomagnesemia methylPREDNISolone Na succ P F 125 mg, IV Push, Per Parameter, PRN: Other (see Comments) morphine 2 mg/mL 1mL Inj: 2 mg, IV Push, q4hr, P RN: Pain Scale (See Comments) nalOXone 0.4 mg/mL 1mL Inj: 0.2 mg, IV Push, q2min, PRN: Respiratory depression ondansetron 2 mg/mL Inj 2mL: 4 mg, IV Push, q4hr, PRN: Nausea / Vomiting 1st Choice oxyCODONE 5 mg Tab Immediate R 5 mg, PO, q6hr, P RN: Pain potassium bicarbonate 20 mEq E 20 mEq, PO, Per P arameter, PRN: Hypokalemia potassium bicarbonate 20 mEq E 40 mEq, PO, Per P arameter, PRN: Hypokalemia potassium Cl / SW Premix: 10 mEq, 100 mL, 100 mL/hr, IV, Per Parameter, PRN: Hypokalemia prochlorperazine 5 mg/mL 2 m L 5 mg, IV Push, q4hr, PRN: Nausea / Vomiting 2nd Choice sodium chloride: 10 mL, IV Push, Per Parameter, PRN: Other (see Comments) temazepam 7.5 mg Cap: 7.5 mg, PO, qHS, PRN: Inso mnia Unscheduled PACLitaxel *generic* + NaCl 0. 240 mg, 40.01 mL, 96.67 mL/hr, IV, oncall IV Medications NaCl 0.9%: 20 mL/hr, IV, Stop: 12/30/19 11:07:00 [facility] . Electronically Signed By: Audra Villarreal MD On 12/15/19 20:58 Co Signature By: Modify Signature By: History and Physical Patient: JOSEPH VALDIVIA MA 12/15/2019 [facility] Age: 79 years Sex: F : 1940 Active Ins urance: MEDICARE [id number] [facility] Admitting MD: Tito Saunders MD Location: [facility] B3A: B331: 01 PCP: Carol Ruff MD Author: Zee Ramirez Subjective Patient is a 79 year old fe male with PMHx significant for previous stroke and DVT currently on Eliquis who presented to the ED on 11/27/2019 with complaints of generalized weakness, nausea, vomiting, an d diarrhea. Per EMS, her fie ld EKG showed ST elevations in 2, 3, and aVF. EMS administered Aspirin and Zofran with some relief. Patient follows with Dr. Echeverria as outpatient. She denies chest pain, abdom inal pain, sor hortness of b reath. Upon arrival patient was hypertensive 166/97. Labs showed WBC 14.1, PT 16.6, AST 40, Alkphos 258, troponin elevated, influenza negative. CTA abd on 11/27/19 showed 'No aortic aneurysm or dissectio n. 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 Additionally, there is moderate narrowing of the SMA at the o rigin and proximally without jorge alberto stenosis. There are striated appearance the bilateral kidneys which may reflect pyelonephritis. However, underlying infarct could also be of consideration especially o n the right side. No focal c ollection identified. Multiple probable infarcts are seen of the spleen which are of indeterminate age but may be chronic. Large cystic ovarian neoplasm noted arising from th e right.' Cardiology saw the patient and there was no indication for angiography or aggressive treatment, including cardiac cath as patient is high risk for repeat stroke. Venous US on 11/28/2019 was neg ative for DVT but there was mild bilateral PAD seen on the arterial doppler on 11/28/19. Neurology was consulted. Brain MRI on 11/29/2019 showed 'Innumerable acute embolic infarcts most prominent in the r ight occipital lobe and bila teral cerebellum, new compared to 11/05/2019. No associated hemorrhage.' There was concern for possible aseptic meningitis, therefore patient underwent lumbar puncture on and ID saw her. CT abd/pe lvis on 11/28/19 revealing large ovarian mass. Reviewed with ID. Posting Clerk onc saw the patient, there was some consideration for surgical debulking. Follow-up pelvic US on 12/02/19 s howed 'Complex primarily cys tic mass pelvis. Neoplasm must be excluded'. [id number] measured at 496. Cardiology recommended percutaneous biopsy of the mass prior to surgical intervention due to her cardiac risk. Patient underwent ovar demetrius mass biopsy on 12/07/2019. Pathology revealing high grade mullerian adenocarcinoma. Posting Clerk onc saw the patient and discussed her diagnosis and treatment options going forward. We had a long discussion wi th patient's son and other family members via phone call. They are aware of the results and expectations as well as future care. PT/OT evaluated the patient and are recommending home health PT and 24 hour care. She was to discharge on 12/12 but spiked fevers overnight and had abdominal pain, tenderness to palpation, and difficulty urinating. CT abdomen showing 'Mild colitis may present. There also appears be mild cystitis with findings concerning for involvement of the right renal collecting system is well. Interval evolution of bilateral renal infarcts as well as the splenic infarcts. Likel y a large right ovarian complex cystic neoplasm again noted. Small amount abdominal ascites.. Increased enhancement of the gallbladder which may be related to varices. Trace abdominal ascites as well as small right pleural effusion and trace left pleural effusion. Mild prominence of the pancreatic head and uncinate process which may represent mild acute pancreatitis.' Patie nt and patient's sons have d ecided to proceed with chemotherapy. First round to be later today. Patient seen and examined, case discussed with RN and son's at bedside. Patient to go for first round of chemotherapy t oswaldo. No acute concerns or compla ints from patient although she does appear slightly confused. Objective Vitals and Measurements T: 36.8 C (Oral) TMIN: 36.7 C (Oral) TMAX: 37.1 C (Oral) HR: 78 RR: 20 BP: 118/70 SpO2: 96% Oxygen Method: Room air WT: 70.2 kg Physical Exam GENERAL: Nontoxic HEENT: Normocephalic NECK: supple, no rigidity. LUNGS: No crackles or wheezes. CV: RRR, normal S1/S2, GI: soft, normoactive bowel sounds : no suprapubic or flank tenderness. BACK: no spinal or paraspinal tenderness EXT: no edema SKIN: warm and dry, no ulcerations. NEURO: Cranial nerves 2-12 grossly intact Lab Results Common Labs - This Encounter, Most Recent, Last 24 hours Last 24 Hours Hematology-CBC 12/15/19 Coag 12/15/19 General Chemistry 12/15/19 WBC: 9.4 INR: 1.94 Sodium: 137 RBC:2.95 (L) PT:22.1 (H) Potassium: 3.7 Hgb:9.0 (L) Chloride: 101 Hct:27.4 (L) CO2: 28 MCV: 93.1 Anion Gap: 12 MCH: 30.6 Glucose Level:107 (H) MCHC: 32.8 BUN:8 (L) RDW: 15.1 Creatinine: 0.68 Plt: 273 eGFR Non- Am: >60 Neuts: 73.3 eGFR Afr/Amer: >60 Lymphs:9.7 (L) Calcium:8.3 (L) Monos.: 15.0 Eos.: 1.3 Baso.: 0.7 ABS Neut: 6.9 ABS Lymph: 0.9 ABS [place]: 1.4 ABS Eos: 0.1 ABS Baso: 0.1 CBC Scan: Auto Diff Additional No qualifying data available. Antibiotics Ordered piperacillin-tazobactam: 3. 375 gm, IV, q8hr 12/13/19 10:16 - Active ( 3 days ) Inactive acyclovir: 720 mg, IV, q8hr 11/27/19 17:25 - 08:57 ( 8 days ) acyclovir: 370 mg, IV, q12hr 12/04/19 08:57 - 0 12/05/19 15:26 ( 2 days ) Medications - This Encounter, All Results, Last 6 months Scheduled amLODIPine 2.5 mg Tab: 5 mg, PO, qDay aspirin 81 mg Chew Tab: 81 mg, PO, Daily atorvastatin 40 mg Tab: 40 mg, PO, qDay ca carb/vit D 500mg rosebud/200 I 1 Tab, PO, BID carvedilol 3.125 mg Tab: 6.25 mg, PO, BID citalopram 10 mg tab: 10 mg, PO, Daily cyanocobalamin 100 mcg Tab: 50 mcg, PO, qDay enoxaparin 80 mg/0.8 mL Inj: 70 mg, SUBCUT, q12 hr famotidine 20 mg Tab: 20 mg, PO, Daily piperacillin/tazobactam + NS f 3.375 gm, 25 mL/ hr, IV, q8hr sodium chloride: 10 mL, IV Push, q12hr warfarin 5 mg Tab: 5 mg, PO, qDay PRN acetamin/butal/caff (325-50-40 1 Tab, PO, q6hr, PRN: Headache acetaminophen 325 mg Tab: 650 mg, PO, q4hr, PRN : Pain Mild (1-3) acetaminophen 500 mg Tab: 500 mg, PO, q6hr, PRN : Pain/Temperature albuterol (0.083%) 2.5 mg/3 mL 2.5 mg, 3 mL, NEB - inhalation, q4hr, PRN: Shortness of breath or wheezing diphenhydrAMINE 50 mg/mL 1m L I 50 mg, IV Push, oncall, PRN: Other (see Comments) docusate/senna (50/8.6) mg Tab 2 Tab, PO, qHS, PRN: Constipation EPINEPHrine 1mg/mL 1mL Inj: 0.3 mg, IM, oncall, PRN: Other (see Comments) fentaNYL 50 mcg/mL 2 mL Inj : 25 mcg, IV Push, once, PRN: Pain Moderate to Severe (4-10) hydrALAZINE 20 mg/mL 1mL Inj: 5 mg, IV Push, q4 hr, PRN: Other (see Comments) HYDROcod/acetamin (5/325) m g T 1 - 2 Tab, PO, q4hr, PRN: Pain Moderate to Severe (4-10) hydrocortisone 100 mg/2 mL Inj 100 mg, IV Push, oncall, PRN: Other (see Comments) magnesium oxide 400 mg Tab: 400 mg, PO, Per Par ameter, PRN: Hypomagnesemia magnesium sulf /SW: 2 gm, 5 0 mL, 25 mL/hr, IV, Per Parameter, PRN: Hypomagnesemia magnesium sulf /SW: 4 gm, 1 00 mL, 25 mL/hr, IV, Per Parameter, PRN: Hypomagnesemia methylPREDNISolone Na succ PF 125 mg, IV Push, oncall, PRN: Other (see Comments) morphine 2 mg/mL 1mL Inj: 2 mg, IV Push , q4hr, PRN: Pain Scale (See Comments) nalOXone 0.4 mg/mL 1mL Inj: 0.2 mg, IV Push, q2min, PRN: Respiratory depression ondansetron 2 mg/mL Inj 2mL : 4 mg, IV Push, q4hr, PRN: Nausea / Vomiting 1st Choice oxyCODONE 5 mg Tab Immediate R 5 mg, PO, q6hr, PRN: Pain potassium bicarbonate 20 mEq E 20 mEq, PO, Per Parameter, PRN: Hypokalemia potassium bicarbonate 20 mEq E 40 mEq, PO, Per Parameter, PRN: Hypokalemia potassium Cl / SW Premix: 1 0 mEq, 100 mL, 100 mL/hr, IV, Per Parameter, PRN: Hypokalemia prochlorperazine 5 mg/mL 2 mL 5 mg, IV Push, q4hr, PRN: Nausea / Vomiting 2nd Choice sodium chloride: 10 mL, IV Push, Per Parameter, PRN: Other (see Comments) temazepam 7.5 mg Cap: 7.5 mg, PO, qHS, PRN: Ins omnia IV NaCl 0.9%: 20 mL/hr, IV, Stop: 12/30/19 11:07:0 0 MST Assessment/Plan -Recurrent CVA. -elevated troponin -Hx of DVT -Large ovarian mass with el evated cancer markers, path revealing high grade mullerian adenocarcinoma -high grade fevers suspect from UTI with gnr in urine cultures awaiting sensitivities Plan CT scan revealing large ova murali mass. Reviewed with cytogenetic technician onc. Pelvic US showing 'Complex primarily cystic mass pelvis. Neoplasm must be excluded'. Patient was ineligible for surgical intervention due to cardiac risk. Her CEA level was elevated at 496. Biopsy on 12/07/2019 revealing high grade mullerian adenocarcinoma. Round 1 of chemo to begin today, 12/15/19. Continue Lovenox and bridge to Coumadin anticia pte one more day Urine growing gram negative rods. On Zosyn awai ting sensitivities PT/OT recommending home with home health PT. This document was transcrib ed by yayo Ramirez for Provider: Dr. Saunders on 12/15/19. I, Tito Saunders, have revie wed and agree with all documentation in this transcribed note. Electronically Signed By: Tito Saunders MD On 12/15/19 18:29 Co Signature By: Modify Signature By: Zee Ramirez On 12/15/19 12:06 History and Physical Patient: JOSEPH VALIDVIA MA 12/15/2019 [facility] Age: 79 years Sex: F : 1940 Active Ins urance: MEDICARE [id number] [facility] Admitting MD: Tito Saunders MD Location: [facility] B3A: B331: 01 PCP: Carol Ruff MD Author: Elsie Velasco MD Jose Eduardo Hemphill is doing well today. She was seated upright having breakfast. A patient accounting representative from [employer] ([employer] [facility] was in the room, and excused themselves for a private interview. She continues to deny pain. She denies nausea or vomiting. She was tolerating a couple bites of an omelette and an Ensure drink. She believes she has had a BM within the last day or two. She is voiding without difficulty. She rep orts ambulating from the restroom and back without difficulty. Today I asked if she could explain her best understanding of her situation. She stated 'healthy people do not need chemotherapy.' When prompted about what she wants to do she stated 'I want to fight'. She is currently scheduled for cycle 1 of chemotherapy to begin today at 1200. Tentative plan for discharge after this. Review of Systems Constitutional: No fevers, chills, sweats Eye: No recent visual problems ENMT: No ear pain, nasal congestion, sore throa t Respiratory: No shortness of breath, cough Cardiovascular: No Chest pain, palpitations, sy ncope Gastrointestinal: No nausea, vomiting, diarrhea Genitourinary: No hematuria Candice/Lymph: Negative for bruising tendency, swo llen lymph glands Endocrine: Negative for excessive thirst, exces sive hunger Musculoskeletal: No back pa in, neck pain, joint pain, muscle pain, decreased range of motion Integumentary: No rash, pruritus, abrasions Neurologic: Alert and oriented X 4 Psychiatric: No anxiety, depression Objective Vitals and Measurements T: 36.8 C (Oral) TMIN: 36.7 C (Oral) TMAX: 37.1 C (Oral) HR: 78 RR: 20 BP: 118/70 SpO2: 96% Oxygen Method: Room air WT: 70.2 kg Vital Signs - Low/High/Last - This Encounter, M ost Recent, Last 24 hours (All documented values resulted over the prior 24 hours) Temperature Low: 36.7 (12/13 15:53) Temperature PO High: 37.1 (12/13 21:00) Temperature PO Last: 36.8 (12/14 07:00) Temperature PO HR Low: 77 (12/14 00:00) High: 83 (12/13 21:00) Last: 78 (12/14 07:00) Respiratory Rate Low: 16 (12/13 21:00) High: 20 (12/14 07:00) Last: 20 (12/14 07:00) NIBP Low: 90/56 L (12/13 21:00) High: 118/70 (12/14 07:00) Last: 118/70 (12/14 07:00) Weight (kg) Admit: 72.56 (11/27 10:35) Current: 70.20 (12/14 05:25) Previous: 70.20 (12/14 05:00) Gain/Loss: 0.00 Ventilation SaO2 Low: 94 (12/14 00:00) High: 96 (12/14 07:00) Last: 96 (12/14 07:00) Physical Exam GENERAL: Nontoxic, no acute distress, alert and oriented to self and situation. HEENT: Normocephalic, atrau matic, no scleral icterus or conjunctival injection. NECK: supple, no rigidity. LUNGS: Normal respiratory effort. CV: RRR, on tele GI: soft, mild distention, palpable mass to LLQ, mild tenderness with palpation of bilateral lower quadrants : no suprapubic or flank tenderness. EXT: 2+ pitting edema to BLE SKIN: warm and dry, no ulcerations. PSYCH: Appropriate mood and affect, difficulty with expressing emotion Lab Results Common Labs - This Encounter, Most Recent, Last 24 hours Last 24 Hours Hematology-CBC 12/15/19 Coag 12/15/19 General Chemistry 12/15/19 WBC: 9.4 INR: 1.94 Sodium: 137 RBC:2.95 (L) PT:22.1 (H) Potassium: 3.7 Hgb:9.0 (L) Chloride: 101 Hct:27.4 (L) CO2: 28 MCV: 93.1 Anion Gap: 12 MCH: 30.6 Glucose Level:107 (H) MCHC: 32.8 BUN:8 (L) RDW: 15.1 Creatinine: 0.68 Plt: 273 eGFR Non- Am: >60 Neuts: 73.3 eGFR Afr/Amer: >60 Lymphs:9.7 (L) Calcium:8.3 (L) Monos.: 15.0 Eos.: 1.3 Baso.: 0.7 ABS Neut: 6.9 ABS Lymph: 0.9 ABS [place]: 1.4 ABS Eos: 0.1 ABS Baso: 0.1 CBC Scan: Auto Diff Additional No qualifying data available. Antibiotics Ordered piperacillin-tazobactam: 3. 375 gm, IV, q8hr 12/13/19 10:16 - Active ( 3 days ) Inactive acyclovir: 720 mg, IV, q8hr 11/27/19 17:25 - 08:57 ( 8 days ) acyclovir: 370 mg, IV, q12hr 12/04/19 08:57 - 0 12/05/19 15:26 ( 2 days ) Diagnostic Results Radiology - Full Interpretation, Last 24 hrs Name: JOSEPH VALDIVIA Account: [id number] : 1940 Result Date: Verified By: at : +++++++++++++++++++++++++++++++++++++++++++++++ ++++++++ Assessment/Plan Ms Valdivia is a pleasant [age] year old female admitted initially for abdominal pain and weakness, found to have a pelvic mass, 14.[address] and US imaging with CT-guided biopsy results showing high grade adenocarcinoma of ovarian origin. 1. High grade adenocarcimona of ovarian origin: - Pelvic US findings: Compl ex, diffuse cystic components; multiple irregular internal soft tissue densities. 14.5 x 9.1 x 14.8 cm. +vascular flow. +free fluid. Origin R ovary from CT. - No lymphadenopathy noted on CT C/A/P during admission although there is mild ascites, primarily in the pelvis. Potential (but very unlikely) metastasis with 1.5 cm nodular density in the left lower l sreedhar and within the spleen an d kidneys with notable hypodensities (but also read as potentially infarcts). - [id number] on 12/03/19 - We previously reviewed th at the mass is most likely ovarian in etiology. We reviewed there is no definitive way to exclude malignancy without surgical removal. Given her moderate cardiac risk and the cardiology evaluation, we r ecommended proceeding forward with an CT-guided biopsy and drainage of cystic contents with cytology which revealed the above running diagnosis. - After results confirmed rupa daigle malignancy of ovarian origin- we discussed that given her current clinical status she is not a stable candidate for surgery. She is a candidate for chemotherapy. We hav e discussed this with the viry buenrostro, and her son Pepe. They have decided to initiate the first dose of chemo as in patient. - Will proceed with Cycle 1 of chemotherapy with carbo/taxol today (verified orders are in) at 1200. - Patient is candidate for discharge today following administration of chemo, per primary teams recommendations - Will continue on out patient basis q 3 weeks at [facility] 2. Anemia - Chronic VS malignancy related - Continue to trend labs - Transfuse if less than 7. Today hgb is 9. 3. Recent NSTEMI - Cardiology following. Appreciative of recomme ndations. 4. 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 - Neurology following - Expressive aphasia as seq uelae- difficulty communication emotions and understanding of plan 5. Recent h/o DVT - IVC filter in place - Eliquis transitioned to l ovenox on 12/03/19 (80mg q12 hrs), warfarin 5 mg, ASA Plan: - Proceed with Cycle 1 of chemo today - Tentative discharge plann ed after administration per primary team's discretion - Will follow up for subsequent chemo cycles as out patient at [facility] To be d/w Dr. Black. Elsie Velasco MD INFORMATION SYSTEMS TECHNICIAN PGY3 Patient seen and examined. Agree with above assessment and plan. Discussed chemo with patient and family. Discussed r/b/a including but not limited to alopecia, N/V, fatigue, hematologic changes, neuropathy. Discussed outpatient f/u. Dr Helen Black Posting Clerk Onc Attending [facility] [phone] (cell) Electronically Signed By: Helen Black MD On 12/15/19 15:10 Co Signature By: Modify Signature By: Elsie Velasco MD On 12/15/19 08:20 History and Physical Patient: JOSEPH VALDIVIA MA 12/14/2019 [facility] Age: 79 years Sex: F : 1940 Active Ins urance: MEDICARE [phone] Admitting MD: Tito Saunders MD Location: [facility] B3A: B331: 01 PCP: Carol Ruff MD Author: Nathalie Landrum Subjective Patient is a 79 year old fe male with PMHx significant for previous stroke and DVT currently on Eliquis who presented to the ED on 11/27/2019 with complaints of generalized weakness, nausea, vomiting, an d diarrhea. Per EMS, her fie ld EKG showed ST elevations in 2, 3, and aVF. EMS administered Aspirin and Zofran with some relief. Patient follows with Dr. Echeverria as outpatient. She denies chest pain, abdom inal pain, sor hortness of b reath. Upon arrival patient was hypertensive 166/97. Labs showed WBC 14.1, PT 16.6, AST 40, Alkphos 258, troponin elevated, influenza negative. CTA abd on 11/27/19 showed 'No aortic aneurysm or dissectio n. 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 Additionally, there is moderate narrowing of the SMA at the o rigin and proximally without jorge alberto stenosis. There are striated appearance the bilateral kidneys which may reflect pyelonephritis. However, underlying infarct could also be of consideration especially o n the right side. No focal c ollection identified. Multiple probable infarcts are seen of the spleen which are of indeterminate age but may be chronic. Large cystic ovarian neoplasm noted arising from th e right.' Cardiology saw the patient and there was no indication for angiography or aggressive treatment, including cardiac cath as patient is high risk for reapeat stroke. Venous US on 11/28/2019 was ne gative for DVT but there was mild bilateral PAD seen on the arterial doppler on 11/28/19. Neurology was consulted. Brain MRI on 11/29/2019 showed 'Innumerable acute embolic infarcts most prominent in the right occipital lobe and navya ateral cerebellum, new compared to 11/05/2019. No associated hemorrhage.' There was concern for possible aseptic meningitis, therefore patient underwent lumbar puncture on 11/29 and ID saw her. CT abd/p vera on 11/28/19 revealing large ovarian mass. Reviewed with ID. Posting Clerk onc saw the patient, there was some consideration for surgical debulking. Follow-up pelvic US on 12/02/19 showed 'Complex primarily cy stic mass pelvis. Neoplasm must be excluded'. [id number] measured at 496. Cardiology recommended percutaneous biopsy of the mass prior to surgical intervention due to her cardiac risk. Patient underwent ova murali mass biopsy on 12/07/2019. Pathology revealing high grade mullerian adenocarcinoma. Posting Clerk onc saw the patient and discussed her diagnosis and treatment options going forward . We had a long discussion w ith patient's son and other family members via phone call. They are aware of the results and expectations as well as future care. PT/OT evaluated the patient and are recommending home health PT and 24 hour care. She was to discharge on 12/12 but spiked fevers overnight and had abdominal pain, tenderness to palpation, and difficulty urinating. CT abdomen showing 'Mil d colitis may present. There also appears be mild cystitis with findings concerning for involvement of the right renal collecting system is well. Interval evolution of bilateral renal infarcts as well a s the splenic infarcts. Like ly a large right ovarian complex cystic neoplasm again noted. Small amount abdominal ascites.. Increased enhancement of the gallbladder which may be related to varices. Trace abdominal ascites as well a s small right pleural effusion trace left pleural effusion. Mild prominence of the pancreatic head and uncinate process which may represent mild acute pancreatitis.' Patient and her son have spoken with oncology, Dr. Black, and are aware of their options regarding chemotherapy. They are to discuss and make a decision today, we will follow up once they have had time to discuss. Patient seen and examined, case discussed with RN and son . Had a long discussion with patient and her son at bedside. TThey were speaking with Dr Black over the phone prior to us entering They are aware of their opt ions moving forward with chemotherapy and would like to proceed with first round of chemotherapy here Objective Vitals and Measurements T: 36.8 C (Oral) TMIN: 36.2 C (Oral) TMAX: 36.8 C (Oral) HR: 78 RR: 16 BP: 108/60 SpO2: 96% Oxygen Method: Room air WT: 69.4 kg Physical Exam GENERAL: Nontoxic HEENT: Normocephalic NECK: supple, no rigidity. LUNGS: No crackles or wheezes. CV: RRR, normal S1/S2, GI: soft, normoactive bowel sounds : no suprapubic or flank tenderness. BACK: no spinal or paraspinal tenderness EXT: no edema SKIN: warm and dry, no ulcerations. NEURO: Cranial nerves 2-12 grossly intact Lab Results Common Labs - This Encounter, Most Recent, Last 24 hours Last 24 Hours Hematology-CBC 12/14/19 Coag 12/14/19 General Chemistry 12/14/19 WBC:11.5 (H) INR: 1.80 Sodium: 137 RBC:3.36 (L) PT:20.5 (H) Potassium:3.3 (L) Hgb:9.9 (L) Chloride: 99 Hct:30.5 (L) CO2: 27 MCV: 90.9 Anion Gap: 14 MCH: 29.5 Glucose Level:102 (H) MCHC: 32.5 BUN: 10 RDW: 15.4 Creatinine: 0.78 Plt: 300 eGFR Non- Am: >60 Neuts: 77.3 eGFR Afr/Amer: >60 Lymphs:7.2 (L) Calcium: 8.4 Monos.: 14.4 Eos.: 0.6 Baso.: 0.5 ABS Neut:8.9 (H) ABS Lymph: 0.8 ABS [place]: 1.6 ABS Eos: 0.1 ABS Baso: 0.1 CBC Scan: Auto Diff Urinalysis 12/14/19 Color: Yellow Appearance:Cloudy (A) Specific Jasper:1.043 (H) UpH: 6.0 UGlucose: Negative UBilirubin: Negative UKetones: Negative UBlood:2+ (A) UProtein:1+ (A) UNitrite: Negative ULeukocyte Esterase:3+ (A) Urine Culture if Indicated: Culture Ordered UA Squam Epithelial: 0-10 Urine WBCs:>150 (A) URBC:11-40 (A) UMucous:Rare (A) UA WBC Clumps:Present (A) Additional No qualifying data available. Antibiotics Ordered piperacillin-tazobactam: 3. 375 gm, IV, q8hr 12/13/19 10:16 - Active ( 2 days ) Inactive acyclovir: 720 mg, IV, q8hr 11/27/19 17:25 - 08:57 ( 8 days ) acyclovir: 370 mg, IV, q12hr 12/04/19 08:57 - 0 12/05/19 15:26 ( 2 days ) Medications - This Encounter, All Results, Last 6 months Scheduled amLODIPine 2.5 mg Tab: 5 mg, PO, qDay aspirin 81 mg Chew Tab: 81 mg, PO, Daily atorvastatin 40 mg Tab: 40 mg, PO, qDay ca carb/vit D 500mg rosebud/200 I 1 Tab, PO, BID carvedilol 3.125 mg Tab: 6.25 mg, PO, BID citalopram 10 mg tab: 10 mg, PO, Daily cyanocobalamin 100 mcg Tab: 50 mcg, PO, qDay enoxaparin 80 mg/0.8 mL Inj: 70 mg, SUBCUT, q12 hr famotidine 20 mg Tab: 20 mg, PO, Daily piperacillin/tazobactam + NS f 3.375 gm, 25 mL/ hr, IV, q8hr sodium chloride: 10 mL, IV Push, q12hr warfarin 5 mg Tab: 5 mg, PO, qDay PRN acetamin/butal/caff (325-50-40 1 Tab, PO, q6hr, PRN: Headache acetaminophen 325 mg Tab: 650 mg, PO, q4hr, PRN : Pain Mild (1-3) acetaminophen 500 mg Tab: 500 mg, PO, q6hr, PRN : Pain/Temperature albuterol (0.083%) 2.5 mg/3 mL 2.5 mg, 3 mL, NEB - inhalation, q4hr, PRN: Shortness of breath or wheezing docusate/senna (50/8.6) mg Tab 2 Tab, PO, qHS, PRN: Constipation fentaNYL 50 mcg/mL 2 mL Inj : 25 mcg, IV Push, once, PRN: Pain Moderate to Severe (4-10) hydrALAZINE 20 mg/mL 1mL Inj: 5 mg, IV Push, q4 hr, PRN: Other (see Comments) HYDROcod/acetamin (5/325) m g T 1 - 2 Tab, PO, q4hr, PRN: Pain Moderate to Severe (4-10) magnesium oxide 400 mg Tab: 400 mg, PO, Per Par ameter, PRN: Hypomagnesemia magnesium sulf /SW: 2 gm, 5 0 mL, 25 mL/hr, IV, Per Parameter, PRN: Hypomagnesemia magnesium sulf /SW: 4 gm, 1 00 mL, 25 mL/hr, IV, Per Parameter, PRN: Hypomagnesemia morphine 2 mg/mL 1mL Inj: 2 mg, IV Push , q4hr, PRN: Pain Scale (See Comments) nalOXone 0.4 mg/mL 1mL Inj: 0.2 mg, IV Push, q2min, PRN: Respiratory depression ondansetron 2 mg/mL Inj 2mL : 4 mg, IV Push, q4hr, PRN: Nausea / Vomiting 1st Choice oxyCODONE 5 mg Tab Immediate R 5 mg, PO, q6hr, PRN: Pain potassium bicarbonate 20 mEq E 20 mEq, PO, Per Parameter, PRN: Hypokalemia potassium bicarbonate 20 mEq E 40 mEq, PO, Per Parameter, PRN: Hypokalemia potassium Cl / SW Premix: 1 0 mEq, 100 mL, 100 mL/hr, IV, Per Parameter, PRN: Hypokalemia prochlorperazine 5 mg/mL 2 mL 5 mg, IV Push, q4hr, PRN: Nausea / Vomiting 2nd Choice sodium chloride: 10 mL, IV Push, Per Parameter, PRN: Other (see Comments) temazepam 7.5 mg Cap: 7.5 mg, PO, qHS, PRN: Ins omnia IV NaCl 0.9%: 20 mL/hr, IV, Stop: 12/30/19 11:07:0 0 MST Diagnostic Results (12/13/2019 12:[address] Abdomen+Pelvis w IV Co n) IMPRESSION: Mild colitis may present. T here also appears be mild cystitis with findings concerning for involvement of the right renal collecting system is well. Interval evolution of bilat eral renal infarcts as well as the splenic infarcts. Likely a large right ovarian complex cystic lauren plasm again noted. Small amount abdominal asci marcelle.. Increased enhancement of the gallbladder which may be related to varices. Trace abdominal ascites as well as small right pleural effusion trace left pleural effusion. Mild prominence of the panc reatic head and uncinate process which may represent mild acute pancreatitis. Consider follow-up in 6 months to ensure resolution/stability. [1] Assessment/Plan -Recurrent CVA. -elevated troponin -Hx of DVT- -Large ovarian mass with el evated cancer markers, path revealing high grade mullerian adenocarcinoma -high grade fevers suspect from UTI Plan CT scan revealing large ova murali mass. Reviewed with cytogenetic technician onc. Pelvic US showing 'Complex primarily cystic mass pelvis. Neoplasm must be excluded'. Posting Clerk onc considering surgical debulking. Her CEA level was elevated at 496. Continue Lovenox and bridge to Coumadin PT/OT recommending home with home health PT. Patient has been afebrile n ow. Long discussion at bedside today with patient and her son. They have spoken with Dr. Black, and are aware of the options regarding chemotherapy. and agree with starting chemotherapy in patient Follow up urine cultures on Zosyn This document was transcrib ed by yayo Landrum for Provider: Dr. Saunders on 12/14/2019. I, Tito Saunders, have revie wed and agree with all documentation in this transcribed note. [1] CT Abdomen+Pelvis w IV Con; Nelson Hurt MD 12/13/2019 12:02 PDT Electronically Signed By: Tito Saunders MD On 12/14/19 20:16 Co Signature By: Modify Signature By: Nathalie Landrum On 12/14/19 14:58 History and Physical Patient: JOSEPH VALDIVIA MA 12/14/2019 [facility] Age: 79 years Sex: F : 1940 Active Ins urance: MEDICARE [id number] [facility] Admitting MD: Dennys Yoo DO Location: [facility] B3A: B331: 01 PCP: Carol Ruff MD Author: Elsie Velasco MD Subjective Patient states she is again doing 'okay' today. States she had a conversation with her son yesterday about POC, but she is unsure what exactly was discussed. She does not know whether or not she plans to proceed with chemo. We wi ll touch base with her son, Pepe, today for clarification. Of note she denies fever, c hills, pain, nausea, vomiting, diarrhea. she reports she is ambulating, got a little unsteady when she got out of bed last night around 0200. Review of Systems Constitutional: No fevers, chills, sweats Eye: No recent visual problems ENMT: No ear pain, nasal congestion, sore throa t Respiratory: No shortness of breath, cough Cardiovascular: No Chest pain, palpitations, sy ncope Gastrointestinal: No nausea, vomiting, diarrhea Genitourinary: No hematuria Candice/Lymph: Negative for bruising tendency, swo llen lymph glands Endocrine: Negative for excessive thirst, exces sive hunger Musculoskeletal: No back pa in, neck pain, joint pain, muscle pain, decreased range of motion Integumentary: No rash, pruritus, abrasions Neurologic: Alert and oriented X 4 Psychiatric: No anxiety, depression Objective Vitals and Measurements T: 36.8 C (Oral) TMIN: 36.2 C (Oral) TMAX: 38.9 C (Oral) HR: 71 RR: 16 BP: 109/67 SpO2: 93% Oxygen Method: Room air WT: 69.4 kg Vital Signs - Low/High/Last - This Encounter, M ost Recent, Last 24 hours (All documented values resulted over the prior 24 hours) Temperature Low: 36.2 (12/12 21:00) Temperature PO High: 38.9 ! (12/12 08:23) Temperature PO Last: 36.8 (12/13 05:00) Temperature PO HR Low: 63 (12/12 16:00) High: 96 (12/12 08:23) Last: 71 (12/13 05:00) Respiratory Rate Low: 12 L (12/13 04:00) High: 22 H (12/12 08:23) Last: 16 (12/13 05:00) NIBP Low: 93/57 (12/12 11:36) High: 109/67 (12/13 05:00) Last: 109/67 (12/13 05:00) NIBP Mean Low: 62 (12/12 11:36) High: 79 (12/13 00:00) Last: 79 (12/13 00:00) Weight (kg) Admit: 72.56 (11/27 10:35) Current: 69.40 (12/13 03:32) Previous: 70.60 (12/10 02:00) Gain/Loss: -1.20 Ventilation SaO2 Low: 91 (12/12 08:23) High: 94 (12/12 21:00) Last: 93 (12/13 05:00) Physical Exam GENERAL: Nontoxic, no acute distress, alert and oriented to self and situation. HEENT: Normocephalic, atrau matic, no scleral icterus or conjunctival injection. NECK: supple, no rigidity. LUNGS: Normal respiratory effort. CV: RRR, on tele GI: soft, mild distention, palpable mass to LLQ, mild tenderness with palpation of bilateral lower quadrants : no suprapubic or flank tenderness. EXT: 2+ pitting edema to BLE SKIN: warm and dry, no ulcerations. Lab Results Common Labs - This Encounter, Most Recent, Last 24 hours Last 24 Hours General Chemistry 12/14/19 Urinalysis 12/14/19 Sodium: 134 Color: Yellow Potassium: 3.5 Appearance:Cloudy (A) Chloride: 98 Specific Jasper:1.043 (H) CO2: 26 UpH: 6.0 Anion Gap: 14 UGlucose: Negative Glucose Level:129 (H) UBilirubin: Negative BUN:9 (L) UKetones: Negative Creatinine: 0.78 UBlood:2+ (A) eGFR Non- Am: >60 UProtein:1+ (A) eGFR Afr/Amer: >60 UNitrite: Negative Calcium:8.3 (L) ULeukocyte Esterase:3+ (A) Lactic Acid: 1.1 Urine Culture if Indicated: Culture Ordered UA Squam Epithelial: 0-10 Urine WBCs:>150 (A) URBC:11-40 (A) UMucous:Rare (A) UA WBC Clumps:Present (A) Additional No qualifying data available. Antibiotics Ordered piperacillin-tazobactam: 3. 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 1. High grade adenocarcimona: - Pelvic US findings: Compl ex, diffuse cystic components; multiple irregular internal soft tissue densities. 14.5 x 9.1 x 14.8 cm. +vascular flow. +free fluid. Origin R ovary from CT. - No lymphadenopathy noted on CT C/A/P during admission although there is mild ascites, primarily in the pelvis. Potential (but very unlikely) metastasis with 1.5 cm nodular density in the left lower l sreedhar and within the spleen an d kidneys with notable hypodensities (but also read as potentially infarcts). - [id number] on 12/03/19 - We previously reviewed th at the mass is most likely ovarian in etiology. We reviewed there is no definitive way to exclude malignancy without surgical removal. Given her moderate cardiac risk and the cardiology evaluation, we r ecommend proceeding forward with an CT-guided biopsy and drainage of cystic contents with cytology prior. - After results confirmed m alignancy of ovarian origin- we discussed that given her current clinical status she is not a stable candidate for surgery. She is a candidate for chemotherapy. We have discu ssed this with the patient, and her son Pepe. They were undecided as to how to proceed. We could try to give first dose of chemo as in patient, versus start treatment outpatient in a couple months. We w ill touch base with the family, and primary team for POC today. 2. Anemia - Chronic VS malignancy related - Continue to trend labs - Transfuse if less than 7. 3. Recent NSTEMI - Cardiology following. Appreciative of recomme ndations. 4. 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 - Neurology following 5. Recent h/o DVT - IVC filter in place - Eliquis transitioned to lovenox on 12/03/19 (80 mg q12 hrs), warfarin 5 mg Time spent with Patient Patient seen and examined. Agree with above assessment and plan. Spent about 30 min on the phone with the son and the patient. Discussed chemo with poss surgery versus hospice. Discussed 20% cure rate but 80% chance of remission with primary treatment. Discussed treatment planning schedule. DIscussed benefit of chemo versus hospice. Dr Helen Black Posting Clerk Onc Attending [facility] [phone] (cell) Electronically Signed By: Helen Black MD On 12/15/19 15:12 Co Signature By: Modify Signature By: Elsie Velasco MD On 12/14/19 07:14 History and Physical Patient: JOSEPH VALDIVIA MA 12/13/2019 [facility] Age: 79 years Sex: F : 1940 Active Ins urance: MEDICARE [phone] [facility] Admitting MD: Dennys Yoo DO Location: [facility] B3A: B331: 01 PCP: Carol Ruff MD Author: Nathalie Landrum Assessment/Plan 1. Abdominal pain R10.9 2. Fever R50.9 -Recurrent CVA. Neuro follo wing. 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 No associated hemor rhage.' S/p lumbar puncture 11/29. CSF fluid negative. ID following. VZV was negative, HSV negative. Acyclovir stopped. Patient has been having waxing and waning expressive aphasia 12/09. neurology following -Gastroenteritis. supportive care. -elevated trop. Stress test showed inf wall PA, with no reversible defect. med management -Hx of DVT. s/p IVC filter. No evidence of DVT on US. Cardiology following. No plan for inpatient cardiac cath due to risk for stroke. 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 CT scan revealing large ovarian mass. Reviewed with cytogenetic technician onc. Pelvic US showing 'Complex primarily cystic mass pelvis. Neoplasm must be excluded'. Posting Clerk o nc considering surgical debu lking. Her CEA level was elevated at 496. Eliquis held, on heparin gtt. 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 Stress test showed in f wall PA, with no reversible defect. Continue ASA, Coreg, Statin. Continue Lovenox and Warfarin. - PT/OT recommending home w [facility] PT. She was to discharge today 12/12 but developed fevers overnight. Improved slightly with Tylenol. Continue to monitor. - ovarian mass bx revealing high grade mullerian adenocarcinoma. Patient will need to follow up with cytogenetic technician/oncology as outpatient upon discharge. - Developed fevers overnigh t 12/11. Now with lower abdominal pain with tenderness to palpation, and difficulty urinating. Will check urinalysis and get CT abdomen. Start empiric antibiotics. Spoke with patient's son via phone call today and updated h im with this information. DVT Prophy: SCDs, Lovenox and Warfarin Code status: Full code Dispo: Discharge held as viry buenrostro developed fever overnight. at least 1-2 more days inpatient. Subjective Patient feeling 'clammy'. H ad abdominal pain this morning, has since resided. Difficulty urinating. Denies cp, sob, n/v, d/c. Patient developed fevers overnight, given Tylenol with some improvement Interim Summary Patient is a 79 year old fe male with PMHx significant for previous stroke and DVT currently on Eliquis who presented to the ED on 11/27/2019 with complaints of generalized weakness, nausea, vomiting, an d diarrhea. Per EMS, her fie ld EKG showed ST elevations in 2, 3, and aVF. EMS administered Aspirin and Zofran with some relief. Patient follows with Dr. Echeverria as outpatient. She denies chest pain, abdom inal pain, shortness of eboni th. Upon arrival patient was hypertensive 166/97. Labs showed WBC 14.1, PT 16.6, AST 40, Alkphos 258, troponin elevated, influenza negative. CTA abd on 11/27/19 showed 'No aor tic aneurysm or dissection. 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 Additionally, there is moderate narrowing of the SMA at the orig in and proximally without fr ank stenosis. There are striated appearance the bilateral kidneys which may reflect pyelonephritis. However, underlying infarct could also be of consideration especially on t he right side. No focal anna ection identified. Multiple probable infarcts are seen of the spleen which are of indeterminate age but may be chronic. Large cystic ovarian neoplasm noted arising from the r ight.' Cardiology was consul jose a and there was no indication for angiography or aggressive treatment. including cardiac cath as patient is high risk for reat stroke. Venous US on 11/28/2019 was negative f or DVT but there was mild bi lateral PAD seen on the arterial doppler on 11/28/19. Neurology was consulted. Brain MRI on 11/29/2019 showed 'Innumerable acute embolic infarcts most prominent in the right oc cipital lobe and bilateral c erebellum, new compared to 11/05/2019. No associated hemorrhage.' There was concern for possible aseptic meningitis, therefore patient underwent lumbar puncture on 11/29/19 and ID was consulted. CT abd/pel vis on 11/28/19 revealing large ovarian mass. Reviewed with ID. Posting Clerk onc following and is considering surgical debulking, follow-up pelvic US on 12/02/19 showing 'Complex primar pascale cystic mass pelvis. Neop lasm must be excluded'. [id number] measured at 496. Cardiology recommended percutaneous biopsy of the mass prior to surgical intervention due to her cardiac risk. Patient underwe nt ovarian mass biopsy on 12/07/2019. Pathology revealing high grade mullerian adenocarcinoma. Posting Clerk onc saw the patient and discussed her diagnosis and treatment options going forward. We had a long discus gurpreet with patient's son and other family members via phone call. They are aware of the results and expectations as well as future care. PT/OT evaluated the patient and are recommending home [facility] PT and 24 hour care. She was to discharge on 12/12 but spiked fevers overnight and is now having abdominal pain, tenderness to palpation, and difficulty urinating. We will check a UA and get CT abdomen as well. Review of Systems A 12 point review of system s was completed and the positives and pertinent negatives were included in the history of present illness/subjective. The remainder of review of systems was negative. Objective Vitals and Measurements T: 38.9 C (Oral) TMIN: 36.6 C (Oral) TMAX: 38.9 C (Oral) HR: 96 RR: 22 BP: 104/66 SpO2: 91% Oxygen Method: Room air Physical Exam GEN: No acute distress, well nourished. pleasan t. HEENT: Oropharynx clear, mucous membranes moist , PERRL NECK: Supple, no jugular venous distention, tra [place] midline. CV: Regular rate and rhythm. no murmurs, rubs, or gallops. PULM: Clear to auscultation bilaterally. No whe ezes or crackles. ABD: Soft, nontender, nondistended, normoactive bowel sounds. EXT: No clubbing, cyanosis, or edema. Pedal pul ses present. NEURO: Non-focal, moves all extremities. Alert and oriented x 4. Lab Results Common Labs - This Encounter, Most Recent, Last 24 hours Last 24 Hours Hematology-CBC 12/13/19 Coag 12/13/19 General Chemistry 12/13/19 WBC:11.6 (H) INR: 1.69 Sodium: 136 RBC:3.30 (L) PT:19.3 (H) Potassium:3.4 (L) Hgb:10.2 (L) Chloride: 100 Hct:30.8 (L) CO2: 26 MCV: 93.1 Anion Gap: 13 MCH: 30.8 Glucose Level:110 (H) MCHC: 33.1 BUN: 10 RDW: 14.9 Creatinine: 0.69 Plt: 310 eGFR Non- Am: >60 eGFR Afr/Amer: >60 Calcium: 8.4 Additional No qualifying data available. This document was transcrib ed by yayo Landrum for Provider: Dr. Yoo on 12/13/2019. ISaad, have revi ewed and agree with all documentation in this transcribed note. Electronically Signed By: Saad Yoo DO On 12/13/19 20:24 Co Signature By: Modify Signature By: Nathalie Landrum On 12/13/19 10:05 History and Physical Patient: JOSEPH VALDIVIA MA 12/13/2019 [facility] Age: 79 years Sex: F : 1940 Active Ins urance: MEDICARE [id number] [facility] Admitting MD: Dennys Yoo DO Location: [facility] B3A: B331: 01 PCP: Carol Ruff MD Author: Elsie Velasco MD Subjective Ms Valdivia is a pleasant 8 8 year old female admitted initially for abdominal pain and weakness, found to have a pelvic mass with CT-guided biopsy results indicative of adenocarcinoma. Patient states she is doing 'okay' today. She denies feeling any pain. She continues to tolerate a regular diet without nausea or vomiting. She reports she is urinating without difficulty, and having r egular bowel movements witho ut any constipation or diarrhea. She denies fever or chills. She denies numbness or tingling, or pain in her extremities. She denies chest pain, and shortness of breath. Of note, she did have one e levated temperature of 38.1 overnight around 0400. It was not sustained this morning at 0650. No tachycardia. Per RN report no acute issu es overnight. She continues on Warfarin bridge, INR today 1.69. Her son is primary caretake r and contact, RN recommends phoning him into discussion today. 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 ) ENMT: No nasal congestion or sore throat Respiratory: No shortness of breath, wheezing, or cough Cardiovascular: No chest pain, palpitations, or syncope Gastrointestinal: No nausea, vomiting, diarrhea , or constipation Genitourinary: No hematuria or genital pruritus Candice/Lymph: No excessive bruising or lymphadeno travon Musculoskeletal: No joint pain or muscular pain Integumentary: No rash, pruritus, or abrasions Psychiatric: No depression or excessive anxiety Objective Vitals and Measurements T: 36.8 C (Oral) TMIN: 36.6 C (Oral) TMAX: 38.1 C (Oral) HR: 89 RR: 18 BP: 124/72 SpO2: 94% Oxygen Method: Room air Vital Signs - Low/High/Last - This Encounter, M ost Recent, Last 24 hours (All documented values resulted over the prior 24 hours) Temperature Low: 36.6 (12/11 12:00) Temperature PO High: 38.1 H (12/12 04:00) Temperature PO Last: 36.8 (12/12 06:50) Temperature PO HR Low: 65 (12/11 15:00) High: 92 (12/12 00:00) Last: 89 (12/12 04:00) Respiratory Rate Low: 18 (12/12 04:00) High: 18 (12/11 07:45) Last: 18 (12/12 04:00) NIBP Low: 110/64 (12/12 00:00) High: 148/75 H (12/11 07:45) Last: 124/72 (12/12 04:00) NIBP Mean Low: 79 (12/12 00:00) High: 89 (12/12 04:00) Last: 89 (12/12 04:00) Weight (kg) Admit: 72.56 (11/27 10:35) Current: 70.60 (12/10 02:00) Previous: 69.30 (12/09 03:00) Gain/Loss: 1.30 Ventilation SaO2 Low: 91 (12/11 15:00) High: 94 (12/12 04:00) Last: 94 (12/12 04:00) Physical Exam GENERAL: Nontoxic, no acute distress, alert and oriented to self and situation. HEENT: Normocephalic, atrau matic, no scleral icterus or conjunctival injection. NECK: supple, no rigidity. LUNGS: Normal respiratory effort. CV: RRR, on tele GI: soft, mild distention, palpable mass to LLQ, mild tenderness with palpation of bilateral lower quadrants : no suprapubic or flank tenderness. EXT: 2+ pitting edema to BLE SKIN: warm and dry, no ulcerations. Lab Results Common Labs - This Encounter, Most Recent, Last 24 hours Last 24 Hours Hematology-CBC 12/13/19 Coag 12/13/19 General Chemistry 12/13/19 WBC:11.6 (H) INR: 1.69 Sodium: 136 RBC:3.30 (L) PT:19.3 (H) Potassium:3.4 (L) Hgb:10.2 (L) Chloride: 100 Hct:30.8 (L) CO2: 26 MCV: 93.1 Anion Gap: 13 MCH: 30.8 Glucose Level:110 (H) MCHC: 33.1 BUN: 10 RDW: 14.9 Creatinine: 0.69 Plt: 310 eGFR Non- Am: >60 eGFR Afr/Amer: >60 Calcium: 8.4 Additional No qualifying data available. Antibiotics Inactive acyclovir: 720 mg, IV, q8hr 11/27/19 17:25 - 08:57 ( 8 days ) acyclovir: 370 mg, IV, q12hr 12/04/19 08:57 - 0 12/05/19 15:26 ( 2 days ) Medications - This Encounter, All Results, Last 6 months Scheduled amLODIPine: 5 mg, PO, qDay aspirin 81 mg Chew Tab: 81 mg, PO, Daily atorvastatin 40 mg Tab: 40 mg, PO, qDay ca carb/vit D 500mg rosebud/200 I 1 Tab, PO, BID carvedilol 3.125 mg Tab: 6.25 mg, PO, BID citalopram 10 mg tab: 10 mg, PO, Daily cyanocobalamin 100 mcg Tab: 50 mcg, PO, qDay enoxaparin 80 mg/0.8 mL Inj: 70 mg, SUBCUT, q12 hr famotidine 20 mg Tab: 20 mg, PO, Daily sodium chloride: 10 mL, IV Push, q12hr warfarin 5 mg Tab: 5 mg, PO, qDay PRN acetamin/butal/caff (325-50-40 1 Tab, PO, q6hr, PRN: Headache acetaminophen 325 mg Tab: 650 mg, PO, q4hr, PRN : Pain Mild (1-3) acetaminophen 500 mg Tab: 500 mg, PO, q6hr, PRN : Pain/Temperature albuterol (0.083%) 2.5 mg/3 mL 2.5 mg, 3 mL, NEB - inhalation, q4hr, PRN: Shortness of breath or wheezing docusate/senna (50/8.6) mg Tab 2 Tab, PO, qHS, PRN: Constipation fentaNYL 50 mcg/mL 2 mL Inj : 25 mcg, IV Push, once, PRN: Pain Moderate to Severe (4-10) hydrALAZINE 20 mg/mL 1mL Inj: 5 mg, IV Push, q4 hr, PRN: Other (see Comments) HYDROcod/acetamin (5/325) m g T 1 - 2 Tab, PO, q4hr, PRN: Pain Moderate to Severe (4-10) magnesium oxide 400 mg Tab: 400 mg, PO, Per Par ameter, PRN: Hypomagnesemia magnesium sulf /SW: 2 gm, 5 0 mL, 25 mL/hr, IV, Per Parameter, PRN: Hypomagnesemia magnesium sulf /SW: 4 gm, 1 00 mL, 25 mL/hr, IV, Per Parameter, PRN: Hypomagnesemia morphine 2 mg/mL 1mL Inj: 2 mg, IV Push , q4hr, PRN: Pain Scale (See Comments) nalOXone 0.4 mg/mL 1mL Inj: 0.2 mg, IV Push, q2min, PRN: Respiratory depression ondansetron 2 mg/mL Inj 2mL : 4 mg, IV Push, q4hr, PRN: Nausea / Vomiting 1st Choice oxyCODONE 5 mg Tab Immediate R 5 mg, PO, q6hr, PRN: Pain potassium bicarbonate 20 mEq E 20 mEq, PO, Per Parameter, PRN: Hypokalemia potassium bicarbonate 20 mEq E 40 mEq, PO, Per Parameter, PRN: Hypokalemia potassium Cl / SW Premix: 1 0 mEq, 100 mL, 100 mL/hr, IV, Per Parameter, PRN: Hypokalemia prochlorperazine 5 mg/mL 2 mL 5 mg, IV Push, q4hr, PRN: Nausea / Vomiting 2nd Choice sodium chloride: 10 mL, IV Push, Per Parameter, PRN: Other (see Comments) temazepam 7.5 mg Cap: 7.5 mg, PO, qHS, PRN: Ins omnia IV NaCl 0.9%: 20 mL/hr, IV, Stop: 12/30/19 11:07:0 0 [facility] Diagnostic Results Radiology - Full Interpretation, Last 24 hrs Name: JOSEPH VALDIVIA Account: [id number] : 1940 Result Date: Verified By: at : +++++++++++++++++++++++++++++++++++++++++++++++ ++++++++ Assessment/Plan Ms Valdivia is a pleasant [age] year old female admitted initially for abdominal pain and weakness, found to have a pelvic mass, 14.[address] and US imaging with CT-guided biopsy results showing hi gh grade adenocarcinoma (primary source ovarian) . 1. High grade adenocarcimona: - Pelvic US findings: Compl ex, diffuse cystic components; multiple irregular internal soft tissue densities. 14.5 x 9.1 x 14.8 cm. +vascular flow. +free fluid. Origin R ovary from CT. - No lymphadenopathy noted on CT C/A/P during admission although there is mild ascites, primarily in the pelvis. Potential (but very unlikely) metastasis with 1.5 cm nodular density in the left lower l sreedhar and within the spleen an d kidneys with notable hypodensities (but also read as potentially infarcts). - CA125 496 on 12/03/19 - We previously reviewed th at the mass is most likely ovarian in etiology. We reviewed there is no definitive way to exclude malignancy without surgical removal. Given her moderate cardiac risk and the cardiology evaluation, we r ecommend proceeding forward with an CT-guided biopsy and drainage of cystic contents with cytology prior 2. Anemia - Chronic VS malignancy related - Continue to trend labs - Transfuse if less than 7. 3. Recent NSTEMI - Cardiology following. Appreciative of recomme ndations. 4. 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 - Neurology following 5. Recent h/o DVT - IVC filter in place - Eliquis transitioned to lovenox on 12/03/19 (80 mg q12 hrs), warfarin 5 mg Patient seen and examined. Agree with above assessment and plan. Discussed briefly with patient the diagnosis and chemo but she preferred that I speak with her son. I tried to call him but no answer, left message. Hope to have a plan today. Dr Helen Black Posting Clerk Onc Attending [facility] [phone] (cell) Electronically Signed By: Helen Black MD On 12/13/19 08:01 Co Signature By: Modify Signature By: Elsie Velasco MD On 12/13/19 07:54 History and Physical Patient: JOSEPH VALDIVIA MA 12/12/2019 [facility] Age: 79 years Sex: F : 1940 Active Ins urance: MEDICARE [phone] [facility] Admitting MD: Dennys Yoo DO Location: [facility] B3A: B331: 01 PCP: Carol Ruff MD Author: Gaurav Rod DO Subjective called re MR result d/w Dr. Yoo face to face at length pt reports language diff pr ior to last MR has improved since to baseline per son and pt no MUNOZ Review of Systems 14 item ros otherwise negative Objective Vitals and Measurements T: 37.0 C (Oral) TMIN: 36.4 C (Oral) TMAX: 37.3 C (Oral) HR: 65 RR: 18 BP: 134/77 SpO2: 91% Oxygen Method: Room air Physical Exam const - lying in bed nad neuro - ms awake and alert, speech and lang fluent spontaneous neg dysarthria, she was able to name and repeat without any difficulty. No hesitation orientation: Person place month year cn - perrl, face symmetric eomi, no gaze deviat ion motor -non focal HEENT: oropharynx clear, mucous membranes moist NECK: supple, no jugular venous distention CV: regular rate and rhythm, no rubs or gallops PULM: normal respiratory excursion EXTR: no cyanosis, clubbing or edema Lab Results Common Labs - All Encounters, All Results, Last 1 month Last Month Lipid Profile: Basic Metabolic Panel: Hematology: Triglyceride: ------ Sodium: 136 (12/12/19) Hgb: 10.2 (12/12/19) Cholesterol Total: ------ Potassium: 3.4 (12/12/19) HgbA1C: ------ HDL Cholesterol: ------ Phosphorus: ------ WBC: 11.6 (12/12/19) LDL Ca (11/30/19) M.8 (11/30/19) Plt: 327 (12/12/19) BUN: 10 (12/12/19) INR: 1.31 (12/12/19) Creatinine: 0.69 (12/12/19) Creatinine Clearance: ------ Additional - Last Month %HDL: 28.7 (11/30/19) A/G Ratio: 0.9 (11/30/19) ABS Baso: 0.1 (12/07/19) ABS Eos: 0.1 (12/07/19) ABS Lymph: 0.9 (12/07/19) ABS [place]: 1.1 (12/07/19) ABS Neut: 9.9 (12/07/19) Albumin: 2.4 (11/30/19) Alkphos: 166 (11/30/19) ALT: 22 (11/30/19) Anion Gap: 13 (12/12/19) AST: 45 (11/30/19) Baso.: 0.5 (12/07/19) Bili Total: 0.5 (11/30/19) Blood Glucose, Point of Care: 130 mg/dL () CA 125: 496.0 (12/04/19) Calcium: 8.4 (12/12/19) CBC Scan: Auto Diff (12/07/19) Chloride: 100 (12/12/19) Chol/Tri.40 (11/30/19) Cholesterol: 115 (11/30/19) Cholesterol/HDL: 3 (11/30/19) CK: 243 (11/28/19) CO2: 26 (12/12/19) Cocci IgG: Negative (11/28/19) Cocci IgM: Negative (11/28/19) CRP High Sens: 62.34 (11/28/19) CSF Additional Tube Counted: 1 (11/29/19) CSF Color - Spun: No Xantho (11/29/19) CSF Eos: 1 (11/29/19) CSF Glucose: 52 (11/29/19) CSF Lymphs: 0 (11/29/19) CSF Nucleated Count: 114 /uL (11/29/19) CSF Number of Tubes: 4 (11/29/19) CSF Polys.: 99 (11/29/19) CSF Protein: 72 (11/29/19) CSF RBC Count: 94401 /uL (11/29/19) CSF RBC Count, add: 83821 /uL (11/29/19) CSF Slide Comment: See Comment (11/29/19) CSF Source.: Lumbar Puncture (11/29/19) CSF Tube Counted: 3 (11/29/19) CSF Volume: 8.0 (11/29/19) Degmacytes (Bite Cells): 1+ (11/29/19) eGFR Afr/Amer: >60 (12/12/19) eGFR Non- Am: >60 (12/12/19) Eos Abs Man: 0.2 (11/15/19) Eos.: 0.7 (12/07/19) Globulin: 2.6 (11/30/19) Glucose (POCT) Automated: 135 (12/10/19) Glucose Level: 110 (12/12/19) Hct: 30.1 (12/12/19) HDL: 33 (11/30/19) Heparin Anti-Xa, UFH: 0.37 (12/10/19) Hepatitis A AB, IgM: Non-Reactive (11/27/19) Hepatitis Bc Ab, IgM: Non-Reactive (11/27/19) Hepatitis Bs Ag: Non-Reactive (11/27/19) Hepatitis C Ab: Non-Reactive (11/27/19) HSV 1 and/or 2 Antibodies IgM, CSF.: 0.24 ( 01/21) HSV 1/2 Ab Screen IgG, CSF.: <0.34 (12/06/19) Influenza A, PCR: Negative (11/27/19) Influenza B, PCR: Negative (11/27/19) Lactic Acid: 1.0 (11/29/19) LDL/HDL: 2 (11/30/19) Lymph Abs Man: 0.5 (11/15/19) Lymphs: 7.7 (12/07/19) Man Bands: 2 (11/15/19) Man Eos: 1 (11/15/19) Man Lymphs: 3 (11/15/19) Man Monos: 14 (11/15/19) Man Segs: 80 (11/15/19) MCH: 30.6 (12/12/19) MCHC: 33.7 (12/12/19) MCV: 90.6 (12/12/19) [place] Abs Man: 2.1 (11/15/19) Monos.: 9.3 (12/07/19) Neut Abs Man: 12.5 (11/15/19) Neuts: 81.8 (12/07/19) Plt Est: Adequate (11/29/19) PLT Morph: Normal (11/29/19) Procalcitonin: 0.08 (11/27/19) Protein, Total: 5.0 (11/30/19) PT: 14.9 (12/12/19) PTT: 53.4 (12/07/19) RBC: 3.33 (12/12/19) RBC Morph: See Morphology (11/29/19) RDW: 14.9 (12/12/19) RSV, PCR: Negative (11/27/19) Strep A, Rapid Test: Negative (11/27/19) Strep Pneumo Ag, Urine.: Negative (11/29/19) Triglycerides: 82 (11/30/19) Troponin I: 5.99 (11/29/19) VLDL: 16 (11/30/19) VZV PCR Source: CSF (12/04/19) VZV Real-TimePCR: Not Detected (12/04/19) Antibiotics Inactive acyclovir: 720 mg, IV, q8hr 11/27/19 17:25 - 08:57 ( 8 days ) acyclovir: 370 mg, IV, q12hr 12/04/19 08:57 - 0 12/05/19 15:26 ( 2 days ) Diagnostic Results Radiology - Full Interpretation, Last 24 hrs Name: JOSEPH VALDIVIA Account: [id number] : 1940 Result Date: 12/11/19 22:09 Verified By: Graham Diaz MD at 12/11/19 23: 07 Report : MR Brain wo+w Con [facility] Final Report Clinical History and Study Details: aphasia, ne oplasia Contrast Information: 15CC PROHANCE TECHNIQUE: Clinical Event : Neuro foll owing. 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 No associated hemo rrhage.' S/p lumbar puncture 11/29. CSF fluid negative. ID following. VZV was negative, HSV negative. Acyclovir stopped. Patient has been having waxing and waning expressive aphasia 12/09. Will follow up MRI results -Gastroenteritis. supportive care. Multiplanar multisequence M R imaging of the brain obtained with and without contrast administration. 15 mL ProHance contrast was intravenously administered. FINDINGS: Comparison made to previous study dated 0 Multifocal scattered puncta te multiple scattered punctate subcentimeter acute infarcts within the watershed regions of the cerebral hemispheres, right greater than left, and cerebellum. There is also focal infarction of the left hippocampus. Interval development of T2/ FLAIR hyperintensity of the left medial temporal lobe. Scattered punctate low sign al foci of the cerebral hemispheres on gradient echo imaging suggestive for cerebral amyloid angiopathy. Focal encephalomalacia of t he left cerebellar hemisphere consistent with encephalomalacia. No abnormal contrast enhancement of the cerebru m or cerebellum. Generalized cerebral volume loss. Chronic white matter microvascular ischemic change. No extra-axial collections. No midline shift. T he basal cisterns are patent. Expansile mucous retention cyst of the right fr ontal sinus noted. IMPRESSION: Multifocal punctate acute i nfarcts of the cerebral anterior middle cerebral arterymiddle cerebral artery watershed regions which may be related to significant carotid disease. Punctate infarcts of the cerebellum are also noted.Fo nilo infarction of the left hippocampus. Signal change of the mesial left temporal lobe region may be related to edema from infarction but this presentation can also be associ ated with herpes encephaliti s. Clinical correlation is recommended.Chronic white matter microvascular ischemic change.Focal encephalomalacia of the left cerebral hemisphere related to remote infarct. Scattered punctate low sign al foci of the cerebral hemispheres on gradient echo imaging suggestive for cerebral amyloid angiopathy.Expansile mucous retention cyst of the right frontal sinus. Findings were discussed with Nurse Lord 12/11/19 9:58 pm. CALLBACK at Dec 11 2019 11:0 2PM PST by teressa:IN Patient: Dr Zepeda discussed with Nurse Peace HOWE at 10:58 PM PDT Report Dictated by Radiologist: GRAHAM DIAZ M.D. Diplomate [place] [employer] [facility] Requisition#: [id number] Electronically Signed by WILBERT DIAZ 2019-12-11 23:07:07.22Transcribed by: [email or web address] 12/11/19 23:07 +++++++++++++++++++++++++++++++++++++++++++++++ ++++++++ Assessment/Plan Aphasia R47.01 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 Calf pain M79.669 CVA (cerebral vascular accident) I63.9 New cerebral ischemic infar ction patient at high risk suspect underlying cancer likely hypercoagulable plus prior risk patient is on Coumadin and aspirin we discussed bleeding risk with the patient and son at length patient has a myloid angiopathy suspected on MR also which will raise her bleed risk given the risks and benefits recommended patient stay on anticoagulation feel that her risk of future stroke is extremely high Blood pressure recommendati ons less than 140/90 high intensity statin CVA risk factor management discussed at length outpatient follow-up recommended nothing further from neurology at this point patient is maximally treated >35 min with HPI exam imaging discussion with Ankur Yoo face to face Elevated troponin I level R79.89 Gastroenteritis K52.9 Headache R51 Photophobia of both eyes H53.143 Toe pain, right M79.674 Electronically Signed By: Gaurav Rod DO On 12/12/19 16:33 Co Signature By: Modify Signature By: History and Physical Patient: JOSEPH VALDIVIA MA 12/12/2019 [facility] Age: 79 years Sex: F : 1940 Active Ins urance: MEDICARE [phone] [facility] Admitting MD: Dennys Yoo DO Location: [facility] B3A: B331: 01 PCP: Carol Ruff MD Author: Nathalie Landrum Assessment/Plan Aphasia R47.01 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 Calf pain M79.669 CVA (cerebral vascular accident) I63.9 Elevated troponin I level R79.89 Gastroenteritis K52.9 Headache R51 Photophobia of both eyes H53.143 Toe pain, right M79.674 -Recurrent CVA. Neuro follo wing. 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 No associated hemor rhage.' S/p lumbar puncture 11/29. CSF fluid negative. ID following. VZV was negative, HSV negative. Acyclovir stopped. Patient has been having waxing and waning expressive aphasia 12/09. follow up MRI results. Neurology to evaluate -Gastroenteritis. supportive care. -elevated trop. Stress test showed inf wall PA, with no reversible defect. med management -Hx of DVT. s/p IVC filter. No evidence of DVT on US. Cardiology following. No plan for inpatient cardiac cath due to risk for stroke. 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 CT scan revealing large ovarian mass. Reviewed with cytogenetic technician onc. Pelvic US showing 'Complex primarily cystic mass pelvis. Neoplasm must be excluded'. Posting Clerk o nc considering surgical debu lking. Her CEA level was elevated at 496. Eliquis held, on heparin gtt. 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 Stress test showed in f wall PA, with no reversible defect. Continue ASA, Coreg, Statin. Continue Lovenox and Warfarin. - PT/OT to re-evaluate. 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 Patient will need to follow up with cytogenetic technician/oncology as outpatient upon discharge. DVT Prophy: SCDs, Lovenox and Warfarin Code status: Full code Dispo: Discharge in am pending neurology and PT /OT recs Subjective No new complaints. Denies f /c, cp, sob, n/v, d/c. Nurse reports no events overnight. Review of Systems A 12 point review of system s was completed and the positives and pertinent negatives were included in the history of present illness/subjective. The remainder of review of systems was negative. Objective Vitals and Measurements T: 36.6 C (Oral) TMIN: 36.4 C (Oral) TMAX: 37.3 C (Oral) HR: 76 RR: 18 BP: 128/76 SpO2: 94% Oxygen Method: Room air Physical Exam GEN: No acute distress, well nourished. pleasan t. HEENT: Oropharynx clear, mucous membranes moist , PERRL NECK: Supple, no jugular venous distention, tra wellington midline. CV: Regular rate and rhythm. no murmurs, rubs, or gallops. PULM: Clear to auscultation bilaterally. No whe ezes or crackles. ABD: Soft, nontender, nondistended, normoactive bowel sounds. EXT: No clubbing, cyanosis, or edema. Pedal pul ses present. NEURO: Non-focal, moves all extremities. Alert and oriented x 4. Lab Results Common Labs - This Encounter, Most Recent, Last 24 hours Last 24 Hours Hematology-CBC 12/12/19 Coag 12/12/19 General Chemistry 12/12/19 WBC:11.6 (H) INR: 1.31 Sodium: 136 RBC:3.33 (L) PT:14.9 (H) Potassium:3.4 (L) Hgb:10.2 (L) Chloride: 100 Hct:30.1 (L) CO2: 26 MCV: 90.6 Anion Gap: 13 MCH: 30.6 Glucose Level:110 (H) MCHC: 33.7 BUN: 10 RDW: 14.9 Creatinine: 0.69 Plt: 327 eGFR Non- Am: >60 eGFR Afr/Amer: >60 Calcium: 8.4 Additional No qualifying data available. Diagnostic Results Radiology - Full Interpretation, Last 24 hrs Name: JOSEPH VALDIVIA Account: [id number] : 1940 Result Date: 12/11/19 22:09 Verified By: Graham Diaz MD at 12/11/19 23: 07 Report : MR Brain wo+w Con [facility] Final Report Clinical History and Study Details: aphasia, ne oplasia Contrast Information: 15CC PROHANCE TECHNIQUE: Clinical Event : Neuro foll owing. 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 No associated hemo rrhage.' S/p lumbar puncture 11/29. CSF fluid negative. ID following. VZV was negative, HSV negative. Acyclovir stopped. Patient has been having waxing and waning expressive aphasia 12/09. Will follow up MRI results -Gastroenteritis. supportive care. Multiplanar multisequence M R imaging of the brain obtained with and without contrast administration. 15 mL ProHance contrast was intravenously administered. FINDINGS: Comparison made to previous study dated 0 Multifocal scattered puncta te multiple scattered punctate subcentimeter acute infarcts within the watershed regions of the cerebral hemispheres, right greater than left, and cerebellum. There is also focal infarction of the left hippocampus. Interval development of T2/ FLAIR hyperintensity of the left medial temporal lobe. Scattered punctate low sign al foci of the cerebral hemispheres on gradient echo imaging suggestive for cerebral amyloid angiopathy. Focal encephalomalacia of t he left cerebellar hemisphere consistent with encephalomalacia. No abnormal contrast enhancement of the cerebru m or cerebellum. Generalized cerebral volume loss. Chronic white matter microvascular ischemic change. No extra-axial collections. No midline shift. T he basal cisterns are patent. Expansile mucous retention cyst of the right fr ontal sinus noted. IMPRESSION: Multifocal punctate acute i nfarcts of the cerebral anterior middle cerebral arterymiddle cerebral artery watershed regions which may be related to significant carotid disease. Punctate infarcts of the cerebellum are also noted.Fo nilo infarction of the left hippocampus. Signal change of the mesial left temporal lobe region may be related to edema from infarction but this presentation can also be associ ated with herpes encephaliti s. Clinical correlation is recommended.Chronic white matter microvascular ischemic change.Focal encephalomalacia of the left cerebral hemisphere related to remote infarct. Scattered punctate low sign al foci of the cerebral hemispheres on gradient echo imaging suggestive for cerebral amyloid angiopathy.Expansile mucous retention cyst of the right frontal sinus. Findings were discussed with Nurse Lord 12/11/19 9:58 pm. CALLBACK at Dec 11 2019 11:0 2PM PST by teressa:IN Patient: Dr Zepeda discussed with Nurse Peace HOWE at 10:58 PM PDT Report Dictated by Radiologist: GRAHAM DIAZ M.D. Diplomate [place] [employer] [facility] Requisition#: [id number] Electronically Signed by WILBERT DIAZ 2019-12-11 23:07:07.22Transcribed by: [email or web address] 12/11/19 23:07 +++++++++++++++++++++++++++++++++++++++++++++++ ++++++++ This document was transcrib ed by yayo Landrum for Provider: Dr. Yoo on 12/12/2019. I, Saad Yoo, have revi ewed and agree with all documentation in this transcribed note. Electronically Signed By: Saad Yoo DO On 12/13/19 08:02 Co Signature By: Modify Signature By: Nathalie Landrum On 12/12/19 13:03 History and Physical Patient: JOSEPH VALDIVIA MA 12/11/2019 [facility] Age: 79 years Sex: F : 1940 Active Ins urance: MEDICARE [phone] [facility] Admitting MD: Dennys Yoo DO Location: [facility] B3A: B331: 01 PCP: Carol Ruff MD Author: Nathalie Landrum Assessment/Plan Aphasia R47.01 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 Calf pain M79.669 CVA (cerebral vascular accident) I63.9 Elevated troponin I level R79.89 Gastroenteritis K52.9 Headache R51 Photophobia of both eyes H53.143 Toe pain, right M79.674 -Recurrent CVA. Neuro follo wing. 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 No associated hemor rhage.' S/p lumbar puncture 11/29. CSF fluid negative. ID following. VZV was negative, HSV negative. Acyclovir stopped. Patient has been having waxing and waning expressive aphasia 12/09. Will follow up MRI results -Gastroenteritis. supportive care. -elevated trop. Stress test showed inf wall PA, with no reversible defect. med management -Hx of DVT. s/p IVC filter. No evidence of DVT on US. Cardiology following. No plan for inpatient cardiac cath due to risk for stroke. 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 CT scan revealing large ovarian mass. Reviewed with cytogenetic technician onc. Pelvic US showing 'Complex primarily cystic mass pelvis. Neoplasm must be excluded'. Posting Clerk o nc considering surgical debu lking. Her CEA level was elevated at 496. Eliquis held, on heparin gtt. She is s/p percutaneous biopsy on 12/06, pending pathology report. May consider switching anticoagulatio n to warfarin due to breakth rough strokes on Eliquis. Stress test showed inf wall PA, with no reversible defect. Continue ASA, Coreg, Statin. Continue Lovenox and Warfarin. - PT/OT to re-evaluate. Follow up recs for disc harge DVT Prophy: SCDs, Lovenox and Warfarin Code status: Full code Dispo: Possible dc tomorrow pending MRI results and PT/OT recs Subjective No new complaints. Denies f /c, cp, sob, n/v, d/c. Nurse reports no events overnight. Review of Systems A 12 point review of system s was completed and the positives and pertinent negatives were included in the history of present illness/subjective. The remainder of review of systems was negative. Objective Vitals and Measurements T: 37.0 C (Oral) TMIN: 36.7 C (Oral) TMAX: 37.0 C (Oral) HR: 86 RR: 16 BP: 127/70 SpO2: 92% Oxygen Amount: 1 Oxygen Method: Room air WT: 70.6 kg Physical Exam GEN: No acute distress, well nourished. pleasan t. HEENT: Oropharynx clear, mucous membranes moist , PERRL NECK: Supple, no jugular venous distention, tra wellington midline. CV: Regular rate and rhythm. no murmurs, rubs, or gallops. PULM: Clear to auscultation bilaterally. No whe ezes or crackles. ABD: Soft, nontender, nondistended, normoactive bowel sounds. EXT: No clubbing, cyanosis, or edema. Pedal pul ses present. NEURO: Non-focal, moves all extremities. Alert and oriented x 4. Lab Results Common Labs - This Encounter, Most Recent, Last 24 hours Last 24 Hours Hematology-CBC 12/11/19 Coag 12/11/19 POC Glucose 12/11/19 WBC:12.1 (H) INR: 1.19 Glucose (POCT) Automated:135 (H) RBC:3.45 (L) PT:13.6 (H) Hgb:10.6 (L) Hct:32.2 (L) MCV: 93.4 MCH: 30.7 MCHC: 32.9 RDW: 14.6 Plt: 377 Additional No qualifying data available. Diagnostic Results Radiology - Full Interpretation, Last 24 hrs Name: JOSEPH VALDIVIA Account: [id number] : 1940 Result Date: 12/10/19 11:58 Verified By: Daren Richard DO at 12/10/19 12:11 Report : CT Head wo Con EXAM: CT Head wo Con CLINICAL HISTORY: recent strokes, aphasia, on A C, check for ICH Volumetric axial acquisitio n was obtained noncontrast. Correlation is made with the study dated 05 December 2019. Widening and deepening of t he cortical sulci is seen diffusely in association with prominence of the lateral and third ventricles. Some periventricular white matter low density is seen. No hyperdense a reas are seen to suggest an acute hemorrhage. No midline shift or mass effect is seen. Focal encephalomalacia is seen in the left cerebellum posteriorly. No abnormal extracerebral fluid collections are identified. Some vascular ca lcifications are present. The calvarium is unremarkable. Some fluid and/or mucosal thickening is seen in the frontal, ethmoid, and sphenoid sinuses. There does appear to be s ome thinning of the bone in the right frontal si nus region. IMPRESSION: 1. Probable old left cerebellar infarct 2. Atrophy 3. Nonspecific white matter changes 4. Atherosclerosis 5. Probable sinusitis of th e frontal, ethmoid, and sphenoid sinuses. The thinning of the bone in the frontal region should be assessed to exclude an underlying neoplasia. 12/10/19 12:04 +++++++++++++++++++++++++++++++++++++++++++++++ ++++++++ This document was transcrib ed by yayo Landrum for Provider: Dr. Yoo on 12/11/2019. ISaad, have revi ewed and agree with all documentation in this transcribed note. Electronically Signed By: Saad Yoo DO On 12/12/19 11:05 Co Signature By: Modify Signature By: Nathalie Landrum On 12/11/19 11:25 History and Physical Patient: JOSEPH VALDIVIA MA 12/11/2019 [facility] Age: 79 years Sex: F : 1940 Active Ins urance: MEDICARE [phone] [facility] Admitting MD: Dennys Yoo DO Location: [facility] B3A: B331: 01 PCP: Carol Ruff MD Author: Kevin Kee MD cc aphasia Subjective Discussed case with Dr. Anthony reeves. Apparently patient has been having waxing and waning expressive aphasia in which it appears she cannot get her words out. By the time I saw her this afternoon she had ret urned to baseline. Concern for new stroke by [facility] team. Objective Vitals and Measurements T: 36.9 C (Oral) TMIN: 36.3 C (Oral) TMAX: 37.2 C (Oral) HR: 77 RR: 16 BP: 123/70 SpO2: 96% Oxygen Amount: 2 Oxygen Method: Nasal cannula WT: 69.3 kg Physical Exam const - lying in bed nad neuro - ms awake and alert, speech and lang fluent spont neg dysarthria, she was able to name and repeat without any difficulty. Able to name animals. No hesitation orientation: Person cn - perrl, face symmetric eomi, no gaze deviat ion motor -handgrips appear equal but poor effort Lab Results Common Labs - All Encounters, All Results, Last 1 month Last Month Lipid Profile: Basic Metabolic Panel: Hematology: Triglyceride: ------ Sodium: 136 (12/07/19) Hgb: 9.2 (12/10/19) Cholesterol Total: ------ Potassium: 4.0 (12/07/19) HgbA1C: ------ HDL Cholesterol: ------ Phosphorus: ------ WBC: 11.0 (12/10/19) LDL Ca (11/30/19) M.8 (11/30/19) Plt: 283 (12/10/19) BUN: 9 (12/07/19) INR: 1.32 (12/10/19) Creatinine: 0.81 (12/07/19) Creatinine Clearance: ------ Additional - Last Month %HDL: 28.7 (11/30/19) A/G Ratio: 0.9 (11/30/19) ABS Baso: 0.1 (12/07/19) ABS Eos: 0.1 (12/07/19) ABS Lymph: 0.9 (12/07/19) ABS [place]: 1.1 (12/07/19) ABS Neut: 9.9 (12/07/19) Albumin: 2.4 (11/30/19) Alkphos: 166 (11/30/19) ALT: 22 (11/30/19) Anion Gap: 10 (12/07/19) AST: 45 (11/30/19) Baso.: 0.5 (12/07/19) Bili Total: 0.5 (11/30/19) Blood Glucose, Point of Care: 130 mg/dL () CA 125: 496.0 (12/04/19) Calcium: 8.4 (12/07/19) CBC Scan: Auto Diff (12/07/19) Chloride: 101 (12/07/19) Chol/Tri.40 (11/30/19) Cholesterol: 115 (11/30/19) Cholesterol/HDL: 3 (11/30/19) CK: 243 (11/28/19) CO2: 29 (12/07/19) Cocci IgG: Negative (11/28/19) Cocci IgM: Negative (11/28/19) CRP High Sens: 62.34 (11/28/19) CSF Additional Tube Counted: 1 (11/29/19) CSF Color - Spun: No Xantho (11/29/19) CSF Eos: 1 (11/29/19) CSF Glucose: 52 (11/29/19) CSF Lymphs: 0 (11/29/19) CSF Nucleated Count: 114 /uL (11/29/19) CSF Number of Tubes: 4 (11/29/19) CSF Polys.: 99 (11/29/19) CSF Protein: 72 (11/29/19) CSF RBC Count: 29210 /uL (11/29/19) CSF RBC Count, add: 67246 /uL (11/29/19) CSF Slide Comment: See Comment (11/29/19) CSF Source.: Lumbar Puncture (11/29/19) CSF Tube Counted: 3 (11/29/19) CSF Volume: 8.0 (11/29/19) Degmacytes (Bite Cells): 1+ (11/29/19) eGFR Afr/Amer: >60 (12/07/19) eGFR Non- Am: >60 (12/07/19) Eos Abs Man: 0.2 (11/15/19) Eos.: 0.7 (12/07/19) Globulin: 2.6 (11/30/19) Glucose (POCT) Automated: 135 (12/10/19) Glucose Level: 102 (12/07/19) Hct: 28.6 (12/10/19) HDL: 33 (11/30/19) Heparin Anti-Xa, UFH: 0.37 (12/10/19) Hepatitis A AB, IgM: Non-Reactive (11/27/19) Hepatitis Bc Ab, IgM: Non-Reactive (11/27/19) Hepatitis Bs Ag: Non-Reactive (11/27/19) Hepatitis C Ab: Non-Reactive (11/27/19) HSV 1 and/or 2 Antibodies IgM, CSF.: 0.24 ( 01/21) HSV 1/2 Ab Screen IgG, CSF.: <0.34 (12/06/19) Influenza A, PCR: Negative (11/27/19) Influenza B, PCR: Negative (11/27/19) Lactic Acid: 1.0 (11/29/19) LDL/HDL: 2 (11/30/19) Lymph Abs Man: 0.5 (11/15/19) Lymphs: 7.7 (12/07/19) Man Bands: 2 (11/15/19) Man Eos: 1 (11/15/19) Man Lymphs: 3 (11/15/19) Man Monos: 14 (11/15/19) Man Segs: 80 (11/15/19) MCH: 30.6 (12/10/19) MCHC: 32.4 (12/10/19) MCV: 94.5 (12/10/19) [place] Abs Man: 2.1 (11/15/19) Monos.: 9.3 (12/07/19) Neut Abs Man: 12.5 (11/15/19) Neuts: 81.8 (12/07/19) Plt Est: Adequate (11/29/19) PLT Morph: Normal (11/29/19) Procalcitonin: 0.08 (11/27/19) Protein, Total: 5.0 (11/30/19) PT: 15.0 (12/10/19) PTT: 53.4 (12/07/19) RBC: 3.02 (12/10/19) RBC Morph: See Morphology (11/29/19) RDW: 14.8 (12/10/19) RSV, PCR: Negative (11/27/19) Strep A, Rapid Test: Negative (11/27/19) Strep Pneumo Ag, Urine.: Negative (11/29/19) Triglycerides: 82 (11/30/19) Troponin I: 5.99 (11/29/19) VLDL: 16 (11/30/19) VZV PCR Source: CSF (12/04/19) VZV Real-TimePCR: Not Detected (12/04/19) Antibiotics Inactive acyclovir: 720 mg, IV, q8hr 11/27/19 17:25 - 08:57 ( 8 days ) acyclovir: 370 mg, IV, q12hr 12/04/19 08:57 - 0 12/05/19 15:26 ( 2 days ) Diagnostic Results (12/10/2019 11:[address] Head wo Con) CLINICAL HISTORY: recent strokes, aphasia, on A C, check for ICH Volumetric axial acquisitio n was obtained noncontrast. Correlation is made with the study dated 05 December 2019. Widening and deepening of t he cortical sulci is seen diffusely in association with prominence of the lateral and third ventricles. Some periventricular white matter low density is seen. No hyperdense a reas are seen to suggest an acute hemorrhage. No midline shift or mass effect is seen. Focal encephalomalacia is seen in the left cerebellum posteriorly. No abnormal extracerebral fluid collections are identified. Some vascular ca lcifications are present. The calvarium is unremarkable. Some fluid and/or mucosal thickening is seen in the frontal, ethmoid, and sphenoid sinuses. There does appear to be s ome thinning of the bone in the right frontal si nus region. IMPRESSION: 1. Probable old left cerebellar infarct 2. Atrophy 3. Nonspecific white matter changes 4. Atherosclerosis 5. Probable sinusitis of th e frontal, ethmoid, and sphenoid sinuses. The thinning of the bone in the frontal region should be assessed to exclude an underlying neoplasia. [1] Assessment/Plan Aphasia R47.01 CVA (cerebral vascular accident) I63.9 Headache R51 Orders: MRI Brain wo+w Contrast Patient was seen previously by Dr. Rod this admission. She had imaging this visit showing small acute infarcts most prominent in the right occipital and bilateral cerebellum. She is currently on a nticoagulants. Has had waxin g waning language aphasia. CT scan of the head was completed and did not show any hemorrhage. MRI ordered for further evaluation for possible new strokes. Dr. Rod will be following patient tomorrow Thank you for allowing me to participate in the care of this patient. Kevin Kee MD Neurohospitalist [facility]. This note was prepared tye armstrong [employer] voice recognition program, as well as pre-populated templates and macros. Despite best efforts at rev iewing and proofreading the note, some inadvertent errors may be present. Please contact the author if any clarif ications or corrections are requested. [1] CT Head wo Con; Daren Richard DO 12/10/2019 11:58 MST Electronically Signed By: Kevin Kee MD On 12/10/19 18:18 Co Signature By: Modify Signature By: History and Physical 12/10/2019 Chapitogertrudis mahajanroz Patient: JOSEPH VALDIVIA ( EV) [facility] Age: 79 years Sex: F : 1940 Associated Diagnoses: None Author: Jonathan Gore MD PHD Basic Information Date of Service: 12/10/2019 11:16. Admission Information: Admit Days = 13, Patient Type = Inpatient . Impression and Plan Plan Covering Dr. Echeverria: - Abn troponin - Multifocal stroke - DVT - Abdominal mass Plan: No CP. Stress test showed inf wall PA, with no reversible defect, plan for med management. Cont with aspirin, coreg and statin. Cont with lovenox and warfarin. Stable from cardiac stand point. Discussed with Dr. Yoo.. No CP Subjective Patient Complaint: No CP.. Review of Systems Constitutional: Negative. Respiratory: Negative. Cardiovascular: Negative. Gastrointestinal: Negative. Health Status Intake and Output 24 hour I&O data 24hr I&O Intake Output Balance Yesterday: 428.41 0.00 428.41 Today: 46.22 0.00 46.22 Allergies: Allergic Reactions (Selected) NKA Current medications: Antibiotic Info Inactive acyclovir: 720 mg, IV, q8hr 11/27/19 17:25 - 08:57 ( 8 days ) acyclovir: 370 mg, IV, q12hr 12/04/19 08:57 - 0 12/05/19 15:26 ( 2 days ) , Scheduled amLODIPine 2.5 mg Tab: 5 mg, PO, qDay aspirin 81 mg Chew Tab: 81 mg, PO, Daily atorvastatin 40 mg Tab: 40 mg, PO, qDay ca carb/vit D 500mg rosebud/200 I 1 Tab, PO, BID carvedilol 3.125 mg Tab: 6.25 mg, PO, BID citalopram 10 mg tab: 10 mg, PO, Daily cyanocobalamin 100 mcg Tab: 50 mcg, PO, qDay enoxaparin 80 mg/0.8 mL Inj: 70 mg, SUBCUT, q12h r famotidine 20 mg Tab: 20 mg, PO, Daily sodium chloride: 10 mL, IV Push, q12hr warfarin 5 mg Tab: 5 mg, PO, qDay Discontinued enoxaparin 80 mg/0.8 mL Inj: 73.1 mg, SUBCUT, q1 2hr PRN Meds acetamin/butal/caff (325-50-40 1 Tab, PO, q6hr, PRN: Headache acetaminophen 325 mg Tab: 650 mg, PO, q4hr, PRN: Pain Mild (1-3) acetaminophen 500 mg Tab: 500 mg, PO, q6hr, PRN: Pain/Temperature albuterol (0.083%) 2.5 mg/3 mL 2.5 mg, 3 mL, NEB - inhalation, q4hr, PRN: Shortness of breath or wheezing docusate/senna (50/8.6) mg Tab 2 Tab, PO, qHS, P RN: Constipation fentaNYL 50 mcg/mL 2 mL Inj: 25 mcg, IV Push, once, PRN: Pain Moderate to Severe (4-10) hydrALAZINE 20 mg/mL 1mL Inj: 5 mg, IV Push, q4h r, PRN: Other (see Comments) HYDROcod/acetamin (5/325) mg T 1 - 2 Tab, PO, q4hr, PRN: Pain Moderate to Severe (4-10) magnesium oxide 400 mg Tab: 400 mg, PO, Per Para meter, PRN: Hypomagnesemia magnesium sulf /SW: 2 gm, 50 mL, 25 mL/hr, IV, Per Parameter, PRN: Hypomagnesemia magnesium sulf /SW: 4 gm, 10 0 mL, 25 mL/hr, IV, Per Parameter, PRN: Hypomagnesemia morphine 2 mg/mL 1mL Inj: 2 mg, IV Push, q4hr, P RN: Pain Scale (See Comments) nalOXone 0.4 mg/mL 1mL Inj: 0.2 mg, IV Push, q2min, PRN: Respiratory depression ondansetron 2 mg/mL Inj 2mL: 4 mg, IV Push, q4hr, PRN: Nausea / Vomiting 1st Choice oxyCODONE 5 mg Tab Immediate R 5 mg, PO, q6hr, P RN: Pain potassium bicarbonate 20 mEq E 20 mEq, PO, Per P arameter, PRN: Hypokalemia potassium bicarbonate 20 mEq E 40 mEq, PO, Per P arameter, PRN: Hypokalemia potassium Cl / SW Premix: 10 mEq, 100 mL, 100 mL/hr, IV, Per Parameter, PRN: Hypokalemia prochlorperazine 5 mg/mL 2 m L 5 mg, IV Push, q4hr, PRN: Nausea / Vomiting 2nd Choice sodium chloride: 10 mL, IV Push, Per Parameter, PRN: Other (see Comments) temazepam 7.5 mg Cap: 7.5 mg, PO, qHS, PRN: Inso mnia IV Medications NaCl 0.9%: 20 mL/hr, IV, Stop: 12/30/19 11:07:00 MST ., VS/Measurements 24 hr vital signs (All documented values resulted over the prior 24 hours) Low High Last 36.3 37.2 37.0 (12/09 00:00) (12/09 03:00) (12/09 08:14) Temperature PO Temperature PO Temperature PO HR 74 98 80 (12/08 20:00) (12/09 08:14) (12/09 10:06) RR 16 20 18 (12/09 03:00) (12/08 20:00) (12/09 08:14) NIBP 120/71 151/79 138/76 (12/08 20:00) (12/09 08:14) (12/09 10:06) NIBP Mean 88 88 88 (12/09 00:00) (12/09 00:00) (12/09 00:00) Weight (kg) Admit 72.56 (11/27 10:35) Current 69.30 (12/09 03:00) Previous 71.80 (12/07 04:00) Gain/Loss -2.50 Ventilation Low High Last SaO2 93 97 93 (12/09 08:14) (12/08 20:00) (12/09 08:14) == , Last Documented Vital Signs Temperature PO: 37 deg C Heart Rate: 80 bpm Monitored Cardiac Rhythm: Normal sinus rhythm Resp Rate (Monitor): 18 Breaths/Min Mean Arterial Pressure: 88 mm Hg NIBP Systolic: 138 mm Hg NIBP Diastolic: 76 mm Hg Oxygen Amount: 2 L/min Oxygen Method: Nasal cannula SPO2: 93 % Objective General: No acute distress. Neck: No jugular venous distention. Respiratory: Lungs are clear to auscultation. Cardiovascular: Regular rhythm. Gastrointestinal: Soft. Review / Management Results Review: 24 hr Labs Labs (All documented values resulted over the p rior 24 hours..) Hematology WBC 11.00H Hgb 9.20L Hct 28.60L Plt 283.00 Coagulation PT 15.00H INR 1.32 , Microbiology Studies Recently Resulted [id number] CSF Culture Status: Final 11/29/2019 Lumbar Culture Report: No growth [id number] Gram Stain Status: Gram Stain 11/29/2019 Cerebrospinal Fluid Gram Stain: White Blood Cells seen No organisms seen. Culture Report: . hospital monitor: SR. Electronically Signed By: Jonathan Gore MD PHD On 12/10/19 11:18 Co Signature By: Modify Signature By: History and Physical 12/09/2019 Chapito alvarez Patient: JOSEPH VALDIVIA ( EV) [facility] Age: 79 years Sex: F : 1940 Associated Diagnoses: None Author: Jonathan Gore MD PHD Basic Information Date of Service: 12/09/2019 10:03. Admission Information: Admit Days = 12, Patient Type = Inpatient . Impression and Plan Plan Covering Dr. Echeverria: - Abn troponin - Multifocal stroke - DVT - Abdominal mass Plan: No CP. Plan for stress test today. Cont with aspirin, coreg and statin. Cont with heparin drip, need to change to lovenox and warfarin if no plan for any procedure. Tele monitoring. Discussed with RN.. No CP Subjective Patient Complaint: No CP.. Review of Systems Constitutional: Negative. Respiratory: Negative. Cardiovascular: Negative. Gastrointestinal: Negative. Health Status Intake and Output 24 hour I&O data 24hr I&O Intake Output Balance Yesterday: 125.27 0.00 125.27 Today: 10.00 0.00 10.00 Allergies: Allergic Reactions (Selected) NKA Current medications: Antibiotic Info Inactive acyclovir: 720 mg, IV, q8hr 11/27/19 17:25 - 08:57 ( 8 days ) acyclovir: 370 mg, IV, q12hr 12/04/19 08:57 - 0 12/05/19 15:26 ( 2 days ) , Scheduled amLODIPine 2.5 mg Tab: 2.5 mg, PO, qDay aspirin 81 mg Chew Tab: 81 mg, PO, Daily atorvastatin 40 mg Tab: 40 mg, PO, qDay ca carb/vit D 500mg rosebud/200 I 1 Tab, PO, BID carvedilol 3.125 mg Tab: 6.25 mg, PO, BID citalopram 10 mg tab: 10 mg, PO, Daily cyanocobalamin 100 mcg Tab: 50 mcg, PO, qDay famotidine 20 mg Tab: 20 mg, PO, Daily sodium chloride: 10 mL, IV Push, q12hr PRN Meds acetamin/butal/caff (325-50-40 1 Tab, PO, q6hr, PRN: Headache acetaminophen 325 mg Tab: 650 mg, PO, q4hr, PRN: Pain Mild (1-3) acetaminophen 500 mg Tab: 500 mg, PO, q6hr, PRN: Pain/Temperature albuterol (0.083%) 2.5 mg/3 mL 2.5 mg, 3 mL, NEB - inhalation, q4hr, PRN: Shortness of breath or wheezing docusate/senna (50/8.6) mg Tab 2 Tab, PO, qHS, P RN: Constipation fentaNYL 50 mcg/mL 2 mL Inj: 25 mcg, IV Push, once, PRN: Pain Moderate to Severe (4-10) hydrALAZINE 20 mg/mL 1mL Inj: 5 mg, IV Push, q4h r, PRN: Other (see Comments) HYDROcod/acetamin (5/325) mg T 1 - 2 Tab, PO, q4hr, PRN: Pain Moderate to Severe (4-10) magnesium oxide 400 mg Tab: 400 mg, PO, Per Para meter, PRN: Hypomagnesemia magnesium sulf /SW: 2 gm, 50 mL, 25 mL/hr, IV, Per Parameter, PRN: Hypomagnesemia magnesium sulf /SW: 4 gm, 10 0 mL, 25 mL/hr, IV, Per Parameter, PRN: Hypomagnesemia morphine 2 mg/mL 1mL Inj: 2 mg, IV Push, q4hr, P RN: Pain Scale (See Comments) nalOXone 0.4 mg/mL 1mL Inj: 0.2 mg, IV Push, q2min, PRN: Respiratory depression ondansetron 2 mg/mL Inj 2mL: 4 mg, IV Push, q4hr, PRN: Nausea / Vomiting 1st Choice oxyCODONE 5 mg Tab Immediate R 5 mg, PO, q6hr, P RN: Pain potassium bicarbonate 20 mEq E 20 mEq, PO, Per P arameter, PRN: Hypokalemia potassium bicarbonate 20 mEq E 40 mEq, PO, Per P arameter, PRN: Hypokalemia potassium Cl / SW Premix: 10 mEq, 100 mL, 100 mL/hr, IV, Per Parameter, PRN: Hypokalemia prochlorperazine 5 mg/mL 2 m L 5 mg, IV Push, q4hr, PRN: Nausea / Vomiting 2nd Choice sodium chloride: 10 mL, IV Push, Per Parameter, PRN: Other (see Comments) temazepam 7.5 mg Cap: 7.5 mg, PO, qHS, PRN: Inso mnia IV Medications heparin sodium + D5W for Premi 8.77 mL/hr, IV, S top: 01/05/20 8:11:00 MST NaCl 0.9%: 20 mL/hr, IV, Stop: 12/30/19 11:07:00 MST ., VS/Measurements 24 hr vital signs (All documented values resulted over the prior 24 hours) Low High Last 36.6 37.1 36.8 (12/08 04:00) (12/07 19:47) (12/08 08:49) Temperature PO Temperature PO Temperature PO HR 76 86 77 (12/07 19:47) (12/07 16:00) (12/08 08:49) RR 16 18 18 (12/08 04:00) (12/08 08:49) (12/08 08:49) NIBP 120/73 154/86 154/86 (12/07 19:47) (12/08 08:49) (12/08 08:49) NIBP Mean 91 93 93 (12/08 00:00) (12/08 04:00) (12/08 04:00) Weight (kg) Admit 72.56 (11/27 10:35) Current 71.80 (12/07 04:00) Previous 71.60 (12/06 03:00) Gain/Loss 0.20 Ventilation Low High Last SaO2 92 95 93 (12/08 04:00) (12/08 00:00) (12/08 08:49) == , Last Documented Vital Signs Temperature PO: 36.8 deg C Heart Rate: 77 bpm Monitored Cardiac Rhythm: Normal sinus rhythm Resp Rate (Monitor): 18 Breaths/Min Mean Arterial Pressure: 93 mm Hg NIBP Systolic: 154 mm Hg High NIBP Diastolic: 86 mm Hg Oxygen Method: Room air SPO2: 93 % Objective General: No acute distress. Neck: No jugular venous distention. Respiratory: Lungs are clear to auscultation. Cardiovascular: Regular rhythm. Gastrointestinal: Soft. Review / Management Results Review: 24 hr Labs Labs (All documented values resulted over the p rior 24 hours..) Hematology WBC 9.80 Hgb 9.50L Hct 28.50L Plt 270.00 , Microbiology Studies Recently Resulted [id number] CSF Culture Status: Final 11/29/2019 Lumbar Culture Report: No growth [id number] Gram Stain Status: Gram Stain 11/29/2019 Cerebrospinal Fluid Gram Stain: White Blood Cells seen No organisms seen. Culture Report: . hospital monitor: SR. Electronically Signed By: Jonathan Gore MD PHD On 12/09/19 10:08 Co Signature By: Modify Signature By: History and Physical Patient: JOSEPH VALDIVIA MA 12/09/2019 [facility] Age: 79 years Sex: F : 1940 Active Ins urance: MEDICARE [phone] [facility] Admitting MD: Dennys Yoo DO Location: [facility] B3A: B331: 01 PCP: Carol Ruff MD Author: Lorena Lay Subjective pt is resting comfortably i n bed this morning. She A&O to person and time. She is aware she will be going for stress test today. She remains on hep gtt. Denies nausea or pain. Review of Systems Constitutional: No fevers, chills, sweats Eye: repots change in vision Respiratory: No shortness of breath, cough Cardiovascular: No Chest pain, palpitations, Gastrointestinal: No nausea, vomiting, diarrhea Genitourinary: No hematuria Objective Vitals and Measurements T: 36.6 C (Oral) TMIN: 36.6 C (Oral) TMAX: 37.1 C (Oral) HR: 81 RR: 16 BP: 122/79 SpO2: 92% Oxygen Method: Room air Physical Exam GEN: No acute distress, alert and oriented x 2 HEENT: oropharynx clear, mucous membranes moist NECK: supple, no jugular venous distention CV: regular rate and rhythm, on tele NSR PULM: clear to auscultation bilaterally, normal respiratory excursion ABD: soft, nontender,mild distention, LLQ palpa ble mass EXTR: 1+ pitting edema BLE NEURO: moves all extremities Lab Results Common Labs - This Encounter, Most Recent, Last 24 hours Last 24 Hours Hematology-CBC 12/09/19 Coagulation 12/09/19 WBC: 9.8 Heparin Anti-Xa, UFH: 0.33 RBC:3.03 (L) Hgb:9.5 (L) Hct:28.5 (L) MCV: 94.2 MCH: 31.3 MCHC: 33.2 RDW: 14.3 Plt: 270 Additional No qualifying data available. Antibiotics Inactive acyclovir: 720 mg, IV, q8hr 11/27/19 17:25 - 08:57 ( 8 days ) acyclovir: 370 mg, IV, q12hr 12/04/19 08:57 - 0 12/05/19 15:26 ( 2 days ) Assessment/Plan Ms Valdivia is a pleasant [age] year old female who presented to the ED for abdominal pain and weakness and was found to have a pelvic mass, 14.[address] and US imaging. She will be going down for nuclear stress test today. Pathology from CT jarad ded biopsy pending 1. Pelvic mass: - Pelvic US: Complex, diffu se cystic components; multiple irregular internal soft tissue densities. 14.5 x 9.1 x 14.8 cm. +vascular flow. +free fluid. Origin R ovary from CT. - No lymphadenopathy noted on CT C/A/P during admission although there is mild ascites, primarily in the pelvis. Potential (but very unlikely) metastasis with 1.5 cm nodular density in the left lower l sreedhar and within the spleen an d kidneys with notable hypodensities (but also read as potentially infarcts). - CA125 496 on 12/03/19 - We reviewed that the mass is most likely ovarian in etiology. We reviewed there is no definitive way to exclude malignancy without surgical removal. However, given her moderate cardiac risk and the c ardiology evaluation, we rec ommend proceeding forward with an CT-guided biopsy and drainage of cystic contents with cytology. All questions were answered to her satisfaction. Pathology pending from CT guided biopsy 2. Anemia - Chronic VS malignancy related - Continue to trend labs - Transfuse if less than 7. 3. Recent NSTEMI - Cardiology following. Appreciative of recomme ndations. 4. 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 - Neurology following. Appreciative of recommen dations. 5. Recent h/o DVT - IVC filter in place - Eliquis transitioned to lovenox on 12/03/19 pen ding procedures. -- Per Cardiology recommend ations - patient will ttransition to warfarin due to multiple breakthrough strokes PLAN --Pending pathology of CT-g uided biopsy and drainage of cystic contents with cytology on 12/07/19. --Treatment will be guided based on results Will discuss case with Dr. Helen Black, [facility] Gynecologic Oncologist. Electronically Signed By: Lorena Lay On 12/09/19 08:18 Co Signature By: Modify Signature By: Patient seen and examined. Agree with above ass essment and plan. 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 Neuro follo wing. 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 No associated hemor rhage.' S/p lumbar puncture 11/29. CSF fluid negative. ID following. VZV was negative, HSV negative. Acyclovir stopped. -Gastroenteritis. supportive care. -elevated trop. plan for stress test today per cardiology. -Hx of DVT. s/p IVC filter. No evidence of DVT on US. Cardiology following. No plan for inpatient cardiac cath due to risk for stroke. 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 CT scan revealing large ovarian mass. Reviewed with cytogenetic technician onc. Pelvic US showing 'Complex primarily cystic mass pelvis. Neoplasm must be excluded'. Posting Clerk o nc considering surgical debu lking. Her CEA level was elevated at 496. Eliquis held, on heparin gtt. She is s/p percutaneous biopsy on 12/06, pending pathology report. May consider switching anticoagulatio n to warfarin due to breakth rough strokes on Eliquis. Patient will go for stress test today to determine anticoagulation course. - PT/OT recommends home with home health PT. DVT Prophy: SCDs, on heparin Code status: Full code Dispo: At least 1-2 more days inpatient Subjective No new complaints. Denies f /c, cp, sob, n/v, d/c. Nurse reports no events overnight. Review of Systems A 12 point review of system s was completed and the positives and pertinent negatives were included in the history of present illness/subjective. The remainder of review of systems was negative. Objective Vitals and Measurements T: 36.6 C (Oral) TMIN: 36.6 C (Oral) TMAX: 37.1 C (Oral) HR: 81 RR: 16 BP: 122/79 SpO2: 92% Oxygen Method: Room air Physical Exam GEN: No acute distress, well nourished. pleasan t. HEENT: Oropharynx clear, mucous membranes moist , PERRL NECK: Supple, no jugular venous distention, tra wellington midline. CV: Regular rate and rhythm. no murmurs, rubs, or gallops. PULM: Clear to auscultation bilaterally. No whe ezes or crackles. ABD: Soft, nontender, nondistended, normoactive bowel sounds. EXT: No clubbing, cyanosis, or edema. Pedal pul ses present. NEURO: Non-focal, moves all extremities. Alert and oriented x 4. Lab Results Common Labs - This Encounter, Most Recent, Last 24 hours Last 24 Hours Hematology-CBC 12/09/19 Coagulation 12/09/19 WBC: 9.8 Heparin Anti-Xa, UFH: 0.33 RBC:3.03 (L) Hgb:9.5 (L) Hct:28.5 (L) MCV: 94.2 MCH: 31.3 MCHC: 33.2 RDW: 14.3 Plt: 270 Additional No qualifying data available. Antibiotics Inactive acyclovir: 720 mg, IV, q8hr 11/27/19 17:25 - 08:57 ( 8 days ) acyclovir: 370 mg, IV, q12hr 12/04/19 08:57 - 0 12/05/19 15:26 ( 2 days ) This document was transcrib ed by scribbart Ramirez for Provider: Dr. Yoo on 12/09/19. ISaad, have revi ewed and agree with all documentation in this transcribed note. 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 Neuro follo wing. 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 No associated hemor rhage.' Patient is s/p lumba r puncture 11/29. CSF fluid negative. ID following. VZV was negative, HSV negative. Acyclovir stopped. cardiology recommend Warfarin due to failed eliquis. -Gastroenteritis. supportive care. -elevated trop. plan for stress test today per cardiology. -Hx of DVT. s/p IVC filter. No evidence of DVT on US. Cardiology following. No plan for inpatient cardiac cath due to risk for stroke. 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 CT scan revealing large ovarian mass. Reviewed with cytogenetic technician onc. Pelvic US showing 'Complex primarily cystic mass pelvis. Neoplasm must be excluded'. Posting Clerk o nc considering surgical debu lking. Her CEA level was elevated at 496. Eliquis held, on heparin gtt. Cardiology recommends proceeding with conservative percutaneous biopsy for evaluation as the patient i s moderate risk for surgical intervention. She is s/p percutaneous biopsy on 12/06, pending pathology report. Per cardiology, restart heparin gtt post procedure. May consider switching anticoagulation to warfarin due to breakthrough strokes on Eliquis. Stress test today 12/07. - PT/OT Eval DVT Prophy: SCDs, on heparin Code status: Full code Dispo: At least 1-2 more days inpatient Subjective No new complaints. Denies f /c, cp, sob, n/v, d/c. Nurse reports no events overnight. Review of Systems A 12 point review of system s was completed and the positives and pertinent negatives were included in the history of present illness/subjective. The remainder of review of systems was negative. Objective Vitals and Measurements T: 37.1 C (Axillary) TMIN: 36.6 C (Oral) TMAX: 37.1 C (Axillary) HR: 77 RR: 18 BP: 139/79 SpO2: 92% Oxygen Amount: 2 Oxygen Method: Room air WT: 71.8 kg Physical Exam GEN: No acute distress, well nourished. pleasan t. HEENT: Oropharynx clear, mucous membranes moist , PERRL NECK: Supple, no jugular venous distention, tra wellington midline. CV: Regular rate and rhythm. no murmurs, rubs, or gallops. PULM: Clear to auscultation bilaterally. No whe ezes or crackles. ABD: Soft, nontender, nondistended, normoactive bowel sounds. EXT: No clubbing, cyanosis, or edema. Pedal pul ses present. NEURO: Non-focal, moves all extremities. Alert and oriented x 4. Lab Results Common Labs - This Encounter, Most Recent, Last 24 hours Last 24 Hours Hematology-CBC 12/08/19 Coagulation 12/08/19 WBC: 10.5 Heparin Anti-Xa, UFH: 0.37 RBC:3.00 (L) Hgb:9.4 (L) Hct:28.2 (L) MCV: 93.8 MCH: 31.3 MCHC: 33.4 RDW: 14.1 Plt: 265 Additional No qualifying data available. Diagnostic Results Radiology - Full Interpretation, Last 24 hrs Name: JOSEPH VALDIVIA Account: [id number] : 1940 Result Date: 12/05/19 17:33 Verified By: Rolando Ortiz MD at 12/07/19 14 :20 Report : CT Drainage Visceral/Organ EXAM: CT Drainage Visceral/Organ CLINICAL HISTORY: ovarian m ass. History of multiple CVAs. Appearance concerning for malignancy with possible metastatic disease. Patient is a poor operative candidate. Request biopsy PROCEDURE: CT guided right ovarian cystic mass biopsy INTERVENTIONAL RADIOLOGIST: Rolando Ortiz MD COMPLICATIONS: No immediate or apparent ESTIMATED BLOOD LOSS: None MEDICATIONS: 1 mg intraveno us Versed, 25 mcg intravenous fentanyl . 4 mL local 1% lidocaine DLP: 818.32 mGy*cm CTDI: 15.6 mGy START TIME/END TIME: 30 minutes TECHNIQUE: Following discus gurpreet of risks, benefits, and alternatives, the patient provide written informed consent. Dose reduction techniques i ncluding iterative reconstruction, Automated exposure control, adjustment of mA and/or kV according to patient size, and dose modulation utilizing ALARA (As low as reasonably achievable) exposure principles. 1 mg IV Versed and 25 mcg I V Fentanyl were used for moderate sedation monitored under my direct supervision and the interventional radiology nurse who had no other clinical responsibilities. Total intr aservice time of sedation wa s approximately 30 minutes. The patient's vital signs were monitored throughout the procedure and recorded in the patient's medical record by the nurse. CT localized the lesion. A 17 gauge guide needle was advanced under CT guidance to the margin of the lesion. 4 x 18 gauge core biopsy specimens were obtained and provided to the pathologist. The biopsy was considered completed wh en the pathologist indicated a satisfactory specimen. As the guide needle was withdrawn, manual hemostasis was obtained. Repeat CT of the abdomen was performed to evaluate for any complication. The patient tolerated the p rocedure well. There were no immediate or apparent complications. Following a period of observation, the patient was discharged from the department in good condition FINDINGS: CT images confirm satisfact ory needle placement at the margin of the lesion. No periprocedural hematoma following guiding needle removal IMPRESSION: Uncomplicated CT-guided right ovarian cystic ma ss biopsy. Final pathology results pending at the time of this dictation 12/07/19 14:16 +++++++++++++++++++++++++++++++++++++++++++++++ ++++++++ This document was transcrib ed by yayo Landrum for Provider: Dr. Yoo on 12/08/2019. Saad Boucher, have revi ewed and agree with all documentation in this transcribed note. 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 Neuro follo wing. 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 No associated hemor rhage.' Patient is s/p lumba r puncture 11/29. CSF fluid negative for meningitis. ID following. VZV was negative, HSV negative. Acyclovir stopped.. R eye blurry vision improving. -Gastroenteritis. supportive care. -Hx of DVT. s/p IVC filter. No evidence of DVT on US. Cardiology following. No plan for inpatient cardiac cath due to risk for stroke. 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 CT scan revealing large ovarian mass. Reviewed with cytogenetic technician onc. Pelvic US showing 'Complex primarily cystic mass pelvis. Neoplasm must be excluded'. Posting Clerk o nc considering surgical debu lking. Her CEA level was elevated at 496. Eliquis held, on heparin gtt. Cardiology recommends proceeding with conservative percutaneous biopsy for evaluation as the patient i s moderate risk for surgical intervention. Percutaneous biopsy today 12/06. Will switch back to Eliquis after procedure. Stress test tomorrow 12/07. - PT/OT Eval DVT Prophy: SCDs, on heparin Code status: Full code Dispo: At least 1-2 more days inpatient Subjective No new complaints. Denies f /c, cp, sob, n/v, d/c. Nurse reports no events overnight. Review of Systems A 12 point review of system s was completed and the positives and pertinent negatives were included in the history of present illness/subjective. The remainder of review of systems was negative. Objective Vitals and Measurements T: 36.8 C (Oral) TMIN: 36.7 C (Oral) TMAX: 37.3 C (Oral) HR: 80 RR: 18 BP: 144/81 SpO2: 97% Oxygen Method: Room air WT: 71.6 kg Physical Exam GEN: No acute distress, well nourished. pleasan t. HEENT: Oropharynx clear, mucous membranes moist , PERRL NECK: Supple, no jugular venous distention, tra wellington midline. CV: Regular rate and rhythm. no murmurs, rubs, or gallops. PULM: Clear to auscultation bilaterally. No whe ezes or crackles. ABD: Soft, nontender, nondistended, normoactive bowel sounds. EXT: No clubbing, cyanosis, or edema. Pedal pul ses present. NEURO: Non-focal, moves all extremities. Alert and oriented x 4. Lab Results Common Labs - This Encounter, Most Recent, Last 24 hours Last 24 Hours Hematology-CBC 12/07/19 Coag 12/07/19 Coagulation 12/07/19 WBC:12.1 (H) INR: 1.17 Heparin Anti-Xa, UFH: 0.42 RBC:3.09 (L) PT:13.3 (H) Hgb:9.2 (L) PTT:53.4 (H) Hct:28.0 (L) MCV: 90.6 MCH: 29.9 MCHC: 33.0 RDW: 14.2 Plt: 307 Neuts:81.8 (H) Lymphs:7.7 (L) Monos.: 9.3 Eos.: 0.7 Baso.: 0.5 ABS Neut:9.9 (H) ABS Lymph: 0.9 ABS [place]: 1.1 ABS Eos: 0.1 ABS Baso: 0.1 CBC Scan: Auto Diff General Chemistry 12/07/19 Sodium: 136 Potassium: 4.0 Chloride: 101 CO2: 29 Anion Gap: 10 Glucose Level:102 (H) BUN:9 (L) Creatinine: 0.81 eGFR Non- Am: >60 eGFR Afr/Amer: >60 Calcium: 8.4 Additional No qualifying data available. This document was transcrib ed by yayo Landrum for Provider: Dr. Yoo on 12/07/2019. Saad Boucher, have revi ewed and agree with all documentation in this transcribed note. Electronically Signed By: Saad Yoo DO On 12/07/19 17:52 Co Signature By: Modify Signature By: Nathalie Landrum On 12/07/19 10:19 History and Physical 12/07/2019 [facility] Patient: JOSEPH VALDIVIA ( EV) [facility] Age: 79 years Sex: F : 1940 Associated Diagnoses: None Author: Shiva Echeverria MD Basic Information Date of Service: 12/07/2019 09:08. Admission Information: Admit Days = 10, Patient Type = Inpatient . Impression and Plan Diagnosis SUBJECTIVE: F/u +Trop: denies CP, SOB, ambulating with walke r ROS: no abd pain, hematochezia, vomiting, hemat uria OBJECTIVE: NAD CTAB RRR no m/r/g SOFT NT/ND No c/c/e Tele: SR IMPRESSION: 1. +Troponin, WMA in the inferior wall. No angin a. 2. Innumerable multifocal CV As, being on Eliquis, suspect 2/2 hypercoagulable state from abd mass 3. Recent 2 admissions for m ultifocal CVA, on Eliquis, known PFO; AMBER unremarkable 4. LLE DVT s/p IVC filter while at [facility] 5. Right adnexal mass (ovarian cancer). PLAN: 1. asa/statin/coreg 2. Ovarian mass biposy today. 3. Lexiscan nuclear stress test tomorrow 4. resume heparin drip after biopsy > would consider switching OAC to warfarin due to breakthrough strokes on Eliquis . Health Status Intake and Output 24 hour I&O data 24hr I&O Intake Output Balance Yesterday: 295.92 0.00 295.92 Today: 0.00 0.00 0.00 Allergies: Allergic Reactions (All) NKA Current medications: Antibiotic Info Inactive acyclovir: 720 mg, IV, q8hr 11/27/19 17:25 - 08:57 ( 8 days ) acyclovir: 370 mg, IV, q12hr 12/04/19 08:57 - 0 12/05/19 15:26 ( 2 days ) , Scheduled amLODIPine 2.5 mg Tab: 2.5 mg, PO, qDay aspirin 81 mg Chew Tab: 81 mg, PO, Daily atorvastatin 40 mg Tab: 40 mg, PO, qDay ca carb/vit D 500mg rosebud/200 I 1 Tab, PO, BID carvedilol 3.125 mg Tab: 6.25 mg, PO, BID citalopram 10 mg tab: 10 mg, PO, Daily cyanocobalamin 100 mcg Tab: 50 mcg, PO, qDay famotidine 20 mg Tab: 20 mg, PO, Daily sodium chloride: 10 mL, IV Push, q12hr PRN Meds acetaminophen 325 mg Tab: 650 mg, PO, q4hr, PRN: Pain Mild (1-3) acetaminophen 500 mg Tab: 500 mg, PO, q6hr, PRN: Pain/Temperature albuterol (0.083%) 2.5 mg/3 mL 2.5 mg, 3 mL, NEB - inhalation, q4hr, PRN: Shortness of breath or wheezing docusate/senna (50/8.6) mg Tab 2 Tab, PO, qHS, P RN: Constipation hydrALAZINE 20 mg/mL 1mL Inj: 5 mg, IV Push, q4h r, PRN: Other (see Comments) magnesium oxide 400 mg Tab: 400 mg, PO, Per Para meter, PRN: Hypomagnesemia magnesium sulf /SW: 2 gm, 50 mL, 25 mL/hr, IV, Per Parameter, PRN: Hypomagnesemia magnesium sulf /SW: 4 gm, 10 0 mL, 25 mL/hr, IV, Per Parameter, PRN: Hypomagnesemia morphine 2 mg/mL 1mL Inj: 2 mg, IV Push, q4hr, P RN: Pain Scale (See Comments) nalOXone 0.4 mg/mL 1mL Inj: 0.2 mg, IV Push, q2min, PRN: Respiratory depression ondansetron 2 mg/mL Inj 2mL: 4 mg, IV Push, q4hr, PRN: Nausea / Vomiting 1st Choice oxyCODONE 5 mg Tab Immediate R 5 mg, PO, q6hr, P RN: Pain potassium bicarbonate 20 mEq E 20 mEq, PO, Per P arameter, PRN: Hypokalemia potassium bicarbonate 20 mEq E 40 mEq, PO, Per P arameter, PRN: Hypokalemia potassium Cl / SW Premix: 10 mEq, 100 mL, 100 mL/hr, IV, Per Parameter, PRN: Hypokalemia prochlorperazine 5 mg/mL 2 m L 5 mg, IV Push, q4hr, PRN: Nausea / Vomiting 2nd Choice sodium chloride: 10 mL, IV Push, Per Parameter, PRN: Other (see Comments) temazepam 7.5 mg Cap: 7.5 mg, PO, qHS, PRN: Inso mnia IV Medications heparin sodium + D5W for Premi 8.77 mL/hr, IV, S top: 01/05/20 8:11:00 MST NaCl 0.9%: 20 mL/hr, IV, Stop: 12/30/19 11:07:00 MST ., VS/Measurements 24 hr vital signs (All documented values resulted over the prior 24 hours) Low High Last 36.7 37.3 36.8 (12/05 23:31) (12/06 03:00) (12/06 08:00) Temperature PO Temperature PO Temperature PO HR 73 86 80 (12/05 17:14) (12/05 22:) (12/06 08:00) RR 16 18 18 (12/05 22:31) (12/06 08:00) (12/06 08:00) NIBP 124/81 158/88 144/81 (12/05 22:) (12/05 18:29) (12/06 08:00) NIBP Mean 95 95 95 (12/05 23:31) (12/05 23:31) (12/05 23:31) Weight (kg) Admit 72.56 (11/27 10:35) Current 71.60 (12/06 03:00) Previous 73.50 (12/05 05:12) Gain/Loss -1.90 Ventilation Low High Last SaO2 93 97 97 (12/05 20:00) (12/06 08:00) (12/06 08:00) == , Last Documented Vital Signs Vital Signs (Most Recent ) Temp PO Heart Rate Resp Rate 36.8 80 18 (12/06 08:00) (12/06 08:00) (12/06 08:00) Non Invasive BP NIBP Mean AdmitWeight CurrentWe ight BMI 144 / 81 95 72.56 71.60 26.02 (12/06 08:00) (12/05 23:31) (11/27 10:35) ( 5 03:00) (02/24 21:41) Ventilation SaO2 FiO2 97 21 (12/06 08:00) (11/27 23:20) Review / Management Results Review: 24 hr Labs Labs (All documented values resulted over the p rior 24 hours..) Hematology WBC 12.10H Hgb 9.20L Hct 28.00L Plt 307.00 Chemistry Na 136.00 K 4.00 Cl 101.00 CO2 29.00 Gluc 102.00H Bun 9.00L Cr 0.81 Ca 8.40 Coagulation PT 13.30H INR 1.17 PTT 53.40H Anion Anion Gap 10.00 (12/06 05:22) , Microbiology Studies Recently Resulted [id number] CSF Culture Status: Final 11/29/2019 Lumbar Culture Report: No growth [id number] Gram Stain Status: Gram Stain 11/29/2019 Cerebrospinal Fluid Gram Stain: White Blood Cells seen No organisms seen. Culture Report: . Radiology Results Radiologist's interpretation 24hrs Name: JOSEPH VALDIVIA Account: [id number] : 1940 Result Date: Verified By: at : ++++++++++++++++++++++++++++++++++++++++++++++++ +++++++ hospital monitor Electronically Signed By: Shiva Echeverria MD On 12/07/19 09:10 Co Signature By: Modify Signature By: History and Physical Patient: JOSEPH VALDIVIA MA 12/07/2019 [facility] Age: 79 years Sex: F : 1940 Active Ins urance: MEDICARE [phone] [facility] Admitting MD: Dennys Yoo DO Location: [facility] B3A: B331: 01 PCP: Carol Ruff MD Author: Jessica Mirza MD Subjective History of Present Illness Ms Valdivia is a pleasant [age] year old female who has a history of CVA, DVT s/p IVC filter who was in her normal state of health when she developed increased abdominal pain and weakness. She currently l clint at home with a caregive r and her son, Pepe due to recent CVA, ongoing in nature. She was brought to the ED via EMS where she had a II, III and AVF ST elevation with positive troponin. She underwent abdominal imaging, both CT and US, and was found to have a 14cm x 14cm pelvic mass with associated free fluid. Per patient, who is mildly confused, she had no symptoms of nausea, emesis or abdominal pa in. She does report early sa tiety, but is having daily bowel movements and urination. She also reports a history of hysterectomy, but is unaware if she still had her ovaries. 24h Events: No acute events overnight per pt and her compan ion who is bedside. Ovarian mass CT-guided bx o n 12/07/19 as transitioning from lovenox to heparin yesterday. Cardiology plans for nuclear stress test on 12/07. Review of Systems Constitutional: No fevers, chills, sweats Eye: +loss of vision or change in vision ENMT: No nasal congestion or sore throat Respiratory: No shortness of breath, wheezing, or cough Cardiovascular: No chest pain, palpitations, or syncope Gastrointestinal: No nausea, vomiting, diarrhea , or constipation Genitourinary: No hematuria or genital pruritus Candice/Lymph: No excessive bruising or lymphadeno travon Musculoskeletal: No joint pain or muscular pain Integumentary: No rash, pruritus, or abrasions Psychiatric: No depression or excessive anxiety Objective Vitals and Measurements T: 37.3 C (Oral) TMIN: 36.7 C (Oral) TMAX: 37.3 C (Oral) HR: 80 RR: 18 BP: 136/82 SpO2: 94% Oxygen Method: Room air WT: 71.6 kg Physical Exam GENERAL: Nontoxic, no acute distress, alert and oriented to self and situation. HEENT: Normocephalic, atrau matic, no scleral icterus or conjunctival injection. NECK: supple, no rigidity. LUNGS: Normal respiratory effort. CV: RRR, on tele GI: soft, nontender. Mild distention, palpable mass to LLQ. : no suprapubic or flank tenderness. EXT: 2+ pitting edema to BLE SKIN: warm and dry, no ulcerations. Antibiotics Inactive acyclovir: 720 mg, IV, q8hr 11/27/19 17:25 - 08:57 ( 8 days ) acyclovir: 370 mg, IV, q12hr 12/04/19 08:57 - 0 12/05/19 15:26 ( 2 days ) Assessment/Plan Ms Valdivia is a pleasant [age] year old female who presented to the ED for abdominal pain and weakness and was found to have a pelvic mass, 14.[address] and US imaging. 1. Pelvic mass: - Pelvic US: Complex, diffu se cystic components; multiple irregular internal soft tissue densities. 14.5 x 9.1 x 14.8 cm. +vascular flow. +free fluid. Origin R ovary from CT. - No lymphadenopathy noted on CT C/A/P during admission although there is mild ascites, primarily in the pelvis. Potential (but very unlikely) metastasis with 1.5 cm nodular density in the left lower l sreedhar and within the spleen an d kidneys with notable hypodensities (but also read as potentially infarcts). - [id number] 496 on 12/03/19 - We reviewed that the mass is most likely ovarian in etiology. We reviewed there is no definitive way to exclude malignancy without surgical removal. However, given her moderate cardiac risk and the c ardiology evaluation, we rec ommend proceeding forward with an CT-guided biopsy and drainage of cystic contents with cytology. All questions were answered to her satisfaction. 2. Anemia - Chronic VS malignancy related - Continue to trend labs - Transfuse if less than 7. 3. Recent NSTEMI - Cardiology following. Appreciative of recomme ndations. 4. 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 - Neurology following. Appreciative of recommen dations. 5. Recent h/o DVT - IVC filter in place - Eliquis transitioned to l ovenox on 12/03/19 pending procedures. Cardiology recommendations to transition to warfarin. Plan: CT-guided biopsy and drainage of cystic content s with cytology on 12/07/19. Case discussed with and POC approved by Dr. Helen Black, attending Gynecologic Oncologist. Jessica Mirza MD, PhD INFORMATION SYSTEMS TECHNICIAN PGY3 Pager: [1] MOBILE APPLICATION ENGINEER ONC Progress/SOAP Note; Jessica Mirza MD 12/06/2019 12:38 MST Electronically Signed By: Jessica Mirza MD On 12/07/19 11:56 Co Signature By: Modify Signature By: Jessica Mirza MD On 12/07/19 11:56 History and Physical Patient: JOSEPH VALDIVIA MA 12/06/2019 [facility] Age: 79 years Sex: F : 1940 Active Ins urance: MEDICARE [phone] [facility] Admitting MD: Tito Saunders MD Location: [facility] B3A: B331: 01 PCP: Carol Ruff MD Author: Nathalie Landrum Subjective Patient is a 79 year old fe male with PMHx significant for previous stroke and DVT currently on Eliquis who presented to the ED on 11/27/2019 with complaints of generalized weakness, nausea, vomiting, an d diarrhea. Per EMS, her fie ld EKG showed ST elevations in 2, 3, and aVF. EMS administered Aspirin and Zofran with some relief. Patient follows with Dr. Echeverria as outpatient. She denies chest pain, abdom inal pain, shortness of eboni th. Upon arrival patient was hypertensive 166/97. Labs showed WBC 14.1, PT 16.6, AST 40, Alkphos 258, troponin elevated, influenza negative. CTA abd on 11/27/19 showed 'No aor tic aneurysm or dissection. 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 Additionally, there is moderate narrowing of the SMA at the orig in and proximally without fr ank stenosis. There are striated appearance the bilateral kidneys which may reflect pyelonephritis. However, underlying infarct could also be of consideration especially on t he right side. No focal anna ection identified. Multiple probable infarcts are seen of the spleen which are of indeterminate age but may be chronic. Large cystic ovarian neoplasm noted arising from the r ight.' Cardiology was consul jose a and there was no indication for angiography or aggressive treatment. including cardiac cath as patient is high risk for reat stroke. Venous US on 11/28/2019 was negative f or DVT but there was mild bi lateral PAD seen on the arterial doppler on 11/28/19. Neurology was consulted. Brain MRI on 11/29/2019 showed 'Innumerable acute embolic infarcts most prominent in the right oc cipital lobe and bilateral c erebellum, new compared to 11/05/2019. No associated hemorrhage.' There was concern for possible aseptic meningitis, therefore patient underwent lumbar puncture on 11/29/19 and ID was consulted. CT abd/pel vis on 11/28/19 revealing large ovarian mass. Reviewed with ID. Posting Clerk onc following and is considering surgical debulking, follow-up pelvic US on 12/02/19 showing 'Complex primar pascale cystic mass pelvis. Neop lasm must be excluded'. [id number] measured at 496. Cardiology recommends percutaneous biopsy of the mass prior to surgical intervention due to her cardiac risk. VZV and HSV negative, we have stopped acyclovir. Patient seen and examined, case discussed with RN and son on the phone Patient had headache overnight, denies headache today.head ct was negative Will go for percutaneous bi opsy mass tomorrow 12/06 on heparin gtt previously on lovenox BID, but needed to hold for 24 hours prior to bx felt she was high risk and swithed to IV heparin Objective Vitals and Measurements T: 36.9 C (Oral) TMIN: 36.6 C (Oral) TMAX: 36.9 C (Oral) HR: 77 RR: 18 BP: 130/79 SpO2: 96% Oxygen Method: Room air WT: 73.5 kg Physical Exam GENERAL: Nontoxic HEENT: Normocephalic NECK: supple, no rigidity. LUNGS: No crackles or wheezes. CV: RRR, normal S1/S2, GI: soft, normoactive bowel sounds : no suprapubic or flank tenderness. BACK: no spinal or paraspinal tenderness EXT: no edema SKIN: warm and dry, no ulcerations. NEURO: Cranial nerves 2-12 grossly intact. Lab Results Common Labs - This Encounter, Most Recent, Last 24 hours Last 24 Hours Hematology-CBC 12/06/19 General Chemistry 12/06/19 WBC: 10.2 Sodium: 137 RBC:3.01 (L) Potassium: 3.7 Hgb:9.2 (L) Chloride: 102 Hct:27.5 (L) CO2: 29 MCV: 91.2 Anion Gap: 10 MCH: 30.6 Glucose Level: 89 MCHC: 33.6 BUN: 10 RDW: 13.9 Creatinine: 0.82 Plt: 274 eGFR Non- Am: >60 Neuts: 75.6 eGFR Afr/Amer: >60 Lymphs: 12.6 Calcium: 8.6 Monos.: 10.0 Eos.: 1.2 Baso.: 0.6 ABS Neut: 7.7 ABS Lymph: 1.3 ABS [place]: 1.0 ABS Eos: 0.1 ABS Baso: 0.1 CBC Scan: Auto Diff Additional No qualifying data available. Antibiotics Inactive acyclovir: 720 mg, IV, q8hr 11/27/19 17:25 - 08:57 ( 8 days ) acyclovir: 370 mg, IV, q12hr 12/04/19 08:57 - 0 12/05/19 15:26 ( 2 days ) Medications - This Encounter, All Results, Last 6 months Scheduled amLODIPine 2.5 mg Tab: 2.5 mg, PO, qDay aspirin 81 mg Chew Tab: 81 mg, PO, Daily atorvastatin 40 mg Tab: 40 mg, PO, qDay ca carb/vit D 500mg rosebud/200 I 1 Tab, PO, BID carvedilol 3.125 mg Tab: 6.25 mg, PO, BID citalopram 10 mg tab: 10 mg, PO, Daily cyanocobalamin 100 mcg Tab: 50 mcg, PO, qDay famotidine 20 mg Tab: 20 mg, PO, Daily sodium chloride: 10 mL, IV Push, q12hr PRN acetaminophen 325 mg Tab: 650 mg, PO, q4hr, PRN : Pain Mild (1-3) acetaminophen 500 mg Tab: 500 mg, PO, q6hr, PRN : Pain/Temperature albuterol (0.083%) 2.5 mg/3 mL 2.5 mg, 3 mL, NEB - inhalation, q4hr, PRN: Shortness of breath or wheezing docusate/senna (50/8.6) mg Tab 2 Tab, PO, qHS, PRN: Constipation hydrALAZINE 20 mg/mL 1mL Inj: 5 mg, IV Push, q4 hr, PRN: Other (see Comments) magnesium oxide 400 mg Tab: 400 mg, PO, Per Par ameter, PRN: Hypomagnesemia magnesium sulf /SW: 2 gm, 5 0 mL, 25 mL/hr, IV, Per Parameter, PRN: Hypomagnesemia magnesium sulf /SW: 4 gm, 1 00 mL, 25 mL/hr, IV, Per Parameter, PRN: Hypomagnesemia morphine 2 mg/mL 1mL Inj: 2 mg, IV Push , q4hr, PRN: Pain Scale (See Comments) nalOXone 0.4 mg/mL 1mL Inj: 0.2 mg, IV Push, q2min, PRN: Respiratory depression ondansetron 2 mg/mL Inj 2mL : 4 mg, IV Push, q4hr, PRN: Nausea / Vomiting 1st Choice oxyCODONE 5 mg Tab Immediate R 5 mg, PO, q6hr, PRN: Pain potassium bicarbonate 20 mEq E 20 mEq, PO, Per Parameter, PRN: Hypokalemia potassium bicarbonate 20 mEq E 40 mEq, PO, Per Parameter, PRN: Hypokalemia potassium Cl / SW Premix: 1 0 mEq, 100 mL, 100 mL/hr, IV, Per Parameter, PRN: Hypokalemia prochlorperazine 5 mg/mL 2 mL 5 mg, IV Push, q4hr, PRN: Nausea / Vomiting 2nd Choice sodium chloride: 10 mL, IV Push, Per Parameter, PRN: Other (see Comments) temazepam 7.5 mg Cap: 7.5 mg, PO, qHS, PRN: Ins omnia IV heparin sodium + D5W for Premi 8.77 mL/hr, IV, Stop: 01/05/20 8:11:00 [facility] NaCl 0.9%: 20 mL/hr, IV, Stop: 12/30/19 11:07:0 0 [facility] Diagnostic Results (12/05/2019 17:[address] [facility] [address] Head wo Con) IMPRESSION: 1. No acute intracranial ab normality. No CT evidence of intracranial hemorrhage. No CT evidence of acute intracranial injury. 2. Generalized cerebral vol ume loss and chronic microvascular ischemic changes as above. [1] Assessment/Plan -Recurrent CVA -R eye blurry vision. -Gastroenteritis -Hx of DVT -Large ovarian mass with elevated CEA 125 Plan - Neuro following. Brain MR I showing 'Innumerable acute embolic infarcts most prominent in the right occipital lobe and bilateral cerebellum, new compared to 11/05/2019. No associated hemorrhage.' Patien t is s/p lumbar puncture 11/05 6. CSF fluid pending. R eye blurry vision improving. - CT scan revealing large o varian mass. Reviewed with cytogenetic technician onc. Pelvic US showing 'Complex primarily cystic mass pelvis. Neoplasm must be excluded'. Posting Clerk onc considering surgical debulking. Her CEA level was elevated at 496. Eliqui s held, patient given full dose Lovenox. Switched to heparin gtt. - Cardiology recommends pro ceeding with conservative percutaneous biopsy for evaluation as the patient is moderate risk for surgical intervention, I also concur that biopsy would be favorable at this t cy. Will stop heparin drip tomorrow morning 12/06 and patient will go for percutaneous biopsy. - No evidence of DVT on US. Cardiology following. No plan for inpatient cardiac cath due to risk for stroke. - Concern for possible asep tic meningitis. ID following. VZV was negative, HSV negative. Stop acyclovir. - Discussed with patients s on over the phone. He would like to be updated daily by the hospitalist physician daily - Son has 24 hour care at home My partner will be assuming care beginning saurabh . This document was transcrib ed by yayo Landrum for Provider: Dr. Saunders on 12/06/2019. I, Tito Saunders, have revie wed and agree with all documentation in this transcribed note. [1] CT Head wo Con; Otoniel Martin MD 12/05/19 20 17:08 [facility] Electronically Signed By: Tito Saunders MD On 12/06/19 15:18 Co Signature By: Modify Signature By: Nathalie Landrum On 12/06/19 12:44 History and Physical Patient: JOSEPH VALDIVIA MA 12/06/2019 [facility] Age: 79 years Sex: F : 1940 Active Ins urance: MEDICARE [phone] [facility] Admitting MD: Tito Saunders MD Location: [facility] B3A: B331: 01 PCP: Carol Ruff MD Author: Jessica Mirza MD Subjective History of Present Illness Ms Valdivia is a pleasant 8 8 year old female who has a history of CVA, DVT s/p IVC filter who was in her normal state of health when she developed increased abdominal pain and weakness. She currently l clint at home with a caregive r and her son, Pepe due to recent CVA, ongoing in nature. She was brought to the ED via EMS where she had a II, III and AVF ST elevation with positive troponin. She underwent abdominal imaging, both CT and US, and was found to have a 14cm x 14cm pelvic mass with associated free fluid. Per patient, who is mildly confused, she had no symptoms of nausea, emesis or abdominal pa in. She does report early sa tiety, but is having daily bowel movements and urination. She also reports a history of hysterectomy, but is unaware if she still had her ovaries. 24h Events: No acute events overnight per pt and her compan ion who is bedside. Ovarian mass CT-guided bx o n 12/07/19 as transitioning from lovenox to heparin today. Cardiology plans for another procedure on 0. Review of Systems Constitutional: No fevers, chills, sweats Eye: +loss of vision or change in vision ENMT: No nasal congestion or sore throat Respiratory: No shortness of breath, wheezing, or cough Cardiovascular: No chest pain, palpitations, or syncope Gastrointestinal: No nausea, vomiting, diarrhea , or constipation Genitourinary: No hematuria or genital pruritus Candice/Lymph: No excessive bruising or lymphadeno travon Musculoskeletal: No joint pain or muscular pain Integumentary: No rash, pruritus, or abrasions Psychiatric: No depression or excessive anxiety Objective Vitals and Measurements T: 36.9 C (Oral) TMIN: 36.6 C (Oral) TMAX: 36.9 C (Oral) HR: 77 RR: 18 BP: 130/79 SpO2: 96% Oxygen Method: Room air WT: 73.5 kg Physical Exam GENERAL: Nontoxic, no acute distress, alert and oriented to self and situation. HEENT: Normocephalic, atrau matic, no scleral icterus or conjunctival injection. NECK: supple, no rigidity. LUNGS: Normal respiratory effort. CV: RRR, on tele GI: soft, nontender. Mild distention, palpable mass to LLQ. : no suprapubic or flank tenderness. EXT: 2+ pitting edema to BLE SKIN: warm and dry, no ulcerations. Lab Results Common Labs - This Encounter, Most Recent, Last 24 hours Last 24 Hours Hematology-CBC 12/06/19 General Chemistry 12/06/19 WBC: 10.2 Sodium: 137 RBC:3.01 (L) Potassium: 3.7 Hgb:9.2 (L) Chloride: 102 Hct:27.5 (L) CO2: 29 MCV: 91.2 Anion Gap: 10 MCH: 30.6 Glucose Level: 89 MCHC: 33.6 BUN: 10 RDW: 13.9 Creatinine: 0.82 Plt: 274 eGFR Non- Am: >60 Neuts: 75.6 eGFR Afr/Amer: >60 Lymphs: 12.6 Calcium: 8.6 Monos.: 10.0 Eos.: 1.2 Baso.: 0.6 ABS Neut: 7.7 ABS Lymph: 1.3 ABS [place]: 1.0 ABS Eos: 0.1 ABS Baso: 0.1 CBC Scan: Auto Diff Additional No qualifying data available. Antibiotics Inactive acyclovir: 720 mg, IV, q8hr 11/27/19 17:25 - 08:57 ( 8 days ) acyclovir: 370 mg, IV, q12hr 12/04/19 08:57 - 0 12/05/19 15:26 ( 2 days ) Diagnostic Results Radiology - Full Interpretation, Last 24 hrs Name: JOSEPH VALDIVIA Account: [id number] : 1940 Result Date: 12/05/19 17:08 Verified By: Otoniel Martin MD at 12/05/19 17 :43 Report : CT Head wo Con EXAM: CT head without IV contrast CLINICAL HISTORY: Severe headache and previous strokes. COMPARISON: MRI brain 11/29/2019 TECHNIQUE: Serial axial CT scan of the head are obtained without intravenous contrast. Coronal reconstructed images were submitted. The protocol utilizes one or more the following dose reduction techni ques: Automated exposure con trol, adjustment of the mA and/or kV according to patient size, and/or use of iterative reconstruction technique. FINDINGS: Normal connelly-white matter differentiation. No abnormal shift of the midline structures. Basal cisterns are patent. Mild to moderate periventricular white matter hypodensities are seen most sug gestive of chronic microvascular ischemic change s. Mild to moderate generalize d cerebral volume loss, central and peripheral. No hydrocephalus is seen. No focal mass, mass effect, hemorrhage, infarct or abnormal extra-axial fluid collections are noted right frontal sinus marked o pacification again seen.. Included rest of the paranasal sinuses and mastoids appear clear. Calvarium intact. IMPRESSION: 1. No acute intracranial ab normality. No CT evidence of intracranial hemorrhage. No CT evidence of acute intracranial injury. 2. Generalized cerebral vol ume loss and chronic microvascular ischemic changes as above. 12/05/19 17:39 +++++++++++++++++++++++++++++++++++++++++++++++ ++++++++ Assessment/Plan Ms Valdivia is a pleasant [age] year old female who presented to the ED for abdominal pain and weakness and was found to have a pelvic mass, 14.[address] and US imaging. 1. Pelvic mass: - Pelvic US: Complex, diffu se cystic components; multiple irregular internal soft tissue densities. 14.5 x 9.1 x 14.8 cm. +vascular flow. +free fluid. Origin R ovary from CT. - No lymphadenopathy noted on CT C/A/P during admission although there is mild ascites, primarily in the pelvis. Potential (but very unlikely) metastasis with 1.5 cm nodular density in the left lower l sreedhar and within the spleen an d kidneys with notable hypodensities (but also read as potentially infarcts). - [id number] on 12/03/19 - We reviewed that the mass is most likely ovarian in etiology. We reviewed there is no definitive way to exclude malignancy without surgical removal. However, given her moderate cardiac risk and the c ardiology evaluation, we rec ommend proceeding forward with an CT-guided biopsy and drainage of cystic contents with cytology. All questions were answered to her satisfaction. 2. Anemia - Chronic VS malignancy related - Continue to trend labs - Transfuse if less than 7. 3. Recent NSTEMI - Cardiology following. Appreciative of recomme ndations. 4. 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 - Neurology following 5. Recent h/o DVT - IVC filter in place - Eliquis transitioned to lovenox on 12/03/19 Plan: CT-guided biopsy and drainage of cystic content s with cytology on 12/07/19. Case discussed with and POC approved by Dr. Helen Black, attending Gynecologic Oncologist. Jessica Mirza MD, PhD INFORMATION SYSTEMS TECHNICIAN PGY3 Pager: [[phone]] MOBILE APPLICATION ENGINEER ONC Progress/SOAP Note; Jessica Mirza MD 12/05/2019 08:12 MST Electronically Signed By: Jessica Mirza MD On 12/06/19 14:36 Co Signature By: Modify Signature By: Jessica Mirza MD On 12/06/19 14:36 History and Physical 12/06/2019 [place] Melanie alvarez Patient: JOSEPH VALDIVIA ( EV) [facility] Age: 79 years Sex: F : 1940 Associated Diagnoses: None Author: Kristie Carlisle MD Basic Information Date of Service: 12/06/2019 11:11. Admission Information: Admit Days = 9, Patient T ype = Inpatient . Impression and Plan Diagnosis SUBJECTIVE: F/u +Trop: denies CP, SOB Overall feeling improved ROS: no abd pain, hematochezia, vomiting, hemat uria OBJECTIVE: NAD CTAB RRR no m/r/g SOFT NT/ND No c/c/e Tele: SR IMPRESSION: 1. +Troponin, WMA in the inferior wall. No angin a. 2. Innumerable multifocal CV As, unclear why she is having recurrence despite being on Eliquis 3. Recent 2 admissions for m ultifocal CVA, on Eliquis, known PFO; AMBER unremarkable 4. LLE DVT s/p IVC filter while at [facility] 5. Right adnexal mass ( ovarian cancer). PLAN: 1. asa/statin/coreg 2. Ovarian mass biposy tomorrow. 3. Lexiscan nuclear stress test on Wednesday. 4. High risk for ovarian surgery consider needle biopsy for diagnosis. 5. D/W grand daughter at bedside . Health Status Intake and Output 24 hour I&O data 24hr I&O Intake Output Balance Yesterday: 20.00 350.00 -330.00 Today: 10.00 0.00 10.00 Allergies: Allergic Reactions (All) NKA Current medications: Antibiotic Info Inactive acyclovir: 720 mg, IV, q8hr 11/27/19 17:25 - 03 /02/20 08:57 ( 8 days ) acyclovir: 370 mg, IV, q12hr 12/04/19 08:57 - 0 12/05/19 15:26 ( 2 days ) , Scheduled amLODIPine 2.5 mg Tab: 2.5 mg, PO, qDay aspirin 81 mg Chew Tab: 81 mg, PO, Daily atorvastatin 40 mg Tab: 40 mg, PO, qDay ca carb/vit D 500mg rosebud/200 I 1 Tab, PO, BID carvedilol 3.125 mg Tab: 6.25 mg, PO, BID citalopram 10 mg tab: 10 mg, PO, Daily cyanocobalamin 100 mcg Tab: 50 mcg, PO, qDay famotidine 20 mg Tab: 20 mg, PO, Daily sodium chloride: 10 mL, IV Push, q12hr PRN Meds acetaminophen 325 mg Tab: 650 mg, PO, q4hr, PRN: Pain Mild (1-3) acetaminophen 500 mg Tab: 500 mg, PO, q6hr, PRN: Pain/Temperature albuterol (0.083%) 2.5 mg/3 mL 2.5 mg, 3 mL, NEB - inhalation, q4hr, PRN: Shortness of breath or wheezing docusate/senna (50/8.6) mg Tab 2 Tab, PO, qHS, P RN: Constipation hydrALAZINE 20 mg/mL 1mL Inj: 5 mg, IV Push, q4h r, PRN: Other (see Comments) magnesium oxide 400 mg Tab: 400 mg, PO, Per Para meter, PRN: Hypomagnesemia magnesium sulf /SW: 2 gm, 50 mL, 25 mL/hr, IV, Per Parameter, PRN: Hypomagnesemia magnesium sulf /SW: 4 gm, 10 0 mL, 25 mL/hr, IV, Per Parameter, PRN: Hypomagnesemia morphine 2 mg/mL 1mL Inj: 2 mg, IV Push, q4hr, P RN: Pain Scale (See Comments) nalOXone 0.4 mg/mL 1mL Inj: 0.2 mg, IV Push, q2min, PRN: Respiratory depression ondansetron 2 mg/mL Inj 2mL: 4 mg, IV Push, q4hr, PRN: Nausea / Vomiting 1st Choice oxyCODONE 5 mg Tab Immediate R 5 mg, PO, q6hr, P RN: Pain potassium bicarbonate 20 mEq E 20 mEq, PO, Per P arameter, PRN: Hypokalemia potassium bicarbonate 20 mEq E 40 mEq, PO, Per P arameter, PRN: Hypokalemia potassium Cl / SW Premix: 10 mEq, 100 mL, 100 mL/hr, IV, Per Parameter, PRN: Hypokalemia prochlorperazine 5 mg/mL 2 m L 5 mg, IV Push, q4hr, PRN: Nausea / Vomiting 2nd Choice sodium chloride: 10 mL, IV Push, Per Parameter, PRN: Other (see Comments) temazepam 7.5 mg Cap: 7.5 mg, PO, qHS, PRN: Inso mnia IV Medications heparin sodium + D5W for Premi 8.77 mL/hr, IV, S top: 01/05/20 8:11:00 MST NaCl 0.9%: 20 mL/hr, IV, Stop: 12/30/19 11:07:00 MST ., VS/Measurements 24 hr vital signs (All documented values resulted over the prior 24 hours) Low High Last 36.6 36.9 36.9 (12/04 15:02) (12/05 09:00) (12/05 09:00) Temperature PO Temperature PO Temperature PO HR 71 85 82 (12/04 12:08) (12/05 04:00) (12/05 09:00) RR 18 20 18 (12/05 09:00) (12/05 00:00) (12/05 09:00) NIBP 132/81 150/77 143/82 (12/04 12:08) (12/05 04:00) (12/05 09:00) NIBP Mean 97 101 101 (12/05 00:00) (12/05 04:00) (12/05 04:00) Weight (kg) Admit 72.56 (11/27 10:35) Current 73.50 (12/05 05:12) Previous 74.00 (12/03 07:30) Gain/Loss -0.50 Ventilation Low High Last SaO2 93 95 95 (12/05 00:00) (12/05 09:00) (12/05 09:00) == , Last Documented Vital Signs Vital Signs (Most Recent ) Temp PO Heart Rate Resp Rate 36.9 82 18 (12/05 09:00) (12/05 09:00) (12/05 09:00) Non Invasive BP NIBP Mean AdmitWeight CurrentWe ight BMI 143 / 82 101 72.56 73.50 26.02 (12/05 09:00) (12/05 04:00) (11/27 10:35) ( 4 05:12) (11/27 21:41) Ventilation SaO2 FiO2 95 21 (12/05 09:00) (11/27 23:20) Review / Management Results Review: 24 hr Labs Labs (All documented values resulted over the p rior 24 hours..) Hematology WBC 10.20 Hgb 9.20L Hct 27.50L Plt 274.00 Chemistry Na 137.00 K 3.70 Cl 102.00 CO2 29.00 Gluc 89.00 Bun 10.00 Cr 0.82 Ca 8.60 Anion Anion Gap 10.00 (12/05 04:19) , Microbiology Studies Recently Resulted [id number] CSF Culture Status: Final 11/29/2019 Lumbar Culture Report: No growth [id number] Gram Stain Status: Gram Stain 11/29/2019 Cerebrospinal Fluid Gram Stain: White Blood Cells seen No organisms seen. Culture Report: . Radiology Results Radiologist's interpretation 24hrs Name: JOSEPH VALDIVIA Account: [id number] : 1940 Result Date: 12/05/19 17:08 Verified By: Otoniel Martin MD at 12/05/19 17: 43 Report : CT Head wo Con IMPRESSION:1. No acute intra cranial abnormality. No CT evidence of intracranial hemorrhage. No CT evidence of acute intracranial injury.2. Generalized cerebral volume loss and chronic microvascular ischemic changes as above. 12/05/19 17:39 ++++++++++++++++++++++++++++++++++++++++++++++++ +++++++ hospital monitor Electronically Signed By: Kristie Carlisle MD On 12/06/19 11:12 Co Signature By: Modify Signature By: History and Physical Patient: JOSEPH VALDIVIA MA 12/05/2019 [facility] Age: 79 years Sex: F : 1940 Active Ins urance: MEDICARE [phone] [facility] Admitting MD: Tito Saunders MD Location: [facility] B3A: B331: 01 PCP: Carol Ruff MD Author: Jasper Roche MD Subjective Seen today with no new complaints Waiting for decision by front window cashier regarding the next treatment plan All medications have been reviewed Objective Vitals and Measurements T: 36.6 C (Oral) TMIN: 36.6 C (Oral) TMAX: 37.1 C (Oral) HR: 77 RR: 18 BP: 135/83 SpO2: 95% Oxygen Method: Room air Physical Exam GEN: No acute distress, alert and oriented x 3 HEENT: No facial asymmetry, pale but no jaundice, oropharynx clear, mucous membranes moist NECK: supple, no jugular venous distention CV: S1 and S2 with no S3 or S4, regular rate an d rhythm, no rubs or gallops PULM: clear to auscultation bilaterally, normal respiratory excursion ABD: Palpable suprapubic ma ss extending to the umbilicus with smooth surface, no tenderness but discomfort, normoactive bowel sounds, no guarding or rebound. EXTR: no cyanosis, clubbing or edema, stable bilateral lower extremity hyperpigmented patches. NEURO: Non-focal, moves all extremities Lab Results BMP - All Encounters, Most Recent, Last 7 days Basic Metabolic Panel (BMP) Anion Gap: 12 BUN: 9 mg/dL Low Calcium: 8.6 mg/dL Chloride: 104 mmol/L CO2: 27 mmol/L Creatinine: 1.01 mg/dL Glucose Level: 91 mg/dL Potassium: 4 mmol/L Sodium: 139 mmol/L CBC - All Encounters, Most Recent, Last 7 days CBC WBC: 9.7 thousand/uL RBC: 3.04 million/uL Low Hgb: 9.2 gm/dL Low Hct: 28.5 % Low MCV: 93.9 fL MCH: 30.4 pg MCHC: 32.4 gm/dL Plt: 279 thousand/uL RDW: 13.9 % Antibiotics Inactive acyclovir: 720 mg, IV, q8hr 11/27/19 17:25 - 08:57 ( 8 days ) acyclovir: 370 mg, IV, q12hr 12/04/19 08:57 - 0 12/05/19 15:26 ( 2 days ) Assessment/Plan > Abdominal CSF analysis wi differentials of possible reactive abnormality from the multiple CVAs. > Incomplete emptying of the bladder and no uri nary retention > Recurrent acute embolic i nfarcts most prominent in the right occipital lobe and bilateral cerebellum, No associated hemorrhage. > Large ovarian cyst of abo ut 12 cm in diameter: Concerning for ovarian malignant neoplasm > Lower extremity deep vein thrombosis > Acute renal failure: Prog ressively increasing creatinine which could be multifactorial including medication possible urinary retention > Ingrown right foot second toenail > Normocytic anemia > Low abdominal distention due to ovarian cyst > Discontinue acyclovir since the PCR for herpe s is negative > Social Insurance Administrator recommended IR for biopsy > I have discussed this evangelina e with patient, her caregiver at the bedside, as well as nurse Electronically Signed By: Jasper Rcohe MD On 12/05/19 15:42 Co Signature By: Modify Signature By: History and Physical 12/05/2019 [place] alvarez Patient: JOSEPH VALDIVIA ( EV) [facility] Age: 79 years Sex: F : 1940 Associated Diagnoses: None Author: Kristie Carlisle MD Basic Information Date of Service: 12/05/2019 14:53. Admission Information: Admit Days = 9, Patient T ype = Inpatient . Impression and Plan Diagnosis SUBJECTIVE: F/u +Trop: denies CP, SOB Overall feeling improved ROS: no abd pain, hematochezia, vomiting, hemat uria OBJECTIVE: NAD CTAB RRR no m/r/g SOFT NT/ND No c/c/e Tele: SR IMPRESSION: 1. +Troponin, WMA in the inferior wall. No angin a. 2. Innumerable multifocal CV As, unclear why she is having recurrence despite being on Eliquis 3. Recent 2 admissions for m ultifocal CVA, on Eliquis, known PFO; AMBER unremarkable 4. LLE DVT s/p IVC filter while at [facility] 5. Right adnexal mass ( ovarian cancer). PLAN: 1. asa/statin/coreg 2. Continue lovenoc Q12 hours. 3. no plan for inpt cath > will do oupt stress a nd address from there 4. High risk for ovarian surgery consider needle biopsy for diagnosis. 5. D/W sister at bedside and son Pepe over the p lamar. . Health Status Intake and Output 24 hour I&O data 24hr I&O Intake Output Balance Yesterday: 170.00 800.00 -630.00 Today: 10.00 350.00 -340.00 Allergies: Allergic Reactions (All) NKA Current medications: Antibiotic Info Ordered acyclovir: 370 mg, IV, q12hr 12/04/19 08:57 - A ctive ( 2 days ) Inactive acyclovir: 720 mg, IV, q8hr 11/27/19 17:25 - 08:57 ( 8 days ) , Scheduled acyclovir + NaCl 0.9%: 370 mg, 7.4 mL, 100 mL/hr , IV, q12hr amLODIPine 2.5 mg Tab: 2.5 mg, PO, qDay aspirin 81 mg Chew Tab: 81 mg, PO, Daily atorvastatin 40 mg Tab: 40 mg, PO, qDay ca carb/vit D 500mg rosebud/200 I 1 Tab, PO, BID carvedilol 3.125 mg Tab: 6.25 mg, PO, BID citalopram 10 mg tab: 10 mg, PO, Daily cyanocobalamin 100 mcg Tab: 50 mcg, PO, qDay enoxaparin 80 mg/0.8 mL Inj: 70 mg, SUBCUT, q12h r famotidine 20 mg Tab: 20 mg, PO, Daily sodium chloride: 10 mL, IV Push, q12hr PRN Meds acetaminophen 325 mg Tab: 650 mg, PO, q4hr, PRN: Pain Mild (1-3) acetaminophen 500 mg Tab: 500 mg, PO, q6hr, PRN: Pain/Temperature albuterol (0.083%) 2.5 mg/3 mL 2.5 mg, 3 mL, NEB - inhalation, q4hr, PRN: Shortness of breath or wheezing docusate/senna (50/8.6) mg Tab 2 Tab, PO, qHS, P RN: Constipation hydrALAZINE 20 mg/mL 1mL Inj: 5 mg, IV Push, q4h r, PRN: Other (see Comments) magnesium oxide 400 mg Tab: 400 mg, PO, Per Para meter, PRN: Hypomagnesemia magnesium sulf /SW: 2 gm, 50 mL, 25 mL/hr, IV, Per Parameter, PRN: Hypomagnesemia magnesium sulf /SW: 4 gm, 10 0 mL, 25 mL/hr, IV, Per Parameter, PRN: Hypomagnesemia morphine 2 mg/mL 1mL Inj: 2 mg, IV Push, q4hr, P RN: Pain Scale (See Comments) nalOXone 0.4 mg/mL 1mL Inj: 0.2 mg, IV Push, q2min, PRN: Respiratory depression ondansetron 2 mg/mL Inj 2mL: 4 mg, IV Push, q4hr, PRN: Nausea / Vomiting 1st Choice oxyCODONE 5 mg Tab Immediate R 5 mg, PO, q6hr, P RN: Pain potassium bicarbonate 20 mEq E 20 mEq, PO, Per P arameter, PRN: Hypokalemia potassium bicarbonate 20 mEq E 40 mEq, PO, Per P arameter, PRN: Hypokalemia potassium Cl / SW Premix: 10 mEq, 100 mL, 100 mL/hr, IV, Per Parameter, PRN: Hypokalemia prochlorperazine 5 mg/mL 2 m L 5 mg, IV Push, q4hr, PRN: Nausea / Vomiting 2nd Choice sodium chloride: 10 mL, IV Push, Per Parameter, PRN: Other (see Comments) temazepam 7.5 mg Cap: 7.5 mg, PO, qHS, PRN: Inso mnia IV Medications NaCl 0.9%: 20 mL/hr, IV, Stop: 12/30/19 11:07:00 MST ., VS/Measurements 24 hr vital signs (All documented values resulted over the prior 24 hours) Low High Last 36.6 37.1 36.6 (12/04 12:08) (12/04 04:00) (12/04 12:08) Temperature PO Temperature PO Temperature PO HR 71 87 71 (12/04 12:08) (12/03 16:00) (12/05 11:08) RR 18 20 18 (12/04 12:08) (12/03 16:00) (12/05 11:08) NIBP 125/74 148/82 132/81 (12/04 04:00) (12/04 08:27) (12/05 11:) NIBP Mean 91 101 91 (12/04 04:00) (12/04 00:00) (12/04 04:00) Weight (kg) Admit 72.56 (11/27 10:35) Current 74.00 (12/03 07:30) Previous 73.50 (12/02 02:30) Gain/Loss 0.50 Ventilation Low High Last SaO2 93 96 93 (12/05 11:08) (12/03 16:00) (12/05 11:) == , Last Documented Vital Signs Vital Signs (Most Recent ) Temp PO Heart Rate Resp Rate 36.6 71 18 (12/04 12:08) (12/04 12:08) (12/05 11:08) Non Invasive BP NIBP Mean AdmitWeight CurrentWe ight BMI 132 / 81 91 72.56 74.00 26.02 (12/04 12:08) (12/04 04:00) (11/27 10:35) ( 2 07:30) (11/27 21:41) Ventilation SaO2 FiO2 93 21 (12/04 12:08) (11/27 23:20) Review / Management Results Review: 24 hr Labs Labs (All documented values resulted over the p rior 24 hours..) Hematology WBC 9.70 Hgb 9.20L Hct 28.50L Plt 279.00 Chemistry Na 139.00 K 4.00 Cl 104.00 CO2 27.00 Gluc 91.00 Bun 9.00L Cr 1.01 Ca 8.60 Anion Anion Gap 12.00 (03/03 02:50) , Microbiology Studies Recently Resulted [id number] CSF Culture Status: Final 11/29/2019 Lumbar Culture Report: No growth [id number] Gram Stain Status: Gram Stain 11/29/2019 Cerebrospinal Fluid Gram Stain: White Blood Cells seen No organisms seen. Culture Report: . Radiology Results Radiologist's interpretation 24hrs Name: JOSEPH VALDIVIA Account: [id number] : 1940 Result Date: Verified By: at : ++++++++++++++++++++++++++++++++++++++++++++++++ +++++++ hospital monitor Electronically Signed By: Kristie Carlisle MD On 12/05/19 14:58 Co Signature By: Modify Signature By: History and Physical Patient: JOSEPH VALDIVIA MA 12/05/2019 [facility] Age: 79 years Sex: F : 1940 Active Ins urance: MEDICARE [phone] [facility] Center Admitting MD: Tito Saunders MD Location: [facility] B3A: B331: 01 PCP: Carol Ruff MD Author: Zee Ramirez Subjective Patient is a 79 year old fe male with PMHx significant for previous stroke and DVT currently on Eliquis who presented to the ED on 11/27/2019 with complaints of generalized weakness, nausea, vomiting, an d diarrhea. Per EMS, her fie ld EKG showed ST elevations in 2, 3, and aVF. EMS administered Aspirin and Zofran with some relief. Patient follows with Dr. Echeverria as outpatient. She denies chest pain, abdom inal pain, shortness of eboni th. Upon arrival patient was hypertensive 166/97. Labs showed WBC 14.1, PT 16.6, AST 40, Alkphos 258, troponin elevated, influenza negative. CTA abd on 11/27/19 showed 'No aor tic aneurysm or dissection. 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 Additionally, there is moderate narrowing of the SMA at the orig in and proximally without fr ank stenosis. There are striated appearance the bilateral kidneys which may reflect pyelonephritis. However, underlying infarct could also be of consideration especially on t he right side. No focal anna ection identified. Multiple probable infarcts are seen of the spleen which are of indeterminate age but may be chronic. Large cystic ovarian neoplasm noted arising from the r ight.' Cardiology was consul jose a and there was no indication for angiography or aggressive treatment. including cardiac cath as patient is high risk for reat stroke. Venous US on 11/28/2019 was negative f or DVT but there was mild bi lateral PAD seen on the arterial doppler on 11/28/19. Neurology was consulted. Brain MRI on 11/29/2019 showed 'Innumerable acute embolic infarcts most prominent in the right oc cipital lobe and bilateral c erebellum, new compared to 11/05/2019. No associated hemorrhage.' There was concern for possible aseptic meningitis, therefore patient underwent lumbar puncture on 11/29/19 and ID was consulted. CT abd/pel vis on 11/28/19 revealing large ovarian mass. Reviewed with ID. Posting Clerk onc following and is considering surgical debulking, follow-up pelvic US on 12/02/19 showing 'Complex primar pascale cystic mass pelvis. Neop lasm must be excluded'. [id number] measured at 496. Cardiology recommends percutaneous biopsy of the mass prior to surgical intervention due to her cardiac risk. Patient seen and examined, case discussed with RN. No new complaints today. Cardiology placed the patie nt at moderate risk for surgical intervention, recommending percutaneous biopsy. I also concur that biopsy would be favorable at this time. Objective Vitals and Measurements T: 37.1 C (Oral) TMIN: 36.5 C (Oral) TMAX: 37.1 C (Oral) HR: 78 RR: 18 BP: 125/74 SpO2: 93% Oxygen Method: Room air WT: 74 kg Physical Exam GENERAL: Nontoxic HEENT: Normocephalic NECK: supple, no rigidity. LUNGS: No crackles or wheezes. CV: RRR, normal S1/S2, GI: soft, normoactive bowel sounds : no suprapubic or flank tenderness. BACK: no spinal or paraspinal tenderness EXT: no edema SKIN: warm and dry, no ulcerations. NEURO: Cranial nerves 2-12 grossly intact. Lab Results Common Labs - This Encounter, Most Recent, Last 24 hours Last 24 Hours Hematology-CBC 12/05/19 General Chemistry 12/05/19 WBC: 9.7 Sodium: 139 RBC:3.04 (L) Potassium: 4.0 Hgb:9.2 (L) Chloride: 104 Hct:28.5 (L) CO2: 27 MCV: 93.9 Anion Gap: 12 MCH: 30.4 Glucose Level: 91 MCHC: 32.4 BUN:9 (L) RDW: 13.9 Creatinine: 1.01 Plt: 279 eGFR Non- Am: 53 Neuts: 71.1 eGFR Afr/Amer: >60 Lymphs: 16.2 Calcium: 8.6 Monos.: 10.4 Eos.: 1.5 Baso.: 0.8 ABS Neut: 6.9 ABS Lymph: 1.6 ABS [place]: 1.0 ABS Eos: 0.1 ABS Baso: 0.1 CBC Scan: Auto Diff Additional No qualifying data available. Antibiotics Ordered acyclovir: 370 mg, IV, q12hr 12/04/19 08:57 - A ctive ( 2 days ) Inactive acyclovir: 720 mg, IV, q8hr 11/27/19 17:25 - 08:57 ( 8 days ) Medications - This Encounter, All Results, Last 6 months Scheduled acyclovir + NaCl 0.9%: 370 mg, 7.4 mL, 100 mL/h r, IV, q12hr amLODIPine 2.5 mg Tab: 2.5 mg, PO, qDay aspirin 81 mg Chew Tab: 81 mg, PO, Daily atorvastatin 40 mg Tab: 40 mg, PO, qDay ca carb/vit D 500mg rosebud/200 I 1 Tab, PO, BID carvedilol 3.125 mg Tab: 6.25 mg, PO, BID citalopram 10 mg tab: 10 mg, PO, Daily cyanocobalamin 100 mcg Tab: 50 mcg, PO, qDay enoxaparin 80 mg/0.8 mL Inj: 70 mg, SUBCUT, q12 hr famotidine 20 mg Tab: 20 mg, PO, Daily sodium chloride: 10 mL, IV Push, q12hr PRN acetaminophen 325 mg Tab: 650 mg, PO, q4hr, PRN : Pain Mild (1-3) acetaminophen 500 mg Tab: 500 mg, PO, q6hr, PRN : Pain/Temperature albuterol (0.083%) 2.5 mg/3 mL 2.5 mg, 3 mL, NEB - inhalation, q4hr, PRN: Shortness of breath or wheezing docusate/senna (50/8.6) mg Tab 2 Tab, PO, qHS, PRN: Constipation hydrALAZINE 20 mg/mL 1mL Inj: 5 mg, IV Push, q4 hr, PRN: Other (see Comments) magnesium oxide 400 mg Tab: 400 mg, PO, Per Par ameter, PRN: Hypomagnesemia magnesium sulf /SW: 2 gm, 5 0 mL, 25 mL/hr, IV, Per Parameter, PRN: Hypomagnesemia magnesium sulf /SW: 4 gm, 1 00 mL, 25 mL/hr, IV, Per Parameter, PRN: Hypomagnesemia morphine 2 mg/mL 1mL Inj: 2 mg, IV Push , q4hr, PRN: Pain Scale (See Comments) nalOXone 0.4 mg/mL 1mL Inj: 0.2 mg, IV Push, q2min, PRN: Respiratory depression ondansetron 2 mg/mL Inj 2mL : 4 mg, IV Push, q4hr, PRN: Nausea / Vomiting 1st Choice oxyCODONE 5 mg Tab Immediate R 5 mg, PO, q6hr, PRN: Pain potassium bicarbonate 20 mEq E 20 mEq, PO, Per Parameter, PRN: Hypokalemia potassium bicarbonate 20 mEq E 40 mEq, PO, Per Parameter, PRN: Hypokalemia potassium Cl / SW Premix: 1 0 mEq, 100 mL, 100 mL/hr, IV, Per Parameter, PRN: Hypokalemia prochlorperazine 5 mg/mL 2 mL 5 mg, IV Push, q4hr, PRN: Nausea / Vomiting 2nd Choice sodium chloride: 10 mL, IV Push, Per Parameter, PRN: Other (see Comments) temazepam 7.5 mg Cap: 7.5 mg, PO, qHS, PRN: Ins omnia IV NaCl 0.9%: 20 mL/hr, IV, Stop: 12/30/19 11:07:0 0 MST Assessment/Plan -Recurrent CVA -R eye blurry vision. -Gastroenteritis -Hx of DVT -Large ovarian mass with elevated CEA 125 Plan - Neuro following. Brain MR I showing 'Innumerable acute embolic infarcts most prominent in the right occipital lobe and bilateral cerebellum, new compared to 11/05/2019. No associated hemorrhage.' Patien t is s/p lumbar puncture 11/05 6. CSF fluid pending. R eye blurry vision improving. - CT scan revealing large o varian mass. Reviewed with cytogenetic technician onc. Pelvic US showing 'Complex primarily cystic mass pelvis. Neoplasm must be excluded'. Posting Clerk onc considering surgical debulking. Her CEA level was elevated at 496. Continue to hold Eliquis a nd give full dose Lovenox. - Cardiology recommends pro ceeding with conservative percutaneous biopsy for evaluation as the patient is moderate risk for surgical intervention, I also concur that biopsy would be favorable at this time. - No evidence of DVT on US. Cardiology following. No plan for inpatient cardiac cath due to risk for stroke. - Concern for possible asep tic meningitis. ID following. Continue acyclovir for now. Waiting on HSV, VZV was negative - Discussed with patients son over the phone This document was transcrib ed by yayo Ramirez for Provider: Dr. Saunders on 12/05/19. I, Tito Saunders, have revie wed and agree with all documentation in this transcribed note. Electronically Signed By: Tito Saunders MD On 12/05/19 19:13 Co Signature By: Modify Signature By: Zee Ramirez On 12/05/19 07:26 History and Physical Patient: JOSEPH VALDIVIA MA 12/05/2019 [facility] Age: 79 years Sex: F : 1940 Active Ins urance: MEDICARE [phone] [facility] Admitting MD: Tito Saunders MD Location: [facility] B3A: B331: 01 PCP: Carol Ruff MD Author: Jessica Mirza MD Subjective History of Present Illness Ms Valdivia is a pleasant 8 8 year old female who has a history of CVA, DVT s/p IVC filter who was in her normal state of health when she developed increased abdominal pain and weakness. She currently l clint at home with a caregive r and her son, Pepe due to recent CVA, ongoing in nature. She was brought to the ED via EMS where she had a II, III and AVF ST elevation with positive troponin. She underwent abdominal imaging, both CT and US, and was found to have a 14cm x 14cm pelvic mass with associated free fluid. Per patient, who is mildly confused, she had no symptoms of nausea, emesis or abdominal pa in. She does report early sa tiety, but is having daily bowel movements and urination. She also reports a history of hysterectomy, but is unaware if she still had her ovaries. 24h Events: No acute events overnight. Preoperative evaluation [facility] Cardiology recommended consideration of percutaneous sampling as opposed to major surgery given her moderate cardiac risk. Review of Systems Constitutional: No fevers, chills, sweats Eye: +loss of vision or change in vision ENMT: No nasal congestion or sore throat Respiratory: No shortness of breath, wheezing, or cough Cardiovascular: No chest pain, palpitations, or syncope Gastrointestinal: No nausea, vomiting, diarrhea , or constipation Genitourinary: No hematuria or genital pruritus Candice/Lymph: No excessive bruising or lymphadeno travon Musculoskeletal: No joint pain or muscular pain Integumentary: No rash, pruritus, or abrasions Psychiatric: No depression or excessive anxiety Objective Vitals and Measurements T: 37.1 C (Oral) TMIN: 36.5 C (Oral) TMAX: 37.1 C (Oral) HR: 78 RR: 18 BP: 125/74 SpO2: 93% Oxygen Method: Room air Physical Exam GENERAL: Nontoxic, no acute distress, alert and oriented to self and situation. HEENT: Normocephalic, atrau matic, no scleral icterus or conjunctival injection. NECK: supple, no rigidity. LUNGS: Normal respiratory effort. CV: RRR, on tele GI: soft, nontender. Mild distention, palpable mass to LLQ. : no suprapubic or flank tenderness. EXT: 2+ pitting edema to BLE SKIN: warm and dry, no ulcerations. [1] Lab Results Common Labs - This Encounter, Most Recent, Last 24 hours Last 24 Hours Hematology-CBC 12/05/19 General Chemistry 12/05/19 WBC: 9.7 Sodium: 139 RBC:3.04 (L) Potassium: 4.0 Hgb:9.2 (L) Chloride: 104 Hct:28.5 (L) CO2: 27 MCV: 93.9 Anion Gap: 12 MCH: 30.4 Glucose Level: 91 MCHC: 32.4 BUN:9 (L) RDW: 13.9 Creatinine: 1.01 Plt: 279 eGFR Non- Am: 53 Neuts: 71.1 eGFR Afr/Amer: >60 Lymphs: 16.2 Calcium: 8.6 Monos.: 10.4 Eos.: 1.5 Baso.: 0.8 ABS Neut: 6.9 ABS Lymph: 1.6 ABS [place]: 1.0 ABS Eos: 0.1 ABS Baso: 0.1 CBC Scan: Auto Diff Additional No qualifying data available. Antibiotics Ordered acyclovir: 370 mg, IV, q12hr 12/04/19 08:57 - A ctive ( 2 days ) Inactive acyclovir: 720 mg, IV, q8hr 11/27/19 17:25 - 08:57 ( 8 days ) Assessment/Plan Ms Valdivia is a pleasant 8 8 year old female who presented to the ED for abdominal pain and weakness and was found to have a pelvic mass, 14.[address] and US imaging. 1. Pelvic mass: - Pelvic US: Complex, diffu se cystic components; multiple irregular internal soft tissue densities. 14.5 x 9.1 x 14.8 cm. +vascular flow. +free fluid. Origin R ovary from CT. - No lymphadenopathy noted on CT C/A/P during admission although there is mild ascites, primarily in the pelvis. Potential metastasis with 1.5 cm nodular density in the left lower lung and within the s pleen and kidneys with notab le hypodensities (but also read as potentially infarcts). - CA125 496 on 12/03/19 - We reviewed that the mass is most likely ovarian in etiology. We reviewed there is no definitive way to exclude malignancy without surgical removal. However, given her moderate cardiac risk and the c ardiology evaluation, we rec ommend proceeding forward with an US-guided biopsy and drainage of cystic contents with cytology. All questions were answered to her satisfaction. 2. Anemia - Chronic VS malignancy related - Continue to trend labs - Transfuse if less than 7. 3. Recent NSTEMI - Cardiology following. Appreciative of recomme ndations. 4. 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 - Neurology following 5. R/O Meningitis - Continues on acyclovir for potential aseptic meningitis. - Cultures pending. ID following. Appreciative of recommendations. 6. Recent h/o DVT - IVC filter in place - Iris transitioned to lovenox on 12/03/19 Plan: US-guided biopsy and drainage of cystic content s with cytology Case discussed with and POC approved by Dr. Helen Black, attending Gynecologic Oncologist. Jessica Mirza MD, PhD INFORMATION SYSTEMS TECHNICIAN PGY3 Pager: [1] MOBILE APPLICATION ENGINEER ONC Progress/SOAP Note; Jessica Mirza MD 12/04/2019 13:13 MST Electronically Signed By: Jessica Mirza MD On 12/05/19 17:08 Co Signature By: Modify Signature By: Jessica Mirza MD On 12/05/19 17:08 Patient seen and examined. Agree with above assessment and plan. CT guided biopsy. Plan to f/u on path. Dr Helen Black Posting Clerk Onc Attending [facility] [phone] (cell) Electronically Signed By: Helen Black MD On 12/07/19 08:22 Co Signature By: Modify Signature By: Helen Black MD On 12/07/19 08:22 History and Physical Patient: JOSEPH VALDIVIA MA 12/05/2019 [facility] Age: 79 years Sex: F : 1940 Active Insu osman: MEDICARE [phone] [facility] Admitting MD: Tito Saunders MD Location: [facility] B3A: B331: 01 PCP: Carol Ruff MD Author: Shiva Echeverria MD Received notice that pt needs cardiac clearance, notes reviewed. Given recent NSTEMI this adm ission (cath not performed due to recent stroke), pt is at least moderate cardiac risk. Would favor percutaneous biopsy first if possibl e. Electronically Signed By: Shiva Echeverria MD On 12/04/19 17:51 Co Signature By: Modify Signature By: History and Physical Patient: JOSEPH VALDIVIA MA 12/04/2019 [facility] Age: 79 years Sex: F : 1940 Active Ins urance: MEDICARE [phone] [facility] Admitting MD: Tito Saunders MD Location: [facility] B3A: B331: 01 PCP: Carol Ruff MD Author: Jessica Mirza MD Subjective History of Present Illness Ms Valdivia is a pleasant 8 8 year old female who has a history of CVA, DVT s/p IVC filter who was in her normal state of health when she developed increased abdominal pain and weakness. She currently l clint at home with a caregive r and her son, Pepe due to recent CVA, ongoing in nature. She was brought to the ED via EMS where she had a II, III and AVF ST elevation with positive troponin. She underwent abdominal imaging, both CT and US, and was found to have a 14cm x 14cm pelvic mass with associated free fluid. Per patient, who is mildly confused, she had no symptoms of nausea, emesis or abdominal pa in. She does report early sa tiety, but is having daily bowel movements and urination. She also reports a history of hysterectomy, but is unaware if she still had her ovaries. 24h Events: No acute events overnight. Review of Systems Constitutional: No fevers, chills, sweats Eye: +loss of vision or change in vision ENMT: No nasal congestion or sore throat Respiratory: No shortness of breath, wheezing, or cough Cardiovascular: No chest pain, palpitations, or syncope Gastrointestinal: No nausea, vomiting, diarrhea , or constipation Genitourinary: No hematuria or genital pruritus Candice/Lymph: No excessive bruising or lymphadeno travon Musculoskeletal: No joint pain or muscular pain Integumentary: No rash, pruritus, or abrasions Psychiatric: No depression or excessive anxiety Objective Vitals and Measurements T: 36.6 C (Oral) TMIN: 36.3 C (Oral) TMAX: 37.0 C (Oral) HR: 75 RR: 18 BP: 127/75 SpO2: 94% Oxygen Method: Room air WT: 74 kg Physical Exam GENERAL: Nontoxic, no acute distress, alert and oriented to self and situation. HEENT: Normocephalic, atrau matic, no scleral icterus or conjunctival injection. NECK: supple, no rigidity. LUNGS: Normal respiratory effort. CV: RRR, on tele GI: soft, nontender. Mild distention, palpable mass to LLQ. : no suprapubic or flank tenderness. EXT: 2+ pitting edema to BLE SKIN: warm and dry, no ulcerations. Lab Results Common Labs - This Encounter, Most Recent, Last 24 hours Last 24 Hours Hematology-CBC 12/04/19 General Chemistry 12/04/19 WBC: 9.6 Sodium: 140 RBC:3.08 (L) Potassium: 3.7 Hgb:9.5 (L) Chloride: 106 Hct:28.1 (L) CO2: 25 MCV: 91.1 Anion Gap: 13 MCH: 30.9 Glucose Level: 94 MCHC: 33.9 BUN: 10 RDW: 13.8 Creatinine:1.24 (H) Plt: 251 eGFR Non- Am: 42 Neuts: 74.1 eGFR Afr/Amer: 51 Lymphs: 12.8 Calcium:8.2 (L) Monos.: 10.1 Eos.: 2.0 Baso.: 1.0 ABS Neut: 7.1 ABS Lymph: 1.2 ABS [place]: 1.0 ABS Eos: 0.2 ABS Baso: 0.1 CBC Scan: Auto Diff Additional No qualifying data available. Antibiotics Ordered acyclovir: 370 mg, IV, q12hr 12/04/19 08:57 - A ctive ( 1 days ) Inactive acyclovir: 720 mg, IV, q8hr 11/27/19 17:25 - 08:57 ( 8 days ) Diagnostic Results Radiology - Full Interpretation, This Encounter Name: JOSEPH VALDIVIA Account: [id number] : 1940 Result Date: 12/02/19 15:24 Verified By: Grge Turpin MD at 12/03/19 07 :40 Report : US Pelvic Non OB EXAM: US Pelvic Non OB CLINICAL HISTORY: ovarian cyst Pelvic sonogram was performed. Note is a prior CT examination of 11/28/2019 A complex mass is seen in t he pelvis with diffuse cystic components and multiple irregular internal soft tissue densities. This mass measures 14.5 x 9.1 x 14.8 cm. There is evidence of vascular flow within this mass on Doppler exam. There also may be some free fluid in the pelvis . IMPRESSION: Complex primarily cystic ma ss pelvis. Neoplasm must be excluded. 12/03/19 07:38 +++++++++++++++++++++++++++++++++++++++++++++++ ++++++++ Result Date: 11/29/19 14:10 Verified By: Otoniel Martin MD at 11/29/19 15 :21 Report : XR Lumbar Puncture Diagnostic w Guide EXAM: XR Lumbar Puncture Diagnostic w Guide CLINICAL HISTORY: Headache, light sensitive COMPARISONS: None. FINDINGS: Informed consent was obtain ed from the the patient after discussing procedure, risks, benefits and alternatives. Sterile technique, local an esthesia and fluoroscopic guidance was utilized to place a 22 gauge spinal needle posteriorly at the L3-4 level. Approximately 8 ml of clear CSF fluid is obtained. The patient tolerated proce dure without immediate complications. The fluid sample was sent for laboratory analysis as per request of the ordering physician. Fluoroscopy time: 8 seconds. DAP 121.6 IMPRESSION: Technically successful fluo roscopic guided lumbar puncture without immediate postprocedural complications. 11/29/19 15:18 +++++++++++++++++++++++++++++++++++++++++++++++ ++++++++ Result Date: 11/29/19 08:25 Verified By: Barbra Calvert DO at 11/29/19 09:02 Report : MR Orb/Face/Neck wo Con EXAM: MR Brain wo Con, MR Orb/Face/Neck wo Con CLINICAL HISTORY: blindness. Acute embolic stro ke. COMPARISON: MRI brain 11/05/2019, CT head 11/13/19 TECHNIQUE: Multiplanar, mul tisequence imaging of the brain was performed without contrast. In addition, multiplanar noncontrast thin section imaging through the orbits was performed. FINDINGS: Innumerable scattered foci restricted diffusion are present, many are new compared to the prior exam throughout the brain. A few of the foci are residual restriction from the prior embolic infarcts fro m 11/23/2019. The largest are as of new infarct involves the right occipital lobe (although there are some of the left occipital lobe as well) and patchy areas of restriction within bilateral cerebellar h emispheres. In addition, the re is a new infarct within the right caudate head. There is no associated hemorrhage. Scattered areas of T2 prolo ngation are probably due to chronic small vessel ischemic change and partly due to edema from the infarcts. The rest of the signal within the brain parenchyma has a normal ap pearance. The ventricles and sulci are mildly enlarged consistent with volume loss. No evidence of hemorrhage. No abnormal extra-axial fluid collections. Normal-appearing major vascular flow voids. Midline structures are intact. Soft tissues have a normal appearance. Inspissated mucus within the right frontal sinus with mild to moderate mucoperiosteal thickening in the rest the paranasal sinuses. Mastoids are clear. No calvarial lesions are seen. Orbits have a normal symmet jennifer appearance bilaterally. Optic nerves are symmetric. Extraocular muscles have a normal appearance. No evidence of a mass. Normal signal within the globes. IMPRESSION: 1. Innumerable acute emboli c infarcts most prominent in the right occipital lobe and bilateral cerebellum, new compared to 11/05/2019. No associated hemorrhage. 2. Normal MRI orbits. 11/29/19 08:47 +++++++++++++++++++++++++++++++++++++++++++++++ ++++++++ Result Date: 11/29/19 08:25 Verified By: Barbra Calvert DO at 11/29/19 09:02 Report : MR Brain wo Con EXAM: MR Brain wo Con, MR Orb/Face/Neck wo Con CLINICAL HISTORY: blindness. Acute embolic stro ke. COMPARISON: MRI brain 11/05/2019, CT head 11/13/19 TECHNIQUE: Multiplanar, mul tisequence imaging of the brain was performed without contrast. In addition, multiplanar noncontrast thin section imaging through the orbits was performed. FINDINGS: Innumerable scattered foci restricted diffusion are present, many are new compared to the prior exam throughout the brain. A few of the foci are residual restriction from the prior embolic infarcts fro m 11/23/2019. The largest are as of new infarct involves the right occipital lobe (although there are some of the left occipital lobe as well) and patchy areas of restriction within bilateral cerebellar h emispheres. In addition, the re is a new infarct within the right caudate head. There is no associated hemorrhage. Scattered areas of T2 prolo ngation are probably due to chronic small vessel ischemic change and partly due to edema from the infarcts. The rest of the signal within the brain parenchyma has a normal ap pearance. The ventricles and sulci are mildly enlarged consistent with volume loss. No evidence of hemorrhage. No abnormal extra-axial fluid collections. Normal-appearing major vascular flow voids. Midline structures are intact. Soft tissues have a normal appearance. Inspissated mucus within the right frontal sinus with mild to moderate mucoperiosteal thickening in the rest the paranasal sinuses. Mastoids are clear. No calvarial lesions are seen. Orbits have a normal symmet jennifer appearance bilaterally. Optic nerves are symmetric. Extraocular muscles have a normal appearance. No evidence of a mass. Normal signal within the globes. IMPRESSION: 1. Innumerable acute emboli c infarcts most prominent in the right occipital lobe and bilateral cerebellum, new compared to 11/05/2019. No associated hemorrhage. 2. Normal MRI orbits. 11/29/19 08:47 +++++++++++++++++++++++++++++++++++++++++++++++ ++++++++ Result Date: 11/28/19 15:36 Verified By: Javi Rangel DO at 11/28/19 16:1 0 Report : US Vasc Dplx Matteo Low Ext Bilat EXAM: US Vasc Dplx Matteo Low Ext Bilat HISTORY: Bilateral leg swelling. COMPARISON: 11/06/2019. TECHNIQUE: Duplex venous ul trasound examination of both lower extremities was performed using color Doppler imaging. Evaluation of flow dynamics, compressibility and augmentation. FINDINGS: Right lower extremity venou s system real-time imaging performed and static images were reviewed. Images demonstrate no filling defects within the common femoral, femoral, saphenofemoral junction, popli teal, peroneal or posterior tibial venous systems. Spontaneous phasic waveforms were demonstrated. Vessels were also compressed. Left lower extremity venous system real-time imaging performed and static images were reviewed. Images demonstrate no filling defects within the common femoral, femoral, saphenofemoral junction, poplit eal, peroneal or posterior t ibial venous systems. Spontaneous phasic waveforms were demonstrated. Vessels were also compressed. IMPRESSION: No evidence of deep venous thrombosis within the bilateral lower extremities. 11/28/19 16:07 +++++++++++++++++++++++++++++++++++++++++++++++ ++++++++ Result Date: 11/28/19 15:35 Verified By: Javi Rangel DO at 11/28/19 16:2 2 Report : US Vasc Dplx Art Low Ext Bilat EXAM: US Vasc Dplx Art Low Ext Bilat HISTORY: Bilateral leg/calf pain. COMPARISON: None. TECHNIQUE: Sonographic asse ssment of the arterial system right and left lower extremity performed using connelly scale, duplex and color Doppler imaging. FINDINGS: Mild scattered bilateral arterial atherotic nilo cifications noted. RIGHT LEG: Common femoral artery = 82 cm/sec, triphasic wa veform Origin profunda femoris artery = 17 cm/sec, mon ophasic Proximal femoral artery = 54 cm/sec, triphasic Mid femoral artery = 62 cm/sec, triphasic Distal femoral artery = 70 cm/sec, triphasic Popliteal artery = 60 cm/sec, triphasic Posterior tibial artery = 25 cm/sec, monophasic Dorsalis pedis artery = 38 cm/sec, monophasic LEFT LEG: Common femoral artery = 73 cm/sec, triphasic wa veform Origin profunda femoris artery = 29 cm/sec, tri phasic Proximal femoral artery = 87 cm/sec, triphasic Mid femoral artery = 80 cm/sec, triphasic Distal femoral artery = 57 cm/sec, triphasic Popliteal artery = 66 cm/sec, monophasic Posterior tibial artery = 15 cm/sec, monophasic Dorsalis pedis artery = 18 cm/sec, monophasic IMPRESSION: Arterial findings compatibl e with bilateral mild peripheral arterial disease. No evidence of high-grade stenosis or occlusion. 11/28/19 16:18 +++++++++++++++++++++++++++++++++++++++++++++++ ++++++++ Result Date: 11/28/19 13:56 Verified By: Otoniel Martin MD at 11/28/19 15 :53 Report : CT Abdomen+Pelvis w IV Con EXAM: CT Abdomen+Pelvis w IV Con CLINICAL HISTORY: All quadrant abdominal pain w ith nausea and vomiting. COMPARISON: CT abdomen pelvis 11/27/2019 TECHNIQUE: CT of the abdome n and pelvis with IV contrast. 100 ml Isovue 370 IV was administered. Transaxial images were obtained from the lung bases through the pubic symphysis with reformatted images in the coronal and sagittal plane. All CT scans at this hospital employ automatic and/or manual dose reduction techniques to keep radiation dose as low as reasonably achievable. 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 This appears overall stable in size. There is mild ascites seen within the peritoneal cavity more pronounced at the pelvis. No free intraperitoneal air. Infrarenal IVC filter again seen in place. The appears of the kidneys is overall stable with several triangular and striated areas of hypoattenuation similar to the prior exam. Again differential considerations includes bilateral changes of roxie lonephritis versus sequela o f bilateral renal infarcts. No perinephric mass- producing collections are seen. The rest of the kidneys appear otherwise unremarkable with normal enhancement. No hydronephrosis in bilaterally. No abdominal aortic aneurys m. Atherosclerosis again seen. The SMA appears patent. The liver appears unremarka ble and stable. Portal vein appears patent. Spleen again demonstrates several peripheral hypodensities consistent with areas of hypoattenuation. Again this could represent fo nilo splenic infarcts, howeve r underlying infiltrative lesions cannot be excluded. The stomach is decompressed limiting its evaluation. Pancreas appears grossly unremarkable. Adrenal glands appear grossly unremarkable. Gallbladder appears unremarkable. No hydronephrosis in bilaterall y. The bladder is partially decompressed limiting its evaluation. Bladder wall thickening is seen which could be artifactual or suggestive of cystitis or other mucosal abnormality. No jorge alberto lymphadenopa thy appreciated. Adrenal glands appear unremarka ble. The appendix appears within normal limits. No CT evidence of appendicitis. Portions of the left splenic flexure and the left descending colon demonstrates areas of underlying mucosal thickening which c ould be suggestive of nonspe cific colitis. Similar findings are seen also within the sigmoid colon as well as the rectosigmoid. No focal osseous aggressive lesions. Small bowel loops appear unremarkable with no inflammatory nor obstructive changes. N o abdominal aortic aneurysm. IMPRESSION: 1. Redemonstration of large ovarian complex cystic lesion which appears overall stable in size measuring up to 12 x 11 cm. This is indeterminate and a malignancy cannot be excluded. 2. Changes of nonspecific c olitis are seen about the left colon and sigmoid colon down to the rectosigmoid. Mild ascites. 3. Stable abnormal appearan ce of the kidneys without evidence of hydronephrosis. Differential considerations again include the sequela of pyelonephritis versus bilateral renal infarcts. 4. Appendix appears within normal limits. No CT evidence of appendicitis. 5.Other findings as detailed above. 11/28/19 15 :36 +++++++++++++++++++++++++++++++++++++++++++++++ ++++++++ Result Date: 11/27/19 19:46 Verified By: Nelson Hurt MD at 11/27/19 20:10 Report : CT Angio Abdomen+Pelvis w Con Exam: CTA Abdomen and pelvis with IV contrast. INDICATION: abdominal pain right lower quadrant left lower quadrant abdominal pain distention claudication to the lower extremities. COMPARISON: No TECHNIQUE: Axial images acq uired from of the abdomen and pelvis following 100ml [id number] cc Isovue 370 intravenous contrast with sagittal and coronal reconstruction imaging. 3-D multirotational MIP recon struction imaging performed of the aortic vasculature, generated at a separate workstation by technologist. All CT scans at this hospital employ automatic and/or manual dose reduction techniques to keep radiation dose as low as reasonably achievable. FINDINGS: The abdominal aor ta is normal in caliber and contour with moderate atherosclerotic calcifications. No underlying dissection is demonstrated. The aortic bifurcation is normal in caliber withou t underlying stenosis. 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 The celiac artery branch vessels appear grossly patent. The SMA demonstrates coarse calcifications withou t significant stenosis. The SMA branch vessels appear grossly patent throughout. The KAROLINA appears to be moderately narrowed at its origin but otherwise appears grossly unremarkable. The bilateral renal a rteries appear to be grossly patent with mild to mild atherosclerotic calcifications. Mild peribronchial thickeni ng noted within the bilateral lower lobes which could be chronic in nature with diffuse interlobular septal thickening as well as underlying emphysematous changes. The liver appears grossly u nremarkable. As a part from slightly nodular appearance. Gallbladder is unremarkable as well. There is a focal low- attenuation lesion at the lower pole of the spleen which de monstrates wedge-shaped appe arance with preservation of the capsule which may represent prior infarct. Additional areas of decreased attenuation seen at the upper pole likely related to additional areas of infarcts probable scarri ng related to the inferior pole of the spleen. Mild thickening of bilateral adrenal glands. There is decreased attenuation the right kidney with moderate surrounding fat stra nding. Striated appearance t he bilateral kidneys with more wedge-shaped appearance of decreased attenuation the right kidney which may be related to pyelonephritis without jorge alberto focal collection. Especi ally on the left. However, u nderlying infarct could also be of consideration no hydronephrosis is demonstrated. No structural caval left renal vein noted. The IVC filter is seen with low the renal veins in place. There are bladder appears to be mildly thickened anteriorly. Trace free fluid within the pelvis. Mild colonic diverticulosis is noted without evidence for diverticulitis. Mild thickening of t he transverse colon as well as the right colon is noted. The appendix is unremarkable. 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 The uterus is surgically absent. There is a dense lesion seen within a small bowel loop within the midabdomen at the midline which appears to be somewhat stable on delayed imaging seen in the loop further beyond and may be related to enteric material. Rather than hemorrhage. The visualized osseous stru ctures demonstrate mild diffuse osteopenia. There is slight heterogeneity of the bones. Which could be due to osteopenia. However, infiltrating process cannot be entirely excluded. IMPRESSION: No aortic aneurysm or disse ction. 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 Additionally, there is moderate narrowing of the SMA at t he origin and proximally without jorge alberto stenosis. There are striated appearan ce the bilateral kidneys which may reflect pyelonephritis. However, underlying infarct could also be of consideration especially on the right side. No focal collection identi fied. 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 11/27/19 19:54 +++++++++++++++++++++++++++++++++++++++++++++++ ++++++++ Result Date: 11/27/19 13:34 Verified By: Osbaldo Everett DO at 11/28/19 09:11 Report : XR Foot 3+ Views Rt EXAM: XR Foot 3+ Views Rt CLINICAL HISTORY: toe pain TECHNIQUE: 3 views of the right foot COMPARISON: None FINDINGS: No acute fracture or sublux ation. Congruent forefoot and midfoot junction is noted. Cystic change at the base o f the second metatarsal. Degenerative changes throughout the right foot are noted. Prominent plantar calcaneal spur. No significant soft tissue swelling is seen. IMPRESSION: Degenerative changes. No acute fracture or subl uxation. 11/28/19 09:10 +++++++++++++++++++++++++++++++++++++++++++++++ ++++++++ Result Date: 11/27/19 11:21 Verified By: Osbaldo Everett DO at 11/27/19 14:45 Report : XR Chest 1 View Portable EXAM: XR Chest 1 View Portable INDICATION: Atypical Chest Pain TECHNIQUE: Single projection of the chest. COMPARISON: CT 11/04/2019 FINDINGS: The heart size is normal. The hilar shadows are normal Lungs show no consolidation or effusion 1.8 cm nodular density in the left lower lung i s noted Hemidiaphragms are unremark able. Costophrenic angles are sharp. Osseous structures show no acute abnormalities. IMPRESSION: Nodular density in the left lower lung measuring 1.5 cm. Findings are present on prior CT from 11/04/2019. Continued follow-up is recommended. Over read 11/27/19 14:42 +++++++++++++++++++++++++++++++++++++++++++++++ ++++++++ Assessment/Plan Ms Valdivia is a pleasant [age] year old female who presented to the ED for abdominal pain and weakness and was found to have a pelvic mass, 14.[address] and US imaging. 1. Pelvic mass: - Pelvic US: Complex, diffu se cystic components; multiple irregular internal soft tissue densities. 14.5 x 9.1 x 14.8 cm. +vascular flow. +free fluid. Origin R ovary from CT. - No lymphadenopathy noted on CT C/A/P during admission although there is mild ascites, primarily in the pelvis. Potential metastasis with 1.5 cm nodular density in the left lower lung and within the s pleen and kidneys with notab le hypodensities (but also read as potentially infarcts). - CA125 496 on 12/03/19 - We reviewed that the mass is most likely ovarian in etiology. We reviewed there is no definitive way to exclude malignancy without surgical removal. Given the patient's symptoms and the inab ility to exclude malignancy, I believe surgical removal is warranted. We discussed removal of the pelvic mass via a midline vertical incision and probable salpingo-oophorectomy with utilization of intra operative frozen section. If frozen section were to suggest malignancy, I would recommend proceeding with a ovarian cancer staging procedure to include a bilateral salpingo-oophorectomy, pelvic and aort ic lymph node biopsies, and omentectomy. If the frozen section is negative for malignancy, we did discuss removing the patient's contralateral ovary to decrease her risk of future malignancy, i n addition to removal of the pelvic mass. The patient is amenable to this plan. We reviewed the risks benefits alternatives and indications of surgery including but not limited to bleeding, infection, d amage to nearby organs, need for further procedures, prolonged hospitalization, and reoperation. All questions were answered to her and her family's satisfaction. - Absolutely need evaluatio n and clearance for surgery prior to scheduling by IM, Cards, and ID. - If surgical clearance can not be obtained, recommend US-guided drainage of cyst and biopsy with cytology. 2. Anemia - Chronic VS malignancy related - Continue to trend labs - Transfuse if less than 7. If surgical intervention is planned, recommend transfusion to preop Hgb 10.0. 3. Recent NSTEMI - Cardiology following. Appreciative of recomme ndations. 4. 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 - Neurology following 5. R/O Meningitis - Continues on acyclovir for potential aseptic meningitis. - Cultures pending. 6. Recent h/o DVT - IVC filter in place - Eliquis transitioned to lovenox on 12/03/19 PLAN: Follow up cardiac and IM clearance for XLAP and SANJUANITA. Case discussed with and POC approved by Dr. Helen Black, attending Gynecologic Oncologist. Jessica Mirza MD, PhD INFORMATION SYSTEMS TECHNICIAN PGY3 Pager: Electronically Signed By: Jessica Mirza MD On 12/04/19 14:53 Co Signature By: Modify Signature By: Jessica Mirza MD On 12/04/19 14:53 Patient seen and examined. Agree with above assessment and plan. Discussed possible surgery with patient and family. Also reasonable to do CT guided drainage to assess for malignancy given poor perfromance status. Dr Helen Black Posting Clerk Onc Attending [facility] [phone] (cell) Electronically Signed By: Helen Black MD On 12/04/19 18:04 Co Signature By: Modify Signature By: Helen Black MD On 12/04/19 18:04 History and Physical Patient: JOSEPH VALDIVIA MA 12/04/2019 [facility] Age: 79 years Sex: F : 1940 Active Ins urance: MEDICARE [phone] [facility] Admitting MD: Tito Saunders MD Location: [facility] B3A: B331: 01 PCP: Carol Ruff MD Author: Jasper Roche MD Subjective No new complaints or today Awaiting for front window cashier decision regarding vela rgical intervention Objective Vitals and Measurements T: 36.6 C (Oral) TMIN: 36.3 C (Oral) TMAX: 37.0 C (Oral) HR: 75 RR: 18 BP: 127/75 SpO2: 94% Oxygen Method: Room air WT: 74 kg Physical Exam GEN: No acute distress, calm and relaxed, diffi culty finding words at times, HEENT: oropharynx clear, mucous membranes moist NECK: supple, no jugular venous distention CV: S1 and S2 with no S3 or S4, regular rate an d rhythm, no rubs or gallops PULM: clear to auscultation bilaterally, normal respiratory excursion ABD: Palpable suprapubic ca th nurse extending up to the umbilicus, firm, smooth surface, associated discomfort on palpating, nondistended, normoactive bowel sounds, no guarding or rebound. EXTR: no cyanosis, clubbing or edema NEURO: Non-focal, moves all extremities, poor memory, difficulty finding words Lab Results Microbiology - All Encounters, All Results, Las t 90 days Microbiology Studies Recently Resulted [id number] CSF Culture Status: Final 11/29/2019 Lumbar Culture Report: No growth [id number] Gram Stain Status: Gram Stain 11/29/2019 Cerebrospinal Fluid Gram Stain: White Blood Cells seen No organisms seen. Culture Report: BMP - All Encounters, Most Recent, Last 7 days Basic Metabolic Panel (BMP) Anion Gap: 13 BUN: 10 mg/dL Calcium: 8.2 mg/dL Low Chloride: 106 mmol/L CO2: 25 mmol/L Creatinine: 1.24 mg/dL High Glucose Level: 94 mg/dL Potassium: 3.7 mmol/L Sodium: 140 mmol/L CBC - All Encounters, Most Recent, Last 7 days CBC WBC: 9.6 thousand/uL RBC: 3.08 million/uL Low Hgb: 9.5 gm/dL Low Hct: 28.1 % Low MCV: 91.1 fL MCH: 30.9 pg MCHC: 33.9 gm/dL Plt: 251 thousand/uL RDW: 13.8 % Antibiotics Ordered acyclovir: 370 mg, IV, q12hr 12/04/19 08:57 - A ctive ( 1 days ) Inactive acyclovir: 720 mg, IV, q8hr 11/27/19 17:25 - 08:57 ( 8 days ) Assessment/Plan > Abdominal [facility] differentials of possible aseptic meningitis from a viral etiology versus reactive abnormality from the multiple CVAs. > Incomplete emptying of the bladder and no uri nary retention > Recurrent acute embolic i nfarcts most prominent in the right occipital lobe and bilateral cerebellum, No associated hemorrhage. > Large ovarian cyst of abo ut 12 cm in diameter: Concerning for ovarian malignant neoplasm > Lower extremity deep vein thrombosis > Acute renal failure: Prog ressively increasing creatinine which could be multifactorial including medication possible urinary retention > Ingrown right foot second toenail > Normocytic anemia > Low abdominal distention due to ovarian cyst > Change the dose of acyclovir to 5 mg/ kg body weight pending HSV and VZV PCR > Follow-up on HSV and VZV CSF PCR if negative will discontinue acyclovir > Social Insurance Administrator/oncologist have been consulted. > Repeat bladder scan due to worsening renal fu nction > I have discussed this evangelina e with patient, her caregiver at the bedside, as well as nurse nd Dr. Saunders Orders: acyclovir, 370 mg, IV, q12hr, Infuse over: 1 hr , Start: 12/04/19 9:00:00 MST Rx Monitoring Electronically Signed By: Jasper Rohce MD On 12/04/19 14:15 Co Signature By: Modify Signature By: Jasper Roche MD On 12/04/19 14:15 History and Physical Patient: JOSEPH VALDIVIA MA 12/04/2019 [facility] Age: 79 years Sex: F : 1940 Active Ins urance: MEDICARE [phone] [facility] Admitting MD: Tito Saunders MD Location: [facility] B3A: B331: 01 PCP: Carol Ruff MD Author: Zee Ramirez Patient is a 79 year old fe male with PMHx significant for previous stroke and DVT who presented to the ED on 11/27/2019 with complaints of generalized weakness, nausea, vomiting, and diarrhea. Per EMS, her field EKG showed ST elev ations in 2, 3, and aVF. She is currently on Eliquis. EMS administered Aspirin and Zofran with some relief. Patient follows with Dr. Echeverria. She denies chest pain, abdominal p ain, shortness of breath. Up on arrival patient hypertensive 166/97. Labs showed WBC 14.1, PT 16.6, AST 40, Alkphos 258, troponin elevated, influenza negative. CTA abdomen showed 'No aortic aneurysm or d issection. There is mild jj nosis at the proximal celiac artery which can be seen with median arcuate ligament syndrome. Additionally, there is moderate narrowing of the SMA at the origin and proximally without jorge alberto stenosis. The re are striated appearance the bilateral kidneys which may reflect pyelonephritis. However, underlying infarct could also be of consideration especially on the right side. No focal collection identified . Multiple probable infarcts are seen of the spleen which are of indeterminate age but may be chronic. 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 At this time the re is no indication for angiography or aggressive treatment. Venous US negative for DVT. Neurology was consulted. Brain MRI showed 'Innumerable acute embolic infarcts most pr ominent in the right occipit al lobe and bilateral cerebellum, new compared to 11/05/2019. No associated hemorrhage.' Cardiology following. There is no plan for cardiac cath now due to repeat stroke risk. Patient is s/p lumbar punctu re on 11/29. There is some concern for aseptic meningitis for which ID was consulted. CT scan revealing large ovarian mass. Reviewed with ID. Posting Clerk onc following and is consider ing surgical debulking, pelv ic US showing 'Complex primarily cystic mass pelvis. Neoplasm must be excluded'. [id number] measured at 496. Patient seen and examined, case discussed with RN, Dr. Black, and multiple family members at bedside. CEA 125 measured at 496. pending cardiology pre-op c learance. if patient unable to proceed with surgical intervention, cytogenetic technician onc will proceed with biopsy. Continue to hold Eliquis and now on full dose L ovenox. Objective Vitals and Measurements T: 36.5 C (Oral) TMIN: 36.3 C (Oral) TMAX: 37.0 C (Oral) HR: 79 RR: 18 BP: 153/92 SpO2: 95% Oxygen Method: Room air WT: 74 kg Physical Exam GENERAL: Nontoxic HEENT: Normocephalic NECK: supple, no rigidity. LUNGS: No crackles or wheezes. CV: RRR, normal S1/S2, GI: soft, normoactive bowel sounds : no suprapubic or flank tenderness. BACK: no spinal or paraspinal tenderness EXT: no edema SKIN: warm and dry, no ulcerations. NEURO: Cranial nerves 2-12 grossly intact. Lab Results Common Labs - This Encounter, Most Recent, Last 24 hours Last 24 Hours Hematology-CBC 12/04/19 General Chemistry 12/04/19 WBC: 9.6 Sodium: 140 RBC:3.08 (L) Potassium: 3.7 Hgb:9.5 (L) Chloride: 106 Hct:28.1 (L) CO2: 25 MCV: 91.1 Anion Gap: 13 MCH: 30.9 Glucose Level: 94 MCHC: 33.9 BUN: 10 RDW: 13.8 Creatinine:1.24 (H) Plt: 251 eGFR Non- Am: 42 Neuts: 74.1 eGFR Afr/Amer: 51 Lymphs: 12.8 Calcium:8.2 (L) Monos.: 10.1 Eos.: 2.0 Baso.: 1.0 ABS Neut: 7.1 ABS Lymph: 1.2 ABS [place]: 1.0 ABS Eos: 0.2 ABS Baso: 0.1 CBC Scan: Auto Diff Additional No qualifying data available. Antibiotics Ordered acyclovir: 370 mg, IV, q12hr 12/04/19 08:57 - A ctive ( 1 days ) Inactive acyclovir: 720 mg, IV, q8hr 11/27/19 17:25 - 08:57 ( 8 days ) Medications - This Encounter, All Results, Last 6 months Scheduled acyclovir + NaCl 0.9%: 370 mg, 7.4 mL, 100 mL/h r, IV, q12hr amLODIPine 2.5 mg Tab: 2.5 mg, PO, qDay aspirin 81 mg Chew Tab: 81 mg, PO, Daily atorvastatin 40 mg Tab: 40 mg, PO, qDay ca carb/vit D 500mg rosebud/200 I 1 Tab, PO, BID carvedilol 3.125 mg Tab: 6.25 mg, PO, BID citalopram 10 mg tab: 10 mg, PO, Daily cyanocobalamin 100 mcg Tab: 50 mcg, PO, qDay enoxaparin 80 mg/0.8 mL Inj: 70 mg, SUBCUT, q12 hr famotidine 20 mg Tab: 20 mg, PO, Daily sodium chloride: 10 mL, IV Push, q12hr PRN acetaminophen 325 mg Tab: 650 mg, PO, q4hr, PRN : Pain Mild (1-3) acetaminophen 500 mg Tab: 500 mg, PO, q6hr, PRN : Pain/Temperature albuterol (0.083%) 2.5 mg/3 mL 2.5 mg, 3 mL, NEB - inhalation, q4hr, PRN: Shortness of breath or wheezing docusate/senna (50/8.6) mg Tab 2 Tab, PO, qHS, PRN: Constipation hydrALAZINE 20 mg/mL 1mL Inj: 5 mg, IV Push, q4 hr, PRN: Other (see Comments) magnesium oxide 400 mg Tab: 400 mg, PO, Per Par ameter, PRN: Hypomagnesemia magnesium sulf /SW: 2 gm, 5 0 mL, 25 mL/hr, IV, Per Parameter, PRN: Hypomagnesemia magnesium sulf /SW: 4 gm, 1 00 mL, 25 mL/hr, IV, Per Parameter, PRN: Hypomagnesemia morphine 2 mg/mL 1mL Inj: 2 mg, IV Push , q4hr, PRN: Pain Scale (See Comments) nalOXone 0.4 mg/mL 1mL Inj: 0.2 mg, IV Push, q2min, PRN: Respiratory depression ondansetron 2 mg/mL Inj 2mL : 4 mg, IV Push, q4hr, PRN: Nausea / Vomiting 1st Choice oxyCODONE 5 mg Tab Immediate R 5 mg, PO, q6hr, PRN: Pain potassium bicarbonate 20 mEq E 20 mEq, PO, Per Parameter, PRN: Hypokalemia potassium bicarbonate 20 mEq E 40 mEq, PO, Per Parameter, PRN: Hypokalemia potassium Cl / SW Premix: 1 0 mEq, 100 mL, 100 mL/hr, IV, Per Parameter, PRN: Hypokalemia prochlorperazine 5 mg/mL 2 mL 5 mg, IV Push, q4hr, PRN: Nausea / Vomiting 2nd Choice sodium chloride: 10 mL, IV Push, Per Parameter, PRN: Other (see Comments) temazepam 7.5 mg Cap: 7.5 mg, PO, qHS, PRN: Ins omnia IV NaCl 0.9%: 20 mL/hr, IV, Stop: 12/30/19 11:07:0 0 MST Assessment/Plan -Recurrent CVA -R eye blurry vision. -Gastroenteritis -Hx of DVT -Large ovarian mass with elevated CEA 125 Plan - Neuro following. Brain MR I showing 'Innumerable acute embolic infarcts most prominent in the right occipital lobe and bilateral cerebellum, new compared to 11/05/2019. No associated hemorrhage.' Patien t is s/p lumbar puncture 11/05 6. CSF fluid pending. R eye blurry vision improving. - No evidence of DVT on US. Cardiology following. No plan for inpatient cardiac cath due to risk for stroke. - Concern for possible asep tic meningitis. ID following. Continue acyclovir for now. Waiting on HSV as well as varicella to determine antiviral medications. - CT scan revealing large o varian mass. Reviewed with cytogenetic technician onc. Pelvic US showing 'Complex primarily cystic mass pelvis. Neoplasm must be excluded'. Posting Clerk onc considering surgical debulking. Will need car diac clearance before any pr ocedure. Hold Eliquis and give full dose Lovenox again in anticipation for surgical procedure. If she is not cleared for surgical intervention, will proceed with biopsy for f urther evaluation. Her CEA level was elevated at 496 - If she is to proceed with surgery, she is at high risk as she had multiple strokes while being on blood thinners, she also had an NSTEMI on this admission Lengthy discussion with Dr. Black, patient and patient's family members in the room and on the phone. All questions answered. This document was transcrib ed by neginibbart Ramirez for Provider: Dr. Saunders on 12/04/19. I, Tito Saunders, have revie wed and agree with all documentation in this transcribed note. Electronically Signed By: Tito Saunders MD On 12/04/19 16:10 Co Signature By: Modify Signature By: Zee Ramirez On 12/04/19 11:34 History and Physical Patient: JOSEPH VALDIVIA MA 12/03/2019 [facility] Age: 79 years Sex: F : 1940 Active Ins urance: MEDICARE [phone] [facility] Admitting MD: Tito Saunders MD Location: [facility] B3A: B331: 01 PCP: Carol Ruff MD Author: Nathalie Landrum Subjective Patient is a 79 year old fe male with PMHx significant for previous stroke and DVT who presented to the ED on 11/27/2019 with complaints of generalized weakness, nausea, vomiting, and diarrhea. Per EMS, her field EKG showed ST elev ations in 2, 3, and aVF. She is currently on Eliquis. EMS administered Aspirin and Zofran with some relief. Patient follows with Dr. Echeverria. She denies chest pain, abdominal p ain, shortness of breath. Up on arrival patient hypertensive 166/97. Labs showed WBC 14.1, PT 16.6, AST 40, Alkphos 258, troponin elevated, influenza negative. CTA chest showed 'No aortic aneurysm or dis section. 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 Additionally, there is moderate narrowing of the SMA at the origin and proximally w ithout jorge alberto stenosis. There are striated appearance the bilateral kidneys which may reflect pyelonephritis. However, underlying infarct could also be of consideration especially on the right side. No f ocal collection identified. Multiple probable infarcts are seen of the spleen which are of indeterminate age but may be chronic. 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 At this time there is no indication for angiography or aggressive treatment. Venous US negative for DVT. Neurology was consulted. Brain MRI showed 'Innumerable acute embolic infarcts most prom inent in the right occipital lobe and bilateral cerebellum, new compared to 11/05/2019. No associated hemorrhage.' Cardiology following. There is no plan for cardiac cath now due to repeat stroke risk. Pa tient is s/p lumbar puncture on 11/29. There is some concern for aseptic meningitis, ID consulted. CT scan revealing large ovarian mass. Reviewed with ID. Posting Clerk onc has been consulted, pelvic US showing 'C omplex primarily cystic mass pelvis. Neoplasm must be excluded'. Posting Clerk onc considering surgical debulking. Will need cardiac clearance before any procedure. Patient seen and examined, case discussed with RN, friend, and son on the phone Patient and friend at bedside made aware of the plan Mass is large on US, ordering CA 125 Objective Vitals and Measurements T: 36.5 C (Oral) TMIN: 36.5 C (Oral) TMAX: 37.1 C (Oral) HR: 77 RR: 22 BP: 144/84 SpO2: 95% Oxygen Method: Room air WT: 73.5 kg Physical Exam GENERAL: Nontoxic more awake today than yesterd ay, tearful today HEENT: Normocephalic NECK: supple, no rigidity. LUNGS: No crackles or wheezes. CV: RRR, normal S1/S2, GI: soft, normoactive bowel sounds : no suprapubic or flank tenderness. BACK: no spinal or paraspinal tenderness EXT: no edema SKIN: warm and dry, no ulcerations. NEURO: Cranial nerves 2-12 grossly intact. Lab Results Common Labs - This Encounter, Most Recent, Last 24 hours Last 24 Hours Hematology-CBC 12/03/19 General Chemistry 12/03/19 WBC: 10.0 Sodium: 138 RBC:3.03 (L) Potassium: 3.5 Hgb:9.3 (L) Chloride: 106 Hct:27.5 (L) CO2: 23 MCV: 90.7 Anion Gap: 12 MCH: 30.6 Glucose Level:108 (H) MCHC: 33.7 BUN:9 (L) RDW: 13.7 Creatinine: 0.99 Plt: 250 eGFR Non- Am: 54 Neuts: 77.2 eGFR Afr/Amer: >60 Lymphs:8.0 (L) Calcium:8.3 (L) Monos.: 12.4 Eos.: 1.6 Baso.: 0.8 ABS Neut: 7.7 ABS Lymph: 0.8 ABS [place]: 1.2 ABS Eos: 0.2 ABS Baso: 0.1 CBC Scan: Auto Diff Additional No qualifying data available. Antibiotics Ordered acyclovir: 720 mg, IV, q8hr 11/27/19 17:25 - Ac tive ( 7 days ) Medications - This Encounter, All Results, Last 6 months Scheduled acyclovir: 720 mg, 14.4 mL, 264.4 mL/hr, IV, q8 hr amLODIPine 2.5 mg Tab: 2.5 mg, PO, qDay apixaban 5 mg Tab: 5 mg, PO, BID aspirin 81 mg Chew Tab: 81 mg, PO, Daily atorvastatin 40 mg Tab: 40 mg, PO, qDay ca carb/vit D 500mg rosebud/200 I 1 Tab, PO, BID carvedilol 3.125 mg Tab: 6.25 mg, PO, BID citalopram 10 mg tab: 10 mg, PO, Daily cyanocobalamin 100 mcg Tab: 50 mcg, PO, qDay famotidine 20 mg Tab: 20 mg, PO, Daily sodium chloride: 10 mL, IV Push, q12hr PRN acetaminophen 325 mg Tab: 650 mg, PO, q4hr, PRN : Pain Mild (1-3) acetaminophen 500 mg Tab: 500 mg, PO, q6hr, PRN : Pain/Temperature albuterol (0.083%) 2.5 mg/3 mL 2.5 mg, 3 mL, NEB - inhalation, q4hr, PRN: Shortness of breath or wheezing docusate/senna (50/8.6) mg Tab 2 Tab, PO, qHS, PRN: Constipation hydrALAZINE 20 mg/mL 1mL Inj: 5 mg, IV Push, q4 hr, PRN: Other (see Comments) magnesium oxide 400 mg Tab: 400 mg, PO, Per Par ameter, PRN: Hypomagnesemia magnesium sulf /SW: 2 gm, 5 0 mL, 25 mL/hr, IV, Per Parameter, PRN: Hypomagnesemia magnesium sulf /SW: 4 gm, 1 00 mL, 25 mL/hr, IV, Per Parameter, PRN: Hypomagnesemia morphine 2 mg/mL 1mL Inj: 2 mg, IV Push , q4hr, PRN: Pain Scale (See Comments) nalOXone 0.4 mg/mL 1mL Inj: 0.2 mg, IV Push, q2min, PRN: Respiratory depression ondansetron 2 mg/mL Inj 2mL : 4 mg, IV Push, q4hr, PRN: Nausea / Vomiting 1st Choice oxyCODONE 5 mg Tab Immediate R 5 mg, PO, q6hr, PRN: Pain potassium bicarbonate 20 mEq E 20 mEq, PO, Per Parameter, PRN: Hypokalemia potassium bicarbonate 20 mEq E 40 mEq, PO, Per Parameter, PRN: Hypokalemia potassium Cl / SW Premix: 1 0 mEq, 100 mL, 100 mL/hr, IV, Per Parameter, PRN: Hypokalemia prochlorperazine 5 mg/mL 2 mL 5 mg, IV Push, q4hr, PRN: Nausea / Vomiting 2nd Choice sodium chloride: 10 mL, IV Push, Per Parameter, PRN: Other (see Comments) temazepam 7.5 mg Cap: 7.5 mg, PO, qHS, PRN: Ins omnia IV NaCl 0.9%: 20 mL/hr, IV, Stop: 12/30/19 11:07:0 0 MST Diagnostic Results (12/02/2019 15:24 MST US Pelvic Non OB) IMPRESSION: Complex primarily cystic mass pelvis. Neoplasm must be excluded. [1] Assessment/Plan -Recurrent CVA -R eye blurry vision. -Gastroenteritis -Hx of DVT -Large ovarian mass Plan Neuro following. 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 No associated hemorrhage.' Patient is s/p lumbar puncture 11/29. Follow up LP analysis when available. R eye blurry vision improving. No evidence of DVT on US. C ardiology following. No plan for inpatient cardiac cath due to risk for stroke. Eliquis held for LP and patient was given full dose Lovenox and later resumed, However given M ass and possible excision wi ll hold her Eliquis last dose was 12/02. Switch to full dose Lovenox Concern for possible asepti c meningitis. ID following. Continue acyclovir for now. Waiting on hsv as well as varicella to determine antiviral meds. Continue Statin CT scan revealing large ova murali mass. Reviewed with ID. Posting Clerk onc consulted for further recs. Pelvic US showing 'Complex primarily cystic mass pelvis. Neoplasm must be excluded'. Check CA125. Posting Clerk onc con sidering surgical debulking. Will need cardiac clearance before any procedure. Hold Eliquis and give full dose Lovenox again in anticipation for surgical procedure. I spoke with the patients son and upd ated him on the plan. He will be here tomorrow . If she is to proceed with s urgery, she is at high risk as he had multiple strokes while being on blood thinners, she also had an NSTEMI while she was heree, her EF is around 50%, awaiting cards recs This document was transcrib ed by yayo Landrum for Provider: Dr. Saunders on 12/03/2019. I, Tito Saunders, have revie wed and agree with all documentation in this transcribed note. [1] US Pelvic Non OB; Greg Turpin MD 2019 15:24 MST Electronically Signed By: Tito Saunders MD On 12/03/19 15:22 Co Signature By: Modify Signature By: Nathalie Landrum On 12/03/19 11:32 History and Physical Patient: JOSEPH VALDIVIA MA 12/02/2019 [facility] Age: 79 years Sex: F : 1940 Active Ins urance: MEDICARE [phone] [facility] Admitting MD: Tito Saunders MD Location: [facility] B3A: B331: 01 PCP: Carol Ruff MD Author: Jasper Roche MD Subjective Mild headache, no photophobia, no nausea or vom iting. Post void bladder scan show ed about 497 mls however on straight catheterization at 100 mils were obtained She has no abdominal pain, no dysuria urgency o r incontinent of urine Objective Vitals and Measurements T: 36.6 C (Oral) TMIN: 36.6 C (Oral) TMAX: 37.1 C (Oral) HR: 87 RR: 20 BP: 124/76 SpO2: 94% Oxygen Method: Room air WT: 72.5 kg Physical Exam GEN: Not anxious looking at today, no acute distress, awake and alert, poor memory, HEENT: Symmetrical face, cl ear conjunctiva, no nystagmus, oropharynx clear, mucous membranes moist NECK: supple no rigidity, no jugular venous dis tention CV: regular rate and rhythm, no rubs or gallops PULM: clear to auscultation bilaterally, normal respiratory excursion ABD: Persistent fullness in the suprapubic area extending up to the umbilicus level with associated dull percussion note, no associated tenderness, normoactive bowel sounds, no guarding or rebound. EXTR: no cyanosis, clubbing or edema NEURO: Non-focal, moves all extremities Lab Results BMP - All Encounters, Most Recent, Last 7 days Basic Metabolic Panel (BMP) Anion Gap: 10 BUN: 8 mg/dL Low Calcium: 8.5 mg/dL Chloride: 106 mmol/L CO2: 27 mmol/L Creatinine: 0.78 mg/dL Glucose Level: 95 mg/dL Potassium: 4.1 mmol/L Sodium: 139 mmol/L CBC - All Encounters, Most Recent, Last 7 days CBC WBC: 8.5 thousand/uL RBC: 3.17 million/uL Low Hgb: 9.6 gm/dL Low Hct: 28.7 % Low MCV: 90.5 fL MCH: 30.4 pg MCHC: 33.5 gm/dL Plt: 261 thousand/uL RDW: 13.7 % Antibiotics Ordered acyclovir: 720 mg, IV, q8hr 11/27/19 17:25 - Ac tive ( 6 days ) Assessment/Plan > Abdominal CSF analysis wi differentials of possible aseptic meningitis from a viral etiology versus reactive abnormality from the multiple CVAs. > Incomplete emptying of the bladder and no uri nary retention > Recurrent acute embolic i nfarcts most prominent in the right occipital lobe and bilateral cerebellum, No associated hemorrhage. > Large ovarian cyst of abo ut 12 cm in diameter: Concerning for ovarian malignant neoplasm > Lower extremity deep vein thrombosis > Ingrown right foot second toenail > Normocytic anemia > Low abdominal distention due to ovarian cyst > I do agree with continuing the acyclovir pend ing HSV and VZV PCR > Follow-up on HSV and VZV CSF PCR if negative will discontinue acyclovir > Social Insurance Administrator/oncologist have been consulted. > No further straight cath > I have discussed this evangelina e with patient, her caregiver at the bedside, as well as nurse ari Saunders Orders: Straight Cath Electronically Signed By: Jasper Roche MD On 12/02/19 14:10 Co Signature By: Modify Signature By: History and Physical Patient: JOSEPH VALDIVIA MA 12/02/2019 [facility] Age: 79 years Sex: F : 1940 Active Ins urance: MEDICARE [phone] [facility] Admitting MD: Tito Saunders MD Location: [facility] B3A: B331: 01 PCP: Carol Ruff MD Author: Nathalie Landrum Subjective Patient is a 79 year old fe male with PMHx significant for previous stroke and DVT who presented to the ED on 11/27/2019 with complaints of generalized weakness, nausea, vomiting, and diarrhea. Per EMS, her field EKG showed ST elev ations in 2, 3, and aVF. She is currently on Eliquis. EMS administered Aspirin and Zofran with some relief. Patient follows with Dr. Echeverria. She denies chest pain, abdominal p ain, shortness of breath. Up on arrival patient hypertensive 166/97. Labs showed WBC 14.1, PT 16.6, AST 40, Alkphos 258, troponin elevated, influenza negative. CTA chest showed 'No aortic aneurysm or dis section. 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 Additionally, there is moderate narrowing of the SMA at the origin and proximally w ithout jorge alberto stenosis. There are striated appearance the bilateral kidneys which may reflect pyelonephritis. However, underlying infarct could also be of consideration especially on the right side. No f ocal collection identified. Multiple probable infarcts are seen of the spleen which are of indeterminate age but may be chronic. 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 At this time there is no indication for angiography or aggressive treatment. Venous US negative for DVT. Neurology was consulted. Brain MRI showed 'Innumerable acute embolic infarcts most prom inent in the right occipital lobe and bilateral cerebellum, new compared to 11/05/2019. No associated hemorrhage.' Cardiology following. There is no plan for cardiac cath now due to repeat stroke risk. Viry buenrostro is s/p lumbar puncture on 11/29. There is some concern for aseptic meningitis, ID consulted. CT scan revealing large ovarian mass. Reviewed with ID. Posting Clerk onc has been consulted for further recs. Patient seen and examined, case discussed with RN. Patient reports feeling fatigued today. Has been having loose stools. again Labs still pending Posting Clerk onc will evaluate the patient tomorrow orde red pelvic us Objective Vitals and Measurements T: 36.6 C (Oral) TMIN: 36.6 C (Oral) TMAX: 37.1 C (Oral) HR: 87 RR: 20 BP: 124/76 SpO2: 94% Oxygen Method: Room air WT: 72.5 kg Physical Exam GENERAL: Nontoxic more awake today than yesterd ay HEENT: Normocephalic NECK: supple, no rigidity. LUNGS: No crackles or wheezes. CV: RRR, normal S1/S2, GI: soft, normoactive bowel sounds : no suprapubic or flank tenderness. BACK: no spinal or paraspinal tenderness EXT: no edema SKIN: warm and dry, no ulcerations. NEURO: Cranial nerves 2-12 grossly intact. Aler t and oriented x2. Lab Results Common Labs - This Encounter, Most Recent, Last 24 hours Last 24 Hours Hematology-CBC 12/02/19 General Chemistry 12/02/19 WBC: 8.5 Sodium: 139 RBC:3.17 (L) Potassium: 4.1 Hgb:9.6 (L) Chloride: 106 Hct:28.7 (L) CO2: 27 MCV: 90.5 Anion Gap: 10 MCH: 30.4 Glucose Level: 95 MCHC: 33.5 BUN:8 (L) RDW: 13.7 Creatinine: 0.78 Plt: 261 eGFR Non- Am: >60 Neuts: 76.1 eGFR Afr/Amer: >60 Lymphs: 10.6 Calcium: 8.5 Monos.: 10.5 Eos.: 1.9 Baso.: 0.9 ABS Neut: 6.5 ABS Lymph: 0.9 ABS [place]: 0.9 ABS Eos: 0.2 ABS Baso: 0.1 CBC Scan: Auto Diff Additional No qualifying data available. Antibiotics Ordered acyclovir: 720 mg, IV, q8hr 11/27/19 17:25 - Ac tive ( 6 days ) Medications - This Encounter, All Results, Last 6 months Scheduled acyclovir: 720 mg, 14.4 mL, 264.4 mL/hr, IV, q8 hr amLODIPine 2.5 mg Tab: 2.5 mg, PO, qDay apixaban 5 mg Tab: 5 mg, PO, BID aspirin 81 mg Chew Tab: 81 mg, PO, Daily atorvastatin 40 mg Tab: 40 mg, PO, qDay ca carb/vit D 500mg rosebud/200 I 1 Tab, PO, BID carvedilol 3.125 mg Tab: 6.25 mg, PO, BID citalopram 10 mg tab: 10 mg, PO, Daily cyanocobalamin 100 mcg Tab: 50 mcg, PO, qDay famotidine 20 mg Tab: 20 mg, PO, Daily sodium chloride: 10 mL, IV Push, q12hr PRN acetaminophen 325 mg Tab: 650 mg, PO, q4hr, PRN : Pain Mild (1-3) acetaminophen 500 mg Tab: 500 mg, PO, q6hr, PRN : Pain/Temperature albuterol (0.083%) 2.5 mg/3 mL 2.5 mg, 3 mL, NEB - inhalation, q4hr, PRN: Shortness of breath or wheezing docusate/senna (50/8.6) mg Tab 2 Tab, PO, qHS, PRN: Constipation hydrALAZINE 20 mg/mL 1mL Inj: 5 mg, IV Push, q4 hr, PRN: Other (see Comments) magnesium oxide 400 mg Tab: 400 mg, PO, Per Par ameter, PRN: Hypomagnesemia magnesium sulf /SW: 2 gm, 5 0 mL, 25 mL/hr, IV, Per Parameter, PRN: Hypomagnesemia magnesium sulf /SW: 4 gm, 1 00 mL, 25 mL/hr, IV, Per Parameter, PRN: Hypomagnesemia morphine 2 mg/mL 1mL Inj: 2 mg, IV Push , q4hr, PRN: Pain Scale (See Comments) nalOXone 0.4 mg/mL 1mL Inj: 0.2 mg, IV Push, q2min, PRN: Respiratory depression ondansetron 2 mg/mL Inj 2mL : 4 mg, IV Push, q4hr, PRN: Nausea / Vomiting 1st Choice oxyCODONE 5 mg Tab Immediate R 5 mg, PO, q6hr, PRN: Pain potassium bicarbonate 20 mEq E 20 mEq, PO, Per Parameter, PRN: Hypokalemia potassium bicarbonate 20 mEq E 40 mEq, PO, Per Parameter, PRN: Hypokalemia potassium Cl / SW Premix: 1 0 mEq, 100 mL, 100 mL/hr, IV, Per Parameter, PRN: Hypokalemia prochlorperazine 5 mg/mL 2 mL 5 mg, IV Push, q4hr, PRN: Nausea / Vomiting 2nd Choice sodium chloride: 10 mL, IV Push, Per Parameter, PRN: Other (see Comments) temazepam 7.5 mg Cap: 7.5 mg, PO, qHS, PRN: Ins omnia IV NaCl 0.9%: 20 mL/hr, IV, Stop: 12/30/19 11:07:0 0 MST Assessment/Plan -Recurrent CVA -R eye blurry vision. -Gastroenteritis -Hx of DVT Plan Neuro following. 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 No associated hemorrhage.' Patient is s/p lumbar puncture 11/29. Follow up LP analysis when available. R eye blurry vision improving. No evidence of DVT on US. C ardiology following. No plan for inpatient cardiac cath due to risk for stroke. Eliquis held for LP and patient was given full dose Lovenox. Will discontinue Lovenox now and resume Eliquis Concern for possible asepti c meningitis. ID following. Continue acyclovir for now. Waiting on hsv as well as varicella to determine antiviral meds. If negative, may discontinue Acyclovir. Continue Statin PT/OT eval recommending rehab but family would like her to go home CT scan revealing large ova murali mass. Reviewed with ID. Posting Clerk onc has been consulted for further recs. They will see her tomorrow 12/02. ordered pelvic us Called son to update him left a message This document was transcrib ed by yayo Landrum for Provider: Dr. Saunders on 12/02/2019. I, Tito Saunders, have revie wed and agree with all documentation in this transcribed note. Electronically Signed By: Tito Saunders MD On 12/02/19 14:57 Co Signature By: Modify Signature By: Nathalie Landrum On 12/02/19 13:30 History and Physical 12/02/2019 [facility] Patient: JOSEPH VALDIVIA ( EV) [facility] Age: 79 years Sex: F : 1940 Associated Diagnoses: None Author: Kristie Carlisle MD Basic Information Date of Service: 12/02/2019 09:35. Admission Information: Admit Days = 5, Patient T ype = Inpatient . Impression and Plan Diagnosis SUBJECTIVE: F/u +Trop: denies CP, SOB Overall feeling improved ROS: no abd pain, hematochezia, vomiting, hemat uria OBJECTIVE: NAD CTAB RRR no m/r/g SOFT NT/ND No c/c/e Tele: SR IMPRESSION: 1. +Troponin, demand ischemia. No angina. 2. Innumerable multifocal CV As, unclear why she is having recurrence despite being on Eliquis 3. Recent 2 admissions for m ultifocal CVA, on Eliquis, known PFO; AMBER unremarkable 4. LLE DVT s/p IVC filter while at [facility] 5. S/p LP. ( eLEVATED PROPTEIN SEEN) PLAN: 1. asa/statin/coreg 2. pls resume Eliquis if ok w/Neurology 3. no plan for inpt cath > will do oupt stress a nd address from there 4. OK to DC from cardiac view. 5. F/U with Dr Echeverria in 2 weeks. . Health Status Intake and Output 24 hour I&O data 24hr I&O Intake Output Balance Yesterday: 550.80 500.00 50.80 Today: 430.00 0.00 430.00 Allergies: Allergic Reactions (All) NKA Current medications: Antibiotic Info Ordered acyclovir: 720 mg, IV, q8hr 11/27/19 17:25 - Ac tive ( 6 days ) , Scheduled acyclovir: 720 mg, 14.4 mL, 264.4 mL/hr, IV, q8h r amLODIPine 2.5 mg Tab: 2.5 mg, PO, qDay apixaban 5 mg Tab: 5 mg, PO, BID aspirin 81 mg Chew Tab: 81 mg, PO, Daily atorvastatin 40 mg Tab: 40 mg, PO, qDay ca carb/vit D 500mg rosebud/200 I 1 Tab, PO, BID carvedilol 3.125 mg Tab: 6.25 mg, PO, BID citalopram 10 mg tab: 10 mg, PO, Daily cyanocobalamin 100 mcg Tab: 50 mcg, PO, qDay famotidine 20 mg Tab: 20 mg, PO, Daily sodium chloride: 10 mL, IV Push, q12hr PRN Meds acetaminophen 325 mg Tab: 650 mg, PO, q4hr, PRN: Pain Mild (1-3) acetaminophen 500 mg Tab: 500 mg, PO, q6hr, PRN: Pain/Temperature albuterol (0.083%) 2.5 mg/3 mL 2.5 mg, 3 mL, NEB - inhalation, q4hr, PRN: Shortness of breath or wheezing docusate/senna (50/8.6) mg Tab 2 Tab, PO, qHS, P RN: Constipation hydrALAZINE 20 mg/mL 1mL Inj: 5 mg, IV Push, q4h r, PRN: Other (see Comments) magnesium oxide 400 mg Tab: 400 mg, PO, Per Para meter, PRN: Hypomagnesemia magnesium sulf /SW: 2 gm, 50 mL, 25 mL/hr, IV, Per Parameter, PRN: Hypomagnesemia magnesium sulf /SW: 4 gm, 10 0 mL, 25 mL/hr, IV, Per Parameter, PRN: Hypomagnesemia morphine 2 mg/mL 1mL Inj: 2 mg, IV Push, q4hr, P RN: Pain Scale (See Comments) nalOXone 0.4 mg/mL 1mL Inj: 0.2 mg, IV Push, q2min, PRN: Respiratory depression ondansetron 2 mg/mL Inj 2mL: 4 mg, IV Push, q4hr, PRN: Nausea / Vomiting 1st Choice oxyCODONE 5 mg Tab Immediate R 5 mg, PO, q6hr, P RN: Pain potassium bicarbonate 20 mEq E 20 mEq, PO, Per P arameter, PRN: Hypokalemia potassium bicarbonate 20 mEq E 40 mEq, PO, Per P arameter, PRN: Hypokalemia potassium Cl / SW Premix: 10 mEq, 100 mL, 100 mL/hr, IV, Per Parameter, PRN: Hypokalemia prochlorperazine 5 mg/mL 2 m L 5 mg, IV Push, q4hr, PRN: Nausea / Vomiting 2nd Choice sodium chloride: 10 mL, IV Push, Per Parameter, PRN: Other (see Comments) temazepam 7.5 mg Cap: 7.5 mg, PO, qHS, PRN: Inso mnia IV Medications NaCl 0.9%: 20 mL/hr, IV, Stop: 12/30/19 11:07:00 MST ., VS/Measurements 24 hr vital signs (All documented values resulted over the prior 24 hours) Low High Last 36.5 37.1 36.6 (12/01 11:00) ( 04:18) ( 08:27) Temperature PO Temperature PO Temperature PO HR 77 87 87 ( 00:00) ( 08:27) ( 08:27) RR 16 20 20 (12/01 15:00) ( 08:27) ( 08:27) NIBP 115/73 132/77 124/76 (12/01 15:00) (12/01 17:22) ( 08:) NIBP Mean 85 87 87 (12/01 11:00) (12/01 15:00) (12/01 15:00) Weight (kg) Admit 72.56 (11/27 10:35) Current 72.50 ( 06:07) Previous 73.10 (11/27 21:41) Gain/Loss -0.60 Ventilation Low High Last SaO2 93 95 94 (12/01 20:31) (12/01 15:00) ( 08:) == , Last Documented Vital Signs Vital Signs (Most Recent ) Temp PO Heart Rate Resp Rate 36.6 87 20 ( 08:27) ( 08:27) ( 08:27) Non Invasive BP NIBP Mean AdmitWeight CurrentWe ight BMI 124 / 76 87 72.56 72.50 26.02 ( 08:27) (12/01 15:00) (11/27 10:35) (11/05 9 06:07) (11/27 21:41) Ventilation SaO2 FiO2 94 21 (12/02 07:) (11/27 23:20) Review / Management Results Review: 24 hr Labs Labs (All documented values resulted over the p rior 24 hours..) Hematology WBC 8.50 Hgb 9.60L Hct 28.70L Plt 261.00 Chemistry Na 139.00 K 4.10 Cl 106.00 CO2 27.00 Gluc 95.00 Bun 8.00L Cr 0.78 Ca 8.50 Anion Anion Gap 10.00 ( 07:44) , Microbiology Studies Recently Resulted [id number] CSF Culture Status: Prelim 11/29/2019 Lumbar Culture Report: No growth to date [id number] Gram Stain Status: Gram Stain 11/29/2019 Cerebrospinal Fluid Gram Stain: White Blood Cells seen No organisms seen. Culture Report: . Radiology Results Radiologist's interpretation 24hrs Name: JOSEPH VALDIVIA Account: [id number] : 1940 Result Date: Verified By: at : ++++++++++++++++++++++++++++++++++++++++++++++++ +++++++ hospital monitor Electronically Signed By: Kristie Carlisle MD On 12/02/19 09:36 Co Signature By: Modify Signature By: History and Physical Patient: JOSEPH VALDIVIA MA 12/02/2019 [facility] Age: 79 years Sex: F : 1940 Active Ins urance: MEDICARE [phone] [facility] Admitting MD: Tito Saunders MD Location: [facility] B3A: B331: 01 PCP: Carol Ruff MD Author: Nathalie Landrum Subjective Patient is a 79 year old fe male with PMHx significant for previous stroke and DVT who presented to the ED on 11/27/2019 with complaints of generalized weakness, nausea, vomiting, and diarrhea. Per EMS, her field EKG showed ST elev ations in 2, 3, and aVF. She is currently on Eliquis. EMS administered Aspirin and Zofran with some relief. Patient follows with Dr. Echeverria. She denies chest pain, abdominal p ain, shortness of breath. Up on arrival patient hypertensive 166/97. Labs showed WBC 14.1, PT 16.6, AST 40, Alkphos 258, troponin elevated, influenza negative. CTA chest showed 'No aortic aneurysm or dis section. 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 Additionally, there is moderate narrowing of the SMA at the origin and proximally w ithout jorge alberto stenosis. There are striated appearance the bilateral kidneys which may reflect pyelonephritis. However, underlying infarct could also be of consideration especially on the right side. No f ocal collection identified. Multiple probable infarcts are seen of the spleen which are of indeterminate age but may be chronic. 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 At this time there is no indication for angiography or aggressive treatment. Venous US negative for DVT. Neurology was consulted. Brain MRI showed 'Innumerable acute embolic infarcts most prom inent in the right occipital lobe and bilateral cerebellum, new compared to 11/05/2019. No associated hemorrhage.' Cardiology following. There is no plan for cardiac cath now due to repeat stroke risk. Viry buenrostro is s/p lumbar puncture on 11/29. There is some concern for aseptic meningitis, ID consulted. Patient seen and examined, case discussed with RN. Still with mild photophobia. Denies neck stiffn ess. Objective Vitals and Measurements T: 37.1 C (Oral) TMIN: 36.5 C (Oral) TMAX: 37.2 C (Oral) HR: 79 RR: 16 BP: 115/73 SpO2: 95% Oxygen Method: Room air Physical Exam GENERAL: Nontoxic HEENT: Normocephalic NECK: supple, no rigidity. LUNGS: No crackles or wheezes. CV: RRR, normal S1/S2, GI: soft, normoactive bowel sounds : no suprapubic or flank tenderness. BACK: no spinal or paraspinal tenderness EXT: no edema SKIN: warm and dry, no ulcerations. NEURO: Cranial nerves 2-12 grossly intact. Aler t and oriented x2. Lab Results Common Labs - This Encounter, Most Recent, Last 24 hours Last 24 Hours Hematology-CBC 12/01/19 General Chemistry 12/01/19 WBC: 9.6 Sodium: 136 RBC:2.95 (L) Potassium: 3.6 Hgb:9.1 (L) Chloride: 104 Hct:26.5 (L) CO2: 23 MCV: 89.8 Anion Gap: 13 MCH: 30.8 Glucose Level:105 (H) MCHC: 34.3 BUN: 10 RDW: 13.4 Creatinine: 0.74 Plt: 204 eGFR Non- Am: >60 Neuts: 73.5 eGFR Afr/Amer: >60 Lymphs: 12.2 Calcium:8.0 (L) Monos.: 10.6 Eos.: 2.8 Baso.: 0.9 ABS Neut: 7.1 ABS Lymph: 1.2 ABS [place]: 1.0 ABS Eos: 0.3 ABS Baso: 0.1 CBC Scan: Auto Diff Additional No qualifying data available. Antibiotics Ordered acyclovir: 720 mg, IV, q8hr 11/27/19 17:25 - Ac tive ( 5 days ) Medications - This Encounter, All Results, Last 6 months Scheduled acyclovir: 720 mg, 14.4 mL, 264.4 mL/hr, IV, q8 hr amLODIPine 2.5 mg Tab: 2.5 mg, PO, qDay aspirin 81 mg Chew Tab: 81 mg, PO, Daily atorvastatin 40 mg Tab: 40 mg, PO, qDay ca carb/vit D 500mg rosebud/200 I 1 Tab, PO, BID carvedilol 3.125 mg Tab: 6.25 mg, PO, BID citalopram 10 mg tab: 10 mg, PO, Daily cyanocobalamin 100 mcg Tab: 50 mcg, PO, qDay docusate/senna (50/8.6) mg Tab 2 Tab, PO, qHS famotidine 20 mg Tab: 20 mg, PO, Daily sodium chloride: 10 mL, IV Push, q12hr PRN acetaminophen 325 mg Tab: 650 mg, PO, q4hr, PRN : Pain Mild (1-3) acetaminophen 500 mg Tab: 500 mg, PO, q6hr, PRN : Pain/Temperature albuterol (0.083%) 2.5 mg/3 mL 2.5 mg, 3 mL, NEB - inhalation, q4hr, PRN: Shortness of breath or wheezing hydrALAZINE 20 mg/mL 1mL Inj: 5 mg, IV Push, q4 hr, PRN: Other (see Comments) magnesium oxide 400 mg Tab: 400 mg, PO, Per Par ameter, PRN: Hypomagnesemia magnesium sulf /SW: 2 gm, 5 0 mL, 25 mL/hr, IV, Per Parameter, PRN: Hypomagnesemia magnesium sulf /SW: 4 gm, 1 00 mL, 25 mL/hr, IV, Per Parameter, PRN: Hypomagnesemia morphine 2 mg/mL 1mL Inj: 2 mg, IV Push , q4hr, PRN: Pain Scale (See Comments) nalOXone 0.4 mg/mL 1mL Inj: 0.2 mg, IV Push, q2min, PRN: Respiratory depression ondansetron 2 mg/mL Inj 2mL : 4 mg, IV Push, q4hr, PRN: Nausea / Vomiting 1st Choice oxyCODONE 5 mg Tab Immediate R 5 mg, PO, q6hr, PRN: Pain potassium bicarbonate 20 mEq E 20 mEq, PO, Per Parameter, PRN: Hypokalemia potassium bicarbonate 20 mEq E 40 mEq, PO, Per Parameter, PRN: Hypokalemia potassium Cl / SW Premix: 1 0 mEq, 100 mL, 100 mL/hr, IV, Per Parameter, PRN: Hypokalemia prochlorperazine 5 mg/mL 2 mL 5 mg, IV Push, q4hr, PRN: Nausea / Vomiting 2nd Choice sodium chloride: 10 mL, IV Push, Per Parameter, PRN: Other (see Comments) temazepam 7.5 mg Cap: 7.5 mg, PO, qHS, PRN: Ins omnia IV NaCl 0.9%: 20 mL/hr, IV, Stop: 12/30/19 11:07:0 0 MST Assessment/Plan -Recurrent CVA -R eye blurry vision. -Gastroenteritis -Hx of DVT Plan Neuro following. 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 No associated hemorrhage.' Patient is s/p lumbar puncture 11/29. Follow up LP analysis when available. R eye blurry vision improving. No evidence of DVT on US. C ardiology following. No plan for inpatient cardiac cath due to risk for stroke. Eliquis held for LP and patient was given full dose Lovenox. Will discontinue Lovenox now and resume Eliquis Concern for possible asepti c meningitis. Continue acyclovir for now. Waiting on hsv as well as varicella to determine antiviral meds. Consult ID for further recs. Continue Statin PT/OT eval recommending rehab but family would like her to go home This document was transcrib ed by yayo Landrum for Provider: Dr. Saunders on 12/01/2019. ITito, have revie wed and agree with all documentation in this transcribed note. Electronically Signed By: Tito Saunders MD On 12/01/19 18:22 Co Signature By: Modify Signature By: Nathalie Landrum On 12/01/19 16:32 Large ovarian mass Reviewed CT scan findings wi th ID, patients son says the mass was discovered in August during a wellness exam however unsure of size but given her dvt despite be ing on anticoag and patient recurrent strokes will consult cytogenetic technician onc for further recommendations discussed with son and updated him on care of pl an Electronically Signed By: Tito Saunders MD On 12/01/19 19:50 Co Signature By: Modify Signature By: Tito Saunders MD On 12/01/19 19:50 History and Physical 12/01/2019 Chapito alvarez Patient: JOSEPH VALDIVIA ( EV) [facility] Age: 79 years Sex: F : 1940 Associated Diagnoses: None Author: Kristie Carlisle MD Basic Information Date of Service: 12/01/2019 10:03. Admission Information: Admit Days = 4, Patient T ype = Inpatient . Impression and Plan Diagnosis SUBJECTIVE: F/u +Trop: denies CP, SOB Overall feeling improved ROS: no abd pain, hematochezia, vomiting, hemat uria OBJECTIVE: NAD CTAB RRR no m/r/g SOFT NT/ND No c/c/e Tele: SR IMPRESSION: 1. +Troponin, demand ischemia. No angina. 2. Innumerable multifocal CV As, unclear why she is having recurrence despite being on Eliquis 3. Recent 2 admissions for m ultifocal CVA, on Eliquis, known PFO; AMBER unremarkable 4. LLE DVT s/p IVC filter while at Acute Rehab 5. S/p LP PLAN: 1. asa/statin/coreg 2. pls resume Eliquis if ok w/Neurology 3. no plan for inpt cath > will do oupt stress a nd address from there 4. OK to DC from cardiac view. D/W RN . Health Status Intake and Output 24 hour I&O data 24hr I&O Intake Output Balance Yesterday: 1135.77 0.00 1135.77 Today: 12.00 0.00 12.00 Allergies: Allergic Reactions (All) NKA Current medications: Antibiotic Info Ordered acyclovir: 720 mg, IV, q8hr 11/27/19 17:25 - Ac tive ( 5 days ) , Scheduled acyclovir: 720 mg, 14.4 mL, 264.4 mL/hr, IV, q8h r amLODIPine 2.5 mg Tab: 2.5 mg, PO, qDay aspirin 81 mg Chew Tab: 81 mg, PO, Daily atorvastatin 40 mg Tab: 40 mg, PO, qDay ca carb/vit D 500mg rosebud/200 I 1 Tab, PO, BID carvedilol 3.125 mg Tab: 6.25 mg, PO, BID citalopram 10 mg tab: 10 mg, PO, Daily cyanocobalamin 100 mcg Tab: 50 mcg, PO, qDay docusate/senna (50/8.6) mg Tab 2 Tab, PO, qHS enoxaparin 80 mg/0.8 mL Inj: 70 mg, SUBCUT, q12h r famotidine 20 mg Tab: 20 mg, PO, Daily sodium chloride: 10 mL, IV Push, q12hr PRN Meds acetaminophen 325 mg Tab: 650 mg, PO, q4hr, PRN: Pain Mild (1-3) acetaminophen 500 mg Tab: 500 mg, PO, q6hr, PRN: Pain/Temperature albuterol (0.083%) 2.5 mg/3 mL 2.5 mg, 3 mL, NEB - inhalation, q4hr, PRN: Shortness of breath or wheezing hydrALAZINE 20 mg/mL 1mL Inj: 5 mg, IV Push, q4h r, PRN: Other (see Comments) magnesium oxide 400 mg Tab: 400 mg, PO, Per Para meter, PRN: Hypomagnesemia magnesium sulf /SW: 2 gm, 50 mL, 25 mL/hr, IV, Per Parameter, PRN: Hypomagnesemia magnesium sulf /SW: 4 gm, 10 0 mL, 25 mL/hr, IV, Per Parameter, PRN: Hypomagnesemia morphine 2 mg/mL 1mL Inj: 2 mg, IV Push, q4hr, P RN: Pain Scale (See Comments) nalOXone 0.4 mg/mL 1mL Inj: 0.2 mg, IV Push, q2min, PRN: Respiratory depression ondansetron 2 mg/mL Inj 2mL: 4 mg, IV Push, q4hr, PRN: Nausea / Vomiting 1st Choice oxyCODONE 5 mg Tab Immediate R 5 mg, PO, q6hr, P RN: Pain potassium bicarbonate 20 mEq E 20 mEq, PO, Per P arameter, PRN: Hypokalemia potassium bicarbonate 20 mEq E 40 mEq, PO, Per P arameter, PRN: Hypokalemia potassium Cl / SW Premix: 10 mEq, 100 mL, 100 mL/hr, IV, Per Parameter, PRN: Hypokalemia prochlorperazine 5 mg/mL 2 m L 5 mg, IV Push, q4hr, PRN: Nausea / Vomiting 2nd Choice sodium chloride: 10 mL, IV Push, Per Parameter, PRN: Other (see Comments) temazepam 7.5 mg Cap: 7.5 mg, PO, qHS, PRN: Inso mnia IV Medications NaCl 0.9%: 20 mL/hr, IV, Stop: 12/30/19 11:07:00 MST ., VS/Measurements 24 hr vital signs (All documented values resulted over the prior 24 hours) Low High Last 36.6 37.2 37.2 (12/01 04:10) (12/01 07:00) (12/01 07:00) Temperature PO Temperature PO Temperature PO HR 83 91 83 (12/01 07:00) (11/30 15:00) (12/01 07:00) RR 16 20 18 (12/01 04:10) (11/30 15:00) (12/01 07:00) NIBP 117/71 158/91 144/82 (11/30 20:26) (11/30 08:00) (12/01 07:00) NIBP Mean 95 103 103 (11/30 15:00) (12/01 07:00) (12/01 07:00) Weight (kg) Admit 72.56 (11/27 10:35) Current 73.10 (11/27 21:41) Previous 72.56 (11/27 10:35) Gain/Loss 0.54 Ventilation Low High Last SaO2 95 97 97 (11/30 20:26) (12/01 07:00) (12/01 07:00) == , Last Documented Vital Signs Vital Signs (Most Recent ) Temp PO Heart Rate Resp Rate 37.2 83 18 (12/01 07:00) (12/01 07:00) (12/01 07:00) Non Invasive BP NIBP Mean AdmitWeight CurrentWe ight BMI 144 / 82 103 72.56 73.10 26.02 (12/01 07:00) (12/01 07:00) (11/27 10:35) (11/05 4 21:41) (11/27 21:41) Ventilation SaO2 FiO2 97 21 (12/01 07:00) (11/27 23:20) Review / Management Results Review: 24 hr Labs Labs (All documented values resulted over the p rior 24 hours..) Hematology WBC 9.60 Hgb 9.10L Hct 26.50L Plt 204.00 Chemistry Na 136.00 K 3.60 Cl 104.00 CO2 23.00 Gluc 105.00H Bun 10.00 Cr 0.74 Ca 8.00L Anion Anion Gap 13.00 (12/01 02:44) , Microbiology Studies Recently Resulted [id number] CSF Culture Status: Prelim 11/29/2019 Lumbar Culture Report: No growth at 2 days. [id number] Gram Stain Status: Gram Stain 11/29/2019 Cerebrospinal Fluid Gram Stain: White Blood Cells seen No organisms seen. Culture Report: . Radiology Results Radiologist's interpretation 24hrs Name: SHEA JOSEPH MOR Account: [id number] : 1940 Result Date: Verified By: at : ++++++++++++++++++++++++++++++++++++++++++++++++ +++++++ hospital monitor Electronically Signed By: Kristie Carlisle MD On 12/01/19 10:04 Co Signature By: Modify Signature By: History and Physical Patient: SHEA JOSEPHMAYRA MILLER FUAD 12/01/2019 [facility] Age: 79 years Sex: F : 1940 Active Ins urance: MEDICARE [id number] [facility] Admitting MD: Tito Saunders MD Location: [facility] B3A: B331: 01 PCP: Carol Ruff MD Author: Gaurav Rod DO Subjective still photophobic MUNOZ 11/13 and some parts of day went away no new weakness numbness Review of Systems Constitutional: No fevers, chills, sweats Eye: No recent visual problems ENMT: No ear pain, nasal congestion, sore throa t Respiratory: No shortness of breath, cough Cardiovascular: No Chest pain, palpitations, sy ncope Gastrointestinal: No nausea, vomiting, diarrhea Genitourinary: No hematuria Objective Vitals and Measurements T: 36.9 C (Oral) TMIN: 36.4 C (Oral) TMAX: 36.9 C (Oral) HR: 91 RR: 20 BP: 142/72 SpO2: 97% Oxygen Method: Room air Physical Exam GEN: No acute distress, alert and oriented x 3 HEENT: oropharynx clear, mucous membranes moist NECK: supple, no jugular venous distention CV: regular rate and rhythm, no rubs or gallops PULM: clear to auscultation bilaterally, normal respiratory excursion ABD: soft, nontender, nondi stended, normoactive bowel sounds, no guarding or rebound. 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 recent remote poor attention span and concentration somewhat impai red names repeats fund of knowledge normal less light sensitive No involuntary movements or tremor. F-N intact, no dysmetria no drift no hand rolling asymmetry. Motor: 5/5 proximal and distal upper and lower ext. DTR: 1/4 throughout prox and distal uppers and lowers Sensory : pin to [address] no sensory level intact vibratory at ankles compared to sternum. CN tested serially: PERRLA EOMI facial intact V123 to pin, face symmetric, tongue midline palate symmetric, shoulder shrug 5/5. Hearing intact to finger rub. Cabezas mildly restricted to the right Lab Results Lab Results Common Labs - All Encounters, All Results, Last 1 month Last Month Lipid Profile: Basic Metabolic Panel: Hematology: Triglyceride: ------ Sodium: 136 (11/30/19) Hgb: 9.7 (11/30/19) Cholesterol Total: ------ Potassium: 3.9 (11/30/19) HgbA1C: ------ HDL Cholesterol: ------ Phosphorus: ------ WBC: 11.6 (11/30/19) LDL Ca (11/30/19) M.8 (11/30/19) Plt: 198 (11/30/19) BUN: 11 (11/30/19) INR: 1.46 (11/27/19) Creatinine: 0.80 (11/30/19) Creatinine Clearance: ------ Additional - Last Month %HDL: 28.7 (11/30/19) A/G Ratio: 0.9 (11/30/19) ABS Baso: 0.1 (11/30/19) ABS Eos: 0.2 (11/30/19) ABS Lymph: 0.9 (11/30/19) ABS Macon: 1.1 (11/30/19) ABS Neut: 9.3 (11/30/19) Albumin: 2.4 (11/30/19) Alkphos: 166 (11/30/19) ALT: 22 (11/30/19) Anion Gap: 10 (11/30/19) Appearance: Clear (11/09/19) AST: 45 (11/30/19) Baso.: 0.9 (11/30/19) Bili Total: 0.5 (11/30/19) Blood Glucose, Point of Care: 130 mg/dL () Calcium: 8.1 (11/30/19) CBC Scan: Auto Diff (11/30/19) Chloride: 102 (11/30/19) Chol/Tri.40 (11/30/19) Cholesterol: 115 (11/30/19) Cholesterol/HDL: 3 (11/30/19) CK: 243 (11/28/19) CO2: 28 (11/30/19) Cocci IgG: Negative (11/28/19) Cocci IgM: Negative (11/28/19) Color: Straw (11/09/19) CRP High Sens: 62.34 (11/28/19) CSF Additional Tube Counted: 1 (11/29/19) CSF Color - Spun: No Xantho (11/29/19) CSF Eos: 1 (11/29/19) CSF Glucose: 52 (11/29/19) CSF Lymphs: 0 (11/29/19) CSF Nucleated Count: 114 /uL (11/29/19) CSF Number of Tubes: 4 (11/29/19) CSF Polys.: 99 (11/29/19) CSF Protein: 72 (11/29/19) CSF RBC Count: 49638 /uL (11/29/19) CSF RBC Count, add: 38318 /uL (11/29/19) CSF Slide Comment: See Comment (11/29/19) CSF Source.: Lumbar Puncture (11/29/19) CSF Tube Counted: 3 (11/29/19) CSF Volume: 8.0 (11/29/19) Degmacytes (Bite Cells): 1+ (11/29/19) eGFR Afr/Amer: >60 (11/30/19) eGFR Non- Am: >60 (11/30/19) Eos Abs Man: 0.2 (11/15/19) Eos.: 1.7 (11/30/19) Globulin: 2.6 (11/30/19) Glucose (POCT) Automated: 95 (11/30/19) Glucose Level: 98 (11/30/19) Hct: 29.6 (11/30/19) HDL: 33 (11/30/19) Hepatitis A AB, IgM: Non-Reactive (11/27/19) Hepatitis Bc Ab, IgM: Non-Reactive (11/27/19) Hepatitis Bs Ag: Non-Reactive (11/27/19) Hepatitis C Ab: Non-Reactive (11/27/19) Influenza A, PCR: Negative (11/27/19) Influenza B, PCR: Negative (11/27/19) Lactic Acid: 1.0 (11/29/19) LDL/HDL: 2 (11/30/19) Lymph Abs Man: 0.5 (11/15/19) Lymphs: 7.8 (11/30/19) Man Bands: 2 (11/15/19) Man Eos: 1 (11/15/19) Man Lymphs: 3 (11/15/19) Man Monos: 14 (11/15/19) Man Segs: 80 (11/15/19) MCH: 30.3 (11/30/19) MCHC: 32.7 (11/30/19) MCV: 92.7 (11/30/19) Macon Abs Man: 2.1 (11/15/19) Monos.: 9.7 (11/30/19) Neut Abs Man: 12.5 (11/15/19) Neuts: 79.9 (11/30/19) Plt Est: Adequate (11/29/19) PLT Morph: Normal (11/29/19) Procalcitonin: 0.08 (11/27/19) Protein, Total: 5.0 (11/30/19) PT: 16.6 (11/27/19) PTT: 29.5 (11/27/19) RBC: 3.19 (11/30/19) RBC Morph: See Morphology (11/29/19) RDW: 13.5 (11/30/19) RSV, PCR: Negative (11/27/19) Specific Jasper: 1.008 (11/09/19) Strep A, Rapid Test: Negative (11/27/19) Strep Pneumo Ag, Urine.: Negative (11/29/19) Triglycerides: 82 (11/30/19) Troponin I: 5.99 (11/29/19) UA Squam Epithelial: 0-10 (11/09/19) UBacteria: 1+ (11/09/19) UBilirubin: Negative (11/09/19) UBlood: 1+ (11/09/19) UGlucose: Negative (11/09/19) UKetones: Negative (11/09/19) ULeukocyte Esterase: Negative (11/09/19) UMucous: Rare (11/09/19) UNitrite: Negative (11/09/19) UpH: 6.0 (11/09/19) UProtein: Negative (11/09/19) URBC: 0-4 (11/09/19) Urine Culture if Indicated: Not Indicated ( 03/23) Urine WBCs: 5-10 (11/09/19) VLDL: 16 (11/30/19) Antibiotics Ordered acyclovir: 720 mg, IV, q8hr 11/27/19 17:25 - Ac tive ( 4 days ) Diagnostic Results Radiology - Full Interpretation, Last 24 hrs Name: JOSEPH VALDIVIA Account: [id number] : 1940 Result Date: Verified By: at : +++++++++++++++++++++++++++++++++++++++++++++++ ++++++++ Assessment/Plan 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 Calf pain M79.669 CVA (cerebral vascular accident) I63.9 can re start AC from neuro standpoint Elevated troponin I level R79.89 Gastroenteritis K52.9 Headache R51 CSF WBC count high corrected for 31k rbc prot high poss aseptic meningitis stay on acyclovir for now pending hsv vzv >35 min with HPI exam imagi ng and long discussion with son and patient many many questions discussed test results at length and plan Photophobia of both eyes H53.143 Toe pain, right M79.674 Orders: Culture CSF Herpes Simplex HSV1/2 G/M Rfx CSF [id number] Varicella Zoster (VZV) by PCR [id number] Electronically Signed By: Gaurav Rod DO On 11/30/19 20:04 Co Signature By: Modify Signature By: History and Physical Patient: JOSEPH VALDIVIA MA 11/30/2019 [facility] Age: 79 years Sex: F : 1940 Active Ins urance: MEDICARE [phone] [facility] Admitting MD: Tito Saunders MD Location: [facility] B3A: B331: 01 PCP: Carol Ruff MD Author: Nathalie Landrum Subjective Patient is a 79 year old fe male with PMHx significant for previous stroke and DVT who presented to the ED on 11/27/2019 with complaints of generalized weakness, nausea, vomiting, and diarrhea. Per EMS, her field EKG showed ST elev ations in 2, 3, and aVF. She is currently on Eliquis. EMS administered Aspirin and Zofran with some relief. Patient follows with Dr. Echeverria. She denies chest pain, abdominal p ain, shortness of breath. Up on arrival patient hypertensive 166/97. Labs showed WBC 14.1, PT 16.6, AST 40, Alkphos 258, troponin elevated, influenza negative. CTA chest showed 'No aortic aneurysm or dis section. 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 Additionally, there is moderate narrowing of the SMA at the origin and proximally w ithout jorge alberto stenosis. There are striated appearance the bilateral kidneys which may reflect pyelonephritis. However, underlying infarct could also be of consideration especially on the right side. No f ocal collection identified. Multiple probable infarcts are seen of the spleen which are of indeterminate age but may be chronic. 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 At this time there is no indication for angiography or aggressive treatment. Venous US negative for DVT. Neurology was consulted. Brain MRI showed 'Innumerable acute embolic infarcts most prom inent in the right occipital lobe and bilateral cerebellum, new compared to 11/05/2019. No associated hemorrhage.' Cardiology following. There is no plan for cardiac cath now due to repeat stroke risk. Patient is s/p lumbar puncture on 11/29. Patient seen and examined, case discussed with RN. She is doing better today. Eager to go home. Objective Vitals and Measurements T: 36.7 C (Oral) TMIN: 36.4 C (Oral) TMAX: 36.9 C (Oral) HR: 90 RR: 16 BP: 158/91 SpO2: 96% Oxygen Method: Room air Physical Exam GENERAL: Nontoxic HEENT: Normocephalic NECK: supple, no rigidity. LUNGS: No crackles or wheezes. CV: RRR, normal S1/S2, GI: soft, normoactive bowel sounds : no suprapubic or flank tenderness. BACK: no spinal or paraspinal tenderness EXT: no edema SKIN: warm and dry, no ulcerations. NEURO: Cranial nerves 2-12 grossly intact. Aler t and oriented x2. Lab Results Common Labs - This Encounter, Most Recent, Last 24 hours Last 24 Hours Hematology-CBC 11/30/19 General Chemistry 11/30/19 POC Glucose 11/30/19 WBC:11.6 (H) Sodium: 136 Glucose (POCT) Automated: 95 RBC:3.19 (L) Potassium: 3.9 Hgb:9.7 (L) Chloride: 102 Hct:29.6 (L) CO2: 28 MCV: 92.7 Anion Gap: 10 MCH: 30.3 Glucose Level: 98 MCHC: 32.7 BUN: 11 RDW: 13.5 Creatinine: 0.80 Plt: 198 eGFR Non- Am: >60 Neuts: 79.9 eGFR Afr/Amer: >60 Lymphs:7.8 (L) Calcium:8.1 (L) Monos.: 9.7 M.8 Eos.: 1.7 Protein, Total:5.0 (L) Baso.: 0.9 Albumin:2.4 (L) ABS Neut:9.3 (H) Globulin: 2.6 ABS Lymph: 0.9 A/G Ratio: 0.9 ABS Macon: 1.1 Bili Total: 0.5 ABS Eos: 0.2 ALT: 22 ABS Baso: 0.1 AST:45 (H) CBC Scan: Auto Diff Alkphos:166 (H) Cardiac 11/30/19 Lipid Tests 11/30/19 Spinal Fluids 11/30/19 Troponin I:5.99 (!) Cholesterol: 115 CSF Glucose: 52 Triglycerides: 82 CSF Protein:72 (H) HDL:33 (L) CSF Number of Tubes: 4 LDL: 66 CSF Source.: Lumbar Puncture VLDL: 16 CSF Volume: 8.0 LDL/HDL: 2 CSF Color - Spun: No Xantho Chol/Tri.40 CSF Tube Counted: 3 %HDL: 28.7 CSF Nucleated Count: 114 /uL Cholesterol/HDL: 3 CSF RBC Count: 66689 /uL CSF Polys.:99 (H) CSF Lymphs: 0 CSF Eos:1 (H) CSF Slide Comment: See Comment CSF Additional Tube Counted: 1 CSF RBC Count, add: 42747 /uL Additional Antibiotics Ordered acyclovir: 720 mg, IV, q8hr 11/27/19 17:25 - Ac tive ( 4 days ) Medications - This Encounter, All Results, Last 6 months Scheduled acyclovir: 720 mg, 14.4 mL, 264.4 mL/hr, IV, q8 hr amLODIPine 2.5 mg Tab: 2.5 mg, PO, qDay aspirin 81 mg Chew Tab: 81 mg, PO, Daily atorvastatin 40 mg Tab: 40 mg, PO, qDay ca carb/vit D 500mg rosebud/200 I 1 Tab, PO, BID carvedilol 3.125 mg Tab: 6.25 mg, PO, BID citalopram 10 mg tab: 10 mg, PO, Daily cyanocobalamin 100 mcg Tab: 50 mcg, PO, qDay docusate/senna (50/8.6) mg Tab 2 Tab, PO, qHS enoxaparin 80 mg/0.8 mL Inj: 73.1 mg, SUBCUT, q 12hr famotidine 20 mg Tab: 20 mg, PO, Daily sodium chloride: 10 mL, IV Push, q12hr PRN acetaminophen 325 mg Tab: 650 mg, PO, q4hr, PRN : Pain Mild (1-3) acetaminophen 500 mg Tab: 500 mg, PO, q6hr, PRN : Pain/Temperature albuterol (0.083%) 2.5 mg/3 mL 2.5 mg, 3 mL, NEB - inhalation, q4hr, PRN: Shortness of breath or wheezing hydrALAZINE 20 mg/mL 1mL Inj: 5 mg, IV Push, q4 hr, PRN: Other (see Comments) magnesium oxide 400 mg Tab: 400 mg, PO, Per Par ameter, PRN: Hypomagnesemia magnesium sulf /SW: 2 gm, 5 0 mL, 25 mL/hr, IV, Per Parameter, PRN: Hypomagnesemia magnesium sulf /SW: 4 gm, 1 00 mL, 25 mL/hr, IV, Per Parameter, PRN: Hypomagnesemia morphine 2 mg/mL 1mL Inj: 2 mg, IV Push , q4hr, PRN: Pain Scale (See Comments) nalOXone 0.4 mg/mL 1mL Inj: 0.2 mg, IV Push, q2min, PRN: Respiratory depression ondansetron 2 mg/mL Inj 2mL : 4 mg, IV Push, q4hr, PRN: Nausea / Vomiting 1st Choice oxyCODONE 5 mg Tab Immediate R 5 mg, PO, q6hr, PRN: Pain potassium bicarbonate 20 mEq E 20 mEq, PO, Per Parameter, PRN: Hypokalemia potassium bicarbonate 20 mEq E 40 mEq, PO, Per Parameter, PRN: Hypokalemia potassium Cl / SW Premix: 1 0 mEq, 100 mL, 100 mL/hr, IV, Per Parameter, PRN: Hypokalemia prochlorperazine 5 mg/mL 2 mL 5 mg, IV Push, q4hr, PRN: Nausea / Vomiting 2nd Choice sodium chloride: 10 mL, IV Push, Per Parameter, PRN: Other (see Comments) temazepam 7.5 mg Cap: 7.5 mg, PO, qHS, PRN: Ins omnia IV NaCl 0.9%: 20 mL/hr, IV, Stop: 12/30/19 11:07:0 0 [facility] Diagnostic Results (11/29/2019 08:25 MST MR Brain wo Con) IMPRESSION: 1. Innumerable acute emboli c infarcts most prominent in the right occipital lobe and bilateral cerebellum, new compared to 11/05/2019. No associated hemorrhage. 2. Normal MRI orbits. [1] (11/29/2019 08:25 MST MR Orb/Face/Neck wo Con) IMPRESSION: 1. Innumerable acute emboli c infarcts most prominent in the right occipital lobe and bilateral cerebellum, new compared to 11/05/2019. No associated hemorrhage. 2. Normal MRI orbits. [2] (11/29/2019 14:10 MST XR Lumbar Puncture Diagno stic w Guide) IMPRESSION: Technically successful fluo roscopic guided lumbar puncture without immediate postprocedural complications. [3] Assessment/Plan -Recurrent CVA -R eye blurry vision. -Gastroenteritis -Hx of DVT Plan Neuro following. 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 No associated hemorrhage.' Patient is s/p lumbar puncture 11/29. Follow up LP analysis when available. R eye blurry vision improving. No evidence of DVT on US. C ardiology following. No plan for inpatient cardiac cath due to risk for stroke. Eliquis held for LP, will give full dose Lovenox and resume Eliquis per cardiology recs. On IV acyclovir will discuss with neurology abo ut stopping Continue Statin PT/OT eval She is having diarrhea will check c.diff This document was transcrib ed by yayo Landrum for Provider: Dr. Saunders on 11/30/2019. ITito, have revie wed and agree with all documentation in this transcribed note. [1] MR Brain wo Con; Barbra Calvert E DO 11/05 08:25 MST [2] MR Orb/Face/Neck wo Con; Joshua Calvertie E DO 11/29/2019 08:25 MST [3] XR Lumbar Puncture Diagn ostic w Guide; Otoniel Martin MD 11/29/2019 14:10 MST Electronically Signed By: Tito Saunders MD On 11/30/19 15:25 Co Signature By: Modify Signature By: Nathalie Landrum On 11/30/19 11:39 History and Physical 11/30/2019 [facility] Patient: JOSEPH VALDIVIA ( EV) [facility] Age: 79 years Sex: F : 1940 Associated Diagnoses: None Author: Shiva Echeverria MD Basic Information Date of Service: 11/30/2019 10:54. Admission Information: Admit Days = 3, Patient T ype = Inpatient . Impression and Plan Diagnosis SUBJECTIVE: F/u +Trop: denies CP, SOB Overall feeling improved ROS: no abd pain, hematochezia, vomiting, hemat uria OBJECTIVE: NAD CTAB RRR no m/r/g SOFT NT/ND No c/c/e Tele: SR IMPRESSION: 1. +Troponin, unclear if nstemi vs demand 2. Innumerable multifocal CV As, unclear why she is having recurrence despite being on Eliquis 3. Recent 2 admissions for m ultifocal CVA, on Eliquis, known PFO; AMBER unremarkable 4. LLE DVT s/p IVC filter while at Acute [facility] 5. S/p LP PLAN: 1. asa/statin/coreg 2. pls resume Eliquis if ok w/Neurology 3. no plan for inpt cath > will do oupt stress a nd address from there 4. d/c per IM . Health Status Intake and Output 24 hour I&O data 24hr I&O Intake Output Balance Yesterday: 1029.05 0.00 1029.05 Today: 10.00 0.00 10.00 Allergies: Allergic Reactions (All) NKA Current medications: Antibiotic Info Ordered acyclovir: 720 mg, IV, q8hr 11/27/19 17:25 - Ac tive ( 4 days ) , Scheduled acyclovir: 720 mg, 14.4 mL, 264.4 mL/hr, IV, q8h r aspirin 81 mg Chew Tab: 81 mg, PO, Daily atorvastatin 40 mg Tab: 40 mg, PO, qDay ca carb/vit D 500mg rosebud/200 I 1 Tab, PO, BID carvedilol 3.125 mg Tab: 3.125 mg, PO, BID citalopram 10 mg tab: 10 mg, PO, Daily cyanocobalamin 100 mcg Tab: 50 mcg, PO, qDay docusate/senna (50/8.6) mg Tab 2 Tab, PO, qHS famotidine 20 mg Tab: 20 mg, PO, Daily sodium chloride: 10 mL, IV Push, q12hr PRN Meds acetaminophen 325 mg Tab: 650 mg, PO, q4hr, PRN: Pain Mild (1-3) acetaminophen 500 mg Tab: 500 mg, PO, q6hr, PRN: Pain/Temperature albuterol (0.083%) 2.5 mg/3 mL 2.5 mg, 3 mL, NEB - inhalation, q4hr, PRN: Shortness of breath or wheezing hydrALAZINE 20 mg/mL 1mL Inj: 5 mg, IV Push, q4h r, PRN: Other (see Comments) magnesium oxide 400 mg Tab: 400 mg, PO, Per Para meter, PRN: Hypomagnesemia magnesium sulf /SW: 2 gm, 50 mL, 25 mL/hr, IV, Per Parameter, PRN: Hypomagnesemia magnesium sulf /SW: 4 gm, 10 0 mL, 25 mL/hr, IV, Per Parameter, PRN: Hypomagnesemia morphine 2 mg/mL 1mL Inj: 2 mg, IV Push, q4hr, P RN: Pain Scale (See Comments) nalOXone 0.4 mg/mL 1mL Inj: 0.2 mg, IV Push, q2min, PRN: Respiratory depression ondansetron 2 mg/mL Inj 2mL: 4 mg, IV Push, q4hr, PRN: Nausea / Vomiting 1st Choice oxyCODONE 5 mg Tab Immediate R 5 mg, PO, q6hr, P RN: Pain potassium bicarbonate 20 mEq E 20 mEq, PO, Per P arameter, PRN: Hypokalemia potassium bicarbonate 20 mEq E 40 mEq, PO, Per P arameter, PRN: Hypokalemia potassium Cl / SW Premix: 10 mEq, 100 mL, 100 mL/hr, IV, Per Parameter, PRN: Hypokalemia prochlorperazine 5 mg/mL 2 m L 5 mg, IV Push, q4hr, PRN: Nausea / Vomiting 2nd Choice sodium chloride: 10 mL, IV Push, Per Parameter, PRN: Other (see Comments) temazepam 7.5 mg Cap: 7.5 mg, PO, qHS, PRN: Inso mnia ., VS/Measurements 24 hr vital signs (All documented values resulted over the prior 24 hours) Low High Last 36.4 36.9 36.7 (11/30 00:00) (11/30 04:00) (11/30 08:00) Temperature PO Temperature PO Temperature PO HR 84 99 90 (11/29 11:37) (11/29 19:57) (11/30 08:00) RR 16 16 16 (11/30 08:00) (11/29 11:37) (11/30 08:00) NIBP 131/75 158/91 158/91 (11/29 19:57) (11/30 08:00) (11/30 08:00) NIBP Mean 103 105 105 (11/30 00:00) (11/30 04:00) (11/30 04:00) Weight (kg) Admit 72.56 (11/27 10:35) Current 73.10 (11/27 21:41) Previous 72.56 (11/27 10:35) Gain/Loss 0.54 Ventilation Low High Last SaO2 94 96 96 (11/30 04:00) (11/30 08:00) (11/30 08:00) == , Last Documented Vital Signs Vital Signs (Most Recent ) Temp PO Heart Rate Resp Rate 36.7 90 16 (11/30 08:00) (11/30 08:00) (11/30 08:00) Non Invasive BP NIBP Mean AdmitWeight CurrentWe ight BMI 158 / 91 105 72.56 73.10 26.02 (11/30 08:00) (11/30 04:00) (11/27 10:35) (11/05 21:41) (11/27 21:41) Ventilation SaO2 FiO2 96 21 (11/30 08:00) (11/27 23:20) Review / Management Results Review: 24 hr Labs Labs (All documented values resulted over the p rior 24 hours..) Hematology WBC 11.60H Hgb 9.70L Hct 29.60L Plt 198.00 Chemistry Na 136.00 K 3.90 Cl 102.00 CO2 28.00 Gluc 98.00 Bun 11.00 Cr 0.80 Ca 8.10L T Bili 0.50 Enzymes Alkphos 166.00H ALT 22 Trop.I. 5.99C AST 45H Proteins Alb 2.40L (11/30 02:54) Anion Anion Gap 10.00 (11/30 02:54) Lipid Panel Cholesterol 115.00 (11/30 02:54) HDL 33.00 (11/30 02:54) LDL 66.00 (11/30 02:54) Triglycerides 82.00 (11/30 02:54) VLDL 16.00 (11/30 02:54) %HDL 28.70 (11/30 02:54) Chol/Trig 1.40 (11/30 02:54) LDL/HDL 2.00 (11/30 02:54) Cholesterol/HDL 3.00 (11/30 02:54) , Microbiology Studies Recently Resulted [id number] CSF Culture Status: Prelim 11/29/2019 Lumbar Culture Report: No growth at 1 day. [id number] Gram Stain Status: Gram Stain 11/29/2019 Cerebrospinal Fluid Gram Stain: White Blood Cells seen No organisms seen. Culture Report: . Radiology Results Radiologist's interpretation 24hrs Name: JOSEPH VALDIVIA Account: [id number] : 1940 Result Date: 11/29/19 14:10 Verified By: Otoniel Martin MD at 11/29/19 15: 21 Report : XR Lumbar Puncture Diagnostic w Guide IMPRESSION:Technically succe ssful fluoroscopic guided lumbar puncture without immediate postprocedural complications. 11/29/19 15:18 ++++++++++++++++++++++++++++++++++++++++++++++++ +++++++ hospital monitor Electronically Signed By: Shiva Echeverria MD On 11/30/19 10:57 Co Signature By: Modify Signature By: History and Physical Patient: JOSEPH VALDIVIA MA 11/30/2019 [facility] Age: 79 years Sex: F : 1940 Active Insu osman: MEDICARE [phone] [facility] Admitting MD: Rosemary Pepe DO Location: [facility] B3A: B331: 01 PCP: Carol Ruff MD Author: Jg Frye MD SUBJECTIVE: F/u +Trop: denies CP, SOB She's having some forgetfulness LP done today ROS: no abd pain, hematochezia, vomiting, hematu emigdio OBJECTIVE: NAD CTAB RRR no m/r/g SOFT NT/ND No c/c/e Tele: SR Echo: EF appears to be normal Trop: 5---> 9 IMPRESSION: 1. +Troponin, unclear if nstemi vs demand 2. Headache, neck stiffness, lethargy, vomiting, r/o meningitis 3. Recent 2 admissions for m ultifocal CVA, on Eliquis, known PFO; AMBER unremarkable 4. LLE DVT s/p IVC filter while at [facility] PLAN: 1. asa/statin/coreg 2. Eliquis on hold for LP > will give Lovenox to day x2 doses 3. LHC tomorrow. P/R/B explained 4. 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, outpt watchman eval is warranted D/w RN Electronically Signed By: Jg Frye MD On 11/29/19 18:15 Co Signature By: Modify Signature By: History and Physical Patient: JOSEPH VALDIVIA MA 11/30/2019 [facility] Age: 79 years Sex: F : 1940 Active Ins urance: MEDICARE [phone] [facility] Admitting MD: Contreras Pepe DO Location: [facility] B3A: B331: 01 PCP: Carol Ruff MD Author: Kamaljit Pepe DO Subjective Patient states she is feeling 'better' Objective Vitals and Measurements T: 36.6 C (Oral) TMIN: 36.4 C (Oral) TMAX: 36.9 C (Oral) HR: 89 RR: 16 BP: 138/80 SpO2: 95% Oxygen Method: Room air Physical Exam 24hr I&O Intake Output Balance Yesterday: 1753.20 200.00 1553.20 Today: 130.25 0.00 130.25 GEN: nontoxic, no acute distress NECK: supple HEART: RRR LUNGS: breath sounds equal bilateral, non-labor ed GI: soft, nontender, normoactive bowel sounds, no rebound, no guarding EXT: no edema NEURO: no gross motor deficits, non-focal SKIN: warm, no rash tele-->sinus Lab Results Common Labs - All Encounters, All Results, Last 1 month Last Month Basic Metabolic Panel: Hematology: Sodium: 134 (11/29/19) Hgb: 10.1 (11/29/19) Potassium: 3.7 (11/29/19) HgbA1C: ------ Phosphorus: ------ WBC: 12.6 (11/29/19) M.7 (11/29/19) Plt: 198 (11/29/19) BUN: 9 (11/29/19) INR: 1.46 (11/27/19) Creatinine: 0.65 (11/29/19) Creatinine Clearance: ------ Additional - Last Month A/G Ratio: 0.9 (11/29/19) ABS Baso: 0.1 (11/29/19) ABS Eos: 0.2 (11/29/19) ABS Lymph: 0.8 (11/29/19) ABS Macon: 1.1 (11/29/19) ABS Neut: 10.4 (11/29/19) Albumin: 2.6 (11/29/19) Alkphos: 186 (11/29/19) ALT: 25 (11/29/19) Anion Gap: 12 (11/29/19) Appearance: Clear (11/09/19) AST: 44 (11/29/19) Baso.: 0.9 (11/29/19) Bili Total: 0.5 (11/29/19) Blood Glucose, Point of Care: 130 mg/dL () Calcium: 8.0 (11/29/19) CBC Scan: Scan/Morph (11/29/19) Chloride: 100 (11/29/19) CK: 243 (11/28/19) CO2: 26 (11/29/19) Cocci IgG: Negative (11/28/19) Cocci IgM: Negative (11/28/19) Color: Straw (11/09/19) CRP High Sens: 62.34 (11/28/19) CSF Additional Tube Counted: 1 (11/29/19) CSF Color - Spun: No Xantho (11/29/19) CSF Eos: 1 (11/29/19) CSF Glucose: 52 (11/29/19) CSF Lymphs: 0 (11/29/19) CSF Nucleated Count: 114 /uL (11/29/19) CSF Number of Tubes: 4 (11/29/19) CSF Polys.: 99 (11/29/19) CSF Protein: 72 (11/29/19) CSF RBC Count: 99536 /uL (11/29/19) CSF RBC Count, add: 12822 /uL (11/29/19) CSF Slide Comment: See Comment (11/29/19) CSF Source.: Lumbar Puncture (11/29/19) CSF Tube Counted: 3 (11/29/19) CSF Volume: 8.0 (11/29/19) Degmacytes (Bite Cells): 1+ (11/29/19) eGFR Afr/Amer: >60 (11/29/19) eGFR Non- Am: >60 (11/29/19) Eos Abs Man: 0.2 (11/15/19) Eos.: 2.0 (11/29/19) Globulin: 2.8 (11/29/19) Glucose (POCT) Automated: 114 (11/07/19) Glucose Level: 100 (11/29/19) Hct: 30.0 (11/29/19) Hepatitis A AB, IgM: Non-Reactive (11/27/19) Hepatitis Bc Ab, IgM: Non-Reactive (11/27/19) Hepatitis Bs Ag: Non-Reactive (11/27/19) Hepatitis C Ab: Non-Reactive (11/27/19) Influenza A, PCR: Negative (11/27/19) Influenza B, PCR: Negative (11/27/19) Lactic Acid: 1.0 (11/29/19) Lymph Abs Man: 0.5 (11/15/19) Lymphs: 6.2 (11/29/19) Man Bands: 2 (11/15/19) Man Eos: 1 (11/15/19) Man Lymphs: 3 (11/15/19) Man Monos: 14 (11/15/19) Man Segs: 80 (11/15/19) MCH: 30.2 (11/29/19) MCHC: 33.8 (11/29/19) MCV: 89.6 (11/29/19) Macon Abs Man: 2.1 (11/15/19) Monos.: 8.6 (11/29/19) Neut Abs Man: 12.5 (11/15/19) Neuts: 82.3 (11/29/19) Plt Est: Adequate (11/29/19) PLT Morph: Normal (11/29/19) Procalcitonin: 0.08 (11/27/19) Protein, Total: 5.4 (11/29/19) PT: 16.6 (11/27/19) PTT: 29.5 (11/27/19) RBC: 3.35 (11/29/19) RBC Morph: See Morphology (11/29/19) RDW: 13.6 (11/29/19) RSV, PCR: Negative (11/27/19) Specific Jasper: 1.008 (11/09/19) Strep A, Rapid Test: Negative (11/27/19) Troponin I: 9.24 (11/28/19) UA Squam Epithelial: 0-10 (11/09/19) UBacteria: 1+ (11/09/19) UBilirubin: Negative (11/09/19) UBlood: 1+ (11/09/19) UGlucose: Negative (11/09/19) UKetones: Negative (11/09/19) ULeukocyte Esterase: Negative (11/09/19) UMucous: Rare (11/09/19) UNitrite: Negative (11/09/19) UpH: 6.0 (11/09/19) UProtein: Negative (11/09/19) URBC: 0-4 (11/09/19) Urine Culture if Indicated: Not Indicated ( 03/23) Urine WBCs: 5-10 (11/09/19) Antibiotics Ordered acyclovir: 720 mg, IV, q8hr 11/27/19 17:25 - Ac tive ( 3 days ) Medications - This Encounter, All Results, Last 6 months Scheduled acyclovir: 720 mg, 14.4 mL, 264.4 mL/hr, IV, q8 hr apixaban 5 mg Tab: 5 mg, PO, BID aspirin 81 mg Chew Tab: 81 mg, PO, Daily atorvastatin 40 mg Tab: 40 mg, PO, qDay ca carb/vit D 500mg rosebud/200 I 1 Tab, PO, BID carvedilol 3.125 mg Tab: 3.125 mg, PO, BID citalopram 10 mg tab: 10 mg, PO, Daily cyanocobalamin 100 mcg Tab: 50 mcg, PO, qDay docusate/senna (50/8.6) mg Tab 2 Tab, PO, qHS famotidine 20 mg Tab: 20 mg, PO, Daily sodium chloride: 10 mL, IV Push, q12hr PRN acetaminophen 325 mg Tab: 650 mg, PO, q4hr, PRN : Pain Mild (1-3) acetaminophen 500 mg Tab: 500 mg, PO, q6hr, PRN : Pain/Temperature albuterol (0.083%) 2.5 mg/3 mL 2.5 mg, 3 mL, NEB - inhalation, q4hr, PRN: Shortness of breath or wheezing hydrALAZINE 20 mg/mL 1mL Inj: 5 mg, IV Push, q4 hr, PRN: Other (see Comments) magnesium oxide 400 mg Tab: 400 mg, PO, Per Par ameter, PRN: Hypomagnesemia magnesium sulf /SW: 2 gm, 5 0 mL, 25 mL/hr, IV, Per Parameter, PRN: Hypomagnesemia magnesium sulf /SW: 4 gm, 1 00 mL, 25 mL/hr, IV, Per Parameter, PRN: Hypomagnesemia morphine 2 mg/mL 1mL Inj: 2 mg, IV Push , q4hr, PRN: Pain Scale (See Comments) nalOXone 0.4 mg/mL 1mL Inj: 0.2 mg, IV Push, q2min, PRN: Respiratory depression ondansetron 2 mg/mL Inj 2mL : 4 mg, IV Push, q4hr, PRN: Nausea / Vomiting 1st Choice oxyCODONE 5 mg Tab Immediate R 5 mg, PO, q6hr, PRN: Pain potassium bicarbonate 20 mEq E 20 mEq, PO, Per Parameter, PRN: Hypokalemia potassium bicarbonate 20 mEq E 40 mEq, PO, Per Parameter, PRN: Hypokalemia potassium Cl / SW Premix: 1 0 mEq, 100 mL, 100 mL/hr, IV, Per Parameter, PRN: Hypokalemia prochlorperazine 5 mg/mL 2 mL 5 mg, IV Push, q4hr, PRN: Nausea / Vomiting 2nd Choice sodium chloride: 10 mL, IV Push, Per Parameter, PRN: Other (see Comments) temazepam 7.5 mg Cap: 7.5 mg, PO, qHS, PRN: Ins omnia Diagnostic Results Radiology - Full Interpretation, This Encounter Name: JOSEPH VALDIVIA Account: [id number] : 1940 Result Date: 11/29/19 14:10 Verified By: Otoniel Martin MD at 11/29/19 15 :21 Report : XR Lumbar Puncture Diagnostic w Guide EXAM: XR Lumbar Puncture Diagnostic w Guide CLINICAL HISTORY: Headache, light sensitive COMPARISONS: None. FINDINGS: Informed consent was obtain ed from the the patient after discussing procedure, risks, benefits and alternatives. Sterile technique, local an esthesia and fluoroscopic guidance was utilized to place a 22 gauge spinal needle posteriorly at the L3-4 level. Approximately 8 ml of clear CSF fluid is obtained. The patient tolerated proce dure without immediate complications. The fluid sample was sent for laboratory analysis as per request of the ordering physician. Fluoroscopy time: 8 seconds. DAP 121.6 IMPRESSION: Technically successful fluo roscopic guided lumbar puncture without immediate postprocedural complications. 11/29/19 15:18 +++++++++++++++++++++++++++++++++++++++++++++++ ++++++++ Result Date: 11/29/19 08:25 Verified By: Barbra Calvert DO at 11/29/19 09:02 Report : MR Orb/Face/Neck wo Con EXAM: MR Brain wo Con, MR Orb/Face/Neck wo Con CLINICAL HISTORY: blindness. Acute embolic stro ke. COMPARISON: MRI brain 11/05/2019, CT head 11/13/19 TECHNIQUE: Multiplanar, mul tisequence imaging of the brain was performed without contrast. In addition, multiplanar noncontrast thin section imaging through the orbits was performed. FINDINGS: Innumerable scattered foci restricted diffusion are present, many are new compared to the prior exam throughout the brain. A few of the foci are residual restriction from the prior embolic infarcts fro 11/23/2019. The largest are as of new infarct involves the right occipital lobe (although there are some of the left occipital lobe as well) and patchy areas of restriction within bilateral cerebellar h emispheres. In addition, the re is a new infarct within the right caudate head. There is no associated hemorrhage. Scattered areas of T2 prolo ngation are probably due to chronic small vessel ischemic change and partly due to edema from the infarcts. The rest of the signal within the brain parenchyma has a normal ap pearance. The ventricles and sulci are mildly enlarged consistent with volume loss. No evidence of hemorrhage. No abnormal extra-axial fluid collections. Normal-appearing major vascular flow voids. Midline structures are intact. Soft tissues have a normal appearance. Inspissated mucus within the right frontal sinus with mild to moderate mucoperiosteal thickening in the rest the paranasal sinuses. Mastoids are clear. No calvarial lesions are seen. Orbits have a normal symmet jennifer appearance bilaterally. Optic nerves are symmetric. Extraocular muscles have a normal appearance. No evidence of a mass. Normal signal within the globes. IMPRESSION: 1. Innumerable acute emboli c infarcts most prominent in the right occipital lobe and bilateral cerebellum, new compared to 11/05/2019. No associated hemorrhage. 2. Normal MRI orbits. 11/29/19 08:47 +++++++++++++++++++++++++++++++++++++++++++++++ ++++++++ Result Date: 11/29/19 08:25 Verified By: Barbra Calvert DO at 11/29/19 09:02 Report : MR Brain wo Con EXAM: MR Brain wo Con, MR Orb/Face/Neck wo Con CLINICAL HISTORY: blindness. Acute embolic stro ke. COMPARISON: MRI brain 11/05/2019, CT head 11/13/19 TECHNIQUE: Multiplanar, mul tisequence imaging of the brain was performed without contrast. In addition, multiplanar noncontrast thin section imaging through the orbits was performed. FINDINGS: Innumerable scattered foci restricted diffusion are present, many are new compared to the prior exam throughout the brain. A few of the foci are residual restriction from the prior embolic infarcts fro m 11/23/2019. The largest are as of new infarct involves the right occipital lobe (although there are some of the left occipital lobe as well) and patchy areas of restriction within bilateral cerebellar h emispheres. In addition, the re is a new infarct within the right caudate head. There is no associated hemorrhage. Scattered areas of T2 prolo ngation are probably due to chronic small vessel ischemic change and partly due to edema from the infarcts. The rest of the signal within the brain parenchyma has a normal ap pearance. The ventricles and sulci are mildly enlarged consistent with volume loss. No evidence of hemorrhage. No abnormal extra-axial fluid collections. Normal-appearing major vascular flow voids. Midline structures are intact. Soft tissues have a normal appearance. Inspissated mucus within the right frontal sinus with mild to moderate mucoperiosteal thickening in the rest the paranasal sinuses. Mastoids are clear. No calvarial lesions are seen. Orbits have a normal symmet jennifer appearance bilaterally. Optic nerves are symmetric. Extraocular muscles have a normal appearance. No evidence of a mass. Normal signal within the globes. IMPRESSION: 1. Innumerable acute emboli c infarcts most prominent in the right occipital lobe and bilateral cerebellum, new compared to 11/05/2019. No associated hemorrhage. 2. Normal MRI orbits. 11/29/19 08:47 +++++++++++++++++++++++++++++++++++++++++++++++ ++++++++ Result Date: 11/28/19 15:36 Verified By: Jaiv Rangel DO at 11/28/19 16:1 0 Report : US Vasc Dplx Matteo Low Ext Bilat EXAM: US Vasc Dplx Matteo Low Ext Bilat HISTORY: Bilateral leg swelling. COMPARISON: 11/06/2019. TECHNIQUE: Duplex venous ul trasound examination of both lower extremities was performed using color Doppler imaging. Evaluation of flow dynamics, compressibility and augmentation. FINDINGS: Right lower extremity venou s system real-time imaging performed and static images were reviewed. Images demonstrate no filling defects within the common femoral, femoral, saphenofemoral junction, popli teal, peroneal or posterior tibial venous systems. Spontaneous phasic waveforms were demonstrated. Vessels were also compressed. Left lower extremity venous system real-time imaging performed and static images were reviewed. Images demonstrate no filling defects within the common femoral, femoral, saphenofemoral junction, poplit eal, peroneal or posterior t ibial venous systems. Spontaneous phasic waveforms were demonstrated. Vessels were also compressed. IMPRESSION: No evidence of deep venous thrombosis within the bilateral lower extremities. 11/28/19 16:07 +++++++++++++++++++++++++++++++++++++++++++++++ ++++++++ Result Date: 11/28/19 15:35 Verified By: Javi Rangel DO at 11/28/19 16:2 2 Report : US Vasc Dplx Art Low Ext Bilat EXAM: US Vasc Dplx Art Low Ext Bilat HISTORY: Bilateral leg/calf pain. COMPARISON: None. TECHNIQUE: Sonographic asse ssment of the arterial system right and left lower extremity performed using connelly scale, duplex and color Doppler imaging. FINDINGS: Mild scattered bilateral arterial atherotic nilo cifications noted. RIGHT LEG: Common femoral artery = 82 cm/sec, triphasic wa veform Origin profunda femoris artery = 17 cm/sec, mon ophasic Proximal femoral artery = 54 cm/sec, triphasic Mid femoral artery = 62 cm/sec, triphasic Distal femoral artery = 70 cm/sec, triphasic Popliteal artery = 60 cm/sec, triphasic Posterior tibial artery = 25 cm/sec, monophasic Dorsalis pedis artery = 38 cm/sec, monophasic LEFT LEG: Common femoral artery = 73 cm/sec, triphasic wa veform Origin profunda femoris artery = 29 cm/sec, tri phasic Proximal femoral artery = 87 cm/sec, triphasic Mid femoral artery = 80 cm/sec, triphasic Distal femoral artery = 57 cm/sec, triphasic Popliteal artery = 66 cm/sec, monophasic Posterior tibial artery = 15 cm/sec, monophasic Dorsalis pedis artery = 18 cm/sec, monophasic IMPRESSION: Arterial findings compatibl e with bilateral mild peripheral arterial disease. No evidence of high-grade stenosis or occlusion. 11/28/19 16:18 +++++++++++++++++++++++++++++++++++++++++++++++ ++++++++ Result Date: 11/28/19 13:56 Verified By: Otoniel Martin MD at 11/28/19 15 :53 Report : CT Abdomen+Pelvis w IV Con EXAM: CT Abdomen+Pelvis w IV Con CLINICAL HISTORY: All quadrant abdominal pain w ith nausea and vomiting. COMPARISON: CT abdomen pelvis 11/27/2019 TECHNIQUE: CT of the abdome n and pelvis with IV contrast. 100 ml Isovue 370 IV was administered. Transaxial images were obtained from the lung bases through the pubic symphysis with reformatted images in the coronal and sagittal plane. All CT scans at this hospital employ automatic and/or manual dose reduction techniques to keep radiation dose as low as reasonably achievable. 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 This appears overall stable in size. There is mild ascites seen within the peritoneal cavity more pronounced at the pelvis. No free intraperitoneal air. Infrarenal IVC filter again seen in place. The appears of the kidneys is overall stable with several triangular and striated areas of hypoattenuation similar to the prior exam. Again differential considerations includes bilateral changes of roxie lonephritis versus sequela o f bilateral renal infarcts. No perinephric mass- producing collections are seen. The rest of the kidneys appear otherwise unremarkable with normal enhancement. No hydronephrosis in bilaterally. No abdominal aortic aneurys m. Atherosclerosis again seen. The SMA appears patent. The liver appears unremarka ble and stable. Portal vein appears patent. Spleen again demonstrates several peripheral hypodensities consistent with areas of hypoattenuation. Again this could represent fo nilo splenic infarcts, howeve r underlying infiltrative lesions cannot be excluded. The stomach is decompressed limiting its evaluation. Pancreas appears grossly unremarkable. Adrenal glands appear grossly unremarkable. Gallbladder appears unremarkable. No hydronephrosis in bilaterall y. The bladder is partially decompressed limiting its evaluation. Bladder wall thickening is seen which could be artifactual or suggestive of cystitis or other mucosal abnormality. No jorge alberto lymphadenopa thy appreciated. Adrenal glands appear unremarka ble. The appendix appears within normal limits. No CT evidence of appendicitis. Portions of the left splenic flexure and the left descending colon demonstrates areas of underlying mucosal thickening which c ould be suggestive of nonspe cific colitis. Similar findings are seen also within the sigmoid colon as well as the rectosigmoid. No focal osseous aggressive lesions. Small bowel loops appear unremarkable with no inflammatory nor obstructive changes. N o abdominal aortic aneurysm. IMPRESSION: 1. Redemonstration of large ovarian complex cystic lesion which appears overall stable in size measuring up to 12 x 11 cm. This is indeterminate and a malignancy cannot be excluded. 2. Changes of nonspecific c olitis are seen about the left colon and sigmoid colon down to the rectosigmoid. Mild ascites. 3. Stable abnormal appearan ce of the kidneys without evidence of hydronephrosis. Differential considerations again include the sequela of pyelonephritis versus bilateral renal infarcts. 4. Appendix appears within normal limits. No CT evidence of appendicitis. 5.Other findings as detailed above. 11/28/19 15 :36 +++++++++++++++++++++++++++++++++++++++++++++++ ++++++++ Result Date: 11/27/19 19:46 Verified By: Nelson Hurt MD at 11/27/19 20:10 Report : CT Angio Abdomen+Pelvis w Con Exam: CTA Abdomen and pelvis with IV contrast. INDICATION: abdominal pain right lower quadrant left lower quadrant abdominal pain distention claudication to the lower extremities. COMPARISON: No TECHNIQUE: Axial images acq uired from of the abdomen and pelvis following 100ml [id number] cc Isovue 370 intravenous contrast with sagittal and coronal reconstruction imaging. 3-D multirotational MIP recon struction imaging performed of the aortic vasculature, generated at a separate workstation by technologist. All CT scans at this hospital employ automatic and/or manual dose reduction techniques to keep radiation dose as low as reasonably achievable. FINDINGS: The abdominal aor ta is normal in caliber and contour with moderate atherosclerotic calcifications. No underlying dissection is demonstrated. The aortic bifurcation is normal in caliber withou t underlying stenosis. 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 The celiac artery branch vessels appear grossly patent. The SMA demonstrates coarse calcifications withou t significant stenosis. The SMA branch vessels appear grossly patent throughout. The KAROLINA appears to be moderately narrowed at its origin but otherwise appears grossly unremarkable. The bilateral renal a rteries appear to be grossly patent with mild to mild atherosclerotic calcifications. Mild peribronchial thickeni ng noted within the bilateral lower lobes which could be chronic in nature with diffuse interlobular septal thickening as well as underlying emphysematous changes. The liver appears grossly u nremarkable. As a part from slightly nodular appearance. Gallbladder is unremarkable as well. There is a focal low- attenuation lesion at the lower pole of the spleen which de monstrates wedge-shaped appe arance with preservation of the capsule which may represent prior infarct. Additional areas of decreased attenuation seen at the upper pole likely related to additional areas of infarcts probable scarri ng related to the inferior pole of the spleen. Mild thickening of bilateral adrenal glands. There is decreased attenuation the right kidney with moderate surrounding fat stra nding. Striated appearance t he bilateral kidneys with more wedge-shaped appearance of decreased attenuation the right kidney which may be related to pyelonephritis without jorge alberto focal collection. Especi ally on the left. However, u nderlying infarct could also be of consideration no hydronephrosis is demonstrated. No structural caval left renal vein noted. The IVC filter is seen with low the renal veins in place. There are bladder appears to be mildly thickened anteriorly. Trace free fluid within the pelvis. Mild colonic diverticulosis is noted without evidence for diverticulitis. Mild thickening of t he transverse colon as well as the right colon is noted. The appendix is unremarkable. 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 The uterus is surgically absent. There is a dense lesion seen within a small bowel loop within the midabdomen at the midline which appears to be somewhat stable on delayed imaging seen in the loop further beyond and may be related to enteric material. Rather than hemorrhage. The visualized osseous stru ctures demonstrate mild diffuse osteopenia. There is slight heterogeneity of the bones. Which could be due to osteopenia. However, infiltrating process cannot be entirely excluded. IMPRESSION: No aortic aneurysm or disse ction. 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 Additionally, there is moderate narrowing of the SMA at t he origin and proximally without jorge alberto stenosis. There are striated appearan ce the bilateral kidneys which may reflect pyelonephritis. However, underlying infarct could also be of consideration especially on the right side. No focal collection identi fied. 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 11/27/19 19:54 +++++++++++++++++++++++++++++++++++++++++++++++ ++++++++ Result Date: 11/27/19 13:34 Verified By: Osbaldo Everett DO at 11/28/19 09:11 Report : XR Foot 3+ Views Rt EXAM: XR Foot 3+ Views Rt CLINICAL HISTORY: toe pain TECHNIQUE: 3 views of the right foot COMPARISON: None FINDINGS: No acute fracture or sublux ation. Congruent forefoot and midfoot junction is noted. Cystic change at the base o f the second metatarsal. Degenerative changes throughout the right foot are noted. Prominent plantar calcaneal spur. No significant soft tissue swelling is seen. IMPRESSION: Degenerative changes. No acute fracture or subl uxation. 11/28/19 09:10 +++++++++++++++++++++++++++++++++++++++++++++++ ++++++++ Result Date: 11/27/19 11:21 Verified By: Osbaldo Everett DO at 11/27/19 14:45 Report : XR Chest 1 View Portable EXAM: XR Chest 1 View Portable INDICATION: Atypical Chest Pain TECHNIQUE: Single projection of the chest. COMPARISON: CT 11/04/2019 FINDINGS: The heart size is normal. The hilar shadows are normal Lungs show no consolidation or effusion 1.8 cm nodular density in the left lower lung i s noted Hemidiaphragms are unremark able. Costophrenic angles are sharp. Osseous structures show no acute abnormalities. IMPRESSION: Nodular density in the left lower lung measuring 1.5 cm. Findings are present on prior CT from 11/04/2019. Continued follow-up is recommended. 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 Calf pain M79.669 CVA (cerebral vascular accident) I63.9 Elevated troponin I level R79.89 Gastroenteritis K52.9 Headache R51 Photophobia of both eyes H53.143 Toe pain, right M79.674 -resume Eliquis this evening -- d.w Neurology -IV Acyclovir for now -- f/u on LP analysis whe n available -add low dose ASA to already maximized regime -patient to f/u cardiology regarding any furthe r interventions (Watchman) -PT/OT -anticipate able to dispo to ecf ~ 24-48 hours Electronically Signed By: Kamaljit Pepe DO On 11/29/19 16:36 Co Signature By: Modify Signature By: History and Physical Patient: JOSEPH VALDIVIA MA 11/29/2019 [facility] Age: 79 years Sex: F : 1940 Active Ins urance: MEDICARE [phone] Admitting MD: Contreras Pepe DO Location: [facility] B3A: B331: 01 PCP: Carol Ruff MD Author: Gaurav Rod DO Subjective Patient says she is feeling much better than when she was first noted headache is there but low-grade 2 out of 10 no new weakness sensory loss vision problems are noted photophobia is about the same LP was just completed Review of Systems Constitutional: No fevers, chills, sweats Eye: No recent visual problems ENMT: No ear pain, nasal congestion, sore throa t Respiratory: No shortness of breath, cough Cardiovascular: No Chest pain, palpitations, sy ncope Gastrointestinal: No nausea, vomiting, diarrhea Genitourinary: No hematuria Objective Vitals and Measurements T: 36.9 C (Oral) TMIN: 36.4 C (Oral) TMAX: 36.9 C (Oral) HR: 84 RR: 16 BP: 138/84 SpO2: 96% Oxygen Method: Room air Physical Exam GEN: No acute distress, alert and oriented x 3 HEENT: oropharynx clear, mucous membranes moist NECK: supple, no jugular venous distention CV: regular rate and rhythm, no rubs or gallops PULM: clear to auscultation bilaterally, normal respiratory excursion ABD: soft, nontender, nondi stended, normoactive bowel sounds, no guarding or rebound. 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 recent remote poor attention span and concentration somewhat impai red names repeats fund of knowledge normal less light sensitive No involuntary movements or tremor. F-N intact, no dysmetria no drift no hand rolling asymmetry. Motor: 5/5 proximal and distal upper and lower ext. DTR: 1/4 throughout prox and distal uppers and lowers Sensory : pin to [address] no sensory level intact vibratory at ankles compared to sternum. CN tested serially: PERRLA EOMI facial intact V123 to pin, face symmetric, tongue midline palate symmetric, shoulder shrug 5/5. Hearing intact to finger rub. Cabezas mildly restricted to the right Lab Results Common Labs - All Encounters, All Results, Last 1 month Last Month Basic Metabolic Panel: Hematology: Sodium: 134 (11/29/19) Hgb: 10.1 (11/29/19) Potassium: 3.7 (11/29/19) HgbA1C: ------ Phosphorus: ------ WBC: 12.6 (11/29/19) M.7 (11/29/19) Plt: 198 (11/29/19) BUN: 9 (11/29/19) INR: 1.46 (11/27/19) Creatinine: 0.65 (11/29/19) Creatinine Clearance: ------ Additional - Last Month A/G Ratio: 0.9 (11/29/19) ABS Baso: 0.1 (11/29/19) ABS Eos: 0.2 (11/29/19) ABS Lymph: 0.8 (11/29/19) ABS [place]: 1.1 (11/29/19) ABS Neut: 10.4 (11/29/19) Albumin: 2.6 (11/29/19) Alkphos: 186 (11/29/19) ALT: 25 (11/29/19) Anion Gap: 12 (11/29/19) Appearance: Clear (11/09/19) AST: 44 (11/29/19) Baso.: 0.9 (11/29/19) Bili Total: 0.5 (11/29/19) Blood Glucose, Point of Care: 130 mg/dL () Calcium: 8.0 (11/29/19) CBC Scan: Scan/Morph (11/29/19) Chloride: 100 (11/29/19) CK: 243 (11/28/19) CO2: 26 (11/29/19) Cocci IgG: Negative (11/28/19) Cocci IgM: Negative (11/28/19) Color: Straw (11/09/19) CRP High Sens: 62.34 (11/28/19) CSF Glucose: 52 (11/29/19) CSF Protein: 72 (11/29/19) Degmacytes (Bite Cells): 1+ (11/29/19) eGFR Afr/Amer: >60 (11/29/19) eGFR Non- Am: >60 (11/29/19) Eos Abs Man: 0.2 (11/15/19) Eos.: 2.0 (11/29/19) Globulin: 2.8 (11/29/19) Glucose (POCT) Automated: 114 (11/07/19) Glucose Level: 100 (11/29/19) Hct: 30.0 (11/29/19) Hepatitis A AB, IgM: Non-Reactive (11/27/19) Hepatitis Bc Ab, IgM: Non-Reactive (11/27/19) Hepatitis Bs Ag: Non-Reactive (11/27/19) Hepatitis C Ab: Non-Reactive (11/27/19) Influenza A, PCR: Negative (11/27/19) Influenza B, PCR: Negative (11/27/19) Lactic Acid: 1.0 (11/29/19) Lymph Abs Man: 0.5 (11/15/19) Lymphs: 6.2 (11/29/19) Man Bands: 2 (11/15/19) Man Eos: 1 (11/15/19) Man Lymphs: 3 (11/15/19) Man Monos: 14 (11/15/19) Man Segs: 80 (11/15/19) MCH: 30.2 (11/29/19) MCHC: 33.8 (11/29/19) MCV: 89.6 (11/29/19) [place] Abs Man: 2.1 (11/15/19) Monos.: 8.6 (11/29/19) Neut Abs Man: 12.5 (11/15/19) Neuts: 82.3 (11/29/19) Plt Est: Adequate (11/29/19) PLT Morph: Normal (11/29/19) Procalcitonin: 0.08 (11/27/19) Protein, Total: 5.4 (11/29/19) PT: 16.6 (11/27/19) PTT: 29.5 (11/27/19) RBC: 3.35 (11/29/19) RBC Morph: See Morphology (11/29/19) RDW: 13.6 (11/29/19) RSV, PCR: Negative (11/27/19) Specific Jasper: 1.008 (11/09/19) Strep A, Rapid Test: Negative (11/27/19) Troponin I: 9.24 (11/28/19) UA Squam Epithelial: 0-10 (11/09/19) UBacteria: 1+ (11/09/19) UBilirubin: Negative (11/09/19) UBlood: 1+ (11/09/19) UGlucose: Negative (11/09/19) UKetones: Negative (11/09/19) ULeukocyte Esterase: Negative (11/09/19) UMucous: Rare (11/09/19) UNitrite: Negative (11/09/19) UpH: 6.0 (11/09/19) UProtein: Negative (11/09/19) URBC: 0-4 (11/09/19) Urine Culture if Indicated: Not Indicated ( 03/23) Urine WBCs: 5-10 (11/09/19) Antibiotics Ordered acyclovir: 720 mg, IV, q8hr 11/27/19 17:25 - Ac tive ( 3 days ) Diagnostic Results Radiology - Full Interpretation, Last 24 hrs Name: JOSEPH VALDIVIA Account: [id number] : 1940 Result Date: 11/29/19 08:25 Verified By: Barbra Calvert DO at 11/29/19 09:02 Report : MR Orb/Face/Neck wo Con EXAM: MR Brain wo Con, MR Orb/Face/Neck wo Con CLINICAL HISTORY: blindness. Acute embolic stro ke. COMPARISON: MRI brain 11/05/2019, CT head 11/13/19 TECHNIQUE: Multiplanar, mul tisequence imaging of the brain was performed without contrast. In addition, multiplanar noncontrast thin section imaging through the orbits was performed. FINDINGS: Innumerable scattered foci restricted diffusion are present, many are new compared to the prior exam throughout the brain. A few of the foci are residual restriction from the prior embolic infarcts fro m 11/23/2019. The largest are as of new infarct involves the right occipital lobe (although there are some of the left occipital lobe as well) and patchy areas of restriction within bilateral cerebellar h emispheres. In addition, the re is a new infarct within the right caudate head. There is no associated hemorrhage. Scattered areas of T2 prolo ngation are probably due to chronic small vessel ischemic change and partly due to edema from the infarcts. The rest of the signal within the brain parenchyma has a normal ap pearance. The ventricles and sulci are mildly enlarged consistent with volume loss. No evidence of hemorrhage. No abnormal extra-axial fluid collections. Normal-appearing major vascular flow voids. Midline structures are intact. Soft tissues have a normal appearance. Inspissated mucus within the right frontal sinus with mild to moderate mucoperiosteal thickening in the rest the paranasal sinuses. Mastoids are clear. No calvarial lesions are seen. Orbits have a normal symmet jennifer appearance bilaterally. Optic nerves are symmetric. Extraocular muscles have a normal appearance. No evidence of a mass. Normal signal within the globes. IMPRESSION: 1. Innumerable acute emboli c infarcts most prominent in the right occipital lobe and bilateral cerebellum, new compared to 11/05/2019. No associated hemorrhage. 2. Normal MRI orbits. 11/29/19 08:47 +++++++++++++++++++++++++++++++++++++++++++++++ ++++++++ Result Date: 11/29/19 08:25 Verified By: Barbra Calvert DO at 11/29/19 09:02 Report : MR Brain wo Con EXAM: MR Brain wo Con, MR Orb/Face/Neck wo Con CLINICAL HISTORY: blindness. Acute embolic stro ke. COMPARISON: MRI brain 11/05/2019, CT head 11/13/19 TECHNIQUE: Multiplanar, mul tisequence imaging of the brain was performed without contrast. In addition, multiplanar noncontrast thin section imaging through the orbits was performed. FINDINGS: Innumerable scattered foci restricted diffusion are present, many are new compared to the prior exam throughout the brain. A few of the foci are residual restriction from the prior embolic infarcts fro m 11/23/2019. The largest are as of new infarct involves the right occipital lobe (although there are some of the left occipital lobe as well) and patchy areas of restriction within bilateral cerebellar h emispheres. In addition, the re is a new infarct within the right caudate head. There is no associated hemorrhage. Scattered areas of T2 prolo ngation are probably due to chronic small vessel ischemic change and partly due to edema from the infarcts. The rest of the signal within the brain parenchyma has a normal ap pearance. The ventricles and sulci are mildly enlarged consistent with volume loss. No evidence of hemorrhage. No abnormal extra-axial fluid collections. Normal-appearing major vascular flow voids. Midline structures are intact. Soft tissues have a normal appearance. Inspissated mucus within the right frontal sinus with mild to moderate mucoperiosteal thickening in the rest the paranasal sinuses. Mastoids are clear. No calvarial lesions are seen. Orbits have a normal symmet jennifer appearance bilaterally. Optic nerves are symmetric. Extraocular muscles have a normal appearance. No evidence of a mass. Normal signal within the globes. IMPRESSION: 1. Innumerable acute emboli c infarcts most prominent in the right occipital lobe and bilateral cerebellum, new compared to 11/05/2019. No associated hemorrhage. 2. Normal MRI orbits. 11/29/19 08:47 +++++++++++++++++++++++++++++++++++++++++++++++ ++++++++ Result Date: 11/28/19 15:36 Verified By: Javi Rangel DO at 11/28/19 16:1 0 Report : US Vasc Dplx Matteo Low Ext Bilat EXAM: US Vasc Dplx Matteo Low Ext Bilat HISTORY: Bilateral leg swelling. COMPARISON: 11/06/2019. TECHNIQUE: Duplex venous ul trasound examination of both lower extremities was performed using color Doppler imaging. Evaluation of flow dynamics, compressibility and augmentation. FINDINGS: Right lower extremity venou s system real-time imaging performed and static images were reviewed. Images demonstrate no filling defects within the common femoral, femoral, saphenofemoral junction, popli teal, peroneal or posterior tibial venous systems. Spontaneous phasic waveforms were demonstrated. Vessels were also compressed. Left lower extremity venous system real-time imaging performed and static images were reviewed. Images demonstrate no filling defects within the common femoral, femoral, saphenofemoral junction, poplit eal, peroneal or posterior t ibial venous systems. Spontaneous phasic waveforms were demonstrated. Vessels were also compressed. IMPRESSION: No evidence of deep venous thrombosis within the bilateral lower extremities. 11/28/19 16:07 +++++++++++++++++++++++++++++++++++++++++++++++ ++++++++ Result Date: 11/28/19 15:35 Verified By: Javi Rangel DO at 11/28/19 16:2 2 Report : US Vasc Dplx Art Low Ext Bilat EXAM: US Vasc Dplx Art Low Ext Bilat HISTORY: Bilateral leg/calf pain. COMPARISON: None. TECHNIQUE: Sonographic asse ssment of the arterial system right and left lower extremity performed using connelly scale, duplex and color Doppler imaging. FINDINGS: Mild scattered bilateral arterial atherotic nilo cifications noted. RIGHT LEG: Common femoral artery = 82 cm/sec, triphasic wa veform Origin profunda femoris artery = 17 cm/sec, mon ophasic Proximal femoral artery = 54 cm/sec, triphasic Mid femoral artery = 62 cm/sec, triphasic Distal femoral artery = 70 cm/sec, triphasic Popliteal artery = 60 cm/sec, triphasic Posterior tibial artery = 25 cm/sec, monophasic Dorsalis pedis artery = 38 cm/sec, monophasic LEFT LEG: Common femoral artery = 73 cm/sec, triphasic wa veform Origin profunda femoris artery = 29 cm/sec, tri phasic Proximal femoral artery = 87 cm/sec, triphasic Mid femoral artery = 80 cm/sec, triphasic Distal femoral artery = 57 cm/sec, triphasic Popliteal artery = 66 cm/sec, monophasic Posterior tibial artery = 15 cm/sec, monophasic Dorsalis pedis artery = 18 cm/sec, monophasic IMPRESSION: Arterial findings compatibl e with bilateral mild peripheral arterial disease. No evidence of high-grade stenosis or occlusion. 11/28/19 16:18 +++++++++++++++++++++++++++++++++++++++++++++++ ++++++++ Result Date: 11/28/19 13:56 Verified By: Otoniel Martin MD at 11/28/19 15 :53 Report : CT Abdomen+Pelvis w IV Con EXAM: CT Abdomen+Pelvis w IV Con CLINICAL HISTORY: All quadrant abdominal pain w ith nausea and vomiting. COMPARISON: CT abdomen pelvis 11/27/2019 TECHNIQUE: CT of the abdome n and pelvis with IV contrast. 100 ml Isovue 370 IV was administered. Transaxial images were obtained from the lung bases through the pubic symphysis with reformatted images in the coronal and sagittal plane. All CT scans at this hospital employ automatic and/or manual dose reduction techniques to keep radiation dose as low as reasonably achievable. 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 This appears overall stable in size. There is mild ascites seen within the peritoneal cavity more pronounced at the pelvis. No free intraperitoneal air. Infrarenal IVC filter again seen in place. The appears of the kidneys is overall stable with several triangular and striated areas of hypoattenuation similar to the prior exam. Again differential considerations includes bilateral changes of roxie lonephritis versus sequela o f bilateral renal infarcts. No perinephric mass- producing collections are seen. The rest of the kidneys appear otherwise unremarkable with normal enhancement. No hydronephrosis in bilaterally. No abdominal aortic aneurys m. Atherosclerosis again seen. The SMA appears patent. The liver appears unremarka ble and stable. Portal vein appears patent. Spleen again demonstrates several peripheral hypodensities consistent with areas of hypoattenuation. Again this could represent fo nilo splenic infarcts, howeve r underlying infiltrative lesions cannot be excluded. The stomach is decompressed limiting its evaluation. Pancreas appears grossly unremarkable. Adrenal glands appear grossly unremarkable. Gallbladder appears unremarkable. No hydronephrosis in bilaterall y. The bladder is partially decompressed limiting its evaluation. Bladder wall thickening is seen which could be artifactual or suggestive of cystitis or other mucosal abnormality. No jorge alberto lymphadenopa thy appreciated. Adrenal glands appear unremarka ble. The appendix appears within normal limits. No CT evidence of appendicitis. Portions of the left splenic flexure and the left descending colon demonstrates areas of underlying mucosal thickening which c ould be suggestive of nonspe cific colitis. Similar findings are seen also within the sigmoid colon as well as the rectosigmoid. No focal osseous aggressive lesions. Small bowel loops appear unremarkable with no inflammatory nor obstructive changes. N o abdominal aortic aneurysm. IMPRESSION: 1. Redemonstration of large ovarian complex cystic lesion which appears overall stable in size measuring up to 12 x 11 cm. This is indeterminate and a malignancy cannot be excluded. 2. Changes of nonspecific c olitis are seen about the left colon and sigmoid colon down to the rectosigmoid. Mild ascites. 3. Stable abnormal appearan ce of the kidneys without evidence of hydronephrosis. Differential considerations again include the sequela of pyelonephritis versus bilateral renal infarcts. 4. Appendix appears within normal limits. No CT evidence of appendicitis. 5.Other findings as detailed above. 11/28/19 15 :36 +++++++++++++++++++++++++++++++++++++++++++++++ ++++++++ Assessment/Plan 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 Calf pain M79.669 CVA (cerebral vascular accident) I63.9 Acute CVA innumerable more than 20 punctate cardioembolic in nature essentially 0 at this point Patient is already maximall y medically managed high intensity statin anticoagulation we discussed adding aspirin although there is no good solid study to give this indication we discussed increased bleed risk Versus staying on what she is on she was agreeable to adding a low-dose baby aspirin Blood pressure recommendations less than 140/90 is a goal Likely rehab will be needed CSF is pending >25 min with HPI exam imaging called son pepe at listed number no answer Elevated troponin I level R79.89 Gastroenteritis K52.9 Headache R51 Photophobia of both eyes H53.143 Toe pain, right M79.674 Orders: aspirin, 81 mg, PO, Tab, Chew, Daily Routine, S tart: 11/29/19 14:30:00 MST Acute Ischemic Stroke Guidelines Reference Text Assistant Professor Of 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 Consult to Acute Rehab Consult to Case Management DVT/VTE reference text EV Skin and Wound Care Protocol Fingerstick Blood Sugar Lipid Panel Neurological Check NIHSS Evaluation Notify MD if Notify MD if Notify MD if Notify MD if Notify MD if Notify 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 Out of Bed Sequential Compression Device Stroke Education Stroke Quality Measures Swallow Screen, nursing at bedside Video Education: Stroke and TIA Vital Signs Electronically Signed By: Gaurav Rod DO On 11/29/19 14:34 Co Signature By: Modify Signature By: History and Physical Patient: JOSEPH VALDIVIA MA 11/28/2019 [facility] Age: 79 years Sex: F : 1940 Active Ins urance: MEDICARE [phone] [facility] Admitting MD: Contreras Pepe DO Location: [facility] B3A: B331: 01 PCP: Carol Ruff MD Author: Kamaljit Pepe DO Subjective Patient resting in bed -- no complaints today. Objective Vitals and Measurements T: 36.8 C (Oral) TMIN: 36.6 C (Oral) TMAX: 36.9 C (Oral) HR: 98 RR: 18 BP: 138/76 SpO2: 95% Oxygen Method: Room air WT: 73.1 kg Physical Exam 24hr I&O Intake Output Balance Yesterday: 730.96 300.00 430.96 Today: 10 200.00 -190.00 GEN: nontoxic, no acute distress NECK: supple HEART: RRR LUNGS: breath sounds equal bilateral, non-labor ed GI: soft, nontender, normoactive bowel sounds, no rebound, no guarding EXT: no edema NEURO: no gross motor deficits, non-focal SKIN: warm, no rash tele-->sinus Lab Results Common Labs - This Encounter, Most Recent, Last 24 hours Last 24 Hours Hematology-CBC 11/28/19 General Chemistry 11/28/19 Cardiac 02/25/20 WBC:14.2 (H) Sodium: 135 CK:243 (H) RBC:3.36 (L) Potassium: 3.6 CRP High Sens:62.34 (H) Hgb:10.1 (L) Chloride: 101 Troponin I:9.24 (!) Hct:30.5 (L) CO2: 23 MCV: 90.7 Anion Gap: 15 MCH: 30.0 Glucose Level:100 (H) MCHC: 33.1 BUN:9 (L) RDW: 13.5 Creatinine: 0.64 Plt: 211 eGFR Non- Am: >60 Neuts:84.9 (H) eGFR Afr/Amer: >60 Lymphs:4.9 (L) Calcium:8.0 (L) Monos.: 8.7 M.7 Eos.: 0.7 Protein, Total:5.5 (L) Baso.: 0.8 Albumin:2.6 (L) ABS Neut:12.0 (H) Globulin: 2.9 ABS Lymph: 0.7 A/G Ratio: 0.9 ABS [place]: 1.2 Bili Total: 0.5 ABS Eos: 0.1 ALT: 28 ABS Baso: 0.1 AST:64 (H) CBC Scan: Auto Diff Alkphos:204 (H) Lactic Acid: 1.0 Special Chemistry Other 11/28/19 Serology/Immunology 11/28/19 Microbiology/Serology 11/28/19 Procalcitonin: 0.08 Hepatitis A AB, IgM: Non-Reactive Influenza A, PCR: Negative Hepatitis Bc Ab, IgM: Non-Reactive Influenza B, PCR: Negative Hepatitis Bs Ag: Non-Reactive RSV, PCR: Negative Hepatitis C Ab: Non-Reactive Strep A, Rapid Test: Negative Cocci IgG: Negative Cocci IgM: Negative Additional Antibiotics Ordered acyclovir: 720 mg, IV, q8hr 11/27/19 17:25 - Ac tive ( 2 days ) Medications - This Encounter, All Results, Last 6 months Scheduled acyclovir: 720 mg, 14.4 mL, 264.4 mL/hr, IV, q8 hr aspirin 81 mg EC Tab: 81 mg, PO, qDay atorvastatin 40 mg Tab: 40 mg, PO, qDay ca carb/vit D 500mg rosebud/200 I 1 Tab, PO, BID carvedilol 3.125 mg Tab: 3.125 mg, PO, BID citalopram 10 mg tab: 10 mg, PO, Daily cyanocobalamin 100 mcg Tab: 50 mcg, PO, qDay docusate/senna (50/8.6) mg Tab 2 Tab, PO, qHS enoxaparin 80 mg/0.8 mL Inj: 70 mg, SUBCUT, q12 hr famotidine 20 mg Tab: 20 mg, PO, Daily LORazepam 2 mg/mL 1mL Inj: 0.5 mg, IV Push, onc e sodium chloride: 10 mL, IV Push, q12hr PRN acetaminophen 500 mg Tab: 500 mg, PO, q6hr, PRN : Pain/Temperature albuterol (0.083%) 2.5 mg/3 mL 2.5 mg, 3 mL, NEB - inhalation, q4hr, PRN: Shortness of breath or wheezing hydrALAZINE 20 mg/mL 1mL Inj: 5 mg, IV Push, q4 hr, PRN: Other (see Comments) magnesium oxide 400 mg Tab: 400 mg, PO, Per Par ameter, PRN: Hypomagnesemia magnesium sulf /SW: 2 gm, 5 0 mL, 25 mL/hr, IV, Per Parameter, PRN: Hypomagnesemia magnesium sulf /SW: 4 gm, 1 00 mL, 25 mL/hr, IV, Per Parameter, PRN: Hypomagnesemia morphine 2 mg/mL 1mL Inj: 2 mg, IV Push , q4hr, PRN: Pain Scale (See Comments) nalOXone 0.4 mg/mL 1mL Inj: 0.2 mg, IV Push, q2min, PRN: Respiratory depression ondansetron 2 mg/mL Inj 2mL : 4 mg, IV Push, q4hr, PRN: Nausea / Vomiting 1st Choice oxyCODONE 5 mg Tab Immediate R 5 mg, PO, q6hr, PRN: Pain potassium bicarbonate 20 mEq E 20 mEq, PO, Per Parameter, PRN: Hypokalemia potassium bicarbonate 20 mEq E 40 mEq, PO, Per Parameter, PRN: Hypokalemia potassium Cl / SW Premix: 1 0 mEq, 100 mL, 100 mL/hr, IV, Per Parameter, PRN: Hypokalemia prochlorperazine 5 mg/mL 2 mL 5 mg, IV Push, q4hr, PRN: Nausea / Vomiting 2nd Choice sodium chloride: 10 mL, IV Push, Per Parameter, PRN: Other (see Comments) temazepam 7.5 mg Cap: 7.5 mg, PO, qHS, PRN: Ins omnia Diagnostic Results Radiology - Full Interpretation, This Encounter Name: JOSEPH VALDIVIA Account: [id number] : 1940 Result Date: 11/27/19 19:46 Verified By: Nelson Hurt MD at 11/27/19 20:10 Report : CT Angio Abdomen+Pelvis w Con Exam: CTA Abdomen and pelvis with IV contrast. INDICATION: abdominal pain right lower quadrant left lower quadrant abdominal pain distention claudication to the lower extremities. COMPARISON: No TECHNIQUE: Axial images acq uired from of the abdomen and pelvis following 100ml [id number] cc Isovue 370 intravenous contrast with sagittal and coronal reconstruction imaging. 3-D multirotational MIP recon struction imaging performed of the aortic vasculature, generated at a separate workstation by technologist. All CT scans at this hospital employ automatic and/or manual dose reduction techniques to keep radiation dose as low as reasonably achievable. FINDINGS: The abdominal aor ta is normal in caliber and contour with moderate atherosclerotic calcifications. No underlying dissection is demonstrated. The aortic bifurcation is normal in caliber withou t underlying stenosis. 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 The celiac artery branch vessels appear grossly patent. The SMA demonstrates coarse calcifications withou t significant stenosis. The SMA branch vessels appear grossly patent throughout. The KAROLINA appears to be moderately narrowed at its origin but otherwise appears grossly unremarkable. The bilateral renal a rteries appear to be grossly patent with mild to mild atherosclerotic calcifications. Mild peribronchial thickeni ng noted within the bilateral lower lobes which could be chronic in nature with diffuse interlobular septal thickening as well as underlying emphysematous changes. The liver appears grossly u nremarkable. As a part from slightly nodular appearance. Gallbladder is unremarkable as well. There is a focal low- attenuation lesion at the lower pole of the spleen which de monstrates wedge-shaped appe arance with preservation of the capsule which may represent prior infarct. Additional areas of decreased attenuation seen at the upper pole likely related to additional areas of infarcts probable scarri ng related to the inferior pole of the spleen. Mild thickening of bilateral adrenal glands. There is decreased attenuation the right kidney with moderate surrounding fat stra nding. Striated appearance t he bilateral kidneys with more wedge-shaped appearance of decreased attenuation the right kidney which may be related to pyelonephritis without jorge alberto focal collection. Especi ally on the left. However, u nderlying infarct could also be of consideration no hydronephrosis is demonstrated. No structural caval left renal vein noted. The IVC filter is seen with low the renal veins in place. There are bladder appears to be mildly thickened anteriorly. Trace free fluid within the pelvis. Mild colonic diverticulosis is noted without evidence for diverticulitis. Mild thickening of t he transverse colon as well as the right colon is noted. The appendix is unremarkable. 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 The uterus is surgically absent. There is a dense lesion seen within a small bowel loop within the midabdomen at the midline which appears to be somewhat stable on delayed imaging seen in the loop further beyond and may be related to enteric material. Rather than hemorrhage. The visualized osseous stru ctures demonstrate mild diffuse osteopenia. There is slight heterogeneity of the bones. Which could be due to osteopenia. However, infiltrating process cannot be entirely excluded. IMPRESSION: No aortic aneurysm or disse ction. 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 Additionally, there is moderate narrowing of the SMA at t he origin and proximally without jorge alberto stenosis. There are striated appearan ce the bilateral kidneys which may reflect pyelonephritis. However, underlying infarct could also be of consideration especially on the right side. No focal collection identi fied. 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 11/27/19 19:54 +++++++++++++++++++++++++++++++++++++++++++++++ ++++++++ Result Date: 11/27/19 13:34 Verified By: Osbaldo Everett DO at 11/28/19 09:11 Report : XR Foot 3+ Views Rt EXAM: XR Foot 3+ Views Rt CLINICAL HISTORY: toe pain TECHNIQUE: 3 views of the right foot COMPARISON: None FINDINGS: No acute fracture or sublux ation. Congruent forefoot and midfoot junction is noted. Cystic change at the base o f the second metatarsal. Degenerative changes throughout the right foot are noted. Prominent plantar calcaneal spur. No significant soft tissue swelling is seen. IMPRESSION: Degenerative changes. No acute fracture or subl uxation. 11/28/19 09:10 +++++++++++++++++++++++++++++++++++++++++++++++ ++++++++ Result Date: 11/27/19 11:21 Verified By: Osbaldo Everett DO at 11/27/19 14:45 Report : XR Chest 1 View Portable EXAM: XR Chest 1 View Portable INDICATION: Atypical Chest Pain TECHNIQUE: Single projection of the chest. COMPARISON: CT 11/04/2019 FINDINGS: The heart size is normal. The hilar shadows are normal Lungs show no consolidation or effusion 1.8 cm nodular density in the left lower lung i s noted Hemidiaphragms are unremark able. Costophrenic angles are sharp. Osseous structures show no acute abnormalities. IMPRESSION: Nodular density in the left lower lung measuring 1.5 cm. Findings are present on prior CT from 11/04/2019. Continued follow-up is recommended. 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 -w/u underway -appreciate Neuro input Calf pain M79.669 -w/u underway -possible PAD Elevated troponin I level R79.89 -cardiology aware -NSR on tele -no cp or symptoms of acute cardiovascular dise ase Gastroenteritis K52.9 -may be related to intermittent ischemia -keep hydrated -d/c isolation and CDiff study -- no diarrhea, but constipation -- doubt CDI Headache R51 -awaiting LP Photophobia of both eyes H53.143 -awaiting LP -IV Acyclovir started Toe pain, right M79.674 -appreciate X-ray and podiatry input Electronically Signed By: Kamaljit Pepe DO On 11/28/19 13:47 Co Signature By: Modify Signature By: History and Physical Patient: JOSEPH VALDIVIA MA 11/28/2019 [facility] Age: 79 years Sex: F : 1940 Active Ins urance: MEDICARE [id number] [facility] Admitting MD: Contreras Pepe DO Location: [facility] B3A: B331: 01 PCP: Carol Ruff MD Author: Raman Lyman DPM Subjective doing well states she is waiting to go to CT. caregiver and friend at bedside Objective Vitals and Measurements T: 36.8 C (Oral) TMIN: 36.6 C (Oral) TMAX: 36.9 C (Oral) HR: 98 RR: 18 BP: 138/76 SpO2: 95% Oxygen Method: Room air WT: 73.1 kg Physical Exam palpable pedal pulses noted bilaterally Incurvated right 2nd digit lateral nailfold noted minimal scant dry sanguinous drainage noted to the lateral nailfold appears stable measures 0.1 x 0.2cm. No ascending erythema/edema. dorsal right 4th toe eschar measures 0.3cm in d iameter Lab Results Common Labs - This Encounter, Most Recent, Last 24 hours Last 24 Hours Hematology-CBC 11/28/19 General Chemistry 11/28/19 Cardiac 11/28/19 WBC:14.2 (H) Sodium: 135 CK:243 (H) RBC:3.36 (L) Potassium: 3.6 CRP High Sens:62.34 (H) Hgb:10.1 (L) Chloride: 101 Troponin I:9.24 (!) Hct:30.5 (L) CO2: 23 MCV: 90.7 Anion Gap: 15 MCH: 30.0 Glucose Level:100 (H) MCHC: 33.1 BUN:9 (L) RDW: 13.5 Creatinine: 0.64 Plt: 211 eGFR Non- Am: >60 Neuts:84.9 (H) eGFR Afr/Amer: >60 Lymphs:4.9 (L) Calcium:8.0 (L) Monos.: 8.7 M.7 Eos.: 0.7 Protein, Total:5.5 (L) Baso.: 0.8 Albumin:2.6 (L) ABS Neut:12.0 (H) Globulin: 2.9 ABS Lymph: 0.7 A/G Ratio: 0.9 ABS [place]: 1.2 Bili Total: 0.5 ABS Eos: 0.1 ALT: 28 ABS Baso: 0.1 AST:64 (H) CBC Scan: Auto Diff Alkphos:204 (H) Lactic Acid: 1.0 Special Chemistry Other 11/28/19 Serology/Immunology 11/28/19 Microbiology/Serology 11/28/19 Procalcitonin: 0.08 Hepatitis A AB, IgM: Non-Reactive Influenza A, PCR: Negative Hepatitis Bc Ab, IgM: Non-Reactive Influenza B, PCR: Negative Hepatitis Bs Ag: Non-Reactive RSV, PCR: Negative Hepatitis C Ab: Non-Reactive Strep A, Rapid Test: Negative Cocci IgG: Negative Cocci IgM: Negative Additional Antibiotics Ordered acyclovir: 720 mg, IV, q8hr 11/27/19 17:25 - Ac tive ( 2 days ) Diagnostic Results Radiology - Full Interpretation, Last 24 hrs Name: JOSEPH VALDIVIA Account: [id number] : 1940 Result Date: 11/27/19 19:46 Verified By: Nelson Hurt MD at 11/27/19 20:10 Report : CT Angio Abdomen+Pelvis w Con Exam: CTA Abdomen and pelvis with IV contrast. INDICATION: abdominal pain right lower quadrant left lower quadrant abdominal pain distention claudication to the lower extremities. COMPARISON: No TECHNIQUE: Axial images acq uired from of the abdomen and pelvis following 100ml [id number] cc Isovue 370 intravenous contrast with sagittal and coronal reconstruction imaging. 3-D multirotational MIP recon struction imaging performed of the aortic vasculature, generated at a separate workstation by technologist. All CT scans at this hospital employ automatic and/or manual dose reduction techniques to keep radiation dose as low as reasonably achievable. FINDINGS: The abdominal aor ta is normal in caliber and contour with moderate atherosclerotic calcifications. No underlying dissection is demonstrated. The aortic bifurcation is normal in caliber withou t underlying stenosis. 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 The celiac artery branch vessels appear grossly patent. The SMA demonstrates coarse calcifications withou t significant stenosis. The SMA branch vessels appear grossly patent throughout. The KAROLINA appears to be moderately narrowed at its origin but otherwise appears grossly unremarkable. The bilateral renal a rteries appear to be grossly patent with mild to mild atherosclerotic calcifications. Mild peribronchial thickeni ng noted within the bilateral lower lobes which could be chronic in nature with diffuse interlobular septal thickening as well as underlying emphysematous changes. The liver appears grossly u nremarkable. As a part from slightly nodular appearance. Gallbladder is unremarkable as well. There is a focal low- attenuation lesion at the lower pole of the spleen which de monstrates wedge-shaped appe arance with preservation of the capsule which may represent prior infarct. Additional areas of decreased attenuation seen at the upper pole likely related to additional areas of infarcts probable scarri ng related to the inferior pole of the spleen. Mild thickening of bilateral adrenal glands. There is decreased attenuation the right kidney with moderate surrounding fat stra nding. Striated appearance t he bilateral kidneys with more wedge-shaped appearance of decreased attenuation the right kidney which may be related to pyelonephritis without jorge alberto focal collection. Especi ally on the left. However, u nderlying infarct could also be of consideration no hydronephrosis is demonstrated. No structural caval left renal vein noted. The IVC filter is seen with low the renal veins in place. There are bladder appears to be mildly thickened anteriorly. Trace free fluid within the pelvis. Mild colonic diverticulosis is noted without evidence for diverticulitis. Mild thickening of t he transverse colon as well as the right colon is noted. The appendix is unremarkable. 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 The uterus is surgically absent. There is a dense lesion seen within a small bowel loop within the midabdomen at the midline which appears to be somewhat stable on delayed imaging seen in the loop further beyond and may be related to enteric material. Rather than hemorrhage. The visualized osseous stru ctures demonstrate mild diffuse osteopenia. There is slight heterogeneity of the bones. Which could be due to osteopenia. However, infiltrating process cannot be entirely excluded. IMPRESSION: No aortic aneurysm or disse ction. 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 Additionally, there is moderate narrowing of the SMA at t he origin and proximally without jorge alberto stenosis. There are striated appearan ce the bilateral kidneys which may reflect pyelonephritis. However, underlying infarct could also be of consideration especially on the right side. No focal collection identi fied. 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 11/27/19 19:54 +++++++++++++++++++++++++++++++++++++++++++++++ ++++++++ Result Date: 11/27/19 13:34 Verified By: Osbaldo Everett DO at 11/28/19 09:11 Report : XR Foot 3+ Views Rt EXAM: XR Foot 3+ Views Rt CLINICAL HISTORY: toe pain TECHNIQUE: 3 views of the right foot COMPARISON: None FINDINGS: No acute fracture or sublux ation. Congruent forefoot and midfoot junction is noted. Cystic change at the base o f the second metatarsal. Degenerative changes throughout the right foot are noted. Prominent plantar calcaneal spur. No significant soft tissue swelling is seen. IMPRESSION: Degenerative changes. No acute fracture or subl uxation. 11/28/19 09:10 +++++++++++++++++++++++++++++++++++++++++++++++ ++++++++ Result Date: 11/27/19 11:21 Verified By: Osbaldo Everett DO at 11/27/19 14:45 Report : XR Chest 1 View Portable EXAM: XR Chest 1 View Portable INDICATION: Atypical Chest Pain TECHNIQUE: Single projection of the chest. COMPARISON: CT 11/04/2019 FINDINGS: The heart size is normal. The hilar shadows are normal Lungs show no consolidation or effusion 1.8 cm nodular density in the left lower lung i s noted Hemidiaphragms are unremark able. Costophrenic angles are sharp. Osseous structures show no acute abnormalities. IMPRESSION: Nodular density in the left lower lung measuring 1.5 cm. Findings are present on prior CT from 11/04/2019. Continued follow-up is recommended. Over read 11/27/19 14:42 +++++++++++++++++++++++++++++++++++++++++++++++ ++++++++ Assessment/Plan 79 yo female with significant PMH Podiatry consulted for evaluation of the right 2nd digit ingrowing toenail. >>> Right 2nd toe Onychocryptosis lateral borde r -XRs reviewed, no e/o corti nilo erosion to the right 2nd digit distal phalanx to suggest OM. XRs positive for significant cystic changes to the tarsometatarsal joints. official read pending. -leukocytosis unlikely from right 2nd digit. -again minimally performed right 2nd lateral nailfold wedge resection to patient's tolerance (no matrixectomy instrumentation available in inpatient setting) dressed with betadine bandaid -No podiatric inpatient erin gical intervention indicated. Right 2nd toe stable. -Ok to paint toe with betadine daily to prevent infection. -Topical lidocaine PRN for pain control. Additionally avoiding any pressure on the toe will prevent pain. -Once patient is more stabl e/discharged and in an out patient setting permanent partial matrixectomy procedure could be done under local anesthetic. 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 -toes should be checked hanna ly with RN to eval for any ischemic changes given h/o shower emboli. venous and arterial US were ordered and are pending. -Appreciate the consult, pl ease feel free to call me with any questions/changes. any SOI presents please reconsult. thank you. -Podiatry signing off. Raman Lyman DPM [facility] [address] [facility] [address] Off: [phone] Electronically Signed By: Raman Lyman DPM On 11/28/19 13:37 Co Signature By: Modify Signature By: History and Physical 11/28/2019 [facility] Patient: JOSEPH VALDIVIA ( EV) [facility] Age: 79 years Sex: F : 1940 Associated Diagnoses: None Author: Shiva Echeverria MD Basic Information Date of Service: 11/28/2019 09:21. Admission Information: Admit Days = 1, Patient T ype = Inpatient . Impression and Plan Diagnosis SUBJECTIVE: F/u +Trop: denies CP, SOB She's having some forgetfulness ROS: no abd pain, hematochezia, vomiting, hemat uria OBJECTIVE: NAD CTAB RRR no m/r/g SOFT NT/ND No c/c/e Tele: SR IMPRESSION: 1. +Troponin, unclear if nstemi vs demand 2. Headache, neck stiffness, lethargy, vomiting, r/o meningitis 3. Recent 2 admissions for m ultifocal CVA, on Eliquis, known PFO; AMBER unremarkable 4. LLE DVT s/p IVC filter while at [facility] PLAN: 1. asa/statin/coreg 2. Eliquis on hold for LP > will give Lovenox to day x2 doses 3. depending on LP results, may also need LHC 4. order routine Echo D/w RN . Health Status Intake and Output 24 hour I&O data 24hr I&O Intake Output Balance Yesterday: 730.96 300.00 430.96 Today: 10.00 200.00 -190.00 Allergies: Allergic Reactions (All) NKA Current medications: Antibiotic Info Ordered acyclovir: 720 mg, IV, q8hr 11/27/19 17:25 - Ac tive ( 2 days ) , Scheduled acyclovir: 720 mg, 14.4 mL, 264.4 mL/hr, IV, q8h r aspirin 81 mg EC Tab: 81 mg, PO, qDay atorvastatin 40 mg Tab: 40 mg, PO, qDay ca carb/vit D 500mg rosebud/200 I 1 Tab, PO, BID carvedilol 3.125 mg Tab: 3.125 mg, PO, BID citalopram 10 mg tab: 10 mg, PO, Daily cyanocobalamin 100 mcg Tab: 50 mcg, PO, qDay docusate/senna (50/8.6) mg Tab 2 Tab, PO, qHS famotidine 20 mg Tab: 20 mg, PO, Daily LORazepam 2 mg/mL 1mL Inj: 0.5 mg, IV Push, once sodium chloride: 10 mL, IV Push, q12hr Discontinued apixaban 5 mg Tab: 5 mg, PO, BID iopamidol 76% 370 mg/mL 100 mL 100 mL, IV Push, x1 sodium chloride: 10 mL, IV Push, q12hr PRN Meds acetaminophen 500 mg Tab: 500 mg, PO, q6hr, PRN: Pain/Temperature albuterol (0.083%) 2.5 mg/3 mL 2.5 mg, 3 mL, NEB - inhalation, q4hr, PRN: Shortness of breath or wheezing hydrALAZINE 20 mg/mL 1mL Inj: 5 mg, IV Push, q4h r, PRN: Other (see Comments) magnesium oxide 400 mg Tab: 400 mg, PO, Per Para meter, PRN: Hypomagnesemia magnesium sulf /SW: 2 gm, 50 mL, 25 mL/hr, IV, Per Parameter, PRN: Hypomagnesemia magnesium sulf /SW: 4 gm, 10 0 mL, 25 mL/hr, IV, Per Parameter, PRN: Hypomagnesemia morphine 2 mg/mL 1mL Inj: 2 mg, IV Push, q4hr, P RN: Pain Scale (See Comments) nalOXone 0.4 mg/mL 1mL Inj: 0.2 mg, IV Push, q2min, PRN: Respiratory depression ondansetron 2 mg/mL Inj 2mL: 4 mg, IV Push, q4hr, PRN: Nausea / Vomiting 1st Choice oxyCODONE 5 mg Tab Immediate R 5 mg, PO, q6hr, P RN: Pain potassium bicarbonate 20 mEq E 20 mEq, PO, Per P arameter, PRN: Hypokalemia potassium bicarbonate 20 mEq E 40 mEq, PO, Per P arameter, PRN: Hypokalemia potassium Cl / SW Premix: 10 mEq, 100 mL, 100 mL/hr, IV, Per Parameter, PRN: Hypokalemia prochlorperazine 5 mg/mL 2 m L 5 mg, IV Push, q4hr, PRN: Nausea / Vomiting 2nd Choice sodium chloride: 10 mL, IV Push, Per Parameter, PRN: Other (see Comments) temazepam 7.5 mg Cap: 7.5 mg, PO, qHS, PRN: Inso mnia Discontinued sodium chloride: 10 mL, IV Push, Per Parameter, PRN: Other (see Comments) ., VS/Measurements 24 hr vital signs (All documented values resulted over the prior 24 hours) Low High Last 36.6 36.9 36.6 (11/28 08:59) (11/27 15:11) (11/28 08:59) Temperature PO Temperature PO Temperature PO HR 90 101 95 (11/27 15:11) (11/27 23:53) (11/28 08:59) RR 16 20 20 (11/27 11:01) (11/28 08:59) (11/28 08:59) NIBP 125/76 166/97 147/76 (11/27 21:00) (11/27 10:35) (11/28 08:59) NIBP Mean 92 105 92 (11/27 21:00) (11/27 12:00) (11/27 21:00) Weight (kg) Admit 72.56 (11/27 10:35) Current 73.10 (11/27 21:41) Previous 72.56 (11/27 10:35) Gain/Loss 0.54 BMI = 26.02 11/27/19 21:41 BMI Ventilation Low High Last SaO2 95 99 96 (11/27 23:53) (11/27 10:35) (11/28 08:59) FIo2 21 21 21 (11/27 23:20) (11/27 23:20) (11/27 23:20) == , Last Documented Vital Signs Vital Signs (Most Recent ) Temp PO Heart Rate Resp Rate 36.6 95 20 (11/28 08:59) (11/28 08:59) (11/28 08:59) Non Invasive BP NIBP Mean AdmitWeight CurrentWe ight BMI 147 / 76 92 72.56 73.10 26.02 (11/28 08:59) (11/27 21:00) (11/27 10:35) (11/05 21:41) (11/27 21:41) Ventilation SaO2 FiO2 96 21 (11/28 08:59) (11/27 23:20) Review / Management Results Review: 24 hr Labs Labs (All documented values resulted over the p rior 24 hours..) Hematology WBC 14.10H Hgb 11.60 Hct 34.60L Plt 244.00 Chemistry Na 138.00 K 3.80 Cl 101.00 CO2 25.00 Gluc 123.00H Bun 9.00L Cr 0.72 Ca 8.80 T Bili 0.50 Enzymes Alkphos 258.00H ALT 34 Trop.I. 5.86C AST 40H Coagulation PT 16.60H INR 1.46 PTT 29.50 Proteins Alb 2.90L (11/27 10:45) Anion Anion Gap 16.00 (11/27 10:45) , Microbiology Studies Recently Resulted . Radiology Results Radiologist's interpretation 24hrs Name: JOSEPH VALDIVIA Account: [id number] : 1940 Result Date: 11/27/19 19:46 Verified By: Nelson Hurt MD at 11/27/19 20:10 Report : CT Angio Abdomen+Pelvis w Con IMPRESSION:No aortic aneurys m or dissection. 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 Additionally, there is moderate narrowing of th e SMA at the origin and prox imally without jorge alberto stenosis.There are striated appearance the bilateral kidneys which may reflect pyelonephritis. However, underlying infarct could also be of consideration especially on the right antonio e. No focal collection identified. Multiple probable infarcts are seen of the spleen which are of indeterminate age but may be chronic.Large cystic ovarian neoplasm noted arising from the right. 11/27/19 19:54 ++++++++++++++++++++++++++++++++++++++++++++++++ +++++++ Result Date: 11/27/19 13:34 Verified By: Osbaldo Everett DO at 11/28/19 0 9:11 Report : XR Foot 3+ Views Rt IMPRESSION:Degenerative jacques ges. No acute fracture or subluxation. 11/28/19 09:10 ++++++++++++++++++++++++++++++++++++++++++++++++ +++++++ Result Date: 11/27/19 11:21 Verified By: Osbaldo Everett DO at 11/27/19 1 4:45 Report : XR Chest 1 View Portable IMPRESSION: Nodular density in the left lower lung measuring 1.5 cm. Findings are present on prior CT from 11/04/2019. Continued follow-up is recommended.Over read 11/27/19 14:42 ++++++++++++++++++++++++++++++++++++++++++++++++ +++++++ hospital monitor Electronically Signed By: Shiva Echeverria MD On 11/28/19 09:25 Co Signature By: Modify Signature By: History and Physical Patient: JOSEPH VALDIVIA MA 11/28/2019 [facility] Age: 79 years Sex: F : 1940 Active Ins urance: MEDICARE [phone] [facility] Admitting MD: Contreras Pepe DO Location: [facility] EDIP: 07: 01 PCP: Carol Ruff MD Author: Raman Lyman DPM Referring Physician Kamaljit Pepe DO Reason for Consultation right 2nd toe ingrown Chief Complaint right second toe ingrown History of Present Illness Patient was seen with her s on at bedside, states she usually sees Dr. Esa Herrera for her podiatric needs. Relates she had a pedicure and they tried to remove the ingrown from the right 2nd toe and it made it worse. she had some increased pain and bleeding. Son states, 'we figured they could take care of everything while she is here in the hospital'. Objective Vitals and Measurements T: 36.8 C (Oral) TMIN: 36.7 C (Oral) TMAX: 36.9 C (Oral) HR: 93 RR: 18 BP: 140/79 SpO2: 95% Oxygen Method: Room air WT: 72.562 kg WT: 160 lbs Physical Exam palpable pedal pulses noted bilaterally Incurvated right 2nd digit lateral nailfold noted minimal scant dry sanguinous drainage noted to the lateral nailfold appears stable measures 0.1 x 0.2cm. No ascending erythema/edema. dorsal right 4th toe eschar measures 0.3cm in d iameter Lab Results Common Labs - This Encounter, Most Recent, Last 24 hours Last 24 Hours Hematology-CBC 11/27/19 Coag 11/27/19 General Chemistry 11/27/19 WBC:14.1 (H) INR: 1.46 Sodium: 138 RBC:3.82 (L) PT:16.6 (H) Potassium: 3.8 Hgb: 11.6 PTT: 29.5 Chloride: 101 Hct:34.6 (L) CO2: 25 MCV: 90.5 Anion Gap:16 (H) MCH: 30.3 Glucose Level:123 (H) MCHC: 33.5 BUN:9 (L) RDW: 13.5 Creatinine: 0.72 Plt: 244 eGFR Non- Am: >60 Neuts:89.9 (H) eGFR Afr/Amer: >60 Lymphs:4.1 (L) Calcium: 8.8 Monos.: 5.3 M.8 Eos.: 0.2 Protein, Total:6.2 (L) Baso.: 0.5 Albumin:2.9 (L) ABS Neut:12.7 (H) Globulin: 3.3 ABS Lymph: 0.6 A/G Ratio: 0.9 ABS [place]: 0.8 Bili Total: 0.5 ABS Eos: 0.0 ALT: 34 ABS Baso: 0.1 AST:40 (H) CBC Scan: Auto Diff Alkphos:258 (H) Cardiac 11/27/19 Special Chemistry Other 11/27/19 Serology/Immunology 11/27/19 CK: 151 Procalcitonin: 0.08 Hepatitis A AB, IgM: Non-Reactive Troponin I:2.00 (!) Hepatitis Bc Ab, IgM: Non-Reactive Hepatitis Bs Ag: Non-Reactive Hepatitis C Ab: Non-Reactive Strep A, Rapid Test: Negative Microbiology/Serology 11/27/19 Influenza A, PCR: Negative Influenza B, PCR: Negative RSV, PCR: Negative Additional Antibiotics Ordered acyclovir: 720 mg, IV, q8hr 11/27/19 17:25 - Ac tive ( 1 days ) Diagnostic Results Radiology - Full Interpretation, Last 24 hrs Name: JOSEPH VALDIVIA Account: [id number] : 1940 Result Date: 11/27/19 19:46 Verified By: Nelson Hurt MD at 11/27/19 20:10 Report : CT Angio Abdomen+Pelvis w Con Exam: CTA Abdomen and pelvis with IV contrast. INDICATION: abdominal pain right lower quadrant left lower quadrant abdominal pain distention claudication to the lower extremities. COMPARISON: No TECHNIQUE: Axial images acq uired from of the abdomen and pelvis following 100ml [id number] cc Isovue 370 intravenous contrast with sagittal and coronal reconstruction imaging. 3-D multirotational MIP recon struction imaging performed of the aortic vasculature, generated at a separate workstation by technologist. All CT scans at this hospital employ automatic and/or manual dose reduction techniques to keep radiation dose as low as reasonably achievable. FINDINGS: The abdominal aor ta is normal in caliber and contour with moderate atherosclerotic calcifications. No underlying dissection is demonstrated. The aortic bifurcation is normal in caliber withou t underlying stenosis. 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 The celiac artery branch vessels appear grossly patent. The SMA demonstrates coarse calcifications withou t significant stenosis. The SMA branch vessels appear grossly patent throughout. The KAROLINA appears to be moderately narrowed at its origin but otherwise appears grossly unremarkable. The bilateral renal a rteries appear to be grossly patent with mild to mild atherosclerotic calcifications. Mild peribronchial thickeni ng noted within the bilateral lower lobes which could be chronic in nature with diffuse interlobular septal thickening as well as underlying emphysematous changes. The liver appears grossly u nremarkable. As a part from slightly nodular appearance. Gallbladder is unremarkable as well. There is a focal low- attenuation lesion at the lower pole of the spleen which de monstrates wedge-shaped appe arance with preservation of the capsule which may represent prior infarct. Additional areas of decreased attenuation seen at the upper pole likely related to additional areas of infarcts probable scarri ng related to the inferior pole of the spleen. Mild thickening of bilateral adrenal glands. There is decreased attenuation the right kidney with moderate surrounding fat stra nding. Striated appearance t he bilateral kidneys with more wedge-shaped appearance of decreased attenuation the right kidney which may be related to pyelonephritis without jorge alberto focal collection. Especi ally on the left. However, u nderlying infarct could also be of consideration no hydronephrosis is demonstrated. No structural caval left renal vein noted. The IVC filter is seen with low the renal veins in place. There are bladder appears to be mildly thickened anteriorly. Trace free fluid within the pelvis. Mild colonic diverticulosis is noted without evidence for diverticulitis. Mild thickening of t he transverse colon as well as the right colon is noted. The appendix is unremarkable. 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 The uterus is surgically absent. There is a dense lesion seen within a small bowel loop within the midabdomen at the midline which appears to be somewhat stable on delayed imaging seen in the loop further beyond and may be related to enteric material. Rather than hemorrhage. The visualized osseous stru ctures demonstrate mild diffuse osteopenia. There is slight heterogeneity of the bones. Which could be due to osteopenia. However, infiltrating process cannot be entirely excluded. IMPRESSION: No aortic aneurysm or disse ction. 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 Additionally, there is moderate narrowing of the SMA at t he origin and proximally without jorge alberto stenosis. There are striated appearan ce the bilateral kidneys which may reflect pyelonephritis. However, underlying infarct could also be of consideration especially on the right side. No focal collection identi fied. 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 11/27/19 19:54 +++++++++++++++++++++++++++++++++++++++++++++++ ++++++++ Result Date: 11/27/19 11:21 Verified By: Osbaldo Everett DO at 11/27/19 14:45 Report : XR Chest 1 View Portable EXAM: XR Chest 1 View Portable INDICATION: Atypical Chest Pain TECHNIQUE: Single projection of the chest. COMPARISON: CT 11/04/2019 FINDINGS: The heart size is normal. The hilar shadows are normal Lungs show no consolidation or effusion 1.8 cm nodular density in the left lower lung i s noted Hemidiaphragms are unremark able. Costophrenic angles are sharp. Osseous structures show no acute abnormalities. IMPRESSION: Nodular density in the left lower lung measuring 1.5 cm. Findings are present on prior CT from 11/04/2019. Continued follow-up is recommended. Over read 11/27/19 14:42 +++++++++++++++++++++++++++++++++++++++++++++++ ++++++++ Assessment/Plan 79 yo female with significant PMH Podiatry consulted for evaluation of the right 2nd digit ingrowing toenail. >>> Right 2nd toe Onychocryptosis -XRs reviewed, no e/o corti nilo erosion to the right 2nd digit distal phalanx to suggest OM. XRs positive for significant cystic changes to the tarsometatarsal joints. official read pending. -leukocytosis unlikely from right 2nd digit. -minimally performed right 2nd lateral nailfold wedge resection with suture removal kit to patient's tolerance (no matrixectomy instrumentation available in inpatient setting) -No podiatric inpatient erin gical intervention indicated. Right 2nd toe stable. -Ok to paint toe with betadine daily to prevent infection. -Topical lidocaine PRN for pain control. Additionally avoiding any pressure on the toe will prevent pain. -Once patient is more stabl e/discharged and in an out patient setting permanent partial matrixectomy procedure could be done under local anesthetic. 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 -toes should be checked hanna ly with RN to eval for any ischemic changes given h/o shower emboli. venous and arterial US were ordered and are pending. -Appreciate the consult, pl ease feel free to call me with any questions/changes. any SOI presents please reconsult. thank you. 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 Stroke Historical No qualifying data Procedure/Surgical History ivc filter (11/15/2019) Bladder operation Carcinoma Hysterectomy Knee replacement Plantar fascia Rectal fistula Sclerotherapy of varicose vein Medications Inpatient acyclovir albuterol 0.083% NEB, 2.5 mg= 3 mL, NEB - inhal ation, q4hr, PRN aspirin, 81 mg= 1 Tab, PO, qDay Ativan, 0.5 mg= 0.25 mL, IV Push, once atorvastatin, 40 mg= 1 Tab, PO, qDay calcium carbonate/vit D (500mg/200 unit) Tab, 1 Tab, PO, BID citalopram, 10 mg= 1 Tab, PO, Daily Compazine, 5 mg= 1 mL, IV Push, q4hr, PRN Coreg, 3.125 mg= 1 Tab, PO, BID cyanocobalamin, 50 mcg= 0.5 Tab, PO, qDay docusate-senna 50/8.6, 2 Tab, PO, qHS Effer-K, 20 mEq= 1 Tab, PO, Per Parameter, PRN Effer-K, 40 mEq= 2 Tab, PO, Per Parameter, PRN hydrALAZINE, 5 mg= 0.25 mL, IV Push, q4hr, PRN KCL 10 mEq/100 mL IVPB, 10 mEq= 100 mL, IV, Per Parameter, PRN magnesium oxide, 400 mg= 1 Tab, PO, Per Paramet er, PRN magnesium sulfate 2gm/50 mL SW, 2 gm= 50 mL, IV , Per Parameter, PRN magnesium sulfate 4gm/100 mL SW, 4 gm= 100 mL, IV, Per Parameter, PRN morphine INJ, 2 mg= 1 mL, IV Push, q4hr, PRN nalOXone, 0.2 mg= 0.5 mL, IV Push, q2min, PRN oxyCODONE immediate release tablet, 5 mg= 1 Tab , PO, q6hr, PRN Pepcid, 20 mg= 1 Tab, PO, Daily Restoril, 7.5 mg= 1 Cap, PO, qHS, PRN saline flush 0.9%, 10 mL, IV Push, q12hr saline flush 0.9%, 10 mL, IV Push, Per Paramete r, PRN Tylenol oral TABLET, 500 mg= 1 Tab, PO, q6hr, P RN Zofran, 4 mg= 2 mL, IV Push, q4hr, PRN Home amLODIPine 2.5 mg oral tablet, 2.5 mg= 1 Tab, P O, qDay atorvastatin, 20 mg, PO, qDay bethanechol, 10 mg, PO, TID , x14 days (started 11/26/19)[id number] Calcium 600 +D Tab, 1 Tab, PO, TID citalopram, 10 mg, PO, Daily Colace, 100 mg, PO, BID Eliquis 5 mg oral tablet, 5 mg= 1 Tab, PO, BID Florastor, 250 mg, PO, BID guaiFENesin 600 mg oral tablet, extende d release, 600 mg= 1 Tab, PO, BID, PRN ondansetron 4 mg oral tablet, 4 mg= 1 Tab, PO, q4hr, PRN senna, 17.2 mg, PO, Daily, PRN Vitamin B12 50 mcg oral tablet, 50 mcg= 1 Tab, PO, qDay Vitamin D3 5,000 Unit oral capsule, 5000 Unit= 1 Cap, PO, qDay, with food Allergies NKA Reaction: None Documented Social History Alcohol Current, Wine, 1-2 times per month, 11/27/2019 Home/Environment Congregation restrictions/conc erns: None. Lives with Alone. Living situation: Home/Independent., 11/27/2019 Substance Abuse Denies, 11/27/2019 Tobacco Former smoker, quit more th an 30 days ago, Stopped age [age] Years., 11/27/2019 Electronically Signed By: Raman Lyman DPM On 11/27/19 21:14 Co Signature By: Modify Signature By: History and Physical Patient: JOSEPH VALDIVIA MA 11/27/2019 [facility] Age: 79 years Sex: F : 1940 Active Ins urance: MEDICARE [phone] [facility] Admitting MD: Contreras Pepe DO Location: [facility] EDIP: 12: 01 PCP: Carol Ruff MD Author: Kamaljit Pepe DO Chief Complaint Numerous. History of Present Illness 79-year-old female recently hospitalized and [facility] has recently been sent home. Unfortunately she is developed abdominal cramping with nausea vomiting and diarrhea. Family states that s he had unilateral right eye blindness temporarily as well. EMS was called and found some possible EKG changes prompting her cantu return to the emergency room where she is being offered admission. Famil y is also concerned about on going toenail issues and discomfort as well as bilateral intermittent calf discomfort of undetermined etiology. Does not really occur with any type of activity but it usually is quelled with analgesia. There are no reports of fever, stuffy nose, sore throat, chest discomfort, shortness of breath, wheeze, cough. Appetite and weight of been relatively stable. No prior issues with urination. Family would also like to investigate fully etiology to her GI symptoms and have specifically requested a C. difficile test. According to family and patient she has been compliant with medications. Review of Systems All 14 systems reviewed --> pertinent positives include see above. Objective Vitals and Measurements T: 36.7 C (Oral) HR: 94 RR: 16 BP: 141/75 SpO2: 95% Oxygen Method: Room air WT: 72.562 kg WT: 160 lbs Physical Exam 24hr I&O Intake Output Balance Yesterday: 0.00 0.00 0.00 Today: 10.00 0.00 10.00 GEN: nontoxic, no acute distress HEENT: oropharync clear NECK: supple HEART: RRR LUNGS: breath sounds equal bilateral, non-labor ed GI: soft, nontender, normoactive bowel sounds, no rebound, no guarding EXT: no edema NEURO: no gross motor deficits, non-focal SKIN: warm, no rash Lab Results Common Labs - This Encounter, Most Recent, Last 24 hours Last 24 Hours Hematology-CBC 11/27/19 Coag 11/27/19 General Chemistry 11/27/19 WBC:14.1 (H) INR: 1.46 Sodium: 138 RBC:3.82 (L) PT:16.6 (H) Potassium: 3.8 Hgb: 11.6 PTT: 29.5 Chloride: 101 Hct:34.6 (L) CO2: 25 MCV: 90.5 Anion Gap:16 (H) MCH: 30.3 Glucose Level:123 (H) MCHC: 33.5 BUN:9 (L) RDW: 13.5 Creatinine: 0.72 Plt: 244 eGFR Non- Am: >60 Neuts:89.9 (H) eGFR Afr/Amer: >60 Lymphs:4.1 (L) Calcium: 8.8 Monos.: 5.3 M.8 Eos.: 0.2 Protein, Total:6.2 (L) Baso.: 0.5 Albumin:2.9 (L) ABS Neut:12.7 (H) Globulin: 3.3 ABS Lymph: 0.6 A/G Ratio: 0.9 ABS [place]on: 0.8 Bili Total: 0.5 ABS Eos: 0.0 ALT: 34 ABS Baso: 0.1 AST:40 (H) CBC Scan: Auto Diff Alkphos:258 (H) Cardiac 11/27/19 Additional No qualifying data available. Diagnostic Results Radiology - Full Interpretation, This Encounter Name: JOSEPH VALDIVIA Account: [id number] : 1940 Result Date: Verified By: at : +++++++++++++++++++++++++++++++++++++++++++++++ ++++++++ Assessment/Plan 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 -now resolved -quite concerning -get imaging and reconsult Neuro Calf pain M79.669 -unclear what this means -full diagnostic w/u suggested including arteri al LE Doppler -repeat LE Doppler venous as well r/o increase clot burden despite NPAC Elevated troponin I level R79.89 -cardiology aware -always has elevation -defer LHC for now Gastroenteritis K52.9 -check infectious -family wants Cdiff checked Toe pain, right M79.674 -family requesting imaging and podiatry Disposition -definitely feel patient wi ll require another lengthy hospital stay to identify, treat, and stabilize constellation of concerns Problem List/Past Medical History Ongoing Acute embolic stroke Acute superficial venous thrombosis of left low er extremity Deep venous thrombosis of left popliteal vein Elevated troponin Shingles 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 Stroke Procedure/Surgical History Bladder operation Carcinoma Hysterectomy Knee replacement Plantar fascia Rectal fistula Sclerotherapy of varicose vein Home Medications amLODIPine 2.5 mg oral tablet, 2.5 mg= 1 Tab, P O, qDay atorvastatin 20 mg oral tablet, 20 mg= 1 Tab, P O, qDay bethanechol 10 mg oral tablet, 10 mg= 1 Tab, PO , TID Calcium 600 +D Tab, 1 Tab, PO, TID citalopram, 10 mg, PO, Daily Colace, 100 mg, PO, BID Eliquis 5 mg oral tablet, 5 mg= 1 Tab, PO, BID Florastor, 250 mg, PO, BID guaiFENesin 600 mg oral tablet, extended releas e, 600 mg= 1 Tab, PO, BID ondansetron 4 mg oral tablet, 4 mg= 1 Tab, PO, q4hr, PRN oxyCODONE 5 mg oral capsule, 5 mg= 1 Cap, PO, q 6hr, PRN senna, 17.2 mg, PO, Daily Vitamin B12 50 mcg oral tablet, 50 mcg= 1 Tab, PO, qDay Vitamin D3 5,000 Unit oral capsule, 5000 Unit= 1 Cap, PO, qDay, with food Allergies NKA Reaction: None Documented Social History Alcohol Current, Wine, 1-2 times per month, 11/27/2019 Home/Environment Congregation restrictions/conc erns: None. Lives with Alone. Living situation: Home/Independent., 11/27/2019 Substance Abuse Denies, 11/27/2019 Tobacco Former smoker, quit more th an 30 days ago, Stopped age [age] Years., 11/27/2019 Family History CVA HTN PCP: Carol Pratt Code status: FULL Electronically Signed By: Kamaljit Pepe DO On 11/27/19 12:48 Co Signature By: Modify Signature By: History and Physical Patient: JOSEPH VALDIVIA MA 11/08/2019 [facility] Age: 79 years Sex: F : 1940 Active Ins urance: MEDICARE [phone] [facility] Center Admitting MD: Aaron Miller MD Location: [facility] B3B: B302: 01 PCP: Carol Ruff MD Author: Kevin Kee MD cc poor memory Subjective feels ok, no headache Objective Vitals and Measurements T: 36.8 C (Oral) TMIN: 36.7 C (Oral) TMAX: 37.1 C (Oral) HR: 96 RR: 16 BP: 134/83 SpO2: 98% Oxygen Method: Room air Physical Exam const - lying in bed nad neuro - ms awake and alert, speech and lang flu ent spont neg dysarthria orientation: Person, place, year cn - perrl, face symmetric eomi, no gaze deviat ion motor - neg drift, handgrips equal Lab Results Common Labs - All Encounters, All Results, Last 1 month Last Month Lipid Profile: Basic Metabolic Panel: Hematology: Triglyceride: ------ Sodium: 132 (11/07/19) Hgb: 13.1 (11/07/19) Cholesterol Total: ------ Potassium: 3.7 (11/07/19) HgbA1C: 5.3 (10/25/19) HDL Cholesterol: ------ Phosphorus: ------ WBC: 16.8 (11/07/19) LDL Ca (10/25/19) M.9 (11/07/19) Plt: 113 (11/07/19) BUN: 11 (11/07/19) INR: 1.76 (11/04/19) Creatinine: 0.65 (11/07/19) Creatinine Clearance: ------ Additional - Last Month %HDL: 26.3 (10/25/19) A/G Ratio: 1.3 (11/04/19) ABS Baso: 0.1 (11/07/19) ABS Eos: 0.0 (11/07/19) ABS Lymph: 0.9 (11/07/19) ABS [place]on: 1.8 (11/07/19) ABS Neut: 14.0 (11/07/19) Albumin: 3.5 (11/04/19) Alkphos: 110 (11/04/19) ALT: 22 (11/04/19) Anion Gap: 14 (11/07/19) AST: 36 (11/04/19) Baso.: 0.4 (11/07/19) Bili Total: 0.6 (11/04/19) Calcium: 8.2 (11/07/19) CBC Scan: Auto Diff (11/07/19) Chloride: 100 (11/07/19) Chol/Tri.62 (10/25/19) Cholesterol: 198 (10/25/19) Cholesterol/HDL: 4 (10/25/19) CO2: 22 (11/07/19) eGFR Afr/Amer: >60 (11/07/19) eGFR Non- Am: >60 (11/07/19) Eos.: 0.1 (11/07/19) Estimated Average Glucose: 105 (10/25/19) Globulin: 2.7 (11/04/19) Glucose (POCT) Automated: 114 (11/07/19) Glucose Level: 111 (11/07/19) Hct: 37.9 (11/07/19) HDL: 52 (10/25/19) LDL/HDL: 2 (10/25/19) Lymphs: 5.1 (11/07/19) MCH: 31.9 (11/07/19) MCHC: 34.5 (11/07/19) MCV: 92.6 (11/07/19) Monos.: 10.8 (11/07/19) Neuts: 83.6 (11/07/19) Protein, Total: 6.2 (11/04/19) PT: 20.1 (11/04/19) PTT: 31.8 (11/04/19) RBC: 4.09 (11/07/19) RDW: 12.9 (11/07/19) Triglycerides: 122 (10/25/19) Troponin I: 0.72 (11/05/19) TSH: 3.569 (10/25/19) VLDL: 24 (10/25/19) Diagnostic Results (11/07/2019 05:54 [facility] CT Head wo Con) TECHNIQUE: Transaxial image s were obtained from the skull base to the vertex without contrast. All CT scans at this hospital employ automatic and/or manual dose reduction techniques to keep radiation dose as low as reasonably achievable. FINDINGS: Scattered left occipital lo be and left posterior medial temporal lobe hypodense changes are now present (not visualized on CT 11/04/2019) compatible with subacute infarctions identified on MRI to 11/23/19 20. There is no evidence of acute intracranial hemorrhage, midline shift, abnormal extra-axial fluid collection, or mass lesion. The ventricles are nondilated. The cortical sulci are normal for patient's age. Right frontal sinus opacifi cation again noted. Remaining visualized paranasal sinuses and mastoid air cells are unremarkable. Calvarium is grossly intact. IMPRESSION: Scattered small hypodense c hanges present compatible with multiple subacute infarcts (described above), as identified on MRI 11/23/2019. [1] Assessment/Plan Acute embolic stroke I63.9 2-4 - CT scan did not show any hemorrhage. Persistent known subacute infarcts. Continue anticoagulation. Follow-up outpatient neurology Dr Mccall 2-3 Patient was just recently s een by Dr. Rod yesterday. Prior to that was seen for stroke a week prior and Eliquis started for concern for cardioembolic emboli. She does have known PFO which there is no plan to address at this time by cardiology. Son is at bedside and notes that she has had persistent poor memory since her stroke and mild headache. Would like further evaluation by therapy. CT scan ordered for the a.m. to eval uate for any hemorrhagic conversion given her recent stroke and also continuation on Eliquis. Otherwise she is on max therapy. I did reconvert her to 40 mg atorvastatin for l dl 122. No further work-up f or stroke required additionally as she recently had stroke work-up with echo and vascular studies. Will follow up studies. Thank you for allowing me to participate in the care of this patient. Kevin Kee MD Neurohospitalist [facility]. This note was prepared usin g the [employer] voice recognition program, as well as pre-populated templates and macros. Despite best efforts at rev iewing and proofreading the note, some inadvertent errors may be present. Please contact the author if any clarif ications or corrections are requested. [1] CT Head wo Con; Javi Rangel DO 11/07/2019 05:54 MST Electronically Signed By: Kevin Kee MD On 11/07/19 17:52 Co Signature By: Modify Signature By: History and Physical Patient: JOSEPH VALDIVIA MA 11/07/2019 [facility] Age: 79 years Sex: F : 1940 Active Ins urance: MEDICARE [phone] [facility] Admitting MD: Aaron Miller MD Location: [facility] B3B: B302: 01 PCP: Carol Ruff MD Author: Kevin Kee MD cc headche poor memory Subjective memory Objective Vitals and Measurements T: 36.9 C (Oral) HR: 88 RR: 18 BP: 156/91 SpO2: 95% Physical Exam const - lying in bed nad neuro - ms awake and alert, speech and lang flu ent spont neg dysarthria orientation: Person, place, year cn - perrl, face symmetric eomi, no gaze deviat ion motor - neg drift, handgrips equal Lab Results Common Labs - All Encounters, All Results, Last 1 month Last Month Lipid Profile: Basic Metabolic Panel: Hematology: Triglyceride: ------ Sodium: 137 (11/04/19) Hgb: 13.1 (11/04/19) Cholesterol Total: ------ Potassium: 3.7 (11/05/19) HgbA1C: 5.3 (10/25/19) HDL Cholesterol: ------ Phosphorus: ------ WBC: 11.2 (11/04/19) LDL Ca (10/25/19) M.6 (11/05/19) Plt: 154 (11/04/19) BUN: 9 (11/04/19) INR: 1.76 (11/04/19) Creatinine: 0.66 (11/04/19) Creatinine Clearance: ------ Additional - Last Month %HDL: 26.3 (10/25/19) A/G Ratio: 1.3 (11/04/19) ABS Baso: 0.1 (11/04/19) ABS Eos: 0.1 (11/04/19) ABS Lymph: 1.1 (11/04/19) ABS [place]: 1.0 (11/04/19) ABS Neut: 8.8 (11/04/19) Albumin: 3.5 (11/04/19) Alkphos: 110 (11/04/19) ALT: 22 (11/04/19) Anion Gap: 15 (11/04/19) AST: 36 (11/04/19) Baso.: 1.0 (11/04/19) Bili Total: 0.6 (11/04/19) Calcium: 8.8 (11/04/19) CBC Scan: Auto Diff (11/04/19) Chloride: 101 (11/04/19) Chol/Tri.62 (10/25/19) Cholesterol: 198 (10/25/19) Cholesterol/HDL: 4 (10/25/19) CO2: 25 (11/04/19) eGFR Afr/Amer: >60 (11/04/19) eGFR Non- Am: >60 (11/04/19) Eos.: 1.1 (11/04/19) Estimated Average Glucose: 105 (10/25/19) Globulin: 2.7 (11/04/19) Glucose (POCT) Automated: 87 (11/04/19) Glucose Level: 96 (11/04/19) Hct: 38.8 (11/04/19) HDL: 52 (10/25/19) LDL/HDL: 2 (10/25/19) Lymphs: 9.7 (11/04/19) MCH: 31.6 (11/04/19) MCHC: 33.7 (11/04/19) MCV: 93.9 (11/04/19) Monos.: 9.3 (11/04/19) Neuts: 78.9 (11/04/19) Protein, Total: 6.2 (11/04/19) PT: 20.1 (11/04/19) PTT: 31.8 (11/04/19) RBC: 4.14 (11/04/19) RDW: 13.0 (11/04/19) Triglycerides: 122 (10/25/19) Troponin I: 0.72 (11/05/19) TSH: 3.569 (10/25/19) VLDL: 24 (10/25/19) Diagnostic Results (11/05/2019 16:23 MST MR Brain wo Con) IMPRESSION: 1. Several multiple supra a nd infratentorial small mainly punctate areas of restricted diffusion most consistent WITH MULTIPLE ACUTE INFARCTS are seen within the cerebellar hemispheres and as well as b oth cerebral lobes as detail ed above. The largest of these foci measures up to 1.1 x 1.7 cm about the left mesial temporal lobe. The rest of the punctate foci are mainly subcentimeter. Given the multipl icity and distribution of ac [place] infarcts, this suggests a potential embolic etiology. 2. No MR evidence of intracranial hemorrhage or extra-axial hematomas. 3. Minimal chronic microvascular ischemic mccrary es. 4. No midline shift. No mass effect. [1] Assessment/Plan Acute embolic stroke I63.9 Deep venous thrombosis of left popliteal vein I 82.432 Elevated troponin R79.89 Encephalopathy G93.40 Patient was just recently s een by Dr. Rod yesterday. Prior to that was seen for stroke a week prior and Eliquis started for concern for cardioembolic emboli. She does have known PFO which there is no plan to address at this time by cardiology. Son is at bedside and notes that she has had persistent poor memory since her stroke and mild headache. Would like further evaluation by therapy. CT scan ordered for the a.m. to eval uate for any hemorrhagic conversion given her recent stroke and also continuation on Eliquis. Otherwise she is on max therapy. I did reconvert her to 40 mg atorvastatin for l dl 122. No further work-up f or stroke required additionally as she recently had stroke work-up with echo and vascular studies. Will follow up studies. Thank you for allowing me to participate in the care of this patient. Kevin Kee MD Neurohospitalist [facility]. This note was prepared usin g the [employer] voice recognition program, as well as pre-populated templates and macros. Despite best efforts at rev iewing and proofreading the note, some inadvertent errors may be present. Please contact the author if any clarif ications or corrections are requested. [1] MR Brain wo Con; Otoniel Martin MD 020 16:23 MST Electronically Signed By: Kevin Kee MD On 11/06/19 16:15 Co Signature By: Modify Signature By: History and Physical Patient: JOSEPH VALDIVIA MA 11/06/2019 [facility] Age: 79 years Sex: F : 1940 Active Ins urance: MEDICARE [phone] [facility] Admitting MD: Aaron Miller MD Location: [facility] B3B: B302: 01 PCP: Carol Ruff MD Author: Aaron Miller MD Chief Complaint Headache and vision disturbances [1] History of Present Illness Patient is a 79 year old fe male with PMHx significant for recent CVA 2 weeks ago requiring hospitalization started on Eliquis, HTN and hyperlipidemia who presented to the ED on 11/04/2019 with complaints of increased fatigue and wo rsening headache, blurry vision beginning this morning. Patient was admitted by my partner on 10/24/2019 for stroke like symptoms and diagnosed with CVA. During that admission she was seen by Dr. Linnea navarro and Dr. Carlisle. She was diagnosed with Embolic stroke, PFO, chronic left popliteal DVT and left saphenous venous thrombosis and started on Eliquis. Pt was discharged on the 10/27/19 and followed up with Dr. Mccall since discharge. Family member reports since discharge on 10/27/2019 patient had been doing well with memory and vision up until this morning. Patients family member at bedside to assist with additional history. Patient was having vision changes and was unable to see the clock in her bedroom, difficulty using household items including the TV remote. Patient also notes decreased appetit e, as well as a headache. She states she usually doesnt get headaches but noticed this headache was worse with lights and better in the dark. Denies fever, chills, cough or s putum production. patient sa id she went to the chiropractor the day prior to admission, but states no manipulations were done. Upon arrival to ED, patient was hypertensive at 159/88. She had an elevated troponin of 0.90. She appea rs to have had elevated troponins during her last admission, she was seen by cardiology who felt it was not an NSTEMI but a noncardiac trop leak. The ER physician spoke with Dr. Carlisle, who felt this was likely her baseline. a CTA chest was ordered to rule out any PE or dissection which was negative. [1] [2] This patient was admitted t o our hospital on 11/04/2019 but was accidentally discharged home on 11/05/2019. Her MRI here showed acute new multiple CVAs. We have direct admitted the patient back to cardiac telemetry. Plan is to contin ue neurochecks. Follow-up with neurology to make further recommendations. Check bilateral lower extremity venous ultrasounds to make sure there is no embolization and have co ntributed to stroke. Discuss ed with cardiology. They feel that the PFO is less likely because of these recurrent strokes and more likely occult arrhythmia such as atrial fibrillation. Will need PT/OT an d speech therapy to follow t he patient for possible admission to acute rehab. She is also having cognitive changes in the last 48 hours. Review of Systems Difficult to obtain proper review of systems du e to cognitive impairment Objective Vitals and Measurements T: 36.9 C (Oral) HR: 88 RR: 18 BP: 156/91 SpO2: 95% Physical Exam GEN: No acute distress, alert and awake. Confus ed HEENT: oropharynx clear, mucous membranes moist NECK: supple, no jugular venous distention CV: regular rate and rhythm, no rubs or gallops PULM: clear to auscultation bilaterally, normal respiratory excursion ABD: soft, nontender, nondi stended, normoactive bowel sounds, no guarding or rebound. EXTR: no cyanosis, clubbing or edema NEURO: Non-focal, moves all extremities Lab Results Common Labs - This Encounter, Most Recent, Last 24 hours No qualifying data available. Diagnostic Results MRI - All Encounters, Most Recent, Last 2 weeks MRI MR Brain wo Con 18:10:36 EXAM: MR Brain wo Con CLINICAL HISTORY: Worsening headache, light sensitivity, memory difficulties, Stroke COMPARISON: CT head 11/04/2019 TECHNIQUE: Multiplanar and multisequence MRI of the brain was performed without IV gadolinium contrast. FINDINGS: Mild T2/FLAIR hyperintense foci are seen within the periventricular white matter most suggestive of chronic microvascular ischemic changes. The brain demonstrates no e vidence of intracranial hemorrhage, mass, mass effect, hydrocephalus, or extra-axial fluid collections. No abnormal shift of the midline structures. Several multiple small main ly punctate foci of restricted diffusion are seen within both cerebellar hemispheres infratentorially and supratentorially about both cerebral hemispheres at the frontal, par ietal and bilateral occipita l lobes, most consistent with multiple small acute infarcts. The largest area of involvement about the mesial left temporal lobe measures approximately 1.1 x 1.7 cm on image 17 series 304. The rest of t he punctate foci are mainly subcentimeter. There is a conglomerate of cortical based curvilinear restricted diffusion by the left occipital lobe consistent with additional ac [place] infarct. The distributio n and multiplicity of abnormalities suggests a potential embolic etiology. Correlate clinically. Normal connelly-white matter differentiation is not ed. The normal expected flow-voids are seen. No MR evidence of segmental infarct. The basal cisterns are patent. The sella/pituitary area appears unremarkable. The mastoids appear clear b y MRI. Right frontal and anterior ethmoid mucosal thickening and opacities are seen. Moderate right maxillary sinus opacities. The marrow signal intensity is unremarkable. IMPRESSION: 1. Several multiple supra a nd infratentorial small mainly punctate areas of restricted diffusion most consistent WITH MULTIPLE ACUTE INFARCTS are seen within the cerebellar hemispheres and as well as b oth cerebral lobes as detail ed above. The largest of these foci measures up to 1.1 x 1.7 cm about the left mesial temporal lobe. The rest of the punctate foci are mainly subcentimeter. Given the multipl icity and distribution of ac [place] infarcts, this suggests a potential embolic etiology. 2. No MR evidence of intracranial hemorrhage or extra-axial hematomas. 3. Minimal chronic microvascular ischemic mccrary es. 4. No midline shift. No mass effect. Assessment/Plan New multiple embolic infarcts Recent CVA 10 days ago Suspect occult arrhythmia History of PFO Chronic left lower extremity DVT Encephalopathy related to CVA Chronic elevation of troponin Plan: Continue Eliquis Neurochecks per protocol PT/OT/speech therapy Repeat CT of the head MRI of the brain was done yesterday showing the multiple infarcts AMBER was done on the last ad mission October 25 which revealed small PFO but no thrombus Discussed with cardiology. No further work-up needed on their end. No intervention needed for the chronic elevation of troponins. Suspect patient need acute rehab Further orders based on cli nical course, lab findings, and discussion consultants Ordered: Tylenol oral TABLET, 650 mg , PO, Tab, q4hr Priority: Routine PRN Pain Mild (1- 3), Start: 11/06/19 13:30:00 MST amLODIPine, 2.5 mg, PO, Tab, qDay Routine, Star t: 11/06/19 13:31:00 MST Eliquis, 5 mg, PO, Tab, BID Routine, Start: 12/21 13:31:00 MST atorvastatin, 20 mg, PO, Tab, qDay Routine, Sta rt: 11/06/19 21:00:00 MST cyanocobalamin, 50 mcg, PO, Tab, qDay Routine, Start: 11/06/19 13:31:00 MST hydrALAZINE, 10 mg, IV Push , INJ, q4hr Priority: Routine PRN Other (see Comments), for systolic blood pressure greater than 180, Start: 11/06/19 13:30:00 MST magnesium oxide, 400 mg, PO , Tab, Per Parameter Routine PRN Hypomagnesemia, Start: 11/06/19 13:30:00 MST magnesium sulfate 2gm/50 mL SW, 2 gm, IV, Bag, Per Parameter Routine PRN Hypomagnesemia, Infuse over: 2 hr, Start: 11/06/19 13:30:00 MST magnesium sulfate 4gm/100 m L SW, 4 gm, IV, Bag, Per Parameter Routine PRN Hypomagnesemia, Infuse over: 4 hr, Start: 11/06/19 13:30:00 MST Zofran, 4 mg, IV Push, INJ, q4hr Priority: Routine PRN Nausea / Vomiting 1st Choice, Start: 11/06/19 13:30:00 MST Effer-K, 20 mEq, PO, Tab, P er Parameter Priority: Routine PRN Hypokalemia, Per KCl Replacement to 4 Powerplan, Start: 11/06/19 13:30:00 MST Effer-K, 40 mEq, PO, Tab, P er Parameter Priority: Routine PRN Hypokalemia, Per KCl Replacement to 4 Powerplan, Start: 11/06/19 13:30:00 MST KCL 10 mEq/100 mL IVPB, 10 mEq, IV, Bag, Per Parameter Routine PRN Hypokalemia, Per KCl Replacement to 4 Powerplan, Infuse over: 60 min, Start: 11/06/19 13:30:00 MST Senokot, 8.6 mg, PO, Tab, q HS Routine PRN Constipation, Start: 11/06/19 13:30:00 MST temazepam, 7.5 mg, PO, Cap, qHS Routine PRN Insomnia, May repeat x 1 in 1 hr, Start: 11/06/19 13:30:00 MST Advance Activity as Tolerated Assess pain level BMP (Lytes, Glucose, Bun, Creat, and CA) CBC w/Diff* (man diff if indicated) Consulting Physician DVT/VTE reference text Elevate Head of Bed Equianalgesic Dose Chart Reference EV Skin and Wound Care Protocol Extrem Lower Venous Duplx Bilat US Heart Healthy Diet (Cardiac) Magnesium (Mg) Level Magnesium Replacement Monitoring Neuro Check Notify MD if Notify MD if Nursing Communication OT Initial Evaluation and Treatment Oxygen per protocol Patient Placement Patient Placement Potassium Level Potassium Replacement Monitoring to 4.0 Present on Admission PT Initial Evaluation and Treatment Pulse Oximetry Saline Lock Speech Language Cognition Evaluation and Treatm ent Video Education: Hospital Visit Expectations Video Education: Pain Management VTE Moderate Risk Problem List/Past Medical History Ongoing Acute embolic stroke Acute superficial venous thrombosis of left low er extremity Deep venous thrombosis of left popliteal vein Elevated troponin Shingles 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 Stroke Historical No qualifying data Procedure/Surgical History Bladder operation Carcinoma Hysterectomy Knee replacement Plantar fascia Rectal fistula Sclerotherapy of varicose vein Home Medications amLODIPine 2.5 mg oral tablet, 2.5 mg= 1 Tab, P O, qDay atorvastatin 20 mg oral tablet, 20 mg= 1 Tab, P O, qDay Calcium 600 +D Tab, 1 Tab, PO, TID cyclobenzaprine 10 mg oral tablet, TK 1 T PO TI D PRN Eliquis 5 mg oral tablet, 5 mg= 1 Tab, PO, BID SUMAtriptan 25 mg oral tabl et, 25 mg= 1 Tab, PO, qDay, PRN, may repeat dose after 2 hours up to a maximum of 200 mg in 24 hours Vitamin B12 50 mcg oral tablet, 50 mcg= 1 Tab, PO, qDay Vitamin D3 5,000 Unit oral capsule, 5000 Unit= 1 Cap, PO, qDay, with food Allergies NKA Reaction: None Documented Social History Alcohol Current, Wine, 1-2 times per month, 11/04/2019 Home/Environment Congregation restrictions/conc erns: None. Lives with Alone. Living situation: Home/Independent., 11/04/2019 Substance Abuse Denies, 11/04/2019 Tobacco Former smoker, quit more th an 30 days ago, Stopped age [age] Years., 11/04/2019 Family History Negative for patient [1] Discharge Summary Note; Aaron Miller MD 11/2019 10:49 MST [2] Discharge Summary Note; Aaron Miller MD 11/2019 10:49 MST Electronically Signed By: Aaron Miller MD On 11/06/19 14:38 Co Signature By: Modify Signature By: History and Physical Patient: JOSEPH VALDIVIA MA 11/05/2019 [facility] Age: 79 years Sex: F : 1940 Active Ins urance: MEDICARE [phone] [facility] Admitting MD: Tito Saunders MD Location: [facility] EDIP: 04: 01 PCP: Craol Ruff MD Author: Zee Ramirez Chief Complaint Headache, vision disturbances History of Present Illness Patient is a 79 year old fe male with PMHx significant for recent CVA 2 weeks ago requiring hospitalization started on Eliquis, HTN and hyperlipidemia who presented to the ED on 11/04/2019 with complaints of increased fatigue and wo rsening headache, blurry vision beginning this morning. Patient was admitted by my partner on 10/24/2019 for stroke like symptoms and diagnosed with CVA. During that admission she was seen by Dr. Linnea navarro and Dr. Carlisle. She was diagnosed with Embolic stroke, PFO, chronic left popliteal DVT and left saphenous venous thrombosis and started on Eliquis. Pt was discharged on the 10/27/19 and followed up with Dr. Mccall since discharge. Family member reports since discharge on 10/27/2019 patient had been doing well with memory and vision up until this morning. Patients family member at bedside to assist with additional history. Patient was having vision changes and was unable to see the clock in her bedroom, difficulty using household items including the TV remote. Patient also notes decreased appetit e, as well as a headache. She states she usually doesnt get headaches but noticed this headache was worse with lights and better in the dark. Denies fever, chills, cough or s putum production. patient sa id she went to the chiropractor the day prior to admission, but states no manipulations were done. Upon arrival to ED, patient was hypertensive at 159/88. She had an elevated troponin of 0.90. She appea rs to have had elevated troponins during her last admission, she was seen by cardiology who felt it was not an NSTEMI but a noncardiac trop leak. The ER physician spoke with Dr. Carlisle, who felt this was likely her baseline. a CTA chest was ordered to rule out any PE or dissection which was negative. Review of Systems 14 point ROS reviewed, pertinent positives as p er HPI Objective Vitals and Measurements T: 36.6 C (Oral) HR: 80 RR: 18 BP: 156/81 SpO2: 99% WT: 73 kg Physical Exam GENERAL: Nontoxic HEENT: Normocephalic NECK: supple, no rigidity. LUNGS: No crackles or wheezes. CV: RRR, normal S1/S2, GI: soft, normoactive bowel sounds : no suprapubic or flank tenderness. BACK: no spinal or paraspinal tenderness EXT: no edema SKIN: warm and dry, no ulcerations. NEURO: Cranial nerves 2-12 grossly intact Lab Results Common Labs - This Encounter, Most Recent, Last 24 hours Last 24 Hours Hematology-CBC 11/04/19 Coag 11/04/19 General Chemistry 11/04/19 WBC:11.2 (H) INR: 1.76 Sodium: 137 RBC: 4.14 PT:20.1 (H) Potassium: 3.7 Hgb: 13.1 PTT: 31.8 Chloride: 101 Hct: 38.8 CO2: 25 MCV: 93.9 Anion Gap: 15 MCH: 31.6 Glucose Level: 96 MCHC: 33.7 BUN:9 (L) RDW: 13.0 Creatinine: 0.66 Plt: 154 eGFR Non- Am: >60 Neuts: 78.9 eGFR Afr/Amer: >60 Lymphs:9.7 (L) Calcium: 8.8 Monos.: 9.3 Protein, Total:6.2 (L) Eos.: 1.1 Albumin: 3.5 Baso.: 1.0 Globulin: 2.7 ABS Neut:8.8 (H) A/G Ratio: 1.3 ABS Lymph: 1.1 Bili Total: 0.6 ABS [place]: 1.0 ALT: 22 ABS Eos: 0.1 AST:36 (H) ABS Baso: 0.1 Alkphos: 110 CBC Scan: Auto Diff POC Glucose 11/04/19 Cardiac 11/04/19 Glucose (POCT) Automated: 87 Troponin I:0.90 (!) Additional No qualifying data available. Diagnostic Results (11/04/2019 20:[address] [facility] [address] Code Stroke Head 2/Ble ed) IMPRESSION: No radiographic acute intra cranial abnormality. Possible mucocele within the right frontal sinus. [1] (11/04/2019 21:[address] [facility] [address] Angio Chest w Con) IMPRESSION: No PE. No aortic dissection. Micronodular infiltrates in RUL and RLL. Follow up. Probable granuloma or hamartoma in LLL. [2] Assessment/Plan Acute metabolic encephalopathy with recent CVA Troponin leak Migraine headache Recent CVA Superficial venous thrombosis Left Popliteal DVT PFO PLAN Recent CVA requiring hospitalization, will cont inue Eliquis, statin \ Given her hx of CAD and elevated troponins Given her recent stroke will order a repeat MRI and consult neurology Cardiology consult, Cardiol ogy felt that this was a troponin leak and not related to cardiac in nature. ER physician spoke with Dr. Carlisle, who felt this her baseline Fioricet as needed for migr colt headaches she has elevated troponins, and takes sumatriptan will need to hold at this time as it is contraindicated if there is underlying CAD Resume home medications once reconciled. Time spent with Patient Greater than 60 mins were s pent on patient care. Over 50% [id number] time with the patient including history of present illness, physical examination, reviewing labs,imaging, and discussing the optio ns and plan with the patient, nursing and hospit al staff Pt will be here for <2 midnights. This document was transcrib ed by yayo Ramirez for Provider: Dr. Saunders on 11/04/19. I, Tito Saunders, have revie wed and agree with all documentation in this transcribed note. Problem List/Past Medical History Ongoing Acute embolic stroke Acute superficial venous thrombosis of left low er extremity Deep venous thrombosis of left popliteal vein Elevated troponin Stroke Historical No qualifying data Procedure/Surgical History Bladder operation Carcinoma Hysterectomy Knee replacement Plantar fascia Rectal fistula Sclerotherapy of varicose vein Home Medications amLODIPine 2.5 mg oral tablet, 2.5 mg= 1 Tab, P O, qDay atorvastatin 20 mg oral tablet, 20 mg= 1 Tab, P O, qDay Calcium 600 +D Tab, 1 Tab, PO, TID cyclobenzaprine 10 mg oral tablet, TK 1 T PO TI D PRN Eliquis 5 mg oral tablet, S ee Instructions, 2 Tab PO BID x 7 days then 1 PO BID thereafter Outpatient ST, See Instruct ions, ST eval and tx for aphasia, cognition 3 x per week for 4 weeks SUMAtriptan 25 mg oral tabl et, 25 mg= 1 Tab, PO, qDay, PRN, may repeat dose after 2 hours up to a maximum of 200 mg in 24 hours Vitamin B12 50 mcg oral tablet, 50 mcg= 1 Tab, PO, qDay Vitamin D3 5,000 Unit oral capsule, 5000 Unit= 1 Cap, PO, qDay, with food Allergies NKA Reaction: None Documented Social History Alcohol Current, Wine, 1-2 times per month, 11/04/2019 Home/Environment Congregation restrictions/conc erns: None. Lives with Alone. Living situation: Home/Independent., 11/04/2019 Substance Abuse Denies, 11/04/2019 Tobacco Former smoker, quit more th an 30 days ago, Stopped age [age] Years., 11/04/2019 Family History mother CVA [1] CT Code Stroke Head 2/Bleed; LichaNelson Gracie Pascual 11/04/2019 20:07 MST [2] CT Angio Chest w Con; Acacia Haddad MD 11/04 21:35 MST Electronically Signed By: Tito Saunders MD On 11/05/19 02:02 Co Signature By: Modify Signature By: Zee Ramirez On 11/04/19 23:27 History and Physical Patient: JOSEPH VALDIVIA MA 10/26/2019 [facility] Age: 79 years Sex: F : 1940 Active Insu osman: MEDICARE [phone] [facility] Admitting MD: Isaiah Larkin MD Location: [facility] IPOA: IPOA: 08 PCP: Carol Ruff MD Author: Jg Frye MD SUBJECTIVE: f/u stroke the patient is seen and exam ined. The patient is doing well. she denies any chest pains. she reports remote Palpitations ROS: no abd pain, hematochezia, vomiting, hemat uria OBJECTIVE: NAD CTAB RRR no m/r/g SOFT NT/ND no C/CE Tele: SR Echo: AMBER: Small PFO ECG: NSR CT head:Prominent patchy hy podensity involving the periventricular and subcortical white matter most compatible with small vessel ischemic change. No acute infarct or bleed identified on current examination. Chronic appearing small left inferior cerebellar infarct. Chronic appearing right frontal and right maxill elissa sinus disease. Trop: 0.83, 0.77 Venous US:Nonocclusive smal l focus of deep venous thrombosis in the left popliteal vein. The findings suggest chronic deep venous thrombosis though there may be superimposed small focus of free floating thrombus along the cephalad portion. Medications amLODIPine 2.5 mg Tab: 2.5 mg, PO, qDay aspirin: 324 mg, Chew, qDay atorvastatin 40 mg Tab: 40 mg, PO, qHS docusate: 100 mg, PO, Daily sodium chloride: 10 mL, IV Push, q12hr IMPRESSION: - Stroke: Small, likely embolic - Trop Leak: Non-PA related - h/o GSV ablation - Small, chronic DVT: Non-occlusive - HTN - h/o GSV ablation PLAN: - treat with DAPT, statins - outpt Loop/MCT - stroke unlikely related to small PFO/chronic non-occlusive DVT. rule out A. fib fist. if she has A. fib, then she will need OAC - d/c per Neuro - f/u with Dr. Carlisle in one week Electronically Signed By: Jg Frye MD On 10/26/19 12:41 Co Signature By: Modify Signature By: History and Physical Patient: JOSEPH VALDIVIA MA 10/25/2019 [facility] Age: 79 years Sex: F : 1940 Active Ins urance: MEDICARE [phone] [facility] Admitting MD: Joseph Vera MD Location: [facility] IPOA: IPOA: 08 PCP: Carol Ruff MD Author: Renata Vera MD Subjective pt seen and examined this am most of her sx are resolved no fevers no n/v/d Review of Systems Constitutional: No fevers, chills, sweats Eye: No recent visual problems ENMT: No ear pain, nasal congestion, sore throa t Respiratory: No shortness of breath, cough Cardiovascular: No Chest pain, palpitations, sy ncope Gastrointestinal: No nausea, vomiting, diarrhea Genitourinary: No hematuria Objective Vitals and Measurements T: 36.6 C (Oral) TMIN: 36.5 C (Oral) TMAX: 36.7 C (Oral) HR: 76 RR: 16 BP: 145/82 SpO2: 96% Oxygen Method: Room air WT: 72.93 kg Physical Exam GEN: No acute distress, alert and oriented x 3 HEENT: oropharynx clear, mucous membranes moist NECK: supple, no jugular venous distention CV: regular rate and rhythm, no rubs or gallops PULM: clear to auscultation bilaterally, normal respiratory excursion ABD: soft, nontender, nondi stended, normoactive bowel sounds, no guarding or rebound. EXTR: no cyanosis, clubbing or edema NEURO: Non-focal, moves all extremities Lab Results Common Labs - This Encounter, Most Recent, Last 24 hours Last 24 Hours Hematology-CBC 10/25/19 Coag 10/25/19 General Chemistry 10/25/19 WBC: 6.7 INR: 1.24 Sodium: 137 RBC:3.82 (L) PT:14.1 (H) Potassium: 3.9 Hgb: 12.2 PTT: 29.9 Chloride: 104 Hct:35.9 (L) CO2: 25 MCV: 93.8 Anion Gap: 12 MCH: 32.0 Glucose Level:102 (H) MCHC: 34.1 BUN:8 (L) RDW: 13.5 Creatinine: 0.59 Plt: 171 eGFR Non- Am: >60 Neuts: 67.2 eGFR Afr/Amer: >60 Lymphs: 17.0 Calcium: 8.6 Monos.: 11.8 M.9 Eos.: 2.9 Protein, Total: 6.4 Baso.: 1.1 Albumin: 3.4 ABS Neut: 4.5 Globulin: 3.0 ABS Lymph: 1.1 A/G Ratio: 1.1 ABS [place]: 0.8 Bili Total: 0.4 ABS Eos: 0.2 ALT: 20 ABS Baso: 0.1 AST: 30 CBC Scan: Auto Diff Alkphos: 111 POC Glucose 10/25/19 Cardiac 10/25/19 Lipid Tests 10/25/19 Glucose (POCT) Automated: 101 Troponin I:0.77 (!) Cholesterol: 198 Triglycerides: 122 HDL:52 (L) LDL: 122 VLDL: 24 LDL/HDL: 2 Chol/Tri.62 %HDL: 26.3 Cholesterol/HDL: 4 Special Chemistry 10/25/19 TSH: 3.569 HgbA1C: 5.3 Estimated Average Glucose: 105 Additional Antibiotics Medications - This Encounter, All Results, Last 6 months Scheduled amLODIPine 2.5 mg Tab: 2.5 mg, PO, qDay aspirin: 324 mg, Chew, qDay atorvastatin 40 mg Tab: 40 mg, PO, qHS docusate: 100 mg, PO, Daily sodium chloride: 10 mL, IV Push, q12hr PRN cyclobenzaprine 5 mg Tab: 5 mg, PO, TID, PRN: S pasms sodium chloride: 10 mL, IV Push, Per Parameter, PRN: Other (see Comments) SUMAtriptan 25 mg Tab: 25 mg, PO, qDay, PRN: Ot her (see Comments) IV NaCl 0.9%: 100 mL/hr, IV, Stop: 11/23/19 20:23: 00 [facility] Diagnostic Results Assessment/Plan 1. Acute CVA suspect embolic source came in with expressive aphasia sx mostly resolved needs med management asa statins echo pending will likely need DAPT AND AC ON DC defer to neurologist neuro checks to cont 2. Htn pt is on amlodipine permissive ht following for now 3. hld resume her home dose of statins lipid panel this am 4. NSTEMI pt to be seen by cards this am consult was placed not started on ac overnight per cards stress vs angio will need further eval 5. migraines no current issues on sumatriptan which may need to be reevaluated in case of cad contraindicated. DVT GI PROPHYLAXIS DR LARKIN TO ASSUME CARE IN AM Code status: Full Code [id number]/[id number] Time spent with Patient OVER 30 MIN SPENT ON PT CARE TODAY Electronically Signed By: Renata Vera MD On 10/25/19 05:27 Co Signature By: Modify Signature By: History and Physical Patient: JOSEPH VALDIVIA MA 10/25/2019 [facility] Age: 79 years Sex: F : 1940 Active Ins urance: MEDICARE [phone] [facility] Admitting MD: Mauri Kee DO Location: [facility] IPOA: IPOA: 08 PCP: Carol Ruff MD Author: Sylvia Ackerman NP Patient seen 10/24/19 at 2300. Charting complet ed after midnight. Chief Complaint Several strokes in various parts of brain. History of Present Illness This is a very pleasant 79- year-old female with a PMH of migraines, hypertension, and HLD. She reports that 4 days ago she was having some difficulty with word finding, and so she went to her PCP who o rdered a MRI of her brain as well as carotid ultrasound. Her carotid ultrasound showed no significant stenosis on the right or the left, her MRI brain showed positive for stroke in a couple of different areas. Her MRI brain was se nt to Dr. Enrico Bueno who is her neurologist, and he advised that she come into the hospital to [facility] for further evaluation as well as a head CT. The patient reports that she has had gradual improvement in her speech and improvement with word finding. She denies any weakness on one side of her body or the other, facial droop, slurred speech, any changes in vision, any recent fa lls or head trauma. She stat es that she was a smoker for about 20 years but quit in 1979. She also reports that her grandmother had a stroke. The patient reports that she did take a full aspirin at home today, but has not taken her statin. Review of Systems 14 point systems reviewed a ll pertinent positives are listed above in history of present illness which included difficulty with word finding. Objective Vitals and Measurements T: 36.5 C (Oral) TMIN: 36.5 C (Oral) TMAX: 36.7 C (Oral) HR: 86 RR: 18 BP: 159/81 SpO2: 97% Oxygen Method: Room air WT: 72.93 kg Physical Exam GEN: No acute distress, alert and oriented x 3 HEENT: oropharynx clear, mucous membranes moist NECK: supple, no jugular venous distention CV: regular rate and rhythm, no rubs or gallops PULM: clear to auscultation bilaterally, normal respiratory excursion ABD: soft, nontender, nondi stended, normoactive bowel sounds, no guarding or rebound. EXTR: no cyanosis, clubbing or edema NEURO: PERRLA, 3 mm, brisk, smile is equal, raises eyebrows equally, puffs cheeks out equally, 6 signs of cardinal gaze are intact. Nose to finger point is int act bilaterally, no arm drift is noted welder oxyhydrogen on upper extremities bilaterally are equal 5/5. Lower extremity push pulls are equal 5/5 bilaterally. Gait is steady. Patient does have some difficulty with word finding or Says the wrong word and the n corrects herself. I do not appreciate any slurred speech with the patient. Lab Results Hematology-CBC 10/25/19 Coag 10/25/19 General Chemistry 10/25/19 WBC: 7.3 INR: 1.24 Sodium: 137 RBC: 4.13 PT:14.1 (H) Potassium: 4.0 Hgb: 13.3 PTT: 29.9 Chloride: 101 Hct: 38.9 CO2: 27 MCV: 94.1 Anion Gap: 13 MCH: 32.3 Glucose Level: 86 MCHC: 34.3 BUN: 10 RDW: 13.2 Creatinine: 0.62 Plt: 181 eGFR Non- Am: >60 Neuts: 67.3 eGFR Afr/Amer: >60 Lymphs: 17.3 Calcium: 9.2 Monos.: 11.9 Protein, Total: 6.4 Eos.: 2.6 Albumin: 3.4 Baso.: 0.9 Globulin: 3.0 ABS Neut: 4.9 A/G Ratio: 1.1 ABS Lymph: 1.3 Bili Total: 0.4 ABS [place]: 0.9 ALT: 20 ABS Eos: 0.2 AST: 30 ABS Baso: 0.1 Alkphos: 111 CBC Scan: Auto Diff POC Glucose 10/25/19 Cardiac 10/25/19 Glucose (POCT) Automated: 102 Troponin I:0.83 (!) Diagnostic Results MRI brain done at [facility] on 10/22/19 U/S carotid bilaterally also completed at [facility] on 10/22/19 Assessment/Plan 1. Acute CVA - asa, statin - MRI brain completed + for multiple areas of stroke (concern for embolic in nature) - U/S carotid done as an OP on 10/22/19 - no sig nificant stenosis - lipid panel - check TSH - ECHO + bubble in AM - Neuro checks - NIHSS - Neuro consult in AM - routine - Regular diet - passed swallow exam - PT/OT/ST in am - event occurred 4 days ago- keep systolic unde r 150 2. Migraines - sumatriptan 3. HLD - statin 4. HTN - amlodipine 5. Elevated troponin level - 12 lead EKG - no chest pain - replace lytes. Keep K+ 4.0 and Mg 2.0 - trend troponin - consult cardiology in AM - ECHO in AM - keep NPO after MN 6. VTE - SCDs Code status: Full Code 1123F/G8427 ALOS >2 midnights, neuro co nsult, cardiology consult, trend troponins, ECHO in AM. May need cath Time spent with Patient 70 minutes spent reviewing patient's chart, labs, imaging, placing orders. Greater than 50% of time spent with patient [id number]. Problem List/Past Medical History Ongoing No qualifying data Historical No qualifying data Home Medications amLODIPine 2.5 mg oral tablet, 2.5 mg= 1 Tab, P O, qDay atorvastatin 20 mg oral tablet, 20 mg= 1 Tab, P O, qDay biotin, PO, Daily Calcium 600 +D Tab, 1 Tab, PO, TID cyclobenzaprine 10 mg oral tablet, TK 1 T PO TI D PRN glucosamine hydrochloride 1500 mg oral tablet, 1500 mg= 1 Tab, PO, qDay SUMAtriptan 25 mg oral tabl et, 25 mg= 1 Tab, PO, qDay, PRN, may repeat dose after 2 hours up to a maximum of 200 mg in 24 hours Vitamin B12 50 mcg oral tablet, 50 mcg= 1 Tab, PO, qDay Vitamin D3 5,000 Unit oral capsule, 5000 Unit= 1 Cap, PO, qDay, with food Allergies NKA Reaction: None Documented Social History Alcohol Current, Wine, 1-2 times per month, 10/24/2019 Home/Environment Congregation restrictions/conc erns: None. Lives with Alone. Living situation: Home/Independent., 10/24/2019 Substance Abuse Denies, 10/24/2019 Tobacco Former smoker, quit more th an 30 days ago, Stopped age [age] Years., 10/24/2019 Electronically Signed By: Sylvia Ackerman NP On 10/25/19 01:39 Co Signature By: Modify Signature By: Sylvia Ackerman BALANCE ENGINEER On 10/25/19 01:38 Pt presented with headache, confusion, and expressive aphasia. Outside MRI by Dr. Mccall confirmed bilateral stroke. PMH: skin cancer A: Bilateral stroke, concerning for embolic type , elevated trop, HTN/HLP P: Continue aspirin and statin. Tele monitoring for afib. Cs Neuro. I have read the medical charles rd of this patient. I approve the care and treatment provided to this patient by the Nurse Practitioner. I also approve any history and physical, discharge summary, and all v erbal and written orders for the patient provide d by the Nurse Practitioner. Electronically Signed By: Celso Kee DO On 10/25/19 04:11 Co Signature By: Modify Signature By: Celso Kee DO On 10/25/19 04:11 Vital Signs Vital Sign Value Date Comments Source Temperature (c) 36.5 01/01/2022 [facility] Heart Rate (bpm) 72 01/01/2022 [facility] Respiratory Rate 20 Breaths/Min 01/01/2022 [facility] Oxygen Method Room air (01/01/22 01/01/2022 [facility] 1:17 PM) Medical Center Systolic (mm Hg) 98 01/01/2022 [facility] Diastolic (mm Hg) 51 01/01/2022 [facility] Heart Rate (bpm) 86 01/01/2022 [facility] Respiratory Rate 20 Breaths/Min 01/01/2022 [facility] Oxygen Method Room air (01/01/22 01/01/2022 [facility] 12:47 PM) Medical Center Systolic (mm Hg) 99 01/01/2022 [facility] Diastolic (mm Hg) 53 01/01/2022 [facility] Bed alarm on Yes (01/01/22 12:40 01/01/2022 [facility] PM) Medical Center Temperature (c) 36.5 01/01/2022 [facility] Heart Rate (bpm) 68 01/01/2022 [facility] Respiratory Rate 15 Breaths/Min 01/01/2022 [facility] Oxygen Method Room air (01/01/22 01/01/2022 [facility] 12:28 PM) Medical Center Systolic (mm Hg) 98 01/01/2022 [facility] Diastolic (mm Hg) 50 01/01/2022 [facility] Heart Rate (bpm) 80 01/01/2022 [facility] Respiratory Rate 20 Breaths/Min 01/01/2022 [facility] Oxygen Method Room air (01/01/22 01/01/2022 [facility] 11:58 AM) Medical Center Systolic (mm Hg) 90 01/01/2022 [facility] Diastolic (mm Hg) 50 01/01/2022 [facility] Heart Rate (bpm) 68 01/01/2022 [facility] Respiratory Rate 17 Breaths/Min 01/01/2022 [facility] Oxygen Method Room air (01/01/22 01/01/2022 [facility] 11:28 AM) Medical Center Systolic (mm Hg) 99 01/01/2022 [facility] Diastolic (mm Hg) 63 01/01/2022 [facility] Heart Rate (bpm) 68 01/01/2022 [facility] Respiratory Rate 18 Breaths/Min 01/01/2022 [facility] Oxygen Method Room air (01/01/22 01/01/2022 [facility] 11:13 AM) Medical Center Systolic (mm Hg) 110 01/01/2022 [facility] Diastolic (mm Hg) 56 01/01/2022 [facility] Heart Rate (bpm) 68 01/01/2022 [facility] Respiratory Rate 18 Breaths/Min 01/01/2022 [facility] Oxygen Method Room air (01/01/22 01/01/2022 [facility] 10:59 AM) Medical Center Systolic (mm Hg) 115 01/01/2022 [facility] Diastolic (mm Hg) 61 01/01/2022 [facility] Heart Rate (bpm) 66 01/01/2022 [facility] Respiratory Rate 20 Breaths/Min 01/01/2022 [facility] Oxygen Method Room air (01/01/22 01/01/2022 [facility] 10:44 AM) Medical Center Systolic (mm Hg) 108 01/01/2022 [facility] Diastolic (mm Hg) 58 01/01/2022 [facility] Heart Rate (bpm) 68 01/01/2022 [facility] Respiratory Rate 18 Breaths/Min 01/01/2022 [facility] Oxygen Method Room air (01/01/22 01/01/2022 [facility] 10:28 AM) Medical Center Systolic (mm Hg) 111 01/01/2022 [facility] Diastolic (mm Hg) 59 01/01/2022 [facility] Bed alarm on Yes (01/01/22 10:28 01/01/2022 [facility] AM) Medical Center Temperature (c) 36.6 01/01/2022 [facility] Heart Rate (bpm) 70 01/01/2022 [facility] Respiratory Rate 18 Breaths/Min 01/01/2022 [facility] Oxygen Method Room air (01/01/22 01/01/2022 [facility] 7:38 AM) Medical Center Systolic (mm Hg) 110 01/01/2022 [facility] Diastolic (mm Hg) 59 01/01/2022 [facility] Glucose Level (mg/dL) 99 01/01/2022 [facility] Sensory Deficits None (01/01/22 7:27 01/01/2022 [facility]) Medical Center Height (cm) 165.1 01/01/2022 [facility] Weight Method Stated (01/01/22 7:27 01/01/2022 [facility] Medical Center Drug Calc Weight (kg) 58.05 01/01/2022 [facility] BMI 21.3 01/01/2022 [facility] Heart Rate (bpm) 76 12/06/2021 [facility] Respiratory Rate 17 Breaths/Min 12/06/2021 [facility] SPO2 98 12/06/2021 [facility] NIBP Mean 70 12/06/2021 [facility] Systolic (mm Hg) 99 12/06/2021 [facility] Diastolic (mm Hg) 54 12/06/2021 [facility] Heart Rate (bpm) 74 12/06/2021 [facility] Respiratory Rate 13 Breaths/Min 12/06/2021 [facility] SPO2 97 12/06/2021 [facility] NIBP Mean 74 12/06/2021 [facility] Systolic (mm Hg) 101 12/06/2021 [facility] Diastolic (mm Hg) 54 12/06/2021 [facility] Oxygen Method Room air (12/05/21 12/06/2021 [facility] 7:00 PM) Medical Center Heart Rate (bpm) 76 12/06/2021 [facility] Respiratory Rate 18 Breaths/Min 12/06/2021 [facility] SPO2 97 12/06/2021 [facility] NIBP Mean 69 12/06/2021 [facility] Systolic (mm Hg) 94 12/06/2021 [facility] Diastolic (mm Hg) 50 12/06/2021 [facility] Oxygen Method Room air (12/05/21 12/06/2021 [facility] 6:00 PM) [facility] Heart Rate (bpm) 72 12/06/2021 [facility] Respiratory Rate 15 Breaths/Min 12/06/2021 [facility] SPO2 99 12/06/2021 [facility] NIBP Mean 71 12/06/2021 [facility] Systolic (mm Hg) 95 12/06/2021 [facility] Diastolic (mm Hg) 53 12/06/2021 [facility] Oxygen Method Room air (12/05/21 12/06/2021 [facility] 5:45 PM) Medical Center Heart Rate (bpm) 76 12/06/2021 [facility] SPO2 98 12/06/2021 [facility] NIBP Mean 74 12/06/2021 [facility] Respiratory Rate 20 Breaths/Min 12/06/2021 [facility] Systolic (mm Hg) 109 12/06/2021 [facility] Diastolic (mm Hg) 51 12/06/2021 [facility] Heart Rate (bpm) 70 12/05/2021 [facility] Respiratory Rate 18 Breaths/Min 12/05/2021 [facility] SPO2 97 12/05/2021 [facility] Systolic (mm Hg) 94 12/05/2021 [facility] Diastolic (mm Hg) 58 12/05/2021 [facility] NIBP Mean 70 12/05/2021 [facility] Heart Rate (bpm) 76 12/05/2021 [facility] Respiratory Rate 14 Breaths/Min 12/05/2021 [facility] SPO2 99 12/05/2021 [facility] NIBP Mean 73 12/05/2021 [facility] Systolic (mm Hg) 96 12/05/2021 [facility] Diastolic (mm Hg) 55 12/05/2021 [facility] Oxygen Method Room air (12/05/21 12/05/2021 [facility] 4:45 PM) Medical Center Heart Rate (bpm) 72 12/05/2021 [facility] Respiratory Rate 12 Breaths/Min 12/05/2021 [facility] SPO2 98 12/05/2021 [facility] NIBP Mean 74 12/05/2021 [facility] Systolic (mm Hg) 101 12/05/2021 [facility] Diastolic (mm Hg) 53 12/05/2021 [facility] Oxygen Method Room air (12/05/21 12/05/2021 [facility] 4:30 PM) Medical Center SPO2 97 12/05/2021 [facility] Heart Rate (bpm) 68 12/05/2021 [facility] NIBP Mean 74 12/05/2021 [facility] Respiratory Rate 15 Breaths/Min 12/05/2021 [facility] Systolic (mm Hg) 101 12/05/2021 [facility] Diastolic (mm Hg) 53 12/05/2021 [facility] Oxygen Method Room air (12/05/21 12/05/2021 [facility] 4:15 PM) Medical Center Systolic (mm Hg) 108 12/05/2021 [facility] Diastolic (mm Hg) 58 12/05/2021 [facility] SPO2 97 12/05/2021 [facility] Heart Rate (bpm) 74 12/05/2021 [facility] NIBP Mean 80 12/05/2021 [facility] Respiratory Rate 14 Breaths/Min 12/05/2021 [facility] Oxygen Method Room air (12/05/21 12/05/2021 [facility] 4:00 PM) Medical Center Pain Scale Numeric Rating Scale 12/05/2021 [facility] (12/05/21 1:06 PM) Medical [address] Sensory Deficits None (12/05/21 1:06 12/05/2021 [facility]) Medical Center Height (cm) 165.1 12/05/2021 [facility] Weight Method Stated (12/05/21 1:06 12/05/[address] [facility]) Medical Center Drug Calc Weight (kg) 58.05 12/05/2021 [facility] BMI 21.3 12/05/2021 [facility] Oxygen Method Room air (12/05/21 12/05/2021 [facility] 1:00 PM) Medical Center Glucose Level (mg/dL) 98 12/05/2021 [facility] Heart Rate (bpm) 68 01/29/2021 [facility] SPO2 96 01/29/2021 [facility] Systolic (mm Hg) 110 01/29/2021 [facility] Diastolic (mm Hg) 60 01/29/2021 [facility] Pain Scale Numeric Rating Scale 01/29/2021 [facility] (01/29/21 12:30 PM) Center Oxygen Method Room air (01/29/21 01/29/2021 [facility] 12:30 PM) Center Heart Rate (bpm) 68 01/29/2021 [facility] Systolic (mm Hg) 108 01/29/2021 [facility] Diastolic (mm Hg) 58 01/29/[address] [facility] NIBP Mean 81 01/29/2021 [facility] Oxygen Method Room air (01/29/21 01/29/2021 [facility] 12:00 PM) Center SPO2 96 01/29/2021 [facility] Heart Rate (bpm) 56 01/29/2021 [facility] NIBP Mean 83 01/29/2021 [facility] Systolic (mm Hg) 118 01/29/2021 [facility] Diastolic (mm Hg) 58 01/29/[address] [facility] Oxygen Method Room air (01/29/21 01/29/2021 [facility] 11:45 AM) Center Heart Rate (bpm) 56 01/29/2021 [facility] SPO2 97 01/29/2021 [facility] NIBP Mean 79 01/29/2021 [facility] Systolic (mm Hg) 108 01/29/2021 [facility] Diastolic (mm Hg) 56 01/29/[address] [facility] Oxygen Method Room air (01/29/21 01/29/2021 [facility] 11:30 AM) Center Heart Rate (bpm) 58 01/29/2021 [facility] SPO2 100 01/29/2021 [facility] NIBP Mean 80 01/29/2021 [facility] Systolic (mm Hg) 97 01/29/2021 [facility] Diastolic (mm Hg) 70 01/29/2021 [facility] Pain Scale Numeric Rating Scale 01/29/2021 [facility] (01/29/21 11:15 AM) Center Bed alarm on No (01/29/21 11:15 01/29/2021 [facility]) Center Oxygen Method Room air (01/29/21 01/29/2021 [facility] 11:15 AM) Center Heart Rate (bpm) 66 01/29/2021 [facility] SPO2 94 01/29/2021 [facility] Systolic (mm Hg) 108 01/29/2021 [facility] Diastolic (mm Hg) 56 01/29/2021 [facility] Oxygen Method Nasal cannula 01/29/2021 [facility] (01/29/21 11:00 AM) Center Oxygen Amount 2 L/min 01/29/2021 [facility] Respiratory Rate 16 Breaths/Min 01/29/2021 [facility] Heart Rate (bpm) 66 01/29/2021 [facility] SPO2 92 01/29/2021 [facility] Systolic (mm Hg) 100 01/29/2021 [facility] Diastolic (mm Hg) 53 01/29/[address] [facility] Oxygen Method Room air (01/29/21 01/29/2021 [facility] 10:55 AM) Center Respiratory Rate 16 Breaths/Min 01/29/2021 [facility] Systolic (mm Hg) 103 01/29/2021 [facility] Diastolic (mm Hg) 56 01/29/[address] [facility] Respiratory Rate 16 Breaths/Min 01/29/2021 [facility] Heart Rate (bpm) 64 01/29/2021 [facility] SPO2 97 01/29/2021 [facility] Oxygen Method Room air (01/29/21 01/29/2021 [facility] 10:50 AM) Center Pain Scale Non-verbal Pain 01/29/2021 [facility] Medical Scale ([facility]) Center (01/29/21 10:50 AM) Heart Rate (bpm) 64 01/29/2021 [facility] Respiratory Rate 16 Breaths/Min 01/29/2021 [facility] Oxygen Method Room air (01/29/21 01/29/2021 [facility] 10:45 AM) Center Pain Scale Non-verbal Pain [facility] (01/29/21 10:45 AM) SPO2 97 01/29/2021 [facility] Systolic (mm Hg) 104 01/29/2021 [facility] Diastolic (mm Hg) 55 01/29/[address] [facility] Heart Rate (bpm) 64 01/29/2021 [facility] Respiratory Rate 16 Breaths/Min 01/29/2021 [facility] Oxygen Method Nasal cannula 01/29/2021 [facility] (01/29/21 10:40 AM) Center Pain Scale Non-verbal Pain [facility] (01/29/21 10:40 AM) SPO2 97 01/29/2021 [facility] Systolic (mm Hg) 117 01/29/2021 [facility] Diastolic (mm Hg) 51 01/29/2021 [facility] Oxygen Amount 4 L/min 01/29/2021 [facility] Pain Scale Non-verbal Pain 01/29/2021 [facility] (01/29/21 10:38 AM) Respiratory Rate 16 Breaths/Min 01/29/2021 [facility] SPO2 96 01/29/2021 [facility] Oxygen Amount 4 L/min 01/29/2021 [facility] Pain Scale Non-verbal Pain 01/29/2021 [facility] (01/29/21 10:30 AM) Respiratory Rate 16 Breaths/Min 01/29/2021 [facility] Oxygen Amount 4 L/min 01/29/2021 [facility] Pain Scale Non-verbal Pain 01/29/2021 [facility] Scale ([facility]) Center (01/29/21 10:25 AM) Respiratory Rate 16 Breaths/Min 01/29/2021 [facility] Oxygen Amount 4 L/min 01/29/2021 [facility] Pain Scale Non-verbal Pain 01/29/2021 [facility] ([facility]) Center (01/29/21 10:24 AM) Respiratory Rate 16 Breaths/Min 01/29/2021 [facility] Oxygen Amount 4 L/min 01/29/2021 [facility] Pain Scale Non-verbal Pain 01/29/2021 [facility] Medical Scale ([facility]) Center (01/29/21 10:15 AM) Respiratory Rate 16 Breaths/Min 01/29/2021 [facility] Oxygen Amount 4 L/min 01/29/2021 [facility] Oxygen Amount 4 L/min 01/29/2021 [facility] Sensory Deficits None (01/29/21 8:37 01/29/2021 [facility]) Center Height (cm) 165.1 01/29/2021 [facility] Weight Method Stated (01/29/21 8:37 01/29/2021 [facility]) Center Drug Calc Weight (kg) 59.864 01/29/2021 [facility] BMI 21.96 01/29/2021 [facility] Glucose Level (mg/dL) 98 01/29/2021 [facility] Pain Scale Numeric Rating Scale [facility] (06/03/20 10:27 AM) Medical C enter Living Situation Lives with children 06/03/2020 [facility] dler [facility] (06/03/20 9:35 AM) Medical Ce nter Sensory Deficits None (06/03/20 9:35 06/03/2020 [facility]) Medical Center Current Living Home/Independent 06/03/2020 [facility] Environment (06/03/20 9:35 AM) Medical Ce nter Lives In (SW) Single level home 06/03/2020 [facility] (06/03/20 9:35 AM) Medical Ce nter Lives With (SW) Child(ulises) (06/03/20 06/03/2020 [facility] 9:35 AM) Medical Center Eating Self (06/03/20 9:35 06/03/2020 [facility]) Medical Center Bathing Self (06/03/20 9:35 06/03/2020 [facility]) Medical Center Dressing Self (06/03/20 9:35 06/03/2020 [facility]) Medical Center Transferring Self (06/03/20 9:35 06/03/2020 [facility]) Medical Center Toileting Self (06/03/20 9:35 06/03/2020 [facility]) Medical Center Walking With 1 person 06/03/2020 [facility]assistive [facility] device (06/03/20 9:35 AM) Balancing With 1 person 06/03/2020 [facility]assistive [facility] device (06/03/20 9:35 AM) Current Home Home health (06/03/20 06/03/2020 [facility] Treatments 9:35 AM) Medical Center Respiratory Rate 17 Breaths/Min 06/03/2020 [facility] Oxygen Method Room air (06/03/20 06/03/2020 [facility] 8:52 AM) Medical Center Bed alarm on No (06/03/20 8:52 AM) 06/03/2020 [facility] Temperature (c) 36.3 06/03/2020 [facility] Heart Rate (bpm) 66 06/03/2020 [facility] SPO2 91 06/03/2020 [facility] Systolic (mm Hg) 115 06/03/2020 [facility] Diastolic (mm Hg) 60 06/03/2020 [facility] Bed alarm on No (06/03/20 3:00 AM) 06/03/2020 [facility] Pain Scale Numeric Rating Scale 06/03/2020 [facility] (06/03/20 2:32 AM) Medical Ce nter Pain Scale Numeric Rating Scale 06/03/2020 [facility] (06/03/20 2:02 AM) Medical Ce nter Pain Scale Numeric Rating Scale 06/03/2020 [facility] (06/02/20 11:08 PM) Medical C enter Bed alarm on No (06/02/20 11:08 06/03/2020 [facility]) Medical Center Temperature (c) 37 06/03/2020 [facility] Heart Rate (bpm) 63 06/03/2020 [facility] Respiratory Rate 18 Breaths/Min 06/03/2020 [facility] Oxygen Method Room air (06/02/20 06/03/2020 [facility] 8:57 PM) Medical Center SPO2 94 06/03/2020 [facility] Systolic (mm Hg) 97 06/03/2020 [facility] Diastolic (mm Hg) 57 06/03/2020 [facility] Pain Scale Numeric Rating Scale 06/03/2020 [facility] (06/02/20 8:00 PM) Medical Ce nter Pain Scale Numeric Rating Scale 06/03/2020 [facility] (06/02/20 6:37 PM) Medical Ce nter Pain Scale Numeric Rating Scale 06/02/2020 [facility] (06/02/20 4:00 PM) Medical Ce nter Pain Scale Numeric Rating Scale 06/02/2020 [facility] (06/02/20 3:45 PM) Medical Ce nter Pain Scale Numeric Rating Scale 06/02/2020 [facility] (06/02/20 1:43 PM) Medical Ce nter Pain Scale Numeric Rating Scale 06/02/2020 [facility] (06/02/20 1:13 PM) Medical Ce nter Systolic (mm Hg) 115 06/02/2020 [facility] Diastolic (mm Hg) 66 06/02/2020 [facility] Heart Rate (bpm) 63 06/02/2020 [facility] Temperature (c) 36.5 06/02/2020 [facility] Heart Rate (bpm) 63 06/02/2020 [facility] Respiratory Rate 17 Breaths/Min 06/02/2020 [facility] Oxygen Method Room air (06/02/20 06/02/2020 [facility] 8:00 AM) Medical Center SPO2 95 06/02/2020 [facility] Systolic (mm Hg) 115 06/02/2020 [facility] Diastolic (mm Hg) 66 06/02/2020 [facility] Glucose Level (mg/dL) 101 06/02/2020 [facility] Temperature (c) 36.8 06/02/2020 [facility] Heart Rate (bpm) 68 06/02/2020 [facility] Respiratory Rate 16 Breaths/Min 06/02/2020 [facility] Oxygen Method Room air (06/02/20 06/02/2020 [facility] 4:15 AM) Medical Center SPO2 95 06/02/2020 [facility] Systolic (mm Hg) 105 06/02/2020 [facility] Diastolic (mm Hg) 57 06/02/2020 [facility] Temperature (c) 36.9 06/02/2020 [facility] Heart Rate (bpm) 70 06/02/2020 [facility] Respiratory Rate 16 Breaths/Min 06/02/2020 [facility] Oxygen Method Room air (06/01/20 06/02/2020 [facility] 9:06 PM) Medical Center SPO2 94 06/02/2020 [facility] Systolic (mm Hg) 97 06/02/2020 [facility] Diastolic (mm Hg) 52 06/02/2020 [facility] Temperature (c) 36.7 06/01/2020 [facility] Heart Rate (bpm) 63 06/01/2020 [facility] Respiratory Rate 18 Breaths/Min 06/01/2020 [facility] Oxygen Method Room air (06/01/20 06/01/2020 [facility] 4:51 PM) Medical Center SPO2 95 06/01/2020 [facility] Systolic (mm Hg) 109 06/01/2020 [facility] Diastolic (mm Hg) 55 06/01/2020 [facility] Oxygen Amount 2 L/min 06/01/2020 [facility] Temperature (c) 36.7 06/01/2020 [facility] Systolic (mm Hg) 107 06/01/2020 [facility] Diastolic (mm Hg) 50 06/01/2020 [facility] Heart Rate (bpm) 74 06/01/2020 [facility] Respiratory Rate 16 Breaths/Min 06/01/2020 [facility] SPO2 95 06/01/2020 [facility] Oxygen Method Nasal cannula 06/01/2020 [facility] (06/01/20 12:00 PM) Medical C enter Oxygen Method Nasal cannula 06/01/2020 [facility] (06/01/20 9:02 AM) Medical Ce nter Oxygen Amount 2 L/min 06/01/2020 [facility] Temperature (c) 37.3 06/01/2020 [facility] Heart Rate (bpm) 65 06/01/2020 [facility] Respiratory Rate 16 Breaths/Min 06/01/2020 [facility] SPO2 97 06/01/2020 [facility] Systolic (mm Hg) 92 06/01/2020 [facility] Diastolic (mm Hg) 53 06/01/2020 [facility] Temperature (c) 37.1 06/01/2020 [facility] Respiratory Rate 18 Breaths/Min 06/01/2020 [facility] SPO2 96 06/01/2020 [facility] Temperature (c) 37.2 06/01/2020 [facility] Respiratory Rate 18 Breaths/Min 06/01/2020 [facility] SPO2 97 06/01/2020 [facility] Oxygen Method Nasal cannula 06/01/2020 [facility] (05/31/20 8:35 PM) Medical Ce nter Oxygen Amount 2 L/min 06/01/2020 [facility] Sensory Deficits None (05/31/20 3:31 05/31/2020 [facility]) Medical Center Living Situation Lives with children 05/31/2020 [facility] (05/31/20 3:31 PM) Medical Ce nter Eating Self (05/31/20 3:31 05/31/2020 [facility]) [facility] Bathing With 1 person 05/31/2020 [facility]assistive [facility] device (05/31/20 3:31 PM) Dressing With 1 person 05/31/2020 [facility] (05/31/20 3:31 PM) Transferring With 1 person 05/31/2020 [facility] (05/31/20 3:31 PM) Toileting With 1 person 05/31/2020 [facility] (05/31/20 3:31 PM) Walking With 1 person 05/31/2020 [facility] (05/31/20 3:31 PM) Balancing With 1 person 05/31/2020 [facility] [facility] (05/31/20 3:31 PM) Height (cm) 165.1 05/31/2020 [facility] Weight Method Stated (05/31/20 3:31 05/31/2020 [facility] Center Drug Calc Weight (kg) 63.4 05/31/2020 [facility] BMI 23.26 05/31/2020 [facility] NIBP Mean 79 05/31/2020 [facility] NIBP Mean 77 05/31/2020 [facility] NIBP Mean 84 05/31/2020 [facility] NIBP Mean 80 05/31/2020 [facility] NIBP Mean 75 05/31/2020 [facility] NIBP Mean 82 05/31/2020 [facility] NIBP Mean 74 05/31/2020 [facility] Oxygen Method Nasal cannula 05/31/2020 [facility] (05/31/20 12:40 PM) Medical C enter Oxygen Amount 2 L/min 05/31/2020 [facility] NIBP Mean 95 05/31/2020 [facility] NIBP Mean 94 05/31/2020 [facility] NIBP Mean 105 05/31/2020 [facility] Temperature (c) 36.7 05/31/2020 [facility] Oxygen Amount 8 L/min 05/31/2020 [facility] Temperature (c) 36.2 05/31/2020 [facility] Height (cm) 165.1 05/31/2020 [facility] Weight Method Actual (05/31/20 8:59 05/31/2020 [facility] AM) [facility] Drug Calc Weight (kg) 63.447 05/31/2020 [facility] BMI 23.28 05/31/2020 [facility] Height (cm) 165.1 05/28/2020 [facility] Weight Method Stated (05/28/20 4:33 05/28/2020 [facility] PM) [facility] Drug Calc Weight (kg) 61.678 05/28/2020 [facility] BMI 22.63 05/28/2020 [facility] Temperature (c) 36.5 12/17/2019 [facility] Systolic (mm Hg) 125 12/17/2019 [facility] Diastolic (mm Hg) 72 12/17/2019 [facility] Heart Rate (bpm) 72 12/17/2019 [facility] Respiratory Rate 18 Breaths/Min 12/17/2019 [facility] Oxygen Method Room air (12/16/19 12/17/2019 [facility] 5:00 PM) Medical Center SPO2 97 12/17/2019 [facility] Pain Scale Numeric Rating Scale 12/16/2019 [facility] (12/16/19 4:00 PM) Medical Ce nter Temperature (c) 36.4 12/16/2019 [facility] Heart Rate (bpm) 77 12/16/2019 [facility] Respiratory Rate 16 Breaths/Min 12/16/2019 [facility] Oxygen Method Room air (12/16/19 12/16/2019 [facility] 12:00 PM) Medical Center SPO2 98 12/16/2019 [facility] Systolic (mm Hg) 136 12/16/2019 [facility] Diastolic (mm Hg) 79 12/16/2019 [facility] Pain Scale Numeric Rating Scale 12/16/2019 [facility] (12/16/19 12:00 PM) Medical C enter Temperature (c) 36.5 12/16/2019 [facility] Heart Rate (bpm) 84 12/16/2019 [facility] Respiratory Rate 16 Breaths/Min 12/16/2019 [facility] Oxygen Method Room air (12/16/19 12/16/2019 [facility] 9:00 AM) Medical Center SPO2 97 12/16/2019 [facility] Systolic (mm Hg) 120 12/16/2019 [facility] Diastolic (mm Hg) 76 12/16/2019 [facility] Bed alarm on Yes (12/16/19 8:00 [facility] Pain Scale Numeric Rating Scale 12/16/2019 [facility] (12/16/19 8:00 AM) Medical Ce nter Bed alarm on No (12/16/19 4:00 AM) 12/16/2019 [facility] Daily Weight 70 12/16/2019 [facility] Temperature (c) 36.7 12/16/2019 [facility] Systolic (mm Hg) 125 12/16/2019 [facility] Diastolic (mm Hg) 74 12/16/2019 [facility] Heart Rate (bpm) 82 12/16/2019 [facility] Respiratory Rate 18 Breaths/Min 12/16/2019 [facility] Oxygen Method Room air (12/16/19 12/16/2019 [facility] 3:30 AM) Medical Center SPO2 93 12/16/2019 [facility] Bed alarm on No (12/16/19 3:30 AM) 12/16/2019 [facility] Glucose Level (mg/dL) 114 12/16/2019 [facility] Heart Rate (bpm) 77 12/16/2019 [facility] Respiratory Rate 16 Breaths/Min 12/16/2019 [facility] Oxygen Method Room air (12/16/19 12/16/2019 [facility] 12:10 AM) Medical Center SPO2 93 12/16/2019 [facility] Systolic (mm Hg) 115 12/16/2019 [facility] Diastolic (mm Hg) 70 12/16/2019 [facility] Heart Rate (bpm) 79 12/16/2019 [facility] Respiratory Rate 18 Breaths/Min 12/16/2019 [facility] Oxygen Method Room air (12/15/19 12/16/2019 [facility] 11:30 PM) Medical Center SPO2 95 12/16/2019 [facility] Systolic (mm Hg) 114 12/16/2019 [facility] Diastolic (mm Hg) 69 12/16/2019 [facility] Heart Rate (bpm) 83 12/16/2019 [facility] Respiratory Rate 18 Breaths/Min 12/16/2019 [facility] Oxygen Method Room air (12/15/19 12/16/2019 [facility] 11:00 PM) Medical Center SPO2 95 12/16/2019 [facility] Systolic (mm Hg) 102 12/16/2019 [facility] Diastolic (mm Hg) 65 12/16/2019 [facility] Temperature (c) 36.7 12/16/2019 [facility] Heart Rate (bpm) 77 12/16/2019 [facility] Respiratory Rate 18 Breaths/Min 12/16/2019 [facility] Oxygen Method Room air (12/15/19 12/16/2019 [facility] 10:00 PM) Medical Center SPO2 97 12/16/2019 [facility] Systolic (mm Hg) 118 12/16/2019 [facility] Diastolic (mm Hg) 75 12/16/2019 [facility] Temperature (c) 36.9 12/16/2019 [facility] Respiratory Rate 16 Breaths/Min 12/16/2019 [facility] Oxygen Method Room air (12/15/19 12/16/2019 [facility] 7:00 PM) Medical Center SPO2 96 12/16/2019 [facility] Systolic (mm Hg) 108 12/16/2019 [facility] Diastolic (mm Hg) 69 12/16/2019 [facility] Respiratory Rate 16 Breaths/Min 12/15/2019 [facility] Oxygen Method Room air (12/15/19 12/15/2019 [facility] 4:00 PM) Medical Center SPO2 98 12/15/2019 [facility] Systolic (mm Hg) 119 12/15/2019 [facility] Diastolic (mm Hg) 70 12/15/2019 [facility] Temperature (c) 36.5 12/15/2019 [facility] Pain Scale Hickman-Epps/FACES 12/15/2019 [facility] (12/15/19 4:00 PM) Medical Ce nter Living Situation Lives with family 12/15/2019 [facility] (12/15/19 3:45 PM) Medical Ce nter Pain Scale Hickman-Epps/FACES 12/15/2019 [facility] (12/15/19 12:00 PM) Medical C enter Temperature (c) 36.9 12/15/2019 [facility] Heart Rate (bpm) 78 12/15/2019 [facility] Pain Scale Hickman-Epps/FACES 12/15/2019 [facility] (12/15/19 8:00 AM) Medical Ce nter Temperature (c) 36.8 12/15/2019 [facility] Heart Rate (bpm) 78 12/15/2019 [facility] Daily Weight 70.2 12/15/2019 [facility] Daily Weight 70.2 12/15/2019 [facility] Glucose Level (mg/dL) 107 12/15/2019 [facility] Pain Scale Hickman-Epps/FACES 12/15/2019 [facility] (12/15/19 4:00 AM) Medical Ce nter Pain Scale Numeric Rating Scale 12/15/2019 [facility] (12/15/19 12:00 AM) Medical C enter Temperature (c) 37.1 12/15/2019 [facility] Pain Scale Numeric Rating Scale 12/15/2019 [facility] (12/14/19 8:00 PM) Medical Ce nter Height 65.98 [in_i] 12/15/2019 [facility] Pain Scale Numeric Rating Scale 12/14/2019 [facility] (12/14/19 4:00 PM) Medical Ce nter Height (cm) 167.6 12/14/2019 [facility] Glucose Level (mg/dL) 102 12/14/2019 [facility] Daily Weight 69.4 12/14/2019 [facility] Glucose Level (mg/dL) 129 12/13/2019 [facility] Living Situation Lives with family 12/12/2019 [facility] (12/12/19 3:05 PM) Medical Ce nter Living Situation Lives with family 12/12/2019 [facility] (12/12/19 12:20 PM) Medical C enter Height (cm) 167.6 12/12/2019 [facility] Glucose Level (mg/dL) 110 12/12/2019 [facility] Oxygen Amount 1 L/min 12/11/2019 [facility] Daily Weight 70.6 12/11/2019 [facility] Oxygen Amount 2 L/min 12/11/2019 [facility] Oxygen Amount 2 L/min 12/11/2019 [facility] Oxygen Amount 2 L/min 12/10/2019 [facility] Glucose (POCT) 135 12/10/2019 [facility] Oxygen Amount 2 L/min 12/10/2019 [facility] Oxygen Amount 2 L/min 12/10/2019 [facility] Daily Weight 69.3 12/10/2019 [facility] Oxygen Amount 1 L/min 12/10/2019 [facility] Oxygen Amount 2 L/min 12/10/2019 [facility] Temperature (c) 37.1 12/08/2019 [facility] Daily Weight 71.8 12/08/2019 [facility] Weight Method Actual (12/08/19 4:00 12/08/2019 [facility] AM) Medical [place] Face NVPS 2 = Frequent 12/08/2019 [facility] grimace, tearing, Medical Ce nter frowning, wrinkled forehead (12/07/19 8:17 PM) Activity NVPS 1 = Seeks attention 12/08/2019 [facility] with movement or [facility] [address] slow cautious movement (12/07/19 8:17 PM) Guarding NVPS 0 = Lies quietly, no 12/08/2019 [facility] positioning of [facility] over areas of body (12/07/19 8:17 PM) Physiology NVPS 0 = Stable vital 12/08/2019 [facility] signs (12/07/19 8:17 Medical C enter PM) Respiratory NVPS 0 = Baseline RR/Sp02 12/08/2019 [facility] compliant with Medical Cente r ventilator (12/07/19 8:17 PM) NVPS Score 3 12/08/2019 [facility] Height (cm) 167.6 12/07/2019 [facility] Oxygen Amount 2 L/min 12/07/2019 [facility] Oxygen Amount 2 L/min 12/07/2019 [facility] Glucose Level (mg/dL) 102 12/07/2019 [facility] Daily Weight 71.6 12/07/2019 [facility] Daily Weight 73.5 12/06/2019 [facility] Glucose Level (mg/dL) 89 12/06/2019 [facility] Face NVPS 1 = Occasional 12/06/2019 [facility] on[facility] grimace, tearing, Medical Ce nter frowning, wrinkled forehead (12/05/19 9:00 PM) Activity NVPS 1 = Seeks attention 12/06/2019 [facility] with movement or [facility] [address] [facility] slow cautious movement (12/05/19 9:00 PM) Guarding NVPS 1 = Splinting areas 12/06/2019 [facility] of the body, tense Medical C enter (12/05/19 9:00 PM) Physiology NVPS 0 = Stable vital 12/06/2019 [facility] signs (12/05/19 9:00 Medical C enter PM) Respiratory NVPS 0 = Baseline RR/Sp02 12/06/2019 [facility] compliant with Medical Cente r ventilator (12/05/19 9:00 PM) Glucose Level (mg/dL) 91 12/05/2019 [facility] Height (cm) 165 12/04/2019 [facility] Daily Weight 74 12/04/2019 [facility] Glucose Level (mg/dL) 94 12/04/2019 [facility] Glucose Level (mg/dL) 108 12/03/2019 [facility] Weight Method Actual (12/02/19 6:00 12/02/2019 [facility] AM) [facility] Glucose (POCT) 95 11/30/2019 [facility] Glucose (POCT) 98 11/30/2019 [facility] Glucose (POCT) 109 11/30/2019 [facility] Height (cm) 165 11/30/2019 [facility] Current Living Home with assistance 11/28/2019 [facility] Environment (11/28/19 3:30 PM) Medical Ce nter Lives In (SW) Single level home 11/28/2019 [facility] (11/28/19 3:30 PM) Medical Ce nter Lives With (SW) Child(ulises) (11/28/19 11/28/2019 [facility] 3:30 PM) Medical Center Eating With 1 person 11/28/2019 [facility]assistive [facility] device (11/28/19 3:30 PM) Bathing With 1 person 11/28/2019 [facility] assist[facility]assistive [facility] device (11/28/19 3:30 PM) Dressing With 1 person 11/28/2019 [facility]assistive [facility] device (11/28/19 3:30 PM) Transferring With 1 person 11/28/2019 [facility] assist[facility]assistive [facility] device (11/28/19 3:30 PM) Toileting With 1 person 11/28/2019 [place] [facility]istive [facility] (11/28/19 3:30 PM) Walking With 1 person 11/28/2019 [place] [facility]assistive [facility] (11/28/19 3:30 PM) Balancing With 1 person 11/28/2019 [place] [facility]assistive [facility] device (11/28/19 3:30 PM) Current Home None (11/28/19 3:30 11/28/2019 [facility] PM) [facility] Sensory Deficits None (11/28/19 3:30 11/28/2019 [facility]) [facility] FIO2 - pt care 21 11/28/2019 [facility] Defic[facility] None (11/27/19 9:41 11/28/2019 [facility]) [facility] Eating With 1 person 11/28/2019 [place] [facility]assistive [facility] device (11/27/19 9:41 PM) Bathing With 1 person 11/28/2019 [place] [facility]assistive [facility] device (11/27/19 9:41 PM) Dressing With 1 person 11/28/2019 [place] [facility]assistive [facility] device (11/27/19 9:41 PM) Transferring With 1 person 11/28/2019 [place] [facility]assistive [facility] device (11/27/19 9:41 PM) Toileting With 1 person 11/28/2019 [place] [facility]assistive [facility] device (11/27/19 9:41 PM) Walking With 1 person 11/28/2019 [place] [facility]assistive [facility] device (11/27/19 9:41 PM) Balancing With 1 person 11/28/2019 [place] [facility]assistive [facility] device (11/27/19 9:41 PM) Height (cm) 167.6 11/28/2019 [facility] Weight Method Actual (11/27/19 9:41 11/28/2019 [facility]) [facility] Drug Calc Weight (kg) 73.1 11/28/2019 [facility] BMI 26.02 11/28/2019 [facility] NIBP Mean 94 11/27/2019 [facility] NIBP Mean 105 11/27/2019 [facility] Sensory Deficits None (11/27/19 10:35 11/27/2019 [facility] zahira [facility]) Medical Center Height (cm) 167.64 11/27/2019 [facility] Weight Method Stated (11/27/19 11/27/2019 [facility] [email or web address] 10:35 AM) Medical Center Drug Calc Weight (kg) 72.562 11/27/2019 [facility] BMI 25.82 11/27/2019 [facility] Heart Rate (bpm) 80 11/25/2019 [facility] Systolic (mm Hg) 130 11/25/2019 [facility] Diastolic (mm Hg) 72 11/25/2019 [facility] Systolic (mm Hg) 130 11/25/2019 [facility] Diastolic (mm Hg) 72 11/25/2019 [facility] Heart Rate (bpm) 80 11/25/2019 [facility] Temperature (c) 36.4 11/25/2019 [facility] Systolic (mm Hg) 130 11/25/2019 [facility] Diastolic (mm Hg) 72 11/25/2019 [facility] Heart Rate (bpm) 80 11/25/2019 [facility] Respiratory Rate 18 Breaths/Min 11/25/2019 [facility] Oxygen Method Room air (11/25/19 11/25/2019 [facility] 4:00 AM) [facility] SPO2 96 11/25/2019 [facility] Bed alarm on Yes (11/25/19 4:00 11/25/2019 [facility]) [facility] Bed alarm on Yes (11/25/19 2:00 11/25/2019 [facility] Pain Scale Numeric Rating Scale 11/25/2019 [facility] (11/25/19 1:35 AM) [facility] [facility] Pain Scale Numeric Rating Scale 11/25/2019 [facility] (11/25/19 1:05 AM) [facility] Bed alarm on Yes (11/25/19 12:00 11/25/2019 [facility]) [facility] Temperature (c) 36.6 11/25/2019 [facility] Systolic (mm Hg) 142 11/25/2019 [facility] Diastolic (mm Hg) 85 11/25/2019 [facility] Heart Rate (bpm) 80 11/25/2019 [facility] Respiratory Rate 18 Breaths/Min 11/25/2019 [facility] Oxygen Method Room air (11/24/19 11/25/2019 [facility] 8:00 PM) [facility] SPO2 98 11/25/2019 [facility] Glucose Level (mg/dL) 130 11/25/2019 [facility] Temperature (c) 36.3 11/24/2019 [facility] Systolic (mm Hg) 121 11/24/2019 [facility] Diastolic (mm Hg) 70 11/24/2019 [facility] Heart Rate (bpm) 91 11/24/2019 [facility] Respiratory Rate 18 Breaths/Min 11/24/2019 [facility] Oxygen Method Room air (11/24/19 11/24/2019 [facility] 2:00 PM) [facility] SPO2 95 11/24/2019 [facility] Glucose Level (mg/dL) 95 11/24/2019 [facility] Temperature (c) 37.1 11/24/2019 [facility] Systolic (mm Hg) 114 11/24/2019 [facility] Diastolic (mm Hg) 60 11/24/2019 [facility] Heart Rate (bpm) 89 11/24/2019 [facility] Respiratory Rate 18 Breaths/Min 11/24/2019 [facility] Oxygen Method Room air (11/24/19 11/24/2019 [facility] 4:15 AM) [facility] SPO2 92 11/24/2019 [facility] Glucose Level (mg/dL) 109 11/24/2019 [facility] Temperature (c) 36.8 11/24/2019 [facility] [place] Systolic (mm Hg) 104 11/24/2019 [facility] Diastolic (mm Hg) 62 11/24/2019 [facility] Heart Rate (bpm) 95 11/24/2019 [facility] Respiratory Rate 18 Breaths/Min 11/24/2019 [facility] Oxygen Method Room air (11/23/19 11/24/2019 [facility] 7:15 PM) [facility] SPO2 96 11/24/2019 [facility] Pain Scale Non-verbal Pain 11/24/2019 [facility] ([facility]) [facility] (11/23/19 7:00 PM) [facility] Temperature (c) 36.5 11/23/2019 [facility] [place] Systolic (mm Hg) 119 11/23/2019 [facility] Diastolic (mm Hg) 58 11/23/2019 [facility] Heart Rate (bpm) 90 11/23/2019 [facility] Respiratory Rate 18 Breaths/Min 11/23/2019 [facility] Oxygen Method Room air (11/23/19 11/23/2019 [facility] 2:00 PM) [facility] SPO2 95 11/23/2019 [facility] Glucose Level (mg/dL) 102 11/23/2019 [facility] Temperature (c) 36.6 11/23/2019 [facility] [place] Systolic (mm Hg) 128 11/23/2019 [facility] Diastolic (mm Hg) 70 11/23/2019 [facility] Heart Rate (bpm) 100 11/23/2019 [facility] Respiratory Rate 16 Breaths/Min 11/23/2019 [facility] SPO2 93 11/23/2019 [facility] Pain Scale Numeric Rating Scale 11/23/2019 [facility] (11/23/19 2:00 AM) [facility] Oxygen Method Room air (11/22/19 11/23/2019 [facility] 8:00 PM) [facility] Temperature (c) 35.6 11/23/2019 [facility] [place] Systolic (mm Hg) 122 11/23/2019 [facility] Diastolic (mm Hg) 63 11/23/2019 [facility] Heart Rate (bpm) 97 11/23/2019 [facility] Respiratory Rate 16 Breaths/Min 11/23/2019 [facility] SPO2 95 11/23/2019 [facility] Temperature (c) 36.4 11/22/2019 [facility] [place] Respiratory Rate 16 Breaths/Min 11/22/2019 [facility] Oxygen Method Room air (11/22/19 11/22/2019 [facility] 12:00 PM) [facility] SPO2 94 11/22/2019 [facility] Glucose Level (mg/dL) 111 11/22/2019 [facility] Temperature (c) 36.8 11/22/2019 [facility] [place] Respiratory Rate 16 Breaths/Min 11/22/2019 [facility] SPO2 91 11/22/2019 [facility] Oxygen Method Room air (11/21/19 11/22/2019 [facility] 9:00 PM) [facility] Pain Scale Numeric Rating Scale 11/22/2019 [facility] (11/21/19 8:00 PM) [facility] Oxygen Method Room air (11/21/19 11/21/2019 [facility] 1:00 PM) [facility] Pain Scale Numeric Rating Scale 11/21/2019 [facility] (11/21/19 8:00 AM) [facility] Glucose Level (mg/dL) 96 11/21/2019 [facility] Pain Scale Numeric Rating Scale 11/20/2019 [facility] (11/20/19 12:00 PM) [facility] Glucose Level (mg/dL) 111 11/20/2019 [facility] Pain Scale Numeric Rating Scale 11/20/2019 [facility] (11/19/19 8:00 PM) [facility] Tympanic Temp 35.7 11/19/2019 [facility] Daily Weight 72.4 11/19/2019 [facility] Weight Method Actual (11/19/19 11/19/2019 [facility] 11:00 AM) [facility] Pain Scale Numeric Rating Scale 11/19/2019 [facility] (11/19/19 8:12 AM) [facility] Glucose Level (mg/dL) 152 11/19/2019 [facility] Glucose Level (mg/dL) 115 11/18/2019 [facility] Glucose Level (mg/dL) 137 11/17/2019 [facility] Glucose Level (mg/dL) 122 11/17/2019 [facility] Glucose Level (mg/dL) 109 11/16/2019 [facility] Glucose Level (mg/dL) 106 11/16/2019 [facility] Pain Scale Numeric Rating Scale 11/16/2019 [facility] (11/15/19 6:00 PM) [facility] Heart Rate (bpm) 76 11/15/2019 [facility] Respiratory Rate 20 Breaths/Min 11/15/2019 [facility] SPO2 97 11/15/2019 [facility] NIBP Mean 108 11/15/2019 [facility] Systolic (mm Hg) 149 11/15/2019 [facility] Diastolic (mm Hg) 82 11/15/[address] [facility] Oxygen Method Room air (11/15/19 11/15/2019 [facility] 11:15 AM) Center Heart Rate (bpm) 74 11/15/2019 [facility] Respiratory Rate 25 Breaths/Min 11/15/2019 [facility] SPO2 97 11/15/2019 [facility] NIBP Mean 106 11/15/2019 [facility] Systolic (mm Hg) 139 11/15/2019 [facility] Diastolic (mm Hg) 83 11/15/[address] [facility] Oxygen Method Room air (11/15/19 11/15/2019 [facility] 11:00 AM) Center Pain Scale Numeric Rating Scale 11/15/2019 [facility] (11/15/19 10:51 AM) Center Oxygen Method Room air (11/15/19 11/15/2019 [facility] 10:51 AM) Center Heart Rate (bpm) 76 11/15/2019 [facility] Respiratory Rate 26 Breaths/Min 11/15/2019 [facility] SPO2 97 11/15/2019 [facility] NIBP Mean 106 11/15/2019 [facility] Systolic (mm Hg) 150 11/15/2019 [facility] Diastolic (mm Hg) 77 11/15/[address] [facility] Oxygen Method Room air (11/15/19 11/15/2019 [facility] 10:45 AM) Center Heart Rate (bpm) 78 11/15/2019 [facility] Respiratory Rate 16 Breaths/Min 11/15/2019 [facility] SPO2 94 11/15/2019 [facility] NIBP Mean 105 11/15/2019 [facility] Systolic (mm Hg) 148 11/15/2019 [facility] Diastolic (mm Hg) 74 11/15/[address] [facility] Oxygen Method Room air (11/15/19 11/15/2019 [facility] 10:30 AM) Center Oxygen Method Nasal cannula 11/15/2019 [facility] (11/15/19 10:24 AM) Center Oxygen Amount 2 L/min 11/15/2019 [facility] Heart Rate (bpm) 80 11/15/2019 [facility] SPO2 94 11/15/2019 [facility] Systolic (mm Hg) 132 11/15/2019 [facility] Diastolic (mm Hg) 75 11/15/[address] [facility] Respiratory Rate 14 Breaths/Min 11/15/2019 [facility] Oxygen Method Room air (11/15/19 11/15/2019 [facility] 10:15 AM) Center Pain Scale Numeric Rating Scale 11/15/2019 [facility] (11/15/19 10:10 AM) Center Heart Rate (bpm) 78 11/15/2019 [facility] SPO2 97 11/15/2019 [facility] Systolic (mm Hg) 138 11/15/2019 [facility] Diastolic (mm Hg) 77 11/15/[address] [facility] Respiratory Rate 14 Breaths/Min 11/15/2019 [facility] Oxygen Method Nasal cannula 11/15/2019 [facility] (11/15/19 10:10 AM) Center Oxygen Amount 2 L/min 11/15/2019 [facility] Heart Rate (bpm) 78 11/15/2019 [facility] SPO2 97 11/15/2019 [facility] Systolic (mm Hg) 139 11/15/2019 [facility] Diastolic (mm Hg) 77 11/15/[address] [facility] Respiratory Rate 17 Breaths/Min 11/15/2019 [facility] Oxygen Method Nasal cannula 11/15/2019 [facility] (11/15/19 10:05 AM) Center Oxygen Amount 2 L/min 11/15/2019 [facility] Pain Scale Numeric Rating Scale 11/15/2019 [facility] (11/15/19 10:05 AM) Center Pain Scale Numeric Rating Scale 11/15/2019 [facility] (11/15/19 10:03 AM) Center Heart Rate (bpm) 78 11/15/2019 [facility] SPO2 97 11/15/2019 [facility] Systolic (mm Hg) 139 11/15/2019 [facility] Diastolic (mm Hg) 77 11/15/[address] [facility] Respiratory Rate 17 Breaths/Min 11/15/2019 [facility] Oxygen Method Nasal cannula 11/15/2019 [facility] (11/15/19 10:00 AM) Center Oxygen Amount 2 L/min 11/15/2019 [facility] Pain Scale Numeric Rating Scale 11/15/2019 [facility] (11/15/19 9:55 AM) Center Heart Rate (bpm) 78 11/15/2019 [facility] SPO2 96 11/15/2019 [facility] Systolic (mm Hg) 142 11/15/2019 [facility] Diastolic (mm Hg) 79 11/15/[address] [facility] Respiratory Rate 18 Breaths/Min 11/15/2019 [facility] Oxygen Amount 2 L/min 11/15/2019 [facility] Heart Rate (bpm) 82 11/15/2019 [facility] SPO2 100 11/15/2019 [facility] Systolic (mm Hg) 166 11/15/2019 [facility] Diastolic (mm Hg) 91 11/15/[address] [facility] Respiratory Rate 15 Breaths/Min 11/15/2019 [facility] Oxygen Amount 2 L/min 11/15/2019 [facility] Pain Scale Numeric Rating Scale 11/15/2019 [facility] (11/15/19 9:50 AM) Center Pain Scale Numeric Rating Scale 11/15/2019 [facility] (11/15/19 9:47 AM) [place] FIO2 - pt care 98 11/15/2019 [facility] Pain Scale Numeric Rating Scale 11/15/2019 [facility] (11/15/19 9:40 AM) Center Glucose Level (mg/dL) 112 11/15/2019 [facility] Temperature (c) 36.6 11/15/2019 [facility] Pain Scale Numeric Rating Scale 11/15/2019 [facility] (11/15/19 8:14 AM) Center Sensory Deficits None (11/15/19 8:14 11/15/2019 [facility]) Center Height (cm) 167.64 11/15/2019 [facility] Weight Method Stated (11/15/19 8:14 11/15/2019 [facility]) Center Drug Calc Weight (kg) 68.027 11/15/2019 [facility] BMI 24.21 11/15/2019 [facility] Oxygen Amount 99 L/min 11/12/2019 [facility] Glucose Level (mg/dL) 91 11/09/2019 [facility] Height (cm) 165.1 11/09/2019 [facility] Weight Method Actual (11/08/19 11:55 11/09/2019 [facility] Drug Calc Weight (kg) 70.5 11/09/2019 [facility] BMI 25.86 11/09/2019 [facility] Pain Scale Numeric Rating Scale 11/08/2019 [facility] (11/08/19 4:46 PM) [facility] [address] [address] Pain Scale Numeric Rating Scale 11/08/2019 [facility] (11/08/19 4:31 PM) [facility] [place] [address] Temperature (c) 37.0 11/08/2019 [facility] Heart Rate (bpm) 84 11/08/2019 [facility] Respiratory Rate 16 Breaths/Min 11/08/2019 [facility] Oxygen Method Room air (11/08/19 11/08/2019 [facility] SPO2 95 11/08/2019 [facility] [place] Systolic (mm Hg) 126 11/08/2019 [facility] Diastolic (mm Hg) 76 11/08/2019 [facility] Pain Scale Numeric Rating Scale 11/08/2019 [facility] (11/08/19 4:00 PM) [facility] [place] [address] Bed alarm on Yes (11/08/19 4:00 PM) 11/08/2019 [facility] Living Situation Lives alone (11/08/19 11/08/2019 [facility] 2:17 PM) Medical Center Temperature (c) 36.9 11/08/2019 [facility] Heart Rate (bpm) 85 11/08/2019 [facility] Respiratory Rate 16 Breaths/Min 11/08/2019 [facility] Oxygen Method Room air (11/08/19 11/08/2019 [facility] 12:00 PM) Medical Center SPO2 96 11/08/2019 [facility] [place] Systolic (mm Hg) 130 11/08/2019 [facility] Diastolic (mm Hg) 79 11/08/2019 [facility] Pain Scale Numeric Rating Scale 11/08/2019 [facility] (11/08/19 12:00 PM) Medical Ce nter Bed alarm on Yes (11/08/19 12:00 11/08/2019 [facility] ional PM) Medical Center Pain Scale Numeric Rating Scale 11/08/2019 [facility] (11/08/19 8:03 AM) [facility] [place] [address] Temperature (c) 37.0 11/08/2019 [facility] Heart Rate (bpm) 91 11/08/2019 [facility] Respiratory Rate 16 Breaths/Min 11/08/2019 [facility] Oxygen Method Room air (11/08/19 11/08/2019 [facility] 8:00 AM) Medical Center SPO2 95 11/08/2019 [facility] [place] Systolic (mm Hg) 151 11/08/2019 [facility] Diastolic (mm Hg) 79 11/08/2019 [facility] Pain Scale Numeric Rating Scale 11/08/2019 [facility] (11/08/19 8:00 AM) [facility] [place] Bed alarm on Yes (11/08/19 8:00 AM) 11/08/2019 [facility] Temperature (c) 37 11/08/2019 [facility] Heart Rate (bpm) 92 11/08/2019 [facility] Respiratory Rate 16 Breaths/Min 11/08/2019 [facility] Oxygen Method Room air (11/08/19 11/08/2019 [facility] 5:00 AM) Medical Center SPO2 96 11/08/2019 [facility] [place] Systolic (mm Hg) 130 11/08/2019 [facility] Diastolic (mm Hg) 85 11/08/2019 [facility] Pain Scale Numeric Rating Scale 11/08/2019 [facility] (11/08/19 4:00 AM) [facility] [place] [address] Systolic (mm Hg) 132 11/08/2019 [facility] Diastolic (mm Hg) 80 11/08/2019 [facility] SPO2 94 11/08/2019 [facility] [place] Oxygen Method Room air (11/07/19 11/08/2019 [facility] 11:00 PM) Medical Center Heart Rate (bpm) 83 11/08/2019 [facility] Respiratory Rate 16 Breaths/Min 11/08/2019 [facility] Temperature (c) 36.6 11/08/2019 [facility] Pain Scale Numeric Rating Scale 11/08/2019 [facility] (11/07/19 11:00 PM) Medical Ce nter Pain Scale Numeric Rating Scale 11/08/2019 [facility] (11/07/19 8:21 PM) [facility] [place] [address] Pain Scale Numeric Rating Scale 11/08/2019 [facility] (11/07/19 8:06 PM) [facility] [place] [address] Temperature (c) 36.4 11/08/2019 [facility] Oxygen Method Room air (11/07/19 11/08/2019 [facility] 8:00 PM) Medical Center Heart Rate (bpm) 84 11/08/2019 [facility] Respiratory Rate 16 Breaths/Min 11/08/2019 [facility] SPO2 96 11/08/2019 [facility] [place] Systolic (mm Hg) 138 11/08/2019 [facility] Diastolic (mm Hg) 83 11/08/2019 [facility] Glucose (POCT) 114 11/08/2019 [facility] Temperature (c) 36.5 11/07/2019 [facility] Heart Rate (bpm) 97 11/07/2019 [facility] Respiratory Rate 16 Breaths/Min 11/07/2019 [facility] Oxygen Method Room air (11/07/19 11/07/2019 [facility] 4:00 PM) Medical Center SPO2 98 11/07/2019 [facility] [place] Systolic (mm Hg) 143 11/07/2019 [facility] Diastolic (mm Hg) 88 11/07/2019 [facility] Glucose (POCT) 144 11/07/2019 [facility] Temperature (c) 36.8 11/07/2019 [facility] Systolic (mm Hg) 134 11/07/2019 [facility] Diastolic (mm Hg) 83 11/07/2019 [facility] SPO2 98 11/07/2019 [facility] [place] Oxygen Method Room air (11/07/19 11/07/2019 [facility] 11:15 AM) Medical Center Respiratory Rate 16 Breaths/Min 11/07/2019 [facility] Heart Rate (bpm) 96 11/07/2019 [facility] Living Situation Lives alone (11/07/19 11/07/2019 [facility] 9:46 AM Medical [place] Glucose (POCT) 107 11/07/2019 [facility] Temperature (c) 37.1 11/07/2019 [facility] Heart Rate (bpm) 88 11/07/2019 [facility] Respiratory Rate 16 Breaths/Min 11/07/2019 [facility] Oxygen Method Room air (11/07/19 11/07/2019 [facility] 7[facility] Medical Center SPO2 93 11/07/2019 [facility] [place] Systolic (mm Hg) 135 11/07/2019 [facility] Diastolic (mm Hg) 79 11/07/2019 [facility] Glucose Level (mg/dL) 111 11/07/2019 [facility] Glucose (POCT) 114 11/07/2019 [facility] Oxygen Method Room air (11/07/19 11/07/2019 [facility] 3:00 AM) [facility] Heart Rate (bpm) 90 11/07/2019 [facility] Respiratory Rate 16 Breaths/Min 11/07/2019 [facility] SPO2 97 11/07/2019 [facility] [place] Systolic (mm Hg) 148 11/07/2019 [facility] Diastolic (mm Hg) 82 11/07/2019 [facility] Temperature (c) 36.7 11/07/2019 [facility] Glucose (POCT) 102 11/07/2019 [facility] Glucose (POCT) 115 11/07/2019 [facility] Glucose (POCT) 94 11/07/2019 [facility] Eating Self (11/06/19 2:14 11/06/2019 [facility] PM) Medical [place] Bathing Self (11/06/19 2:14 11/06/2019 [place] [facility] PM) Medical [place] Dressing Self (11/06/19 2:14 11/06/2019 [place] [facility] eg[facility] PM) Medical Center Transferring Self (11/06/19 2:14 11/06/2019 [facility] PM) Medical Center Toileting Self (11/06/19 2:14 11/06/2019 [facility] egional PM) Medical Center Walking Self (11/06/19 2:14 11/06/2019 [facility] eg[facility] PM) Medical Center Balancing Self (11/06/19 2:14 11/06/2019 [facility] eg[facility] PM) Medical Center Sensory Deficits None (11/06/19 2:14 11/06/2019 [facility] PM) Medical Center Height (cm) 165.1 11/06/2019 [facility] [place] Weight Method Stated (11/06/19 2:14 11/06/[address] [facility]) Medical Center Drug Calc Weight (kg) 72.9 11/06/2019 [facility] BMI 26.74 11/06/2019 [facility] [place] Heart Rate (bpm) 91 11/06/2019 [facility] Respiratory Rate 16 Breaths/Min 11/06/2019 [facility] Oxygen Method Room air (11/05/19 11/06/2019 [facility] 5:00 PM) Medical Center SPO2 98 11/06/2019 [facility] [place] Systolic (mm Hg) 148 11/06/2019 [facility] Diastolic (mm Hg) 90 11/06/2019 [facility] Pain Scale Numeric Rating Scale 11/05/2019 [facility] (11/05/19 12:57 PM) Medical Ce nter Bed alarm on No (11/05/19 12:57 PM) 11/05/2019 [facility] Heart Rate (bpm) 90 11/05/2019 [facility] Respiratory Rate 16 Breaths/Min 11/05/2019 [facility] Oxygen Method Room air (11/05/19 11/05/2019 [facility] 11:00 AM) Medical Center SPO2 98 11/05/2019 [facility] [place] Systolic (mm Hg) 148 11/05/2019 [facility] Diastolic (mm Hg) 80 11/05/2019 [facility] Living Situation Lives alone (11/05/19 11/05/2019 [facility] 10:43 AM) Medical Center Heart Rate (bpm) 89 11/05/2019 [facility] SPO2 98 11/05/2019 [facility] [place] Temperature (c) 36.7 11/05/2019 [facility] Systolic (mm Hg) 153 11/05/2019 [facility] Diastolic (mm Hg) 82 11/05/2019 [facility] Respiratory Rate 16 Breaths/Min 11/05/2019 [facility] Pain Scale Numeric Rating Scale 11/05/2019 [facility] (11/05/19 8:00 AM) [facility] [place] [address] Face NVPS 1 = Occasional 11/05/2019 [facility] onnm grimace, tearing, Medical Ce nter frowning, wrinkled forehead (11/05/19 8:00 AM) Bed alarm on No (11/05/19 8:00 AM) 11/05/2019 [facility] Temperature (c) 37 11/05/2019 [facility] Heart Rate (bpm) 82 11/05/2019 [facility] Respiratory Rate 18 Breaths/Min 11/05/2019 [facility] SPO2 98 11/05/2019 [facility] [place] Systolic (mm Hg) 146 11/05/2019 [facility] Diastolic (mm Hg) 82 11/05/2019 [facility] Heart Rate (bpm) 80 11/05/2019 [facility] SPO2 96 11/05/2019 [facility] [place] Temperature (c) 36.9 11/05/2019 [facility] Respiratory Rate 18 Breaths/Min 11/05/2019 [facility] Systolic (mm Hg) 150 11/05/2019 [facility] Diastolic (mm Hg) 85 11/05/2019 [facility] Sensory Deficits None (11/05/19 12:15 11/05/2019 [facility]) Medical Center Living Situation Lives alone (11/05/19 11/05/2019 [facility] 12:15 AM) Medical Center Eating Self (11/05/19 12:15 11/05/2019 [facility]) Medical Center Bathing Self (11/05/19 12:15 11/05/2019 [facility]) Medical Center Dressing Self (11/05/19 12:15 11/05/2019 [facility]) Medical Center Transferring Self (11/05/19 12:15 11/05/2019 [facility]) Medical Center Toileting Self (11/05/19 12:15 11/05/2019 [facility]) Medical Center Walking Self (11/05/19 12:15 11/05/2019 [facility]) Medical Center Balancing Self (11/05/19 12:15 11/05/2019 [facility]) Medical Center Height (cm) 165 11/05/2019 [facility] Weight Method Actual (11/05/19 12:15 11/05/2019 [facility] Medical Center Drug Calc Weight (kg) 72.9 11/05/2019 [facility] BMI 26.78 11/05/2019 [facility] SPO2 97 11/05/2019 [facility] Respiratory Rate 16 Breaths/Min 11/05/2019 [facility] Heart Rate (bpm) 86 11/05/2019 [facility] Systolic (mm Hg) 148 11/05/2019 [facility] Diastolic (mm Hg) 60 11/05/2019 [facility] Heart Rate (bpm) 80 11/05/2019 [facility] Respiratory Rate 18 Breaths/Min 11/05/2019 [facility] SPO2 99 11/05/2019 [facility] Systolic (mm Hg) 156 11/05/2019 [facility] Diastolic (mm Hg) 81 11/05/2019 [facility] Heart Rate (bpm) 82 11/05/2019 [facility] Respiratory Rate 16 Breaths/Min 11/05/2019 [facility] SPO2 98 11/05/2019 [facility] Systolic (mm Hg) 158 11/05/2019 [facility] Diastolic (mm Hg) 81 11/05/2019 [facility] Living Situation Lives with children 11/05/2019 [facility] (11/04/19 8:17 PM) Medical [address] Sensory Deficits None (11/04/19 8:17 11/05/2019 [facility] Temperature (c) 36.6 11/05/2019 [facility] Systolic (mm Hg) 159 11/05/2019 [facility] Diastolic (mm Hg) 88 11/05/2019 [facility] Heart Rate (bpm) 79 11/05/2019 [facility] Respiratory Rate 16 Breaths/Min 11/05/2019 [facility] SPO2 97 11/05/2019 [facility] Pain Scale Numeric Rating Scale 11/05/2019 [facility] (11/04/19 8:17 PM) Medical [facility] Height (cm) 165.1 11/05/2019 [facility] Weight Method Actual (11/04/19 8:17 11/05/2019 [facility] PM) Medical Center Drug Calc Weight (kg) 73 11/05/2019 [facility] BMI 26.78 11/05/2019 [facility] Glucose Level (mg/dL) 96 11/05/2019 [facility] Glucose (POCT) 87 11/05/2019 [facility] Living Situation Lives alone (10/26/19 10/26/2019 [facility] 2:10 PM) Medical Center Temperature (c) 36.5 10/26/2019 [facility] Systolic (mm Hg) 132 10/26/2019 [facility] Diastolic (mm Hg) 76 10/26/2019 [facility] Respiratory Rate 18 Breaths/Min 10/26/2019 [facility] Oxygen Method Room air (10/26/19 10/26/2019 [facility] 12:00 PM) Medical Center SPO2 97 10/26/2019 [facility] Current Living Home/Independent 10/26/2019 [facility] Environment (10/26/19 10:27 AM) Medical C enter Lives In (SW) Single level home 10/26/2019 [facility] (10/26/19 10:27 AM) Medical C enter Lives With (SW) Alone (10/26/19 10:27 10/26/2019 [facility] AM) Medical Center Eating Self (10/26/19 10:27 10/26/2019 [facility] AM) Medical Center Bathing Self (10/26/19 10:27 10/26/2019 [facility] AM) Medical Center Dressing Self (10/26/19 10:27 10/26/2019 [facility] AM) Medical Center Transferring Self (10/26/19 10:27 10/26/2019 [facility] AM) Medical Center Toileting Self (10/26/19 10:27 10/26/2019 [facility] AM) Medical Center Walking Self (10/26/19 10:27 10/26/2019 [facility] AM) Medical Center Balancing Self (10/26/19 10:27 10/26/2019 [facility] AM) Medical Center Current Home None (10/26/19 10:27 10/26/2019 [facility] Treatments AM) Medical Center Sensory Deficits None (10/26/19 10:27 10/26/2019 [facility]) Medical Center Temperature (c) 36.6 10/26/2019 [facility] Heart Rate (bpm) 82 10/26/2019 [facility] SPO2 98 10/26/2019 [facility] Systolic (mm Hg) 154 10/26/2019 [facility] Diastolic (mm Hg) 82 10/26/2019 [facility] Respiratory Rate 18 Breaths/Min 10/26/2019 [facility] Oxygen Method Room air (10/26/19 10/26/2019 [facility] 7:00 AM) Medical Center Heart Rate (bpm) 92 10/26/2019 [facility] SPO2 100 10/26/2019 [facility] Bed alarm on No (10/26/19 4:00 AM) 10/26/2019 [facility] Heart Rate (bpm) 79 10/26/2019 [facility] SPO2 96 10/26/2019 [facility] Temperature (c) 36.8 10/26/2019 [facility] Systolic (mm Hg) 127 10/26/2019 [facility] Diastolic (mm Hg) 76 10/26/2019 [facility] Respiratory Rate 18 Breaths/Min 10/26/2019 [facility] Oxygen Method Room air (10/26/19 10/26/2019 [facility] 3:29 AM) Medical Center Bed alarm on No (10/26/19 12:00 10/26/2019 [facility]) Medical Center Heart Rate (bpm) 87 10/26/2019 [facility] SPO2 95 10/26/2019 [facility] Temperature (c) 36.5 10/26/2019 [facility] Systolic (mm Hg) 141 10/26/2019 [facility] Diastolic (mm Hg) 74 10/26/2019 [facility] Respiratory Rate 18 Breaths/Min 10/26/2019 [facility] Oxygen Method Room air (10/25/19 10/26/2019 [facility] 11:18 PM) Medical Center Glucose (POCT) 113 10/26/2019 [facility] Bed alarm on No (10/25/19 8:00 PM) 10/26/2019 [facility] Heart Rate (bpm) 86 10/26/2019 [facility] SPO2 99 10/26/2019 [facility] Temperature (c) 36.8 10/26/2019 [facility] Systolic (mm Hg) 149 10/26/2019 [facility] Diastolic (mm Hg) 87 10/26/2019 [facility] Respiratory Rate 18 Breaths/Min 10/26/2019 [facility] Oxygen Method Room air (10/25/19 10/26/2019 [facility] 7:54 PM) Medical Center Temperature (c) 36.4 10/26/2019 [facility] Systolic (mm Hg) 167 10/26/2019 [facility] Diastolic (mm Hg) 85 10/26/2019 [facility] Heart Rate (bpm) 94 10/26/2019 [facility] Oxygen Method Room air (10/25/19 10/26/2019 [facility] 5:00 PM) Medical Center SPO2 96 10/26/2019 [facility] Heart Rate (bpm) 87 10/25/2019 [facility] Oxygen Method Room air (10/25/19 10/25/2019 [facility] 1:30 PM) Medical Center SPO2 98 10/25/2019 [facility] Systolic (mm Hg) 140 10/25/2019 [facility] Diastolic (mm Hg) 86 10/25/2019 [facility] Heart Rate (bpm) 89 10/25/2019 [facility] Oxygen Method Room air (10/25/19 10/25/2019 [facility] 1:00 PM) Medical Center SPO2 99 10/25/2019 [facility] Systolic (mm Hg) 142 10/25/2019 [facility] Diastolic (mm Hg) 89 10/25/2019 [facility] Heart Rate (bpm) 91 10/25/2019 [facility] SPO2 98 10/25/2019 [facility] Oxygen Method Room air (10/25/19 10/25/2019 [facility] 12:30 PM) Medical Center Systolic (mm Hg) 145 10/25/2019 [facility] Diastolic (mm Hg) 87 10/25/2019 [facility] Systolic (mm Hg) 141 10/25/2019 [facility] Diastolic (mm Hg) 83 10/25/2019 [facility] Oxygen Method Room air (10/25/19 10/25/2019 [facility] 12:00 PM) Medical Center Heart Rate (bpm) 90 10/25/2019 [facility] Living Situation Lives alone (10/25/19 10/25/2019 [facility] 9:45 AM) Medical Center Temperature (c) 37.0 10/25/2019 [facility] Respiratory Rate 16 Breaths/Min 10/25/2019 [facility] Glucose (POCT) 101 10/25/2019 [facility] Temperature (c) 36.6 10/25/2019 [facility] Respiratory Rate 16 Breaths/Min 10/25/2019 [facility] Glucose Level (mg/dL) 102 10/25/2019 [facility] Glucose (POCT) 102 10/25/2019 [facility] Sensory Deficits None (10/25/19 1:02 10/25/2019 [facility] AM) Medical Center Living Situation Lives alone (10/25/19 10/25/2019 [facility] 1:02 AM) Medical Center Eating Self (10/25/19 1:02 10/25/2019 [facility]) Medical Center Bathing Self (10/25/19 1:02 10/25/2019 [facility]) Medical Center Dressing Self (10/25/19 1:02 10/25/2019 [facility] AM) Medical Center Transferring Self (10/25/19 1:02 10/25/2019 [facility] AM) Medical Center Toileting Self (10/25/19 1:02 10/25/2019 [facility]) Medical Center Walking Self (10/25/19 1:02 10/25/2019 [facility] AM) Medical Center Balancing Self (10/25/19 1:02 10/25/2019 [facility]) Medical Center Height (cm) 165.1 10/25/2019 [facility] Weight Method Actual (10/25/19 1:02 10/25/2019 [facility] Medical Center Drug Calc Weight (kg) 72.93 10/25/2019 [facility] BMI 26.76 10/25/2019 [facility] Temperature (c) 36.5 10/25/2019 [facility] Respiratory Rate 18 Breaths/Min 10/25/2019 [facility] Respiratory Rate 18 Breaths/Min 10/25/2019 [facility] Glucose Level (mg/dL) 86 10/25/2019 [facility] Respiratory Rate 17 Breaths/Min 10/25/2019 [facility] Sensory Deficits None (10/24/19 8:08 10/25/2019 [facility] PM) Medical Center Temperature (c) 36.7 10/25/2019 [facility] Pain Scale Numeric Rating Scale 10/25/2019 [facility] (10/24/19 8:08 PM) Medical Ce nter Height (cm) 165.1 10/25/2019 [facility] Weight Method Actual (10/24/19 8:08 10/25/2019 [facility]) 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 Inpatient [id number] Celso 10/25 10/27 [facility] Kee /2019 [facility] Inpatient [id number] Francis 11/05 11/06 [facility] Saunders /2019 [facility] Inpatient [id number] Aaron Alam 11/06 11/09 [facility] /2019 [facility] In[facility] [id number] Mohammad 11/09 11/25 [facility] /2019 [facility] Outpatient [id number] Ed 11/13 11/14 [facility] Twum-A[facility] /2019 [facility] Outpatient [id number] Rolando 11/17 11/15 [facility] Diana /2019 [facility] Inpatient [id number] Kamaljit 11/27 12/16 [facility] My /2019 [facility] Inpatient [id number] Helen Black 05/31 06/03 [facility] /[address] [facility] [address] Outpatient [id number] Js 06/13 06/14 [facility] [place] /[address] 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 /2021 [facility] Ambulatory [id number] Jg 01/01 01/01 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 Carcinoma, no subtype [id number] MULTIPLE SKIN [place] (morphologic CANCERS REMOVED Region[facility] l abnormality) Medical Cent er Hysterectomy [id number] [facility] (procedure) [facility] Arthroplasty of knee [id number] RIGHT [facility] (procedure) [facility] Plantar fascia [id number] Left foot [facility] structure (body Regional structure) 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) [facility] Injection of [id number] Bilateral [facility] sclerosing agent in [facility] varicose vein [facility] (procedure) BLEPHROPLASTY [facility] CATARACTS REMOVED [facility] PORTACATH LEFT CHEST [facility] Social History Social History Date Source Social History TypeResponse 01/01/2022 [facility] Smoking Status Former smoker, quit more than 30 days ago1 entered on: 01/01/22 Sex 09212's Social History TypeResponse 01/29/2021 [facility] Smoking Status Former smoker, quit more than 30 days ago entered on: 01/29/21 Sex Social History TypeResponse 05/31/2020 [facility] Smoking Status Centers Former smoker, quit more than 30 days ago; Number of years: 8; entered on: 05/31/20 Sex Social History TypeResponse 05/31/2020 [facility] Medical Smoking Status Center Former smoker, quit more than 30 days ago; Number of years: 8; entered on: 05/31/20 Sex Social History TypeResponse 05/31/2020 [facility] [place] [place] - Inter nal Medicine - St. Smoking Status [facility] Former smoker, quit more than 30 days ago; Number of years: 8; entered on: 05/31/20 Sex Social History TypeResponse 11/27/2019 [facility] Status [facility] Former smoker, quit more than 30 days ago; Stopped at age: 2 981; entered on: 11/27/19 Assessment and Plan Result Assessment and Plan Date Source Assessment and Plan No data available for this 01/01/2022 C handler [facility] Assessment and Plan No data available for this 01/29/2021 Gracie Obregon [facility] Assessment and Plan Future Scheduled TestsRadiol ogyXR L Spine 2-3 Views 11/09/19XR Wrist 2 Views Lt 11/21/19IR IVC Filter Placement Percutaneous 11/11/19 06/29/2020 [facility] - Internal Medicine - [facility] Assessment and Plan Future Scheduled TestsRadiol ogyXR L Spine 2-3 Views 11/09/19XR Wrist 2 Views Lt 11/21/19IR IVC Filter Placement Percutaneous 11/11/19 06/19/2020 [facility] Assessment and Plan Future Scheduled TestsRadiol ogyXR L Spine 2-3 Views 11/09/19XR Wrist 2 Views Lt 11/21/19IR IVC Filter Placement Percutaneous 11/11/19 06/14/2020 [facility] Assessment and Plan Extracted from:Title: Clinical Document 11/05 [facility] Author: Cristofer Morris MD [facility] Re habilitation Date: 11/09/19 Hospital See consult note Extracted from:Title: Dr. 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 Extracted from:Title: Consultation Author: Cristofer Morris MD Date: 11/09/19 Gait instability with ADL dysfunction due to re cent CVA. New acute multi-embolic cerebrovascular acciden t. 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 Left popliteal vein deep venous thrombosis Recent Elevated troponin, appears chronic. Recent cerebrovascular accident 10/23/2019. Left wrist pain, likely strain from a fall. HTN HLP h/o Migraine Transaminitis PLAN: - Admit under the service of Dr. Diana Taylor - For PT/OT/ST eval. - Resume atorvastatin for CVA. Also for good BP control. Patient is also on eliquis. - Amlodipine for HTN. - Atorvastatin for HLP. - Eliquis for DVT. - Trend AST/ALT/Alk phos levels. - To f/u with Cardio and Neuro as an OP. - DVT ppx - on eliquis.
--- OUTSIDE RECORDS SUMMARY | 2022-07-28 13:43 | XMS_ITS ---
:1940 Author Care Team Providers Name Role Phone DR. CAROL RUFF Primary Care Provider Unavailable OLIVIA ROWLEY MD Neurologist [phone] EZ ECHEVERRIA MD Business Practices Officer [phone] HELEN FRANKS Hematology/Oncology [phone] Allergies Code Code System Name Reaction Severity Status Onset NKDA ? Medications Name Status Start Date Stop Date ? ? aspirin 81 mg tablet,delayed release Active ? Not available Take 1 tablet every day by oral route. atorvastatin 20 mg tablet Active ? Not av ailable TAKE 1 TABLET BY MOUTH EVERY DAY FOR 90 DAYS Calcium + D 600 mg-5 mcg (200 unit) tablet Active 02/05 Not available take one tablet po bid OTC carvedilol 6.25 mg tablet Completed ? 2021 take one tablet po bidCardio Celexa 10 mg tablet Completed 09/16/2020 12/15/2020 1 tb PO QD enoxaparin 60 mg/0.6 mL subcutaneous syringe Completed ? 01/12/2022 DIRECTED SUBCUTANEOUS 1 INJECTION EVERY 12 HRS 8 DAYS famotidine 20 mg tablet Completed ? 01/13/20 22 take one tablet po qd Dr Franks Onc Flonase Allergy Relief 50 mcg/actuation nasal spray,suspension A ctive ? Not available 1 spray bid each nostrilOTC recommended furosemide 20 mg tablet Active ? Not avai lable TAKE 1 TABLET BY MOUTH EVERY DAY FOR 7 DAYS gabapentin 100 mg tablet Completed 09/16/2020 021 take one tablet at bedtime guaifenesin ER 600 mg tablet,extended release Completed 01/12/2022 i tab po qd PRN [facility] Lynparza 150 mg tablet Active ? Not avail able Take 2 tablets twice a day by oral route. melatonin 1 mg tablet Active ? Not availa ble po qhs OTC midodrine 2.5 mg tablet Active ? Not avai lable TAKE 1 TABLET BY MOUTH TWICE A DAY FOR 90 DAYS Norvasc 2.5 mg tablet Completed 09/16/2020 12/15/2020 1 tb PO QD warfarin 2.5 mg tablet Active ? Not avail able po qd x 4 days and 2 tablet po qf Mon Wed and friCardio warfarin 5 mg tablet Active ? Not availab le Zofran 4 mg tablet Completed ? 01/12/2022 take one tablet po q [address] Franks Onc Problems Name Status Onset Date Source ? Cerebrovascular Accident Active 10/04/2019 ? Cerebellar Stroke Syndrome Active 10/24/2019 Histo ry Malignant Essential Hypertension Active 07/03/2020 History Mixed Hyperlipidemia Active 09/16/2020 History Anxiety State Active 09/16/2020 History Hyperlipidemia Active 10/30/2021 ? Covid-19 Active 10/30/2021 ? 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 Senile Purpura Active 12/01/2021 ? Peripheral Vascular Disease Active 12/01/2021 ? Orthostatic Hypotension Active 12/01/2021 ? History of Cerebrovascular Accident Active 12/01/2021 ? Long-term Current Use of Anticoagulant Active ? Secondary Peripheral Neuropathy Active 12/01/2021 ? Depressive Disorder Active 01/12/2022 ? Peripheral Arterial Occlusive Disease Active 01/12/2022 ? 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 Clearing Throat - [place] Active 01/12/2022 ? Anemia of Chronic Disease Active 02/10/2022 ? Actinic Keratosis Active 02/10/2022 ? Encephalomalacia Active 03/03/2022 ? Chronic Pansinusitis Active 03/03/2022 ? 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 11/07/2021 Angioplasty of Artery Information not av ailable 01/12/2022 MAMMO, Screening, Digital, Bilateral [facility] [address] [place] [address] (Work Place) 01/12/2022 [facility] [address] [place] [address] (Work Place) Notes: 1.Rectal & Vaginal Fistula:1968 2.Hysterectomy:1988 3.Bladder Pammen7803 4.Plantat Fascia release L foot:1995 5.M ohs L face:2006 6.R Knee Replacement:2014 7.Eyelid Sx:2014 8.Dental Implant:2014 9 .BL Cataracts:2015 Results Lab Results Date Name Specimen Result Interpretation Description Value Range Status Address ? 10/30/2021 SARS CoV 2 ABNORMAL Sars-cov-2, detected not Final [facility]: RNA VIN detected [address] (COVID-19), [address], bracelet and brooch maker-PCR, [address], Respiratory [place] Specimen ? ? ? Sars-cov-2, performed ? Final [facility]: VIN 2 Day [address], [place] 10/30/2021 Rapid Strep ? Value Rapid Negative ? ? [facility] a, Strep a andler: Throat Antigen / [address] [facility] [address], [place] 10/30/2021 Rapid SARS ? COVID positive ? ? Vm_phx_ch CoV 2 Ag, QL Antigen and ler: [place], [address] [facility] [address], [place] 10/30/2021 Rapid Flu ? Flu negative ? ? V m_phx_ch (A+B) andler: [address] [facility] [address], [place] Past Encounters 03/03/2022 Depression Screening; Normal Weight; Enc ephalomalacia; Chronic Pansinusitis Carol Ruff MD: [address] [facility] [address], [place] [address], Ph. [phone] 02/10/2022 Depression Screening; Normal Weight; Per ipheral Vascular Disease; Senile Purpura; History of Cerebrovascular Accident; Malignant Tumor of Ovary; Orthostatic Hypotension; Long-term Current Use of Anticoa gulant; Secondary Peripheral Neuropathy; Clearing Throat - [place]; Cerebellar Stroke Syndrome; Depressive Disorder; Peripheral Arterial Occlusive Disease; Varicose Veins of Lower Extremity with Inflamm ation; Anemia of Chronic Disease; Actini c Keratosis Carol Ruff MD: [address] [facility], [address], [place] [address], Ph. [phone] 01/12/2022 Depression Screening; Normal Weight; Per ipheral Vascular Disease; Senile Purpura; History of Cerebrovascular Accident; Malignant Tumor of Ovary; Orthostatic Hypotension; Long-term Current Use of Anticoa gulant; Secondary Peripheral Neuropathy; Clearing Throat - [place]; Covid-19; Adult Health Examination; Screening Mammography of Bilateral Breasts; Screening for Osteoporosis; Advance Directive Discusse d with Patient; Cerebellar Stroke Syndro me; Depressive Disorder; Peripheral Arterial Occlusive Disease; Varicose Veins of Lower Extremity with Inflammation Carol Ruff MD: [address] [facility], [place] [address], [place], [place] [id number], Ph. [phone] 12/01/2021 Normal Weight; Depression Screening; Per ipheral Vascular Disease; Senile Purpura; History of Cerebrovascular Accident; Malignant Tumor of Ovary; Orthostatic Hypotension; Long-term Current Use of Anticoa gulant; Secondary Peripheral Neuropathy; Clearing Throat - [place]; Covid-19; Adult Health Examination Carol Ruff MD: [address] [facility], [address], [place] [address], Ph. [phone] 11/07/2021 Exposure to SARS-CoV-2; Covid-19; Normal Weight; Depression Screening Todd Fuchs NP: [address] [facility], [place] [address], [place], [place] [id number], Ph. [phone] 11/04/2021 Exposure to SARS-CoV-2; Covid-19; Normal Weight; Depression Screening Todd Fuchs NP: [address] [facility], [facility] [address], [place] [address], Ph. [phone] 10/31/2021 Exposure to SARS-CoV-2; Covid-19; Normal Weight; Depression Screening Todd Fuchs NP: [address] [facility], [address], [place] [address], Ph. [phone] 10/30/2021 Suspected COVID-19; Covid-19; Pain in Th roat; Fever; Depression Screening; Normal Weight Todd Fuchs NP: [address] [facility], [address], [place] [address], Ph. [phone] Social History Tobacco Smoking Status Never Smoker Vaccine List Vaccine Type COVID-19, mRNA, LNP-S, PF, 30 mcg/0.3 mL dose (Nanorex) 02/21/2021 influenza, high dose seasonal 06/30/2014 influenza, injectable, quadrivalent, pre servative free 08/15/2018 08/18/2019 influenza, seasonal, injectable 08/20/2011 08/11/2012 08/07/2013 influenza, trivalent, adjuvanted 06/28/2017 pneumococcal conjugate PCV 13 pneumococcal polysaccharide PPV23 08/20/2011 Td (adult) preservative free 08/11/2012 Tdap 09/22/2017 zoster live Plan of Care Patient Instructions It was good to see you in the office to day for your Medicare Annual Wellness Visit. You have been provided some information on healthy nutrition, including a diet rich in fruits and vegetables, minimizing simple carbohydrates, salt, and saturated fats. I want to encourage regular cardi ovascular exercise such as walking at le ast 30 minutes daily, 5 times per week. Please remember to schedule any preventi ve health measures that we talked about today. You have also been provided education on fall prevention and community- based lifestyle interventions to help reduce health risks and promote healthy living in your Annual Wellness folder. Screening Recommendations 1. Vaccines Pneumonia: Influenza: . 2. Mammography Screenin. Colorectal Cancer Screenin. Annual Depression Screening 5. Annual Alcohol Screening 6. Annual Fall Risk Screening 7. Annual Health Risk Assessment Patient instructions: Monitor your temp erature periodically. Monitor home pulse ox (oxygen reading) throughout the day, when you are resting and when you are active. Record your temperature, blood pres sure, pulse and pulse ox readings to rev iew your provider during your next medical appointment. Recommend sleeping prone (on your abdomen). Recommend staying physically active. Take vitamin C 1000mg twi ce a day. Take Vitamin D 2000 IU once a day. Take Zinc 50 mg twice a day. Take Vitamin B complex one pill once a day. Take Mucinex as needed for cough. Take Tylenol as needed for fever. Strongly advise self-quarantining at home until receive further guidance from your medical provider. Notify any close contacts of your recent COVID-19 diagnosis, so that they can seek the appropriate testing and medica l care. Suggest reviewing the COVID-19 g uidance on the CDC website. SEEK URGENT MEDICAL ASSISTANCE IF DEVELOP CHEST PAIN, SHORTNESS OF BREATH, DIZZINESS, YOUR PULSE OX LESS THAN 92% OR WORSENING SYMTOMS . Self-Isolation guidance: given to COVI D positive patients and patients referred for COVID-19 testing. Recommend self-isolation at home until: 1) You are fever free for 24 hours and you have not taken a medication to lower your temperature f or 24 hours AND 2) It has been 10 days since the start of your symptoms AND 3) Your symptoms are improving. If your COVID-19 test is positive, it may be necessary to follow an extended home isolation ba sed as directed by your treating health care provider. Even, if your COVID-19 test is negative, it is necessary to follow the above isolation guidance. Self-Pawnee tion guidance: given to COVID positive p atients and patients referred for COVID- 19 testing. Recommend self-isolation at home until: 1) You are fever free for 24 hours and y ou have not taken a medication to lower your temperature for 24 hours AND 2) It has been 10 days since the start o f your symptoms AND 3) Your symptoms are improving. If your COVID-19 test is positive, it ma y be necessary to follow an extended home isolation based as directed by your treating health care provider. Even, if your COVID-19 test is negative, it is necessary to follow the above isolation guidance. Patient instructions: Monitor your temp erature periodically. Monitor home pulse ox (oxygen reading) throughout the day, when you are resting and when you are active. Record your temperature, blood pres sure, pulse and pulse ox readings to rev iew your provider during your next medical appointment. Recommend sleeping prone (on your abdomen). Recommend staying physically active. Take vitamin C 1000mg twi ce a day. Take Vitamin D 2000 IU once a day. Take Zinc 50 mg twice a day. Take Vitamin B complex one pill once a day. Take Mucinex as needed for cough. Take Tylenol as needed for fever. Strongly advise self-quarantining at home until receive further guidance from your medical provider. Notify any close contacts of your recent COVID-19 diagnosis, so that they can seek the appropriate testing and medica l care. Suggest reviewing the COVID-19 g uidance on the CDC website. SEEK URGENT MEDICAL ASSISTANCE IF DEVELOP CHEST PAIN, SHORTNESS OF BREATH, DIZZINESS, YOUR PULSE OX LESS THAN 92% OR WORSENING SYMTOMS . Self-Isolation guidance: given to COVI D positive patients and patients referred for COVID-19 testing. Recommend self-isolation at home until: 1) You are fever free for 24 hours and you have not taken a medication to lower your temperature f or 24 hours AND 2) It has been 10 days since the start of your symptoms AND 3) Your symptoms are improving. If your COVID-19 test is positive, it may be necessary to follow an extended home isolation ba sed as directed by your treating health care provider. Even, if your COVID-19 test is negative, it is necessary to follow the above isolation guidance. Self-Pawnee tion guidance: given to COVID positive p atients and patients referred for COVID- 19 testing. Recommend self-isolation at home until: 1) You are fever free for 24 hours and y ou have not taken a medication to lower your temperature for 24 hours AND 2) It has been 10 days since the start o f your symptoms AND 3) Your symptoms are improving. If your COVID-19 test is positive, it ma y be necessary to follow an extended home isolation based as directed by your treating health care provider. Even, if your COVID-19 test is negative, it is necessary to follow the above isolation guidance. Patient instructions: Monitor your temp erature periodically. Monitor home pulse ox (oxygen reading) throughout the day, when you are resting and when you are active. Record your temperature, blood pres sure, pulse and pulse ox readings to rev iew your provider during your next medical appointment. Recommend sleeping prone (on your abdomen). Recommend staying physically active. Take vitamin C 1000mg twi ce a day. Take Vitamin D 2000 IU once a day. Take Zinc 50 mg twice a day. Take Vitamin B complex one pill once a day. Take Mucinex as needed for cough. Take Tylenol as needed for fever. Strongly advise self-quarantining at home until receive further guidance from your medical provider. Notify any close contacts of your recent COVID-19 diagnosis, so that they can seek the appropriate testing and medica l care. Suggest reviewing the COVID-19 g uidance on the CDC website. SEEK URGENT MEDICAL ASSISTANCE IF DEVELOP CHEST PAIN, SHORTNESS OF BREATH, DIZZINESS, YOUR PULSE OX LESS THAN 92% OR WORSENING SYMTOMS . Self-Isolation guidance: given to COVI D positive patients and patients referred for COVID-19 testing. Recommend self-isolation at home until: 1) You are fever free for 24 hours and you have not taken a medication to lower your temperature f or 24 hours AND 2) It has been 10 days since the start of your symptoms AND 3) Your symptoms are improving. If your COVID-19 test is positive, it may be necessary to follow an extended home isolation ba sed as directed by your treating health care provider. Even, if your COVID-19 test is negative, it is necessary to follow the above isolation guidance. Self-Pawnee tion guidance: given to COVID positive p atients and patients referred for COVID- 19 testing. Recommend self-isolation at home until: 1) You are fever free for 24 hours and y ou have not taken a medication to lower your temperature for 24 hours AND 2) It has been 10 days since the start o f your symptoms AND 3) Your symptoms are improving. If your COVID-19 test is positive, it ma y be necessary to follow an extended home isolation based as directed by your treating health care provider. Even, if your COVID-19 test is negative, it is necessary to follow the above isolation guidance. Reminders Provider Appointments None recorded. ? ? Lab None recorded. ? ? Referral None recorded. ? ? Procedures None recorded. ? ? Surgeries None recorded. ? ? Imaging None recorded. ? ? Vitals 03/03/2022 03:00PM Telemedicine 20 Height Weight BMI Blood Pressure 5 ft 6 in 130 lbs 21 kg/m2 105/62 mm[Hg] 02/10/2022 11:20AM AWV 20 Height Weight BMI Blood Pressure 5 ft 6 in 130 lbs 21 kg/m2 102/63 mm[Hg] 01/12/2022 10:40AM Est Patient 20 Height Weight BMI Blood Pressure 5 ft 6 in 130 lbs 2 oz 21 kg/m2 107/64 mm[Hg] 12/01/2021 10:00AM Telemedicine 20 Height Weight BMI Blood Pressure 5 ft 6 in 126 lbs 16 oz 20.5 kg/m2 108/66 mm[Hg] 11/07/2021 10:00AM Telemedicine 20 Height Weight BMI Blood Pressure 5 ft 6 in 130 lbs 21 kg/m2 108/63 mm[Hg] 11/04/2021 02:00PM Telemedicine 20 Height Weight BMI 5 ft 6 in 130 lbs 21 kg/m2 10/31/2021 02:00PM Telemedicine 20 Height Weight BMI 5 ft 6 in 130 lbs 21 kg/m2 10/30/2021 02:00PM Telemedicine 20 Height Weight BMI 5 ft 6 in 130 lbs 21 kg/m2 01/01/2021 Height Weight BMI Blood Pressure 5 ft 5 in 164 lbs 6.4 oz 27.33 kg/m2 128/66 mm[Hg] 09/16/2020 Height Weight BMI Blood Pressure 5 ft 5 in 164 lbs 6.4 oz 27.33 kg/m2 111/70 mm[Hg] 08/15/2020 Height Weight BMI Blood Pressure 5 ft 5 in 164 lbs 6.4 oz 27.33 kg/m2 106/62 mm[Hg] 04/01/2020 Height Weight BMI 5 ft 5 in 164 lbs 6.4 oz 27.33 kg/m2 12/19/2019 Height Weight BMI Blood Pressure 5 ft 5 in 164 lbs 6.4 oz 27.33 kg/m2 104/70 mm[Hg] 11/02/2019 Height Weight BMI Blood Pressure 5 ft 5 in 164 lbs 6.4 oz 27.33 kg/m2 145/78 mm[Hg] 10/31/2019 Height Weight BMI Blood Pressure 5 ft 5 in 164 lbs 6.4 oz 27.33 kg/m2 140/72 mm[Hg] 10/24/2019 Height Weight BMI Blood Pressure 5 ft 5 in 164 lbs 6.4 oz 27.33 kg/m2 147/78 mm[Hg] 10/23/2019 Height Weight BMI Blood Pressure 5 ft 5 in 164 lbs 6.4 oz 27.33 kg/m2 150/84 mm[Hg] 10/02/2019 Height Weight BMI Blood Pressure 5 ft 5 in 164 lbs 6.4 oz 27.33 kg/m2 126/77 mm[Hg] 09/12/2019 Height Weight BMI Blood Pressure 5 ft 5 in 164 lbs 6.4 oz 27.33 kg/m2 126/72 mm[Hg] 03/16/2019 Height Weight BMI Blood Pressure 5 ft 5 in 161 lbs 3.2 oz 26.81 kg/m2 127/67 mm[Hg] 03/09/2019 Height Weight BMI Blood Pressure 5 ft 5 in 161 lbs 3.2 oz 26.81 kg/m2 104/60 mm[Hg] 09/12/2018 Height Weight BMI Blood Pressure 5 ft 5 in 161 lbs 3.2 oz 26.81 kg/m2 114/78 mm[Hg] 08/15/2018 Height Weight BMI Blood Pressure 5 ft 5 in 158 lbs 26.29 kg/m2 139/65 mm[Hg] 03/21/2018 Height Weight BMI Blood Pressure 5 ft 5 in 156 lbs 6.4 oz 26 kg/m2 107/75 mm[Hg]
[2022-07-28 14:49] LABS: Basophils Absolute Auto 0.03 K/uL (0.00-0.30); Basophils Percent Auto 0.6 % (0.0-3.0); Eosinophils Absolute Auto 0.08 K/uL (0.00-0.50); Eosinophils Percent Auto 1.5 % (0.0-7.0); Hematocrit 38.5 % (33.0-51.0); Hemoglobin* 12.4 gm/dL (12.0-16.0); Immature Granulocytes Abs Auto 0.01 K/uL (0.00-0.30); Lymphocytes Percent Auto 14.7 % (20-44); Mean Corpuscular HGB Conc 32 gm/dL (32-36); Mean Corpuscular Hemoglobin 37 pg (26-34); Mean Corpuscular Volume 115 fL (80-100); Monocytes Percent Auto 11.4 % (0.0-11.0); Neutrophils Absolute Auto 3.89 K/uL (1.7-7.0); Neutrophils Percent Auto 71.6 % (42.0-72.0); Platelet Count* 218 K/uL (140-440); RDW Coefficient of Variation % 16.5 % (11.5-15.5); Red Blood Count 3.35 m/uL (4.00-5.20); White Blood Count* 5.43 K/uL (4.50-11.00)
[2022-07-28 15:35] LABS: Slide Review Reflex No
[2022-07-29 12:29] LABS: Cancer Antigen 125 52 U/mL (<=38)
== END 2022-07-28 13:19 | disposition home or self-care (01) ==
LOC: NPINS 13:18
DX: C56.9 Malignant neoplasm of unspecified ovary (principal); Z13.29 Encounter for screening for other suspected endocrine disorder; Z13.6 Encounter for screening for cardiovascular disorders; I10 Essential (primary) hypertension
CPT/HCPCS: 36415; 80048; 80053; 80061; 80076; 83735; 84443; 85025; 86304